=== PATIENT | female | born 1930 | race Caucasian/White ===

== ENCOUNTER → 2016-04-05 | Outpatient (CLI) | payer MEDICARE ==
[~2016-04-05] MED LIST: ASP325T PO; CLD600T; GBPN300C PO; HCTZ12.5T GT; INSASP10V; INSU100V8; IRB150T; MTP50T PO; OLME1TAB22 PO; ONDA4TAB8 PO; PGLT30T; SERT50TA PO; SIMV40TA2 PO; SMV10T; SULF1TAB35 PO
--- NOTE | 2016-04-05 13:10 | Diagnostic Imaging Report ---
PROCEDURE: US Thyroid. TECHNIQUE: Multiple real-time grayscale images were obtained of the thyroid in various projections. INDICATION: Multinodular goiter. FINDINGS: The right thyroid lobe is 5.8 x 2.8 x 3.0 cm. The left lobe is 3.5 x 1.1 x 1.3 cm. The thyroid parenchyma is heterogenous. There is a calcified nodule measuring 0.7 x 0.6 x 0.7 cm in the mid left thyroid lobe without significant change from 08/15/2015 exam. There is suggestion of calcifications in the right thyroid lobe which is also heterogenous without definite discrete lesion. Overall, the right lobe is larger than the left. IMPRESSION: Enlarged thyroid gland, with the right lobe larger than the left side and with heterogenous parenchyma. A discrete nodule measuring 7 mm with calcification seen in the mid left lobe. Dictated by: Dictated on workstation # [id number]
== END ==
LOC: RAD 09:51
PROVIDERS: ATTEND Otolaryngology Otolaryngology/Facial Plastic Surgery
DX: E04.2 Nontoxic multinodular goiter (principal)
CPT/HCPCS: 76536

== ENCOUNTER → 2016-05-14 | Outpatient (CLI) | payer MEDICARE ==
--- OUTSIDE RECORDS SUMMARY | 2016-05-14 08:37 | XMS REPORT | Continuity of Care Document ---
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 FACC, ALI FACP CCDS Ot 272.4 HYPERLIPIDEMIA NEC/NOS 05/14/2016 YECENIA MCKEON FACC, ALI FACP CCDS Ot 401.9 HYPERTENSION NOS 05/14/2016 YECENIA MCKEON FACC, ALI FACP CCDS Ot 414.00 CORON ATHEROSCLER NOS TYPE VESSEL, NATIV 05/14/2016 YECENIA MCKEON FACC, ALI FACP CCDS Ot 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 Visit Date/Time Discharge Status Pt. Type Provider Facility Loc./Unit Complaint [id number] 05/30/2015 13:05:00 2015 14:29:00 DIS Outpatient YUNIOR JOYNER MD [facility] REHAB BACK PAIN [id number] 11/30/2014 10:53:00 2014 23:59:59 CLS Outpatient YUNIOR JOYNER MD [facility] RAD SCREENING [id number] 11/15/2014 11:32:00 2014 23:59:59 CLS Outpatient YUNIOR JOYNER MD [facility] RAD HAND PAIN,BACK PAIN,SCREENING [id number] 09/15/2014 08:41:00 2014 23:59:59 CLS Outpatient TOM MARQUES [facility] LAB CAD,HLP [id number] 06/21/2014 09:59:00 2014 23:59:59 CLS Outpatient DORIAN TORRES MD [facility] RAD MULTINODULAR GOITER [id number] 03/03/2014 09:07:00 2013 23:59:59 CLS Outpatient ELVISJUAN DAVIDTOM [facility] LAB HYPERLIPADEMIA [id number] 10/26/2013 14:53:00 2013 23:59:59 CLS Outpatient SIENA JOVEL MD [facility] RAD ROUTINE [id number] 10/15/2013 07:43:00 2013 23:59:59 CLS Outpatient YECENIA MCKEON FACVlad, CHEN GRAHAM CCDS [facility] CARD HTN,HLP,CAD [id number] 09/28/2013 08:48:00 2013 23:59:59 CLS Outpatient DORIAN TORRES MD [facility] RAD THYROID NODULE [id number] 09/02/2013 08:19:00 2013 23:59:59 CLS Outpatient SIENA JOVEL MD [facility] LAB UNSPECIFIED HYPERLIPIEDIMA, DIABETES MELLITUS [id number] 09/02/2013 08:12:00 2013 23:59:59 CLS Outpatient YECENIA MCKEON FACVlad, CHEN GRAHAM CCDS [facility] LAB RETINAL HEMORRHAGE,PATENT FORAMEN OVALE,PAROXYSMAL [id number] 01/13/2013 09:37:00 2012 23:59:59 CLS Outpatient DORIAN TORRES MD [facility] LAB FATIGUE,MONITORING GATE [id number] 01/08/2013 09:38:00 2012 23:59:59 CLS Outpatient CANDIE FRANCIS APRN [facility] RAD CALCIFIED RIGHT THYROID LOBE 5 MO RECHECK [id number] 11/06/2012 07:13:00 2012 23:59:59 CLS Outpatient YECENIA MCKEON FACVlad, CHEN GRAHAM CCDS [facility] RAD HX OF MOD CAD [id number] 10/22/2012 08:10:00 2012 23:59:59 CLS Outpatient TOM MARQUES [facility] LAB CAD,HYPERLIPIDEMIA,DM, STATIN [place] [id number] 10/13/2012 13:20:00 2012 23:59:59 CLS Outpatient SIENA JOVEL MD [facility] RAD SIX MONTH FOLLOW-UP [id number] 08/21/2012 10:11:00 2012 23:59:59 CLS Outpatient DORIAN TORRES MD [facility] RAD MULTI-NODULAR GOITER [id number] 07/29/2012 10:50:00 2012 23:59:59 CLS Outpatient DORIAN TORRES MD [facility] RAD RT LOBE THYROID NODULE [id number] 04/05/2016 09:51:00 ACT Outpatient DORIAN TORRES MD [facility] RAD MULTINODULAR GOITER [id number] 02/08/2016 11:48:00 ACT Outpatient ANJU FRANCIS APRN [facility] RAD SCREENING [id number] 12/28/2015 08:00:00 ACT Outpatient TOM MARQUES [facility] LAB CAD,HYPERLIPIDEMIA,CAROTID ARTERIAL DISEASE [id number] 11/15/2015 08:07:00 ACT Outpatient TOM MARQUES [facility] CARD CAD,HTN,HLP,MALAISE [id number] 08/15/2015 11:00:00 ACT Outpatient DORIAN TORRES MD [facility] RAD MULTINODULAR GOITER [id number] 04/04/2015 07:59:00 ACT Outpatient YECENIA MCKEON FACC, CHEN GRAHAM CCDS [facility] LAB CAD,HLP [id number] 03/03/2014 09:06:00 Document Registration [id number] 06/04/2012 23:40:00 Document Registration [id number] 04/24/2012 13:04:00 Document Registration [id number] 04/08/2012 09:46:00 Document Registration [id number] 03/26/2012 07:47:00 Document Registration [id number] 12/21/2011 10:26:00 Document Registration [id number] 09/24/2011 06:31:00 Document Registration [id number] 09/19/2011 07:23:00 Document Registration [id number] 04/30/2011 13:00:00 Document Registration [id number] 03/26/2011 09:06:00 Document Registration [id number] 02/28/2011 08:42:00 Document Registration [id number] 02/22/2011 13:30:00 Document Registration [id number] 01/01/2011 06:26:00 Document Registration [id number] 08/10/2010 07:35:00 Document Registration [id number] 03/01/2010 14:55:00 Document Registration [id number] 02/22/2010 08:13:00 Document Registration [id number] 08/11/2009 07:46:00 Document Registration [id number] 02/03/2009 07:38:00 Document Registration [id number] 01/13/2009 13:37:00 Document Registration [id number] 12/06/2008 11:16:00 Document Registration
[2016-05-14 08:45] LABS: BASOPHILS % (AUTO) 0 % (0-10); EOSINOPHILS # (AUTO) 0.1 10^3/uL (0.0-0.3); EOSINOPHILS % (AUTO) 1 % (0-10); LYMPHOCYTES # (AUTO) 0.9 X 10^3 (1.0-4.0); LYMPHOCYTES % (AUTO) 15 % (12-44); MEAN CORPUSCULAR HEMOGLOBIN 30 PG (25-34); MEAN CORPUSCULAR HGB CONC 34 G/DL (32-36); MEAN CORPUSCULAR VOLUME 89 FL (80-99); MEAN PLATELET VOLUME 9.3 FL (7.4-10.4); MONOCYTES # (AUTO) 0.4 X 10^3 (0.0-1.0); MONOCYTES % (AUTO) 7 % (0-12); NEUTROPHILS # (AUTO) 4.7 X 10^3 (1.8-7.8); NEUTROPHILS % (AUTO) 77 % (42-75); PLATELET COUNT 224 10^3/uL (130-400); RED BLOOD COUNT 4.28 10^6/uL (4.35-5.85); RED CELL DISTRIBUTION WIDTH 12.4 % (10.0-14.5); WHITE BLOOD COUNT 6.1 10^3/uL (4.3-11.0)
[2016-05-14 09:08] LABS: ALANINE AMINOTRANSFERASE 18 U/L (0-55); ALBUMIN 4.1 G/DL (3.2-4.5); ANION GAP 9 MMOL/L (5-14); ASPARTATE AMINO TRANSFERASE 22 U/L (5-34); BILIRUBIN,TOTAL 0.6 MG/DL (0.1-1.0); BLOOD UREA NITROGEN 16 MG/DL (7-18); BUN/CREATININE RATIO 21; CALCIUM 9.2 MG/DL (8.5-10.1); CARBON DIOXIDE 27 MMOL/L (21-32); CHLORIDE 102 MMOL/L (98-107); CHOLESTEROL 172 MG/DL (< 200); CREATININE SERUM 0.78 MG/DL (0.60-1.30); DIRECT LDL 92 MG/DL (1-129); GFR ESTIMATED > 60; GLUCOSE 227 MG/DL (70-105); POTASSIUM 4.5 MMOL/L (3.6-5.0); SODIUM 138 MMOL/L (135-145); TOTAL PROTEIN 6.5 G/DL (6.4-8.2); TRIGLYCERIDES 83 MG/DL (<150); VLDL CHOLESTEROL 17 MG/DL (5-40)
== END ==
LOC: LAB 08:32
PROVIDERS: ATTEND Family Medicine
DX: I10 Essential (primary) hypertension (principal); E11.65 Type 2 diabetes mellitus with hyperglycemia; E03.9 Hypothyroidism, unspecified
CPT/HCPCS: 36415; 80053; 80061; 83036; 84443; 85025

== ENCOUNTER 2016-06-18 03:05 | Emergency (ER) | payer MEDICARE ==
[~2016-06-18] VITALS: Ht 157.5 cm; Wt 54.4 kg
[~2016-06-18 03:05] MED LIST changes: -ONDA4TAB8 PO; -SULF1TAB35 PO
--- NOTE | 2016-06-18 03:15 | ED General ---
General Stated Complaint: BS Source of Information: Patient Exam Limitations: No Limitations History of Present Illness Time Seen by Provider: 03:11 Initial Comments Patient presents to the ER by EMS after a complaint of waking up at 2 in the morning to check her blood sugar and noticed it was 80. She tried taking some orange juice and then had nausea and threw up. She was unable to keep down arthur crackers and peanut butter either. She called EMS they checked her blood sugar found to be 69. The patient was also feeling some pain in her left ankle from a fall while walking down the steps of her son's house at [employer] dinner yesterday afternoon. Patient's nausea is resolved her pain is under control and she feels she is doing better. She remarks when she fell she did not have any loss consciousness nor hit her head. Allergies and Home Medications Allergies Coded Allergies: NATDavid Known Allergies (Verified Allergy, Unknown, 08/20/06) Home Medications Aspirin 325 Mg Tablet, 81 MG PO EVERY OTHER DAY, (Reported) Calcium Carbonate/Vitamin D3 1 Tab Tablet, (Reported) Gabapentin 300 Mg Cap, 100 MG PO DAILY, (Reported) Hydrochlorothiazide 12.5 Mg Cap, 12.5 MG GT, (Reported) Insulin Glargine,Hum.rec.anlog 100 U/Ml Vial, 18 UNIT MORNING, (Reported) Insulin Human Lispro 100 U/Ml Vial, (Reported) Metoprolol Tartrate 50 Mg Tablet, 1 EACH PO BID, (Reported) Olmesartn/Hydrochlorothiazide 1 Tab Tablet, 1 TAB PO, (Reported) Sertraline Hcl 50 Mg Tablet, 0 PO DAILY, (Reported) Simvastatin 40 Mg Tablet, 40 MG PO BID, (Reported) Constitutional: No chills, No diaphoresis, No fever, No malaise EENTM: No ear discharge, No eye pain Respiratory: No cough, No short of breath Cardiovascular: No chest pain, No edema Gastrointestinal: No abdominal pain, No constipation, No nausea Genitourinary: dysuria, No frequency Musculoskeletal: joint pain (left foot), No joint swelling Skin: No pruritus, No rash Psychiatric/Neurological: Denies Headache, Denies Numbness, Paresthesia (Hx Peripheral Neuropathy) Past Vvsmwzc-Oxoetm-Xmdvwo Hx Patient Social History Alcohol Use: Denies Use Recreational Drug Use: No Smoking Status: Never a Smoker Immunizations Up To Date Tetanus Booster (TDap): Less than 5yrs Date of Pneumonia Vaccine: Dec 06, 2011 Date of Influenza Vaccine: Dec 06, 2011 Surgeries HX Surgeries: Yes Respiratory Hx Respiratory Disorders: No Cardiovascular Hx Cardiac Disorders: Yes Neurological Hx Neurological Disorders: No Genitourinary Hx Genitourinary Disorders: No Gastrointestinal Hx Gastrointestinal Disorders: No Musculoskeletal Hx Musculoskeletal Disorders: No Musculoskeletal Disorders: Chronic Back Pain Endocrine Hx Endocrine Disorders: Yes Endocrine Disorders: Diabetes, Insulin dep HEENT HX ENT Disorders: Yes (RETINOPATHY, 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 Hearing Impairment: Bilateral Hearing Aide Cancer Hx Cancer: No Psychosocial Hx Psychiatric Problems: No Behavioral Health Disorders: Anxiety, Depression Integumentary HX Skin/Integumentary Disorder: No Blood Transfusions Hx Blood Disorders: Yes (ANEMIA) Adverse Reaction to a Blood Tr: No Physical Exam Vital Signs Vital Sign - Last 12Hours 06/18/16 03:05 Temp 98.6 Pulse 68 Resp 20 B/P (MAP) 133/69 Pulse Ox 99 O2 Delivery Room Air Capillary Refill : General Appearance: No Apparent Distress, WD/WN Eyes: Bilateral Eye EOMI, Bilateral Eye Normal Inspection HEENT: PERRL/EOMI, Normal ENT Inspection, Pharynx Normal Neck: Non Tender, Supple Respiratory: Chest Non Tender, Lungs Clear, Normal Breath Sounds Cardiovascular: Regular Rate, Rhythm, No Edema Gastrointestinal: Normal Bowel Sounds, No Organomegaly Back: No CVA Tenderness, No Vertebral Tenderness Extremity: Normal Capillary Refill, Normal Inspection, No Pedal Edema, Other ( tenderness at the left ankle) Neurologic/Psychiatric: Alert, Oriented x3 Skin: Normal Color, Warm/Dry Progress/Results/Core Measures Results/Orders Lab Results Laboratory Tests Test 06/18/16 03:11 06/18/16 03:20 Range/Units White Blood Count 9.5 4.3-11.0 10^3/uL Red Blood Count 4.52 4.35-5.85 10^6/uL Hemoglobin 13.6 11.5-16.0 G/DL Hematocrit 40 35-52 % Mean Corpuscular Volume 88 80-99 FL Mean Corpuscular Hemoglobin 30 25-34 PG Mean Corpuscular Hemoglobin Concent 34 32-36 G/DL Red Cell Distribution Width 12.3 10.0-14.5 % Platelet Count 218 130-400 10^3/uL Mean Platelet Volume 9.7 7.4-10.4 FL Neutrophils (%) (Auto) 84 H 42-75 % Lymphocytes (%) (Auto) 7 L 12-44 % Monocytes (%) (Auto) 7 0-12 % Eosinophils (%) (Auto) 1 0-10 % Basophils (%) (Auto) 0 0-10 % Neutrophils # (Auto) 8.0 H 1.8-7.8 X 10^3 Lymphocytes # (Auto) 0.7 L 1.0-4.0 X 10^3 Monocytes # (Auto) 0.7 0.0-1.0 X 10^3 Eosinophils # (Auto) 0.1 0.0-0.3 10^3/uL Basophils # (Auto) 0.0 0.0-0.1 10^3/uL Neutrophils % (Manual) 89 % Lymphocytes % (Manual) 5 % Monocytes % (Manual) 4 % Eosinophils % (Manual) 2 % Basophils % (Manual) 0 % Band Neutrophils 0 % Blood Morphology Comment NORMAL Sodium Level 140 135-145 MMOL/L Potassium Level 4.2 3.6-5.0 MMOL/L Chloride Level 103 98-107 MMOL/L Carbon Dioxide Level 25 21-32 MMOL/L Anion Gap 12 5-14 MMOL/L Blood Urea Nitrogen 21 H 7-18 MG/DL Creatinine 0.84 0.60-1.30 MG/DL Estimat Glomerular Filtration Rate > 60 BUN/Creatinine Ratio 25 Glucose Level 87 70-105 MG/DL Calcium Level 9.3 8.5-10.1 MG/DL Total Bilirubin 0.6 0.1-1.0 MG/DL Aspartate Amino Transf (AST/SGOT) 21 5-34 U/L Alanine Aminotransferase (ALT/SGPT) 15 0-55 U/L Alkaline Phosphatase 83 40-136 U/L Total Protein 6.9 6.4-8.2 G/DL Albumin 4.4 3.2-4.5 G/DL Urine Color YELLOW Urine Clarity CLEAR Urine pH 7 5-9 Urine Specific [place] 1.005 L 1.016-1.022 Urine Protein 1+ H NEGATIVE Urine Glucose (UA) NEGATIVE NEGATIVE Urine Ketones NEGATIVE NEGATIVE Urine Nitrite NEGATIVE NEGATIVE Urine Bilirubin NEGATIVE NEGATIVE Urine Urobilinogen NORMAL NORMAL MG/DL Urine Leukocyte Esterase 3+ H NEGATIVE Urine RBC (Auto) NEGATIVE NEGATIVE Urine RBC NONE /HPF Urine WBC 5-10 H /HPF Urine Squamous Epithelial Cells RARE /HPF Urine Crystals NONE /LPF Urine Bacteria TRACE /HPF Urine Casts NONE /LPF Urine Mucus SMALL H /LPF Urine Culture Indicated YES My Orders Orders - YOUSIF BLANCO Cbc With Automated Diff (06/18/16 03:15) Comprehensive Metabolic Panel (06/18/16 03:15) Ua Culture If Indicated (06/18/16 03:15) Ankle, Left, 3 Views (06/18/16 03:15) Accucheck Stat ONCE (06/18/16 03:17) Manual Differential (06/18/16 03:11) Urine Culture (06/18/16 03:20) Vital Signs/I&O Vital Sign - Last 12Hours 06/18/16 03:05 Temp 98.6 Pulse 68 Resp 20 B/P (MAP) 133/69 Pulse Ox 99 O2 Delivery Room Air Progress Note : Time: 03:56 Progress Note X-ray of the left ankle unremarkable. She does appear to have a UTI that may be the cause of her blood glucose lability. we will treat her appropriately. Departure Impression Impression: Primary Impression: UTI (urinary tract infection) Qualified Codes: N30.00 - Acute cystitis without hematuria Additional Impression: Left ankle pain Qualified Codes: M25.572 - Pain in left ankle and joints of left foot Disposition: 01 HOME, SELF-CARE Condition: Stable Departure-Patient Inst. Decision time for Depature: 03:57 Referrals: YUNIOR JOYNER MD (PCP/Family) Primary Care Physician Add. Discharge Instructions: Your blood sugars may be difficult to control when you have a urinary tract infection. We will start you on an antibiotic that you should take to completion. You should follow up with your physician in one to 2 weeks or sooner as necessary if you have new or concerning symptoms. Her ankle does not appear to be fractured on the x-ray but however he may have a strain/sprain which will take weeks to heal. You should use rest, ice for 20 minutes 4 times a day as needed, compression dressing and elevate above the level of your heart when not using your ankle. Scripts Sulfamethoxazole/Trimethoprim (Bactrim Ds Tablet) 1 Each Tablet 1 EACH PO BID for 7 Days, #14 TAB 0 Refills Prov: YOUSIF BLANCO 06/18/16 Copy Copies To 1: YUNIOR JOYNER MD, TITUS J Jun 18, 2016 03:15
[2016-06-18 03:23] LABS: BASOPHILS % (AUTO) 0 % (0-10); EOSINOPHILS # (AUTO) 0.1 10^3/uL (0.0-0.3); EOSINOPHILS % (AUTO) 1 % (0-10); LYMPHOCYTES # (AUTO) 0.7 X 10^3 (1.0-4.0); LYMPHOCYTES % (AUTO) 7 % (12-44); MEAN CORPUSCULAR HEMOGLOBIN 30 PG (25-34); MEAN CORPUSCULAR HGB CONC 34 G/DL (32-36); MEAN CORPUSCULAR VOLUME 88 FL (80-99); MEAN PLATELET VOLUME 9.7 FL (7.4-10.4); MONOCYTES # (AUTO) 0.7 X 10^3 (0.0-1.0); MONOCYTES % (AUTO) 7 % (0-12); NEUTROPHILS % (AUTO) 84 % (42-75); PLATELET COUNT 218 10^3/uL (130-400); RED BLOOD COUNT 4.52 10^6/uL (4.35-5.85); RED CELL DISTRIBUTION WIDTH 12.3 % (10.0-14.5); WHITE BLOOD COUNT 9.5 10^3/uL (4.3-11.0)
[2016-06-18 03:28] LABS: BILIRUBIN,URINE NEGATIVE (NEGATIVE); KETONES,URINE NEGATIVE (NEGATIVE); LEUKOCYTE ESTERASE ,URINE 3+ (NEGATIVE); NITRITE,URINE NEGATIVE (NEGATIVE); PH,URINE 7 (5-9); PROTEIN,URINE 1+ (NEGATIVE); UROBILINOGEN,URINE NORMAL (NORMAL)
[2016-06-18 03:35] LABS: SQUAMOUS EPITHELIAL CELL,UR RARE /HPF
[2016-06-18 03:38] LABS: ALANINE AMINOTRANSFERASE 15 U/L (0-55); ALBUMIN 4.4 G/DL (3.2-4.5); ANION GAP 12 MMOL/L (5-14); ASPARTATE AMINO TRANSFERASE 21 U/L (5-34); BILIRUBIN,TOTAL 0.6 MG/DL (0.1-1.0); BLOOD UREA NITROGEN 21 MG/DL (7-18); BUN/CREATININE RATIO 25; CALCIUM 9.3 MG/DL (8.5-10.1); CARBON DIOXIDE 25 MMOL/L (21-32); CHLORIDE 103 MMOL/L (98-107); CREATININE SERUM 0.84 MG/DL (0.60-1.30); GFR ESTIMATED > 60; GLUCOSE 87 MG/DL (70-105); POTASSIUM 4.2 MMOL/L (3.6-5.0); SODIUM 140 MMOL/L (135-145); TOTAL PROTEIN 6.9 G/DL (6.4-8.2)
[2016-06-18 03:40] LABS: BAND NEUTROPHILS 0 %; BASOPHILS % (MANUAL) 0 %; EOSINOPHILS % (MANUAL) 2 %; LYMPHOCYTES % (MANUAL) 5 %; NEUTROPHILS % (MANUAL) 89 %
[2016-06-18] MEDS ORDERED: SULF1TAB35 PO (04:07)
[2016-06-18] MEDS ORDERED: RX-TRIMETH/SULFA. 160-800 MG (BACTRIM DS) TAB PPK#2 PO ONE (04:15)
[2016-06-18] MEDS ORDERED: RX-ONDANSETRON 4 MG ODT (ZOFRAN) PPK #4 ONE (04:20)
[2016-06-18] MEDS ORDERED: RX-ONDANSETRON 4 MG ODT (ZOFRAN) PPK #4 PO STA (04:22)
[2016-06-18] MEDS ORDERED: ONDANSETRON 4 MG/2 ML (SDV) Z0FRAN ONE (04:27)
[2016-06-18] MEDS ORDERED: ONDANSETRON 4 MG/2 ML (SDV) Z0FRAN IM ONE (04:30)
[2016-06-18 04:55] VITALS: BP 107/46
[2016-06-18] MEDS ORDERED: ONDA4TAB8 PO (05:00)
--- NOTE | 2016-06-18 07:50 | Diagnostic Imaging Report ---
INDICATION: Twisting injury with ankle pain. FINDINGS: There is no disruption of the ankle mortise. No fracture or dislocation identified. No focal soft tissue swelling could be discerned. IMPRESSION: No acute abnormality radiographically apparent. Dictated by: Dictated on workstation # [id number]
== END 2016-06-18 04:55 | disposition home or self-care (01) ==
LOC: EDUNIT# 03:07 → ER 03:09
DX: E11.649 Type 2 diabetes mellitus with hypoglycemia without coma (principal); S99.912A Unspecified injury of left ankle, initial encounter; Z79.4 Long term (current) use of insulin; Z79.82 Long term (current) use of aspirin; W10.9XXA Fall (on) (from) unspecified stairs and steps, initial encounter; Y92.009 Unspecified place in unspecified non-institutional (private) residence as the place of occurrence of the external cause; Y99.8 Other external cause status
CPT/HCPCS: 36415; 73610; 80053; 81000; 82962; 85007; 85027; 87077; 87088; 87186; 96372; 99283

== ENCOUNTER → 2016-10-01 | Outpatient (CLI) | payer MEDICARE ==
[~2016-10-01] MED LIST changes: +ONDA4TAB8 PO; +SULF1TAB35 PO
--- NOTE | 2016-10-01 15:14 | Diagnostic Imaging Report ---
INDICATION: Cough for two months, no improvement with antibiotics. DISCUSSION: Two views of the chest were obtained, comparison 06/04/2012. The lungs remain hyperinflated consistent underlying COPD. No focal consolidation, pleural fluid, or pneumothorax. Age-related degenerative changes are noted throughout the thoracic spine. Stable normal heart size. IMPRESSION: 1. Stable changes of chronic lung disease. Dictated by: Dictated on workstation # [id number]
== END ==
LOC: RAD 14:43
PROVIDERS: ATTEND Nurse Practitioner Family
DX: J98.4 Other disorders of lung (principal)
CPT/HCPCS: 71020

== ENCOUNTER 2016-10-22 10:26 | Outpatient (RCR) | payer MEDICARE | END 2016-12-01 00:46 | disposition home or self-care (01) | LOC: DSME 10:26 | PROVIDERS: ATTEND Family Medicine | DX: E10.9 Type 1 diabetes mellitus without complications (principal); I10 Essential (primary) hypertension ==

== ENCOUNTER → 2016-10-22 | Outpatient (CLI) | payer MEDICARE ==
--- NOTE | 2016-10-22 13:19 | Diagnostic Imaging Report ---
PROCEDURE: US Thyroid. TECHNIQUE: Multiple real-time grayscale images were obtained of the thyroid in various projections. INDICATION: Thyroid nodule followup. COMPARISON: 04/05/2016. FINDINGS: The size and echogenicity of the thyroid lobes is stable and unchanged. The right thyroid lobe is slightly larger compared to the left. The isthmus is unremarkable. There is no new lesion identified. Partially calcified nodule is seen in the upper left thyroid lobe measuring 7 mm. There is no change. IMPRESSION: Stable thyroid nodule. No interval change identified. Dictated by: Dictated on workstation # [id number]
== END ==
LOC: RAD 10:27
PROVIDERS: ATTEND Family Medicine
DX: E04.1 Nontoxic single thyroid nodule (principal)
CPT/HCPCS: 76536

== ENCOUNTER 2017-01-13 20:55 | Emergency (ER) | payer MEDICARE ==
[~2017-01-13] VITALS: Ht 167.6 cm; Wt 72.6 kg
[2017-01-13 21:10] LABS: BASOPHILS % (AUTO) 0 % (0-10); EOSINOPHILS # (AUTO) 0.1 10^3/uL (0.0-0.3); EOSINOPHILS % (AUTO) 2 % (0-10); LYMPHOCYTES # (AUTO) 1.2 X 10^3 (1.0-4.0); LYMPHOCYTES % (AUTO) 29 % (12-44); MEAN CORPUSCULAR HEMOGLOBIN 31 PG (25-34); MEAN CORPUSCULAR HGB CONC 34 G/DL (32-36); MEAN CORPUSCULAR VOLUME 91 FL (80-99); MEAN PLATELET VOLUME 9.5 FL (7.4-10.4); MONOCYTES # (AUTO) 0.6 X 10^3 (0.0-1.0); MONOCYTES % (AUTO) 13 % (0-12); NEUTROPHILS # (AUTO) 2.4 X 10^3 (1.8-7.8); NEUTROPHILS % (AUTO) 56 % (42-75); PLATELET COUNT 190 10^3/uL (130-400); RED BLOOD COUNT 3.69 10^6/uL (4.35-5.85); WHITE BLOOD COUNT 4.3 10^3/uL (4.3-11.0)
[2017-01-13 21:40] LABS: ALANINE AMINOTRANSFERASE 19 U/L (0-55); ALBUMIN 3.7 GM/DL (3.2-4.5); ANION GAP 10 MMOL/L (5-14); ASPARTATE AMINO TRANSFERASE 25 U/L (5-34); BILIRUBIN,TOTAL 0.3 MG/DL (0.1-1.0); BLOOD UREA NITROGEN 27 MG/DL (7-18); BUN/CREATININE RATIO 32; CALCIUM 8.9 MG/DL (8.5-10.1); CARBON DIOXIDE 26 MMOL/L (21-32); CHLORIDE 102 MMOL/L (98-107); CREATININE SERUM 0.84 MG/DL (0.60-1.30); GFR ESTIMATED > 60; GLUCOSE 184 MG/DL (70-105); POTASSIUM 3.5 MMOL/L (3.6-5.0); SODIUM 138 MMOL/L (135-145)
[2017-01-13 22:59] LABS: BILIRUBIN,URINE NEGATIVE (NEGATIVE); KETONES,URINE NEGATIVE (NEGATIVE); LEUKOCYTE ESTERASE ,URINE 1+ (NEGATIVE); NITRITE,URINE NEGATIVE (NEGATIVE); PH,URINE 6.5 (5-9); PROTEIN,URINE 1+ (NEGATIVE); UROBILINOGEN,URINE 1 MG/DL (NORMAL)
--- NOTE | 2017-01-13 23:13 | ED General ---
General Chief Complaint: Glucose Problems Stated Complaint: BS Nursing Triage Note: to ER by [facility] from home with reports of low blood sugar. Patient reports that her blood sugar before she ate dinner was 60, so she did not take her insulin until after she ate. Patient reports that she ate a good sized meal , and then took her insulin like she has been instructed. Patient reports that she has not felt well all day, and has been tired. 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 EMS reports blood sugar improved from 27 to 271 with D50. Patient is now alert and oriented on arrival. Patient report generally feeling tired lately. She has had a mild cough but no fevers. Allergies and Home Medications Allergies Coded Allergies: NATANo Known Allergies (Verified Allergy, Unknown, 08/20/06) Home Medications Aspirin 325 Mg Tablet, 81 MG PO EVERY OTHER DAY, (Reported) Calcium Carbonate/Vitamin D3 1 Tab Tablet, (Reported) Gabapentin 300 Mg Cap, 100 MG PO DAILY, (Reported) Hydrochlorothiazide 12.5 Mg Cap, 12.5 MG GT, (Reported) Insulin Glargine,Hum.rec.anlog 100 U/Ml Vial, 18 UNIT MORNING, (Reported) Insulin Human Lispro 100 U/Ml Vial, (Reported) Metoprolol Tartrate 50 Mg Tablet, 1 EACH PO BID, (Reported) Olmesartn/Hydrochlorothiazide 1 Tab Tablet, 1 TAB PO, (Reported) Ondansetron 4 Mg Tab.rapdis, 4 MG PO Q6H PRN for NAUSEA/VOMITING-1ST LINE, #20 Ref 0 Prescribed by: YOUSIF BLANCO on 06/18/16 0500 Sertraline Hcl 50 Mg Tablet, 0 PO DAILY, (Reported) Simvastatin 40 Mg Tablet, 40 MG PO BID, (Reported) Sulfamethoxazole/Trimethoprim 1 Each Tablet, 1 EACH PO BID for 7 Days, #14 Ref 0 Prescribed by: YOUSIF BLANCO on 06/18/16 0407 Constitutional: see HPI EENTM: no symptoms reported Respiratory: see HPI Cardiovascular: no symptoms reported Gastrointestinal: no symptoms reported Genitourinary: no symptoms reported Musculoskeletal: no symptoms reported Skin: no symptoms reported Psychiatric/Neurological: No Symptoms Reported Hematologic/Lymphatic: No Symptoms Reported Immunological/Allergic: no symptoms reported Past Obbkhnb-Dhazye-Mrgrtd Hx Patient Social History Alcohol Use: Denies Use Recreational Drug Use: No Smoking Status: Never a Smoker 2nd Hand Smoke Exposure: No Recent Foreign Travel: No Contact w/Someone Who Travel: No Recent Infectious Disease Expo: No Recent Hopitalizations: No Physical Abuse: No Sexual Abuse: No Mistreated: No Fear: No Immunizations Up To Date Tetanus Booster (TDap): Less than 5yrs PED Vaccines UTD: Yes Date of Pneumonia Vaccine: Dec 06, 2011 Date of Influenza Vaccine: Dec 06, 2011 Surgeries History of Surgeries: Yes (APPY) Respiratory History of Respiratory Disorde: No Cardiovascular History of Cardiac Disorders: Yes Cardiac Disorders: Coronary Artery Disease, Hypertension Neurological History of Neurological Disord: No Genitourinary History of Genitourinary Disor: No Gastrointestinal History of Gastrointestinal Di: No Musculoskeletal History of Musculoskeletal Dis: Yes Musculoskeletal Disorders: Chronic Back Pain Endocrine History of Endocrine Disorders: Yes Endocrine Disorders: Diabetes, Insulin dep HEENT History of HEENT Disorders: Yes Loss of Vision: Left Hearing Impairment: Bilateral Hearing Aide Cancer History of Cancer: No Psychosocial History of Psychiatric Problem: No Behavioral Health Disorders: Anxiety, Depression Suicide Risk Score: 0 Integumentary History of Skin or Integumenta: No Blood Transfusions History of Blood Disorders: Yes (ANEMIA) Adverse Reaction to a Blood Tr: No Physical Exam Vital Signs Vital Sign - Last 12Hours 01/13/17 21:00 Temp 98.4 Pulse 55 Resp 16 B/P (MAP) 154/68 Pulse Ox 98 O2 Delivery Room Air Capillary Refill : Less Than 3 Seconds General Appearance: No Apparent Distress, WD/WN HEENT: PERRL/EOMI, Normal ENT Inspection, Pharynx Normal Neck: Normal Inspection Respiratory: Lungs Clear, Normal Breath Sounds, No Accessory Muscle Use, No Respiratory Distress Cardiovascular: Regular Rate, Rhythm, No Edema, No Murmur Gastrointestinal: Normal Bowel Sounds, Non Tender, Soft Extremity: Normal Capillary Refill, Normal Inspection, No Pedal Edema Neurologic/Psychiatric: Alert, Oriented x3, No Motor/Sensory Deficits, Normal 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, 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 Skin: Normal Color, Warm/Dry Progress/Results/Core Measures Results/Orders Lab Results Laboratory Tests Test 01/13/17 21:00 01/13/17 21:47 01/13/17 22:50 01/13/17 23:06 Range/Units White Blood Count 4.3 4.3-11.0 10^3/uL Red Blood Count 3.69 L 4.35-5.85 10^6/uL Hemoglobin 11.4 L 11.5-16.0 G/DL Hematocrit 34 L 35-52 % Mean Corpuscular Volume 91 80-99 FL Mean Corpuscular Hemoglobin 31 25-34 PG Mean Corpuscular Hemoglobin Concent 34 32-36 G/DL Red Cell Distribution Width 12.0 10.0-14.5 % Platelet Count 190 130-400 10^3/uL Mean Platelet Volume 9.5 7.4-10.4 FL Neutrophils (%) (Auto) 56 42-75 % Lymphocytes (%) (Auto) 29 12-44 % Monocytes (%) (Auto) 13 H 0-12 % Eosinophils (%) (Auto) 2 0-10 % Basophils (%) (Auto) 0 0-10 % Neutrophils # (Auto) 2.4 1.8-7.8 X 10^3 Lymphocytes # (Auto) 1.2 1.0-4.0 X 10^3 Monocytes # (Auto) 0.6 0.0-1.0 X 10^3 Eosinophils # (Auto) 0.1 0.0-0.3 10^3/uL Basophils # (Auto) 0.0 0.0-0.1 10^3/uL Sodium Level 138 135-145 MMOL/L Potassium Level 3.5 L 3.6-5.0 MMOL/L Chloride Level 102 98-107 MMOL/L Carbon Dioxide Level 26 21-32 MMOL/L Anion Gap 10 5-14 MMOL/L Blood Urea Nitrogen 27 H 7-18 MG/DL Creatinine 0.84 0.60-1.30 MG/DL Estimat Glomerular Filtration Rate > 60 BUN/Creatinine Ratio 32 Glucose Level 184 H 70-105 MG/DL Calcium Level 8.9 8.5-10.1 MG/DL Total Bilirubin 0.3 0.1-1.0 MG/DL Aspartate Amino Transf (AST/SGOT) 25 5-34 U/L Alanine Aminotransferase (ALT/SGPT) 19 0-55 U/L Alkaline Phosphatase 75 40-136 U/L Total Protein 6.0 L 6.4-8.2 GM/DL Albumin 3.7 3.2-4.5 GM/DL Glucometer 132 H 183 H 70-110 MG/DL Urine Color YELLOW Urine Clarity CLEAR Urine pH 6.5 5-9 Urine Specific [place] 1.010 L 1.016-1.022 Urine Protein 1+ H NEGATIVE Urine Glucose (UA) 2+ H NEGATIVE Urine Ketones NEGATIVE NEGATIVE Urine Nitrite NEGATIVE NEGATIVE Urine Bilirubin NEGATIVE NEGATIVE Urine Urobilinogen 1 NORMAL MG/DL Urine Leukocyte Esterase 1+ H NEGATIVE Urine RBC (Auto) NEGATIVE NEGATIVE Urine RBC NONE /HPF Urine WBC 2-5 /HPF Urine Crystals NONE /LPF Urine Bacteria NEGATIVE /HPF Urine Casts NONE /LPF Urine Mucus NEGATIVE /LPF Urine Culture Indicated NO My Orders Orders - ATUL BERGMAN MD Cbc With Automated Diff (01/13/17 21:03) Comprehensive Metabolic Panel (01/13/17 21:03) Ua Culture If Indicated (01/13/17 21:03) Chest 1 View, Ap/Pa Only (01/13/17 22:15) Vital Signs/I&O Vital Sign - Last 12Hours 01/13/17 01/13/17 21:00 23:18 Temp 98.4 98.4 Pulse 55 53 Resp 16 18 B/P (MAP) 154/68 Pulse Ox 98 100 O2 Delivery Room Air Room Air Blood Pressure Mean: 96 Point of Care Testing Finger Stick Blood Glucose: 183 Blood Glucose Action Taken: DR AND RN NOTIFIED Progress Note : Progress Note Patient remained alert and oriented throughout her ER stay. Blood sugar remained stable. She was able to eat a partial medial and she was discharged into the care of her son. Diagnostic Imaging Diagonstic Imaging: Xray Plain Films/CT/US/NM/MRI: chest Comments Fibrotic and/or calcific appearance to the right lower lung, a little worse than prior. X-ray viewed by me and compared with prior. Report not yet available. Departure Impression Impression: Primary Impression: Hypoglycemia associated with diabetes Additional Impression: Weakness Disposition: 01 HOME, SELF-CARE Condition: Improved Departure-Patient Inst. Decision time for Depature: 23:12 Referrals: YUNIOR RECINOS MD (PCP/Family) Primary Care Physician Patient Instructions: Diabetes Type 2 (DC) Add. Discharge Instructions: Follow-up with Dr. RECINOS as soon as possible. Check your blood sugar fasting in the mornings and 2 hours after each meal. Share these blood sugars with Dr. Recinos at your follow-up appointment. Call Dr. RECINOS or return to the emergency room if you have further problems with your blood sugars or any other worsening problems. Eat a well-balanced diet with at least 3 meals per day. Discussed your poor appetite with Dr. Recinos. All discharge instructions reviewed with patient and/or family. Voiced understanding. Copy Copies To 1: YUNIOR RECINOS MD, JOSHUA T MD Jan 13, 2017 23:13
[2017-01-13 23:18] VITALS: BP 152/66
--- NOTE | 2017-01-14 05:36 | Diagnostic Imaging Report ---
INDICATION: Hypoglycemia. COMPARISON: 10/01/2016 FINDINGS: Single frontal radiographic view of the chest was obtained and demonstrates normal cardiac silhouette and pulmonary vasculature. There is 6 mm micronodular opacity within the right upper lung field. Otherwise, lungs are clear. There is no focal consolidation, large effusion, nor pneumothorax. Bony structures show no gross acute abnormalities. IMPRESSION: 1. No evidence of failure or focal infiltrate. 2. Micronodular opacity within the right upper lung field. Further characterization with CT chest is recommended. Dictated by: Dictated on workstation # [id number]
== END 2017-01-13 23:18 | disposition home or self-care (01) ==
LOC: EDUNIT# 20:55 → ER 20:57
DX: E11.649 Type 2 diabetes mellitus with hypoglycemia without coma (principal); I25.10 Atherosclerotic heart disease of native coronary artery without angina pectoris; I10 Essential (primary) hypertension; E11.9 Type 2 diabetes mellitus without complications; F41.9 Anxiety disorder, unspecified; F32.9 Major depressive disorder, single episode, unspecified; Z79.82 Long term (current) use of aspirin; Z79.4 Long term (current) use of insulin
CPT/HCPCS: 36415; 71010; 80053; 81000; 82962; 85025; 99283

== ENCOUNTER 2017-03-31 10:13 | Observation (INO) | payer MEDICARE ==
[~2017-03-31] VITALS: Ht 157.5 cm; Wt 56.7 kg
[2017-03-31] MEDS ORDERED: TRAM50TA2 PO (10:35)
[2017-03-31] MEDS ORDERED: NITR100C10 PO (10:35)
--- OUTSIDE RECORDS SUMMARY | 2017-03-31 11:53 | XMS REPORT | CCD ---
Author Author [facility] Organization [facility] Address [address] [place] [address] Phone Care Team Providers Care Physician Assistant Surgery Name Role Phone PP Unavailable CCM Unavailable Summary Purpose Interface Exchange Insurance Providers Payer name Policy type / Coverage type Covered alliance party ID Effective Begin Date Effective End Date WPS Medicare Part B Medicare Part B [id number] Unknown Unknown [facility] Medicare Part B [id number] Unknown Unknown Family history Mother Diagnosis Age At Onset No Family Disease Entered N/A Father Diagnosis Age At Onset Heart Attack Unknown Diabetes Unknown Social History Social History Element Codes Description Effective Dates Number of children Unknown 2 Sons, 5 grandchildren, 11 great grandchildren 01/08/2017 Marital status Unknown [place] in 201606/06/[address]: 187176502 Never smoker 08/13/[address]: 912831913 Never drinks alcohol 08/13/2014 Allergies, Adverse Reactions, Alerts Allergies, Adverse Reactions, Alerts data not found Past Medical History Illness Codes Condition Status Onset Date Resolved Date Sciatica Unknown Active 03/26/2017 Unknown Low back pain ICD-9: 724.2 ICD-10: M54.5 Active 03/26/2017 Unknown Sciatica, right side ICD-9: 724.3 ICD-10: M54.31 Active 03/26/2017 Unknown Essential (primary) hypertension ICD-9: 401.9 ICD-10: I10 Active 08/12/2014 Unknown Type 1 diabetes mellitus without complications ICD-9: 250.00 ICD-10: E10.9 Active 08/12/2014 Unknown Fever, unspecified ICD -9: 780.60 ICD-10: R50.9 Active 04/03/2016 Unknown Frequency of micturition ICD-9: 788.41 ICD-10: R35.0 Active 01/16/2017 Unknown Weakness ICD-9: 780.79 ICD-10: R53.1 Active 01/16/2017 Unknown Actinic keratosis ICD- 9: 702.0 ICD-10: L57.0 Active 10/16/2016 Unknown 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 Active 10/16/2016 Unknown Hypothryroidism Unknown Active 10/09/2016 Unknown Hypothyroidism, unspecified ICD-9: 244.9 ICD-10: E03.9 Active 10/09/2016 Unknown Chronic obstructive pulmonary disease with (acute) exacerbation ICD-9: 491.21 ICD-10: J44.1 Active 10/01/2016 Unknown Cough ICD-9: 786.2 ICD-10: R05 Active 09/27/2016 Unknown Acute bronchitis, unspecified ICD-9: 466.0 ICD-10: J20.9 Active 09/27/2016 Unknown Encounter for general adult medical examination with abnormal findings ICD-9: V70.0 ICD-10: Z00.01 Active 07/10/2016 Unknown Acute laryngopharyngitis ICD-9: 465.0 ICD-10: J06.0 Active 04/03/2016 Unknown Other allergic rhinitis ICD-9: 477.8 ICD-10: J30.89 Active 04/03/2016 Unknown Mixed hyperlipidemia ICD-9: 272.4 ICD-10: E78.2 Active 08/12/2014 Unknown Encounter for screening mammogram for malignant neoplasm of breast ICD-9: V76.12 ICD-10: Z12.31 Active 01/31/2016 Unknown Pain in right hand ICD -9: 729.5 ICD-10: M79.641 Active 11/14/2014 Unknown Other specified dorsopathies, lumbar region ICD-9: 724.6 ICD-10: M53.86 Active 11/14/2014 Unknown Urge incontinence ICD- 9: 788.31 ICD-10: N39.41 Active 03/21/2015 Unknown Encounter for immunization ICD-9: V03.82 ICD-10: Z23 Active 02/14/2015 Unknown Other chronic pain ICD -9: 729.5 ICD-10: G89.29 Active 11/14/2014 Unknown Encounter for immunization ICD-9: V04.81 ICD-10: Z23 Active 12/09/2014 Unknown FALL FROM LADDER ICD-9 : E881.0 Active 11/14/2014 Unknown Left hand pain ICD-9: 729.5 Active 11/14/2014 Unknown Right hip pain ICD-9: 719.45 Active 11/14/2014 Unknown Sacroiliac joint pain ICD-9: 724.6 Active 11/14/2014 Unknown Diabetes Unknown Active 08/13/2014 Unknown Hyperlipidemia Unknown Active 08/13/2014 Unknown Hypertension Unknown Active 08/13/2014 Unknown DIABETES TYPE II ICD-9 : 250.00 Active 08/12/2014 Unknown ESSENTIAL HYPERTENSION ICD-9: 401.9 Active 08/12/2014 Unknown HYPERLIPIDEMIA ICD-9: 272.4 Active 08/12/2014 Unknown Problems Condition Codes Effective Dates Condition Status Sciatica Unknown 03/26/2017 Active Low back pain ICD-9: 724.2 ICD-10: M54.5 03/26/2017 Active Sciatica, right side ICD-9: 724.3 ICD-10: M54.31 03/26/2017 Active Essential (primary) hypertension ICD-9: 401.9 ICD-10: I10 08/12/2014 Active Type 1 diabetes mellitus without complications ICD-9: 250.00 ICD-10: E10.9 08/12/2014 Active Fever, unspecified ICD -9: 780.60 ICD-10: R50.9 04/03/2016 Active Frequency of micturition ICD-9: 788.41 ICD-10: R35.0 01/16/2017 Active Weakness ICD-9: 780.79 ICD-10: R53.1 01/16/2017 Active Actinic keratosis ICD- 9: 702.0 ICD-10: L57.0 10/16/2016 Active 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 10/16/2016 Active Hypothryroidism Unknown 10/09/2016 Active Hypothyroidism, unspecified ICD-9: 244.9 ICD-10: E03.9 10/09/2016 Active Chronic obstructive pulmonary disease with (acute) exacerbation ICD-9: 491.21 ICD-10: J44.1 10/01/2016 Active Cough ICD-9: 786.2 ICD-10: R05 09/27/2016 Active Acute bronchitis, unspecified ICD-9: 466.0 ICD-10: J20.9 09/27/2016 Active Encounter for general adult medical examination with abnormal findings ICD-9: V70.0 ICD-10: Z00.01 07/10/2016 Active Acute laryngopharyngitis ICD-9: 465.0 ICD-10: J06.0 04/03/2016 Active Other allergic rhinitis ICD-9: 477.8 ICD-10: J30.89 04/03/2016 Active Mixed hyperlipidemia ICD-9: 272.4 ICD-10: E78.2 08/12/2014 Active Encounter for screening mammogram for malignant neoplasm of breast ICD-9: V76.12 ICD-10: Z12.31 01/31/2016 Active Pain in right hand ICD -9: 729.5 ICD-10: M79.641 11/14/2014 Active Other specified dorsopathies, lumbar region ICD-9: 724.6 ICD-10: M53.86 11/14/2014 Active Urge incontinence ICD- 9: 788.31 ICD-10: N39.41 03/21/2015 Active Encounter for immunization ICD-9: V03.82 ICD-10: Z23 02/14/2015 Active Other chronic pain ICD -9: 729.5 ICD-10: G89.29 11/14/2014 Active Encounter for immunization ICD-9: V04.81 ICD-10: Z23 12/09/2014 Active FALL FROM LADDER ICD-9 : E881.0 11/14/2014 Active Left hand pain ICD-9: 729.5 11/14/2014 Active Right hip pain ICD-9: 719.45 11/14/2014 Active Sacroiliac joint pain ICD-9: 724.6 11/14/2014 Active Diabetes Unknown 08/13/2014 Active Hyperlipidemia Unknown 08/13/2014 Active Hypertension Unknown 08/13/2014 Active DIABETES TYPE II ICD-9 : 250.00 08/12/2014 Active ESSENTIAL HYPERTENSION ICD-9: 401.9 08/12/2014 Active HYPERLIPIDEMIA ICD-9: 272.4 08/12/2014 Active Medications Medication Codes Instructions Start Date Stop Date Status Fill Instructions Kenalog 40 mg/mL suspension for injection RxNorm: 7058493 1 Milliliter(s) Inj 03/26/2017 03/26/2017 Inactive Novolog 100 unit/mL subcutaneous solution RxNorm: 969063 SSI 5 units over 150 and for every additional 50 add 2 units Unit(s) SQ TID adjust as needed for glucose control 02/19/2017 09/16/2017 Active Lantus 100 unit/mL subcutaneous solution RxNorm: 340792 10 Unit(s) SQ QAM 02/19/2017 No Stop Date Active ceftriaxone 500 mg solution for injection RxNorm: 0118116 Inj 01/16/2017 01/16/2017 Inactive Lantus 100 unit/mL subcutaneous solution RxNorm: 918573 7 Unit(s) SQ QAM 01/16/2017 02/18/2017 Inactive Lantus 100 unit/mL subcutaneous solution RxNorm: 871499 10 Unit(s) SQ daily 01/08/2017 01/11/2017 Inactive gabapentin 100 mg capsule RxNorm: 861581 TAKE ONE CAPSULE BY MOUTH THREE TIMES A DAY 11/30/2016 02/03/2017 Inactive Zoloft 50 mg tablet RxNorm: 412760 TAKE ONE TABLET BY MOUTH DAILY 10/30/2016 04/27/2017 Active Zocor 20 mg tablet RxNorm: 228029 1 Tablet(s) PO daily 201610/10/2017 Active stop the 40mg dose of zocor, start on 20mg Lantus 100 unit/mL subcutaneous solution RxNorm: 131628 15 Unit(s) SQ daily 10/16/2016 01/07/2017 Inactive Novolog 100 unit/mL subcutaneous solution RxNorm: 054379 SSI 5 units over 150 and for every additional 50 add 2 units Unit(s) SQ TID adjust as needed for glucose control 10/16/2016 02/18/2017 Inactive prednisone 20 mg tablet RxNorm: 219878 1 Tablet(s) PO BID 10/0110/05/2016 Inactive Kenalog 40 mg/mL suspension for injection RxNorm: 5957157 1 Milliliter(s) Inj 09/27/2016 09/27/2016 Inactive Zithromax Z-Kishor 250 mg tablet RxNorm: 944677 1 Tablet(s) PO UD 09/27/2016 10/01/2016 Inactive ceftriaxone 500 mg solution for injection RxNorm: 5383716 1 Milliliter(s) Inj 09/27/2016 09/27/2016 Inactive Tessalon Perles 100 mg capsule RxNorm: 467725 1 Capsule(s) PO Q8 PRN as needed 09/22/2016 No Stop Date Active Augmentin 500 mg-125 mg tablet RxNorm: 464485 1 Tablet(s) PO BID 09/22/2016 09/26/2016 Inactive metoprolol tartrate 50 mg tablet RxNorm: 061177 TAKE ONE TABLET BY MOUTH TWICE A DAY 08/02/2016 07/27/2017 Active Novolog 100 unit/mL subcutaneous solution RxNorm: 315551 10 Unit(s) SQ TID adjust as needed for glucose control 07/19/2016 10/15/2016 Inactive Humalog 100 unit/mL subcutaneous solution RxNorm: 763369 INJECT 10 UNITS UNDER THE SKIN BEFORE EACH MEAL 07/16/201607/16 Inactive Kenalog 40 mg/mL suspension for injection RxNorm: 4192659 1 Milliliter(s) Inj 07/09/2016 07/09/2016 Inactive ceftriaxone 500 mg solution for injection RxNorm: 7352636 Inj 07/09/2016 07/09/2016 Inactive Lantus 100 unit/mL subcutaneous solution RxNorm: 767668 Unit(s) INJECT 13 UNITS UNDER THE SKIN IN THE MORNING 06/06/2016 10/15/2016 Inactive Zoloft 50 mg tablet RxNorm: 232009 TAKE ONE TABLET BY MOUTH DAILY 04/27/2016 07/25/2016 Inactive Lantus 100 unit/mL subcutaneous solution RxNorm: 673745 INJECT 20 UNITS UNDER THE SKIN AT BEDTIME 04/27/2016 06/05/2016 Inactive amoxicillin 500 mg capsule RxNorm: 051470 1 Capsule(s) PO TID 04/03/2016 04/12/2016 Inactive Zyrtec 10 mg tablet RxNorm: 8091612 1 Tablet(s) PO daily 04/0305/02/2016 Inactive hydrochlorothiazide 12.5 mg capsule RxNorm: 502592 TAKE ONE CAPSULE BY MOUTH DAILY 03/12/2016 12/06/2016 Inactive Benicar 40 mg tablet RxNorm: 986347 1 Tablet(s) PO daily 201504/27/2016 Inactive Benicar 40 mg tablet RxNorm: 250941 1 Tablet(s) PO daily 201502/27/2016 Inactive gabapentin 100 mg capsule RxNorm: 475790 TAKE ONE CAPSULE BY MOUTH THREE TIMES A DAY 01/09/2016 04/16/2016 Inactive metoprolol tartrate 50 mg tablet RxNorm: 814412 TAKE ONE TABLET BY MOUTH TWICE A DAY 01/09/2016 04/07/2016 Inactive Humalog 100 unit/mL subcutaneous solution RxNorm: 580384 5-10 Unit(s) SQ AC 07/19/2015 07/18/2016 Inactive Lantus 100 unit/mL subcutaneous solution RxNorm: 962279 13 Unit(s) SQ [facility] 07/19/2015 01/15/2017 Inactive Lantus 100 unit/mL subcutaneous solution RxNorm: 436672 20 Unit(s) SQ [facility] 07/14/2015 07/18/2015 Inactive Zoloft 50 mg tablet RxNorm: 795368 1 Tablet(s) PO daily 201509/15/2015 Inactive Humalog 100 unit/mL subcutaneous solution RxNorm: 500879 10 Unit(s) SQ 05/11/2015 07/18/2015 Inactive metoprolol tartrate 50 mg tablet RxNorm: 381721 1 Tablet(s) PO BID 04/28/2015 08/25/2015 Inactive Lantus 100 unit/mL subcutaneous solution RxNorm: 087752 20 Unit([address]) [facility] 04/28/2015 07/13/2015 Inactive Vesicare 10 mg tablet RxNorm: 553378 1 Tablet(s) PO QPM 201509/18/2015 Inactive hydrochlorothiazide 12.5 mg capsule RxNorm: 823910 1 Tablet(s) PO daily 01/04/2015 12/29/2015 Inactive gabapentin 100 mg capsule RxNorm: 059628 1 Capsule(s) PO TID 03/28/2015 Inactive FreeStyle Lite Strips RxNorm: Miscellaneous 10/19/2014 10/18/2014 Inactive check blood sugar three times a day FreeStyle Lite Strips RxNorm: Miscellaneous 10/19/2014 10/18/2014 Inactive check blood sugar three times a day FreeStyle Lite Strips RxNorm: Miscellaneous Test blood sugar three times daily 10/19/2014 11/18/2015 Inactive 250.0 Calcium RxNorm: 1 PO daily No Start Date Active aspirin 81 mg tablet RxNorm: 283824 1 Tablet(s) PO daily No Start Date Active Fish Oil oral RxNorm: 6676061 oral No Start Date Active multivitamin capsule RxNorm: 1 Capsule(s) PO daily No Start Date Active Humalog 100 unit/mL subcutaneous solution RxNorm: 845813 Unit(s) SQ No Start Date 05/10/2015 Inactive Zoloft 50 mg tablet RxNorm: 285231 1 Tablet(s) PO daily No Start Date 05/18/2015 Inactive gabapentin 100 mg capsule RxNorm: 671647 1 Capsule(s) PO daily No Start Date 11/28/2014 Inactive metoprolol tartrate 50 mg tablet RxNorm: 743790 1 Tablet(s) PO TID No Start Date 04/27/2015 Inactive Benicar 40 mg tablet RxNorm: 496034 1 Tablet(s) PO daily No Start Date 02/19/2016 Inactive hydrochlorothiazide 25 mg tablet RxNorm: 873708 1 Tablet(s) PO daily No Start Date 01/03/2015 Inactive Lantus 100 unit/mL subcutaneous solution RxNorm: 611827 13 Unit(s) SQ No Start Date 04/27/2015 Inactive Zocor 40 mg tablet RxNorm: 130497 1 Tablet(s) PO daily No Start Date 10/15/2016 Inactive Medication Administered Medication Codes Instructions Start Date Status Kenalog 40 mg/mL suspension for injection RxNorm: 3036999 03/26/2017 Active ceftriaxone 500 mg solution for injection RxNorm: 3518580 01/16/2017 No longer Active Kenalog 40 mg/mL suspension for injection RxNorm: 3408021 09/27/2016 No longer Active ceftriaxone 500 mg solution for injection RxNorm: 3953886 1Milli09/27/2016 No longer Active Kenalog 40 mg/mL suspension for injection RxNorm: 6508987 1Milliliter 07/09/2016 No longer Active ceftriaxone 500 mg solution for injection RxNorm: 5856285 07/09/2016 No longer Active Immunizations Vaccine Codes Date Status Influenza CVX: 141 11/12/2016 completed Pneumococcal (Adult) CVX: 133 02/15/2015 completed Influenza CVX: 141 12/10/2014 completed Influenza CVX: 141 12/02/2013 completed Pneumococcal CVX: 33 12/02/2013 completed Tetanus, Diptheria, Pertussis CVX: 113 completed Tetanus/Diptheria CVX: 113 12/02/2013 completed Assessments Condition Codes Effective Dates Low back pain ICD-10: M54.5 ICD-9: 724.2 03/26/2017 Sciatica, right side ICD-10: M54.31 ICD-9: 724.3 03/26/2017 Essential (primary) hypertension ICD-10: I10 ICD-9: 401.9 02/19/2017 Type 1 diabetes mellitus without complications ICD-10: E10.9 ICD-9: 250.00 02/19/2017 Weakness ICD-10: R53.1 ICD-9: 780.79 01/16/2017 Frequency of micturition ICD-10: R35.0 ICD-9: 788.41 01/16/2017 Fever presenting with conditions classified elsewhere ICD-10 : R50.81 ICD-9: 780.61 01/16/2017 Nontoxic multinodular goiter ICD-10: E04.2 ICD-9: 241.9 10/16/2016 Actinic keratosis ICD-10: L57.0 ICD-9: 702.0 10/16/2016 Hypothyroidism, unspecified ICD-10: E03.9 ICD-9: 244.9 10/09/2016 Chronic obstructive pulmonary disease with (acute) exacerbation ICD-10: J44.1 ICD-9: 491.21 10/08/2016 Cough ICD-10: R05 ICD-9: 786.2 10/08/2016 Acute bronchitis, unspecified ICD-10: J20.9 ICD-9: 466.0 10/01/2016 Encounter for general adult medical examination with abnormal findings ICD-10: Z00.01 ICD-9: V70.0 07/10/2016 Acute laryngopharyngitis ICD-10: J06.0 ICD-9: 465.0 07/09/2016 Other allergic rhinitis ICD-10: J30.89 ICD-9: 477.8 07/09/2016 Mixed hyperlipidemia ICD-10: E78.2 ICD-9: 272.4 06/06/2016 Encounter for screening mammogram for malignant neoplasm of breast ICD-10: Z12.31 ICD-9: V76.12 02/01/2016 Pain in right hand ICD-10: M79.641 ICD-9: 729.5 12/26/2015 Other specified dorsopathies, lumbar region ICD-10: M53.86 ICD-9: 724.6 03/22/2015 Urge incontinence ICD-10: N39.41 ICD-9: 788.31 03/22/2015 Encounter for immunization ICD-10: Z23 ICD-9: V03.82 02/15/2015 Other chronic pain ICD-10: G89.29 ICD-9: 729.5 02/15/2015 Encounter for immunization ICD-10: Z23 ICD-9: V04.81 12/10/2014 ESSENTIAL HYPERTENSION ICD-9: 401.9 11/15 Sacroiliac joint pain ICD-9: 724.6 2014 FALL FROM LADDER ICD-9: E881.0 2014 Left hand pain ICD-9: 729.5 11/15/2014 DIABETES TYPE II ICD-9: 250.00 2014 Right hip pain ICD-9: 719.45 11/15/2014 HYPERLIPIDEMIA ICD-9: 272.4 08/13/2014 Reason For Visit Reason For Visit Effective Dates Notes cough 03/26/2017 diabetes mellitus 02/19/2017 diabetes mellitus 01/16/2017 hypertension 01/08/2017 hypertension 11/21/2016 hypertension 10/16/2016 cough 10/08/2016 improving cough 10/01/2016 ongoing cough 09/27/2016 diabetes mellitus 07/19/2016 Annual Medicare Wellness Exam 07/10/2016 Hospital Follow Up 07/09/2016 hypertension 06/06/2016 diabetes mellitus 04/03/2016 back pain 12/26/2015 back pain 09/19/2015 back pain 07/19/2015 back pain 03/22/2015 back pain 02/15/2015 vaccination against influenza 12/10/2014 back pain 11/15/2014 back pain 08/13/2014 Results Observation Observation Code Item Item Code Result Date Urine Culture Ucult Complete NO Growth Day 2 01/18/2017 Urine Culture Ucult Preliminary NO Growth Day 1 01/18/2017 Free T4 Dkh401 FREE T4 1.13 ng/dL 10/09/2016 Tsh Ord6 hTSH II 0.30 uIU/mL 10/08/2016 Cbc With Differential Ord2 WBC 9.21 K/ul 10/08/2016 Cbc With Differential Ord2 RBC 4.00 M/ul 10/08/2016 Cbc With Differential Ord2 HGB 12.6 g/dl 10/08/2016 Cbc With Differential Ord2 HCT 36.9 % 10/08/2016 Cbc With Differential Ord2 Neut% 85.6 % 10/08/2016 Cbc With Differential Ord2 MCV 92.3 fl 10/08/2016 Cbc With Differential Ord2 Lymph% 10.4 % 10/08/2016 Cbc With Differential Ord2 MCH 31.5 pg 10/08/2016 Cbc With Differential Ord2 [place]% 4.0 % 10/08/2016 Cbc With Differential Ord2 MCHC 34.1 pg 10/08/2016 Cbc With Differential Ord2 Eos% 0.0 % 10/08/2016 Cbc With Differential Ord2 Baso% 0.0 % 10/08/2016 Cbc With Differential Ord2 PLT 227 K/ul 10/08/2016 Cbc With Differential Ord2 Neut ABS# 7.88 K/ul 10/08/2016 Cbc With Differential Ord2 RDW 12.4 % 10/08/2016 Cbc With Differential Ord2 Lymph ABS# 0.96 K/ul 10/08/2016 Cbc With Differential Ord2 [place] ABS# 0.4 K/ul 10/08/2016 Cbc With Differential Ord2 Eos ABS# 0.0 K/ul 10/08/2016 Cbc With Differential Ord2 Baso ABS# 0.0 K/ul 10/08/2016 Comp Metabolic Lbi057 NA 135 mEq/L 10/08/2016 Comp Metabolic Cmx711 K 4.3 mEq/L 10/08/2016 Comp Metabolic Utx056 CL 98 mEq/L 10/08/2016 Comp Metabolic Bpg334 CO2 22.0 mEq/L 10/08/2016 Comp Metabolic Fvw851 ANION GAP 19 10/08/2016 Comp Metabolic Pew184 GLUCOSE 400 mg/dL 10/08/2016 Comp Metabolic Avl213 Creat 0.7 mg/dL 10/08/2016 Comp Metabolic Uby544 eGFR 79 ml/min/1.73m2 10/08/2016 Comp Metabolic Grt801 BUN 27 mg/dL 10/08/2016 Comp Metabolic Rgo367 B/C Ratio 36.5 Ratio 10/08/2016 Comp Metabolic Nhg915 CALCIUM 9.1 mg/dL 10/08/2016 Comp Metabolic Vmd930 ALK PHOS 65 U/L 10/08/2016 Comp Metabolic Uid201 AST(SGOT) 28 U/L 10/08/2016 Comp Metabolic Mil493 ALT(SGPT) 24 U/L 10/08/2016 Comp Metabolic Rld903 BILI T 0.7 mg/dL 10/08/2016 Comp Metabolic Miz445 ALBUMIN 3.8 g/dL 10/08/2016 Comp Metabolic Etz962 TPRO 6.0 g/dL 10/08/2016 Comp Metabolic Zfc228 GLOB 2.2 g/dL 10/08/2016 Comp Metabolic Xxm717 A/G Ratio 1.7 Ratio 10/08/2016 Comp Metabolic Xqs615 Osmo 292 mOsmo 10/08/2016 %Hba1C Jyu865 % HbA1c 95853-7 7.0 % 10/08/2016 %Hba1C Kib748 Gluc Ave 154 mg/dL 10/08/2016 Microalbumin Iup494 MicroAlb <0.7 mg/dL 10/08/2016 Lipid Ord30 CHOL 172 mg/dL 10/08/2016 Lipid Ord30 HDL 72.0 mg/dl 10/08/2016 Lipid Ord30 TRIG 72 mg/dL 10/08/2016 Lipid Ord30 LDL 86 mg/dL 10/08/2016 Lipid Ord30 C/HDL 2.4 Ratio 10/08/2016 C A/B FLU Influenza A Scr TNP:Duplicate Order 04/03/2016 C A/B FLU Influenza B Scr TNP:Duplicate Order 04/03/2016 C A/B FLU IC OK? TNP:Duplicate Order 04/03/2016 C A/B FLU [id number] Influenza A Scr Negative 04/03/2016 C A/B FLU [id number] Influenza B Scr Negative 04/03/2016 Comp Metabolic Eck459 NA 138 mEq/L 09/15/2015 Comp Metabolic Ptc277 K 4.4 mEq/L 09/15/2015 Comp Metabolic Iiw171 CL 103 mEq/L 09/15/2015 Comp Metabolic Mni024 CO2 29.0 mEq/L 09/15/2015 Comp Metabolic Bgw934 ANION GAP 10 09/15/2015 Comp Metabolic Yat905 GLUCOSE 156 mg/dL 09/15/2015 Comp Metabolic Bhe411 Creat 0.7 mg/dL 09/15/2015 Comp Metabolic Oyz516 eGFR 79 ml/min/1.73m2 09/15/2015 Comp Metabolic Lip225 BUN 23 mg/dL 09/15/2015 Comp Metabolic Wrr328 B/C Ratio 31.1 Ratio 09/15/2015 Comp Metabolic Nak711 CALCIUM 9.1 mg/dL 09/15/2015 Comp Metabolic Rdp163 ALK PHOS 58 U/L 09/15/2015 Comp Metabolic Wyu681 AST(SGOT) 19 U/L 09/15/2015 Comp Metabolic Rhx668 ALT(SGPT) 11 U/L 09/15/2015 Comp Metabolic Piq497 BILI T 0.6 mg/dL 09/15/2015 Comp Metabolic Jjy076 ALBUMIN 3.9 g/dL 09/15/2015 Comp Metabolic Uec400 TPRO 5.8 g/dL 09/15/2015 Comp Metabolic Yrk852 GLOB 1.9 g/dL 09/15/2015 Comp Metabolic Azh231 A/G Ratio 2.1 Ratio 09/15/2015 Comp Metabolic Qgp232 Osmo 283 mOsmo 09/15/2015 Cbc With Differential Ord2 WBC 4.40 K/ul 09/15/2015 Cbc With Differential Ord2 RBC 3.84 M/ul 09/15/2015 Cbc With Differential Ord2 HGB 11.7 g/dl 09/15/2015 Cbc With Differential Ord2 Neut% 68.3 % 09/15/2015 Cbc With Differential Ord2 HCT 34.8 % 09/15/2015 Cbc With Differential Ord2 Lymph% 19.5 % 09/15/2015 Cbc With Differential Ord2 MCV 90.6 fl 09/15/2015 Cbc With Differential Ord2 MCH 30.5 pg 09/15/2015 Cbc With Differential Ord2 [place]% 10.2 % 09/15/2015 Cbc With Differential Ord2 Eos% 1.8 % 09/15/2015 Cbc With Differential Ord2 MCHC 33.6 pg 09/15/2015 Cbc With Differential Ord2 PLT 181 K/ul 09/15/2015 Cbc With Differential Ord2 Baso% 0.2 % 09/15/2015 Cbc With Differential Ord2 RDW 12.6 % 09/15/2015 Cbc With Differential Ord2 Neut ABS# 3.00 K/ul 09/15/2015 Cbc With Differential Ord2 Lymph ABS# 0.86 K/ul 09/15/2015 Cbc With Differential Ord2 [place] ABS# 0.5 K/ul 09/15/2015 Cbc With Differential Ord2 Eos ABS# 0.1 K/ul 09/15/2015 Cbc With Differential Ord2 Baso ABS# 0.0 K/ul 09/15/2015 Tsh Ord6 hTSH II 0.76 uIU/mL 09/15/2015 Lipid Ord30 CHOL 139 mg/dL 09/15/2015 Lipid Ord30 HDL 57.0 mg/dl 09/15/2015 Lipid Ord30 TRIG 76 mg/dL 09/15/2015 Lipid Ord30 LDL 67 mg/dL 09/15/2015 Lipid Ord30 C/HDL 2.4 Ratio 09/15/2015 %Hba1C Oph495 % HbA1c 77416-4 6.6 % 09/15/2015 %Hba1C Xoj353 Gluc Ave 143 mg/dL 09/15/2015 Tsh Ord6 hTSH II 0.68 uIU/mL 06/02/2015 %Hba1C Gzj364 % HbA1c 36930-1 6.5 % 06/02/2015 %Hba1C Xtg823 Gluc Ave 140 mg/dL 06/02/2015 Comp Metabolic Ufv918 NA 139 mEq/L 06/02/2015 Comp Metabolic Tgf475 K 4.5 mEq/L 06/02/2015 Comp Metabolic Ibo826 CL 104 mEq/L 06/02/2015 Comp Metabolic Rkp217 CO2 25.0 mEq/L 06/02/2015 Comp Metabolic Xgs454 ANION GAP 15 06/02/2015 Comp Metabolic Okm858 GLUCOSE 123 mg/dL 06/02/2015 Comp Metabolic Oqm200 Creat 0.7 mg/dL 06/02/2015 Comp Metabolic Kfs278 eGFR 92 ml/min/1.73m2 06/02/2015 Comp Metabolic Vue339 BUN 21 mg/dL 06/02/2015 Comp Metabolic Qyr088 B/C Ratio 32.3 Ratio 06/02/2015 Comp Metabolic Kaj689 CALCIUM 9.5 mg/dL 06/02/2015 Comp Metabolic Ens675 ALK PHOS 66 U/L 06/02/2015 Comp Metabolic Ubd618 AST(SGOT) 19 U/L 06/02/2015 Comp Metabolic Znj867 ALT(SGPT) 13 U/L 06/02/2015 Comp Metabolic Mdx833 BILI T 0.5 mg/dL 06/02/2015 Comp Metabolic Brs803 ALBUMIN 4.0 g/dL 06/02/2015 Comp Metabolic Xal273 TPRO 6.3 g/dL 06/02/2015 Comp Metabolic Tpf569 GLOB 2.3 g/dL 06/02/2015 Comp Metabolic Vyz705 A/G Ratio 1.7 Ratio 06/02/2015 Comp Metabolic Wnw023 Osmo 282 mOsmo 06/02/2015 %Hba1C Mdm941 % HbA1c 66215-4 6.7 % 02/17/2015 %Hba1C Uky169 Gluc Ave 146 mg/dL 02/17/2015 Comp Metabolic Doh701 NA 133 mEq/L 02/17/2015 Comp Metabolic Evr534 K 4.3 mEq/L 02/17/2015 Comp Metabolic Iac307 CL 99 mEq/L 02/17/2015 Comp Metabolic Odb491 CO2 27.0 mEq/L 02/17/2015 Comp Metabolic Ous754 ANION GAP 11 02/17/2015 Comp Metabolic Tps339 GLUCOSE 239 mg/dL 02/17/2015 Comp Metabolic Fph095 Creat 0.7 mg/dL 02/17/2015 Comp Metabolic Pmc991 eGFR 79 ml/min/1.73m2 02/17/2015 Comp Metabolic Uub192 BUN 24 mg/dL 02/17/2015 Comp Metabolic Ros389 B/C Ratio 32.4 Ratio 02/17/2015 Comp Metabolic Cyp767 CALCIUM 9.1 mg/dL 02/17/2015 Comp Metabolic Ufj336 ALK PHOS 75 U/L 02/17/2015 Comp Metabolic Bww823 AST(SGOT) 18 U/L 02/17/2015 Comp Metabolic Xqe831 ALT(SGPT) 11 U/L 02/17/2015 Comp Metabolic Ggt777 BILI T 0.6 mg/dL 02/17/2015 Comp Metabolic Ybd835 ALBUMIN 4.2 g/dL 02/17/2015 Comp Metabolic Brj343 TPRO 6.2 g/dL 02/17/2015 Comp Metabolic Vwb717 GLOB 2.0 g/dL 02/17/2015 Comp Metabolic Agw394 A/G Ratio 2.1 Ratio 02/17/2015 Comp Metabolic Ycz485 Osmo 278 mOsmo 02/17/2015 %Hba1C Vdj496 % HbA1c 07150-3 6.7 % 11/15/2014 %Hba1C Gps212 Gluc Ave 146 mg/dL 11/15/2014 Comp Metabolic Iuc042 NA 134 mEq/L 11/15/2014 Comp Metabolic Qju800 K 4.5 mEq/L 11/15/2014 Comp Metabolic Eip265 CL 101 mEq/L 11/15/2014 Comp Metabolic Elp154 CO2 27.0 mEq/L 11/15/2014 Comp Metabolic Gpm007 ANION GAP 11 11/15/2014 Comp Metabolic Mus167 GLUCOSE 293 mg/dL 11/15/2014 Comp Metabolic Akx807 Creat 0.7 mg/dL 11/15/2014 Comp Metabolic Fvx866 eGFR 87 ml/min/1.73m2 11/15/2014 Comp Metabolic Ofl398 BUN 20 mg/dL 11/15/2014 Comp Metabolic Ftx589 B/C Ratio 29.4 Ratio 11/15/2014 Comp Metabolic Kvq237 CALCIUM 9.0 mg/dL 11/15/2014 Comp Metabolic Rrz771 ALK PHOS 67 U/L 11/15/2014 Comp Metabolic Ila358 AST(SGOT) 17 U/L 11/15/2014 Comp Metabolic Rhq063 ALT(SGPT) 10 U/L 11/15/2014 Comp Metabolic Cio176 BILI T 0.6 mg/dL 11/15/2014 Comp Metabolic [id number] ALBUMIN 4.0 g/dL 11/15/2014 Comp Metabolic Caj337 TPRO 6.0 g/dL 11/15/2014 Comp Metabolic Qcd383 GLOB 2.0 g/dL 11/15/2014 Comp Metabolic Fza385 A/G Ratio 2.0 Ratio 11/15/2014 Comp Metabolic Qhh412 Osmo 282 mOsmo 11/15/2014 Review of Systems System Result Effective Dates Constitutional No recent illness 2017 Constitutional No chills 03/26/2017 Constitutional No fever 03/26/2017 Eyes No eye erythema 03/26/2017 Ears/Nose/Throat/Neck nasal discharge Cardiovascular No chest pain/pressure Cardiovascular No dyspnea 03/26/2017 Respiratory cough 03/26/2017 Respiratory No dyspnea 03/26/2017 Neurologic No alteration of consciousness 03/26/2017 Neurologic No mental status change 2017 Ears/Nose/Throat/Neck nasal allergies Musculoskeletal back pain 03/26/2017 Constitutional recent illness 02/19/2017 Constitutional No chills 02/19/2017 Constitutional fatigue 02/19/2017 Constitutional No fever 02/19/2017 Constitutional No insomnia 02/19/2017 Constitutional No malaise 02/19/2017 Eyes No blindness 02/19/2017 Eyes No vision change 02/19/2017 Ears/Nose/Throat/Neck No dental pain Ears/Nose/Throat/Neck No dizziness 2016 Ears/Nose/Throat/Neck No dysphagia 2016 Ears/Nose/Throat/Neck No headache 2016 Ears/Nose/Throat/Neck No hearing loss Ears/Nose/Throat/Neck No nasal allergies 02/19/2017 Ears/Nose/Throat/Neck No sore throat Ears/Nose/Throat/Neck No postnasal drip 02/19/2017 Ears/Nose/Throat/Neck No sinus congestion 02/19/2017 Cardiovascular No chest pain/pressure Cardiovascular No dyspnea 02/19/2017 Cardiovascular No edema 02/19/2017 Cardiovascular No exercise intolerance Cardiovascular No fatigue 02/19/2017 Cardiovascular No near-syncope/dizziness 02/19/2017 Respiratory No chest tightness 2016 Respiratory cough 02/19/2017 Respiratory No dyspnea 02/19/2017 Respiratory No pedal edema 02/19/2017 Gastrointestinal No abdominal pain 2016 Gastrointestinal No constipation 2016 Gastrointestinal No diarrhea 02/19/2017 Gastrointestinal No gastroesophageal reflux 02/19/2017 Gastrointestinal No nausea 02/19/2017 Gastrointestinal No vomiting 02/19/2017 Musculoskeletal stiffness 02/19/2017 Musculoskeletal No swelling 02/19/2017 Musculoskeletal back pain 02/19/2017 Musculoskeletal joint complaint 2016 Musculoskeletal muscle weakness 2016 Musculoskeletal No myalgias 02/19/2017 Neurologic No dizziness 02/19/2017 Neurologic No headache 02/19/2017 Neurologic No neck pain 02/19/2017 Neurologic No syncope 02/19/2017 Psychiatric No anxiety 02/19/2017 Psychiatric No depression 02/19/2017 Endocrine diabetes mellitus type 2 2016 Constitutional recent illness 01/16/2017 Constitutional No chills 01/16/2017 Constitutional fatigue 01/16/2017 Constitutional No fever 01/16/2017 Constitutional No insomnia 01/16/2017 Constitutional No malaise 01/16/2017 Eyes No blindness 01/16/2017 Eyes No vision change 01/16/2017 Ears/Nose/Throat/Neck No dental pain Ears/Nose/Throat/Neck No dizziness 2016 Ears/Nose/Throat/Neck No dysphagia 2016 Ears/Nose/Throat/Neck No headache 2016 Ears/Nose/Throat/Neck No hearing loss Ears/Nose/Throat/Neck No nasal allergies 01/16/2017 Ears/Nose/Throat/Neck No sore throat Ears/Nose/Throat/Neck No postnasal drip 01/16/2017 Ears/Nose/Throat/Neck No sinus congestion 01/16/2017 Cardiovascular No chest pain/pressure Cardiovascular No dyspnea 01/16/2017 Cardiovascular No edema 01/16/2017 Cardiovascular No exercise intolerance Cardiovascular No fatigue 01/16/2017 Cardiovascular No near-syncope/dizziness 01/16/2017 Respiratory No chest tightness 2016 Respiratory No cough 01/16/2017 Respiratory No dyspnea 01/16/2017 Respiratory No pedal edema 01/16/2017 Gastrointestinal No abdominal pain 2016 Gastrointestinal No constipation 2016 Gastrointestinal No diarrhea 01/16/2017 Gastrointestinal No gastroesophageal reflux 01/16/2017 Gastrointestinal No nausea 01/16/2017 Gastrointestinal No vomiting 01/16/2017 Genitourinary/Nephrology No dysuria 01/16 Genitourinary/Nephrology No nocturia Genitourinary/Nephrology No urinary incontinence 01/16/2017 Musculoskeletal stiffness 01/16/2017 Musculoskeletal No swelling 01/16/2017 Musculoskeletal back pain 01/16/2017 Musculoskeletal joint complaint 2016 Musculoskeletal muscle weakness 2016 Musculoskeletal No myalgias 01/16/2017 Neurologic No dizziness 01/16/2017 Neurologic No headache 01/16/2017 Neurologic No neck pain 01/16/2017 Neurologic No syncope 01/16/2017 Psychiatric No anxiety 01/16/2017 Psychiatric No depression 01/16/2017 Genitourinary/Nephrology urinary frequency 01/16/2017 Endocrine diabetes mellitus type 2 2016 Constitutional recent illness 01/08/2017 Constitutional No chills 01/08/2017 Constitutional fatigue 01/08/2017 Constitutional No fever 01/08/2017 Constitutional No insomnia 01/08/2017 Constitutional No malaise 01/08/2017 Eyes No blindness 01/08/2017 Eyes No vision change 01/08/2017 Ears/Nose/Throat/Neck No dental pain 09/2016 Ears/Nose/Throat/Neck No dizziness 2016 Ears/Nose/Throat/Neck No dysphagia 2016 Ears/Nose/Throat/Neck No headache 2016 Ears/Nose/Throat/Neck No hearing loss 09/2016 Ears/Nose/Throat/Neck No nasal allergies 01/08/2017 Ears/Nose/Throat/Neck No sore throat 09/2016 Ears/Nose/Throat/Neck No postnasal drip 01/08/2017 Ears/Nose/Throat/Neck No sinus congestion 01/08/2017 Cardiovascular No chest pain/pressure 09/2016 Cardiovascular No dyspnea 01/08/2017 Cardiovascular No edema 01/08/2017 Cardiovascular No exercise intolerance Cardiovascular No fatigue 01/08/2017 Cardiovascular No near-syncope/dizziness 01/08/2017 Respiratory No chest tightness 2016 Respiratory cough 01/08/2017 Respiratory No dyspnea 01/08/2017 Respiratory No pedal edema 01/08/2017 Gastrointestinal No abdominal pain 2016 Gastrointestinal No constipation 2016 Gastrointestinal No diarrhea 01/08/2017 Gastrointestinal No gastroesophageal reflux 01/08/2017 Gastrointestinal No nausea 01/08/2017 Gastrointestinal No vomiting 01/08/2017 Musculoskeletal stiffness 01/08/2017 Musculoskeletal No swelling 01/08/2017 Musculoskeletal back pain 01/08/2017 Musculoskeletal joint complaint 2016 Musculoskeletal muscle weakness 2016 Musculoskeletal No myalgias 01/08/2017 Dermatologic No rash 01/08/2017 Dermatologic No sores 01/08/2017 Dermatologic No scar 01/08/2017 Neurologic No dizziness 01/08/2017 Neurologic No headache 01/08/2017 Neurologic No neck pain 01/08/2017 Neurologic No syncope 01/08/2017 Psychiatric No anxiety 01/08/2017 Psychiatric No depression 01/08/2017 Constitutional No recent illness 2016 Constitutional No chills 11/21/2016 Constitutional fatigue 11/21/2016 Constitutional No fever 11/21/2016 Constitutional No insomnia 11/21/2016 Constitutional No malaise 11/21/2016 Eyes No blindness 11/21/2016 Eyes No vision change 11/21/2016 Ears/Nose/Throat/Neck No dental pain Ears/Nose/Throat/Neck No dizziness 2016 Ears/Nose/Throat/Neck No dysphagia 2016 Ears/Nose/Throat/Neck No headache 2016 Ears/Nose/Throat/Neck No hearing loss Ears/Nose/Throat/Neck No nasal allergies 11/21/2016 Ears/Nose/Throat/Neck No sore throat Ears/Nose/Throat/Neck No postnasal drip 11/21/2016 Ears/Nose/Throat/Neck No sinus congestion 11/21/2016 Cardiovascular No chest pain/pressure Cardiovascular No dyspnea 11/21/2016 Cardiovascular No edema 11/21/2016 Cardiovascular No exercise intolerance Cardiovascular No fatigue 11/21/2016 Cardiovascular No near-syncope/dizziness 11/21/2016 Respiratory No chest tightness 2016 Respiratory cough 11/21/2016 Respiratory No dyspnea 11/21/2016 Respiratory No pedal edema 11/21/2016 Gastrointestinal No abdominal pain 2016 Gastrointestinal No constipation 2016 Gastrointestinal No diarrhea 11/21/2016 Gastrointestinal No gastroesophageal reflux 11/21/2016 Gastrointestinal No nausea 11/21/2016 Gastrointestinal No vomiting 11/21/2016 Musculoskeletal stiffness 11/21/2016 Musculoskeletal No swelling 11/21/2016 Musculoskeletal back pain 11/21/2016 Musculoskeletal joint complaint 2016 Musculoskeletal muscle weakness 2016 Musculoskeletal No myalgias 11/21/2016 Dermatologic No rash 11/21/2016 Dermatologic No sores 11/21/2016 Dermatologic No scar 11/21/2016 Neurologic No dizziness 11/21/2016 Neurologic No headache 11/21/2016 Neurologic No neck pain 11/21/2016 Neurologic No syncope 11/21/2016 Psychiatric No anxiety 11/21/2016 Psychiatric No depression 11/21/2016 Constitutional recent illness 10/16/2016 Constitutional No chills 10/16/2016 Constitutional fatigue 10/16/2016 Constitutional No fever 10/16/2016 Constitutional No insomnia 10/16/2016 Constitutional No malaise 10/16/2016 Eyes No blindness 10/16/2016 Eyes No vision change 10/16/2016 Ears/Nose/Throat/Neck No dental pain Ears/Nose/Throat/Neck No dizziness 2016 Ears/Nose/Throat/Neck No dysphagia 2016 Ears/Nose/Throat/Neck No headache 2016 Ears/Nose/Throat/Neck No hearing loss Ears/Nose/Throat/Neck No nasal allergies 10/16/2016 Ears/Nose/Throat/Neck No sore throat Ears/Nose/Throat/Neck No postnasal drip 10/16/2016 Ears/Nose/Throat/Neck No sinus congestion 10/16/2016 Cardiovascular No chest pain/pressure Cardiovascular No dyspnea 10/16/2016 Cardiovascular No edema 10/16/2016 Cardiovascular No exercise intolerance Cardiovascular No fatigue 10/16/2016 Cardiovascular No near-syncope/dizziness 10/16/2016 Respiratory No chest tightness 2016 Respiratory cough 10/16/2016 Respiratory No dyspnea 10/16/2016 Respiratory No pedal edema 10/16/2016 Gastrointestinal No abdominal pain 2016 Gastrointestinal No constipation 2016 Gastrointestinal No diarrhea 10/16/2016 Gastrointestinal No gastroesophageal reflux 10/16/2016 Gastrointestinal No nausea 10/16/2016 Gastrointestinal No vomiting 10/16/2016 Musculoskeletal stiffness 10/16/2016 Musculoskeletal No swelling 10/16/2016 Musculoskeletal back pain 10/16/2016 Musculoskeletal joint complaint 2016 Musculoskeletal muscle weakness 2016 Musculoskeletal No myalgias 10/16/2016 Dermatologic No rash 10/16/2016 Dermatologic No sores 10/16/2016 Dermatologic No scar 10/16/2016 Neurologic No dizziness 10/16/2016 Neurologic No headache 10/16/2016 Neurologic No neck pain 10/16/2016 Neurologic No syncope 10/16/2016 Psychiatric No anxiety 10/16/2016 Psychiatric No depression 10/16/2016 Constitutional recent illness 10/08/2016 Constitutional No anorexia 10/08/2016 Constitutional No night sweats 2016 Constitutional No chills 10/08/2016 Constitutional No diaphoresis 10/08/2016 Constitutional fatigue 10/08/2016 Constitutional No fever 10/08/2016 Constitutional No insomnia 10/08/2016 Constitutional No malaise 10/08/2016 Constitutional No weight loss 10/08/2016 Constitutional No weight gain 10/08/2016 Eyes No eye discharge 10/08/2016 Eyes No eye erythema 10/08/2016 Ears/Nose/Throat/Neck No dizziness 2016 Ears/Nose/Throat/Neck nasal allergies 09/2016 Ears/Nose/Throat/Neck nasal discharge 09/2016 Ears/Nose/Throat/Neck No otalgia 2016 Ears/Nose/Throat/Neck sinus congestion Cardiovascular No chest pain/pressure 09/2016 Cardiovascular No dyspnea 10/08/2016 Cardiovascular No edema 10/08/2016 Respiratory No productive sputum 2016 Respiratory chest congestion 10/08/2016 Respiratory cough 10/08/2016 Gastrointestinal No abdominal pain 2016 Gastrointestinal No constipation 2016 Gastrointestinal No diarrhea 10/08/2016 Genitourinary/Nephrology No dysuria 10/08 Genitourinary/Nephrology urinary incontinence 10/08/2016 Musculoskeletal No joint complaint 2016 Dermatologic No rash 10/08/2016 Neurologic No alteration of consciousness 10/08/2016 Constitutional recent illness 10/01/2016 Constitutional No anorexia 10/01/2016 Constitutional No night sweats 2016 Constitutional No chills 10/01/2016 Constitutional No diaphoresis 10/01/2016 Constitutional fatigue 10/01/2016 Constitutional No fever 10/01/2016 Constitutional No insomnia 10/01/2016 Constitutional No malaise 10/01/2016 Constitutional No weight loss 10/01/2016 Constitutional No weight gain 10/01/2016 Eyes No eye discharge 10/01/2016 Eyes No eye erythema 10/01/2016 Ears/Nose/Throat/Neck No dizziness 2016 Ears/Nose/Throat/Neck nasal allergies Ears/Nose/Throat/Neck nasal discharge Ears/Nose/Throat/Neck No otalgia 2016 Ears/Nose/Throat/Neck sinus congestion Cardiovascular No chest pain/pressure Cardiovascular No dyspnea 10/01/2016 Cardiovascular No edema 10/01/2016 Respiratory No productive sputum 2016 Respiratory chest congestion 10/01/2016 Respiratory cough 10/01/2016 Gastrointestinal No abdominal pain 2016 Gastrointestinal No constipation 2016 Gastrointestinal No diarrhea 10/01/2016 Genitourinary/Nephrology No dysuria 10/01 Genitourinary/Nephrology urinary incontinence 10/01/2016 Musculoskeletal No joint complaint 2016 Dermatologic No rash 10/01/2016 Neurologic No alteration of consciousness 10/01/2016 Constitutional recent illness 09/27/2016 Constitutional No anorexia 09/27/2016 Constitutional No night sweats 2016 Constitutional No chills 09/27/2016 Constitutional No diaphoresis 09/27/2016 Constitutional fatigue 09/27/2016 Constitutional No fever 09/27/2016 Constitutional No malaise 09/27/2016 Constitutional No weight loss 09/27/2016 Constitutional No weight gain 09/27/2016 Constitutional No insomnia 09/27/2016 Eyes No eye erythema 09/27/2016 Eyes No eye discharge 09/27/2016 Ears/Nose/Throat/Neck No dizziness 2016 Ears/Nose/Throat/Neck nasal allergies Ears/Nose/Throat/Neck nasal discharge Ears/Nose/Throat/Neck No otalgia 2016 Ears/Nose/Throat/Neck sinus congestion Cardiovascular No chest pain/pressure Cardiovascular No dyspnea 09/27/2016 Cardiovascular No edema 09/27/2016 Respiratory No productive sputum 2016 Respiratory chest congestion 09/27/2016 Respiratory cough 09/27/2016 Gastrointestinal No abdominal pain 2016 Gastrointestinal No constipation 2016 Gastrointestinal No diarrhea 09/27/2016 Genitourinary/Nephrology No dysuria 09/27 Genitourinary/Nephrology urinary incontinence 09/27/2016 Musculoskeletal No joint complaint 2016 Dermatologic No rash 09/27/2016 Neurologic No alteration of consciousness 09/27/2016 Constitutional recent illness 07/19/2016 Constitutional No chills 07/19/2016 Constitutional fatigue 07/19/2016 Constitutional No fever 07/19/2016 Constitutional No insomnia 07/19/2016 Constitutional No malaise 07/19/2016 Eyes No blindness 07/19/2016 Eyes No vision change 07/19/2016 Ears/Nose/Throat/Neck No dental pain Ears/Nose/Throat/Neck No dizziness 2016 Ears/Nose/Throat/Neck No dysphagia 2016 Ears/Nose/Throat/Neck No headache 2016 Ears/Nose/Throat/Neck No hearing loss Ears/Nose/Throat/Neck No nasal allergies 07/19/2016 Ears/Nose/Throat/Neck No sore throat Ears/Nose/Throat/Neck No postnasal drip 07/19/2016 Ears/Nose/Throat/Neck No sinus congestion 07/19/2016 Cardiovascular No chest pain/pressure Cardiovascular No dyspnea 07/19/2016 Cardiovascular No edema 07/19/2016 Cardiovascular No exercise intolerance Cardiovascular No fatigue 07/19/2016 Cardiovascular No near-syncope/dizziness 07/19/2016 Respiratory No chest tightness 2016 Respiratory cough 07/19/2016 Respiratory No dyspnea 07/19/2016 Respiratory No pedal edema 07/19/2016 Gastrointestinal No abdominal pain 2016 Gastrointestinal No constipation 2016 Gastrointestinal No diarrhea 07/19/2016 Gastrointestinal No gastroesophageal reflux 07/19/2016 Gastrointestinal No nausea 07/19/2016 Gastrointestinal No vomiting 07/19/2016 Musculoskeletal stiffness 07/19/2016 Musculoskeletal No swelling 07/19/2016 Musculoskeletal back pain 07/19/2016 Musculoskeletal joint complaint 2016 Musculoskeletal muscle weakness 2016 Musculoskeletal No myalgias 07/19/2016 Dermatologic No rash 07/19/2016 Dermatologic No sores 07/19/2016 Dermatologic No scar 07/19/2016 Neurologic No dizziness 07/19/2016 Neurologic No headache 07/19/2016 Neurologic No neck pain 07/19/2016 Neurologic No syncope 07/19/2016 Psychiatric No anxiety 07/19/2016 Psychiatric No depression 07/19/2016 Constitutional recent illness 07/10/2016 Constitutional No chills 07/10/2016 Constitutional fatigue 07/10/2016 Constitutional No fever 07/10/2016 Eyes No eye erythema 07/10/2016 Eyes No vision change 07/10/2016 Ears/Nose/Throat/Neck nasal allergies 11/2016 Cardiovascular No chest pain/pressure 11/2016 Cardiovascular No dyspnea 07/10/2016 Respiratory No cough 07/10/2016 Respiratory No dyspnea 07/10/2016 Gastrointestinal No abdominal pain 2016 Gastrointestinal No constipation 2016 Gastrointestinal No diarrhea 07/10/2016 Dermatologic No rash 07/10/2016 Dermatologic No scar 07/10/2016 Ears/Nose/Throat/Neck nasal discharge 11/2016 Neurologic No alteration of consciousness 07/10/2016 Neurologic No mental status change 2016 Constitutional recent illness 07/09/2016 Constitutional No chills 07/09/2016 Constitutional fatigue 07/09/2016 Constitutional No fever 07/09/2016 Constitutional No insomnia 07/09/2016 Constitutional No malaise 07/09/2016 Eyes No blindness 07/09/2016 Eyes No vision change 07/09/2016 Ears/Nose/Throat/Neck No dental pain 10/2016 Ears/Nose/Throat/Neck No dizziness 2016 Ears/Nose/Throat/Neck No dysphagia 2016 Ears/Nose/Throat/Neck No headache 2016 Ears/Nose/Throat/Neck No hearing loss 10/2016 Ears/Nose/Throat/Neck No nasal allergies 07/09/2016 Ears/Nose/Throat/Neck No sore throat 10/2016 Ears/Nose/Throat/Neck No postnasal drip 07/09/2016 Ears/Nose/Throat/Neck No sinus congestion 07/09/2016 Cardiovascular No chest pain/pressure 10/2016 Cardiovascular No dyspnea 07/09/2016 Cardiovascular No edema 07/09/2016 Cardiovascular No exercise intolerance Cardiovascular No fatigue 07/09/2016 Cardiovascular No near-syncope/dizziness 07/09/2016 Respiratory No chest tightness 2016 Respiratory No cough 07/09/2016 Respiratory No dyspnea 07/09/2016 Respiratory No pedal edema 07/09/2016 Gastrointestinal No abdominal pain 2016 Gastrointestinal No constipation 2016 Gastrointestinal No diarrhea 07/09/2016 Gastrointestinal No gastroesophageal reflux 07/09/2016 Gastrointestinal No nausea 07/09/2016 Gastrointestinal No vomiting 07/09/2016 Genitourinary/Nephrology No dysuria 07/09 Genitourinary/Nephrology No nocturia 10/2016 Genitourinary/Nephrology No urinary incontinence 07/09/2016 Musculoskeletal stiffness 07/09/2016 Musculoskeletal No swelling 07/09/2016 Musculoskeletal back pain 07/09/2016 Musculoskeletal joint complaint 2016 Musculoskeletal muscle weakness 2016 Musculoskeletal No myalgias 07/09/2016 Dermatologic No rash 07/09/2016 Dermatologic No sores 07/09/2016 Dermatologic No scar 07/09/2016 Neurologic No dizziness 07/09/2016 Neurologic No headache 07/09/2016 Neurologic No neck pain 07/09/2016 Neurologic No syncope 07/09/2016 Psychiatric No anxiety 07/09/2016 Psychiatric No depression 07/09/2016 Constitutional No recent illness 2016 Constitutional No chills 06/06/2016 Constitutional No fatigue 06/06/2016 Constitutional No fever 06/06/2016 Constitutional No insomnia 06/06/2016 Constitutional No malaise 06/06/2016 Eyes No blindness 06/06/2016 Eyes No vision change 06/06/2016 Ears/Nose/Throat/Neck No dental pain 07/2016 Ears/Nose/Throat/Neck No dizziness 2016 Ears/Nose/Throat/Neck No dysphagia 2016 Ears/Nose/Throat/Neck No headache 2016 Ears/Nose/Throat/Neck No hearing loss 07/2016 Ears/Nose/Throat/Neck No nasal allergies 06/06/2016 Ears/Nose/Throat/Neck No sore throat 07/2016 Ears/Nose/Throat/Neck No postnasal drip 06/06/2016 Ears/Nose/Throat/Neck No sinus congestion 06/06/2016 Cardiovascular No chest pain/pressure 07/2016 Cardiovascular No dyspnea 06/06/2016 Cardiovascular No edema 06/06/2016 Cardiovascular No exercise intolerance Cardiovascular No fatigue 06/06/2016 Cardiovascular No near-syncope/dizziness 06/06/2016 Respiratory No chest tightness 2016 Respiratory No cough 06/06/2016 Respiratory No dyspnea 06/06/2016 Respiratory No pedal edema 06/06/2016 Gastrointestinal No abdominal pain 2016 Gastrointestinal No constipation 2016 Gastrointestinal No diarrhea 06/06/2016 Gastrointestinal No gastroesophageal reflux 06/06/2016 Gastrointestinal No nausea 06/06/2016 Gastrointestinal No vomiting 06/06/2016 Genitourinary/Nephrology No dysuria 06/06 Genitourinary/Nephrology No nocturia 07/2016 Genitourinary/Nephrology No urinary incontinence 06/06/2016 Musculoskeletal stiffness 06/06/2016 Musculoskeletal No swelling 06/06/2016 Musculoskeletal back pain 06/06/2016 Musculoskeletal joint complaint 2016 Musculoskeletal muscle weakness 2016 Musculoskeletal No myalgias 06/06/2016 Dermatologic No rash 06/06/2016 Dermatologic No sores 06/06/2016 Dermatologic No scar 06/06/2016 Neurologic No dizziness 06/06/2016 Neurologic No headache 06/06/2016 Neurologic No neck pain 06/06/2016 Neurologic No syncope 06/06/2016 Psychiatric No anxiety 06/06/2016 Psychiatric No depression 06/06/2016 Constitutional recent illness 04/03/2016 Constitutional No diaphoresis 04/03/2016 Eyes No eye erythema 04/03/2016 Ears/Nose/Throat/Neck nasal allergies Ears/Nose/Throat/Neck nasal discharge Ears/Nose/Throat/Neck postnasal drip Cardiovascular No chest pain/pressure Cardiovascular No dyspnea 04/03/2016 Respiratory No chest congestion 2016 Respiratory cough 04/03/2016 Respiratory No dyspnea 04/03/2016 Gastrointestinal No constipation 2016 Gastrointestinal No diarrhea 04/03/2016 Gastrointestinal No nausea 04/03/2016 Gastrointestinal No vomiting 04/03/2016 Dermatologic No rash 04/03/2016 Neurologic No alteration of consciousness 04/03/2016 Neurologic No mental status change 2016 Ears/Nose/Throat/Neck sinus congestion Constitutional No recent illness 2015 Constitutional No chills 12/26/2015 Constitutional No fatigue 12/26/2015 Constitutional No fever 12/26/2015 Constitutional No insomnia 12/26/2015 Constitutional No malaise 12/26/2015 Eyes No blindness 12/26/2015 Eyes No vision change 12/26/2015 Ears/Nose/Throat/Neck No dental pain Ears/Nose/Throat/Neck No dizziness 2015 Ears/Nose/Throat/Neck No dysphagia 2015 Ears/Nose/Throat/Neck No headache 2015 Ears/Nose/Throat/Neck No hearing loss Ears/Nose/Throat/Neck No nasal allergies 12/26/2015 Ears/Nose/Throat/Neck No sore throat Ears/Nose/Throat/Neck No postnasal drip 12/26/2015 Ears/Nose/Throat/Neck No sinus congestion 12/26/2015 Cardiovascular No chest pain/pressure Cardiovascular No dyspnea 12/26/2015 Cardiovascular No edema 12/26/2015 Cardiovascular No exercise intolerance Cardiovascular No fatigue 12/26/2015 Cardiovascular No near-syncope/dizziness 12/26/2015 Respiratory No chest tightness 2015 Respiratory No cough 12/26/2015 Respiratory No dyspnea 12/26/2015 Respiratory No pedal edema 12/26/2015 Gastrointestinal No abdominal pain 2015 Gastrointestinal No constipation 2015 Gastrointestinal No diarrhea 12/26/2015 Gastrointestinal No gastroesophageal reflux 12/26/2015 Gastrointestinal No nausea 12/26/2015 Gastrointestinal No vomiting 12/26/2015 Genitourinary/Nephrology No dysuria 12/25 Genitourinary/Nephrology No nocturia Genitourinary/Nephrology No urinary incontinence 12/26/2015 Musculoskeletal stiffness 12/26/2015 Musculoskeletal No swelling 12/26/2015 Musculoskeletal back pain 12/26/2015 Musculoskeletal muscle weakness 2015 Musculoskeletal No myalgias 12/26/2015 Dermatologic No rash 12/26/2015 Dermatologic No sores 12/26/2015 Dermatologic No scar 12/26/2015 Neurologic No dizziness 12/26/2015 Neurologic No headache 12/26/2015 Neurologic No neck pain 12/26/2015 Neurologic No syncope 12/26/2015 Psychiatric No anxiety 12/26/2015 Psychiatric No depression 12/26/2015 Musculoskeletal joint complaint 2015 Constitutional No recent illness 2015 Constitutional No chills 09/19/2015 Constitutional No fatigue 09/19/2015 Constitutional No fever 09/19/2015 Constitutional No insomnia 09/19/2015 Constitutional No malaise 09/19/2015 Eyes No blindness 09/19/2015 Eyes No vision change 09/19/2015 Ears/Nose/Throat/Neck No dental pain Ears/Nose/Throat/Neck No dizziness 2015 Ears/Nose/Throat/Neck No dysphagia 2015 Ears/Nose/Throat/Neck No headache 2015 Ears/Nose/Throat/Neck No hearing loss Ears/Nose/Throat/Neck No nasal allergies 09/19/2015 Ears/Nose/Throat/Neck No sore throat Ears/Nose/Throat/Neck No postnasal drip 09/19/2015 Ears/Nose/Throat/Neck No sinus congestion 09/19/2015 Cardiovascular No chest pain/pressure Cardiovascular No dyspnea 09/19/2015 Cardiovascular No edema 09/19/2015 Cardiovascular No exercise intolerance Cardiovascular No fatigue 09/19/2015 Cardiovascular No near-syncope/dizziness 09/19/2015 Respiratory No chest tightness 2015 Respiratory No cough 09/19/2015 Respiratory No dyspnea 09/19/2015 Respiratory No pedal edema 09/19/2015 Gastrointestinal No abdominal pain 2015 Gastrointestinal No constipation 2015 Gastrointestinal No diarrhea 09/19/2015 Gastrointestinal No gastroesophageal reflux 09/19/2015 Gastrointestinal No nausea 09/19/2015 Gastrointestinal No vomiting 09/19/2015 Genitourinary/Nephrology No dysuria 09/18 Genitourinary/Nephrology No nocturia Genitourinary/Nephrology No urinary incontinence 09/19/2015 Musculoskeletal stiffness 09/19/2015 Musculoskeletal No swelling 09/19/2015 Musculoskeletal back pain 09/19/2015 Musculoskeletal joint complaint 2015 Musculoskeletal muscle weakness 2015 Musculoskeletal No myalgias 09/19/2015 Dermatologic No rash 09/19/2015 Dermatologic No sores 09/19/2015 Dermatologic No scar 09/19/2015 Neurologic No dizziness 09/19/2015 Neurologic No headache 09/19/2015 Neurologic No neck pain 09/19/2015 Neurologic No syncope 09/19/2015 Psychiatric No anxiety 09/19/2015 Psychiatric No depression 09/19/2015 Constitutional No recent illness 2015 Constitutional No chills 07/19/2015 Constitutional No fatigue 07/19/2015 Constitutional No fever 07/19/2015 Constitutional No insomnia 07/19/2015 Constitutional No malaise 07/19/2015 Eyes No blindness 07/19/2015 Eyes No vision change 07/19/2015 Ears/Nose/Throat/Neck No dental pain Ears/Nose/Throat/Neck No dizziness 2015 Ears/Nose/Throat/Neck No dysphagia 2015 Ears/Nose/Throat/Neck No headache 2015 Ears/Nose/Throat/Neck No hearing loss Ears/Nose/Throat/Neck No nasal allergies 07/19/2015 Ears/Nose/Throat/Neck No sore throat Ears/Nose/Throat/Neck No postnasal drip 07/19/2015 Ears/Nose/Throat/Neck No sinus congestion 07/19/2015 Cardiovascular No chest pain/pressure Cardiovascular No dyspnea 07/19/2015 Cardiovascular No edema 07/19/2015 Cardiovascular No exercise intolerance Cardiovascular No fatigue 07/19/2015 Cardiovascular No near-syncope/dizziness 07/19/2015 Respiratory No chest tightness 2015 Respiratory No cough 07/19/2015 Respiratory No dyspnea 07/19/2015 Respiratory No pedal edema 07/19/2015 Gastrointestinal No abdominal pain 2015 Gastrointestinal No constipation 2015 Gastrointestinal No diarrhea 07/19/2015 Gastrointestinal No gastroesophageal reflux 07/19/2015 Gastrointestinal No nausea 07/19/2015 Gastrointestinal No vomiting 07/19/2015 Genitourinary/Nephrology No dysuria 07/18 Genitourinary/Nephrology No nocturia Genitourinary/Nephrology No urinary incontinence 07/19/2015 Musculoskeletal stiffness 07/19/2015 Musculoskeletal No swelling 07/19/2015 Musculoskeletal back pain 07/19/2015 Musculoskeletal joint complaint 2015 Musculoskeletal muscle weakness 2015 Musculoskeletal No myalgias 07/19/2015 Dermatologic No rash 07/19/2015 Dermatologic No sores 07/19/2015 Dermatologic No scar 07/19/2015 Neurologic No dizziness 07/19/2015 Neurologic No headache 07/19/2015 Neurologic No neck pain 07/19/2015 Neurologic No syncope 07/19/2015 Psychiatric No anxiety 07/19/2015 Psychiatric No depression 07/19/2015 Constitutional No recent illness 2015 Constitutional No chills 03/22/2015 Constitutional No fatigue 03/22/2015 Constitutional No fever 03/22/2015 Constitutional No insomnia 03/22/2015 Constitutional No malaise 03/22/2015 Eyes No blindness 03/22/2015 Eyes No vision change 03/22/2015 Ears/Nose/Throat/Neck No dental pain Ears/Nose/Throat/Neck No dizziness 2015 Ears/Nose/Throat/Neck No dysphagia 2015 Ears/Nose/Throat/Neck No headache 2015 Ears/Nose/Throat/Neck No hearing loss Ears/Nose/Throat/Neck No nasal allergies 03/22/2015 Ears/Nose/Throat/Neck No sore throat Ears/Nose/Throat/Neck No postnasal drip 03/22/2015 Ears/Nose/Throat/Neck No sinus congestion 03/22/2015 Cardiovascular No chest pain/pressure Cardiovascular No dyspnea 03/22/2015 Cardiovascular No edema 03/22/2015 Cardiovascular No exercise intolerance Cardiovascular No fatigue 03/22/2015 Cardiovascular No near-syncope/dizziness 03/22/2015 Respiratory No chest tightness 2015 Respiratory No cough 03/22/2015 Respiratory No dyspnea 03/22/2015 Respiratory No pedal edema 03/22/2015 Gastrointestinal No abdominal pain 2015 Gastrointestinal No constipation 2015 Gastrointestinal No diarrhea 03/22/2015 Gastrointestinal No gastroesophageal reflux 03/22/2015 Gastrointestinal No nausea 03/22/2015 Gastrointestinal No vomiting 03/22/2015 Genitourinary/Nephrology No dysuria 03/22 Genitourinary/Nephrology No nocturia Genitourinary/Nephrology No urinary incontinence 03/22/2015 Musculoskeletal stiffness 03/22/2015 Musculoskeletal No swelling 03/22/2015 Musculoskeletal back pain 03/22/2015 Musculoskeletal joint complaint 2015 Musculoskeletal muscle weakness 2015 Musculoskeletal No myalgias 03/22/2015 Dermatologic No rash 03/22/2015 Dermatologic No sores 03/22/2015 Dermatologic No scar 03/22/2015 Neurologic No dizziness 03/22/2015 Neurologic No headache 03/22/2015 Neurologic No neck pain 03/22/2015 Neurologic No syncope 03/22/2015 Psychiatric No anxiety 03/22/2015 Psychiatric No depression 03/22/2015 Constitutional No recent illness 2014 Constitutional No chills 02/15/2015 Constitutional No fatigue 02/15/2015 Constitutional No fever 02/15/2015 Constitutional No insomnia 02/15/2015 Constitutional No malaise 02/15/2015 Eyes No blindness 02/15/2015 Eyes No vision change 02/15/2015 Ears/Nose/Throat/Neck No dental pain Ears/Nose/Throat/Neck No dizziness 2014 Ears/Nose/Throat/Neck No dysphagia 2014 Ears/Nose/Throat/Neck No headache 2014 Ears/Nose/Throat/Neck No hearing loss Ears/Nose/Throat/Neck No nasal allergies 02/15/2015 Ears/Nose/Throat/Neck No sore throat Ears/Nose/Throat/Neck No postnasal drip 02/15/2015 Ears/Nose/Throat/Neck No sinus congestion 02/15/2015 Cardiovascular No chest pain/pressure Cardiovascular No dyspnea 02/15/2015 Cardiovascular No edema 02/15/2015 Cardiovascular No exercise intolerance Cardiovascular No fatigue 02/15/2015 Cardiovascular No near-syncope/dizziness 02/15/2015 Respiratory No chest tightness 2014 Respiratory No cough 02/15/2015 Respiratory No dyspnea 02/15/2015 Respiratory No pedal edema 02/15/2015 Gastrointestinal No abdominal pain 2014 Gastrointestinal No constipation 2014 Gastrointestinal No diarrhea 02/15/2015 Gastrointestinal No gastroesophageal reflux 02/15/2015 Gastrointestinal No nausea 02/15/2015 Gastrointestinal No vomiting 02/15/2015 Genitourinary/Nephrology No dysuria 02/15 Genitourinary/Nephrology No nocturia Genitourinary/Nephrology No urinary incontinence 02/15/2015 Musculoskeletal stiffness 02/15/2015 Musculoskeletal No swelling 02/15/2015 Musculoskeletal back pain 02/15/2015 Musculoskeletal joint complaint 2014 Musculoskeletal muscle weakness 2014 Musculoskeletal No myalgias 02/15/2015 Dermatologic No rash 02/15/2015 Dermatologic No sores 02/15/2015 Dermatologic No scar 02/15/2015 Neurologic No dizziness 02/15/2015 Neurologic No headache 02/15/2015 Neurologic No neck pain 02/15/2015 Neurologic No syncope 02/15/2015 Psychiatric No anxiety 02/15/2015 Psychiatric No depression 02/15/2015 Constitutional No recent illness 2014 Constitutional No chills 11/15/2014 Constitutional No fatigue 11/15/2014 Constitutional No fever 11/15/2014 Constitutional No insomnia 11/15/2014 Constitutional No malaise 11/15/2014 Eyes No blindness 11/15/2014 Eyes No vision change 11/15/2014 Ears/Nose/Throat/Neck No dental pain Ears/Nose/Throat/Neck No dizziness 2014 Ears/Nose/Throat/Neck No dysphagia 2014 Ears/Nose/Throat/Neck No headache 2014 Ears/Nose/Throat/Neck No hearing loss Ears/Nose/Throat/Neck No nasal allergies 11/15/2014 Ears/Nose/Throat/Neck No sore throat Ears/Nose/Throat/Neck No postnasal drip 11/15/2014 Ears/Nose/Throat/Neck No sinus congestion 11/15/2014 Cardiovascular No chest pain/pressure Cardiovascular No dyspnea 11/15/2014 Cardiovascular No edema 11/15/2014 Cardiovascular No exercise intolerance Cardiovascular No fatigue 11/15/2014 Cardiovascular No near-syncope/dizziness 11/15/2014 Respiratory No chest tightness 2014 Respiratory No cough 11/15/2014 Respiratory No dyspnea 11/15/2014 Respiratory No pedal edema 11/15/2014 Gastrointestinal No abdominal pain 2014 Gastrointestinal No constipation 2014 Gastrointestinal No diarrhea 11/15/2014 Gastrointestinal No gastroesophageal reflux 11/15/2014 Gastrointestinal No nausea 11/15/2014 Gastrointestinal No vomiting 11/15/2014 Genitourinary/Nephrology No dysuria 11/15 Genitourinary/Nephrology No nocturia Genitourinary/Nephrology No urinary incontinence 11/15/2014 Musculoskeletal stiffness 11/15/2014 Musculoskeletal No swelling 11/15/2014 Musculoskeletal back pain 11/15/2014 Musculoskeletal joint complaint 2014 Musculoskeletal muscle weakness 2014 Musculoskeletal myalgias 11/15/2014 Dermatologic No rash 11/15/2014 Dermatologic No sores 11/15/2014 Dermatologic No scar 11/15/2014 Neurologic No dizziness 11/15/2014 Neurologic No headache 11/15/2014 Neurologic No neck pain 11/15/2014 Neurologic No syncope 11/15/2014 Psychiatric No anxiety 11/15/2014 Psychiatric No depression 11/15/2014 Constitutional No recent illness 2014 Constitutional No chills 08/13/2014 Constitutional No fatigue 08/13/2014 Constitutional No fever 08/13/2014 Constitutional No insomnia 08/13/2014 Constitutional No malaise 08/13/2014 Eyes No blindness 08/13/2014 Eyes No vision change 08/13/2014 Ears/Nose/Throat/Neck No dental pain 02/2015 Ears/Nose/Throat/Neck No dizziness 2014 Ears/Nose/Throat/Neck No dysphagia 2014 Ears/Nose/Throat/Neck No headache 2014 Ears/Nose/Throat/Neck No hearing loss 02/2015 Ears/Nose/Throat/Neck No nasal allergies 08/13/2014 Ears/Nose/Throat/Neck No sore throat 02/2015 Ears/Nose/Throat/Neck No postnasal drip 08/13/2014 Ears/Nose/Throat/Neck No sinus congestion 08/13/2014 Cardiovascular No chest pain/pressure 02/2015 Cardiovascular No dyspnea 08/13/2014 Cardiovascular No edema 08/13/2014 Cardiovascular No exercise intolerance Cardiovascular No fatigue 08/13/2014 Cardiovascular No near-syncope/dizziness 08/13/2014 Respiratory No chest tightness 2014 Respiratory No cough 08/13/2014 Respiratory No dyspnea 08/13/2014 Respiratory No pedal edema 08/13/2014 Gastrointestinal No abdominal pain 2014 Gastrointestinal No constipation 2014 Gastrointestinal No diarrhea 08/13/2014 Gastrointestinal No gastroesophageal reflux 08/13/2014 Gastrointestinal No nausea 08/13/2014 Gastrointestinal No vomiting 08/13/2014 Genitourinary/Nephrology No dysuria 08/13 Genitourinary/Nephrology No nocturia 02/2015 Genitourinary/Nephrology No urinary incontinence 08/13/2014 Musculoskeletal stiffness 08/13/2014 Musculoskeletal No swelling 08/13/2014 Musculoskeletal muscle weakness 2014 Musculoskeletal No myalgias 08/13/2014 Dermatologic No rash 08/13/2014 Dermatologic No sores 08/13/2014 Dermatologic No scar 08/13/2014 Neurologic No dizziness 08/13/2014 Neurologic No headache 08/13/2014 Neurologic No neck pain 08/13/2014 Neurologic No syncope 08/13/2014 Psychiatric No anxiety 08/13/2014 Psychiatric No depression 08/13/2014 Musculoskeletal back pain 08/13/2014 Musculoskeletal joint complaint 2014 Physical Exam Exam Name System Name Item Name Status Result Effective Dates Notes Full Exam - Orthopedics Constitutional general appearance Overall: well nourished 03/26/2017 None Full Exam - Orthopedics Constitutional general appearance Overall: well developed 03/26/2017 None Full Exam - Orthopedics Constitutional general appearance Overall: in no acute distress 03/26/2017 None Full Exam - Orthopedics Eyes conjunctiva/ eyelids Overall: conjunctiva clear 03/26/2017 None Full Exam - Orthopedics Eyes conjunctiva/ eyelids Overall: eyelids normal 03/26/2017 None Full Exam - Orthopedics Ears/Nose/Throat lips/teeth/gingiva Overall: benign lips 03/26/2017 None Full Exam - Orthopedics Ears/Nose/Throat oral cavity/pharynx/larynx Overall: oral mucosa clear 03/26/2017 None Full Exam - Orthopedics Respiratory respiratory effort/rhythm Overall: no retractions 03/26/2017 None Full Exam - Orthopedics Respiratory respiratory effort/rhythm Overall: normal rate 03/26/2017 None Full Exam - Orthopedics Psychiatric orientation/consciousness Overall: oriented to person, place and time 03/26/2017 None Full Exam - Orthopedics Psychiatric mood and affect Overall: normal mood and affect 03/26/2017 None Full Exam - Orthopedics Psychiatric appearance Overall: well-groomed, good eye contact 03/26/2017 None Full Exam - Orthopedics MS: spine/rib/pelvis insp & palp - S/R/P Sacroiliac palpation: right sacroiliac joint tenderness 03/26/2017 None Full Exam - Orthopedics Cardiovascular examination of vasculature Overall: no clubbing, cyanosis, edema 03/26/2017 None Full Exam - Orthopedics Respiratory auscultation Overall: breath sounds clear bilaterally 03/26/2017 None Full Exam - General 1994 Constitutional general appearance Development: well developed 02/19/2017 None Full Exam - General 1994 Constitutional general appearance Development: appears stated age 1202/19/2017 None Full Exam - General 1994 Constitutional general appearance Hygiene/Attention to Grooming: good hygiene 02/19/2017 None Full Exam - General 1994 Eyes conjunctiva /eyelids Overall: conjunctiva clear 02/19/2017 None Full Exam - General 1994 Eyes conjunctiva /eyelids Overall: cornea clear 02/19/2017 None Full Exam - General 1994 Eyes conjunctiva /eyelids Overall: eyelids normal 02/19/2017 None Full Exam - General 1994 Eyes pupils and irises Overall: pupils equal, round, reactive to light and accomodation 02/19/2017 None Full Exam - General 1994 Ears/Nose/Throat otoscopic exam Overall: external auditory canals clear 02/19/2017 None Full Exam - General 1994 Ears/Nose/Throat otoscopic exam Overall: tympanic membranes clear 02/19/2017 None Full Exam - General 1994 Ears/Nose/Throat lips/teeth/gingiva Overall: benign lips 02/19/2017 None Full Exam - General 1994 Ears/Nose/Throat lips/teeth/gingiva Overall: normal dentition 02/19/2017 None Full Exam - General 1994 Ears/Nose/Throat oral cavity/pharynx/larynx Overall: oral mucosa clear 02/19/2017 None Full Exam - General 1994 Ears/Nose/Throat oral cavity/pharynx/larynx Overall: oropharyngeal mucosa clear 02/19/2017 None Full Exam - General 1994 Ears/Nose/Throat oral cavity/pharynx/larynx Overall: hypopharynx benign 02/19/2017 None Full Exam - General 1994 Ears/Nose/Throat oral cavity/pharynx/larynx Overall: no masses 02/19/2017 None Full Exam - General 1994 Respiratory auscultation Overall: breath sounds clear bilaterally 02/19/2017 None Full Exam - General 1994 Respiratory respiratory effort/rhythm Overall: no retractions 02/19/2017 None Full Exam - General 1994 Respiratory respiratory effort/rhythm Overall: normal rate 02/19/2017 None Full Exam - General 1994 Cardiovascular extremities Overall: no clubbing 02/19/2017 None Full Exam - General 1994 Cardiovascular auscultation of heart Overall: regular rate 02/19/2017 None Full Exam - General 1994 Cardiovascular auscultation of heart Overall: normal heart sounds 02/19/2017 None Full Exam - General 1994 Abdomen abdominal exam Overall: no tenderness 02/19/2017 None Full Exam - General 1994 Abdomen abdominal exam Overall: normal bowel sounds 02/19/2017 None Full Exam - General 1994 Lymphatic neck nodes Overall: anterior cervical chain benign 02/19/2017 None Full Exam - General 1994 Lymphatic neck nodes Overall: posterior cervical chain benign 02/19/2017 None Full Exam - General 1994 Neurologic deep tendon reflexes Overall: deep tendon reflexes intact 02/19/2017 None Full Exam - General 1994 Neurologic cranial nerves Overall: crainial nerves 2 - 12 grossly intact 02/19/2017 None Full Exam - General 1994 Psychiatric orientation/consciousness Overall: oriented to person, place and time 02/19/2017 None Full Exam - General 1994 Psychiatric mood and affect Overall: normal mood and affect 02/19/2017 None Full Exam - General 1994 Constitutional general appearance Development: well developed 01/16/2017 None Full Exam - General 1994 Constitutional general appearance Development: appears stated age 1101/16/2017 None Full Exam - General 1994 Constitutional general appearance Hygiene/Attention to Grooming: good hygiene 01/16/2017 None Full Exam - General 1994 Eyes conjunctiva /eyelids Overall: conjunctiva clear 01/16/2017 None Full Exam - General 1994 Eyes conjunctiva /eyelids Overall: cornea clear 01/16/2017 None Full Exam - General 1994 Eyes conjunctiva /eyelids Overall: eyelids normal 01/16/2017 None Full Exam - General 1994 Eyes pupils and irises Overall: pupils equal, round, reactive to light and accomodation 01/16/2017 None Full Exam - General 1994 Ears/Nose/Throat otoscopic exam Overall: external auditory canals clear 01/16/2017 None Full Exam - General 1994 Ears/Nose/Throat otoscopic exam Overall: tympanic membranes clear 01/16/2017 None Full Exam - General 1994 Ears/Nose/Throat lips/teeth/gingiva Overall: benign lips 01/16/2017 None Full Exam - General 1994 Ears/Nose/Throat lips/teeth/gingiva Overall: normal dentition 01/16/2017 None Full Exam - General 1994 Ears/Nose/Throat oral cavity/pharynx/larynx Overall: oral mucosa clear 01/16/2017 None Full Exam - General 1994 Ears/Nose/Throat oral cavity/pharynx/larynx Overall: oropharyngeal mucosa clear 01/16/2017 None Full Exam - General 1994 Ears/Nose/Throat oral cavity/pharynx/larynx Overall: hypopharynx benign 01/16/2017 None Full Exam - General 1994 Ears/Nose/Throat oral cavity/pharynx/larynx Overall: no masses 01/16/2017 None Full Exam - General 1994 Respiratory auscultation Overall: breath sounds clear bilaterally 01/16/2017 None Full Exam - General 1994 Respiratory respiratory effort/rhythm Overall: no retractions 01/16/2017 None Full Exam - General 1994 Respiratory respiratory effort/rhythm Overall: normal rate 01/16/2017 None Full Exam - General 1994 Cardiovascular extremities Overall: no clubbing 01/16/2017 None Full Exam - General 1994 Cardiovascular auscultation of heart Overall: regular rate 01/16/2017 None Full Exam - General 1994 Cardiovascular auscultation of heart Overall: normal heart sounds 01/16/2017 None Full Exam - General 1994 Abdomen abdominal exam Overall: no tenderness 01/16/2017 None Full Exam - General 1994 Abdomen abdominal exam Overall: normal bowel sounds 01/16/2017 None Full Exam - General 1994 Lymphatic neck nodes Overall: anterior cervical chain benign 01/16/2017 None Full Exam - General 1994 Lymphatic neck nodes Overall: posterior cervical chain benign 01/16/2017 None Full Exam - General 1994 Integument inspection of skin Overall: few scattered moles, no gross abnormalities 01/16/2017 None Full Exam - General 1994 Neurologic deep tendon reflexes Overall: deep tendon reflexes intact 01/16/2017 None Full Exam - General 1994 Neurologic cranial nerves Overall: crainial nerves 2 - 12 grossly intact 01/16/2017 None Full Exam - General 1994 Psychiatric orientation/consciousness Overall: oriented to person, place and time 01/16/2017 None Full Exam - General 1994 Psychiatric mood and affect Overall: normal mood and affect 01/16/2017 None Full Exam - General 1994 Constitutional general appearance Development: well developed 01/08/2017 None Full Exam - General 1994 Constitutional general appearance Development: appears stated age 1101/08/2017 None Full Exam - General 1994 Constitutional general appearance Hygiene/Attention to Grooming: good hygiene 01/08/2017 None Full Exam - General 1994 Eyes conjunctiva /eyelids Overall: conjunctiva clear 01/08/2017 None Full Exam - General 1994 Eyes conjunctiva /eyelids Overall: cornea clear 01/08/2017 None Full Exam - General 1994 Eyes conjunctiva /eyelids Overall: eyelids normal 01/08/2017 None Full Exam - General 1994 Eyes pupils and irises Overall: pupils equal, round, reactive to light and accomodation 01/08/2017 None Full Exam - General 1994 Ears/Nose/Throat otoscopic exam Overall: external auditory canals clear 01/08/2017 None Full Exam - General 1994 Ears/Nose/Throat otoscopic exam Overall: tympanic membranes clear 01/08/2017 None Full Exam - General 1994 Ears/Nose/Throat lips/teeth/gingiva Overall: benign lips 01/08/2017 None Full Exam - General 1994 Ears/Nose/Throat lips/teeth/gingiva Overall: normal dentition 01/08/2017 None Full Exam - General 1994 Ears/Nose/Throat oral cavity/pharynx/larynx Overall: oral mucosa clear 01/08/2017 None Full Exam - General 1994 Ears/Nose/Throat oral cavity/pharynx/larynx Overall: oropharyngeal mucosa clear 01/08/2017 None Full Exam - General 1994 Ears/Nose/Throat oral cavity/pharynx/larynx Overall: hypopharynx benign 01/08/2017 None Full Exam - General 1994 Ears/Nose/Throat oral cavity/pharynx/larynx Overall: no masses 01/08/2017 None Full Exam - General 1994 Respiratory auscultation Overall: breath sounds clear bilaterally 01/08/2017 None Full Exam - General 1994 Respiratory respiratory effort/rhythm Overall: no retractions 01/08/2017 None Full Exam - General 1994 Respiratory respiratory effort/rhythm Overall: normal rate 01/08/2017 None Full Exam - General 1994 Cardiovascular extremities Overall: no clubbing 01/08/2017 None Full Exam - General 1994 Cardiovascular auscultation of heart Overall: regular rate 01/08/2017 None Full Exam - General 1994 Cardiovascular auscultation of heart Overall: normal heart sounds 01/08/2017 None Full Exam - General 1994 Abdomen abdominal exam Overall: no tenderness 01/08/2017 None Full Exam - General 1994 Abdomen abdominal exam Overall: normal bowel sounds 01/08/2017 None Full Exam - General 1994 Lymphatic neck nodes Overall: anterior cervical chain benign 01/08/2017 None Full Exam - General 1994 Lymphatic neck nodes Overall: posterior cervical chain benign 01/08/2017 None Full Exam - General 1994 Neurologic deep tendon reflexes Overall: deep tendon reflexes intact 01/08/2017 None Full Exam - General 1994 Neurologic cranial nerves Overall: crainial nerves 2 - 12 grossly intact 01/08/2017 None Full Exam - General 1994 Psychiatric orientation/consciousness Overall: oriented to person, place and time 01/08/2017 None Full Exam - General 1994 Psychiatric mood and affect Overall: normal mood and affect 01/08/2017 None Full Exam - General 1994 Constitutional general appearance Development: well developed 11/21/2016 None Full Exam - General 1994 Constitutional general appearance Development: appears stated age 0911/21/2016 None Full Exam - General 1994 Constitutional general appearance Hygiene/Attention to Grooming: good hygiene 11/21/2016 None Full Exam - General 1994 Eyes conjunctiva /eyelids Overall: conjunctiva clear 11/21/2016 None Full Exam - General 1994 Eyes conjunctiva /eyelids Overall: cornea clear 11/21/2016 None Full Exam - General 1994 Eyes conjunctiva /eyelids Overall: eyelids normal 11/21/2016 None Full Exam - General 1994 Eyes pupils and irises Overall: pupils equal, round, reactive to light and accomodation 11/21/2016 None Full Exam - General 1994 Ears/Nose/Throat otoscopic exam Overall: external auditory canals clear 11/21/2016 None Full Exam - General 1994 Ears/Nose/Throat otoscopic exam Overall: tympanic membranes clear 11/21/2016 None Full Exam - General 1994 Ears/Nose/Throat lips/teeth/gingiva Overall: benign lips 11/21/2016 None Full Exam - General 1994 Ears/Nose/Throat lips/teeth/gingiva Overall: normal dentition 11/21/2016 None Full Exam - General 1994 Ears/Nose/Throat oral cavity/pharynx/larynx Overall: oral mucosa clear 11/21/2016 None Full Exam - General 1994 Ears/Nose/Throat oral cavity/pharynx/larynx Overall: oropharyngeal mucosa clear 11/21/2016 None Full Exam - General 1994 Ears/Nose/Throat oral cavity/pharynx/larynx Overall: hypopharynx benign 11/21/2016 None Full Exam - General 1994 Ears/Nose/Throat oral cavity/pharynx/larynx Overall: no masses 11/21/2016 None Full Exam - General 1994 Respiratory auscultation Overall: breath sounds clear bilaterally 11/21/2016 None Full Exam - General 1994 Respiratory respiratory effort/rhythm Overall: no retractions 11/21/2016 None Full Exam - General 1994 Respiratory respiratory effort/rhythm Overall: normal rate 11/21/2016 None Full Exam - General 1994 Cardiovascular extremities Overall: no clubbing 11/21/2016 None Full Exam - General 1994 Cardiovascular auscultation of heart Overall: regular rate 11/21/2016 None Full Exam - General 1994 Cardiovascular auscultation of heart Overall: normal heart sounds 11/21/2016 None Full Exam - General 1994 Abdomen abdominal exam Overall: no tenderness 11/21/2016 None Full Exam - General 1994 Abdomen abdominal exam Overall: normal bowel sounds 11/21/2016 None Full Exam - General 1994 Lymphatic neck nodes Overall: anterior cervical chain benign 11/21/2016 None Full Exam - General 1994 Lymphatic neck nodes Overall: posterior cervical chain benign 11/21/2016 None Full Exam - General 1994 Psychiatric orientation/consciousness Overall: oriented to person, place and time 11/21/2016 None Full Exam - General 1994 Psychiatric mood and affect Overall: normal mood and affect 11/21/2016 None Full Exam - General 1994 Constitutional general appearance Development: well developed 10/16/2016 None Full Exam - General 1994 Constitutional general appearance Development: appears stated age 0810/16/2016 None Full Exam - General 1994 Constitutional general appearance Hygiene/Attention to Grooming: good hygiene 10/16/2016 None Full Exam - General 1994 Eyes conjunctiva /eyelids Overall: conjunctiva clear 10/16/2016 None Full Exam - General 1994 Eyes conjunctiva /eyelids Overall: cornea clear 10/16/2016 None Full Exam - General 1994 Eyes conjunctiva /eyelids Overall: eyelids normal 10/16/2016 None Full Exam - General 1994 Eyes pupils and irises Overall: pupils equal, round, reactive to light and accomodation 10/16/2016 None Full Exam - General 1994 Ears/Nose/Throat otoscopic exam Overall: external auditory canals clear 10/16/2016 None Full Exam - General 1994 Ears/Nose/Throat otoscopic exam Overall: tympanic membranes clear 10/16/2016 None Full Exam - General 1994 Ears/Nose/Throat lips/teeth/gingiva Overall: benign lips 10/16/2016 None Full Exam - General 1994 Ears/Nose/Throat lips/teeth/gingiva Overall: normal dentition 10/16/2016 None Full Exam - General 1994 Ears/Nose/Throat oral cavity/pharynx/larynx Overall: oral mucosa clear 10/16/2016 None Full Exam - General 1994 Ears/Nose/Throat oral cavity/pharynx/larynx Overall: oropharyngeal mucosa clear 10/16/2016 None Full Exam - General 1994 Ears/Nose/Throat oral cavity/pharynx/larynx Overall: hypopharynx benign 10/16/2016 None Full Exam - General 1994 Ears/Nose/Throat oral cavity/pharynx/larynx Overall: no masses 10/16/2016 None Full Exam - General 1994 Respiratory auscultation Overall: breath sounds clear bilaterally 10/16/2016 None Full Exam - General 1994 Respiratory respiratory effort/rhythm Overall: no retractions 10/16/2016 None Full Exam - General 1994 Respiratory respiratory effort/rhythm Overall: normal rate 10/16/2016 None Full Exam - General 1994 Cardiovascular extremities Overall: no clubbing 10/16/2016 None Full Exam - General 1994 Cardiovascular auscultation of heart Overall: regular rate 10/16/2016 None Full Exam - General 1994 Cardiovascular auscultation of heart Overall: normal heart sounds 10/16/2016 None Full Exam - General 1994 Abdomen abdominal exam Overall: no tenderness 10/16/2016 None Full Exam - General 1994 Abdomen abdominal exam Overall: normal bowel sounds 10/16/2016 None Full Exam - General 1994 Lymphatic neck nodes Overall: anterior cervical chain benign 10/16/2016 None Full Exam - General 1994 Lymphatic neck nodes Overall: posterior cervical chain benign 10/16/2016 None Full Exam - General 1994 Integument inspection of skin Overall: few scattered moles, no gross abnormalities 10/16/2016 None Full Exam - General 1994 Neurologic deep tendon reflexes Overall: deep tendon reflexes intact 10/16/2016 None Full Exam - General 1994 Neurologic cranial nerves Overall: crainial nerves 2 - 12 grossly intact 10/16/2016 None Full Exam - General 1994 Psychiatric orientation/consciousness Overall: oriented to person, place and time 10/16/2016 None Full Exam - General 1994 Psychiatric mood and affect Overall: normal mood and affect 10/16/2016 None Full Exam - General 1994 Integument inspection of skin Location: face 10/16/2016 scabbed lesion on center of left forehead - Full Exam - ENT Constitutional general appearance Overall: well nourished 10/08/2016 None Full Exam - ENT Constitutional general appearance Overall: well developed 10/08/2016 None Full Exam - ENT Constitutional general appearance Overall: in no acute distress 10/08/2016 None Full Exam - ENT Ears/Nose/Throat otoscopic exam Overall: external auditory canals normal 10/08/2016 None Full Exam - ENT Ears/Nose/Throat otoscopic exam Left tympanic membrane: air -fluid level 10/08/2016 None Full Exam - ENT Ears/Nose/Throat otoscopic exam Right tympanic membrane: air-fluid level 10/08/2016 None Full Exam - ENT Ears/Nose/Throat lips/ teeth/gingiva Overall: benign lips 10/08/2016 None Full Exam - ENT Ears/Nose/Throat oropharynx Overall: oral mucosa clear 10/08/2016 None Full Exam - ENT Ears/Nose/Throat oropharynx Posterior Pharynx: clear post nasal drainage 10/08/2016 None Full Exam - ENT Face and Head palpation Overall: no sinus tenderness 10/08/2016 None Full Exam - ENT Respiratory inspection Overall: no retractions 10/08/2016 None Full Exam - ENT Respiratory inspection Overall: normal rate 09/2016 None Full Exam - ENT Respiratory auscultation Overall: breath sounds clear bilaterally 10/08/2016 None Full Exam - ENT Cardiovascular auscultation of heart Rate: normal rate 10/08/2016 None Full Exam - ENT Cardiovascular auscultation of heart Rhythm: regular rhythm 10/08/2016 None Full Exam - ENT Lymphatic palpation of lymph nodes Overall: anterior cervical chain benign 10/08/2016 None Full Exam - ENT Lymphatic palpation of lymph nodes Overall: posterior cervical chain benign 10/08/2016 None Full Exam - ENT Integument inspection of skin Overall: no rash, lesions 10/08/2016 None Full Exam - ENT Neurologic mood and affect Overall: normal mood 10/08/2016 None Full Exam - ENT Neurologic mood and affect Overall: normal affect 10/08/2016 None Full Exam - ENT Neurologic orientation Overall: oriented to person, place and time 10/08/2016 None Full Exam - ENT Constitutional general appearance Overall: well nourished 10/01/2016 None Full Exam - ENT Constitutional general appearance Overall: well developed 10/01/2016 None Full Exam - ENT Constitutional general appearance Overall: in no acute distress 10/01/2016 None Full Exam - ENT Ears/Nose/Throat otoscopic exam Overall: external auditory canals normal 10/01/2016 None Full Exam - ENT Ears/Nose/Throat otoscopic exam Left tympanic membrane: air -fluid level 10/01/2016 None Full Exam - ENT Ears/Nose/Throat otoscopic exam Right tympanic membrane: air-fluid level 10/01/2016 None Full Exam - ENT Ears/Nose/Throat lips/ teeth/gingiva Overall: benign lips 10/01/2016 None Full Exam - ENT Ears/Nose/Throat oropharynx Overall: oral mucosa clear 10/01/2016 None Full Exam - ENT Ears/Nose/Throat oropharynx Posterior Pharynx: clear post nasal drainage 10/01/2016 None Full Exam - ENT Face and Head palpation Overall: no sinus tenderness 10/01/2016 None Full Exam - ENT Respiratory inspection Overall: no retractions 10/01/2016 None Full Exam - ENT Respiratory inspection Overall: normal rate None Full Exam - ENT Respiratory auscultation Overall: breath sounds clear bilaterally 10/01/2016 None Full Exam - ENT Cardiovascular auscultation of heart Rate: normal rate 10/01/2016 None Full Exam - ENT Cardiovascular auscultation of heart Rhythm: regular rhythm 10/01/2016 None Full Exam - ENT Lymphatic palpation of lymph nodes Overall: anterior cervical chain benign 10/01/2016 None Full Exam - ENT Lymphatic palpation of lymph nodes Overall: posterior cervical chain benign 10/01/2016 None Full Exam - ENT Integument inspection of skin Overall: no rash, lesions 10/01/2016 None Full Exam - ENT Neurologic mood and affect Overall: normal mood 10/01/2016 None Full Exam - ENT Neurologic mood and affect Overall: normal affect 10/01/2016 None Full Exam - ENT Neurologic orientation Overall: oriented to person, place and time 10/01/2016 None Full Exam - ENT Constitutional general appearance Overall: well nourished 09/27/2016 None Full Exam - ENT Constitutional general appearance Overall: well developed 09/27/2016 None Full Exam - ENT Constitutional general appearance Overall: in no acute distress 09/27/2016 None Full Exam - ENT Ears/Nose/Throat otoscopic exam Overall: external auditory canals normal 09/27/2016 None Full Exam - ENT Ears/Nose/Throat otoscopic exam Left tympanic membrane: air -fluid level 09/27/2016 None Full Exam - ENT Ears/Nose/Throat otoscopic exam Right tympanic membrane: air-fluid level 09/27/2016 None Full Exam - ENT Ears/Nose/Throat lips/ teeth/gingiva Overall: benign lips 09/27/2016 None Full Exam - ENT Ears/Nose/Throat oropharynx Overall: oral mucosa clear 09/27/2016 None Full Exam - ENT Ears/Nose/Throat oropharynx Posterior Pharynx: clear post nasal drainage 09/27/2016 None Full Exam - ENT Respiratory inspection Overall: no retractions 09/27/2016 None Full Exam - ENT Respiratory inspection Overall: normal rate None Full Exam - ENT Respiratory auscultation Overall: breath sounds clear bilaterally 09/27/2016 None Full Exam - ENT Cardiovascular auscultation of heart Rate: normal rate 09/27/2016 None Full Exam - ENT Cardiovascular auscultation of heart Rhythm: regular rhythm 09/27/2016 None Full Exam - ENT Lymphatic palpation of lymph nodes Overall: anterior cervical chain benign 09/27/2016 None Full Exam - ENT Lymphatic palpation of lymph nodes Overall: posterior cervical chain benign 09/27/2016 None Full Exam - ENT Neurologic mood and affect Overall: normal mood 09/27/2016 None Full Exam - ENT Neurologic mood and affect Overall: normal affect 09/27/2016 None Full Exam - ENT Neurologic orientation Overall: oriented to person, place and time 09/27/2016 None Full Exam - ENT Face and Head palpation Overall: no sinus tenderness 09/27/2016 None Full Exam - ENT Integument inspection of skin Overall: no rash, lesions 09/27/2016 None Full Exam - General 1994 Constitutional general appearance Development: well developed 07/19/2016 None Full Exam - General 1994 Constitutional general appearance Development: appears stated age 0507/19/2016 None Full Exam - General 1994 Constitutional general appearance Hygiene/Attention to Grooming: good hygiene 07/19/2016 None Full Exam - General 1994 Eyes conjunctiva /eyelids Overall: conjunctiva clear 07/19/2016 None Full Exam - General 1994 Eyes conjunctiva /eyelids Overall: cornea clear 07/19/2016 None Full Exam - General 1994 Eyes conjunctiva /eyelids Overall: eyelids normal 07/19/2016 None Full Exam - General 1994 Eyes pupils and irises Overall: pupils equal, round, reactive to light and accomodation 07/19/2016 None Full Exam - General 1994 Ears/Nose/Throat otoscopic exam Overall: external auditory canals clear 07/19/2016 None Full Exam - General 1994 Ears/Nose/Throat otoscopic exam Overall: tympanic membranes clear 07/19/2016 None Full Exam - General 1994 Ears/Nose/Throat lips/teeth/gingiva Overall: benign lips 07/19/2016 None Full Exam - General 1994 Ears/Nose/Throat lips/teeth/gingiva Overall: normal dentition 07/19/2016 None Full Exam - General 1994 Ears/Nose/Throat oral cavity/pharynx/larynx Overall: oral mucosa clear 07/19/2016 None Full Exam - General 1994 Ears/Nose/Throat oral cavity/pharynx/larynx Overall: oropharyngeal mucosa clear 07/19/2016 None Full Exam - General 1994 Ears/Nose/Throat oral cavity/pharynx/larynx Overall: hypopharynx benign 07/19/2016 None Full Exam - General 1994 Ears/Nose/Throat oral cavity/pharynx/larynx Overall: no masses 07/19/2016 None Full Exam - General 1994 Respiratory auscultation Overall: breath sounds clear bilaterally 07/19/2016 None Full Exam - General 1994 Respiratory respiratory effort/rhythm Overall: no retractions 07/19/2016 None Full Exam - General 1994 Respiratory respiratory effort/rhythm Overall: normal rate 07/19/2016 None Full Exam - General 1994 Cardiovascular extremities Overall: no clubbing 07/19/2016 None Full Exam - General 1994 Cardiovascular auscultation of heart Overall: regular rate 07/19/2016 None Full Exam - General 1994 Cardiovascular auscultation of heart Overall: normal heart sounds 07/19/2016 None Full Exam - General 1994 Abdomen abdominal exam Overall: no tenderness 07/19/2016 None Full Exam - General 1994 Abdomen abdominal exam Overall: normal bowel sounds 07/19/2016 None Full Exam - General 1994 Lymphatic neck nodes Overall: anterior cervical chain benign 07/19/2016 None Full Exam - General 1994 Lymphatic neck nodes Overall: posterior cervical chain benign 07/19/2016 None Full Exam - General 1994 Integument inspection of skin Overall: few scattered moles, no gross abnormalities 07/19/2016 None Full Exam - General 1994 Neurologic deep tendon reflexes Overall: deep tendon reflexes intact 07/19/2016 None Full Exam - General 1994 Neurologic cranial nerves Overall: crainial nerves 2 - 12 grossly intact 07/19/2016 None Full Exam - General 1994 Psychiatric orientation/consciousness Overall: oriented to person, place and time 07/19/2016 None Full Exam - General 1994 Psychiatric mood and affect Overall: normal mood and affect 07/19/2016 None Full Exam - General 1994 Constitutional general appearance Hygiene/Attention to Grooming: good hygiene 07/10/2016 None Full Exam - General 1994 Eyes conjunctiva /eyelids Overall: conjunctiva clear 07/10/2016 None Full Exam - General 1994 Eyes conjunctiva /eyelids Overall: eyelids normal 07/10/2016 None Full Exam - General 1994 Eyes pupils and irises Overall: pupils equal, round, reactive to light and accomodation 07/10/2016 None Full Exam - General 1994 Ears/Nose/Throat lips/teeth/gingiva Overall: benign lips 07/10/2016 None Full Exam - General 1994 Ears/Nose/Throat oral cavity/pharynx/larynx Overall: oral mucosa clear 07/10/2016 None Full Exam - General 1994 Ears/Nose/Throat oral cavity/pharynx/larynx Overall: oropharyngeal mucosa clear 07/10/2016 None Full Exam - General 1994 Respiratory auscultation Overall: breath sounds clear bilaterally 07/10/2016 None Full Exam - General 1994 Respiratory respiratory effort/rhythm Overall: no retractions 07/10/2016 None Full Exam - General 1994 Respiratory respiratory effort/rhythm Overall: normal rate 07/10/2016 None Full Exam - General 1994 Cardiovascular extremities Overall: no clubbing 07/10/2016 None Full Exam - General 1994 Cardiovascular auscultation of heart Overall: regular rate 07/10/2016 None Full Exam - General 1994 Cardiovascular auscultation of heart Overall: normal heart sounds 07/10/2016 None Full Exam - General 1994 Neurologic cranial nerves Overall: crainial nerves 2 - 12 grossly intact 07/10/2016 None Full Exam - General 1994 Psychiatric orientation/consciousness Overall: oriented to person, place and time 07/10/2016 None Full Exam - General 1994 Psychiatric mood and affect Overall: normal mood and affect 07/10/2016 None Full Exam - General 1994 Constitutional general appearance Overall: well developed 07/10/2016 None Full Exam - General 1994 Constitutional general appearance Overall: in no acute distress 07/10/2016 None Full Exam - General 1994 Constitutional general appearance Overall: well nourished 07/10/2016 None Full Exam - General 1994 Constitutional general appearance Development: well developed 07/09/2016 None Full Exam - General 1994 Constitutional general appearance Development: appears stated age 0507/09/2016 None Full Exam - General 1994 Constitutional general appearance Hygiene/Attention to Grooming: good hygiene 07/09/2016 None Full Exam - General 1994 Eyes conjunctiva /eyelids Overall: conjunctiva clear 07/09/2016 None Full Exam - General 1994 Eyes conjunctiva /eyelids Overall: cornea clear 07/09/2016 None Full Exam - General 1994 Eyes conjunctiva /eyelids Overall: eyelids normal 07/09/2016 None Full Exam - General 1994 Eyes pupils and irises Overall: pupils equal, round, reactive to light and accomodation 07/09/2016 None Full Exam - General 1994 Ears/Nose/Throat otoscopic exam Overall: external auditory canals clear 07/09/2016 None Full Exam - General 1994 Ears/Nose/Throat otoscopic exam Overall: tympanic membranes clear 07/09/2016 None Full Exam - General 1994 Ears/Nose/Throat lips/teeth/gingiva Overall: benign lips 07/09/2016 None Full Exam - General 1994 Ears/Nose/Throat lips/teeth/gingiva Overall: normal dentition 07/09/2016 None Full Exam - General 1994 Ears/Nose/Throat oral cavity/pharynx/larynx Overall: oral mucosa clear 07/09/2016 None Full Exam - General 1994 Ears/Nose/Throat oral cavity/pharynx/larynx Overall: oropharyngeal mucosa clear 07/09/2016 None Full Exam - General 1994 Ears/Nose/Throat oral cavity/pharynx/larynx Overall: hypopharynx benign 07/09/2016 None Full Exam - General 1994 Ears/Nose/Throat oral cavity/pharynx/larynx Overall: no masses 07/09/2016 None Full Exam - General 1994 Respiratory auscultation Overall: breath sounds clear bilaterally 07/09/2016 None Full Exam - General 1994 Respiratory respiratory effort/rhythm Overall: no retractions 07/09/2016 None Full Exam - General 1994 Respiratory respiratory effort/rhythm Overall: normal rate 07/09/2016 None Full Exam - General 1994 Cardiovascular extremities Overall: no clubbing 07/09/2016 None Full Exam - General 1994 Cardiovascular auscultation of heart Overall: regular rate 07/09/2016 None Full Exam - General 1994 Cardiovascular auscultation of heart Overall: normal heart sounds 07/09/2016 None Full Exam - General 1994 Abdomen abdominal exam Overall: no tenderness 07/09/2016 None Full Exam - General 1994 Abdomen abdominal exam Overall: normal bowel sounds 07/09/2016 None Full Exam - General 1994 Lymphatic neck nodes Overall: anterior cervical chain benign 07/09/2016 None Full Exam - General 1994 Lymphatic neck nodes Overall: posterior cervical chain benign 07/09/2016 None Full Exam - General 1994 Integument inspection of skin Overall: few scattered moles, no gross abnormalities 07/09/2016 None Full Exam - General 1994 Neurologic deep tendon reflexes Overall: deep tendon reflexes intact 07/09/2016 None Full Exam - General 1994 Neurologic cranial nerves Overall: crainial nerves 2 - 12 grossly intact 07/09/2016 None Full Exam - General 1994 Psychiatric orientation/consciousness Overall: oriented to person, place and time 07/09/2016 None Full Exam - General 1994 Psychiatric mood and affect Overall: normal mood and affect 07/09/2016 None Full Exam - General 1994 Constitutional general appearance Development: well developed 06/06/2016 None Full Exam - General 1994 Constitutional general appearance Development: appears stated age 0406/06/2016 None Full Exam - General 1994 Constitutional general appearance Hygiene/Attention to Grooming: good hygiene 06/06/2016 None Full Exam - General 1994 Eyes conjunctiva /eyelids Overall: conjunctiva clear 06/06/2016 None Full Exam - General 1994 Eyes conjunctiva /eyelids Overall: cornea clear 06/06/2016 None Full Exam - General 1994 Eyes conjunctiva /eyelids Overall: eyelids normal 06/06/2016 None Full Exam - General 1994 Eyes pupils and irises Overall: pupils equal, round, reactive to light and accomodation 06/06/2016 None Full Exam - General 1994 Ears/Nose/Throat otoscopic exam Overall: external auditory canals clear 06/06/2016 None Full Exam - General 1994 Ears/Nose/Throat otoscopic exam Overall: tympanic membranes clear 06/06/2016 None Full Exam - General 1994 Ears/Nose/Throat lips/teeth/gingiva Overall: benign lips 06/06/2016 None Full Exam - General 1994 Ears/Nose/Throat lips/teeth/gingiva Overall: normal dentition 06/06/2016 None Full Exam - General 1994 Ears/Nose/Throat oral cavity/pharynx/larynx Overall: oral mucosa clear 06/06/2016 None Full Exam - General 1994 Ears/Nose/Throat oral cavity/pharynx/larynx Overall: oropharyngeal mucosa clear 06/06/2016 None Full Exam - General 1994 Ears/Nose/Throat oral cavity/pharynx/larynx Overall: hypopharynx benign 06/06/2016 None Full Exam - General 1994 Ears/Nose/Throat oral cavity/pharynx/larynx Overall: no masses 06/06/2016 None Full Exam - General 1994 Respiratory auscultation Overall: breath sounds clear bilaterally 06/06/2016 None Full Exam - General 1994 Respiratory respiratory effort/rhythm Overall: no retractions 06/06/2016 None Full Exam - General 1994 Respiratory respiratory effort/rhythm Overall: normal rate 06/06/2016 None Full Exam - General 1994 Cardiovascular extremities Overall: no clubbing 06/06/2016 None Full Exam - General 1994 Cardiovascular auscultation of heart Overall: regular rate 06/06/2016 None Full Exam - General 1994 Cardiovascular auscultation of heart Overall: normal heart sounds 06/06/2016 None Full Exam - General 1994 Abdomen abdominal exam Overall: no tenderness 06/06/2016 None Full Exam - General 1994 Abdomen abdominal exam Overall: normal bowel sounds 06/06/2016 None Full Exam - General 1994 Lymphatic neck nodes Overall: anterior cervical chain benign 06/06/2016 None Full Exam - General 1994 Lymphatic neck nodes Overall: posterior cervical chain benign 06/06/2016 None Full Exam - General 1994 Integument inspection of skin Overall: few scattered moles, no gross abnormalities 06/06/2016 None Full Exam - General 1994 Neurologic deep tendon reflexes Overall: deep tendon reflexes intact 06/06/2016 None Full Exam - General 1994 Neurologic cranial nerves Overall: crainial nerves 2 - 12 grossly intact 06/06/2016 None Full Exam - General 1994 Psychiatric orientation/consciousness Overall: oriented to person, place and time 06/06/2016 None Full Exam - General 1994 Psychiatric mood and affect Overall: normal mood and affect 06/06/2016 None Full Exam - ENT Constitutional general appearance Overall: well nourished 04/03/2016 None Full Exam - ENT Constitutional general appearance Overall: well developed 04/03/2016 None Full Exam - ENT Constitutional general appearance Overall: in no acute distress 04/03/2016 None Full Exam - ENT Ears/Nose/Throat otoscopic exam Overall: external auditory canals normal 04/03/2016 None Full Exam - ENT Ears/Nose/Throat otoscopic exam Left tympanic membrane: air -fluid level 04/03/2016 None Full Exam - ENT Ears/Nose/Throat otoscopic exam Right tympanic membrane: air-fluid level 04/03/2016 None Full Exam - ENT Ears/Nose/Throat lips/ teeth/gingiva Overall: benign lips 04/03/2016 None Full Exam - ENT Ears/Nose/Throat oropharynx Overall: oral mucosa clear 04/03/2016 None Full Exam - ENT Ears/Nose/Throat oropharynx Posterior Pharynx: clear post nasal drainage 04/03/2016 None Full Exam - ENT Respiratory inspection Overall: no retractions 04/03/2016 None Full Exam - ENT Respiratory inspection Overall: normal rate None Full Exam - ENT Respiratory auscultation Overall: breath sounds clear bilaterally 04/03/2016 None Full Exam - ENT Cardiovascular auscultation of heart Rate: normal rate 04/03/2016 None Full Exam - ENT Cardiovascular auscultation of heart Rhythm: regular rhythm 04/03/2016 None Full Exam - ENT Lymphatic palpation of lymph nodes Overall: anterior cervical chain benign 04/03/2016 None Full Exam - ENT Lymphatic palpation of lymph nodes Overall: posterior cervical chain benign 04/03/2016 None Full Exam - ENT Neurologic mood and affect Overall: normal mood 04/03/2016 None Full Exam - ENT Neurologic mood and affect Overall: normal affect 04/03/2016 None Full Exam - ENT Neurologic orientation Overall: oriented to person, place and time 04/03/2016 None Full Exam - General 1994 Constitutional general appearance Development: well developed 12/26/2015 None Full Exam - General 1994 Constitutional general appearance Development: appears stated age 1012/26/2015 None Full Exam - General 1994 Constitutional general appearance Hygiene/Attention to Grooming: good hygiene 12/26/2015 None Full Exam - General 1994 Eyes conjunctiva /eyelids Overall: conjunctiva clear 12/26/2015 None Full Exam - General 1994 Eyes conjunctiva /eyelids Overall: cornea clear 12/26/2015 None Full Exam - General 1994 Eyes conjunctiva /eyelids Overall: eyelids normal 12/26/2015 None Full Exam - General 1994 Eyes pupils and irises Overall: pupils equal, round, reactive to light and accomodation 12/26/2015 None Full Exam - General 1994 Ears/Nose/Throat otoscopic exam Overall: external auditory canals clear 12/26/2015 None Full Exam - General 1994 Ears/Nose/Throat otoscopic exam Overall: tympanic membranes clear 12/26/2015 None Full Exam - General 1994 Ears/Nose/Throat lips/teeth/gingiva Overall: benign lips 12/26/2015 None Full Exam - General 1994 Ears/Nose/Throat lips/teeth/gingiva Overall: normal dentition 12/26/2015 None Full Exam - General 1994 Ears/Nose/Throat oral cavity/pharynx/larynx Overall: oral mucosa clear 12/26/2015 None Full Exam - General 1994 Ears/Nose/Throat oral cavity/pharynx/larynx Overall: oropharyngeal mucosa clear 12/26/2015 None Full Exam - General 1994 Ears/Nose/Throat oral cavity/pharynx/larynx Overall: hypopharynx benign 12/26/2015 None Full Exam - General 1994 Ears/Nose/Throat oral cavity/pharynx/larynx Overall: no masses 12/26/2015 None Full Exam - General 1994 Respiratory auscultation Overall: breath sounds clear bilaterally 12/26/2015 None Full Exam - General 1994 Respiratory respiratory effort/rhythm Overall: no retractions 12/26/2015 None Full Exam - General 1994 Respiratory respiratory effort/rhythm Overall: normal rate 12/26/2015 None Full Exam - General 1994 Cardiovascular extremities Overall: no clubbing 12/26/2015 None Full Exam - General 1994 Cardiovascular auscultation of heart Overall: regular rate 12/26/2015 None Full Exam - General 1994 Cardiovascular auscultation of heart Overall: normal heart sounds 12/26/2015 None Full Exam - General 1994 Abdomen abdominal exam Overall: no tenderness 12/26/2015 None Full Exam - General 1994 Abdomen abdominal exam Overall: normal bowel sounds 12/26/2015 None Full Exam - General 1994 Lymphatic neck nodes Overall: anterior cervical chain benign 12/26/2015 None Full Exam - General 1994 Lymphatic neck nodes Overall: posterior cervical chain benign 12/26/2015 None Full Exam - General 1994 Integument inspection of skin Overall: few scattered moles, no gross abnormalities 12/26/2015 None Full Exam - General 1994 Neurologic deep tendon reflexes Overall: deep tendon reflexes intact 12/26/2015 None Full Exam - General 1994 Neurologic cranial nerves Overall: crainial nerves 2 - 12 grossly intact 12/26/2015 None Full Exam - General 1994 Psychiatric orientation/consciousness Overall: oriented to person, place and time 12/26/2015 None Full Exam - General 1994 Psychiatric mood and affect Overall: normal mood and affect 12/26/2015 None Full Exam - General 1994 Constitutional general appearance Development: well developed 09/19/2015 None Full Exam - General 1994 Constitutional general appearance Development: appears stated age 0709/19/2015 None Full Exam - General 1994 Constitutional general appearance Hygiene/Attention to Grooming: good hygiene 09/19/2015 None Full Exam - General 1994 Eyes conjunctiva /eyelids Overall: conjunctiva clear 09/19/2015 None Full Exam - General 1994 Eyes conjunctiva /eyelids Overall: cornea clear 09/19/2015 None Full Exam - General 1994 Eyes conjunctiva /eyelids Overall: eyelids normal 09/19/2015 None Full Exam - General 1994 Eyes pupils and irises Overall: pupils equal, round, reactive to light and accomodation 09/19/2015 None Full Exam - General 1994 Ears/Nose/Throat otoscopic exam Overall: external auditory canals clear 09/19/2015 None Full Exam - General 1994 Ears/Nose/Throat otoscopic exam Overall: tympanic membranes clear 09/19/2015 None Full Exam - General 1994 Ears/Nose/Throat lips/teeth/gingiva Overall: benign lips 09/19/2015 None Full Exam - General 1994 Ears/Nose/Throat lips/teeth/gingiva Overall: normal dentition 09/19/2015 None Full Exam - General 1994 Ears/Nose/Throat oral cavity/pharynx/larynx Overall: oral mucosa clear 09/19/2015 None Full Exam - General 1994 Ears/Nose/Throat oral cavity/pharynx/larynx Overall: oropharyngeal mucosa clear 09/19/2015 None Full Exam - General 1994 Ears/Nose/Throat oral cavity/pharynx/larynx Overall: hypopharynx benign 09/19/2015 None Full Exam - General 1994 Ears/Nose/Throat oral cavity/pharynx/larynx Overall: no masses 09/19/2015 None Full Exam - General 1994 Respiratory auscultation Overall: breath sounds clear bilaterally 09/19/2015 None Full Exam - General 1994 Respiratory respiratory effort/rhythm Overall: no retractions 09/19/2015 None Full Exam - General 1994 Respiratory respiratory effort/rhythm Overall: normal rate 09/19/2015 None Full Exam - General 1994 Cardiovascular extremities Overall: no clubbing 09/19/2015 None Full Exam - General 1994 Cardiovascular auscultation of heart Overall: regular rate 09/19/2015 None Full Exam - General 1994 Cardiovascular auscultation of heart Overall: normal heart sounds 09/19/2015 None Full Exam - General 1994 Abdomen abdominal exam Overall: no tenderness 09/19/2015 None Full Exam - General 1994 Abdomen abdominal exam Overall: normal bowel sounds 09/19/2015 None Full Exam - General 1994 Lymphatic neck nodes Overall: anterior cervical chain benign 09/19/2015 None Full Exam - General 1994 Lymphatic neck nodes Overall: posterior cervical chain benign 09/19/2015 None Full Exam - General 1994 Integument inspection of skin Overall: few scattered moles, no gross abnormalities 09/19/2015 None Full Exam - General 1994 Neurologic deep tendon reflexes Overall: deep tendon reflexes intact 09/19/2015 None Full Exam - General 1994 Neurologic cranial nerves Overall: crainial nerves 2 - 12 grossly intact 09/19/2015 None Full Exam - General 1994 Psychiatric orientation/consciousness Overall: oriented to person, place and time 09/19/2015 None Full Exam - General 1994 Psychiatric mood and affect Overall: normal mood and affect 09/19/2015 None Full Exam - General 1994 Constitutional general appearance Development: well developed 07/19/2015 None Full Exam - General 1994 Constitutional general appearance Development: appears stated age 0507/19/2015 None Full Exam - General 1994 Constitutional general appearance Hygiene/Attention to Grooming: good hygiene 07/19/2015 None Full Exam - General 1994 Eyes conjunctiva /eyelids Overall: conjunctiva clear 07/19/2015 None Full Exam - General 1994 Eyes conjunctiva /eyelids Overall: cornea clear 07/19/2015 None Full Exam - General 1994 Eyes conjunctiva /eyelids Overall: eyelids normal 07/19/2015 None Full Exam - General 1994 Eyes pupils and irises Overall: pupils equal, round, reactive to light and accomodation 07/19/2015 None Full Exam - General 1994 Ears/Nose/Throat otoscopic exam Overall: external auditory canals clear 07/19/2015 None Full Exam - General 1994 Ears/Nose/Throat otoscopic exam Overall: tympanic membranes clear 07/19/2015 None Full Exam - General 1994 Ears/Nose/Throat lips/teeth/gingiva Overall: benign lips 07/19/2015 None Full Exam - General 1994 Ears/Nose/Throat lips/teeth/gingiva Overall: normal dentition 07/19/2015 None Full Exam - General 1994 Ears/Nose/Throat oral cavity/pharynx/larynx Overall: oral mucosa clear 07/19/2015 None Full Exam - General 1994 Ears/Nose/Throat oral cavity/pharynx/larynx Overall: oropharyngeal mucosa clear 07/19/2015 None Full Exam - General 1994 Ears/Nose/Throat oral cavity/pharynx/larynx Overall: hypopharynx benign 07/19/2015 None Full Exam - General 1994 Ears/Nose/Throat oral cavity/pharynx/larynx Overall: no masses 07/19/2015 None Full Exam - General 1994 Respiratory auscultation Overall: breath sounds clear bilaterally 07/19/2015 None Full Exam - General 1994 Respiratory respiratory effort/rhythm Overall: no retractions 07/19/2015 None Full Exam - General 1994 Respiratory respiratory effort/rhythm Overall: normal rate 07/19/2015 None Full Exam - General 1994 Cardiovascular extremities Overall: no clubbing 07/19/2015 None Full Exam - General 1994 Cardiovascular auscultation of heart Overall: regular rate 07/19/2015 None Full Exam - General 1994 Cardiovascular auscultation of heart Overall: normal heart sounds 07/19/2015 None Full Exam - General 1994 Abdomen abdominal exam Overall: no tenderness 07/19/2015 None Full Exam - General 1994 Abdomen abdominal exam Overall: normal bowel sounds 07/19/2015 None Full Exam - General 1994 Lymphatic neck nodes Overall: anterior cervical chain benign 07/19/2015 None Full Exam - General 1994 Lymphatic neck nodes Overall: posterior cervical chain benign 07/19/2015 None Full Exam - General 1994 Integument inspection of skin Overall: few scattered moles, no gross abnormalities 07/19/2015 None Full Exam - General 1994 Neurologic deep tendon reflexes Overall: deep tendon reflexes intact 07/19/2015 None Full Exam - General 1994 Neurologic cranial nerves Overall: crainial nerves 2 - 12 grossly intact 07/19/2015 None Full Exam - General 1994 Psychiatric orientation/consciousness Overall: oriented to person, place and time 07/19/2015 None Full Exam - General 1994 Psychiatric mood and affect Overall: normal mood and affect 07/19/2015 None Full Exam - General 1994 Constitutional general appearance Development: well developed 03/22/2015 None Full Exam - General 1994 Constitutional general appearance Development: appears stated age 0103/22/2015 None Full Exam - General 1994 Constitutional general appearance Hygiene/Attention to Grooming: good hygiene 03/22/2015 None Full Exam - General 1994 Eyes conjunctiva /eyelids Overall: conjunctiva clear 03/22/2015 None Full Exam - General 1994 Eyes conjunctiva /eyelids Overall: cornea clear 03/22/2015 None Full Exam - General 1994 Eyes conjunctiva /eyelids Overall: eyelids normal 03/22/2015 None Full Exam - General 1994 Eyes pupils and irises Overall: pupils equal, round, reactive to light and accomodation 03/22/2015 None Full Exam - General 1994 Ears/Nose/Throat otoscopic exam Overall: external auditory canals clear 03/22/2015 None Full Exam - General 1994 Ears/Nose/Throat otoscopic exam Overall: tympanic membranes clear 03/22/2015 None Full Exam - General 1994 Ears/Nose/Throat lips/teeth/gingiva Overall: benign lips 03/22/2015 None Full Exam - General 1994 Ears/Nose/Throat lips/teeth/gingiva Overall: normal dentition 03/22/2015 None Full Exam - General 1994 Ears/Nose/Throat oral cavity/pharynx/larynx Overall: oral mucosa clear 03/22/2015 None Full Exam - General 1994 Ears/Nose/Throat oral cavity/pharynx/larynx Overall: oropharyngeal mucosa clear 03/22/2015 None Full Exam - General 1994 Ears/Nose/Throat oral cavity/pharynx/larynx Overall: hypopharynx benign 03/22/2015 None Full Exam - General 1994 Ears/Nose/Throat oral cavity/pharynx/larynx Overall: no masses 03/22/2015 None Full Exam - General 1994 Respiratory auscultation Overall: breath sounds clear bilaterally 03/22/2015 None Full Exam - General 1994 Respiratory respiratory effort/rhythm Overall: no retractions 03/22/2015 None Full Exam - General 1994 Respiratory respiratory effort/rhythm Overall: normal rate 03/22/2015 None Full Exam - General 1994 Cardiovascular extremities Overall: no clubbing 03/22/2015 None Full Exam - General 1994 Cardiovascular auscultation of heart Overall: regular rate 03/22/2015 None Full Exam - General 1994 Cardiovascular auscultation of heart Overall: normal heart sounds 03/22/2015 None Full Exam - General 1994 Abdomen abdominal exam Overall: no tenderness 03/22/2015 None Full Exam - General 1994 Abdomen abdominal exam Overall: normal bowel sounds 03/22/2015 None Full Exam - General 1994 Lymphatic neck nodes Overall: anterior cervical chain benign 03/22/2015 None Full Exam - General 1994 Lymphatic neck nodes Overall: posterior cervical chain benign 03/22/2015 None Full Exam - General 1994 Integument inspection of skin Overall: few scattered moles, no gross abnormalities 03/22/2015 None Full Exam - General 1994 Neurologic deep tendon reflexes Overall: deep tendon reflexes intact 03/22/2015 None Full Exam - General 1994 Neurologic cranial nerves Overall: crainial nerves 2 - 12 grossly intact 03/22/2015 None Full Exam - General 1994 Psychiatric orientation/consciousness Overall: oriented to person, place and time 03/22/2015 None Full Exam - General 1994 Psychiatric mood and affect Overall: normal mood and affect 03/22/2015 None Full Exam - General 1994 Constitutional general appearance Development: well developed 02/15/2015 None Full Exam - General 1994 Constitutional general appearance Development: appears stated age 1202/15/2015 None Full Exam - General 1994 Constitutional general appearance Hygiene/Attention to Grooming: good hygiene 02/15/2015 None Full Exam - General 1994 Eyes conjunctiva /eyelids Overall: conjunctiva clear 02/15/2015 None Full Exam - General 1994 Eyes conjunctiva /eyelids Overall: cornea clear 02/15/2015 None Full Exam - General 1994 Eyes conjunctiva /eyelids Overall: eyelids normal 02/15/2015 None Full Exam - General 1994 Eyes pupils and irises Overall: pupils equal, round, reactive to light and accomodation 02/15/2015 None Full Exam - General 1994 Ears/Nose/Throat otoscopic exam Overall: external auditory canals clear 02/15/2015 None Full Exam - General 1994 Ears/Nose/Throat otoscopic exam Overall: tympanic membranes clear 02/15/2015 None Full Exam - General 1994 Ears/Nose/Throat lips/teeth/gingiva Overall: benign lips 02/15/2015 None Full Exam - General 1994 Ears/Nose/Throat lips/teeth/gingiva Overall: normal dentition 02/15/2015 None Full Exam - General 1994 Ears/Nose/Throat oral cavity/pharynx/larynx Overall: oral mucosa clear 02/15/2015 None Full Exam - General 1994 Ears/Nose/Throat oral cavity/pharynx/larynx Overall: oropharyngeal mucosa clear 02/15/2015 None Full Exam - General 1994 Ears/Nose/Throat oral cavity/pharynx/larynx Overall: hypopharynx benign 02/15/2015 None Full Exam - General 1994 Ears/Nose/Throat oral cavity/pharynx/larynx Overall: no masses 02/15/2015 None Full Exam - General 1994 Respiratory auscultation Overall: breath sounds clear bilaterally 02/15/2015 None Full Exam - General 1994 Respiratory respiratory effort/rhythm Overall: no retractions 02/15/2015 None Full Exam - General 1994 Respiratory respiratory effort/rhythm Overall: normal rate 02/15/2015 None Full Exam - General 1994 Cardiovascular extremities Overall: no clubbing 02/15/2015 None Full Exam - General 1994 Cardiovascular auscultation of heart Overall: regular rate 02/15/2015 None Full Exam - General 1994 Cardiovascular auscultation of heart Overall: normal heart sounds 02/15/2015 None Full Exam - General 1994 Abdomen abdominal exam Overall: no tenderness 02/15/2015 None Full Exam - General 1994 Abdomen abdominal exam Overall: normal bowel sounds 02/15/2015 None Full Exam - General 1994 Lymphatic neck nodes Overall: anterior cervical chain benign 02/15/2015 None Full Exam - General 1994 Lymphatic neck nodes Overall: posterior cervical chain benign 02/15/2015 None Full Exam - General 1994 Integument inspection of skin Overall: few scattered moles, no gross abnormalities 02/15/2015 None Full Exam - General 1994 Neurologic deep tendon reflexes Overall: deep tendon reflexes intact 02/15/2015 None Full Exam - General 1994 Neurologic cranial nerves Overall: crainial nerves 2 - 12 grossly intact 02/15/2015 None Full Exam - General 1994 Psychiatric orientation/consciousness Overall: oriented to person, place and time 02/15/2015 None Full Exam - General 1994 Psychiatric mood and affect Overall: normal mood and affect 02/15/2015 None Full Exam - General 1994 Constitutional general appearance Development: well developed 11/15/2014 None Full Exam - General 1994 Constitutional general appearance Development: appears stated age 0911/15/2014 None Full Exam - General 1994 Constitutional general appearance Hygiene/Attention to Grooming: good hygiene 11/15/2014 None Full Exam - General 1994 Eyes conjunctiva /eyelids Overall: conjunctiva clear 11/15/2014 None Full Exam - General 1994 Eyes conjunctiva /eyelids Overall: cornea clear 11/15/2014 None Full Exam - General 1994 Eyes conjunctiva /eyelids Overall: eyelids normal 11/15/2014 None Full Exam - General 1994 Eyes pupils and irises Overall: pupils equal, round, reactive to light and accomodation 11/15/2014 None Full Exam - General 1994 Ears/Nose/Throat otoscopic exam Overall: external auditory canals clear 11/15/2014 None Full Exam - General 1994 Ears/Nose/Throat otoscopic exam Overall: tympanic membranes clear 11/15/2014 None Full Exam - General 1994 Ears/Nose/Throat lips/teeth/gingiva Overall: benign lips 11/15/2014 None Full Exam - General 1994 Ears/Nose/Throat lips/teeth/gingiva Overall: normal dentition 11/15/2014 None Full Exam - General 1994 Ears/Nose/Throat oral cavity/pharynx/larynx Overall: oral mucosa clear 11/15/2014 None Full Exam - General 1994 Ears/Nose/Throat oral cavity/pharynx/larynx Overall: oropharyngeal mucosa clear 11/15/2014 None Full Exam - General 1994 Ears/Nose/Throat oral cavity/pharynx/larynx Overall: hypopharynx benign 11/15/2014 None Full Exam - General 1994 Ears/Nose/Throat oral cavity/pharynx/larynx Overall: no masses 11/15/2014 None Full Exam - General 1994 Respiratory auscultation Overall: breath sounds clear bilaterally 11/15/2014 None Full Exam - General 1994 Respiratory respiratory effort/rhythm Overall: no retractions 11/15/2014 None Full Exam - General 1994 Respiratory respiratory effort/rhythm Overall: normal rate 11/15/2014 None Full Exam - General 1994 Cardiovascular extremities Overall: no clubbing 11/15/2014 None Full Exam - General 1994 Cardiovascular auscultation of heart Overall: regular rate 11/15/2014 None Full Exam - General 1994 Cardiovascular auscultation of heart Overall: normal heart sounds 11/15/2014 None Full Exam - General 1994 Abdomen abdominal exam Overall: no tenderness 11/15/2014 None Full Exam - General 1994 Abdomen abdominal exam Overall: normal bowel sounds 11/15/2014 None Full Exam - General 1994 Lymphatic neck nodes Overall: anterior cervical chain benign 11/15/2014 None Full Exam - General 1994 Lymphatic neck nodes Overall: posterior cervical chain benign 11/15/2014 None Full Exam - General 1994 Musculoskeletal head and neck Overall: head atraumatic 11/15/2014 None Full Exam - General 1994 Musculoskeletal head and neck Overall: cervical spine benign 11/15/2014 None Full Exam - General 1994 Integument inspection of skin Overall: few scattered moles, no gross abnormalities 11/15/2014 None Full Exam - General 1994 Neurologic deep tendon reflexes Overall: deep tendon reflexes intact 11/15/2014 None Full Exam - General 1994 Neurologic cranial nerves Overall: crainial nerves 2 - 12 grossly intact 11/15/2014 None Full Exam - General 1994 Psychiatric orientation/consciousness Overall: oriented to person, place and time 11/15/2014 None Full Exam - General 1994 Psychiatric mood and affect Overall: normal mood and affect 11/15/2014 None Full Exam - General 1994 Musculoskeletal upper extremity Inspection - carpals: swelling 11/15/2014 swelling and pain to touch along the lateral side of left hand Full Exam - General 1994 Musculoskeletal spine, ribs and pelvis Sacroiliac joints: tender left sacroiliac joint 11/15/2014 None Full Exam - General 1994 Musculoskeletal lower extremity Palpation - thigh: tenderness 11/15/2014 None Full Exam - General 1994 Constitutional general appearance Development: well developed 08/13/2014 None Full Exam - General 1994 Constitutional general appearance Development: appears stated age 0608/13/2014 None Full Exam - General 1994 Constitutional general appearance Hygiene/Attention to Grooming: good hygiene 08/13/2014 None Full Exam - General 1994 Eyes conjunctiva /eyelids Overall: conjunctiva clear 08/13/2014 None Full Exam - General 1994 Eyes conjunctiva /eyelids Overall: cornea clear 08/13/2014 None Full Exam - General 1994 Eyes conjunctiva /eyelids Overall: eyelids normal 08/13/2014 None Full Exam - General 1994 Eyes pupils and irises Overall: pupils equal, round, reactive to light and accomodation 08/13/2014 None Full Exam - General 1994 Ears/Nose/Throat otoscopic exam Overall: external auditory canals clear 08/13/2014 None Full Exam - General 1994 Ears/Nose/Throat otoscopic exam Overall: tympanic membranes clear 08/13/2014 None Full Exam - General 1994 Ears/Nose/Throat lips/teeth/gingiva Overall: benign lips 08/13/2014 None Full Exam - General 1994 Ears/Nose/Throat lips/teeth/gingiva Overall: normal dentition 08/13/2014 None Full Exam - General 1994 Ears/Nose/Throat oral cavity/pharynx/larynx Overall: oral mucosa clear 08/13/2014 None Full Exam - General 1994 Ears/Nose/Throat oral cavity/pharynx/larynx Overall: oropharyngeal mucosa clear 08/13/2014 None Full Exam - General 1994 Ears/Nose/Throat oral cavity/pharynx/larynx Overall: hypopharynx benign 08/13/2014 None Full Exam - General 1994 Ears/Nose/Throat oral cavity/pharynx/larynx Overall: no masses 08/13/2014 None Full Exam - General 1994 Respiratory auscultation Overall: breath sounds clear bilaterally 08/13/2014 None Full Exam - General 1994 Respiratory respiratory effort/rhythm Overall: no retractions 08/13/2014 None Full Exam - General 1994 Respiratory respiratory effort/rhythm Overall: normal rate 08/13/2014 None Full Exam - General 1994 Cardiovascular extremities Overall: no clubbing 08/13/2014 None Full Exam - General 1994 Cardiovascular auscultation of heart Overall: regular rate 08/13/2014 None Full Exam - General 1994 Cardiovascular auscultation of heart Overall: normal heart sounds 08/13/2014 None Full Exam - General 1994 Abdomen abdominal exam Overall: no tenderness 08/13/2014 None Full Exam - General 1994 Abdomen abdominal exam Overall: normal bowel sounds 08/13/2014 None Full Exam - General 1994 Lymphatic neck nodes Overall: anterior cervical chain benign 08/13/2014 None Full Exam - General 1994 Lymphatic neck nodes Overall: posterior cervical chain benign 08/13/2014 None Full Exam - General 1994 Musculoskeletal head and neck Overall: head atraumatic 08/13/2014 None Full Exam - General 1994 Musculoskeletal head and neck Overall: cervical spine benign 08/13/2014 None Full Exam - General 1994 Integument inspection of skin Overall: few scattered moles, no gross abnormalities 08/13/2014 None Full Exam - General 1994 Neurologic deep tendon reflexes Overall: deep tendon reflexes intact 08/13/2014 None Full Exam - General 1994 Neurologic cranial nerves Overall: crainial nerves 2 - 12 grossly intact 08/13/2014 None Full Exam - General 1994 Psychiatric orientation/consciousness Overall: oriented to person, place and time 08/13/2014 None Full Exam - General 1994 Psychiatric mood and affect Overall: normal mood and affect 08/13/2014 None Procedures Procedure Codes Date DRAIN/INJECT JOINT/BURSA CPT-4: 28025 03/26/2017 TRIAMCINOLONE ACET INJ NOS CPT-4: J3301 03/26/2017 URINALYSIS NONAUTO W/O SCOPE CPT-4: 33577 01/16/2017 THER/PROPH/DIAG INJ SC/IM CPT-4: 74016 01/16/2017 ROCEPHIN, PER 250 MG CPT-4: J0696 01/16/2017 DESTRUCT PREMALG LESION CPT-4: 23430 10/16/2016 TRIAMCINOLONE ACET INJ NOS CPT-4: J3301 09/27/2016 ROCEPHIN, PER 250 MG CPT-4: J0696 09/27/2016 PPPS, SUBSEQ VISIT CPT -4: G0439 07/10/2016 THER/PROPH/DIAG INJ SC/IM CPT-4: 29153 07/09/2016 TRIAMCINOLONE ACET INJ NOS CPT-4: J3301 07/09/2016 ROCEPHIN, PER 250 MG CPT-4: J0696 07/09/2016 ADMIN PNEUMOCOCCAL VACCINE SNOMED CT: 60832118 CPT-4: G0009 02/15/2015 PNEUMOCOCCAL VACC 13 LIMA IM Formatting Model/CDA Sections, Assigned to SNOMED CT: 07064661 CPT-4: 44725Cbuoipa 02/15/2015 ADMIN INFLUENZA VIRUS VAC CPT-4: G0008 12/10/2014 FLU VACC 4 LIMA 3 YRS PLUS IM Formatting Model/CDA Sections, Assigned to SNOMED CT: 22931177 CPT-4: 31414Vjvwljm 12/10/2014 Vital Signs Date Vital 03/26/2017 Blood Pressure 1: 150/78 Code : 8480-6 BMI: 23.2 Code : 36856-0 Heart Rate 1 : 73 bpm Height: 5'2" SpO2: 99% Weight: 127 lbs 02/19/2017 Blood Pressure 1: 126/64 Code : 8480-6 BMI: 22.9 Code : 06724-1 Heart Rate 1 : 74 bpm Height: 5'2" SpO2: 99% Weight: 125 lbs 01/16/2017 Blood Pressure 1: 136/68 Code : 8480-6 Heart Rate 1: 97 bpm Height: 5'2" Respiratory Rate: 16 bpm Temperature: 37.5 (C) / 99.5 (F) Weight: 01/08/2017 Blood Pressure 1: 144/60 Code : 8480-6 BMI: 23.0 Code : 37144-3 Heart Rate 1 : 71 bpm Height: 5'2" SpO2: 96% Weight: 126 lbs 11/21/2016 Blood Pressure 1: 150/62 Code : 8480-6 BMI: 23.2 Code : 50612-9 Heart Rate 1 : 73 bpm Height: 5'2" SpO2: 94% Weight: 127 lbs 10/16/2016 Blood Pressure 1: 142/82 Code : 8480-6 BMI: 22.9 Code : 27347-0 Heart Rate 1 : 80 bpm Height: 5'2" SpO2: 96% Weight: 125 lbs 10/08/2016 Blood Pressure 1: 150/72 Code : 8480-6 Heart Rate 1: 65 bpm Height: 5'2" SpO2: 98% 10/01/2016 Blood Pressure 1: 152/76 Code : 8480-6 Heart Rate 1: 69 bpm Height: 5'2" SpO2: 97% 09/27/2016 Blood Pressure 1: 122/64 Code : 8480-6 BMI: 23.3 Code : 13609-7 Heart Rate 1 : 80 bpm Height: 5'2" SpO2: 98% Weight: 127 lbs 8 oz 07/19/2016 Blood Pressure 1: 118/68 Code : 8480-6 BMI: 23.0 Code : 66417-0 Heart Rate 1 : 62 bpm Height: 5'2" SpO2: 97% Weight: 126 lbs 07/10/2016 Blood Pressure 1: 132/64 Code : 8480-6 BMI: 23.4 Code : 00493-4 Heart Rate 1 : 82 bpm Height: 5'2" SpO2: 98% Waist Measure (cm): 76 cm Weight: 128 lbs 07/09/2016 Blood Pressure 1: 132/64 Code : 8480-6 BMI: 23.4 Code : 52660-5 Heart Rate 1 : 82 bpm Height: 5'2" SpO2: 98% Temperature: 37.2 (C) / 98.9 (F) Weight: 128 lbs 06/06/2016 Blood Pressure 1: 144/66 Code : 8480-6 BMI: 23.4 Code : 53860-2 Heart Rate 1 : 77 bpm Height: 5'2" SpO2: 97% Weight: 128 lbs 04/03/2016 Blood Pressure 1: 164/70 Code : 8480-6 BMI: 24.5 Code : 96974-0 Heart Rate 1 : 80 bpm Height: 5'2" SpO2: 98% Weight: 134 lbs 12/26/2015 Blood Pressure 1: 130/72 Code : 8480-6 BMI: 24.1 Code : 89070-8 Heart Rate 1 : 63 bpm Height: 5'2" SpO2: 98% Weight: 132 lbs 09/19/2015 Blood Pressure 1: 140/68 Code : 8480-6 BMI: 24.2 Code : 30487-3 Heart Rate 1 : 96 bpm Height: 5'2" SpO2: 98% Weight: 132 lbs 8 oz 07/19/2015 Blood Pressure 1: 128/64 Code : 8480-6 BMI: 24.2 Code : 37291-2 Heart Rate 1 : 66 bpm Height: 5'2" SpO2: 98% Weight: 132 lbs 8 oz 03/22/2015 Blood Pressure 1: 128/60 Code : 8480-6 BMI: 24.0 Code : 02526-0 Heart Rate 1 : 57 bpm Height: 5'2" SpO2: 98% Weight: 131 lbs 02/15/2015 Blood Pressure 1: 132/56 Code : 8480-6 BMI: 23.8 Code : 61902-5 Heart Rate 1 : 70 bpm Height: 5'2" SpO2: 98% Weight: 130 lbs 11/15/2014 Blood Pressure 1: 120/78 Code : 8480-6 BMI: 24.1 Code : 58827-3 Heart Rate 1 : 79 bpm Height: 5'2" SpO2: 98% Weight: 132 lbs 08/13/2014 Blood Pressure 1: 140/60 Code : 8480-6 BMI: 24.0 Code : 08451-8 Heart Rate 1 : 74 bpm Height: 5'2" Weight: 131 lbs Functional Status No Functional Status data History of Present Illness Symptom Name Status Result Effective Date Notes low back pain Location on the right 03/26/2017 None low back pain Location right leg sciatica 03/26/2017 None low back pain Quality chronic 03/26/2017 None low back pain Quality worsening 03/26/2017 None low back pain Quality constant 03/26/2017 None low back pain Onset and Resolution ongoing 03/26/2017 None low back pain Onset of Symptom years ago 03/26/2017 ---pain became severe on Saturday low back pain Limitation on Activities allows weight bearing activity 03/26/2017 None low back pain Limitation on Activities moderately limits activities 03/26/2017 None low back pain Limitation on Activities is incapacitating 03/26/2017 None low back pain Frequency of Episodes daily 03/26/2017 None low back pain Alleviating Factors medications 03/26/2017 None low back pain Exacerbating Factors activity 03/26/2017 None low back pain Exacerbating Factors changing position 03/26/2017 None diabetes mellitus Quality insulin dependent 03/26/2017 None diabetes mellitus Test results Pt checking blood glucose readings, did not bring results to clinic 03/26/2017 None diabetes mellitus Alleviating Factors insulin 03/26/2017 None diabetes mellitus Exacerbating Factors diet 03/26/2017 None diabetes mellitus Glucose monitoring 2 hours postprandial 03/26/2017 None cough Quality acute None cough Quality intermittent 03/26/2017 None cough Onset and Resolution sudden in onset 03/26/2017 None cough Onset of Symptom 1-2 weeks ago 03/26/2017 None cough Quality dry None cough Pertinent Findings Denies fever 03/26/2017 None cough Pertinent Findings Denies sputum production 03/26/2017 None diabetes mellitus Pertinent Findings nausea 03/26/2017 None diabetes mellitus Quality insulin dependent 02/19/2017 None diabetes mellitus Alleviating Factors insulin 02/19/2017 None diabetes mellitus Exacerbating Factors diet 02/19/2017 None diabetes mellitus Pertinent Findings Denies nausea 02/19/2017 None diabetes mellitus Glucose monitoring fasting 02/19/2017 None diabetes mellitus Glucose monitoring before meals 02/19/2017 None diabetes mellitus Test results Pt checking blood glucose at home, see scanned readings 2016 None diabetes mellitus Pertinent Findings Denies dizziness 02/19/2017 None diabetes mellitus Pertinent Findings Denies dyspnea 02/19/2017 None urinary incontinence Onset and Resolution ongoing 02/19/2017 None urinary incontinence Onset of Symptom during adulthood 02/19/2017 None diabetes mellitus Quality insulin dependent 01/16/2017 FSBS 128 - pt reports that her blood glucose was 306 after lunch diabetes mellitus Alleviating Factors medication 01/16/2017 None diabetes mellitus Alleviating Factors insulin 01/16/2017 None diabetes mellitus Exacerbating Factors diet 01/16/2017 None diabetes mellitus Pertinent Findings Denies nausea 01/16/2017 None hypertension Quality primary hypertension 01/08/2017 None hypertension Onset and Resolution ongoing 01/08/2017 None hypertension Onset of Symptom during adulthood 01/08/2017 None hypertension Blood Pressure Values not checking blood pressure at home 01/08/2017 None hypertension Alleviating Factors medication 01/08/2017 None hypertension Exacerbating Factors stress 01/08/2017 None hypertension Pertinent Findings dizziness 01/08/2017 when her blood sugar is low hypertension Pertinent Findings Denies dyspnea 01/08/2017 None hypertension Pertinent Findings Denies edema 01/08/2017 None diabetes mellitus Quality insulin dependent 01/08/2017 None diabetes mellitus Alleviating Factors medication 01/08/2017 None diabetes mellitus Alleviating Factors insulin 01/08/2017 None diabetes mellitus Exacerbating Factors diet 01/08/2017 None diabetes mellitus Pertinent Findings Denies nausea 01/08/2017 None urinary incontinence Quality intermittent 01/08/2017 None urinary incontinence Onset and Resolution ongoing 01/08/2017 None urinary incontinence Onset of Symptom during adulthood 01/08/2017 None urinary incontinence Triggers sneezing 01/08/2017 None urinary incontinence Pertinent Findings urinary urgency 01/08/2017 in the mornings hypertension Onset and Resolution ongoing 11/21/2016 None hypertension Onset of Symptom during adulthood 11/21/2016 None hypertension Alleviating Factors medication 11/21/2016 None hypertension Exacerbating Factors stress 11/21/2016 None hypertension Pertinent Findings dizziness 11/21/2016 when her blood sugar is low hypertension Pertinent Findings Denies dyspnea 11/21/2016 None hypertension Pertinent Findings Denies edema 11/21/2016 None diabetes mellitus Quality insulin dependent 11/21/2016 None diabetes mellitus Alleviating Factors medication 11/21/2016 None diabetes mellitus Exacerbating Factors diet 11/21/2016 None diabetes mellitus Pertinent Findings Denies nausea 11/21/2016 None cough Location in the throat 11/21/2016 None hypertension Quality primary hypertension 11/21/2016 None diabetes mellitus Test results Pt checking blood glucose at home, see scanned readings 2016 None diabetes mellitus Glucose monitoring before meals 11/21/2016 None diabetes mellitus Glucose monitoring 2 hours postprandial 11/21/2016 None diabetes mellitus Glucose monitoring bedtime 11/21/2016 None diabetes mellitus Alleviating Factors insulin 11/21/2016 None hypertension Blood Pressure Values not checking blood pressure at home 11/21/2016 None cough Onset and Resolution resolved 11/21/2016 None urinary incontinence Onset and Resolution ongoing 11/21/2016 None urinary incontinence Quality intermittent 11/21/2016 None urinary incontinence Onset of Symptom during adulthood 11/21/2016 None urinary incontinence Triggers sneezing 11/21/2016 None urinary incontinence Pertinent Findings urinary urgency 11/21/2016 in the mornings hypertension Quality intermittent 10/16/2016 None hypertension Onset and Resolution ongoing 10/16/2016 None hypertension Onset of Symptom during adulthood 10/16/2016 None hypertension Blood Pressure Values patient checking blood pressure at home - did not bring in readings 10/16/2016 -Checks rarely hypertension Alleviating Factors medication 10/16/2016 None hypertension Exacerbating Factors stress 10/16/2016 None hypertension Pertinent Findings dizziness 10/16/2016 occasionally- intermittent hypertension Pertinent Findings Denies dyspnea 10/16/2016 None hypertension Pertinent Findings Denies edema 10/16/2016 None diabetes mellitus Quality insulin dependent 10/16/2016 None diabetes mellitus Alleviating Factors medication 10/16/2016 None diabetes mellitus Exacerbating Factors diet 10/16/2016 None diabetes mellitus Pertinent Findings Denies nausea 10/16/2016 None cough Location in the throat 10/16/2016 None cough Quality productive 10/16/2016 None cough Onset and Resolution ongoing 10/16/2016 None cough Onset of Symptom 1 months ago 10/16/2016 None cough Pertinent Findings Denies fever 10/16/2016 None cough Location in the throat 10/08/2016 None cough Quality acute None cough Quality constant 10/08/2016 None cough Onset and Resolution sudden in onset 10/08/2016 None cough Onset of Symptom 2 weeks ago 10/08/2016 None cough Limitation on Activities does not limit activities 10/08/2016 None cough Frequency of Episodes unchanged 10/08/2016 None cough Triggers no known associated factors 10/08/2016 None cough Pertinent Findings Denies chest discomfort 10/08/2016 None cough Pertinent Findings Denies family history of allergies 10/08/2016 None cough Pertinent Findings Denies family history of asthma 10/08/2016 None cough Pertinent Findings Denies family history of pulmonary disease 10/08/2016 None cough Pertinent Findings Denies fever 10/08/2016 None cough Pertinent Findings Denies heartburn 10/08/2016 None cough Pertinent Findings hoarseness 10/08/2016 None cough Pertinent Findings lethargy 10/08/2016 None cough Pertinent Findings Denies muscle aches 10/08/2016 None cough Pertinent Findings Denies nasal congestion 10/08/2016 None cough Pertinent Findings Denies post nasal drip 10/08/2016 None cough Pertinent Findings Denies sputum production 10/08/2016 None cough Pertinent Findings weakness 10/08/2016 None cough Onset and Resolution resolved 10/08/2016 None cough Location in the throat 10/01/2016 None cough Quality acute None cough Quality constant 10/01/2016 None cough Onset and Resolution sudden in onset 10/01/2016 None cough Onset of Symptom 2 weeks ago 10/01/2016 None cough Limitation on Activities does not limit activities 10/01/2016 None cough Frequency of Episodes unchanged 10/01/2016 None cough Triggers no known associated factors 10/01/2016 None cough Pertinent Findings chest discomfort 10/01/2016 None cough Pertinent Findings Denies fever 10/01/2016 None cough Pertinent Findings hoarseness 10/01/2016 None cough Pertinent Findings lethargy 10/01/2016 None cough Pertinent Findings muscle aches 10/01/2016 None cough Pertinent Findings Denies nasal congestion 10/01/2016 None cough Pertinent Findings Denies post nasal drip 10/01/2016 None cough Pertinent Findings Denies sputum production 10/01/2016 None cough Pertinent Findings Denies family history of allergies 10/01/2016 None cough Pertinent Findings Denies family history of asthma 10/01/2016 None cough Pertinent Findings Denies family history of pulmonary disease 10/01/2016 None cough Pertinent Findings Denies heartburn 10/01/2016 None cough Pertinent Findings weakness 10/01/2016 None cough Quality acute None cough Pertinent Findings Denies nasal congestion 09/27/2016 None cough Pertinent Findings Denies post nasal drip 09/27/2016 None cough Pertinent Findings Denies sputum production 09/27/2016 None cough Location in the throat 09/27/2016 None cough Quality constant 09/27/2016 None cough Onset and Resolution sudden in onset 09/27/2016 None cough Onset of Symptom 2 weeks ago 09/27/2016 None cough Pertinent Findings chest discomfort 09/27/2016 None cough Pertinent Findings Denies fever 09/27/2016 None cough Pertinent Findings muscle aches 09/27/2016 None cough Pertinent Findings lethargy 09/27/2016 None cough Pertinent Findings hoarseness 09/27/2016 None cough Limitation on Activities does not limit activities 09/27/2016 None cough Frequency of Episodes unchanged 09/27/2016 None cough Triggers no known associated factors 09/27/2016 None hypertension Quality primary hypertension 07/19/2016 None cough Quality intermittent 07/19/2016 None cough Quality acute None cough Pertinent Findings Denies sputum production 07/19/2016 None cough Pertinent Findings Denies nasal congestion 07/19/2016 None cough Pertinent Findings Denies post nasal drip 07/19/2016 None diabetes mellitus Quality insulin dependent 07/19/2016 None diabetes mellitus Glucose monitoring before meals 07/19/2016 None diabetes mellitus Glucose monitoring bedtime 07/19/2016 None diabetes mellitus Test results Pt checking blood glucose readings, did not bring results to clinic 07/19/2016 None diabetes mellitus Alleviating Factors insulin 07/19/2016 None diabetes mellitus Exacerbating Factors diet 07/19/2016 None hypertension Onset and Resolution ongoing 07/19/2016 None hypertension Onset of Symptom during adulthood 07/19/2016 None hypertension Alleviating Factors medication 07/19/2016 None hypertension Blood Pressure Values not checking blood pressure at home 07/19/2016 None hypertension Pertinent Findings Denies edema 07/19/2016 None hypertension Pertinent Findings Denies dyspnea 07/19/2016 None hypertension Pertinent Findings Denies dizziness 07/19/2016 None hypertension Quality stable 07/19/2016 None Annual Medicare Wellness Exam Alcohol Use does not drink any alcohol 07/10/2016 None Annual Medicare Wellness Exam Aspirin Use yes 07/10/2016 None Annual Medicare Wellness Exam Blood Glucose (self reported) borderline high (100-125) 07/10/2016 None Annual Medicare Wellness Exam Blood Pressure (self reported ) borderline (120/80 - 139/89) 07/10/2016 None Annual Medicare Wellness Exam Cholesterol (self reported) desireable (below 200) 07/10/2016 None Annual Medicare Wellness Exam Depression (last 6 months) some of the time 07/10/2016 None Annual Medicare Wellness Exam Depression or Hopelessness almost never 07/10/2016 None Annual Medicare Wellness Exam Describe Your Health fair 07/10/2016 None Annual Medicare Wellness Exam Exercise Habits exercises 3 days per week 07/10/2016 None Annual Medicare Wellness Exam Exercise Habits exercises 60 minutes per day 07/10/2016 None Annual Medicare Wellness Exam Handling Stress usually juve effectively 07/10/2016 None Annual Medicare Wellness Exam Hemaglobin A-1C (self reported ) desireable (6 or lower) 07/10/2016 None Annual Medicare Wellness Exam Hours of Sleep 7 07/10/2016 None Annual Medicare Wellness Exam Interaction with Friends yes 07/10/2016 None Annual Medicare Wellness Exam Interests & Pleasure most of the time 07/10/2016 None Annual Medicare Wellness Exam Life Satisfaction satisfied 07/10/2016 None Annual Medicare Wellness Exam Motor Vehicle Safety always fastens seat belt: y 07/10/2016 None Annual Medicare Wellness Exam Motor Vehicle Safety drives after drinking: n 07/10/2016 None Annual Medicare Wellness Exam Motor Vehicle Safety rides with someone who has been drinking: n 2016 None Annual Medicare Wellness Exam Nutrition servings of fried food / high fat foods per day: 1 2016 None Annual Medicare Wellness Exam Nutrition servings of high fiber / whole grain per day: 1 07/10/2016 None Annual Medicare Wellness Exam Nutrition servings of vegetables / fruit per day: 3 07/10/2016 None Annual Medicare Wellness Exam Smoking and Tobacco Use non smoker 07/10/2016 None Annual Medicare Wellness Exam Social & Emotional Support usually 07/10/2016 None Annual Medicare Wellness Exam Stress some of the time 07/10/2016 None Annual Medicare Wellness Exam Sun Exposure protects skin when outdoors: n 07/10/2016 None Hospital Follow Up _ Other: hypoglycemia , nausea, vomiting, UTI 07/09/2016 None Hospital Follow Up Quality acute 07/09/2016 None Hospital Follow Up Onset and Resolution resolved 07/09/2016 None Hospital Follow Up Onset of Symptom 3 weeks ago 07/09/2016 None cough Quality acute None cough Quality intermittent 07/09/2016 None cough Quality productive 07/09/2016 None cough Onset and Resolution sudden in onset 07/09/2016 None cough Onset of Symptom 1 weeks ago 07/09/2016 None cough Pertinent Findings Denies fever 07/09/2016 None cough Pertinent Findings hoarseness 07/09/2016 None cough Pertinent Findings lethargy 07/09/2016 None cough Pertinent Findings sputum production 07/09/2016 None earache Location left ear 07/09/2016 None earache Quality acute 07/09/2016 None earache Onset and Resolution sudden in onset 07/09/2016 None earache Onset of Symptom 3 days ago 07/09/2016 None low back pain Location on the left 07/09/2016 None low back pain Quality worsening 07/09/2016 None low back pain Exacerbating Factors activity 07/09/2016 None hypertension Onset and Resolution ongoing 06/06/2016 None hypertension Onset of Symptom during adulthood 06/06/2016 None hypertension Blood Pressure Values patient checking blood pressure at home - did not bring in readings 06/06/2016 -Checks rarely hypertension Alleviating Factors medication 06/06/2016 None hypertension Pertinent Findings dizziness 06/06/2016 occasionally- intermittent hypertension Pertinent Findings Denies dyspnea 06/06/2016 None hypertension Pertinent Findings Denies edema 06/06/2016 None diabetes mellitus Quality insulin dependent 06/06/2016 None diabetes mellitus Test results Pt checking blood glucose readings, did not bring results to clinic 06/06/2016 None diabetes mellitus Glucose monitoring before meals 06/06/2016 None diabetes mellitus Glucose monitoring bedtime 06/06/2016 None diabetes mellitus Alleviating Factors medication 06/06/2016 None diabetes mellitus Exacerbating Factors diet 06/06/2016 None diabetes mellitus Pertinent Findings Denies nausea 06/06/2016 None hypertension Quality intermittent 06/06/2016 None hypertension Exacerbating Factors stress 06/06/2016 None sinus congestion Location on both sides 04/03/2016 None sinus congestion Quality constant 04/03/2016 None sinus congestion Quality fullness 04/03/2016 None sinus congestion Quality pressure 04/03/2016 None sinus congestion Onset and Resolution sudden in onset 04/03/2016 None sinus congestion Pertinent Findings cough 04/03/2016 None sinus congestion Pertinent Findings Denies fever 04/03/2016 None sinus congestion Pertinent Findings hoarseness 04/03/2016 None diabetes mellitus Pertinent Findings Denies mental status change 04/03/2016 None diabetes mellitus Onset of Symptom onset as an adult 04/03/2016 None back pain Location lumbar-sacral spine 12/26/2015 None back pain Quality chronic 12/26/2015 None back pain Onset and Resolution ongoing 12/26/2015 None back pain Limitation on Activities moderately limits activities 12/26/2015 None back pain Frequency of Episodes daily 12/26/2015 None back pain Severity mild 12/26/2015 None back pain Severity moderate 12/26/2015 None back pain Pertinent Findings Denies sleep disturbance 12/26/2015 None hand pain Location on the right 12/26/2015 None hand pain Quality chronic 12/26/2015 None hand pain Quality constant 12/26/2015 None hand pain Onset and Resolution ongoing 12/26/2015 None hand pain Frequency of Episodes daily 12/26/2015 None hand pain Alleviating Factors NSAID's 12/26/2015 None hand pain Exacerbating Factors hand motion 12/26/2015 None hand pain Pertinent Findings pain with movement 12/26/2015 None hand pain Pertinent Findings stiffness 12/26/2015 None hand pain Pertinent Findings weakness 12/26/2015 None diabetes mellitus Onset of Symptom onset as an adult 12/26/2015 None diabetes mellitus Quality insulin dependent 12/26/2015 None diabetes mellitus Quality chronic 12/26/2015 None diabetes mellitus Alleviating Factors medication 12/26/2015 None diabetes mellitus Alleviating Factors insulin 12/26/2015 None diabetes mellitus Exacerbating Factors diet 12/26/2015 None diabetes mellitus Nutrition ADA diet 12/26/2015 None diabetes mellitus Pertinent Findings Denies dizziness 12/26/2015 None diabetes mellitus Pertinent Findings Denies dyspnea 12/26/2015 None diabetes mellitus Pertinent Findings Denies lethargy 12/26/2015 None diabetes mellitus Pertinent Findings Denies nausea 12/26/2015 None hypertension Onset and Resolution ongoing 12/26/2015 None hypertension Onset of Symptom during adulthood 12/26/2015 None hypertension Blood Pressure Values patient checking blood pressure at home - did not bring in readings 12/26/2015 -Checks occasionally hypertension Alleviating Factors medication 12/26/2015 None hypertension Exacerbating Factors stress 12/26/2015 None hypertension Pertinent Findings Denies edema 12/26/2015 None diabetes mellitus Test results Pt checking blood glucose readings, did not bring results to clinic 12/26/2015 None diabetes mellitus Glucose monitoring before meals 12/26/2015 None foot pain Location on the right 12/26/2015 None foot pain Quality chronic 12/26/2015 None foot pain Onset and Resolution ongoing 12/26/2015 None foot pain Significant Medical Conditions peripheral neuropathy 12/26/2015 None foot pain Significant Medical Conditions diabetes mellitus 12/26/2015 None back pain Location lumbar-sacral spine 09/19/2015 None back pain Quality chronic 09/19/2015 None back pain Onset and Resolution ongoing 09/19/2015 None back pain Limitation on Activities moderately limits activities 09/19/2015 None back pain Frequency of Episodes daily 09/19/2015 None back pain Severity mild 09/19/2015 None back pain Severity moderate 09/19/2015 None back pain Pertinent Findings Denies sleep disturbance 09/19/2015 None hand pain Onset and Resolution ongoing 09/19/2015 None hand pain Frequency of Episodes daily 09/19/2015 None hand pain Alleviating Factors NSAID's 09/19/2015 None hand pain Exacerbating Factors hand motion 09/19/2015 None hand pain Pertinent Findings pain with movement 09/19/2015 None hand pain Pertinent Findings stiffness 09/19/2015 None hand pain Pertinent Findings weakness 09/19/2015 None diabetes mellitus Onset of Symptom onset as an adult 09/19/2015 None diabetes mellitus Quality insulin dependent 09/19/2015 None diabetes mellitus Quality chronic 09/19/2015 None diabetes mellitus Alleviating Factors medication 09/19/2015 None diabetes mellitus Alleviating Factors insulin 09/19/2015 None diabetes mellitus Exacerbating Factors diet 09/19/2015 None diabetes mellitus Nutrition ADA diet 09/19/2015 None diabetes mellitus Pertinent Findings Denies dizziness 09/19/2015 None diabetes mellitus Pertinent Findings Denies dyspnea 09/19/2015 None diabetes mellitus Pertinent Findings Denies lethargy 09/19/2015 None diabetes mellitus Pertinent Findings Denies nausea 09/19/2015 None urinary urgency Onset and Resolution ongoing 09/19/2015 None urinary urgency Timing of Episodes in the morning 09/19/2015 (wears pads when she sleeps) hand pain Location on the right 09/19/2015 None hand pain Quality constant 09/19/2015 None hand pain Quality chronic 09/19/2015 None diabetes mellitus Test results Pt checking blood glucose readings, did not bring results to clinic 09/19/2015 None diabetes mellitus Glucose monitoring before meals 09/19/2015 None diabetes mellitus Glucose monitoring bedtime 09/19/2015 None hypertension Onset and Resolution ongoing 09/19/2015 None hypertension Onset of Symptom during adulthood 09/19/2015 None hypertension Blood Pressure Values patient checking blood pressure at home - did not bring in readings 09/19/2015 None hypertension Alleviating Factors medication 09/19/2015 None hypertension Pertinent Findings Denies edema 09/19/2015 None hypertension Exacerbating Factors stress 09/19/2015 None back pain Quality improving 09/19/2015 None back pain Location lumbar-sacral spine 07/19/2015 None back pain Onset and Resolution ongoing 07/19/2015 None back pain Limitation on Activities moderately limits activities 07/19/2015 None back pain Frequency of Episodes daily 07/19/2015 None back pain Severity mild 07/19/2015 None back pain Severity moderate 07/19/2015 None back pain Pertinent Findings Denies sleep disturbance 07/19/2015 None hand pain Onset and Resolution ongoing 07/19/2015 None hand pain Frequency of Episodes daily 07/19/2015 None hand pain Alleviating Factors NSAID's 07/19/2015 None hand pain Exacerbating Factors hand motion 07/19/2015 None hand pain Pertinent Findings pain with movement 07/19/2015 None hand pain Pertinent Findings stiffness 07/19/2015 None hand pain Pertinent Findings weakness 07/19/2015 None diabetes mellitus Onset of Symptom onset as an adult 07/19/2015 None diabetes mellitus Quality insulin dependent 07/19/2015 None diabetes mellitus Quality chronic 07/19/2015 None diabetes mellitus Alleviating Factors medication 07/19/2015 None diabetes mellitus Alleviating Factors insulin 07/19/2015 None diabetes mellitus Exacerbating Factors diet 07/19/2015 None diabetes mellitus Nutrition ADA diet 07/19/2015 None diabetes mellitus Pertinent Findings Denies dizziness 07/19/2015 None diabetes mellitus Pertinent Findings Denies dyspnea 07/19/2015 None diabetes mellitus Pertinent Findings Denies lethargy 07/19/2015 None diabetes mellitus Pertinent Findings Denies nausea 07/19/2015 None urinary urgency Timing of Episodes in the morning 07/19/2015 None diabetes mellitus Test results Pt checking blood glucose readings, did not bring results to clinic 07/19/2015 None diabetes mellitus Glucose monitoring before meals 07/19/2015 None diabetes mellitus Glucose monitoring fasting 07/19/2015 None urinary urgency Onset and Resolution ongoing 07/19/2015 None back pain Quality chronic 07/19/2015 None back pain Location lumbar-sacral spine 03/22/2015 None back pain Onset and Resolution ongoing 03/22/2015 None back pain Limitation on Activities moderately limits activities 03/22/2015 None back pain Frequency of Episodes daily 03/22/2015 None back pain Severity mild 03/22/2015 None back pain Severity moderate 03/22/2015 None back pain Pertinent Findings Denies sleep disturbance 03/22/2015 None hand pain Onset and Resolution ongoing 03/22/2015 None hand pain Frequency of Episodes daily 03/22/2015 None hand pain Alleviating Factors NSAID's 03/22/2015 None hand pain Alleviating Factors splint 03/22/2015 None hand pain Exacerbating Factors hand motion 03/22/2015 None hand pain Pertinent Findings pain with movement 03/22/2015 None hand pain Pertinent Findings stiffness 03/22/2015 None hand pain Pertinent Findings weakness 03/22/2015 None diabetes mellitus Onset of Symptom onset as an adult 03/22/2015 None diabetes mellitus Quality insulin dependent 03/22/2015 None diabetes mellitus Quality chronic 03/22/2015 None diabetes mellitus Alleviating Factors medication 03/22/2015 None diabetes mellitus Nutrition ADA diet 03/22/2015 None diabetes mellitus Test results Pt checking blood glucose readings, did not bring results to clinic 03/22/2015 None diabetes mellitus Glucose monitoring before meals 03/22/2015 None diabetes mellitus Alleviating Factors insulin 03/22/2015 None diabetes mellitus Exacerbating Factors diet 03/22/2015 None diabetes mellitus Pertinent Findings Denies dizziness 03/22/2015 None diabetes mellitus Pertinent Findings Denies dyspnea 03/22/2015 None diabetes mellitus Pertinent Findings Denies lethargy 03/22/2015 None diabetes mellitus Pertinent Findings Denies nausea 03/22/2015 None urinary urgency Timing of Episodes in the morning 03/22/2015 None back pain Location lumbar-sacral spine 02/15/2015 None back pain Limitation on Activities moderately limits activities 02/15/2015 None back pain Frequency of Episodes daily 02/15/2015 None back pain Severity mild 02/15/2015 None back pain Severity moderate 02/15/2015 None back pain Pertinent Findings Denies sleep disturbance 02/15/2015 None hand pain Frequency of Episodes daily 02/15/2015 None hand pain Alleviating Factors NSAID's 02/15/2015 None hand pain Alleviating Factors splint 02/15/2015 None hand pain Exacerbating Factors hand motion 02/15/2015 None hand pain Pertinent Findings pain with movement 02/15/2015 None hand pain Pertinent Findings stiffness 02/15/2015 None hand pain Pertinent Findings swelling 02/15/2015 None hand pain Pertinent Findings weakness 02/15/2015 None diabetes mellitus Onset of Symptom onset as an adult 02/15/2015 None diabetes mellitus Quality chronic 02/15/2015 None diabetes mellitus Alleviating Factors medication 02/15/2015 None diabetes mellitus Alleviating Factors diet 02/15/2015 None diabetes mellitus Nutrition ADA diet 02/15/2015 None back pain Onset and Resolution ongoing 02/15/2015 None hand pain Onset and Resolution ongoing 02/15/2015 None diabetes mellitus Quality insulin dependent 02/15/2015 None diabetes mellitus Test results Pt checking blood glucose readings, did not bring results to clinic 02/15/2015 - her blood glucose is running in in 150 in the morning and 150's in the afternoon and 180's in the evening - diabetes mellitus Glucose monitoring daily 02/15/2015 x4 back pain Onset of Symptom _ years ago 11/15/2014 None back pain Limitation on Activities moderately limits activities 11/15/2014 None back pain Frequency of Episodes daily 11/15/2014 None back pain Pertinent Findings Denies sleep disturbance 11/15/2014 None hand pain Onset of Symptom _ years ago 11/15/2014 None hand pain Frequency of Episodes daily 11/15/2014 None hand pain Alleviating Factors NSAID's 11/15/2014 None hand pain Alleviating Factors splint 11/15/2014 None hand pain Exacerbating Factors hand motion 11/15/2014 None hand pain Pertinent Findings pain with movement 11/15/2014 None hand pain Pertinent Findings stiffness 11/15/2014 None hand pain Pertinent Findings swelling 11/15/2014 None hand pain Pertinent Findings weakness 11/15/2014 None back pain Location lumbar-sacral spine 11/15/2014 None back pain Severity mild 11/15/2014 None back pain Severity moderate 11/15/2014 None back pain Mechanism of injury fall from height 11/15/2014 None diabetes mellitus Alleviating Factors diet 11/15/2014 None diabetes mellitus Alleviating Factors medication 11/15/2014 None diabetes mellitus Exercise minimal exercise 11/15/2014 None diabetes mellitus Glucose monitoring bedtime 11/15/2014 None diabetes mellitus Glucose monitoring before meals 11/15/2014 None diabetes mellitus Glucose monitoring fasting 11/15/2014 None diabetes mellitus Nutrition ADA diet 11/15/2014 None diabetes mellitus Onset of Symptom onset as an adult 11/15/2014 None diabetes mellitus Quality chronic 11/15/2014 None diabetes mellitus Test results HgbA1c level 6.6 11/15/2014 None back pain Onset of Symptom _ years ago 08/13/2014 None back pain Limitation on Activities moderately limits activities 08/13/2014 None back pain Frequency of Episodes daily 08/13/2014 None back pain Pertinent Findings Denies sleep disturbance 08/13/2014 None hand pain Onset of Symptom _ years ago 08/13/2014 None hand pain Frequency of Episodes daily 08/13/2014 None hand pain Exacerbating Factors hand motion 08/13/2014 None hand pain Alleviating Factors NSAID's 08/13/2014 None hand pain Alleviating Factors splint 08/13/2014 None hand pain Pertinent Findings pain with movement 08/13/2014 None hand pain Pertinent Findings stiffness 08/13/2014 None hand pain Pertinent Findings swelling 08/13/2014 None hand pain Pertinent Findings weakness 08/13/2014 None Advance Directives No Advance Directive data Encounters Encounter Performer Location Codes Date 80182 EST. PATIENT, LEVEL III Diagnosis: Sciatica, right side[ICD10: M54.31] Diagnosis: Low back pain[ICD10: M54.5] Fatmata Recinos MD, [facility] CPT-4 : 43396 03/26/2017 ([id number]) 42380 EST. PATIENT, LEVEL III Diagnosis: Type 1 diabetes mellitus without complications[ICD10: E10.9] Diagnosis: Essential (primary) hypertension[ICD10: I10] Dominique Recinos MD, [facility] CPT-4: 57189 02/19/2017 ([id number]) 27612 EST. PATIENT, LEVEL IV Diagnosis: Fever presenting with conditions classified elsewhere[ICD10: R50.81] Diagnosis: Weakness[ICD10: R53.1] Diagnosis: Frequency of micturition[ICD10: R35.0] Diagnosis: Type 1 diabetes mellitus without complications[ICD10: E10.9] Dominique Recinos MD, [facility] CPT-4: 47309 01/16/2017 ([id number]) 75662 EST. PATIENT, LEVEL IV Diagnosis: Type 1 diabetes mellitus without complications[ICD10: E10.9] Diagnosis: Essential (primary) hypertension[ICD10: I10] Dominique Recinos MD, [facility] CPT-4: 06511 01/08/2017 ([id number]) 78528 EST. PATIENT, LEVEL IV Diagnosis: Essential (primary) hypertension[ICD10: I10] Diagnosis: Type 1 diabetes mellitus without complications[ICD10: E10.9] Dominique Recinos MD [facility] CPT-4: 60962 11/21/2016 ([id number]) 69021 EST. 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 PATIENT, LEVEL III Diagnosis: Chronic obstructive pulmonary disease with (acute) exacerbation[ICD10 : J44.1] Diagnosis: Cough[ICD10: R05] Maile Recinos MD, [facility] CPT-4: 09927 10/08/2016 ([id number]) Miscellaneous no charge Diagnosis: Cough[ICD10: R05] Diagnosis: Chronic obstructive pulmonary disease with (acute) exacerbation[ICD10 : J44.1] Maile Recinos MD, [facility] CPT-4: 34622 ([id number]) 67803 EST. PATIENT, LEVEL III Diagnosis: Cough[ICD10: R05] Diagnosis: Acute bronchitis, unspecified[ICD10: J20.9] Maile Recinos MD, [facility] CPT-4: 19288 09/27/2016 ([id number]) 89380 EST. PATIENT, LEVEL III Diagnosis: Type 1 diabetes mellitus without complications[ICD10: E10.9] Dominique Recinos MD, [facility] CPT-4: 39974 07/19/2016 ([id number]) 54342 EST. PATIENT, LEVEL IV Diagnosis: Essential (primary) hypertension[ICD10: I10] Diagnosis: Type 1 diabetes mellitus without complications[ICD10: E10.9] Diagnosis: Other allergic rhinitis[ICD10: J30.89] Diagnosis: Acute laryngopharyngitis[ICD10: J06.0] Dominique Recnios MD [facility] CPT-4: 82713 07/09/2016 ([id number]) 18779 EST. PATIENT, LEVEL IV Diagnosis: Essential (primary) hypertension[ICD10: I10] Diagnosis: Type 1 diabetes mellitus without complications[ICD10: E10.9] Diagnosis: Mixed hyperlipidemia[ICD10: E78.2] Dominique Recinos MD [facility] CPT-4: 07926 06/06/2016 46505 EST. PATIENT, LEVEL III Diagnosis: Other allergic rhinitis[ICD10: J30.89] Diagnosis: Acute laryngopharyngitis[ICD10: J06.0] Fatmata Recinos MD [facility] CPT-4: 42831 04/03/2016 ([id number]) 91177 EST. PATIENT, LEVEL IV Diagnosis: Type 1 diabetes mellitus without complications[ICD10: E10.9] Diagnosis: Essential (primary) hypertension[ICD10: I10] Diagnosis: Pain in right hand[ICD10: M79.641] Dominique Recinos MD [facility] CPT-4: 22302 12/26/2015 ([id number]) 79710 EST. PATIENT, LEVEL IV Diagnosis: Type 1 diabetes mellitus without complications[ICD10: E10.9] Diagnosis: Essential (primary) hypertension[ICD10: I10] Dominique Recinos MD [facility] CPT-4: 53920 09/19/2015 ([id number]) 09616 EST. PATIENT, LEVEL IV Diagnosis: Essential (primary) hypertension[ICD10: I10] Diagnosis: Mixed hyperlipidemia[ICD10: E78.2] Diagnosis: Type 1 diabetes mellitus without complications[ICD10: E10.9] Dominique Recinos MD [facility] CPT-4: 14948 07/19/2015 ([id number]) 17298 EST. PATIENT, LEVEL IV Diagnosis: Other specified dorsopathies, lumbar region[ICD10: M53.86] Diagnosis: Urge incontinence[ICD10: N39.41] Diagnosis: Type 1 diabetes mellitus without complications[ICD10: E10.9] Dominique Recinos MD [facility] CPT-4: 98983 03/22/2015 [id number] 36147 EST. PATIENT, LEVEL IV Diagnosis: Essential (primary) hypertension[ICD10: I10] Diagnosis: Other specified dorsopathies, lumbar region[ICD10: M53.86] Diagnosis: Other chronic pain[ICD10: G89.29] [facility] CPT-4: 46856 02/15/2015 ([id number] 72737 EST. PATIENT, LEVEL IV Diagnosis: ESSENTIAL HYPERTENSION[ICD9: 401.9] Diagnosis: DIABETES TYPE II[ICD9: 250.00] Diagnosis: FALL FROM LADDER[ICD9: E881.0] Diagnosis: Right hip pain[ICD9: 719.45] Diagnosis: Left hand pain[ICD9: 729.5] Diagnosis: Sacroiliac joint pain[ICD9: 724.6] [facility] CPT-4: 64591 11/15/2014 ([id number]) OFFICE VISIT, NEW - LEVEL 4 Diagnosis: DIABETES TYPE II[ICD9: 250.00] Diagnosis: ESSENTIAL HYPERTENSION[ICD9: 401.9] Diagnosis: HYPERLIPIDEMIA[ICD9: 272.4] [facility] CPT- 4: 11459 08/13/2014 Plan of Care Planned Activity Notes Codes Status Date Visit Plan: Low back pain- the patient was instructed in appropriate posture, need for weight loss to alleviate abdominal obesity that is worsening the patient's back pain.. The pt is to use prn antiinflammatories to manage acute pain. The patient is to call the office if the pain is worsening or does not improve. Sciatica- exercises discussed with the patient, pt to continue with antiinflammatories. Pt is to call if the symptoms do not improve or if they worsen. Joint Injection - Pt was given post - injection instructions. The pt has been advised to use anti-inflammatories post injection today, ice to the injected site, call if redness, warmth, or increased pain occurs at the site of injection. 03/26/2017 Patient Education: Patient Medication Summary Completed 03/26/2017 Visit Plan: Diabetes Mellitus - Uncontrolled - per recent FSBS reports. I have recommended for the patient to have follow up labs prior to the next office visit. The patient has been instructed to continue with current medications as previously directed, continue with regular FSBS monitoring to assure continued control of diabetes. Pt to call for any acute concerns, complaints, or if the blood glucose readings are starting to become less controlled. I have recommended for the patient to follow more strictly to the diabetic diet as discussed in clinic to allow for greater blood glucose control. Pt advised to change her medication as follows: if your blood glucose is between 70 and 150 - do NOT take any insulin- check your sugar two hours after you eat the meal and then treat the blood glucose at that time if your blood glucose is 150 - 200 take 5 units of insulin - then for every 50 points above 200 take another 2 units of insulin. Hypertension - well controlled - continue with current medications, continue with no added salt diet. Pt has been encouraged to exercise daily. The pt has been advised to call the office if there are any acute concerns about change in blood pressure readings at home. 02/19/2017 Appointment: [id number] (15 min) Moderate 02/19/2017 Patient Education: Patient Medication Summary Completed 02/19/2017 Patient Education: Hypertension Completed 02/19/2017 Appointment: [phone] [facility] (15 min) Moderate 02/12/2017 Visit Plan: Diabetes mellitus - blood glucose level too well controlled - decrease dose of lantus from 10 units to 7 units - decrease novolog as directed. Dysuria - checked ua - will send for culture - continue with monitor - rocephin shot given today. Fever - monitor temperature at home, call if consistently above 100F. 01/16/2017 Appointment: Domin[facility] Recinos [phone] [id number] (15 min) Moderate 01/16/2017 Patient Education: Patient Medication Summary Completed 01/16/2017 Visit Plan: Diabetes Mellitus - controlled - per recent FSBS reports. I have recommended for the patient to have follow up labs prior to the next office visit. The patient has been instructed to continue with current medications as previously directed, continue with regular FSBS monitoring to assure continued control of diabetes. Pt to call for any acute concerns, complaints, or if the blood glucose readings are starting to become less controlled. Hypertension - well controlled - continue with current medications, continue with no added salt diet. Pt has been encouraged to exercise daily. The pt has been advised to call the office if there are any acute concerns about change in blood pressure readings at home. 01/08/2017 Appointment: [facility]inos [phone] [facility] [place] (15 min) Moderate 01/08/2017 Patient Education: Patient Medication Summary Completed 01/08/2017 Patient Education: Hypertension Completed 01/08/2017 Appointment: Dominique Recinos WPtel: [phone] [facility] [place] (15 min) Moderate 12/31/2016 Appointment: [phone] [place] (15 min) Moderate 12/18/2016 Visit Plan: Hypertension - uncontrolled - the patient's medications have been modified as documented in the visit note. The patient has been counseled to cut back on salt in diet for a no added salt diet, low fat diet, start an exercise program with low weight bearing exercises and higher aerobic activity for heart health. The patient is to check blood pressure readings as an outpatient and either fax, call, or email the readings to the office next week for practitioner to review. The pt is to call for acute concerns. Diabetes Mellitus - controlled - per recent FSBS reports. I have recommended for the patient to have follow up labs prior to the next office visit. The patient has been instructed to continue with current medications as previously directed, continue with regular FSBS monitoring to assure continued control of diabetes. Pt to call for any acute concerns, complaints, or if the blood glucose readings are starting to become less controlled. 11/21/2016 Appointment: Domin[facility] Recinos [phone] [facility] [place] (15 min) Moderate 11/21/2016 Patient Education: Patient Medication Summary Completed 11/21/2016 Patient Education: Hypertension Completed 11/21/2016 Visit Plan: DM - uncontrolled - increase lantus to 15 units - We will refer Nathalia for diabetic education at the hospital. Increase the protein in your diet. Watch out for veggies that are higher in sugar like peas, carrots, sweet potatoes, corn are all high in sugar. You need to eat salad, spinach, cerlery, broccoli, cauliflower, tomatoes, green beans. Watch out for side dishes that are high in carbs like mac n cheese, mashed potatoes, creamy coleslaw, etc. -- referral to promotions specialist. Hyperlipidemia - pt has been counseled about appropriate diet, exercise, and need for low fat food choices. I have discussed the need for the patient to take medications as prescribed. If the patient has negative side effects from the medication, they are to CALL the office and not abruptly discontinue the medication without discussion with a practitioner in the office. We will check labs in 3-6 months for follow up on the patient's chronic medical problem and to assure normal liver response to medications. Thyroid enlargement - needs scheduled for thyroid ultrasound - results to . Hyperlipidemia - decrease the zocor to 20mg daily ( take 1/2 of a pill daily) - START ON CO-ENZYME Q10 - this may help with muscle weakness that can be seen with STATIN medications like zocor. Actinic keratosis - cryotherapy of forehead - use neosporin on lesion until healed 10/16/2016 Visit Plan: Hyperlipidemia - pt has been counseled about appropriate diet, exercise, and need for low fat food choices. I have discussed the need for the patient to take medications as prescribed. If the patient has negative side effects from the medication, they are to CALL the office and not abruptly discontinue the medication without discussion with a practitioner in the office. We will check labs in 3-6 months for follow up on the patient's chronic medical problem and to assure normal liver response to medications. Thyroid enlargement - needs scheduled for thyroid ultrasound - results to . Hyperlipidemia - decrease the zocor to 20mg daily (take 1/2 of a pill daily) - START ON CO-ENZYME Q10 - this may help with muscle weakness that can be seen with STATIN medications like zocor. DM - uncontrolled - increase lantus to 15 units - We will refer Nathalia for diabetic education at the hospital. Increase the protein in your diet. Watch out for veggies that are higher in sugar like peas, carrots, sweet potatoes, corn are all high in sugar. You need to eat salad, spinach, cerlery, broccoli, cauliflower, tomatoes, green beans. Watch out for side dishes that are high in carbs like mac n cheese, mashed potatoes, creamy coleslaw, etc. 10/16/2016 Appointment: Dominique Recinos WPtel: [phone] [facility] (15 min) Moderate 10/16/2016 Patient Education: Patient Medication Summary Completed 10/16/2016 Patient Education: Hypertension Completed 10/16/2016 Patient Education: Patient Medication Summary Completed 10/09/2016 Care Plan: Free T4 Pending 10/09/2016 Visit Plan: COPD [id number] resolved-call if symptoms return-monitor blood sugars closely for the next few days and discussed diet. 10/08/2016 Appointment: Maile Randolph WPtel: [phone] [phone] (15 min) Moderate 10/08/2016 Patient Education: Patient Medication Summary Completed 10/08/2016 Visit Plan: COPD EXACERBATION - COPD is a chronic problem for this patient, however, the pt is experiencing an acute exacerbation of the COPD. Pt is to receive appropriate treatment as an out patient, but the pt is aware that if symptoms worsen or do not improve, to call [facility] for instructions, or go to the EMERGENCY ROOM if the symptoms are beyond acute control with rescue medications. We have reviewed chronic treatment strategy, symptom control , and plans for acute exacerbations. No changes today to the current treatment plan as the patient is stable, monitor for acute changes. 10/01/2016 Appointment: Maile Randolph WPtel: [phone] [phone] (30 min) Complex 10/01/2016 Patient Education: Patient Medication Summary Completed 10/01/2016 Visit Plan: Bronchitis - acute case of bronchitis identified. Pt has been given antibiotics, breathing treatments as appropriate, and pt has been instructed to call if symptoms are not improved, or if symptoms acutely worsen. 09/27/2016 Appointment: Maile Randolph WPtel: [phone] [phone] (30 min) Complex 09/27/2016 Patient Education: Patient Medication Summary Completed 09/27/2016 Visit Plan: Diabetes Mellitus - controlled - per recent FSBS reports. I have recommended for the patient to have follow up labs prior to the next office visit. The patient has been instructed to continue with current medications as previously directed, continue with regular FSBS monitoring to assure continued control of diabetes. Pt to call for any acute concerns, complaints, or if the blood glucose readings are starting to become less controlled. 07/19/2016 Appointment: Dominique Recinos WPtel: [phone] [facility] (15 min) Moderate 07/19/2016 Patient Education: Patient Medication Summary Completed 07/19/2016 Visit Plan: Medicare Exam - today we discussed the patients past history, immunizations, preventative exams/evaluations - colonoscopy, fecal occult blood testing, routine labs for renal function, glucose, cholesterol, osteoporosis evaluations, cardiovascular testing and cancer screenings. We have also discussed mental health and the signs/symptoms of depression. The patient was advised of home safety evaluations and the need to make sure that as the aging process continues, we need to be aware of different ways to make the home a safer place to reside. The patient has also been counseled that exercise is necessary - and of utmost importance as we age to help decrease fall risk and to maintain independence in the home. Today we discussed the need for the patient to create paperwork for Advanced directives as well as for the patient to provide this office with a copy of her DOPA paperwork for health care surrogate. 07/10/2016 Appointment: Fatmata Spann WPtel: [phone] [phone] [facility] - Annual Wellness Visit 07/10/2016 Patient Education: Patient Medication Summary Completed 07/10/2016 Visit Plan: Hypertension - well controlled - continue with current medications, continue with no added salt diet. Pt has been encouraged to exercise daily. The pt has been advised to call the office if there are any acute concerns about change in blood pressure readings at home. Diabetes Mellitus - controlled - per recent FSBS reports. I have recommended for the patient to have follow up labs prior to the next office visit. The patient has been instructed to continue with current medications as previously directed, continue with regular FSBS monitoring to assure continued control of diabetes. Pt to call for any acute concerns, complaints, or if the blood glucose readings are starting to become less controlled. Pharyngitis - shots given today - call if not improving 07/09/2016 Appointment[facility]in[id number] [place] (15 min) Moderate 07/09/2016 Patient Education: Patient Medication Summary Completed 07/09/2016 Patient Education: Hypertension Completed 07/09/2016 Appointment: Dominique Recinos [id number] [place] (15 min) Moderate 06/26/2016 Visit Plan: Hypertension - well controlled - continue with current medications, continue with no added salt diet. Pt has been encouraged to exercise daily. The pt has been advised to call the office if there are any acute concerns about change in blood pressure readings at home. Diabetes Mellitus - controlled - per recent FSBS reports. I have recommended for the patient to have follow up labs prior to the next office visit. The patient has been instructed to continue with current medications as previously directed, continue with regular FSBS monitoring to assure continued control of diabetes. Pt to call for any acute concerns, complaints, or if the blood glucose readings are starting to become less controlled. Hyperlipidemia - pt has been counseled about appropriate diet, exercise, and need for low fat food choices. I have discussed the need for the patient to take medications as prescribed. If the patient has negative side effects from the medication, they are to CALL the office and not abruptly discontinue the medication without discussion with a practitioner in the office. We will check labs in 3-6 months for follow up on the patient's chronic medical problem and to assure normal liver response to medications. 06/06/2016 Appointment: Domin[facility] Rec[id number] [place] (15 min) Moderate 06/06/2016 Patient Education: Patient Medication Summary Completed 06/06/2016 Appointment: Dominique Recinos [facility]: [phone] [id number] [place] (15 min) Moderate 04/30/2016 Visit Plan: URI - Pt advised to increase fluids, vitamin C. Discussed natural and expected course of this diagnosis and need to alert me if symptoms do not follow expected course, or if any worse. RX sent to patient' s pharmacy. Allergies - chronic - recommended pt to use allergy medication as prescribed. Pt has been counseled as to the appropriate use of the medication. Pt to call if allergy symptoms are not controlled with the medication. If using nasal spray, instructions as follows: Nasal spray- use twice daily, one spray per nostril twice daily, after 30 minutes, rinse out nose with saline spray.. Use opposite hand per nostril to spray in the nasal steroid allergy spray. 04/03/2016 App[facility]ment: Fat[facility]ata Spann [id number] ([facility]) Complex 04/03/2016 Patient Education: Patient Medication Summary Completed 04/03/2016 Patient Education: Patient Medication Summary Completed 02/01/2016 Visit Plan: Hypertension - well controlled - continue with current medications, continue with no added salt diet. Pt has been encouraged to exercise daily. The pt has been advised to call the office if there are any acute concerns about change in blood pressure readings at home. Diabetes Mellitus - controlled - per recent FSBS reports. I have recommended for the patient to have follow up labs prior to the next office visit. The patient has been instructed to continue with current medications as previously directed, continue with regular FSBS monitoring to assure continued control of diabetes. Pt to call for any acute concerns, complaints, or if the blood glucose readings are starting to become less controlled. Right hand pain - monitor symptoms of pain - use Biofreeze or Aspercreme call if not improving. 12/26/2015 Patient Education: Patient Medication Summary Completed 12/26/2015 Patient Education: Hypertension Completed 12/26/2015 Appointment: Dominique Recinos [phone] [id number] (15 min) Moderate 12/19/2015 Visit Plan: Diabetes Mellitus - controlled - per recent FSBS reports. I have recommended for the patient to have follow up labs prior to the next office visit. The patient has been instructed to continue with current medications as previously directed, continue with regular FSBS monitoring to assure continued control of diabetes. Pt to call for any acute concerns, complaints, or if the blood glucose readings are starting to become less controlled. Hypertension - well controlled - continue with current medications, continue with no added salt diet. Pt has been encouraged to exercise daily. The pt has been advised to call the office if there are any acute concerns about change in blood pressure readings at home. 09/19/2015 Appointment: Dominique Recinos [id number] (15 min) Moderate 09/19/2015 Patient Education: Patient Medication Summary Completed 09/19/2015 Visit Plan: Hypertension - well controlled - continue with current medications, continue with no added salt diet. Pt has been encouraged to exercise daily. The pt has been advised to call the office if there are any acute concerns about change in blood pressure readings at home. Diabetes Mellitus - controlled - per recent FSBS reports. I have recommended for the patient to have follow up labs prior to the next office visit. The patient has been instructed to continue with current medications as previously directed, continue with regular FSBS monitoring to assure continued control of diabetes. Pt to call for any acute concerns, complaints, or if the blood glucose readings are starting to become less controlled. Hyperlipidemia - pt has been counseled about appropriate diet, exercise, and need for low fat food choices. I have discussed the need for the patient to take medications as prescribed. If the patient has negative side effects from the medication, they are to CALL the office and not abruptly discontinue the medication without discussion with a practitioner in the office. We will check labs in 3-6 months for follow up on the patient's chronic medical problem and to assure normal liver response to medications. 07/19/2015 Appointment: Dominique Recinos [phone] [id number] (15 min) Moderate 07/19/2015 Patient Education: Patient Medication Summary Completed 07/19/2015 Referral: External, Ordering Provider Referral Completed 03/30/2015 Visit Plan: Diabetes Mellitus - controlled - per recent FSBS reports. I have recommended for the patient to have follow up labs prior to the next office visit. The patient has been instructed to continue with current medications as previously directed, continue with regular FSBS monitoring to assure continued control of diabetes. Pt to call for any acute concerns, complaints, or if the blood glucose readings are starting to become less controlled. Hyperlipidemia - with muscle aches - recommended pt to start on co-enzyme q10. Back pain - referral to [facility] [place] [facility] for further eval and treat. 03/22/2015 Appointment: Dominique Recinos [facility]: [phone] [id number] [place] (15 min) Moderate 03/22/2015 Patient Education: Patient Medication Summary Completed 03/22/2015 Care Plan: Referral Order SNOMED-CT : [id number] Ordered 03/22/2015 Visit Plan: Hypertension - well controlled - continue with current medications, continue with no added salt diet. Pt has been encouraged to exercise daily. The pt has been advised to call the office if there are any acute concerns about change in blood pressure readings at home. get TIGER BALM - over the counter - to RUB ON THE RIGHT LOWER BACK - do this at least three times daily get a BODY PILLOW and use this between your legs to keep your back from hurting when sitting in a chair - get a BOLSTER pillow and put this behind your back when sitting in a chair or in the car for a long car ride. 02/15/2015 Patient Education: Patient Medication Summary Completed 02/15/2015 Patient Education: Hypertension Completed 02/15/2015 Appointment: Nurse Visit 12/10/2014 Patient Education: Patient Medication Summary Completed 12/10/2014 Visit Plan: Diabetes Mellitus - controlled - per recent FSBS reports. I have recommended for the patient to have follow up labs prior to the next office visit. The patient has been instructed to continue with current medications as previously directed, continue with regular FSBS monitoring to assure continued control of diabetes. Pt to call for any acute concerns, complaints, or if the blood glucose readings are starting to become less controlled. Pt fell at home from a ladder - from a height of 6 foot on 10/29 she continues to have pain in her back, right hip and left hand - I have ordered a SI joint, right hip, left hand xrays to be done today. Hypertension - well controlled - continue with current medications, continue with no added salt diet. Pt has been encouraged to exercise daily. The pt has been advised to call the office if there are any acute concerns about change in blood pressure readings at home. 11/15/2014 Patient Education: Patient Medication Summary Completed 11/15/2014 Patient Education: Hypertension Completed 11/15/2014 Visit Plan: Diabetes Mellitus - controlled - per recent FSBS reports. I have recommended for the patient to have follow up labs prior to the next office visit. The patient has been instructed to continue with current medications as previously directed, continue with regular FSBS monitoring to assure continued control of diabetes. Pt to call for any acute concerns, complaints, or if the blood glucose readings are starting to become less controlled. Hypertension - well controlled - continue with current medications, continue with no added salt diet. Pt has been encouraged to exercise daily. The pt has been advised to call the office if there are any acute concerns about change in blood pressure readings at home. Hyperlipidemia - pt has been counseled about appropriate diet, exercise, and need for low fat food choices. I have discussed the need for the patient to take medications as prescribed. If the patient has negative side effects from the medication, they are to CALL the office and not abruptly discontinue the medication without discussion with a practitioner in the office. We will check labs in 3-6 months for follow up on the patient's chronic medical problem and to assure normal liver response to medications. 08/13/2014 Appointment: Dominique Recinos [facility]Ptel[id number] [place] ([place] New Patient 08/13/2014 Patient Education: Patient Medication Summary Completed 08/13/2014 Patient Education: Hypertension Completed 08/13/2014 Referral: External, Ordering Provider Referral Appointment Requested Instructions Comment usha and adrian . Bronchitis - acute case of bronchitis identified. Pt has been given antibiotics, breathing treatments as appropriate, and pt has been instructed to call if symptoms are not improved, or if symptoms acutely worsen. if your blood glucose is between 70 and 150 - do NOT take any insulin- check your sugar two hours after you eat the meal and then treat the blood glucose at that time if your blood glucose is 150 - 200 take 5 units of insulin - then for every 50 points above 200 take another 2 units of insulin. . Diabetes Mellitus - Uncontrolled - per recent FSBS reports. I have recommended for the patient to have follow up labs prior to the next office visit. The patient has been instructed to continue with current medications as previously directed, continue with regular FSBS monitoring to assure continued control of diabetes. Pt to call for any acute concerns, complaints, or if the blood glucose readings are starting to become less controlled. I have recommended for the patient to follow more strictly to the diabetic diet as discussed in clinic to allow for greater blood glucose control. Pt advised to change her medication as follows: if your blood glucose is between 70 and 150 - do NOT take any insulin- check your sugar two hours after you eat the meal and then treat the blood glucose at that time if your blood glucose is 150 - 200 take 5 units of insulin - then for every 50 points above 200 take another 2 units of insulin. Hypertension - well controlled - continue with current medications, continue with no added salt diet. Pt has been encouraged to exercise daily. The pt has been advised to call the office if there are any acute concerns about change in blood pressure readings at home. . URI - Pt advised to increase fluids, vitamin C. Discussed natural and expected course of this diagnosis and need to alert me if symptoms do not follow expected course, or if any worse. RX sent to patient's pharmacy. Allergies - chronic - recommended pt to use allergy medication as prescribed. Pt has been counseled as to the appropriate use of the medication. Pt to call if allergy symptoms are not controlled with the medication. If using nasal spray, instructions as follows: Nasal spray- use twice daily, one spray per nostril twice daily, after 30 minutes, rinse out nose with saline spray.. Use opposite hand per nostril to spray in the nasal steroid allergy spray. . Low back pain- the patient was instructed in appropriate posture, need for weight loss to alleviate abdominal obesity that is worsening the patient's back pain.. The pt is to use prn antiinflammatories to manage acute pain. The patient is to call the office if the pain is worsening or does not improve. Sciatica- exercises discussed with the patient, pt to continue with antiinflammatories. Pt is to call if the symptoms do not improve or if they worsen. Joint Injection - Pt was given post - injection instructions. The pt has been advised to use anti-inflammatories post injection today, ice to the injected site, call if redness, warmth, or increased pain occurs at the site of injection. . Hypertension - well controlled - continue with current medications, continue with no added salt diet. Pt has been encouraged to exercise daily. The pt has been advised to call the office if there are any acute concerns about change in blood pressure readings at home. Diabetes Mellitus - controlled - per recent FSBS reports. I have recommended for the patient to have follow up labs prior to the next office visit. The patient has been instructed to continue with current medications as previously directed, continue with regular FSBS monitoring to assure continued control of diabetes. Pt to call for any acute concerns, complaints, or if the blood glucose readings are starting to become less controlled. Right hand pain - monitor symptoms of pain - use Biofreeze or Aspercreme call if not improving. . Diabetes Mellitus - controlled - per recent FSBS reports. I have recommended for the patient to have follow up labs prior to the next office visit. The patient has been instructed to continue with current medications as previously directed, continue with regular FSBS monitoring to assure continued control of diabetes. Pt to call for any acute concerns, complaints, or if the blood glucose readings are starting to become less controlled. Pt fell at home from a ladder - from a height of 6 foot on 10/29/14 she continues to have pain in her back, right hip and left hand - I have ordered a SI joint, right hip, left hand xrays to be done today. Hypertension - well controlled - continue with current medications, continue with no added salt diet. Pt has been encouraged to exercise daily. The pt has been advised to call the office if there are any acute concerns about change in blood pressure readings at home. . Diabetes Mellitus - controlled - per recent FSBS reports. I have recommended for the patient to have follow up labs prior to the next office visit. The patient has been instructed to continue with current medications as previously directed, continue with regular FSBS monitoring to assure continued control of diabetes. Pt to call for any acute concerns, complaints, or if the blood glucose readings are starting to become less controlled. Hypertension - well controlled - continue with current medications, continue with no added salt diet. Pt has been encouraged to exercise daily. The pt has been advised to call the office if there are any acute concerns about change in blood pressure readings at home. get TIGER BALM - over the counter - to RUB ON THE RIGHT LOWER BACK - do this at least three times daily get a BODY PILLOW and use this between your legs to keep your back from hurting when sitting in a chair - get a BOLSTER pillow and put this behind your back when sitting in a chair or in the car for a long car ride. . Hypertension - well controlled - continue with current medications, continue with no added salt diet. Pt has been encouraged to exercise daily. The pt has been advised to call the office if there are any acute concerns about change in blood pressure readings at home. get TIGER BALM - over the counter - to RUB ON THE RIGHT LOWER BACK - do this at least three times daily get a BODY PILLOW and use this between your legs to keep your back from hurting when sitting in a chair - get a BOLSTER pillow and put this behind your back when sitting in a chair or in the car for a long car ride. . Diabetes Mellitus - controlled - per recent FSBS reports. I have recommended for the patient to have follow up labs prior to the next office visit. The patient has been instructed to continue with current medications as previously directed, continue with regular FSBS monitoring to assure continued control of diabetes. Pt to call for any acute concerns, complaints, or if the blood glucose readings are starting to become less controlled. Hypertension - well controlled - continue with current medications, continue with no added salt diet. Pt has been encouraged to exercise daily. The pt has been advised to call the office if there are any acute concerns about change in blood pressure readings at home. Hyperlipidemia - pt has been counseled about appropriate diet, exercise, and need for low fat food choices. I have discussed the need for the patient to take medications as prescribed. If the patient has negative side effects from the medication, they are to CALL the office and not abruptly discontinue the medication without discussion with a practitioner in the office. We will check labs in 3-6 months for follow up on the patient's chronic medical problem and to assure normal liver response to medications. decrease the zocor to 20mg daily (take 1/2 of a pill daily ) - START ON CO-ENZYME Q10 - this may help with muscle weakness that can be seen with STATIN medications like zocor. We will refer Nathalia for diabetic education at the hospital. Increase the protein in your diet. Watch out for veggies that are higher in sugar like peas, carrots, sweet potatoes, corn are all high in sugar. You need to eat salad, spinach, cerlery, broccoli, cauliflower, tomatoes, green beans. Watch out for side dishes that are high in carbs like mac n cheese, mashed potatoes, creamy coleslaw, etc. . DM - uncontrolled - increase lantus to 15 units - We will refer Nathalia for diabetic education at the hospital. Increase the protein in your diet. Watch out for veggies that are higher in sugar like peas, carrots, sweet potatoes, corn are all high in sugar. You need to eat salad, spinach, cerlery, broccoli, cauliflower, tomatoes, green beans. Watch out for side dishes that are high in carbs like mac n cheese, mashed potatoes, creamy coleslaw, etc. -- referral to promotions specialist. Hyperlipidemia - pt has been counseled about appropriate diet, exercise, and need for low fat food choices. I have discussed the need for the patient to take medications as prescribed. If the patient has negative side effects from the medication, they are to CALL the office and not abruptly discontinue the medication without discussion with a practitioner in the office. We will check labs in 3-6 months for follow up on the patient's chronic medical problem and to assure normal liver response to medications. Thyroid enlargement - needs scheduled for thyroid ultrasound - results to and elvia. Hyperlipidemia - decrease the zocor to 20mg daily (take 1/2 of a pill daily) - START ON CO-ENZYME Q10 - this may help with muscle weakness that can be seen with STATIN medications like zocor. Actinic keratosis - cryotherapy of forehead - use neosporin on lesion until healed decrease the zocor to 20mg daily (take 1/2 of a pill daily ) - START ON CO-ENZYME Q10 - this may help with muscle weakness that can be seen with STATIN medications like zocor. We will refer Nathalia for diabetic education at the hospital. Increase the protein in your diet. Watch out for veggies that are higher in sugar like peas, carrots, sweet potatoes, corn are all high in sugar. You need to eat salad, spinach, cerlery, broccoli, cauliflower, tomatoes, green beans. Watch out for side dishes that are high in carbs like mac n cheese, mashed potatoes, creamy coleslaw, etc. . Hyperlipidemia - pt has been counseled about appropriate diet, exercise, and need for low fat food choices. I have discussed the need for the patient to take medications as prescribed. If the patient has negative side effects from the medication, they are to CALL the office and not abruptly discontinue the medication without discussion with a practitioner in the office. We will check labs in 3-6 months for follow up on the patient's chronic medical problem and to assure normal liver response to medications. Thyroid enlargement - needs scheduled for thyroid ultrasound - results to and elvia. Hyperlipidemia - decrease the zocor to 20mg daily (take 1/2 of a pill daily) - START ON CO-ENZYME Q10 - this may help with muscle weakness that can be seen with STATIN medications like zocor. DM - uncontrolled - increase lantus to 15 units - We will refer Nathalia for diabetic education at the hospital. Increase the protein in your diet. Watch out for veggies that are higher in sugar like peas, carrots, sweet potatoes, corn are all high in sugar. You need to eat salad, spinach, cerlery, broccoli, cauliflower, tomatoes, green beans. Watch out for side dishes that are high in carbs like mac n cheese, mashed potatoes, creamy coleslaw, etc. Go back to taking your benicar at 40mg every day. Decrease the Lantus to 10 units daily - bring in your blood glucose readings in one week . Hypertension - uncontrolled - the patient's medications have been modified as documented in the visit note. The patient has been counseled to cut back on salt in diet for a no added salt diet, low fat diet, start an exercise program with low weight bearing exercises and higher aerobic activity for heart health. The patient is to check blood pressure readings as an outpatient and either fax , call, or email the readings to the office next week for practitioner to review. The pt is to call for acute concerns. Diabetes Mellitus - controlled - per recent FSBS reports. I have recommended for the patient to have follow up labs prior to the next office visit. The patient has been instructed to continue with current medications as previously directed, continue with regular FSBS monitoring to assure continued control of diabetes. Pt to call for any acute concerns, complaints, or if the blood glucose readings are starting to become less controlled. two old goats - from [employer] and home . Hypertension - well controlled - continue with current medications, continue with no added salt diet. Pt has been encouraged to exercise daily. The pt has been advised to call the office if there are any acute concerns about change in blood pressure readings at home. Diabetes Mellitus - controlled - per recent FSBS reports. I have recommended for the patient to have follow up labs prior to the next office visit. The patient has been instructed to continue with current medications as previously directed, continue with regular FSBS monitoring to assure continued control of diabetes. Pt to call for any acute concerns, complaints, or if the blood glucose readings are starting to become less controlled. Hyperlipidemia - pt has been counseled about appropriate diet, exercise, and need for low fat food choices. I have discussed the need for the patient to take medications as prescribed. If the patient has negative side effects from the medication, they are to CALL the office and not abruptly discontinue the medication without discussion with a practitioner in the office. We will check labs in 3-6 months for follow up on the patient's chronic medical problem and to assure normal liver response to medications. . Hypertension - well controlled - continue with current medications, continue with no added salt diet. Pt has been encouraged to exercise daily. The pt has been advised to call the office if there are any acute concerns about change in blood pressure readings at home. Diabetes Mellitus - controlled - per recent FSBS reports. I have recommended for the patient to have follow up labs prior to the next office visit. The patient has been instructed to continue with current medications as previously directed, continue with regular FSBS monitoring to assure continued control of diabetes. Pt to call for any acute concerns, complaints, or if the blood glucose readings are starting to become less controlled. Pharyngitis - shots given today - call if not improving CHEST XRAY TODAY ANTI-HISTAMINE DAILY . COPD EXACERBATION - COPD is a chronic problem for this patient, however, the pt is experiencing an acute exacerbation of the COPD. Pt is to receive appropriate treatment as an out patient, but the pt is aware that if symptoms worsen or do not improve, to call [facility] for instructions, or go to the EMERGENCY ROOM if the symptoms are beyond acute control with rescue medications. We have reviewed chronic treatment strategy, symptom control, and plans for acute exacerbations. No changes today to the current treatment plan as the patient is stable, monitor for acute changes. decrease Lantus to 7 units in the mornings. . Diabetes mellitus - blood glucose level too well controlled - decrease dose of lantus from 10 units to 7 units - decrease novolog as directed. Dysuria - checked ua - will send for culture - continue with monitor - rocephin shot given today. Fever - monitor temperature at home, call if consistently above 100F. get blood work done about 1 week before next appt and we will disucss your labs at the next office visit. protein based snack before bed . Diabetes Mellitus - controlled - per recent FSBS reports. I have recommended for the patient to have follow up labs prior to the next office visit. The patient has been instructed to continue with current medications as previously directed, continue with regular FSBS monitoring to assure continued control of diabetes. Pt to call for any acute concerns, complaints, or if the blood glucose readings are starting to become less controlled. Hypertension - well controlled - continue with current medications, continue with no added salt diet. Pt has been encouraged to exercise daily. The pt has been advised to call the office if there are any acute concerns about change in blood pressure readings at home. . Diabetes Mellitus - controlled - per recent FSBS reports. I have recommended for the patient to have follow up labs prior to the next office visit. The patient has been instructed to continue with current medications as previously directed, continue with regular FSBS monitoring to assure continued control of diabetes. Pt to call for any acute concerns, complaints, or if the blood glucose readings are starting to become less controlled. . Hypertension - well controlled - continue with current medications, continue with no added salt diet. Pt has been encouraged to exercise daily. The pt has been advised to call the office if there are any acute concerns about change in blood pressure readings at home. Diabetes Mellitus - controlled - per recent FSBS reports. I have recommended for the patient to have follow up labs prior to the next office visit. The patient has been instructed to continue with current medications as previously directed, continue with regular FSBS monitoring to assure continued control of diabetes. Pt to call for any acute concerns, complaints, or if the blood glucose readings are starting to become less controlled. Hyperlipidemia - pt has been counseled about appropriate diet, exercise, and need for low fat food choices. I have discussed the need for the patient to take medications as prescribed. If the patient has negative side effects from the medication, they are to CALL the office and not abruptly discontinue the medication without discussion with a practitioner in the office. We will check labs in 3-6 months for follow up on the patient's chronic medical problem and to assure normal liver response to medications. . Medicare Exam - today we discussed the patients past history, immunizations, preventative exams/evaluations - colonoscopy, fecal occult blood testing, routine labs for renal function, glucose, cholesterol, osteoporosis evaluations, cardiovascular testing and cancer screenings. We have also discussed mental health and the signs/symptoms of depression. The patient was advised of home safety evaluations and the need to make sure that as the aging process continues, we need to be aware of different ways to make the home a safer place to reside. The patient has also been counseled that exercise is necessary - and of utmost importance as we age to help decrease fall risk and to maintain independence in the home. Today we discussed the need for the patient to create paperwork for Advanced directives as well as for the patient to provide this office with a copy of her DOP[employer] paperwork for health care surrogate. . COPD [id number] resolved-call if symptoms return-monitor blood sugars closely for the next few days and discussed diet. zocor can cause muscle aches - the zocor is for high cholesterol - there is a supplement that can decrease the muscle aches that you are having - it is called COENZYME Q10 - YOU TAKE DIRECTED ON THE BOTTLE. call the office if the symptoms are not better. . Diabetes Mellitus - controlled - per recent FSBS reports. I have recommended for the patient to have follow up labs prior to the next office visit. The patient has been instructed to continue with current medications as previously directed, continue with regular FSBS monitoring to assure continued control of diabetes. Pt to call for any acute concerns, complaints, or if the blood glucose readings are starting to become less controlled. Hyperlipidemia - with muscle aches - recommended pt to start on co-enzyme q10. Back pain - referral to [facility] for further eval and treat.
--- NOTE | 2017-03-31 11:56 | ED Back Pain ---
General Chief Complaint: Back Problems Stated Complaint: BACK PAIN Nursing Triage Note: PT TO ROOM 5 PT CO OF R LOW BACK PAIN RADIATING TO R HIP, AND R LEG, STATES STARTED LAST DURING TRIP TO [facility], WAS SEEN BY DR GARAY AND FOLLOWED UP W DR JOYNER ON SATURDAY. PT IS CURRENTLY BEING TREATED FOR UTI, STATES DR JOYNER DID FOLLOW UP [facility] ON SATURDAY. Nursing Sepsis Screen: No Definite Risk Source of Information: Patient Exam Limitations: No Limitations History of Present Illness Date Seen by Provider: Mar 31, 2017 Time Seen by Provider: 13:06 Initial Comments The patient is an 86-year-old white female who presents today with complaints of severe back pain. She reports that she has a history of back pain and had a procedure done involving a lumbar disc and fusion some years ago. She reports that last week they went to [place] to visit grandchildren. During the night on Saturday she became wracked with severe pain in the lumbar area. She made it through the night. She was then taken to the emergency room in [place]. No particular workup was done but some medications were prescribed. She is continued to have pain in this week and it was much worse through the night last night. She is nearly tearful. She points to the pain is coming from the right buttocks and down the back of the right leg. She stated that during her previous episode leading up to her spinal surgery she had what was called sciatica. There has been no new injury. Timing/Duration: Other Pain/Injury Location: Back, Lower Extremity Radiation: Buttocks, Lower Legs Method of Injury: Unknown Allergies and Home Medications Allergies Coded Allergies: NKANo Known Allergies (Verified Allergy, Unknown, 08/20/06) Home Medications Aspirin 325 Mg Tablet, 81 MG PO EVERY OTHER DAY, (Reported) Calcium Carbonate/Vitamin D3 1 Tab Tablet, (Reported) Gabapentin 300 Mg Cap, 100 MG PO DAILY, (Reported) Hydrochlorothiazide 12.5 Mg Cap, 12.5 MG GT, (Reported) Insulin Glargine,Hum.rec.anlog 100 U/Ml Vial, 18 UNIT MORNING, (Reported) Insulin Human Lispro 100 U/Ml Vial, (Reported) Metoprolol Tartrate 50 Mg Tablet, 1 EACH PO BID, (Reported) Nitrofurantoin Monohyd/M-Cryst 100 Mg Capsule, (Reported) Olmesartn/Hydrochlorothiazide 1 Tab Tablet, 1 TAB PO, (Reported) Sertraline Hcl 50 Mg Tablet, 0 PO DAILY, (Reported) Simvastatin 40 Mg Tablet, 40 MG PO BID, (Reported) Tramadol HCl 50 Mg Tablet, (Reported) Constitutional: see HPI EENTM: no symptoms reported Respiratory: no symptoms reported Cardiovascular: no symptoms reported Gastrointestinal: no symptoms reported Genitourinary: no symptoms reported Musculoskeletal: back pain, other (radiation of pain down the right leg posteriorly) Skin: no symptoms reported Psychiatric/Neurological: No Symptoms Reported Past Qiixgob-Mztnst-Jajqwj Hx Patient Social History Alcohol Use: Denies Use Recreational Drug Use: No Smoking Status: Never a Smoker 2nd Hand Smoke Exposure: No Recent Foreign Travel: No Contact w/Someone Who Travel: No Recent Infectious Disease Expo: No Recent Hopitalizations: No Physical Abuse: No Sexual Abuse: No Immunizations Up To Date Tetanus Booster (TDap): Less than 5yrs PED Vaccines UTD: Yes Date of Pneumonia Vaccine: Dec 06, 2011 Date of Influenza Vaccine: Dec 06, 2011 Surgeries History of Surgeries: Yes (APPY) Respiratory History of Respiratory Disorde: No Cardiovascular History of Cardiac Disorders: Yes Cardiac Disorders: Coronary Artery Disease, Hypertension Neurological History of Neurological Disord: No Genitourinary History of Genitourinary Disor: No Gastrointestinal History of Gastrointestinal Di: No Musculoskeletal History of Musculoskeletal Dis: Yes Musculoskeletal Disorders: Chronic Back Pain Endocrine History of Endocrine Disorders: Yes Endocrine Disorders: Diabetes, Insulin dep HEENT History of HEENT Disorders: Yes Loss of Vision: Left Hearing Impairment: Bilateral Hearing Aide Cancer History of Cancer: No Psychosocial History of Psychiatric Problem: No Behavioral Health Disorders: Anxiety, Depression Suicide Risk Score: 0 Integumentary History of Skin or Integumenta: No Blood Transfusions History of Blood Disorders: Yes (ANEMIA) Adverse Reaction to a Blood Tr: No Physical Exam Vital Signs Vital Sign - Last 12Hours 03/31/17 10:20 Temp 97.5 Pulse 93 Resp 18 B/P (MAP) 122/87 (99) Pulse Ox 97 Capillary Refill : Less Than 3 Seconds General Appearance: Moderate Distress (appears miserable and has difficulty even rolling to her left side for my examination.) HEENT: Normal ENT Inspection Neck: Full Range of Motion, Normal Inspection, Non Tender, Supple Cardiovascular: Regular Rate, Rhythm, No Edema, No Gallop, No JVD, No Murmur, Normal Peripheral Pulses Respiratory: Chest Non Tender, Lungs Clear, Normal Breath Sounds, No Accessory Muscle Use, No Respiratory Distress, Accessory Muscle Use Gastrointestinal: Normal Bowel Sounds, No Organomegaly, No Pulsatile Mass, Non Tender, Soft Neurologic/Psychiatric: Alert, Oriented x3, No Motor/Sensory Deficits, Normal Mood/Affect, admitting manager II-XII Norm as Tested (there is some distortion of the lumbar spine. Scarring consistent with disc surgery as noted in the distal lumbar spine.) Progress/Results/Core Measures Results/Orders Lab Results Laboratory Tests Test 03/31/17 11:56 03/31/17 12:01 03/31/17 12:44 03/31/17 12:57 Range/Units Glucometer 227 H 70-110 MG/DL Urine Color YELLOW Urine Clarity CLEAR Urine pH 5 5-9 Urine Specific [place] 1.020 1.016-1.022 Urine Protein 1+ H NEGATIVE Urine Glucose (UA) 4+ H NEGATIVE Urine Ketones 2+ H NEGATIVE Urine Nitrite NEGATIVE NEGATIVE Urine Bilirubin NEGATIVE NEGATIVE Urine Urobilinogen NORMAL NORMAL MG/DL Urine Leukocyte Esterase 1+ H NEGATIVE Urine RBC (Auto) NEGATIVE NEGATIVE Urine RBC NONE /HPF Urine WBC 2-5 /HPF Urine Crystals NONE /LPF Urine Bacteria FEW H /HPF Urine Casts NONE /LPF Urine Mucus NEGATIVE /LPF Urine Culture Indicated NO My Orders Orders - CESAR TELLO MD Cbc With Automated Diff (03/31/17 11:51) Comprehensive Metabolic Panel (03/31/17 11:51) Ua Culture If Indicated (03/31/17 11:51) Ct Lumbar Spine Wo (03/31/17 11:51) Vital Signs/I&O Vital Sign - Last 12Hours 03/31/17 10:20 Temp 97.5 Pulse 93 Resp 18 B/P (MAP) 122/87 (99) Pulse Ox 97 Blood Pressure Mean: 99 Departure Communication (Admissions) Progress Notes [id number] Emanuel Impression Impression: Primary Impression: sciatica Disposition: 09 ADMITTED INPATIENT Condition: Stable/Unchanged Admissions Decision to Admit Reason: Admit from ER (General) Decision to Admit/Date: Mar 31, 2017 Time/Decision to Admit Time: 13:05 Departure-Patient Inst. Referrals: YUNIOR JOYNER MD (PCP/Family) Primary Care Physician CESAR TELLO MD Mar 31, 2017 11:56
--- OUTSIDE RECORDS SUMMARY | 2017-03-31 11:56 | XMS REPORT | CCD ---
Author Author [facility] Organization [facility] Address [address] [place] [address] Phone Care Team Providers Care Sales Team Manager Name Role Phone PP Unavailable CCM Unavailable Summary Purpose Interface Exchange Insurance Providers Payer name Policy type / Coverage type Covered libertarian ID Effective Begin Date Effective End Date WPS Medicare Part B Medicare Part B [id number] Unknown Unknown [facility] Medicare Part B [id number] Unknown Unknown Family history Mother Diagnosis Age At Onset No Family Disease Entered N/A Father Diagnosis Age At Onset Heart Attack Unknown Diabetes Unknown Social History Social History Element Codes Description Effective Dates Number of children Unknown 2 Sons, 5 grandchildren, 11 great grandchildren 01/08/2017 Marital status Unknown [place] in 201606/06/[address]: 381799790 Never smoker 08/13/[address]: 989310242 Never drinks alcohol 08/13/2014 Allergies, Adverse Reactions, [...] Kenalog 40 mg/mL suspension for injection RxNorm: 9830859 1 Milliliter(s) Inj 03/26/2017 03/26/2017 Inactive Novolog 100 unit/mL subcutaneous solution RxNorm: 851342 SSI 5 units over 150 and for every additional 50 add 2 units Unit(s) SQ TID adjust as needed for glucose control 02/19/2017 09/16/2017 Active Lantus 100 unit/mL subcutaneous solution RxNorm: 168463 10 Unit(s) SQ QAM 02/19/2017 No Stop Date Active ceftriaxone 500 mg solution for injection RxNorm: 2616079 Inj 01/16/2017 01/16/2017 Inactive Lantus 100 unit/mL subcutaneous solution RxNorm: 630678 7 Unit(s) SQ QAM 01/16/2017 02/18/2017 Inactive Lantus 100 unit/mL subcutaneous solution RxNorm: 852127 10 Unit(s) SQ daily 01/08/2017 01/11/2017 Inactive gabapentin 100 mg capsule RxNorm: 481084 TAKE ONE CAPSULE BY MOUTH THREE TIMES A DAY 11/30/2016 02/03/2017 Inactive Zoloft 50 mg tablet RxNorm: 622359 TAKE ONE TABLET BY MOUTH DAILY 10/30/2016 04/27/2017 Active Zocor 20 mg tablet RxNorm: 676164 1 Tablet(s) PO daily 201610/10/2017 Active stop the 40mg dose of zocor, start on 20mg Lantus 100 unit/mL subcutaneous solution RxNorm: 845027 15 Unit(s) SQ daily 10/16/2016 01/07/2017 Inactive Novolog 100 unit/mL subcutaneous solution RxNorm: 901907 SSI 5 units over 150 and for every additional 50 add 2 units Unit(s) SQ TID adjust as needed for glucose control 10/16/2016 02/18/2017 Inactive prednisone 20 mg tablet RxNorm: 148274 1 Tablet(s) PO BID 10/0110/05/2016 Inactive Kenalog 40 mg/mL suspension for injection RxNorm: 5125530 1 Milliliter(s) Inj 09/27/2016 09/27/2016 Inactive Zithromax Z-Kishor 250 mg tablet RxNorm: 688679 1 Tablet(s) PO UD 09/27/2016 10/01/2016 Inactive ceftriaxone 500 mg solution for injection RxNorm: 3343968 1 Milliliter(s) Inj 09/27/2016 09/27/2016 Inactive Tessalon Perles 100 mg capsule RxNorm: 406800 1 Capsule(s) PO Q8 PRN as needed 09/22/2016 No Stop Date Active Augmentin 500 mg-125 mg tablet RxNorm: 980017 1 Tablet(s) PO BID 09/22/2016 09/26/2016 Inactive metoprolol tartrate 50 mg tablet RxNorm: 844191 TAKE ONE TABLET BY MOUTH TWICE A DAY 08/02/2016 07/27/2017 Active Novolog 100 unit/mL subcutaneous solution RxNorm: 567618 10 Unit(s) SQ TID adjust as needed for glucose control 07/19/2016 10/15/2016 Inactive Humalog 100 unit/mL subcutaneous solution RxNorm: 897146 INJECT 10 UNITS UNDER THE SKIN BEFORE EACH MEAL 07/16/201607/16 Inactive Kenalog 40 mg/mL suspension for injection RxNorm: 7674203 1 Milliliter(s) Inj 07/09/2016 07/09/2016 Inactive ceftriaxone 500 mg solution for injection RxNorm: 7533292 Inj 07/09/2016 07/09/2016 Inactive Lantus 100 unit/mL subcutaneous solution RxNorm: 442585 Unit(s) INJECT 13 UNITS UNDER THE SKIN IN THE MORNING 06/06/2016 10/15/2016 Inactive Zoloft 50 mg tablet RxNorm: 477375 TAKE ONE TABLET BY MOUTH DAILY 04/27/2016 07/25/2016 Inactive Lantus 100 unit/mL subcutaneous solution RxNorm: 253376 INJECT 20 UNITS UNDER THE SKIN AT BEDTIME 04/27/2016 06/05/2016 Inactive amoxicillin 500 mg capsule RxNorm: 274064 1 Capsule(s) PO TID 04/03/2016 04/12/2016 Inactive Zyrtec 10 mg tablet RxNorm: 6016266 1 Tablet(s) PO daily 04/0305/02/2016 Inactive hydrochlorothiazide 12.5 mg capsule RxNorm: 938828 TAKE ONE CAPSULE BY MOUTH DAILY 03/12/2016 12/06/2016 Inactive Benicar 40 mg tablet RxNorm: 687581 1 Tablet(s) PO daily 201504/27/2016 Inactive Benicar 40 mg tablet RxNorm: 445436 1 Tablet(s) PO daily 201502/27/2016 Inactive gabapentin 100 mg capsule RxNorm: 525879 TAKE ONE CAPSULE BY MOUTH THREE TIMES A DAY 01/09/2016 04/16/2016 Inactive metoprolol tartrate 50 mg tablet RxNorm: 749626 TAKE ONE TABLET BY MOUTH TWICE A DAY 01/09/2016 04/07/2016 Inactive Humalog 100 unit/mL subcutaneous solution RxNorm: 278265 5-10 Unit(s) SQ AC 07/19/2015 07/18/2016 Inactive Lantus 100 unit/mL subcutaneous solution RxNorm: 020030 13 Unit(s) SQ [facility] 07/19/2015 01/15/2017 Inactive Lantus 100 unit/mL subcutaneous solution RxNorm: 224039 20 Unit(s) SQ [facility] 07/14/2015 07/18/2015 Inactive Zoloft 50 mg tablet RxNorm: 827730 1 Tablet(s) PO daily 201509/15/2015 Inactive Humalog 100 unit/mL subcutaneous solution RxNorm: 906965 10 Unit(s) SQ 05/11/2015 07/18/2015 Inactive metoprolol tartrate 50 mg tablet RxNorm: 187021 1 Tablet(s) PO BID 04/28/2015 08/25/2015 Inactive Lantus 100 unit/mL subcutaneous solution RxNorm: 794754 20 Unit(s) [facility] 04/28/2015 07/13/2015 Inactive Vesicare 10 mg tablet RxNorm: 580368 1 Tablet(s) PO QPM 201509/18/2015 Inactive hydrochlorothiazide 12.5 mg capsule RxNorm: 346272 1 Tablet(s) PO daily 01/04/2015 12/29/2015 Inactive gabapentin 100 mg capsule RxNorm: 851099 1 Capsule(s) PO TID 03/28/2015 Inactive FreeStyle [...] Date Active aspirin 81 mg tablet RxNorm: 679758 1 Tablet(s) PO daily No Start Date Active Fish Oil oral RxNorm: 8086816 oral No Start Date Active multivitamin capsule RxNorm: 1 Capsule(s) PO daily No Start Date Active Humalog 100 unit/mL subcutaneous solution RxNorm: 749690 Unit(s) SQ No Start Date 05/10/2015 Inactive Zoloft 50 mg tablet RxNorm: 646517 1 Tablet(s) PO daily No Start Date 05/18/2015 Inactive gabapentin 100 mg capsule RxNorm: 829710 1 Capsule(s) PO daily No Start Date 11/28/2014 Inactive metoprolol tartrate 50 mg tablet RxNorm: 047055 1 Tablet(s) PO TID No Start Date 04/27/2015 Inactive Benicar 40 mg tablet RxNorm: 499062 1 Tablet(s) PO daily No Start Date 02/19/2016 Inactive hydrochlorothiazide 25 mg tablet RxNorm: 286138 1 Tablet(s) PO daily No Start Date 01/03/2015 Inactive Lantus 100 unit/mL subcutaneous solution RxNorm: 652221 13 Unit(s) SQ No Start Date 04/27/2015 Inactive Zocor 40 mg tablet RxNorm: 054433 1 Tablet(s) PO daily No Start Date 10/15/2016 Inactive Medication Administered Medication Codes Instructions Start Date Status Kenalog 40 mg/mL suspension for injection RxNorm: 4679554 1M03/26/2017 No longer Active ceftriaxone 500 mg solution for injection RxNorm: 2949522 01/16/2017 No longer Active Kenalog 40 mg/mL suspension for injection RxNorm: 4892477 1Milliliter 09/27/2016 No longer Active ceftriaxone 500 mg solution for injection RxNorm: 0634327 1Millili09/27/2016 No longer Active Kenalog 40 mg/mL suspension for injection RxNorm: 2649031 1Milliliter 07/09/2016 No longer Active ceftriaxone 500 mg solution for injection RxNorm: 6155925 07/09/2016 No longer Active Immunizations Vaccine Codes [...] NO Growth Day 1 01/18/2017 Free T4 Vhg830 FREE T4 1.13 ng/dL 10/09/2016 Tsh Ord6 [...] 31.5 pg 10/08/2016 Cbc With Differential Ord2 Emmet% 4.0 % 10/08/2016 Cbc With Differential Ord2 Eos% 0.0 % 10/08/2016 Cbc With Differential Ord2 MCHC 34.1 pg 10/08/2016 Cbc With Differential Ord2 Baso% 0.0 % 10/08/2016 Cbc With Differential Ord2 PLT 227 K/ul 10/08/2016 Cbc With Differential Ord2 Neut ABS# 7.88 K/ul 10/08/2016 Cbc With Differential Ord2 RDW 12.4 % 10/08/2016 Cbc With Differential Ord2 Lymph ABS# 0.96 K/ul 10/08/2016 Cbc With Differential Ord2 Emmet ABS# 0.4 K/ul 10/08/2016 Cbc With Differential Ord2 Eos ABS# 0.0 K/ul 10/08/2016 Cbc With Differential Ord2 Baso ABS# 0.0 K/ul 10/08/2016 Comp Metabolic Eqi071 NA 135 mEq/L 10/08/2016 Comp Metabolic Znc694 K 4.3 mEq/L 10/08/2016 Comp Metabolic Xuv316 CL 98 mEq/L 10/08/2016 Comp Metabolic Nme558 CO2 22.0 mEq/L 10/08/2016 Comp Metabolic Zle909 ANION GAP 19 10/08/2016 Comp Metabolic Don317 GLUCOSE 400 mg/dL 10/08/2016 Comp Metabolic Gvw207 Creat 0.7 mg/dL 10/08/2016 Comp Metabolic Qlu442 eGFR 79 ml/min/1.73m2 10/08/2016 Comp Metabolic Nwe981 BUN 27 mg/dL 10/08/2016 Comp Metabolic Rff901 B/C Ratio 36.5 Ratio 10/08/2016 Comp Metabolic Ohc606 CALCIUM 9.1 mg/dL 10/08/2016 Comp Metabolic Ukk128 ALK PHOS 65 U/L 10/08/2016 Comp Metabolic Ojd949 AST(SGOT) 28 U/L 10/08/2016 Comp Metabolic Egg486 ALT(SGPT) 24 U/L 10/08/2016 Comp Metabolic Rkx983 BILI T 0.7 mg/dL 10/08/2016 Comp Metabolic Uip749 ALBUMIN 3.8 g/dL 10/08/2016 Comp Metabolic Zic173 TPRO 6.0 g/dL 10/08/2016 Comp Metabolic Lbo265 GLOB 2.2 g/dL 10/08/2016 Comp Metabolic Jpc010 A/G Ratio 1.7 Ratio 10/08/2016 Comp Metabolic Flf886 Osmo 292 mOsmo 10/08/2016 %Hba1C Cer370 % HbA1c 65349-3 7.0 % 10/08/2016 %Hba1C Nuv211 Gluc Ave 154 mg/dL 10/08/2016 Microalbumin Dww752 MicroAlb <0.7 mg/dL 10/08/2016 Lipid Ord30 CHOL 172 mg/dL 10/08/2016 Lipid Ord30 HDL 72.0 mg/dl 10/08/2016 Lipid Ord30 TRIG 72 mg/dL 10/08/2016 Lipid Ord30 LDL 86 mg/dL 10/08/2016 Lipid Ord30 C/HDL 2.4 Ratio 10/08/2016 C A/B FLU Influenza A Scr TNP:Duplicate Order 04/03/2016 C A/B FLU Influenza B Scr TNP:Duplicate Order 04/03/2016 C A/B FLU IC OK? TNP:Duplicate Order 04/03/2016 C A/B FLU [id number] Influenza A Scr Negative 04/03/2016 C A/B FLU [id number] Influenza B Scr Negative 04/03/2016 Comp Metabolic Ixa221 NA 138 mEq/L 09/15/2015 Comp Metabolic Fij231 K 4.4 mEq/L 09/15/2015 Comp Metabolic Cdq427 CL 103 mEq/L 09/15/2015 Comp Metabolic Xao595 CO2 29.0 mEq/L 09/15/2015 Comp Metabolic Szb277 ANION GAP 10 09/15/2015 Comp Metabolic Nxh249 GLUCOSE 156 mg/dL 09/15/2015 Comp Metabolic Irw405 Creat 0.7 mg/dL 09/15/2015 Comp Metabolic Lrl464 eGFR 79 ml/min/1.73m2 09/15/2015 Comp Metabolic Rlv187 BUN 23 mg/dL 09/15/2015 Comp Metabolic Pdt649 B/C Ratio 31.1 Ratio 09/15/2015 Comp Metabolic Qcp965 CALCIUM 9.1 mg/dL 09/15/2015 Comp Metabolic Mgc426 ALK PHOS 58 U/L 09/15/2015 Comp Metabolic Jnz096 AST(SGOT) 19 U/L 09/15/2015 Comp Metabolic Mdx435 ALT(SGPT) 11 U/L 09/15/2015 Comp Metabolic Sww308 BILI T 0.6 mg/dL 09/15/2015 Comp Metabolic Xmv265 ALBUMIN 3.9 g/dL 09/15/2015 Comp Metabolic Cpf705 TPRO 5.8 g/dL 09/15/2015 Comp Metabolic Dzb138 GLOB 1.9 g/dL 09/15/2015 Comp Metabolic Kgv803 A/G Ratio 2.1 Ratio 09/15/2015 Comp Metabolic Nqa427 Osmo 283 mOsmo 09/15/2015 Cbc With Differential Ord2 WBC 4.40 K/ul 09/15/2015 Cbc With Differential Ord2 RBC 3.84 M/ul 09/15/2015 Cbc With Differential Ord2 HGB 11.7 g/dl 09/15/2015 Cbc With Differential Ord2 Neut% 68.3 % 09/15/2015 Cbc With Differential Ord2 HCT 34.8 % 09/15/2015 Cbc With Differential Ord2 MCV 90.6 fl 09/15/2015 Cbc With Differential Ord2 Lymph% 19.5 % 09/15/2015 Cbc With Differential Ord2 Emmet% 10.2 % 09/15/2015 Cbc With Differential Ord2 MCH 30.5 pg 09/15/2015 Cbc With Differential Ord2 Eos% 1.8 % 09/15/2015 Cbc With Differential Ord2 MCHC 33.6 pg 09/15/2015 Cbc With Differential Ord2 PLT 181 K/ul 09/15/2015 Cbc With Differential Ord2 Baso% 0.2 % 09/15/2015 Cbc With Differential Ord2 Neut ABS# 3.00 K/ul 09/15/2015 Cbc With Differential Ord2 RDW 12.6 % 09/15/2015 Cbc With Differential Ord2 Lymph ABS# 0.86 K/ul 09/15/2015 Cbc With Differential Ord2 Emmet ABS# 0.5 K/ul 09/15/2015 Cbc With Differential Ord2 Eos ABS# 0.1 K/ul 09/15/2015 Cbc With Differential Ord2 Baso ABS# 0.0 K/ul 09/15/2015 Tsh Ord6 hTSH II 0.76 uIU/mL 09/15/2015 Lipid Ord30 CHOL 139 mg/dL 09/15/2015 Lipid Ord30 HDL 57.0 mg/dl 09/15/2015 Lipid Ord30 TRIG 76 mg/dL 09/15/2015 Lipid Ord30 LDL 67 mg/dL 09/15/2015 Lipid Ord30 C/HDL 2.4 Ratio 09/15/2015 %Hba1C Sgp869 % HbA1c 99121-7 6.6 % 09/15/2015 %Hba1C Fjb701 Gluc Ave 143 mg/dL 09/15/2015 Tsh Ord6 hTSH II 0.68 uIU/mL 06/02/2015 %Hba1C Knr757 % HbA1c 56997-2 6.5 % 06/02/2015 %Hba1C Tou486 Gluc Ave 140 mg/dL 06/02/2015 Comp Metabolic Mwo279 NA 139 mEq/L 06/02/2015 Comp Metabolic Grz809 K 4.5 mEq/L 06/02/2015 Comp Metabolic Fxq603 CL 104 mEq/L 06/02/2015 Comp Metabolic Zus606 CO2 25.0 mEq/L 06/02/2015 Comp Metabolic Acd128 ANION GAP 15 06/02/2015 Comp Metabolic Qit334 GLUCOSE 123 mg/dL 06/02/2015 Comp Metabolic Sar535 Creat 0.7 mg/dL 06/02/2015 Comp Metabolic Afh620 eGFR 92 ml/min/1.73m2 06/02/2015 Comp Metabolic Tha615 BUN 21 mg/dL 06/02/2015 Comp Metabolic Fyu170 B/C Ratio 32.3 Ratio 06/02/2015 Comp Metabolic Auo492 CALCIUM 9.5 mg/dL 06/02/2015 Comp Metabolic Mgg669 ALK PHOS 66 U/L 06/02/2015 Comp Metabolic Svg405 AST(SGOT) 19 U/L 06/02/2015 Comp Metabolic Eck446 ALT(SGPT) 13 U/L 06/02/2015 Comp Metabolic Iyb736 BILI T 0.5 mg/dL 06/02/2015 Comp Metabolic Azh451 ALBUMIN 4.0 g/dL 06/02/2015 Comp Metabolic Cuh849 TPRO 6.3 g/dL 06/02/2015 Comp Metabolic Thz749 GLOB 2.3 g/dL 06/02/2015 Comp Metabolic Hak245 A/G Ratio 1.7 Ratio 06/02/2015 Comp Metabolic Mvp120 Osmo 282 mOsmo 06/02/2015 %Hba1C Ecf528 % HbA1c 44605-7 6.7 % 02/17/2015 %Hba1C Qbb938 Gluc Ave 146 mg/dL 02/17/2015 Comp Metabolic Odj688 NA 133 mEq/L 02/17/2015 Comp Metabolic Bty204 K 4.3 mEq/L 02/17/2015 Comp Metabolic Cpj142 CL 99 mEq/L 02/17/2015 Comp Metabolic Pjn237 CO2 27.0 mEq/L 02/17/2015 Comp Metabolic Xmi979 ANION GAP 11 02/17/2015 Comp Metabolic Wma796 GLUCOSE 239 mg/dL 02/17/2015 Comp Metabolic Ngs174 Creat 0.7 mg/dL 02/17/2015 Comp Metabolic Fgz947 eGFR 79 ml/min/1.73m2 02/17/2015 Comp Metabolic Izr513 BUN 24 mg/dL 02/17/2015 Comp Metabolic Dld377 B/C Ratio 32.4 Ratio 02/17/2015 Comp Metabolic Txu186 CALCIUM 9.1 mg/dL 02/17/2015 Comp Metabolic Hdr497 ALK PHOS 75 U/L 02/17/2015 Comp Metabolic Cio213 AST(SGOT) 18 U/L 02/17/2015 Comp Metabolic Bhv720 ALT(SGPT) 11 U/L 02/17/2015 Comp Metabolic Tde081 BILI T 0.6 mg/dL 02/17/2015 Comp Metabolic Acx525 ALBUMIN 4.2 g/dL 02/17/2015 Comp Metabolic Trl631 TPRO 6.2 g/dL 02/17/2015 Comp Metabolic Vat378 GLOB 2.0 g/dL 02/17/2015 Comp Metabolic Cvq853 A/G Ratio 2.1 Ratio 02/17/2015 Comp Metabolic Buk093 Osmo 278 mOsmo 02/17/2015 %Hba1C Hrg871 % HbA1c 15967-5 6.7 % 11/15/2014 %Hba1C Rdh814 Gluc Ave 146 mg/dL 11/15/2014 Comp Metabolic Dcb520 NA 134 mEq/L 11/15/2014 Comp Metabolic Ioo439 K 4.5 mEq/L 11/15/2014 Comp Metabolic Obq153 CL 101 mEq/L 11/15/2014 Comp Metabolic Rcr298 CO2 27.0 mEq/L 11/15/2014 Comp Metabolic Sko452 ANION GAP 11 11/15/2014 Comp Metabolic Fad347 GLUCOSE 293 mg/dL 11/15/2014 Comp Metabolic Bpx336 Creat 0.7 mg/dL 11/15/2014 Comp Metabolic Enp599 eGFR 87 ml/min/1.73m2 11/15/2014 Comp Metabolic Qnp432 BUN 20 mg/dL 11/15/2014 Comp Metabolic Ipi786 B/C Ratio 29.4 Ratio 11/15/2014 Comp Metabolic Yhu776 CALCIUM 9.0 mg/dL 11/15/2014 Comp Metabolic Oqk070 ALK PHOS 67 U/L 11/15/2014 Comp Metabolic Xhs758 AST(SGOT) 17 U/L 11/15/2014 Comp Metabolic Uqt077 ALT(SGPT) 10 U/L 11/15/2014 Comp Metabolic Vwo355 BILI T 0.6 mg/dL 11/15/2014 Comp Metabolic Vfu923 ALBUMIN 4.0 g/dL 11/15/2014 Comp Metabolic Qgs887 TPRO 6.0 g/dL 11/15/2014 Comp Metabolic Jrj023 GLOB 2.0 g/dL 11/15/2014 Comp Metabolic Zcw437 A/G Ratio 2.0 Ratio 11/15/2014 Comp Metabolic Zny883 Osmo 282 mOsmo 11/15/2014 Review of Systems [...] Procedures Procedure Codes Date DRAIN/INJECT JOINT/BURSA CPT-4: 74102 03/26/2017 TRIAMCINOLONE ACET INJ NOS CPT-4: J3301 03/26/2017 URINALYSIS NONAUTO W/O SCOPE CPT-4: 28460 01/16/2017 THER/PROPH/DIAG INJ SC/IM CPT-4: 96046 01/16/2017 ROCEPHIN, PER 250 MG CPT-4: J0696 01/16/2017 DESTRUCT PREMALG LESION CPT-4: 09434 10/16/2016 TRIAMCINOLONE ACET INJ NOS CPT-4: J3301 09/27/2016 ROCEPHIN, PER 250 MG CPT-4: J0696 09/27/2016 PPPS, SUBSEQ VISIT CPT -4: G0439 07/10/2016 THER/PROPH/DIAG INJ SC/IM CPT-4: 80712 07/09/2016 TRIAMCINOLONE ACET INJ NOS CPT-4: J3301 07/09/2016 ROCEPHIN, PER 250 MG CPT-4: J0696 07/09/2016 ADMIN PNEUMOCOCCAL VACCINE SNOMED CT: 94406072 CPT-4: G0009 02/15/2015 PNEUMOCOCCAL VACC 13 LIMA IM Formatting Model/CDA Sections, Assigned to SNOMED CT: 33688859 CPT-4: 81937Abyqqes 02/15/2015 ADMIN INFLUENZA VIRUS VAC CPT-4: G0008 12/10/2014 FLU VACC 4 LIMA 3 YRS PLUS IM Formatting Model/CDA Sections, Assigned to SNOMED CT: 33655772 CPT-4: 19704Kmrmbeq 12/10/2014 Vital Signs Date Vital 03/26/2017 Blood Pressure 1: 150/78 Code : 8480-6 BMI: 23.2 Code : 94601-0 Heart Rate 1 : 73 bpm Height: 5'2" SpO2: 99% Weight: 127 lbs 02/19/2017 Blood Pressure 1: 126/64 Code : 8480-6 BMI: 22.9 Code : 29363-7 Heart Rate 1 : 74 bpm Height: 5'2" SpO2: 99% Weight: 125 lbs 01/16/2017 Blood Pressure 1: 136/68 Code : 8480-6 Heart Rate 1: 97 bpm Height: 5'2" Respiratory Rate: 16 bpm Temperature: 37.5 (C) / 99.5 (F) Weight: 01/08/2017 Blood Pressure 1: 144/60 Code : 8480-6 BMI: 23.0 Code : 62477-0 Heart Rate 1 : 71 bpm Height: 5'2" SpO2: 96% Weight: 126 lbs 11/21/2016 Blood Pressure 1: 150/62 Code : 8480-6 BMI: 23.2 Code : 19344-4 Heart Rate 1 : 73 bpm Height: 5'2" SpO2: 94% Weight: 127 lbs 10/16/2016 Blood Pressure 1: 142/82 Code : 8480-6 BMI: 22.9 Code : 12840-2 Heart Rate 1 : 80 bpm Height: 5'2" SpO2: 96% Weight: 125 lbs 10/08/2016 Blood Pressure 1: 150/72 Code : 8480-6 Heart Rate 1: 65 bpm Height: 5'2" SpO2: 98% 10/01/2016 Blood Pressure 1: 152/76 Code : 8480-6 Heart Rate 1: 69 bpm Height: 5'2" SpO2: 97% 09/27/2016 Blood Pressure 1: 122/64 Code : 8480-6 BMI: 23.3 Code : 09596-7 Heart Rate 1 : 80 bpm Height: 5'2" SpO2: 98% Weight: 127 lbs 8 oz 07/19/2016 Blood Pressure 1: 118/68 Code : 8480-6 BMI: 23.0 Code : 25671-1 Heart Rate 1 : 62 bpm Height: 5'2" SpO2: 97% Weight: 126 lbs 07/10/2016 Blood Pressure 1: 132/64 Code : 8480-6 BMI: 23.4 Code : 25957-6 Heart Rate 1 : 82 bpm Height: 5'2" SpO2: 98% Waist Measure (cm): 76 cm Weight: 128 lbs 07/09/2016 Blood Pressure 1: 132/64 Code : 8480-6 BMI: 23.4 Code : 23015-0 Heart Rate 1 : 82 bpm Height: 5'2" SpO2: 98% Temperature: 37.2 (C) / 98.9 (F) Weight: 128 lbs 06/06/2016 Blood Pressure 1: 144/66 Code : 8480-6 BMI: 23.4 Code : 45921-0 Heart Rate 1 : 77 bpm Height: 5'2" SpO2: 97% Weight: 128 lbs 04/03/2016 Blood Pressure 1: 164/70 Code : 8480-6 BMI: 24.5 Code : 77215-5 Heart Rate 1 : 80 bpm Height: 5'2" SpO2: 98% Weight: 134 lbs 12/26/2015 Blood Pressure 1: 130/72 Code : 8480-6 BMI: 24.1 Code : 06152-8 Heart Rate 1 : 63 bpm Height: 5'2" SpO2: 98% Weight: 132 lbs 09/19/2015 Blood Pressure 1: 140/68 Code : 8480-6 BMI: 24.2 Code : 93238-8 Heart Rate 1 : 96 bpm Height: 5'2" SpO2: 98% Weight: 132 lbs 8 oz 07/19/2015 Blood Pressure 1: 128/64 Code : 8480-6 BMI: 24.2 Code : 82350-0 Heart Rate 1 : 66 bpm Height: 5'2" SpO2: 98% Weight: 132 lbs 8 oz 03/22/2015 Blood Pressure 1: 128/60 Code : 8480-6 BMI: 24.0 Code : 70547-2 Heart Rate 1 : 57 bpm Height: 5'2" SpO2: 98% Weight: 131 lbs 02/15/2015 Blood Pressure 1: 132/56 Code : 8480-6 BMI: 23.8 Code : 28134-7 Heart Rate 1 : 70 bpm Height: 5'2" SpO2: 98% Weight: 130 lbs 11/15/2014 Blood Pressure 1: 120/78 Code : 8480-6 BMI: 24.1 Code : 34881-7 Heart Rate 1 : 79 bpm Height: 5'2" SpO2: 98% Weight: 132 lbs 08/13/2014 Blood Pressure 1: 140/60 Code : 8480-6 BMI: 24.0 Code : 71306-1 Heart Rate 1 : 74 bpm Height: [...] data Encounters Encounter Performer Location Codes Date 68520 EST. PATIENT, LEVEL III Diagnosis: Sciatica, right side[ICD10: M54.31] Diagnosis: Low back pain[ICD10: M54.5] Fatmata Recinos MD, [facility] CPT-4 : 01968 03/26/2017 ([id number]) 94884 EST. PATIENT, LEVEL III Diagnosis: Type 1 diabetes mellitus without complications[ICD10: E10.9] Diagnosis: Essential (primary) hypertension[ICD10: I10] Dominique Recinos MD, [facility] CPT-4: 59173 02/19/2017 ([id number]) 35335 EST. PATIENT, LEVEL IV Diagnosis: Fever presenting with conditions classified elsewhere[ICD10: R50.81] Diagnosis: Weakness[ICD10: R53.1] Diagnosis: Frequency of micturition[ICD10: R35.0] Diagnosis: Type 1 diabetes mellitus without complications[ICD10: E10.9] Dominique Recinos MD, [facility] CPT-4: 22223 01/16/2017 ([id number]) 56525 EST. PATIENT, LEVEL IV Diagnosis: Type 1 diabetes mellitus without complications[ICD10: E10.9] Diagnosis: Essential (primary) hypertension[ICD10: I10] Dominique Recinos MD [facility] CPT-4: 79387 01/08/2017 ([id number]) 68733 EST. PATIENT, LEVEL IV Diagnosis: Essential (primary) hypertension[ICD10: I10] Diagnosis: Type 1 diabetes mellitus without complications[ICD10: E10.9] Dominique Recinos MD [facility] CPT-4: 69806 11/21/2016 ([id number]) 39232 EST. 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 PATIENT, LEVEL III Diagnosis: Chronic obstructive pulmonary disease with (acute) exacerbation[ICD10 : J44.1] Diagnosis: Cough[ICD10: R05] Maile Recinos MD, [facility] CPT-4: 16712 10/08/2016 ([id number]) Miscellaneous no charge Diagnosis: Cough[ICD10: R05] Diagnosis: Chronic obstructive pulmonary disease with (acute) exacerbation[ICD10 : J44.1] Maile Recinos MD [facility] CPT-4: 65587 ([id number]) 81835 EST. PATIENT, LEVEL III Diagnosis: Cough[ICD10: R05] Diagnosis: Acute bronchitis, unspecified[ICD10: J20.9] Maile Recinos MD, [facility] CPT-4: 60729 09/27/2016 ([id number]) 68155 EST. PATIENT, LEVEL III Diagnosis: Type 1 diabetes mellitus without complications[ICD10: E10.9] Dominique Recinos MD, [facility] CPT-4: 81922 07/19/2016 ([id number]) 64654 EST. PATIENT, LEVEL IV Diagnosis: Essential (primary) hypertension[ICD10: I10] Diagnosis: Type 1 diabetes mellitus without complications[ICD10: E10.9] Diagnosis: Other allergic rhinitis[ICD10: J30.89] Diagnosis: Acute laryngopharyngitis[ICD10: J06.0] Dominique Recinos MD [facility] CPT-4: 89420 07/09/2016 ([id number]) 98868 EST. PATIENT, LEVEL IV Diagnosis: Essential (primary) hypertension[ICD10: I10] Diagnosis: Type 1 diabetes mellitus without complications[ICD10: E10.9] Diagnosis: Mixed hyperlipidemia[ICD10: E78.2] Dominique Recinos MD [facility] CPT-4: 91682 06/06/2016 [id number] EST. PATIENT, LEVEL III Diagnosis: Other allergic rhinitis[ICD10: J30.89] Diagnosis: Acute laryngopharyngitis[ICD10: J06.0] Fatmata Recinos MD [facility] CPT-4: 84846 04/03/2016 ([id number]) 65409 EST. PATIENT, LEVEL IV Diagnosis: Type 1 diabetes mellitus without complications[ICD10: E10.9] Diagnosis: Essential (primary) hypertension[ICD10: I10] Diagnosis: Pain in right hand[ICD10: M79.641] Dominique Recinos MD [facility] CPT-4: 58964 12/26/2015 ([id number]) 11199 EST. PATIENT, LEVEL IV Diagnosis: Type 1 diabetes mellitus without complications[ICD10: E10.9] Diagnosis: Essential (primary) hypertension[ICD10: I10] Dominique Recinos MD [facility] CPT-4: 67711 09/19/2015 ([id number]) 95648 EST. PATIENT, LEVEL IV Diagnosis: Essential (primary) hypertension[ICD10: I10] Diagnosis: Mixed hyperlipidemia[ICD10: E78.2] Diagnosis: Type 1 diabetes mellitus without complications[ICD10: E10.9] Dominique Recinos MD [facility] CPT-4: 63785 07/19/2015 ([id number]) 57732 EST. 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 PATIENT, LEVEL IV Diagnosis: ESSENTIAL HYPERTENSION[ICD9: 401.9] Diagnosis: DIABETES TYPE II[ICD9: 250.00] Diagnosis: FALL FROM LADDER[ICD9: E881.0] Diagnosis: Right hip pain[ICD9: 719.45] Diagnosis: Left hand pain[ICD9: 729.5] Diagnosis: Sacroiliac joint pain[ICD9: 724.6] Dominique Recinos MD, [facility] CPT-4: 74898 11/15/2014 ([id number]) OFFICE VISIT, NEW - LEVEL 4 Diagnosis: DIABETES TYPE II[ICD9: 250.00] Diagnosis: ESSENTIAL HYPERTENSION[ICD9: 401.9] Diagnosis: HYPERLIPIDEMIA[ICD9: 272.4] Dominique Recinos MD, [facility] CPT- 4: 04161 08/13/2014 Plan of Care Planned Activity Notes Codes Status Date Appointment: Fatmata Spann [facility]el: [phone] [facility] [place] [place] (30 min) Complex 03/26/2017 Appointment: Domin[facility]inos [facility] [place] ([place]) Moderate 03/26/2017 Patient Education: Patient Medication Summary Completed 03/26/2017 App[facility]ment: [phone] [place] ([place]) Moderate 02/19/2017 Patient Education: Patient Medication Summary Completed 02/19/2017 Patient Education: Hypertension Completed 02/19/2017 App[facility]ment: [phone] [place] ([place]) Moderate 02/12/2017 Appointment: [phone] [place] ([place]) Moderate 01/16/2017 Patient Education: Patient Medication Summary Completed 01/16/2017 App[facility]ment: [phone] [place] ([place]) Moderate 01/08/2017 Patient Education: Patient Medication Summary Completed 01/08/2017 Patient Education: Hypertension Completed 01/08/2017 App[facility]ment: [phone] [place] ([place]) Moderate 12/31/2016 App[facility]ment: Domin[phone] [place] ([place]) Moderate 12/18/2016 Appointment: Domin[facility] Recinos [facility] [phone] [facility] [place] ([place]) Moderate 11/21/2016 Patient Education: Patient Medication Summary Completed 11/21/2016 Patient Education: Hypertension Completed 11/21/2016 [facility]ment: [phone] [place] ([place]) Moderate 10/16/2016 Patient Education: Patient Medication Summary Completed 10/16/2016 Patient Education: Hypertension Completed 10/16/2016 Patient Education: Patient Medication Summary Completed 10/09/2016 Care Plan: Free T4 Pending 10/09/2016 Appointment: Maile Randolph [phone] [facility] [place] [phone] [place] (15 min) Moderate 10/08/2016 Patient Education: Patient Medication Summary Completed 10/08/2016 Appointment: Maile Randolph [facility]el: [phone] [facility] [phone] [place] (30 min) Complex 10/01/2016 Patient Education: Patient Medication Summary Completed 10/01/2016 Appointment: Maile Randolph WPtel: [facility] [phone] [place] (30 min) Complex 09/27/2016 Patient Education: Patient Medication Summary Completed 09/27/2016 App[facility]ment: [phone] [facility] (15 min) Moderate 07/19/2016 Patient Education: Patient Medication Summary Completed 07/19/2016 Appointment: Fatmata Spann WPtel: [phone] [facility] [place] [place] [place] MCR - Annual Wellness Visit 07/10/2016 Patient Education: Patient Medication Summary Completed 07/10/2016 Appointment: Dominique Recinos WPtel: [phone] [facility] [place] (15 min) Moderate 07/09/2016 Patient Education: Patient Medication Summary Completed 07/09/2016 Patient Education: Hypertension Completed 07/09/2016 App[facility]ment: [phone] [place] ([place]) Moderate 06/26/2016 Appointment: Dominique Recinos [facility]Ptel[facility] (15 min) Moderate 06/06/2016 Patient Education: Patient Medication Summary Completed 06/06/2016 Appointment: Domin[phone] [facility] (15 min) Moderate 04/30/2016 Appointment: Fatmata Spann WPtel: [facility] [place] [place] ([place] min) Complex 04/03/2016 Patient Education: Patient Medication Summary Completed 04/03/2016 Patient Education: Patient Medication Summary Completed 02/01/2016 Patient Education: Patient Medication Summary Completed 12/26/2015 Patient Education: Hypertension Completed 12/26/2015 Appointment: Dominique Recinos [facility]el[facility] [place] ([place] min) Moderate 12/19/2015 Appointment: Dominique Recinos WPtel: [phone] [facility] (15 min) Moderate 09/19/2015 Patient Education: Patient Medication Summary Completed 09/19/2015 Appointment: Dominique Recinos [facility]el[facility] (15 min) Moderate 07/19/2015 Patient Education: Patient Medication Summary Completed 07/19/2015 Referral: External, Ordering Provider Referral Completed 03/30/2015 Appointment: Dominique Recinos [facility]el[facility] (15 min) Moderate 03/22/2015 Patient Education: Patient Medication Summary Completed 03/22/2015 Care Plan: Referral Order SNOMED-CT : [id number] Ordered 03/22/2015 Patient Education: Patient Medication Summary Completed 02/15/2015 Patient Education: Hypertension Completed 02/15/2015 Appointment: Nurse Visit 12/10/2014 Patient Education: Patient Medication Summary Completed 12/10/2014 Patient Education: Patient Medication Summary Completed 11/15/2014 Patient Education: Hypertension Completed 11/15/2014 Appointment: Dominique Recinos WPtel[facility] [place] ([place] New Patient 08/13/2014 Patient Education: Patient Medication Summary Completed 08/13/2014 Patient Education: Hypertension Completed 08/13/2014 Referral: External, Ordering Provider Referral Appointment Requested Instructions No Instructions
--- OUTSIDE RECORDS SUMMARY | 2017-03-31 11:57 | XMS REPORT | Continuity of Care Document ---
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 10/23/2016 YUNIOR JOYNER MD Ot I10 ESSENTIAL (PRIMARY) HYPERTENSION 2016 YUNIOR JOYNER MD Ot E04.1 NONTOXIC SINGLE THYROID NODULE 10/29/2016 DYLLAN MILLERP Ot 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 11/06/2016 DYLLAN MILLERP Ot 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 11/13/2016 YUNIOR JOYNER MD Ot E04.1 NONTOXIC SINGLE THYROID NODULE 11/22/2016 YUNIOR JOYNER MD Ot E04.1 NONTOXIC SINGLE THYROID NODULE 12/01/2016 YUNIOR JOYNER MD Ot E10.9 TYPE 1 DIABETES MELLITUS WITHOUT COMPLIC 12/01/2016 YUNIOR JOYNER MD Ot I10 ESSENTIAL (PRIMARY) HYPERTENSION 01/13/2017 ATUL BERGMAN MD Ot 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 01/13/2017 ATUL BERGMAN MD Ot E11.9 TYPE 2 DIABETES MELLITUS WITHOUT COMPLIC 01/13/2017 ATUL BERGMAN MD Ot F32.9 MAJOR DEPRESSIVE DISORDER, SINGLE EPISOD 01/13/2017 ATUL BERGMAN MD Ot F41.9 ANXIETY DISORDER, UNSPECIFIED 01/13/2017 ATUL BERGMAN MD Ot I10 ESSENTIAL (PRIMARY) HYPERTENSION 01/13/2017 ATUL BERGMAN MD Ot I25.10 ATHSCL HEART DISEASE OF [place] CORONARY 01/13/2017 ATUL BERGMAN MD Ot R73.09 OTHER ABNORMAL GLUCOSE 01/13/2017 ATUL BERGMAN MD Ot Z79.4 ASSOCIATE CURATOR (CURRENT) USE OF INSULIN 01/13/2017 ATUL BERGMAN MD Ot Z79.82 RESIDENTIAL (CURRENT) USE OF ASPIRIN 01/21/2017 ATUL BERGMAN MD, Ot 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 01/21/2017 ATUL BERGMAN MD Ot E11.9 TYPE 2 DIABETES MELLITUS WITHOUT COMPLIC 01/21/2017 ATUL BERGMAN MD Ot F32.9 MAJOR DEPRESSIVE DISORDER, SINGLE EPISOD 01/21/2017 ATUL BERGMAN MD Ot F41.9 ANXIETY DISORDER, UNSPECIFIED 01/21/2017 ATUL BERGMAN MD Ot I10 ESSENTIAL (PRIMARY) HYPERTENSION 01/21/2017 ATUL BERGMAN MD Ot I25.10 ATHSCL HEART DISEASE OF [place] CORONARY 01/21/2017 ATUL BERGMAN MD Ot R73.09 OTHER ABNORMAL GLUCOSE 01/21/2017 ATUL BERGMAN MD Ot Z79.4 ASSOCIATE CURATOR (CURRENT) USE OF INSULIN 01/21/2017 ATUL BERGMAN MD Ot Z79.82 RESIDENTIAL (CURRENT) USE OF ASPIRIN Procedures There is no data. Results Test Result Range Complete blood count (CBC) with automated white blood cell (WBC) differential - 05/14/16 08:39 Blood leukocytes automated count (number/volume) 6.1 10*3/uL 4.3-11.0 Blood erythrocytes automated count (number/volume) 4.28 10*6/uL 4.35-5.85 Venous blood hemoglobin measurement (mass/volume) 13.0 g/dL 11.5-16.0 Blood hematocrit (volume fraction) 38 % 35-52 Automated erythrocyte mean corpuscular volume 89 [foz_us] 80-99 Automated erythrocyte mean corpuscular hemoglobin (mass per erythrocyte) 30 pg 25-34 Automated erythrocyte mean corpuscular hemoglobin concentration measurement ( mass/volume) 34 g/dL 32-36 Automated erythrocyte distribution width ratio 12.4 % 10.0-14.5 Automated blood platelet count (count/volume) 224 10*3/uL 130-400 Automated blood platelet mean volume measurement 9.3 [foz_us] 7.4-10.4 Automated blood neutrophils/100 leukocytes 77 % 42-75 Automated blood lymphocytes/100 leukocytes 15 % 12-44 Blood monocytes/100 leukocytes 7 % 0-12 Automated blood eosinophils/100 leukocytes 1 % 0-10 Automated blood basophils/100 leukocytes 0 % 0-10 Blood neutrophils automated count (number/volume) 4.7 10*3 1.8-7.8 Blood lymphocytes automated count (number/volume) 0.9 10*3 1.0-4.0 Blood monocytes automated count (number/volume) 0.4 10*3 0.0-1.0 Automated eosinophil count 0.1 10*3/uL 0.0-0.3 Automated blood basophil count (count/volume) 0.0 10*3/uL 0.0-0.1 Comprehensive metabolic panel - 05/14/16 08:39 Serum or plasma sodium measurement (moles/volume) 138 mmol/L 135-145 Serum or plasma potassium measurement (moles/volume) 4.5 mmol/L 3.6-5.0 Serum or plasma chloride measurement (moles/volume) 102 mmol/L 98-107 Carbon dioxide 27 mmol/L 21-32 Serum or plasma anion gap determination (moles/volume) 9 mmol/L 5-14 Serum or plasma urea nitrogen measurement (mass/volume) 16 mg/dL 7-18 Serum or plasma creatinine measurement (mass/volume) 0.78 mg/dL 0.60-1.30 Serum or plasma urea nitrogen/creatinine mass ratio 21 NRG Serum or plasma creatinine measurement with calculation of estimated glomerular filtration rate > NRG Serum or plasma glucose measurement (mass/volume) 227 mg/dL 70-105 Serum or plasma calcium measurement (mass/volume) 9.2 mg/dL 8.5-10.1 Serum or plasma total bilirubin measurement (mass/volume) 0.6 mg/dL 0.1-1.0 Serum or plasma alkaline phosphatase measurement (enzymatic activity/volume) 82 U/L 40-136 Serum or plasma aspartate aminotransferase measurement (enzymatic activity/ volume) 22 U/L 5-34 Serum or plasma alanine aminotransferase measurement (enzymatic activity/volume ) 18 U/L 0-55 Serum or plasma protein measurement (mass/volume) 6.5 g/dL 6.4-8.2 Serum or plasma albumin measurement (mass/volume) 4.1 g/dL 3.2-4.5 Lipid 1996 panel - 05/14/16 08:39 Serum or plasma triglyceride measurement (mass/volume) 83 mg/dL <150 Serum or plasma cholesterol measurement (mass/volume) 172 mg/dL < 200 Serum or plasma cholesterol in HDL measurement (mass/volume) 64 mg/ dL 40-60 Cholesterol in LDL [mass/volume] in serum or plasma by direct assay 92 mg/dL 1-129 Serum or plasma cholesterol in VLDL measurement (mass/volume) 17 mg/ dL 5-40 Hemoglobin A1c - 05/14/16 08:39 Hemoglobin A1c 6.9 % 4.5-6.2 THYROID STIMULATING HORMONE - 05/14/16 08:39 THYROID STIMULATING HORMONE 0.80 u[iU]/mL 0.35-4.94 Complete blood count (CBC) with automated white blood cell (WBC) differential - 06/18/16 03:11 Blood leukocytes automated count (number/volume) 9.5 10*3/uL 4.3-11.0 Blood erythrocytes automated count (number/volume) 4.52 10*6/uL 4.35-5.85 Venous blood hemoglobin measurement (mass/volume) 13.6 g/dL 11.5-16.0 Blood hematocrit (volume fraction) 40 % 35-52 Automated erythrocyte mean corpuscular volume 88 [foz_us] 80-99 Automated erythrocyte mean corpuscular hemoglobin (mass per erythrocyte) 30 pg 25-34 Automated erythrocyte mean corpuscular hemoglobin concentration measurement ( mass/volume) 34 g/dL 32-36 Automated erythrocyte distribution width ratio 12.3 % 10.0-14.5 Automated blood platelet count (count/volume) 218 10*3/uL 130-400 Automated blood platelet mean volume measurement 9.7 [foz_us] 7.4-10.4 Automated blood neutrophils/100 leukocytes 84 % 42-75 Automated blood lymphocytes/100 leukocytes 7 % 12-44 Blood monocytes/100 leukocytes 7 % 0-12 Automated blood eosinophils/100 leukocytes 1 % 0-10 Automated blood basophils/100 leukocytes 0 % 0-10 Blood neutrophils automated count (number/volume) 8.0 10*3 1.8-7.8 Blood lymphocytes automated count (number/volume) 0.7 10*3 1.0-4.0 Blood monocytes automated count (number/volume) 0.7 10*3 0.0-1.0 Automated eosinophil count 0.1 10*3/uL 0.0-0.3 Automated blood basophil count (count/volume) 0.0 10*3/uL 0.0-0.1 Blood manual differential performed detection - 06/18/16 03:11 Blood monocytes/100 leukocytes 4 % NRG Manual blood segmented neutrophils/100 leukocytes 89 % NRG Blood band neutrophils/100 leukocytes 0 % NRG Manual blood lymphocytes/100 leukocytes 5 % NRG Manual eosinophils/100 leukocytes in nose 2 % NRG Manual blood basophils/100 leukocytes 0 % NRG Blood erythrocyte morphology finding identification NORMAL [facility] Comprehensive metabolic panel - 06/18/16 03:11 Serum or plasma sodium measurement (moles/volume) 140 mmol/L 135-145 Serum or plasma potassium measurement (moles/volume) 4.2 mmol/L 3.6-5.0 Serum or plasma chloride measurement (moles/volume) 103 mmol/L 98-107 Carbon dioxide 25 mmol/L 21-32 Serum or plasma anion gap determination (moles/volume) 12 mmol/L 5-14 Serum or plasma urea nitrogen measurement (mass/volume) 21 mg/dL 7-18 Serum or plasma creatinine measurement (mass/volume) 0.84 mg/dL 0.60-1.30 Serum or plasma urea nitrogen/creatinine mass ratio 25 NRG Serum or plasma creatinine measurement with calculation of estimated glomerular filtration rate > NRG Serum or plasma glucose measurement (mass/volume) 87 mg/dL 70-105 Serum or plasma calcium measurement (mass/volume) 9.3 mg/dL 8.5-10.1 Serum or plasma total bilirubin measurement (mass/volume) 0.6 mg/dL 0.1-1.0 Serum or plasma alkaline phosphatase measurement (enzymatic activity/volume) 83 U/L 40-136 Serum or plasma aspartate aminotransferase measurement (enzymatic activity/ volume) 21 U/L 5-34 Serum or plasma alanine aminotransferase measurement (enzymatic activity/volume ) 15 U/L 0-55 Serum or plasma protein measurement (mass/volume) 6.9 g/dL 6.4-8.2 Serum or plasma albumin measurement (mass/volume) 4.4 g/dL 3.2-4.5 Capillary blood glucose measurement by glucometer (mass/volume) - 06/18/16 03: 11 Capillary blood glucose measurement by glucometer (mass/volume) 86 mg/dL 70-110 Complete urinalysis with reflex to culture - 06/18/16 03:20 Urine color determination YELLOW NRG Urine clarity determination CLEAR NRG Urine pH measurement by test strip 7 5-9 Specific gravity of urine by test strip 1.005 1.016- 1.022 Urine protein assay by test strip, semi-quantitative 1+ NEGATIVE Urine glucose detection by automated test strip NEGATIVE NEGATIVE Erythrocytes detection in urine sediment by light microscopy NEGATIVE NEGATIVE Urine ketones detection by automated test strip NEGATIVE NEGATIVE Urine nitrite detection by test strip NEGATIVE NEGATIVE Urine total bilirubin detection by test strip NEGATIVE NEGATIVE Urine urobilinogen measurement by automated test strip (mass/volume) NORMAL NORMAL Urine leukocyte esterase detection by dipstick 3+ NEGATIVE Automated urine sediment erythrocyte count by microscopy (number/high power field) NONE NRG Automated urine sediment leukocyte count by microscopy (number/high power field ) [HPF] NRG Bacteria detection in urine sediment by light microscopy TRACE NRG Squamous epithelial cells detection in urine sediment by light microscopy RARE NRG Crystals detection in urine sediment by light microscopy NONE NRG Casts detection in urine sediment by light microscopy NONE NRG Mucus detection in urine sediment by light microscopy SMALL NRG Complete urinalysis with reflex to culture YES NRG Bacterial urine culture - 06/18/16 03:20 Bacterial urine culture [id number] NRG COLONY COUNT <10,000 NRG FTX;REPORTABLE SENSITIVITY REPORTED 06/19/16 16:33 NRG FREE TEXT ENTRY 2 PLUS, NRG FREE TEXT ENTRY 3 MIXED GRAM POSITIVES <10,000/ML NRG Bacterial susceptibility panel - 06/18/16 03:20 Gentamicin susceptibility test by minimum inhibitory concentration < = NRG Trimethoprim/sulfamethoxazole susceptibility test by minimum inhibitoryconcentration <= NRG Ampicillin susceptibility test by minimum inhibitory concentration 8 NRG Tobramycin susceptibility test by minimum inhibitory concentration < = NRG Cefazolin susceptibility test by minimum inhibitory concentration < = NRG Ceftriaxone susceptibility test by minimum inhibitory concentration <= NRG Ampicillin/sulbactam susceptibility test by minimum inhibitory concentration 4 NRG Piperacillin/tazobactam susceptibility test by minimum inhibitory concentration <= NRG Ciprofloxacin susceptibility test by minimum inhibitory concentration <= NRG Meropenem susceptibility test by minimum inhibitory concentration < = NRG Nitrofurantoin susceptibility test by minimum inhibitory concentration <= NRG Aztreonam susceptibility test by minimum inhibitory concentration < = NRG Extended spectrum beta lactamase (ESBL) producing bacteria susceptibility test by minimum inhibitory concentration - NR Capillary blood glucose measurement by glucometer (mass/volume) - 06/18/16 04: 39 Capillary blood glucose measurement by glucometer (mass/volume) 110 mg/dL 70-110 Complete blood count (CBC) with automated white blood cell (WBC) differential - 01/13/17 21:00 Blood leukocytes automated count (number/volume) 4.3 10*3/uL 4.3-11.0 Blood erythrocytes automated count (number/volume) 3.69 10*6/uL 4.35-5.85 Venous blood hemoglobin measurement (mass/volume) 11.4 g/dL 11.5-16.0 Blood hematocrit (volume fraction) 34 % 35-52 Automated erythrocyte mean corpuscular volume 91 [foz_us] 80-99 Automated erythrocyte mean corpuscular hemoglobin (mass per erythrocyte) 31 pg 25-34 Automated erythrocyte mean corpuscular hemoglobin concentration measurement ( mass/volume) 34 g/dL 32-36 Automated erythrocyte distribution width ratio 12.0 % 10.0-14.5 Automated blood platelet count (count/volume) 190 10*3/uL 130-400 Automated blood platelet mean volume measurement 9.5 [foz_us] 7.4-10.4 Automated blood neutrophils/100 leukocytes 56 % 42-75 Automated blood lymphocytes/100 leukocytes 29 % 12-44 Blood monocytes/100 leukocytes 13 % 0-12 Automated blood eosinophils/100 leukocytes 2 % 0-10 Automated blood basophils/100 leukocytes 0 % 0-10 Blood neutrophils automated count (number/volume) 2.4 10*3 1.8-7.8 Blood lymphocytes automated count (number/volume) 1.2 10*3 1.0-4.0 Blood monocytes automated count (number/volume) 0.6 10*3 0.0-1.0 Automated eosinophil count 0.1 10*3/uL 0.0-0.3 Automated blood basophil count (count/volume) 0.0 10*3/uL 0.0-0.1 Comprehensive metabolic panel - 01/13/17 21:00 Serum or plasma sodium measurement (moles/volume) 138 mmol/L 135-145 Serum or plasma potassium measurement (moles/volume) 3.5 mmol/L 3.6-5.0 Serum or plasma chloride measurement (moles/volume) 102 mmol/L 98-107 Carbon dioxide 26 mmol/L 21-32 Serum or plasma anion gap determination (moles/volume) 10 mmol/L 5-14 Serum or plasma urea nitrogen measurement (mass/volume) 27 mg/dL 7-18 Serum or plasma creatinine measurement (mass/volume) 0.84 mg/dL 0.60-1.30 Serum or plasma urea nitrogen/creatinine mass ratio 32 NRG Serum or plasma creatinine measurement with calculation of estimated glomerular filtration rate > NRG Serum or plasma glucose measurement (mass/volume) 184 mg/dL 70-105 Serum or plasma calcium measurement (mass/volume) 8.9 mg/dL 8.5-10.1 Serum or plasma total bilirubin measurement (mass/volume) 0.3 mg/dL 0.1-1.0 Serum or plasma alkaline phosphatase measurement (enzymatic activity/volume) 75 U/L 40-136 Serum or plasma aspartate aminotransferase measurement (enzymatic activity/ volume) 25 U/L 5-34 Serum or plasma alanine aminotransferase measurement (enzymatic activity/volume ) 19 U/L 0-55 Serum or plasma protein measurement (mass/volume) 6.0 g/dL 6.4-8.2 Serum or plasma albumin measurement (mass/volume) 3.7 g/dL 3.2-4.5 Capillary blood glucose measurement by glucometer (mass/volume) - 01/13/17 21: 47 Capillary blood glucose measurement by glucometer (mass/volume) 132 mg/dL 70-110 Complete urinalysis with reflex to culture - 01/13/17 22:50 Urine color determination YELLOW NRG Urine clarity determination CLEAR NRG Urine pH measurement by test strip 6.5 5-9 Specific gravity of urine by test strip 1.010 1.016- 1.022 Urine protein assay by test strip, semi-quantitative 1+ NEGATIVE Urine glucose detection by automated test strip 2+ NEGATIVE Erythrocytes detection in urine sediment by light microscopy NEGATIVE NEGATIVE Urine ketones detection by automated test strip NEGATIVE NEGATIVE Urine nitrite detection by test strip NEGATIVE NEGATIVE Urine total bilirubin detection by test strip NEGATIVE NEGATIVE Urine urobilinogen measurement by automated test strip (mass/volume) 1 mg/dL NORMAL Urine leukocyte esterase detection by dipstick 1+ NEGATIVE Automated urine sediment erythrocyte count by microscopy (number/high power field) NONE NRG Automated urine sediment leukocyte count by microscopy (number/high power field ) [HPF] NRG Bacteria detection in urine sediment by light microscopy NEGATIVE NRG Crystals detection in urine sediment by light microscopy NONE NRG Casts detection in urine sediment by light microscopy NONE NRG Mucus detection in urine sediment by light microscopy NEGATIVE NRG Complete urinalysis with reflex to culture NO NRG Capillary blood glucose measurement by glucometer (mass/volume) - 01/13/17 23: 06 Capillary blood glucose measurement by glucometer (mass/volume) 183 mg/dL 70-110 Encounters ACCT No. Visit Date/Time Discharge Status Pt. Type Provider Facility Loc./Unit Complaint [id number] 01/13/2017 20:57:00 01/13/2017 23:18:00 DIS Emergency ATUL BERGMAN MD [facility] ER BS [id number] 12/02/2016 10:00:00 12/02/2016 23:59:59 CLS Preadmit YUNIOR JOYNER MD [facility] DSME TYPE 1 DIABETES [id number] 10/22/2016 10:26:00 12/01/2016 00:46:00 DIS Outpatient YUNIOR JOYNER MD [facility] DSME TYPE 1 DIABETES [id number] 10/22/2016 10:27:00 10/22/2016 23:59:59 CLS Outpatient YUNIOR JOYNER MD [facility] RAD THYROID ENLARGEMENT [id number] 10/01/2016 14:43:00 10/01/2016 23:59:59 CLS Outpatient DYLLAN MILLER [facility] RAD COUGH [id number] 06/18/2016 03:09:00 06/18/2016 04:55:00 DIS Outpatient YOUSIF BLANCO MD [facility] ER BS [id number] 05/14/2016 08:32:00 05/14/2016 23:59:59 CLS Outpatient YUNIOR JOYNER MD [facility] LAB HTN,HYPOTHYROID [id number] 04/05/2016 09:51:00 04/05/2016 23:59:59 CLS Outpatient DORIAN TORRES MD [facility] RAD MULTINODULAR GOITER [id number] 02/08/2016 11:48:00 02/08/2016 23:59:59 CLS Outpatient ANJU FRANCIS APRN [facility] RAD SCREENING [id number] 12/28/2015 08:00:00 12/28/2015 23:59:59 CLS Outpatient TOM MARQUES [facility] LAB CAD,HYPERLIPIDEMIA, CAROTID ARTERIAL DISEASE [id number] 11/15/2015 08:07:00 11/15/2015 23:59:59 CLS Outpatient TOM MARQUES [facility] CARD CAD,HTN,HLP,MALAISE [id number] 08/15/2015 11:00:00 08/15/2015 23:59:59 CLS Outpatient DORIAN TORRES MD [facility] RAD MULTINODULAR GOITER [id number] 05/30/2015 13:05:00 05/30/2015 14:29:00 DIS Outpatient YUNIOR JOYNER MD [facility] REHAB BACK PAIN [id number] 04/04/2015 07:59:00 04/04/2015 23:59:59 CLS Outpatient YECENIA MCKEON FACCCHEN FACP CCDS [facility] LAB CAD,HLP [id number] 11/30/2014 10:53:00 11/30/2014 23:59:59 CLS Outpatient YUNIOR JOYNER MD [facility] RAD SCREENING [id number] 11/15/2014 11:32:00 11/15/2014 23:59:59 CLS Outpatient YUNIOR JOYNER MD [facility] RAD HAND PAIN,BACK PAIN, SCREENING [id number] 09/15/2014 08:41:00 09/15/2014 23:59:59 CLS Outpatient TOM MARQUES [facility] LAB CAD,HLP [id number] 06/21/2014 09:59:00 06/21/2014 23:59:59 CLS Outpatient DORIAN TORRES MD [facility] RAD MULTINODULAR GOITER [id number] 03/03/2014 09:07:00 03/03/2014 23:59:59 CLS Outpatient OTM MARQUES [facility] LAB HYPERLIPADEMIA [id number] 10/26/2013 14:53:00 10/26/2013 23:59:59 CLS Outpatient SIENA JOVEL MD [facility] RAD ROUTINE [id number] 10/15/2013 07:43:00 10/15/2013 23:59:59 CLS Outpatient YECENIA MCKEON FACC, CHEN GRAHAM CCDS [facility] CARD HTN,HLP,CAD [id number] 09/28/2013 08:48:00 09/28/2013 23:59:59 CLS Outpatient DORIAN TORRES MD [facility] RAD THYROID NODULE [id number] 09/02/2013 08:19:00 09/02/2013 23:59:59 CLS Outpatient SIENA JOVEL MD [facility] LAB UNSPECIFIED HYPERLIPIEDIMA,DIABETES MELLITUS [id number] 09/02/2013 08:12:00 09/02/2013 23:59:59 CLS Outpatient CHEN KEENE MD, FACC, FACP CCDS [facility] LAB RETINAL HEMORRHAGE,PATENT FORAMEN OVALE,PAROXYSMAL [id number] 01/13/2013 09:37:00 01/13/2013 23:59:59 CLS Outpatient DORIAN TORRES MD [facility] LAB FATIGUE,MONITORING GATE [id number] 01/08/2013 09:38:00 01/08/2013 23:59:59 CLS Outpatient CANDIE FRANCIS APRN [facility] RAD CALCIFIED RIGHT THYROID LOBE 5 MO RECHECK [id number] 11/06/2012 07:13:00 11/06/2012 23:59:59 CLS Outpatient YECENIA MCKEON FACCCHEN FACP CCDS [facility] RAD HX OF MOD CAD [id number] 10/22/2012 08:10:00 10/22/2012 23:59:59 CLS Outpatient TOM MARQUES [facility] LAB CAD,HYPERLIPIDEMIA,DM ,STATIN [place] [id number] 10/13/2012 13:20:00 10/13/2012 23:59:59 CLS Outpatient SIENA JOVEL MD [facility] RAD SIX MONTH FOLLOW-UP [id number] 08/21/2012 10:11:00 08/21/2012 23:59:59 CLS Outpatient DORIAN TORRES MD [facility] RAD MULTI-NODULAR GOITER [id number] 07/29/2012 10:50:00 07/29/2012 23:59:59 CLS Outpatient DORIAN TORRES MD [facility] RAD RT LOBE THYROID NODULE [id number] 03/03/2014 09:06:00 Document Registration [id number] 06/04/2012 23:40:00 Document Registration [id number] 04/24/2012 13:04:00 Document Registration [id number] 04/08/2012 09:46:00 Document Registration [id number] 03/26/2012 07:47:00 Document Registration [id number] 12/21/2011 10:26:00 Document Registration [id number] 09/24/2011 06:31:00 Document Registration [id number] 09/19/2011 07:23:00 Document Registration [id number] 04/30/2011 13:00:00 Document Registration [id number] 03/26/2011 09:06:00 Document Registration [id number] 02/28/2011 08:42:00 Document Registration [id number] 02/22/2011 13:30:00 Document Registration [id number] 01/01/2011 06:26:00 Document Registration [id number] 08/10/2010 07:35:00 Document Registration [id number] 03/01/2010 14:55:00 Document Registration [id number] 02/22/2010 08:13:00 Document Registration [id number] 08/11/2009 07:46:00 Document Registration [id number] 02/03/2009 07:38:00 Document Registration [id number] 01/13/2009 13:37:00 Document Registration [id number] 12/06/2008 11:16:00 Document Registration
[2017-03-31 12:09] LABS: BILIRUBIN,URINE NEGATIVE (NEGATIVE); CLARITY,URINE CLEAR; COLOR,URINE YELLOW; GLUCOSE, URINE (UA) 4+ (NEGATIVE); KETONES,URINE 2+ (NEGATIVE); LEUKOCYTE ESTERASE ,URINE 1+ (NEGATIVE); NITRITE,URINE NEGATIVE (NEGATIVE); PH,URINE 5 (5-9); PROTEIN,URINE 1+ (NEGATIVE); UROBILINOGEN,URINE NORMAL (NORMAL)
[2017-03-31 12:32] LABS: BACTERIA,URINE FEW /HPF
--- NOTE | 2017-03-31 12:32 | Diagnostic Imaging Report ---
PROCEDURE: CT lumbar spine without contrast. TECHNIQUE: Multiple contiguous axial images were obtained through the lumbar spine without the use of intravenous contrast. Sagittal and coronal reformations were then performed. INDICATION: Low back pain. COMPARISON: None. FINDINGS: Left convexity lumbar scoliosis is present. There is no subluxation or acute fracture. Laminectomy and fusion has been performed at L4-L5. Orthopedic hardware is well seated. Severe degenerative disc disease and facet joint arthropathy is seen throughout. There is no paraspinous mass. SI joints are symmetric. IMPRESSION: 1. No traumatic malalignment or fracture 2. Stable appearing laminectomy and fusion L4-L5. 3. Severe diffuse degenerative disc disease and facet joint arthropathy. Dictated by: Dictated on workstation # [id number]
[2017-03-31 13:03] LABS: BASOPHILS % (AUTO) 0 % (0-10); EOSINOPHILS # (AUTO) 0.1 10^3/uL (0.0-0.3); EOSINOPHILS % (AUTO) 1 % (0-10); HEMATOCRIT 34 % (35-52); HEMOGLOBIN 11.9 G/DL (11.5-16.0); LYMPHOCYTES # (AUTO) 0.5 X 10^3 (1.0-4.0); LYMPHOCYTES % (AUTO) 10 % (12-44); MEAN CORPUSCULAR HEMOGLOBIN 31 PG (25-34); MEAN CORPUSCULAR HGB CONC 35 G/DL (32-36); MEAN CORPUSCULAR VOLUME 89 FL (80-99); MEAN PLATELET VOLUME 9.7 FL (7.4-10.4); MONOCYTES # (AUTO) 0.5 X 10^3 (0.0-1.0); MONOCYTES % (AUTO) 10 % (0-12); NEUTROPHILS # (AUTO) 3.7 X 10^3 (1.8-7.8); NEUTROPHILS % (AUTO) 79 % (42-75); PLATELET COUNT 192 10^3/uL (130-400); RED BLOOD COUNT 3.85 10^6/uL (4.35-5.85); RED CELL DISTRIBUTION WIDTH 12.2 % (10.0-14.5); WHITE BLOOD COUNT 4.7 10^3/uL (4.3-11.0)
[2017-03-31 13:19] LABS: ALANINE AMINOTRANSFERASE 29 U/L (0-55); ALBUMIN 3.8 GM/DL (3.2-4.5); ALKALINE PHOSPHATASE 86 U/L (40-136); BILIRUBIN,TOTAL 0.6 MG/DL (0.1-1.0); BUN/CREATININE RATIO 29; CALCIUM 9.4 MG/DL (8.5-10.1); CARBON DIOXIDE 23 MMOL/L (21-32); CHLORIDE 101 MMOL/L (98-107); CREATININE SERUM 0.79 MG/DL (0.60-1.30); GFR ESTIMATED > 60; GLUCOSE 263 MG/DL (70-105); POTASSIUM 4.1 MMOL/L (3.6-5.0); SODIUM 138 MMOL/L (135-145); TOTAL PROTEIN 5.9 GM/DL (6.4-8.2)
[2017-03-31] MEDS ORDERED: fentaNYL INJECTION 100 MCG/2 ML AMP IVP ONE (13:30)
--- OUTSIDE RECORDS SUMMARY | 2017-03-31 13:36 | XMS REPORT | Continuity of Care Document ---
Author Author [facility] Organization [facility] Address Unknown Phone Unavailable Allergies Active Description [...] NOS 01/01/2011 Ot 414.01 CORONARY ATHEROSCLEROSIS OF [place] CORON 01/01/2011 Ot 562.10 DIVERTICULOSIS COLON (W/O [...] NOS 06/05/2012 Ot 414.01 CORONARY ATHEROSCLEROSIS OF [place] CORON 06/05/2012 Ot 780.2 SYNCOPE AND COLLAPSE [...] TOM MARQUES Ot 250.00 03/03/2014 [place] [employer] GOODS MACHINE OPERATOR Ot 272.4 03/03/2014 [place] [employer] MACHINE OPERATOR Ot 414.00 03/03/2014 [place] L PAPER GOODS MACHINE OPERATOR Ot V58.69 03/03/2014 YECENIA MCKEON FACC, ALI [...] JOVEL MD Ot V76.12 04/03/2014 TOM MARQUES PAPER GOODS MACHINE OPERATOR Ot 272.4 07/23/2014 MELISSA MCKEON, DORIAN P Ot 241.1 08/18/2014 MELISSA MCKEON, DORIAN Cortes Ot 241.1 09/20/2014 TOM MARQUES [employer]APER GOODS MACHINE OPERATOR Ot 272.4 09/20/2014 TOM MARQUES PAPER GOODS MACHINE OPERATOR Ot 414.00 10/07/2014 TOM MARQUES PAPER GOODS MACHINE OPERATOR Ot 272.4 10/07/2014 TOM MARQUES [employer]ER GOODS MACHINE OPERATOR Ot 414.00 11/18/2014 AR MCKEON, YUNIOR A [...] SIENA Florez Ot V67.9 03/22/2015 TOM MARQUES [employer]APER GOODS MACHINE OPERATOR Ot 250.00 03/22/2015 TOM MARQUES P[employer]ER GOODS MACHINE OPERATOR Ot 272.4 03/22/2015 TOM MARQUES PAPER GOODS MACHINE OPERATOR Ot 414.00 03/22/2015 TOM MARQUES P[employer]ER GOODS MACHINE OPERATOR Ot V58.69 03/22/2015 YECENIA MCKEON FACC, ALI [...] SIENA Florez Ot V76.12 03/22/2015 TOM MARQUES [employer]ER [employer] MACHINE OPERATOR Ot 272.4 03/22/2015 MELISSA MCKEON, DORIAN Cortes Ot 241.1 03/22/2015 [place] F[place] PAPER GOODS MACHINE OPERATOR Ot 272.4 03/22/2015 TOM MARQUES [employer]ER [employer] MACHINE OPERATOR Ot 414.00 03/22/2015 AR MCKEON, YUNIOR Acosta [...] M Ot V67.9 03/30/2015 JERALD TOM L PAPER GOODS MACHINE OPERATOR Ot 250.00 03/30/2015 TOM MARQUES L PAPER GOODS MACHINE OPERATOR Ot 272.4 03/30/2015 BAIJUAN DAVID TOM L PAPER GOODS MACHINE OPERATOR Ot 414.00 03/30/2015 JERALD TOM L PAPER GOODS MACHINE OPERATOR Ot V58.69 03/30/2015 YECENIA MCKEON FACC, ALI [...] SIENA Florez Ot V76.12 03/30/2015 TOM MARQUES P[employer]ER GOODS MACHINE OPERATOR Ot 272.4 03/30/2015 DORIAN TORRES MD Ot 241.1 03/30/2015 TOM MARQUES PAPER GOODS MACHINE OPERATOR Ot 272.4 03/30/2015 TOM MARQUES P[employer]ER GOODS MACHINE OPERATOR Ot 414.00 03/30/2015 AR MCKEON, YUNIOR Acosta [...] E04.2 NONTOXIC MULTINODULAR GOITER 11/16/2015 TOM MARQUES [employer]ER GOODS MACHINE OPERATOR Ot E78.4 OTHER HYPERLIPIDEMIA 11/16/2015 TOM MARQUES [employer]ER GOODS MACHINE OPERATOR Ot I10 ESSENTIAL (PRIMARY) HYPERTENSION 11/16/2015 BAIMA, TOM L PAPER GOODS MACHINE OPERATOR Ot I25.10 ATHSCL HEART DISEASE OF [place] CORONARY 11/16/2015 BAIMA, TOM L PAPER GOODS MACHINE OPERATOR Ot I47.1 SUPRAVENTRICULAR TACHYCARDIA 11/16/2015 BAIMA, TOM L PAPER GOODS MACHINE OPERATOR Ot R53.81 OTHER MALAISE 12/07/2015 BAIMA, TOM L PAPER GOODS MACHINE OPERATOR Ot E78.4 OTHER HYPERLIPIDEMIA 12/07/2015 BAIMA, TOM L PAPER GOODS MACHINE OPERATOR Ot I10 ESSENTIAL (PRIMARY) HYPERTENSION 12/07/2015 BAIMA, TOM L PAPER GOODS MACHINE OPERATOR Ot I25.10 ATHSCL HEART DISEASE OF [place] CORONARY 12/07/2015 BAIMA, TOM L PAPER GOODS MACHINE OPERATOR Ot I47.1 SUPRAVENTRICULAR TACHYCARDIA 12/07/2015 BAIMA, TOM L PAPER GOODS MACHINE OPERATOR Ot R53.81 OTHER MALAISE 12/14/2015 BAIMA, TOM L PAPER GOODS MACHINE OPERATOR Ot E78.4 OTHER HYPERLIPIDEMIA 12/14/2015 BAIMA, TOM L PAPER GOODS MACHINE OPERATOR Ot I10 ESSENTIAL (PRIMARY) HYPERTENSION 12/14/2015 BAIMA, TOM L PAPER GOODS MACHINE OPERATOR Ot I25.10 ATHSCL HEART DISEASE OF [place] CORONARY 12/14/2015 BAIMA, TOM L PAPER GOODS MACHINE OPERATOR Ot I47.1 SUPRAVENTRICULAR TACHYCARDIA 12/14/2015 BAIMA, TOM L PAPER GOODS MACHINE OPERATOR Ot R53.81 OTHER MALAISE 12/28/2015 Ot 272.4 HYPERLIPIDEMIA NEC/NOS 12/28/2015 Ot 414.01 CORONARY ATHEROSCLEROSIS OF [place] CORON 12/28/2015 Ot 433.10 CAROTID ARTERY OCCLUSION [...] V67.9 FOLLOW-UP EXAM NOS 12/28/2015 TOM MARQUES [employer]ER GOODS MACHINE OPERATOR Ot 250.00 DIAB CASSIA WO COMPL, TYPE II OR UNSPEC TY 12/28/2015 TOM MARQUES PAPER GOODS MACHINE OPERATOR Ot 272.4 HYPERLIPIDEMIA NEC/NOS 12/28/2015 TOM MARQUES P[employer]ER GOODS MACHINE OPERATOR Ot 414.00 CORON ATHEROSCLER NOS TYPE VESSEL, NATIV 12/28/2015 TOM MARQUES [employer]ER [employer] MACHINE OPERATOR Ot V58.69 OTH MED,LT,CURRENT USE 12/28/2015 YECENIA [...] MAMMO-MALIGN NEOPLASM OF TERRA 12/28/2015 TOM MARQUES [employer]APER [employer] MACHINE OPERATOR Ot 272.4 HYPERLIPIDEMIA NEC/NOS 12/28/2015 DORIAN TORRES MD Ot 241.1 NONTOX MULTINODUL GOITER 12/28/2015 TOM MARQUES P[employer]ER [employer] MACHINE OPERATOR Ot 272.4 HYPERLIPIDEMIA NEC/NOS 12/28/2015 TOM MARQUES PAPER GOODS MACHINE OPERATOR Ot 414.00 CORON ATHEROSCLER NOS TYPE VESSEL, [...] CCDS Ot I25.10 ATHSCL HEART DISEASE OF [place] CORONARY 12/28/2015 MELISSA MCKEON, DORIAN Cortes Ot E04.2 NONTOXIC MULTINODULAR GOITER 12/28/2015 BAIMA, TOM L PAPER GOODS MACHINE OPERATOR Ot E78.4 OTHER HYPERLIPIDEMIA 12/28/2015 BAIMA, TOM L PAPER GOODS MACHINE OPERATOR Ot I10 ESSENTIAL (PRIMARY) HYPERTENSION 12/28/2015 BAIMA, TOM L PAPER GOODS MACHINE OPERATOR Ot I25.10 ATHSCL HEART DISEASE OF [place] CORONARY 12/28/2015 BAIMA, TOM L PAPER GOODS MACHINE OPERATOR Ot I47.1 SUPRAVENTRICULAR TACHYCARDIA 12/28/2015 BAIMA, TOM L PAPER GOODS MACHINE OPERATOR Ot R53.81 OTHER MALAISE 12/29/2015 BAIMA, TOM L PAPER GOODS MACHINE OPERATOR Ot E78.4 OTHER HYPERLIPIDEMIA 12/29/2015 BAIMA, TOM L PAPER GOODS MACHINE OPERATOR Ot I25.10 ATHSCL HEART DISEASE OF [place] CORONARY 12/29/2015 BAIMA, TOM L PAPER GOODS MACHINE OPERATOR Ot 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 01/17/2016 BAIMA, TOM L PAPER GOODS MACHINE OPERATOR Ot E78.4 OTHER HYPERLIPIDEMIA 01/17/2016 BAIMA, TOM L PAPER GOODS MACHINE OPERATOR Ot I25.10 ATHSCL HEART DISEASE OF [place] CORONARY 01/17/2016 BAIMA, TOM L PAPER GOODS MACHINE OPERATOR Ot I65.23 OCCLUSION AND STENOSIS OF BILATERAL [...] V67.9 FOLLOW-UP EXAM NOS 02/08/2016 TOM MARQUES PAPER GOODS MACHINE OPERATOR Ot 250.00 DIAB CASSIA WO COMPL, TYPE II OR UNSPEC TY 02/08/2016 TOM MARQUES PAPER GOODS MACHINE OPERATOR Ot 272.4 HYPERLIPIDEMIA NEC/NOS 02/08/2016 TOM MARQUES PAPER GOODS MACHINE OPERATOR Ot 414.00 CORON ATHEROSCLER NOS TYPE VESSEL, NATIV 02/08/2016 TOM MARQUES P[employer]ER [employer] MACHINE OPERATOR Ot V58.69 OTH MED,LT,CURRENT USE 02/08/2016 YECENIA [...] MAMMO-MALIGN NEOPLASM OF TERRA 02/08/2016 TOM MARQUES PAPER GOODS MACHINE OPERATOR Ot 272.4 HYPERLIPIDEMIA NEC/NOS 02/08/2016 MELISSA MCKEON, DORIAN Cortes Ot 241.1 NONTOX MULTINODUL GOITER 02/08/2016 ELVISJUAN CARLOS FALLHER L PAPER GOODS MACHINE OPERATOR Ot 272.4 HYPERLIPIDEMIA NEC/NOS 02/08/2016 JERALD TOM L PAPER GOODS MACHINE OPERATOR Ot 414.00 CORON ATHEROSCLER NOS TYPE VESSEL, [...] CCDS Ot I25.10 ATHSCL HEART DISEASE OF [place] CORONARY 02/08/2016 MELISSA MCKEON, DORIAN Cortes Ot E04.2 NONTOXIC MULTINODULAR GOITER 02/08/2016 [place] L PAPER GOODS MACHINE OPERATOR Ot E78.4 OTHER HYPERLIPIDEMIA 02/08/2016 ELVISJUAN DAVID, TOM L PAPER GOODS MACHINE OPERATOR Ot I10 ESSENTIAL (PRIMARY) HYPERTENSION 02/08/2016 ELVISMA TOM L PAPER GOODS MACHINE OPERATOR Ot I25.10 ATHSCL HEART DISEASE OF [place] CORONARY 02/08/2016 ELVISJUAN DAVID TOM L PAPER GOODS MACHINE OPERATOR Ot I47.1 SUPRAVENTRICULAR TACHYCARDIA 02/08/2016 JERALD TOM L PAPER GOODS MACHINE OPERATOR Ot R53.81 OTHER MALAISE 02/08/2016 ELVISMA, TOM L PAPER GOODS MACHINE OPERATOR Ot E78.4 OTHER HYPERLIPIDEMIA 02/08/2016 BAIMA, TOM L PAPER GOODS MACHINE OPERATOR Ot I25.10 ATHSCL HEART DISEASE OF [place] CORONARY 02/08/2016 JERALD TOM L PAPER GOODS MACHINE OPERATOR Ot 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 02/08/2016 ANJU FRANCIS APRN Ot Z12.31 ENCNTR SCREEN MAMMOGRAM FOR MALIGNANT NE 02/09/2016 ANJU FRANCIS APRN Ot Z12.31 ENCNTR SCREEN MAMMOGRAM FOR MALIGNANT NE 02/09/2016 TITO, ANJU M APPRENTICE PAINTER BRUSH Ot Z12.31 ENCNTR SCREEN MAMMOGRAM FOR MALIGNANT NE 03/01/2016 ANJU FRANCIS APPRENTICE PAINTER BRUSH Ot Z12.31 ENCNTR SCREEN MAMMOGRAM FOR MALIGNANT [...] V67.9 FOLLOW-UP EXAM NOS 05/14/2016 TOM MARQUES PAPER GOODS MACHINE OPERATOR Ot 250.00 DIAB CASSIA WO COMPL, TYPE II OR UNSPEC TY 05/14/2016 TOM MARQUES L PAPER GOODS MACHINE OPERATOR Ot 272.4 HYPERLIPIDEMIA NEC/NOS 05/14/2016 TOM MARQUES PAPER GOODS MACHINE OPERATOR Ot 414.00 CORON ATHEROSCLER NOS TYPE VESSEL, NATIV 05/14/2016 TOM MARQUES PAPER GOODS MACHINE OPERATOR Ot V58.69 OT MED,LT,CURRENT USE 05/14/2016 YECENIA [...] MAMMO-MALIGN NEOPLASM OF TERRA 05/14/2016 TOM MARQUES PAPER GOODS MACHINE OPERATOR Ot 272.4 HYPERLIPIDEMIA NEC/NOS 05/14/2016 DORIAN TORRES MD Ot 241.1 NONTOX MULTINODUL GOITER 05/14/2016 TOM MARQUES PAPER GOODS MACHINE OPERATOR Ot 272.4 HYPERLIPIDEMIA NEC/NOS 05/14/2016 TOM MARQUES PAPER GOODS MACHINE OPERATOR Ot 414.00 CORON ATHEROSCLER NOS TYPE VESSEL, NATIV 05/14/2016 AR MCKEON, YUNIOR Acosta Ot 719.45 JOINT PAIN-PELVIS 05/14/2016 YUNIOR JOYNER MD Ot 724.2 LUMBAGO 05/14/2016 YUNIOR JOYNER MD Ot 729.5 PAIN IN LIMB 05/14/2016 YUNIOR JOYNER MD Ot V15.88 HISTORY OF FALL 05/14/2016 YUNIOR JOYNER MD Ot V76.12 OTH SCREEN MAMMO-MALIGN NEOPLASM OF TERRA 05/14/2016 YECENIA MCKEON [facility], ALI FACP CCDS Ot E78.5 HYPERLIPIDEMIA, UNSPECIFIED 05/14/2016 YECENIA MCKEON FACC, ALI FACP CCDS Ot I25.10 ATHSCL HEART DISEASE OF [place] CORONARY 05/14/2016 DORIAN TORRES MD Ot E04.2 NONTOXIC MULTINODULAR GOITER 05/14/2016 TOM MARQUES PAPER GOODS MACHINE OPERATOR Ot E78.4 OTHER HYPERLIPIDEMIA 05/14/2016 TOM MARQUES PAPER GOODS MACHINE OPERATOR Ot I10 ESSENTIAL (PRIMARY) HYPERTENSION 05/14/2016 TOM MARQUES PAPER GOODS MACHINE OPERATOR Ot I25.10 ATHSCL HEART DISEASE OF [place] CORONARY 05/14/2016 TOM MARQUES PAPER GOODS MACHINE OPERATOR Ot I47.1 SUPRAVENTRICULAR TACHYCARDIA 05/14/2016 TOM MARQUES PAPER GOODS MACHINE OPERATOR Ot R53.81 OTHER MALAISE 05/14/2016 TOM MARQUES PAPER GOODS MACHINE OPERATOR Ot E78.4 OTHER HYPERLIPIDEMIA 05/14/2016 TOM MARQUES PAPER GOODS MACHINE OPERATOR Ot I25.10 ATHSCL HEART DISEASE OF [place] CORONARY 05/14/2016 TOM MARQUES PAPER GOODS MACHINE OPERATOR Ot I65.23 OCCLUSION AND STENOSIS OF BILATERAL [...] AND 06/18/2016 YOUSIF BLANCO MD Ot Y92.009 [facility] [address] [facility] (PRIVATE 06/18/2016 YOUSIF BLANCO MD Ot Y99.8 OTHER EXTERNAL CAUSE STATUS 06/18/2016 YOUSIF BLANCO MD Ot Z79.4 SENIOR CARE (CURRENT) USE OF INSULIN 06/18/2016 YOUSIF BLANCO MD Ot Z79.82 CRINK[place] MACHINE OPERATOR (CURRENT) USE OF ASPIRIN 06/19/2016 YOUSIF BLANCO MD Ot 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 06/19/2016 YOUSIF BLANCO MD Ot S99.912A UNSPECIFIED INJURY OF LEFT ANKLE, INITIA 06/19/2016 YOUSIF BLANCO MD Ot W10.9XXA FALL (ON) (FROM) UNSPECIFIED STAIRS AND 06/19/2016 YOUSIF BLANCO MD Ot Y92.[address] IN [facility] (PRIVATE 06/19/2016 YOUSIF BLANCO MD Ot Y99.8 OTHER EXTERNAL CAUSE STATUS 06/19/2016 YOUSIF BLANCO MD Ot Z79.4 CRINKLING MACHINE OPERATOR (CURRENT) USE OF INSULIN 06/19/2016 YOUSIF BLANCO MD Ot Z79.82 SENIOR CARE (CURRENT) USE OF ASPIRIN 08/07/2016 YOUSIF BLANCO MD Ot 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 08/07/2016 YOUSIF BLANCO MD Ot S99.912A UNSPECIFIED INJURY OF LEFT ANKLE, INITIA 08/07/2016 YOUSIF BLANCO MD Ot W10.9XXA FALL (ON) (FROM) UNSPECIFIED STAIRS AND 08/07/2016 YOUSIF BLANCO MD Ot Y92.[address] IN [facility] (PRIVATE 08/07/2016 YOUSIF BLANCO MD Ot Y99.8 OTHER EXTERNAL CAUSE STATUS 08/07/2016 YOUSIF BLANCO MD Ot Z79.4 SENIOR CARE (CURRENT) USE OF INSULIN 08/07/2016 YOUSIF BLANCO MD Ot Z79.82 CRINKLING MACHINE OPERATOR (CURRENT) USE OF ASPIRIN 10/02/2016 DYLLAN MILLERP [...] MD Ot I10 ESSENTIAL (PRIMARY) HYPERTENSION 01/13/2017 ATLU BERGMAN MD Ot I25.10 ATHSCL HEART DISEASE OF [place] CORONARY 01/13/2017 ATUL BERGMAN MD Ot R73.09 OTHER ABNORMAL GLUCOSE 01/13/2017 ATUL BERGMAN MD Ot Z79.4 CRINKLING MACHINE OPERATOR (CURRENT) USE OF INSULIN 01/13/2017 ATUL BERGMAN MD Ot Z79.82 SENIOR CARE (CURRENT) USE OF ASPIRIN 01/21/2017 ATUL BERGMAN [...] MD Ot I25.10 ATHSCL HEART DISEASE OF [place] CORONARY 01/21/2017 ATUL BERGMAN MD Ot R73.09 OTHER ABNORMAL GLUCOSE 01/21/2017 ATUL BERGMAN MD Ot Z79.4 CRINKLING MACHINE OPERATOR (CURRENT) USE OF INSULIN 01/21/2017 ATUL BERGMAN MD Ot Z79.82 SENIOR CARE (CURRENT) USE OF ASPIRIN Procedures There is [...] NRG Blood erythrocyte morphology finding identification NORMAL [facility] Comprehensive metabolic panel - 06/18/16 03:11 [...] culture - 06/18/16 03:20 Bacterial urine culture [id number] NRG COLONY COUNT <10,000 NRG FTX;REPORTABLE SENSITIVITY [...] measurement by glucometer (mass/volume) 183 mg/dL 70-110 Capillary blood glucose measurement by glucometer (mass/volume) - 03/31/17 11: 56 Capillary blood glucose measurement by glucometer (mass/volume) 227 mg/dL 70-110 Complete urinalysis with reflex to culture - 03/31/17 12:01 Urine color determination YELLOW NRG Urine clarity determination CLEAR NRG Urine pH measurement by test strip 5 5-9 Specific gravity of urine by test strip 1.020 1.016- 1.022 Urine protein assay by test strip, semi-quantitative 1+ NEGATIVE Urine glucose detection by automated test strip 4+ NEGATIVE Erythrocytes detection in urine sediment by light microscopy NEGATIVE NEGATIVE Urine ketones detection by automated test strip 2+ NEGATIVE Urine nitrite detection by test strip [...] detection in urine sediment by light microscopy FEW NRG Crystals detection in urine sediment by light microscopy NONE NRG Casts detection in urine sediment by light microscopy NONE NRG Mucus detection in urine sediment by light microscopy NEGATIVE NRG Complete urinalysis with reflex to culture NO NRG Comprehensive metabolic panel - 03/31/17 12:44 Serum or plasma sodium measurement (moles/volume) 138 mmol/L 135-145 Serum or plasma potassium measurement (moles/volume) 4.1 mmol/L 3.6-5.0 Serum or plasma chloride measurement (moles/volume) 101 mmol/L 98-107 Carbon dioxide 23 mmol/L 21-32 Serum or plasma anion gap determination (moles/volume) 14 mmol/L 5-14 Serum or plasma urea nitrogen measurement (mass/volume) 23 mg/dL 7-18 Serum or plasma creatinine measurement (mass/volume) 0.79 mg/dL 0.60-1.30 Serum or plasma urea nitrogen/creatinine mass ratio 29 NRG Serum or plasma creatinine measurement with calculation of estimated glomerular filtration rate > NRG Serum or plasma glucose measurement (mass/volume) 263 mg/dL 70-105 Serum or plasma calcium measurement (mass/volume) 9.4 mg/dL 8.5-10.1 Serum or plasma total bilirubin measurement (mass/volume) 0.6 mg/dL 0.1-1.0 Serum or plasma alkaline phosphatase measurement (enzymatic activity/volume) 86 U/L 40-136 Serum or plasma aspartate aminotransferase measurement (enzymatic activity/ volume) 29 U/L 5-34 Serum or plasma alanine aminotransferase measurement (enzymatic activity/volume ) 29 U/L 0-55 Serum or plasma protein measurement (mass/volume) 5.9 g/dL 6.4-8.2 Serum or plasma albumin measurement (mass/volume) 3.8 g/dL 3.2-4.5 Complete blood count (CBC) with automated white blood cell (WBC) differential - 03/31/17 12:57 Blood leukocytes automated count (number/volume) 4.7 10*3/uL 4.3-11.0 Blood erythrocytes automated count (number/volume) 3.85 10*6/uL 4.35-5.85 Venous blood hemoglobin measurement (mass/volume) 11.9 g/dL 11.5-16.0 Blood hematocrit (volume fraction) 34 % 35-52 Automated erythrocyte mean corpuscular volume 89 [foz_us] 80-99 Automated erythrocyte mean corpuscular hemoglobin (mass per erythrocyte) 31 pg 25-34 Automated erythrocyte mean corpuscular hemoglobin concentration measurement ( mass/volume) 35 g/dL 32-36 Automated erythrocyte distribution width ratio 12.2 % 10.0-14.5 Automated blood platelet count (count/volume) 192 10*3/uL 130-400 Automated blood platelet mean volume measurement 9.7 [foz_us] 7.4-10.4 Automated blood neutrophils/100 leukocytes 79 % 42-75 Automated blood lymphocytes/100 leukocytes 10 % 12-44 Blood monocytes/100 leukocytes 10 % 0-12 Automated blood eosinophils/100 leukocytes 1 % 0-10 Automated blood basophils/100 leukocytes 0 % 0-10 Blood neutrophils automated count (number/volume) 3.7 10*3 1.8-7.8 Blood lymphocytes automated count (number/volume) 0.5 10*3 1.0-4.0 Blood monocytes automated count (number/volume) 0.5 10*3 0.0-1.0 Automated eosinophil count 0.1 10*3/uL 0.0-0.3 Automated blood basophil count (count/volume) 0.0 10*3/uL 0.0-0.1 Encounters ACCT No. Visit Date/Time Discharge Status Pt. Type Provider Facility Loc./Unit Complaint [id number] 01/13/2017 20:57:00 01/13/2017 23:18:00 DIS Emergency PACHECO MCKEON, ATUL Mccall [facility] ER BS [id number] 12/02/2016 10:00:00 12/02/2016 23:59:59 CLS Preadmit YUNIOR JOYNER MD [facility] DSME TYPE 1 DIABETES [id number] 10/22/2016 10:26:00 12/01/2016 00:46:00 DIS Outpatient YUNIOR JOYNER MD [facility] DSME TYPE 1 DIABETES [id number] 10/22/2016 10:27:00 10/22/2016 23:59:59 CLS Outpatient YUNIOR JOYNER MD [facility] RAD THYROID ENLARGEMENT [id number] 10/01/2016 14:43:00 10/01/2016 23:59:59 CLS Outpatient DYLLAN MILLER [facility] RAD COUGH [id number] 06/18/2016 03:09:00 06/18/2016 04:55:00 DIS Outpatient YOUSIF BLANCO MD [facility] ER BS [id number] 05/14/2016 08:32:00 05/14/2016 23:59:59 CLS Outpatient YUNIOR JOYNER MD [facility] LAB HTN,HYPOTHYROID [id number] 04/05/2016 09:51:00 04/05/2016 23:59:59 CLS Outpatient DORIAN TORRES MD [facility] RAD MULTINODULAR GOITER [id number] 02/08/2016 11:48:00 02/08/2016 23:59:59 CLS Outpatient TITO ANJUMIKE Florez APRN [facility] RAD SCREENING [id number] 12/28/2015 08:00:00 12/28/2015 23:59:59 CLS Outpatient TOM MARQUES [facility] LAB CAD,HYPERLIPIDEMIA, CAROTID ARTERIAL DISEASE [id number] 11/15/2015 08:07:00 11/15/2015 23:59:59 CLS Outpatient TOM MARQUES [facility] CARD CAD,HTN,HLP,MALAISE [id number] 08/15/2015 11:00:00 08/15/2015 23:59:59 CLS Outpatient DORIAN TORRES MD [facility] RAD MULTINODULAR GOITER [id number] 05/30/2015 13:05:00 05/30/2015 14:29:00 DIS Outpatient YUNIOR JOYNER MD [facility] REHAB BACK PAIN [id number] 04/04/2015 07:59:00 04/04/2015 23:59:59 CLS Outpatient YECENIA MCKEON FACCCHEN FACP CCDS [facility] LAB CAD,HLP [id number] 11/30/2014 10:53:00 11/30/2014 23:59:59 CLS Outpatient YUNIOR JOYNER MD [facility] RAD SCREENING [id number] 11/15/2014 11:32:00 11/15/2014 23:59:59 CLS Outpatient YUNIOR JOYNER MD [facility] RAD HAND PAIN,BACK PAIN, SCREENING [id number] 09/15/2014 08:41:00 09/15/2014 23:59:59 CLS Outpatient TOM MARQUES [facility] LAB CAD,HLP [id number] 06/21/2014 09:59:00 06/21/2014 23:59:59 CLS Outpatient DORIAN TORRES MD [facility] RAD MULTINODULAR GOITER [id number] 03/03/2014 09:07:00 03/03/2014 23:59:59 CLS Outpatient TOM MARQUES [facility] LAB HYPERLIPADEMIA [id number] 10/26/2013 14:53:00 10/26/2013 23:59:59 CLS Outpatient SIENA JOVEL MD [facility] RAD ROUTINE [id number] 10/15/2013 07:43:00 10/15/2013 23:59:59 CLS Outpatient YECENIA MCKEON FACC, CHEN GRAHAM CCDS [facility] CARD HTN,HLP,CAD [id number] 09/28/2013 08:48:00 09/28/2013 23:59:59 CLS Outpatient DORIAN TORRES MD [facility] RAD THYROID NODULE [id number] 09/02/2013 08:19:00 09/02/2013 23:59:59 CLS Outpatient SIENA JOVEL MD [facility] LAB UNSPECIFIED HYPERLIPIEDIMA,DIABETES MELLITUS [id number] 09/02/2013 08:12:00 09/02/2013 23:59:59 CLS Outpatient YECENIA MCKEON FACVlad, CHEN GRAHAM CCDS [facility] LAB RETINAL HEMORRHAGE,PATENT FORAMEN OVALE,PAROXYSMAL [id number] 01/13/2013 09:37:00 01/13/2013 23:59:59 CLS Outpatient DORIAN TORRES MD [facility] LAB FATIGUE,MONITORING GATE [id number] 01/08/2013 09:38:00 01/08/2013 23:59:59 CLS Outpatient CANDIE FRANCIS APRN [facility] RAD CALCIFIED RIGHT THYROID LOBE 5 MO RECHECK [id number] 11/06/2012 07:13:00 11/06/2012 23:59:59 CLS Outpatient YECENIA MCKEON FACCCHEN FACP CCDS [facility] RAD HX OF MOD CAD [id number] 10/22/2012 08:10:00 10/22/2012 23:59:59 CLS Outpatient TOM MARQUES [facility] LAB CAD,HYPERLIPIDEMIA,DM ,STATIN [place] [id number] 10/13/2012 13:20:00 10/13/2012 23:59:59 CLS Outpatient SIENA JOVEL MD [facility] RAD SIX MONTH FOLLOW-UP [id number] 08/21/2012 10:11:00 08/21/2012 23:59:59 CLS Outpatient DORIAN TORRES MD [facility] RAD MULTI-NODULAR GOITER [id number] 07/29/2012 10:50:00 07/29/2012 23:59:59 CLS Outpatient DORIAN TORRES MD [facility] RAD RT LOBE THYROID NODULE [id number] 03/31/2017 12:02:00 Document Registration [id number] 03/03/2014 09:06:00 Document Registration [id number] 06/04/2012 23:40:00 Document Registration [id number] 04/24/2012 13:04:00 Document Registration [id number] 04/08/2012 09:46:00 Document Registration [id number] 03/26/2012 07:47:00 Document Registration [id number] 12/21/2011 10:26:00 Document Registration [id number] 09/24/2011 06:31:00 Document Registration [id number] 09/19/2011 07:23:00 Document Registration [id number] 04/30/2011 13:00:00 Document Registration [id number] 03/26/2011 09:06:00 Document Registration [id number] 02/28/2011 08:42:00 Document Registration [id number] 02/22/2011 13:30:00 Document Registration [id number] 01/01/2011 06:26:00 Document Registration [id number] 08/10/2010 07:35:00 Document Registration [id number] 03/01/2010 14:55:00 Document Registration [id number] 02/22/2010 08:13:00 Document Registration [id number] 08/11/2009 07:46:00 Document Registration [id number] 02/03/2009 07:38:00 Document Registration [id number] 01/13/2009 13:37:00 Document Registration [id number] 12/06/2008 11:16:00 Document Registration
[2017-03-31 13:43] VITALS: BP 177/71
[2017-03-31 16:00] VITALS: BP 135/63
[2017-03-31] MEDS ORDERED: SIMV20TA3 PO (16:09)
[2017-03-31] MEDS ORDERED: SERT50TA9 PO (16:09)
[2017-03-31] MEDS ORDERED: GABA-486 PO (16:09)
[2017-03-31] MEDS ORDERED: METO50TA15 PO (16:09)
[2017-03-31] MEDS ORDERED: HYDR12.5 PO (16:09)
[2017-03-31] MEDS: inSUlin ASPART (NovoLOG) 1 UNIT/0.01 ML (CHARGE PER UNIT) SC SCH ×2 (16:13→20:40)
[2017-03-31] MEDS: KETOROLAC 15 MG/ML VIAL IVP PRN (16:13)
[2017-03-31] MEDS ORDERED: CALC-9 PO (16:34)
[2017-03-31] MEDS ORDERED: INSU100V16 SQ (16:34)
[2017-03-31] MEDS ORDERED: INSU100V6 SQ (16:34)
[2017-03-31] MEDS ORDERED: OLME40TA12 PO (16:34)
[2017-03-31] MEDS ORDERED: ASPI-983 PO (16:35)
[2017-03-31 20:00] VITALS: BP 144/65
[2017-03-31] MEDS: NITROFURANTOIN 100 MG (MACROBID) CAPSULE PO SCH (20:40)
[2017-03-31] MEDS: fentaNYL INJECTION 100 MCG/2 ML AMP IVP PRN (20:40)
[2017-04-01] VITALS: BP 158/77
[2017-04-01] MEDS: KETOROLAC 15 MG/ML VIAL IVP PRN (03:59)
[2017-04-01 04:00] VITALS: BP 167/76
[2017-04-01] MEDS ORDERED: ONDANSETRON 4 MG/2 ML (SDV) Z0FRAN IVP PRN (04:15)
[2017-04-01] MEDS: fentaNYL INJECTION 100 MCG/2 ML AMP IVP PRN ×2 (05:29→08:43)
[2017-04-01] MEDS: inSUlin ASPART (NovoLOG) 1 UNIT/0.01 ML (CHARGE PER UNIT) SC SCH ×4 (05:30→21:22)
[2017-04-01 08:00] VITALS: BP 178/76
--- NOTE | 2017-04-01 08:20 | History & Physicial ---
History of Present Illness History of Present Illness Reason for visit/HPI PT IS AN 86 Y/O FEMALE WHO IS WELL KNOWN TO ME FROM CLINIC. SHE HAS INSULIN DEPENDENT DIABETES WITH DIFFICULT TO CONTROL BLOOD GLUCOSE LEVELS. PT HAD EPISODES OF PAIN IN HER BACK WHEN VISITING FAMILY IN [place], WAS TAKEN TO THE EMERGENCY DEPARTMENT IN [place], TREATED FOR HER PAIN, AND PRESENTED TO MY OFFICE THE NEXT WEEK FOR FOLLOW UP - AT THAT TIME THE PT REPORTED THAT HER PAIN HAD IMPROVED. APPARENTLY, HER PAIN WORSENED OVER THE WEEKEND AND SHE WAS BROUGHT TO THE EMERGENCY DEPARTMENT FOR FURTHER WORK-UP/EVALUATION. CT OF THE LUMBAR SPINE DID NOT REVEAL ANY NEW FRACTURES OR DERANGEMENT OF HER LUMBAR SPINE HARDWARE. Date of Admission Mar 31, 2017 at 13:23 Date Seen by Provider: Apr 01, 2017 Time Seen by Provider: 08:20 Attending Physician Yunior Recinos MD Admitting Physician Yunior Recinos MD Allergies and Home Medications Allergies Coded Allergies: NATANo Known Allergies (Verified Allergy, Unknown, 03/31/17) Home Medications Aspirin 81 Mg Tablet.dr, 81 MG PO HS, (Reported) Calcium Carbonate/Vitamin D3 1 Each Tablet, 1 TAB PO DAILY, (Reported) Gabapentin 100 Mg Capsule, 100 MG PO BID, (Reported) Hydrochlorothiazide 12.5 Mg Capsule, 12.5 MG PO DAILY, (Reported) Insulin Aspart 100 Unit/1 Ml Susp, SQ SLIDING/SCALE, (Reported) Insulin Glargine,Hum.rec.anlog 100 Unit/1 Ml Vial, 10 UNITS SQ DAILY, (Reported) Metoprolol Tartrate 50 Mg Tablet, 50 MG PO BID, (Reported) Nitrofurantoin Monohyd/M-Cryst 100 Mg Capsule, 100 MG PO BID, (Reported) FILLED 03/24/17 #14 FOR A 7 DAY THERAPY Olmesartan Medoxomil 40 Mg Tablet, 40 MG PO DAILY, (Reported) RECEIVES FROM DEIRDRE Sertraline HCl 50 Mg Tablet, 50 MG PO DAILY, (Reported) Simvastatin 20 Mg Tablet, 20 MG PO HS, (Reported) Tramadol HCl 50 Mg Tablet, 50 MG PO Q6H PRN for PAIN-MODERATE, (Reported) Past Ntlbkhu-Bdynst-Jbrbhp Hx Patient Social History Marrital Status: Living Status: lives in her home with her son (he is moving soon to [place]) Employed/Student: retired Alcohol Use: Denies Use Recreational Drug Use: No Smoking Status: Never a Smoker 2nd Hand Smoke Exposure: No Physical Abuse Screen: No Sexual Abuse: No Recent Foreign Travel: No Contact w/other who traveled: No Recent Hopitalizations: No Recent Infectious Disease Expo: No Immunizations Up To Date Tetanus Booster (TDap): Less than 5yrs Pediatric: Yes Date of Pneumonia Vaccine: Dec 06, 2011 Date of Influenza Vaccine: Dec 02, 2016 Seasonal Allergies Seasonal Allergies: No Surgeries Yes (APPY) Respiratory No Cardiovascular Yes Coronary Artery Disease, Hypertension Neurological No Reproductive System : No Hx Reproductive Disorders: No Sexually Transmitted Disease: No HIV/AIDS: No 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 Genitourinary Yes (STRESS INCONTINENCE) Gastrointestinal No Musculoskeletal Yes Chronic Back Pain Endocrine History of Endocrine Disorders: Yes Endocrine Disorders: Diabetes, Insulin dep Are Your Blood Sugars Over 250: Yes HEENT History of HEENT Disorders: Yes Loss of Vision: Left Hearing Impairment: Hearing Aide Left, Bilateral Hearing Aide Cancer No Psychosocial History of Psychiatric Problem: Yes Behavioral Health Disorders: Anxiety, Depression Integumentary History of Skin or Integumenta: Yes (SORES ON BACK OF NECK) Blood Transfusions History of Blood Disorders: Yes (ANEMIA) Adverse Reaction to a Blood Tr: No Reviewed Nursing Assessment Reviewed/Agree w Nursing PMH: Yes Family Medical History Significant Family History: Heart Disease, Hypertension Family Hx: Constitutional: No chills, No diaphoresis, No fever, No malaise, weakness EENTM: No blurred vision, No hoarseness, No mouth pain, No throat pain Respiratory: No cough, No dyspnea on exertion, No short of breath Cardiovascular: No chest pain, No edema, No palpitations Gastrointestinal: No abdominal pain, No constipation, No diarrhea, No nausea, No vomiting Genitourinary: no symptoms reported Musculoskeletal: back pain, muscle weakness (in legs) Skin: No change in color, No lesions Psychiatric/Neurological: Anxiety, Denies Headache, Weakness All Other Systems Reviewed Negative Unless Noted: Yes Physical Exam Vital Signs Vital Sign - Last 12Hours 03/31/17 03/31/17 10:20 13:43 Temp 97.5 Pulse 93 Resp 18 B/P (MAP) 122/87 (99) Pulse Ox 97 O2 Delivery Room Air Capillary Refill : Less Than 3 SecondsLess Than 3 Seconds General Appearance: WD/WN, Mild Distress (due to pain) Eyes: Bilateral Eye Normal Inspection, Bilateral Eye PERRL, Bilateral Eye EOMI HEENT: PERRL/EOMI Neck: Full Range of Motion, Supple Respiratory: Chest Non Tender, Lungs Clear, Normal Breath Sounds, No Accessory Muscle Use Cardiovascular: Regular Rate, Rhythm, Systolic Murmur Gastrointestinal: Normal Bowel Sounds, No Organomegaly, No Pulsatile Mass, Non Tender, Soft Rectal: Deferred Back: Other (ttp over right SI joint) Neurologic/Psychiatric: Alert, Oriented x3, No Motor/Sensory Deficits, Normal 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 CONSULT TO PHYSICAL THERAPY FOR MODALITIES, STRENGTHENING, CONSIDERATION OF INPATIENT REHAB FOR EVALUATION AND POSSIBLE TRANSFER. STARTED OXYCODONE 5/325MG Q 8 HOURS SCHEDULED, AND CONTINUE WITH PRN FENTANYL INJECTIONS. SCHEDULED LIDOCAINE PATCH. CONSULT WAS PLACED TO DR. ARJUN WATSON, BUT PER NURSING REPORT, HE REPORTEDLY STATED THAT HE WAS NOT GOING TO SEE PT FOR BACK PAIN IN THE HOSPITAL AND TO SCHEDULE HER AN APPT IN HIS CLINIC INSTEAD. UNCONTROLLED DIABETES MELLITUS - RESTART HOME MEDICATIONS, CONTINUE WITH SLIDING SCALE INSULIN. HYPERTENSION - RESUME HOME MEDICATIONS. ANXIETY - MONITOR SYMPTOMS. DVT PROPHYLAXIS WITH LOVENOX AND SCD'S GI PROPHYLAXIS WITH PEPCID. 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
[2017-04-01] MEDS: NITROFURANTOIN 100 MG (MACROBID) CAPSULE PO SCH ×2 (08:31→21:21)
[2017-04-01] MEDS: inSUlin DETERMIR 1 UNIT/0.01 ML (LEVEMIR) CHARGE PER UNIT SQ SCH (08:31)
[2017-04-01] MEDS ORDERED: ASPIRIN 81 MG CHEW (CHILDREN'S ASA) PO SCH (09:00)
[2017-04-01] MEDS ORDERED: GABAPENTIN 100 MG (NEURONTIN) CAP PO SCH (09:00)
[2017-04-01] MEDS ORDERED: oxyCODONE/APAP 5/325MG (PERCOCET 5) TABLET PO NR (10:54)
[2017-04-01] MEDS: FAMOTIDINE 20 MG (PEPCID) TABLET PO SCH (11:07)
[2017-04-01] MEDS: meTOprolol TARTRATE 50 MG (LOPRESSOR) TAB PO SCH ×2 (11:07→21:20)
[2017-04-01] MEDS: ENOXAPARIN 40 MG/0.4 ML (LOVENOX) SYR SC SCH (11:08)
[2017-04-01] MEDS: LACTOBACILLUS Acidoph/Bulgar (LACTINEX/FLORANEX) TAB PO SCH ×2 (11:08→18:00)
[2017-04-01] MEDS: OLMESARTAN 20 MG (BENICAR) TABLET PO SCH (11:08)
[2017-04-01] MEDS: LIDOCAINE (LIDODERM) 5% PATCH TOP SCH (11:09)
[2017-04-01] MEDS: oxyCODONE/APAP 5/325MG (PERCOCET 5) TABLET PO SCH ×3 (11:09→21:21)
[2017-04-01 12:00] VITALS: BP 168/72
[2017-04-01] MEDS: KETOROLAC 15 MG/ML VIAL IVP SCH ×2 (12:10→21:22)
--- NOTE | 2017-04-01 14:48 | Physical Therapy Evaluation ---
PT Evaluation-General Medical Diagnosis Admission Date Mar 31, 2017 at 13:23 Medical Diagnosis: sciatica/intractable back pain Onset Date: Mar 31, 2017 Therapy Diagnosis Therapy Diagnosis: right LBP/debility Height/Weight Height (Feet): 5 Height (Inches): 2.00 Weight (Pounds): 125 Weight (Ounces): 0.0 Precautions Precautions/Isolations: Fall Prevention, Standard Precautions Weight Bear Status Right Lower Extremity: Right Full Weight Bearing Left Lower Extremity: Left Full Weight Bearing Referral Physician: Jorje Reason for Referral: Evaluation/Treatment Medical History Pertinent Medical History: CAD, DM, HTN Current History ED with right LBP radiating to right hip and thigh x 1 wk Reviewed History: Yes Social History Home: Single Level Current Living Status: Children Prior/Core FIM Prior Level of Function Functional [place] Measure 0=Not Assessed/NA 4=Minimal Assistance 1=Total Assistance 5=Supervision or Setup 2=Maximal Assistance 6=Modified [place] 3=Moderate Assistance 7=Complete [place] Bed Mobility: 7 Transfers (B,C,W/C) (FIM): 7 Gait: 7 PT Evaluation-Current Subjective Patient agrees to PT. Pain Numeric Pain Scale: 10-Worst Possible Pain Location: Right, Lower Location Body Site: Back Pain Description: Ache, Sharp Comment: noted gluteal and pirformis tightness to palpation Objective Patient Orientation: Normal For Age Problem Solving: Fair ROM/Strength ROM Lower Extremities bilateral LE WNL Strength Lower Extremities right knee flexion/extension 4-/5; hip flexion 3/5; DF/PF 4/5; abd/add 4/5 left knee flexion/extension 4/5; hip flexion 4/5; DF/PF 4/5; abd/add 4/5 Integumentary/Posture Integumentary refer to nursing notes Bowel Incontinence: No Bladder Incontinence: No Posture WNL Neuromuscular (Tone, Coordination, Reflexes) grossly intact coordination Sensory Vision: Functional Hearing: Impaired Sensation Right Lower Extremit: Intact Sensation Left Lower Extremity: Intact Transfers Functional [place] Measure 0=Not Assessed/NA 4=Minimal Assistance 1=Total Assistance 5=Supervision or Setup 2=Maximal Assistance 6=Modified [place] 3=Moderate Assistance 7=Complete [place] Transfers (B, C, W/C) (FIM): 5 Scootin Rollin Supine to/from Sit: 5 Sit to/from Stand: 5 Gait Mode of Locomotion: Walk Anticipated Mode of Locomotion: Walk Gait (FIM): 5 Distance (FIM): 3=150 ft Distance: 250' Gait Level of Assist: 5 Gait Assistive Device: FWW Comments/Gait Description slow, shuffle gait sequence Balance Sitting Static: Normal Sitting Dynamic: Normal Standing Static: Fair Standing Dynamic: Fair Treatment Patient had (-)SLR bilaterally, increase c/o pain with palpation to piriformis and gluteal musculature with noted tightness/spasm. Patient's mobility is functional but guarded due to right gluteal/piriformis pain. Warm blanket placed on patient painful region after all testing and deep massage to effected region. Patient would benefit from outpatient PT. Assessment/Needs 86 y.o. female, with right gluteal muscular pain, will be seen for short term by inhouse skilled PT to address this issue. Patient demonstrates good strength and functional mobility, however, it is limited by localized pain. Patient appears to be heavily medicated with dry mouth and sluggish speech.. From a PT standpoint, patient would benefit from outpatient PT to address right LBP. Rehab Potential: Fair PT Longterm Goals Can Carrier Goals PT Longterm Goals Time Frame: Apr 05, 2017 Transfers (B,C,W/C) (FIM): 6 Gait (FIM): 6 Gait distance (FIM): 3=150 ft Gait Level of Assist: 6 Gait Assistive Device: FWW PT Plan Problem List Problem List: Other (right gluteal/piriformis pain) Treatment/Plan Treatment Plan: Continue Plan of Care Treatment Plan: Bed Mobility, Education, Functional Activity Karrie, Functional Strength, Gait, Safety, Therapeutic Exercise, Transfers, Other Treatment Duration: Apr 05, 2017 Frequency: 5 times per week Estimated Hrs Per Day: .25 hour per day Patient and/or Family Agrees t: Yes Safety Risks/Education Patient Education: Safety Issues Teaching Recipient: Patient Teaching Methods: Discussion Discharge Recommendations Therapy D/C Recommendations: Physical Therapy Outpatient Equpiment Recommendations-D/C: Front Wheeled Walker Time/GCodes Time In: 1300 Time Out: 1326 Total Billed Treatment Time: 26 Total Billed Treatment 1 visit EVModC 26 min G Codes Necessary: Yes PT/OT Therapy GCodes Therapy Functional Limitation: Physical Therapy Test(s)/Tool used to determine: Level of Assistance Scale Functional Limitation-Current Charge Code: MOBCUR Modifier: CJ Functional Limitation-Goal Charge Code: MOBGOAL Modifier: DINESH KENDRICK PT Apr 01, 2017 14:48
[2017-04-01 16:00] VITALS: BP 111/66
[2017-04-01 19:51] VITALS: BP 124/66
[2017-04-01] MEDS ORDERED: SIMvastatin 20 MG (ZOCOR) TAB PO SCH (21:00)
[2017-04-01] MEDS: GABAPENTIN 100 MG (NEURONTIN) CAP PO SCH (21:21)
[2017-04-02] VITALS: BP 123/69
[2017-04-02 04:13] VITALS: BP 132/68
[2017-04-02] MEDS: LACTOBACILLUS Acidoph/Bulgar (LACTINEX/FLORANEX) TAB PO SCH ×2 (05:45→12:04)
[2017-04-02] MEDS: oxyCODONE/APAP 5/325MG (PERCOCET 5) TABLET PO SCH ×2 (05:45→13:39)
[2017-04-02] MEDS: KETOROLAC 15 MG/ML VIAL IVP SCH ×2 (05:45→13:38)
[2017-04-02] MEDS: inSUlin ASPART (NovoLOG) 1 UNIT/0.01 ML (CHARGE PER UNIT) SC SCH ×2 (06:14→12:04)
[2017-04-02] MEDS: meTOprolol TARTRATE 50 MG (LOPRESSOR) TAB PO SCH (07:44)
[2017-04-02] MEDS: OLMESARTAN 20 MG (BENICAR) TABLET PO SCH (07:44)
[2017-04-02] MEDS: GABAPENTIN 100 MG (NEURONTIN) CAP PO SCH (07:44)
[2017-04-02] MEDS: NITROFURANTOIN 100 MG (MACROBID) CAPSULE PO SCH (07:44)
[2017-04-02] MEDS: FAMOTIDINE 20 MG (PEPCID) TABLET PO SCH (07:44)
[2017-04-02] MEDS: inSUlin DETERMIR 1 UNIT/0.01 ML (LEVEMIR) CHARGE PER UNIT SQ SCH (07:45)
[2017-04-02] MEDS: LIDOCAINE (LIDODERM) 5% PATCH TOP SCH (07:45)
[2017-04-02 08:00] VITALS: BP 188/79
[2017-04-02] MEDS ORDERED: PATCH REMOVAL TP SCH (08:59)
[2017-04-02] MEDS ORDERED: INSULIN GLARGINE HUM REC ANLOG 10 UNIT SQ SCH (09:00)
[2017-04-02] MEDS ORDERED: SERTRALINE 50 MG (ZOLOFT) TABLET PO SCH (09:00)
[2017-04-02] MEDS ORDERED: CYCL5TAB PO (09:18)
[2017-04-02] MEDS ORDERED: OXYC-471 PO (09:18)
--- NOTE | 2017-04-02 09:21 | Discharge Inst-Skilled Nursing ---
Discharge Inst-Skilled NF Patient Instructions Patient Problems: low back pain muscle spasm in buttock and low back diabetes mellitus Goal: assisted living or home with home health Consult/Follow Up/Orders Follow Up Appt.: [address] mejia Skilled NF Admit to: Via [facility] Certification ([facility]) I certify that SNF services are required to be given on an inpatient basis because of the above named patient's need for detention care on a continuing basis for the conditions(s) for which he/she was receiving inpatient hospital services prior to his/her transfer to the [facility]. 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 Paper Tester-Evaluate & Treat, Physical Therapy-Evaluate & Treat Discharge Diet: ADA Diet Daily Activity as Tolerated: Yes New & Resume Previous Orders New & Resume Previous Orders fsbs ac and hs and prn symptoms of low or high blood glucose pt may self-administer her insulin physical therapy to use modalities as needed for alleviation of low back and gluteal pain Yunior Mejia Apr 02, 2017 09:19 Pneu Vac Indicated: Yes Medication List: Active Scripts Active Cyclobenzaprine HCl 5 Mg Tablet 2.5 Mg PO TID Oxycodone-Acetaminophen 5-325 (Oxycodone HCl/Acetaminophen) 1 Each Tablet 1 Tab PO Q8HR Reported Aspirin EC (Aspirin) 81 Mg Tablet.dr 81 Mg PO HS Novolog (Insulin Aspart) 100 Unit/1 Ml Susp SQ SLIDING/SCALE Lantus (Insulin Glargine,Hum.rec.anlog) 100 Unit/1 Ml Vial 10 Units SQ DAILY Benicar (Olmesartan Medoxomil) 40 Mg Tablet 40 Mg PO DAILY RECEIVES FROM DEIRDRE Calcium 600 + Vit D Tablet (Calcium Carbonate/Vitamin D3) 1 Each Tablet 1 Tab PO DAILY Sertraline HCl 50 Mg Tablet 50 Mg PO DAILY Simvastatin 20 Mg Tablet 20 Mg PO HS Metoprolol Tartrate 50 Mg Tablet 50 Mg PO BID Gabapentin 100 Mg Capsule 100 Mg PO BID Hydrochlorothiazide 12.5 Mg Capsule 12.5 Mg PO DAILY Nitrofurantoin [place]-Mcr 100 mg (Nitrofurantoin Monohyd/M-Cryst) 100 Mg Capsule 100 Mg PO BID FILLED 03/24/17 #14 FOR A 7 DAY THERAPY Tramadol HCl 50 Mg Tablet 50 Mg PO Q6H PRN Lab results: Laboratory Tests Test 04/01/17 11:21 04/01/17 15:51 04/01/17 20:51 04/01/17 21:20 Range/Units Glucometer 279 H 144 H 64 L 79 70-110 MG/DL Test 04/01/17 23:38 04/02/17 05:50 Range/Units Glucometer 101 135 H 70-110 MG/DL My orders: Orders - YUNIOR MEJIA MD Famotidine Tablet (Pepcid Tablet) (04/01/17 10:13) Irf Req Eval/Acute Rehab (04/01/17 14:23) Patient Visit (04/01/17 ) Pt Eval Moderate Complexity (04/01/17 ) Pt Mobility Current Status (04/01/17 ) Pt Mobility Goal Status (04/01/17 ) Attending Discharge (04/02/17 09:12) Social Service (04/02/17 09:12) YUNIOR MEJIA MD Apr 02, 2017 09:21
--- NOTE | 2017-04-02 09:23 | Discharge Summary ---
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 SHE HAS INSULIN DEPENDENT DIABETES WITH DIFFICULT TO CONTROL BLOOD GLUCOSE LEVELS. PT HAD EPISODES OF PAIN IN HER BACK WHEN VISITING FAMILY IN [place], WAS TAKEN TO THE EMERGENCY DEPARTMENT IN [place], TREATED FOR HER PAIN, AND PRESENTED TO MY OFFICE THE NEXT WEEK FOR FOLLOW UP - AT THAT TIME THE PT REPORTED THAT HER PAIN HAD IMPROVED. APPARENTLY, HER PAIN WORSENED OVER THE WEEKEND AND SHE WAS BROUGHT TO THE EMERGENCY DEPARTMENT FOR FURTHER WORK-UP/EVALUATION. CT OF THE LUMBAR SPINE DID NOT REVEAL ANY NEW FRACTURES OR DERANGEMENT OF HER LUMBAR SPINE HARDWARE. Discharge Summary Discharge Physical Examination Allergies: Coded Allergies: NKANo Known Allergies (Verified Allergy, Unknown, 03/31/17) Vitals & I&Os Vital Signs Date Time Temp Pulse Resp B/P (MAP) Pulse Ox O2 Delivery O2 Flow Rate FiO2 04/02/17 04:13 98.0 68 19 132/68 (89) 96 Room Air Hospital Course Pending Labs Laboratory Tests 04/02/17 05:50: Glucometer 135 Discharge Instructions to patient/family Please see electronic discharge instructions given to patient. Discharge Medications Reviewed and agree with Discharge Medication list on patient's Discharge Instruction sheet Clinical Quality Measures DVT/VTE Risk/Contraindication: Risk Factor Score Per Nursin RFS Level Per Nursing on Admit: 4+=Very High YUNIOR JOYNER MD Apr 02, 2017 09:23
--- NOTE | 2017-04-02 09:56 | Physical Therapy Daily Note ---
PT Daily Note-Current Subjective Patient rates right gluteal pain 4/10. Pain Numeric Pain Scale: 4 Location: Right, Soft Tissue Location Body Site: Sacrum (gluteal region) Pain Description: Acute Mental Status Patient Orientation: Person, Time, Situation Transfers Functional [place] Measure 0=Not Assessed/NA 4=Minimal Assistance 1=Total Assistance 5=Supervision or Setup 2=Maximal Assistance 6=Modified [place] 3=Moderate Assistance 7=Complete IndependenceIRFPAI Quality Coding Scale 6 Independent with activity with or without an assistive device 5 Patient requires set up or clean up by helper. Patient completes activity by themselves 4 Supervision or touching assist (CGA). [place] provide cues , steadying assist 3 The helper provides less than half the effort to complete the activity 2 The helper provides more than half the effort to complete the activity 1 Dependent. The helper does all the effort to complete an activity 7 Patient refused to complete or attempt activity 9 The patient did not perform the activity before the current illness or injury 88 Not attempted due to Medical conditions or safety concerns Transfers (B, C, W/C) (FIM): 5 Scootin Rollin Supine to/from Sit: 5 Sit to/from Stand: 5 Weight Bearing Right Lower Extremity: Right Full Weight Bearing Left Lower Extremity: Left Full Weight Bearing Gait Training Gait (FIM): 5 Distance (FIM): 3=150 ft Distance: 300' Gait Level of Assist: 5 Gait Assistive Device: FWW slow, steady gait sequence Exercises Supine Ex: Ankle pumps, Quad Set, Lower trunk rotation, Heel Slides, Hip abd/ add Supine Reps: 10 (with piriformis stretching) Assessment Patient is much improved with decrease c/o pain. Patient dismissing to home or care facility on this date. PT Fci Goals Fci Goals PT Fci Goals Time Frame: Apr 05, 2017 Transfers (B,C,W/C) (FIM): 6 Gait (FIM): 6 Gait distance (FIM): 3=150 ft Gait Level of Assist: 6 Gait Assistive Device: FWW PT Plan Treatment/Plan Treatment Plan: Discontinue PT Treatment Plan: Bed Mobility, Education, Functional Activity Karrie, Functional Strength, Gait, Safety, Therapeutic Exercise, Transfers, Other Treatment Duration: Apr 05, 2017 Frequency: 5 times per week Estimated Hrs Per Day: .25 hour per day Patient and/or Family Agrees t: Yes Time/GCodes Time In: 900 Time Out: 923 Total Billed Treatment Time: 23 Total Billed Treatment 1 visit GT 13 min Ex 10 min G Codes Necessary: Yes PT/OT Therapy GCodes Therapy Functional Limitation: Physical Therapy Test(s)/Tool used to determine: Level of Assistance Scale Functional Limitation-Current Charge Code: MOBCUR Modifier: ROMY Functional Limitation-Goal Charge Code: MOBGOAL Modifier: CI Functional Limitation-D/C Charge Codes: MOBDC Modifier: DINESH OZUNA PT Apr 02, 2017 09:56
[2017-04-02 12:00] VITALS: BP 186/74
[2017-04-02] MEDS: ENOXAPARIN 40 MG/0.4 ML (LOVENOX) SYR SC SCH (12:03)
[2017-04-02] MEDS ORDERED: ESCI10TA PO (13:04)
[2017-04-02 16:00] VITALS: BP 176/75
== END 2017-04-02 09:12 ==
LOC: EDUNIT# 10:13 → ER 10:15 → 4TH 13:23 → UNDOADMOB 13:23 → 4TH 13:45 → UNDODISOB 04-02 16:00
PROVIDERS: ADMIT Internal Medicine; ATTEND Family Medicine
DX: M51.36 Other intervertebral disc degeneration, lumbar region (principal); M46.1 Sacroiliitis, not elsewhere classified; E11.65 Type 2 diabetes mellitus with hyperglycemia; I10 Essential (primary) hypertension; I25.10 Atherosclerotic heart disease of native coronary artery without angina pectoris; F41.9 Anxiety disorder, unspecified; Z79.4 Long term (current) use of insulin
CPT/HCPCS: 36415; 72131; 80053; 81000; 82962; 85027; 96372; 99284; G0378

== ENCOUNTER → 2017-05-30 | Outpatient (CLI) | payer MEDICARE ==
[~2017-05-30] MED LIST changes: +ASPI-983 PO; +CALC-9 PO; +CYCL5TAB PO; +ESCI10TA PO; +GABA-486 PO; +HYDR12.5 PO; +INSU100V16 SQ; +INSU100V6 SQ; +METO50TA15 PO; +NITR100C10 PO; +OLME40TA12 PO; +OXYC-471 PO; +SERT50TA9 PO; +SIMV20TA3 PO; +TRAM50TA2 PO
== END ==
LOC: CARD 13:45
PROVIDERS: ATTEND Nurse Practitioner Family
DX: I25.10 Atherosclerotic heart disease of native coronary artery without angina pectoris (principal); I10 Essential (primary) hypertension; E78.5 Hyperlipidemia, unspecified; I47.1 Supraventricular tachycardia; Q21.1 Atrial septal defect
CPT/HCPCS: 93306

== ENCOUNTER → 2017-07-23 | Outpatient (CLI) | payer MEDICARE | LOC: RAD 14:33 | PROVIDERS: ATTEND Internal Medicine Cardiovascular Disease | DX: I73.9 Peripheral vascular disease, unspecified (principal); I10 Essential (primary) hypertension; E11.51 Type 2 diabetes mellitus with diabetic peripheral angiopathy without gangrene; I25.10 Atherosclerotic heart disease of native coronary artery without angina pectoris; E78.5 Hyperlipidemia, unspecified; I47.1 Supraventricular tachycardia; I65.23 Occlusion and stenosis of bilateral carotid arteries | CPT/HCPCS: 93923 ==

== ENCOUNTER 2017-08-29 18:22 | Observation (INO) | payer MEDICARE ==
[2017-08-29] VITALS (7 sets, daily range): BP systolic 155–209; BP diastolic 65–110
[~2017-08-29] VITALS: Ht 157.5 cm; Wt 56.2 kg
[2017-08-29] MEDS ORDERED: ASPIRIN 81 MG CHEW (CHILDREN'S ASA) PO ONE (19:15)
--- NOTE | 2017-08-29 19:16 | ED Chest Pain ---
General Chief Complaint: Cardiac/General Problems Stated Complaint: HIGH BP Nursing Triage Note: BACK/NECK PAIN STARTING APPROX. 1600 RESOLVED, C/O HTN Nursing Sepsis Screen: No Definite Risk Source: patient Exam Limitations: no limitations History of Present Illness Date Seen by Provider: Aug 29, 2017 Time Seen by Provider: 18:59 Initial Comments Patient presents to ER from urgent care with a chief complaint this evening about 2-3 hours prior to arrival she was sitting in her easy chair watching TV doing some knitting and suddenly had an onset of abrupt sharp pain in her neck both sides as well as in her shoulders. She was worried she may be having a heart attack so she went to the urgent care. They did an EKG and told her that it was normal and told her to go to the ER. Patient says she's had a stent put in several years ago by Dr. Dillon. She does have a history of high blood pressure was concerned because at the urgent care her blood pressure systolic was around 200/100. Nursing here reports it was around 158 systolic when she got brought back. Patient says the pains pretty much completely resolved at this point. She does not smoke nor did she ever. She is diabetic. She's had one stent no heart attacks. No strokes. She has high cholesterol hypertension. She had no nausea or diaphoresis. She does not have any pain on palpation of her chest. She does not have any pain when she takes a deep breath. She has no cough fevers or chills. Allergies and Home Medications Allergies Coded Allergies: NKANo Known Allergies (Verified Allergy, Unknown, 03/31/17) Home Medications Aspirin 81 Mg Tablet.dr, 81 MG PO HS, (Reported) Calcium Carbonate/Vitamin D3 1 Each Tablet, 1 TAB PO DAILY, (Reported) Cyclobenzaprine HCl 5 Mg Tablet, 2.5 MG PO TID Prescribed by: YUNIOR RECINOS on 04/02/17 0918 Gabapentin 100 Mg Capsule, 100 MG PO BID, (Reported) Hydrochlorothiazide 12.5 Mg Capsule, 12.5 MG PO DAILY, (Reported) Insulin Aspart 100 Unit/1 Ml Susp, SQ SLIDING/SCALE, (Reported) Insulin Glargine,Hum.rec.anlog 100 Unit/1 Ml Vial, 10 UNITS SQ DAILY, (Reported) Metoprolol Tartrate 50 Mg Tablet, 50 MG PO BID, (Reported) Olmesartan Medoxomil 40 Mg Tablet, 40 MG PO DAILY, (Reported) RECEIVES FROM DEIRDRE Simvastatin 20 Mg Tablet, 20 MG PO HS, (Reported) Patient Home Medication List Home Medication List Reviewed: Yes Review of Systems Constitutional: No chills, No diaphoresis, No fever, No malaise EENTM: No Blurred Vision, No Double Vision Respiratory: Denies Cough, Denies Shortness of Air Cardiovascular: See HPI, Chest Pain; Denies Edema, Denies Irregular Heart Rate , Denies Palpitations, Denies Syncope Gastrointestinal: Denies Constipated, Denies Diarrhea Genitourinary: Denies Burning, Denies Discharge Musculoskeletal: No back pain, No joint pain Skin: No pruritus, No rash Past Xaxghtp-Ytqszv-Ranilj Hx Patient Social History Alcohol Use: Denies Use Recreational Drug Use: No Smoking Status: Never a Smoker 2nd Hand Smoke Exposure: No Recent Foreign Travel: No Contact w/Someone Who Travel: No Recent Infectious Disease Expo: No Recent Hopitalizations: No Immunizations Up To Date Tetanus Booster (TDap): Less than 5yrs PED Vaccines UTD: Yes Date of Pneumonia Vaccine: Dec 06, 2011 Date of Influenza Vaccine: Dec 02, 2016 Seasonal Allergies Seasonal Allergies: No Past Medical History Surgeries: Yes (APPY) Respiratory: No Cardiac: Yes Coronary Artery Disease, Hypertension Neurological: No : No Reproductive Disorders: No 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 Sexually Transmitted Disease: No HIV/AIDS: No Genitourinary: Yes (STRESS INCONTINENCE) Gastrointestinal: No Musculoskeletal: Yes Chronic Back Pain Endocrine: Yes Diabetes, Insulin dep HEENT: Yes Loss of Vision: Left Hearing Impairment: Hearing Aide Left, Bilateral Hearing Aide Cancer: No Psychosocial: Yes Anxiety, Depression Integumentary: Yes (SORES ON BACK OF NECK) Blood Disorders: Yes (ANEMIA) Adverse Reaction/Blood Tranf: No Family Medical History Heart Disease, Hypertension Physical Exam Vital Signs Vital Signs - First Documented 08/29/17 18:56 Temp 97.0 Pulse 66 Resp 18 B/P (MAP) 159/95 (116) Pulse Ox 100 O2 Delivery Room Air Capillary Refill : Less Than 3 Seconds General Appearance: No Apparent Distress, WD/WN HEENT: PERRL/EOMI, Normal ENT Inspection, Pharynx Normal, Moist Mucous Membranes Neck: Full Range of Motion, Normal Inspection, Supple, Tender Lateral (right trapezius and right neck) Respiratory: Chest Non Tender, Lungs Clear, Normal Breath Sounds, No Accessory Muscle Use, No Respiratory Distress Cardiovascular: Regular Rate, Rhythm, No Edema, No JVD, No Murmur Gastrointestinal: Normal Bowel Sounds, Non Tender, Soft Extremity: Normal Capillary Refill, Normal Inspection, Non Tender, No Pedal Edema Neurologic/Psychiatric: Alert, Oriented x3 Skin: Normal Color, Warm/Dry Progress/Results/Core Measures Results/Orders Lab Results Laboratory Tests Test 08/29/17 19:10 Range/Units White Blood Count 4.1 L 4.3-11.0 10^3/uL Red Blood Count 3.96 L 4.35-5.85 10^6/uL Hemoglobin 12.6 11.5-16.0 G/DL Hematocrit 35 35-52 % Mean Corpuscular Volume 89 80-99 FL Mean Corpuscular Hemoglobin 32 25-34 PG Mean Corpuscular Hemoglobin Concent 36 32-36 G/DL Red Cell Distribution Width 12.3 10.0-14.5 % Platelet Count 185 130-400 10^3/uL Mean Platelet Volume 9.3 7.4-10.4 FL Neutrophils (%) (Auto) 68 42-75 % Lymphocytes (%) (Auto) 21 12-44 % Monocytes (%) (Auto) 10 0-12 % Eosinophils (%) (Auto) 1 0-10 % Basophils (%) (Auto) 0 0-10 % Neutrophils # (Auto) 2.8 1.8-7.8 X 10^3 Lymphocytes # (Auto) 0.9 L 1.0-4.0 X 10^3 Monocytes # (Auto) 0.4 0.0-1.0 X 10^3 Eosinophils # (Auto) 0.0 0.0-0.3 10^3/uL Basophils # (Auto) 0.0 0.0-0.1 10^3/uL Erythrocyte Sedimentation Rate 10 0-30 MM/HR Prothrombin Time 13.9 12.2-14.7 SEC INR Comment 1.1 0.8-1.4 Activated Partial Thromboplast Time 26 24-35 SEC Sodium Level 137 135-145 MMOL/L Potassium Level 4.2 3.6-5.0 MMOL/L Chloride Level 101 98-107 MMOL/L Carbon Dioxide Level 26 21-32 MMOL/L Anion Gap 10 5-14 MMOL/L Blood Urea Nitrogen 21 H 7-18 MG/DL Creatinine 0.82 0.60-1.30 MG/DL Estimat Glomerular Filtration Rate > 60 BUN/Creatinine Ratio 26 Glucose Level 266 H 70-105 MG/DL Calcium Level 9.6 8.5-10.1 MG/DL Magnesium Level 2.2 1.8-2.4 MG/DL Total Bilirubin 0.5 0.1-1.0 MG/DL Aspartate Amino Transf (AST/SGOT) 21 5-34 U/L Alanine Aminotransferase (ALT/SGPT) 15 0-55 U/L Alkaline Phosphatase 89 40-136 U/L Myoglobin 26.7 10.0-92.0 NG/ML Troponin I < 0.30 <0.30 NG/ML C-Reactive Protein High Sensitivity 0.06 0.00-0.50 MG/DL Total Protein 6.7 6.4-8.2 GM/DL Albumin 4.2 3.2-4.5 GM/DL My Orders Orders - YOUSIF BLANCO Cbc With Automated Diff (08/29/17 19:06) Magnesium (08/29/17 19:06) Chest 1 View, Ap/Pa Only (08/29/17 19:06) Ekg Tracing (08/29/17 19:06) Cardiac Profile 1 (08/29/17 19:06) Comprehensive Metabolic Panel (08/29/17 19:06) Myoglobin Serum (08/29/17 19:06) Protime With Inr (08/29/17 19:06) Partial Thromboplastin Time (08/29/17 19:06) O2 (08/29/17 19:06) Monitor-Rhythm Ecg Trace Only (08/29/17 19:06) Lipid Panel (08/30/17 06:00) Aspirin Chewable Tablet (Baby Aspirin Ch (08/29/17 19:15) Saline Lock/Iv-Start (08/29/17 19:06) Erythrocyte Sedimentation Rate (08/29/17 19:19) Hs C Reactive Protein (08/29/17 19:19) Medications Given in ED Current Medications Medications Dose Ordered Sig/Alfredo Route Start Time Stop Time Status Last Admin Dose Admin Aspirin 324 mg ONCE ONCE PO 08/29/17 19:15 08/29/17 19:16 DC 08/29/17 19:11 324 MG Vital Signs/I&O 08/29/17 08/29/17 18:56 19:10 Temp 97.0 Pulse 66 Resp 18 B/P (MAP) 159/95 (116) Pulse Ox 100 100 O2 Delivery Room Air Room Air Blood Pressure Mean: 116 Progress Progress Note : Time: 19:13 Progress Note Sudden onset of neck and shoulder pain bilaterally of uncertain significance. Could be an atypical anginal symptom. We'll look up her old Angiocath. We'll obtain a chest pain workup give her some aspirin and hold off on nitroglycerin as she's not having any pain right now. Her blood pressure has improved in the 140-160 range systolic just upon arrival. She's not having any pain right now. She has a little bit of tenderness on palpation of her right trapezius. Polymyalgia rheumatica is a possibility versus osteoarthritis. She does not denote any trauma or fall so imaging probably has no place of her neck. She's having no neurologic signs, weakness, paresthesia, anesthesia. NSAIDs might be a better option for her pain if we don't find a coronary origin. We will discuss with cardiology as far as whether or not do an overnight observation study with serial troponins and EKG based on the initial lab results and EKG. We 'll add a CRP and ESR. ED ACS score is 25 points. Not low risk. This patient is not a candidate for early discharge and should receive a standard chest pain evaluation with delayed troponin testing. Stress test in [address] Coker: No evidence of myocardial ischemia or infarction. Ejection fraction of 78%. Cardiac catheterization by Dr. Coker 2009 shows relatively diffuse mild to moderate plaquing. No significant focal stenosis. STENT in the left anterior descending artery is patent without significant obstructive disease. Normal global left ventricular systolic function with an EF of 65%. Initial ECG Impression Date: Aug 29, 2017 Initial ECG Impression Time: 19:27 Initial ECG Rate: 56 Initial ECG Rhythm: Normal Sinus Initial ECG Intervals: Normal Initial ECG Impression: Normal Initial ECG Comparisson: Unchanged Comment No ST elevation or depression. Diagnostic Imaging Diagonstic Imaging: Xray Plain Films/CT/US/NM/MRI: chest (1v) Reviewed: Reviewed by Me Departure Communication (Admissions) Time/Spoke to Admitting Phy: 20:12 Discussed case lab imaging x-ray and EKG with Dr. Recinos. Time/Spoke to Consulting Phy: 20:11 Discussed the case with Dr. Plummer and he would like us to consult Dr. Dillon in the morning and recommends overnight observation. Impression Primary Impression: Chest pain Qualified Codes: R07.9 - Chest pain, unspecified Additional Impression: Hypertension Qualified Codes: I10 - Essential (primary) hypertension Disposition: 09 ADMITTED INPATIENT Condition: Stable Admissions Decision to Admit Reason: Admit from ER (General) Decision to Admit/Date: Aug 29, 2017 Time/Decision to Admit Time: 20:13 Departure-Patient Inst. Referrals: YUNIOR RECINOS MD (PCP/Family) Primary Care Physician Copy Copies To 1: YUNIOR RECINOS MD; CHEN DILLON MD FACP [facility] YOUSIF BLANCO Aug 29, 2017 19:16
[2017-08-29 19:19] LABS: BASOPHILS % (AUTO) 0 % (0-10); EOSINOPHILS % (AUTO) 1 % (0-10); HEMATOCRIT 35 % (35-52); HEMOGLOBIN 12.6 G/DL (11.5-16.0); LYMPHOCYTES # (AUTO) 0.9 X 10^3 (1.0-4.0); LYMPHOCYTES % (AUTO) 21 % (12-44); MEAN CORPUSCULAR HEMOGLOBIN 32 PG (25-34); MEAN CORPUSCULAR HGB CONC 36 G/DL (32-36); MEAN CORPUSCULAR VOLUME 89 FL (80-99); MEAN PLATELET VOLUME 9.3 FL (7.4-10.4); MONOCYTES # (AUTO) 0.4 X 10^3 (0.0-1.0); MONOCYTES % (AUTO) 10 % (0-12); NEUTROPHILS # (AUTO) 2.8 X 10^3 (1.8-7.8); NEUTROPHILS % (AUTO) 68 % (42-75); PLATELET COUNT 185 10^3/uL (130-400); RED BLOOD COUNT 3.96 10^6/uL (4.35-5.85); RED CELL DISTRIBUTION WIDTH 12.3 % (10.0-14.5); WHITE BLOOD COUNT 4.1 10^3/uL (4.3-11.0)
[2017-08-29 19:32] LABS: INR 1.1 (0.8-1.4); PROTHROMBIN TIME PATIENT 13.9 SEC (12.2-14.7)
[2017-08-29 19:39] LABS: ALANINE AMINOTRANSFERASE 15 U/L (0-55); ALBUMIN 4.2 GM/DL (3.2-4.5); ALKALINE PHOSPHATASE 89 U/L (40-136); BILIRUBIN,TOTAL 0.5 MG/DL (0.1-1.0); BUN/CREATININE RATIO 26; CALCIUM 9.6 MG/DL (8.5-10.1); CARBON DIOXIDE 26 MMOL/L (21-32); CHLORIDE 101 MMOL/L (98-107); CREATININE SERUM 0.82 MG/DL (0.60-1.30); GFR ESTIMATED > 60; GLUCOSE 266 MG/DL (70-105); MAGNESIUM 2.2 MG/DL (1.8-2.4); POTASSIUM 4.2 MMOL/L (3.6-5.0); SODIUM 137 MMOL/L (135-145); TOTAL PROTEIN 6.7 GM/DL (6.4-8.2)
--- NOTE | 2017-08-29 19:43 | Diagnostic Imaging Report ---
INDICATION: Chest pain. COMPARISON: Comparison is made with a prior study from January 13, 2017. FINDINGS: There are chronic interstitial changes present within the lungs. When compared to the prior examination, there is no new pulmonary consolidation or infiltrate evident. There is no significant effusion. Heart size is enlarged, but central pulmonary vascularity appears normal without evidence of failure. The prior nodule within the right lung is not evident. IMPRESSION: 1. Chronic interstitial change within the lungs without acute cardiopulmonary process demonstrated. There are no findings of focal alveolar consolidation or effusion. The pulmonary vascularity appears normal. Dictated by: Dictated on workstation # [id number]
[2017-08-29 19:45] LABS: MYOGLOBIN SERUM 26.7 NG/ML (10.0-92.0)
[2017-08-29] MEDS ORDERED: meTOprolol TARTRATE 50 MG (LOPRESSOR) TAB ONE (21:24)
[2017-08-29] MEDS ORDERED: SIMvastatin 20 MG (ZOCOR) TAB ONE (21:24)
[2017-08-29] MEDS ORDERED: GABAPENTIN 100 MG (NEURONTIN) CAP ONE (21:24)
[2017-08-29] MEDS ORDERED: OLMESARTAN 20 MG (BENICAR) TABLET ONE (21:26)
[2017-08-29] MEDS ORDERED: meTOprolol TARTRATE 50 MG (LOPRESSOR) TAB PO ONE (21:30)
[2017-08-29] MEDS ORDERED: GABAPENTIN 100 MG (NEURONTIN) CAP PO ONE (21:30)
[2017-08-29] MEDS ORDERED: SIMvastatin 20 MG (ZOCOR) TAB PO ONE (21:30)
[2017-08-29] MEDS ORDERED: ACETAMINOPHEN 500 MG TAB (TYLENOL) PO PRN (21:30)
[2017-08-29] MEDS ORDERED: OLMESARTAN 20 MG (BENICAR) TABLET PO ONE (21:30)
[2017-08-29] MEDS ORDERED: NITROGLYCERIN 0.4 MG SL TABS BTL 25'S SL PRN (23:30)
[2017-08-29] MEDS ORDERED: morphine INJ 4 MG/ML 1 ML (VIAL/SYRINGE) IVP PRN (23:30)
[2017-08-30] VITALS (9 sets, daily range): BP systolic 140–172; BP diastolic 59–109
[2017-08-30] MEDS ORDERED: inSUlin ASPART (NovoLOG) 1 UNIT/0.01 ML (CHARGE PER UNIT) SC SCH (06:00)
[2017-08-30 06:44] LABS: BASOPHILS % (AUTO) 1 % (0-10); EOSINOPHILS # (AUTO) 0.1 10^3/uL (0.0-0.3); EOSINOPHILS % (AUTO) 2 % (0-10); HEMATOCRIT 35 % (35-52); LYMPHOCYTES # (AUTO) 0.9 X 10^3 (1.0-4.0); LYMPHOCYTES % (AUTO) 25 % (12-44); MEAN CORPUSCULAR HEMOGLOBIN 31 PG (25-34); MEAN CORPUSCULAR HGB CONC 34 G/DL (32-36); MEAN CORPUSCULAR VOLUME 90 FL (80-99); MONOCYTES # (AUTO) 0.4 X 10^3 (0.0-1.0); MONOCYTES % (AUTO) 12 % (0-12); NEUTROPHILS # (AUTO) 2.3 X 10^3 (1.8-7.8); NEUTROPHILS % (AUTO) 61 % (42-75); PLATELET COUNT 186 10^3/uL (130-400); RED CELL DISTRIBUTION WIDTH 12.5 % (10.0-14.5); WHITE BLOOD COUNT 3.7 10^3/uL (4.3-11.0)
[2017-08-30 07:06] LABS: BUN/CREATININE RATIO 24; CALCIUM 9.1 MG/DL (8.5-10.1); CARBON DIOXIDE 25 MMOL/L (21-32); CHLORIDE 102 MMOL/L (98-107); CHOLESTEROL 154 MG/DL (< 200); GFR ESTIMATED > 60; GLUCOSE 332 MG/DL (70-105); HDL CHOLESTEROL 60 MG/DL (40-60); POTASSIUM 4.3 MMOL/L (3.6-5.0); SODIUM 136 MMOL/L (135-145); TRIGLYCERIDES 63 MG/DL (<150); VLDL CHOLESTEROL 13 MG/DL (5-40)
--- NOTE | 2017-08-30 08:01 | Consultation-Cardiology ---
HPI-Cardiology Cardiology Consultation: Date of Consultation 08/30/17 Time Seen by Provider: 09:35 Date of Admission 08-29-17 Attending Physician Yunior Recinos MD Admitting Physician Yunior Recinos MD Consulting Physician Omayra Dillon MD HPI: Chief Complaint: Hypertension Ms. Hearn is an 86 year old female who has been admitted to ICU 4 from the ED. She reports she was sitting in her chair knitting yesterday. She had a sudden onset of pain between her shoulder blades which radiated across her shoulders. It lasted for several hours with a feeling of fullness in her throat. She states the shoulder discomfort is worse with changes in position and movement. She states she went to Urgent Care for eval and they found her BP to be high and directed her to the ED. She reports her BP was 200 systolic at Urgent Care. She reports no CP, palpitations, syncope, SOB or near syncope. No LE edema. No n/v/d. No fever or chills. She reports she continues to have back pain which has improved with a warm blanket, but is still uncomfortable with positional changes. Review of Systems-Cardiology Review of Systems Constitutional: No chills, No fever, No weight loss, No weight gain Eyes: No vision change Ears/Nose/Throat: No epistaxis, No recent hearing loss Respiratory: As described under HPI Cardiovascular: As described under HPI Gastrointestinal: No constipation, No diarrhea, No nausea, No vomiting Genitourinary: No dysuria, No hematuria Musculoskeletal: As describe under HPI Skin: No rash, No ulcerations Psychiatric/Neurological: No seizure, No focal weakness Hematologic: No bleeding abnormalities BRS-Gtkqdt-Bdneiz Hx Patient Social History Alcohol Use: Denies Use Recreational Drug Use: No Smoking Status: Never a Smoker 2nd Hand Smoke Exposure: No Recent Foreign Travel: No Recent Infectious Disease Expo: No Hospitalization with Isolation: Denies Physical Abuse Screen: No Sexual Abuse: No Immunizations Up To Date Tetanus Booster (TDap): Less than 5yrs Date of Pneumonia Vaccine: Dec 06, 2011 Date of Influenza Vaccine: Dec 02, 2016 Past Medical History PMH As described under Assessment. Family Medical History Family Medical History: She reports her sister had CAD and an AK. Allergies and Home Medications Allergies Coded Allergies: NKANo Known Allergies (Verified Allergy, Unknown, 03/31/17) Home Medications Aspirin 81 Mg Tablet.dr, 81 MG PO HS, (Reported) Calcium Carbonate/Vitamin D3 1 Each Tablet, 1 TAB PO DAILY, (Reported) Doxazosin Mesylate 1 Mg Tablet, 1 MG PO HS Prescribed by: YUNIOR RECINOS on 08/30/17 0953 Gabapentin 100 Mg Capsule, 100 MG PO TID, (Reported) Hydrochlorothiazide 12.5 Mg Capsule, 12.5 MG PO DAILY, (Reported) Insulin Aspart 100 Unit/1 Ml Susp, SQ AC, (Reported) Insulin Glargine,Hum.rec.anlog 100 Unit/1 Ml Vial, 17 UNITS SQ DAILY, (Reported) Metoprolol Tartrate 50 Mg Tablet, 50 MG PO BID, (Reported) Multivitamin 1 Each Tablet, 1 TAB PO DAILY, (Reported) Olmesartan Medoxomil 40 Mg Tablet, 40 MG PO DAILY, (Reported) RECEIVES FROM DEIRDRE Sertraline HCl 50 Mg Tablet, 50 MG PO HS, (Reported) Simvastatin 20 Mg Tablet, 20 MG PO HS, (Reported) LAST PICKED UP 07-07-17 #30 Patient Home Medication List Home Medication List Reviewed: Yes Physical Exam-Cardiology Physical Exam Vital Signs/I&O Capillary Refill : Less Than 3 Seconds Constitutional: AAO x 3, well-developed, well-nourished HEENT: PERRL, hearing is well preserved Neck: No carotid bruit; carotid pulses are 2 + bilaterally Respiratory: No accessory muscle use, No respiratory distress; chest expansion is symmetric, chest is bilaterally symmetric, lungs clear to auscultation Cardiovascular: regular rate-rhythm; No JVD; S1 and S2 Gastrointestinal: No tender; soft, round, audible bowel sounds Extremities: no lower extremity edema bilateral Neurologic/Psychiatric: grossly intact Skin: No rash, No ulcerations Data Review Labs Radiology NAME: ARELY HEARN [facility] REC#: [id number] PT STATUS: REG ER : 1930 PHYSICIAN: YOUSIF BLANCO MD ADMIT DATE: 08/29/17/ER Signed Date of Exam: 08/29/17 CHEST 1 VIEW, AP/PA ONLY INDICATION: Chest pain. COMPARISON: Comparison is made with a prior study from January 13, 2017. FINDINGS: There are chronic interstitial changes present within the lungs. When compared to the prior examination, there is no new pulmonary consolidation or infiltrate evident. There is no significant effusion. Heart size is enlarged, but central pulmonary vascularity appears normal without evidence of failure. The prior nodule within the right lung is not evident. IMPRESSION: 1. Chronic interstitial change within the lungs without acute cardiopulmonary process demonstrated. There are no findings of focal alveolar consolidation or effusion. The pulmonary vascularity appears normal. Dictated by: Dictated on workstation # [id number] Dict: 08/29/171937 Trans: 08/29/171947 Interpreted by: MARIA R BUSTAMANTE MD Electronically signed by: MARIA R BUSTAMANTE MD 08/29/171947 ECG Impression ECG Initial ECG Rhythm: Normal Sinus A/P-Cardiology Assessment/Admission Diagnosis Uncontrolled hypertension Back pain with radiculopathy - management per medical services Bilateral leg weakness of undetermined etiology - segmental pressures of July 2017 do not suggest signif PAD Diffuse mild to moderate coronary artery disease per cardiac catheterization of June [address]. [address] stent in the left anterior descending artery was widely patent on last cardiac catheterization of June 2009. Left ventricular ejection fraction was 65%. Left end diastolic pressure was normal. 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 Normal global left ventricular systolic function with an ejection fraction of 65 %. Normal left ventricular end-diastolic pressure per cardiac catheterization of 06/15/2009. 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 Hyperlipidemia being treated with simvastatin. Osteoporosis. Patent foramen ovale without significant intra-cardiac shunt. The patient has opted for conservative management only. Echocardiogram of May 30, 2017 showed wall thickness is mildly increased. Concentric LVH. LVEF 55-60%. There were no regional wall motion abnormalities. Features are consistent with a pseudomonal left ventricular villing pattern, with concomitant obnromal relaxation and increased filling pressure (Grade 2 diastolic dysfunction). Mod calcified annulus. Mild MR. Aortic valve thickening, consistent with sclerosis. PASP estimated to be 30 mmHg. Mild TR. Mild carotid arterial disease being followed by Dr. Cortez's office. 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 Norvasc may cause worsening of swelling. Therefore, we will start low dose doxazosin at hs for BP contol Advise f/u next week in our office OK to discharge home from cardiac stand point We would like to thank Dr. Recinos for this referral I have spoke with Dr. Recinos Clinical Quality Measures DVT/VTE Risk/Contraindication: Risk Factor Score Per Nursin RFS Level Per Nursing on Admit: 2=Moderate TOM MARQUES Aug 30, 2017 08:01
[2017-08-30] MEDS ORDERED: inSUlin DETERMIR 1 UNIT/0.01 ML (LEVEMIR) CHARGE PER UNIT SQ SCH (09:00)
[2017-08-30] MEDS ORDERED: GABAPENTIN 100 MG (NEURONTIN) CAP PO SCH (09:00)
[2017-08-30] MEDS ORDERED: ASPIRIN 81 MG CHEW (CHILDREN'S ASA) PO SCH (09:00)
[2017-08-30] MEDS ORDERED: SERT50TA9 PO (09:36)
--- NOTE | 2017-08-30 09:37 | Short Stay Summary ---
History of Present Illness History of Present Illness Reason for visit/HPI PT IS AN 86 Y/O FEMALE WHO IS WELL KNOWN TO ME FROM CLINIC. SHE REPORTS THAT SHE HAS BEEN ACTIVE OUTSIDE OVER THE PAST FEW DAYS, TRIMMING HEDGES AND CELIA BUSHES AND PICKING UP STICKS FROM THE GROUND. SHE STATES THAT SHE STARTED TO HAVE MID BACK PAIN - RADIATING TO HER SHOULDERS AND THEN TENSION UP INTO HER NECK. SHE STATES THAT SHE HAD A RELATIVE WHO HAD THOSE SAME SYMPTOMS WHO ENDED UP WITH A HEART ATTACK AND SHE DECIDED TO GO TO THE URGENT CARE TO SEE IF THIS COULD BE WHAT WAS HAPPENING TO HER. SHE DROVE HERSELF TO [facility], WAS TOLD THAT HER BLOOD PRESSURE WAS EXTREMELY ELEVATED IN THE 190-200/100'S AND SHE WAS TOLD TO GO TO THE EMERGENCY ROOM. SO, SHE DROVE HERSELF FROM THE URGENT CARE TO THE HOSPITAL ER. Date of Admission Aug 29, 2017 at 20:26 Date of Discharge 08/29/17 Time Seen by Provider: 09:00 Attending Physician Yunior Recinos MD Admitting Physician Yunior Recinos MD Consult DR. KEENE Allergies and Home Medications Allergies Coded Allergies: NATANo Known Allergies (Verified Allergy, Unknown, 03/31/17) Home Medications Aspirin 81 Mg Tablet.dr, 81 MG PO HS, (Reported) Calcium Carbonate/Vitamin D3 1 Each Tablet, 1 TAB PO DAILY, (Reported) Cyclobenzaprine HCl 5 Mg Tablet, 2.5 MG PO TID Prescribed by: YUNIOR RECINOS on 04/02/17 0918 Gabapentin 100 Mg Capsule, 100 MG PO BID, (Reported) Hydrochlorothiazide 12.5 Mg Capsule, 12.5 MG PO DAILY, (Reported) Insulin Aspart 100 Unit/1 Ml Susp, SQ SLIDING/SCALE, (Reported) Insulin Glargine,Hum.rec.anlog 100 Unit/1 Ml Vial, 10 UNITS SQ DAILY, (Reported) Metoprolol Tartrate 50 Mg Tablet, 50 MG PO BID, (Reported) Olmesartan Medoxomil 40 Mg Tablet, 40 MG PO DAILY, (Reported) RECEIVES FROM DEIRDRE Simvastatin 20 Mg Tablet, 20 MG PO HS, (Reported) Patient Home Medication List Home Medication List Reviewed: Yes Past [id number]-Yqnipl Hx Patient Social History Marrital Status: Living Status: LIVES IN OWN HOME ALONE Employed/Student: retired Alcohol Use: Denies Use Recreational Drug Use: No Smoking Status: Never a Smoker 2nd Hand Smoke Exposure: No Physical Abuse Screen: No Sexual Abuse: No Recent Foreign Travel: No Contact w/other who traveled: No Recent Hopitalizations: No Recent Infectious Disease Expo: No Immunizations Up To Date Tetanus Booster (TDap): Less than 5yrs Pediatric: Yes Date of Pneumonia Vaccine: Dec 06, 2011 Date of Influenza Vaccine: Dec 02, 2016 Seasonal Allergies Seasonal Allergies: No Surgeries Yes (APPY) Respiratory No Cardiovascular Yes (cardiac stent x1.) Coronary Artery Disease, Hypertension Neurological No Reproductive System : No Hx Reproductive Disorders: No Sexually Transmitted Disease: No HIV/AIDS: No 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 Genitourinary Yes (STRESS INCONTINENCE) Gastrointestinal No Musculoskeletal Yes Chronic Back Pain Endocrine History of Endocrine Disorders: Yes Endocrine Disorders: Diabetes, Insulin dep HEENT History of HEENT Disorders: Yes Loss of Vision: Denies Hearing Impairment: Bilateral Hearing Aide Cancer No Psychosocial History of Psychiatric Problem: Yes Behavioral Health Disorders: Anxiety, Depression Integumentary History of Skin or Integumenta: Yes (SORES ON BACK OF NECK) Blood Transfusions History of Blood Disorders: Yes (ANEMIA) Adverse Reaction to a Blood Tr: No Reviewed Nursing Assessment Reviewed/Agree w Nursing PMH: Yes Family Medical History Significant Family History: Heart Disease, Hypertension Constitutional: No chills, No malaise, No weakness EENTM: No hoarseness, No mouth pain, No throat pain Respiratory: No cough, No dyspnea on exertion, No short of breath Cardiovascular: chest pain; No edema; Hx of Intervention Gastrointestinal: No abdominal pain, No constipation, No diarrhea, No nausea, No vomiting Genitourinary: no symptoms reported : No Musculoskeletal: back pain (MID TO UPPER BACK ON RIGHT); No muscle stiffness, No muscle weakness Skin: no symptoms reported Psychiatric/Neurological: Anxiety; Denies Headache, Denies Numbness, Denies Weakness All Other Systems Reviewed Negative Unless Noted: Yes Physical Exam Vital Signs Vital Signs - First Documented 08/29/17 18:56 Temp 97.0 Pulse 66 Resp 18 B/P (MAP) 159/95 (116) Pulse Ox 100 O2 Delivery Room Air Capillary Refill : Less Than 3 Seconds General Appearance: No Apparent Distress Eyes: Bilateral Eye Normal Inspection, Bilateral Eye PERRL, Bilateral Eye EOMI HEENT: PERRL/EOMI Neck: Full Range of Motion, Supple Respiratory: Chest Non Tender, Lungs Clear, Normal Breath Sounds, No Accessory Muscle Use, No Respiratory Distress Cardiovascular: Regular Rate, Rhythm, No Edema Gastrointestinal: Normal Bowel Sounds, No Organomegaly, Non Tender, Soft Rectal: Deferred Back: Vertebral Tenderness (AROUND T5/6, T6/7WITH TENDERNESS TO RIGHT OF SPINE OVER MUSCLES/FACET JOINT ON RIGHT) Extremity: Normal Range of Motion, No Calf Tenderness, No Pedal Edema Neurologic/Psychiatric: Alert, Oriented x3, No Motor/Sensory Deficits, Normal 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, 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 Norm as Tested Skin: Normal Color, Warm/Dry Lymphatic: No Adenopathy Clinical Quality Measures Admission Status Admission Status: Observation DVT/VTE Risk/Contraindication: VTE Present on Admission: No Risk Factor Score Per Nursin RFS Level Per Nursing on Admit: 2=Moderate Contraindications-Pharm: Other *list below* Contraindications-Mechi: Other *list below* Other: DISCHARGE TO HOME THIS MORNING - NO NEED FOR VTE PROPHYLAXIS Short Stay Diagnosis Discharge Diagnosis-Short Stay Admission Diagnosis: HYPERTENSIVE URGENCY CHEST PAIN THORACIC BACK PAIN DIABETES MELLITUS HYPERLIPIDEMIA PERIPHERAL NEUROPATHY FACET ARTHROPATHY Final Discharge Diagnosis: HYPERTENSIVE URGENCY CHEST PAIN THORACIC BACK PAIN DIABETES MELLITUS HYPERLIPIDEMIA PERIPHERAL NEUROPATHY FACET ARTHROPATHY Conclusion Labs Laboratory Tests 08/29/17 19:10: White Blood Count 4.1L, Red Blood Count 3.96L, Hemoglobin 12.6, Hematocrit 35, Mean Corpuscular Volume 89, Mean Corpuscular Hemoglobin 32, Mean Corpuscular Hemoglobin Concent 36, Red Cell Distribution Width 12.3, Platelet Count 185, Mean Platelet Volume 9.3, Neutrophils (%) (Auto) 68, Lymphocytes (%) (Auto) 21, Monocytes (%) (Auto) 10, Eosinophils (%) (Auto) 1, Basophils (%) (Auto) 0, Neutrophils # (Auto) 2.8, Lymphocytes # (Auto) 0.9L, Monocytes # (Auto) 0.4, Eosinophils # (Auto) 0.0, Basophils # (Auto) 0.0, Erythrocyte Sedimentation Rate 10, Prothrombin Time 13.9, INR Comment 1.1, Activated Partial Thromboplast Time 26, Sodium Level 137, Potassium Level 4.2, Chloride Level 101, Carbon Dioxide Level 26, Anion Gap 10, Blood Urea Nitrogen 21H, Creatinine 0.82, Estimat Glomerular Filtration Rate > 60, BUN/Creatinine Ratio 26, Glucose Level 266H, Calcium Level 9.6, Magnesium Level 2.2, Total Bilirubin 0.5, Aspartate Amino Transf (AST/SGOT) 21, Alanine Aminotransferase (ALT/SGPT) 15, Alkaline Phosphatase 89, Myoglobin 26.7, Troponin I < 0.30, C-Reactive Protein High Sensitivity 0.06, Total Protein 6.7, Albumin 4.2 08/29/17 21:34: Glucometer 241H 08/30/17 05:27: Glucometer 304H 08/30/17 06:00: White Blood Count 3.7L, Red Blood Count 3.90L, Hemoglobin 12.0, Hematocrit 35, Mean Corpuscular Volume 90, Mean Corpuscular Hemoglobin 31, Mean Corpuscular Hemoglobin Concent 34, Red Cell Distribution Width 12.5, Platelet Count 186, Mean Platelet Volume 10.0, Neutrophils (%) (Auto) 61, Lymphocytes (%) (Auto) 25 , Monocytes (%) (Auto) 12, Eosinophils (%) (Auto) 2, Basophils (%) (Auto) 1, Neutrophils # (Auto) 2.3, Lymphocytes # (Auto) 0.9L, Monocytes # (Auto) 0.4, Eosinophils # (Auto) 0.1, Basophils # (Auto) 0.0 08/30/17 06:20: Sodium Level 136, Potassium Level 4.3, Chloride Level 102, Carbon Dioxide Level 25, Anion Gap 9, Blood Urea Nitrogen 19H, Creatinine 0.80, Estimat Glomerular Filtration Rate > 60, BUN/Creatinine Ratio 24, Glucose Level 332H, Calcium Level 9.1, Triglycerides Level 63, Cholesterol Level 154, LDL Cholesterol Direct 78, VLDL Cholesterol 13, HDL Cholesterol 60 08/30/17 08:54: Glucometer 288H Conclusion/Plan HYPERTENSIVE URGENCY - ADMISSION TO THE HOSPITAL, CONSULTATION TO DR. KEENE - SHE IS ON MAX DOSE OF BETA SEB DUE TO HER LOW HEART RATE IN THE 50'S, BENICAR IS AT MAXIMUM DOSE - AND HCTZ IS AT THE MAXIMUM DOSE I WOULD LIKE TO SEE PT TAKING BASED ON AGE AND RENAL FUNCTION. THEREFORE, I WILL DEFER CHOICE OF 4TH ANTIHYPERTENSIVE TO CARDIOLOGY. CHEST PAIN - NON-CARDIAC, SERIAL ENZYMES NEGATIVE, ECG NEGATIVE. THORACIC BACK PAIN DUE TO FACET ARTHROPATHY - DISCUSSED WITH PT AND HER SON - USE HEAT TO BACK - NOT A HEATING PAD - AVOID SLEEPING ON SIDE WHILE IN BED IF ABLE, IF NOT IMPROVING, WILL REFER TO PHYSICAL THERAPY. DIABETES MELLITUS - RESUME HOME MEDICATIONS. HYPERLIPIDEMIA - RESUME HOME MEDICATIONS. PERIPHERAL NEUROPATHY - ON GABAPENTIN - RESUME HOME MEDICATIONS AT HOME THIS AFTERNOON. PT TO MAKE APPT IN MY OFFICE IN ABOUT A WEEK FOR FOLLOW UP FROM HOSPITAL. YUNIOR RECINOS MD Aug 30, 2017 09:37
[2017-08-30] MEDS ORDERED: MULT-35 PO (09:51)
--- NOTE | 2017-08-30 09:51 | Discharge Inst-Simple/Standard ---
Discharge Inst-Standard Patient Instructions/Follow Up Plan of Care/Instructions/FU: NEED APPT WITH [facility] IN 1 WK FROM DC Activity as Tolerated: Yes Discharge Diet: ADA Diet YUNIOR JOYNER MD Aug 30, 2017 09:50
[2017-08-30] MEDS ORDERED: DOXA1TAB PO (09:53)
--- NOTE | 2017-08-30 10:15 | Consultation-Cardiology ---
HPI-Cardiology Cardiology Consultation: Date of Consultation 08/30/17 Time Seen by Provider: 09:50 Date of Admission Attending Physician Yunior Recinos MD Admitting Physician Yunior Recinos MD Consulting Physician CHEN KEENE MD, MA, FACP, FACC, FSCAI, CCDS HPI: Chief Complaint: Hypertension Ms. Hearn is an 86 year old female who has been admitted to ICU 4 from the ED. She reports she was sitting in her chair knitting yesterday. She had a sudden onset of pain between her shoulder blades which radiated across her shoulders. It lasted for several hours with a feeling of fullness in her throat. She states the shoulder discomfort is worse with changes in position and movement. She states she went to Urgent Care for eval and they found her BP to be high and directed her to the ED. She reports her BP was 200 systolic at Urgent Care. She reports no CP, palpitations, syncope, SOB or near syncope. No LE edema. No n/v/d. No fever or chills. She reports she continues to have back pain which has improved with a warm blanket, but is still uncomfortable with positional changes. Review of Systems-Cardiology Review of Systems Constitutional: No chills, No fever, No weight loss, No weight gain Eyes: No vision change Ears/Nose/Throat: No epistaxis, No recent hearing loss Respiratory: As described under HPI Cardiovascular: As described under HPI Gastrointestinal: No constipation, No diarrhea, No nausea, No vomiting Genitourinary: No dysuria, No hematuria : No Musculoskeletal: As describe under HPI Skin: No rash, No ulcerations Psychiatric/Neurological: No seizure, No focal weakness Hematologic: No bleeding abnormalities All Other Systems Reviewed Negative Unless Noted: Yes WHF-Soidfk-Mnteae Hx Patient Social History Marrital Status: Living Status: LIVES IN OWN HOME ALONE Employed/Student: retired Alcohol Use: Denies Use Recreational Drug Use: No Smoking Status: Never a Smoker 2nd Hand Smoke Exposure: No Recent Foreign Travel: No Recent Infectious Disease Expo: No Hospitalization with Isolation: Denies Physical Abuse Screen: No Sexual Abuse: No Immunizations Up To Date Tetanus Booster (TDap): Less than 5yrs Date of Pneumonia Vaccine: Dec 06, 2011 Date of Influenza Vaccine: Dec 02, 2016 Past Medical History PMH As described under Assessment. Family Medical History Family Medical History: She reports her sister had CAD and an IL. Allergies and Home Medications Allergies Coded Allergies: Jona Known Allergies (Verified Allergy, Unknown, 03/31/17) Home Medications Aspirin 81 Mg Tablet.dr, 81 MG PO HS, (Reported) Calcium Carbonate/Vitamin D3 1 Each Tablet, 1 TAB PO DAILY, (Reported) Doxazosin Mesylate 1 Mg Tablet, 1 MG PO HS Prescribed by: YUNIOR RECINOS on 08/30/17 0953 Gabapentin 100 Mg Capsule, 100 MG PO TID, (Reported) Hydrochlorothiazide 12.5 Mg Capsule, 12.5 MG PO DAILY, (Reported) Insulin Aspart 100 Unit/1 Ml Susp, SQ AC, (Reported) Insulin Glargine,Hum.rec.anlog 100 Unit/1 Ml Vial, 17 UNITS SQ DAILY, (Reported) Metoprolol Tartrate 50 Mg Tablet, 50 MG PO BID, (Reported) Multivitamin 1 Each Tablet, 1 TAB PO DAILY, (Reported) Olmesartan Medoxomil 40 Mg Tablet, 40 MG PO DAILY, (Reported) RECEIVES FROM DEIRDRE Sertraline HCl 50 Mg Tablet, 50 MG PO HS, (Reported) Simvastatin 20 Mg Tablet, 20 MG PO HS, (Reported) LAST PICKED UP 07-07-17 #30 Patient Home Medication List Home Medication List Reviewed: Yes Physical Exam-Cardiology Physical Exam Vital Signs/I&O 08/29/17 08/29/17 08/30/17 08/30/17 23:00 23:56 00:00 00:00 Temp 97.6 Pulse 50 55 50 Resp 14 B/P (MAP) 167/65 (99) 155/69 (97) 153/60 (91) Pulse Ox 98 98 O2 Delivery Room Air Room Air Room Air Room Air 08/30/17 08/30/17 08/30/17 08/30/17 01:00 01:00 02:00 03:00 Pulse 53 53 59 52 B/P (MAP) 169/66 (100) 151/79 (103) 140/59 (86) O2 Delivery Room Air Room Air Room Air 08/30/17 08/30/17 08/30/17 08/30/17 04:00 04:00 04:07 05:00 Temp 98.2 Pulse 50 52 B/P (MAP) 159/109 (126) 159/98 (118) Pulse Ox 98 O2 Delivery Room Air Room Air Room Air 08/30/17 08/30/17 08/30/17 08/30/17 07:00 08:34 08:39 08:55 Temp 98.3 Pulse 53 67 Resp 18 B/P (MAP) 172/83 (112) Pulse Ox 100 O2 Delivery Room Air Room Air Room Air 08/30/17 08:55 B/P (MAP) 163/72 (102) 08/30/17 00:00 Intake Total 575 ml Output Total 300 ml Balance 275 ml Capillary Refill : Less Than 3 Seconds Constitutional: AAO x 3, well-developed, well-nourished HEENT: PERRL, hearing is well preserved Neck: No carotid bruit; carotid pulses are 2 + bilaterally Respiratory: No accessory muscle use, No respiratory distress; chest expansion is symmetric, chest is bilaterally symmetric, lungs clear to auscultation Cardiovascular: regular rate-rhythm; No JVD; S1 and S2 Gastrointestinal: No tender; soft, round, audible bowel sounds Extremities: no lower extremity edema bilateral Neurologic/Psychiatric: grossly intact Skin: No rash, No ulcerations Data Review Labs Laboratory Tests 08/29/17 19:10: White Blood Count 4.1L, Red Blood Count 3.96L, Hemoglobin 12.6, Hematocrit 35, Mean Corpuscular Volume 89, Mean Corpuscular Hemoglobin 32, Mean Corpuscular Hemoglobin Concent 36, Red Cell Distribution Width 12.3, Platelet Count 185, Mean Platelet Volume 9.3, Neutrophils (%) (Auto) 68, Lymphocytes (%) (Auto) 21, Monocytes (%) (Auto) 10, Eosinophils (%) (Auto) 1, Basophils (%) (Auto) 0, Neutrophils # (Auto) 2.8, Lymphocytes # (Auto) 0.9L, Monocytes # (Auto) 0.4, Eosinophils # (Auto) 0.0, Basophils # (Auto) 0.0, Erythrocyte Sedimentation Rate 10, Prothrombin Time 13.9, INR Comment 1.1, Activated Partial Thromboplast Time 26, Sodium Level 137, Potassium Level 4.2, Chloride Level 101, Carbon Dioxide Level 26, Anion Gap 10, Blood Urea Nitrogen 21H, Creatinine 0.82, Estimat Glomerular Filtration Rate > 60, BUN/Creatinine Ratio 26, Glucose Level 266H, Calcium Level 9.6, Magnesium Level 2.2, Total Bilirubin 0.5, Aspartate Amino Transf (AST/SGOT) 21, Alanine Aminotransferase (ALT/SGPT) 15, Alkaline Phosphatase 89, Myoglobin 26.7, Troponin I < 0.30, C-Reactive Protein High Sensitivity 0.06, Total Protein 6.7, Albumin 4.2 08/29/17 21:34: Glucometer 241H 08/30/17 05:27: Glucometer 304H 08/30/17 06:00: White Blood Count 3.7L, Red Blood Count 3.90L, Hemoglobin 12.0, Hematocrit 35, Mean Corpuscular Volume 90, Mean Corpuscular Hemoglobin 31, Mean Corpuscular Hemoglobin Concent 34, Red Cell Distribution Width 12.5, Platelet Count 186, Mean Platelet Volume 10.0, Neutrophils (%) (Auto) 61, Lymphocytes (%) (Auto) 25 , Monocytes (%) (Auto) 12, Eosinophils (%) (Auto) 2, Basophils (%) (Auto) 1, Neutrophils # (Auto) 2.3, Lymphocytes # (Auto) 0.9L, Monocytes # (Auto) 0.4, Eosinophils # (Auto) 0.1, Basophils # (Auto) 0.0 08/30/17 06:20: Sodium Level 136, Potassium Level 4.3, Chloride Level 102, Carbon Dioxide Level 25, Anion Gap 9, Blood Urea Nitrogen 19H, Creatinine 0.80, Estimat Glomerular Filtration Rate > 60, BUN/Creatinine Ratio 24, Glucose Level 332H, Calcium Level 9.1, Triglycerides Level 63, Cholesterol Level 154, LDL Cholesterol Direct 78, VLDL Cholesterol 13, HDL Cholesterol 60 08/30/17 08:54: Glucometer 288H A/P-Cardiology Assessment/Admission Diagnosis Uncontrolled hypertension Back pain with radiculopathy - management per medical services Bilateral leg weakness of undetermined etiology - segmental pressures of July 2017 do not suggest signif PAD Diffuse mild to moderate coronary artery disease per cardiac catheterization of June [address]. [address] stent in the left anterior descending artery was widely patent on last cardiac catheterization of June 2009. Left ventricular ejection fraction was 65%. Left end diastolic pressure was normal. MPI of 11-15-15 showed no significant ischemia or infarction and LVEF was 78% History of retinal hemorrhages which have been treated by her hospital staff pharmacist. 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 Normal global left ventricular systolic function with an ejection fraction of 65 %. Normal left ventricular end-diastolic pressure per cardiac catheterization of 06/15/2009. 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 Hyperlipidemia being treated with simvastatin. Osteoporosis. Patent foramen ovale without significant intra-cardiac shunt. The patient has opted for conservative management only. Echocardiogram of May 30, 2017 showed wall thickness is mildly increased. Concentric LVH. LVEF 55-60%. There were no regional wall motion abnormalities. Features are consistent with a pseudomonal left ventricular villing pattern, with concomitant obnromal relaxation and increased filling pressure (Grade 2 diastolic dysfunction). Mod calcified annulus. Mild MR. Aortic valve thickening, consistent with sclerosis. PASP estimated to be 30 mmHg. Mild TR. Mild carotid arterial disease being followed by Dr. Cortez's office. Generalized malaise and tiredness of undetermined etiology, chronic, stable Thyromegaly, stated to be benign, being followed by Dr Pimentel Discussion and Recomendations Back discomfort is likely musculoskeletal. There is no evidence of ACS We are adding doxazosin for better bp control Advise f/u next week in our office We discussed her case with Dr Recinos Clinical Quality Measures DVT/VTE Risk/Contraindication: VTE Present on Admission: No Risk Factor Score Per Nursin RFS Level Per Nursing on Admit: 2=Moderate Contraindications-Pharm: Other *list below* Contraindications-Mechi: Other *list below* Other: DISCHARGE TO HOME THIS MORNING - NO NEED FOR VTE PROPHYLAXIS CHEN KEENE MD [facility] Aug 30, 2017 10:15
== END 2017-08-30 09:53 | disposition home or self-care (01) ==
LOC: EDUNIT# 18:22 → ER 18:23 → UNDOADMOB 20:26 → ICU 20:26 → EDPENDDISTM 08-30 10:15 → UNDODISOB 08-30 11:00
PROVIDERS: ADMIT Family Medicine; ATTEND Family Medicine
DX: I16.0 Hypertensive urgency (principal); R07.9 Chest pain, unspecified; R53.1 Weakness; M54.6 Pain in thoracic spine; I25.10 Atherosclerotic heart disease of native coronary artery without angina pectoris; E78.5 Hyperlipidemia, unspecified; E11.42 Type 2 diabetes mellitus with diabetic polyneuropathy; F32.9 Major depressive disorder, single episode, unspecified; F41.9 Anxiety disorder, unspecified; M12.9 Arthropathy, unspecified; M81.0 Age-related osteoporosis without current pathological fracture; I77.89 Other specified disorders of arteries and arterioles; R53.81 Other malaise; E01.0 Iodine-deficiency related diffuse (endemic) goiter; Z79.4 Long term (current) use of insulin; Z95.5 Presence of coronary angioplasty implant and graft
CPT/HCPCS: 36415; 71045; 80048; 80053; 80061; 82962; 83735; 83874; 84484; 85025; 85610; 85652; 85730; 86141; 93005; 93041

== ENCOUNTER → 2017-09-03 | Outpatient (CLI) | payer MEDICARE ==
[~2017-09-03] MED LIST changes: +CEPH-506 PO; +CEPH-507 PO; +DOXA1TAB PO; +MULT-35 PO
[2017-09-03 09:07] LABS: BASOPHILS % (AUTO) 1 % (0-10); EOSINOPHILS # (AUTO) 0.1 10^3/uL (0.0-0.3); EOSINOPHILS % (AUTO) 3 % (0-10); HEMATOCRIT 33 % (35-52); HEMOGLOBIN 11.3 G/DL (11.5-16.0); LYMPHOCYTES # (AUTO) 0.6 X 10^3 (1.0-4.0); LYMPHOCYTES % (AUTO) 22 % (12-44); MEAN CORPUSCULAR HEMOGLOBIN 31 PG (25-34); MEAN CORPUSCULAR HGB CONC 34 G/DL (32-36); MEAN CORPUSCULAR VOLUME 90 FL (80-99); MEAN PLATELET VOLUME 9.5 FL (7.4-10.4); MONOCYTES # (AUTO) 0.3 X 10^3 (0.0-1.0); MONOCYTES % (AUTO) 10 % (0-12); NEUTROPHILS # (AUTO) 1.8 X 10^3 (1.8-7.8); NEUTROPHILS % (AUTO) 64 % (42-75); PLATELET COUNT 173 10^3/uL (130-400); RED BLOOD COUNT 3.66 10^6/uL (4.35-5.85); RED CELL DISTRIBUTION WIDTH 12.6 % (10.0-14.5); WHITE BLOOD COUNT 2.8 10^3/uL (4.3-11.0)
[2017-09-03 09:30] LABS: ALANINE AMINOTRANSFERASE 14 U/L (0-55); ALBUMIN 3.9 GM/DL (3.2-4.5); ALKALINE PHOSPHATASE 67 U/L (40-136); BILIRUBIN,TOTAL 0.6 MG/DL (0.1-1.0); BUN/CREATININE RATIO 32; CARBON DIOXIDE 26 MMOL/L (21-32); CHLORIDE 106 MMOL/L (98-107); CREATININE SERUM 0.76 MG/DL (0.60-1.30); GFR ESTIMATED > 60; GLUCOSE 149 MG/DL (70-105); POTASSIUM 4.4 MMOL/L (3.6-5.0); SODIUM 139 MMOL/L (135-145); TOTAL PROTEIN 5.9 GM/DL (6.4-8.2); TRIGLYCERIDES 53 MG/DL (<150)
[2017-09-03 09:31] LABS: CHOLESTEROL 150 MG/DL (< 200); HDL CHOLESTEROL 59 MG/DL (40-60); VLDL CHOLESTEROL 11 MG/DL (5-40)
== END ==
LOC: LAB 08:41
PROVIDERS: ATTEND Family Medicine
DX: E10.9 Type 1 diabetes mellitus without complications (principal); I10 Essential (primary) hypertension; E78.5 Hyperlipidemia, unspecified; E03.9 Hypothyroidism, unspecified; Z79.899 Other long term (current) drug therapy
CPT/HCPCS: 36415; 80053; 80061; 82043; 83036; 84443; 85025

== ENCOUNTER 2017-09-28 10:34 | Emergency (ER) | payer MEDICARE ==
[~2017-09-28] VITALS: Ht 160 cm; Wt 56.7 kg
[~2017-09-28 10:34] MED LIST changes: -CEPH-506 PO; -CEPH-507 PO
--- OUTSIDE RECORDS SUMMARY | 2017-09-28 10:59 | XMS REPORT | Referral Summary ---
Author Author [facility] Organization [facility] Address Unknown Phone Unavailable Care Team Providers Care Insurance Inspector Name Role Phone Dominique Recinos PCP Encounter VC Date(s): 03/24/17 - 03/24/17 [facility] [address] [place] [address] Discharge Diagnosis: Low back pain with right-sided sciatica Discharge Diagnosis: Urinary tract infection Discharge Disposition: 01-Home or Self Care Attending Physician: Derek Blair MD Admitting Physician: Derek Blair MD Vital Signs Most recent to 1 oldest [Reference Range]: Temperature Oral 36.5 degC [35.8-37.3 degC] (03/24/17 1:06 PM) Peripheral Pulse 89 bpm Rate [60-100 bpm] (03/24/17 5:27 PM) Heart Rate Monitored 97 bpm [60-100 bpm] (03/24/17 3:55 PM) Respiratory Rate 18 br/min [14-20 br/min] (03/24/17 3:55 PM) Blood Pressure 116/67 mmHg [90-140/60-90 mmHg] (03/24/17 5:27 PM) Mean Arterial 82 mmHg Pressure, Cuff (03/24/17 3:55 PM) SpO2 100 % (03/24/17 5:27 PM) Problem List Condition Effective Dates Status Health Status Informant Hypertension(Confirm Active patient ed) Allergies, Adverse Reactions, Alerts No Known Medication Allergies Medications Macrobid 100 mg oral capsule 100 mg 1 caps, Oral, BID, X 7 days, # 14 caps, 0 Refill(s) Start Date: 03/24/17 Stop Date: 03/31/17 Status: Ordered Percocet 5/325 oral tablet 1 tabs, Oral, q4hr, as needed for pain, X 3 days, # 12 tabs, 0 Refill(s) Start Date: 03/24/17 Stop Date: 03/27/17 Status: Ordered Results Hematology Most recent to 1 oldest [Reference Range]: WBC [4.8-10.8 11.8 10*3/uL 10*3/uL] *HI* (03/24/17 1:57 PM) RBC [4.00-5.20] 3.88 *LOW* (03/24/17 1:57 PM) Hgb [12.0-16.0 11.8 gm/dL gm/dL] *LOW* (03/24/17 1:57 PM) Hct [37.0-47.0 %] 34.7 % *LOW* (03/24/17 1:57 PM) MCV [82.0-99.0 fL] 89.4 fL (03/24/17 1:57 PM) MCH [27.0-32.0 pg] 30.4 pg (03/24/17 1:57 PM) MCHC [32.0-36.0 34.0 gm/dL gm/dL] (03/24/17 1:57 PM) RDW [11.5-14.5 %] 12.8 % (03/24/17 1:57 PM) Platelet [150-400 194 10*3/uL 10*3/uL] (03/24/17 1:57 PM) MPV [9.4-12.4 fL] 10.1 fL (03/24/17 1:57 PM) Immature 0.2 % Granulocytes (03/24/17 1:57 PM) [0.0-1.0 %] Neutrophils [51-75 86 % %] *HI* (03/24/17 1:57 PM) Lymphocytes [20-46 4 % %] *LOW* (03/24/17 1:57 PM) Monocytes [4-11 %] 10 % (03/24/17 1:57 PM) Eosinophils [0-4 %] 0 % (03/24/17 1:57 PM) Basophils [0-2 %] 0 % (03/24/17 1:57 PM) Neutro Absolute 10.07 [1.90-7.00] *HI* (03/24/17 1:57 PM) Lymph Absolute 0.46 [0.80-3.30] *LOW* (03/24/17 1:57 PM) [place] Absolute 1.19 [0.30-1.00] *HI* (03/24/17 1:57 PM) Eos Absolute 0.00 [0.00-0.50] (03/24/17 1:57 PM) Baso Absolute 0.01 [0.00-0.20] (03/24/17 1:57 PM) Nucleated RBC 0.0 /100 WBC Automated [0 /100 (03/24/17 1:57 PM) WBC] Chemistry Most recent to 1 oldest [Reference Range]: Sodium Lvl [136-144 140 mEq/L mEq/L] (03/24/17 1:57 PM) Potassium Lvl 3.8 mEq/L [3.6-5.1 mEq/L] (03/24/17 1:57 PM) Chloride [99-109 106 mEq/L mEq/L] (03/24/17 1:57 PM) CO2 [22-32 mEq/L] 25 mEq/L (03/24/17 1:57 PM) AGAP [3-20 mEq/L] 9 mEq/L (03/24/17 1:57 PM) BUN [4-20 mg/dL] 25 mg/dL *HI* (03/24/17 1:57 PM) Glucose Lvl [70-100 148 mg/dL mg/dL] *HI* (03/24/17 1:57 PM) Creatinine Lvl 1.02 mg/dL [0.44-1.03 mg/dL] (03/24/17 1:57 PM) eGFR [>60 mL/min] 51 mL/min 1 *ABN* (03/24/17 1:57 PM) Calcium Lvl 9.5 mg/dL [8.6-10.0 mg/dL] (03/24/17 1:57 PM) Albumin Lvl [3.5-4.8 3.9 gm/dL gm/dL] (03/24/17 1:57 PM) Total Protein 6.1 gm/dL [6.1-7.9 gm/dL] (03/24/17 1:57 PM) Globulin [1.9-4.3 2.2 gm/dL gm/dL] (03/24/17 1:57 PM) ALT [14-54 U/L] 20 U/L (03/24/17 1:57 PM) AST [15-41 U/L] 31 U/L (03/24/17 1:57 PM) Alk Phos [26-104 67 U/L U/L] (03/24/17 1:57 PM) Bili Total [0.2-1.2 0.9 mg/dL 2 mg/dL] (03/24/17 1:57 PM) Troponin [<0.06 <0.05 ng/mL ng/mL] (03/24/17 1:57 PM) Blood Glucose, 96 mg/dL Capillary [70-100 (03/24/17 3:42 PM) mg/dL] 1Result Comment: Multiply eGFR results by 1.21 for race. 2Result Comment: Naproxen, specifically the metabolite O-desmethylnaproxen, may cause spurious elevation in Total Bilirubin levels. Urinalysis Most recent to 1 oldest [Reference Range]: UA Color Yellow (03/24/17 1:57 PM) UA Appear Sl Cloudy (03/24/17 1:57 PM) UA pH [5.0-8.0] 5.0 (03/24/17 1:57 PM) UA Leuk Est Trace [Negative] *ABN* (03/24/17 1:57 PM) UA Nitrite Negative [Negative] (03/24/17 1:57 PM) UA Protein Pos 1+ [Negative] *ABN* (03/24/17 1:57 PM) UA Glucose Pos 3+ [Negative] *ABN* (03/24/17 1:57 PM) UA Ketones Pos 2+ [Negative] *ABN* (03/24/17 1:57 PM) UA Urobilinogen 2.0 mg/dL [<1.0 mg/dL] *ABN* (03/24/17 1:57 PM) UA Bili [Negative] Negative (03/24/17 1:57 PM) UA Blood [Negative] Negative (03/24/17 1:57 PM) UA Spec Grav 1.025 [1.003-1.030] (03/24/17 1:57 PM) Type Clean Catch (03/24/17 1:57 PM) UA WBC [0-4] 10-20 *ABN* (03/24/17 1:57 PM) UA RBC [0-2] 0-2 (03/24/17 1:57 PM) Epithelial Cells 2-5 (03/24/17 1:57 PM) UA Bacteria Numerous *ABN* (03/24/17 1:57 PM) UA Hyal Cast [0-3] 1-3 (03/24/17 1:57 PM) UA Gran Cast 1-3 *ABN* (03/24/17 1:57 PM) UA Mucous Present (03/24/17 1:57 PM) Immunizations No data available for this section Procedures Procedure Date Related Diagnosis Body Site Appendectomy Back surgery Social History Social History Type Response Smoking Status Never (less than 100 in lifetime) entered on: 03/24/17 Assessment and Plan No data available for this section
--- OUTSIDE RECORDS SUMMARY | 2017-09-28 11:02 | XMS REPORT | CCD ---
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 Name Role Phone PP Unavailable CCM Unavailable Summary Purpose Interface Exchange Insurance Providers Payer name Policy type / Coverage type Covered green party ID Effective Begin Date Effective End Date WPS Medicare Part B Medicare Part B [id number] Unknown Unknown [facility] Medicare Part B [id number] Unknown Unknown Family history Mother Diagnosis Age At Onset No Family Disease Entered N/A Father Diagnosis Age At Onset Heart Attack Unknown Diabetes Unknown Social History Social History Element Codes Description Effective Dates Number of children Unknown 2 Sons, 5 grandchildren, 11 great grandchildren 01/08/2017 Marital status Unknown [place] in 201606/06/[address]: 743548551 Never smoker 08/13/[address]: 596147784 Never drinks alcohol 08/13/2014 Allergies, Adverse Reactions, [...] Start Date Stop Date Status Fill Instructions Zocor 20 mg tablet RxNorm: 216235 1 Tablet(s) PO daily 201703/30/2018 Active Kenalog 40 mg/mL suspension for injection RxNorm: 9658509 1 Milliliter(s) Inj 03/26/2017 03/26/2017 Inactive Novolog 100 unit/mL subcutaneous solution RxNorm: 276695 SSI 5 units over 150 and for every additional 50 add 2 units Unit(s) SQ TID adjust as needed for glucose control 02/19/2017 09/16/2017 Active Lantus 100 unit/mL subcutaneous solution RxNorm: 668433 10 Unit(s) SQ QAM 02/19/2017 No Stop Date Active ceftriaxone 500 mg solution for injection RxNorm: 7469888 Inj 01/16/2017 01/16/2017 Inactive Lantus 100 unit/mL subcutaneous solution RxNorm: 094490 7 Unit(s) SQ QAM 01/16/2017 02/18/2017 Inactive Lantus 100 unit/mL subcutaneous solution RxNorm: 712883 10 Unit(s) SQ daily 01/08/2017 01/11/2017 Inactive gabapentin 100 mg capsule RxNorm: 658137 TAKE ONE CAPSULE BY MOUTH THREE TIMES A DAY 11/30/2016 02/03/2017 Inactive Zoloft 50 mg tablet RxNorm: 983878 TAKE ONE TABLET BY MOUTH DAILY 10/30/2016 04/27/2017 Active Zocor 20 mg tablet RxNorm: 636728 1 Tablet(s) PO daily 201604/04/2017 Inactive stop the 40mg dose of zocor, start on 20mg Lantus 100 unit/mL subcutaneous solution RxNorm: 144645 15 Unit(s) SQ daily 10/16/2016 01/07/2017 Inactive Novolog 100 unit/mL subcutaneous solution RxNorm: 029358 SSI 5 units over 150 and for every additional 50 add 2 units Unit(s) SQ TID adjust as needed for glucose control 10/16/2016 02/18/2017 Inactive prednisone 20 mg tablet RxNorm: 048301 1 Tablet(s) PO BID 10/0110/05/2016 Inactive Kenalog 40 mg/mL suspension for injection RxNorm: 8078957 1 Milliliter(s) Inj 09/27/2016 09/27/2016 Inactive Zithromax Z-Kishor 250 mg tablet RxNorm: 903270 1 Tablet(s) PO UD 09/27/2016 10/01/2016 Inactive ceftriaxone 500 mg solution for injection RxNorm: 7732992 1 Milliliter(s) Inj 09/27/2016 09/27/2016 Inactive Tessalon Perles 100 mg capsule RxNorm: 752434 1 Capsule(s) PO Q8 PRN as needed 09/22/2016 No Stop Date Active Augmentin 500 mg-125 mg tablet RxNorm: 304085 1 Tablet(s) PO BID 09/22/2016 09/26/2016 Inactive metoprolol tartrate 50 mg tablet RxNorm: 684734 TAKE ONE TABLET BY MOUTH TWICE A DAY 08/02/2016 07/27/2017 Active Novolog 100 unit/mL subcutaneous solution RxNorm: 115371 10 Unit(s) SQ TID adjust as needed for glucose control 07/19/2016 10/15/2016 Inactive Humalog 100 unit/mL subcutaneous solution RxNorm: 290300 INJECT 10 UNITS UNDER THE SKIN BEFORE EACH MEAL 07/16/201607/16 Inactive Kenalog 40 mg/mL suspension for injection RxNorm: 7930167 1 Milliliter(s) Inj 07/09/2016 07/09/2016 Inactive ceftriaxone 500 mg solution for injection RxNorm: 7564884 Inj 07/09/2016 07/09/2016 Inactive Lantus 100 unit/mL subcutaneous solution RxNorm: 764663 Unit(s) INJECT 13 UNITS UNDER THE SKIN IN THE MORNING 06/06/2016 10/15/2016 Inactive Zoloft 50 mg tablet RxNorm: 199019 TAKE ONE TABLET BY MOUTH DAILY 04/27/2016 07/25/2016 Inactive Lantus 100 unit/mL subcutaneous solution RxNorm: 411497 INJECT 20 UNITS UNDER THE SKIN AT BEDTIME 04/27/2016 06/05/2016 Inactive amoxicillin 500 mg capsule RxNorm: 246008 1 Capsule(s) PO TID 04/03/2016 04/12/2016 Inactive Zyrtec 10 mg tablet RxNorm: 7069322 1 Tablet(s) PO daily 04/0305/02/2016 Inactive hydrochlorothiazide 12.5 mg capsule RxNorm: 457136 TAKE ONE CAPSULE BY MOUTH DAILY 03/12/2016 12/06/2016 Inactive Benicar 40 mg tablet RxNorm: 741053 1 Tablet(s) PO daily 201504/27/2016 Inactive Benicar 40 mg tablet RxNorm: 932272 1 Tablet(s) PO daily 201502/27/2016 Inactive gabapentin 100 mg capsule RxNorm: 191651 TAKE ONE CAPSULE BY MOUTH THREE TIMES A DAY 01/09/2016 04/16/2016 Inactive metoprolol tartrate 50 mg tablet RxNorm: 270532 TAKE ONE TABLET BY MOUTH TWICE A DAY 01/09/2016 04/07/2016 Inactive Humalog 100 unit/mL subcutaneous solution RxNorm: 992114 5-10 Unit(s) SQ AC 07/19/2015 07/18/2016 Inactive Lantus 100 unit/mL subcutaneous solution RxNorm: 712338 13 Unit(s) SQ QAM 07/19/2015 01/15/2017 Inactive Lantus 100 unit/mL subcutaneous solution RxNorm: 954372 20 Unit(s) SQ QHS 07/14/2015 07/18/2015 Inactive Zoloft 50 mg tablet RxNorm: 756373 1 Tablet(s) PO daily 201509/15/2015 Inactive Humalog 100 unit/mL subcutaneous solution RxNorm: 683722 10 Unit(s) SQ AC 05/11/2015 07/18/2015 Inactive metoprolol tartrate 50 mg tablet RxNorm: 104318 1 Tablet(s) PO BID 04/28/2015 08/25/2015 Inactive Lantus 100 unit/mL subcutaneous solution RxNorm: 374422 20 Unit(s) SQ QHS 04/28/2015 07/13/2015 Inactive Vesicare 10 mg tablet RxNorm: 044669 1 Tablet(s) PO QPM 201509/18/2015 Inactive hydrochlorothiazide 12.5 mg capsule RxNorm: 963224 1 Tablet(s) PO daily 01/04/2015 12/29/2015 Inactive gabapentin 100 mg capsule RxNorm: 842115 1 Capsule(s) PO TID 03/28/2015 Inactive FreeStyle [...] Date Active aspirin 81 mg tablet RxNorm: 777403 1 Tablet(s) PO daily No Start Date Active Fish Oil oral RxNorm: 0054135 oral No Start Date Active multivitamin capsule RxNorm: 1 Capsule(s) PO daily No Start Date Active Humalog 100 unit/mL subcutaneous solution RxNorm: 940150 Unit(s) SQ No Start Date 05/10/2015 Inactive Zoloft 50 mg tablet RxNorm: 848479 1 Tablet(s) PO daily No Start Date 05/18/2015 Inactive gabapentin 100 mg capsule RxNorm: 285620 1 Capsule(s) PO daily No Start Date 11/28/2014 Inactive metoprolol tartrate 50 mg tablet RxNorm: 043906 1 Tablet(s) PO TID No Start Date 04/27/2015 Inactive Benicar 40 mg tablet RxNorm: 860549 1 Tablet(s) PO daily No Start Date 02/19/2016 Inactive hydrochlorothiazide 25 mg tablet RxNorm: 885818 1 Tablet(s) PO daily No Start Date 01/03/2015 Inactive Lantus 100 unit/mL subcutaneous solution RxNorm: 706861 13 Unit(s) SQ No Start Date 04/27/2015 Inactive Zocor 40 mg tablet RxNorm: 368086 1 Tablet(s) PO daily No Start Date 10/15/2016 Inactive Medication Administered Medication Codes Instructions Start Date Status Kenalog 40 mg/mL suspension for injection RxNorm: 6107541 1Milli03/26/2017 No longer Active ceftriaxone 500 mg solution for injection RxNorm: 3309333 01/16/2017 No longer Active Kenalog 40 mg/mL suspension for injection RxNorm: 2825656 09/27/2016 No longer Active ceftriaxone 500 mg solution for injection RxNorm: 9532261 1Milliliter 09/27/2016 No longer Active Kenalog 40 mg/mL suspension for injection RxNorm: 3750180 1Milliliter 07/09/2016 No longer Active ceftriaxone 500 mg solution for injection RxNorm: 9268677 07/09/2016 No longer Active Immunizations Vaccine Codes [...] NO Growth Day 1 01/18/2017 Free T4 Jhk855 FREE T4 1.13 ng/dL 10/09/2016 Tsh Ord6 [...] 31.5 pg 10/08/2016 Cbc With Differential Ord2 [place]% 4.0 % 10/08/2016 Cbc With Differential Ord2 [...] 0.96 K/ul 10/08/2016 Cbc With Differential Ord2 [place] ABS# 0.4 K/ul 10/08/2016 Cbc With Differential Ord2 Eos ABS# 0.0 K/ul 10/08/2016 Cbc With Differential Ord2 Baso ABS# 0.0 K/ul 10/08/2016 Comp Metabolic Zjq314 NA 135 mEq/L 10/08/2016 Comp Metabolic Qop448 K 4.3 mEq/L 10/08/2016 Comp Metabolic Jnm900 CL 98 mEq/L 10/08/2016 Comp Metabolic Crs253 CO2 22.0 mEq/L 10/08/2016 Comp Metabolic Guu120 ANION GAP 19 10/08/2016 Comp Metabolic Qkv026 GLUCOSE 400 mg/dL 10/08/2016 Comp Metabolic Dee085 Creat 0.7 mg/dL 10/08/2016 Comp Metabolic Dsa760 eGFR 79 ml/min/1.73m2 10/08/2016 Comp Metabolic Tvb994 BUN 27 mg/dL 10/08/2016 Comp Metabolic Tbn519 B/C Ratio 36.5 Ratio 10/08/2016 Comp Metabolic Dtl881 CALCIUM 9.1 mg/dL 10/08/2016 Comp Metabolic Jkx199 ALK PHOS 65 U/L 10/08/2016 Comp Metabolic Ksf611 AST(SGOT) 28 U/L 10/08/2016 Comp Metabolic Dgy323 ALT(SGPT) 24 U/L 10/08/2016 Comp Metabolic Bcf137 BILI T 0.7 mg/dL 10/08/2016 Comp Metabolic Nzf086 ALBUMIN 3.8 g/dL 10/08/2016 Comp Metabolic Puk742 TPRO 6.0 g/dL 10/08/2016 Comp Metabolic Kbp848 GLOB 2.2 g/dL 10/08/2016 Comp Metabolic Omx206 A/G Ratio 1.7 Ratio 10/08/2016 Comp Metabolic Nff211 Osmo 292 mOsmo 10/08/2016 %Hba1C Ctq902 % HbA1c 13919-2 7.0 % 10/08/2016 %Hba1C Qzp861 Gluc Ave 154 mg/dL 10/08/2016 Microalbumin Uov528 MicroAlb <0.7 mg/dL 10/08/2016 Lipid Ord30 CHOL 172 mg/dL 10/08/2016 Lipid Ord30 HDL 72.0 mg/dl 10/08/2016 Lipid Ord30 TRIG 72 mg/dL 10/08/2016 Lipid Ord30 LDL 86 mg/dL 10/08/2016 Lipid Ord30 C/HDL 2.4 Ratio 10/08/2016 C A/B FLU Influenza A Scr TNP:Duplicate Order 04/03/2016 C A/B FLU Influenza B Scr TNP:Duplicate Order 04/03/2016 C A/B FLU IC OK? TNP:Duplicate Order 04/03/2016 C A/B FLU [id number] Influenza A Scr Negative 04/03/2016 C A/B FLU [id number] Influenza B Scr Negative 04/03/2016 Comp Metabolic Hbf371 NA 138 mEq/L 09/15/2015 Comp Metabolic Swp160 K 4.4 mEq/L 09/15/2015 Comp Metabolic Rhi890 CL 103 mEq/L 09/15/2015 Comp Metabolic Oxl606 CO2 29.0 mEq/L 09/15/2015 Comp Metabolic Mcq885 ANION GAP 10 09/15/2015 Comp Metabolic Psc898 GLUCOSE 156 mg/dL 09/15/2015 Comp Metabolic Vqi908 Creat 0.7 mg/dL 09/15/2015 Comp Metabolic Ius557 eGFR 79 ml/min/1.73m2 09/15/2015 Comp Metabolic Dvs022 BUN 23 mg/dL 09/15/2015 Comp Metabolic Doe658 B/C Ratio 31.1 Ratio 09/15/2015 Comp Metabolic Ypq729 CALCIUM 9.1 mg/dL 09/15/2015 Comp Metabolic Yzn127 ALK PHOS 58 U/L 09/15/2015 Comp Metabolic Zet171 AST(SGOT) 19 U/L 09/15/2015 Comp Metabolic Kcv402 ALT(SGPT) 11 U/L 09/15/2015 Comp Metabolic Svp404 BILI T 0.6 mg/dL 09/15/2015 Comp Metabolic Vby551 ALBUMIN 3.9 g/dL 09/15/2015 Comp Metabolic Lgp001 TPRO 5.8 g/dL 09/15/2015 Comp Metabolic Mwb911 GLOB 1.9 g/dL 09/15/2015 Comp Metabolic Tca484 A/G Ratio 2.1 Ratio 09/15/2015 Comp Metabolic Lgk152 Osmo 283 mOsmo 09/15/2015 Cbc With Differential [...] 30.5 pg 09/15/2015 Cbc With Differential Ord2 [place]% 10.2 % 09/15/2015 Cbc With Differential Ord2 [...] 0.86 K/ul 09/15/2015 Cbc With Differential Ord2 [place] ABS# 0.5 K/ul 09/15/2015 Cbc With Differential Ord2 Eos ABS# 0.1 K/ul 09/15/2015 Cbc With Differential Ord2 Baso ABS# 0.0 K/ul 09/15/2015 Tsh Ord6 hTSH II 0.76 uIU/mL 09/15/2015 Lipid Ord30 CHOL 139 mg/dL 09/15/2015 Lipid Ord30 HDL 57.0 mg/dl 09/15/2015 Lipid Ord30 TRIG 76 mg/dL 09/15/2015 Lipid Ord30 LDL 67 mg/dL 09/15/2015 Lipid Ord30 C/HDL 2.4 Ratio 09/15/2015 %Hba1C Izl342 % HbA1c 07884-5 6.6 % 09/15/2015 %Hba1C Kqn399 Gluc Ave 143 mg/dL 09/15/2015 Tsh Ord6 hTSH II 0.68 uIU/mL 06/02/2015 %Hba1C Msc366 % HbA1c 21024-5 6.5 % 06/02/2015 %Hba1C Fld371 Gluc Ave 140 mg/dL 06/02/2015 Comp Metabolic Ydc547 NA 139 mEq/L 06/02/2015 Comp Metabolic Vxv806 K 4.5 mEq/L 06/02/2015 Comp Metabolic Jay369 CL 104 mEq/L 06/02/2015 Comp Metabolic Gma250 CO2 25.0 mEq/L 06/02/2015 Comp Metabolic Zyu586 ANION GAP 15 06/02/2015 Comp Metabolic Atp594 GLUCOSE 123 mg/dL 06/02/2015 Comp Metabolic Ixl181 Creat 0.7 mg/dL 06/02/2015 Comp Metabolic Mga542 eGFR 92 ml/min/1.73m2 06/02/2015 Comp Metabolic Ilz390 BUN 21 mg/dL 06/02/2015 Comp Metabolic Cqb637 B/C Ratio 32.3 Ratio 06/02/2015 Comp Metabolic Aoi250 CALCIUM 9.5 mg/dL 06/02/2015 Comp Metabolic Kfc110 ALK PHOS 66 U/L 06/02/2015 Comp Metabolic Wed897 AST(SGOT) 19 U/L 06/02/2015 Comp Metabolic Xpt541 ALT(SGPT) 13 U/L 06/02/2015 Comp Metabolic Dfo974 BILI T 0.5 mg/dL 06/02/2015 Comp Metabolic Qio391 ALBUMIN 4.0 g/dL 06/02/2015 Comp Metabolic Kkg126 TPRO 6.3 g/dL 06/02/2015 Comp Metabolic Ljs987 GLOB 2.3 g/dL 06/02/2015 Comp Metabolic Oyy264 A/G Ratio 1.7 Ratio 06/02/2015 Comp Metabolic Ngx810 Osmo 282 mOsmo 06/02/2015 %Hba1C Epm932 % HbA1c 93196-4 6.7 % 02/17/2015 %Hba1C Wuh486 Gluc Ave 146 mg/dL 02/17/2015 Comp Metabolic Ihy375 NA 133 mEq/L 02/17/2015 Comp Metabolic All480 K 4.3 mEq/L 02/17/2015 Comp Metabolic Qfy360 CL 99 mEq/L 02/17/2015 Comp Metabolic Ana512 CO2 27.0 mEq/L 02/17/2015 Comp Metabolic Yla812 ANION GAP 11 02/17/2015 Comp Metabolic Kzc733 GLUCOSE 239 mg/dL 02/17/2015 Comp Metabolic Jjx838 Creat 0.7 mg/dL 02/17/2015 Comp Metabolic Ebn335 eGFR 79 ml/min/1.73m2 02/17/2015 Comp Metabolic Gaj381 BUN 24 mg/dL 02/17/2015 Comp Metabolic Itn616 B/C Ratio 32.4 Ratio 02/17/2015 Comp Metabolic Zem007 CALCIUM 9.1 mg/dL 02/17/2015 Comp Metabolic Cqd652 ALK PHOS 75 U/L 02/17/2015 Comp Metabolic Xuf368 AST(SGOT) 18 U/L 02/17/2015 Comp Metabolic Mri203 ALT(SGPT) 11 U/L 02/17/2015 Comp Metabolic Ayy933 BILI T 0.6 mg/dL 02/17/2015 Comp Metabolic Flp877 ALBUMIN 4.2 g/dL 02/17/2015 Comp Metabolic Rjs724 TPRO 6.2 g/dL 02/17/2015 Comp Metabolic Raz123 GLOB 2.0 g/dL 02/17/2015 Comp Metabolic Zpc602 A/G Ratio 2.1 Ratio 02/17/2015 Comp Metabolic Ohl942 Osmo 278 mOsmo 02/17/2015 %Hba1C Brp682 % HbA1c 79618-9 6.7 % 11/15/2014 %Hba1C Jxh581 Gluc Ave 146 mg/dL 11/15/2014 Comp Metabolic Riw347 NA 134 mEq/L 11/15/2014 Comp Metabolic Rkh487 K 4.5 mEq/L 11/15/2014 Comp Metabolic Zpg303 CL 101 mEq/L 11/15/2014 Comp Metabolic Vzm230 CO2 27.0 mEq/L 11/15/2014 Comp Metabolic Khm561 ANION GAP 11 11/15/2014 Comp Metabolic Vbh332 GLUCOSE 293 mg/dL 11/15/2014 Comp Metabolic Erj660 Creat 0.7 mg/dL 11/15/2014 Comp Metabolic Ekl698 eGFR 87 ml/min/1.73m2 11/15/2014 Comp Metabolic Pzd312 BUN 20 mg/dL 11/15/2014 Comp Metabolic Wmk865 B/C Ratio 29.4 Ratio 11/15/2014 Comp Metabolic Ugv757 CALCIUM 9.0 mg/dL 11/15/2014 Comp Metabolic Nai999 ALK PHOS 67 U/L 11/15/2014 Comp Metabolic Uma376 AST(SGOT) 17 U/L 11/15/2014 Comp Metabolic Gwh016 ALT(SGPT) 10 U/L 11/15/2014 Comp Metabolic Anz386 BILI T 0.6 mg/dL 11/15/2014 Comp Metabolic Pgb658 ALBUMIN 4.0 g/dL 11/15/2014 Comp Metabolic Mdi432 TPRO 6.0 g/dL 11/15/2014 Comp Metabolic Vpu043 GLOB 2.0 g/dL 11/15/2014 Comp Metabolic Yyy968 A/G Ratio 2.0 Ratio 11/15/2014 Comp Metabolic Jao390 Osmo 282 mOsmo 11/15/2014 Review of Systems [...] affect 10/16/2016 None Full Exam - General 1995 Integument inspection of skin Location: face 10/16/2016 [...] Procedures Procedure Codes Date DRAIN/INJECT JOINT/BURSA CPT-4: 04484 03/26/2017 TRIAMCINOLONE ACET INJ NOS CPT-4: J3301 03/26/2017 URINALYSIS NONAUTO W/O SCOPE CPT-4: 02055 01/16/2017 THER/PROPH/DIAG INJ SC/IM CPT-4: 59540 01/16/2017 ROCEPHIN, PER 250 MG CPT-4: J0696 01/16/2017 DESTRUCT PREMALG LESION CPT-4: 51939 10/16/2016 TRIAMCINOLONE ACET INJ NOS CPT-4: J3301 09/27/2016 ROCEPHIN, PER 250 MG CPT-4: J0696 09/27/2016 PPPS, SUBSEQ VISIT CPT -4: G0439 07/10/2016 THER/PROPH/DIAG INJ SC/IM CPT-4: 46540 07/09/2016 TRIAMCINOLONE ACET INJ NOS CPT-4: J3301 07/09/2016 ROCEPHIN, PER 250 MG CPT-4: J0696 07/09/2016 ADMIN PNEUMOCOCCAL VACCINE SNOMED CT: 84013357 CPT-4: G0009 02/15/2015 PNEUMOCOCCAL VACC 13 LIMA IM Formatting Model/CDA Sections, Assigned to SNOMED CT: 89467796 CPT-4: 25937Cddavig 02/15/2015 ADMIN INFLUENZA VIRUS VAC CPT-4: G0008 12/10/2014 FLU VACC 4 LIMA 3 YRS PLUS IM Formatting Model/CDA Sections, Assigned to SNOMED CT: 30484108 CPT-4: 37999Zkruele 12/10/2014 Vital Signs Date Vital 03/26/2017 Blood Pressure 1: 150/78 Code : 8480-6 BMI: 23.2 Code : 07146-9 Heart Rate 1 : 73 bpm Height: 5'2" SpO2: 99% Weight: 127 lbs 02/19/2017 Blood Pressure 1: 126/64 Code : 8480-6 BMI: 22.9 Code : 99645-1 Heart Rate 1 : 74 bpm Height: 5'2" SpO2: 99% Weight: 125 lbs 01/16/2017 Blood Pressure 1: 136/68 Code : 8480-6 Heart Rate 1: 97 bpm Height: 5'2" Respiratory Rate: 16 bpm Temperature: 37.5 (C) / 99.5 (F) Weight: 01/08/2017 Blood Pressure 1: 144/60 Code : 8480-6 BMI: 23.0 Code : 50389-5 Heart Rate 1 : 71 bpm Height: 5'2" SpO2: 96% Weight: 126 lbs 11/21/2016 Blood Pressure 1: 150/62 Code : 8480-6 BMI: 23.2 Code : 33446-1 Heart Rate 1 : 73 bpm Height: 5'2" SpO2: 94% Weight: 127 lbs 10/16/2016 Blood Pressure 1: 142/82 Code : 8480-6 BMI: 22.9 Code : 43120-0 Heart Rate 1 : 80 bpm Height: 5'2" SpO2: 96% Weight: 125 lbs 10/08/2016 Blood Pressure 1: 150/72 Code : 8480-6 Heart Rate 1: 65 bpm Height: 5'2" SpO2: 98% 10/01/2016 Blood Pressure 1: 152/76 Code : 8480-6 Heart Rate 1: 69 bpm Height: 5'2" SpO2: 97% 09/27/2016 Blood Pressure 1: 122/64 Code : 8480-6 BMI: 23.3 Code : 22129-1 Heart Rate 1 : 80 bpm Height: 5'2" SpO2: 98% Weight: 127 lbs 8 oz 07/19/2016 Blood Pressure 1: 118/68 Code : 8480-6 BMI: 23.0 Code : 55024-4 Heart Rate 1 : 62 bpm Height: 5'2" SpO2: 97% Weight: 126 lbs 07/10/2016 Blood Pressure 1: 132/64 Code : 8480-6 BMI: 23.4 Code : 38896-3 Heart Rate 1 : 82 bpm Height: 5'2" SpO2: 98% Waist Measure (cm): 76 cm Weight: 128 lbs 07/09/2016 Blood Pressure 1: 132/64 Code : 8480-6 BMI: 23.4 Code : 31561-4 Heart Rate 1 : 82 bpm Height: 5'2" SpO2: 98% Temperature: 37.2 (C) / 98.9 (F) Weight: 128 lbs 06/06/2016 Blood Pressure 1: 144/66 Code : 8480-6 BMI: 23.4 Code : 50938-7 Heart Rate 1 : 77 bpm Height: 5'2" SpO2: 97% Weight: 128 lbs 04/03/2016 Blood Pressure 1: 164/70 Code : 8480-6 BMI: 24.5 Code : 31995-6 Heart Rate 1 : 80 bpm Height: 5'2" SpO2: 98% Weight: 134 lbs 12/26/2015 Blood Pressure 1: 130/72 Code : 8480-6 BMI: 24.1 Code : 57729-1 Heart Rate 1 : 63 bpm Height: 5'2" SpO2: 98% Weight: 132 lbs 09/19/2015 Blood Pressure 1: 140/68 Code : 8480-6 BMI: 24.2 Code : 96328-8 Heart Rate 1 : 96 bpm Height: 5'2" SpO2: 98% Weight: 132 lbs 8 oz 07/19/2015 Blood Pressure 1: 128/64 Code : 8480-6 BMI: 24.2 Code : 03587-0 Heart Rate 1 : 66 bpm Height: 5'2" SpO2: 98% Weight: 132 lbs 8 oz 03/22/2015 Blood Pressure 1: 128/60 Code : 8480-6 BMI: 24.0 Code : 02671-6 Heart Rate 1 : 57 bpm Height: 5'2" SpO2: 98% Weight: 131 lbs 02/15/2015 Blood Pressure 1: 132/56 Code : 8480-6 BMI: 23.8 Code : 60755-5 Heart Rate 1 : 70 bpm Height: 5'2" SpO2: 98% Weight: 130 lbs 11/15/2014 Blood Pressure 1: 120/78 Code : 8480-6 BMI: 24.1 Code : 18767-8 Heart Rate 1 : 79 bpm Height: 5'2" SpO2: 98% Weight: 132 lbs 08/13/2014 Blood Pressure 1: 140/60 Code : 8480-6 BMI: 24.0 Code : 76843-3 Heart Rate 1 : 74 bpm Height: [...] data Encounters Encounter Performer Location Codes Date EST. PATIENT, LEVEL III Diagnosis: Sciatica, right side[ICD10: M54.31] Diagnosis: Low back pain[ICD10: M54.5] [facility] CPT-4 : 58027 03/26/2017 [id number]) 13887 EST. PATIENT, LEVEL III Diagnosis: Type 1 diabetes mellitus without complications[ICD10: E10.9] Diagnosis: Essential (primary) hypertension[ICD10: I10] [facility] CPT-4: 27047 02/19/2017 ([id number]) 28432 EST. PATIENT, LEVEL IV Diagnosis: Fever presenting with conditions classified elsewhere[ICD10: R50.81] Diagnosis: Weakness[ICD10: R53.1] Diagnosis: Frequency of micturition[ICD10: R35.0] Diagnosis: Type 1 diabetes mellitus without complications[ICD10: E10.9] [facility] CPT-4: 64596 01/16/2017 ([id number]) 92388 EST. PATIENT, LEVEL IV Diagnosis: Type 1 diabetes mellitus without complications[ICD10: E10.9] Diagnosis: Essential (primary) hypertension[ICD10: I10] Dominique Recinos MD [facility] CPT-4: 25504 01/08/2017 ([id number]) 32288 EST. PATIENT, LEVEL IV Diagnosis: Essential (primary) hypertension[ICD10: I10] Diagnosis: Type 1 diabetes mellitus without complications[ICD10: E10.9] Dominique [facility] MD [facility] CPT-4: 72430 11/21/2016 ([id number]) 14825 EST. 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 PATIENT, LEVEL III Diagnosis: Chronic obstructive pulmonary disease with (acute) exacerbation[ICD10 : J44.1] Diagnosis: Cough[ICD10: R05] Maile [facility] MD [facility] CPT-4: 96840 10/08/2016 ([id number]) Miscellaneous no charge Diagnosis: Cough[ICD10: R05] Diagnosis: Chronic obstructive pulmonary disease with (acute) exacerbation[ICD10 : J44.1] Maile [facility] MD [facility] CPT-4: 91383 ([id number]) 25517 EST. PATIENT, LEVEL III Diagnosis: Cough[ICD10: R05] Diagnosis: Acute bronchitis, unspecified[ICD10: J20.9] Maile [facility]inos MD [facility] CPT-4: 38211 09/27/2016 ([id number]) 74355 EST. PATIENT, LEVEL III Diagnosis: Type 1 diabetes mellitus without complications[ICD10: E10.9] Dominique [facility]inos MD [facility] CPT-4: 60227 07/19/2016 ([id number]) 27490 EST. PATIENT, LEVEL IV Diagnosis: Essential (primary) hypertension[ICD10: I10] Diagnosis: Type 1 diabetes mellitus without complications[ICD10: E10.9] Diagnosis: Other allergic rhinitis[ICD10: J30.89] Diagnosis: Acute laryngopharyngitis[ICD10: J06.0] Dominique Recinos MD, [facility] CPT-4: 08214 07/09/2016 ([id number]) 16234 EST. PATIENT, LEVEL IV Diagnosis: Essential (primary) hypertension[ICD10: I10] Diagnosis: Type 1 diabetes mellitus without complications[ICD10: E10.9] Diagnosis: Mixed hyperlipidemia[ICD10: E78.2] Dominique Recinos MD, [facility] CPT-4: 04691 06/06/2016 86942 EST. PATIENT, LEVEL III Diagnosis: Other allergic rhinitis[ICD10: J30.89] Diagnosis: Acute laryngopharyngitis[ICD10: J06.0] Fatmata Recinos MD, [facility] CPT-4: 02936 04/03/2016 ([id number]) 50479 EST. PATIENT, LEVEL IV Diagnosis: Type 1 diabetes mellitus without complications[ICD10: E10.9] Diagnosis: Essential (primary) hypertension[ICD10: I10] Diagnosis: Pain in right hand[ICD10: M79.641] Dominique Recinos MD, [facility] CPT-4: 77316 12/26/2015 ([id number]) 59522 EST. PATIENT, LEVEL IV Diagnosis: Type 1 diabetes mellitus without complications[ICD10: E10.9] Diagnosis: Essential (primary) hypertension[ICD10: I10] Dominique Recinos MD, [facility] CPT-4: 90586 09/19/2015 ([id number]) 39501 EST. PATIENT, LEVEL IV Diagnosis: Essential (primary) hypertension[ICD10: I10] Diagnosis: Mixed hyperlipidemia[ICD10: E78.2] Diagnosis: Type 1 diabetes mellitus without complications[ICD10: E10.9] Dominique Recinos MD, [facility] CPT-4: 63019 07/19/2015 ([id number]) 15534 EST. PATIENT, LEVEL IV Diagnosis: Other specified dorsopathies, lumbar region[ICD10: M53.86] Diagnosis: Urge incontinence[ICD10: N39.41] Diagnosis: Type 1 diabetes mellitus without complications[ICD10: E10.9] Dominique Recinos MD, [facility] CPT-4: 23609 03/22/2015 ([id number] 91281 EST. PATIENT, LEVEL IV Diagnosis: Essential (primary) hypertension[ICD10: I10] Diagnosis: Other specified dorsopathies, lumbar region[ICD10: M53.86] Diagnosis: Other chronic pain[ICD10: G89.29] [facility], [facility] CPT-4: 51141 02/15/2015 ([id number]) 92811 EST. PATIENT, LEVEL IV Diagnosis: ESSENTIAL HYPERTENSION[ICD9: 401.9] Diagnosis: DIABETES TYPE II[ICD9: 250.00] Diagnosis: FALL FROM LADDER[ICD9: E881.0] Diagnosis: Right hip pain[ICD9: 719.45] Diagnosis: Left hand pain[ICD9: 729.5] Diagnosis: Sacroiliac joint pain[ICD9: 724.6] Dominique Recinos MD, [facility] CPT-4: 01453 11/15/2014 ([id number]) OFFICE VISIT, NEW - LEVEL 4 Diagnosis: DIABETES TYPE II[ICD9: 250.00] Diagnosis: ESSENTIAL HYPERTENSION[ICD9: 401.9] Diagnosis: HYPERLIPIDEMIA[ICD9: 272.4] [facility] CPT- 4: 25278 08/13/2014 Plan of Care Planned Activity Notes Codes Status Date Appointment: Dominique Recinos WPtel: [address] [place], [place] [phone] (15 min) Moderate 04/02/2017 Visit Plan: Low back pain- the patient [...] occurs at the site of injection. 03/26/2017 Appointment: [facility]ata Spann [facility] [address] [facility] [place] (30 min) Complex 03/26/2017 Appointment: Dominique Recinos WPtel: [facility] (15 min) Moderate 03/26/2017 Patient Education: Patient [...] at home. 02/19/2017 Appointment: Domin[facility]inos [facility] [place] ([place] min) Moderate 02/19/2017 Patient Education: Patient Medication Summary Completed 02/19/2017 Patient Education: Hypertension Completed 02/19/2017 Appointment: Dominique Recinos WPtel[facility] [place] (15 min) Moderate 02/12/2017 Visit Plan: Diabetes [...] above 100F. 01/16/2017 Appointment: Dominique Recinos WPtel: [address] [place], [place] [phone] (15 min) Moderate 01/16/2017 Patient Education: Patient [...] at home. 01/08/2017 Appointment: Dominique Recinos WPtel: [facility] (15 min) Moderate 01/08/2017 Patient Education: Patient Medication Summary Completed 01/08/2017 Patient Education: Hypertension Completed 01/08/2017 Appointment: Dominique Recinos WPtel: [address] [place], [place] [phone] (15 min) Moderate 12/31/2016 Appointment: Dominique Recinos WPtel: [address] [place], [place] [phone] (15 min) Moderate 12/18/2016 Visit Plan: Hypertension [...] less controlled. 11/21/2016 Appointment: Dominique Recinos WPtel[facility] [phone] [place] (15 min) Moderate 11/21/2016 Patient Education: Patient Medication Summary Completed 11/21/2016 Patient Education: Hypertension Completed 11/21/2016 Visit Plan: Hyperlipidemia - pt has been [...] cheese, mashed potatoes, creamy coleslaw, etc. 10/16/2016 Visit Plan: DM - uncontrolled - increase [...] potatoes, creamy coleslaw, etc. -- referral to senior loss control specialist. Hyperlipidemia - pt has been counseled [...] use neosporin on lesion until healed 10/16/2016 Appointment: Dominique Recinos WPtel: [phone] [place] (15 min) Moderate 10/16/2016 Patient Education: Patient Medication Summary Completed 10/16/2016 Patient Education: Hypertension Completed 10/16/2016 Patient Education: Patient Medication Summary Completed 10/09/2016 Care Plan: Free T4 Pending 10/09/2016 Visit Plan: COPD ncnnvxfelarg-vlhwd-owfsydfb resolved-call if symptoms return-monitor blood sugars closely for the next few days and discussed diet. 10/08/2016 Appointment: [phone] [place] (15 min) Moderate 10/08/2016 Patient Education: [...] changes. 10/01/2016 Appointment: Maile Randolph WPtel: [phone] [phone] (30 min) Complex 10/01/2016 Patient Education: Patient Medication Summary Completed 10/01/2016 Visit Plan: Bronchitis - acute case of bronchitis identified. Pt has been given antibiotics, breathing treatments as appropriate, and pt has been instructed to call if symptoms are not improved, or if symptoms acutely worsen. 09/27/2016 Appointment: Maile Randolph WPtel: [phone] [phone] (30 min) Complex 09/27/2016 Patient Education: [...] controlled. 07/19/2016 Appointment: Dominique Recinos WPtel[facility] [phone] [place] (15 min) Moderate 07/19/2016 Patient Education: Patient [...] care surrogate. 07/10/2016 Appointment: Fatmata Spann WPtel: [phone] [facility] [place] [address] - Annual Wellness Visit 07/10/2016 Patient Education: [...] - call if not improving 07/09/2016 Appointment: Dominique Recinos WPtel: [phone] [facility] (15 min) Moderate 07/09/2016 Patient Education: Patient Medication Summary Completed 07/09/2016 Patient Education: Hypertension Completed 07/09/2016 Appointment: Dominique Recinos WPtel: [phone] [facility] (15 min) Moderate 06/26/2016 Visit Plan: Hypertension [...] to medications. 06/06/2016 Appointment: Dominique Recinos WPtel: [phone] [facility] (15 min) Moderate 06/06/2016 Patient Education: Patient Medication Summary Completed 06/06/2016 Appointment: Dominique Recinos WPtel: [phone] [facility] (15 min) Moderate 04/30/2016 Visit Plan: URI [...] allergy spray. 04/03/2016 Appointment: Fatmata Spann [facility]el[phone] [place] (30 min) Complex 04/03/2016 Patient Education: Patient [...] 12/26/2015 Patient Education: Hypertension Completed 12/26/2015 Appointment: JorjeDominique WPtel: [phone] [place] (15 min) Moderate 12/19/2015 Visit Plan: Diabetes [...] at home. 09/19/2015 Appointment: Dominique Recinos WPtel: [phone] [place] (15 min) Moderate 09/19/2015 Patient Education: Patient [...] to medications. 07/19/2015 Appointment: Dominique Recinos WPtel: [phone] [place] (15 min) Moderate 07/19/2015 Patient Education: Patient [...] q10. Back pain - referral to [facility] physical therapy for further eval and treat. 03/22/2015 Appointment: Dominique Recinos WPtel: [phone] [place] (15 min) Moderate 03/22/2015 Patient Education: Patient Medication Summary Completed 03/22/2015 Care Plan: Referral Order SNOMED-CT : [id number] Ordered 03/22/2015 Visit Plan: Hypertension - well [...] liver response to medications. 08/13/2014 Appointment: Dominique Rceinos WPtel: [facility] [place] [place] ([place] New Patient 08/13/2014 Patient Education: Patient Medication Summary Completed 08/13/2014 Patient Education: Hypertension Completed 08/13/2014 Referral: External, Ordering Provider Referral Appointment Requested Instructions Comment . Medicare Exam - today we discussed [...] DOPA paperwork for health care surrogate. . Diabetes Mellitus - controlled - per [...] readings are starting to become less controlled. decrease Lantus to 7 units in the mornings. . Diabetes mellitus - blood glucose level too well controlled - decrease dose of lantus from 10 units to 7 units - decrease novolog as directed. Dysuria - checked ua - will send for culture - continue with monitor - rocephin shot given today. Fever - monitor temperature at home, call if consistently above 100F. CHEST XRAY TODAY ANTI-HISTAMINE DAILY . COPD [...] patient is stable, monitor for acute changes. . 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 Hypertension - well [...] to assure normal liver response to medications. Go back to taking your benicar at [...] readings are starting to become less controlled. decrease the zocor to 20mg daily (take [...] n cheese, mashed potatoes, creamy coleslaw, etc. get TIGER BALM - over the counter [...] in blood pressure readings at home. . Hypertension - well controlled - continue [...] or Aspercreme call if not improving. . Low back pain- the patient was [...] occurs at the site of injection. . URI - Pt advised to increase [...] spray in the nasal steroid allergy spray. if your blood glucose is between 70 [...] change in blood pressure readings at home. rocephin and kenalog . Bronchitis - acute case of bronchitis identified. Pt has been given antibiotics, breathing treatments as appropriate, and pt has been instructed to call if symptoms are not improved, or if symptoms acutely worsen. . COPD ymkhwnrutexk-yziej-dtfgrvsm resolved-call if symptoms return-monitor blood sugars closely for the next few days and discussed diet. . Hypertension - well controlled - continue [...] to assure normal liver response to medications. zocor can cause muscle aches - the [...] q10. Back pain - referral to [facility] physical therapy for further eval and treat. get blood work done about 1 week [...] change in blood pressure readings at home. decrease the zocor to 20mg daily (take [...] potatoes, creamy coleslaw, etc. -- referral to senior loss control specialist. Hyperlipidemia - pt has been counseled [...] - use neosporin on lesion until healed . Diabetes Mellitus - controlled - per [...]
--- NOTE | 2017-09-28 11:06 | ED General ---
General Chief Complaint: Glucose Problems Stated Complaint: LOW BLOOD SUGAR Nursing Triage Note: Pt reports she accidentally took an extra dose of novolog insulin this morning instead of her lantus. Pt is supposed to take 10 units of novolog and 18 units of levemir. Pt took second dose of novolog instead of lantus - pt has had total of 28 units of novolog. Pt reports blood sugar was 48 at home and pt was able to get blood sugar to 74 after eating peanut butter and drinking a soda. Pt concerned blood sugar will drop again. Nursing Sepsis Screen: No Definite Risk Source of Information: Patient Exam Limitations: No Limitations History of Present Illness Date Seen by Provider: Sep 28, 2017 Time Seen by Provider: 11:02 Initial Comments to ER with reports of an unintentional insulin overdose. normally every morning she takes 10 units of NovoLog and 18 units of Lantus.today she took her regular 10 units of NovoLog and then accidentally norris up 18 units of NovoLog instead of 18 units of insulin. Subsequently she had a total of 28 units of NovoLog. This was at 7 AM this morning. She is eaten quite a bit this morning in an attempt to keep her blood sugars up. He did get as low as 40s, back up to 74, down to 62 at time of arrival to ER. She is alert and oriented with no symptoms. Timing/Duration: 1-3 Hours Severity: Moderate Allergies and Home Medications Allergies Coded Allergies: NKANo Known Allergies (Verified Allergy, Unknown, 03/31/17) Home Medications Aspirin 81 Mg Tablet.dr, 81 MG PO HS, (Reported) Calcium Carbonate/Vitamin D3 1 Each Tablet, 1 TAB PO DAILY, (Reported) Doxazosin Mesylate 1 Mg Tablet, 1 MG PO HS Prescribed by: YUNIOR JOYNER on 08/30/17 0953 Gabapentin 100 Mg Capsule, 100 MG PO TID, (Reported) Hydrochlorothiazide 12.5 Mg Capsule, 12.5 MG PO DAILY, (Reported) Insulin Aspart 100 Unit/1 Ml Susp, SQ AC, (Reported) Insulin Glargine,Hum.rec.anlog 100 Unit/1 Ml Vial, 17 UNITS SQ DAILY, (Reported) Metoprolol Tartrate 50 Mg Tablet, 50 MG PO BID, (Reported) Multivitamin 1 Each Tablet, 1 TAB PO DAILY, (Reported) Olmesartan Medoxomil 40 Mg Tablet, 40 MG PO DAILY, (Reported) RECEIVES FROM SMRxT Sertraline HCl 50 Mg Tablet, 50 MG PO HS, (Reported) Simvastatin 20 Mg Tablet, 20 MG PO HS, (Reported) LAST PICKED UP 07-07-17 #30 Patient Home Medication List Home Medication List Reviewed: Yes Review of Systems Constitutional: see HPI EENTM: see HPI Respiratory: no symptoms reported Cardiovascular: no symptoms reported Genitourinary: no symptoms reported Musculoskeletal: no symptoms reported Skin: no symptoms reported Psychiatric/Neurological: No Symptoms Reported Hematologic/Lymphatic: No Symptoms Reported Immunological/Allergic: no symptoms reported Past Riyyfeg-Idmvav-Nqrfwp Hx Patient Social History Alcohol Use: Denies Use Recreational Drug Use: No Smoking Status: Never a Smoker 2nd Hand Smoke Exposure: No Recent Foreign Travel: No Contact w/Someone Who Travel: No Recent Infectious Disease Expo: No Recent Hopitalizations: No Immunizations Up To Date Tetanus Booster (TDap): Less than 5yrs PED Vaccines UTD: Yes Date of Pneumonia Vaccine: Dec 06, 2011 Date of Influenza Vaccine: Dec 02, 2016 Seasonal Allergies Seasonal Allergies: No Past Medical History Surgeries: Yes (APPY) Appendectomy Respiratory: No Cardiac: Yes (cardiac stent x1.) Coronary Artery Disease, Hypertension Neurological: No Reproductive Disorders: No 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 Sexually Transmitted Disease: No HIV/AIDS: No Genitourinary: Yes (STRESS INCONTINENCE) Gastrointestinal: No Musculoskeletal: Yes Chronic Back Pain Endocrine: Yes Diabetes, Insulin dep HEENT: Yes Loss of Vision: Denies Hearing Impairment: Bilateral Hearing Aide Cancer: No Psychosocial: Yes Anxiety, Depression Integumentary: Yes (SORES ON BACK OF NECK) Blood Disorders: Yes (ANEMIA) Adverse Reaction/Blood Tranf: No Family Medical History Heart Disease, Hypertension Physical Exam Vital Signs Vital Signs - First Documented 09/28/17 10:40 Temp 97.3 Pulse 64 Resp 18 B/P (MAP) 151/62 (91) Pulse Ox 98 O2 Delivery Room Air Capillary Refill : Less Than 3 Seconds Height, Weight, BMI Height: 5'3.00" Weight: 125lbs. 0.0oz. 56.625994wc; 22.7 BMI Method:Stated General Appearance: No Apparent Distress, WD/WN Eyes: Bilateral Eye Normal Inspection, Bilateral Eye PERRL, Bilateral Eye EOMI HEENT: PERRL/EOMI, TMs Normal Neck: Full Range of Motion, Normal Inspection Respiratory: No Accessory Muscle Use, No Respiratory Distress Gastrointestinal: Normal Bowel Sounds, Non Tender, Soft Extremity: Normal Capillary Refill, Normal Inspection Neurologic/Psychiatric: Alert, Oriented x3 Skin: Normal Color, Warm/Dry Comments sshe is alert and oriented no distress, no nausea, mental status is normal, no diaphoresis. She is ordering a meal tray.since she took NovoLog, this peaks at 1 -3 hours, time of administration was 7 AM so we are already at the 4 hour khoi. I plan to watch her for about one hour with serial glucose checks, give her a meal tray and if blood sugar remains adequate we'll discharge her to home. Progress/Results/Core Measures Suspected Sepsis Recent Fever Within 48 Hours: No Infection Criteria Present: None New/Unexplained Altered Menta: No Sepsis Screen: No Definite Risk SIRS Temperature:97.3 Pulse: 64 Respiratory Rate: 18 Blood Pressure 151 /62 Mean: 91 Results/Orders Lab Results Laboratory Tests Test 09/28/17 10:40 09/28/17 11:14 09/28/17 11:52 Range/Units Glucometer 62 L 104 144 H 70-110 MG/DL My Orders Orders - ROBERT FAY APRN Iv Heplock-Insert (Order) (09/28/17 10:56) Accucheck Stat ONCE (09/28/17 11:10) General/Regular (09/28/17 Lunch) Accucheck Stat ONCE (09/28/17 11:46) Vital Signs/I&O 09/28/17 09/28/17 10:40 12:04 Temp 97.3 Pulse 64 60 Resp 18 20 B/P (MAP) 151/62 (91) 149/68 Pulse Ox 98 98 O2 Delivery Room Air Room Air Capillary Refill : Less Than 3 Seconds Blood Pressure Mean: 91 Point of Care Testing Finger Stick Blood Glucose: 62 Departure Impression Primary Impression: unintentional insulin overdose Disposition: 01 HOME, SELF-CARE Condition: Stable Departure-Patient Inst. Decision time for Depature: 11:05 Referrals: YUNIOR JOYNER MD (PCP/Family) Primary Care Physician Patient Instructions: Diabetes Type 2 (DC) Add. Discharge Instructions: . Return to ER for any concerns 2. Check your blood sugar as per your usual 2.All discharge instructions reviewed with patient and/or family. Voiced understanding. ROBERT FAY APRN Sep 28, 2017 11:05
[2017-09-28 12:04] VITALS: BP 149/68
== END 2017-09-28 12:05 | disposition home or self-care (01) ==
LOC: EDUNIT# 10:34 → ER 10:36
DX: T38.3X1A Poisoning by insulin and oral hypoglycemic [antidiabetic] drugs, accidental (unintentional), initial encounter (principal); I25.10 Atherosclerotic heart disease of native coronary artery without angina pectoris; I10 Essential (primary) hypertension; E11.9 Type 2 diabetes mellitus without complications; F41.9 Anxiety disorder, unspecified; F32.9 Major depressive disorder, single episode, unspecified; Z95.5 Presence of coronary angioplasty implant and graft; Z79.4 Long term (current) use of insulin; Z79.82 Long term (current) use of aspirin; Z90.89 Acquired absence of other organs
CPT/HCPCS: 82962; 99282

== ENCOUNTER 2017-10-06 09:44 | Emergency (ER) | payer MEDICARE ==
[~2017-10-06] VITALS: Ht 160 cm; Wt 56.7 kg
[2017-10-06] MEDS ORDERED: CEPH-506 PO (10:03)
--- NOTE | 2017-10-06 10:03 | ED Fall/Injury ---
General Stated Complaint: FELL OUT OF BED/ CUT HER RIGHT ARM Source: patient, other Exam Limitations: no limitations History of Present Illness Date Seen by Provider: Oct 06, 2017 Time Seen by Provider: 09:51 Initial Comments The patient presents to ER by private conveyance with her significant other and a chief complaint she was going to religious this morning and stepped out of her front porch and missed the last step and fell down onto her right elbow. She's not having any pain on movement of her elbow but she did scrape open the skin significantly and she is afraid it might not heal right she didn't come get it checked out. She does take aspirin but no other blood thinners. She did not strike her head nor lose consciousness. She's having no nausea, dizziness or imbalance. No dysuria, diarrhea, constipation. She's been eating and drinking well lately. She is diabetic but her blood sugars of been running okay according to the patient. She does use insulin. Allergies and Home Medications Allergies Coded Allergies: NKANo Known Allergies (Verified Allergy, Unknown, 03/31/17) Home Medications Aspirin 81 Mg Tablet.dr, 81 MG PO HS, (Reported) Calcium Carbonate/Vitamin D3 1 Each Tablet, 1 TAB PO DAILY, (Reported) Doxazosin Mesylate 1 Mg Tablet, 1 MG PO HS Prescribed by: YUNIOR JOYNER on 08/30/17 0953 Gabapentin 100 Mg Capsule, 100 MG PO TID, (Reported) Hydrochlorothiazide 12.5 Mg Capsule, 12.5 MG PO DAILY, (Reported) Insulin Aspart 100 Unit/1 Ml Susp, SQ AC, (Reported) Insulin Glargine,Hum.rec.anlog 100 Unit/1 Ml Vial, 17 UNITS SQ DAILY, (Reported) Metoprolol Tartrate 50 Mg Tablet, 50 MG PO BID, (Reported) Multivitamin 1 Each Tablet, 1 TAB PO DAILY, (Reported) Olmesartan Medoxomil 40 Mg Tablet, 40 MG PO DAILY, (Reported) RECEIVES FROM DEIRDRE Sertraline HCl 50 Mg Tablet, 50 MG PO HS, (Reported) Simvastatin 20 Mg Tablet, 20 MG PO HS, (Reported) LAST PICKED UP 07-07-17 #30 Patient Home Medication List Home Medication List Reviewed: Yes Review of Systems Constitutional: No chills, No diaphoresis Eyes: Denies Blindness, Denies Drainage Ears, Nose, Mouth, Throat: denies ear pain, denies ear discharge, denies nose pain, denies nose discharge, denies epistaxis, denies mouth pain Respiratory: No cough, No short of breath Cardiovascular: No chest pain, No edema Gastrointestinal: No abdominal pain, No constipation, No diarrhea, No nausea, No vomiting Genitourinary: No discharge, No dysuria Past Fajczqh-Hnantp-Hmzbhh Hx Patient Social History Alcohol Use: Denies Use Recreational Drug Use: No Smoking Status: Never a Smoker 2nd Hand Smoke Exposure: No Recent Foreign Travel: No Contact w/Someone Who Travel: No Recent Hopitalizations: No Immunizations Up To Date Tetanus Booster (TDap): Less than 5yrs PED Vaccines UTD: Yes Date of Pneumonia Vaccine: Dec 06, 2011 Date of Influenza Vaccine: Dec 02, 2016 Seasonal Allergies Seasonal Allergies: No Past Medical History Surgeries: Yes (APPY) Appendectomy Respiratory: No Cardiac: Yes (cardiac stent x1.) Coronary Artery Disease, Hypertension Neurological: No 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 Sexually Transmitted Disease: No HIV/AIDS: No Genitourinary: Yes (STRESS INCONTINENCE) Gastrointestinal: No Musculoskeletal: Yes Chronic Back Pain Endocrine: Yes Diabetes, Insulin dep HEENT: Yes Loss of Vision: Denies Hearing Impairment: Bilateral Hearing Aide Cancer: No Psychosocial: Yes Anxiety, Depression Integumentary: Yes (SORES ON BACK OF NECK) Blood Disorders: Yes (ANEMIA) Adverse Reaction/Blood Tranf: No Family Medical History Heart Disease, Hypertension Physical Exam Vital Signs Vital Signs - First Documented 10/06/17 09:50 Temp 98.1 Pulse 88 Resp 20 B/P (MAP) 143/71 (95) Pulse Ox 97 Capillary Refill : Height, Weight, BMI Height: 5'3.00" Weight: 125lbs. 0.0oz. 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, no motor/sensory deficits, alert, normal mood/affect, oriented x 3 Skin: normal color, warm/dry, other (skin tear right forearm 8 x 3 cm, irregular) Maria Elena Coma Score Best Eye Response: (4) Open Spontaneously Best Verbal Response: (5) Oriented Best Motor Response: (6) Obeys Commands Maria Elena Total: 15 Progress/Results/Core Measures Results/Orders My Orders Orders - YOUSIF BLANCO Ct Head/Cervical Spine Wo (10/06/17 09:58) Vital Signs/I&O 10/06/17 09:50 Temp 98.1 Pulse 88 Resp 20 B/P (MAP) 143/71 (95) Pulse Ox 97 Progress Progress Note : Time: 10:00 Progress Note Clean the wound reapproximated skin flaps and applied Mepilex with instructions to follow-up outpatient with her primary care provider this week. Give discussed the risks, benefits and alternatives to doing scanning of her head and she has agreed to do a CT of the head and neck. This is okay we'll let her go. We have discussed doing urinalysis and she has declined. Diagnostic Imaging Diagonstic Imaging: CT Plain Films/CT/US/NM/MRI: c-spine, head Comments NAME: ARELY GORDON [facility] REC#: [id number] PHYSICIAN: YOUSIF BLANCO MD CC: ABEBE RIGGS MD; YOUSIF BLANCO Page 2 of 2 RADIOLOGY REPORT VIA [place] CC: ABEBE RIGGS MD; YOUSIF BLANCO Page 1 of 2 RADIOLOGY REPORT NAME: ARELY GORDON [facility] REC#: [id number] PT STATUS: REG ER : 1930 PHYSICIAN: YOUSIF BLANCO MD ADMIT DATE: 10/06/17/ER Signed Date of Exam: 10/06/17 CT HEAD/CERVICAL SPINE WO PROCEDURE: CT head and CT cervical spine without contrast. TECHNIQUE: Multiple contiguous axial images were obtained through the brain and cervical spine without the use of intravenous contrast. Sagittal and coronal reformations through the cervical spine were then performed. INDICATION: Head and neck pain after fall out of bed. COMPARISON: 06/04/2012. FINDINGS: CT head: No hyperdense hemorrhage or space-occupying mass. No hydrocephalus or midline shift. No evidence of acute territorial infarct. Global atrophy with periventricular white matter hypoattenuation has not substantially changed. No acute skull fracture. The paranasal sinuses and mastoid air cells are clear. CT cervical spine: There is no acute fracture or traumatic malalignment in the cervical spine. Severe degenerative disc disease throughout multiple levels is present. However, there is no high-grade spinal canal narrowing. Degenerative pannus formation is present posterior to the dens. Large multi-nodule thyroid goiter asymmetric to the right is unchanged since 2012. Lung apices are clear. Calcified atherosclerotic plaques of the bilateral carotid bulbs. IMPRESSION: 1. No acute intracranial hemorrhage or skull fracture. 2. No acute fracture or traumatic malalignment of the cervical spine. 3. Moderate to severe degenerative spondylosis of the cervical spine, however, no high-grade spinal canal narrowing is present. 4. Multinodular thyroid goiter is stable since 06/04/2012. Dictated by: Dictated on workstation # [id number] Dict: 10/06/17 1023 Trans: 10/06/17 1036 Interpreted by: ABEBE RIGGS MD Electronically signed by: ABEBE RIGGS MD 10/06/17 1036 Reviewed: Reviewed by Me Departure Impression Primary Impression: Fall Qualified Codes: W19.XXXA - Unspecified fall, initial encounter Additional Impression: Skin tear of right forearm without complication Qualified Codes: S51.811A - Laceration without foreign body of right forearm, initial encounter Disposition: 01 HOME, SELF-CARE Condition: Stable Departure-Patient Inst. Decision time for Depature: 10:44 Referrals: YUNIOR JOYNER MD (PCP/Family) Primary Care Physician Patient Instructions: Wound Care (DC) Add. Discharge Instructions: Keep the wound clean and dry. Follow-up with her primary care provider this week to have the dressing removed. 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 Scripts Cephalexin (Keflex) 500 Mg Capsule 500 MG PO TID for 3 Days, #9 CAP 0 Refills Prov: YOUSIF BLANCO 10/06/17 Copy Copies To 1: YUNIOR JOYNER MD, TITUS J Oct 06, 2017 10:03
--- NOTE | 2017-10-06 10:33 | Diagnostic Imaging Report ---
PROCEDURE: CT head and CT cervical spine without contrast. TECHNIQUE: Multiple contiguous axial images were obtained through the brain and cervical spine without the use of intravenous contrast. Sagittal and coronal reformations through the cervical spine were then performed. INDICATION: Head and neck pain after fall out of bed. COMPARISON: 06/04/2012. FINDINGS: CT head: No hyperdense hemorrhage or space-occupying mass. No hydrocephalus or midline shift. No evidence of acute territorial infarct. Global atrophy with periventricular white matter hypoattenuation has not substantially changed. No acute skull fracture. The paranasal sinuses and mastoid air cells are clear. CT cervical spine: There is no acute fracture or traumatic malalignment in the cervical spine. Severe degenerative disc disease throughout multiple levels is present. However, there is no high-grade spinal canal narrowing. Degenerative pannus formation is present posterior to the dens. Large multi-nodule thyroid goiter asymmetric to the right is unchanged since 2012. Lung apices are clear. Calcified atherosclerotic plaques of the bilateral carotid bulbs. IMPRESSION: 1. No acute intracranial hemorrhage or skull fracture. 2. No acute fracture or traumatic malalignment of the cervical spine. 3. Moderate to severe degenerative spondylosis of the cervical spine, however, no high-grade spinal canal narrowing is present. 4. Multinodular thyroid goiter is stable since 06/04/2012. Dictated by: Dictated on workstation # [id number]
[2017-10-06] MEDS ORDERED: CEPH-507 PO (10:45)
[2017-10-06 10:52] VITALS: BP 143/71
--- OUTSIDE RECORDS SUMMARY | 2017-10-07 09:22 | XMS REPORT | Continuity of Care Document ---
Author Author [facility] Organization [facility] Address Unknown Phone Unavailable Allergies Active Description Code Type Severity Reaction Onset Reported/Identified Relationship to Patient Clinical Status Yes No Known Medication Allergies NKMA N/A N/A 03/24/2017 Yes NKANo Known Allergies NKA Miscellaneous Allergy Unknown N/A 03/31/2017 Medications Medication Packaging Start Date Stop Date Route Dosage Sig fentaNYL(fentaNYL) 1 mL 03/24/2017 03/24/2017 IV Push 50 mcg 50 mcg=1 mL, IV Push, Once ondansetron(ondansetron) 2 mL 03/2403/24/2017 IV Push 4 mg 4 mg=2 mL, IV Push, Once fentaNYL(fentaNYL) 0.5 mL 201703/24/2017 IV Push 25 mcg 25 mcg=0.5 mL, IV Push, Once nitrofurantoin(Macrobid 100 mg oral capsule) 1 caps 03/24/2017 03/31/2017 Oral 100 mg 100 mg=1 caps, Oral, BID, for 7 days, 14 caps, 0 Refill(s) oxycodone-acetaminophen(Percocet 5/325 oral tablet) 1 tabs 03/24/2017 03/27/2017 Oral 1 tabs, Oral, q4hr, for 3 days, PRN: as needed for pain, 12 tabs, 0 Refill(s) Problems Date Dx Coded Attending Type Code Diagnosis Diagnosed By 01/31/45 YUNIOR JOYNER MD Ot E10.9 TYPE 1 DIABETES MELLITUS WITHOUT COMPLIC 01/31/45 YUNIOR JOYNER MD Ot I10 ESSENTIAL (PRIMARY) HYPERTENSION 02/01/1428 YUNIOR JOYNER MD Ot 724.5 02/01/1428 YUNIOR JOYNER MD Ot M54.9 01/01/2011 Ot 250.00 DIAB CASSIA WO COMPL, TYPE II OR UNSPEC TY 01/01/2011 Ot 272.0 PURE HYPERCHOLESTEROLEM 01/01/2011 Ot 401.9 HYPERTENSION NOS 01/01/2011 Ot 414.01 CORONARY 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 01/01/2011 Ot 562.10 DIVERTICULOSIS COLON (W/O [...] NOS 06/05/2012 Ot 414.01 CORONARY 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 06/05/2012 Ot 780.2 SYNCOPE AND COLLAPSE [...] SIENA Florez Ot V67.9 03/03/2014 TOM MARQUES RECORDS SUPERVISOR Ot 250.00 03/03/2014 TOM MARQUES RECORDS SUPERVISOR Ot 272.4 03/03/2014 TOM MARQUES RECORDS SUPERVISOR Ot 414.00 03/03/2014 TOM MARQUES RECORDS SUPERVISOR Ot V58.69 03/03/2014 YECENIA MCKEON FACC, ALI [...] FACC, ALI FACP CCDS Ot 745.5 03/03/2014 MED MCKEON, SIENA Florez Ot 250.00 03/03/2014 MED MCKEON, SIENA M Ot 272.4 03/03/2014 MELISSA MCKEON, DORIAN P Ot 241.0 03/03/2014 MED MCKEON, SIENA Florez Ot V76.12 04/03/2014 TOM MARQUES L RECORDS SUPERVISOR Ot 272.4 07/23/2014 MELISSA MCKEON, DORIAN P Ot 241.1 08/18/2014 MELISSA MCKEON, DORIAN P Ot 241.1 09/20/2014 BAIJUAN DAVID TOM L RECORDS SUPERVISOR Ot 272.4 09/20/2014 JERALD TOM L RECORDS SUPERVISOR Ot 414.00 10/07/2014 BAIMA TOM L RECORDS SUPERVISOR Ot 272.4 10/07/2014 BAIMA TOM L RECORDS SUPERVISOR Ot 414.00 11/18/2014 AR MCKEON, YUNIOR Acosta Ot 719.45 11/18/2014 AR MCKEON, YUNIOR Acosta Ot 724.2 11/18/2014 AR MCKEON, YUNIOR Acosta Ot 729.5 11/18/2014 AR MCKEON, YUNIOR Acosta Ot V15.88 12/08/2014 YUNIOR JOYNER MD Ot 719.45 12/08/2014 AR MCKEON, YUNIOR Acosta Ot 724.2 12/08/2014 YUNIOR JOYNER MD Ot 729.5 12/08/2014 YUNIOR JOYNER MD Ot V15.88 12/20/2014 YUNIOR JOYNER MD Ot 719.45 12/20/2014 YUNIOR JOYNER MD Ot 724.2 12/20/2014 AR MCKEON, YUNIOR Dave Ot 729.5 12/20/2014 AR MCKEON, YUNIOR Acosta Ot V15.88 12/27/2014 AR MCKEON, YUNIOR Acosta [...] SIENA Florez Ot V67.9 03/22/2015 TOM MARQUES RECORDS SUPERVISOR Ot 250.00 03/22/2015 TOM MARQUES RECORDS SUPERVISOR Ot 272.4 03/22/2015 TOM MARQUES RECORDS SUPERVISOR Ot 414.00 03/22/2015 TOM MARQUES RECORDS SUPERVISOR Ot V58.69 03/22/2015 YECENIA MCKEON FACC, CHEN KNOXP CCDS Ot 414.00 03/22/2015 CANDIE FRANCIS APRN Ot 241.0 03/22/2015 MELISSA MCKEON, DORIAN P Ot 240.9 03/22/2015 MELISSA MCKEON, DORIAN P [...] FACP CCDS Ot 447.9 03/22/2015 YECENIA MCKEON FACC, ALI FACP CCDS Ot 733.00 03/22/2015 YECENIA MCKEON FACC, ALI FACP CCDS Ot 745.5 03/22/2015 MED MCKEON, SIENA Florez Ot 250.00 03/22/2015 SIENA JOVEL MD Ot 272.4 03/22/2015 MELISSA MCKEON, DORIAN Cortes Ot 241.0 03/22/2015 SIENA JOVEL MD Ot V76.12 03/22/2015 TOM MARQUES RECORDS SUPERVISOR Ot 272.4 03/22/2015 DORIAN TORRES MD Ot 241.1 03/22/2015 TOM MARQUES RECORDS SUPERVISOR Ot 272.4 03/22/2015 TOM MARQUES L RECORDS SUPERVISOR Ot 414.00 03/22/2015 AR MCKEON, YUNIOR Acosta Ot 719.45 03/22/2015 AR MCKEON, YUNIOR Acosta Ot 724.2 03/22/2015 AR MCKEON, YUNIOR Acosta Ot 729.5 03/22/2015 AR MCKEON, YUNIOR Dave Ot V15.88 03/22/2015 AR MCKEON, YUNIOR Dave Ot V76.12 03/30/2015 Ot 272.4 03/30/2015 Ot [...] 241.0 03/30/2015 MED MCKEON, SIENA Florez Ot V67.9 03/30/2015 TOM MARQUES RECORDS SUPERVISOR Ot 250.00 03/30/2015 TOM MARQUES RECORDS SUPERVISOR Ot 272.4 03/30/2015 TOM MARQUES RECORDS SUPERVISOR Ot 414.00 03/30/2015 TOM MARQUES RECORDS SUPERVISOR Ot V58.69 03/30/2015 YECENIA MCKEON FAC, CHEN GRAHAM CCDS Ot 414.00 03/30/2015 CANDIE FRANCIS APRN [...] FACP CCDS Ot 733.00 03/30/2015 YECENIA MCKEON FACC, ALI FACP CCDS Ot 745.5 03/30/2015 MED MCKEON, SIENA Florez Ot 250.00 03/30/2015 SIENA JOVEL MD Ot 272.4 03/30/2015 MELISSA MCKEON, DORIAN Cortes Ot 241.0 03/30/2015 SIENA JOVEL MD Ot V76.12 03/30/2015 TOM MARQUES RECORDS SUPERVISOR Ot 272.4 03/30/2015 DORIAN TORRES MD Ot 241.1 03/30/2015 TOM MARQUES RECORDS SUPERVISOR Ot 272.4 03/30/2015 TOM MARQUES RECORDS SUPERVISOR Ot 414.00 03/30/2015 AR MCKEON, YUNIOR Acosta Ot 719.45 03/30/2015 AR MCKEON, YUNIOR Acosta Ot 724.2 03/30/2015 YUNIOR JOYNER MD Ot 729.5 03/30/2015 YUNIOR JOYNER MD Ot V15.88 03/30/2015 AR MCKEON, YUNIOR Acosta Ot V76.12 04/19/2015 AR MCKEON, YUNIOR Acosta Ot M54.9 04/29/2015 YECENIA MCKEON FAC, ALI FACP CCDS Ot E78.5 04/29/2015 YECENIA MCKEON FAC, ALI FACP CCDS Ot I25.10 05/30/2015 AR MCKEON, YUNIOR Acosta Ot 724.5 BACKACHE NOS 05/30/2015 AR MCKEON, YUNIOR Acosta Ot M54.9 DORSALGIA, UNSPECIFIED 08/18/2015 MELISSA MCKEON, DORIAN P Ot E04.2 NONTOXIC MULTINODULAR GOITER 09/07/2015 MELISSA MCKEON, DORIAN P Ot E04.2 NONTOXIC MULTINODULAR GOITER 09/21/2015 MELISSA MCKEON, DORIAN P Ot E04.2 NONTOXIC MULTINODULAR GOITER 11/16/2015 BAIMA, TOM L RECORDS SUPERVISOR Ot E78.4 OTHER HYPERLIPIDEMIA 11/16/2015 BAIMA, TOM L RECORDS SUPERVISOR Ot I10 ESSENTIAL (PRIMARY) HYPERTENSION 11/16/2015 BAIMA, TOM L RECORDS SUPERVISOR Ot I25.10 ATHSCL HEART DISEASE OF [place] CORONARY 11/16/2015 BAIMA, TOM L RECORDS SUPERVISOR Ot I47.1 SUPRAVENTRICULAR TACHYCARDIA 11/16/2015 BAIMA, TOM L RECORDS SUPERVISOR Ot R53.81 OTHER MALAISE 12/07/2015 BAIMA, TOM L RECORDS SUPERVISOR Ot E78.4 OTHER HYPERLIPIDEMIA 12/07/2015 BAIMA, TOM L RECORDS SUPERVISOR Ot I10 ESSENTIAL (PRIMARY) HYPERTENSION 12/07/2015 BAIMA, TOM L RECORDS SUPERVISOR Ot I25.10 ATHSCL HEART DISEASE OF [place] CORONARY 12/07/2015 BAIMA, TOM L RECORDS SUPERVISOR Ot I47.1 SUPRAVENTRICULAR TACHYCARDIA 12/07/2015 BAIMA, TOM L RECORDS SUPERVISOR Ot R53.81 OTHER MALAISE 12/14/2015 BAIMA, TOM L RECORDS SUPERVISOR Ot E78.4 OTHER HYPERLIPIDEMIA 12/14/2015 BAIMA, TOM L RECORDS SUPERVISOR Ot I10 ESSENTIAL (PRIMARY) HYPERTENSION 12/14/2015 BAIMA, TOM L RECORDS SUPERVISOR Ot I25.10 ATHSCL HEART DISEASE OF [place] CORONARY 12/14/2015 BAIMA, TOM L RECORDS SUPERVISOR Ot I47.1 SUPRAVENTRICULAR TACHYCARDIA 12/14/2015 TOM MARQUES Ot R53.81 OTHER MALAISE 12/28/2015 Ot 272.4 HYPERLIPIDEMIA NEC/NOS 12/28/2015 Ot 414.01 CORONARY 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 12/28/2015 Ot 433.10 CAROTID ARTERY OCCLUSION [...] DORIAN Cortes Ot 240.9 GOITER NOS 12/28/2015 MELISSA MCKEON, DORIAN Cortes Ot 241.0 NONTOX UNINODULAR GOITER 12/28/2015 MED MCKEON, SIENA Florez Ot V67.9 FOLLOW-UP EXAM NOS 12/28/2015 BAIMA, TOM L RECORDS SUPERVISOR Ot 250.00 DIAB CASSIA WO COMPL, TYPE II OR UNSPEC TY 12/28/2015 TOM MARQUES RECORDS SUPERVISOR Ot 272.4 HYPERLIPIDEMIA NEC/NOS 12/28/2015 TOM MARQUES RECORDS SUPERVISOR Ot 414.00 CORON ATHEROSCLER NOS TYPE VESSEL, NATIV 12/28/2015 TOM MARQUES RECORDS SUPERVISOR Ot V58.69 OTH MED,LT,CURRENT USE 12/28/2015 YECENIA KNOXC, ALI FACP CCDS Ot 414.00 CORON ATHEROSCLER NOS TYPE VESSEL, NATIV 12/28/2015 CANDIE FRANCIS CLINICAL LIAISON Ot 241.0 NONTOX UNINODULAR GOITER 12/28/2015 MELISSA MCKEON, DORIAN Cortes Ot 240.9 GOITER NOS 12/28/2015 MELISSA MCKEON, DORIAN Cortes Ot 780.79 OTH MALAISE FATIGUE 12/28/2015 YECENIA [...] 447.9 ARTERIAL DISEASE NOS 12/28/2015 YECENIA MCKEON FAC, ALI FACP CCDS Ot 733.00 OSTEOPOROSIS NOS 12/28/2015 YECENIA MCKEON FAC, ALI FACP CCDS Ot 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 12/28/2015 MED MCKEON, SIENA Florez Ot 250.00 DIAB CASSIA WO COMPL, TYPE II OR UNSPEC TY 12/28/2015 MED MCKEON, SIENA Florez Ot 272.4 HYPERLIPIDEMIA NEC/NOS 12/28/2015 DORIAN TORRES MD Ot 241.0 NONTOX UNINODULAR GOITER 12/28/2015 MED MCKEON, SIENA Florez Ot V76.12 OTH SCREEN MAMMO-MALIGN NEOPLASM OF [place] 12/28/2015 TOM MARQUES L RECORDS SUPERVISOR Ot 272.4 HYPERLIPIDEMIA NEC/NOS 12/28/2015 DORIAN TORRES MD Ot 241.1 NONTOX MULTINODUL GOITER 12/28/2015 TOM MARQUES L RECORDS SUPERVISOR Ot 272.4 HYPERLIPIDEMIA NEC/NOS 12/28/2015 TOM MARQUES L RECORDS SUPERVISOR Ot 414.00 CORON ATHEROSCLER NOS TYPE VESSEL, NATIV 12/28/2015 AR MCKEON, YUNIOR Acosta Ot 719.45 JOINT PAIN-PELVIS 12/28/2015 AR MCKEON, YUNIOR Acosta Ot 724.2 LUMBAGO 12/28/2015 AR MCKEON, YUNIOR Acosta Ot 729.5 PAIN IN LIMB 12/28/2015 AR MCKEON, YUNIOR Acosta Ot V15.88 HISTORY OF FALL 12/28/2015 YUNIOR JOYNER MD Ot V76.12 OTH SCREEN MAMMO-MALIGN NEOPLASM OF [place] 12/28/2015 YECENIA MCKEON [facility], ALI FACP CCDS Ot E78.5 HYPERLIPIDEMIA, UNSPECIFIED 12/28/2015 YECENIA MCKEON [facility], ALI FACP CCDS Ot I25.10 ATHSCL HEART DISEASE OF [place] CORONARY 12/28/2015 DORIAN TORRES MD Ot E04.2 NONTOXIC MULTINODULAR GOITER 12/28/2015 TOM MARQUES L RECORDS SUPERVISOR Ot E78.4 OTHER HYPERLIPIDEMIA 12/28/2015 JERALD TOM L RECORDS SUPERVISOR Ot I10 ESSENTIAL (PRIMARY) HYPERTENSION 12/28/2015 JUAN CARLOS MARQUESHER L RECORDS SUPERVISOR Ot I25.10 ATHSCL HEART DISEASE OF [place] CORONARY 12/28/2015 TOM MARQUES L RECORDS SUPERVISOR Ot I47.1 SUPRAVENTRICULAR TACHYCARDIA 12/28/2015 BAITOM FALL L RECORDS SUPERVISOR Ot R53.81 OTHER MALAISE 12/29/2015 BAIMA, TOM L RECORDS SUPERVISOR Ot E78.4 OTHER HYPERLIPIDEMIA 12/29/2015 BAIMA, TOM L RECORDS SUPERVISOR Ot I25.10 ATHSCL HEART DISEASE OF [place] CORONARY 12/29/2015 BAIMAJUAN CARLOSTOM L RECORDS SUPERVISOR Ot 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 01/17/2016 BAIMA TOM L RECORDS SUPERVISOR Ot E78.4 OTHER HYPERLIPIDEMIA 01/17/2016 BAIMA, TOM L RECORDS SUPERVISOR Ot I25.10 ATHSCL HEART DISEASE OF [place] CORONARY 01/17/2016 BAIMATOM L RECORDS SUPERVISOR Ot I65.23 OCCLUSION AND STENOSIS OF BILATERAL [...] 02/08/2016 Ot 793.80 UNSPEC ABNORMAL MAMMOGRAM 02/08/2016 DORIAN TORRES MD Ot 240.9 GOITER NOS 02/08/2016 DORIAN TORRES MD Ot 241.0 NONTOX UNINODULAR GOITER 02/08/2016 MED MCKEON, SIENA Florez Ot V67.9 FOLLOW-UP EXAM NOS 02/08/2016 TOM MARQUES Claudia RECORDS SUPERVISOR Ot 250.00 DIAB CASSIA WO COMPL, TYPE II OR UNSPEC TY 02/08/2016 BAIJUAN DAVID TOM L RECORDS SUPERVISOR Ot 272.4 HYPERLIPIDEMIA NEC/NOS 02/08/2016 ELVISJUAN DAVID TOM L RECORDS SUPERVISOR Ot 414.00 CORON ATHEROSCLER NOS TYPE VESSEL, NATIV 02/08/2016 TOM MARQUES Claudia RECORDS SUPERVISOR Ot V58.69 OTH MED,LT,CURRENT USE 02/08/2016 YECENIA [...] CCDS Ot 401.9 HYPERTENSION NOS 02/08/2016 YECENIA KNOXC, ALI FACP CCDS Ot 414.00 CORON ATHEROSCLER [...] CCDS Ot 272.4 HYPERLIPIDEMIA NEC/NOS 02/08/2016 YECENIA KNOXC, ALI FACP CCDS Ot 362.81 RETINAL HEMORRHAGE 02/08/2016 YECENIA KNOXC, ALI FACP CCDS Ot 401.9 HYPERTENSION NOS [...] OTH SCREEN MAMMO-MALIGN NEOPLASM OF [place] 02/08/2016 OTM MARQUES RECORDS SUPERVISOR Ot 272.4 HYPERLIPIDEMIA NEC/NOS 02/08/2016 DORIAN TORRES MD Ot 241.1 NONTOX MULTINODUL GOITER 02/08/2016 TOM MARQUES RECORDS SUPERVISOR Ot 272.4 HYPERLIPIDEMIA NEC/NOS 02/08/2016 TOM MARQUES RECORDS SUPERVISOR Ot 414.00 CORON ATHEROSCLER NOS TYPE VESSEL, NATIV 02/08/2016 YUNIOR JOYNER MD Ot 719.45 JOINT PAIN-PELVIS 02/08/2016 YUNIOR JOYNER MD Ot 724.2 LUMBAGO 02/08/2016 YUNIOR JOYNER MD Ot 729.5 PAIN IN LIMB 02/08/2016 YUNIOR JOYNER MD Ot V15.88 HISTORY OF FALL 02/08/2016 YUNIOR JOYNER MD Ot V76.12 OTH SCREEN MAMMO-MALIGN NEOPLASM OF [place] 02/08/2016 YECENIA MCKEON FACC, CHEN FACP CCDS Ot E78.5 HYPERLIPIDEMIA, UNSPECIFIED 02/08/2016 YECENIA MCKEON FACC, CHEN FACP CCDS Ot I25.10 ATHSCL HEART DISEASE OF [place] CORONARY 02/08/2016 DORIAN TORRES MD Ot E04.2 NONTOXIC MULTINODULAR GOITER 02/08/2016 TOM MARQUES RECORDS SUPERVISOR Ot E78.4 OTHER HYPERLIPIDEMIA 02/08/2016 TOM MARQUES RECORDS SUPERVISOR Ot I10 ESSENTIAL (PRIMARY) HYPERTENSION 02/08/2016 TOM MARQUES RECORDS SUPERVISOR Ot I25.10 ATHSCL HEART DISEASE OF [place] CORONARY 02/08/2016 TOM MARQUES RECORDS SUPERVISOR Ot I47.1 SUPRAVENTRICULAR TACHYCARDIA 02/08/2016 TOM MARQUES RECORDS SUPERVISOR Ot R53.81 OTHER MALAISE 02/08/2016 TOM MARQUES RECORDS SUPERVISOR Ot E78.4 OTHER HYPERLIPIDEMIA 02/08/2016 TOM MARQUES RECORDS SUPERVISOR Ot I25.10 ATHSCL HEART DISEASE OF [place] CORONARY 02/08/2016 TOM MARQUES RECORDS SUPERVISOR Ot 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 02/08/2016 ANJU FRANCIS CLINICAL LIAISON Ot Z12.31 ENCNTR SCREEN MAMMOGRAM FOR MALIGNANT NE 02/09/2016 ANJU FRANCIS CLINICAL LIAISON Ot Z12.31 ENCNTR SCREEN MAMMOGRAM FOR MALIGNANT NE 02/09/2016 ANJU FRANCIS CLINICAL LIAISON Ot Z12.31 ENCNTR SCREEN MAMMOGRAM FOR MALIGNANT NE 03/01/2016 ANJU FRANCIS CLINICAL LIAISON Ot Z12.31 ENCNTR SCREEN MAMMOGRAM FOR MALIGNANT [...] UNSPEC ABNORMAL MAMMOGRAM 05/14/2016 MELISSA MCKEON, DORIAN P Ot 240.9 GOITER NOS 05/14/2016 DORIAN TORRES MD P Ot 241.0 NONTOX UNINODULAR GOITER 05/14/2016 MED MCKEON, SIENA Florez Ot V67.9 FOLLOW-UP EXAM NOS 05/14/2016 TOM MARQUES RECORDS SUPERVISOR Ot 250.00 DIAB CASSIA WO COMPL, TYPE II OR UNSPEC TY 05/14/2016 TOM MARQUES RECORDS SUPERVISOR Ot 272.4 HYPERLIPIDEMIA NEC/NOS 05/14/2016 TOM MARQUES RECORDS SUPERVISOR Ot 414.00 CORON ATHEROSCLER NOS TYPE VESSEL, NATIV 05/14/2016 TOM MARQUES RECORDS SUPERVISOR Ot V58.69 OTH MED,LT,CURRENT USE 05/14/2016 YECENIA MCKEON [facility], ALI FACP CCDS Ot 414.00 CORON ATHEROSCLER NOS TYPE VESSEL, NATIV 05/14/2016 CANDIE FRANCIS APRN Ot 241.0 NONTOX UNINODULAR GOITER 05/14/2016 DORIAN TORRES MD P Ot 240.9 GOITER NOS 05/14/2016 DORIAN TORRES MD Ot 780.79 OTH MALAISE FATIGUE 05/14/2016 YECENIA [...] Ot 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 05/14/2016 YECENIA MD FACC, ALI FACP CCDS Ot 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 05/14/2016 YECENIA MD FACC, ALI FACP CCDS Ot 250.00 DIAB CASSIA WO COMPL, TYPE II OR UNSPEC TY 05/14/2016 YECENIA MD FACC, ALI FACP CCDS Ot 272.4 HYPERLIPIDEMIA NEC/NOS 05/14/2016 YECENIA MD FACC, ALI FACP CCDS Ot 362.81 RETINAL HEMORRHAGE 05/14/2016 YECENIA MCKEON FACC, ALI FACP CCDS Ot 401.9 HYPERTENSION NOS 05/14/2016 YECENIA MCKEON FACC, ALI FACP CCDS Ot 414.00 CORON ATHEROSCLER NOS TYPE VESSEL, NATIV 05/14/2016 YECENIA MCKEON FACC, ALI FACP CCDS Ot 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 05/14/2016 YECENIA MCKEON FACC, ALI FACP CCDS [...] MAMMO-MALIGN NEOPLASM OF TER[place] 05/14/2016 TOM MARQUES RECORDS SUPERVISOR Ot 272.4 HYPERLIPIDEMIA NEC/NOS 05/14/2016 DORIAN TORRES MD Ot 241.1 NONTOX MULTINODUL GOITER 05/14/2016 TOM MARQUES RECORDS SUPERVISOR Ot 272.4 HYPERLIPIDEMIA NEC/NOS 05/14/2016 TOM MARQUES RECORDS SUPERVISOR Ot 414.00 CORON ATHEROSCLER NOS TYPE VESSEL, NATIV 05/14/2016 YUNIOR JOYNER MD Ot 719.45 JOINT PAIN-PELVIS 05/14/2016 YUNIOR JOYNER MD Ot 724.2 LUMBAGO 05/14/2016 YUNIOR JOYNER MD Ot 729.5 PAIN IN LIMB 05/14/2016 YUNIOR JOYNER MD Ot V15.88 HISTORY OF FALL 05/14/2016 YUNIOR JOYNER MD Ot V76.12 OTH SCREEN MAMMO-MALIGN NEOPLASM OF TER[place] 05/14/2016 YECENIA MCKEON FAC, ALI FACP CCDS Ot E78.5 HYPERLIPIDEMIA, UNSPECIFIED 05/14/2016 YECENIA MCKEON FACC, ALI FACP CCDS Ot I25.10 ATHSCL HEART DISEASE OF [place] CORONARY 05/14/2016 MELISSA MCKEON, DORIAN Cortes Ot E04.2 NONTOXIC MULTINODULAR GOITER 05/14/2016 BAIMA, TOM L RECORDS SUPERVISOR Ot E78.4 OTHER HYPERLIPIDEMIA 05/14/2016 BAIMA, TOM L RECORDS SUPERVISOR Ot I10 ESSENTIAL (PRIMARY) HYPERTENSION 05/14/2016 BAIMA, TOM L RECORDS SUPERVISOR Ot I25.10 ATHSCL HEART DISEASE OF [place] CORONARY 05/14/2016 BAIMA TOM L RECORDS SUPERVISOR Ot I47.1 SUPRAVENTRICULAR TACHYCARDIA 05/14/2016 BAIMA, TOM L RECORDS SUPERVISOR Ot R53.81 OTHER MALAISE 05/14/2016 BAIMA, TOM L RECORDS SUPERVISOR Ot E78.4 OTHER HYPERLIPIDEMIA 05/14/2016 BAIMA, TOM L RECORDS SUPERVISOR Ot I25.10 ATHSCL HEART DISEASE OF [place] CORONARY 05/14/2016 BAIMA, TOM L RECORDS SUPERVISOR Ot 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 05/14/2016 ANJU FRANCIS APRN Ot Z12.31 ENCNTR SCREEN MAMMOGRAM FOR MALIGNANT NE 05/14/2016 MELISSA MCKEON, DORIAN Cortes Ot E04.2 NONTOXIC MULTINODULAR GOITER 06/05/2016 YUNIOR JOYNER MD Ot E03.9 HYPOTHYROIDISM, UNSPECIFIED 06/05/2016 YUNIOR JOYNER MD Ot 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 06/05/2016 YUNIOR JOYNER MD Ot I10 ESSENTIAL (PRIMARY) HYPERTENSION 06/18/2016 YOUSIF BLANCO MD Ot 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 06/18/2016 YOUSIF BLANCO MD Ot S99.912A UNSPECIFIED INJURY OF LEFT ANKLE, INITIA 06/18/2016 YOUSIF BLANCO MD Ot W10.9XXA FALL (ON) (FROM) UNSPECIFIED STAIRS AND 06/18/2016 YOUSIF BLANCO MD Ot Y92.[address] IN [facility] NON-INSTITUT (PRIVATE 06/18/2016 YOUSIF BLANCO MD Ot Y99.8 OTHER EXTERNAL CAUSE STATUS 06/18/2016 YOUSIF BLANCO MD Ot Z79.4 CARDROOM SUPERVISOR (CURRENT) USE OF INSULIN 06/18/2016 YOUSIF BLANCO MD Ot 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 06/19/2016 YOUSIF BLANCO MD Ot 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 06/19/2016 YOUSIF BLANCO MD Ot S99.912A UNSPECIFIED INJURY OF LEFT ANKLE, INITIA 06/19/2016 YOUSIF BLANCO MD Ot W10.9XXA FALL (ON) (FROM) UNSPECIFIED STAIRS AND 06/19/2016 YOUSIF BLANCO MD Ot Y92.[address] IN [facility] NON[facility] (PRIVATE 06/19/2016 YOUSIF BLANCO MD Ot Y99.8 OTHER EXTERNAL CAUSE STATUS 06/19/2016 YOUSIF BLANCO MD Ot Z79.4 CARDROOM SUPERVISOR (CURRENT) USE OF INSULIN 06/19/2016 YOUSIF BLANCO MD Ot 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 08/07/2016 YOUSIF BLANCO MD Ot 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 08/07/2016 YOUSIF BLANCO MD Ot S99.912A UNSPECIFIED INJURY OF LEFT ANKLE, INITIA 08/07/2016 YOUSIF BLANCO MD Ot W10.9XXA FALL (ON) (FROM) UNSPECIFIED STAIRS AND 08/07/2016 YOUSIF BLANCO MD Ot Y92.[address] IN [facility] NONINSTITUT (PRIVATE 08/07/2016 YOUSIF BLANCO MD Ot Y99.8 OTHER EXTERNAL CAUSE STATUS 08/07/2016 YOUSIF BLANCO MD Ot Z79.4 CARDROOM SUPERVISOR (CURRENT) USE OF INSULIN 08/07/2016 YOUSIF BLANCO MD Ot 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 10/02/2016 DYLLAN MILLERP Ot 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 10/23/2016 YUNIOR JOYNER MD Ot E10.9 TYPE 1 DIABETES MELLITUS WITHOUT COMPLIC 10/23/2016 YUNIOR JOYNER MD Ot I10 ESSENTIAL (PRIMARY) HYPERTENSION 2016 YUNIOR JOYNER MD Ot E04.1 NONTOXIC SINGLE THYROID NODULE 10/29/2016 DYLLNA MILLERP Ot 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 11/06/2016 DYLLAN MILLER RECORDS SUPERVISOR Ot 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 11/13/2016 [...] MD Ot I25.10 ATHSCL HEART DISEASE OF [place] CORONARY 01/13/2017 ATUL BERGMAN MD Ot R73.09 OTHER ABNORMAL GLUCOSE 01/13/2017 ATUL BERGMAN MD Ot Z79.4 CARDROOM SUPERVISOR (CURRENT) USE OF INSULIN 01/13/2017 ATUL BERGMAN MD, Ot 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 01/21/2017 ATUL BERGMAN MD Ot 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 01/21/2017 ATUL BERGMAN MD Ot E11.9 TYPE 2 DIABETES MELLITUS WITHOUT COMPLIC 01/21/2017 ATUL BERGMAN MD Ot F32.9 MAJOR DEPRESSIVE DISORDER, SINGLE EPISOD 01/21/2017 ATUL BERGMAN MD, Ot F41.9 ANXIETY DISORDER, UNSPECIFIED 01/21/2017 ATUL BERGMAN MD Ot I10 ESSENTIAL (PRIMARY) HYPERTENSION 01/21/2017 ATUL BERGMAN MD Ot I25.10 ATHSCL HEART DISEASE OF [place] CORONARY 01/21/2017 ATUL BERGMAN MD Ot R73.09 OTHER ABNORMAL GLUCOSE 01/21/2017 ATUL BERGMAN MD, Ot Z79.4 JAIL (CURRENT) USE OF INSULIN 01/21/2017 ATUL BERGMAN MD, Ot 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 03/26/2017 Blair Howard Final E11.9 Type 2 diabetes mellitus without complications 03/26/2017 Blair Howard Final M54.41 Lumbago with sciatica, right side 03/26/2017 Blair Howard Reason M54.5 Low back pain 03/26/2017 Blair Howard Final N39.0 Urinary tract infection, site not specified 03/26/2017 Blair Howard Final Z79.4 exterminator termite (current) use of insulin 03/31/2017 YUNIOR JOYNER MD Ot E10.9 TYPE 1 DIABETES MELLITUS WITHOUT COMPLIC 03/31/2017 YUNIOR JOYNER MD Ot I10 ESSENTIAL (PRIMARY) HYPERTENSION 04/02/2017 YUNIOR JOYNER MD Ot 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 04/02/2017 YUNIOR JYONER MD, Ot F41.9 ANXIETY DISORDER, UNSPECIFIED 04/02/2017 YUNIOR JOYNER MD Ot I10 ESSENTIAL (PRIMARY) HYPERTENSION 04/02/2017 YUNIOR JOYNER MD Ot I25.10 ATHSCL HEART DISEASE OF [place] CORONARY 04/02/2017 YUNIOR JOYNER MD Ot M46.1 SACROILIITIS, NOT ELSEWHERE CLASSIFIED 04/02/2017 YUNIOR JOYNER MD Ot M51.36 OTHER INTERVERTEBRAL DISC DEGENERATION, 04/02/2017 YUNIOR JOYNER MD Ot 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.4 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 SUPERVISOR (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5 HYPERLIPIDEMIA, UNSPECIFIED 05/31/2017 BAIMA, TOM L RECORDS SUPERVISOR Ot I10 ESSENTIAL (PRIMARY) HYPERTENSION 05/31/2017 BAIMA, TOM L RECORDS SUPERVISOR Ot I25.10 ATHSCL HEART DISEASE OF [place] CORONARY 05/31/2017 BAIMA, TOM L RECORDS SUPERVISOR Ot I47.1 SUPRAVENTRICULAR TACHYCARDIA 05/31/2017 BAIMA, TOM L RECORDS SUPERVISOR Ot Q21.1 ATRIAL SEPTAL DEFECT 06/24/2017 BAIMA, TOM L RECORDS SUPERVISOR Ot E78.5 HYPERLIPIDEMIA, UNSPECIFIED 06/24/2017 BAIMA, TOM L RECORDS SUPERVISOR Ot I10 ESSENTIAL (PRIMARY) HYPERTENSION 06/24/2017 BAIMA, TOM L RECORDS SUPERVISOR Ot I25.10 ATHSCL HEART DISEASE OF [place] CORONARY 06/24/2017 BAIMA, TOM L RECORDS SUPERVISOR Ot I47.1 SUPRAVENTRICULAR TACHYCARDIA 06/24/2017 BAIMA, TOM L RECORDS SUPERVISOR Ot Q21.1 ATRIAL SEPTAL DEFECT 06/27/2017 BAIMA, TOM L RECORDS SUPERVISOR Ot E78.5 HYPERLIPIDEMIA, UNSPECIFIED 06/27/2017 BAIMA, TOM L RECORDS SUPERVISOR Ot I10 ESSENTIAL (PRIMARY) HYPERTENSION 06/27/2017 BAIMA, TOM L RECORDS SUPERVISOR Ot I25.10 ATHSCL HEART DISEASE OF [place] CORONARY 06/27/2017 BAIMA, TOM L RECORDS SUPERVISOR Ot I47.1 SUPRAVENTRICULAR TACHYCARDIA 06/27/2017 BAIMA, TOM L RECORDS SUPERVISOR Ot Q21.1 ATRIAL SEPTAL DEFECT 08/13/2017 YECENIA MCKEON FACC, ALI FACP CCDS Ot E11.51 TYPE 2 DIABETES W DIABETIC PERIPHERAL AN 08/13/2017 YECENIA MCKEON FACC, ALI FACP CCDS Ot E78.5 HYPERLIPIDEMIA, UNSPECIFIED 08/13/2017 YECENIA MCKEON FACC, ALI FACP CCDS Ot I10 ESSENTIAL (PRIMARY) HYPERTENSION 08/13/2017 YECENIA MCKEON FACC, ALI FACP CCDS Ot I25.10 ATHSCL HEART DISEASE OF [place] CORONARY 08/13/2017 YECENIA MCKEON FACC, ALI FACP CCDS Ot I47.1 SUPRAVENTRICULAR TACHYCARDIA 08/13/2017 YECENIA MCKEON FACC, ALI FACP CCDS Ot 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 08/13/2017 YECENIA MCKEON FACC, ALI FACP CCDS Ot I73.9 PERIPHERAL VASCULAR DISEASE, UNSPECIFIED 08/29/2017 YECENIA MCKEON FACC, ALI FACP CCDS Ot E11.51 TYPE 2 DIABETES W DIABETIC PERIPHERAL AN 08/29/2017 YECENIA MCKEON FACC, ALI FACP CCDS Ot E78.5 HYPERLIPIDEMIA, UNSPECIFIED 08/29/2017 YECENIA MCKEON FACC, ALI FACP CCDS Ot I10 ESSENTIAL (PRIMARY) HYPERTENSION 08/29/2017 YECENIA MCKEON FACC, ALI FACP CCDS Ot I25.10 ATHSCL HEART DISEASE OF [place] CORONARY 08/29/2017 YECENIA MCKEON FACC, ALI FACP CCDS Ot I47.1 SUPRAVENTRICULAR TACHYCARDIA 08/29/2017 YECENIA MCKEON FACC, ALI FACP CCDS Ot 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 08/29/2017 YECENIA KNOXC, ALI FACP CCDS Ot I73.9 PERIPHERAL VASCULAR DISEASE, UNSPECIFIED 08/30/2017 YUNIOR JOYNER MD Ot E01.0 IODINE-DEFICIENCY RELATED DIFFUSE (ENDEM 08/30/2017 YUNIOR JOYNER MD Ot E11.42 TYPE 2 DIABETES MELLITUS WITH DIABETIC P 08/30/2017 YUNIOR JOYNER MD Ot E78.5 HYPERLIPIDEMIA, UNSPECIFIED 08/30/2017 YUNIOR JOYNER MD Ot F32.9 MAJOR DEPRESSIVE DISORDER, SINGLE EPISOD 08/30/2017 YUNIOR JOYNER MD Ot F41.9 ANXIETY DISORDER, UNSPECIFIED 08/30/2017 YUNIOR JOYNER MD Ot I16.0 HYPERTENSIVE URGENCY 08/30/2017 YUNIOR JOYNER MD Ot I25.10 ATHSCL HEART DISEASE OF [place] CORONARY 08/30/2017 YUNIOR JOYNER MD Ot I77.89 OTHER SPECIFIED DISORDERS OF ARTERIES AN 08/30/2017 YUNIOR JOYNER MD Ot M12.9 ARTHROPATHY, UNSPECIFIED 08/30/2017 YUNIOR JOYNER MD Ot M54.6 PAIN IN THORACIC SPINE 08/30/2017 YUNIOR JOYNER MD Ot M81.0 AGE-RELATED OSTEOPOROSIS W/O CURRENT PAT 08/30/2017 YUNIOR JOYNER MD, Ot R07.9 CHEST PAIN, UNSPECIFIED 08/30/2017 YUNIOR JOYNER MD Ot R53.1 WEAKNESS 08/30/2017 YUNIOR JOYNER MD Ot R53.81 OTHER MALAISE 08/30/2017 YUNIOR JOYNER MD Ot Z79.4 JAIL (CURRENT) USE OF INSULIN 08/30/2017 YUNIOR JOYNER MD Ot Z95.5 PRESENCE OF CORONARY ANGIOPLASTY IMPLANT 09/03/2017 YECENIA MCKEON FACC, ALI FACP CCDS Ot E11.51 TYPE 2 DIABETES W DIABETIC PERIPHERAL AN 09/03/2017 YECENIA MCKEON FACC, ALI FACP CCDS Ot E78.5 HYPERLIPIDEMIA, UNSPECIFIED 09/03/2017 YECENIA MCKEON FACC, ALI FACP CCDS Ot I10 ESSENTIAL (PRIMARY) HYPERTENSION 09/03/2017 YECENIA MCKEON FACC, ALI FACP CCDS Ot I25.10 ATHSCL HEART DISEASE OF [place] CORONARY 09/03/2017 YECENIA MCKEON FACC, ALI FACP CCDS Ot I47.1 SUPRAVENTRICULAR TACHYCARDIA 09/03/2017 YECENIA MCKEON FACC, ALI FACP CCDS Ot 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 09/03/2017 YECENIA MCKEON FACVlad, ALI FACP CCDS Ot I73.9 PERIPHERAL VASCULAR DISEASE, UNSPECIFIED 09/05/2017 YUNIOR JOYNER MD Ot E03.9 HYPOTHYROIDISM, UNSPECIFIED 09/05/2017 YUNIOR JOYNER MD Ot E10.9 TYPE 1 DIABETES MELLITUS WITHOUT COMPLIC 09/05/2017 YUNIOR JOYNER MD Ot E78.5 HYPERLIPIDEMIA, UNSPECIFIED 09/05/2017 YUNIOR JOYNER MD Ot I10 ESSENTIAL (PRIMARY) HYPERTENSION 09/05/2017 YUNIOR JOYNER MD Ot 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 Results Test [...] NRG Blood erythrocyte morphology finding identification NORMAL NR Comprehensive metabolic panel - 06/18/16 03:11 Serum [...] culture - 06/18/16 03:20 Bacterial urine culture [id number] NRG COLONY COUNT <10,000 NRG FTX;REPORTABLE SENSITIVITY [...] susceptibility test by minimum inhibitory concentration - NRG Capillary blood glucose measurement by glucometer [...] measurement by glucometer (mass/volume) 183 mg/dL 70-110 Glucose NPT - 03/24/17 13:08 Glucose NPT 202 mg/dL 70-100 CBC With Platelet and Differential - 03/24/17 13:57 Absolute Basophils 0.01 10*3/uL 0.00-0.20 Absolute Eosinophils 0.00 10*3/uL 0.00-0.50 Absolute Lymphocytes 0.46 10*3/uL 0.80-3.30 Absolute Monocytes 1.19 10*3/uL 0.30-1.00 Absolute Neutrophils 10.07 10*3/uL 1.90-7.00 Basophils 0 % 0-2 Eosinophils 0 % 0-4 HCT 34.7 % 37.0-47.0 HGB 11.8 g/dL 12.0-16.0 Immature Granulocytes 0.2 % 0.0-1.0 Lymphocytes 4 % 20-46 MCH 30.4 pg 27.0-32.0 MCHC 34.0 g/dL 32.0-36.0 MCV 89.4 fL 82.0-99.0 Monocytes 10 % 4-11 MPV 10.1 fL 9.4-12.4 Neutrophils 86 % 51-75 Nucleated RBC Automated 0.0 /100 WBC Platelet Count 194 K/uL 150-400 RBC 3.88 10*6/uL 4.00-5.20 RDW 12.8 % 11.5-14.5 WBC 11.8 K/uL 4.8-10.8 Comprehensive Metabolic Panel (CMP) - 03/24/17 13:57 Albumin 3.9 g/dL 3.5-4.8 Alkaline Phosphatase 67 U/L 26-104 ALT (SGPT) 20 U/L 14-54 Anion Gap 9 mEq/L 3-20 AST (SGOT) 31 U/L 15-41 Bilirubin Total 0.9 mg/dL 0.2-1.2 BUN 25 mg/dL 4-20 Calcium 9.5 mg/dL 8.6-10.0 Chloride 106 mEq/L 99-109 CO2 25 mEq/L 22-32 Creatinine 1.02 mg/dL 0.44-1.03 Globulin 2.2 g/dL 1.9-4.3 Glucose 148 mg/dL 70-100 Potassium 3.8 mEq/L 3.6-5.1 Protein 6.1 g/dL 6.1-7.9 Sodium 140 mEq/L 136-144 eGFR - 03/24/17 13:57 eGFR 51 mL/min >60 Troponin - 03/24/17 13:57 Troponin <0.05 ng/mL <0.06 Urinalysis with reflex microscopic - 03/24/17 13:57 Appearance Sl Cloudy NA Bilirubin Negative NA Negative Blood Negative NA Negative Color Yellow NA Glucose, Urine Pos 3+ Negative Ketones Pos 2+ Negative Leukocyte Esterase Trace NA Negative Nitrites Negative NA Negative pH 5.0 NA 5.0-8.0 Protein Pos 1+ NA Negative Specific [place] 1.025 NA 1.003-1.030 UA Collection type Clean Catch NA Urobilinogen 2.0 mg/dL <1.0 Urine Microscopic - 03/24/17 13:57 Bacteria Numerous NA Epithelial Cells 2 /HPF Granular Casts 1 /LPF Hyaline Casts 1 /LPF 0-3 RBC, Urine 0 /HPF 0-2 Urine Mucus Present NA WBC, Urine 10 /HPF 0-4 Glucose NPT - 03/24/17 15:42 Glucose NPT 96 mg/dL 70-100 Capillary blood glucose measurement by glucometer (mass/volume) [...] blood basophil count (count/volume) 0.0 10*3/uL 0.0-0.1 Capillary blood glucose measurement by glucometer (mass/volume) - 03/31/17 15: 52 Capillary blood glucose measurement by glucometer (mass/volume) 401 mg/dL 70-110 Capillary blood glucose measurement by glucometer (mass/volume) - 03/31/17 20: 28 Capillary blood glucose measurement by glucometer (mass/volume) 354 mg/dL 70-110 Capillary blood glucose measurement by glucometer (mass/volume) - 04/01/17 05: 25 Capillary blood glucose measurement by glucometer (mass/volume) 427 mg/dL 70-110 Capillary blood glucose measurement by glucometer (mass/volume) - 04/01/17 11: 21 Capillary blood glucose measurement by glucometer (mass/volume) 279 mg/dL 70-110 Capillary blood glucose measurement by glucometer (mass/volume) - 04/01/17 15: 51 Capillary blood glucose measurement by glucometer (mass/volume) 144 mg/dL 70-110 Capillary blood glucose measurement by glucometer (mass/volume) - 04/01/17 20: 51 Capillary blood glucose measurement by glucometer (mass/volume) 64 mg/dL 70-110 Capillary blood glucose measurement by glucometer (mass/volume) - 04/01/17 21: 20 Capillary blood glucose measurement by glucometer (mass/volume) 79 mg/dL 70-110 Capillary blood glucose measurement by glucometer (mass/volume) - 04/01/17 23: 38 Capillary blood glucose measurement by glucometer (mass/volume) 101 mg/dL 70-110 Capillary blood glucose measurement by glucometer (mass/volume) - 04/02/17 05: 50 Capillary blood glucose measurement by glucometer (mass/volume) 135 mg/dL 70-110 Capillary blood glucose measurement by glucometer (mass/volume) - 04/02/17 11: 16 Capillary blood glucose measurement by glucometer (mass/volume) 335 mg/dL 70-110 Complete blood count (CBC) with automated white blood cell (WBC) differential - 08/29/17 19:10 Blood leukocytes automated count (number/volume) 4.1 10*3/uL 4.3-11.0 Blood erythrocytes automated count (number/volume) 3.96 10*6/uL 4.35-5.85 Venous blood hemoglobin measurement (mass/volume) 12.6 g/dL 11.5-16.0 Blood hematocrit (volume fraction) 35 % 35-52 Automated erythrocyte mean corpuscular volume 89 [foz_us] 80-99 Automated erythrocyte mean corpuscular hemoglobin (mass per erythrocyte) 32 pg 25-34 Automated erythrocyte mean corpuscular hemoglobin concentration measurement ( mass/volume) 36 g/dL 32-36 Automated erythrocyte distribution width ratio 12.3 % 10.0-14.5 Automated blood platelet count (count/volume) 185 10*3/uL 130-400 Automated blood platelet mean volume measurement 9.3 [foz_us] 7.4-10.4 Automated blood neutrophils/100 leukocytes 68 % 42-75 Automated blood lymphocytes/100 leukocytes 21 % 12-44 Blood monocytes/100 leukocytes 10 % 0-12 Automated blood eosinophils/100 leukocytes 1 % 0-10 Automated blood basophils/100 leukocytes 0 % 0-10 Blood neutrophils automated count (number/volume) 2.8 10*3 1.8-7.8 Blood lymphocytes automated count (number/volume) 0.9 10*3 1.0-4.0 Blood monocytes automated count (number/volume) 0.4 10*3 0.0-1.0 Automated eosinophil count 0.0 10*3/uL 0.0-0.3 Automated blood basophil count (count/volume) 0.0 10*3/uL 0.0-0.1 PT panel in platelet poor plasma by coagulation assay - 08/29/17 19:10 Prothrombin time (PT) in platelet poor plasma by coagulation assay 13.9 s 12.2-14.7 INR in platelet poor plasma or blood by coagulation assay 1.1 0.8-1.4 Activated partial thromboplastin time (aPTT) in platelet poor plasma bycoagulation assay - 08/29/17 19:10 Activated partial thromboplastin time (aPTT) in platelet poor plasma bycoagulation assay 26 s 24-35 Serum or plasma C reactive protein measurement (mass/volume) - 08/29/17 19:10 Serum or plasma C reactive protein measurement (mass/volume) 0.06 mg /dL 0.00-0.50 Comprehensive metabolic panel - 08/29/17 19:10 Serum or plasma sodium measurement (moles/volume) 137 mmol/L 135-145 Serum or plasma potassium measurement (moles/volume) 4.2 mmol/L 3.6-5.0 Serum or plasma chloride measurement (moles/volume) 101 mmol/L 98-107 Carbon dioxide 26 mmol/L 21-32 Serum or plasma anion gap determination (moles/volume) 10 mmol/L 5-14 Serum or plasma urea nitrogen measurement (mass/volume) 21 mg/dL 7-18 Serum or plasma creatinine measurement (mass/volume) 0.82 mg/dL 0.60-1.30 Serum or plasma urea nitrogen/creatinine mass ratio 26 NRG Serum or plasma creatinine measurement with calculation of estimated glomerular filtration rate > NRG Serum or plasma glucose measurement (mass/volume) 266 mg/dL 70-105 Serum or plasma calcium measurement (mass/volume) 9.6 mg/dL 8.5-10.1 Serum or plasma total bilirubin measurement (mass/volume) 0.5 mg/dL 0.1-1.0 Serum or plasma alkaline phosphatase measurement (enzymatic activity/volume) 89 U/L 40-136 Serum or plasma aspartate aminotransferase measurement (enzymatic activity/ volume) 21 U/L 5-34 Serum or plasma alanine aminotransferase measurement (enzymatic activity/volume ) 15 U/L 0-55 Serum or plasma protein measurement (mass/volume) 6.7 g/dL 6.4-8.2 Serum or plasma albumin measurement (mass/volume) 4.2 g/dL 3.2-4.5 Magnesium - 08/29/17 19:10 Magnesium 2.2 mg/dL 1.8-2.4 Erythrocyte sedimentation rate by westergren method - 08/29/17 19:10 Erythrocyte sedimentation rate by westergren method 10 mm 0-30 Serum or plasma troponin i.cardiac measurement (mass/volume) - 08/29/17 19:10 Serum or plasma troponin i.cardiac measurement (mass/volume) < ng/ mL <0.30 Myoglobin, serum - 08/29/17 19:10 Myoglobin, serum 26.7 ng/mL 10.0-92.0 Capillary blood glucose measurement by glucometer (mass/volume) - 08/29/17 21: 34 Capillary blood glucose measurement by glucometer (mass/volume) 241 mg/dL 70-110 Capillary blood glucose measurement by glucometer (mass/volume) - 08/30/17 05: 27 Capillary blood glucose measurement by glucometer (mass/volume) 304 mg/dL 70-110 Complete blood count (CBC) with automated white blood cell (WBC) differential - 08/30/17 06:00 Blood leukocytes automated count (number/volume) 3.7 10*3/uL 4.3-11.0 Blood erythrocytes automated count (number/volume) 3.90 10*6/uL 4.35-5.85 Venous blood hemoglobin measurement (mass/volume) 12.0 g/dL 11.5-16.0 Blood hematocrit (volume fraction) 35 % 35-52 Automated erythrocyte mean corpuscular volume 90 [foz_us] 80-99 Automated erythrocyte mean corpuscular hemoglobin (mass per erythrocyte) 31 pg 25-34 Automated erythrocyte mean corpuscular hemoglobin concentration measurement ( mass/volume) 34 g/dL 32-36 Automated erythrocyte distribution width ratio 12.5 % 10.0-14.5 Automated blood platelet count (count/volume) 186 10*3/uL 130-400 Automated blood platelet mean volume measurement 10.0 [foz_us] 7.4-10.4 Automated blood neutrophils/100 leukocytes 61 % 42-75 Automated blood lymphocytes/100 leukocytes 25 % 12-44 Blood monocytes/100 leukocytes 12 % 0-12 Automated blood eosinophils/100 leukocytes 2 % 0-10 Automated blood basophils/100 leukocytes 1 % 0-10 Blood neutrophils automated count (number/volume) 2.3 10*3 1.8-7.8 Blood lymphocytes automated count (number/volume) 0.9 10*3 1.0-4.0 Blood monocytes automated count (number/volume) 0.4 10*3 0.0-1.0 Automated eosinophil count 0.1 10*3/uL 0.0-0.3 Automated blood basophil count (count/volume) 0.0 10*3/uL 0.0-0.1 Whole blood basic metabolic panel - 08/30/17 06:20 Serum or plasma sodium measurement (moles/volume) 136 mmol/L 135-145 Serum or plasma potassium measurement (moles/volume) 4.3 mmol/L 3.6-5.0 Serum or plasma chloride measurement (moles/volume) 102 mmol/L 98-107 Carbon dioxide 25 mmol/L 21-32 Serum or plasma anion gap determination (moles/volume) 9 mmol/L 5-14 Serum or plasma urea nitrogen measurement (mass/volume) 19 mg/dL 7-18 Serum or plasma creatinine measurement (mass/volume) 0.80 mg/dL 0.60-1.30 Serum or plasma urea nitrogen/creatinine mass ratio 24 NRG Serum or plasma creatinine measurement with calculation of estimated glomerular filtration rate > NRG Serum or plasma glucose measurement (mass/volume) 332 mg/dL 70-105 Serum or plasma calcium measurement (mass/volume) 9.1 mg/dL 8.5-10.1 Lipid 1996 panel - 08/30/17 06:20 Serum or plasma triglyceride measurement (mass/volume) 63 mg/dL <150 Serum or plasma cholesterol measurement (mass/volume) 154 mg/dL < 200 Serum or plasma cholesterol in HDL measurement (mass/volume) 60 mg/ dL 40-60 Cholesterol in LDL [mass/volume] in serum or plasma by direct assay 78 mg/dL 1-129 Serum or plasma cholesterol in VLDL measurement (mass/volume) 13 mg/ dL 5-40 Capillary blood glucose measurement by glucometer (mass/volume) - 08/30/17 08: 54 Capillary blood glucose measurement by glucometer (mass/volume) 288 mg/dL 70-110 Comprehensive metabolic panel - 09/03/17 09:01 Serum or plasma sodium measurement (moles/volume) 139 mmol/L 135-145 Serum or plasma potassium measurement (moles/volume) 4.4 mmol/L 3.6-5.0 Serum or plasma chloride measurement (moles/volume) 106 mmol/L 98-107 Carbon dioxide 26 mmol/L 21-32 Serum or plasma anion gap determination (moles/volume) 7 mmol/L 5-14 Serum or plasma urea nitrogen measurement (mass/volume) 24 mg/dL 7-18 Serum or plasma creatinine measurement (mass/volume) 0.76 mg/dL 0.60-1.30 Serum or plasma urea nitrogen/creatinine mass ratio 32 NRG Serum or plasma creatinine measurement with calculation of estimated glomerular filtration rate > NRG Serum or plasma glucose measurement (mass/volume) 149 mg/dL 70-105 Serum or plasma calcium measurement (mass/volume) 9.0 mg/dL 8.5-10.1 Serum or plasma total bilirubin measurement (mass/volume) 0.6 mg/dL 0.1-1.0 Serum or plasma alkaline phosphatase measurement (enzymatic activity/volume) 67 U/L 40-136 Serum or plasma aspartate aminotransferase measurement (enzymatic activity/ volume) 20 U/L 5-34 Serum or plasma alanine aminotransferase measurement (enzymatic activity/volume ) 14 U/L 0-55 Serum or plasma protein measurement (mass/volume) 5.9 g/dL 6.4-8.2 Serum or plasma albumin measurement (mass/volume) 3.9 g/dL 3.2-4.5 Lipid 1996 panel - 09/03/17 09:01 Serum or plasma triglyceride measurement (mass/volume) 53 mg/dL <150 Serum or plasma cholesterol measurement (mass/volume) 150 mg/dL < 200 Serum or plasma cholesterol in HDL measurement (mass/volume) 59 mg/ dL 40-60 Cholesterol in LDL [mass/volume] in serum or plasma by direct assay 71 mg/dL 1-129 Serum or plasma cholesterol in VLDL measurement (mass/volume) 11 mg/ dL 5-40 THYROID STIMULATING HORMONE - 09/03/17 09:01 THYROID STIMULATING HORMONE 0.92 u[iU]/mL 0.35-4.94 Hemoglobin A1c - 09/03/17 09:01 Blood hemoglobin A1C measurement (mass/volume) 7.6 % 4.0- 5.6 MEAN BLOOD GLUCOSE 171 % <=126 Urine microalbumin measurement by test strip (mass/volume) - 09/03/17 09:13 Urine creatinine measurement (mass/volume) 65 % NRG Microalbumin [mass/volume] in urine 8.3 % 0.0-20.0 Microalbumin/creatinine [ratio] in urine 12.8 mg/g{Cre} 0.0-30.0 Encounters ACCT No. Visit Date/Time Discharge Status Pt. Type Provider Facility Loc./Unit Complaint [id number] 09/03/2017 08:41:00 09/03/2017 23:59:59 CLS Outpatient YUNIOR JOYNER MD [facility] LAB I10 [id number] 08/29/2017 20:26:00 08/30/2017 11:00:00 DIS Outpatient YUNIOR JOYNER MD [facility] ICU HIGH BP [id number] 07/23/2017 14:33:00 07/23/2017 23:59:59 CLS Outpatient YECENIA MCKEON FACC, CHEN GRAHAM CCDS [facility] RAD I73.9 CLAUDICATION [id number] 05/30/2017 13:45:00 05/30/2017 23:59:59 CLS Outpatient TOM MARQUES [facility] CARD CAD I25.10 [id number] 03/31/2017 13:23:00 04/02/2017 16:00:00 DIS Inpatient YUNIOR JOYNER MD [facility] 4TH SCIATICA, INTRACTABLE BACK PAIN [id number] 01/13/2017 20:57:00 01/13/2017 23:18:00 DIS Emergency PACHECO MCKEON, ATUL Mccall [facility] ER BS [id number] 12/02/2016 10:00:00 12/02/2016 23:59:59 CLS Preadmit YUNIOR JOYNER MD [facility] DSME TYPE 1 DIABETES [id number] 10/22/2016 10:26:00 12/01/2016 00:46:00 DIS Outpatient YUNIOR JOYNER MD [facility] DSME TYPE 1 DIABETES [id number] 10/22/2016 10:27:00 10/22/2016 23:59:59 CLS Outpatient YUNIOR JOYNER MD [facility] RAD THYROID ENLARGEMENT [id number] 10/01/2016 14:43:00 10/01/2016 23:59:59 CLS Outpatient DYLLAN MILLER [facility] RAD COUGH [id number] 06/18/2016 03:09:00 06/18/2016 04:55:00 DIS Outpatient YOUSIF BLANCO MD [facility] ER BS [id number] 05/14/2016 08:32:00 05/14/2016 23:59:59 CLS Outpatient YUNIOR JOYNER MD [facility] LAB HTN,HYPOTHYROID [id number] 04/05/2016 09:51:00 04/05/2016 23:59:59 CLS Outpatient DORIAN TORRES MD [facility] RAD MULTINODULAR GOITER [id number] 02/08/2016 11:48:00 02/08/2016 23:59:59 CLS Outpatient TITO ANJU Vikki ASTUDILLO [facility] RAD SCREENING [id number] 12/28/2015 08:00:00 12/28/2015 23:59:59 CLS Outpatient TOM MARQUES [facility] LAB CAD,HYPERLIPIDEMIA, CAROTID ARTERIAL DISEASE [id number] 11/15/2015 08:07:00 11/15/2015 23:59:59 CLS Outpatient TOM MARQUES [facility] CARD CAD,HTN,HLP,MALAISE [id number] 08/15/2015 11:00:00 08/15/2015 23:59:59 CLS Outpatient DORIAN TORERS MD [facility] RAD MULTINODULAR GOITER [id number] 05/30/2015 13:05:00 05/30/2015 14:29:00 DIS Outpatient YUNIOR JOYNER MD [facility] REHAB BACK PAIN [id number] 04/04/2015 07:59:00 04/04/2015 23:59:59 CLS Outpatient YECENIA MCKEON FACC, CHEN FACSophia CCDS [facility] LAB CAD,HLP [id number] 11/30/2014 10:53:00 11/30/2014 23:59:59 CLS Outpatient YUNIOR JOYNER MD [facility] RAD SCREENING [id number] 11/15/2014 11:32:00 11/15/2014 23:59:59 CLS Outpatient YUNIOR JOYNER MD [facility] RAD HAND PAIN,BACK PAIN, SCREENING [id number] 09/15/2014 08:41:00 09/15/2014 23:59:59 CLS Outpatient TOM MARQUES [facility] LAB CAD,HLP [id number] 06/21/2014 09:59:00 06/21/2014 23:59:59 CLS Outpatient DORIAN TORRES MD [facility] RAD MULTINODULAR GOITER [id number] 03/03/2014 09:07:00 03/03/2014 23:59:59 CLS Outpatient TOM MARQUES [facility] LAB HYPERLIPADEMIA [id number] 10/26/2013 14:53:00 10/26/2013 23:59:59 CLS Outpatient SIENA JOVEL MD [facility] RAD ROUTINE [id number] 10/15/2013 07:43:00 10/15/2013 23:59:59 CLS Outpatient YECENIA MCKEON FACVlad, CHEN GRAHAM CCDS [facility] CARD HTN,HLP,CAD [id number] 09/28/2013 08:48:00 09/28/2013 23:59:59 CLS Outpatient DORIAN TORRES MD [facility] RAD THYROID NODULE [id number] 09/02/2013 08:19:00 09/02/2013 23:59:59 CLS Outpatient SIENA JOVEL MD [facility] LAB UNSPECIFIED HYPERLIPIEDIMA,DIABETES MELLITUS [id number] 09/02/2013 08:12:00 09/02/2013 23:59:59 CLS Outpatient CHEN KEENE MD, FACC, FACP CCDS [facility] LAB RETINAL HEMORRHAGE,PATENT FORAMEN OVALE,PAROXYSMAL [id number] 01/13/2013 09:37:00 01/13/2013 23:59:59 CLS Outpatient DORIAN TORRES MD [facility] LAB FATIGUE,MONITORING GATE [id number] 01/08/2013 09:38:00 01/08/2013 23:59:59 CLS Outpatient CANDIE FRANCIS APRN [facility] RAD CALCIFIED RIGHT THYROID LOBE 5 MO RECHECK [id number] 11/06/2012 07:13:00 11/06/2012 23:59:59 CLS Outpatient YECENIA MCKEON FACVlad, CHEN GRAHAM CCDS [facility] RAD HX OF MOD CAD [id number] 10/22/2012 08:10:00 10/22/2012 23:59:59 CLS Outpatient TOM MARQUES [facility] LAB CAD,HYPERLIPIDEMIA,DM ,STATIN [place] [id number] 10/13/2012 13:20:00 10/13/2012 23:59:59 CLS Outpatient SIENA JOVEL MD [facility] RAD SIX MONTH FOLLOW-UP [id number] 08/21/2012 10:11:00 08/21/2012 23:59:59 CLS Outpatient DORIAN TORRES MD [facility] RAD MULTI-NODULAR GOITER [id number] 07/29/2012 10:50:00 07/29/2012 23:59:59 CLS Outpatient DORIAN TORRES MD [facility] RAD RT LOBE THYROID NODULE [id number] 03/03/2014 09:06:00 Document Registration [id number] 06/04/2012 23:40:00 Document Registration [id number] 04/24/2012 13:04:00 Document Registration [id number] 04/08/2012 09:46:00 Document Registration [id number] 03/26/2012 07:47:00 Document Registration [id number] 12/21/2011 10:26:00 Document Registration [id number] 09/24/2011 06:31:00 Document Registration [id number] 09/19/2011 07:23:00 Document Registration [id number] 04/30/2011 13:00:00 Document Registration [id number] 03/26/2011 09:06:00 Document Registration [id number] 02/28/2011 08:42:00 Document Registration [id number] 02/22/2011 13:30:00 Document Registration [id number] 01/01/2011 06:26:00 Document Registration [id number] 08/10/2010 07:35:00 Document Registration [id number] 03/01/2010 14:55:00 Document Registration [id number] 02/22/2010 08:13:00 Document Registration [id number] 08/11/2009 07:46:00 Document Registration [id number] 02/03/2009 07:38:00 Document Registration [id number] 01/13/2009 13:37:00 Document Registration [id number] 12/06/2008 11:16:00 Document Registration [id number] 11/30/2014 10:53:14 ACT Document Registration [id number] 03/24/2017 13:05:00 03/24/2017 17:28:00 DIS [facility] [id number] 03/25/2017 05:17:13 Document Registration [id number] 01/07/2017 03:05:11 01/07/2017 23:59:59 CLS Outpatient
== END 2017-10-06 10:51 | disposition home or self-care (01) ==
LOC: EDUNIT# 09:44 → ER 09:47
DX: S51.811A Laceration without foreign body of right forearm, initial encounter (principal); I25.10 Atherosclerotic heart disease of native coronary artery without angina pectoris; I10 Essential (primary) hypertension; F41.9 Anxiety disorder, unspecified; F32.9 Major depressive disorder, single episode, unspecified; R40.2142 Coma scale, eyes open, spontaneous, at arrival to emergency department; R40.2252 Coma scale, best verbal response, oriented, at arrival to emergency department; R40.2362 Coma scale, best motor response, obeys commands, at arrival to emergency department; D64.9 Anemia, unspecified; E11.9 Type 2 diabetes mellitus without complications; Z95.5 Presence of coronary angioplasty implant and graft; Z79.82 Long term (current) use of aspirin; Z82.49 Family history of ischemic heart disease and other diseases of the circulatory system; Z79.4 Long term (current) use of insulin; Z90.89 Acquired absence of other organs; W10.8XXA Fall (on) (from) other stairs and steps, initial encounter
CPT/HCPCS: 70450; 72125; 99282

== ENCOUNTER → 2018-10-28 | Outpatient (CLI) | payer MEDICARE ==
[~2018-10-28] VITALS: Ht 160 cm; Wt 59.4 kg
[~2018-10-28] MED LIST changes: +CATHETER FLUSH 10 ML SYR IV PRN; +CEPH-506 PO; +CEPH-507 PO; +REGADENOSON 0.4 MG/5 ML SYR (LEXISCAN) IV ONE
[2018-10-28 09:12] VITALS: BP 179/81
[2018-10-28 09:14] VITALS: BP 187/95
== END ==
LOC: CARD 06:49
PROVIDERS: ATTEND Internal Medicine Cardiovascular Disease
DX: I25.10 Atherosclerotic heart disease of native coronary artery without angina pectoris (principal)
CPT/HCPCS: 78452; 93017

== ENCOUNTER 2018-12-28 15:26 | Emergency (ER) | payer MEDICARE ==
[~2018-12-28] VITALS: Ht 160 cm; Wt 56.8 kg
[~2018-12-28 15:26] MED LIST changes: -CATHETER FLUSH 10 ML SYR IV PRN; -REGADENOSON 0.4 MG/5 ML SYR (LEXISCAN) IV ONE
--- NOTE | 2018-12-28 15:44 | ED General ---
General Chief Complaint: Glucose Problems Stated Complaint: LOW BLOOD SUGAR Source of Information: Patient, EMS Exam Limitations: No Limitations (ABRAM ARGUETA STUDENT) History of Present Illness Date Seen by Provider: Dec 28, 2018 Time Seen by Provider: 15:35 Initial Comments Patient presents to the ED today after feeling weak at the supermarket and finally had to sit down and was "out of it." The patient stated that her blood sugar had dropped too low; she has been a diabetic for 30 years and knew what had happened. She stated she just forgot to eat something when she should have and didn't have anything readily available when the symptoms came on. EMS gave her a half a bag of D10 IV and her sugars were running 330 when arriving at the ED. Patient feels normal as of now. Timing/Duration: 1-3 Hours Severity: Moderate Modifying Factors: improves with Eating, improves with Other (D10 IV) Associated Systoms: Malaise, Weakness (ABRAM ARGUETA STUDENT) Initial Comments Here with report of low blood sugar in the field. EMS noted low on their monitor on their evaluation and did give about a half a bag of D10. Blood sugar did come up and patient returned to normal mentation. She did eat a small breakfast after congregational this morning and she and her friends were at the [employer] shop when she started feeling low on her blood sugar. She states it happened fairly quickly and she was unable to get to food before she got too low. She has had this happen a couple times but not very often. Denies any recent illness. Denies concern for injury or other problems currently. Timing/Duration: 1/2 Hour Severity: Moderate Associated Systoms: Malaise, Weakness (JEFF KHANNA MD) Allergies and Home Medications Allergies Coded Allergies: NKANo Known Allergies (Verified Allergy, Unknown, 03/31/17) Home Medications Aspirin 81 Mg Tablet.dr, 81 MG PO HS, (Reported) Calcium Carbonate/Vitamin D3 1 Each Tablet, 1 TAB PO DAILY, (Reported) Cephalexin 500 Mg Capsule, 500 MG PO TID Prescribed by: YOUSIF BLANCO on 10/06/17 1045 Doxazosin Mesylate 1 Mg Tablet, 1 MG PO HS Prescribed by: YUNIOR RECINOS on 08/30/17 0953 Gabapentin 100 Mg Capsule, 100 MG PO TID, (Reported) Hydrochlorothiazide 12.5 Mg Capsule, 12.5 MG PO DAILY, (Reported) Insulin Aspart 100 Unit/1 Ml Susp, SQ AC, (Reported) Insulin Glargine,Hum.rec.anlog 100 Unit/1 Ml Vial, 17 UNITS SQ DAILY, (Reported) Metoprolol Tartrate 50 Mg Tablet, 50 MG PO BID, (Reported) Multivitamin 1 Each Tablet, 1 TAB PO DAILY, (Reported) Olmesartan Medoxomil 40 Mg Tablet, 40 MG PO DAILY, (Reported) RECEIVES FROM DEIRDRE Sertraline HCl 50 Mg Tablet, 50 MG PO HS, (Reported) Simvastatin 20 Mg Tablet, 20 MG PO HS, (Reported) LAST PICKED UP 07-07-17 #30 Patient Home Medication List Home Medication List Reviewed: Yes (JEFF KHANNA MD) Review of Systems Review of Systems Constitutional: malaise, weakness EENTM: no symptoms reported Respiratory: no symptoms reported Cardiovascular: no symptoms reported Gastrointestinal: no symptoms reported Genitourinary: no symptoms reported : No Musculoskeletal: no symptoms reported Skin: no symptoms reported Psychiatric/Neurological: No Symptoms Reported Hematologic/Lymphatic: No Symptoms Reported Immunological/Allergic: no symptoms reported (ABRAM ARGUETA) Constitutional: see HPI EENTM: no symptoms reported Respiratory: no symptoms reported Cardiovascular: no symptoms reported Gastrointestinal: no symptoms reported Genitourinary: no symptoms reported Skin: no symptoms reported (JEFF KHANNA MD) Past Gwaazfo-Ipbwjt-Cjphfd Hx Past Med/Social Hx: Reviewed Nursing Past Med/Soc Hx (JEFF KHANNA MD) Patient Social History 2nd Hand Smoke Exposure: No Recent Foreign Travel: No Contact w/Someone Who Travel: No Recent Hopitalizations: No (ABRAM ARGUETA) Immunizations Up To Date Tetanus Booster (TDap): Less than 5yrs PED Vaccines UTD: Yes Date of Pneumonia Vaccine: Dec 06, 2011 Date of Influenza Vaccine: Dec 02, 2016 (ABRAM ARGUETA) Seasonal Allergies Seasonal Allergies: No (ABRAM ARGUETA) Past Medical History Surgeries: Yes (APPY) Appendectomy Respiratory: No Cardiac: Yes (cardiac stent x1.) Coronary Artery Disease, Hypertension Neurological: No Reproductive Disorders: No COSTUMED CHARACTER History: Menopausal Sexually Transmitted Disease: No HIV/AIDS: No Genitourinary: Yes (STRESS INCONTINENCE) Gastrointestinal: No Musculoskeletal: Yes Chronic Back Pain Endocrine: Yes Diabetes, Insulin dep HEENT: Yes Loss of Vision: Denies Hearing Impairment: Bilateral Hearing Aide Cancer: No Psychosocial: Yes Anxiety, Depression Integumentary: Yes (SORES ON BACK OF NECK) Blood Disorders: Yes (ANEMIA) Adverse Reaction/Blood Tranf: No (ABRAM ARGUETA) Family Medical History Reviewed Nursing Family Hx (JEFF KHANNA MD) Heart Disease, Hypertension (ABRAM ARGUETA) Physical Exam Vital Signs Capillary Refill : (ABRAM ARGUETA) Height, Weight, BMI Height: 5'3.00" Weight: 131lbs. 0.0oz. [id number]; 23.2 BMI Method:Stated General Appearance: Other (Patient seems very fatigued) Eyes: Bilateral Eye Normal Inspection, Bilateral Eye PERRL, Bilateral Eye EOMI HEENT: PERRL/EOMI, Pharynx Normal Respiratory: Chest Non Tender, Lungs Clear, Normal Breath Sounds, No Accessory Muscle Use, No Respiratory Distress Cardiovascular: Regular Rate, Rhythm, No Edema, No Gallop, No JVD, No Murmur, Normal Peripheral Pulses Gastrointestinal: Normal Bowel Sounds, No Organomegaly, No Pulsatile Mass, Non Tender, Soft Extremity: Normal Inspection, Non Tender, No Calf Tenderness, No Pedal Edema Neurologic/Psychiatric: Alert, Oriented x3, Normal Mood/Affect Skin: Normal Color, Warm/Dry Lymphatic: No Adenopathy (ABRAM ARGUETA) General Appearance: No Apparent Distress, WD/WN HEENT: PERRL/EOMI, Pharynx Normal Respiratory: Lungs Clear, Normal Breath Sounds Cardiovascular: Regular Rate, Rhythm, No Murmur Neurologic/Psychiatric: Alert, Oriented x3 Skin: Normal Color, Warm/Dry (JEFF KHANNA MD) Progress/Results/Core Measures Suspected Sepsis SIRS Temperature: Pulse: Respiratory Rate: Blood Pressure / Mean: (ABRAM ARGUETA) Results/Orders Lab Results Laboratory Tests Test 12/28/18 15:34 12/28/18 16:21 Range/Units Glucometer 226 H 97 70-110 MG/DL (JEFF KHANAN MD) My Orders Orders - JEFF KHANNA MD General/Regular (12/28/18 Lunch) (JEFF KHANNA MD) Vital Signs/I&O Capillary Refill : (ABRAM ARGUETA STUDENT) Progress Note : Progress Note I had seen and evaluated the patient and agree with above except as indicated. Have directed the plan of care. Patient arrives via EMS after low blood sugar event. She was assisted to the floor and had no injuries. EMS did give D10 and resolved her sugar problems as well as mentation problems. Overall doing much better. Patient given [place] chips as well as drink. She tolerated at least half of that without difficulty. Blood sugar did decline to the 90s but she states she is feeling normal and is ready to go home. No nausea or vomiting. Discharged home with return precautions. Patient verbalize understanding instructions and agreement with plan. (JEFF KHANNA MD) Departure Impression Primary Impression: Hypoglycemia associated with diabetes Disposition: 01 HOME, SELF-CARE Condition: Improved Departure-Patient Inst. Decision time for Depature: 16:32 (JEFF KHANNA MD) Referrals: YUNIOR RECINOS MD (PCP/Family) Primary Care Physician Patient Instructions: HYPOGLYCEMIA Add. Discharge Instructions: All discharge instructions reviewed with patient and/or family. Voiced understanding. Continue your normal diet. Continue to monitor your blood sugars. Follow-up with Dr. Recinos or her office this week for recheck and further evaluation as needed. Replace fluids. Return for worse pain, fever, vomiting, weakness, breathing problems or other concerns as needed. ABRAM ARGUETA STUDENT Dec 28, 2018 15:44 EJFF KHANNA MD Dec 28, 2018 16:33
--- NOTE | 2018-12-28 16:07 | NUR ---
pt eating food tray at this time, family present at bedside, pt shows no s/s of distress, pt denies any needs or c/o at this time, vs assessed and stable, will continue to monitor
--- NOTE | 2018-12-28 16:25 | NUR ---
Blood sugar check at this time, blood sugar is 97, pt sitting in bed visiting with family and friends, pt shows no s/s of distress, pt denies any needs or c/o at this time, vs assessed and stable, will continue to monitor
--- NOTE | 2018-12-28 16:50 | NUR ---
BLOOD SUGAR RECHECK AND READING OF 119 OBTAINED, PT ALERT AND ORIENTED, PT ATE MEAL THAT WAS PROVIDED
[2018-12-30 16:52] VITALS: BP 122/60
== END 2018-12-28 16:55 | disposition home or self-care (01) ==
LOC: EDUNIT# 15:26 → ER 15:27
DX: E11.649 Type 2 diabetes mellitus with hypoglycemia without coma (principal); I10 Essential (primary) hypertension; I25.10 Atherosclerotic heart disease of native coronary artery without angina pectoris; F41.9 Anxiety disorder, unspecified; F32.9 Major depressive disorder, single episode, unspecified; D64.9 Anemia, unspecified; Z82.49 Family history of ischemic heart disease and other diseases of the circulatory system; Z95.5 Presence of coronary angioplasty implant and graft; Z90.49 Acquired absence of other specified parts of digestive tract; Z79.82 Long term (current) use of aspirin; Z79.4 Long term (current) use of insulin
CPT/HCPCS: 82962; 99283

== ENCOUNTER 2019-04-15 14:45 | Outpatient (RCR) | payer MEDICARE ==
[~2019-04-15 14:45] MED LIST changes: +SIMV20TA26 PO; -SIMV20TA3 PO; -TRAM50TA2 PO; +TRM50T PO
== END 2019-04-15 15:30 | disposition home or self-care (01) ==
PROVIDERS: ATTEND Nurse Practitioner Family
DX: M19.041 Primary osteoarthritis, right hand (principal)

== ENCOUNTER 2019-06-14 16:30 | Emergency (ER) | payer MEDICARE ==
[~2019-06-14] VITALS: Ht 157.5 cm; Wt 54.4 kg
[2019-06-14] MEDS ORDERED: KETOROLAC 60 MG/2 ML VIAL IM ONE (16:45)
--- NOTE | 2019-06-14 16:47 | ED Back Pain ---
General Stated Complaint: FALL/BACK PAIN Source of Information: Patient Exam Limitations: No Limitations History of Present Illness Date Seen by Provider: Jun 14, 2019 Time Seen by Provider: 16:45 Initial Comments To ER with low back pain after a fall on 06/11/19. She landed directly on her buttocks and has dealt with the pain up to this point using Tylenol. Today the pain was too intense, her son insisted she be brought to the emergency room. She states the pain does not radiate down either of her legs and she's had no trouble with bowel or bladder incontinence. No abdominal pain no nausea. Did not hit her head or injure herself anywhere else when she fell. She is alert and oriented. Location: Lumbar Spine Timing/Duration: 1-2 Days Severity: Moderate Pain/Injury Location: Back Associated Symptoms: lower back pain Allergies and Home Medications Allergies Coded Allergies: NKANo Known Allergies (Verified Allergy, Unknown, 03/31/17) Home Medications Aspirin 81 Mg Tablet.dr, 81 MG PO HS, (Reported) Calcium Carbonate/Vitamin D3 1 Each Tablet, 1 TAB PO DAILY, (Reported) Cephalexin 500 Mg Capsule, 500 MG PO TID Prescribed by: YOUSIF BLANCO on 10/06/17 1045 Doxazosin Mesylate 1 Mg Tablet, 1 MG PO HS Prescribed by: YUNIOR RECINOS on 08/30/17 0953 Gabapentin 100 Mg Capsule, 100 MG PO TID, (Reported) Hydrochlorothiazide 12.5 Mg Capsule, 12.5 MG PO DAILY, (Reported) Insulin Aspart 100 Unit/1 Ml Susp, SQ AC, (Reported) Insulin Glargine,Hum.rec.anlog 100 Unit/1 Ml Vial, 17 UNITS SQ DAILY, (Reported) Metoprolol Tartrate 50 Mg Tablet, 50 MG PO BID, (Reported) Multivitamin 1 Each Tablet, 1 TAB PO DAILY, (Reported) Olmesartan Medoxomil 40 Mg Tablet, 40 MG PO DAILY, (Reported) RECEIVES FROM DEIRDRE Sertraline HCl 50 Mg Tablet, 50 MG PO HS, (Reported) Simvastatin 20 Mg Tablet, 20 MG PO HS, (Reported) LAST PICKED UP 07-07-17 #30 Patient Home Medication List Home Medication List Reviewed: Yes Review of Systems Constitutional: see HPI EENTM: see HPI Respiratory: no symptoms reported Cardiovascular: no symptoms reported Genitourinary: no symptoms reported Skin: no symptoms reported Psychiatric/Neurological: No Symptoms Reported Past Jkthfjd-Ahzdwg-Esesnl Hx Patient Social History 2nd Hand Smoke Exposure: No Recent Foreign Travel: No Contact w/Someone Who Travel: No Recent Hopitalizations: No Immunizations Up To Date Tetanus Booster (TDap): Less than 5yrs PED Vaccines UTD: Yes Date of Pneumonia Vaccine: Dec 28, 2018 Date of Influenza Vaccine: Dec 02, 2016 Seasonal Allergies Seasonal Allergies: No Past Medical History Surgeries: Yes (APPY) Appendectomy Respiratory: No Cardiac: Yes (cardiac stent x1.) Coronary Artery Disease, Hypertension Neurological: No Reproductive Disorders: No [employer] History: Menopausal Sexually Transmitted Disease: No HIV/AIDS: No Genitourinary: Yes (STRESS INCONTINENCE) Gastrointestinal: No Musculoskeletal: Yes Chronic Back Pain Endocrine: Yes Diabetes, Insulin dep HEENT: Yes Loss of Vision: Denies Hearing Impairment: Bilateral Hearing Aide Cancer: No Psychosocial: Yes Anxiety, Depression Integumentary: Yes (SORES ON BACK OF NECK) Blood Disorders: Yes (ANEMIA) Adverse Reaction/Blood Tranf: No Family Medical History Heart Disease, Hypertension Physical Exam Vital Signs Vital Signs - First Documented 06/14/19 16:45 Temp 36.6 Pulse 63 Resp 20 B/P (MAP) 142/68 (92) Pulse Ox 98 O2 Delivery Room Air Capillary Refill : Height, Weight, BMI Height: 5'3.00" Weight: 131lbs. 0.0oz. 59.684889jn; 22.00 BMI Method:Stated General Appearance: No Apparent Distress, WD/WN Respiratory: No Accessory Muscle Use, No Respiratory Distress Gastrointestinal: Non Tender, Soft Back: Other (old scar from low back surgery, she states she's had 2 back surgeries. No ecchymosis no erythema no abrasions. Low midline back pain over the lower lumbar spine and the right sacroiliac joint.) Neurologic/Psychiatric: Alert, Oriented x3 Skin: Normal Color, Warm/Dry Progress/Results/Core Measures Results/Orders My Orders Orders - ROBERT FAY APRN Tramadol Tablet (Ultram Tablet) (06/14/19 16:45) Ketorolac Injection (Toradol Injection) (06/14/19 16:45) Ct Lumbar Spine Wo (06/14/19 16:43) Ct Pelvis Wo (06/14/19 16:43) Medications Given in ED Current Medications Medications Dose Ordered Sig/Alfredo Route Start Time Stop Time Status Last Admin Dose Admin Ketorolac Tromethamine 30 mg ONCE ONCE IM 06/14/19 16:45 06/14/19 16:46 DC 06/14/19 17:00 30 MG Tramadol HCl 50 mg ONCE ONCE PO 06/14/19 16:45 06/14/19 16:46 DC 06/14/19 17:01 50 MG Vital Signs/I&O 06/14/19 16:45 Temp 36.6 Pulse 63 Resp 20 B/P (MAP) 142/68 (92) Pulse Ox 98 O2 Delivery Room Air Departure Communication (Admissions) She is without neurologic symptoms and there is minimal retropulsion, she will be appropriate for nonsurgical treatment with clamshell brace, I'll give a prescription for this as well as Ultram for pain control. Her pain is well- controlled at this time. Impression Primary Impression: T12 burst fracture Disposition: HOME, SELF-CARE Condition: Stable Departure-Patient Inst. Decision time for Depature: 18:01 Referrals: YUNIOR RECINOS MD (PCP/Family) Primary Care Physician Patient Instructions: Vertebral Compression Fracture (DC) Add. Discharge Instructions: 1. Call Dr. Recinos tomorrow to make an appointment to be seen this week. Return to ER for any numbness or tingling into her legs, loss of control of your bowel or bladder such as incontinence, or any worsening intolerable pain. Take pain medication as directed. Go to the durable medical equipment store tomorrow to get the clamshell brace, call them first to make sure they have these in Stock. Scripts Tramadol HCl (Ultram) 50 Mg Tablet 50 MG PO Q6H PRN for PAIN-MODERATE (5-7), #10 TAB Prov: ROBERT FAY APRN 06/14/19 Copy Copies To 1: YUNIOR RECINOS MD, PETER J APRN Jun 14, 2019 16:47
--- OUTSIDE RECORDS SUMMARY | 2019-06-14 16:49 | XMS REPORT | CCD ---
Author Author Nathalia Recinos Organization [facility] Address [address] [place] [address] Phone Care Team Providers Care Manager Operations Name Role Phone PP Unavailable CCM Unavailable Summary Purpose Interface Exchange Insurance Providers Payer name Policy type / Coverage type Covered green party ID Effective Begin Date Effective End Date WPS Medicare Part B Medicare Part B [id number] Unknown [facility] ica Part B [id number] Un known Family history Mother Diagnosis Age At Onset No Family Disease Entered N/A Father Diagnosis Age At Onset Heart Attack Unknown Diabetes Unknown Social History Social History Element Codes Description Effective Dates Number of children Unknown 2 Sons, 5 grandchildren, 11 great grandchildren 01/08/2017 Marital status Unknown W crystal [place] in [address]606/06/[address]: 508127546 Never smoker 08/13/[address]: 557826419 Never drinks alcohol 08/13/2014 Allergies, Adverse Reactions, Alerts Substance Reaction Codes Entered Date Inactivated Date Status * NO KNOWN DRUG ABE RGIES Unknown 11/15/2014 No Inactive Date Active Past Medical History Illness Codes Condition Status Onset Date Resolved Date Essential (primary) hypertension ICD-9: 401.9 ICD-10: I10 Active 08/12/2014 Unknown Type 2 diabetes kristy itus with hyperglycemia ICD-9: 250.02 ICD-10: E11.65 Active 09/16/2017 Unknown Essential (primary) hypertension ICD-9: 401.1 ICD-10: I10 Active 05/13/2017 Unknown Other skin changes ICD- 9: 782.9 ICD-10: R23.8 Active 08/28/2018 Unknown Trigger finger, righ t middle finger ICD-9: 727.03 ICD-10: M65.331 Active 04/28/2018 Unknown Localized edema ICD-9: 782.3 ICD-10: R60.0 Active 12/25/2017 Unknown Diverticulitis of la rge intestine without perforation or abscess without bleeding ICD-9: 562.11 ICD-10: K57.32 Active 11/22/2017 Unknown Nausea ICD-9: 787.02 ICD-10: R11.0 Active 11/22/2017 Unknown Laceration without f oreign body of right forearm, subsequent encounter ICD-9: V58.89 ICD-10: S51.811D Active 10/09/2017 Unknown Type 1 diabetes kristy itus without complications ICD-9: 250.00 ICD-10: E10.9 Active 08/12/2014 Unknown Mixed hyperlipidemia ICD-9: 272.4 ICD-10: E78.2 Active 08/12/2014 Unknown Acute recurrent maxi llary sinusitis ICD-9: 461.0 ICD-10: J01.01 Active 06/14/2017 Unknown Cough ICD-9: 786.2 ICD-10: R05 Active 09/27/2016 Unknown Sciatica Unknown Active 03/26/2017 Unknow n Low back pain ICD-9: 724.2 ICD-10: M54.5 Active 03/26/2017 Unknown Sciatica, right side ICD-9: 724.3 ICD-10: M54.31 Active 03/26/2017 Unknown Fever, unspecified ICD- 9: 780.60 ICD-10: R50.9 Active 04/03/2016 Unknown Frequency of micturi tion ICD-9: 788.41 ICD-10: R35.0 Active 01/16/2017 Unknown Weakness ICD-9: 780.79 ICD-10: R53.1 Active 01/16/2017 Unknown Actinic keratosis ICD-9: 702.0 ICD-10: L57.0 Active 10/16/2016 Unknown 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 Active 10/16/2016 Unknown Hypothryroidism Unknown Active 10/09/2016 Unknow n Hypothyroidism, unsp ecified ICD-9: 244.9 ICD-10: E03.9 Active 10/09/2016 Unknown Chronic obstructive pulmonary disease with (acute) exacerbation ICD-9: 491.21 ICD-10: J44.1 Active 10/01/2016 Unknown Acute bronchitis, un specified ICD-9: 466.0 ICD-10: J20.9 Active 09/27/2016 Unknown Encounter for genera l adult medical examination with abnormal findings ICD-9: V70.0 ICD-10: Z00.01 Active 07/10/2016 Unknown Acute laryngopharyng itis ICD-9: 465.0 ICD-10: J06.0 Active 04/03/2016 Unknown Other allergic rhinitis ICD-9: 477.8 ICD-10: J30.89 Active 04/03/2016 Unknown Encounter for screen ing mammogram for malignant neoplasm of breast ICD-9: V76.12 ICD-10: Z12.31 Active 01/31/2016 Unknown Pain in right hand ICD- 9: 729.5 ICD-10: M79.641 Active 11/14/2014 Unknown Other specified dors opathies, lumbar region ICD-9: 724.6 ICD-10: M53.86 Active 11/14/2014 Unknown Urge incontinence ICD-9: 788.31 ICD-10: N39.41 Active 03/21/2015 Unknown Encounter for immuni zation ICD-9: V03.82 ICD-10: Z23 Active 02/14/2015 Unknown Other chronic pain ICD- 9: 729.5 ICD-10: G89.29 Active 11/14/2014 Unknown Encounter for immuni zation ICD-9: V04.81 ICD-10: Z23 Active 12/09/2014 Unknown FALL FROM LADDER ICD-9: E881.0 Active 11/14/2014 Unknown Left hand pain ICD-9: 729.5 Active 11/14/2014 Unknown Right hip pain ICD-9: 719.45 Active 11/14/2014 Unknown Sacroiliac joint pain ICD-9: 724.6 Active 11/14/2014 Unknown Diabetes Unknown Active 08/13/2014 Unknow n Hyperlipidemia Unknown Active 08/13/2014 Unknow n Hypertension Unknown Active 08/13/2014 Unknow n DIABETES TYPE II ICD-9: 250.00 Active 08/12/2014 Unknown ESSENTIAL HYPERTENSION ICD-9: 401.9 Active 08/12/2014 Unknown HYPERLIPIDEMIA ICD-9: 272.4 Active 08/12/2014 Unknown Problems Condition Codes Effectiv e Dates Condition Status Essential (primary) hypertension ICD-9: 401.9 ICD-10: I10 08/12/2014 Active Type 2 diabetes kristy itus with hyperglycemia ICD-9: 250.02 ICD-10: E11.65 09/16/2017 Active Essential (primary) hypertension ICD-9: 401.1 ICD-10: I10 05/13/2017 Active Other skin changes ICD- 9: 782.9 ICD-10: R23.8 08/28/2018 Active Trigger finger, righ t middle finger ICD-9: 727.03 ICD-10: M65.331 04/28/2018 Active Localized edema ICD-9: 782.3 ICD-10: R60.0 12/25/2017 Active Diverticulitis of la rge intestine without perforation or abscess without bleeding ICD-9: 562.11 ICD-10: K57.32 11/22/2017 Active Nausea ICD-9: 787.02 ICD-10: R11.0 11/22/2017 Active Laceration without f oreign body of right forearm, subsequent encounter ICD-9: V58.89 ICD-10: S51.811D 10/09/2017 Active Type 1 diabetes kristy itus without complications ICD-9: 250.00 ICD-10: E10.9 08/12/2014 Active Mixed hyperlipidemia ICD-9: 272.4 ICD-10: E78.2 08/12/2014 Active Acute recurrent maxi llary sinusitis ICD-9: 461.0 ICD-10: J01.01 06/14/2017 Active Cough ICD-9: 786.2 ICD-10: R05 09/27/2016 Active Sciatica Unknown 03/26/2017 Active Low back pain ICD-9: 724.2 ICD-10: M54.5 03/26/2017 Active Sciatica, right side ICD-9: 724.3 ICD-10: M54.31 03/26/2017 Active Fever, unspecified ICD- 9: 780.60 ICD-10: R50.9 04/03/2016 Active Frequency of micturi tion ICD-9: 788.41 ICD-10: R35.0 01/16/2017 Active Weakness ICD-9: 780.79 ICD-10: R53.1 01/16/2017 Active Actinic keratosis ICD-9: 702.0 ICD-10: L57.0 10/16/2016 Active 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 10/16/2016 Active Hypothryroidism Unknown 10/09/2016 Active Hypothyroidism, unsp ecified ICD-9: 244.9 ICD-10: E03.9 10/09/2016 Active Chronic obstructive pulmonary disease with (acute) exacerbation ICD-9: 491.21 ICD-10: J44.1 10/01/2016 Active Acute bronchitis, un specified ICD-9: 466.0 ICD-10: J20.9 09/27/2016 Active Encounter for genera l adult medical examination with abnormal findings ICD-9: V70.0 ICD-10: Z00.01 07/10/2016 Active Acute laryngopharyng itis ICD-9: 465.0 ICD-10: J06.0 04/03/2016 Active Other allergic rhinitis ICD-9: 477.8 ICD-10: J30.89 04/03/2016 Active Encounter for screen ing mammogram for malignant neoplasm of breast ICD-9: V76.12 ICD-10: Z12.31 01/31/2016 Active Pain in right hand ICD- 9: 729.5 ICD-10: M79.641 11/14/2014 Active Other specified dors opathies, lumbar region ICD-9: 724.6 ICD-10: M53.86 11/14/2014 Active Urge incontinence ICD-9: 788.31 ICD-10: N39.41 03/21/2015 Active Encounter for immuni zation ICD-9: V03.82 ICD-10: Z23 02/14/2015 Active Other chronic pain ICD- 9: 729.5 ICD-10: G89.29 11/14/2014 Active Encounter for immuni zation ICD-9: V04.81 ICD-10: Z23 12/09/2014 Active FALL FROM LADDER ICD-9: E881.0 11/14/2014 Active Left hand pain ICD-9: 729.5 11/14/2014 Active Right hip pain ICD-9: 719.45 11/14/2014 Active Sacroiliac joint pain ICD-9: 724.6 11/14/2014 Active Diabetes Unknown 08/13/2014 Active Hyperlipidemia Unknown 08/13/2014 Active Hypertension Unknown 08/13/2014 Active DIABETES TYPE II ICD-9: 250.00 08/12/2014 Active ESSENTIAL HYPERTENSION ICD-9: 401.9 08/12/2014 Active HYPERLIPIDEMIA ICD-9: 272.4 08/12/2014 Active Medications Medication Codes Instruc tions Start Date Stop Date Sta tus Fill Instructions gabapentin 100 mg ca psule RxNorm: 361097 TAKE ONE CAPSULE BY M OUTH THREE TIMES A DAY 08/29/2018 11/02/2018 Ac tive Lantus U-100 Insulin 100 unit/mL subcutaneous solution RxNorm: 933200 20 Unit(s) SQ QAM 08/28/2018 04/24/2019 Active this is an update to her RX Benicar 40 mg tablet RxNorm: 525823 Tablet(s) TAKE ONE TABLET BY MOUTH DAILY 08/06/2018 07/31/2019 Ac tive FreeStyle Lite Strips RxNorm: USE STRIP TO TEST SEVEN TIMES A DAY 07/10/2018 08/11/2018 In active Zocor 20 mg tablet RxNorm: 240233 1 Tablet(s) PO daily 06/10/2018 06/04/2019 Active Benicar 40 mg tablet RxNorm: 462372 Tablet(s) TAKE ONE TABLET BY MOUTH DAILY 06/06/2018 06/25/2018 In active metoprolol tartrate 50 mg tablet RxNorm: 171348 TAKE ONE TABLET BY MO UTH TWICE A DAY 05/19/2018 05/13/2019 Ac tive hydrochlorothiazide 12.5 mg capsule RxNorm: 910021 TAKE ONE CAPSULE BY M OUTH DAILY 05/19/2018 05/13/2019 Ac tive Atacand 32 mg tablet RxNorm: 874003 1 Tablet(s) PO daily 05/12/2018 05/11/2018 Inactive This is to replace benicar Atacand 32 mg tablet RxNorm: 814026 1 Tablet(s) PO daily 05/12/2018 06/05/2018 Inactive This is to replace benicar Benicar 40 mg tablet RxNorm: 472377 TAKE ONE TABLET BY MOUTH DAILY 05/07/2018 05/06/2018 In active Benicar 40 mg tablet RxNorm: 976521 Tablet(s) TAKE ONE TABLET BY MOUTH DAILY 05/07/2018 05/11/2018 In active Zoloft 50 mg tablet RxNorm: 255850 TAKE ONE TABLET BY MOUTH DAILY 04/28/2018 04/22/2019 Ac tive gabapentin 100 mg ca psule RxNorm: 247995 TAKE ONE CAPSULE BY M OUTH THREE TIMES A DAY 04/09/2018 07/16/2018 Inactive Novolog U-100 Insuli n aspart 100 unit/mL subcutaneous solution RxNorm: 028912 SSI 5 units over 150 and for every additional 50 add 2 units Unit(s) SQ TID adjust as needed for glucose control 12/25/2017 07/22/2018 Inactive Cipro 500 mg tablet RxNorm: 298284 1 Tablet(s) PO BID 11/22/2017 12/01/2017 Inactive clotrimazole 1 % top ical cream RxNorm: 189435 1 Application TOP BID 11/22/2017 12/05/2017 Inactive Flagyl 500 mg tablet RxNorm: 244951 1 Tablet(s) PO TID 11/22/2017 12/01/2017 Inactive Lantus U-100 Insulin 100 unit/mL subcutaneous solution RxNorm: 293301 17 Unit(s) SQ QAM 11/11/2017 07/08/2018 Inactive Novolog U-100 Insuli n aspart 100 unit/mL subcutaneous solution RxNorm: 765082 SSI 5 units over 150 and for every additional 50 add 2 units Unit(s) SQ TID adjust as needed for glucose control 11/11/2017 12/24/2017 Inactive gabapentin 100 mg ca psule RxNorm: 510814 TAKE ONE CAPSULE BY M OUTH THREE TIMES A DAY 11/05/2017 02/11/2018 Inactive Kenalog 40 mg/mL fanny pension for injection RxNorm: 0215376 1 Milliliter(s) Inj 06/14/2017 06/14/2017 In active Flonase Allergy Reli ef 50 mcg/actuation nasal spray,suspension RxNorm: 0291972 2 Ironside NASAL daily 06/14/2017 06/20/2017 Inactive doxycycline hyclate 100 mg tablet RxNorm: 967447 1 Tablet(s) PO BID 06/14/2017 06/20/2017 Inactive Lantus U-100 Insulin 100 unit/mL subcutaneous solution RxNorm: 108734 17 Unit(s) SQ QAM 06/10/2017 07/09/2017 Inactive gabapentin 100 mg ca psule RxNorm: 960576 TAKE ONE CAPSULE BY M OUTH THREE TIMES A DAY 05/23/2017 08/29/2017 Inactive Lantus U-100 Insulin 100 unit/mL subcutaneous solution RxNorm: 728963 15 Unit(s) SQ QAM 05/14/2017 06/09/2017 Inactive Novolog U-100 Insuli n aspart 100 unit/mL subcutaneous solution RxNorm: 287877 SSI 5 units over 150 and for every additional 50 add 2 units Unit(s) SQ TID adjust as needed for glucose control 04/24/2017 11/10/2017 Inactive Zocor 20 mg tablet RxNorm: 170937 1 Tablet(s) PO daily 04/05/2017 03/30/2018 Inactive Kenalog 40 mg/mL fanny pension for injection RxNorm: 0871960 1 Milliliter(s) Inj 03/26/2017 03/26/2017 In active Novolog 100 unit/mL subcutaneous solution RxNorm: 453048 SSI 5 units over 150 and for every additional 50 add 2 units Unit(s) SQ TID adjust as needed for glucose control 02/19/2017 04/23/2017 Inactive Lantus 100 unit/mL s ubcutaneous solution RxNorm: 171398 10 Unit(s) SQ QAM 02/19/2017 05/13/2017 In active ceftriaxone 500 mg s olution for injection RxNorm: 4612342 Inj 01/16/2017 01/16/2017 Inactive Lantus 100 unit/mL s ubcutaneous solution RxNorm: 044716 7 Unit(s) SQ QAM 01/16/2017 02/18/2017 In active Lantus 100 unit/mL s ubcutaneous solution RxNorm: 621565 10 Unit(s) SQ daily 01/08/2017 05/12/2017 In active gabapentin 100 mg ca psule RxNorm: 532816 TAKE ONE CAPSULE BY M OUTH THREE TIMES A DAY 11/30/2016 02/03/2017 Inactive Zoloft 50 mg tablet RxNorm: 762635 TAKE ONE TABLET BY MOUTH DAILY 10/30/2016 04/27/2017 In active Zocor 20 mg tablet RxNorm: 014117 1 Tablet(s) PO daily 10/16/2016 04/04/2017 Inactive stop the 40mg dose of zocor, start on 20 mg Lantus 100 unit/mL s ubcutaneous solution RxNorm: 336801 15 Unit(s) SQ daily 10/16/2016 01/07/2017 In active Novolog 100 unit/mL subcutaneous solution RxNorm: 390143 SSI 5 units over 150 and for every additional 50 add 2 units Unit(s) SQ TID adjust as needed for glucose control 10/16/2016 02/18/2017 Inactive prednisone 20 mg tablet RxNorm: 547798 1 Tablet(s) PO BID 10/01/2016 10/05/2016 Inactive Kenalog 40 mg/mL fanny pension for injection RxNorm: 3273697 1 Milliliter(s) Inj 09/27/2016 09/27/2016 In active Zithromax Z-Kishor 250 mg tablet RxNorm: 233640 1 Tablet(s) PO UD 09/27/2016 10/01/2016 Inactive ceftriaxone 500 mg s olution for injection RxNorm: 5312627 1 Milliliter(s) Inj 09/27/2016 09/27/2016 In active Augmentin 500 mg-125 mg tablet RxNorm: 361973 1 Tablet(s) PO BID 09/22/2016 09/26/2016 Inactive Tessalon Perles 100 mg capsule RxNorm: 412086 1 Capsule(s) PO Q8 MN N as needed 09/22/2016 04/27/2018 In active metoprolol tartrate 50 mg tablet RxNorm: 505050 TAKE ONE TABLET BY [facility] TWICE A DAY 08/02/2016 07/27/2017 Inactive Novolog 100 unit/mL subcutaneous solution RxNorm: 636195 10 Unit(s) SQ TID adj ust as needed for glucose control 07/19/2016 10/15/2016 Inactive Humalog 100 unit/mL subcutaneous solution RxNorm: 717786 INJECT 10 UNITS UNDER THE SKIN BEFORE EACH MEAL 07/16/2016 07/16/2016 Inactive Kenalog 40 mg/mL fanny pension for injection RxNorm: 5464781 1 Milliliter(s) Inj 07/09/2016 07/09/2016 In active ceftriaxone 500 mg s olution for injection RxNorm: 3715225 Inj 07/09/2016 07/09/2016 Inactive Lantus 100 unit/mL s ubcutaneous solution RxNorm: 043527 Unit(s) INJECT 13 UNI TS UNDER THE SKIN IN THE MORNING 06/06/2016 10/15/2016 Inactive Zoloft 50 mg tablet RxNorm: 470887 TAKE ONE TABLET BY MOUTH DAILY 04/27/2016 07/25/2016 In active Lantus 100 unit/mL s ubcutaneous solution RxNorm: 893334 INJECT 20 UNITS UNDER THE SKIN AT BEDTIME 04/27/2016 06/05/2016 Inactive amoxicillin 500 mg c apsule RxNorm: 786987 1 Capsule(s) PO TID 04/03/2016 04/12/2016 Inactive Zyrtec 10 mg tablet RxNorm: 0157165 1 Tablet(s) PO daily 04/03/2016 05/02/2016 Inactive hydrochlorothiazide 12.5 mg capsule RxNorm: 726125 TAKE ONE CAPSULE BY M OUTH DAILY 03/12/2016 12/06/2016 In active Benicar 40 mg tablet RxNorm: 886302 1 Tablet(s) PO daily 02/28/2016 04/27/2016 Inactive Benicar 40 mg tablet RxNorm: 086099 1 Tablet(s) PO daily 02/20/2016 02/27/2016 Inactive gabapentin 100 mg ca psule RxNorm: 583070 TAKE ONE CAPSULE BY M OUTH THREE TIMES A DAY 01/09/2016 04/16/2016 Inactive metoprolol tartrate 50 mg tablet RxNorm: 206305 TAKE ONE TABLET BY MO UTH TWICE A DAY 01/09/2016 04/07/2016 Inactive Humalog 100 unit/mL subcutaneous solution RxNorm: 754398 5-10 Unit(s) SQ AC 07/19/2015 07/18/2016 In active Lantus 100 unit/mL s ubcutaneous solution RxNorm: 316707 13 Unit(s) SQ QAM 07/19/2015 01/15/2017 In active Lantus 100 unit/mL s ubcutaneous solution RxNorm: 781930 20 Unit(s) SQ QHS 07/14/2015 07/18/2015 In active Zoloft 50 mg tablet RxNorm: 026516 1 Tablet(s) PO daily 05/19/2015 09/15/2015 Inactive Humalog 100 unit/mL subcutaneous solution RxNorm: 522789 10 Unit(s) SQ AC 05/11/2015 07/18/2015 In active metoprolol tartrate 50 mg tablet RxNorm: 571268 1 Tablet(s) PO BID 04/28/2015 08/25/2015 Inactive Lantus 100 unit/mL s ubcutaneous solution RxNorm: 897130 20 Unit(s) SQ QHS 04/28/2015 07/13/2015 In active Vesicare 10 mg tablet RxNorm: 916238 1 Tablet(s) PO QPM 03/22/2015 09/18/2015 Inactive hydrochlorothiazide 12.5 mg capsule RxNorm: 597453 1 Tablet(s) PO daily 01/04/2015 12/29/2015 In active gabapentin 100 mg ca psule RxNorm: 324758 1 Capsule(s) PO TID 11/29/2014 03/28/2015 Inactive FreeStyle Lite Strips RxNorm: Miscellaneous 10/19/2014 10/18/2014 Inactive chec k blood sugar three times a day FreeStyle Lite Strips RxNorm: Miscellaneous 10/19/2014 10/18/2014 Inactive chec k blood sugar three times a day FreeStyle Lite Strips RxNorm: Miscellaneous Test blood sugar three ivanna es daily 10/19/2014 11/18/2015 In active 250.0 Calcium RxNorm: 1 PO daily No Start Date Active aspirin 81 mg tablet RxNorm: 160152 1 Tablet(s) PO daily No Start Date Active doxazosin 2 mg tablet RxNorm: 693460 1 Tablet(s) PO QHS No Start Date Active Fish Oil oral RxNorm: 6655842 oral No Start Date Active multivitamin capsule RxNorm: 1 Capsule(s) PO daily No Start Date Active Humalog 100 unit/mL subcutaneous solution RxNorm: 121183 Unit(s) SQ No Start Date 05/10/2015 Inactive Zoloft 50 mg tablet RxNorm: 059006 1 Tablet(s) PO daily No Start Date 05/18/2015 Inactive gabapentin 100 mg ca psule RxNorm: 025266 1 Capsule(s) PO daily No Start Date 11/28/2014 Inactive metoprolol tartrate 50 mg tablet RxNorm: 757060 1 Tablet(s) PO TID No Start Date 04/27/2015 Inactive Benicar 40 mg tablet RxNorm: 317189 1 Tablet(s) PO daily No Start Date 02/19/2016 Inactive hydrochlorothiazide 25 mg tablet RxNorm: 376605 1 Tablet(s) PO daily No Start Date 01/03/2015 Inactive Lantus 100 unit/mL s ubcutaneous solution RxNorm: 768675 13 Unit(s) SQ No Start Date 04/27/2015 Inactive Zocor 40 mg tablet RxNorm: 614638 1 Tablet(s) PO daily No Start Date 10/15/2016 Inactive Medication Administered Medication Codes Instruc tions Start Date Status Kenalog 40 mg/mL suspension for injection RxNorm: 5111744 1Milliliter 06/14/2017 N o longer Active Kenalog 40 mg/mL suspension for injection RxNorm: 4253339 1Milliliter 03/26/2017 N o longer Active ceftriaxone 500 mg solution for injection RxNorm: 3156620 01/16/2017 No longer A ctive Kenalog 40 mg/mL suspension for injection RxNorm: 3772195 1Milliliter 09/27/2016 N o longer Active ceftriaxone 500 mg solution for injection RxNorm: 4507804 1Milliliter 09/27/2016 N o longer Active Kenalog 40 mg/mL suspension for injection RxNorm: 5157398 1Milliliter 07/09/2016 N o longer Active ceftriaxone 500 mg solution for injection RxNorm: 3758859 07/09/2016 No longer A ctive Immunizations Vaccine Codes Date Status SHINGARIX CVX: 121 09/08 completed Influenza CVX: 141 12/28 completed Pneumococcal CVX: 133 completed Influenza CVX: 141 11/12 completed Pneumococcal (Adult) CVX: 133 02/15/2015 completed Influenza CVX: 141 12/10 completed Influenza CVX: 141 12/02 completed Pneumococcal CVX: 33 03/2013 completed Tetanus, Diptheria, Pertussis CVX: 12/02/2013 completed Tetanus/Diptheria CVX: 12/02/2013 completed Assessments Condition Codes Effectiv e Dates Essential (primary) hypertension ICD -10: I10 ICD-9: 401.9 10/23/2018 Type 2 diabetes mellitus with hyperglycemia ICD-10: E11.65 ICD-9: 250.02 10/23/2018 Essential (primary) hypertension ICD -10: I10 ICD-9: 401.1 08/28/2018 Other skin changes ICD-10: R23.8 ICD-9: 782.9 08/28/2018 Trigger finger, right middle finger ICD-10: M65.331 ICD-9: 727.03 04/28/2018 Localized edema ICD-10: R60.0 ICD-9: 782.3 12/25/2017 Nausea ICD-10: R11.0 ICD-9: 787.02 11/22/2017 Diverticulitis of large intestine withou t perforation or abscess without bleeding ICD-10: K57.32 ICD-9: 562.11 11/22/2017 Laceration without foreign body of right forearm, subsequent encounter ICD-10: S51.811D ICD-9: V58.89 10/16/2017 Type 1 diabetes mellitus without complications ICD-10: E10.9 ICD-9: 250.00 07/22/2017 Mixed hyperlipidemia ICD-10: E78.2 ICD-9: 272.4 07/16/2017 Cough ICD-10: R05 ICD-9: 786.2 06/14/2017 Acute recurrent maxillary sinusitis ICD-10: J01.01 ICD-9: 461.0 06/14/2017 Low back pain ICD-10: M54.5 ICD-9: 724.2 03/26/2017 Sciatica, right side ICD-10: M54.31 ICD-9: 724.3 03/26/2017 Weakness ICD-10: R53.1 ICD-9: 780.79 01/16/2017 Frequency of micturition ICD-10: R35 .0 ICD-9: 788.41 01/16/2017 Fever presenting with conditions classified elsewhere ICD-10: R50.81 ICD-9: 780.61 01/16/2017 Nontoxic multinodular goiter ICD-10: E04.2 ICD-9: 241.9 10/16/2016 Actinic keratosis ICD-10: L57.0 ICD-9: 702.0 10/16/2016 Hypothyroidism, unspecified ICD-10: E03.9 ICD-9: 244.9 10/09/2016 Chronic obstructive pulmonary disease wi th (acute) exacerbation ICD-10: J44.1 ICD-9: 491.21 10/08/2016 Acute bronchitis, unspecified ICD-10 : J20.9 ICD-9: 466.0 10/01/2016 Encounter for general adult medical exam ination with abnormal findings ICD-10: Z00.01 ICD-9: V70.0 07/10/2016 Acute laryngopharyngitis ICD-10: J06 .0 ICD-9: 465.0 07/09/2016 Other allergic rhinitis ICD-10: J30. 89 ICD-9: 477.8 07/09/2016 Encounter for screening mammogram for ma lignant neoplasm of breast ICD-10: Z12.31 ICD-9: V76.12 02/01/2016 Pain in right hand ICD-10: M79.641 ICD-9: 729.5 12/26/2015 Other specified dorsopathies, lumbar region ICD-10: M53.86 ICD-9: 724.6 03/22/2015 Urge incontinence ICD-10: N39.41 ICD-9: 788.31 03/22/2015 Encounter for immunization ICD-10: Z 23 ICD-9: V03.82 02/15/2015 Other chronic pain ICD-10: G89.29 ICD-9: 729.5 02/15/2015 Encounter for immunization ICD-10: Z 23 ICD-9: V04.81 12/10/2014 ESSENTIAL HYPERTENSION ICD-9: 401.9 11/15/2014 Sacroiliac joint pain ICD-9: 724.6 11/15/2014 FALL FROM LADDER ICD-9: E881.0 11/15/2014 Left hand pain ICD-9: 729.5 11/15/2014 DIABETES TYPE II ICD-9: 250.00 11/15/2014 Right hip pain ICD-9: 719.45 11/15/2014 HYPERLIPIDEMIA ICD-9: 272.4 08/13/2014 Reason For Visit Reason For Visit Effective Dates Notes hypertension 10/23/2018 hypertension 08/28/2018 diarrhea 04/28/2018 righ t hand diarrhea 12/25/2017 diarrhea 11/22/2017 diabetes mellitus 10/07/2017 diabetes mellitus 09/16/2017 diabetes mellitus 09/09/2017 diabetes mellitus 07/16/2017 cough 06/14/2017 diabetes mellitus 06/10/2017 diabetes mellitus 05/13/2017 cough 03/26/2017 diabetes mellitus 02/19/2017 diabetes mellitus 01/16/2017 hypertension 01/08/2017 hypertension 11/21/2016 hypertension 10/16/2016 cough 10/08/2016 improvi ng cough 10/01/2016 ongoing cough 09/27/2016 diabetes mellitus 07/19/2016 Annual Medicare Wellness Exam 07/10/2016 Hospital Follow Up 07/09/2016 hypertension 06/06/2016 diabetes mellitus 04/03/2016 back pain 12/26/2015 back pain 09/19/2015 back pain 07/19/2015 back pain 03/22/2015 back pain 02/15/2015 vaccination against influenza 12/10/2014 back pain 11/15/2014 back pain 08/13/2014 Results Observation Observation Code Item Item Code Result Date %Hba1C Ncm407 % HbA1c 60545-4 7.8 % 08/13/2018 %Hba1C Ehu959 Gluc Ave 177 mg/dL 08/13/2018 Comp Metabolic Xsd439 NA 135 mEq/L 08/13/2018 Comp Metabolic Kao597 K 4.4 mEq/L 08/13/2018 Comp Metabolic Yse682 CL 101 mEq/L 08/13/2018 Comp Metabolic Djd111 CO2 27.0 mEq/L 08/13/2018 Comp Metabolic Hjj936 AN ION GAP 11 08/13/2018 Comp Metabolic Xim490 GL UCOSE 409 Result Verified By Repea t Analysis mg/dL 08/13/2018 Comp Metabolic Cpn353 Cr eat 0.8 mg/dL 08/13/2018 Comp Metabolic Tcx691 eG FR 73 ml/min/1.73m2 08/13 Comp Metabolic Aie518 BUN 23 mg/dL 08/13/2018 Comp Metabolic Fxl642 B/ C Ratio 29.1 Ratio 08/13/2018 Comp Metabolic Iwz110 CA LCIUM 9.0 mg/dL 08/13/2018 Comp Metabolic Byp545 AL K PHOS 66 U/L 08/13/2018 Comp Metabolic Lat560 T(SGOT) 16 U/L 08/13/2018 Comp Metabolic Auo597 AL T(SGPT) 11 U/L 08/13/2018 Comp Metabolic Ykz338 BI LI T 0.5 mg/dL 08/13/2018 Comp Metabolic Jta355 AL BUMIN 3.8 g/dL 08/13/2018 Comp Metabolic Uhl567 TP RO 5.8 g/dL 08/13/2018 Comp Metabolic Lbm695 GL OB 2.0 g/dL 08/13/2018 Comp Metabolic Zpw032 A/ G Ratio 1.9 Ratio 08/13/2018 Comp Metabolic Tvc103 Os mo 291 mOsmo 08/13/2018 Cbc With Differential Ord2 WBC 3.80 K/ul 08/13/2018 Cbc With Differential Ord2 RBC 3.51 M/ul 08/13/2018 Cbc With Differential Ord2 HGB 10.9 g/dl 08/13/2018 Cbc With Differential Ord2 HCT 32.8 % 08/13/2018 Cbc With Differential Ord2 Neut% 71.0 % 08/13/2018 Cbc With Differential Ord2 MCV 93.4 fl 08/13/2018 Cbc With Differential Ord2 Lymph% 17.1 % 08/13/2018 Cbc With Differential Ord2 MCH 31.1 pg 08/13/2018 Cbc With Differential Ord2 [place]% 9.5 % 08/13/2018 Cbc With Differential Ord2 Eos% 2.1 % 08/13/2018 Cbc With Differential Ord2 MCHC 33.2 pg 08/13/2018 Cbc With Differential Ord2 PLT 193 K/ul 08/13/2018 Cbc With Differential Ord2 Baso% 0.3 % 08/13/2018 Cbc With Differential Ord2 RDW 13.0 % 08/13/2018 Cbc With Differential Ord2 Neut ABS# 2.70 K/ul 08/13/2018 Cbc With Differential Ord2 Lymph ABS# 0.65 K/ul 08/13/2018 Cbc With Differential Ord2 [place] ABS# 0.4 K/ul 08/13/2018 Cbc With Differential Ord2 Eos ABS# 0.1 K/ul 08/13/2018 Cbc With Differential Ord2 Baso ABS# 0.0 K/ul 08/13/2018 Comp Metabolic Zzb100 NA 137 mEq/L 04/28/2018 Comp Metabolic Yyi565 K 4.1 mEq/L 04/28/2018 Comp Metabolic Jxe966 CL 101 mEq/L 04/28/2018 Comp Metabolic Yst343 CO2 28.0 mEq/L 04/28/2018 Comp Metabolic Ysy039 AN ION GAP 12 04/28/2018 Comp Metabolic Hxj195 GL UCOSE 195 mg/dL 04/28/2018 Comp Metabolic Fyl993 Cr eat 0.7 mg/dL 04/28/2018 Comp Metabolic Rtk843 eG FR 81 ml/min/1.73m2 04/28 Comp Metabolic Hhr520 BUN 24 mg/dL 04/28/2018 Comp Metabolic Btm990 B/ C Ratio 33.3 Ratio 04/28/2018 Comp Metabolic Qrq451 CA LCIUM 9.4 mg/dL 04/28/2018 Comp Metabolic Ceb363 AL K PHOS 72 U/L 04/28/2018 Comp Metabolic Jiy446 T(SGOT) 15 U/L 04/28/2018 Comp Metabolic Msr269 AL T(SGPT) 11 U/L 04/28/2018 Comp Metabolic Vnv557 BI LI T 0.6 mg/dL 04/28/2018 Comp Metabolic Sru448 AL BUMIN 4.0 g/dL 04/28/2018 Comp Metabolic Jxt878 TP RO 6.1 g/dL 04/28/2018 Comp Metabolic Sqi849 GL OB 2.1 g/dL 04/28/2018 Comp Metabolic Twr222 A/ G Ratio 2.0 Ratio 04/28/2018 Comp Metabolic Qhn234 Os mo 283 mOsmo 04/28/2018 %Hba1C Ikl061 % HbA1c 00295-2 7.5 % 04/28/2018 %Hba1C Ejp217 Gluc Ave 169 mg/dL 04/28/2018 %Hba1C Kee812 % HbA1c 67293-5 7.1 % 12/25/2017 %Hba1C Lrm808 Gluc Ave 157 mg/dL 12/25/2017 Comp Metabolic Zhn149 NA 139 mEq/L 12/25/2017 Comp Metabolic Mcz497 K 4.1 mEq/L 12/25/2017 Comp Metabolic Lcw554 CL 104 mEq/L 12/25/2017 Comp Metabolic Uuj962 CO2 28.0 mEq/L 12/25/2017 Comp Metabolic Rzn223 AN ION GAP 11 12/25/2017 Comp Metabolic Acz911 GL UCOSE 129 mg/dL 12/25/2017 Comp Metabolic Ljw934 Cr eat 0.7 mg/dL 12/25/2017 Comp Metabolic Scb170 eG FR 83 ml/min/1.73m2 12/25 Comp Metabolic Rvg385 BUN 22 mg/dL 12/25/2017 Comp Metabolic Ilb302 B/ C Ratio 31.0 Ratio 12/25/2017 Comp Metabolic Ram463 CA LCIUM 9.4 mg/dL 12/25/2017 Comp Metabolic Lzc669 AL K PHOS 70 U/L 12/25/2017 Comp Metabolic Qws806 T(SGOT) 16 U/L 12/25/2017 Comp Metabolic Ftp736 AL T(SGPT) 12 U/L 12/25/2017 Comp Metabolic Fpq641 BI LI T 0.5 mg/dL 12/25/2017 Comp Metabolic Pci177 AL BUMIN 4.2 g/dL 12/25/2017 Comp Metabolic Vrp105 TP RO 6.1 g/dL 12/25/2017 Comp Metabolic Gqh526 GL OB 1.9 g/dL 12/25/2017 Comp Metabolic Rwn146 A/ G Ratio 2.1 Ratio 12/25/2017 Comp Metabolic Dcy042 Os mo 283 mOsmo 12/25/2017 %Hba1C Qlu000 % HbA1c 05245-1 8.0 % 05/13/2017 %Hba1C Dkz503 Gluc Ave 183 mg/dL 05/13/2017 Comp Metabolic Pdy797 NA 135 mEq/L 05/13/2017 Comp Metabolic Ytk089 K 3.8 mEq/L 05/13/2017 Comp Metabolic Vkv416 CL 99 mEq/L 05/13/2017 Comp Metabolic Ncf914 CO2 29.0 mEq/L 05/13/2017 Comp Metabolic Ado424 AN ION GAP 11 05/13/2017 Comp Metabolic Xne628 GL UCOSE 155 mg/dL 05/13/2017 Comp Metabolic Eft361 Cr eat 0.7 mg/dL 05/13/2017 Comp Metabolic Hma426 eG FR 90 ml/min/1.73m2 05/13 Comp Metabolic Rmt428 BUN 18 mg/dL 05/13/2017 Comp Metabolic Hnp463 B/ C Ratio 27.3 Ratio 05/13/2017 Comp Metabolic His847 CA LCIUM 8.9 mg/dL 05/13/2017 Comp Metabolic Vnu687 AL K PHOS 90 U/L 05/13/2017 Comp Metabolic Pdk115 T(SGOT) 18 U/L 05/13/2017 Comp Metabolic Esq394 AL T(SGPT) 15 U/L 05/13/2017 Comp Metabolic Auf210 BI LI T 0.5 mg/dL 05/13/2017 Comp Metabolic Kjz825 AL BUMIN 4.0 g/dL 05/13/2017 Comp Metabolic Hkq583 TP RO 5.9 g/dL 05/13/2017 Comp Metabolic Erj633 GL OB 1.9 g/dL 05/13/2017 Comp Metabolic Snr121 A/ G Ratio 2.1 Ratio 05/13/2017 Comp Metabolic Vrt633 Os mo 275 mOsmo 05/13/2017 Urine Culture Ucult Prel iminary NO Growth Day 1 01/18 Urine Culture Ucult Comp lete NO Growth Day 2 01/18 Free T4 Lgo328 FREE T4 1.13 ng/dL 10/09/2016 Tsh Ord6 [...] 31.5 pg 10/08/2016 Cbc With Differential Ord2 [place]% 4.0 % 10/08/2016 Cbc With Differential Ord2 MCHC 34.1 pg 10/08/2016 Cbc With Differential Ord2 Eos% 0.0 % 10/08/2016 Cbc With Differential Ord2 PLT 227 K/ul 10/08/2016 Cbc With Differential Ord2 Baso% 0.0 % 10/08/2016 Cbc With Differential Ord2 RDW 12.4 % 10/08/2016 Cbc With Differential Ord2 Neut ABS# 7.88 K/ul 10/08/2016 Cbc With Differential Ord2 Lymph ABS# 0.96 K/ul 10/08/2016 Cbc With Differential Ord2 [place] ABS# 0.4 K/ul 10/08/2016 Cbc With Differential Ord2 Eos ABS# 0.0 K/ul 10/08/2016 Cbc With Differential Ord2 Baso ABS# 0.0 K/ul 10/08/2016 Comp Metabolic Nrm793 NA 135 mEq/L 10/08/2016 Comp Metabolic Eir309 K 4.3 mEq/L 10/08/2016 Comp Metabolic Ryg048 CL 98 mEq/L 10/08/2016 Comp Metabolic Kej234 CO2 22.0 mEq/L 10/08/2016 Comp Metabolic Cvf930 AN ION GAP 19 10/08/2016 Comp Metabolic Ylz019 GL UCOSE 400 mg/dL 10/08/2016 Comp Metabolic Vse560 Cr eat 0.7 mg/dL 10/08/2016 Comp Metabolic Flm442 eG FR 79 ml/min/1.73m2 10/08 Comp Metabolic Ilk628 BUN 27 mg/dL 10/08/2016 Comp Metabolic Cwl676 B/ C Ratio 36.5 Ratio 10/08/2016 Comp Metabolic Eru677 CA LCIUM 9.1 mg/dL 10/08/2016 Comp Metabolic Uje162 AL K PHOS 65 U/L 10/08/2016 Comp Metabolic Nfb755 T(SGOT) 28 U/L 10/08/2016 Comp Metabolic Xie177 AL T(SGPT) 24 U/L 10/08/2016 Comp Metabolic Kav495 BI LI T 0.7 mg/dL 10/08/2016 Comp Metabolic Wfu257 AL BUMIN 3.8 g/dL 10/08/2016 Comp Metabolic Uva690 TP RO 6.0 g/dL 10/08/2016 Comp Metabolic Vyr006 GL OB 2.2 g/dL 10/08/2016 Comp Metabolic Bnt098 A/ G Ratio 1.7 Ratio 10/08/2016 Comp Metabolic Rbt381 Os mo 292 mOsmo 10/08/2016 %Hba1C Niw567 % HbA1c 34644-5 7.0 % 10/08/2016 %Hba1C Iib861 Gluc Ave 154 mg/dL 10/08/2016 Microalbumin Yyq233 Micr oAlb <0.7 mg/dL 10/08/2016 Lipid Ord30 CHOL 172 mg/dL 10/08/2016 Lipid Ord30 HDL 72.0 mg/dl 10/08/2016 Lipid Ord30 TRIG 72 mg/dL 10/08/2016 Lipid Ord30 LDL 86 mg/dL 10/08/2016 Lipid Ord30 C/HDL 2.4 Ratio 10/08/2016 C A/B FLU Influenza A Scr TNP:Duplicate Order 0 04/03/2016 C A/B FLU Influenza B Scr TNP:Duplicate Order 0 04/03/2016 C A/B FLU IC OK? TNP:Duplicate Order 04/03/2016 C A/B FLU [id number] Influe nza A Scr Negative 04/03/2016 C A/B FLU [id number] Influe nza B Scr Negative 04/03/2016 Comp Metabolic Rij025 NA 138 mEq/L 09/15/2015 Comp Metabolic Eso828 K 4.4 mEq/L 09/15/2015 Comp Metabolic Bni912 CL 103 mEq/L 09/15/2015 Comp Metabolic Kzz329 CO2 29.0 mEq/L 09/15/2015 Comp Metabolic Ulp391 AN ION GAP 10 09/15/2015 Comp Metabolic Oev385 GL UCOSE 156 mg/dL 09/15/2015 Comp Metabolic Bfr520 Cr eat 0.7 mg/dL 09/15/2015 Comp Metabolic Qra433 eG FR 79 ml/min/1.73m2 09/14 Comp Metabolic Qln647 BUN 23 mg/dL 09/15/2015 Comp Metabolic Rpd881 B/ C Ratio 31.1 Ratio 09/15/2015 Comp Metabolic Byu579 CA LCIUM 9.1 mg/dL 09/15/2015 Comp Metabolic Txy078 AL K PHOS 58 U/L 09/15/2015 Comp Metabolic Xhw733 T(SGOT) 19 U/L 09/15/2015 Comp Metabolic Ymh212 AL T(SGPT) 11 U/L 09/15/2015 Comp Metabolic Tre983 BI LI T 0.6 mg/dL 09/15/2015 Comp Metabolic Yjy895 AL BUMIN 3.9 g/dL 09/15/2015 Comp Metabolic Glx847 TP RO 5.8 g/dL 09/15/2015 Comp Metabolic Nba724 GL OB 1.9 g/dL 09/15/2015 Comp Metabolic Slf164 A/ G Ratio 2.1 Ratio 09/15/2015 Comp Metabolic Cyg381 Os mo 283 mOsmo 09/15/2015 Cbc With Differential Ord2 WBC 4.40 K/ul 09/15/2015 Cbc With Differential Ord2 RBC 3.84 M/ul 09/15/2015 Cbc With Differential Ord2 HGB 11.7 g/dl 09/15/2015 Cbc With Differential Ord2 HCT 34.8 % 09/15/2015 Cbc With Differential Ord2 Neut% 68.3 % 09/15/2015 Cbc With Differential Ord2 MCV 90.6 fl 09/15/2015 Cbc With Differential Ord2 Lymph% 19.5 % 09/15/2015 Cbc With Differential Ord2 MCH 30.5 pg 09/15/2015 Cbc With Differential Ord2 [place]% 10.2 % 09/15/2015 Cbc With Differential Ord2 MCHC 33.6 pg 09/15/2015 Cbc With Differential Ord2 Eos% 1.8 % 09/15/2015 Cbc With Differential Ord2 PLT 181 K/ul 09/15/2015 Cbc With Differential Ord2 Baso% 0.2 % 09/15/2015 Cbc With Differential Ord2 RDW 12.6 % 09/15/2015 Cbc With Differential Ord2 Neut ABS# 3.00 K/ul 09/15/2015 Cbc With Differential Ord2 Lymph ABS# 0.86 K/ul 09/15/2015 Cbc With Differential Ord2 [place] ABS# 0.5 K/ul 09/15/2015 Cbc With Differential Ord2 Eos ABS# 0.1 K/ul 09/15/2015 Cbc With Differential Ord2 Baso ABS# 0.0 K/ul 09/15/2015 Tsh Ord6 hTSH II 0.76 uIU/mL 09/15/2015 Lipid Ord30 CHOL 139 mg/dL 09/15/2015 Lipid Ord30 HDL 57.0 mg/dl 09/15/2015 Lipid Ord30 TRIG 76 mg/dL 09/15/2015 Lipid Ord30 LDL 67 mg/dL 09/15/2015 Lipid Ord30 C/HDL 2.4 Ratio 09/15/2015 %Hba1C Mkm056 % HbA1c 76097-8 6.6 % 09/15/2015 %Hba1C Unq910 Gluc Ave 143 mg/dL 09/15/2015 Tsh Ord6 hTSH II 0.68 uIU/mL 06/02/2015 %Hba1C Eyp444 % HbA1c 12889-5 6.5 % 06/02/2015 %Hba1C Dqp353 Gluc Ave 140 mg/dL 06/02/2015 Comp Metabolic Iji538 NA 139 mEq/L 06/02/2015 Comp Metabolic Wlj072 K 4.5 mEq/L 06/02/2015 Comp Metabolic Zbe776 CL 104 mEq/L 06/02/2015 Comp Metabolic Psx785 CO2 25.0 mEq/L 06/02/2015 Comp Metabolic Pys162 AN ION GAP 15 06/02/2015 Comp Metabolic Spm294 GL UCOSE 123 mg/dL 06/02/2015 Comp Metabolic Kcj350 Cr eat 0.7 mg/dL 06/02/2015 Comp Metabolic Lac107 eG FR 92 ml/min/1.73m2 06/01 Comp Metabolic Sto708 BUN 21 mg/dL 06/02/2015 Comp Metabolic Mnw176 B/ C Ratio 32.3 Ratio 06/02/2015 Comp Metabolic Fpf836 CA LCIUM 9.5 mg/dL 06/02/2015 Comp Metabolic Byg495 AL K PHOS 66 U/L 06/02/2015 Comp Metabolic Uxq182 T(SGOT) 19 U/L 06/02/2015 Comp Metabolic Nmo306 AL T(SGPT) 13 U/L 06/02/2015 Comp Metabolic Tde379 BI LI T 0.5 mg/dL 06/02/2015 Comp Metabolic Dtc608 AL BUMIN 4.0 g/dL 06/02/2015 Comp Metabolic Gld115 TP RO 6.3 g/dL 06/02/2015 Comp Metabolic Fjl039 GL OB 2.3 g/dL 06/02/2015 Comp Metabolic Zzv008 A/ G Ratio 1.7 Ratio 06/02/2015 Comp Metabolic Utg442 Os mo 282 mOsmo 06/02/2015 %Hba1C Cvv667 % HbA1c 44227-2 6.7 % 02/17/2015 %Hba1C Kyd093 Gluc Ave 146 mg/dL 02/17/2015 Comp Metabolic Tnz308 NA 133 mEq/L 02/17/2015 Comp Metabolic Gji363 K 4.3 mEq/L 02/17/2015 Comp Metabolic Frm995 CL 99 mEq/L 02/17/2015 Comp Metabolic Joh152 CO2 27.0 mEq/L 02/17/2015 Comp Metabolic Aft047 AN ION GAP 11 02/17/2015 Comp Metabolic Gdv105 GL UCOSE 239 mg/dL 02/17/2015 Comp Metabolic Url322 Cr eat 0.7 mg/dL 02/17/2015 Comp Metabolic Ata750 eG FR 79 ml/min/1.73m2 02/17 Comp Metabolic Pkd551 BUN 24 mg/dL 02/17/2015 Comp Metabolic Cuz304 B/ C Ratio 32.4 Ratio 02/17/2015 Comp Metabolic Mav250 CA LCIUM 9.1 mg/dL 02/17/2015 Comp Metabolic Fxv699 AL K PHOS 75 U/L 02/17/2015 Comp Metabolic Sko633 T(SGOT) 18 U/L 02/17/2015 Comp Metabolic Wwt187 AL T(SGPT) 11 U/L 02/17/2015 Comp Metabolic Uee622 BI LI T 0.6 mg/dL 02/17/2015 Comp Metabolic Oeg211 AL BUMIN 4.2 g/dL 02/17/2015 Comp Metabolic Dbd933 TP RO 6.2 g/dL 02/17/2015 Comp Metabolic Wzy043 GL OB 2.0 g/dL 02/17/2015 Comp Metabolic Dnm375 A/ G Ratio 2.1 Ratio 02/17/2015 Comp Metabolic Wmn791 Os mo 278 mOsmo 02/17/2015 %Hba1C Brw933 % HbA1c 32233-0 6.7 % 11/15/2014 %Hba1C Zqy444 Gluc Ave 146 mg/dL 11/15/2014 Comp Metabolic Aen946 NA 134 mEq/L 11/15/2014 Comp Metabolic Lpa805 K 4.5 mEq/L 11/15/2014 Comp Metabolic Rgk744 CL 101 mEq/L 11/15/2014 Comp Metabolic Pqz324 CO2 27.0 mEq/L 11/15/2014 Comp Metabolic Euy904 AN ION GAP 11 11/15/2014 Comp Metabolic Feh065 GL UCOSE 293 mg/dL 11/15/2014 Comp Metabolic Bpy998 Cr eat 0.7 mg/dL 11/15/2014 Comp Metabolic Fpf405 eG FR 87 ml/min/1.73m2 11/15 Comp Metabolic Rjx393 BUN 20 mg/dL 11/15/2014 Comp Metabolic Mab869 B/ C Ratio 29.4 Ratio 11/15/2014 Comp Metabolic Bny542 CA LCIUM 9.0 mg/dL 11/15/2014 Comp Metabolic Vmo504 AL K PHOS 67 U/L 11/15/2014 Comp Metabolic Wef391 T(SGOT) 17 U/L 11/15/2014 Comp Metabolic Yme071 AL T(SGPT) 10 U/L 11/15/2014 Comp Metabolic Kor259 BI LI T 0.6 mg/dL 11/15/2014 Comp Metabolic Chk448 AL BUMIN 4.0 g/dL 11/15/2014 Comp Metabolic Bmm311 TP RO 6.0 g/dL 11/15/2014 Comp Metabolic Mmb509 GL OB 2.0 g/dL 11/15/2014 Comp Metabolic Pic646 A/ G Ratio 2.0 Ratio 11/15/2014 Comp Metabolic Phm016 Os mo 282 mOsmo 11/15/2014 Review of Systems System Result Effective Dates Constitutional No recent illness 10/23/2018 Constitutional No chills 10/23/2018 Constitutional fatigue 0 10/23/2018 Constitutional No fever 10/23/2018 Constitutional No insomnia 10/23/2018 Constitutional No malaise 10/23/2018 Eyes No blindness 2018 Eyes No vision change Ears/Nose/Throat/Neck No dental pain 10/23/2018 Ears/Nose/Throat/Neck No dizziness 10/23/2018 Ears/Nose/Throat/Neck No dysphagia 10/23/2018 Ears/Nose/Throat/Neck No headache 10/23/2018 Ears/Nose/Throat/Neck No hearing loss 10/23/2018 Ears/Nose/Throat/Neck No nasal allergies 10/23/2018 Ears/Nose/Throat/Neck No sore throat 10/23/2018 Ears/Nose/Throat/Neck No postnasal drip 10/23/2018 Ears/Nose/Throat/Neck No sinus congestion 10/23/2018 Cardiovascular No chest pain/pressure 10/23/2018 Cardiovascular No dyspnea 10/23/2018 Cardiovascular edema Cardiovascular No exercise intolerance 10/23/2018 Cardiovascular No fatigue 10/23/2018 Cardiovascular No near-syncope/dizziness 10/23/2018 Respiratory No chest tightness 10/23/2018 Respiratory No cough Respiratory No dyspnea 0 10/23/2018 Respiratory No pedal edema 10/23/2018 Gastrointestinal No constipation 10/23/2018 Gastrointestinal No diarrhea 10/23/2018 Gastrointestinal No gastroesophageal reflu x 10/23/2018 Gastrointestinal No nausea 10/23/2018 Gastrointestinal No vomiting 10/23/2018 Genitourinary/Nephrology No dysuria 10/23/2018 Genitourinary/Nephrology No nocturia 10/23/2018 Genitourinary/Nephrology urinary frequency 10/23/2018 Genitourinary/Nephrology No urinary incontinence 10/23/2018 Musculoskeletal stiffness 10/23/2018 Musculoskeletal No swelling 10/23/2018 Musculoskeletal back pain 10/23/2018 Musculoskeletal joint complaint 10/23/2018 Musculoskeletal muscle weakness 10/23/2018 Musculoskeletal No myalgias 10/23/2018 Dermatologic sores 10/23 Neurologic No dizziness 10/23/2018 Neurologic No headache 0 10/23/2018 Neurologic No neck pain 10/23/2018 Neurologic No syncope Psychiatric No anxiety 0 10/23/2018 Psychiatric No depression 10/23/2018 Endocrine diabetes mellitus type 2 10/23/2018 Constitutional No recent illness 08/28/2018 Constitutional No chills 08/28/2018 Constitutional fatigue 0 08/28/2018 Constitutional No fever 08/28/2018 Constitutional No insomnia 08/28/2018 Constitutional No malaise 08/28/2018 Eyes No blindness 2018 Eyes No vision change Ears/Nose/Throat/Neck No dental pain 08/28/2018 Ears/Nose/Throat/Neck No dizziness 08/28/2018 Ears/Nose/Throat/Neck No dysphagia 08/28/2018 Ears/Nose/Throat/Neck No headache 08/28/2018 Ears/Nose/Throat/Neck No hearing loss 08/28/2018 Ears/Nose/Throat/Neck No nasal allergies 08/28/2018 Ears/Nose/Throat/Neck No sore throat 08/28/2018 Ears/Nose/Throat/Neck No postnasal drip 08/28/2018 Ears/Nose/Throat/Neck No sinus congestion 08/28/2018 Cardiovascular No chest pain/pressure 08/28/2018 Cardiovascular No dyspnea 08/28/2018 Cardiovascular edema Cardiovascular No exercise intolerance 08/28/2018 Cardiovascular No fatigue 08/28/2018 Cardiovascular No near-syncope/dizziness 08/28/2018 Respiratory No chest tightness 08/28/2018 Respiratory No cough Respiratory No dyspnea 0 08/28/2018 Respiratory No pedal edema 08/28/2018 Gastrointestinal abdominal pain 08/28/2018 Gastrointestinal No constipation 08/28/2018 Gastrointestinal No diarrhea 08/28/2018 Gastrointestinal No gastroesophageal reflu x 08/28/2018 Gastrointestinal No nausea 08/28/2018 Gastrointestinal No vomiting 08/28/2018 Genitourinary/Nephrology No dysuria 08/28/2018 Genitourinary/Nephrology No nocturia 08/28/2018 Genitourinary/Nephrology urinary frequency 08/28/2018 Genitourinary/Nephrology No urinary incontinence 08/28/2018 Musculoskeletal stiffness 08/28/2018 Musculoskeletal No swelling 08/28/2018 Musculoskeletal back pain 08/28/2018 Musculoskeletal joint complaint 08/28/2018 Musculoskeletal muscle weakness 08/28/2018 Musculoskeletal No myalgias 08/28/2018 Dermatologic sores 08/28 Neurologic No dizziness 08/28/2018 Neurologic No headache 0 08/28/2018 Neurologic No neck pain 08/28/2018 Neurologic No syncope Psychiatric No anxiety 0 08/28/2018 Psychiatric No depression 08/28/2018 Endocrine diabetes mellitus type 2 08/28/2018 Constitutional No recent illness 04/28/2018 Constitutional No chills 04/28/2018 Constitutional fatigue 0 04/28/2018 Constitutional No fever 04/28/2018 Constitutional No insomnia 04/28/2018 Constitutional No malaise 04/28/2018 Eyes No blindness 2018 Eyes No vision change Ears/Nose/Throat/Neck No dental pain 04/28/2018 Ears/Nose/Throat/Neck No dizziness 04/28/2018 Ears/Nose/Throat/Neck No dysphagia 04/28/2018 Ears/Nose/Throat/Neck No headache 04/28/2018 Ears/Nose/Throat/Neck No hearing loss 04/28/2018 Ears/Nose/Throat/Neck No nasal allergies 04/28/2018 Ears/Nose/Throat/Neck No sore throat 04/28/2018 Ears/Nose/Throat/Neck No postnasal drip 04/28/2018 Ears/Nose/Throat/Neck No sinus congestion 04/28/2018 Cardiovascular No chest pain/pressure 04/28/2018 Cardiovascular No dyspnea 04/28/2018 Cardiovascular edema Cardiovascular No exercise intolerance 04/28/2018 Cardiovascular No fatigue 04/28/2018 Cardiovascular No near-syncope/dizziness 04/28/2018 Respiratory No chest tightness 04/28/2018 Respiratory No cough Respiratory No dyspnea 0 04/28/2018 Respiratory No pedal edema 04/28/2018 Gastrointestinal abdominal pain 04/28/2018 Gastrointestinal No constipation 04/28/2018 Gastrointestinal No diarrhea 04/28/2018 Gastrointestinal No gastroesophageal reflu x 04/28/2018 Gastrointestinal No nausea 04/28/2018 Gastrointestinal No vomiting 04/28/2018 Genitourinary/Nephrology No dysuria 04/28/2018 Genitourinary/Nephrology No nocturia 04/28/2018 Genitourinary/Nephrology urinary frequency 04/28/2018 Genitourinary/Nephrology No urinary incontinence 04/28/2018 Musculoskeletal stiffness 04/28/2018 Musculoskeletal No swelling 04/28/2018 Musculoskeletal back pain 04/28/2018 Musculoskeletal joint complaint 04/28/2018 Musculoskeletal muscle weakness 04/28/2018 Musculoskeletal No myalgias 04/28/2018 Neurologic No dizziness 04/28/2018 Neurologic No headache 0 04/28/2018 Neurologic No neck pain 04/28/2018 Neurologic No syncope Psychiatric No anxiety 0 04/28/2018 Psychiatric No depression 04/28/2018 Endocrine diabetes mellitus type 2 04/28/2018 Dermatologic No sores Constitutional No recent illness 12/25/2017 Constitutional No chills 12/25/2017 Constitutional fatigue 1 Constitutional No fever 12/25/2017 Constitutional No insomnia 12/25/2017 Constitutional No malaise 12/25/2017 Eyes No blindness 2017 Eyes No vision change Ears/Nose/Throat/Neck No dental pain 12/25/2017 Ears/Nose/Throat/Neck No dizziness 12/25/2017 Ears/Nose/Throat/Neck No dysphagia 12/25/2017 Ears/Nose/Throat/Neck No headache 12/25/2017 Ears/Nose/Throat/Neck No hearing loss 12/25/2017 Ears/Nose/Throat/Neck No nasal allergies 12/25/2017 Ears/Nose/Throat/Neck No sore throat 12/25/2017 Ears/Nose/Throat/Neck No postnasal drip 12/25/2017 Ears/Nose/Throat/Neck No sinus congestion 12/25/2017 Cardiovascular No chest pain/pressure 12/25/2017 Cardiovascular No dyspnea 12/25/2017 Cardiovascular edema Cardiovascular No exercise intolerance 12/25/2017 Cardiovascular No fatigue 12/25/2017 Cardiovascular No near-syncope/dizziness 12/25/2017 Respiratory No chest tightness 12/25/2017 Respiratory No cough Respiratory No dyspnea 1 Respiratory No pedal edema 12/25/2017 Gastrointestinal abdominal pain 12/25/2017 Gastrointestinal No constipation 12/25/2017 Gastrointestinal No diarrhea 12/25/2017 Gastrointestinal No gastroesophageal reflu x 12/25/2017 Gastrointestinal No nausea 12/25/2017 Gastrointestinal No vomiting 12/25/2017 Genitourinary/Nephrology No dysuria 12/25/2017 Genitourinary/Nephrology No nocturia 12/25/2017 Genitourinary/Nephrology urinary frequency 12/25/2017 Genitourinary/Nephrology No urinary incontinence 12/25/2017 Musculoskeletal stiffness 12/25/2017 Musculoskeletal No swelling 12/25/2017 Musculoskeletal back pain 12/25/2017 Musculoskeletal joint complaint 12/25/2017 Musculoskeletal muscle weakness 12/25/2017 Musculoskeletal No myalgias 12/25/2017 Dermatologic sores 12/25 Neurologic No dizziness 12/25/2017 Neurologic No headache 1 Neurologic No neck pain 12/25/2017 Neurologic No syncope Psychiatric No anxiety 1 Psychiatric No depression 12/25/2017 Endocrine diabetes mellitus type 2 12/25/2017 Constitutional recent illness 11/22/2017 Constitutional anorexia 11/22/2017 Constitutional No night sweats 11/22/2017 Constitutional chills Constitutional No diaphoresis 11/22/2017 Constitutional No fatigue 11/22/2017 Constitutional No fever 11/22/2017 Constitutional No insomnia 11/22/2017 Constitutional No malaise 11/22/2017 Constitutional No weight loss 11/22/2017 Constitutional No weight gain 11/22/2017 Eyes No eye discharge Eyes No eye erythema Ears/Nose/Throat/Neck No dizziness 11/22/2017 Ears/Nose/Throat/Neck No headache 11/22/2017 Cardiovascular No chest pain/pressure 11/22/2017 Cardiovascular No dyspnea 11/22/2017 Cardiovascular No edema 11/22/2017 Respiratory No cough Gastrointestinal abdominal pain 11/22/2017 Gastrointestinal No constipation 11/22/2017 Gastrointestinal diarrhea 11/22/2017 Gastrointestinal nausea 11/22/2017 Gastrointestinal No vomiting 11/22/2017 Genitourinary/Nephrology No dysuria 11/22/2017 Musculoskeletal No joint complaint 11/22/2017 Dermatologic No sores Neurologic No alteration of consciousness 11/22/2017 Psychiatric No depression 11/22/2017 Endocrine No dry or coarse skin 11/22/2017 Constitutional No recent illness 10/07/2017 Constitutional No chills 10/07/2017 Constitutional fatigue 0 10/07/2017 Constitutional No fever 10/07/2017 Constitutional No insomnia 10/07/2017 Constitutional No malaise 10/07/2017 Eyes No blindness 2017 Eyes No vision change Ears/Nose/Throat/Neck No dental pain 10/07/2017 Ears/Nose/Throat/Neck No dizziness 10/07/2017 Ears/Nose/Throat/Neck No dysphagia 10/07/2017 Ears/Nose/Throat/Neck No headache 10/07/2017 Ears/Nose/Throat/Neck No hearing loss 10/07/2017 Ears/Nose/Throat/Neck No nasal allergies 10/07/2017 Ears/Nose/Throat/Neck No sore throat 10/07/2017 Ears/Nose/Throat/Neck No postnasal drip 10/07/2017 Ears/Nose/Throat/Neck No sinus congestion 10/07/2017 Cardiovascular No chest pain/pressure 10/07/2017 Cardiovascular No dyspnea 10/07/2017 Cardiovascular edema 08/2017 Cardiovascular No exercise intolerance 10/07/2017 Cardiovascular No fatigue 10/07/2017 Cardiovascular No near-syncope/dizziness 10/07/2017 Respiratory No chest tightness 10/07/2017 Respiratory No cough 08/2017 Respiratory No dyspnea 0 10/07/2017 Respiratory No pedal edema 10/07/2017 Gastrointestinal No abdominal pain 10/07/2017 Gastrointestinal No constipation 10/07/2017 Gastrointestinal No diarrhea 10/07/2017 Gastrointestinal No gastroesophageal reflu x 10/07/2017 Gastrointestinal No nausea 10/07/2017 Gastrointestinal No vomiting 10/07/2017 Genitourinary/Nephrology No dysuria 10/07/2017 Genitourinary/Nephrology No nocturia 10/07/2017 Genitourinary/Nephrology urinary frequency 10/07/2017 Genitourinary/Nephrology No urinary incontinence 10/07/2017 Musculoskeletal stiffness 10/07/2017 Musculoskeletal No swelling 10/07/2017 Musculoskeletal back pain 10/07/2017 Musculoskeletal joint complaint 10/07/2017 Musculoskeletal muscle weakness 10/07/2017 Musculoskeletal No myalgias 10/07/2017 Neurologic No dizziness 10/07/2017 Neurologic No headache 0 10/07/2017 Neurologic No neck pain 10/07/2017 Neurologic No syncope Psychiatric No anxiety 0 10/07/2017 Psychiatric No depression 10/07/2017 Endocrine diabetes mellitus type 2 10/07/2017 Dermatologic sores 10/07 Constitutional No recent illness 09/16/2017 Constitutional No chills 09/16/2017 Constitutional No diaphoresis 09/16/2017 Constitutional No fever 09/16/2017 Eyes No eye erythema Ears/Nose/Throat/Neck No nasal allergies 09/16/2017 Ears/Nose/Throat/Neck No nasal discharge 09/16/2017 Cardiovascular No chest pain/pressure 09/16/2017 Cardiovascular No dyspnea 09/16/2017 Respiratory No chest congestion 09/16/2017 Respiratory No cough Gastrointestinal No abdominal pain 09/16/2017 Neurologic No alteration of consciousness 09/16/2017 Neurologic No mental status change 09/16/2017 Endocrine diabetes mellitus type 2 09/16/2017 Constitutional recent illness 09/09/2017 Constitutional No chills 09/09/2017 Constitutional fatigue 0 09/09/2017 Constitutional No fever 09/09/2017 Constitutional No insomnia 09/09/2017 Constitutional No malaise 09/09/2017 Eyes No blindness 2017 Eyes No vision change Ears/Nose/Throat/Neck No dental pain 09/09/2017 Ears/Nose/Throat/Neck No dizziness 09/09/2017 Ears/Nose/Throat/Neck No dysphagia 09/09/2017 Ears/Nose/Throat/Neck No headache 09/09/2017 Ears/Nose/Throat/Neck No hearing loss 09/09/2017 Ears/Nose/Throat/Neck No nasal allergies 09/09/2017 Ears/Nose/Throat/Neck No sore throat 09/09/2017 Ears/Nose/Throat/Neck No postnasal drip 09/09/2017 Ears/Nose/Throat/Neck No sinus congestion 09/09/2017 Cardiovascular No chest pain/pressure 09/09/2017 Cardiovascular No dyspnea 09/09/2017 Cardiovascular No edema 09/09/2017 Cardiovascular No exercise intolerance 09/09/2017 Cardiovascular No fatigue 09/09/2017 Cardiovascular No near-syncope/dizziness 09/09/2017 Respiratory No chest tightness 09/09/2017 Respiratory No cough 11/2017 Respiratory No dyspnea 0 09/09/2017 Respiratory No pedal edema 09/09/2017 Gastrointestinal No abdominal pain 09/09/2017 Gastrointestinal No constipation 09/09/2017 Gastrointestinal No diarrhea 09/09/2017 Gastrointestinal No gastroesophageal reflu x 09/09/2017 Gastrointestinal No nausea 09/09/2017 Gastrointestinal No vomiting 09/09/2017 Genitourinary/Nephrology No dysuria 09/09/2017 Genitourinary/Nephrology No nocturia 09/09/2017 Genitourinary/Nephrology urinary frequency 09/09/2017 Genitourinary/Nephrology No urinary incontinence 09/09/2017 Musculoskeletal stiffness 09/09/2017 Musculoskeletal No swelling 09/09/2017 Musculoskeletal back pain 09/09/2017 Musculoskeletal joint complaint 09/09/2017 Musculoskeletal muscle weakness 09/09/2017 Musculoskeletal No myalgias 09/09/2017 Neurologic No dizziness 09/09/2017 Neurologic No headache 0 09/09/2017 Neurologic No neck pain 09/09/2017 Neurologic No syncope Psychiatric No anxiety 0 09/09/2017 Psychiatric No depression 09/09/2017 Endocrine diabetes mellitus type 2 09/09/2017 Cardiovascular hypertension 09/09/2017 Constitutional No recent illness 07/16/2017 Constitutional No chills 07/16/2017 Constitutional fatigue 0 07/16/2017 Constitutional No fever 07/16/2017 Constitutional No insomnia 07/16/2017 Constitutional No malaise 07/16/2017 Eyes No blindness 2017 Eyes No vision change Ears/Nose/Throat/Neck No dental pain 07/16/2017 Ears/Nose/Throat/Neck No dizziness 07/16/2017 Ears/Nose/Throat/Neck No dysphagia 07/16/2017 Ears/Nose/Throat/Neck No headache 07/16/2017 Ears/Nose/Throat/Neck No hearing loss 07/16/2017 Ears/Nose/Throat/Neck No nasal allergies 07/16/2017 Ears/Nose/Throat/Neck No sore throat 07/16/2017 Ears/Nose/Throat/Neck No postnasal drip 07/16/2017 Ears/Nose/Throat/Neck No sinus congestion 07/16/2017 Cardiovascular No chest pain/pressure 07/16/2017 Cardiovascular No dyspnea 07/16/2017 Cardiovascular No edema 07/16/2017 Cardiovascular No exercise intolerance 07/16/2017 Cardiovascular No fatigue 07/16/2017 Cardiovascular No near-syncope/dizziness 07/16/2017 Respiratory No chest tightness 07/16/2017 Respiratory No cough Respiratory No dyspnea 0 07/16/2017 Respiratory No pedal edema 07/16/2017 Gastrointestinal No abdominal pain 07/16/2017 Gastrointestinal No constipation 07/16/2017 Gastrointestinal No diarrhea 07/16/2017 Gastrointestinal No gastroesophageal reflu x 07/16/2017 Gastrointestinal No nausea 07/16/2017 Gastrointestinal No vomiting 07/16/2017 Genitourinary/Nephrology No dysuria 07/16/2017 Genitourinary/Nephrology No nocturia 07/16/2017 Genitourinary/Nephrology urinary frequency 07/16/2017 Genitourinary/Nephrology No urinary incontinence 07/16/2017 Musculoskeletal stiffness 07/16/2017 Musculoskeletal No swelling 07/16/2017 Musculoskeletal back pain 07/16/2017 Musculoskeletal joint complaint 07/16/2017 Musculoskeletal muscle weakness 07/16/2017 Musculoskeletal No myalgias 07/16/2017 Neurologic No dizziness 07/16/2017 Neurologic No headache 0 07/16/2017 Neurologic No neck pain 07/16/2017 Neurologic No syncope Psychiatric No anxiety 0 07/16/2017 Psychiatric No depression 07/16/2017 Endocrine diabetes mellitus type 2 07/16/2017 Constitutional recent illness 06/14/2017 Constitutional No anorexia 06/14/2017 Constitutional No night sweats 06/14/2017 Constitutional No chills 06/14/2017 Constitutional No diaphoresis 06/14/2017 Constitutional fatigue 0 06/14/2017 Constitutional No fever 06/14/2017 Constitutional No insomnia 06/14/2017 Constitutional No weight gain 06/14/2017 Constitutional No weight loss 06/14/2017 Constitutional No malaise 06/14/2017 Ears/Nose/Throat/Neck headache 06/14/2017 Ears/Nose/Throat/Neck nasal discharge 06/14/2017 Ears/Nose/Throat/Neck otalgia 06/14/2017 Ears/Nose/Throat/Neck sinus congestion 06/14/2017 Ears/Nose/Throat/Neck sore throat 06/14/2017 Cardiovascular No chest pain/pressure 06/14/2017 Cardiovascular No dyspnea 06/14/2017 Cardiovascular No edema 06/14/2017 Eyes No eye discharge Respiratory No productive sputum 06/14/2017 Respiratory No chest congestion 06/14/2017 Respiratory No cough Gastrointestinal No diarrhea 06/14/2017 Gastrointestinal No vomiting 06/14/2017 Gastrointestinal No nausea 06/14/2017 Genitourinary/Nephrology No dysuria 06/14/2017 Musculoskeletal No joint complaint 06/14/2017 Dermatologic No rash Neurologic No alteration of consciousness 06/14/2017 Constitutional recent illness 06/10/2017 Constitutional No chills 06/10/2017 Constitutional fatigue 0 06/10/2017 Constitutional No fever 06/10/2017 Constitutional No insomnia 06/10/2017 Constitutional No malaise 06/10/2017 Eyes No blindness 2017 Eyes No vision change Ears/Nose/Throat/Neck No dental pain 06/10/2017 Ears/Nose/Throat/Neck No dizziness 06/10/2017 Ears/Nose/Throat/Neck No dysphagia 06/10/2017 Ears/Nose/Throat/Neck No headache 06/10/2017 Ears/Nose/Throat/Neck No hearing loss 06/10/2017 Ears/Nose/Throat/Neck No nasal allergies 06/10/2017 Ears/Nose/Throat/Neck No sore throat 06/10/2017 Ears/Nose/Throat/Neck No postnasal drip 06/10/2017 Ears/Nose/Throat/Neck No sinus congestion 06/10/2017 Cardiovascular No chest pain/pressure 06/10/2017 Cardiovascular No dyspnea 06/10/2017 Cardiovascular No edema 06/10/2017 Cardiovascular No exercise intolerance 06/10/2017 Cardiovascular No fatigue 06/10/2017 Cardiovascular No near-syncope/dizziness 06/10/2017 Respiratory No chest tightness 06/10/2017 Respiratory cough 2017 Respiratory No dyspnea 0 06/10/2017 Respiratory No pedal edema 06/10/2017 Gastrointestinal No abdominal pain 06/10/2017 Gastrointestinal No constipation 06/10/2017 Gastrointestinal No diarrhea 06/10/2017 Gastrointestinal No gastroesophageal reflu x 06/10/2017 Gastrointestinal No nausea 06/10/2017 Gastrointestinal No vomiting 06/10/2017 Musculoskeletal stiffness 06/10/2017 Musculoskeletal No swelling 06/10/2017 Musculoskeletal back pain 06/10/2017 Musculoskeletal joint complaint 06/10/2017 Musculoskeletal muscle weakness 06/10/2017 Musculoskeletal No myalgias 06/10/2017 Neurologic No dizziness 06/10/2017 Neurologic No headache 0 06/10/2017 Neurologic No neck pain 06/10/2017 Neurologic No syncope Psychiatric No anxiety 0 06/10/2017 Psychiatric No depression 06/10/2017 Endocrine diabetes mellitus type 2 06/10/2017 Constitutional recent illness 05/13/2017 Constitutional No chills 05/13/2017 Constitutional fatigue 0 05/13/2017 Constitutional No fever 05/13/2017 Constitutional No insomnia 05/13/2017 Constitutional No malaise 05/13/2017 Eyes No blindness 2017 Eyes No vision change Ears/Nose/Throat/Neck No dental pain 05/13/2017 Ears/Nose/Throat/Neck No dizziness 05/13/2017 Ears/Nose/Throat/Neck No dysphagia 05/13/2017 Ears/Nose/Throat/Neck No headache 05/13/2017 Ears/Nose/Throat/Neck No hearing loss 05/13/2017 Ears/Nose/Throat/Neck No nasal allergies 05/13/2017 Ears/Nose/Throat/Neck No sore throat 05/13/2017 Ears/Nose/Throat/Neck No postnasal drip 05/13/2017 Ears/Nose/Throat/Neck No sinus congestion 05/13/2017 Cardiovascular No chest pain/pressure 05/13/2017 Cardiovascular No dyspnea 05/13/2017 Cardiovascular No edema 05/13/2017 Cardiovascular No exercise intolerance 05/13/2017 Cardiovascular No fatigue 05/13/2017 Cardiovascular No near-syncope/dizziness 05/13/2017 Respiratory No chest tightness 05/13/2017 Respiratory cough 2017 Respiratory No dyspnea 0 05/13/2017 Respiratory No pedal edema 05/13/2017 Gastrointestinal No abdominal pain 05/13/2017 Gastrointestinal No constipation 05/13/2017 Gastrointestinal No diarrhea 05/13/2017 Gastrointestinal No gastroesophageal reflu x 05/13/2017 Gastrointestinal No nausea 05/13/2017 Gastrointestinal No vomiting 05/13/2017 Musculoskeletal stiffness 05/13/2017 Musculoskeletal No swelling 05/13/2017 Musculoskeletal back pain 05/13/2017 Musculoskeletal joint complaint 05/13/2017 Musculoskeletal muscle weakness 05/13/2017 Musculoskeletal No myalgias 05/13/2017 Neurologic No dizziness 05/13/2017 Neurologic No headache 0 05/13/2017 Neurologic No neck pain 05/13/2017 Neurologic No syncope Psychiatric No anxiety 0 05/13/2017 Psychiatric No depression 05/13/2017 Endocrine diabetes mellitus type 2 05/13/2017 Constitutional No recent illness 03/26/2017 Constitutional No chills 03/26/2017 Constitutional No fever 03/26/2017 Eyes No eye erythema Ears/Nose/Throat/Neck nasal discharge 03/26/2017 Cardiovascular No chest pain/pressure 03/26/2017 Cardiovascular No dyspnea 03/26/2017 Respiratory cough 2017 Respiratory No dyspnea 0 03/26/2017 Neurologic No alteration of consciousness 03/26/2017 Neurologic No mental status change 03/26/2017 Ears/Nose/Throat/Neck nasal allergies 03/26/2017 Musculoskeletal back pain 03/26/2017 Constitutional recent illness 02/19/2017 Constitutional No chills 02/19/2017 Constitutional fatigue 1 04/22/2016 Constitutional No fever 02/19/2017 Constitutional No insomnia 02/19/2017 Constitutional No malaise 02/19/2017 Eyes No blindness 2016 Eyes No vision change Ears/Nose/Throat/Neck No dental pain 02/19/2017 Ears/Nose/Throat/Neck No dizziness 02/19/2017 Ears/Nose/Throat/Neck No dysphagia 02/19/2017 Ears/Nose/Throat/Neck No headache 02/19/2017 Ears/Nose/Throat/Neck No hearing loss 02/19/2017 Ears/Nose/Throat/Neck No nasal allergies 02/19/2017 Ears/Nose/Throat/Neck No sore throat 02/19/2017 Ears/Nose/Throat/Neck No postnasal drip 02/19/2017 Ears/Nose/Throat/Neck No sinus congestion 02/19/2017 Cardiovascular No chest pain/pressure 02/19/2017 Cardiovascular No dyspnea 02/19/2017 Cardiovascular No edema 02/19/2017 Cardiovascular No exercise intolerance 02/19/2017 Cardiovascular No fatigue 02/19/2017 Cardiovascular No near-syncope/dizziness 02/19/2017 Respiratory No chest tightness 02/19/2017 Respiratory cough 2016 Respiratory No dyspnea 1 04/22/2016 Respiratory No pedal edema 02/19/2017 Gastrointestinal No abdominal pain 02/19/2017 Gastrointestinal No constipation 02/19/2017 Gastrointestinal No diarrhea 02/19/2017 Gastrointestinal No gastroesophageal reflu x 02/19/2017 Gastrointestinal No nausea 02/19/2017 Gastrointestinal No vomiting 02/19/2017 Musculoskeletal stiffness 02/19/2017 Musculoskeletal No swelling 02/19/2017 Musculoskeletal back pain 02/19/2017 Musculoskeletal joint complaint 02/19/2017 Musculoskeletal muscle weakness 02/19/2017 Musculoskeletal No myalgias 02/19/2017 Neurologic No dizziness 02/19/2017 Neurologic No headache 1 04/22/2016 Neurologic No neck pain 02/19/2017 Neurologic No syncope Psychiatric No anxiety 1 04/22/2016 Psychiatric No depression 02/19/2017 Endocrine diabetes mellitus type 2 02/19/2017 Constitutional recent illness 01/16/2017 Constitutional No chills 01/16/2017 Constitutional fatigue 1 03/18/2016 Constitutional No fever 01/16/2017 Constitutional No insomnia 01/16/2017 Constitutional No malaise 01/16/2017 Eyes No blindness 2016 Eyes No vision change Ears/Nose/Throat/Neck No dental pain 01/16/2017 Ears/Nose/Throat/Neck No dizziness 01/16/2017 Ears/Nose/Throat/Neck No dysphagia 01/16/2017 Ears/Nose/Throat/Neck No headache 01/16/2017 Ears/Nose/Throat/Neck No hearing loss 01/16/2017 Ears/Nose/Throat/Neck No nasal allergies 01/16/2017 Ears/Nose/Throat/Neck No sore throat 01/16/2017 Ears/Nose/Throat/Neck No postnasal drip 01/16/2017 Ears/Nose/Throat/Neck No sinus congestion 01/16/2017 Cardiovascular No chest pain/pressure 01/16/2017 Cardiovascular No dyspnea 01/16/2017 Cardiovascular No edema 01/16/2017 Cardiovascular No exercise intolerance 01/16/2017 Cardiovascular No fatigue 01/16/2017 Cardiovascular No near-syncope/dizziness 01/16/2017 Respiratory No chest tightness 01/16/2017 Respiratory No cough Respiratory No dyspnea 1 03/18/2016 Respiratory No pedal edema 01/16/2017 Gastrointestinal No abdominal pain 01/16/2017 Gastrointestinal No constipation 01/16/2017 Gastrointestinal No diarrhea 01/16/2017 Gastrointestinal No gastroesophageal reflu x 01/16/2017 Gastrointestinal No nausea 01/16/2017 Gastrointestinal No vomiting 01/16/2017 Genitourinary/Nephrology No dysuria 01/16/2017 Genitourinary/Nephrology No nocturia 01/16/2017 Genitourinary/Nephrology No urinary incontinence 01/16/2017 Musculoskeletal stiffness 01/16/2017 Musculoskeletal No swelling 01/16/2017 Musculoskeletal back pain 01/16/2017 Musculoskeletal joint complaint 01/16/2017 Musculoskeletal muscle weakness 01/16/2017 Musculoskeletal No myalgias 01/16/2017 Neurologic No dizziness 01/16/2017 Neurologic No headache 1 03/18/2016 Neurologic No neck pain 01/16/2017 Neurologic No syncope Psychiatric No anxiety 1 03/18/2016 Psychiatric No depression 01/16/2017 Genitourinary/Nephrology urinary frequency 01/16/2017 Endocrine diabetes mellitus type 2 01/16/2017 Constitutional recent illness 01/08/2017 Constitutional No chills 01/08/2017 Constitutional fatigue 1 03/10/2016 Constitutional No fever 01/08/2017 Constitutional No insomnia 01/08/2017 Constitutional No malaise 01/08/2017 Eyes No blindness 2016 Eyes No vision change Ears/Nose/Throat/Neck No dental pain 01/08/2017 Ears/Nose/Throat/Neck No dizziness 01/08/2017 Ears/Nose/Throat/Neck No dysphagia 01/08/2017 Ears/Nose/Throat/Neck No headache 01/08/2017 Ears/Nose/Throat/Neck No hearing loss 01/08/2017 Ears/Nose/Throat/Neck No nasal allergies 01/08/2017 Ears/Nose/Throat/Neck No sore throat 01/08/2017 Ears/Nose/Throat/Neck No postnasal drip 01/08/2017 Ears/Nose/Throat/Neck No sinus congestion 01/08/2017 Cardiovascular No chest pain/pressure 01/08/2017 Cardiovascular No dyspnea 01/08/2017 Cardiovascular No edema 01/08/2017 Cardiovascular No exercise intolerance 01/08/2017 Cardiovascular No fatigue 01/08/2017 Cardiovascular No near-syncope/dizziness 01/08/2017 Respiratory No chest tightness 01/08/2017 Respiratory cough 2016 Respiratory No dyspnea 1 03/10/2016 Respiratory No pedal edema 01/08/2017 Gastrointestinal No abdominal pain 01/08/2017 Gastrointestinal No constipation 01/08/2017 Gastrointestinal No diarrhea 01/08/2017 Gastrointestinal No gastroesophageal reflu x 01/08/2017 Gastrointestinal No nausea 01/08/2017 Gastrointestinal No vomiting 01/08/2017 Musculoskeletal stiffness 01/08/2017 Musculoskeletal No swelling 01/08/2017 Musculoskeletal back pain 01/08/2017 Musculoskeletal joint complaint 01/08/2017 Musculoskeletal muscle weakness 01/08/2017 Musculoskeletal No myalgias 01/08/2017 Dermatologic No rash 09/2016 Dermatologic No sores Dermatologic No scar 09/2016 Neurologic No dizziness 01/08/2017 Neurologic No headache 1 03/10/2016 Neurologic No neck pain 01/08/2017 Neurologic No syncope Psychiatric No anxiety 1 03/10/2016 Psychiatric No depression 01/08/2017 Constitutional No recent illness 11/21/2016 Constitutional No chills 11/21/2016 Constitutional fatigue 0 11/21/2016 Constitutional No fever 11/21/2016 Constitutional No insomnia 11/21/2016 Constitutional No malaise 11/21/2016 Eyes No blindness 2016 Eyes No vision change Ears/Nose/Throat/Neck No dental pain 11/21/2016 Ears/Nose/Throat/Neck No dizziness 11/21/2016 Ears/Nose/Throat/Neck No dysphagia 11/21/2016 Ears/Nose/Throat/Neck No headache 11/21/2016 Ears/Nose/Throat/Neck No hearing loss 11/21/2016 Ears/Nose/Throat/Neck No nasal allergies 11/21/2016 Ears/Nose/Throat/Neck No sore throat 11/21/2016 Ears/Nose/Throat/Neck No postnasal drip 11/21/2016 Ears/Nose/Throat/Neck No sinus congestion 11/21/2016 Cardiovascular No chest pain/pressure 11/21/2016 Cardiovascular No dyspnea 11/21/2016 Cardiovascular No edema 11/21/2016 Cardiovascular No exercise intolerance 11/21/2016 Cardiovascular No fatigue 11/21/2016 Cardiovascular No near-syncope/dizziness 11/21/2016 Respiratory No chest tightness 11/21/2016 Respiratory cough 2016 Respiratory No dyspnea 0 11/21/2016 Respiratory No pedal edema 11/21/2016 Gastrointestinal No abdominal pain 11/21/2016 Gastrointestinal No constipation 11/21/2016 Gastrointestinal No diarrhea 11/21/2016 Gastrointestinal No gastroesophageal reflu x 11/21/2016 Gastrointestinal No nausea 11/21/2016 Gastrointestinal No vomiting 11/21/2016 Musculoskeletal stiffness 11/21/2016 Musculoskeletal No swelling 11/21/2016 Musculoskeletal back pain 11/21/2016 Musculoskeletal joint complaint 11/21/2016 Musculoskeletal muscle weakness 11/21/2016 Musculoskeletal No myalgias 11/21/2016 Dermatologic No rash Dermatologic No sores Dermatologic No scar Neurologic No dizziness 11/21/2016 Neurologic No headache 0 11/21/2016 Neurologic No neck pain 11/21/2016 Neurologic No syncope Psychiatric No anxiety 0 11/21/2016 Psychiatric No depression 11/21/2016 Constitutional recent illness 10/16/2016 Constitutional No chills 10/16/2016 Constitutional fatigue 0 10/16/2016 Constitutional No fever 10/16/2016 Constitutional No insomnia 10/16/2016 Constitutional No malaise 10/16/2016 Eyes No blindness 2016 Eyes No vision change Ears/Nose/Throat/Neck No dental pain 10/16/2016 Ears/Nose/Throat/Neck No dizziness 10/16/2016 Ears/Nose/Throat/Neck No dysphagia 10/16/2016 Ears/Nose/Throat/Neck No headache 10/16/2016 Ears/Nose/Throat/Neck No hearing loss 10/16/2016 Ears/Nose/Throat/Neck No nasal allergies 10/16/2016 Ears/Nose/Throat/Neck No sore throat 10/16/2016 Ears/Nose/Throat/Neck No postnasal drip 10/16/2016 Ears/Nose/Throat/Neck No sinus congestion 10/16/2016 Cardiovascular No chest pain/pressure 10/16/2016 Cardiovascular No dyspnea 10/16/2016 Cardiovascular No edema 10/16/2016 Cardiovascular No exercise intolerance 10/16/2016 Cardiovascular No fatigue 10/16/2016 Cardiovascular No near-syncope/dizziness 10/16/2016 Respiratory No chest tightness 10/16/2016 Respiratory cough 2016 Respiratory No dyspnea 0 10/16/2016 Respiratory No pedal edema 10/16/2016 Gastrointestinal No abdominal pain 10/16/2016 Gastrointestinal No constipation 10/16/2016 Gastrointestinal No diarrhea 10/16/2016 Gastrointestinal No gastroesophageal reflu x 10/16/2016 Gastrointestinal No nausea 10/16/2016 Gastrointestinal No vomiting 10/16/2016 Musculoskeletal stiffness 10/16/2016 Musculoskeletal No swelling 10/16/2016 Musculoskeletal back pain 10/16/2016 Musculoskeletal joint complaint 10/16/2016 Musculoskeletal muscle weakness 10/16/2016 Musculoskeletal No myalgias 10/16/2016 Dermatologic No rash Dermatologic No sores Dermatologic No scar Neurologic No dizziness 10/16/2016 Neurologic No headache 0 10/16/2016 Neurologic No neck pain 10/16/2016 Neurologic No syncope Psychiatric No anxiety 0 10/16/2016 Psychiatric No depression 10/16/2016 Constitutional recent illness 10/08/2016 Constitutional No anorexia 10/08/2016 Constitutional No night sweats 10/08/2016 Constitutional No chills 10/08/2016 Constitutional No diaphoresis 10/08/2016 Constitutional fatigue 0 10/08/2016 Constitutional No fever 10/08/2016 Constitutional No insomnia 10/08/2016 Constitutional No malaise 10/08/2016 Constitutional No weight loss 10/08/2016 Constitutional No weight gain 10/08/2016 Eyes No eye discharge Eyes No eye erythema 09/2016 Ears/Nose/Throat/Neck No dizziness 10/08/2016 Ears/Nose/Throat/Neck nasal allergies 10/08/2016 Ears/Nose/Throat/Neck nasal discharge 10/08/2016 Ears/Nose/Throat/Neck No otalgia 10/08/2016 Ears/Nose/Throat/Neck sinus congestion 10/08/2016 Cardiovascular No chest pain/pressure 10/08/2016 Cardiovascular No dyspnea 10/08/2016 Cardiovascular No edema 10/08/2016 Respiratory No productive sputum 10/08/2016 Respiratory chest congestion 10/08/2016 Respiratory cough 2016 Gastrointestinal No abdominal pain 10/08/2016 Gastrointestinal No constipation 10/08/2016 Gastrointestinal No diarrhea 10/08/2016 Genitourinary/Nephrology No dysuria 10/08/2016 Genitourinary/Nephrology urinary inc ontinence 10/08/2016 Musculoskeletal No joint complaint 10/08/2016 Dermatologic No rash 09/2016 Neurologic No alteration of consciousness 10/08/2016 Constitutional recent illness 10/01/2016 Constitutional No anorexia 10/01/2016 Constitutional No night sweats 10/01/2016 Constitutional No chills 10/01/2016 Constitutional No diaphoresis 10/01/2016 Constitutional fatigue 0 10/01/2016 Constitutional No fever 10/01/2016 Constitutional No insomnia 10/01/2016 Constitutional No malaise 10/01/2016 Constitutional No weight loss 10/01/2016 Constitutional No weight gain 10/01/2016 Eyes No eye discharge Eyes No eye erythema Ears/Nose/Throat/Neck No dizziness 10/01/2016 Ears/Nose/Throat/Neck nasal allergies 10/01/2016 Ears/Nose/Throat/Neck nasal discharge 10/01/2016 Ears/Nose/Throat/Neck No otalgia 10/01/2016 Ears/Nose/Throat/Neck sinus congestion 10/01/2016 Cardiovascular No chest pain/pressure 10/01/2016 Cardiovascular No dyspnea 10/01/2016 Cardiovascular No edema 10/01/2016 Respiratory No productive sputum 10/01/2016 Respiratory chest congestion 10/01/2016 Respiratory cough 2016 Gastrointestinal No abdominal pain 10/01/2016 Gastrointestinal No constipation 10/01/2016 Gastrointestinal No diarrhea 10/01/2016 Genitourinary/Nephrology No dysuria 10/01/2016 Genitourinary/Nephrology urinary inc ontinence 10/01/2016 Musculoskeletal No joint complaint 10/01/2016 Dermatologic No rash Neurologic No alteration of consciousness 10/01/2016 Constitutional recent illness 09/27/2016 Constitutional No anorexia 09/27/2016 Constitutional No night sweats 09/27/2016 Constitutional No chills 09/27/2016 Constitutional No diaphoresis 09/27/2016 Constitutional fatigue 0 09/27/2016 Constitutional No fever 09/27/2016 Constitutional No malaise 09/27/2016 Constitutional No weight loss 09/27/2016 Constitutional No weight gain 09/27/2016 Constitutional No insomnia 09/27/2016 Eyes No eye erythema Eyes No eye discharge Ears/Nose/Throat/Neck No dizziness 09/27/2016 Ears/Nose/Throat/Neck nasal allergies 09/27/2016 Ears/Nose/Throat/Neck nasal discharge 09/27/2016 Ears/Nose/Throat/Neck No otalgia 09/27/2016 Ears/Nose/Throat/Neck sinus congestion 09/27/2016 Cardiovascular No chest pain/pressure 09/27/2016 Cardiovascular No dyspnea 09/27/2016 Cardiovascular No edema 09/27/2016 Respiratory No productive sputum 09/27/2016 Respiratory chest congestion 09/27/2016 Respiratory cough 2016 Gastrointestinal No abdominal pain 09/27/2016 Gastrointestinal No constipation 09/27/2016 Gastrointestinal No diarrhea 09/27/2016 Genitourinary/Nephrology No dysuria 09/27/2016 Genitourinary/Nephrology urinary inc ontinence 09/27/2016 Musculoskeletal No joint complaint 09/27/2016 Dermatologic No rash Neurologic No alteration of consciousness 09/27/2016 Constitutional recent illness 07/19/2016 Constitutional No chills 07/19/2016 Constitutional fatigue 0 07/19/2016 Constitutional No fever 07/19/2016 Constitutional No insomnia 07/19/2016 Constitutional No malaise 07/19/2016 Eyes No blindness 2016 Eyes No vision change Ears/Nose/Throat/Neck No dental pain 07/19/2016 Ears/Nose/Throat/Neck No dizziness 07/19/2016 Ears/Nose/Throat/Neck No dysphagia 07/19/2016 Ears/Nose/Throat/Neck No headache 07/19/2016 Ears/Nose/Throat/Neck No hearing loss 07/19/2016 Ears/Nose/Throat/Neck No nasal allergies 07/19/2016 Ears/Nose/Throat/Neck No sore throat 07/19/2016 Ears/Nose/Throat/Neck No postnasal drip 07/19/2016 Ears/Nose/Throat/Neck No sinus congestion 07/19/2016 Cardiovascular No chest pain/pressure 07/19/2016 Cardiovascular No dyspnea 07/19/2016 Cardiovascular No edema 07/19/2016 Cardiovascular No exercise intolerance 07/19/2016 Cardiovascular No fatigue 07/19/2016 Cardiovascular No near-syncope/dizziness 07/19/2016 Respiratory No chest tightness 07/19/2016 Respiratory cough 2016 Respiratory No dyspnea 0 07/19/2016 Respiratory No pedal edema 07/19/2016 Gastrointestinal No abdominal pain 07/19/2016 Gastrointestinal No constipation 07/19/2016 Gastrointestinal No diarrhea 07/19/2016 Gastrointestinal No gastroesophageal reflu x 07/19/2016 Gastrointestinal No nausea 07/19/2016 Gastrointestinal No vomiting 07/19/2016 Musculoskeletal stiffness 07/19/2016 Musculoskeletal No swelling 07/19/2016 Musculoskeletal back pain 07/19/2016 Musculoskeletal joint complaint 07/19/2016 Musculoskeletal muscle weakness 07/19/2016 Musculoskeletal No myalgias 07/19/2016 Dermatologic No rash Dermatologic No sores Dermatologic No scar Neurologic No dizziness 07/19/2016 Neurologic No headache 0 07/19/2016 Neurologic No neck pain 07/19/2016 Neurologic No syncope Psychiatric No anxiety 0 07/19/2016 Psychiatric No depression 07/19/2016 Constitutional recent illness 07/10/2016 Constitutional No chills 07/10/2016 Constitutional fatigue 0 07/10/2016 Constitutional No fever 07/10/2016 Eyes No eye erythema 11/2016 Eyes No vision change Ears/Nose/Throat/Neck nasal allergies 07/10/2016 Cardiovascular No chest pain/pressure 07/10/2016 Cardiovascular No dyspnea 07/10/2016 Respiratory No cough 11/2016 Respiratory No dyspnea 0 07/10/2016 Gastrointestinal No abdominal pain 07/10/2016 Gastrointestinal No constipation 07/10/2016 Gastrointestinal No diarrhea 07/10/2016 Dermatologic No rash 11/2016 Dermatologic No scar 11/2016 Ears/Nose/Throat/Neck nasal discharge 07/10/2016 Neurologic No alteration of consciousness 07/10/2016 Neurologic No mental status change 07/10/2016 Constitutional recent illness 07/09/2016 Constitutional No chills 07/09/2016 Constitutional fatigue 0 07/09/2016 Constitutional No fever 07/09/2016 Constitutional No insomnia 07/09/2016 Constitutional No malaise 07/09/2016 Eyes No blindness 2016 Eyes No vision change Ears/Nose/Throat/Neck No dental pain 07/09/2016 Ears/Nose/Throat/Neck No dizziness 07/09/2016 Ears/Nose/Throat/Neck No dysphagia 07/09/2016 Ears/Nose/Throat/Neck No headache 07/09/2016 Ears/Nose/Throat/Neck No hearing loss 07/09/2016 Ears/Nose/Throat/Neck No nasal allergies 07/09/2016 Ears/Nose/Throat/Neck No sore throat 07/09/2016 Ears/Nose/Throat/Neck No postnasal drip 07/09/2016 Ears/Nose/Throat/Neck No sinus congestion 07/09/2016 Cardiovascular No chest pain/pressure 07/09/2016 Cardiovascular No dyspnea 07/09/2016 Cardiovascular No edema 07/09/2016 Cardiovascular No exercise intolerance 07/09/2016 Cardiovascular No fatigue 07/09/2016 Cardiovascular No near-syncope/dizziness 07/09/2016 Respiratory No chest tightness 07/09/2016 Respiratory No cough 10/2016 Respiratory No dyspnea 0 07/09/2016 Respiratory No pedal edema 07/09/2016 Gastrointestinal No abdominal pain 07/09/2016 Gastrointestinal No constipation 07/09/2016 Gastrointestinal No diarrhea 07/09/2016 Gastrointestinal No gastroesophageal reflu x 07/09/2016 Gastrointestinal No nausea 07/09/2016 Gastrointestinal No vomiting 07/09/2016 Genitourinary/Nephrology No dysuria 07/09/2016 Genitourinary/Nephrology No nocturia 07/09/2016 Genitourinary/Nephrology No urinary incontinence 07/09/2016 Musculoskeletal stiffness 07/09/2016 Musculoskeletal No swelling 07/09/2016 Musculoskeletal back pain 07/09/2016 Musculoskeletal joint complaint 07/09/2016 Musculoskeletal muscle weakness 07/09/2016 Musculoskeletal No myalgias 07/09/2016 Dermatologic No rash 10/2016 Dermatologic No sores Dermatologic No scar 10/2016 Neurologic No dizziness 07/09/2016 Neurologic No headache 0 07/09/2016 Neurologic No neck pain 07/09/2016 Neurologic No syncope Psychiatric No anxiety 0 07/09/2016 Psychiatric No depression 07/09/2016 Constitutional No recent illness 06/06/2016 Constitutional No chills 06/06/2016 Constitutional No fatigue 06/06/2016 Constitutional No fever 06/06/2016 Constitutional No insomnia 06/06/2016 Constitutional No malaise 06/06/2016 Eyes No blindness 2016 Eyes No vision change Ears/Nose/Throat/Neck No dental pain 06/06/2016 Ears/Nose/Throat/Neck No dizziness 06/06/2016 Ears/Nose/Throat/Neck No dysphagia 06/06/2016 Ears/Nose/Throat/Neck No headache 06/06/2016 Ears/Nose/Throat/Neck No hearing loss 06/06/2016 Ears/Nose/Throat/Neck No nasal allergies 06/06/2016 Ears/Nose/Throat/Neck No sore throat 06/06/2016 Ears/Nose/Throat/Neck No postnasal drip 06/06/2016 Ears/Nose/Throat/Neck No sinus congestion 06/06/2016 Cardiovascular No chest pain/pressure 06/06/2016 Cardiovascular No dyspnea 06/06/2016 Cardiovascular No edema 06/06/2016 Cardiovascular No exercise intolerance 06/06/2016 Cardiovascular No fatigue 06/06/2016 Cardiovascular No near-syncope/dizziness 06/06/2016 Respiratory No chest tightness 06/06/2016 Respiratory No cough 07/2016 Respiratory No dyspnea 0 06/06/2016 Respiratory No pedal edema 06/06/2016 Gastrointestinal No abdominal pain 06/06/2016 Gastrointestinal No constipation 06/06/2016 Gastrointestinal No diarrhea 06/06/2016 Gastrointestinal No gastroesophageal reflu x 06/06/2016 Gastrointestinal No nausea 06/06/2016 Gastrointestinal No vomiting 06/06/2016 Genitourinary/Nephrology No dysuria 06/06/2016 Genitourinary/Nephrology No nocturia 06/06/2016 Genitourinary/Nephrology No urinary incontinence 06/06/2016 Musculoskeletal stiffness 06/06/2016 Musculoskeletal No swelling 06/06/2016 Musculoskeletal back pain 06/06/2016 Musculoskeletal joint complaint 06/06/2016 Musculoskeletal muscle weakness 06/06/2016 Musculoskeletal No myalgias 06/06/2016 Dermatologic No rash 07/2016 Dermatologic No sores Dermatologic No scar 07/2016 Neurologic No dizziness 06/06/2016 Neurologic No headache 0 06/06/2016 Neurologic No neck pain 06/06/2016 Neurologic No syncope Psychiatric No anxiety 0 06/06/2016 Psychiatric No depression 06/06/2016 Constitutional recent illness 04/03/2016 Constitutional No diaphoresis 04/03/2016 Eyes No eye erythema Ears/Nose/Throat/Neck nasal allergies 04/03/2016 Ears/Nose/Throat/Neck nasal discharge 04/03/2016 Ears/Nose/Throat/Neck postnasal drip 04/03/2016 Cardiovascular No chest pain/pressure 04/03/2016 Cardiovascular No dyspnea 04/03/2016 Respiratory No chest congestion 04/03/2016 Respiratory cough 2016 Respiratory No dyspnea 0 04/03/2016 Gastrointestinal No constipation 04/03/2016 Gastrointestinal No diarrhea 04/03/2016 Gastrointestinal No nausea 04/03/2016 Gastrointestinal No vomiting 04/03/2016 Dermatologic No rash Neurologic No alteration of consciousness 04/03/2016 Neurologic No mental status change 04/03/2016 Ears/Nose/Throat/Neck sinus congestion 04/03/2016 Constitutional No recent illness 12/26/2015 Constitutional No chills 12/26/2015 Constitutional No fatigue 12/26/2015 Constitutional No fever 12/26/2015 Constitutional No insomnia 12/26/2015 Constitutional No malaise 12/26/2015 Eyes No blindness 2015 Eyes No vision change Ears/Nose/Throat/Neck No dental pain 12/26/2015 Ears/Nose/Throat/Neck No dizziness 12/26/2015 Ears/Nose/Throat/Neck No dysphagia 12/26/2015 Ears/Nose/Throat/Neck No headache 12/26/2015 Ears/Nose/Throat/Neck No hearing loss 12/26/2015 Ears/Nose/Throat/Neck No nasal allergies 12/26/2015 Ears/Nose/Throat/Neck No sore throat 12/26/2015 Ears/Nose/Throat/Neck No postnasal drip 12/26/2015 Ears/Nose/Throat/Neck No sinus congestion 12/26/2015 Cardiovascular No chest pain/pressure 12/26/2015 Cardiovascular No dyspnea 12/26/2015 Cardiovascular No edema 12/26/2015 Cardiovascular No exercise intolerance 12/26/2015 Cardiovascular No fatigue 12/26/2015 Cardiovascular No near-syncope/dizziness 12/26/2015 Respiratory No chest tightness 12/26/2015 Respiratory No cough Respiratory No dyspnea 1 Respiratory No pedal edema 12/26/2015 Gastrointestinal No abdominal pain 12/26/2015 Gastrointestinal No constipation 12/26/2015 Gastrointestinal No diarrhea 12/26/2015 Gastrointestinal No gastroesophageal reflu x 12/26/2015 Gastrointestinal No nausea 12/26/2015 Gastrointestinal No vomiting 12/26/2015 Genitourinary/Nephrology No dysuria 12/26/2015 Genitourinary/Nephrology No nocturia 12/26/2015 Genitourinary/Nephrology No urinary incontinence 12/26/2015 Musculoskeletal stiffness 12/26/2015 Musculoskeletal No swelling 12/26/2015 Musculoskeletal back pain 12/26/2015 Musculoskeletal muscle weakness 12/26/2015 Musculoskeletal No myalgias 12/26/2015 Dermatologic No rash Dermatologic No sores Dermatologic No scar Neurologic No dizziness 12/26/2015 Neurologic No headache 1 Neurologic No neck pain 12/26/2015 Neurologic No syncope Psychiatric No anxiety 1 Psychiatric No depression 12/26/2015 Musculoskeletal joint complaint 12/26/2015 Constitutional No recent illness 09/19/2015 Constitutional No chills 09/19/2015 Constitutional No fatigue 09/19/2015 Constitutional No fever 09/19/2015 Constitutional No insomnia 09/19/2015 Constitutional No malaise 09/19/2015 Eyes No blindness 2015 Eyes No vision change Ears/Nose/Throat/Neck No dental pain 09/19/2015 Ears/Nose/Throat/Neck No dizziness 09/19/2015 Ears/Nose/Throat/Neck No dysphagia 09/19/2015 Ears/Nose/Throat/Neck No headache 09/19/2015 Ears/Nose/Throat/Neck No hearing loss 09/19/2015 Ears/Nose/Throat/Neck No nasal allergies 09/19/2015 Ears/Nose/Throat/Neck No sore throat 09/19/2015 Ears/Nose/Throat/Neck No postnasal drip 09/19/2015 Ears/Nose/Throat/Neck No sinus congestion 09/19/2015 Cardiovascular No chest pain/pressure 09/19/2015 Cardiovascular No dyspnea 09/19/2015 Cardiovascular No edema 09/19/2015 Cardiovascular No exercise intolerance 09/19/2015 Cardiovascular No fatigue 09/19/2015 Cardiovascular No near-syncope/dizziness 09/19/2015 Respiratory No chest tightness 09/19/2015 Respiratory No cough Respiratory No dyspnea 0 09/19/2015 Respiratory No pedal edema 09/19/2015 Gastrointestinal No abdominal pain 09/19/2015 Gastrointestinal No constipation 09/19/2015 Gastrointestinal No diarrhea 09/19/2015 Gastrointestinal No gastroesophageal reflu x 09/19/2015 Gastrointestinal No nausea 09/19/2015 Gastrointestinal No vomiting 09/19/2015 Genitourinary/Nephrology No dysuria 09/19/2015 Genitourinary/Nephrology No nocturia 09/19/2015 Genitourinary/Nephrology No urinary incontinence 09/19/2015 Musculoskeletal stiffness 09/19/2015 Musculoskeletal No swelling 09/19/2015 Musculoskeletal back pain 09/19/2015 Musculoskeletal joint complaint 09/19/2015 Musculoskeletal muscle weakness 09/19/2015 Musculoskeletal No myalgias 09/19/2015 Dermatologic No rash Dermatologic No sores Dermatologic No scar Neurologic No dizziness 09/19/2015 Neurologic No headache 0 09/19/2015 Neurologic No neck pain 09/19/2015 Neurologic No syncope Psychiatric No anxiety 0 09/19/2015 Psychiatric No depression 09/19/2015 Constitutional No recent illness 07/19/2015 Constitutional No chills 07/19/2015 Constitutional No fatigue 07/19/2015 Constitutional No fever 07/19/2015 Constitutional No insomnia 07/19/2015 Constitutional No malaise 07/19/2015 Eyes No blindness 2015 Eyes No vision change Ears/Nose/Throat/Neck No dental pain 07/19/2015 Ears/Nose/Throat/Neck No dizziness 07/19/2015 Ears/Nose/Throat/Neck No dysphagia 07/19/2015 Ears/Nose/Throat/Neck No headache 07/19/2015 Ears/Nose/Throat/Neck No hearing loss 07/19/2015 Ears/Nose/Throat/Neck No nasal allergies 07/19/2015 Ears/Nose/Throat/Neck No sore throat 07/19/2015 Ears/Nose/Throat/Neck No postnasal drip 07/19/2015 Ears/Nose/Throat/Neck No sinus congestion 07/19/2015 Cardiovascular No chest pain/pressure 07/19/2015 Cardiovascular No dyspnea 07/19/2015 Cardiovascular No edema 07/19/2015 Cardiovascular No exercise intolerance 07/19/2015 Cardiovascular No fatigue 07/19/2015 Cardiovascular No near-syncope/dizziness 07/19/2015 Respiratory No chest tightness 07/19/2015 Respiratory No cough Respiratory No dyspnea 0 07/19/2015 Respiratory No pedal edema 07/19/2015 Gastrointestinal No abdominal pain 07/19/2015 Gastrointestinal No constipation 07/19/2015 Gastrointestinal No diarrhea 07/19/2015 Gastrointestinal No gastroesophageal reflu x 07/19/2015 Gastrointestinal No nausea 07/19/2015 Gastrointestinal No vomiting 07/19/2015 Genitourinary/Nephrology No dysuria 07/19/2015 Genitourinary/Nephrology No nocturia 07/19/2015 Genitourinary/Nephrology No urinary incontinence 07/19/2015 Musculoskeletal stiffness 07/19/2015 Musculoskeletal No swelling 07/19/2015 Musculoskeletal back pain 07/19/2015 Musculoskeletal joint complaint 07/19/2015 Musculoskeletal muscle weakness 07/19/2015 Musculoskeletal No myalgias 07/19/2015 Dermatologic No rash Dermatologic No sores Dermatologic No scar Neurologic No dizziness 07/19/2015 Neurologic No headache 0 07/19/2015 Neurologic No neck pain 07/19/2015 Neurologic No syncope Psychiatric No anxiety 0 07/19/2015 Psychiatric No depression 07/19/2015 Constitutional No recent illness 03/22/2015 Constitutional No chills 03/22/2015 Constitutional No fatigue 03/22/2015 Constitutional No fever 03/22/2015 Constitutional No insomnia 03/22/2015 Constitutional No malaise 03/22/2015 Eyes No blindness 2015 Eyes No vision change Ears/Nose/Throat/Neck No dental pain 03/22/2015 Ears/Nose/Throat/Neck No dizziness 03/22/2015 Ears/Nose/Throat/Neck No dysphagia 03/22/2015 Ears/Nose/Throat/Neck No headache 03/22/2015 Ears/Nose/Throat/Neck No hearing loss 03/22/2015 Ears/Nose/Throat/Neck No nasal allergies 03/22/2015 Ears/Nose/Throat/Neck No sore throat 03/22/2015 Ears/Nose/Throat/Neck No postnasal drip 03/22/2015 Ears/Nose/Throat/Neck No sinus congestion 03/22/2015 Cardiovascular No chest pain/pressure 03/22/2015 Cardiovascular No dyspnea 03/22/2015 Cardiovascular No edema 03/22/2015 Cardiovascular No exercise intolerance 03/22/2015 Cardiovascular No fatigue 03/22/2015 Cardiovascular No near-syncope/dizziness 03/22/2015 Respiratory No chest tightness 03/22/2015 Respiratory No cough Respiratory No dyspnea 0 03/22/2015 Respiratory No pedal edema 03/22/2015 Gastrointestinal No abdominal pain 03/22/2015 Gastrointestinal No constipation 03/22/2015 Gastrointestinal No diarrhea 03/22/2015 Gastrointestinal No gastroesophageal reflu x 03/22/2015 Gastrointestinal No nausea 03/22/2015 Gastrointestinal No vomiting 03/22/2015 Genitourinary/Nephrology No dysuria 03/22/2015 Genitourinary/Nephrology No nocturia 03/22/2015 Genitourinary/Nephrology No urinary incontinence 03/22/2015 Musculoskeletal stiffness 03/22/2015 Musculoskeletal No swelling 03/22/2015 Musculoskeletal back pain 03/22/2015 Musculoskeletal joint complaint 03/22/2015 Musculoskeletal muscle weakness 03/22/2015 Musculoskeletal No myalgias 03/22/2015 Dermatologic No rash Dermatologic No sores Dermatologic No scar Neurologic No dizziness 03/22/2015 Neurologic No headache 0 03/22/2015 Neurologic No neck pain 03/22/2015 Neurologic No syncope Psychiatric No anxiety 0 03/22/2015 Psychiatric No depression 03/22/2015 Constitutional No recent illness 02/15/2015 Constitutional No chills 02/15/2015 Constitutional No fatigue 02/15/2015 Constitutional No fever 02/15/2015 Constitutional No insomnia 02/15/2015 Constitutional No malaise 02/15/2015 Eyes No blindness 2014 Eyes No vision change Ears/Nose/Throat/Neck No dental pain 02/15/2015 Ears/Nose/Throat/Neck No dizziness 02/15/2015 Ears/Nose/Throat/Neck No dysphagia 02/15/2015 Ears/Nose/Throat/Neck No headache 02/15/2015 Ears/Nose/Throat/Neck No hearing loss 02/15/2015 Ears/Nose/Throat/Neck No nasal allergies 02/15/2015 Ears/Nose/Throat/Neck No sore throat 02/15/2015 Ears/Nose/Throat/Neck No postnasal drip 02/15/2015 Ears/Nose/Throat/Neck No sinus congestion 02/15/2015 Cardiovascular No chest pain/pressure 02/15/2015 Cardiovascular No dyspnea 02/15/2015 Cardiovascular No edema 02/15/2015 Cardiovascular No exercise intolerance 02/15/2015 Cardiovascular No fatigue 02/15/2015 Cardiovascular No near-syncope/dizziness 02/15/2015 Respiratory No chest tightness 02/15/2015 Respiratory No cough Respiratory No dyspnea 1 04/18/2014 Respiratory No pedal edema 02/15/2015 Gastrointestinal No abdominal pain 02/15/2015 Gastrointestinal No constipation 02/15/2015 Gastrointestinal No diarrhea 02/15/2015 Gastrointestinal No gastroesophageal reflu x 02/15/2015 Gastrointestinal No nausea 02/15/2015 Gastrointestinal No vomiting 02/15/2015 Genitourinary/Nephrology No dysuria 02/15/2015 Genitourinary/Nephrology No nocturia 02/15/2015 Genitourinary/Nephrology No urinary incontinence 02/15/2015 Musculoskeletal stiffness 02/15/2015 Musculoskeletal No swelling 02/15/2015 Musculoskeletal back pain 02/15/2015 Musculoskeletal joint complaint 02/15/2015 Musculoskeletal muscle weakness 02/15/2015 Musculoskeletal No myalgias 02/15/2015 Dermatologic No rash Dermatologic No sores Dermatologic No scar Neurologic No dizziness 02/15/2015 Neurologic No headache 1 04/18/2014 Neurologic No neck pain 02/15/2015 Neurologic No syncope Psychiatric No anxiety 1 04/18/2014 Psychiatric No depression 02/15/2015 Constitutional No recent illness 11/15/2014 Constitutional No chills 11/15/2014 Constitutional No fatigue 11/15/2014 Constitutional No fever 11/15/2014 Constitutional No insomnia 11/15/2014 Constitutional No malaise 11/15/2014 Eyes No blindness 2014 Eyes No vision change Ears/Nose/Throat/Neck No dental pain 11/15/2014 Ears/Nose/Throat/Neck No dizziness 11/15/2014 Ears/Nose/Throat/Neck No dysphagia 11/15/2014 Ears/Nose/Throat/Neck No headache 11/15/2014 Ears/Nose/Throat/Neck No hearing loss 11/15/2014 Ears/Nose/Throat/Neck No nasal allergies 11/15/2014 Ears/Nose/Throat/Neck No sore throat 11/15/2014 Ears/Nose/Throat/Neck No postnasal drip 11/15/2014 Ears/Nose/Throat/Neck No sinus congestion 11/15/2014 Cardiovascular No chest pain/pressure 11/15/2014 Cardiovascular No dyspnea 11/15/2014 Cardiovascular No edema 11/15/2014 Cardiovascular No exercise intolerance 11/15/2014 Cardiovascular No fatigue 11/15/2014 Cardiovascular No near-syncope/dizziness 11/15/2014 Respiratory No chest tightness 11/15/2014 Respiratory No cough Respiratory No dyspnea 0 11/15/2014 Respiratory No pedal edema 11/15/2014 Gastrointestinal No abdominal pain 11/15/2014 Gastrointestinal No constipation 11/15/2014 Gastrointestinal No diarrhea 11/15/2014 Gastrointestinal No gastroesophageal reflu x 11/15/2014 Gastrointestinal No nausea 11/15/2014 Gastrointestinal No vomiting 11/15/2014 Genitourinary/Nephrology No dysuria 11/15/2014 Genitourinary/Nephrology No nocturia 11/15/2014 Genitourinary/Nephrology No urinary incontinence 11/15/2014 Musculoskeletal stiffness 11/15/2014 Musculoskeletal No swelling 11/15/2014 Musculoskeletal back pain 11/15/2014 Musculoskeletal joint complaint 11/15/2014 Musculoskeletal muscle weakness 11/15/2014 Musculoskeletal myalgias 11/15/2014 Dermatologic No rash Dermatologic No sores Dermatologic No scar Neurologic No dizziness 11/15/2014 Neurologic No headache 0 11/15/2014 Neurologic No neck pain 11/15/2014 Neurologic No syncope Psychiatric No anxiety 0 11/15/2014 Psychiatric No depression 11/15/2014 Constitutional No recent illness 08/13/2014 Constitutional No chills 08/13/2014 Constitutional No fatigue 08/13/2014 Constitutional No fever 08/13/2014 Constitutional No insomnia 08/13/2014 Constitutional No malaise 08/13/2014 Eyes No blindness 2014 Eyes No vision change Ears/Nose/Throat/Neck No dental pain 08/13/2014 Ears/Nose/Throat/Neck No dizziness 08/13/2014 Ears/Nose/Throat/Neck No dysphagia 08/13/2014 Ears/Nose/Throat/Neck No headache 08/13/2014 Ears/Nose/Throat/Neck No hearing loss 08/13/2014 Ears/Nose/Throat/Neck No nasal allergies 08/13/2014 Ears/Nose/Throat/Neck No sore throat 08/13/2014 Ears/Nose/Throat/Neck No postnasal drip 08/13/2014 Ears/Nose/Throat/Neck No sinus congestion 08/13/2014 Cardiovascular No chest pain/pressure 08/13/2014 Cardiovascular No dyspnea 08/13/2014 Cardiovascular No edema 08/13/2014 Cardiovascular No exercise intolerance 08/13/2014 Cardiovascular No fatigue 08/13/2014 Cardiovascular No near-syncope/dizziness 08/13/2014 Respiratory No chest tightness 08/13/2014 Respiratory No cough 02/2015 Respiratory No dyspnea 0 08/13/2014 Respiratory No pedal edema 08/13/2014 Gastrointestinal No abdominal pain 08/13/2014 Gastrointestinal No constipation 08/13/2014 Gastrointestinal No diarrhea 08/13/2014 Gastrointestinal No gastroesophageal reflu x 08/13/2014 Gastrointestinal No nausea 08/13/2014 Gastrointestinal No vomiting 08/13/2014 Genitourinary/Nephrology No dysuria 08/13/2014 Genitourinary/Nephrology No nocturia 08/13/2014 Genitourinary/Nephrology No urinary incontinence 08/13/2014 Musculoskeletal stiffness 08/13/2014 Musculoskeletal No swelling 08/13/2014 Musculoskeletal muscle weakness 08/13/2014 Musculoskeletal No myalgias 08/13/2014 Dermatologic No rash 02/2015 Dermatologic No sores Dermatologic No scar 02/2015 Neurologic No dizziness 08/13/2014 Neurologic No headache 0 08/13/2014 Neurologic No neck pain 08/13/2014 Neurologic No syncope Psychiatric No anxiety 0 08/13/2014 Psychiatric No depression 08/13/2014 Musculoskeletal back pain 08/13/2014 Musculoskeletal joint complaint 08/13/2014 Physical Exam Exam Name System Name It em Name Status Result Effective Dates Notes Full Exam - General 1994 Constitutional general appearance Development: well developed 10/23/2018 None Full Exam - General 1994 Constitutional general appearance Development: appears stated age 0810/23/2018 None Full Exam - General 1994 Constitutional general appearance Hygiene/Attention to Grooming: good hygiene 10/23/2018 None Full Exam - General 1994 Eyes conjunctiva/eyelids Overall: conjunctiva clear 10/23/2018 None Full Exam - General 1994 Eyes conjunctiva/eyelids Overall: cornea clear 10/23/2018 None Full Exam - General 1994 Eyes conjunctiva/eyelids Overall: eyelids normal 10/23/2018 None Full Exam - General 1994 Eyes pupils and irises Overall: pupils equal, round, reactive to light and accomodation 10/23/2018 None Full Exam - General 1994 Ears/Nose/Throat otoscopic exam Overall: external auditory canals clear 10/23/2018 None Full Exam - General 1994 Ears/Nose/Throat otoscopic exam Overall: tympanic membranes clear 10/23/2018 None Full Exam - General 1994 Ears/Nose/Throat lips/teeth/gingiva Overall: benign lips 10/23/2018 None Full Exam - General 1994 Ears/Nose/Throat lips/teeth/gingiva Overall: normal dentition 10/23/2018 None Full Exam - General 1995 Ears/Nose/Throat oral cavity/pharynx/larynx Overall: oral mucosa clear 10/23/2018 None Full Exam - General 1994 Ears/Nose/Throat oral cavity/pharynx/larynx Overall: oropharyngeal mucosa clear 10/23/2018 None Full Exam - General 1995 Ears/Nose/Throat oral cavity/pharynx/larynx Overall: hypopharynx benign 10/23/2018 None Full Exam - General 1994 Ears/Nose/Throat oral cavity/pharynx/larynx Overall: no masses 10/23/2018 None Full Exam - General 1994 Respiratory auscultation Overall: breath sounds clear bilaterally 10/23/2018 None Full Exam - General 1994 Respiratory respiratory effort/rhythm Overall: no retractions 10/23/2018 None Full Exam - General 1994 Respiratory respiratory effort/rhythm Overall: normal rate 10/23/2018 None Full Exam - General 1994 Cardiovascular extremities Overall: no clubbing 10/23/2018 None Full Exam - General 1994 Cardiovascular extremities Edema present: pitting 10/23/2018 trace Full Exam - General 1994 Cardiovascular auscultation of heart Overall: regular rate 10/23/2018 None Full Exam - General 1994 Cardiovascular auscultation of heart Overall: normal heart sounds 10/23/2018 None Full Exam - General 1994 Abdomen abdominal exam Overall: no tenderness 10/23/2018 None Full Exam - General 1994 Abdomen abdominal exam Overall: normal bowel sounds 10/23/2018 None Full Exam - General 1994 Musculoskeletal digits and nails Deformities/Nodules: trigger finger/tendon nodule 10/23/2018 trigger finger 3rd finger right hand Full Exam - General 1994 Integument inspection of skin Location: right leg 10/23/2018 kris thorn removed from w ound on leg today. Full Exam - General 1994 Neurologic cranial nerves Overall: crainial nerves 2 - 12 grossly intact 10/23/2018 None Full Exam - General 1994 Psychiatric orientation/consciousness Overall: oriented to person, place and time 10/23/2018 None Full Exam - General 1994 Psychiatric mood and affect Overall: normal mood and affect 10/23/2018 None Full Exam - General 1994 Constitutional general appearance Development: well developed 08/28/2018 None Full Exam - General 1994 Constitutional general appearance Development: appears stated age 0608/28/2018 None Full Exam - General 1994 Constitutional general appearance Hygiene/Attention to Grooming: good hygiene 08/28/2018 None Full Exam - General 1994 Eyes conjunctiva/eyelids Overall: conjunctiva clear 08/28/2018 None Full Exam - General 1994 Eyes conjunctiva/eyelids Overall: cornea clear 08/28/2018 None Full Exam - General 1994 Eyes conjunctiva/eyelids Overall: eyelids normal 08/28/2018 None Full Exam - General 1994 Eyes pupils and irises Overall: pupils equal, round, reactive to light and accomodation 08/28/2018 None Full Exam - General 1994 Ears/Nose/Throat otoscopic exam Overall: external auditory canals clear 08/28/2018 None Full Exam - General 1994 Ears/Nose/Throat otoscopic exam Overall: tympanic membranes clear 08/28/2018 None Full Exam - General 1994 Ears/Nose/Throat lips/teeth/gingiva Overall: benign lips 08/28/2018 None Full Exam - General 1995 Ears/Nose/Throat lips/teeth/gingiva Overall: normal dentition 08/28/2018 None Full Exam - General 1994 Ears/Nose/Throat oral cavity/pharynx/larynx Overall: oral mucosa clear 08/28/2018 None Full Exam - General 1994 Ears/Nose/Throat oral cavity/pharynx/larynx Overall: oropharyngeal mucosa clear 08/28/2018 None Full Exam - General 1994 Ears/Nose/Throat oral cavity/pharynx/larynx Overall: hypopharynx benign 08/28/2018 None Full Exam - General 1994 Ears/Nose/Throat oral cavity/pharynx/larynx Overall: no masses 08/28/2018 None Full Exam - General 1994 Respiratory auscultation Overall: breath sounds clear bilaterally 08/28/2018 None Full Exam - General 1994 Respiratory respiratory effort/rhythm Overall: no retractions 08/28/2018 None Full Exam - General 1994 Respiratory respiratory effort/rhythm Overall: normal rate 08/28/2018 None Full Exam - General 1994 Cardiovascular extremities Overall: no clubbing 08/28/2018 None Full Exam - General 1994 Cardiovascular extremities Edema present: pitting 08/28/2018 trace Full Exam - General 1994 Cardiovascular auscultation of heart Overall: regular rate 08/28/2018 None Full Exam - General 1994 Cardiovascular auscultation of heart Overall: normal heart sounds 08/28/2018 None Full Exam - General 1994 Abdomen abdominal exam Overall: no tenderness 08/28/2018 None Full Exam - General 1994 Abdomen abdominal exam Overall: normal bowel sounds 08/28/2018 None Full Exam - General 1994 Musculoskeletal digits and nails Deformities/Nodules: trigger finger/tendon nodule 08/28/2018 trigger finger 3rd finger right hand Full Exam - General 1994 Neurologic cranial nerves Overall: crainial nerves 2 - 12 grossly intact 08/28/2018 None Full Exam - General 1994 Psychiatric orientation/consciousness Overall: oriented to person, place and time 08/28/2018 None Full Exam - General 1994 Psychiatric mood and affect Overall: normal mood and affect 08/28/2018 None Full Exam - General 1994 Integument inspection of skin Location: right leg 08/28/2018 kris thorn removed from w [facility] on leg today. Full Exam - General 1994 Constitutional general appearance Development: well developed 04/28/2018 None Full Exam - General 1994 Constitutional general appearance Development: appears stated age 0204/28/2018 None Full Exam - General 1994 Constitutional general appearance Hygiene/Attention to Grooming: good hygiene 04/28/2018 None Full Exam - General 1994 Eyes conjunctiva/eyelids Overall: conjunctiva clear 04/28/2018 None Full Exam - General 1994 Eyes conjunctiva/eyelids Overall: cornea clear 04/28/2018 None Full Exam - General 1994 Eyes conjunctiva/eyelids Overall: eyelids normal 04/28/2018 None Full Exam - General 1994 Eyes pupils and irises Overall: pupils equal, round, reactive to light and accomodation 04/28/2018 None Full Exam - General 1994 Ears/Nose/Throat otoscopic exam Overall: external auditory canals clear 04/28/2018 None Full Exam - General 1994 Ears/Nose/Throat otoscopic exam Overall: tympanic membranes clear 04/28/2018 None Full Exam - General 1994 Ears/Nose/Throat lips/teeth/gingiva Overall: benign lips 04/28/2018 None Full Exam - General 1994 Ears/Nose/Throat lips/teeth/gingiva Overall: normal dentition 04/28/2018 None Full Exam - General 1994 Ears/Nose/Throat oral cavity/pharynx/larynx Overall: oral mucosa clear 04/28/2018 None Full Exam - General 1994 Ears/Nose/Throat oral cavity/pharynx/larynx Overall: oropharyngeal mucosa clear 04/28/2018 None Full Exam - General 1994 Ears/Nose/Throat oral cavity/pharynx/larynx Overall: hypopharynx benign 04/28/2018 None Full Exam - General 1994 Ears/Nose/Throat oral cavity/pharynx/larynx Overall: no masses 04/28/2018 None Full Exam - General 1994 Respiratory auscultation Overall: breath sounds clear bilaterally 04/28/2018 None Full Exam - General 1994 Respiratory respiratory effort/rhythm Overall: no retractions 04/28/2018 None Full Exam - General 1994 Respiratory respiratory effort/rhythm Overall: normal rate 04/28/2018 None Full Exam - General 1994 Cardiovascular extremities Overall: no clubbing 04/28/2018 None Full Exam - General 1994 Cardiovascular extremities Edema present: pitting 04/28/2018 trace Full Exam - General 1994 Cardiovascular auscultation of heart Overall: regular rate 04/28/2018 None Full Exam - General 1994 Cardiovascular auscultation of heart Overall: normal heart sounds 04/28/2018 None Full Exam - General 1994 Abdomen abdominal exam Overall: no tenderness 04/28/2018 None Full Exam - General 1994 Abdomen abdominal exam Overall: normal bowel sounds 04/28/2018 None Full Exam - General 1994 Neurologic cranial nerves Overall: crainial nerves 2 - 12 grossly intact 04/28/2018 None Full Exam - General 1994 Psychiatric orientation/consciousness Overall: oriented to person, place and time 04/28/2018 None Full Exam - General 1994 Psychiatric mood and affect Overall: normal mood and affect 04/28/2018 None Full Exam - General 1994 Musculoskeletal digits and nails Deformities/Nodules: trigger finger/tendon nodule 04/28/2018 trigger finger 3rd finger right hand Full Exam - General 1994 Constitutional general appearance Development: well developed 12/25/2017 None Full Exam - General 1994 Constitutional general appearance Development: appears stated age 1012/25/2017 None Full Exam - General 1994 Constitutional general appearance Hygiene/Attention to Grooming: good hygiene 12/25/2017 None Full Exam - General 1994 Eyes conjunctiva/eyelids Overall: conjunctiva clear 12/25/2017 None Full Exam - General 1994 Eyes conjunctiva/eyelids Overall: cornea clear 12/25/2017 None Full Exam - General 1994 Eyes conjunctiva/eyelids Overall: eyelids normal 12/25/2017 None Full Exam - General 1994 Eyes pupils and irises Overall: pupils equal, round, reactive to light and accomodation 12/25/2017 None Full Exam - General 1994 Ears/Nose/Throat otoscopic exam Overall: external auditory canals clear 12/25/2017 None Full Exam - General 1994 Ears/Nose/Throat otoscopic exam Overall: tympanic membranes clear 12/25/2017 None Full Exam - General 1994 Ears/Nose/Throat lips/teeth/gingiva Overall: benign lips 12/25/2017 None Full Exam - General 1994 Ears/Nose/Throat lips/teeth/gingiva Overall: normal dentition 12/25/2017 None Full Exam - General 1994 Ears/Nose/Throat oral cavity/pharynx/larynx Overall: oral mucosa clear 12/25/2017 None Full Exam - General 1994 Ears/Nose/Throat oral cavity/pharynx/larynx Overall: oropharyngeal mucosa clear 12/25/2017 None Full Exam - General 1994 Ears/Nose/Throat oral cavity/pharynx/larynx Overall: hypopharynx benign 12/25/2017 None Full Exam - General 1994 Ears/Nose/Throat oral cavity/pharynx/larynx Overall: no masses 12/25/2017 None Full Exam - General 1994 Respiratory auscultation Overall: breath sounds clear bilaterally 12/25/2017 None Full Exam - General 1994 Respiratory respiratory effort/rhythm Overall: no retractions 12/25/2017 None Full Exam - General 1994 Respiratory respiratory effort/rhythm Overall: normal rate 12/25/2017 None Full Exam - General 1994 Cardiovascular extremities Overall: no clubbing 12/25/2017 None Full Exam - General 1994 Cardiovascular auscultation of heart Overall: regular rate 12/25/2017 None Full Exam - General 1994 Cardiovascular auscultation of heart Overall: normal heart sounds 12/25/2017 None Full Exam - General 1994 Abdomen abdominal exam Overall: no tenderness 12/25/2017 None Full Exam - General 1994 Abdomen abdominal exam Overall: normal bowel sounds 12/25/2017 None Full Exam - General 1994 Lymphatic neck nodes Overall: anterior cervical chain benign 12/25/2017 None Full Exam - General 1994 Lymphatic neck nodes Overall: posterior cervical chain benign 12/25/2017 None Full Exam - General 1994 Integument inspection of skin Location: face 12/25/2017 left upper lip - cold sor e Full Exam - General 1994 Integument inspection of skin Location: right arm 12/25/2017 forearm - skin tear cover ed by duoderm Full Exam - General 1994 Neurologic deep tendon reflexes Overall: deep tendon reflexes intact 12/25/2017 None Full Exam - General 1994 Neurologic cranial nerves Overall: crainial nerves 2 - 12 grossly intact 12/25/2017 None Full Exam - General 1994 Psychiatric orientation/consciousness Overall: oriented to person, place and time 12/25/2017 None Full Exam - General 1994 Psychiatric mood and affect Overall: normal mood and affect 12/25/2017 None Full Exam - General 1994 Cardiovascular extremities Edema present: pitting 12/25/2017 trace Full Exam - General 1994 Constitutional general appearance Development: well developed 11/22/2017 None Full Exam - General 1994 Constitutional general appearance Development: appears stated age 0911/22/2017 None Full Exam - General 1994 Constitutional general appearance Hygiene/Attention to Grooming: good hygiene 11/22/2017 None Full Exam - General 1994 Eyes conjunctiva/eyelids Overall: conjunctiva clear 11/22/2017 None Full Exam - General 1994 Eyes conjunctiva/eyelids Overall: cornea clear 11/22/2017 None Full Exam - General 1994 Eyes conjunctiva/eyelids Overall: eyelids normal 11/22/2017 None Full Exam - General 1994 Eyes pupils and irises Overall: pupils equal, round, reactive to light and accomodation 11/22/2017 None Full Exam - General 1994 Ears/Nose/Throat otoscopic exam Overall: external auditory canals clear 11/22/2017 None Full Exam - General 1994 Ears/Nose/Throat otoscopic exam Overall: tympanic membranes clear 11/22/2017 None Full Exam - General 1994 Ears/Nose/Throat lips/teeth/gingiva Overall: benign lips 11/22/2017 None Full Exam - General 1994 Ears/Nose/Throat lips/teeth/gingiva Overall: normal dentition 11/22/2017 None Full Exam - General 1994 Ears/Nose/Throat oral cavity/pharynx/larynx Overall: oral mucosa clear 11/22/2017 None Full Exam - General 1994 Ears/Nose/Throat oral cavity/pharynx/larynx Overall: oropharyngeal mucosa clear 11/22/2017 None Full Exam - General 1994 Ears/Nose/Throat oral cavity/pharynx/larynx Overall: hypopharynx benign 11/22/2017 None Full Exam - General 1994 Ears/Nose/Throat oral cavity/pharynx/larynx Overall: no masses 11/22/2017 None Full Exam - General 1994 Respiratory auscultation Overall: breath sounds clear bilaterally 11/22/2017 None Full Exam - General 1994 Respiratory respiratory effort/rhythm Overall: no retractions 11/22/2017 None Full Exam - General 1994 Respiratory respiratory effort/rhythm Overall: normal rate 11/22/2017 None Full Exam - General 1994 Cardiovascular extremities Overall: no clubbing 11/22/2017 None Full Exam - General 1994 Cardiovascular auscultation of heart Overall: regular rate 11/22/2017 None Full Exam - General 1994 Cardiovascular auscultation of heart Overall: normal heart sounds 11/22/2017 None Full Exam - General 1994 Abdomen abdominal exam Overall: normal bowel sounds 11/22/2017 None Full Exam - General 1994 Lymphatic neck nodes Overall: anterior cervical chain benign 11/22/2017 None Full Exam - General 1994 Lymphatic neck nodes Overall: posterior cervical chain benign 11/22/2017 None Full Exam - General 1994 Neurologic deep tendon reflexes Overall: deep tendon reflexes intact 11/22/2017 None Full Exam - General 1994 Neurologic cranial nerves Overall: crainial nerves 2 - 12 grossly intact 11/22/2017 None Full Exam - General 1994 Psychiatric orientation/consciousness Overall: oriented to person, place and time 11/22/2017 None Full Exam - General 1994 Psychiatric mood and affect Overall: normal mood and affect 11/22/2017 None Full Exam - General 1994 Abdomen abdominal exam Lower quadrant: tender to palpation 11/22/2017 None Full Exam - General 1994 Constitutional general appearance Development: well developed 10/07/2017 None Full Exam - General 1994 Constitutional general appearance Development: appears stated age 0810/07/2017 None Full Exam - General 1994 Constitutional general appearance Hygiene/Attention to Grooming: good hygiene 10/07/2017 None Full Exam - General 1994 Eyes conjunctiva/eyelids Overall: conjunctiva clear 10/07/2017 None Full Exam - General 1994 Eyes conjunctiva/eyelids Overall: cornea clear 10/07/2017 None Full Exam - General 1994 Eyes conjunctiva/eyelids Overall: eyelids normal 10/07/2017 None Full Exam - General 1994 Eyes pupils and irises Overall: pupils equal, round, reactive to light and accomodation 10/07/2017 None Full Exam - General 1994 Ears/Nose/Throat otoscopic exam Overall: external auditory canals clear 10/07/2017 None Full Exam - General 1994 Ears/Nose/Throat otoscopic exam Overall: tympanic membranes clear 10/07/2017 None Full Exam - General 1994 Ears/Nose/Throat lips/teeth/gingiva Overall: benign lips 10/07/2017 None Full Exam - General 1994 Ears/Nose/Throat lips/teeth/gingiva Overall: normal dentition 10/07/2017 None Full Exam - General 1994 Ears/Nose/Throat oral cavity/pharynx/larynx Overall: oral mucosa clear 10/07/2017 None Full Exam - General 1995 Ears/Nose/Throat oral cavity/pharynx/larynx Overall: oropharyngeal mucosa clear 10/07/2017 None Full Exam - General 1994 Ears/Nose/Throat oral cavity/pharynx/larynx Overall: hypopharynx benign 10/07/2017 None Full Exam - General 1994 Ears/Nose/Throat oral cavity/pharynx/larynx Overall: no masses 10/07/2017 None Full Exam - General 1994 Respiratory auscultation Overall: breath sounds clear bilaterally 10/07/2017 None Full Exam - General 1994 Respiratory respiratory effort/rhythm Overall: no retractions 10/07/2017 None Full Exam - General 1994 Respiratory respiratory effort/rhythm Overall: normal rate 10/07/2017 None Full Exam - General 1994 Cardiovascular extremities Overall: no clubbing 10/07/2017 None Full Exam - General 1994 Cardiovascular auscultation of heart Overall: regular rate 10/07/2017 None Full Exam - General 1994 Cardiovascular auscultation of heart Overall: normal heart sounds 10/07/2017 None Full Exam - General 1994 Abdomen abdominal exam Overall: no tenderness 10/07/2017 None Full Exam - General 1994 Abdomen abdominal exam Overall: normal bowel sounds 10/07/2017 None Full Exam - General 1994 Lymphatic neck nodes Overall: anterior cervical chain benign 10/07/2017 None Full Exam - General 1994 Lymphatic neck nodes Overall: posterior cervical chain benign 10/07/2017 None Full Exam - General 1994 Neurologic deep tendon reflexes Overall: deep tendon reflexes intact 10/07/2017 None Full Exam - General 1994 Neurologic cranial nerves Overall: crainial nerves 2 - 12 grossly intact 10/07/2017 None Full Exam - General 1994 Psychiatric orientation/consciousness Overall: oriented to person, place and time 10/07/2017 None Full Exam - General 1994 Psychiatric mood and affect Overall: normal mood and affect 10/07/2017 None Full Exam - General 1994 Integument inspection of skin Location: face 10/07/2017 left upper lip - cold sor e Full Exam - General 1994 Integument inspection of skin Location: right arm 10/07/2017 forearm - skin tear cover ed by duoderm Full Exam - General 1994 Constitutional general appearance Overall: well developed 09/16/2017 None Full Exam - General 1994 Constitutional general appearance Overall: in no acute distress 09/16/2017 None Full Exam - General 1994 Constitutional general appearance Overall: well nourished 09/16/2017 None Full Exam - General 1994 Eyes conjunctiva/eyelids Overall: conjunctiva clear 09/16/2017 None Full Exam - General 1994 Eyes conjunctiva/eyelids Overall: cornea clear 09/16/2017 None Full Exam - General 1994 Eyes conjunctiva/eyelids Overall: eyelids normal 09/16/2017 None Full Exam - General 1994 Ears/Nose/Throat lips/teeth/gingiva Overall: benign lips 09/16/2017 None Full Exam - General 1994 Ears/Nose/Throat oral cavity/pharynx/larynx Overall: oral mucosa clear 09/16/2017 None Full Exam - General 1994 Respiratory auscultation Overall: breath sounds clear bilaterally 09/16/2017 None Full Exam - General 1994 Respiratory respiratory effort/rhythm Overall: no retractions 09/16/2017 None Full Exam - General 1994 Respiratory respiratory effort/rhythm Overall: normal rate 09/16/2017 None Full Exam - General 1994 Cardiovascular auscultation of heart Rate: regular rate 09/16/2017 None Full Exam - General 1994 Musculoskeletal head and neck Overall: head atraumatic 09/16/2017 None Full Exam - General 1994 Neurologic cranial nerves Overall: crainial nerves 2 - 12 grossly intact 09/16/2017 None Full Exam - General 1994 Psychiatric orientation/consciousness Overall: oriented to person, place and time 09/16/2017 None Full Exam - General 1994 Psychiatric mood and affect Overall: normal mood and affect 09/16/2017 None Full Exam - General 1994 Constitutional general appearance Development: well developed 09/09/2017 None Full Exam - General 1994 Constitutional general appearance Development: appears stated age 0709/09/2017 None Full Exam - General 1994 Constitutional general appearance Hygiene/Attention to Grooming: good hygiene 09/09/2017 None Full Exam - General 1994 Eyes conjunctiva/eyelids Overall: conjunctiva clear 09/09/2017 None Full Exam - General 1994 Eyes conjunctiva/eyelids Overall: cornea clear 09/09/2017 None Full Exam - General 1994 Eyes conjunctiva/eyelids Overall: eyelids normal 09/09/2017 None Full Exam - General 1994 Eyes pupils and irises Overall: pupils equal, round, reactive to light and accomodation 09/09/2017 None Full Exam - General 1994 Ears/Nose/Throat otoscopic exam Overall: external auditory canals clear 09/09/2017 None Full Exam - General 1994 Ears/Nose/Throat otoscopic exam Overall: tympanic membranes clear 09/09/2017 None Full Exam - General 1995 Ears/Nose/Throat lips/teeth/gingiva Overall: benign lips 09/09/2017 None Full Exam - General 1994 Ears/Nose/Throat lips/teeth/gingiva Overall: normal dentition 09/09/2017 None Full Exam - General 1994 Ears/Nose/Throat oral cavity/pharynx/larynx Overall: oral mucosa clear 09/09/2017 None Full Exam - General 1995 Ears/Nose/Throat oral cavity/pharynx/larynx Overall: oropharyngeal mucosa clear 09/09/2017 None Full Exam - General 1994 Ears/Nose/Throat oral cavity/pharynx/larynx Overall: hypopharynx benign 09/09/2017 None Full Exam - General 1994 Ears/Nose/Throat oral cavity/pharynx/larynx Overall: no masses 09/09/2017 None Full Exam - General 1994 Respiratory auscultation Overall: breath sounds clear bilaterally 09/09/2017 None Full Exam - General 1994 Respiratory respiratory effort/rhythm Overall: no retractions 09/09/2017 None Full Exam - General 1994 Respiratory respiratory effort/rhythm Overall: normal rate 09/09/2017 None Full Exam - General 1994 Cardiovascular extremities Overall: no clubbing 09/09/2017 None Full Exam - General 1994 Cardiovascular auscultation of heart Overall: regular rate 09/09/2017 None Full Exam - General 1994 Cardiovascular auscultation of heart Overall: normal heart sounds 09/09/2017 None Full Exam - General 1994 Abdomen abdominal exam Overall: no tenderness 09/09/2017 None Full Exam - General 1994 Abdomen abdominal exam Overall: normal bowel sounds 09/09/2017 None Full Exam - General 1994 Lymphatic neck nodes Overall: anterior cervical chain benign 09/09/2017 None Full Exam - General 1994 Lymphatic neck nodes Overall: posterior cervical chain benign 09/09/2017 None Full Exam - General 1994 Integument inspection of skin Overall: few scattered moles, no gross abnormalities 09/09/2017 None Full Exam - General 1994 Neurologic deep tendon reflexes Overall: deep tendon reflexes intact 09/09/2017 None Full Exam - General 1994 Neurologic cranial nerves Overall: crainial nerves 2 - 12 grossly intact 09/09/2017 None Full Exam - General 1994 Psychiatric orientation/consciousness Overall: oriented to person, place and time 09/09/2017 None Full Exam - General 1994 Psychiatric mood and affect Overall: normal mood and affect 09/09/2017 None Full Exam - General 1994 Constitutional general appearance Development: well developed 07/16/2017 None Full Exam - General 1994 Constitutional general appearance Development: appears stated age 0507/16/2017 None Full Exam - General 1994 Constitutional general appearance Hygiene/Attention to Grooming: good hygiene 07/16/2017 None Full Exam - General 1994 Eyes conjunctiva/eyelids Overall: conjunctiva clear 07/16/2017 None Full Exam - General 1994 Eyes conjunctiva/eyelids Overall: cornea clear 07/16/2017 None Full Exam - General 1994 Eyes conjunctiva/eyelids Overall: eyelids normal 07/16/2017 None Full Exam - General 1994 Eyes pupils and irises Overall: pupils equal, round, reactive to light and accomodation 07/16/2017 None Full Exam - General 1994 Ears/Nose/Throat otoscopic exam Overall: external auditory canals clear 07/16/2017 None Full Exam - General 1994 Ears/Nose/Throat otoscopic exam Overall: tympanic membranes clear 07/16/2017 None Full Exam - General 1994 Ears/Nose/Throat lips/teeth/gingiva Overall: benign lips 07/16/2017 None Full Exam - General 1994 Ears/Nose/Throat lips/teeth/gingiva Overall: normal dentition 07/16/2017 None Full Exam - General 1994 Ears/Nose/Throat oral cavity/pharynx/larynx Overall: oral mucosa clear 07/16/2017 None Full Exam - General 1994 Ears/Nose/Throat oral cavity/pharynx/larynx Overall: oropharyngeal mucosa clear 07/16/2017 None Full Exam - General 1994 Ears/Nose/Throat oral cavity/pharynx/larynx Overall: hypopharynx benign 07/16/2017 None Full Exam - General 1994 Ears/Nose/Throat oral cavity/pharynx/larynx Overall: no masses 07/16/2017 None Full Exam - General 1994 Respiratory auscultation Overall: breath sounds clear bilaterally 07/16/2017 None Full Exam - General 1994 Respiratory respiratory effort/rhythm Overall: no retractions 07/16/2017 None Full Exam - General 1994 Respiratory respiratory effort/rhythm Overall: normal rate 07/16/2017 None Full Exam - General 1994 Cardiovascular extremities Overall: no clubbing 07/16/2017 None Full Exam - General 1994 Cardiovascular auscultation of heart Overall: regular rate 07/16/2017 None Full Exam - General 1994 Cardiovascular auscultation of heart Overall: normal heart sounds 07/16/2017 None Full Exam - General 1994 Abdomen abdominal exam Overall: no tenderness 07/16/2017 None Full Exam - General 1994 Abdomen abdominal exam Overall: normal bowel sounds 07/16/2017 None Full Exam - General 1994 Lymphatic neck nodes Overall: anterior cervical chain benign 07/16/2017 None Full Exam - General 1994 Lymphatic neck nodes Overall: posterior cervical chain benign 07/16/2017 None Full Exam - General 1994 Integument inspection of skin Overall: few scattered moles, no gross abnormalities 07/16/2017 None Full Exam - General 1994 Neurologic deep tendon reflexes Overall: deep tendon reflexes intact 07/16/2017 None Full Exam - General 1994 Neurologic cranial nerves Overall: crainial nerves 2 - 12 grossly intact 07/16/2017 None Full Exam - General 1994 Psychiatric orientation/consciousness Overall: oriented to person, place and time 07/16/2017 None Full Exam - General 1994 Psychiatric mood and affect Overall: normal mood and affect 07/16/2017 None Full Exam - ENT Constitutional general appearance Overall: well nourished 06/14/2017 None Full Exam - ENT Constitutional general appearance Overall: well developed 06/14/2017 None Full Exam - ENT Constitutional general appearance Overall: in no acute distress 06/14/2017 None Full Exam - ENT Neurologic orientation Overall: oriented to person, place a nd time 06/14/2017 None Full Exam - ENT Integument inspection of skin Overall: no rash, lesions 06/14/2017 None Full Exam - ENT Lymphatic palpation of lymph nodes Overall: shotty lymphadenopathy 06/14/2017 None Full Exam - ENT Cardiovascular auscultation of heart Overall: regular rate 06/14/2017 None Full Exam - ENT Cardiovascular auscultation of heart Overall: normal heart sounds 06/14/2017 None Full Exam - ENT Respiratory auscultation Overall: breath sounds clear bilater ally 06/14/2017 None Full Exam - ENT Respiratory inspection Overall: no retractions 06/14/2017 None Full Exam - ENT Respiratory inspection Overall: normal rate None Full Exam - ENT Face and Head palpation Left maxillary sinus: tender 06/14/2017 None Full Exam - ENT Face and Head palpation Right maxillary sinus: tender 06/14/2017 None Full Exam - ENT Ears/Nose/Throat otoscopic exam Overall: external auditory canals normal 06/14/2017 None Full Exam - ENT Ears/Nose/Throat otoscopic exam Left tympanic membrane: erythematous 06/14/2017 None Full Exam - ENT Ears/Nose/Throat otoscopic exam Right tympanic membrane: erythematou s 06/14/2017 None Full Exam - ENT Ears/Nose/Throat oropharynx Overall: oral mucosa clear 06/14/2017 None Full Exam - General 1994 Constitutional general appearance Development: well developed 06/10/2017 None Full Exam - General 1994 Constitutional general appearance Development: appears stated age 0406/10/2017 None Full Exam - General 1994 Constitutional general appearance Hygiene/Attention to Grooming: good hygiene 06/10/2017 None Full Exam - General 1994 Eyes conjunctiva/eyelids Overall: conjunctiva clear 06/10/2017 None Full Exam - General 1994 Eyes conjunctiva/eyelids Overall: cornea clear 06/10/2017 None Full Exam - General 1994 Eyes conjunctiva/eyelids Overall: eyelids normal 06/10/2017 None Full Exam - General 1994 Eyes pupils and irises Overall: pupils equal, round, reactive to light and accomodation 06/10/2017 None Full Exam - General 1994 Ears/Nose/Throat otoscopic exam Overall: external auditory canals clear 06/10/2017 None Full Exam - General 1994 Ears/Nose/Throat otoscopic exam Overall: tympanic membranes clear 06/10/2017 None Full Exam - General 1994 Ears/Nose/Throat lips/teeth/gingiva Overall: benign lips 06/10/2017 None Full Exam - General 1994 Ears/Nose/Throat lips/teeth/gingiva Overall: normal dentition 06/10/2017 None Full Exam - General 1994 Ears/Nose/Throat oral cavity/pharynx/larynx Overall: oral mucosa clear 06/10/2017 None Full Exam - General 1994 Ears/Nose/Throat oral cavity/pharynx/larynx Overall: oropharyngeal mucosa clear 06/10/2017 None Full Exam - General 1994 Ears/Nose/Throat oral cavity/pharynx/larynx Overall: hypopharynx benign 06/10/2017 None Full Exam - General 1994 Ears/Nose/Throat oral cavity/pharynx/larynx Overall: no masses 06/10/2017 None Full Exam - General 1994 Respiratory auscultation Overall: breath sounds clear bilaterally 06/10/2017 None Full Exam - General 1994 Respiratory respiratory effort/rhythm Overall: no retractions 06/10/2017 None Full Exam - General 1994 Respiratory respiratory effort/rhythm Overall: normal rate 06/10/2017 None Full Exam - General 1994 Cardiovascular extremities Overall: no clubbing 06/10/2017 None Full Exam - General 1994 Cardiovascular auscultation of heart Overall: regular rate 06/10/2017 None Full Exam - General 1994 Cardiovascular auscultation of heart Overall: normal heart sounds 06/10/2017 None Full Exam - General 1994 Abdomen abdominal exam Overall: no tenderness 06/10/2017 None Full Exam - General 1994 Abdomen abdominal exam Overall: normal bowel sounds 06/10/2017 None Full Exam - General 1994 Lymphatic neck nodes Overall: anterior cervical chain benign 06/10/2017 None Full Exam - General 1994 Lymphatic neck nodes Overall: posterior cervical chain benign 06/10/2017 None Full Exam - General 1994 Neurologic deep tendon reflexes Overall: deep tendon reflexes intact 06/10/2017 None Full Exam - General 1994 Neurologic cranial nerves Overall: crainial nerves 2 - 12 grossly intact 06/10/2017 None Full Exam - General 1994 Psychiatric orientation/consciousness Overall: oriented to person, place and time 06/10/2017 None Full Exam - General 1994 Psychiatric mood and affect Overall: normal mood and affect 06/10/2017 None Full Exam - General 1994 Constitutional general appearance Development: well developed 05/13/2017 None Full Exam - General 1994 Constitutional general appearance Development: appears stated age 0305/13/2017 None Full Exam - General 1994 Constitutional general appearance Hygiene/Attention to Grooming: good hygiene 05/13/2017 None Full Exam - General 1994 Eyes conjunctiva/eyelids Overall: conjunctiva clear 05/13/2017 None Full Exam - General 1994 Eyes conjunctiva/eyelids Overall: cornea clear 05/13/2017 None Full Exam - General 1994 Eyes conjunctiva/eyelids Overall: eyelids normal 05/13/2017 None Full Exam - General 1994 Eyes pupils and irises Overall: pupils equal, round, reactive to light and accomodation 05/13/2017 None Full Exam - General 1994 Ears/Nose/Throat otoscopic exam Overall: external auditory canals clear 05/13/2017 None Full Exam - General 1994 Ears/Nose/Throat otoscopic exam Overall: tympanic membranes clear 05/13/2017 None Full Exam - General 1994 Ears/Nose/Throat lips/teeth/gingiva Overall: benign lips 05/13/2017 None Full Exam - General 1994 Ears/Nose/Throat lips/teeth/gingiva Overall: normal dentition 05/13/2017 None Full Exam - General 1994 Ears/Nose/Throat oral cavity/pharynx/larynx Overall: oral mucosa clear 05/13/2017 None Full Exam - General 1994 Ears/Nose/Throat oral cavity/pharynx/larynx Overall: oropharyngeal mucosa clear 05/13/2017 None Full Exam - General 1994 Ears/Nose/Throat oral cavity/pharynx/larynx Overall: hypopharynx benign 05/13/2017 None Full Exam - General 1994 Ears/Nose/Throat oral cavity/pharynx/larynx Overall: no masses 05/13/2017 None Full Exam - General 1994 Respiratory auscultation Overall: breath sounds clear bilaterally 05/13/2017 None Full Exam - General 1994 Respiratory respiratory effort/rhythm Overall: no retractions 05/13/2017 None Full Exam - General 1994 Respiratory respiratory effort/rhythm Overall: normal rate 05/13/2017 None Full Exam - General 1994 Cardiovascular extremities Overall: no clubbing 05/13/2017 None Full Exam - General 1994 Cardiovascular auscultation of heart Overall: regular rate 05/13/2017 None Full Exam - General 1994 Cardiovascular auscultation of heart Overall: normal heart sounds 05/13/2017 None Full Exam - General 1994 Abdomen abdominal exam Overall: no tenderness 05/13/2017 None Full Exam - General 1994 Abdomen abdominal exam Overall: normal bowel sounds 05/13/2017 None Full Exam - General 1994 Lymphatic neck nodes Overall: anterior cervical chain benign 05/13/2017 None Full Exam - General 1994 Lymphatic neck nodes Overall: posterior cervical chain benign 05/13/2017 None Full Exam - General 1994 Neurologic deep tendon reflexes Overall: deep tendon reflexes intact 05/13/2017 None Full Exam - General 1994 Neurologic cranial nerves Overall: crainial nerves 2 - 12 grossly intact 05/13/2017 None Full Exam - General 1994 Psychiatric orientation/consciousness Overall: oriented to person, place and time 05/13/2017 None Full Exam - General 1994 Psychiatric mood and affect Overall: normal mood and affect 05/13/2017 None Full Exam - Orthopedics Constitutional general appearance Overall: well nourished 03/26/2017 None Full Exam - Orthopedics Constitutional general appearance Overall: well developed 03/26/2017 None Full Exam - Orthopedics Constitutional general appearance Overall: in no acute distress 03/26/2017 None Full Exam - Orthopedics Eyes conjunctiva/eyelids Overall: conjunctiva clear 03/26/2017 None Full Exam - Orthopedics Eyes conjunctiva/eyelids Overall: eyelids normal 03/26/2017 None Full Exam [...] 03/26/2017 None Full Exam - Orthopedics MS: spine/ri b/pelvis insp & palp - S/R/P Sacroiliac palpation: [...] None Full Exam - General 1994 Eyes conjunctiva/eyelids Overall: conjunctiva clear 02/19/2017 None Full Exam - General 1994 Eyes conjunctiva/eyelids Overall: cornea clear 02/19/2017 None Full Exam - General 1994 Eyes conjunctiva/eyelids Overall: eyelids normal 02/19/2017 None Full Exam [...] None Full Exam - General 1994 Eyes conjunctiva/eyelids Overall: conjunctiva clear 01/16/2017 None Full Exam - General 1994 Eyes conjunctiva/eyelids Overall: cornea clear 01/16/2017 None Full Exam - General 1994 Eyes conjunctiva/eyelids Overall: eyelids normal 01/16/2017 None Full Exam [...] None Full Exam - General 1994 Eyes conjunctiva/eyelids Overall: conjunctiva clear 01/08/2017 None Full Exam - General 1994 Eyes conjunctiva/eyelids Overall: cornea clear 01/08/2017 None Full Exam - General 1994 Eyes conjunctiva/eyelids Overall: eyelids normal 01/08/2017 None Full Exam [...] None Full Exam - General 1994 Eyes conjunctiva/eyelids Overall: conjunctiva clear 11/21/2016 None Full Exam - General 1994 Eyes conjunctiva/eyelids Overall: cornea clear 11/21/2016 None Full Exam - General 1994 Eyes conjunctiva/eyelids Overall: eyelids normal 11/21/2016 None Full Exam [...] None Full Exam - General 1994 Eyes conjunctiva/eyelids Overall: conjunctiva clear 10/16/2016 None Full Exam - General 1994 Eyes conjunctiva/eyelids Overall: cornea clear 10/16/2016 None Full Exam - General 1994 Eyes conjunctiva/eyelids Overall: eyelids normal 10/16/2016 None Full Exam [...] ENT Ears/Nose/Throat otoscopic exam Left tympanic membrane: air-fluid le viktor 10/08/2016 None Full Exam - ENT Ears/Nose/Throat otoscopic exam Right tympanic membrane: air-fluid level 10/08/2016 None Full Exam - ENT Ears/Nose/Throat lips/teeth/gingiva Overall: benign lips 10/08/2016 None Full Exam [...] ENT Respiratory auscultation Overall: breath sounds clear bilater ally 10/08/2016 None Full Exam - ENT Cardiovascular [...] Neurologic orientation Overall: oriented to person, place a nd time 10/08/2016 None Full Exam - ENT [...] ENT Ears/Nose/Throat otoscopic exam Left tympanic membrane: air-fluid le viktor 10/01/2016 None Full Exam - ENT Ears/Nose/Throat otoscopic exam Right tympanic membrane: air-fluid level 10/01/2016 None Full Exam - ENT Ears/Nose/Throat lips/teeth/gingiva Overall: benign lips 10/01/2016 None Full Exam [...] ENT Respiratory auscultation Overall: breath sounds clear bilater ally 10/01/2016 None Full Exam - ENT Cardiovascular [...] Neurologic orientation Overall: oriented to person, place a nd time 10/01/2016 None Full Exam - ENT [...] ENT Ears/Nose/Throat otoscopic exam Left tympanic membrane: air-fluid le viktor 09/27/2016 None Full Exam - ENT Ears/Nose/Throat otoscopic exam Right tympanic membrane: air-fluid level 09/27/2016 None Full Exam - ENT Ears/Nose/Throat lips/teeth/gingiva Overall: benign lips 09/27/2016 None Full Exam - ENT Ears/Nose/Throat oropharynx Overall: oral mucosa clear 09/27/2016 None Full Exam - ENT Ears/Nose/Throat oropharynx Posterior Pharynx: clear post nasal drainage 09/27/2016 None Full Exam - ENT Respiratory inspection Overall: no retractions 09/27/2016 None Full Exam - ENT Respiratory inspection Overall: normal rate None Full Exam - ENT Respiratory auscultation Overall: breath sounds clear bilater ally 09/27/2016 None Full Exam - ENT Cardiovascular [...] Neurologic orientation Overall: oriented to person, place a nd time 09/27/2016 None Full Exam - ENT [...] None Full Exam - General 1994 Eyes conjunctiva/eyelids Overall: conjunctiva clear 07/19/2016 None Full Exam - General 1994 Eyes conjunctiva/eyelids Overall: cornea clear 07/19/2016 None Full Exam - General 1994 Eyes conjunctiva/eyelids Overall: eyelids normal 07/19/2016 None Full Exam [...] None Full Exam - General 1994 Eyes conjunctiva/eyelids Overall: conjunctiva clear 07/10/2016 None Full Exam - General 1994 Eyes conjunctiva/eyelids Overall: eyelids normal 07/10/2016 None Full Exam [...] None Full Exam - General 1994 Eyes conjunctiva/eyelids Overall: conjunctiva clear 07/09/2016 None Full Exam - General 1994 Eyes conjunctiva/eyelids Overall: cornea clear 07/09/2016 None Full Exam - General 1994 Eyes conjunctiva/eyelids Overall: eyelids normal 07/09/2016 None Full Exam [...] None Full Exam - General 1994 Eyes conjunctiva/eyelids Overall: conjunctiva clear 06/06/2016 None Full Exam - General 1994 Eyes conjunctiva/eyelids Overall: cornea clear 06/06/2016 None Full Exam - General 1994 Eyes conjunctiva/eyelids Overall: eyelids normal 06/06/2016 None Full Exam [...] ENT Ears/Nose/Throat otoscopic exam Left tympanic membrane: air-fluid le viktor 04/03/2016 None Full Exam - ENT Ears/Nose/Throat otoscopic exam Right tympanic membrane: air-fluid level 04/03/2016 None Full Exam - ENT Ears/Nose/Throat lips/teeth/gingiva Overall: benign lips 04/03/2016 None Full Exam - ENT Ears/Nose/Throat oropharynx Overall: oral mucosa clear 04/03/2016 None Full Exam - ENT Ears/Nose/Throat oropharynx Posterior Pharynx: clear post nasal drainage 04/03/2016 None Full Exam - ENT Respiratory inspection Overall: no retractions 04/03/2016 None Full Exam - ENT Respiratory inspection Overall: normal rate None Full Exam - ENT Respiratory auscultation Overall: breath sounds clear bilater ally 04/03/2016 None Full Exam - ENT Cardiovascular [...] Neurologic orientation Overall: oriented to person, place a nd time 04/03/2016 None Full Exam - General 1994 Constitutional general appearance Development: well developed 12/26/2015 None Full Exam - General 1994 Constitutional general appearance Development: appears stated age 1012/26/2015 None Full Exam - General 1994 Constitutional general appearance Hygiene/Attention to Grooming: good hygiene 12/26/2015 None Full Exam - General 1994 Eyes conjunctiva/eyelids Overall: conjunctiva clear 12/26/2015 None Full Exam - General 1994 Eyes conjunctiva/eyelids Overall: cornea clear 12/26/2015 None Full Exam - General 1994 Eyes conjunctiva/eyelids Overall: eyelids normal 12/26/2015 None Full Exam [...] None Full Exam - General 1994 Eyes conjunctiva/eyelids Overall: conjunctiva clear 09/19/2015 None Full Exam - General 1994 Eyes conjunctiva/eyelids Overall: cornea clear 09/19/2015 None Full Exam - General 1994 Eyes conjunctiva/eyelids Overall: eyelids normal 09/19/2015 None Full Exam [...] None Full Exam - General 1994 Eyes conjunctiva/eyelids Overall: conjunctiva clear 07/19/2015 None Full Exam - General 1994 Eyes conjunctiva/eyelids Overall: cornea clear 07/19/2015 None Full Exam - General 1994 Eyes conjunctiva/eyelids Overall: eyelids normal 07/19/2015 None Full Exam [...] None Full Exam - General 1994 Eyes conjunctiva/eyelids Overall: conjunctiva clear 03/22/2015 None Full Exam - General 1994 Eyes conjunctiva/eyelids Overall: cornea clear 03/22/2015 None Full Exam - General 1994 Eyes conjunctiva/eyelids Overall: eyelids normal 03/22/2015 None Full Exam [...] None Full Exam - General 1994 Eyes conjunctiva/eyelids Overall: conjunctiva clear 02/15/2015 None Full Exam - General 1994 Eyes conjunctiva/eyelids Overall: cornea clear 02/15/2015 None Full Exam - General 1994 Eyes conjunctiva/eyelids Overall: eyelids normal 02/15/2015 None Full Exam [...] None Full Exam - General 1994 Eyes conjunctiva/eyelids Overall: conjunctiva clear 11/15/2014 None Full Exam - General 1994 Eyes conjunctiva/eyelids Overall: cornea clear 11/15/2014 None Full Exam - General 1994 Eyes conjunctiva/eyelids Overall: eyelids normal 11/15/2014 None Full Exam [...] None Full Exam - General 1994 Eyes conjunctiva/eyelids Overall: conjunctiva clear 08/13/2014 None Full Exam - General 1994 Eyes conjunctiva/eyelids Overall: cornea clear 08/13/2014 None Full Exam - General 1994 Eyes conjunctiva/eyelids Overall: eyelids normal 08/13/2014 None Full Exam [...] affect 08/13/2014 None Procedures Procedure Codes Date GLUC MONITOR CONT PH YS I&R CPT-4: 14886 09/16/2017 GLUCOSE MONITORING CONT CPT-4: 59763 07/16/2017 TRIAMCINOLONE ACET I [place] NOS CPT-4: J3301 06/14/2017 DRAIN/INJECT JOINT/B URSA CPT-4: 23596 03/26/2017 TRIAMCINOLONE ACET I NJ NOS CPT-4: J3301 03/26/2017 URINALYSIS NONAUTO W /O SCOPE CPT-4: 81993 01/16/2017 THER/PROPH/DIAG INJ SC/IM CPT-4: 04697 01/16/2017 ROCEPHIN, PER 250 MG CPT-4: J0696 01/16/2017 DESTRUCT PREMALG LESION CPT-4: 52457 10/16/2016 TRIAMCINOLONE ACET I [place] NOS CPT-4: J3301 09/27/2016 ROCEPHIN, PER 250 MG CPT-4: J0696 09/27/2016 PPPS, SUBSEQ VISIT CPT- 4: G0439 07/10/2016 THER/PROPH/DIAG INJ SC/IM CPT-4: 85084 07/09/2016 TRIAMCINOLONE ACET I NJ NOS CPT-4: J3301 07/09/2016 ROCEPHIN, PER 250 MG CPT-4: J0696 07/09/2016 ADMIN PNEUMOCOCCAL V ACCINE SNOMED CT: [id number] CPT-4: G0009 02/15/2015 PNEUMOCOCCAL VACC 13 LIMA IM Formatting Model/CDA Sections, Assigned to SNOMED CT: 16829966 CPT-4: 38051Cpxguvb 02/15/2015 ADMIN INFLUENZA VIRU S VAC CPT-4: G0008 12/10/2014 FLU VACC 4 LIMA 3 YRS PLUS IM Formatting Model/CDA Sections, Assigned to SNOMED CT: 48906881 CPT-4: 49588Lwzlmry 12/10/2014 Vital Signs Date Vital 10/23/2018 Blood Pressure 1: 120/64 Code: 8480-6 BMI: 23.8 Code: 63932-9 Heart Rate 1: 67 bpm Height: 5'2" SpO2: 99% Weight: 130 lbs 08/28/2018 Blood Pressure 1: 120/62 Code: 8480-6 BMI: 24.1 Code: 44217-0 Heart Rate 1: 65 bpm Height: 5'2" SpO2: 96% Weight: 132 lbs 04/28/2018 Blood Pressure 1: 110/58 Code: 8480-6 BMI: 24.0 Code: 38593-9 Heart Rate 1: 56 bpm Height: 5'2" Respiratory Rate: 18 bpm SpO2: 98% Weight: 131 lbs 12/25/2017 Blood Pressure 1: 140/52 Code: 8480-6 BMI: 24.0 Code: 11018-7 Heart Rate 1: 64 bpm Height: 5'2" Respiratory Rate: 18 bpm SpO2: 96% Weight: 131 lbs 11/22/2017 Blood Pressure 1: 128/54 Code: 8480-6 BMI: 23.4 Code: 36257-8 Heart Rate 1: 62 bpm Height: 5'2" SpO2: 97% Weight: 128 lbs 10/07/2017 Blood Pressure 1: 148/68 Code: 8480-6 BMI: 23.2 Code: 08865-8 Heart Rate 1: 68 bpm Height: 5'2" SpO2: 98% Weight: 127 lbs 09/16/2017 Blood Pressure 1: 134/80 Code: 8480-6 BMI: 22.5 Code: 86418-0 Heart Rate 1: 86 bpm Height: 5'2" SpO2: 98% Weight: 123 lbs 09/09/2017 Blood Pressure 1: 150/66 Code: 8480-6 Blood Pressure 1: 138/72 Code: 8480-6 BMI: 22.9 Code: 94923-4 Heart Rate 1: 81 bpm Height: 5'2" SpO2: 98% Weight: 125 lbs 07/16/2017 Blood Pressure 1: 144/68 Code: 8480-6 BMI: 21.9 Code: 46269-4 Heart Rate 1: 73 bpm Height: 5'2" SpO2: 98% Weight: 120 lbs 06/14/2017 Blood Pressure 1: 132/64 Code: 8480-6 BMI: 22.3 Code: 95874-7 Heart Rate 1: 77 bpm Height: 5'2" SpO2: 98% Temperature: 37.0 (C ) / 98.6 (F) Weight: 122 lbs 06/10/2017 Blood Pressure 1: 134/64 Code: 8480-6 BMI: 22.5 Code: 87797-4 Heart Rate 1: 78 bpm Height: 5'2" SpO2: 95% Weight: 123 lbs 05/13/2017 Blood Pressure 1: 140/66 Code: 8480-6 BMI: 21.6 Code: 07350-4 Heart Rate 1: 80 bpm Height: 5'2" SpO2: 98% Weight: 118 lbs 03/26/2017 Blood Pressure 1: 150/78 Code: 8480-6 BMI: 23.2 Code: 35407-0 Heart Rate 1: 73 bpm Height: 5'2" SpO2: 99% Weight: 127 lbs 02/19/2017 Blood Pressure 1: 126/64 Code: 8480-6 BMI: 22.9 Code: 40206-9 Heart Rate 1: 74 bpm Height: 5'2" SpO2: 99% Weight: 125 lbs 01/16/2017 Blood Pressure 1: 136/68 Code: 8480-6 Heart Rate 1: 97 bpm Height: 5'2" Respiratory Rate: 16 bpm Temperature: 37.5 (C ) / 99.5 (F) Weight: 01/08/2017 Blood Pressure 1: 144/60 Code: 8480-6 BMI: 23.0 Code: 87734-2 Heart Rate 1: 71 bpm Height: 5'2" SpO2: 96% Weight: 126 lbs 11/21/2016 Blood Pressure 1: 150/62 Code: 8480-6 BMI: 23.2 Code: 88993-8 Heart Rate 1: 73 bpm Height: 5'2" SpO2: 94% Weight: 127 lbs 10/16/2016 Blood Pressure 1: 142/82 Code: 8480-6 BMI: 22.9 Code: 34108-2 Heart Rate 1: 80 bpm Height: 5'2" SpO2: 96% Weight: 125 lbs 10/08/2016 Blood Pressure 1: 150/72 Code: 8480-6 Heart Rate 1: 65 bpm Height: 5'2" SpO2: 98% 10/01/2016 Blood Pressure 1: 152/76 Code: 8480-6 Heart Rate 1: 69 bpm Height: 5'2" SpO2: 97% 09/27/2016 Blood Pressure 1: 122/64 Code: 8480-6 BMI: 23.3 Code: 10767-2 Heart Rate 1: 80 bpm Height: 5'2" SpO2: 98% Weight: 127 lbs 8 oz 07/19/2016 Blood Pressure 1: 118/68 Code: 8480-6 BMI: 23.0 Code: 97212-6 Heart Rate 1: 62 bpm Height: 5'2" SpO2: 97% Weight: 126 lbs 07/10/2016 Blood Pressure 1: 132/64 Code: 8480-6 BMI: 23.4 Code: 55671-4 Heart Rate 1: 82 bpm Height: 5'2" SpO2: 98% Waist Measure (cm): 76 cm Weight: 128 lbs 07/09/2016 Blood Pressure 1: 132/64 Code: 8480-6 BMI: 23.4 Code: 33529-1 Heart Rate 1: 82 bpm Height: 5'2" SpO2: 98% Temperature: 37.2 (C ) / 98.9 (F) Weight: 128 lbs 06/06/2016 Blood Pressure 1: 144/66 Code: 8480-6 BMI: 23.4 Code: 04363-3 Heart Rate 1: 77 bpm Height: 5'2" SpO2: 97% Weight: 128 lbs 04/03/2016 Blood Pressure 1: 164/70 Code: 8480-6 BMI: 24.5 Code: 83867-4 Heart Rate 1: 80 bpm Height: 5'2" SpO2: 98% Weight: 134 lbs 12/26/2015 Blood Pressure 1: 130/72 Code: 8480-6 BMI: 24.1 Code: 31012-7 Heart Rate 1: 63 bpm Height: 5'2" SpO2: 98% Weight: 132 lbs 09/19/2015 Blood Pressure 1: 140/68 Code: 8480-6 BMI: 24.2 Code: 43537-6 Heart Rate 1: 96 bpm Height: 5'2" SpO2: 98% Weight: 132 lbs 8 oz 07/19/2015 Blood Pressure 1: 128/64 Code: 8480-6 BMI: 24.2 Code: 27484-6 Heart Rate 1: 66 bpm Height: 5'2" SpO2: 98% Weight: 132 lbs 8 oz 03/22/2015 Blood Pressure 1: 128/60 Code: 8480-6 BMI: 24.0 Code: 71549-5 Heart Rate 1: 57 bpm Height: 5'2" SpO2: 98% Weight: 131 lbs 02/15/2015 Blood Pressure 1: 132/56 Code: 8480-6 BMI: 23.8 Code: 35710-6 Heart Rate 1: 70 bpm Height: 5'2" SpO2: 98% Weight: 130 lbs 11/15/2014 Blood Pressure 1: 120/78 Code: 8480-6 BMI: 24.1 Code: 13379-6 Heart Rate 1: 79 bpm Height: 5'2" SpO2: 98% Weight: 132 lbs 08/13/2014 Blood Pressure 1: 140/60 Code: 8480-6 BMI: 24.0 Code: 09640-9 Heart Rate 1: 74 bpm Height: 5'2" Weight: 131 lbs Functional Status No Functional Status data History of Present Illness Symptom Name Status Resu lt Effective Date Notes Onset and Resolution o ngoing 10/23/2018 None Onset of Symptom durin g adulthood 10/23/2018 None Quality insulin depend ent 10/23/2018 None Nutrition regular diet 10/23/2018 None Onset and Resolution o ngoing 08/28/2018 None Onset of Symptom durin g adulthood 08/28/2018 None Quality insulin depend ent 08/28/2018 None Test results Pt checki ng blood glucose at home, see scanned readings 08/28/2018 None Glucose monitoring 2 h ours postprandial 08/28/2018 None Glucose monitoring fas ting 08/28/2018 None Nutrition regular diet 08/28/2018 None Onset and Resolution s udden in onset 08/28/2018 None Onset of Symptom Denie s 1 months ago 08/28/2018 None Quality firm 08/28/2018 None Quality raised 08/28/2018 None Quality tender 08/28/2018 None Location Denies right lower leg 08/28/2018 None Quality stable 04/28/2018 None Length of Episodes 3 d ays 04/28/2018 None Timing of Episodes no specific time 04/28/2018 None Timing of Episodes aft er meals 04/28/2018 None Location in the [facility] area 04/28/2018 None Quality aching 04/28/2018 None Quality cramping 04/28/2018 None Quality intermittent 04/28/2018 None Onset and Resolution s udden in onset 04/28/2018 None Onset of Symptom 3 day s ago 04/28/2018 None Quality constant 04/28/2018 None Onset of Symptom _ mon ths ago 04/28/2018 None Location on the left arm 04/28/2018 None Exacerbating Factors f kevin extension 04/28/2018 None Exacerbating Factors f kevin flexion 04/28/2018 None Pertinent Findings carine n with movement 04/28/2018 None Pertinent Findings sti ffness 04/28/2018 None Pertinent Findings swe lling 04/28/2018 None Frequency of Episodes 4-6 stools per day 04/28/2018 None diarrhea Frequency of Episodes 6-8 stools per day 12/25/2017 None diarrhea Length of Episodes 3 days 12/25/2017 None diarrhea Timing of Episodes no specific time 12/25/2017 None diarrhea Timing of Episodes after meals 12/25/2017 None abdominal pain Location in the suprapubic area 12/25/2017 None abdominal pain Quality a elham 12/25/2017 None abdominal pain Quality c ramping 12/25/2017 None abdominal pain Quality i ntermittent 12/25/2017 None abdominal pain Onset and Resolution sudden in onset 12/25/2017 None abdominal pain Onset of Symptom 3 days ago 12/25/2017 None diarrhea Quality stable 12/25/2017 None edema Quality constant 12/25/2017 None edema Onset of Symptom _ months ago 12/25/2017 None edema Location on the le ft arm 12/25/2017 None diarrhea Quality constant 11/22/2017 None diarrhea Onset and Resolution sudden in onset 11/22/2017 None diarrhea Onset of Symptom 3 days ago 11/22/2017 None diarrhea Frequency of Episodes 6-8 stools per day 11/22/2017 None diarrhea Length of Episodes 3 days 11/22/2017 None diarrhea Timing of Episodes no specific time 11/22/2017 None diarrhea Timing of Episodes after meals 11/22/2017 None abdominal pain Location in the suprapubic area 11/22/2017 None abdominal pain Quality a elham 11/22/2017 None abdominal pain Quality i ntermittent 11/22/2017 None abdominal pain Quality c ramping 11/22/2017 None abdominal pain Onset and Resolution sudden in onset 11/22/2017 None abdominal pain Onset of Symptom 3 days ago 11/22/2017 None diabetes mellitus Quality insulin dependent 10/07/2017 None diabetes mellitus Quality chronic 10/07/2017 None diabetes mellitus Alleviating Factors insulin 10/07/2017 None diabetes mellitus Exacerbating Factors diet 10/07/2017 None diabetes mellitus Pertinent Findings Denies nausea 10/07/2017 None hypertension Quality chr onic 10/07/2017 None hypertension Quality whit[place]ath[place] hypertension 10/07/2017 None hypertension Onset and Resolution ongoing 10/07/2017 None hypertension Onset of Symptom during adulthood 10/07/2017 None hypertension Blood Pressure Values not checking blood pressure at home 10/07/2017 None hypertension Alleviating Factors medication 10/07/2017 None hypertension Pertinent Findings edema 10/07/2017 None diabetes mellitus Glucose monitoring before meals 10/07/2017 None diabetes mellitus Test results Pt checking blood glucose readings, did not bring results to clinic 10/07/2017 None diabetes mellitus Quality chronic 09/16/2017 None diabetes mellitus Alleviating Factors medication 09/16/2017 None diabetes mellitus Alleviating Factors diet 09/16/2017 None diabetes mellitus Alleviating Factors exercise 09/16/2017 None diabetes mellitus Nutrition ADA diet 09/16/2017 None diabetes mellitus Pertinent Findings Denies dyspnea 09/16/2017 None diabetes mellitus Quality insulin dependent 09/09/2017 None diabetes mellitus Alleviating Factors insulin 09/09/2017 None diabetes mellitus Exacerbating Factors diet 09/09/2017 None diabetes mellitus Pertinent Findings Denies nausea 09/09/2017 None low back pain Quality ac parag 09/09/2017 None low back pain Onset and Resolution ongoing 09/09/2017 None low back pain Limitation on Activities allows weight bearing activity 09/09/2017 None low back pain Limitation on Activities moderately limits activities 09/09/2017 None low back pain Frequency of Episodes daily 09/09/2017 None low back pain Alleviating Factors medications 09/09/2017 None low back pain Alleviating Factors physical therapy 09/09/2017 None low back pain Exacerbating Factors changing position 09/09/2017 None low back pain Exacerbating Factors activity 09/09/2017 None hypertension Quality whit[place] hypertension 09/09/2017 None hypertension Onset and Resolution ongoing 09/09/2017 None hypertension Onset of Symptom during adulthood 09/09/2017 None hypertension Alleviating Factors medication 09/09/2017 None hypertension Quality chr onic 09/09/2017 None diabetes mellitus Quality chronic 09/09/2017 None hypertension Pertinent Findings Denies edema 09/09/2017 None hypertension Blood Pressure Values not checking blood pressure at home 09/09/2017 None diabetes mellitus Test results Pt checking blood glucose at home, see scanned readings 09/09/2017 None diabetes mellitus Glucose monitoring before meals 09/09/2017 None low back pain Location o n both sides 09/09/2017 None low back pain Quality co nstant 09/09/2017 None low back pain Alleviating Factors heat 09/09/2017 None diabetes mellitus Test results HgbA1c level 7.6 09/09/2017 None diabetes mellitus Quality insulin dependent 07/16/2017 None diabetes mellitus Alleviating Factors insulin 07/16/2017 None diabetes mellitus Exacerbating Factors diet 07/16/2017 None diabetes mellitus Pertinent Findings Denies dizziness 07/16/2017 None diabetes mellitus Pertinent Findings Denies dyspnea 07/16/2017 None diabetes mellitus Pertinent Findings Denies nausea 07/16/2017 None low back pain Location r ight leg sciatica 07/16/2017 None low back pain Location o n the right 07/16/2017 None low back pain Quality in termittent 07/16/2017 None low back pain Quality ac parag 07/16/2017 None low back pain Onset and Resolution ongoing 07/16/2017 None low back pain Limitation on Activities allows weight bearing activity 07/16/2017 None low back pain Limitation on Activities moderately limits activities 07/16/2017 None low back pain Frequency of Episodes daily 07/16/2017 None low back pain Alleviating Factors medications 07/16/2017 None low back pain Alleviating Factors physical therapy 07/16/2017 None low back pain Exacerbating Factors changing position 07/16/2017 None low back pain Exacerbating Factors activity 07/16/2017 None hypertension Quality whit[place]ath[place] hypertension 07/16/2017 None hypertension Onset and Resolution ongoing 07/16/2017 None hypertension Onset of Symptom during adulthood 07/16/2017 None hypertension Blood Pressure Values patient checking blood pressure at home - did not bring in readings 07/16/2017 -Checks occasionally hypertension Alleviating Factors medication 07/16/2017 None cough Location in the th roat 06/14/2017 None cough Quality constant 06/14/2017 None cough Quality hacking 06/14/2017 None cough Quality productive 06/14/2017 None cough Onset and Resolution sudden in onset 06/14/2017 None cough Onset of Symptom 1 weeks ago 06/14/2017 None sinus congestion Onset and Resolution sudden in onset 06/14/2017 None sinus congestion Onset of Symptom 1 weeks ago 06/14/2017 None diabetes mellitus Quality insulin dependent 06/10/2017 None diabetes mellitus Alleviating Factors insulin 06/10/2017 None diabetes mellitus Exacerbating Factors diet 06/10/2017 None diabetes mellitus Pertinent Findings Denies dizziness 06/10/2017 None diabetes mellitus Pertinent Findings Denies nausea 06/10/2017 None low back pain Location r ight leg sciatica 06/10/2017 None low back pain Location o n the right 06/10/2017 None low back pain Quality in termittent 06/10/2017 None low back pain Quality ac parag 06/10/2017 None low back pain Onset and Resolution ongoing 06/10/2017 None low back pain Limitation on Activities allows weight bearing activity 06/10/2017 None low back pain Limitation on Activities moderately limits activities 06/10/2017 None low back pain Frequency of Episodes daily 06/10/2017 None low back pain Alleviating Factors medications 06/10/2017 None low back pain Alleviating Factors physical therapy 06/10/2017 None low back pain Exacerbating Factors changing position 06/10/2017 None low back pain Exacerbating Factors activity 06/10/2017 None diabetes mellitus Glucose monitoring fasting 06/10/2017 None diabetes mellitus Glucose monitoring before meals 06/10/2017 None diabetes mellitus Test results Pt checking blood glucose at home, see scanned readings 06/10/2017 None diabetes mellitus Pertinent Findings Denies dyspnea 06/10/2017 None hypertension Quality [place] hypertension 06/10/2017 None hypertension Onset and Resolution ongoing 06/10/2017 None hypertension Onset of Symptom during adulthood 06/10/2017 None hypertension Blood Pressure Values patient checking blood pressure at home - did not bring in readings 06/10/2017 -Checks occasionally hypertension Alleviating Factors medication 06/10/2017 None diabetes mellitus Quality insulin dependent 05/13/2017 None diabetes mellitus Alleviating Factors insulin 05/13/2017 None diabetes mellitus Exacerbating Factors diet 05/13/2017 None diabetes mellitus Pertinent Findings Denies nausea 05/13/2017 None low back pain Location r ight leg sciatica 05/13/2017 None low back pain Location o n the right 05/13/2017 None low back pain Onset and Resolution ongoing 05/13/2017 None low back pain Limitation on Activities allows weight bearing activity 05/13/2017 None low back pain Limitation on Activities moderately limits activities 05/13/2017 None low back pain Frequency of Episodes daily 05/13/2017 None low back pain Alleviating Factors medications 05/13/2017 None low back pain Exacerbating Factors changing position 05/13/2017 None low back pain Exacerbating Factors activity 05/13/2017 None low back pain Quality ac parag 05/13/2017 None low back pain Quality in termittent 05/13/2017 None low back pain Alleviating Factors physical therapy 05/13/2017 None diabetes mellitus Glucose monitoring before meals 05/13/2017 None diabetes mellitus Glucose monitoring 2 hours postprandial 05/13/2017 None diabetes mellitus Test results Pt checking blood glucose readings, did not bring results to clinic 05/13/2017 None diabetes mellitus Pertinent Findings Denies dizziness 05/13/2017 None low back pain Location o n the right 03/26/2017 None low back pain Location r ight leg sciatica 03/26/2017 None low back pain Quality ch ronic 03/26/2017 None low back pain Quality wo rsening 03/26/2017 None low back pain Quality co nstant 03/26/2017 None low back pain Onset and [...] hours postprandial 03/26/2017 None cough Quality acute 03/26/2017 None cough Quality intermitte nt 03/26/2017 None cough Onset and Resolution sudden in onset 03/26/2017 None cough Onset of Symptom 1 -2 weeks ago 03/26/2017 None cough Quality dry 03/26/2017 None cough Pertinent Findings Denies fever 03/26/2017 [...] blood glucose at home, see scanned readings 02/19/2017 None diabetes mellitus Pertinent Findings Denies dizziness 02/19/2017 None diabetes mellitus Pertinent Findings Denies dyspnea 02/19/2017 None urinary incontinence Onset and Resolution ongoing 02/19/2017 None urinary incontinence Onset of Symptom during adulthood 02/19/2017 None diabetes mellitus Quality insulin dependent 01/16/2017 FSBS 128 - pt reports rob t her blood glucose was 306 after lunch diabetes mellitus Alleviating Factors medication 01/16/2017 None diabetes mellitus Alleviating Factors insulin 01/16/2017 None diabetes mellitus Exacerbating Factors diet 01/16/2017 None diabetes mellitus Pertinent Findings Denies nausea 01/16/2017 None hypertension Quality [place] hypertension 01/08/2017 None hypertension Onset and Resolution ongoing 01/08/2017 None hypertension Onset of Symptom during adulthood 01/08/2017 None hypertension Blood Pressure Values not checking blood pressure at home 01/08/2017 None hypertension Alleviating Factors medication 01/08/2017 None hypertension Exacerbating Factors stress 01/08/2017 None hypertension Pertinent Findings dizziness 01/08/2017 when her blood sugar is l ow hypertension Pertinent Findings Denies dyspnea 01/08/2017 None [...] dizziness 11/21/2016 when her blood sugar is l ow hypertension Pertinent Findings Denies dyspnea 11/21/2016 None hypertension Pertinent Findings Denies edema 11/21/2016 None diabetes mellitus Quality insulin dependent 11/21/2016 None diabetes mellitus Alleviating Factors medication 11/21/2016 None diabetes mellitus Exacerbating Factors diet 11/21/2016 None diabetes mellitus Pertinent Findings Denies nausea 11/21/2016 None cough Location in the roat 11/21/2016 None hypertension Quality [place] hypertension 11/21/2016 None diabetes mellitus Test results Pt checking blood glucose at home, see scanned readings 11/21/2016 None diabetes mellitus Glucose monitoring before meals [...] urgency 11/21/2016 in the mornings hypertension Quality int ermittent 10/16/2016 None hypertension Onset and Resolution ongoing 10/16/2016 None hypertension Onset of Symptom during adulthood 10/16/2016 None hypertension Blood Pressure Values patient checking blood pressure at home - did not bring in readings 10/16/2016 -Checks rarely hypertension Alleviating Factors medication 10/16/2016 None hypertension Exacerbating Factors stress 10/16/2016 None hypertension Pertinent Findings dizziness 10/16/2016 occasionally- intermitten t hypertension Pertinent Findings Denies dyspnea 10/16/2016 None hypertension Pertinent Findings Denies edema 10/16/2016 None diabetes mellitus Quality insulin dependent 10/16/2016 None diabetes mellitus Alleviating Factors medication 10/16/2016 None diabetes mellitus Exacerbating Factors diet 10/16/2016 None diabetes mellitus Pertinent Findings Denies nausea 10/16/2016 None cough Location in the roat 10/16/2016 None cough Quality productive 10/16/2016 None cough Onset and Resolution ongoing 10/16/2016 None cough Onset of Symptom 1 months ago 10/16/2016 None cough Pertinent Findings Denies fever 10/16/2016 None cough Location in the roat 10/08/2016 None cough Quality acute 10/08/2016 None cough Quality constant 10/08/2016 None cough [...] resolved 10/08/2016 None cough Location in the roat 10/01/2016 None cough Quality acute 10/01/2016 None cough Quality constant 10/01/2016 None cough [...] Findings weakness 10/01/2016 None cough Quality acute 09/27/2016 None cough Pertinent Findings Denies nasal congestion 09/27/2016 None cough Pertinent Findings Denies post nasal drip 09/27/2016 None cough Pertinent Findings Denies sputum production 09/27/2016 None cough Location in the th roat 09/27/2016 None cough Quality constant 09/27/2016 None [...] known associated factors 09/27/2016 None hypertension Quality [place]ath[place] hypertension 07/19/2016 None cough Quality intermitte nt 07/19/2016 None cough Quality acute 07/19/2016 None cough Pertinent Findings Denies sputum production [...] Findings Denies dizziness 07/19/2016 None hypertension Quality sta ble 07/19/2016 None Annual Medicare Wellness Exam Alcohol Use does not drink any alcohol 07/10/2016 None Annual Medicare Wellness Exam Aspirin Use yes 07/10/2016 None Annual Medicare Wellness Exam Blood Glucose (self reported) borderline high (100-125) 07/10/2016 None Annual Medicare Wellness Exam Blood Pressure (self reported) borderline (120/80 - 139/89) 017 None Annual Medicare Wellness Exam Choles terol (self reported) desireable (below 200) 07/10/2016 None Annual Medicare Wellness Exam Depres kole (last 6 months) some of the time 07/10/2016 None Annual Medicare Wellness Exam Depres kole or Hopelessness almost never 07/10/2016 None Annual Medicare Wellness Exam Descri be Your Health fair 07/10/2016 None Annual Medicare Wellness Exam Exerci se Habits exercises 3 days per week 07/10/2016 None Annual Medicare Wellness Exam Exerci se Habits exercises 60 minutes per day 07/10/2016 None Annual Medicare Wellness Exam Handli ng Stress usually juve effectively 07/10/2016 None Annual Medicare Wellness Exam Hemagl obin A-1C (self reported) desireable (6 or lower) 07/10/2016 None Annual Medicare Wellness Exam Hours of Sleep 7 07/10/2016 None Annual Medicare Wellness Exam Intera ction with Friends yes 07/10/2016 None Annual Medicare Wellness Exam Intere sts & Pleasure most of the time 07/10/2016 None Annual Medicare Wellness Exam Life S atisfaction satisfied 07/10/2016 Non e Annual Medicare Wellness Exam Motor Vehicle Safety always fastens seat belt: y 07/11/19 17 None Annual Medicare Wellness Exam Motor Vehicle Safety drives after drinking: n 07/10/2016 None Annual Medicare Wellness Exam Motor Vehicle Safety rides with someone who has been drinking: n 07/10/2016 None Annual Medicare Wellness Exam Nutrition servings of fried food / high fat foods per day: 1 07/10/2016 None Annual Medicare Wellness Exam Nutrition servings of high fiber / whole grain per day: 1 07/10/2016 None Annual Medicare Wellness Exam Nutrition servings of vegetables / fruit per day: 3 07/10/2016 None Annual Medicare Wellness Exam Smokin g and Tobacco Use non smoker 07/10/2016 No ne Annual Medicare Wellness Exam Social & Emotional Support usually 07/10/2016 None Annual Medicare Wellness Exam Stress some of the time 07/10/2016 None Annual Medicare Wellness Exam Sun Exposure protects skin when outdoors: n 07/10/2016 None Hospital Follow Up _ Oth er: hypoglycemia, nausea, vomiting, UTI 07/09/2016 None Hospital Follow Up Quality acute 07/09/2016 None Hospital Follow Up Onset and Resolution resolved 07/09/2016 None Hospital Follow Up Onset of Symptom 3 weeks ago 07/09/2016 None cough Quality acute 07/09/2016 None cough Quality intermitte nt 07/09/2016 None cough Quality productive 07/09/2016 None [...] ago 07/09/2016 None low back pain Location o n the left 07/09/2016 None low back pain Quality wo rsening 07/09/2016 None low back pain Exacerbating Factors activity 07/09/2016 None hypertension Onset and Resolution ongoing 06/06/2016 None hypertension Onset of Symptom during adulthood 06/06/2016 None hypertension Blood Pressure Values patient checking blood pressure at home - did not bring in readings 06/06/2016 -Checks rarely hypertension Alleviating Factors medication 06/06/2016 None hypertension Pertinent Findings dizziness 06/06/2016 occasionally- intermitten t hypertension Pertinent Findings Denies dyspnea 06/06/2016 None [...] Findings Denies nausea 06/06/2016 None hypertension Quality int ermittent 06/06/2016 None hypertension Exacerbating Factors stress 06/06/2016 [...] an adult 04/03/2016 None back pain Location lumba r-sacral spine 12/26/2015 None back pain Quality chronic 12/26/2015 None back pain Onset and Resolution ongoing 12/26/2015 None back pain Limitation on Activities moderately limits activities 12/26/2015 None back pain Frequency of Episodes daily 12/26/2015 None back pain Severity mild 12/26/2015 None back pain Severity moder ate 12/26/2015 None back pain Pertinent Findings Denies sleep disturbance 12/26/2015 None hand pain Location on th e right 12/26/2015 None hand pain Quality chronic 12/26/2015 None hand pain Quality consta nt 12/26/2015 None hand pain Onset and Resolution [...] meals 12/26/2015 None foot pain Location on th e right 12/26/2015 None foot pain Quality chronic 12/26/2015 None foot pain Onset and Resolution ongoing 12/26/2015 None foot pain Significant Medical Conditions peripheral neuropathy 12/26/2015 None foot pain Significant Medical Conditions diabetes mellitus 12/26/2015 None back pain Location lumba r-sacral spine 09/19/2015 None back pain Quality chronic 09/19/2015 None back pain Onset and Resolution ongoing 09/19/2015 None back pain Limitation on Activities moderately limits activities 09/19/2015 None back pain Frequency of Episodes daily 09/19/2015 None back pain Severity mild 09/19/2015 None back pain Severity moder ate 09/19/2015 None back pain Pertinent Findings Denies [...] when she sleeps) hand pain Location on th e right 09/19/2015 None hand pain Quality consta nt 09/19/2015 None hand pain Quality chronic 09/19/2015 [...] Factors stress 09/19/2015 None back pain Quality improv ing 09/19/2015 None back pain Location lumba r-sacral spine 07/19/2015 None back pain Onset and Resolution ongoing 07/19/2015 None back pain Limitation on Activities moderately limits activities 07/19/2015 None back pain Frequency of Episodes daily 07/19/2015 None back pain Severity mild 07/19/2015 None back pain Severity moder ate 07/19/2015 None back pain Pertinent Findings Denies [...] Quality chronic 07/19/2015 None back pain Location lumba r-sacral spine 03/22/2015 None back pain Onset and Resolution ongoing 03/22/2015 None back pain Limitation on Activities moderately limits activities 03/22/2015 None back pain Frequency of Episodes daily 03/22/2015 None back pain Severity mild 03/22/2015 None back pain Severity moder ate 03/22/2015 None back pain Pertinent Findings Denies [...] the morning 03/22/2015 None back pain Location lumba r-sacral spine 02/15/2015 None back pain Limitation on Activities moderately limits activities 02/15/2015 None back pain Frequency of Episodes daily 02/15/2015 None back pain Severity mild 02/15/2015 None back pain Severity moder ate 02/15/2015 None back pain Pertinent Findings Denies [...] her blood glucose is running in in 15 0 in the morning and 150's in the [...] Findings weakness 11/15/2014 None back pain Location lumba r-sacral spine 11/15/2014 None back pain Severity mild 11/15/2014 None back pain Severity moder ate 11/15/2014 None back pain Mechanism of injury [...] No Advance Directive data Encounters Encounter Performer Loca tion Codes Date ([id number]) [id number] EST. P ATIENT, LEVEL IV Diagnosis: Essential (primary) hypertension[ICD10: I10] Diagnosis: Type 2 diabetes mellitus with hyperglycemia[ICD10: E11.65] Dominique Recinos MD, C CPT-4: 98609 10/23/[id number]) [id number] EST. P ATIENT, LEVEL IV Diagnosis: Type 2 diabetes mellitus with hyperglycemia[ICD10: E11.65] Diagnosis: Essential (primary) hypertension[ICD10: I10] Diagnosis: Other skin changes[ICD10: R23.8] Dominique Recinos MD, [facility] CPT-4: 09664 08/28/2018 [id number]) 90445 EST. P ATIENT, LEVEL IV Diagnosis: Essential (primary) hypertension[ICD10: I10] Diagnosis: Type 2 diabetes mellitus with hyperglycemia[ICD10: E11.65] Diagnosis: Trigger finger, right middle finger[ICD10: M65.331] Dominique Recinos MD, C CPT-4: 38370 04/28/2018 [id number]) [id number] EST. P ATIENT, LEVEL IV Diagnosis: Type 2 diabetes mellitus with hyperglycemia[ICD10: E11.65] Diagnosis: Essential (primary) hypertension[ICD10: I10] Diagnosis: Localized edema[ICD10: R60.0] Dominique Recinos MD, [facility] CPT-4: 48814 12/25/2017 ([id number]) 22557 EST. P ATIENT, LEVEL IV Diagnosis: Diverticulitis of large intestine without perforation or abscess without bleeding[ICD10: K57.32] Diagnosis: Nausea[ICD10: R11.0] Maile Recinos MD, [facility] CPT-4: 16478 11/22/2017 ([id number]) Miscellaneou s no charge Diagnosis: Laceration without foreign body of right forearm, subsequent encounter[ICD10: S51.811D] Dominique Recinos MD, [facility] CPT-4: 07045 10/16/2017 ([id number]) Miscellaneou s no charge Diagnosis: Laceration without foreign body of right forearm, subsequent encounter[ICD10: S51.811D] Dominique Recinos MD [facility] CPT-4: 14797 10/14/2017 ([id number]) Miscellaneou s no charge Diagnosis: Laceration without foreign body of right forearm, subsequent encounter[ICD10: S51.811D] Dominique Recinos MD [facility] CPT-4: 01492 10/09/2017 ([id number]) [id number] EST. P ATIENT, LEVEL III Diagnosis: Type 2 diabetes mellitus with hyperglycemia[ICD10: E11.65] Dominique Recinos MD, [facility] CPT-4: 77473 10/07/2017 ([id number]) 40244 EST. P ATIENT, LEVEL III Diagnosis: Type 2 diabetes mellitus with hyperglycemia[ICD10: E11.65] Fatmata Recinos MD, [facility] CPT-4: 45547 09/16/2017 ([id number]) 79906 EST. P ATIENT, LEVEL III Diagnosis: Essential (primary) hypertension[ICD10: I10] Dominique Recinos MD, C CPT-4: 98373 09/09/2017 ([id number]) Miscellaneou s no charge Diagnosis: Type 1 diabetes mellitus without complications[ICD10: E10.9] Fatmata Recinos MD, [facility] CPT-4: 81932 07/22/2017 ([id number]) 53592 EST. P ATIENT, LEVEL IV Diagnosis: Type 1 diabetes mellitus without complications[ICD10: E10.9] Diagnosis: Mixed hyperlipidemia[ICD10: E78.2] Diagnosis: Essential (primary) hypertension[ICD10: I10] Dominique Recinos MD, C CPT-4: 46784 07/16/2017 ([id number]) 46507 EST. P ATIENT, LEVEL III Diagnosis: Cough[ICD10: R05] Diagnosis: Acute recurrent maxillary sinusitis[ICD10: J01.01] Maile Recinos MD, [facility] CPT-4: 17160 06/14/2017 ([id number]) 85421 EST. P ATIENT, LEVEL IV Diagnosis: Type 1 diabetes mellitus without complications[ICD10: E10.9] Diagnosis: Essential (primary) hypertension[ICD10: I10] Dominique Recinos MD, C CPT-4: 42525 06/10/2017 ([id number]) 72410 EST. P ATIENT, LEVEL IV Diagnosis: Essential (primary) hypertension[ICD10: I10] Diagnosis: Type 1 diabetes mellitus without complications[ICD10: E10.9] Dominique Recinos MD, [facility] CPT-4: 63700 05/13/2017 [id number] EST. PATIENT, LEVEL III Diagnosis: Sciatica, right side[ICD10: M54.31] Diagnosis: Low back pain[ICD10: M54.5] Fatmata Recinos MD, [facility] CPT-4: 28694 03/26/2017 ([id number]) 94170 EST. P ATIENT, LEVEL III Diagnosis: Type 1 diabetes mellitus without complications[ICD10: E10.9] Diagnosis: Essential (primary) hypertension[ICD10: I10] Dominique Recinos MD, C CPT-4: 39348 02/19/2017 ([id number]) 19178 EST. P ATIENT, LEVEL IV Diagnosis: Fever presenting with conditions classified elsewhere[ICD10: R50.81] Diagnosis: Weakness[ICD10: R53.1] Diagnosis: Frequency of micturition[ICD10: R35.0] Diagnosis: Type 1 diabetes mellitus without complications[ICD10: E10.9] Dominique Recinos MD, [facility] CPT-4: 30215 01/16/2017 ([id number]) 75544 EST. P ATIENT, LEVEL IV Diagnosis: Type 1 diabetes mellitus without complications[ICD10: E10.9] Diagnosis: Essential (primary) hypertension[ICD10: I10] Dominique Recinos MD, [facility] CPT-4: 13254 01/08/2017 ([id number]) 57096 EST. P ATIENT, LEVEL IV Diagnosis: Essential (primary) hypertension[ICD10: I10] Diagnosis: Type 1 diabetes mellitus without complications[ICD10: E10.9] Dominique Recinos MD, [facility] CPT-4: 72775 11/21/2016 ([id number]) 54732 EST. 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 P ATIENT, LEVEL III Diagnosis: Chronic obstructive pulmonary disease with (acute) exacerbation[ICD10: J44.1] Diagnosis: Cough[ICD10: R05] Maile Recinos MD, [facility] CPT-4: 13215 10/08/2016 ([id number]) Miscellaneou s no charge Diagnosis: Cough[ICD10: R05] Diagnosis: Chronic obstructive pulmonary disease with (acute) exacerbation[ICD10: J44.1] Maile Recinos MD, [facility] CPT-4: 11445 10/01/2016 ([id number]) 28127 EST. P ATIENT, LEVEL III Diagnosis: Cough[ICD10: R05] Diagnosis: Acute bronchitis, unspecified[ICD10: J20.9] [facility] CPT-4: 48678 09/27/2016 ([id number]) 64916 EST. P ATIENT, LEVEL III Diagnosis: Type 1 diabetes mellitus without complications[ICD10: E10.9] Dominique Recinos MD, [facility] CPT-4: 41286 07/19/2016 ([id number]) 76550 EST. P ATIENT, LEVEL IV Diagnosis: Essential (primary) hypertension[ICD10: I10] Diagnosis: Type 1 diabetes mellitus without complications[ICD10: E10.9] Diagnosis: Other allergic rhinitis[ICD10: J30.89] Diagnosis: Acute laryngopharyngitis[ICD10: J06.0] Dominique Recinos MD, [facility] CPT-4: 07040 07/09/2016 ([id number]) 85273 EST. P ATIENT, LEVEL IV Diagnosis: Essential (primary) hypertension[ICD10: I10] Diagnosis: Type 1 diabetes mellitus without complications[ICD10: E10.9] Diagnosis: Mixed hyperlipidemia[ICD10: E78.2] Dominique Recinos MD, [facility] CPT- 4: 06913 06/06/2016 58802 EST. PATIENT, LEVEL III Diagnosis: Other allergic rhinitis[ICD10: J30.89] Diagnosis: Acute laryngopharyngitis[ICD10: J06.0] Fatmata Recinos MD, [facility] CPT-4: 27626 04/03/2016 ([id number]) 19319 EST. P ATIENT, LEVEL IV Diagnosis: Type 1 diabetes mellitus without complications[ICD10: E10.9] Diagnosis: Essential (primary) hypertension[ICD10: I10] Diagnosis: Pain in right hand[ICD10: M79.641] Dominique Recinos MD, [facility] CPT- 4: 14645 12/26/2015 ([id number]) 02243 EST. P ATIENT, LEVEL IV Diagnosis: Type 1 diabetes mellitus without complications[ICD10: E10.9] Diagnosis: Essential (primary) hypertension[ICD10: I10] Dominique Recinos MD, [facility] CPT-4: 99808 09/19/2015 ([id number]) 59423 EST. P ATIENT, LEVEL IV Diagnosis: Essential (primary) hypertension[ICD10: I10] Diagnosis: Mixed hyperlipidemia[ICD10: E78.2] Diagnosis: Type 1 diabetes mellitus without complications[ICD10: E10.9] Dominique Recinos MD, [facility] CPT-4: 05754 07/19/2015 ([id number]) 92849 EST. 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 P ATIENT, LEVEL IV Diagnosis: ESSENTIAL HYPERTENSION[ICD9: 401.9] Diagnosis: DIABETES TYPE II[ICD9: 250.00] Diagnosis: FALL FROM LADDER[ICD9: E881.0] Diagnosis: Right hip pain[ICD9: 719.45] Diagnosis: Left hand pain[ICD9: 729.5] Diagnosis: Sacroiliac joint pain[ICD9: 724.6] Dominique Recinos MD, [facility] CPT- 4: 40633 11/15/2014 ([id number]) OFFICE [facility], [facility] - LEVEL 4 Diagnosis: DIABETES TYPE II[ICD9: 250.00] Diagnosis: ESSENTIAL HYPERTENSION[ICD9: 401.9] Diagnosis: HYPERLIPIDEMIA[ICD9: 272.4] Dominique Recinos MD, [facility] CPT-4: 37662 08/13/2014 Plan of Care Planned Activity Notes C odes Status Date Visit Plan: Hypertension - well con trolled - continue with current medications, continue with no added salt diet. Pt has been encouraged to exercise daily. The pt has been advised to call the office if there are any acute concerns about change in blood pressure readings at home. Diabetes Mellitus - Improved control - continue with current management. I have recommended for the patient to [...] more strictly to the diabetic diet as di karyn in clinic to allow for greater blood glucose control. 10/23/2018 Patient Education: Patient Medication Summary Completed 10/23/2018 Patient Education: Hypertension Completed 10/23/2018 Patient Education: Diabetes Completed 10/23/2018 Appointment: Dominique Recinos WPtel: [facility] (15 min) Moderate 10/13/2018 Visit Plan: Diabetes Mellitus - Unc ontrolled - per recent FSBS reports. I have [...] to allow for greater blood glucose control. Discussed diet changes with patient and need to avoid as many carbs as she has been eating and increase protein. Increase Lantus to 20 units daily. Hypertension - well controlled - continue with current medications, continue with no added salt diet. Pt has been encouraged to exercise daily. The pt has been advised to call the office if there are any acute concerns about change in blood pressure readings at home. wound on leg - from roses - pt is to use neosporin on the wound and keep it covered. I removed a thorn from the lesion today. 08/28/2018 Appointment: Dominique Recinos WPtel: [facility] (15 min) Moderate 08/28/2018 Patient Education: Patient Medication Summary Completed 08/28/2018 Patient Education: Diabetes Completed 08/28/2018 Appointment: [phone] (15 min) Moderate 08/13/2018 Visit Plan: Hypertension - well con trolled - continue with current medications, continue with no added salt diet. Pt has been encouraged to exercise daily. The pt has been advised to call the office if there are any acute concerns about change in blood pressure readings at home. Trigger finger - referral to dr. rincon for trigger finger 3rd finger right hand Diabetes Mellitus - controlled - per recent [...] readings are starting to become less controlled. 04/28/2018 Appointment: Dominique Recinos WPtel: [phone] [facility] (15 min) Moderate 04/28/2018 Patient Education: Patient Medication Summary Completed 04/28/2018 Patient Education: Diabetes Completed 04/28/2018 Visit Plan: Diabetes Mellitus -fair ly well controlled -per her verbal report on her blood glucose readings. I have recommended for the patient to [...] change in blood pressure readings at home. Edema - discussed with pt need to compression legs and keep legs elevated while seated. 12/25/2017 Appointment: Dominique Recinos WPtel: [phone] [facility] [place] (15 min) Moderate 12/25/2017 Patient Education: Patient Medication Summary Completed 12/25/2017 Patient Education: Diabetes Completed 12/25/2017 Appointment: Dominique Recinos WPtel: [facility] [place] (15 min) Moderate 12/09/2017 Visit Plan: Diverticulitis - rx for antibiotic sent to pt's pharmacy - pt advised to avoid seeds, nuts, popcorn, or any other food which has been proven to upset the pt's stomach. 11/22/2017 Appointment: Maile Randolph WPtel: [phone] [phone] [place] (15 min) Moderate 11/22/2017 Patient Education: Patient Medication Summary Completed 11/22/2017 Patient Education: Diverticulitis Completed 11/22/2017 Appointment: Nurse Visit 11/13/2017 Appointment: Nurse Visit 10/16/2017 Patient Education: Patient Medication Summary Completed 10/16/2017 Appointment: Nurse Visit 10/14/2017 Patient Education: Patient Medication Summary Completed 10/14/2017 Appointment: Nurse Visit 10/09/2017 Appointment: Nurse Visit 10/09/2017 Patient Education: Patient Medication Summary Completed 10/09/2017 Appointment: Nurse Visit 10/08/2017 Visit Plan: Diabetes Mellitus - con trolled - per recent FSBS reports. I have [...] readings are starting to become less controlled. wait at least 2 hours after you have eaten before checking your blood glucose. 10/07/2017 Appointment: Dominique Recinos [facility]Ptel: [phone] (15 min) [facility] 10/07/2017 Patient Education: Patient Medication Summary Completed 10/07/2017 Visit Plan: Diabetes Mellitus - I h ave recommended for the patient to have follow [...] to allow for greater blood glucose control. 09/16/2017 Visit Plan: Diabetes Mellitus - I h ave recommended for the patient to have follow [...] to allow for greater blood glucose control. Ipro results reviewed with the patient today in clinic. 09/16/2017 Appointment: Fatmata Spann [phone] [place] (15 min) Moderate 09/16/2017 Patient Education: Patient Medication Summary Completed 09/16/2017 Visit Plan: Hypertension - well con trolled - continue with current medications, continue with no added salt diet. Pt has been encouraged to exercise daily. The pt has been advised to call the office if there are any acute concerns about change in blood pressure readings at home. 09/09/2017 Appointment: Dominique Recinos WPtel: [phone] [facility] [place] (15 min) Moderate 09/09/2017 Patient Education: Patient Medication Summary Completed 09/09/2017 Appointment: Maile Randolph WPtel: [phone] [phone] [place] (15 min) Moderate 09/06/2017 Appointment: Dominique Recinos WPtel: [phone] [facility] [place] (15 min) Moderate 09/05/2017 Appointment: Fatmata Spann [facility]Ptel[phone] [place] (15 min) Moderate 07/22/2017 Patient Education: Patient Medication Summary Completed 07/22/2017 Visit Plan: Diabetes Mellitus - con trolled - per recent FSBS reports. I have [...] readings are starting to become less controlled. ipro placed today - by [employer] - pt to RTC on Saturday for removal of the ipro - then RTC in 3 weeks for diabetic medication adjustments Hypertension - well controlled - continue with [...] to assure normal liver response to medications. 07/16/2017 Visit Plan: Diabetes Mellitus - con stephenieed - per recent FSBS reports. I have [...] readings are starting to become less controlled. ipro placed today - by [employer]AM[employer]ER - pt to RTC on Saturday for removal of the ipro - then RTC in 3 weeks for diabetic medication adjustments Hypertension - well controlled - continue with [...] to assure normal liver response to medications. 07/16/2017 Appointment: Dominique Recinos [facility]Ptel: [phone] (15 min) Moderate 07/16/2017 Patient Education: Patient Medication Summary Completed 07/16/2017 Visit Plan: Sinusitis - Pt has acut e infection - pain in face, maxillary region, Pt informed to use decongestant, RX given to patient, sinus rinses also recommended. Call if symptoms do not show improvement. 06/14/2017 Appointment: Maile Randolph [facility]Ptel[phone] [phone] (30 min) Complex 06/14/2017 Patient Education: Patient Medication Summary Completed 06/14/2017 Visit Plan: Diabetes Mellitus - unc ontrolled - per recent FSBS reports. I have [...] readings are starting to become less controlled. increase lantus to 17 units daily Hypertension - well controlled - continue with current medications, continue with no added salt diet. Pt has been encouraged to exercise daily. The pt has been advised to call the office if there are any acute concerns about change in blood pressure readings at home. 06/10/2017 Appointment: Dominique Recinos WPtel: [phone] [facility] (15 min) Moderate 06/10/2017 Patient Education: Patient Medication Summary Completed 06/10/2017 Appointment: Fatmata Spann [facility]Ptel: [phone] [facility] [place] (30 min) Complex 06/03/2017 Visit Plan: Hypertension - well con trolled - continue with current medications, continue with [...] readings are starting to become less controlled. 05/13/2017 Appointment: Dominique Recinos WPtel: [phone] [place] (15 min) Moderate 05/13/2017 Patient Education: Patient Medication Summary Completed 05/13/2017 Appointment: Dominique Recinos WPtel: [phone] [place] (30 min) Complex 05/03/2017 Appointment: Fatmata Spann [facility]Ptel: [phone] [facility] [place] (15 min) Moderate 04/12/2017 Appointment: GreeleyElmer handleyy WPtel: [phone] [place] (15 min) Moderate 04/11/2017 Appointment: Jorje Dominique WPtel: [phone] [facility] [place] (15 min) Moderate 04/10/2017 Appointment: GreeleyElmer handleyy WPtel: [phone] [facility] [place] (15 min) Moderate 04/02/2017 Visit Plan: Low back pain- the pola ent was instructed in appropriate posture, need for [...] anti-inflammatories post injection today, ice to the inje cted site, call if redness, warmth, or increased pain occurs at the site of injection. 03/26/2017 Appointment: Fatmata Spann WPtel: [phone] [facility] [place] (30 min) Complex 03/26/2017 Appointment: Dominique Recinos WPtel: [phone] [place] (15 min) Moderate 03/26/2017 Patient Education: Patient Medication Summary Completed 03/26/2017 Visit Plan: Diabetes Mellitus - Unc ontrolled - per recent FSBS reports. I have [...] at home. 02/19/2017 Appointment: Dominique Recinos WPtel: [facility] (15 min) Moderate 02/19/2017 Patient Education: Patient Medication Summary Completed 02/19/2017 Patient Education: Hypertension Completed 02/19/2017 Appointment: Dominique Recinos WPtel: [facility] (15 min) Moderate 02/12/2017 Visit Plan: Diabetes mellitus - blo od glucose level too well controlled - decrease dose of lantus from 10 units to 7 units - decrease novolog as directed. Dysuria - checked ua - will send for culture - continue with monitor - rocephin shot given today. Fever - monitor temperature at home, call if consistently above 100F. 01/16/2017 Appointment: Dominique Recinos WPtel: [facility] (15 min) Moderate 01/16/2017 Patient Education: Patient Medication Summary Completed 01/16/2017 Visit Plan: Diabetes Mellitus - con trolled - per recent FSBS reports. I have [...] at home. 01/08/2017 Appointment: Dominique Recinos WPtel: [phone] [facility] (15 min) Moderate 01/08/2017 Patient Education: Patient Medication Summary Completed 01/08/2017 Patient Education: Hypertension Completed 01/08/2017 Appointment: Dominique Recinos WPtel: [phone] [facility] [place] (15 min) Moderate 12/31/2016 Appointment: Dominique Recinos WPtel: [phone] [facility] (15 min) Moderate 12/18/2016 Visit Plan: Hypertension - uncontro lled - the patient's medications have been modified as documented in the visit note. The patient has been counseled to cut back on salt in diet for a no added salt diet, low fat d iet, start an exercise program with low weight [...] starting to become less controlled. 11/21/2016 Appointment: JorjeDominique handley WPtel: [phone] [facility] (15 min) Moderate 11/21/2016 Patient Education: Patient Medication Summary Completed 11/21/2016 Patient Education: Hypertension Completed 11/21/2016 Visit Plan: DM - uncontrolled - inc rease lantus to 15 units - We will [...] potatoes, creamy coleslaw, etc. -- referral to clinical rehab specialist. Hyperlipidemia - pt has been counseled [...] etc. 10/16/2016 Appointment: Dominique Recinos WPtel: [phone] [facility] (15 min) Moderate 10/16/2016 Patient Education: Patient Medication Summary Completed 10/16/2016 Patient Education: Hypertension Completed 10/16/2016 Patient Education: Patient Medication Summary Completed 10/09/2016 Care Plan: Free T4 Pending 10/09/2016 Visit Plan: COPD exacerbation-cough -symptoms resolved-call if symptoms return-monitor blood sugars closely for the next few days and discussed diet. 10/08/2016 Appointment: Maile Randolph WPtel: [facility] [place] [address] (15 min) Moderate 10/08/2016 Patient Education: Patient Medication Summary Completed 10/08/2016 Visit Plan: COPD EXACERBATION - INVENTORY TRANSCRIBER D is a chronic problem for this patient, [...] changes. 10/01/2016 Appointment: Maile Randolph WPtel: [phone] [phone] (30 min) Complex 10/01/2016 Patient Education: Patient Medication Summary Completed 10/01/2016 Visit Plan: Bronchitis - acute case of bronchitis identified. Pt has been given antibiotics, breathing treatments as appropriate, and pt has been instructed to call if symptoms are not improved, or if symptoms acutely worsen. 09/27/2016 Appointment: Maile Randolph WPtel: [phone] [phone] (30 min) Complex 09/27/2016 Patient Education: Patient Medication Summary Completed 09/27/2016 Visit Plan: Diabetes Mellitus - con trolled - per recent FSBS reports. I have [...] less controlled. 07/19/2016 Appointment: Dominique Recinos WPtel: [phone] [facility] (15 min) Moderate 07/19/2016 Patient Education: Patient Medication Summary Completed 07/19/2016 Visit Plan: Medicare Exam - today w e discussed the patients past history, immunizations, preventative [...] care surrogate. 07/10/2016 Appointment: Fatmata Spann WPtel: [phone] [facility] [facility] - Annual Wellness Visit 07/10/2016 Patient Education: Patient Medication Summary Completed 07/10/2016 Visit Plan: Hypertension - well con trolled - continue with current medications, continue with [...] improving 07/09/2016 Appointment: Dominique Recinos WPtel: [phone] [facility] (15 min) Moderate 07/09/2016 Patient Education: Patient Medication Summary Completed 07/09/2016 Patient Education: Hypertension Completed 07/09/2016 Appointment: Dominique Recinos WPtel: [phone] [facility] (15 min) Moderate 06/26/2016 Visit Plan: Hypertension - well con trolled - continue with current medications, continue with [...] and to assure normal liver response to me dications. 06/06/2016 Appointment: Dominique Recinos WPtel: [phone] [place] (15 min) Moderate 06/06/2016 Patient Education: Patient Medication Summary Completed 06/06/2016 Appointment: Dominique Recinos WPtel: [phone] [facility] [place] (15 min) Moderate 04/30/2016 Visit Plan: URI - Pt advised to inc rease fluids, vitamin C. Discussed natural and expected [...] allergy spray. 04/03/2016 Appointment: Fatmata Spann [facility]el[phone] (30 min) Complex 04/03/2016 Patient Education: Patient Medication Summary Completed 04/03/2016 Patient Education: Patient Medication Summary Completed 02/01/2016 Visit Plan: Hypertension - well con trolled - continue with current medications, continue with [...] Completed 12/26/2015 Appointment: Dominique Recinos WPtel: [phone] (15 min) Moderate 12/19/2015 Visit Plan: Diabetes Mellitus - con trolled - per recent FSBS reports. I have [...] at home. 09/19/2015 Appointment: Dominique Recinos WPtel: [phone] [facility] (15 min) Moderate 09/19/2015 Patient Education: Patient Medication Summary Completed 09/19/2015 Visit Plan: Hypertension - well con trolled - continue with current medications, continue with [...] and to assure normal liver response to me dications. 07/19/2015 Appointment: Dominique Recinos WPtel: [phone] [place] (15 min) Moderate 07/19/2015 Patient Education: Patient Medication Summary Completed 07/19/2015 Referral: External, Ordering Provider Referral Completed 03/30/2015 Visit Plan: Diabetes Mellitus - con trolled - per recent FSBS reports. I have [...] aches - recommended pt to start on co- enzyme q10. Back pain - referral to [facility] for further eval and treat. 03/22/2015 Appointment: Dominique Recinos WPtel: [phone] [place] (15 min) Moderate 03/22/2015 Patient Education: Patient Medication Summary Completed 03/22/2015 Care Plan: Referral Order SNOMED-CT : [id number] Ordered 03/22/2015 Visit Plan: Hypertension - well con trolled - continue with current medications, continue with [...] Completed 12/10/2014 Visit Plan: Diabetes Mellitus - con alice - per recent FSBS reports. I have [...] Completed 11/15/2014 Visit Plan: Diabetes Mellitus - con trolled - per recent FSBS reports. I have [...] and to assure normal liver response to me dications. 08/13/2014 Appointment: Dominique Recinos WPtel: [facility] [place] (S[place] New Patient 08/13/2014 Patient Education: [...] if symptoms acutely worsen. if your blood glucos e is between 70 and 150 - do [...] readings at home. . Diabetes Mellitus - I have recommended for the patient to [...] to allow for greater blood glucose control. . Diabetes Mellitus - I have recommended for the patient to [...] to allow for greater blood glucose control. Ipro results reviewed with the patient today in clinic. . URI - Pt advised t o increase fluids, vitamin C. Discussed natural and [...] spray in the nasal steroid allergy spray. increase lantus to 1 7 units daily . Diabetes Mellitus - uncontrolled - per recent FSBS reports. I have [...] readings are starting to become less controlled. increase lantus to 17 units daily Hypertension - well controlled - continue with current medications, continue with no added salt diet. Pt has been encouraged to exercise daily. The pt has been advised to call the office if there are any acute concerns about change in blood pressure readings at home. . Low back pain- the patient was [...] the site of injection. . Hypertension - wel l controlled - continue with current medications, continue [...] Biofreeze or Aspercreme call if not improving. FLAGYL 500MG THREE T IMES DAILY X 10 DAYS CIPRO TWICE DAILY X 10 DAYS CONTINUE PROBIOTIC AVOID SEEDS, NUTS, POPCORN . Diverticulitis - rx for antibiotic sen t to pt's pharmacy - pt advised to avoid seeds, nuts, popcorn, or any other food which has been proven to upset the pt's stomach. . Diabetes Mellitus - controlled - per [...] pressure readings at home. . Hypertension - wel l controlled - continue with current medications, continue [...] readings are starting to become less controlled. wait at least 2 hour s after you have eaten before checking your blood glucose. . Diabetes Mellitus - controlled - per r ecent FSBS reports. I have recommended for the patient to have follow up labs prior to the next office visit. The patient has been instructed to continue with current medications as previously directed, continue with regular FSBS monitoring to assure continued control of diabetes. Pt to call for any acute concerns, complaints, or if the blood glucose readings are starting to become less controlled. wait at least 2 hours after you have eaten before checking your blood glucose. . Diabetes Mellitus - controlled - per [...] readings at home. get TIGER BALM - ove r the counter - to RUB ON THE [...] ride. . Hypertension - well controlled - susy nue with current medications, continue with no added [...] liver response to medications. decrease the zocor t o 20mg daily (take 1/2 of a pill [...] potatoes, creamy coleslaw, etc. -- referral to clinical rehab specialist. Hyperlipidemia - pt has been counseled [...] on lesion until healed decrease the zocor t o 20mg daily (take 1/2 of a pill [...] etc. . Hyperlipidemia - pt has been counsele d about appropriate diet, exercise, and need for [...] creamy coleslaw, etc. Go back to taking yo ur benicar at 40mg every day. Decrease the Lantus to 10 units daily - bring in your blood glucose readings in one week . Hypertension - uncontrolled - the pola ent's medications have been modified as documented in [...] readings are starting to become less controlled. INCREASE THE LANTUS TO 20 UNITS BRING IN YOUR BLOOD GLUCOSE READINGS TO THE OFFICE IN ONE MONTH MAKE SURE THAT YOU ARE EATING A PROTIEN SNACK BEFORE BED - EAT 2 SLICES OF LUNCH MEAT AND 1/2 A SLICE OF CHEESE OR EAT A BOILED EGG. . Diabetes Mellitus - Uncontrolled - per [...] to allow for greater blood glucose control. Discussed diet changes with patient and need to avoid as many carbs as she has been eating and increase protein. Increase Lantus to 20 units daily. Hypertension - well controlled - continue with current medications, continue with no added salt diet. Pt has been encouraged to exercise daily. The pt has been advised to call the office if there are any acute concerns about change in blood pressure readings at home. wound on leg - from roses - pt is to use neosporin on the wound and keep it covered. I removed a thorn from the lesion today. . Hypertension - wel l controlled - continue with current medications, continue with no added salt diet. Pt has been encouraged to exercise daily. The pt has been advised to call the office if there are any acute concerns about change in blood pressure readings at home. . Diabetes Mellitus -fairly well controlled -per her verbal report on her blood glucose readings. I have recommended for the patient to [...] change in blood pressure readings at home. Edema - discussed with pt need to compression legs and keep legs elevated while seated. kenalog . Sinusitis - Pt has acute infection - p ain in face, maxillary region, Pt informed to use decongestant, RX given to patient, sinus rinses also recommended. Call if symptoms do not show improvement. two old goats - from [employer] and home . Hypertension - well controlled - susy nue with current medications, continue with no added [...] liver response to medications. . Hypertension - wel l controlled - continue with current medications, continue [...] mornings. . Diabetes mellitus - blood glucose leve l too well controlled - decrease dose of [...] . Diabetes Mellitus - controlled - per r ecent FSBS reports. I have recommended for the [...] to become less controlled. . Hypertension - wel l controlled - continue with current medications, continue [...] response to medications. . 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 . Hypertension - wel l controlled - continue with current medications, continue with no added salt diet. Pt has been encouraged to exercise daily. The pt has been advised to call the office if there are any acute concerns about change in blood pressure readings at home. Diabetes Mellitus - Improved control - continue with current management. I have recommended for the patient to [...] to allow for greater blood glucose control. . Hypertension - wel l controlled - continue with current medications, continue with no added salt diet. Pt has been encouraged to exercise daily. The pt has been advised to call the office if there are any acute concerns about change in blood pressure readings at home. Trigger finger - referral to dr. rincon for trigger finger 3rd finger right hand Diabetes Mellitus - controlled - per recent [...] are starting to become less controlled. . Diabetes Mellitus - controlled - per [...] readings are starting to become less controlled. ipro placed today - by [employer]AMINER - pt to RTC on Saturday for removal of the ipro - then RTC in 3 weeks for diabetic medication adjustments Hypertension - well controlled - continue with [...] assure normal liver response to medications. . Diabetes Mellitus - controlled - per [...] readings are starting to become less controlled. ipro placed today - by [employer]AM[employer]ER - pt to RTC on Saturday for removal of the ipro - then RTC in 3 weeks for diabetic medication adjustments Hypertension - well controlled - continue with [...] assure normal liver response to medications. . COPD exacerbation- cough-symptoms resolved-call if symptoms return-monitor blood sugars closely for the next few days and discussed diet. zocor can cause musc le aches - the zocor is for high cholesterol - there is a supplement that can decrease the muscle aches that you are having - it is called COENZYME Q10 - YOU TAKE DIRECTED ON THE BOTTLE. call the office if the symptoms are not better. . Diabetes Mellitus - controlled - per r tonya FSBS reports. I have recommended for the [...]
--- OUTSIDE RECORDS SUMMARY | 2019-06-14 16:51 | XMS REPORT | CCD ---
Author Author Nathalia Recinos Organization [facility] Address [address] [place] [address] Phone Care Team Providers Care Clinical Veterinarian Name Role Phone PP Unavailable CCM Unavailable Summary Purpose Interface Exchange Insurance Providers Payer name Policy type / Coverage type Covered libertarian ID Effective Begin Date Effective End Date WPS Medicare Part B Medicare Part B [id number] Unknown [facility] ica Part B [id number] Un known Family history Mother Diagnosis Age At Onset No Family Disease Entered N/A Father Diagnosis Age At Onset Heart Attack Unknown Diabetes Unknown Social History Social History Element Codes Description Effective Dates Number of children Unknown 2 Sons, 5 grandchildren, 11 great grandchildren 01/08/2017 Marital status Unknown W crystal Wiley in 2017 06/06/[address]: 936397803 Never smoker 08/13/[address]: 028965504 Never drinks alcohol 08/13/2014 Allergies, Adverse Reactions, Alerts Substance Reaction Codes Entered Date Inactivated Date Status * NO KNOWN DRUG ABE RGIES Unknown 11/15/2014 No Inactive Date Active Past Medical History Illness Codes Condition Status Onset Date Resolved Date Essential (primary) hypertension ICD-9: 401.1 ICD-10: I10 Active 05/13/2017 Unknown Other skin changes ICD- 9: 782.9 ICD-10: R23.8 Active 08/28/2018 Unknown Type 2 diabetes kristy itus with hyperglycemia ICD-9: 250.02 ICD-10: E11.65 Active 09/16/2017 Unknown Trigger finger, righ t middle finger [...] ICD-9: 401.9 ICD-10: I10 Active 08/12/2014 Unknown Fever, unspecified ICD- 9: 780.60 ICD-10: [...] Dates Condition Status Essential (primary) hypertension ICD-9: 401.1 ICD-10: I10 05/13/2017 Active Other skin changes ICD- 9: 782.9 ICD-10: R23.8 08/28/2018 Active Type 2 diabetes kristy itus with hyperglycemia ICD-9: 250.02 ICD-10: E11.65 09/16/2017 Active Trigger finger, righ t middle finger [...] hypertension ICD-9: 401.9 ICD-10: I10 08/12/2014 Active Fever, unspecified ICD- 9: 780.60 ICD-10: [...] Instructions gabapentin 100 mg ca psule RxNorm: 335015 TAKE ONE CAPSULE BY M OUTH THREE TIMES A DAY 08/29/2018 11/02/2018 Ac tive Lantus U-100 Insulin 100 unit/mL subcutaneous solution RxNorm: 708130 20 Unit(s) SQ QAM 08/28/2018 04/24/2019 Active this is an update to her RX Benicar 40 mg tablet RxNorm: 615370 Tablet(s) TAKE ONE TABLET BY MOUTH DAILY 08/06/2018 07/31/2019 Ac tive FreeStyle Lite Strips RxNorm: USE STRIP TO TEST SEVEN TIMES A DAY 07/10/2018 08/11/2018 In active Zocor 20 mg tablet RxNorm: 518937 1 Tablet(s) PO daily 06/10/2018 06/04/2019 Active Benicar 40 mg tablet RxNorm: 129634 Tablet(s) TAKE ONE TABLET BY MOUTH DAILY 06/06/2018 06/25/2018 In active metoprolol tartrate 50 mg tablet RxNorm: 197628 TAKE ONE TABLET BY MO UTH TWICE A DAY 05/19/2018 05/13/2019 Ac tive hydrochlorothiazide 12.5 mg capsule RxNorm: 309711 TAKE ONE CAPSULE BY M OUTH DAILY 05/19/2018 05/13/2019 Ac tive Atacand 32 mg tablet RxNorm: 018387 1 Tablet(s) PO daily 05/12/2018 05/11/2018 Inactive This is to replace benicar Atacand 32 mg tablet RxNorm: 650028 1 Tablet(s) PO daily 05/12/2018 06/05/2018 Inactive This is to replace benicar Benicar 40 mg tablet RxNorm: 150882 TAKE ONE TABLET BY MOUTH DAILY 05/07/2018 05/06/2018 In active Benicar 40 mg tablet RxNorm: 592726 Tablet(s) TAKE ONE TABLET BY MOUTH DAILY 05/07/2018 05/11/2018 In active Zoloft 50 mg tablet RxNorm: 116564 TAKE ONE TABLET BY MOUTH DAILY 04/28/2018 04/22/2019 Ac tive gabapentin 100 mg ca psule RxNorm: 789628 TAKE ONE CAPSULE BY M OUTH THREE TIMES A DAY 04/09/2018 07/16/2018 Inactive Novolog U-100 Insuli n aspart 100 unit/mL subcutaneous solution RxNorm: 853096 SSI 5 units over 150 and for every additional 50 add 2 units Unit(s) SQ TID adjust as needed for glucose control 12/25/2017 07/22/2018 Inactive Cipro 500 mg tablet RxNorm: 528506 1 Tablet(s) PO BID 11/22/2017 12/01/2017 Inactive clotrimazole 1 % top ical cream RxNorm: 203275 1 Application TOP BID 11/22/2017 12/05/2017 Inactive Flagyl 500 mg tablet RxNorm: 554000 1 Tablet(s) PO TID 11/22/2017 12/01/2017 Inactive Lantus U-100 Insulin 100 unit/mL subcutaneous solution RxNorm: 436351 17 Unit(s) SQ QAM 11/11/2017 07/08/2018 Inactive Novolog U-100 Insuli n aspart 100 unit/mL subcutaneous solution RxNorm: 053940 SSI 5 units over 150 and for every additional 50 add 2 units Unit(s) SQ TID adjust as needed for glucose control 11/11/2017 12/24/2017 Inactive gabapentin 100 mg ca psule RxNorm: 598417 TAKE ONE CAPSULE BY M OUTH THREE TIMES A DAY 11/05/2017 02/11/2018 Inactive Kenalog 40 mg/mL fanny pension for injection RxNorm: 8642095 1 Milliliter(s) Inj 06/14/2017 06/14/2017 In active Flonase Allergy Reli ef 50 mcg/actuation nasal spray,suspension RxNorm: 2950408 2 [place] NASAL daily 06/14/2017 06/20/2017 Inactive doxycycline hyclate 100 mg tablet RxNorm: 966877 1 Tablet(s) PO BID 06/14/2017 06/20/2017 Inactive Lantus U-100 Insulin 100 unit/mL subcutaneous solution RxNorm: 018392 17 Unit(s) SQ QAM 06/10/2017 07/09/2017 Inactive gabapentin 100 mg ca psule RxNorm: 563771 TAKE ONE CAPSULE BY M OUTH THREE TIMES A DAY 05/23/2017 08/29/2017 Inactive Lantus U-100 Insulin 100 unit/mL subcutaneous solution RxNorm: 341762 15 Unit(s) SQ QAM 05/14/2017 06/09/2017 Inactive Novolog U-100 Insuli n aspart 100 unit/mL subcutaneous solution RxNorm: 388881 SSI 5 units over 150 and for every additional 50 add 2 units Unit(s) SQ TID adjust as needed for glucose control 04/24/2017 11/10/2017 Inactive Zocor 20 mg tablet RxNorm: 684002 1 Tablet(s) PO daily 04/05/2017 03/30/2018 Inactive Kenalog 40 mg/mL fanny pension for injection RxNorm: 7288745 1 Milliliter(s) Inj 03/26/2017 03/26/2017 In active Novolog 100 unit/mL subcutaneous solution RxNorm: 696689 SSI 5 units over 150 and for every additional 50 add 2 units Unit(s) SQ TID adjust as needed for glucose control 02/19/2017 04/23/2017 Inactive Lantus 100 unit/mL s ubcutaneous solution RxNorm: 955559 10 Unit(s) SQ QAM 02/19/2017 05/13/2017 In active ceftriaxone 500 mg s olution for injection RxNorm: 0416918 Inj 01/16/2017 01/16/2017 Inactive Lantus 100 unit/mL s ubcutaneous solution RxNorm: 202252 7 Unit(s) SQ QAM 01/16/2017 02/18/2017 In active Lantus 100 unit/mL s ubcutaneous solution RxNorm: 145981 10 Unit(s) SQ daily 01/08/2017 05/12/2017 In active gabapentin 100 mg ca psule RxNorm: 672570 TAKE ONE CAPSULE BY M OUTH THREE TIMES A DAY 11/30/2016 02/03/2017 Inactive Zoloft 50 mg tablet RxNorm: 260649 TAKE ONE TABLET BY MOUTH DAILY 10/30/2016 04/27/2017 In active Zocor 20 mg tablet RxNorm: 073972 1 Tablet(s) PO daily 10/16/2016 04/04/2017 Inactive stop the 40mg dose of zocor, start on 20 mg Lantus 100 unit/mL s ubcutaneous solution RxNorm: 885156 15 Unit(s) SQ daily 10/16/2016 01/07/2017 In active Novolog 100 unit/mL subcutaneous solution RxNorm: 073408 SSI 5 units over 150 and for every additional 50 add 2 units Unit(s) SQ TID adjust as needed for glucose control 10/16/2016 02/18/2017 Inactive prednisone 20 mg tablet RxNorm: 537240 1 Tablet(s) PO BID 10/01/2016 10/05/2016 Inactive Kenalog 40 mg/mL fanny pension for injection RxNorm: 2440451 1 Milliliter(s) Inj 09/27/2016 09/27/2016 In active Zithromax Z-Kishor 250 mg tablet RxNorm: 439845 1 Tablet(s) PO UD 09/27/2016 10/01/2016 Inactive ceftriaxone 500 mg s olution for injection RxNorm: 0357826 1 Milliliter(s) Inj 09/27/2016 09/27/2016 In active Augmentin 500 mg-125 mg tablet RxNorm: 595045 1 Tablet(s) PO BID 09/22/2016 09/26/2016 Inactive Tessalon Perles 100 mg capsule RxNorm: 231873 1 Capsule(s) PO Q8 FL N as needed 09/22/2016 04/27/2018 In active metoprolol tartrate 50 mg tablet RxNorm: 843410 TAKE ONE TABLET BY [facility] TWICE A DAY 08/02/2016 07/27/2017 Inactive Novolog 100 unit/mL subcutaneous solution RxNorm: 904053 10 Unit(s) SQ TID adj ust as needed for glucose control 07/19/2016 10/15/2016 Inactive Humalog 100 unit/mL subcutaneous solution RxNorm: 668963 INJECT 10 UNITS UNDER THE SKIN BEFORE EACH MEAL 07/16/2016 07/16/2016 Inactive Kenalog 40 mg/mL fanny pension for injection RxNorm: 7470274 1 Milliliter(s) Inj 07/09/2016 07/09/2016 In active ceftriaxone 500 mg s olution for injection RxNorm: 0749873 Inj 07/09/2016 07/09/2016 Inactive Lantus 100 unit/mL s ubcutaneous solution RxNorm: 763918 Unit(s) INJECT 13 UNI TS UNDER THE SKIN IN THE MORNING 06/06/2016 10/15/2016 Inactive Zoloft 50 mg tablet RxNorm: 448128 TAKE ONE TABLET BY MOUTH DAILY 04/27/2016 07/25/2016 In active Lantus 100 unit/mL s ubcutaneous solution RxNorm: 968990 INJECT 20 UNITS UNDER THE SKIN AT BEDTIME 04/27/2016 06/05/2016 Inactive amoxicillin 500 mg c apsule RxNorm: 211819 1 Capsule(s) PO TID 04/03/2016 04/12/2016 Inactive Zyrtec 10 mg tablet RxNorm: 6581278 1 Tablet(s) PO daily 04/03/2016 05/02/2016 Inactive hydrochlorothiazide 12.5 mg capsule RxNorm: 129669 TAKE ONE CAPSULE BY M OUTH DAILY 03/12/2016 12/06/2016 In active Benicar 40 mg tablet RxNorm: 607088 1 Tablet(s) PO daily 02/28/2016 04/27/2016 Inactive Benicar 40 mg tablet RxNorm: 873050 1 Tablet(s) PO daily 02/20/2016 02/27/2016 Inactive gabapentin 100 mg ca psule RxNorm: 581812 TAKE ONE CAPSULE BY M OUTH THREE TIMES A DAY 01/09/2016 04/16/2016 Inactive metoprolol tartrate 50 mg tablet RxNorm: 365262 TAKE ONE TABLET BY MO UTH TWICE A DAY 01/09/2016 04/07/2016 Inactive Humalog 100 unit/mL subcutaneous solution RxNorm: 346523 5-10 Unit(s) SQ AC 07/19/2015 07/18/2016 In active Lantus 100 unit/mL s ubcutaneous solution RxNorm: 673313 13 Unit(s) SQ QAM 07/19/2015 01/15/2017 In active Lantus 100 unit/mL s ubcutaneous solution RxNorm: 764241 20 Unit(s) SQ QHS 07/14/2015 07/18/2015 In active Zoloft 50 mg tablet RxNorm: 780642 1 Tablet(s) PO daily 05/19/2015 09/15/2015 Inactive Humalog 100 unit/mL subcutaneous solution RxNorm: 961206 10 Unit(s) SQ AC 05/11/2015 07/18/2015 In active metoprolol tartrate 50 mg tablet RxNorm: 613849 1 Tablet(s) PO BID 04/28/2015 08/25/2015 Inactive Lantus 100 unit/mL s ubcutaneous solution RxNorm: 173889 20 Unit(s) SQ QHS 04/28/2015 07/13/2015 In active Vesicare 10 mg tablet RxNorm: 040340 1 Tablet(s) PO QPM 03/22/2015 09/18/2015 Inactive hydrochlorothiazide 12.5 mg capsule RxNorm: 210158 1 Tablet(s) PO daily 01/04/2015 12/29/2015 In active gabapentin 100 mg ca psule RxNorm: 915359 1 Capsule(s) PO TID 11/29/2014 03/28/2015 Inactive [...] Date Active aspirin 81 mg tablet RxNorm: 181177 1 Tablet(s) PO daily No Start Date Active doxazosin 2 mg tablet RxNorm: 666961 1 Tablet(s) PO QHS No Start Date Active Fish Oil oral RxNorm: 7337330 oral No Start Date Active multivitamin capsule RxNorm: 1 Capsule(s) PO daily No Start Date Active Humalog 100 unit/mL subcutaneous solution RxNorm: 447870 Unit(s) SQ No Start Date 05/10/2015 Inactive Zoloft 50 mg tablet RxNorm: 681746 1 Tablet(s) PO daily No Start Date 05/18/2015 Inactive gabapentin 100 mg ca psule RxNorm: 253954 1 Capsule(s) PO daily No Start Date 11/28/2014 Inactive metoprolol tartrate 50 mg tablet RxNorm: 271629 1 Tablet(s) PO TID No Start Date 04/27/2015 Inactive Benicar 40 mg tablet RxNorm: 792731 1 Tablet(s) PO daily No Start Date 02/19/2016 Inactive hydrochlorothiazide 25 mg tablet RxNorm: 410227 1 Tablet(s) PO daily No Start Date 01/03/2015 Inactive Lantus 100 unit/mL s ubcutaneous solution RxNorm: 831646 13 Unit(s) SQ No Start Date 04/27/2015 Inactive Zocor 40 mg tablet RxNorm: 159934 1 Tablet(s) PO daily No Start Date 10/15/2016 Inactive Medication Administered Medication Codes Instruc tions Start Date Status Kenalog 40 mg/mL suspension for injection RxNorm: 5030881 1Milliliter 06/14/2017 N o longer Active Kenalog 40 mg/mL suspension for injection RxNorm: 6066797 1Milliliter 03/26/2017 N o longer Active ceftriaxone 500 mg solution for injection RxNorm: 2637407 01/16/2017 No longer A ctive Kenalog 40 mg/mL suspension for injection RxNorm: 3690450 1Milliliter 09/27/2016 N o longer Active ceftriaxone 500 mg solution for injection RxNorm: 9429505 1Milliliter 09/27/2016 N o longer Active Kenalog 40 mg/mL suspension for injection RxNorm: 1043540 1Milliliter 07/09/2016 N o longer Active ceftriaxone 500 mg solution for injection RxNorm: 7885494 07/09/2016 No longer A ctive Immunizations Vaccine Codes Date Status Influenza CVX: 141 12/28 completed Pneumococcal CVX: 133 completed Influenza CVX: 141 11/12 completed Pneumococcal (Adult) CVX: 133 02/15/2015 completed Influenza CVX: 141 12/10 completed Influenza CVX: 141 12/02 completed Pneumococcal CVX: 33 03/2013 completed Tetanus, Diptheria, Pertussis CVX: 113 12/02/2013 completed Tetanus/Diptheria CVX: 113 12/02/2013 completed Assessments Condition Codes Effectiv e Dates Essential (primary) hypertension ICD -10: I10 ICD-9: 401.1 08/28/2018 Type 2 diabetes mellitus with hyperglycemia ICD-10: E11.65 ICD-9: 250.02 08/28/2018 Other skin changes ICD-10: R23.8 ICD-9: [...] M54.31 ICD-9: 724.3 03/26/2017 Essential (primary) hypertension ICD -10: I10 ICD-9: 401.9 02/19/2017 Weakness ICD-10: R53.1 ICD-9: 780.79 01/16/2017 [...] Reason For Visit Effective Dates Notes hypertension 08/28/2018 diarrhea 04/28/2018 righ t hand [...] Code Item Item Code Result Date %Hba1C Raf072 % HbA1c 33641-4 7.8 % 08/13/2018 %Hba1C Fnn046 Gluc Ave 177 mg/dL 08/13/2018 Comp Metabolic Cfo244 NA 135 mEq/L 08/13/2018 Comp Metabolic Sje474 K 4.4 mEq/L 08/13/2018 Comp Metabolic Wyv505 CL 101 mEq/L 08/13/2018 Comp Metabolic Ybl441 CO2 27.0 mEq/L 08/13/2018 Comp Metabolic Pnc941 AN ION GAP 11 08/13/2018 Comp Metabolic Ads035 GL UCOSE 409 Result Verified By Repea t Analysis mg/dL 08/13/2018 Comp Metabolic Rjj822 Cr eat 0.8 mg/dL 08/13/2018 Comp Metabolic Stp077 eG FR 73 ml/min/1.73m2 08/13 Comp Metabolic Lcs899 BUN 23 mg/dL 08/13/2018 Comp Metabolic Kxj366 B/ C Ratio 29.1 Ratio 08/13/2018 Comp Metabolic Mxh263 CA LCIUM 9.0 mg/dL 08/13/2018 Comp Metabolic Mpm165 AL K PHOS 66 U/L 08/13/2018 Comp Metabolic Gfx242 T(SGOT) 16 U/L 08/13/2018 Comp Metabolic Udk027 AL T(SGPT) 11 U/L 08/13/2018 Comp Metabolic Puv706 BI LI T 0.5 mg/dL 08/13/2018 Comp Metabolic Jwj459 AL BUMIN 3.8 g/dL 08/13/2018 Comp Metabolic Kbj371 TP RO 5.8 g/dL 08/13/2018 Comp Metabolic Gnd669 GL OB 2.0 g/dL 08/13/2018 Comp Metabolic Ehc415 A/ G Ratio 1.9 Ratio 08/13/2018 Comp Metabolic Fkj411 Os mo 291 mOsmo 08/13/2018 Cbc With [...] 31.1 pg 08/13/2018 Cbc With Differential Ord2 [place]% 9.5 % 08/13/2018 Cbc With Differential Ord2 [...] 0.65 K/ul 08/13/2018 Cbc With Differential Ord2 [place] ABS# 0.4 K/ul 08/13/2018 Cbc With Differential Ord2 Eos ABS# 0.1 K/ul 08/13/2018 Cbc With Differential Ord2 Baso ABS# 0.0 K/ul 08/13/2018 Comp Metabolic Ohh347 NA 137 mEq/L 04/28/2018 Comp Metabolic Egs983 K 4.1 mEq/L 04/28/2018 Comp Metabolic Mmw157 CL 101 mEq/L 04/28/2018 Comp Metabolic Rdj779 CO2 28.0 mEq/L 04/28/2018 Comp Metabolic Cvw345 AN ION GAP 12 04/28/2018 Comp Metabolic Far265 GL UCOSE 195 mg/dL 04/28/2018 Comp Metabolic Zpc015 Cr eat 0.7 mg/dL 04/28/2018 Comp Metabolic Sws092 eG FR 81 ml/min/1.73m2 04/28 Comp Metabolic Knl621 BUN 24 mg/dL 04/28/2018 Comp Metabolic Xds414 B/ C Ratio 33.3 Ratio 04/28/2018 Comp Metabolic Quo815 CA LCIUM 9.4 mg/dL 04/28/2018 Comp Metabolic Rzr794 AL K PHOS 72 U/L 04/28/2018 Comp Metabolic Lub491 T(SGOT) 15 U/L 04/28/2018 Comp Metabolic Sak902 AL T(SGPT) 11 U/L 04/28/2018 Comp Metabolic Sko825 BI LI T 0.6 mg/dL 04/28/2018 Comp Metabolic Hwf214 AL BUMIN 4.0 g/dL 04/28/2018 Comp Metabolic Sns842 TP RO 6.1 g/dL 04/28/2018 Comp Metabolic Wri265 GL OB 2.1 g/dL 04/28/2018 Comp Metabolic Biz016 A/ G Ratio 2.0 Ratio 04/28/2018 Comp Metabolic Qry805 Os mo 283 mOsmo 04/28/2018 %Hba1C Aau091 % HbA1c 73197-9 7.5 % 04/28/2018 %Hba1C Uqo646 Gluc Ave 169 mg/dL 04/28/2018 %Hba1C Yje846 % HbA1c 90445-0 7.1 % 12/25/2017 %Hba1C Tkl300 Gluc Ave 157 mg/dL 12/25/2017 Comp Metabolic Mju705 NA 139 mEq/L 12/25/2017 Comp Metabolic Jee937 K 4.1 mEq/L 12/25/2017 Comp Metabolic Qfx763 CL 104 mEq/L 12/25/2017 Comp Metabolic Nhc398 CO2 28.0 mEq/L 12/25/2017 Comp Metabolic Erz095 AN ION GAP 11 12/25/2017 Comp Metabolic Jfw222 GL UCOSE 129 mg/dL 12/25/2017 Comp Metabolic Ert665 Cr eat 0.7 mg/dL 12/25/2017 Comp Metabolic Eyy205 eG FR 83 ml/min/1.73m2 12/25 Comp Metabolic Mxl615 BUN 22 mg/dL 12/25/2017 Comp Metabolic Adq582 B/ C Ratio 31.0 Ratio 12/25/2017 Comp Metabolic Ywp703 CA LCIUM 9.4 mg/dL 12/25/2017 Comp Metabolic Kho776 AL K PHOS 70 U/L 12/25/2017 Comp Metabolic Rlc061 T(SGOT) 16 U/L 12/25/2017 Comp Metabolic Idv754 AL T(SGPT) 12 U/L 12/25/2017 Comp Metabolic Luv347 BI LI T 0.5 mg/dL 12/25/2017 Comp Metabolic Kzy641 AL BUMIN 4.2 g/dL 12/25/2017 Comp Metabolic Uot392 TP RO 6.1 g/dL 12/25/2017 Comp Metabolic Erb648 GL OB 1.9 g/dL 12/25/2017 Comp Metabolic Lnr355 A/ G Ratio 2.1 Ratio 12/25/2017 Comp Metabolic Sfs546 Os mo 283 mOsmo 12/25/2017 %Hba1C Tvf692 % HbA1c 50250-5 8.0 % 05/13/2017 %Hba1C Fiu048 Gluc Ave 183 mg/dL 05/13/2017 Comp Metabolic Vbo326 NA 135 mEq/L 05/13/2017 Comp Metabolic Zdr961 K 3.8 mEq/L 05/13/2017 Comp Metabolic Frf166 CL 99 mEq/L 05/13/2017 Comp Metabolic Nbf279 CO2 29.0 mEq/L 05/13/2017 Comp Metabolic Ejo945 AN ION GAP 11 05/13/2017 Comp Metabolic Zmi297 GL UCOSE 155 mg/dL 05/13/2017 Comp Metabolic Idh368 Cr eat 0.7 mg/dL 05/13/2017 Comp Metabolic Qtc261 eG FR 90 ml/min/1.73m2 05/13 Comp Metabolic Kqg839 BUN 18 mg/dL 05/13/2017 Comp Metabolic Fif305 B/ C Ratio 27.3 Ratio 05/13/2017 Comp Metabolic Ppq627 CA LCIUM 8.9 mg/dL 05/13/2017 Comp Metabolic Xtn745 AL K PHOS 90 U/L 05/13/2017 Comp Metabolic Udh066 T(SGOT) 18 U/L 05/13/2017 Comp Metabolic Vga207 AL T(SGPT) 15 U/L 05/13/2017 Comp Metabolic Zni611 BI LI T 0.5 mg/dL 05/13/2017 Comp Metabolic Qme402 AL BUMIN 4.0 g/dL 05/13/2017 Comp Metabolic Szk093 TP RO 5.9 g/dL 05/13/2017 Comp Metabolic Xfu971 GL OB 1.9 g/dL 05/13/2017 Comp Metabolic Wdw200 A/ G Ratio 2.1 Ratio 05/13/2017 Comp Metabolic Sdt340 Os mo 275 mOsmo 05/13/2017 Urine Culture Ucult Prel iminary NO Growth Day 1 01/18 Urine Culture Ucult Comp lete NO Growth Day 2 01/18 Free T4 Qub060 FREE T4 1.13 ng/dL 10/09/2016 Tsh Ord6 [...] 31.5 pg 10/08/2016 Cbc With Differential Ord2 [place]% 4.0 % 10/08/2016 Cbc With Differential Ord2 [...] 0.96 K/ul 10/08/2016 Cbc With Differential Ord2 [place] ABS# 0.4 K/ul 10/08/2016 Cbc With Differential Ord2 Eos ABS# 0.0 K/ul 10/08/2016 Cbc With Differential Ord2 Baso ABS# 0.0 K/ul 10/08/2016 Comp Metabolic Xrs570 NA 135 mEq/L 10/08/2016 Comp Metabolic Ymt140 K 4.3 mEq/L 10/08/2016 Comp Metabolic Cku008 CL 98 mEq/L 10/08/2016 Comp Metabolic Lii044 CO2 22.0 mEq/L 10/08/2016 Comp Metabolic Wvg178 AN ION GAP 19 10/08/2016 Comp Metabolic Tkd388 GL UCOSE 400 mg/dL 10/08/2016 Comp Metabolic Kms819 Cr eat 0.7 mg/dL 10/08/2016 Comp Metabolic Yzl882 eG FR 79 ml/min/1.73m2 10/08 Comp Metabolic Cva227 BUN 27 mg/dL 10/08/2016 Comp Metabolic Udp732 B/ C Ratio 36.5 Ratio 10/08/2016 Comp Metabolic Jwm426 CA LCIUM 9.1 mg/dL 10/08/2016 Comp Metabolic Egw706 AL K PHOS 65 U/L 10/08/2016 Comp Metabolic Fae125 T(SGOT) 28 U/L 10/08/2016 Comp Metabolic Omv276 AL T(SGPT) 24 U/L 10/08/2016 Comp Metabolic Yrk644 BI LI T 0.7 mg/dL 10/08/2016 Comp Metabolic Zoy732 AL BUMIN 3.8 g/dL 10/08/2016 Comp Metabolic Mse577 TP RO 6.0 g/dL 10/08/2016 Comp Metabolic Qye634 GL OB 2.2 g/dL 10/08/2016 Comp Metabolic Zce370 A/ G Ratio 1.7 Ratio 10/08/2016 Comp Metabolic Yrf687 Os mo 292 mOsmo 10/08/2016 %Hba1C Wzn759 % HbA1c 48079-2 7.0 % 10/08/2016 %Hba1C Sij310 Gluc Ave 154 mg/dL 10/08/2016 Microalbumin Gow856 Micr oAlb <0.7 mg/dL 10/08/2016 Lipid Ord30 [...] OK? TNP:Duplicate Order 04/03/2016 C A/B FLU 0055752 Influe nza A Scr Negative 04/03/2016 C A/B FLU 4802446 Influe nza B Scr Negative 04/03/2016 Comp Metabolic Llx648 NA 138 mEq/L 09/15/2015 Comp Metabolic Ukg929 K 4.4 mEq/L 09/15/2015 Comp Metabolic Mrk474 CL 103 mEq/L 09/15/2015 Comp Metabolic Rip742 CO2 29.0 mEq/L 09/15/2015 Comp Metabolic Sgf394 AN ION GAP 10 09/15/2015 Comp Metabolic Lqv610 GL UCOSE 156 mg/dL 09/15/2015 Comp Metabolic Uqo343 Cr eat 0.7 mg/dL 09/15/2015 Comp Metabolic Mgr253 eG FR 79 ml/min/1.73m2 09/14 Comp Metabolic Aot690 BUN 23 mg/dL 09/15/2015 Comp Metabolic Ybz117 B/ C Ratio 31.1 Ratio 09/15/2015 Comp Metabolic Stt051 CA LCIUM 9.1 mg/dL 09/15/2015 Comp Metabolic Ihq940 AL K PHOS 58 U/L 09/15/2015 Comp Metabolic Ecq676 T(SGOT) 19 U/L 09/15/2015 Comp Metabolic Owf496 AL T(SGPT) 11 U/L 09/15/2015 Comp Metabolic Bpd539 BI LI T 0.6 mg/dL 09/15/2015 Comp Metabolic Viv873 AL BUMIN 3.9 g/dL 09/15/2015 Comp Metabolic Njh703 TP RO 5.8 g/dL 09/15/2015 Comp Metabolic Ncm012 GL OB 1.9 g/dL 09/15/2015 Comp Metabolic Buc225 A/ G Ratio 2.1 Ratio 09/15/2015 Comp Metabolic Mff975 Os mo 283 mOsmo 09/15/2015 Cbc With [...] 30.5 pg 09/15/2015 Cbc With Differential Ord2 [place]% 10.2 % 09/15/2015 Cbc With Differential Ord2 [...] 0.86 K/ul 09/15/2015 Cbc With Differential Ord2 [place] ABS# 0.5 K/ul 09/15/2015 Cbc With Differential Ord2 Eos ABS# 0.1 K/ul 09/15/2015 Cbc With Differential Ord2 Baso ABS# 0.0 K/ul 09/15/2015 Tsh Ord6 hTSH II 0.76 uIU/mL 09/15/2015 Lipid Ord30 CHOL 139 mg/dL 09/15/2015 Lipid Ord30 HDL 57.0 mg/dl 09/15/2015 Lipid Ord30 TRIG 76 mg/dL 09/15/2015 Lipid Ord30 LDL 67 mg/dL 09/15/2015 Lipid Ord30 C/HDL 2.4 Ratio 09/15/2015 %Hba1C Cbd455 % HbA1c 88840-5 6.6 % 09/15/2015 %Hba1C Blx313 Gluc Ave 143 mg/dL 09/15/2015 Tsh Ord6 hTSH II 0.68 uIU/mL 06/02/2015 %Hba1C Wlc468 % HbA1c 74746-8 6.5 % 06/02/2015 %Hba1C Mam075 Gluc Ave 140 mg/dL 06/02/2015 Comp Metabolic Frm508 NA 139 mEq/L 06/02/2015 Comp Metabolic Rgn161 K 4.5 mEq/L 06/02/2015 Comp Metabolic Cgd938 CL 104 mEq/L 06/02/2015 Comp Metabolic Dwu489 CO2 25.0 mEq/L 06/02/2015 Comp Metabolic Fwo933 AN ION GAP 15 06/02/2015 Comp Metabolic Eeb135 GL UCOSE 123 mg/dL 06/02/2015 Comp Metabolic Rpt808 Cr eat 0.7 mg/dL 06/02/2015 Comp Metabolic Uvl690 eG FR 92 ml/min/1.73m2 06/01 Comp Metabolic Akd041 BUN 21 mg/dL 06/02/2015 Comp Metabolic Tya065 B/ C Ratio 32.3 Ratio 06/02/2015 Comp Metabolic Zps340 CA LCIUM 9.5 mg/dL 06/02/2015 Comp Metabolic Oeg615 AL K PHOS 66 U/L 06/02/2015 Comp Metabolic Vnh198 T(SGOT) 19 U/L 06/02/2015 Comp Metabolic Ojg617 AL T(SGPT) 13 U/L 06/02/2015 Comp Metabolic Xxu720 BI LI T 0.5 mg/dL 06/02/2015 Comp Metabolic Epe894 AL BUMIN 4.0 g/dL 06/02/2015 Comp Metabolic Rqq673 TP RO 6.3 g/dL 06/02/2015 Comp Metabolic Zxz090 GL OB 2.3 g/dL 06/02/2015 Comp Metabolic Odn551 A/ G Ratio 1.7 Ratio 06/02/2015 Comp Metabolic Dzp276 Os mo 282 mOsmo 06/02/2015 %Hba1C Khw980 % HbA1c 90330-0 6.7 % 02/17/2015 %Hba1C Vfl033 Gluc Ave 146 mg/dL 02/17/2015 Comp Metabolic Zdt062 NA 133 mEq/L 02/17/2015 Comp Metabolic Lzl827 K 4.3 mEq/L 02/17/2015 Comp Metabolic Cet283 CL 99 mEq/L 02/17/2015 Comp Metabolic Lsu701 CO2 27.0 mEq/L 02/17/2015 Comp Metabolic Fzo999 AN ION GAP 11 02/17/2015 Comp Metabolic Wxr841 GL UCOSE 239 mg/dL 02/17/2015 Comp Metabolic Yjj908 Cr eat 0.7 mg/dL 02/17/2015 Comp Metabolic Twa336 eG FR 79 ml/min/1.73m2 02/17 Comp Metabolic Ust569 BUN 24 mg/dL 02/17/2015 Comp Metabolic Cjp911 B/ C Ratio 32.4 Ratio 02/17/2015 Comp Metabolic Pmh659 CA LCIUM 9.1 mg/dL 02/17/2015 Comp Metabolic Boh201 AL K PHOS 75 U/L 02/17/2015 Comp Metabolic Ubn384 T(SGOT) 18 U/L 02/17/2015 Comp Metabolic Jfb370 AL T(SGPT) 11 U/L 02/17/2015 Comp Metabolic Atu307 BI LI T 0.6 mg/dL 02/17/2015 Comp Metabolic Wwn320 AL BUMIN 4.2 g/dL 02/17/2015 Comp Metabolic Lvv678 TP RO 6.2 g/dL 02/17/2015 Comp Metabolic Vti724 GL OB 2.0 g/dL 02/17/2015 Comp Metabolic Kgk504 A/ G Ratio 2.1 Ratio 02/17/2015 Comp Metabolic Knt775 Os mo 278 mOsmo 02/17/2015 %Hba1C Yvu134 % HbA1c 90775-9 6.7 % 11/15/2014 %Hba1C Pht052 Gluc Ave 146 mg/dL 11/15/2014 Comp Metabolic Ptm132 NA 134 mEq/L 11/15/2014 Comp Metabolic Jed221 K 4.5 mEq/L 11/15/2014 Comp Metabolic Gei833 CL 101 mEq/L 11/15/2014 Comp Metabolic Qzf723 CO2 27.0 mEq/L 11/15/2014 Comp Metabolic Uax251 AN ION GAP 11 11/15/2014 Comp Metabolic Fbo139 GL UCOSE 293 mg/dL 11/15/2014 Comp Metabolic Oab028 Cr eat 0.7 mg/dL 11/15/2014 Comp Metabolic Gkd761 eG FR 87 ml/min/1.73m2 11/15 Comp Metabolic Nlm831 BUN 20 mg/dL 11/15/2014 Comp Metabolic Zlg469 B/ C Ratio 29.4 Ratio 11/15/2014 Comp Metabolic Him919 CA LCIUM 9.0 mg/dL 11/15/2014 Comp Metabolic Woo980 AL K PHOS 67 U/L 11/15/2014 Comp Metabolic Vug296 T(SGOT) 17 U/L 11/15/2014 Comp Metabolic Sic136 AL T(SGPT) 10 U/L 11/15/2014 Comp Metabolic Jga127 BI LI T 0.6 mg/dL 11/15/2014 Comp Metabolic Wru485 AL BUMIN 4.0 g/dL 11/15/2014 Comp Metabolic Fhh172 TP RO 6.0 g/dL 11/15/2014 Comp Metabolic Aye230 GL OB 2.0 g/dL 11/15/2014 Comp Metabolic Rsb524 A/ G Ratio 2.0 Ratio 11/15/2014 Comp Metabolic Tgl557 Os mo 282 mOsmo 11/15/2014 Review of Systems System Result Effective Dates Constitutional No recent illness 08/28/2018 Constitutional No [...] dentition 08/28/2018 None Full Exam - General 1995 Ears/Nose/Throat oral cavity/pharynx/larynx Overall: oral mucosa clear 08/28/2018 None Full Exam - General 1995 Ears/Nose/Throat oral cavity/pharynx/larynx Overall: oropharyngeal mucosa clear 08/28/2018 None Full Exam - General 1994 Ears/Nose/Throat oral cavity/pharynx/larynx Overall: hypopharynx benign 08/28/2018 None Full Exam - General 1995 Ears/Nose/Throat oral cavity/pharynx/larynx Overall: no masses 08/28/2018 [...] dentition 11/22/2017 None Full Exam - General 1995 Ears/Nose/Throat [...] General 1994 Ears/Nose/Throat lips/teeth/gingiva Overall: benign lips 09/09/2017 None Full Exam - General 1994 Ears/Nose/Throat lips/teeth/gingiva Overall: normal dentition 09/09/2017 None Full Exam - General 1994 Ears/Nose/Throat oral cavity/pharynx/larynx Overall: oral mucosa clear 09/09/2017 None Full Exam - General 1995 Ears/Nose/Throat oral cavity/pharynx/larynx Overall: oropharyngeal mucosa clear 09/09/2017 None Full Exam - General 1995 Ears/Nose/Throat oral cavity/pharynx/larynx Overall: hypopharynx benign 09/09/2017 [...] clear 07/09/2016 None Full Exam - General 1995 Ears/Nose/Throat [...] GLUC MONITOR CONT PH YS I&R CPT-4: 72073 09/16/2017 GLUCOSE MONITORING CONT CPT-4: 04533 07/16/2017 TRIAMCINOLONE ACET I [place] NOS CPT-4: J3301 06/14/2017 DRAIN/INJECT JOINT/B URSA CPT-4: 54624 03/26/2017 TRIAMCINOLONE ACET I NJ NOS CPT-4: J3301 03/26/2017 URINALYSIS NONAUTO W /O SCOPE CPT-4: 52850 01/16/2017 THER/PROPH/DIAG INJ SC/IM CPT-4: 97806 01/16/2017 ROCEPHIN, PER 250 MG CPT-4: J0696 01/16/2017 DESTRUCT PREMALG LESION CPT-4: 14336 10/16/2016 TRIAMCINOLONE ACET I [place] NOS CPT-4: J3301 09/27/2016 ROCEPHIN, PER 250 MG CPT-4: J0696 09/27/2016 PPPS, SUBSEQ VISIT CPT- 4: G0439 07/10/2016 THER/PROPH/DIAG INJ SC/IM CPT-4: 09452 07/09/2016 TRIAMCINOLONE ACET I [place] NOS CPT-4: J3301 07/09/2016 ROCEPHIN, PER 250 MG CPT-4: J0696 07/09/2016 ADMIN PNEUMOCOCCAL V ACCINE SNOMED CT: 24703086 CPT-4: G0009 02/15/2015 PNEUMOCOCCAL VACC 13 LIMA IM Formatting Model/CDA Sections, Assigned to SNOMED CT: 26970689 CPT-4: 60100Rbkuwdp 02/15/2015 ADMIN INFLUENZA VIRU S VAC CPT-4: G0008 12/10/2014 FLU VACC 4 LIMA 3 YRS PLUS IM Formatting Model/CDA Sections, Assigned to SNOMED CT: 55267820 CPT-4: 05291Bbdyddj 12/10/2014 Vital Signs Date Vital 08/28/2018 Blood Pressure 1: 120/62 Code: 8480-6 BMI: 24.1 Code: 66878-2 Heart Rate 1: 65 bpm Height: 5'2" SpO2: 96% Weight: 132 lbs 04/28/2018 Blood Pressure 1: 110/58 Code: 8480-6 BMI: 24.0 Code: 02094-5 Heart Rate 1: 56 bpm Height: 5'2" Respiratory Rate: 18 bpm SpO2: 98% Weight: 131 lbs 12/25/2017 Blood Pressure 1: 140/52 Code: 8480-6 BMI: 24.0 Code: 93439-8 Heart Rate 1: 64 bpm Height: 5'2" Respiratory Rate: 18 bpm SpO2: 96% Weight: 131 lbs 11/22/2017 Blood Pressure 1: 128/54 Code: 8480-6 BMI: 23.4 Code: 41735-3 Heart Rate 1: 62 bpm Height: 5'2" SpO2: 97% Weight: 128 lbs 10/07/2017 Blood Pressure 1: 148/68 Code: 8480-6 BMI: 23.2 Code: 89086-7 Heart Rate 1: 68 bpm Height: 5'2" SpO2: 98% Weight: 127 lbs 09/16/2017 Blood Pressure 1: 134/80 Code: 8480-6 BMI: 22.5 Code: 13597-0 Heart Rate 1: 86 bpm Height: 5'2" SpO2: 98% Weight: 123 lbs 09/09/2017 Blood Pressure 1: 150/66 Code: 8480-6 Blood Pressure 1: 138/72 Code: 8480-6 BMI: 22.9 Code: 94180-2 Heart Rate 1: 81 bpm Height: 5'2" SpO2: 98% Weight: 125 lbs 07/16/2017 Blood Pressure 1: 144/68 Code: 8480-6 BMI: 21.9 Code: 29114-1 Heart Rate 1: 73 bpm Height: 5'2" SpO2: 98% Weight: 120 lbs 06/14/2017 Blood Pressure 1: 132/64 Code: 8480-6 BMI: 22.3 Code: 99032-2 Heart Rate 1: 77 bpm Height: 5'2" SpO2: 98% Temperature: 37.0 (C ) / 98.6 (F) Weight: 122 lbs 06/10/2017 Blood Pressure 1: 134/64 Code: 8480-6 BMI: 22.5 Code: 75256-5 Heart Rate 1: 78 bpm Height: 5'2" SpO2: 95% Weight: 123 lbs 05/13/2017 Blood Pressure 1: 140/66 Code: 8480-6 BMI: 21.6 Code: 33441-8 Heart Rate 1: 80 bpm Height: 5'2" SpO2: 98% Weight: 118 lbs 03/26/2017 Blood Pressure 1: 150/78 Code: 8480-6 BMI: 23.2 Code: 32136-4 Heart Rate 1: 73 bpm Height: 5'2" SpO2: 99% Weight: 127 lbs 02/19/2017 Blood Pressure 1: 126/64 Code: 8480-6 BMI: 22.9 Code: 34478-6 Heart Rate 1: 74 bpm Height: 5'2" SpO2: 99% Weight: 125 lbs 01/16/2017 Blood Pressure 1: 136/68 Code: 8480-6 Heart Rate 1: 97 bpm Height: 5'2" Respiratory Rate: 16 bpm Temperature: 37.5 (C ) / 99.5 (F) Weight: 01/08/2017 Blood Pressure 1: 144/60 Code: 8480-6 BMI: 23.0 Code: 66068-0 Heart Rate 1: 71 bpm Height: 5'2" SpO2: 96% Weight: 126 lbs 11/21/2016 Blood Pressure 1: 150/62 Code: 8480-6 BMI: 23.2 Code: 94252-7 Heart Rate 1: 73 bpm Height: 5'2" SpO2: 94% Weight: 127 lbs 10/16/2016 Blood Pressure 1: 142/82 Code: 8480-6 BMI: 22.9 Code: 32530-7 Heart Rate 1: 80 bpm Height: 5'2" SpO2: 96% Weight: 125 lbs 10/08/2016 Blood Pressure 1: 150/72 Code: 8480-6 Heart Rate 1: 65 bpm Height: 5'2" SpO2: 98% 10/01/2016 Blood Pressure 1: 152/76 Code: 8480-6 Heart Rate 1: 69 bpm Height: 5'2" SpO2: 97% 09/27/2016 Blood Pressure 1: 122/64 Code: 8480-6 BMI: 23.3 Code: 28910-0 Heart Rate 1: 80 bpm Height: 5'2" SpO2: 98% Weight: 127 lbs 8 oz 07/19/2016 Blood Pressure 1: 118/68 Code: 8480-6 BMI: 23.0 Code: 09576-4 Heart Rate 1: 62 bpm Height: 5'2" SpO2: 97% Weight: 126 lbs 07/10/2016 Blood Pressure 1: 132/64 Code: 8480-6 BMI: 23.4 Code: 82300-9 Heart Rate 1: 82 bpm Height: 5'2" SpO2: 98% Waist Measure (cm): 76 cm Weight: 128 lbs 07/09/2016 Blood Pressure 1: 132/64 Code: 8480-6 BMI: 23.4 Code: 70349-5 Heart Rate 1: 82 bpm Height: 5'2" SpO2: 98% Temperature: 37.2 (C ) / 98.9 (F) Weight: 128 lbs 06/06/2016 Blood Pressure 1: 144/66 Code: 8480-6 BMI: 23.4 Code: 41600-6 Heart Rate 1: 77 bpm Height: 5'2" SpO2: 97% Weight: 128 lbs 04/03/2016 Blood Pressure 1: 164/70 Code: 8480-6 BMI: 24.5 Code: 54437-1 Heart Rate 1: 80 bpm Height: 5'2" SpO2: 98% Weight: 134 lbs 12/26/2015 Blood Pressure 1: 130/72 Code: 8480-6 BMI: 24.1 Code: 97490-2 Heart Rate 1: 63 bpm Height: 5'2" SpO2: 98% Weight: 132 lbs 09/19/2015 Blood Pressure 1: 140/68 Code: 8480-6 BMI: 24.2 Code: 71222-1 Heart Rate 1: 96 bpm Height: 5'2" SpO2: 98% Weight: 132 lbs 8 oz 07/19/2015 Blood Pressure 1: 128/64 Code: 8480-6 BMI: 24.2 Code: 20337-1 Heart Rate 1: 66 bpm Height: 5'2" SpO2: 98% Weight: 132 lbs 8 oz 03/22/2015 Blood Pressure 1: 128/60 Code: 8480-6 BMI: 24.0 Code: 73653-9 Heart Rate 1: 57 bpm Height: 5'2" SpO2: 98% Weight: 131 lbs 02/15/2015 Blood Pressure 1: 132/56 Code: 8480-6 BMI: 23.8 Code: 15277-6 Heart Rate 1: 70 bpm Height: 5'2" SpO2: 98% Weight: 130 lbs 11/15/2014 Blood Pressure 1: 120/78 Code: 8480-6 BMI: 24.1 Code: 48512-4 Heart Rate 1: 79 bpm Height: 5'2" SpO2: 98% Weight: 132 lbs 08/13/2014 Blood Pressure 1: 140/60 Code: 8480-6 BMI: 24.0 Code: 31848-7 Heart Rate 1: 74 bpm Height: 5'2" Weight: 131 lbs Functional Status No Functional Status data History of Present Illness Symptom Name Status Resu lt Effective Date Notes Onset and Resolution o ngoing 08/28/2018 None [...] er meals 04/28/2018 None Location in the suprap ubic area 04/28/2018 None Quality aching 04/28/2018 None [...] Factors activity 07/16/2017 None hypertension Quality whitney mattson hypertension 07/16/2017 None hypertension Onset and Resolution [...] nausea 10/16/2016 None cough Location in the th roat 10/16/2016 None cough Quality productive 10/16/2016 None cough Onset and Resolution ongoing 10/16/2016 None cough Onset of Symptom 1 months ago 10/16/2016 None cough Pertinent Findings Denies fever 10/16/2016 None cough Location in the th roat 10/08/2016 None cough Quality acute 10/08/2016 [...] resolved 10/08/2016 None cough Location in the th roat 10/01/2016 None cough Quality acute 10/01/2016 [...] Encounters Encounter Performer Loca tion Codes Date ([id number]) 73070 EST. P ATIENT, LEVEL IV Diagnosis: Type 2 diabetes mellitus with hyperglycemia[ICD10: E11.65] Diagnosis: Essential (primary) hypertension[ICD10: I10] Diagnosis: Other skin changes[ICD10: R23.8] [facility] CPT-4: 71709 08/28/2018 ([id number]) 25544 EST. P ATIENT, LEVEL IV Diagnosis: Essential (primary) hypertension[ICD10: I10] Diagnosis: Type 2 diabetes mellitus with hyperglycemia[ICD10: E11.65] Diagnosis: Trigger finger, right middle finger[ICD10: M65.331] Dominique Reicnos MD, C CPT-4: 07664 04/28/2018 ([id number]) 83425 EST. P ATIENT, LEVEL IV Diagnosis: Type 2 diabetes mellitus with hyperglycemia[ICD10: E11.65] Diagnosis: Essential (primary) hypertension[ICD10: I10] Diagnosis: Localized edema[ICD10: R60.0] Dominique Recinos MD, [facility] CPT-4: 41504 12/25/2017 ([id number]) 93206 EST. P ATIENT, LEVEL IV Diagnosis: Diverticulitis of large intestine without perforation or abscess without bleeding[ICD10: K57.32] Diagnosis: Nausea[ICD10: R11.0] Maile Recinos MD, [facility] CPT-4: 76801 11/22/2017 ([id number]) Miscellaneou s no charge Diagnosis: Laceration without foreign body of right forearm, subsequent encounter[ICD10: S51.811D] Dominique Recinos MD, [facility] CPT-4: 70996 10/16/2017 ([id number]) Miscellaneou s no charge Diagnosis: Laceration without foreign body of right forearm, subsequent encounter[ICD10: S51.811D] Dominique Recinos MD, [facility] CPT-4: 27206 10/14/2017 ([id number]) Miscellaneou s no charge Diagnosis: Laceration without foreign body of right forearm, subsequent encounter[ICD10: S51.811D] Dominique Recinos MD, [facility] CPT-4: 29892 10/09/2017 ([id number]) 10751 EST. P ATIENT, LEVEL III Diagnosis: Type 2 diabetes mellitus with hyperglycemia[ICD10: E11.65] Dominique Recinos MD, C CPT-4: 48350 10/07/2017 ([id number]) 81335 EST. P ATIENT, LEVEL III Diagnosis: Type 2 diabetes mellitus with hyperglycemia[ICD10: E11.65] Fatmata Recinos MD, [facility] CPT-4: 84327 09/16/2017 ([id number]) 25323 EST. P ATIENT, LEVEL III Diagnosis: Essential (primary) hypertension[ICD10: I10] Dominique Recinos MD[facility] C CPT-4: 14858 09/09/2017 ([id number]) Vickicellmary lou s no charge Diagnosis: Type 1 diabetes mellitus without complications[ICD10: E10.9] Fatmata Recinos MD, [facility] CPT-4: 03089 07/22/2017 ([id number]) 89353 EST. P ATIENT, LEVEL IV Diagnosis: Type 1 diabetes mellitus without complications[ICD10: E10.9] Diagnosis: Mixed hyperlipidemia[ICD10: E78.2] Diagnosis: Essential (primary) hypertension[ICD10: I10] Dominique Recinos MD, [facility] CPT-4: 88848 07/16/2017 ([id number]) 59412 EST. P ATIENT, LEVEL III Diagnosis: Cough[ICD10: R05] Diagnosis: Acute recurrent maxillary sinusitis[ICD10: J01.01] Maile Recinos MD, [facility] CPT-4: 32146 06/14/2017 ([id number]) 82890 EST. P ATIENT, LEVEL IV Diagnosis: Type 1 diabetes mellitus without complications[ICD10: E10.9] Diagnosis: Essential (primary) hypertension[ICD10: I10] Dominique Recinos MD, C CPT-4: 56472 06/10/2017 ([id number]) 63365 EST. P ATIENT, LEVEL IV Diagnosis: Essential (primary) hypertension[ICD10: I10] Diagnosis: Type 1 diabetes mellitus without complications[ICD10: E10.9] Dominique Recinos MD, [facility] CPT-4: 45932 05/13/2017 08490 EST. PATIENT, LEVEL III Diagnosis: Sciatica, right side[ICD10: M54.31] Diagnosis: Low back pain[ICD10: M54.5] Fatmata Recinos MD, [facility] CPT-4: 12976 03/26/2017 ([id number]) 95097 EST. P ATIENT, LEVEL III Diagnosis: Type 1 diabetes mellitus without complications[ICD10: E10.9] Diagnosis: Essential (primary) hypertension[ICD10: I10] Dominique Recinos MD, C CPT-4: 36236 02/19/2017 ([id number]) 18197 EST. P ATIENT, LEVEL IV Diagnosis: Fever presenting with conditions classified elsewhere[ICD10: R50.81] Diagnosis: Weakness[ICD10: R53.1] Diagnosis: Frequency of micturition[ICD10: R35.0] Diagnosis: Type 1 diabetes mellitus without complications[ICD10: E10.9] Dominique Recinos MD, [facility] CPT-4: 55467 01/16/2017 ([id number]) 73325 EST. P ATIENT, LEVEL IV Diagnosis: Type 1 diabetes mellitus without complications[ICD10: E10.9] Diagnosis: Essential (primary) hypertension[ICD10: I10] Dominique Recinos MD, [facility] CPT-4: 98299 01/08/2017 ([id number]) 62571 EST. P ATIENT, LEVEL IV Diagnosis: Essential (primary) hypertension[ICD10: I10] Diagnosis: Type 1 diabetes mellitus without complications[ICD10: E10.9] Dominique Recinos MD, [facility] CPT-4: 45371 11/21/2016 ([id number]) 08067 EST. 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 P ATIENT, LEVEL III Diagnosis: Chronic obstructive pulmonary disease with (acute) exacerbation[ICD10: J44.1] Diagnosis: Cough[ICD10: R05] Maile Recinos MD, [facility] CPT-4: 92173 10/08/2016 ([id number]) Miscellaneou s no charge Diagnosis: Cough[ICD10: R05] Diagnosis: Chronic obstructive pulmonary disease with (acute) exacerbation[ICD10: J44.1] Maile Recinos MD, [facility] CPT-4: 89222 10/01/2016 ([id number]) 49922 EST. P ATIENT, LEVEL III Diagnosis: Cough[ICD10: R05] Diagnosis: Acute bronchitis, unspecified[ICD10: J20.9] [facility] CPT-4: 27396 09/27/2016 ([id number]) 96481 EST. P ATIENT, LEVEL III Diagnosis: Type 1 diabetes mellitus without complications[ICD10: E10.9] Dominique Recinos MD, [facility] CPT-4: 55111 07/19/2016 ([id number]) 14300 EST. P ATIENT, LEVEL IV Diagnosis: Essential (primary) hypertension[ICD10: I10] Diagnosis: Type 1 diabetes mellitus without complications[ICD10: E10.9] Diagnosis: Other allergic rhinitis[ICD10: J30.89] Diagnosis: Acute laryngopharyngitis[ICD10: J06.0] Dominique Recinos MD, [facility] CPT-4: 08751 07/09/2016 ([id number]) 09050 EST. P ATIENT, LEVEL IV Diagnosis: Essential (primary) hypertension[ICD10: I10] Diagnosis: Type 1 diabetes mellitus without complications[ICD10: E10.9] Diagnosis: Mixed hyperlipidemia[ICD10: E78.2] Dominique Recinos MD, [facility] CPT- 4: 98066 06/06/2016 33128 EST. PATIENT, LEVEL III Diagnosis: Other allergic rhinitis[ICD10: J30.89] Diagnosis: Acute laryngopharyngitis[ICD10: J06.0] Fatmata Recinos MD, [facility] CPT-4: 25686 04/03/2016 ([id number]) 22593 EST. P ATIENT, LEVEL IV Diagnosis: Type 1 diabetes mellitus without complications[ICD10: E10.9] Diagnosis: Essential (primary) hypertension[ICD10: I10] Diagnosis: Pain in right hand[ICD10: M79.641] Dominique Recinos MD, [facility] CPT- 4: 06704 12/26/2015 ([id number]) 12719 EST. P ATIENT, LEVEL IV Diagnosis: Type 1 diabetes mellitus without complications[ICD10: E10.9] Diagnosis: Essential (primary) hypertension[ICD10: I10] Dominique Recinos MD, [facility] CPT-4: 31298 09/19/2015 ([id number]) 53398 EST. P ATIENT, LEVEL IV Diagnosis: Essential (primary) hypertension[ICD10: I10] Diagnosis: Mixed hyperlipidemia[ICD10: E78.2] Diagnosis: Type 1 diabetes mellitus without complications[ICD10: E10.9] Dominique Recinos MD, [facility] CPT-4: 89236 07/19/2015 ([id number]) 29344 EST. P ATIENT, LEVEL IV Diagnosis: Other specified dorsopathies, lumbar region[ICD10: M53.86] Diagnosis: Urge incontinence[ICD10: N39.41] Diagnosis: Type 1 diabetes mellitus without complications[ICD10: E10.9] Dominique Recinos MD, [facility] CPT-4: 18726 03/22/2015 ([id number]) 97669 EST. P ATIENT, LEVEL IV Diagnosis: Essential (primary) hypertension[ICD10: I10] Diagnosis: Other specified dorsopathies, lumbar region[ICD10: M53.86] Diagnosis: Other chronic pain[ICD10: G89.29] Dominique Recinos MD, [facility] CPT-4: 82169 02/15/2015 ([id number]) 10882 EST. P ATIENT, LEVEL IV Diagnosis: ESSENTIAL HYPERTENSION[ICD9: 401.9] Diagnosis: DIABETES TYPE II[ICD9: 250.00] Diagnosis: FALL FROM LADDER[ICD9: E881.0] Diagnosis: Right hip pain[ICD9: 719.45] Diagnosis: Left hand pain[ICD9: 729.5] Diagnosis: Sacroiliac joint pain[ICD9: 724.6] Dominique Recinos MD, [facility] CPT- 4: 15853 11/15/2014 ([id number]) OFFICE VISI T, NEW - LEVEL 4 Diagnosis: DIABETES TYPE II[ICD9: 250.00] Diagnosis: ESSENTIAL HYPERTENSION[ICD9: 401.9] Diagnosis: HYPERLIPIDEMIA[ICD9: 272.4] [facility] CPT-4: 49100 08/13/2014 Plan of Care Planned Activity Notes C odes Status Date Visit Plan: Diabetes Mellitus - Unc ontrolled [...] lesion today. 08/28/2018 Appointment: Dominique Recinos WPtel: [phone] [facility] (15 min) Moderate 08/28/2018 Patient Education: Patient Medication Summary Completed 08/28/2018 Patient Education: Diabetes Completed 08/28/2018 Appointment: Dominique Recinos WPtel: [facility] (15 min) Moderate 08/13/2018 Visit Plan: Hypertension [...] less controlled. 04/28/2018 Appointment: Dominique Recinos WPtel: [phone] [facility] (15 min) Moderate 04/28/2018 Patient Education: Patient [...] while seated. 12/25/2017 Appointment: Dominique Recinos WPtel: [phone] [facility] (15 min) Moderate 12/25/2017 Patient Education: Patient Medication Summary Completed 12/25/2017 Patient Education: Diabetes Completed 12/25/2017 Appointment: Dominique Recinos WPtel: [phone] [facility] [place] (15 min) Moderate 12/09/2017 Visit Plan: Diverticulitis - rx for antibiotic sent to pt's pharmacy - pt advised to avoid seeds, nuts, popcorn, or any other food which has been proven to upset the pt's stomach. 11/22/2017 Appointment: Miale Randolph WPtel: [phone] [phone] [place] (15 min) Moderate 11/22/2017 Patient Education: [...] glucose. 10/07/2017 [phone] ([facility] min) Moderate 10/07/2017 Patient Education: Patient Medication Summary Completed [...] with the patient today in clinic. 09/16/2017 Visit Plan: Diabetes Mellitus - I [...] allow for greater blood glucose control. 09/16/2017 Appointment: [facility]ann [phone] [place] (15 min) Moderate 09/16/2017 Patient Education: [...] home. 09/09/2017 Appointment: [phone] [place] (15 min) Moderate 09/09/2017 Patient Education: Patient Medication Summary Completed 09/09/2017 Appointment: Maile Randolph WPtel: [phone] [phone] [place] (15 min) Moderate 09/06/2017 Appointment: [facility]inos [facility]Ptel[facility] [address] [facility] [place] (15 min) Moderate 09/05/2017 Appointment: [facility]mata Spann [phone] [place] (15 min) Moderate 07/22/2017 Patient Education: [...] less controlled. ipro placed today - by JOCKEY ROOM CUSTODIAN - pt to RTC on Saturday for [...] 07/16/2017 Visit Plan: Diabetes Mellitus - con trolled [...] less controlled. ipro placed today - by JOCKEY ROOM CUSTODIAN - pt to RTC on Saturday for [...] to medications. 07/16/2017 Appointment: [facility]inos [facility]Ptel[facility] [facility] (15 min) Moderate 07/16/2017 Patient Education: Patient Medication Summary Completed 07/16/2017 Visit Plan: Sinusitis - Pt has acut e infection - pain in face, maxillary region, Pt informed to use decongestant, RX given to patient, sinus rinses also recommended. Call if symptoms do not show improvement. 06/14/2017 Appointment: Maile Randolph [phone] (30 min) Complex 06/14/2017 Patient Education: Patient [...] home. 06/10/2017 Appointment: [facility]inos [facility]el[phone] [facility] [place] (15 min) Moderate 06/10/2017 Patient Education: Patient Medication Summary Completed 06/10/2017 Appointment: Fatmata Spann [facility]el: [phone] [place] (30 min) Complex 06/03/2017 Visit Plan: [...] less controlled. 05/13/2017 Appointment: [facility]inos [facility]Ptel[phone] [facility] [place] (15 min) Moderate 05/13/2017 Patient Education: Patient Medication Summary Completed 05/13/2017 Appointment: [facility]inos [facility]Ptel[phone] [facility] [place] (30 min) Complex 05/03/2017 Appointment: Fatmata Spann [facility]Ptel: [phone] [place] (15 min) Moderate 04/12/2017 Appointment: [facility]inos [facility]Ptel[facility] [facility] [place] (15 min) Moderate 04/11/2017 Appointment: [facility]inos [facility]Ptel[phone] [place] (15 min) Moderate 04/10/2017 Appointment: Dominique Recinos WPtel: [phone] [facility] (15 min) Moderate 04/02/2017 Visit Plan: Low [...] injection. 03/26/2017 Appointment: Fatmata Spann WPtel: [phone] [facility] (30 min) Complex 03/26/2017 Appointment: Dominique Recinos WPtel: [phone] [facility] (15 min) Moderate 03/26/2017 Patient Education: Patient [...] 02/19/2017 Appointment: [facility]inos [facility]Ptel[phone] [facility] [place] (15 min) Moderate 02/19/2017 Patient Education: Patient Medication Summary Completed 02/19/2017 Patient Education: Hypertension Completed 02/19/2017 Appointment: Domin[facility] Recinos [facility]Ptel[phone] [facility] [place] (15 min) Moderate 02/12/2017 Visit Plan: Diabetes [...] 01/16/2017 Appointment: [facility]inos [facility]Ptel[phone] [facility] [place] (15 min) Moderate 01/16/2017 Patient [...] home. 01/08/2017 Appointment: Domin[facility]inos [facility]Ptel[phone] [facility] [place] (15 min) Moderate 01/08/2017 Patient Education: Patient Medication Summary Completed 01/08/2017 Patient Education: Hypertension Completed 01/08/2017 Appointment: [facility]inos [facility]Ptel[phone] [facility] [place] (15 min) Moderate 12/31/2016 Appointment: Dominique Recinostel[phone] [facility] (15 min) Moderate 12/18/2016 Visit Plan: Hypertension [...] controlled. 11/21/2016 Appointment: [facility]inos [facility]Ptel[phone] (15 min) Moderate 11/21/2016 Patient Education: Patient [...] 10/16/2016 Visit Plan: DM - uncontrolled - inc [...] creamy coleslaw, etc. -- referral to senior it specialist. Hyperlipidemia - pt has been counseled [...] until healed 10/16/2016 Appointment: Dominique Recinos WPtel: [address] [place], [place] [address] [place] (15 min) Moderate 10/16/2016 Patient Education: Patient Medication Summary Completed 10/16/2016 Patient Education: Hypertension Completed 10/16/2016 Patient Education: Patient Medication Summary Completed 10/09/2016 Care Plan: Free T4 Pending 10/09/2016 Visit Plan: COPD exacerbation-cough -symptoms resolved-call if symptoms return-monitor blood sugars closely for the next few days and discussed diet. 10/08/2016 Appointment: Maile Randolph WPtel: [phone] [phone] (15 min) Moderate 10/08/2016 Patient Education: Patient Medication Summary Completed 10/08/2016 Visit Plan: COPD EXACERBATION - SUPERVISOR QUILTING D is a chronic problem for this [...] changes. 10/01/2016 Appointment: Maile Randolph WPtel: [phone] [phone] (30 min) Complex 10/01/2016 Patient Education: Patient Medication Summary Completed 10/01/2016 Visit Plan: Bronchitis - acute case of bronchitis identified. Pt has been given antibiotics, breathing treatments as appropriate, and pt has been instructed to call if symptoms are not improved, or if symptoms acutely worsen. 09/27/2016 Appointment: Maile Randolph WPtel: [phone] [phone] (30 min) Complex 09/27/2016 Patient Education: Patient Medication Summary Completed 09/27/2016 Visit Plan: Diabetes Mellitus - con stephenieed [...] less controlled. 07/19/2016 Appointment: Dominique Recinos WPtel: [phone] [facility] (15 min) Moderate 07/19/2016 Patient Education: Patient [...] surrogate. 07/10/2016 Appointment: Fatmata Spann WPtel: [phone] [id number] [facility] - Annual Wellness Visit 07/10/2016 Patient Education: Patient Medication Summary Completed 07/10/2016 Visit Plan: Hypertension - well roxie jenkins - continue with current medications, continue with [...] improving 07/09/2016 Appointment: Dominique Recinos WPtel: [phone] [facility] [place] (15 min) Moderate 07/09/2016 Patient Education: Patient Medication Summary Completed 07/09/2016 Patient Education: Hypertension Completed 07/09/2016 Appointment: Dominique Recinos WPtel: [phone] [facility] (15 min) Moderate 06/26/2016 Visit Plan: Hypertension - well roxie jenkins - continue with current medications, continue with [...] me dications. 06/06/2016 Appointment: Dominique Recinos WPtel: [facility] (15 min) Moderate 06/06/2016 Patient Education: Patient Medication Summary Completed 06/06/2016 Appointment: Dominique Recinos WPtel: [facility]5 [facility] (15 min) Moderate 04/30/2016 Visit Plan: URI [...] allergy spray. 04/03/2016 Appointment: [facility]ata [facility]ann [phone] ([facility] min) Complex 04/03/2016 Patient Education: Patient [...] Hypertension Completed 12/26/2015 Appointment: Dominique Recinos WPtel: [phone] [phone] (15 min) Moderate 12/19/2015 Visit Plan: Diabetes [...] 09/19/2015 [phone] [place] (15 min) Moderate 09/19/2015 Patient Education: Patient [...] me dications. 07/19/2015 Appointment: Domin[facility]inos [phone] (15 min) Moderate 07/19/2015 Patient Education: [...] q10. Back pain - referral to [facility] physical [facility] for further eval and treat. 03/22/2015 Appointment: Domin[facility] Recinos [facility]Ptel[phone] [place] (15 min) Moderate 03/22/2015 Patient Education: Patient Medication Summary Completed 03/22/2015 Care Plan: Referral Order SNOMED-CT : [id number] Ordered 03/22/2015 Visit Plan: Hypertension - well [...] 12/10/2014 Visit Plan: Diabetes Mellitus - con trolled [...] me dications. 08/13/2014 Appointment: Dominique Recinos [facility]Ptel[phone] [place] ([place] New Patient 08/13/2014 Patient Education: Patient Medication Summary Completed 08/13/2014 Patient Education: Hypertension Completed 08/13/2014 Referral: External, Ordering Provider Referral Appointment Requested Instructions Comment if your blood glucos e is between [...] pain occurs at the site of injection. FLAGYL 500MG THREE T IMES DAILY X 10 DAYS CIPRO TWICE DAILY X 10 DAYS CONTINUE PROBIOTIC AVOID SEEDS, NUTS, POPCORN . Diverticulitis - rx for antibiotic sen t to pt's pharmacy - pt advised to avoid seeds, nuts, popcorn, or any other food which has been proven to upset the pt's stomach. wait at least 2 hour s after [...] to assure normal liver response to medications. INCREASE THE LANTUS TO 20 UNITS BRING [...] removed a thorn from the lesion today. Go back to taking yo ur benicar [...] at home, call if consistently above 100F. decrease the zocor t o 20mg daily [...] n cheese, mashed potatoes, creamy coleslaw, etc. decrease the zocor t o 20mg daily [...] creamy coleslaw, etc. -- referral to senior it specialist. Hyperlipidemia - pt has been counseled [...] use neosporin on lesion until healed . Hypertension - wel l controlled - [...] less controlled. ipro placed today - by [employer] CUSTODIAN - pt to RTC on Saturday for [...] liver response to medications. zocor can cause musc le aches - [...] co-enzyme q10. Back pain - referral to [facility] physical therapy for further eval and treat. . Hypertension - wel l controlled - [...] Biofreeze or Aspercreme call if not improving. increase lantus to 1 7 units daily [...] at home. . URI - Pt advised t o [...] in the nasal steroid allergy spray. . Diabetes Mellitus - I have recommended [...] with the patient today in clinic. . Diabetes Mellitus - I have recommended [...] to allow for greater blood glucose control. rocephin and kenalog . Bronchitis - acute case of bronchitis identified. Pt has been given antibiotics, breathing treatments as appropriate, and pt has been instructed to call if symptoms are not improved, or if symptoms acutely worsen. CHEST XRAY TODAY ANTI-HISTAMINE DAILY . COPD [...] monitor for acute changes. . Hypertension - wel l controlled - [...] not improving two old goats - from [employer] and home . Hypertension - well controlled [...] to assure normal liver response to medications. kenalog . Sinusitis - Pt has acute infection - p ain in face, maxillary region, Pt informed to use decongestant, RX given to patient, sinus rinses also recommended. Call if symptoms do not show improvement. . Diabetes Mellitus -fairly well controlled -per [...] legs and keep legs elevated while seated. . Hypertension - wel l controlled - continue with current medications, continue with no added salt diet. Pt has been encouraged to exercise daily. The pt has been advised to call the office if there are any acute concerns about change in blood pressure readings at home. get blood work done about 1 week [...] less controlled. ipro placed today - by [employer]OC[employer] RO[employer] CUSTODIAN - pt to RTC on Saturday for [...]
--- OUTSIDE RECORDS SUMMARY | 2019-06-14 16:54 | XMS REPORT | CCD ---
Author Author Nathalia Recinos Organization [facility] Address [address] [place] [address] Phone Care Team Providers Care Weekend Caregiver Name Role Phone PP Unavailable CCM Unavailable Summary Purpose Interface Exchange Insurance Providers Payer name Policy type / Coverage type Covered libertarian ID Effective Begin Date Effective End Date WPS Medicare Part B Medicare Part B [id number] Unknown [facility] ica Part B [id number] Un known Family history Mother Diagnosis Age At Onset No Family Disease Entered N/A Father Diagnosis Age At Onset Heart Attack Unknown Diabetes Unknown Social History Social History Element Codes Description Effective Dates Number of children Unknown 2 Sons, 5 grandchildren, 11 great grandchildren 01/08/2017 Marital status Unknown W crystal Wiley in 2017 06/06/[address]: 604503486 Never smoker 08/13/[address]: 189210489 Never drinks alcohol 08/13/2014 Allergies, Adverse Reactions, [...] Date Stop Date Sta tus Fill Instructions Lantus U-100 Insulin 100 unit/mL subcutaneous solution RxNorm: 326189 20 Unit(s) SQ QAM 08/28/2018 04/24/2019 Active this is an update to her RX Benicar 40 mg tablet RxNorm: 600612 Tablet(s) TAKE ONE TABLET BY MOUTH DAILY 08/06/2018 07/31/2019 Ac tive FreeStyle Lite Strips RxNorm: USE STRIP TO TEST SEVEN TIMES A DAY 07/10/2018 08/11/2018 In active Zocor 20 mg tablet RxNorm: 608858 1 Tablet(s) PO daily 06/10/2018 06/04/2019 Active Benicar 40 mg tablet RxNorm: 415563 Tablet(s) TAKE ONE TABLET BY MOUTH DAILY 06/06/2018 06/25/2018 In active metoprolol tartrate 50 mg tablet RxNorm: 667819 TAKE ONE TABLET BY MO UTH TWICE A DAY 05/19/2018 05/13/2019 Ac tive hydrochlorothiazide 12.5 mg capsule RxNorm: 168592 TAKE ONE CAPSULE BY M OUTH DAILY 05/19/2018 05/13/2019 Ac tive Atacand 32 mg tablet RxNorm: 434182 1 Tablet(s) PO daily 05/12/2018 05/11/2018 Inactive This is to replace benicar At[place]and 32 mg tablet RxNorm: 532763 1 Tablet(s) PO daily 05/12/2018 06/05/2018 Inactive This is to replace benicar Benicar 40 mg tablet RxNorm: 099072 TAKE ONE TABLET BY MOUTH DAILY 05/07/2018 05/06/2018 In active Benicar 40 mg tablet RxNorm: 460492 Tablet(s) TAKE ONE TABLET BY MOUTH DAILY 05/07/2018 05/11/2018 In active Zoloft 50 mg tablet RxNorm: 426946 TAKE ONE TABLET BY MOUTH DAILY 04/28/2018 04/22/2019 Ac tive gabapentin 100 mg ca psule RxNorm: 017326 TAKE ONE CAPSULE BY M OUTH THREE TIMES A DAY 04/09/2018 07/16/2018 Inactive Novolog U-100 Insuli n aspart 100 unit/mL subcutaneous solution RxNorm: 232492 SSI 5 units over 150 and for every additional 50 add 2 units Unit(s) SQ TID adjust as needed for glucose control 12/25/2017 07/22/2018 Inactive Cipro 500 mg tablet RxNorm: 572980 1 Tablet(s) PO BID 11/22/2017 12/01/2017 Inactive clotrimazole 1 % top ical cream RxNorm: 015483 1 Application TOP BID 11/22/2017 12/05/2017 Inactive Flagyl 500 mg tablet RxNorm: 669038 1 Tablet(s) PO TID 11/22/2017 12/01/2017 Inactive Lantus U-100 Insulin 100 unit/mL subcutaneous solution RxNorm: 488545 17 Unit(s) SQ QAM 11/11/2017 07/08/2018 Inactive Novolog U-100 Insuli n aspart 100 unit/mL subcutaneous solution RxNorm: 990987 SSI 5 units over 150 and for every additional 50 add 2 units Unit(s) SQ TID adjust as needed for glucose control 11/11/2017 12/24/2017 Inactive gabapentin 100 mg ca psule RxNorm: 253224 TAKE ONE CAPSULE BY M OUTH THREE TIMES A DAY 11/05/2017 02/11/2018 Inactive Kenalog 40 mg/mL fanny pension for injection RxNorm: 5412647 1 Milliliter(s) Inj 06/14/2017 06/14/2017 In active Flonase Allergy Reli ef 50 mcg/actuation nasal spray,suspension RxNorm: 4235745 2 [place] NASAL daily 06/14/2017 06/20/2017 Inactive doxycycline hyclate 100 mg tablet RxNorm: 664523 1 Tablet(s) PO BID 06/14/2017 06/20/2017 Inactive Lantus U-100 Insulin 100 unit/mL subcutaneous solution RxNorm: 095126 17 Unit(s) SQ QAM 06/10/2017 07/09/2017 Inactive gabapentin 100 mg ca psule RxNorm: 729657 TAKE ONE CAPSULE BY M OUTH THREE TIMES A DAY 05/23/2017 08/29/2017 Inactive Lantus U-100 Insulin 100 unit/mL subcutaneous solution RxNorm: 761783 15 Unit(s) SQ QAM 05/14/2017 06/09/2017 Inactive Novolog U-100 Insuli n aspart 100 unit/mL subcutaneous solution RxNorm: 168430 SSI 5 units over 150 and for every additional 50 add 2 units Unit(s) SQ TID adjust as needed for glucose control 04/24/2017 11/10/2017 Inactive Zocor 20 mg tablet RxNorm: 479427 1 Tablet(s) PO daily 04/05/2017 03/30/2018 Inactive Kenalog 40 mg/mL fanny pension for injection RxNorm: 4077629 1 Milliliter(s) Inj 03/26/2017 03/26/2017 In active Novolog 100 unit/mL subcutaneous solution RxNorm: 021300 SSI 5 units over 150 and for every additional 50 add 2 units Unit(s) SQ TID adjust as needed for glucose control 02/19/2017 04/23/2017 Inactive Lantus 100 unit/mL s ubcutaneous solution RxNorm: 026439 10 Unit(s) SQ QAM 02/19/2017 05/13/2017 In active ceftriaxone 500 mg s olution for injection RxNorm: 0011575 Inj 01/16/2017 01/16/2017 Inactive Lantus 100 unit/mL s ubcutaneous solution RxNorm: 458716 7 Unit(s) SQ QAM 01/16/2017 02/18/2017 In active Lantus 100 unit/mL s ubcutaneous solution RxNorm: 260324 10 Unit(s) SQ daily 01/08/2017 05/12/2017 In active gabapentin 100 mg ca psule RxNorm: 026617 TAKE ONE CAPSULE BY M OUTH THREE TIMES A DAY 11/30/2016 02/03/2017 Inactive Zoloft 50 mg tablet RxNorm: 391058 TAKE ONE TABLET BY MOUTH DAILY 10/30/2016 04/27/2017 In active Zocor 20 mg tablet RxNorm: 273837 1 Tablet(s) PO daily 10/16/2016 04/04/2017 Inactive stop the 40mg dose of zocor, start on 20 mg Lantus 100 unit/mL s ubcutaneous solution RxNorm: 448069 15 Unit(s) SQ daily 10/16/2016 01/07/2017 In active Novolog 100 unit/mL subcutaneous solution RxNorm: 528973 SSI 5 units over 150 and for every additional 50 add 2 units Unit(s) SQ TID adjust as needed for glucose control 10/16/2016 02/18/2017 Inactive prednisone 20 mg tablet RxNorm: 117790 1 Tablet(s) PO BID 10/01/2016 10/05/2016 Inactive Kenalog 40 mg/mL fanny pension for injection RxNorm: 7970454 1 Milliliter(s) Inj 09/27/2016 09/27/2016 In active Zithromax Z-Kisohr 250 mg tablet RxNorm: 024943 1 Tablet(s) PO UD 09/27/2016 10/01/2016 Inactive ceftriaxone 500 mg s olution for injection RxNorm: 1514393 1 Milliliter(s) Inj 09/27/2016 09/27/2016 In active Augmentin 500 mg-125 mg tablet RxNorm: 410697 1 Tablet(s) PO BID 09/22/2016 09/26/2016 Inactive Tessalon Perles 100 mg capsule RxNorm: 140806 1 Capsule(s) PO Q8 MD N as needed 09/22/2016 04/27/2018 In active metoprolol tartrate 50 mg tablet RxNorm: 363793 TAKE ONE TABLET BY [facility] TWICE A DAY 08/02/2016 07/27/2017 Inactive Novolog 100 unit/mL subcutaneous solution RxNorm: 286383 10 Unit(s) SQ TID adj ust as needed for glucose control 07/19/2016 10/15/2016 Inactive Humalog 100 unit/mL subcutaneous solution RxNorm: 295797 INJECT 10 UNITS UNDER THE SKIN BEFORE EACH MEAL 07/16/2016 07/16/2016 Inactive Kenalog 40 mg/mL fanny pension for injection RxNorm: 1339424 1 Milliliter(s) Inj 07/09/2016 07/09/2016 In active ceftriaxone 500 mg s olution for injection RxNorm: 0310293 Inj 07/09/2016 07/09/2016 Inactive Lantus 100 unit/mL s ubcutaneous solution RxNorm: 792157 Unit(s) INJECT 13 UNI TS UNDER THE SKIN IN THE MORNING 06/06/2016 10/15/2016 Inactive Zoloft 50 mg tablet RxNorm: 312104 TAKE ONE TABLET BY MOUTH DAILY 04/27/2016 07/25/2016 In active Lantus 100 unit/mL s ubcutaneous solution RxNorm: 413521 INJECT 20 UNITS UNDER THE SKIN AT BEDTIME 04/27/2016 06/05/2016 Inactive amoxicillin 500 mg c apsule RxNorm: 613425 1 Capsule(s) PO TID 04/03/2016 04/12/2016 Inactive Zyrtec 10 mg tablet RxNorm: 9656616 1 Tablet(s) PO daily 04/03/2016 05/02/2016 Inactive hydrochlorothiazide 12.5 mg capsule RxNorm: 402818 TAKE ONE CAPSULE BY M OUTH DAILY 03/12/2016 12/06/2016 In active Benicar 40 mg tablet RxNorm: 491899 1 Tablet(s) PO daily 02/28/2016 04/27/2016 Inactive Benicar 40 mg tablet RxNorm: 674440 1 Tablet(s) PO daily 02/20/2016 02/27/2016 Inactive gabapentin 100 mg ca psule RxNorm: 934630 TAKE ONE CAPSULE BY M OUTH THREE TIMES A DAY 01/09/2016 04/16/2016 Inactive metoprolol tartrate 50 mg tablet RxNorm: 937414 TAKE ONE TABLET BY MO UTH TWICE A DAY 01/09/2016 04/07/2016 Inactive Humalog 100 unit/mL subcutaneous solution RxNorm: 825581 5-10 Unit(s) SQ AC 07/19/2015 07/18/2016 In active Lantus 100 unit/mL s ubcutaneous solution RxNorm: 373830 13 Unit(s) SQ QAM 07/19/2015 01/15/2017 In active Lantus 100 unit/mL s ubcutaneous solution RxNorm: 571115 20 Unit(s) SQ QHS 07/14/2015 07/18/2015 In active Zoloft 50 mg tablet RxNorm: 601378 1 Tablet(s) PO daily 05/19/2015 09/15/2015 Inactive Humalog 100 unit/mL subcutaneous solution RxNorm: 350163 10 Unit(s) SQ AC 05/11/2015 07/18/2015 In active metoprolol tartrate 50 mg tablet RxNorm: 226660 1 Tablet(s) PO BID 04/28/2015 08/25/2015 Inactive Lantus 100 unit/mL s ubcutaneous solution RxNorm: 631336 20 Unit(s) SQ QHS 04/28/2015 07/13/2015 In active Vesicare 10 mg tablet RxNorm: 805560 1 Tablet(s) PO QPM 03/22/2015 09/18/2015 Inactive hydrochlorothiazide 12.5 mg capsule RxNorm: 294238 1 Tablet(s) PO daily 01/04/2015 12/29/2015 In active gabapentin 100 mg ca psule RxNorm: 467379 1 Capsule(s) PO TID 11/29/2014 03/28/2015 Inactive [...] Date Active aspirin 81 mg tablet RxNorm: 187903 1 Tablet(s) PO daily No Start Date Active doxazosin 2 mg tablet RxNorm: 603189 1 Tablet(s) PO QHS No Start Date Active Fish Oil oral RxNorm: 3616852 oral No Start Date Active multivitamin capsule RxNorm: 1 Capsule(s) PO daily No Start Date Active Humalog 100 unit/mL subcutaneous solution RxNorm: 879258 Unit(s) SQ No Start Date 05/10/2015 Inactive Zoloft 50 mg tablet RxNorm: 397028 1 Tablet(s) PO daily No Start Date 05/18/2015 Inactive gabapentin 100 mg ca psule RxNorm: 664257 1 Capsule(s) PO daily No Start Date 11/28/2014 Inactive metoprolol tartrate 50 mg tablet RxNorm: 389119 1 Tablet(s) PO TID No Start Date 04/27/2015 Inactive Benicar 40 mg tablet RxNorm: 328647 1 Tablet(s) PO daily No Start Date 02/19/2016 Inactive hydrochlorothiazide 25 mg tablet RxNorm: 012499 1 Tablet(s) PO daily No Start Date 01/03/2015 Inactive Lantus 100 unit/mL s ubcutaneous solution RxNorm: 658043 13 Unit(s) SQ No Start Date 04/27/2015 Inactive Zocor 40 mg tablet RxNorm: 933082 1 Tablet(s) PO daily No Start Date 10/15/2016 Inactive Medication Administered Medication Codes Instruc tions Start Date Status Kenalog 40 mg/mL suspension for injection RxNorm: 0353618 1Milliliter 06/14/2017 N o longer Active Kenalog 40 mg/mL suspension for injection RxNorm: 6434662 1Milliliter 03/26/2017 N o longer Active ceftriaxone 500 mg solution for injection RxNorm: 1165732 01/16/2017 No longer A ctive Kenalog 40 mg/mL suspension for injection RxNorm: 3095314 1Milliliter 09/27/2016 N o longer Active ceftriaxone 500 mg solution for injection RxNorm: 8396878 1Milliliter 09/27/2016 N o longer Active Kenalog 40 mg/mL suspension for injection RxNorm: 0638791 1Milliliter 07/09/2016 N o longer Active ceftriaxone 500 mg solution for injection RxNorm: 3050986 07/09/2016 No longer A ctive Immunizations Vaccine [...] Code Item Item Code Result Date %Hba1C Guz139 % HbA1c 95784-0 7.8 % 08/13/2018 %Hba1C Kck058 Gluc Ave 177 mg/dL 08/13/2018 Comp Metabolic Odo868 NA 135 mEq/L 08/13/2018 Comp Metabolic Gfi748 K 4.4 mEq/L 08/13/2018 Comp Metabolic Dqi256 CL 101 mEq/L 08/13/2018 Comp Metabolic Mdd573 CO2 27.0 mEq/L 08/13/2018 Comp Metabolic Bgh144 AN ION GAP 11 08/13/2018 Comp Metabolic Lgv362 GL UCOSE 409 Result Verified By Repea t Analysis mg/dL 08/13/2018 Comp Metabolic Vlx895 Cr eat 0.8 mg/dL 08/13/2018 Comp Metabolic Zzv548 eG FR 73 ml/min/1.73m2 08/13 Comp Metabolic Ebn500 BUN 23 mg/dL 08/13/2018 Comp Metabolic Pgp844 B/ C Ratio 29.1 Ratio 08/13/2018 Comp Metabolic Dzv899 CA LCIUM 9.0 mg/dL 08/13/2018 Comp Metabolic Fux077 AL K PHOS 66 U/L 08/13/2018 Comp Metabolic Mmr965 T(SGOT) 16 U/L 08/13/2018 Comp Metabolic Ybj456 AL T(SGPT) 11 U/L 08/13/2018 Comp Metabolic Nyt692 BI LI T 0.5 mg/dL 08/13/2018 Comp Metabolic Lym785 AL BUMIN 3.8 g/dL 08/13/2018 Comp Metabolic Bem762 TP RO 5.8 g/dL 08/13/2018 Comp Metabolic Acb484 GL OB 2.0 g/dL 08/13/2018 Comp Metabolic Zwa124 A/ G Ratio 1.9 Ratio 08/13/2018 Comp Metabolic Rbw257 Os mo 291 mOsmo 08/13/2018 Cbc With [...] 31.1 pg 08/13/2018 Cbc With Differential Ord2 [place]% 9.5 % 08/13/2018 Cbc With Differential Ord2 [...] 0.65 K/ul 08/13/2018 Cbc With Differential Ord2 [place] ABS# 0.4 K/ul 08/13/2018 Cbc With Differential Ord2 Eos ABS# 0.1 K/ul 08/13/2018 Cbc With Differential Ord2 Baso ABS# 0.0 K/ul 08/13/2018 Comp Metabolic Qlk163 NA 137 mEq/L 04/28/2018 Comp Metabolic Vsl339 K 4.1 mEq/L 04/28/2018 Comp Metabolic Fhy715 CL 101 mEq/L 04/28/2018 Comp Metabolic Gys944 CO2 28.0 mEq/L 04/28/2018 Comp Metabolic Mvb706 AN ION GAP 12 04/28/2018 Comp Metabolic Ulo408 GL UCOSE 195 mg/dL 04/28/2018 Comp Metabolic Jxh706 Cr eat 0.7 mg/dL 04/28/2018 Comp Metabolic Ucw453 eG FR 81 ml/min/1.73m2 04/28 Comp Metabolic Dom182 BUN 24 mg/dL 04/28/2018 Comp Metabolic Ase281 B/ C Ratio 33.3 Ratio 04/28/2018 Comp Metabolic Gta225 CA LCIUM 9.4 mg/dL 04/28/2018 Comp Metabolic Nvk707 AL K PHOS 72 U/L 04/28/2018 Comp Metabolic Blg131 T(SGOT) 15 U/L 04/28/2018 Comp Metabolic Ctk445 AL T(SGPT) 11 U/L 04/28/2018 Comp Metabolic Udq605 BI LI T 0.6 mg/dL 04/28/2018 Comp Metabolic Zeg781 AL BUMIN 4.0 g/dL 04/28/2018 Comp Metabolic Lsz824 TP RO 6.1 g/dL 04/28/2018 Comp Metabolic Dki012 GL OB 2.1 g/dL 04/28/2018 Comp Metabolic Wfh581 A/ G Ratio 2.0 Ratio 04/28/2018 Comp Metabolic Vsk503 Os mo 283 mOsmo 04/28/2018 %Hba1C Snv506 % HbA1c 07751-8 7.5 % 04/28/2018 %Hba1C Rlc114 Gluc Ave 169 mg/dL 04/28/2018 %Hba1C Dii006 % HbA1c 10522-8 7.1 % 12/25/2017 %Hba1C Pxf182 Gluc Ave 157 mg/dL 12/25/2017 Comp Metabolic Vlu574 NA 139 mEq/L 12/25/2017 Comp Metabolic Jsj606 K 4.1 mEq/L 12/25/2017 Comp Metabolic Bno727 CL 104 mEq/L 12/25/2017 Comp Metabolic Nsy226 CO2 28.0 mEq/L 12/25/2017 Comp Metabolic Ltb480 AN ION GAP 11 12/25/2017 Comp Metabolic Ymu029 GL UCOSE 129 mg/dL 12/25/2017 Comp Metabolic Xsp779 Cr eat 0.7 mg/dL 12/25/2017 Comp Metabolic Cun492 eG FR 83 ml/min/1.73m2 12/25 Comp Metabolic Swp008 BUN 22 mg/dL 12/25/2017 Comp Metabolic Fpi438 B/ C Ratio 31.0 Ratio 12/25/2017 Comp Metabolic Kjr593 CA LCIUM 9.4 mg/dL 12/25/2017 Comp Metabolic Epi153 AL K PHOS 70 U/L 12/25/2017 Comp Metabolic Ndx575 T(SGOT) 16 U/L 12/25/2017 Comp Metabolic Kki057 AL T(SGPT) 12 U/L 12/25/2017 Comp Metabolic Ibt022 BI LI T 0.5 mg/dL 12/25/2017 Comp Metabolic Etr230 AL BUMIN 4.2 g/dL 12/25/2017 Comp Metabolic Hpt784 TP RO 6.1 g/dL 12/25/2017 Comp Metabolic Sct523 GL OB 1.9 g/dL 12/25/2017 Comp Metabolic Wor955 A/ G Ratio 2.1 Ratio 12/25/2017 Comp Metabolic Vbp540 Os mo 283 mOsmo 12/25/2017 %Hba1C Ufg516 % HbA1c 75316-0 8.0 % 05/13/2017 %Hba1C Fsf840 Gluc Ave 183 mg/dL 05/13/2017 Comp Metabolic Lzc660 NA 135 mEq/L 05/13/2017 Comp Metabolic Uxq897 K 3.8 mEq/L 05/13/2017 Comp Metabolic Gin417 CL 99 mEq/L 05/13/2017 Comp Metabolic Oyu269 CO2 29.0 mEq/L 05/13/2017 Comp Metabolic Iik123 AN ION GAP 11 05/13/2017 Comp Metabolic Fxm113 GL UCOSE 155 mg/dL 05/13/2017 Comp Metabolic Vnl493 Cr eat 0.7 mg/dL 05/13/2017 Comp Metabolic Rsy981 eG FR 90 ml/min/1.73m2 05/13 Comp Metabolic Wxs538 BUN 18 mg/dL 05/13/2017 Comp Metabolic Uvk422 B/ C Ratio 27.3 Ratio 05/13/2017 Comp Metabolic Plq728 CA LCIUM 8.9 mg/dL 05/13/2017 Comp Metabolic Nvg631 AL K PHOS 90 U/L 05/13/2017 Comp Metabolic Axk048 T(SGOT) 18 U/L 05/13/2017 Comp Metabolic Mvk903 AL T(SGPT) 15 U/L 05/13/2017 Comp Metabolic Zsj964 BI LI T 0.5 mg/dL 05/13/2017 Comp Metabolic Hfy151 AL BUMIN 4.0 g/dL 05/13/2017 Comp Metabolic Cwe144 TP RO 5.9 g/dL 05/13/2017 Comp Metabolic Edc831 GL OB 1.9 g/dL 05/13/2017 Comp Metabolic Toj309 A/ G Ratio 2.1 Ratio 05/13/2017 Comp Metabolic Ygq679 Os mo 275 mOsmo 05/13/2017 Urine Culture Ucult Prel iminary NO Growth Day 1 01/18 Urine Culture Ucult Comp lete NO Growth Day 2 01/18 Free T4 Pps853 FREE T4 1.13 ng/dL 10/09/2016 Tsh Ord6 [...] 31.5 pg 10/08/2016 Cbc With Differential Ord2 [place]% 4.0 % 10/08/2016 Cbc With Differential Ord2 [...] 0.96 K/ul 10/08/2016 Cbc With Differential Ord2 [place] ABS# 0.4 K/ul 10/08/2016 Cbc With Differential Ord2 Eos ABS# 0.0 K/ul 10/08/2016 Cbc With Differential Ord2 Baso ABS# 0.0 K/ul 10/08/2016 Comp Metabolic Lkd041 NA 135 mEq/L 10/08/2016 Comp Metabolic Mte880 K 4.3 mEq/L 10/08/2016 Comp Metabolic Bat111 CL 98 mEq/L 10/08/2016 Comp Metabolic Yls310 CO2 22.0 mEq/L 10/08/2016 Comp Metabolic Ejw984 AN ION GAP 19 10/08/2016 Comp Metabolic Fef879 GL UCOSE 400 mg/dL 10/08/2016 Comp Metabolic Cxu575 Cr eat 0.7 mg/dL 10/08/2016 Comp Metabolic Jtt391 eG FR 79 ml/min/1.73m2 10/08 Comp Metabolic Csx248 BUN 27 mg/dL 10/08/2016 Comp Metabolic Dkc431 B/ C Ratio 36.5 Ratio 10/08/2016 Comp Metabolic Fls465 CA LCIUM 9.1 mg/dL 10/08/2016 Comp Metabolic Uas900 AL K PHOS 65 U/L 10/08/2016 Comp Metabolic Hyq463 T(SGOT) 28 U/L 10/08/2016 Comp Metabolic Wec741 AL T(SGPT) 24 U/L 10/08/2016 Comp Metabolic Lbf184 BI LI T 0.7 mg/dL 10/08/2016 Comp Metabolic Aug011 AL BUMIN 3.8 g/dL 10/08/2016 Comp Metabolic Kos379 TP RO 6.0 g/dL 10/08/2016 Comp Metabolic Vxu490 GL OB 2.2 g/dL 10/08/2016 Comp Metabolic Aym716 A/ G Ratio 1.7 Ratio 10/08/2016 Comp Metabolic Huh061 Os mo 292 mOsmo 10/08/2016 %Hba1C Ouo366 % HbA1c 74903-2 7.0 % 10/08/2016 %Hba1C Oez407 Gluc Ave 154 mg/dL 10/08/2016 Microalbumin Ntt527 Micr oAlb <0.7 mg/dL 10/08/2016 Lipid Ord30 [...] OK? TNP:Duplicate Order 04/03/2016 C A/B FLU 0767639 Influe nza A Scr Negative 04/03/2016 C A/B FLU 1501405 Influe nza B Scr Negative 04/03/2016 Comp Metabolic Cpu142 NA 138 mEq/L 09/15/2015 Comp Metabolic Qlh367 K 4.4 mEq/L 09/15/2015 Comp Metabolic Vnr877 CL 103 mEq/L 09/15/2015 Comp Metabolic Xut356 CO2 29.0 mEq/L 09/15/2015 Comp Metabolic Ovw164 AN ION GAP 10 09/15/2015 Comp Metabolic Nee425 GL UCOSE 156 mg/dL 09/15/2015 Comp Metabolic Njr786 Cr eat 0.7 mg/dL 09/15/2015 Comp Metabolic Arl570 eG FR 79 ml/min/1.73m2 09/14 Comp Metabolic Eih855 BUN 23 mg/dL 09/15/2015 Comp Metabolic Slu618 B/ C Ratio 31.1 Ratio 09/15/2015 Comp Metabolic Tjz347 CA LCIUM 9.1 mg/dL 09/15/2015 Comp Metabolic Dxp908 AL K PHOS 58 U/L 09/15/2015 Comp Metabolic Hyy775 T(SGOT) 19 U/L 09/15/2015 Comp Metabolic Hbv575 AL T(SGPT) 11 U/L 09/15/2015 Comp Metabolic Mnk987 BI LI T 0.6 mg/dL 09/15/2015 Comp Metabolic Hsi591 AL BUMIN 3.9 g/dL 09/15/2015 Comp Metabolic Mlo720 TP RO 5.8 g/dL 09/15/2015 Comp Metabolic Qrl923 GL OB 1.9 g/dL 09/15/2015 Comp Metabolic Wnh979 A/ G Ratio 2.1 Ratio 09/15/2015 Comp Metabolic Cec707 Os mo 283 mOsmo 09/15/2015 Cbc With [...] 30.5 pg 09/15/2015 Cbc With Differential Ord2 [place]% 10.2 % 09/15/2015 Cbc With Differential Ord2 [...] 0.86 K/ul 09/15/2015 Cbc With Differential Ord2 [place] ABS# 0.5 K/ul 09/15/2015 Cbc With Differential Ord2 Eos ABS# 0.1 K/ul 09/15/2015 Cbc With Differential Ord2 Baso ABS# 0.0 K/ul 09/15/2015 Tsh Ord6 hTSH II 0.76 uIU/mL 09/15/2015 Lipid Ord30 CHOL 139 mg/dL 09/15/2015 Lipid Ord30 HDL 57.0 mg/dl 09/15/2015 Lipid Ord30 TRIG 76 mg/dL 09/15/2015 Lipid Ord30 LDL 67 mg/dL 09/15/2015 Lipid Ord30 C/HDL 2.4 Ratio 09/15/2015 %Hba1C Ini206 % HbA1c 74146-4 6.6 % 09/15/2015 %Hba1C Fia224 Gluc Ave 143 mg/dL 09/15/2015 Tsh Ord6 hTSH II 0.68 uIU/mL 06/02/2015 %Hba1C Urh729 % HbA1c 74770-7 6.5 % 06/02/2015 %Hba1C Ntc201 Gluc Ave 140 mg/dL 06/02/2015 Comp Metabolic Azp766 NA 139 mEq/L 06/02/2015 Comp Metabolic Erm273 K 4.5 mEq/L 06/02/2015 Comp Metabolic Kck789 CL 104 mEq/L 06/02/2015 Comp Metabolic Nol710 CO2 25.0 mEq/L 06/02/2015 Comp Metabolic Nxu423 AN ION GAP 15 06/02/2015 Comp Metabolic Qpc421 GL UCOSE 123 mg/dL 06/02/2015 Comp Metabolic Zbg088 Cr eat 0.7 mg/dL 06/02/2015 Comp Metabolic Syr481 eG FR 92 ml/min/1.73m2 06/01 Comp Metabolic Svv309 BUN 21 mg/dL 06/02/2015 Comp Metabolic Ajo527 B/ C Ratio 32.3 Ratio 06/02/2015 Comp Metabolic Efg826 CA LCIUM 9.5 mg/dL 06/02/2015 Comp Metabolic Qnf920 AL K PHOS 66 U/L 06/02/2015 Comp Metabolic Whk269 T(SGOT) 19 U/L 06/02/2015 Comp Metabolic Dwe248 AL T(SGPT) 13 U/L 06/02/2015 Comp Metabolic Dwn773 BI LI T 0.5 mg/dL 06/02/2015 Comp Metabolic Vge723 AL BUMIN 4.0 g/dL 06/02/2015 Comp Metabolic Rtn029 TP RO 6.3 g/dL 06/02/2015 Comp Metabolic Zrk122 GL OB 2.3 g/dL 06/02/2015 Comp Metabolic Wfg770 A/ G Ratio 1.7 Ratio 06/02/2015 Comp Metabolic Djc060 Os mo 282 mOsmo 06/02/2015 %Hba1C Pfp444 % HbA1c 96866-5 6.7 % 02/17/2015 %Hba1C Icb952 Gluc Ave 146 mg/dL 02/17/2015 Comp Metabolic Qxm093 NA 133 mEq/L 02/17/2015 Comp Metabolic Qgz492 K 4.3 mEq/L 02/17/2015 Comp Metabolic Taz832 CL 99 mEq/L 02/17/2015 Comp Metabolic Evl269 CO2 27.0 mEq/L 02/17/2015 Comp Metabolic Toh456 AN ION GAP 11 02/17/2015 Comp Metabolic Aal121 GL UCOSE 239 mg/dL 02/17/2015 Comp Metabolic Fmz364 Cr eat 0.7 mg/dL 02/17/2015 Comp Metabolic Pwx474 eG FR 79 ml/min/1.73m2 02/17 Comp Metabolic Ykk525 BUN 24 mg/dL 02/17/2015 Comp Metabolic Kbw455 B/ C Ratio 32.4 Ratio 02/17/2015 Comp Metabolic Mcf483 CA LCIUM 9.1 mg/dL 02/17/2015 Comp Metabolic Brl833 AL K PHOS 75 U/L 02/17/2015 Comp Metabolic Acx556 T(SGOT) 18 U/L 02/17/2015 Comp Metabolic Rqi792 AL T(SGPT) 11 U/L 02/17/2015 Comp Metabolic Icl389 BI LI T 0.6 mg/dL 02/17/2015 Comp Metabolic Gqn933 AL BUMIN 4.2 g/dL 02/17/2015 Comp Metabolic Dmn297 TP RO 6.2 g/dL 02/17/2015 Comp Metabolic Oyv465 GL OB 2.0 g/dL 02/17/2015 Comp Metabolic Elb183 A/ G Ratio 2.1 Ratio 02/17/2015 Comp Metabolic Szj628 Os mo 278 mOsmo 02/17/2015 %Hba1C Ddt406 % HbA1c 35670-7 6.7 % 11/15/2014 %Hba1C Urx768 Gluc Ave 146 mg/dL 11/15/2014 Comp Metabolic Mfa589 NA 134 mEq/L 11/15/2014 Comp Metabolic Cwm121 K 4.5 mEq/L 11/15/2014 Comp Metabolic Fvo324 CL 101 mEq/L 11/15/2014 Comp Metabolic Acy522 CO2 27.0 mEq/L 11/15/2014 Comp Metabolic Sdh959 AN ION GAP 11 11/15/2014 Comp Metabolic Kjm476 GL UCOSE 293 mg/dL 11/15/2014 Comp Metabolic Ppz310 Cr eat 0.7 mg/dL 11/15/2014 Comp Metabolic Wzs110 eG FR 87 ml/min/1.73m2 11/15 Comp Metabolic Svb723 BUN 20 mg/dL 11/15/2014 Comp Metabolic Kvs399 B/ C Ratio 29.4 Ratio 11/15/2014 Comp Metabolic Ayx716 CA LCIUM 9.0 mg/dL 11/15/2014 Comp Metabolic Adw057 AL K PHOS 67 U/L 11/15/2014 Comp Metabolic Xiq788 T(SGOT) 17 U/L 11/15/2014 Comp Metabolic Vac662 AL T(SGPT) 10 U/L 11/15/2014 Comp Metabolic Quy334 BI LI T 0.6 mg/dL 11/15/2014 Comp Metabolic Neo093 AL BUMIN 4.0 g/dL 11/15/2014 Comp Metabolic Gkk069 TP RO 6.0 g/dL 11/15/2014 Comp Metabolic Mwl837 GL OB 2.0 g/dL 11/15/2014 Comp Metabolic Oxq438 A/ G Ratio 2.0 Ratio 11/15/2014 Comp Metabolic Wqx929 Os mo 282 mOsmo 11/15/2014 Review of [...] lips 08/28/2018 None Full Exam - General 1994 Ears/Nose/Throat lips/teeth/gingiva Overall: normal dentition 08/28/2018 None Full Exam - General 1994 Ears/Nose/Throat oral cavity/pharynx/larynx Overall: oral mucosa clear 08/28/2018 None Full Exam - General 1995 Ears/Nose/Throat oral cavity/pharynx/larynx Overall: oropharyngeal mucosa clear 08/28/2018 None Full Exam - General 1995 Ears/Nose/Throat oral cavity/pharynx/larynx Overall: hypopharynx benign 08/28/2018 [...] lips 11/22/2017 None Full Exam - General 1995 Ears/Nose/Throat lips/teeth/gingiva Overall: normal dentition 11/22/2017 None Full Exam - General 1994 Ears/Nose/Throat oral cavity/pharynx/larynx Overall: oral mucosa clear 11/22/2017 None Full Exam - General 1995 [...] otoscopic exam Left tympanic membrane: air-fluid le ivktor 09/27/2016 None Full Exam - ENT Ears/Nose/Throat [...] GLUC MONITOR CONT PH YS I&R CPT-4: 81548 09/16/2017 GLUCOSE MONITORING CONT CPT-4: 52867 07/16/2017 TRIAMCINOLONE ACET I [place] NOS CPT-4: J3301 06/14/2017 DRAIN/INJECT JOINT/B URSA CPT-4: 20135 03/26/2017 TRIAMCINOLONE ACET I NJ NOS CPT-4: J3301 03/26/2017 URINALYSIS NONAUTO W /O SCOPE CPT-4: 11273 01/16/2017 THER/PROPH/DIAG INJ SC/IM CPT-4: 96056 01/16/2017 ROCEPHIN, PER 250 MG CPT-4: J0696 01/16/2017 DESTRUCT PREMALG LESION CPT-4: 78789 10/16/2016 TRIAMCINOLONE ACET I NJ NOS CPT-4: J3301 09/27/2016 ROCEPHIN, PER 250 MG CPT-4: J0696 09/27/2016 PPPS, SUBSEQ VISIT CPT- 4: G0439 07/10/2016 THER/PROPH/DIAG INJ SC/IM CPT-4: 22496 07/09/2016 TRIAMCINOLONE ACET I NJ NOS CPT-4: J3301 07/09/2016 ROCEPHIN, PER 250 MG CPT-4: J0696 07/09/2016 ADMIN PNEUMOCOCCAL V ACCINE SNOMED CT: 44258889 CPT-4: G0009 02/15/2015 PNEUMOCOCCAL VACC 13 LIMA IM Formatting Model/CDA Sections, Assigned to SNOMED CT: 04981450 CPT-4: 50999Aszejiu 02/15/2015 ADMIN INFLUENZA VIRU S VAC CPT-4: G0008 12/10/2014 FLU VACC 4 LIMA 3 YRS PLUS IM Formatting Model/CDA Sections, Assigned to SNOMED CT: 87937576 CPT-4: 88438Cwqkmkg 12/10/2014 Vital Signs Date Vital 08/28/2018 Blood Pressure 1: 120/62 Code: 8480-6 BMI: 24.1 Code: 60267-3 Heart Rate 1: 65 bpm Height: 5'2" SpO2: 96% Weight: 132 lbs 04/28/2018 Blood Pressure 1: 110/58 Code: 8480-6 BMI: 24.0 Code: 20271-8 Heart Rate 1: 56 bpm Height: 5'2" Respiratory Rate: 18 bpm SpO2: 98% Weight: 131 lbs 12/25/2017 Blood Pressure 1: 140/52 Code: 8480-6 BMI: 24.0 Code: 15570-1 Heart Rate 1: 64 bpm Height: 5'2" Respiratory Rate: 18 bpm SpO2: 96% Weight: 131 lbs 11/22/2017 Blood Pressure 1: 128/54 Code: 8480-6 BMI: 23.4 Code: 21869-7 Heart Rate 1: 62 bpm Height: 5'2" SpO2: 97% Weight: 128 lbs 10/07/2017 Blood Pressure 1: 148/68 Code: 8480-6 BMI: 23.2 Code: 81918-2 Heart Rate 1: 68 bpm Height: 5'2" SpO2: 98% Weight: 127 lbs 09/16/2017 Blood Pressure 1: 134/80 Code: 8480-6 BMI: 22.5 Code: 51249-4 Heart Rate 1: 86 bpm Height: 5'2" SpO2: 98% Weight: 123 lbs 09/09/2017 Blood Pressure 1: 150/66 Code: 8480-6 Blood Pressure 1: 138/72 Code: 8480-6 BMI: 22.9 Code: 55789-5 Heart Rate 1: 81 bpm Height: 5'2" SpO2: 98% Weight: 125 lbs 07/16/2017 Blood Pressure 1: 144/68 Code: 8480-6 BMI: 21.9 Code: 40862-7 Heart Rate 1: 73 bpm Height: 5'2" SpO2: 98% Weight: 120 lbs 06/14/2017 Blood Pressure 1: 132/64 Code: 8480-6 BMI: 22.3 Code: 19434-5 Heart Rate 1: 77 bpm Height: 5'2" SpO2: 98% Temperature: 37.0 (C ) / 98.6 (F) Weight: 122 lbs 06/10/2017 Blood Pressure 1: 134/64 Code: 8480-6 BMI: 22.5 Code: 26567-1 Heart Rate 1: 78 bpm Height: 5'2" SpO2: 95% Weight: 123 lbs 05/13/2017 Blood Pressure 1: 140/66 Code: 8480-6 BMI: 21.6 Code: 62008-6 Heart Rate 1: 80 bpm Height: 5'2" SpO2: 98% Weight: 118 lbs 03/26/2017 Blood Pressure 1: 150/78 Code: 8480-6 BMI: 23.2 Code: 80346-7 Heart Rate 1: 73 bpm Height: 5'2" SpO2: 99% Weight: 127 lbs 02/19/2017 Blood Pressure 1: 126/64 Code: 8480-6 BMI: 22.9 Code: 24918-7 Heart Rate 1: 74 bpm Height: 5'2" SpO2: 99% Weight: 125 lbs 01/16/2017 Blood Pressure 1: 136/68 Code: 8480-6 Heart Rate 1: 97 bpm Height: 5'2" Respiratory Rate: 16 bpm Temperature: 37.5 (C ) / 99.5 (F) Weight: 01/08/2017 Blood Pressure 1: 144/60 Code: 8480-6 BMI: 23.0 Code: 90002-1 Heart Rate 1: 71 bpm Height: 5'2" SpO2: 96% Weight: 126 lbs 11/21/2016 Blood Pressure 1: 150/62 Code: 8480-6 BMI: 23.2 Code: 83283-3 Heart Rate 1: 73 bpm Height: 5'2" SpO2: 94% Weight: 127 lbs 10/16/2016 Blood Pressure 1: 142/82 Code: 8480-6 BMI: 22.9 Code: 54869-6 Heart Rate 1: 80 bpm Height: 5'2" SpO2: 96% Weight: 125 lbs 10/08/2016 Blood Pressure 1: 150/72 Code: 8480-6 Heart Rate 1: 65 bpm Height: 5'2" SpO2: 98% 10/01/2016 Blood Pressure 1: 152/76 Code: 8480-6 Heart Rate 1: 69 bpm Height: 5'2" SpO2: 97% 09/27/2016 Blood Pressure 1: 122/64 Code: 8480-6 BMI: 23.3 Code: 13754-8 Heart Rate 1: 80 bpm Height: 5'2" SpO2: 98% Weight: 127 lbs 8 oz 07/19/2016 Blood Pressure 1: 118/68 Code: 8480-6 BMI: 23.0 Code: 23482-8 Heart Rate 1: 62 bpm Height: 5'2" SpO2: 97% Weight: 126 lbs 07/10/2016 Blood Pressure 1: 132/64 Code: 8480-6 BMI: 23.4 Code: 14830-3 Heart Rate 1: 82 bpm Height: 5'2" SpO2: 98% Waist Measure (cm): 76 cm Weight: 128 lbs 07/09/2016 Blood Pressure 1: 132/64 Code: 8480-6 BMI: 23.4 Code: 45535-7 Heart Rate 1: 82 bpm Height: 5'2" SpO2: 98% Temperature: 37.2 (C ) / 98.9 (F) Weight: 128 lbs 06/06/2016 Blood Pressure 1: 144/66 Code: 8480-6 BMI: 23.4 Code: 64736-8 Heart Rate 1: 77 bpm Height: 5'2" SpO2: 97% Weight: 128 lbs 04/03/2016 Blood Pressure 1: 164/70 Code: 8480-6 BMI: 24.5 Code: 92385-3 Heart Rate 1: 80 bpm Height: 5'2" SpO2: 98% Weight: 134 lbs 12/26/2015 Blood Pressure 1: 130/72 Code: 8480-6 BMI: 24.1 Code: 88081-8 Heart Rate 1: 63 bpm Height: 5'2" SpO2: 98% Weight: 132 lbs 09/19/2015 Blood Pressure 1: 140/68 Code: 8480-6 BMI: 24.2 Code: 89324-5 Heart Rate 1: 96 bpm Height: 5'2" SpO2: 98% Weight: 132 lbs 8 oz 07/19/2015 Blood Pressure 1: 128/64 Code: 8480-6 BMI: 24.2 Code: 91228-9 Heart Rate 1: 66 bpm Height: 5'2" SpO2: 98% Weight: 132 lbs 8 oz 03/22/2015 Blood Pressure 1: 128/60 Code: 8480-6 BMI: 24.0 Code: 92291-0 Heart Rate 1: 57 bpm Height: 5'2" SpO2: 98% Weight: 131 lbs 02/15/2015 Blood Pressure 1: 132/56 Code: 8480-6 BMI: 23.8 Code: 81898-8 Heart Rate 1: 70 bpm Height: 5'2" SpO2: 98% Weight: 130 lbs 11/15/2014 Blood Pressure 1: 120/78 Code: 8480-6 BMI: 24.1 Code: 52707-1 Heart Rate 1: 79 bpm Height: 5'2" SpO2: 98% Weight: 132 lbs 08/13/2014 Blood Pressure 1: 140/60 Code: 8480-6 BMI: 24.0 Code: 21589-4 Heart Rate 1: 74 bpm Height: 5'2" [...] chr onic 10/07/2017 None hypertension Quality whitney mattson hypertension 10/07/2017 None hypertension Onset and Resolution [...] Encounters Encounter Performer Loca tion Codes Date ([id number]) 97009 EST. P ATIENT, LEVEL IV Diagnosis: Type 2 diabetes mellitus with hyperglycemia[ICD10: E11.65] Diagnosis: Essential (primary) hypertension[ICD10: I10] Diagnosis: Other skin changes[ICD10: R23.8] Dominique Recinos MD, [facility] CPT-4: 15302 08/28/2018 ([id number]) 75099 EST. P ATIENT, LEVEL IV Diagnosis: Essential (primary) hypertension[ICD10: I10] Diagnosis: Type 2 diabetes mellitus with hyperglycemia[ICD10: E11.65] Diagnosis: Trigger finger, right middle finger[ICD10: M65.331] Dominique Recinos MD, [facility] CPT-4: 34531 04/28/2018 ([id number]) 63648 EST. P ATIENT, LEVEL IV Diagnosis: Type 2 diabetes mellitus with hyperglycemia[ICD10: E11.65] Diagnosis: Essential (primary) hypertension[ICD10: I10] Diagnosis: Localized edema[ICD10: R60.0] Dominique Recinos MD, [facility] CPT-4: 76534 12/25/2017 ([id number]) 89881 EST. P ATIENT, LEVEL IV Diagnosis: Diverticulitis of large intestine without perforation or abscess without bleeding[ICD10: K57.32] Diagnosis: Nausea[ICD10: R11.0] Maile Recinos MD, [facility] CPT-4: 51899 11/22/2017 ([id number]) Miscellaneou s no charge Diagnosis: Laceration without foreign body of right forearm, subsequent encounter[ICD10: S51.811D] Dominique Recinos MD, [facility] CPT-4: 01179 10/16/2017 ([id number]) Miscellaneou s no charge Diagnosis: Laceration without foreign body of right forearm, subsequent encounter[ICD10: S51.811D] Dominique Recinos MD, [facility] CPT-4: 06726 10/14/2017 ([id number]) Miscellaneou s no charge Diagnosis: Laceration without foreign body of right forearm, subsequent encounter[ICD10: S51.811D] Dominique Recinos MD, [facility] CPT-4: 20295 10/09/2017 ([id number]) 00623 EST. P ATIENT, LEVEL III Diagnosis: Type 2 diabetes mellitus with hyperglycemia[ICD10: E11.65] Dominique Recinos MD, [facility] CPT-4: 45880 10/07/2017 ([id number]) 66291 EST. P ATIENT, LEVEL III Diagnosis: Type 2 diabetes mellitus with hyperglycemia[ICD10: E11.65] Fatmata Recinos MD, [facility] CPT-4: 40000 09/16/2017 ([id number]) 39667 EST. P ATIENT, LEVEL III Diagnosis: Essential (primary) hypertension[ICD10: I10] Dominique Recinos MD, [facility] CPT-4: 39107 09/09/2017 ([id number]) Miscellaneou s no charge Diagnosis: Type 1 diabetes mellitus without complications[ICD10: E10.9] Fatmata Recinos MD, [facility] CPT-4: 55043 07/22/2017 ([id number]) 69182 EST. P ATIENT, LEVEL IV Diagnosis: Type 1 diabetes mellitus without complications[ICD10: E10.9] Diagnosis: Mixed hyperlipidemia[ICD10: E78.2] Diagnosis: Essential (primary) hypertension[ICD10: I10] Dominique Recinos MD, C CPT-4: 61018 07/16/2017 ([id number]) 01026 EST. P ATIENT, LEVEL III Diagnosis: Cough[ICD10: R05] Diagnosis: Acute recurrent maxillary sinusitis[ICD10: J01.01] Maile Recinos MD, [facility] CPT-4: 09639 06/14/2017 ([id number]) 50070 EST. P ATIENT, LEVEL IV Diagnosis: Type 1 diabetes mellitus without complications[ICD10: E10.9] Diagnosis: Essential (primary) hypertension[ICD10: I10] Dominique Recinos MD, [facility] CPT-4: 75960 06/10/2017 ([id number]) 77140 EST. P ATIENT, LEVEL IV Diagnosis: Essential (primary) hypertension[ICD10: I10] Diagnosis: Type 1 diabetes mellitus without complications[ICD10: E10.9] Dominique Recinos MD, [facility] CPT-4: 28967 05/13/2017 11221 EST. PATIENT, LEVEL III Diagnosis: Sciatica, right side[ICD10: M54.31] Diagnosis: Low back pain[ICD10: M54.5] Fatmata Recinos MD, [facility] CPT-4: 45296 03/26/2017 ([id number]) 40385 EST. P ATIENT, LEVEL III Diagnosis: Type 1 diabetes mellitus without complications[ICD10: E10.9] Diagnosis: Essential (primary) hypertension[ICD10: I10] Dominique Recinos MD, [facility] CPT-4: 46931 02/19/2017 ([id number]) 02064 EST. P ATIENT, LEVEL IV Diagnosis: Fever presenting with conditions classified elsewhere[ICD10: R50.81] Diagnosis: Weakness[ICD10: R53.1] Diagnosis: Frequency of micturition[ICD10: R35.0] Diagnosis: Type 1 diabetes mellitus without complications[ICD10: E10.9] [facility] CPT-4: 47852 01/16/2017 ([id number]) 11246 EST. P ATIENT, LEVEL IV Diagnosis: Type 1 diabetes mellitus without complications[ICD10: E10.9] Diagnosis: Essential (primary) hypertension[ICD10: I10] Dominique Recinos MD, [facility] CPT-4: 30284 01/08/2017 ([id number]) 52432 EST. P ATIENT, LEVEL IV Diagnosis: Essential (primary) hypertension[ICD10: I10] Diagnosis: Type 1 diabetes mellitus without complications[ICD10: E10.9] Dominique Recinos MD, [facility] CPT-4: 97745 11/21/2016 ([id number]) 51441 EST. 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 CPT-4: 65093 10/16/2016 ([id number]) 26521 EST. P ATIENT, LEVEL III Diagnosis: Chronic obstructive pulmonary disease with (acute) exacerbation[ICD10: J44.1] Diagnosis: Cough[ICD10: R05] [facility] CPT-4: 98599 10/08/2016 ([id number]) Miscellaneou s no charge Diagnosis: Cough[ICD10: R05] Diagnosis: Chronic obstructive pulmonary disease with (acute) exacerbation[ICD10: J44.1] [facility] CPT-4: 95958 10/01/2016 ([id number]) 58947 EST. P ATIENT, LEVEL III Diagnosis: Cough[ICD10: R05] Diagnosis: Acute bronchitis, unspecified[ICD10: J20.9] [facility] CPT-4: 40030 09/27/2016 ([id number]) 06799 EST. P ATIENT, LEVEL III Diagnosis: Type 1 diabetes mellitus without complications[ICD10: E10.9] Dominique Recinos MD, [facility] CPT-4: 16244 07/19/2016 ([id number]) 70993 EST. P ATIENT, LEVEL IV Diagnosis: Essential (primary) hypertension[ICD10: I10] Diagnosis: Type 1 diabetes mellitus without complications[ICD10: E10.9] Diagnosis: Other allergic rhinitis[ICD10: J30.89] Diagnosis: Acute laryngopharyngitis[ICD10: J06.0] Dominique Recinos MD, [facility] CPT-4: 77169 07/09/2016 ([id number]) 84580 EST. P ATIENT, LEVEL IV Diagnosis: Essential (primary) hypertension[ICD10: I10] Diagnosis: Type 1 diabetes mellitus without complications[ICD10: E10.9] Diagnosis: Mixed hyperlipidemia[ICD10: E78.2] Dominique Recinos MD, [facility] CPT- 4: 08853 06/06/2016 19500 EST. PATIENT, LEVEL III Diagnosis: Other allergic rhinitis[ICD10: J30.89] Diagnosis: Acute laryngopharyngitis[ICD10: J06.0] Fatmata Recinos MD, [facility] CPT-4: 47809 04/03/2016 ([id number]) 55996 EST. P ATIENT, LEVEL IV Diagnosis: Type 1 diabetes mellitus without complications[ICD10: E10.9] Diagnosis: Essential (primary) hypertension[ICD10: I10] Diagnosis: Pain in right hand[ICD10: M79.641] Dominique Recinos MD, [facility] CPT- 4: 37883 12/26/2015 ([id number]) 00326 EST. P ATIENT, LEVEL IV Diagnosis: Type 1 diabetes mellitus without complications[ICD10: E10.9] Diagnosis: Essential (primary) hypertension[ICD10: I10] Dominique Recinos MD, [facility] CPT-4: 38468 09/19/2015 ([id number]) 21260 EST. P ATIENT, LEVEL IV Diagnosis: Essential (primary) hypertension[ICD10: I10] Diagnosis: Mixed hyperlipidemia[ICD10: E78.2] Diagnosis: Type 1 diabetes mellitus without complications[ICD10: E10.9] Dominique Recinos MD, [facility] CPT-4: 95623 07/19/2015 ([id number]) 32810 EST. P ATIENT, LEVEL IV Diagnosis: Other specified dorsopathies, lumbar region[ICD10: M53.86] Diagnosis: Urge incontinence[ICD10: N39.41] Diagnosis: Type 1 diabetes mellitus without complications[ICD10: E10.9] DREW Del Rsoario MD CPT-4: 46996 03/22/2015 ([id number]) 08190 EST. P ATIENT, LEVEL IV Diagnosis: Essential (primary) hypertension[ICD10: I10] Diagnosis: Other specified dorsopathies, lumbar region[ICD10: M53.86] Diagnosis: Other chronic pain[ICD10: G89.29] DREW Del Rosario MD CPT-4: 22579 02/15/2015 ([id number]) 45245 EST. P ATIENT, LEVEL IV Diagnosis: ESSENTIAL HYPERTENSION[ICD9: 401.9] Diagnosis: DIABETES TYPE II[ICD9: 250.00] Diagnosis: FALL FROM LADDER[ICD9: E881.0] Diagnosis: Right hip pain[ICD9: 719.45] Diagnosis: Left hand pain[ICD9: 729.5] Diagnosis: Sacroiliac joint pain[ICD9: 724.6] Dominique Recinos MD, [facility] CPT- 4: 71930 11/15/2014 ([id number]) OFFICE VISI T, NEW - LEVEL 4 Diagnosis: DIABETES TYPE II[ICD9: 250.00] Diagnosis: ESSENTIAL HYPERTENSION[ICD9: 401.9] Diagnosis: HYPERLIPIDEMIA[ICD9: 272.4] Dominique Recinos MD, [facility] CPT-4: 70768 08/13/2014 Plan of Care Planned Activity Notes [...] a thorn from the lesion today. 08/28/2018 Patient Education: Patient Medication Summary Completed 08/28/2018 Patient Education: Diabetes Completed 08/28/2018 Appointment: Dominique Recinos WPtel: [phone] [facility] (15 min) Moderate 08/13/2018 Visit Plan: Hypertension [...] less controlled. 04/28/2018 Appointment: [phone] (15 min) Moderate 04/28/2018 Patient Education: Patient [...] while seated. 12/25/2017 Appointment: [facility]inos [facility]Ptel[phone] [facility] [place] (15 min) Moderate 12/25/2017 Patient Education: Patient Medication Summary Completed 12/25/2017 Patient Education: Diabetes Completed 12/25/2017 Appointment: Dominique Recinos WPtel: [phone] [facility] [place] (15 min) Moderate 12/09/2017 Visit Plan: Diverticulitis - rx for antibiotic sent to pt's pharmacy - pt advised to avoid seeds, nuts, popcorn, or any other food which has been proven to upset the pt's stomach. 11/22/2017 [phone] [place] (15 min) Moderate 11/22/2017 Patient Education: [...] 10/08/2017 Visit Plan: Diabetes Mellitus - con alice [...] glucose. 10/07/2017 Appointment: [facility]el[phone] [facility] [place] (15 min) Moderate 10/07/2017 Patient Education: Patient [...] in clinic. 09/16/2017 Appointment: [facility]ann [facility]el[phone] [place] (15 min) Moderate 09/16/2017 Patient Education: [...] home. 09/09/2017 Appointment: [facility]inos [facility]Ptel: [phone] [facility] [place] (15 min) Moderate 09/09/2017 Patient Education: Patient Medication Summary Completed 09/09/2017 Appointment: Maile Randolph WPtel: [phone] [phone] [place] (15 min) Moderate 09/06/2017 Appointment: Domin[facility]inos [facility]Ptel: [phone] [facility] (15 min) Moderate 09/05/2017 App[facility]ment[facility]ann [phone] [place] (15 min) Moderate 07/22/2017 Patient Education: [...] less controlled. 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 ipro placed today - by [employer] SALES REPRESENTATIVE - pt to RTC on Saturday for [...] to medications. 07/16/2017 Appointment: Dominique Recinos WPtel: [facility] (15 min) Moderate 07/16/2017 Patient Education: Patient Medication Summary Completed 07/16/2017 Visit Plan: Sinusitis - Pt has acut e infection - pain in face, maxillary region, Pt informed to use decongestant, RX given to patient, sinus rinses also recommended. Call if symptoms do not show improvement. 06/14/2017 Appointment: Maile Randolph WPtel: [phone] [place] (30 min) Complex 06/14/2017 Patient Education: Patient [...] at home. 06/10/2017 Appointment: Dominique Recinos WPtel: [facility] (15 min) Moderate 06/10/2017 Patient Education: Patient Medication Summary Completed 06/10/2017 Appointment: [facility] Spann [facility]el[phone] [facility] [place] (30 min) Complex 06/03/2017 Visit Plan: Hypertension - well con trolawrenceed - continue with current medications, continue with [...] controlled. 05/13/2017 Appointment: Domin[facility] Recinos WPtel: [phone] [facility] [place] (15 min) Moderate 05/13/2017 Patient Education: Patient Medication Summary Completed 05/13/2017 Appointment: Domin[facility] Recinos WPtel: [phone] [facility] [place] (30 min) Complex 05/03/2017 Appointment: [facility]ann [facility]el[phone] [place] (15 min) Moderate 04/12/2017 Appointment: Domin[facility] Recinos WPtel: [phone] [facility] [place] (15 min) Moderate 04/11/2017 Appointment: Dominique Recinos WPtel: [phone] [facility] [place] (15 min) Moderate 04/10/2017 Appointment: Dominique Recinos WPtel: [facility] [place] (15 min) Moderate 04/02/2017 Visit Plan: [...] of injection. 03/26/2017 Appointment: Fatmata Spann WPtel: [phone] [facility] (30 min) Complex 03/26/2017 Appointment: Dominique Recinos WPtel: [phone] [facility] (15 min) Moderate 03/26/2017 Patient Education: Patient [...] at home. 02/19/2017 Appointment: Dominique Recinos WPtel: [phone] [facility] (15 min) Moderate 02/19/2017 Patient Education: Patient Medication Summary Completed 02/19/2017 Patient Education: Hypertension Completed 02/19/2017 Appointment: Dominique Recinos WPtel: [facility] [place] (15 min) Moderate 02/12/2017 Visit [...] above 100F. 01/16/2017 Appointment: Dominique Recinos WPtel: [facility] (15 min) Moderate 01/16/2017 Patient Education: Patient [...] at home. 01/08/2017 Appointment: Dominique Recinos WPtel: [facility] (15 min) Moderate 01/08/2017 Patient Education: Patient Medication Summary Completed 01/08/2017 Patient Education: Hypertension Completed 01/08/2017 Appointment: Dominique Recinos WPtel: [facility] [place] (15 min) Moderate 12/31/2016 Appointment: Dominique Recinos WPtel: [facility] (15 min) Moderate 12/18/2016 Visit Plan: Hypertension [...] less controlled. 11/21/2016 Appointment: Dominique Recinos WPtel: [address] [place], [place] [address] (15 min) Moderate 11/21/2016 Patient Education: Patient [...] potatoes, creamy coleslaw, etc. -- referral to commission specialist. Hyperlipidemia - pt has been counseled [...] coleslaw, etc. 10/16/2016 Appointment: Dominique Recinos WPtel: [phone] [facility] [place] (15 min) Moderate 10/16/2016 Patient Education: Patient Medication Summary Completed 10/16/2016 Patient Education: Hypertension Completed 10/16/2016 Patient Education: Patient Medication Summary Completed 10/09/2016 Care Plan: Free T4 Pending 10/09/2016 Visit Plan: COPD exacerbation-cough -symptoms resolved-call if symptoms return-monitor blood sugars closely for the next few days and discussed diet. 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 10/01/2016 Appointment: Maile Randolph WPtel: [phone] (30 min) Complex 10/01/2016 Patient Education: Patient Medication Summary Completed 10/01/2016 Visit Plan: Bronchitis - acute case of bronchitis identified. Pt has been given antibiotics, breathing treatments as appropriate, and pt has been instructed to call if symptoms are not improved, or if symptoms acutely worsen. 09/27/2016 Appointment: Maile Randolph WPtel: [phone] (30 min) Complex 09/27/2016 Patient Education: Patient Medication Summary Completed 09/27/2016 Visit Plan: Diabetes Mellitus - roxie jenkins - per recent FSBS reports. I have [...] less controlled. 07/19/2016 Appointment: Dominique Recinos WPtel: [facility] (15 min) Moderate 07/19/2016 Patient Education: Patient [...] surrogate. 07/10/2016 Appointment: [facility]mata Spann [facility]Ptel[phone] [facility] - Annual Wellness Visit 07/10/2016 Patient Education: [...] improving 07/09/2016 Appointment: Dominique Recinos WPtel: [phone] [facility] (15 min) Moderate 07/09/2016 Patient Education: Patient Medication Summary Completed 07/09/2016 Patient Education: Hypertension Completed 07/09/2016 Appointment: Dominique Recinos WPtel: [phone] [facility] (15 min) Moderate 06/26/2016 Visit Plan: Hypertension [...] me dications. 06/06/2016 Appointment: Dominique Recinos WPtel: [phone] [facility] (15 min) Moderate 06/06/2016 Patient Education: Patient Medication Summary Completed 06/06/2016 Appointment: Dominique Recinos WPtel: [facility] (15 min) Moderate 04/30/2016 Visit Plan: URI [...] allergy spray. 04/03/2016 Appointment: Fatmata Spann WPtel: [phone] [facility] (30 min) Complex 04/03/2016 Patient Education: Patient [...] Hypertension Completed 12/26/2015 Appointment: Dominique Recinos WPtel: [phone] [facility] (15 min) Moderate 12/19/2015 Visit Plan: Diabetes [...] at home. 09/19/2015 Appointment: Dominique Recinos WPtel: [phone] [facility] (15 min) Moderate 09/19/2015 Patient Education: Patient [...] dications. 07/19/2015 Appointment: Dominique Recinos WPtel: [phone] [facility] (15 min) Moderate 07/19/2015 Patient Education: Patient Medication Summary Completed 07/19/2015 Referral: External, Ordering Provider Referral Completed 03/30/2015 Visit Plan: Diabetes Mellitus - con sandralled - per recent FSBS reports. I have [...] q10. Back pain - referral to [facility] physical therapy for further eval and treat. 03/22/2015 Appointment: Dominique Recinos WPtel: [phone] [facility] (15 min) Moderate 03/22/2015 Patient Education: Patient Medication Summary Completed 03/22/2015 Care Plan: Referral Order SNOMED-CT : [id number] Ordered 03/22/2015 Visit Plan: Hypertension - well [...] dications. 08/13/2014 Appointment: Dominique Recinos WPtel: [phone] [facility] [place] (S) New Patient 08/13/2014 Patient [...] potatoes, creamy coleslaw, etc. -- referral to commission specialist. Hyperlipidemia - pt has been counseled [...] at home. wound on leg - from [facility] - pt is to use neosporin on [...] show improvement. two old goats - from [employer] and home . Hypertension - well controlled [...] less controlled. 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 ipro placed today - by [employer] RE[employer]ENT[employer]IVE - pt to RTC on Saturday for [...] q10. Back pain - referral to [facility] physical therapy for further eval and treat.
--- OUTSIDE RECORDS SUMMARY | 2019-06-14 16:56 | XMS REPORT | CCD ---
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 Role Phone PP Unavailable CCM Unavailable Summary Purpose Interface Exchange Insurance Providers Payer name Policy type / Coverage type Covered constitution party ID Effective Begin Date Effective End Date WPS Medicare Part B Medicare Part B [id number] Unknown [facility] ica Part B [id number] Un known Family history Mother Diagnosis Age At Onset No Family Disease Entered N/A Father Diagnosis Age At Onset Heart Attack Unknown Diabetes Unknown Social History Social History Element Codes Description Effective Dates Number of children Unknown 2 Sons, 5 grandchildren, 11 great grandchildren 01/08/2017 Marital status Unknown W [place] in 201606/06/[address]: 318340628 Never smoker 08/13/[address]: 176817210 Never drinks alcohol 08/13/2014 Allergies, Adverse Reactions, Alerts Substance Reaction Codes Entered Date Inactivated Date Status * NO KNOWN DRUG ABE RGIES Unknown 11/15/2014 No Inactive Date Active Past Medical History Illness Codes Condition Status Onset Date Resolved Date Essential (primary) hypertension ICD-9: 401.1 ICD-10: I10 Active 05/13/2017 Unknown Trigger finger, righ t middle finger ICD-9: 727.03 ICD-10: M65.331 Active 04/28/2018 Unknown Type 2 diabetes kristy itus with hyperglycemia ICD-9: 250.02 ICD-10: E11.65 Active 09/16/2017 Unknown Localized edema ICD-9: 782.3 ICD-10: R60.0 [...] hypertension ICD-9: 401.1 ICD-10: I10 05/13/2017 Active Trigger finger, righ t middle finger ICD-9: 727.03 ICD-10: M65.331 04/28/2018 Active Type 2 diabetes kristy itus with hyperglycemia ICD-9: 250.02 ICD-10: E11.65 09/16/2017 Active Localized edema ICD-9: 782.3 ICD-10: R60.0 [...] Date Stop Date Sta tus Fill Instructions Benicar 40 mg tablet RxNorm: 150025 Tablet(s) TAKE ONE TABLET BY MOUTH DAILY 08/06/2018 07/31/2019 Ac tive FreeStyle Lite Strips RxNorm: USE STRIP TO TEST SEVEN TIMES A DAY 07/10/2018 08/11/2018 In active Zocor 20 mg tablet RxNorm: 500412 1 Tablet(s) PO daily 06/10/2018 06/04/2019 Active Benicar 40 mg tablet RxNorm: 709137 Tablet(s) TAKE ONE TABLET BY MOUTH DAILY 06/06/2018 06/25/2018 In active metoprolol tartrate 50 mg tablet RxNorm: 446767 TAKE ONE TABLET BY MO UTH TWICE A DAY 05/19/2018 05/13/2019 Ac tive hydrochlorothiazide 12.5 mg capsule RxNorm: 924465 TAKE ONE CAPSULE BY M OUTH DAILY 05/19/2018 05/13/2019 Ac tive Atacand 32 mg tablet RxNorm: 649915 1 Tablet(s) PO daily 05/12/2018 05/11/2018 Inactive This is to replace benicar [place] 32 mg tablet RxNorm: 344602 1 Tablet(s) PO daily 05/12/2018 06/05/2018 Inactive This is to replace benicar Benicar 40 mg tablet RxNorm: 257841 TAKE ONE TABLET BY MOUTH DAILY 05/07/2018 05/06/2018 In active Benicar 40 mg tablet RxNorm: 450019 Tablet(s) TAKE ONE TABLET BY MOUTH DAILY 05/07/2018 05/11/2018 In active Zoloft 50 mg tablet RxNorm: 423052 TAKE ONE TABLET BY MOUTH DAILY 04/28/2018 04/22/2019 Ac tive gabapentin 100 mg ca psule RxNorm: 878428 TAKE ONE CAPSULE BY M OUTH THREE TIMES A DAY 04/09/2018 07/16/2018 Inactive Novolog U-100 Insuli n aspart 100 unit/mL subcutaneous solution RxNorm: 090551 SSI 5 units over 150 and for every additional 50 add 2 units Unit(s) SQ TID adjust as needed for glucose control 12/25/2017 07/22/2018 Inactive Cipro 500 mg tablet RxNorm: 730847 1 Tablet(s) PO BID 11/22/2017 12/01/2017 Inactive clotrimazole 1 % top ical cream RxNorm: 902460 1 Application TOP BID 11/22/2017 12/05/2017 Inactive Flagyl 500 mg tablet RxNorm: 196433 1 Tablet(s) PO TID 11/22/2017 12/01/2017 Inactive Lantus U-100 Insulin 100 unit/mL subcutaneous solution RxNorm: 982336 17 Unit(s) SQ QAM 11/11/2017 07/08/2018 Inactive Novolog U-100 Insuli n aspart 100 unit/mL subcutaneous solution RxNorm: 394163 SSI 5 units over 150 and for every additional 50 add 2 units Unit(s) SQ TID adjust as needed for glucose control 11/11/2017 12/24/2017 Inactive gabapentin 100 mg ca psule RxNorm: 726976 TAKE ONE CAPSULE BY M OUTH THREE TIMES A DAY 11/05/2017 02/11/2018 Inactive Kenalog 40 mg/mL fanny pension for injection RxNorm: 4609334 1 Milliliter(s) Inj 06/14/2017 06/14/2017 In active Flonase Allergy Reli ef 50 mcg/actuation nasal spray,suspension RxNorm: 4629338 2 [place] NASAL daily 06/14/2017 06/20/2017 Inactive doxycycline hyclate 100 mg tablet RxNorm: 482446 1 Tablet(s) PO BID 06/14/2017 06/20/2017 Inactive Lantus U-100 Insulin 100 unit/mL subcutaneous solution RxNorm: 788573 17 Unit(s) SQ QAM 06/10/2017 07/09/2017 Inactive gabapentin 100 mg ca psule RxNorm: 617112 TAKE ONE CAPSULE BY M OUTH THREE TIMES A DAY 05/23/2017 08/29/2017 Inactive Lantus U-100 Insulin 100 unit/mL subcutaneous solution RxNorm: 625603 15 Unit(s) SQ QAM 05/14/2017 06/09/2017 Inactive Novolog U-100 Insuli n aspart 100 unit/mL subcutaneous solution RxNorm: 528106 SSI 5 units over 150 and for every additional 50 add 2 units Unit(s) SQ TID adjust as needed for glucose control 04/24/2017 11/10/2017 Inactive Zocor 20 mg tablet RxNorm: 217637 1 Tablet(s) PO daily 04/05/2017 03/30/2018 Inactive Kenalog 40 mg/mL fanny pension for injection RxNorm: 9195472 1 Milliliter(s) Inj 03/26/2017 03/26/2017 In active Novolog 100 unit/mL subcutaneous solution RxNorm: 473485 SSI 5 units over 150 and for every additional 50 add 2 units Unit(s) SQ TID adjust as needed for glucose control 02/19/2017 04/23/2017 Inactive Lantus 100 unit/mL s ubcutaneous solution RxNorm: 881668 10 Unit(s) SQ QAM 02/19/2017 05/13/2017 In active ceftriaxone 500 mg s olution for injection RxNorm: 8353254 Inj 01/16/2017 01/16/2017 Inactive Lantus 100 unit/mL s ubcutaneous solution RxNorm: 953655 7 Unit(s) SQ QAM 01/16/2017 02/18/2017 In active Lantus 100 unit/mL s ubcutaneous solution RxNorm: 742648 10 Unit(s) SQ daily 01/08/2017 05/12/2017 In active gabapentin 100 mg ca psule RxNorm: 354065 TAKE ONE CAPSULE BY M OUTH THREE TIMES A DAY 11/30/2016 02/03/2017 Inactive Zoloft 50 mg tablet RxNorm: 129476 TAKE ONE TABLET BY MOUTH DAILY 10/30/2016 04/27/2017 In active Zocor 20 mg tablet RxNorm: 351970 1 Tablet(s) PO daily 10/16/2016 04/04/2017 Inactive stop the 40mg dose of zocor, start on 20 mg Lantus 100 unit/mL s ubcutaneous solution RxNorm: 062481 15 Unit(s) SQ daily 10/16/2016 01/07/2017 In active Novolog 100 unit/mL subcutaneous solution RxNorm: 048168 SSI 5 units over 150 and for every additional 50 add 2 units Unit(s) SQ TID adjust as needed for glucose control 10/16/2016 02/18/2017 Inactive prednisone 20 mg tablet RxNorm: 760891 1 Tablet(s) PO BID 10/01/2016 10/05/2016 Inactive Kenalog 40 mg/mL fanny pension for injection RxNorm: 1467902 1 Milliliter(s) Inj 09/27/2016 09/27/2016 In active Zithromax Z-Kishor 250 mg tablet RxNorm: 019023 1 Tablet(s) PO UD 09/27/2016 10/01/2016 Inactive ceftriaxone 500 mg s olution for injection RxNorm: 6785086 1 Milliliter(s) Inj 09/27/2016 09/27/2016 In active Augmentin 500 mg-125 mg tablet RxNorm: 058620 1 Tablet(s) PO BID 09/22/2016 09/26/2016 Inactive Tessalon Perles 100 mg capsule RxNorm: 563773 1 Capsule(s) PO Q8 OR N as needed 09/22/2016 04/27/2018 In active metoprolol tartrate 50 mg tablet RxNorm: 636278 TAKE ONE TABLET BY MO UT TWICE A DAY 08/02/2016 07/27/2017 Inactive Novolog 100 unit/mL subcutaneous solution RxNorm: 674448 10 Unit(s) SQ TID adj ust as needed for glucose control 07/19/2016 10/15/2016 Inactive Humalog 100 unit/mL subcutaneous solution RxNorm: 135058 INJECT 10 UNITS UNDER THE SKIN BEFORE EACH MEAL 07/16/2016 07/16/2016 Inactive Kenalog 40 mg/mL fanny pension for injection RxNorm: 2831371 1 Milliliter(s) Inj 07/09/2016 07/09/2016 In active ceftriaxone 500 mg s olution for injection RxNorm: 4064479 Inj 07/09/2016 07/09/2016 Inactive Lantus 100 unit/mL s ubcutaneous solution RxNorm: 516246 Unit(s) INJECT 13 UNI TS UNDER THE SKIN IN THE MORNING 06/06/2016 10/15/2016 Inactive Zoloft 50 mg tablet RxNorm: 183006 TAKE ONE TABLET BY MOUTH DAILY 04/27/2016 07/25/2016 In active Lantus 100 unit/mL s ubcutaneous solution RxNorm: 359717 INJECT 20 UNITS UNDER THE SKIN AT BEDTIME 04/27/2016 06/05/2016 Inactive amoxicillin 500 mg c apsule RxNorm: 718964 1 Capsule(s) PO TID 04/03/2016 04/12/2016 Inactive Zyrtec 10 mg tablet RxNorm: 9314819 1 Tablet(s) PO daily 04/03/2016 05/02/2016 Inactive hydrochlorothiazide 12.5 mg capsule RxNorm: 086642 TAKE ONE CAPSULE BY M OUTH DAILY 03/12/2016 12/06/2016 In active Benicar 40 mg tablet RxNorm: 491779 1 Tablet(s) PO daily 02/28/2016 04/27/2016 Inactive Benicar 40 mg tablet RxNorm: 778755 1 Tablet(s) PO daily 02/20/2016 02/27/2016 Inactive gabapentin 100 mg ca psule RxNorm: 409594 TAKE ONE CAPSULE BY M OUT THREE TIMES A DAY 01/09/2016 04/16/2016 Inactive metoprolol tartrate 50 mg tablet RxNorm: 919132 TAKE ONE TABLET [facility] TWICE A DAY 01/09/2016 04/07/2016 Inactive Humalog 100 unit/mL subcutaneous solution RxNorm: 130451 5-10 Unit(s) SQ AC 07/19/2015 07/18/2016 In active Lantus 100 unit/mL s ubcutaneous solution RxNorm: 346541 13 Unit(s) SQ QAM 07/19/2015 01/15/2017 In active Lantus 100 unit/mL s ubcutaneous solution RxNorm: 614897 20 Unit(s) SQ QHS 07/14/2015 07/18/2015 In active Zoloft 50 mg tablet RxNorm: 954788 1 Tablet(s) PO daily 05/19/2015 09/15/2015 Inactive Humalog 100 unit/mL subcutaneous solution RxNorm: 434968 10 Unit(s) SQ AC 05/11/2015 07/18/2015 In active metoprolol tartrate 50 mg tablet RxNorm: 072459 1 Tablet(s) PO BID 04/28/2015 08/25/2015 Inactive Lantus 100 unit/mL s ubcutaneous solution RxNorm: 969319 20 Unit(s) SQ QHS 04/28/2015 07/13/2015 In active Vesicare 10 mg tablet RxNorm: 739350 1 Tablet(s) PO QPM 03/22/2015 09/18/2015 Inactive hydrochlorothiazide 12.5 mg capsule RxNorm: 929600 1 Tablet(s) PO daily 01/04/2015 12/29/2015 In active gabapentin 100 mg ca psule RxNorm: 982402 1 Capsule(s) PO TID 11/29/2014 03/28/2015 Inactive [...] Date Active aspirin 81 mg tablet RxNorm: 115605 1 Tablet(s) PO daily No Start Date Active doxazosin 2 mg tablet RxNorm: 340770 1 Tablet(s) PO QHS No Start Date Active Fish Oil oral RxNorm: 6388664 oral No Start Date Active multivitamin capsule RxNorm: 1 Capsule(s) PO daily No Start Date Active Humalog 100 unit/mL subcutaneous solution RxNorm: 524010 Unit(s) SQ No Start Date 05/10/2015 Inactive Zoloft 50 mg tablet RxNorm: 491337 1 Tablet(s) PO daily No Start Date 05/18/2015 Inactive gabapentin 100 mg ca psule RxNorm: 035418 1 Capsule(s) PO daily No Start Date 11/28/2014 Inactive metoprolol tartrate 50 mg tablet RxNorm: 108471 1 Tablet(s) PO TID No Start Date 04/27/2015 Inactive Benicar 40 mg tablet RxNorm: 570177 1 Tablet(s) PO daily No Start Date 02/19/2016 Inactive hydrochlorothiazide 25 mg tablet RxNorm: 714903 1 Tablet(s) PO daily No Start Date 01/03/2015 Inactive Lantus 100 unit/mL s ubcutaneous solution RxNorm: 558587 13 Unit(s) SQ No Start Date 04/27/2015 Inactive Zocor 40 mg tablet RxNorm: 692184 1 Tablet(s) PO daily No Start Date 10/15/2016 Inactive Medication Administered Medication Codes Instruc tions Start Date Status Kenalog 40 mg/mL suspension for injection RxNorm: 4510551 1Milliliter 06/14/2017 N o longer Active Kenalog 40 mg/mL suspension for injection RxNorm: 0670634 1Milliliter 03/26/2017 N o longer Active ceftriaxone 500 mg solution for injection RxNorm: 7148065 01/16/2017 No longer A ctive Kenalog 40 mg/mL suspension for injection RxNorm: 4565549 1Milliliter 09/27/2016 N o longer Active ceftriaxone 500 mg solution for injection RxNorm: 2173002 1Milliliter 09/27/2016 N o longer Active Kenalog 40 mg/mL suspension for injection RxNorm: 9055611 1Milliliter 07/09/2016 N o longer Active ceftriaxone 500 mg solution for injection RxNorm: 1927679 07/09/2016 No longer A ctive Immunizations Vaccine Codes Date Status Influenza CVX: 141 12/28 completed Pneumococcal CVX: 133 completed Influenza CVX: 141 11/12 completed Pneumococcal (Adult) CVX: 133 02/15/2015 completed Influenza CVX: 141 12/10 completed Influenza CVX: 141 12/02 completed Pneumococcal CVX: 33 03/2013 completed Tetanus, Diptheria, Pertussis CVX: 113 12/02/2013 completed Tetanus/Diptheria CVX: 113 12/02/2013 completed Assessments Condition Codes Effectiv e Dates Type 2 diabetes mellitus with hyperglycemia ICD-10: E11.65 ICD-9: 250.02 04/28/2018 Essential (primary) hypertension ICD -10: I10 ICD-9: 401.1 04/28/2018 Trigger finger, right middle finger ICD-10: M65.331 [...] Visit Reason For Visit Effective Dates Notes diarrhea 04/28/2018 righ t hand diarrhea 12/25/2017 [...] Observation Code Item Item Code Result Date Cbc With Differential Ord2 WBC 3.80 K/ul [...] 31.1 pg 08/13/2018 Cbc With Differential Ord2 [place]% 9.5 % 08/13/2018 Cbc With Differential Ord2 MCHC 33.2 pg 08/13/2018 Cbc With Differential Ord2 Eos% 2.1 % 08/13/2018 Cbc With Differential Ord2 PLT 193 K/ul 08/13/2018 Cbc With Differential Ord2 Baso% 0.3 % 08/13/2018 Cbc With Differential Ord2 RDW 13.0 % 08/13/2018 Cbc With Differential Ord2 Neut ABS# 2.70 K/ul 08/13/2018 Cbc With Differential Ord2 Lymph ABS# 0.65 K/ul 08/13/2018 Cbc With Differential Ord2 [place] ABS# 0.4 K/ul 08/13/2018 Cbc With Differential Ord2 Eos ABS# 0.1 K/ul 08/13/2018 Cbc With Differential Ord2 Baso ABS# 0.0 K/ul 08/13/2018 Comp Metabolic Ijo674 NA 137 mEq/L 04/28/2018 Comp Metabolic Jgu237 K 4.1 mEq/L 04/28/2018 Comp Metabolic Diq697 CL 101 mEq/L 04/28/2018 Comp Metabolic Kab268 CO2 28.0 mEq/L 04/28/2018 Comp Metabolic Nwb318 AN ION GAP 12 04/28/2018 Comp Metabolic Zlk343 GL UCOSE 195 mg/dL 04/28/2018 Comp Metabolic Ehc574 Cr eat 0.7 mg/dL 04/28/2018 Comp Metabolic Gdb349 eG FR 81 ml/min/1.73m2 04/28 Comp Metabolic Vvq505 BUN 24 mg/dL 04/28/2018 Comp Metabolic Opy125 B/ C Ratio 33.3 Ratio 04/28/2018 Comp Metabolic Hsu911 CA LCIUM 9.4 mg/dL 04/28/2018 Comp Metabolic Voc033 AL K PHOS 72 U/L 04/28/2018 Comp Metabolic Ogv633 T(SGOT) 15 U/L 04/28/2018 Comp Metabolic Ryn579 AL T(SGPT) 11 U/L 04/28/2018 Comp Metabolic Ygq644 BI LI T 0.6 mg/dL 04/28/2018 Comp Metabolic Tqi937 AL BUMIN 4.0 g/dL 04/28/2018 Comp Metabolic Dmx200 TP RO 6.1 g/dL 04/28/2018 Comp Metabolic Fod664 GL OB 2.1 g/dL 04/28/2018 Comp Metabolic Ood987 A/ G Ratio 2.0 Ratio 04/28/2018 Comp Metabolic Oyj241 Os mo 283 mOsmo 04/28/2018 %Hba1C Mtc176 % HbA1c 82173-2 7.5 % 04/28/2018 %Hba1C Uoa254 Gluc Ave 169 mg/dL 04/28/2018 %Hba1C Siy820 % HbA1c 35365-0 7.1 % 12/25/2017 %Hba1C Luk990 Gluc Ave 157 mg/dL 12/25/2017 Comp Metabolic Lpr597 NA 139 mEq/L 12/25/2017 Comp Metabolic Fcr092 K 4.1 mEq/L 12/25/2017 Comp Metabolic Pqt599 CL 104 mEq/L 12/25/2017 Comp Metabolic Nzq570 CO2 28.0 mEq/L 12/25/2017 Comp Metabolic Col856 AN ION GAP 11 12/25/2017 Comp Metabolic Cbz193 GL UCOSE 129 mg/dL 12/25/2017 Comp Metabolic Tek868 Cr eat 0.7 mg/dL 12/25/2017 Comp Metabolic Shz995 eG FR 83 ml/min/1.73m2 12/25 Comp Metabolic Rkw183 BUN 22 mg/dL 12/25/2017 Comp Metabolic Luq972 B/ C Ratio 31.0 Ratio 12/25/2017 Comp Metabolic Slb442 CA LCIUM 9.4 mg/dL 12/25/2017 Comp Metabolic Nip705 AL K PHOS 70 U/L 12/25/2017 Comp Metabolic Eav721 T(SGOT) 16 U/L 12/25/2017 Comp Metabolic Ode653 AL T(SGPT) 12 U/L 12/25/2017 Comp Metabolic Fjv915 BI LI T 0.5 mg/dL 12/25/2017 Comp Metabolic Yyd264 AL BUMIN 4.2 g/dL 12/25/2017 Comp Metabolic Nsj857 TP RO 6.1 g/dL 12/25/2017 Comp Metabolic Awa527 GL OB 1.9 g/dL 12/25/2017 Comp Metabolic Csy886 A/ G Ratio 2.1 Ratio 12/25/2017 Comp Metabolic Pir976 Os mo 283 mOsmo 12/25/2017 %Hba1C Dwd493 % HbA1c 07204-6 8.0 % 05/13/2017 %Hba1C Pwr746 Gluc Ave 183 mg/dL 05/13/2017 Comp Metabolic Cne312 NA 135 mEq/L 05/13/2017 Comp Metabolic Tnh240 K 3.8 mEq/L 05/13/2017 Comp Metabolic Wyy431 CL 99 mEq/L 05/13/2017 Comp Metabolic Dha751 CO2 29.0 mEq/L 05/13/2017 Comp Metabolic Yhh600 AN ION GAP 11 05/13/2017 Comp Metabolic Vnv630 GL UCOSE 155 mg/dL 05/13/2017 Comp Metabolic Cwm540 Cr eat 0.7 mg/dL 05/13/2017 Comp Metabolic Ipw090 eG FR 90 ml/min/1.73m2 05/13 Comp Metabolic Ajk815 BUN 18 mg/dL 05/13/2017 Comp Metabolic Vei672 B/ C Ratio 27.3 Ratio 05/13/2017 Comp Metabolic Dho285 CA LCIUM 8.9 mg/dL 05/13/2017 Comp Metabolic Pnq418 AL K PHOS 90 U/L 05/13/2017 Comp Metabolic Nem185 T(SGOT) 18 U/L 05/13/2017 Comp Metabolic Ljh086 AL T(SGPT) 15 U/L 05/13/2017 Comp Metabolic Kzd660 BI LI T 0.5 mg/dL 05/13/2017 Comp Metabolic Vkx472 AL BUMIN 4.0 g/dL 05/13/2017 Comp Metabolic Lmw530 TP RO 5.9 g/dL 05/13/2017 Comp Metabolic Zld009 GL OB 1.9 g/dL 05/13/2017 Comp Metabolic Shk429 A/ G Ratio 2.1 Ratio 05/13/2017 Comp Metabolic Ptr037 Os mo 275 mOsmo 05/13/2017 Urine Culture Ucult Prel iminary NO Growth Day 1 01/18 Urine Culture Ucult Comp lete NO Growth Day 2 01/18 Free T4 Uyi770 FREE T4 1.13 ng/dL 10/09/2016 Tsh Ord6 [...] 31.5 pg 10/08/2016 Cbc With Differential Ord2 [place]% 4.0 % 10/08/2016 Cbc With Differential Ord2 [...] 0.96 K/ul 10/08/2016 Cbc With Differential Ord2 [place] ABS# 0.4 K/ul 10/08/2016 Cbc With Differential Ord2 Eos ABS# 0.0 K/ul 10/08/2016 Cbc With Differential Ord2 Baso ABS# 0.0 K/ul 10/08/2016 Comp Metabolic Zij383 NA 135 mEq/L 10/08/2016 Comp Metabolic Wzc243 K 4.3 mEq/L 10/08/2016 Comp Metabolic Nxe608 CL 98 mEq/L 10/08/2016 Comp Metabolic Ljx892 CO2 22.0 mEq/L 10/08/2016 Comp Metabolic Zgk273 AN ION GAP 19 10/08/2016 Comp Metabolic Ktt502 GL UCOSE 400 mg/dL 10/08/2016 Comp Metabolic Lcu596 Cr eat 0.7 mg/dL 10/08/2016 Comp Metabolic Vht834 eG FR 79 ml/min/1.73m2 10/08 Comp Metabolic Ryf183 BUN 27 mg/dL 10/08/2016 Comp Metabolic Bvr804 B/ C Ratio 36.5 Ratio 10/08/2016 Comp Metabolic Tkp790 CA LCIUM 9.1 mg/dL 10/08/2016 Comp Metabolic Qyz229 AL K PHOS 65 U/L 10/08/2016 Comp Metabolic Xqq437 T(SGOT) 28 U/L 10/08/2016 Comp Metabolic Rmt726 AL T(SGPT) 24 U/L 10/08/2016 Comp Metabolic Jqr510 BI LI T 0.7 mg/dL 10/08/2016 Comp Metabolic Ryo034 AL BUMIN 3.8 g/dL 10/08/2016 Comp Metabolic Wnl011 TP RO 6.0 g/dL 10/08/2016 Comp Metabolic Pca821 GL OB 2.2 g/dL 10/08/2016 Comp Metabolic Ksr028 A/ G Ratio 1.7 Ratio 10/08/2016 Comp Metabolic Bhh405 Os mo 292 mOsmo 10/08/2016 %Hba1C Lix451 % HbA1c 56718-2 7.0 % 10/08/2016 %Hba1C Owk922 Gluc Ave 154 mg/dL 10/08/2016 Microalbumin Eqc234 Micr oAlb <0.7 mg/dL 10/08/2016 Lipid Ord30 [...] OK? TNP:Duplicate Order 04/03/2016 C A/B FLU 9858339 Influe nza A Scr Negative 04/03/2016 C A/B FLU [id number] Influe nza B Scr Negative 04/03/2016 Comp Metabolic Jcs137 NA 138 mEq/L 09/15/2015 Comp Metabolic Ffz834 K 4.4 mEq/L 09/15/2015 Comp Metabolic Sbi834 CL 103 mEq/L 09/15/2015 Comp Metabolic Poj546 CO2 29.0 mEq/L 09/15/2015 Comp Metabolic Urm206 AN ION GAP 10 09/15/2015 Comp Metabolic Lra756 GL UCOSE 156 mg/dL 09/15/2015 Comp Metabolic Cfe592 Cr eat 0.7 mg/dL 09/15/2015 Comp Metabolic Ymi146 eG FR 79 ml/min/1.73m2 09/14 Comp Metabolic Wsj604 BUN 23 mg/dL 09/15/2015 Comp Metabolic Xjr782 B/ C Ratio 31.1 Ratio 09/15/2015 Comp Metabolic Dke164 CA LCIUM 9.1 mg/dL 09/15/2015 Comp Metabolic Ner153 AL K PHOS 58 U/L 09/15/2015 Comp Metabolic Goj676 T(SGOT) 19 U/L 09/15/2015 Comp Metabolic Umc407 AL T(SGPT) 11 U/L 09/15/2015 Comp Metabolic Ghj192 BI LI T 0.6 mg/dL 09/15/2015 Comp Metabolic Bfo785 AL BUMIN 3.9 g/dL 09/15/2015 Comp Metabolic Bfg722 TP RO 5.8 g/dL 09/15/2015 Comp Metabolic Sjr718 GL OB 1.9 g/dL 09/15/2015 Comp Metabolic Bex087 A/ G Ratio 2.1 Ratio 09/15/2015 Comp Metabolic Pgb454 Os mo 283 mOsmo 09/15/2015 Cbc With [...] 30.5 pg 09/15/2015 Cbc With Differential Ord2 [place]% 10.2 % 09/15/2015 Cbc With Differential Ord2 [...] 0.86 K/ul 09/15/2015 Cbc With Differential Ord2 [place] ABS# 0.5 K/ul 09/15/2015 Cbc With Differential Ord2 Eos ABS# 0.1 K/ul 09/15/2015 Cbc With Differential Ord2 Baso ABS# 0.0 K/ul 09/15/2015 Tsh Ord6 hTSH II 0.76 uIU/mL 09/15/2015 Lipid Ord30 CHOL 139 mg/dL 09/15/2015 Lipid Ord30 HDL 57.0 mg/dl 09/15/2015 Lipid Ord30 TRIG 76 mg/dL 09/15/2015 Lipid Ord30 LDL 67 mg/dL 09/15/2015 Lipid Ord30 C/HDL 2.4 Ratio 09/15/2015 %Hba1C Kfw666 % HbA1c 33444-5 6.6 % 09/15/2015 %Hba1C Uqi229 Gluc Ave 143 mg/dL 09/15/2015 Tsh Ord6 hTSH II 0.68 uIU/mL 06/02/2015 %Hba1C Pri175 % HbA1c 82848-0 6.5 % 06/02/2015 %Hba1C Ajl625 Gluc Ave 140 mg/dL 06/02/2015 Comp Metabolic Sru480 NA 139 mEq/L 06/02/2015 Comp Metabolic Mtr221 K 4.5 mEq/L 06/02/2015 Comp Metabolic Mlp704 CL 104 mEq/L 06/02/2015 Comp Metabolic Mmt267 CO2 25.0 mEq/L 06/02/2015 Comp Metabolic Plj675 AN ION GAP 15 06/02/2015 Comp Metabolic Yng732 GL UCOSE 123 mg/dL 06/02/2015 Comp Metabolic Ilk093 Cr eat 0.7 mg/dL 06/02/2015 Comp Metabolic Yqa053 eG FR 92 ml/min/1.73m2 06/01 Comp Metabolic Wzs531 BUN 21 mg/dL 06/02/2015 Comp Metabolic Pbk555 B/ C Ratio 32.3 Ratio 06/02/2015 Comp Metabolic Kns200 CA LCIUM 9.5 mg/dL 06/02/2015 Comp Metabolic Edi383 AL K PHOS 66 U/L 06/02/2015 Comp Metabolic Yrr421 T(SGOT) 19 U/L 06/02/2015 Comp Metabolic Hkm904 AL T(SGPT) 13 U/L 06/02/2015 Comp Metabolic Gyu930 BI LI T 0.5 mg/dL 06/02/2015 Comp Metabolic Olk118 AL BUMIN 4.0 g/dL 06/02/2015 Comp Metabolic Ibs083 TP RO 6.3 g/dL 06/02/2015 Comp Metabolic Zft057 GL OB 2.3 g/dL 06/02/2015 Comp Metabolic Dwc183 A/ G Ratio 1.7 Ratio 06/02/2015 Comp Metabolic Jtq069 Os mo 282 mOsmo 06/02/2015 %Hba1C Vbb485 % HbA1c 96280-4 6.7 % 02/17/2015 %Hba1C Sgn357 Gluc Ave 146 mg/dL 02/17/2015 Comp Metabolic Skp131 NA 133 mEq/L 02/17/2015 Comp Metabolic Ond897 K 4.3 mEq/L 02/17/2015 Comp Metabolic Dnz170 CL 99 mEq/L 02/17/2015 Comp Metabolic Ppn725 CO2 27.0 mEq/L 02/17/2015 Comp Metabolic Lla165 AN ION GAP 11 02/17/2015 Comp Metabolic Xps573 GL UCOSE 239 mg/dL 02/17/2015 Comp Metabolic Ybi023 Cr eat 0.7 mg/dL 02/17/2015 Comp Metabolic Pww356 eG FR 79 ml/min/1.73m2 02/17 Comp Metabolic Qxx074 BUN 24 mg/dL 02/17/2015 Comp Metabolic Umr287 B/ C Ratio 32.4 Ratio 02/17/2015 Comp Metabolic Gaw410 CA LCIUM 9.1 mg/dL 02/17/2015 Comp Metabolic Hqh402 AL K PHOS 75 U/L 02/17/2015 Comp Metabolic Xqr888 T(SGOT) 18 U/L 02/17/2015 Comp Metabolic Zvk071 AL T(SGPT) 11 U/L 02/17/2015 Comp Metabolic Mob794 BI LI T 0.6 mg/dL 02/17/2015 Comp Metabolic Anb620 AL BUMIN 4.2 g/dL 02/17/2015 Comp Metabolic Vbb279 TP RO 6.2 g/dL 02/17/2015 Comp Metabolic Mxe556 GL OB 2.0 g/dL 02/17/2015 Comp Metabolic Imn556 A/ G Ratio 2.1 Ratio 02/17/2015 Comp Metabolic Zly349 Os mo 278 mOsmo 02/17/2015 %Hba1C Nne155 % HbA1c 04303-6 6.7 % 11/15/2014 %Hba1C Tqk742 Gluc Ave 146 mg/dL 11/15/2014 Comp Metabolic Vwu300 NA 134 mEq/L 11/15/2014 Comp Metabolic Fcw925 K 4.5 mEq/L 11/15/2014 Comp Metabolic Cfo617 CL 101 mEq/L 11/15/2014 Comp Metabolic Ilv734 CO2 27.0 mEq/L 11/15/2014 Comp Metabolic Ekd751 AN ION GAP 11 11/15/2014 Comp Metabolic Idz121 GL UCOSE 293 mg/dL 11/15/2014 Comp Metabolic Ylt365 Cr eat 0.7 mg/dL 11/15/2014 Comp Metabolic Nak325 eG FR 87 ml/min/1.73m2 11/15 Comp Metabolic Cnn656 BUN 20 mg/dL 11/15/2014 Comp Metabolic Fox999 B/ C Ratio 29.4 Ratio 11/15/2014 Comp Metabolic Mxs316 CA LCIUM 9.0 mg/dL 11/15/2014 Comp Metabolic Crh688 AL K PHOS 67 U/L 11/15/2014 Comp Metabolic Owe245 T(SGOT) 17 U/L 11/15/2014 Comp Metabolic Yvc230 AL T(SGPT) 10 U/L 11/15/2014 Comp Metabolic Erv938 BI LI T 0.6 mg/dL 11/15/2014 Comp Metabolic Inr832 AL BUMIN 4.0 g/dL 11/15/2014 Comp Metabolic Kid106 TP RO 6.0 g/dL 11/15/2014 Comp Metabolic Ukv538 GL OB 2.0 g/dL 11/15/2014 Comp Metabolic Jvi812 A/ G Ratio 2.0 Ratio 11/15/2014 Comp Metabolic Vqb860 Os mo 282 mOsmo 11/15/2014 Review of Systems System Result Effective Dates Constitutional No recent illness 04/28/2018 Constitutional No [...] oriented to person, place and time 09/16/2017 Full Exam - General 1994 Psychiatric mood and affect Overall: normal mood and affect 09/16/2017 Full Exam - General 1994 Constitutional general [...] GLUC MONITOR CONT PH YS I&R CPT-4: 56790 09/16/2017 GLUCOSE MONITORING CONT CPT-4: 65387 07/16/2017 TRIAMCINOLONE ACET I [place] NOS CPT-4: J3301 06/14/2017 DRAIN/INJECT JOINT/B URSA CPT-4: 13116 03/26/2017 TRIAMCINOLONE ACET I [place] NOS CPT-4: J3301 03/26/2017 URINALYSIS NONAUTO W /O SCOPE CPT-4: 62967 01/16/2017 THER/PROPH/DIAG INJ SC/IM CPT-4: 62260 01/16/2017 ROCEPHIN, PER 250 MG CPT-4: J0696 01/16/2017 DESTRUCT PREMALG LESION CPT-4: 65791 10/16/2016 TRIAMCINOLONE ACET I [place] NOS CPT-4: J3301 09/27/2016 ROCEPHIN, PER 250 MG CPT-4: J0696 09/27/2016 PPPS, SUBSEQ VISIT CPT- 4: G0439 07/10/2016 THER/PROPH/DIAG INJ SC/IM CPT-4: 94155 07/09/2016 TRIAMCINOLONE ACET I [place] NOS CPT-4: J3301 07/09/2016 ROCEPHIN, PER 250 MG CPT-4: J0696 07/09/2016 ADMIN PNEUMOCOCCAL V ACCINE SNOMED CT: 39609544 CPT-4: G0009 02/15/2015 PNEUMOCOCCAL VACC 13 LIMA IM Formatting Model/CDA Sections, Assigned to SNOMED CT: 22386479 CPT-4: 97012Xrxtlkv 02/15/2015 ADMIN INFLUENZA VIRU S VAC CPT-4: G0008 12/10/2014 FLU VACC 4 LIMA 3 YRS PLUS IM Formatting Model/CDA Sections, Assigned to SNOMED CT: 43197345 CPT-4: 57548Vytezfi 12/10/2014 Vital Signs Date Vital 04/28/2018 Blood Pressure 1: 110/58 Code: 8480-6 BMI: 24.0 Code: 14429-1 Heart Rate 1: 56 bpm Height: 5'2" Respiratory Rate: 18 bpm SpO2: 98% Weight: 131 lbs 12/25/2017 Blood Pressure 1: 140/52 Code: 8480-6 BMI: 24.0 Code: 24715-0 Heart Rate 1: 64 bpm Height: 5'2" Respiratory Rate: 18 bpm SpO2: 96% Weight: 131 lbs 11/22/2017 Blood Pressure 1: 128/54 Code: 8480-6 BMI: 23.4 Code: 09456-8 Heart Rate 1: 62 bpm Height: 5'2" SpO2: 97% Weight: 128 lbs 10/07/2017 Blood Pressure 1: 148/68 Code: 8480-6 BMI: 23.2 Code: 88645-5 Heart Rate 1: 68 bpm Height: 5'2" SpO2: 98% Weight: 127 lbs 09/16/2017 Blood Pressure 1: 134/80 Code: 8480-6 BMI: 22.5 Code: 02527-3 Heart Rate 1: 86 bpm Height: 5'2" SpO2: 98% Weight: 123 lbs 09/09/2017 Blood Pressure 1: 150/66 Code: 8480-6 Blood Pressure 1: 138/72 Code: 8480-6 BMI: 22.9 Code: 25800-2 Heart Rate 1: 81 bpm Height: 5'2" SpO2: 98% Weight: 125 lbs 07/16/2017 Blood Pressure 1: 144/68 Code: 8480-6 BMI: 21.9 Code: 26664-4 Heart Rate 1: 73 bpm Height: 5'2" SpO2: 98% Weight: 120 lbs 06/14/2017 Blood Pressure 1: 132/64 Code: 8480-6 BMI: 22.3 Code: 86153-3 Heart Rate 1: 77 bpm Height: 5'2" SpO2: 98% Temperature: 37.0 (C ) / 98.6 (F) Weight: 122 lbs 06/10/2017 Blood Pressure 1: 134/64 Code: 8480-6 BMI: 22.5 Code: 93434-7 Heart Rate 1: 78 bpm Height: 5'2" SpO2: 95% Weight: 123 lbs 05/13/2017 Blood Pressure 1: 140/66 Code: 8480-6 BMI: 21.6 Code: 66672-8 Heart Rate 1: 80 bpm Height: 5'2" SpO2: 98% Weight: 118 lbs 03/26/2017 Blood Pressure 1: 150/78 Code: 8480-6 BMI: 23.2 Code: 55658-6 Heart Rate 1: 73 bpm Height: 5'2" SpO2: 99% Weight: 127 lbs 02/19/2017 Blood Pressure 1: 126/64 Code: 8480-6 BMI: 22.9 Code: 14310-1 Heart Rate 1: 74 bpm Height: 5'2" SpO2: 99% Weight: 125 lbs 01/16/2017 Blood Pressure 1: 136/68 Code: 8480-6 Heart Rate 1: 97 bpm Height: 5'2" Respiratory Rate: 16 bpm Temperature: 37.5 (C ) / 99.5 (F) Weight: 01/08/2017 Blood Pressure 1: 144/60 Code: 8480-6 BMI: 23.0 Code: 21567-8 Heart Rate 1: 71 bpm Height: 5'2" SpO2: 96% Weight: 126 lbs 11/21/2016 Blood Pressure 1: 150/62 Code: 8480-6 BMI: 23.2 Code: 95129-9 Heart Rate 1: 73 bpm Height: 5'2" SpO2: 94% Weight: 127 lbs 10/16/2016 Blood Pressure 1: 142/82 Code: 8480-6 BMI: 22.9 Code: 49872-6 Heart Rate 1: 80 bpm Height: 5'2" SpO2: 96% Weight: 125 lbs 10/08/2016 Blood Pressure 1: 150/72 Code: 8480-6 Heart Rate 1: 65 bpm Height: 5'2" SpO2: 98% 10/01/2016 Blood Pressure 1: 152/76 Code: 8480-6 Heart Rate 1: 69 bpm Height: 5'2" SpO2: 97% 09/27/2016 Blood Pressure 1: 122/64 Code: 8480-6 BMI: 23.3 Code: 93800-2 Heart Rate 1: 80 bpm Height: 5'2" SpO2: 98% Weight: 127 lbs 8 oz 07/19/2016 Blood Pressure 1: 118/68 Code: 8480-6 BMI: 23.0 Code: 05663-6 Heart Rate 1: 62 bpm Height: 5'2" SpO2: 97% Weight: 126 lbs 07/10/2016 Blood Pressure 1: 132/64 Code: 8480-6 BMI: 23.4 Code: 16627-7 Heart Rate 1: 82 bpm Height: 5'2" SpO2: 98% Waist Measure (cm): 76 cm Weight: 128 lbs 07/09/2016 Blood Pressure 1: 132/64 Code: 8480-6 BMI: 23.4 Code: 80175-6 Heart Rate 1: 82 bpm Height: 5'2" SpO2: 98% Temperature: 37.2 (C ) / 98.9 (F) Weight: 128 lbs 06/06/2016 Blood Pressure 1: 144/66 Code: 8480-6 BMI: 23.4 Code: 29703-0 Heart Rate 1: 77 bpm Height: 5'2" SpO2: 97% Weight: 128 lbs 04/03/2016 Blood Pressure 1: 164/70 Code: 8480-6 BMI: 24.5 Code: 15330-3 Heart Rate 1: 80 bpm Height: 5'2" SpO2: 98% Weight: 134 lbs 12/26/2015 Blood Pressure 1: 130/72 Code: 8480-6 BMI: 24.1 Code: 91823-6 Heart Rate 1: 63 bpm Height: 5'2" SpO2: 98% Weight: 132 lbs 09/19/2015 Blood Pressure 1: 140/68 Code: 8480-6 BMI: 24.2 Code: 32171-8 Heart Rate 1: 96 bpm Height: 5'2" SpO2: 98% Weight: 132 lbs 8 oz 07/19/2015 Blood Pressure 1: 128/64 Code: 8480-6 BMI: 24.2 Code: 17829-1 Heart Rate 1: 66 bpm Height: 5'2" SpO2: 98% Weight: 132 lbs 8 oz 03/22/2015 Blood Pressure 1: 128/60 Code: 8480-6 BMI: 24.0 Code: 57567-7 Heart Rate 1: 57 bpm Height: 5'2" SpO2: 98% Weight: 131 lbs 02/15/2015 Blood Pressure 1: 132/56 Code: 8480-6 BMI: 23.8 Code: 76726-4 Heart Rate 1: 70 bpm Height: 5'2" SpO2: 98% Weight: 130 lbs 11/15/2014 Blood Pressure 1: 120/78 Code: 8480-6 BMI: 24.1 Code: 26120-6 Heart Rate 1: 79 bpm Height: 5'2" SpO2: 98% Weight: 132 lbs 08/13/2014 Blood Pressure 1: 140/60 Code: 8480-6 BMI: 24.0 Code: 96574-5 Heart Rate 1: 74 bpm Height: 5'2" Weight: 131 lbs Functional Status No Functional Status data History of Present Illness Symptom Name Status Resu lt Effective Date Notes Quality stable 04/28/2018 None Length of Episodes [...] kevin extension 04/28/2018 None Exacerbating Factors f keivn flexion 04/28/2018 None Pertinent Findings carine n [...] production 09/27/2016 None cough Location in the roat 09/27/2016 None cough Quality constant 09/27/2016 [...] Encounters Encounter Performer Loca tion Codes Date ([id number]) 66405 EST. P ATIENT, LEVEL IV Diagnosis: Essential (primary) hypertension[ICD10: I10] Diagnosis: Type 2 diabetes mellitus with hyperglycemia[ICD10: E11.65] Diagnosis: Trigger finger, right middle finger[ICD10: M65.331] Dominique Recinos MD, C CPT-4: 08624 04/28/2018 ([id number]) 90041 EST. P ATIENT, LEVEL IV Diagnosis: Type 2 diabetes mellitus with hyperglycemia[ICD10: E11.65] Diagnosis: Essential (primary) hypertension[ICD10: I10] Diagnosis: Localized edema[ICD10: R60.0] Dominique Recinos MD, [facility] CPT-4: 43833 12/25/2017 ([id number]) 01244 EST. P ATIENT, LEVEL IV Diagnosis: Diverticulitis of large intestine without perforation or abscess without bleeding[ICD10: K57.32] Diagnosis: Nausea[ICD10: R11.0] Maile Recinos MD, [facility] CPT-4: 83711 11/22/2017 ([id number]) Miscellaneou s no charge Diagnosis: Laceration without foreign body of right forearm, subsequent encounter[ICD10: S51.811D] Dominique Recinos MD, [facility] CPT-4: 63286 10/16/2017 ([id number]) Miscellaneou s no charge Diagnosis: Laceration without foreign body of right forearm, subsequent encounter[ICD10: S51.811D] Dominique Recinos MD [facility] CPT-4: 75680 10/14/2017 ([id number]) Miscellaneou s no charge Diagnosis: Laceration without foreign body of right forearm, subsequent encounter[ICD10: S51.811D] Dominique Recinos MD, [facility] CPT-4: 37259 10/09/2017 ([id number]) 18028 EST. P ATIENT, LEVEL III Diagnosis: Type 2 diabetes mellitus with hyperglycemia[ICD10: E11.65] Dominique Recinos MD, [facility] CPT-4: 89523 10/07/2017 ([id number]) 07337 EST. P ATIENT, LEVEL III Diagnosis: Type 2 diabetes mellitus with hyperglycemia[ICD10: E11.65] Fatmata Recinos MD, [facility] CPT-4: 82485 09/16/2017 ([id number]) 10670 EST. P ATIENT, LEVEL III Diagnosis: Essential (primary) hypertension[ICD10: I10] Dominique Recinos MD, C CPT-4: 48199 09/09/2017 ([id number]) Miscellaneou s no charge Diagnosis: Type 1 diabetes mellitus without complications[ICD10: E10.9] Fatmata Recinos MD, [facility] CPT-4: 82191 07/22/2017 ([id number]) 70949 EST. P ATIENT, LEVEL IV Diagnosis: Type 1 diabetes mellitus without complications[ICD10: E10.9] Diagnosis: Mixed hyperlipidemia[ICD10: E78.2] Diagnosis: Essential (primary) hypertension[ICD10: I10] Dominique Recinos MD, [facility] CPT-4: 26316 07/16/2017 ([id number]) 81987 EST. P ATIENT, LEVEL III Diagnosis: Cough[ICD10: R05] Diagnosis: Acute recurrent maxillary sinusitis[ICD10: J01.01] Maile Recinos MD, [facility] CPT-4: 94951 06/14/2017 ([id number]) 34064 EST. P ATIENT, LEVEL IV Diagnosis: Type 1 diabetes mellitus without complications[ICD10: E10.9] Diagnosis: Essential (primary) hypertension[ICD10: I10] Dominique Recinos MD, [facility] CPT-4: 07624 06/10/2017 ([id number]) 55875 EST. P ATIENT, LEVEL IV Diagnosis: Essential (primary) hypertension[ICD10: I10] Diagnosis: Type 1 diabetes mellitus without complications[ICD10: E10.9] Dominique Recinos MD, [facility] CPT-4: 81501 05/13/2017 15761 EST. PATIENT, LEVEL III Diagnosis: Sciatica, right side[ICD10: M54.31] Diagnosis: Low back pain[ICD10: M54.5] Fatmata Recinos MD, [facility] CPT-4: 27951 03/26/2017 ([id number]) 18400 EST. P ATIENT, LEVEL III Diagnosis: Type 1 diabetes mellitus without complications[ICD10: E10.9] Diagnosis: Essential (primary) hypertension[ICD10: I10] Dominique Recinos MD, [facility] CPT-4: 34480 02/19/2017 ([id number]) 66027 EST. P ATIENT, LEVEL IV Diagnosis: Fever presenting with conditions classified elsewhere[ICD10: R50.81] Diagnosis: Weakness[ICD10: R53.1] Diagnosis: Frequency of micturition[ICD10: R35.0] Diagnosis: Type 1 diabetes mellitus without complications[ICD10: E10.9] Dominique Recinos MD, [facility] CPT-4: 41118 01/16/2017 ([id number]) 57224 EST. P ATIENT, LEVEL IV Diagnosis: Type 1 diabetes mellitus without complications[ICD10: E10.9] Diagnosis: Essential (primary) hypertension[ICD10: I10] Dominique Recinos MD, [facility] CPT-4: 89930 01/08/2017 ([id number]) 79887 EST. P ATIENT, LEVEL IV Diagnosis: Essential (primary) hypertension[ICD10: I10] Diagnosis: Type 1 diabetes mellitus without complications[ICD10: E10.9] Dominique Recinos MD, [facility] CPT-4: 04714 11/21/2016 ([id number]) 10260 EST. 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 P ATIENT, LEVEL III Diagnosis: Chronic obstructive pulmonary disease with (acute) exacerbation[ICD10: J44.1] Diagnosis: Cough[ICD10: R05] Maile Recinos MD, [facility] CPT-4: 40665 10/08/2016 ([id number]) Miscellaneou s no charge Diagnosis: Cough[ICD10: R05] Diagnosis: Chronic obstructive pulmonary disease with (acute) exacerbation[ICD10: J44.1] Maile Recinos MD, [facility] CPT-4: 29412 10/01/2016 ([id number]) 73652 EST. P ATIENT, LEVEL III Diagnosis: Cough[ICD10: R05] Diagnosis: Acute bronchitis, unspecified[ICD10: J20.9] Maile Recinos MD, [facility] CPT-4: 66706 09/27/2016 ([id number]) 12113 EST. P ATIENT, LEVEL III Diagnosis: Type 1 diabetes mellitus without complications[ICD10: E10.9] Dominique Recinos MD, [facility] CPT-4: 14638 07/19/2016 ([id number]) 46325 EST. P ATIENT, LEVEL IV Diagnosis: Essential (primary) hypertension[ICD10: I10] Diagnosis: Type 1 diabetes mellitus without complications[ICD10: E10.9] Diagnosis: Other allergic rhinitis[ICD10: J30.89] Diagnosis: Acute laryngopharyngitis[ICD10: J06.0] Dominique Recinos MD, [facility] CPT-4: 82355 07/09/2016 ([id number]) 75098 EST. P ATIENT, LEVEL IV Diagnosis: Essential (primary) hypertension[ICD10: I10] Diagnosis: Type 1 diabetes mellitus without complications[ICD10: E10.9] Diagnosis: Mixed hyperlipidemia[ICD10: E78.2] Dominique Recinos MD, [facility] CPT- 4: 54150 06/06/2016 46111 EST. PATIENT, LEVEL III Diagnosis: Other allergic rhinitis[ICD10: J30.89] Diagnosis: Acute laryngopharyngitis[ICD10: J06.0] Fatmata Recinos MD, [facility] CPT-4: 63352 04/03/2016 ([id number]) 45931 EST. P ATIENT, LEVEL IV Diagnosis: Type 1 diabetes mellitus without complications[ICD10: E10.9] Diagnosis: Essential (primary) hypertension[ICD10: I10] Diagnosis: Pain in right hand[ICD10: M79.641] Dominique Recinos MD, [facility] CPT- 4: 01857 12/26/2015 ([id number]) 11540 EST. P ATIENT, LEVEL IV Diagnosis: Type 1 diabetes mellitus without complications[ICD10: E10.9] Diagnosis: Essential (primary) hypertension[ICD10: I10] Dominique Recinos MD, [facility] CPT-4: 94093 09/19/2015 ([id number]) 05703 EST. P ATIENT, LEVEL IV Diagnosis: Essential (primary) hypertension[ICD10: I10] Diagnosis: Mixed hyperlipidemia[ICD10: E78.2] Diagnosis: Type 1 diabetes mellitus without complications[ICD10: E10.9] Dominique Recinos MD, [facility] CPT-4: 98331 07/19/2015 ([id number]) 94160 EST. P ATIENT, LEVEL IV Diagnosis: Other specified dorsopathies, lumbar region[ICD10: M53.86] Diagnosis: Urge incontinence[ICD10: N39.41] Diagnosis: Type 1 diabetes mellitus without complications[ICD10: E10.9] Dominique Recinos MD, [facility] CPT-4: 32733 03/22/2015 ([id number]) 03921 EST. P ATIENT, LEVEL IV Diagnosis: Essential (primary) hypertension[ICD10: I10] Diagnosis: Other specified dorsopathies, lumbar region[ICD10: M53.86] Diagnosis: Other chronic pain[ICD10: G89.29] Dominique Recinos MD, [facility] CPT-4: 21074 02/15/2015 ([id number]) 61968 EST. P ATIENT, LEVEL IV Diagnosis: ESSENTIAL HYPERTENSION[ICD9: 401.9] Diagnosis: DIABETES TYPE II[ICD9: 250.00] Diagnosis: FALL FROM LADDER[ICD9: E881.0] Diagnosis: Right hip pain[ICD9: 719.45] Diagnosis: Left hand pain[ICD9: 729.5] Diagnosis: Sacroiliac joint pain[ICD9: 724.6] Dominique Recinos MD, [facility] CPT- 4: 60144 11/15/2014 ([id number]) OFFICE VISI T, NEW - LEVEL 4 Diagnosis: DIABETES TYPE II[ICD9: 250.00] Diagnosis: ESSENTIAL HYPERTENSION[ICD9: 401.9] Diagnosis: HYPERLIPIDEMIA[ICD9: 272.4] [facility] CPT-4: 49933 08/13/2014 Plan of Care Planned Activity Notes [...] controlled. 04/28/2018 Appointment: Dominique Recinos WPtel: [phone] [facility] (15 min) Moderate 04/28/2018 Patient Education: Patient [...] while seated. 12/25/2017 Appointment: Dominique Recinos WPtel: [facility] (15 min) Moderate 12/25/2017 Patient Education: Patient Medication Summary Completed 12/25/2017 Patient Education: Diabetes Completed 12/25/2017 Appointment: Dominique Recinos WPtel: [facility] [place] (15 min) Moderate 12/09/2017 Visit Plan: Diverticulitis - rx for antibiotic sent to pt's pharmacy - pt advised to avoid seeds, nuts, popcorn, or any other food which has been proven to upset the pt's stomach. 11/22/2017 Appointment: Maile Randolph WPtel: [phone] [phone] [place] (15 min) Moderate 11/22/2017 Patient Education: [...] glucose. 10/07/2017 App[facility]ment: [phone] [place] (15 min) Moderate 10/07/2017 Patient [...] clinic. 09/16/2017 App[facility]ment[phone] [place] (15 min) Moderate 09/16/2017 Patient Education: [...] home. 09/09/2017 Appointment: [phone] [facility] [place] (15 min) Moderate 09/09/2017 Patient Education: Patient Medication Summary Completed 09/09/2017 Appointment: [facility]ile Randolph [phone] [phone] [place] (15 min) Moderate 09/06/2017 Appointment: [facility] [facility] [place] (15 min) Moderate 09/05/2017 Appointment: [facility]mata Spann [phone] [place] (15 min) Moderate 07/22/2017 Patient Education: [...] less controlled. ipro placed today - by VIDEO GAME DEVELOPER - pt to RTC on Saturday for [...] less controlled. ipro placed today - by VIDEO GAME DEVELOPER - pt to RTC on Saturday for [...] to medications. 07/16/2017 Appointment: Domin[facility]inos [facility]el[phone] [facility] (15 min) Moderate 07/16/2017 Patient Education: Patient Medication Summary Completed 07/16/2017 Visit Plan: Sinusitis - Pt has acut e infection - pain in face, maxillary region, Pt informed to use decongestant, RX given to patient, sinus rinses also recommended. Call if symptoms do not show improvement. 06/14/2017 Appointment: Maile Randolph [facility]el[phone] [phone] (30 min) Complex 06/14/2017 Patient Education: Patient [...] at home. 06/10/2017 Appointment: Domin[facility] Recinos [facility]el[phone] [facility] [place] (15 min) Moderate 06/10/2017 Patient Education: Patient Medication Summary Completed 06/10/2017 Appointment: Fatmata Spann [facility]Ptel: [phone] [facility] [place] (30 min) Complex 06/03/2017 Visit Plan: [...] less controlled. 05/13/2017 Appointment: Domin[facility]el[phone] [facility] [place] (15 min) Moderate 05/13/2017 Patient Education: Patient Medication Summary Completed 05/13/2017 Appointment: Domin[facility]inos [facility]Ptel[phone] [facility] [place] (30 min) Complex 05/03/2017 Appointment: Fatmata Spann [facility]el[phone] [facility] [place] (15 min) Moderate 04/12/2017 Appointment: [place] [phone] [facility] [place] (15 min) Moderate 04/11/2017 Appointment: JorjeDominique handley WPtel: [phone] [facility] [place] (15 min) Moderate 04/10/2017 Appointment: [place] W[place]el: [phone] [facility] [place] (15 min) Moderate 04/02/2017 Visit Plan: [...] injection. 03/26/2017 Appointment: Fatmata Spann [facility]Ptel: [phone] [facility] [place] (30 min) Complex 03/26/2017 Appointment: Dominique Recinos WPtel: [facility]5 [facility] [place] (15 min) Moderate 03/26/2017 Patient Education: [...] at home. 02/19/2017 Appointment: Dominique Recinos [facility]Ptel[facility] [phone] [facility] (15 min) Moderate 02/19/2017 Patient Education: Patient Medication Summary Completed 02/19/2017 Patient Education: Hypertension Completed 02/19/2017 Appointment: Dominique Recinos [facility]Ptel[facility] [phone] [facility] (15 min) Moderate 02/12/2017 Visit Plan: Diabetes [...] above 100F. 01/16/2017 Appointment: Dominique Recinos [facility]Ptel: [address] [facility] (15 min) Moderate 01/16/2017 Patient Education: Patient Medication Summary Completed 01/16/2017 Visit Plan: Diabetes Mellitus - con alice [...] home. 01/08/2017 Appointment: Dominique Recinos [facility]Ptel[phone] [facility] (15 min) Moderate 01/08/2017 Patient Education: Patient Medication Summary Completed 01/08/2017 Patient Education: Hypertension Completed 01/08/2017 Appointment: Dominique Recinos [facility]Ptel[facility] [phone] [facility] [place] (15 min) Moderate 12/31/2016 Appointment: Dominique Recinos [facility]Ptel[phone] [facility] (15 min) Moderate 12/18/2016 Visit Plan: [...] controlled. 11/21/2016 Appointment: Domin[facility]inos [facility]el[phone] [facility] [place] (15 min) Moderate 11/21/2016 Patient [...] potatoes, creamy coleslaw, etc. -- referral to intensive care medicine specialist. Hyperlipidemia - pt has been counseled [...] coleslaw, etc. 10/16/2016 Appointment: Dominique Recinos WPtel: [facility]7 [facility] (15 min) Moderate 10/16/2016 Patient Education: Patient Medication Summary Completed 10/16/2016 Patient Education: Hypertension Completed 10/16/2016 Patient Education: Patient Medication Summary Completed 10/09/2016 Care Plan: Free T4 Pending 10/09/2016 Visit Plan: COPD exacerbation-cough -symptoms resolved-call if symptoms return-monitor blood sugars closely for the next few days and discussed diet. 10/08/2016 Appointment: Maile Randolph WPtel: [facility] (15 min) Moderate 10/08/2016 Patient Education: Patient Medication Summary Completed 10/08/2016 Visit Plan: COPD EXACERBATION - WELT SOLE LAYER D is a chronic problem for this [...] acute changes. 10/01/2016 Appointment: Maile Randolph WPtel: [facility] [place] [address] (30 min) Complex 10/01/2016 Patient Education: Patient Medication Summary Completed 10/01/2016 Visit Plan: Bronchitis - acute case of bronchitis identified. Pt has been given antibiotics, breathing treatments as appropriate, and pt has been instructed to call if symptoms are not improved, or if symptoms acutely worsen. 09/27/2016 Appointment: Maile Randolph WPtel: [facility]4 [phone] (30 min) Complex 09/27/2016 Patient Education: Patient [...] starting to become less controlled. 07/19/2016 Appointment: JorjeDominique WPtel: [phone] [facility] (15 min) Moderate 07/19/2016 Patient [...] care surrogate. 07/10/2016 Appointment: Fatmata Spann WPtel: [phone] [facility] [facility] - Annual Wellness Visit 07/10/2016 Patient [...] not improving 07/09/2016 Appointment: Dominique Recinos WPtel: [facility]5 [facility] (15 min) Moderate 07/09/2016 Patient Education: Patient Medication Summary Completed 07/09/2016 Patient Education: Hypertension Completed 07/09/2016 Appointment: Dominique Recinos WPtel: [address] [place], [place] [address] (15 min) Moderate 06/26/2016 Visit Plan: Hypertension [...] me dications. 06/06/2016 Appointment: Dominique Recinos WPtel: [facility] (15 min) Moderate 06/06/2016 Patient Education: Patient Medication Summary Completed 06/06/2016 Appointment: Dominique Recinos WPtel: [address] [place], [place] [phone] (15 min) Moderate 04/30/2016 Visit Plan: URI [...] spray. 04/03/2016 Appointment: Fatmata Spann [facility]Ptel: [phone] (30 min) Complex 04/03/2016 Patient Education: Patient [...] Completed 12/26/2015 Appointment: Dominique Recinos [facility]Ptel: [phone] [facility] (15 min) Moderate 12/19/2015 Visit Plan: [...] home. 09/19/2015 Appointment: Dominique Recinos WPtel: [phone] [facility] (15 min) Moderate 09/19/2015 Patient Education: Patient [...] dications. 07/19/2015 Appointment: Dominique Recinos WPtel: [phone] [facility] (15 min) Moderate 07/19/2015 Patient Education: Patient [...] q10. Back pain - referral to [facility] physical therapy for further eval and treat. 03/22/2015 Appointment: Dominique Recinos WPtel: [facility] (15 min) Moderate 03/22/2015 Patient Education: Patient Medication Summary Completed 03/22/2015 Care Plan: Referral Order SNOMED-CT : [id number] Ordered 03/22/2015 Visit Plan: Hypertension - well [...] Completed 12/10/2014 Visit Plan: Diabetes Mellitus - roxie jenkins [...] me dications. 08/13/2014 Appointment: Dominique Recinos WPtel: [address] [place] [address] [place] (S) New Patient 08/13/2014 Patient Education: [...] potatoes, creamy coleslaw, etc. -- referral to intensive care medicine specialist. Hyperlipidemia - pt has been counseled [...] show improvement. two old goats - from [employer] farm and home . Hypertension - well [...] less controlled. ipro placed today - by VIDEO GAME DEVELOPER - pt to RTC on Saturday for [...] less controlled. ipro placed today - by VIDEO GAME DEVELOPER - pt to RTC on Saturday for [...] co-enzyme q10. Back pain - referral to [facility] physical therapy for further eval and treat.
--- OUTSIDE RECORDS SUMMARY | 2019-06-14 16:59 | XMS REPORT | CCD ---
Author Author Nathalia Recinos Organization [facility] Address [address] [place] [address] Phone Care Team Providers Care Dietary Assistant Name Role Phone PP Unavailable CCM Unavailable Summary Purpose Interface Exchange Insurance Providers Payer name Policy type / Coverage type Covered green party ID Effective Begin Date Effective End Date WPS Medicare Part B Medicare Part B [id number] Unknown [facility] ica Part B [id number] Un known Family history Mother Diagnosis Age At Onset No Family Disease Entered N/A Father Diagnosis Age At Onset Heart Attack Unknown Diabetes Unknown Social History Social History Element Codes Description Effective Dates Number of children Unknown 2 Sons, 5 grandchildren, 11 great grandchildren 01/08/2017 Marital status Unknown W crystal [place] in 201606/06/[address]: 912991690 Never smoker 08/13/[address]: 865076271 Never drinks alcohol 08/13/2014 Allergies, Adverse Reactions, [...] Fill Instructions Benicar 40 mg tablet RxNorm: 879571 Tablet(s) TAKE ONE TABLET BY MOUTH DAILY 08/06/2018 07/31/2019 Ac tive FreeStyle Lite Strips RxNorm: USE STRIP TO TEST SEVEN TIMES A DAY 07/10/2018 08/11/2018 Ac tive Zocor 20 mg tablet RxNorm: 729887 1 Tablet(s) PO daily 06/10/2018 06/04/2019 Active Benicar 40 mg tablet RxNorm: 470856 Tablet(s) TAKE ONE TABLET BY MOUTH DAILY 06/06/2018 06/25/2018 In active metoprolol tartrate 50 mg tablet RxNorm: 573982 TAKE ONE TABLET BY MO UTH TWICE A DAY 05/19/2018 05/13/2019 Ac tive hydrochlorothiazide 12.5 mg capsule RxNorm: 390107 TAKE ONE CAPSULE BY M OUTH DAILY 05/19/2018 05/13/2019 Ac tive Atacand 32 mg tablet RxNorm: 433815 1 Tablet(s) PO daily 05/12/2018 05/11/2018 Inactive This is to replace benicar At[place]and 32 mg tablet RxNorm: 463406 1 Tablet(s) PO daily 05/12/2018 06/05/2018 Inactive This is to replace benicar Benicar 40 mg tablet RxNorm: 267689 TAKE ONE TABLET BY MOUTH DAILY 05/07/2018 05/06/2018 In active Benicar 40 mg tablet RxNorm: 761351 Tablet(s) TAKE ONE TABLET BY MOUTH DAILY 05/07/2018 05/11/2018 In active Zoloft 50 mg tablet RxNorm: 557285 TAKE ONE TABLET BY MOUTH DAILY 04/28/2018 04/22/2019 Ac tive gabapentin 100 mg ca psule RxNorm: 984222 TAKE ONE CAPSULE BY M OUTH THREE TIMES A DAY 04/09/2018 07/16/2018 Inactive Novolog U-100 Insuli n aspart 100 unit/mL subcutaneous solution RxNorm: 723215 SSI 5 units over 150 and for every additional 50 add 2 units Unit(s) SQ TID adjust as needed for glucose control 12/25/2017 07/22/2018 Inactive Cipro 500 mg tablet RxNorm: 825079 1 Tablet(s) PO BID 11/22/2017 12/01/2017 Inactive clotrimazole 1 % top ical cream RxNorm: 253956 1 Application TOP BID 11/22/2017 12/05/2017 Inactive Flagyl 500 mg tablet RxNorm: 387183 1 Tablet(s) PO TID 11/22/2017 12/01/2017 Inactive Lantus U-100 Insulin 100 unit/mL subcutaneous solution RxNorm: 600429 17 Unit(s) SQ QAM 11/11/2017 07/08/2018 Inactive Novolog U-100 Insuli n aspart 100 unit/mL subcutaneous solution RxNorm: 618450 SSI 5 units over 150 and for every additional 50 add 2 units Unit(s) SQ TID adjust as needed for glucose control 11/11/2017 12/24/2017 Inactive gabapentin 100 mg ca psule RxNorm: 409813 TAKE ONE CAPSULE BY M OUTH THREE TIMES A DAY 11/05/2017 02/11/2018 Inactive Kenalog 40 mg/mL fanny pension for injection RxNorm: 7953917 1 Milliliter(s) Inj 06/14/2017 06/14/2017 In active Flonase Allergy Reli ef 50 mcg/actuation nasal spray,suspension RxNorm: 4934556 2 [place] NASAL daily 06/14/2017 06/20/2017 Inactive doxycycline hyclate 100 mg tablet RxNorm: 043083 1 Tablet(s) PO BID 06/14/2017 06/20/2017 Inactive Lantus U-100 Insulin 100 unit/mL subcutaneous solution RxNorm: 096705 17 Unit(s) SQ QAM 06/10/2017 07/09/2017 Inactive gabapentin 100 mg ca psule RxNorm: 876327 TAKE ONE CAPSULE BY M OUTH THREE TIMES A DAY 05/23/2017 08/29/2017 Inactive Lantus U-100 Insulin 100 unit/mL subcutaneous solution RxNorm: 034954 15 Unit(s) SQ QAM 05/14/2017 06/09/2017 Inactive Novolog U-100 Insuli n aspart 100 unit/mL subcutaneous solution RxNorm: 638467 SSI 5 units over 150 and for every additional 50 add 2 units Unit(s) SQ TID adjust as needed for glucose control 04/24/2017 11/10/2017 Inactive Zocor 20 mg tablet RxNorm: 287548 1 Tablet(s) PO daily 04/05/2017 03/30/2018 Inactive Kenalog 40 mg/mL fanny pension for injection RxNorm: 0571359 1 Milliliter(s) Inj 03/26/2017 03/26/2017 In active Novolog 100 unit/mL subcutaneous solution RxNorm: 661497 SSI 5 units over 150 and for every additional 50 add 2 units Unit(s) SQ TID adjust as needed for glucose control 02/19/2017 04/23/2017 Inactive Lantus 100 unit/mL s ubcutaneous solution RxNorm: 306074 10 Unit(s) SQ QAM 02/19/2017 05/13/2017 In active ceftriaxone 500 mg s olution for injection RxNorm: 6704274 Inj 01/16/2017 01/16/2017 Inactive Lantus 100 unit/mL s ubcutaneous solution RxNorm: 426952 7 Unit(s) SQ QAM 01/16/2017 02/18/2017 In active Lantus 100 unit/mL s ubcutaneous solution RxNorm: 179748 10 Unit(s) SQ daily 01/08/2017 05/12/2017 In active gabapentin 100 mg ca psule RxNorm: 853513 TAKE ONE CAPSULE BY M OUTH THREE TIMES A DAY 11/30/2016 02/03/2017 Inactive Zoloft 50 mg tablet RxNorm: 458326 TAKE ONE TABLET BY MOUTH DAILY 10/30/2016 04/27/2017 In active Zocor 20 mg tablet RxNorm: 790518 1 Tablet(s) PO daily 10/16/2016 04/04/2017 Inactive stop the 40mg dose of zocor, start on 20 mg Lantus 100 unit/mL s ubcutaneous solution RxNorm: 744302 15 Unit(s) SQ daily 10/16/2016 01/07/2017 In active Novolog 100 unit/mL subcutaneous solution RxNorm: 008080 SSI 5 units over 150 and for every additional 50 add 2 units Unit(s) SQ TID adjust as needed for glucose control 10/16/2016 02/18/2017 Inactive prednisone 20 mg tablet RxNorm: 953992 1 Tablet(s) PO BID 10/01/2016 10/05/2016 Inactive Kenalog 40 mg/mL fanny pension for injection RxNorm: 1906494 1 Milliliter(s) Inj 09/27/2016 09/27/2016 In active Zithromax Z-Kishor 250 mg tablet RxNorm: 783668 1 Tablet(s) PO UD 09/27/2016 10/01/2016 Inactive ceftriaxone 500 mg s olution for injection RxNorm: 6805846 1 Milliliter(s) Inj 09/27/2016 09/27/2016 In active Augmentin 500 mg-125 mg tablet RxNorm: 628042 1 Tablet(s) PO BID 09/22/2016 09/26/2016 Inactive Tessalon Perles 100 mg capsule RxNorm: 716848 1 Capsule(s) PO Q8 AL N as needed 09/22/2016 04/27/2018 In active metoprolol tartrate 50 mg tablet RxNorm: 877086 TAKE ONE TABLET BY MO UT TWICE A DAY 08/02/2016 07/27/2017 Inactive Novolog 100 unit/mL subcutaneous solution RxNorm: 917108 10 Unit(s) SQ TID adj ust as needed for glucose control 07/19/2016 10/15/2016 Inactive Humalog 100 unit/mL subcutaneous solution RxNorm: 380678 INJECT 10 UNITS UNDER THE SKIN BEFORE EACH MEAL 07/16/2016 07/16/2016 Inactive Kenalog 40 mg/mL fanny pension for injection RxNorm: 6136577 1 Milliliter(s) Inj 07/09/2016 07/09/2016 In active ceftriaxone 500 mg s olution for injection RxNorm: 9730312 Inj 07/09/2016 07/09/2016 Inactive Lantus 100 unit/mL s ubcutaneous solution RxNorm: 434071 Unit(s) INJECT 13 UNI TS UNDER THE SKIN IN THE MORNING 06/06/2016 10/15/2016 Inactive Zoloft 50 mg tablet RxNorm: 256178 TAKE ONE TABLET BY MOUTH DAILY 04/27/2016 07/25/2016 In active Lantus 100 unit/mL s ubcutaneous solution RxNorm: 608052 INJECT 20 UNITS UNDER THE SKIN AT BEDTIME 04/27/2016 06/05/2016 Inactive amoxicillin 500 mg c apsule RxNorm: 465751 1 Capsule(s) PO TID 04/03/2016 04/12/2016 Inactive Zyrtec 10 mg tablet RxNorm: 3386042 1 Tablet(s) PO daily 04/03/2016 05/02/2016 Inactive hydrochlorothiazide 12.5 mg capsule RxNorm: 703991 TAKE ONE CAPSULE BY M OUTH DAILY 03/12/2016 12/06/2016 In active Benicar 40 mg tablet RxNorm: 557995 1 Tablet(s) PO daily 02/28/2016 04/27/2016 Inactive Benicar 40 mg tablet RxNorm: 464195 1 Tablet(s) PO daily 02/20/2016 02/27/2016 Inactive gabapentin 100 mg ca psule RxNorm: 813140 TAKE ONE CAPSULE BY M OUT THREE TIMES A DAY 01/09/2016 04/16/2016 Inactive metoprolol tartrate 50 mg tablet RxNorm: 383942 TAKE ONE TABLET BY [facility] TWICE A DAY 01/09/2016 04/07/2016 Inactive Humalog 100 unit/mL subcutaneous solution RxNorm: 472433 5-10 Unit(s) SQ AC 07/19/2015 07/18/2016 In active Lantus 100 unit/mL s ubcutaneous solution RxNorm: 421039 13 Unit(s) SQ QAM 07/19/2015 01/15/2017 In active Lantus 100 unit/mL s ubcutaneous solution RxNorm: 591379 20 Unit(s) SQ QHS 07/14/2015 07/18/2015 In active Zoloft 50 mg tablet RxNorm: 165463 1 Tablet(s) PO daily 05/19/2015 09/15/2015 Inactive Humalog 100 unit/mL subcutaneous solution RxNorm: 837493 10 Unit(s) SQ AC 05/11/2015 07/18/2015 In active metoprolol tartrate 50 mg tablet RxNorm: 827105 1 Tablet(s) PO BID 04/28/2015 08/25/2015 Inactive Lantus 100 unit/mL s ubcutaneous solution RxNorm: 687615 20 Unit(s) SQ QHS 04/28/2015 07/13/2015 In active Vesicare 10 mg tablet RxNorm: 586002 1 Tablet(s) PO QPM 03/22/2015 09/18/2015 Inactive hydrochlorothiazide 12.5 mg capsule RxNorm: 007935 1 Tablet(s) PO daily 01/04/2015 12/29/2015 In active gabapentin 100 mg ca psule RxNorm: 127085 1 Capsule(s) PO TID 11/29/2014 03/28/2015 Inactive [...] Date Active aspirin 81 mg tablet RxNorm: 220821 1 Tablet(s) PO daily No Start Date Active doxazosin 2 mg tablet RxNorm: 156012 1 Tablet(s) PO QHS No Start Date Active Fish Oil oral RxNorm: 6330652 oral No Start Date Active multivitamin capsule RxNorm: 1 Capsule(s) PO daily No Start Date Active Humalog 100 unit/mL subcutaneous solution RxNorm: 828482 Unit(s) SQ No Start Date 05/10/2015 Inactive Zoloft 50 mg tablet RxNorm: 320395 1 Tablet(s) PO daily No Start Date 05/18/2015 Inactive gabapentin 100 mg ca psule RxNorm: 108109 1 Capsule(s) PO daily No Start Date 11/28/2014 Inactive metoprolol tartrate 50 mg tablet RxNorm: 715806 1 Tablet(s) PO TID No Start Date 04/27/2015 Inactive Benicar 40 mg tablet RxNorm: 209084 1 Tablet(s) PO daily No Start Date 02/19/2016 Inactive hydrochlorothiazide 25 mg tablet RxNorm: 049454 1 Tablet(s) PO daily No Start Date 01/03/2015 Inactive Lantus 100 unit/mL s ubcutaneous solution RxNorm: 401288 13 Unit(s) SQ No Start Date 04/27/2015 Inactive Zocor 40 mg tablet RxNorm: 479510 1 Tablet(s) PO daily No Start Date 10/15/2016 Inactive Medication Administered Medication Codes Instruc tions Start Date Status Kenalog 40 mg/mL suspension for injection RxNorm: 5466824 1Milliliter 06/14/2017 N o longer Active Kenalog 40 mg/mL suspension for injection RxNorm: 2728607 1Milliliter 03/26/2017 N o longer Active ceftriaxone 500 mg solution for injection RxNorm: 6864333 01/16/2017 No longer A ctive Kenalog 40 mg/mL suspension for injection RxNorm: 7778130 1Milliliter 09/27/2016 N o longer Active ceftriaxone 500 mg solution for injection RxNorm: 6659885 1Milliliter 09/27/2016 N o longer Active Kenalog 40 mg/mL suspension for injection RxNorm: 1876095 1Milliliter 07/09/2016 N o longer Active ceftriaxone 500 mg solution for injection RxNorm: 5352596 07/09/2016 No longer A ctive Immunizations Vaccine [...] Observation Code Item Item Code Result Date Comp Metabolic Uqc999 NA 137 mEq/L 04/28/2018 Comp Metabolic Shz159 K 4.1 mEq/L 04/28/2018 Comp Metabolic Fok199 CL 101 mEq/L 04/28/2018 Comp Metabolic Sjk159 CO2 28.0 mEq/L 04/28/2018 Comp Metabolic Vkj076 AN ION GAP 12 04/28/2018 Comp Metabolic Ojs582 GL UCOSE 195 mg/dL 04/28/2018 Comp Metabolic Bvo500 Cr eat 0.7 mg/dL 04/28/2018 Comp Metabolic Tzb515 eG FR 81 ml/min/1.73m2 04/28 Comp Metabolic Tiu263 BUN 24 mg/dL 04/28/2018 Comp Metabolic Bmu338 B/ C Ratio 33.3 Ratio 04/28/2018 Comp Metabolic Qbt711 CA LCIUM 9.4 mg/dL 04/28/2018 Comp Metabolic Ppq290 AL K PHOS 72 U/L 04/28/2018 Comp Metabolic Dhk165 T(SGOT) 15 U/L 04/28/2018 Comp Metabolic Ppk572 AL T(SGPT) 11 U/L 04/28/2018 Comp Metabolic Lrw663 BI LI T 0.6 mg/dL 04/28/2018 Comp Metabolic Xhf521 AL BUMIN 4.0 g/dL 04/28/2018 Comp Metabolic Dhw058 TP RO 6.1 g/dL 04/28/2018 Comp Metabolic Qqu693 GL OB 2.1 g/dL 04/28/2018 Comp Metabolic Nao939 A/ G Ratio 2.0 Ratio 04/28/2018 Comp Metabolic Xdo448 Os mo 283 mOsmo 04/28/2018 %Hba1C Tbb535 % HbA1c 15637-2 7.5 % 04/28/2018 %Hba1C Gcp541 Gluc Ave 169 mg/dL 04/28/2018 %Hba1C Yop508 % HbA1c 30184-3 7.1 % 12/25/2017 %Hba1C Eym446 Gluc Ave 157 mg/dL 12/25/2017 Comp Metabolic Ywt816 NA 139 mEq/L 12/25/2017 Comp Metabolic Rhy585 K 4.1 mEq/L 12/25/2017 Comp Metabolic Umd731 CL 104 mEq/L 12/25/2017 Comp Metabolic Jxm119 CO2 28.0 mEq/L 12/25/2017 Comp Metabolic Ztw149 AN ION GAP 11 12/25/2017 Comp Metabolic Ibf808 GL UCOSE 129 mg/dL 12/25/2017 Comp Metabolic Vyc211 Cr eat 0.7 mg/dL 12/25/2017 Comp Metabolic Mjj315 eG FR 83 ml/min/1.73m2 12/25 Comp Metabolic Gxn468 BUN 22 mg/dL 12/25/2017 Comp Metabolic Uaa856 B/ C Ratio 31.0 Ratio 12/25/2017 Comp Metabolic Mxs285 CA LCIUM 9.4 mg/dL 12/25/2017 Comp Metabolic Xjw364 AL K PHOS 70 U/L 12/25/2017 Comp Metabolic Hix764 T(SGOT) 16 U/L 12/25/2017 Comp Metabolic Sgh360 AL T(SGPT) 12 U/L 12/25/2017 Comp Metabolic Pgw375 BI LI T 0.5 mg/dL 12/25/2017 Comp Metabolic Vsk964 AL BUMIN 4.2 g/dL 12/25/2017 Comp Metabolic Tsd148 TP RO 6.1 g/dL 12/25/2017 Comp Metabolic Cpm723 GL OB 1.9 g/dL 12/25/2017 Comp Metabolic Qls480 A/ G Ratio 2.1 Ratio 12/25/2017 Comp Metabolic Pol271 Os mo 283 mOsmo 12/25/2017 %Hba1C Gao932 % HbA1c 47747-7 8.0 % 05/13/2017 %Hba1C Gik854 Gluc Ave 183 mg/dL 05/13/2017 Comp Metabolic Bsr488 NA 135 mEq/L 05/13/2017 Comp Metabolic Gdp921 K 3.8 mEq/L 05/13/2017 Comp Metabolic Wuc982 CL 99 mEq/L 05/13/2017 Comp Metabolic Hzn140 CO2 29.0 mEq/L 05/13/2017 Comp Metabolic Pff690 AN ION GAP 11 05/13/2017 Comp Metabolic Yov983 GL UCOSE 155 mg/dL 05/13/2017 Comp Metabolic Vjs237 Cr eat 0.7 mg/dL 05/13/2017 Comp Metabolic Tle808 eG FR 90 ml/min/1.73m2 05/13 Comp Metabolic Bqy108 BUN 18 mg/dL 05/13/2017 Comp Metabolic Czl528 B/ C Ratio 27.3 Ratio 05/13/2017 Comp Metabolic Gjr364 CA LCIUM 8.9 mg/dL 05/13/2017 Comp Metabolic Xhv712 AL K PHOS 90 U/L 05/13/2017 Comp Metabolic Kop048 T(SGOT) 18 U/L 05/13/2017 Comp Metabolic Mjo309 AL T(SGPT) 15 U/L 05/13/2017 Comp Metabolic Xlx884 BI LI T 0.5 mg/dL 05/13/2017 Comp Metabolic Ydp054 AL BUMIN 4.0 g/dL 05/13/2017 Comp Metabolic Ive852 TP RO 5.9 g/dL 05/13/2017 Comp Metabolic Bwb256 GL OB 1.9 g/dL 05/13/2017 Comp Metabolic Fjw672 A/ G Ratio 2.1 Ratio 05/13/2017 Comp Metabolic Txv395 Os mo 275 mOsmo 05/13/2017 Urine Culture Ucult Prel iminary NO Growth Day 1 01/18 Urine Culture Ucult Comp lete NO Growth Day 2 01/18 Free T4 Ahw554 FREE T4 1.13 ng/dL 10/09/2016 Tsh Ord6 [...] 31.5 pg 10/08/2016 Cbc With Differential Ord2 [place]% 4.0 % 10/08/2016 Cbc With Differential Ord2 [...] 0.96 K/ul 10/08/2016 Cbc With Differential Ord2 [place] ABS# 0.4 K/ul 10/08/2016 Cbc With Differential Ord2 Eos ABS# 0.0 K/ul 10/08/2016 Cbc With Differential Ord2 Baso ABS# 0.0 K/ul 10/08/2016 Comp Metabolic Dhf509 NA 135 mEq/L 10/08/2016 Comp Metabolic Wch126 K 4.3 mEq/L 10/08/2016 Comp Metabolic Jzn543 CL 98 mEq/L 10/08/2016 Comp Metabolic Ter786 CO2 22.0 mEq/L 10/08/2016 Comp Metabolic Dcz742 AN ION GAP 19 10/08/2016 Comp Metabolic Iiw797 GL UCOSE 400 mg/dL 10/08/2016 Comp Metabolic Fws902 Cr eat 0.7 mg/dL 10/08/2016 Comp Metabolic Jyo671 eG FR 79 ml/min/1.73m2 10/08 Comp Metabolic Oiu782 BUN 27 mg/dL 10/08/2016 Comp Metabolic Vbj647 B/ C Ratio 36.5 Ratio 10/08/2016 Comp Metabolic Lob250 CA LCIUM 9.1 mg/dL 10/08/2016 Comp Metabolic Ulk833 AL K PHOS 65 U/L 10/08/2016 Comp Metabolic Vyb409 T(SGOT) 28 U/L 10/08/2016 Comp Metabolic Qmr712 AL T(SGPT) 24 U/L 10/08/2016 Comp Metabolic Lic927 BI LI T 0.7 mg/dL 10/08/2016 Comp Metabolic Cvp043 AL BUMIN 3.8 g/dL 10/08/2016 Comp Metabolic Hrg046 TP RO 6.0 g/dL 10/08/2016 Comp Metabolic Lhe798 GL OB 2.2 g/dL 10/08/2016 Comp Metabolic Foj864 A/ G Ratio 1.7 Ratio 10/08/2016 Comp Metabolic Gdr143 Os mo 292 mOsmo 10/08/2016 %Hba1C Sdo918 % HbA1c 10438-8 7.0 % 10/08/2016 %Hba1C Vbv875 Gluc Ave 154 mg/dL 10/08/2016 Microalbumin Hqe247 Micr oAlb <0.7 mg/dL 10/08/2016 Lipid Ord30 [...] OK? TNP:Duplicate Order 04/03/2016 C A/B FLU 1500336 Influe nza A Scr Negative 04/03/2016 C A/B FLU 7329947 Influe nza B Scr Negative 04/03/2016 Comp Metabolic Sva942 NA 138 mEq/L 09/15/2015 Comp Metabolic Rqt721 K 4.4 mEq/L 09/15/2015 Comp Metabolic Bvv537 CL 103 mEq/L 09/15/2015 Comp Metabolic Xan168 CO2 29.0 mEq/L 09/15/2015 Comp Metabolic Lwb028 AN ION GAP 10 09/15/2015 Comp Metabolic Upe868 GL UCOSE 156 mg/dL 09/15/2015 Comp Metabolic Hjb565 Cr eat 0.7 mg/dL 09/15/2015 Comp Metabolic Nht546 eG FR 79 ml/min/1.73m2 09/14 Comp Metabolic Nku057 BUN 23 mg/dL 09/15/2015 Comp Metabolic Ent226 B/ C Ratio 31.1 Ratio 09/15/2015 Comp Metabolic Vkg794 CA LCIUM 9.1 mg/dL 09/15/2015 Comp Metabolic Jwx551 AL K PHOS 58 U/L 09/15/2015 Comp Metabolic Qqn865 T(SGOT) 19 U/L 09/15/2015 Comp Metabolic Cyd838 AL T(SGPT) 11 U/L 09/15/2015 Comp Metabolic Myd356 BI LI T 0.6 mg/dL 09/15/2015 Comp Metabolic Jpr136 AL BUMIN 3.9 g/dL 09/15/2015 Comp Metabolic Uet247 TP RO 5.8 g/dL 09/15/2015 Comp Metabolic Bzx500 GL OB 1.9 g/dL 09/15/2015 Comp Metabolic Tnk160 A/ G Ratio 2.1 Ratio 09/15/2015 Comp Metabolic Rdx172 Os mo 283 mOsmo 09/15/2015 Cbc With [...] 30.5 pg 09/15/2015 Cbc With Differential Ord2 [place]% 10.2 % 09/15/2015 Cbc With Differential Ord2 [...] 0.86 K/ul 09/15/2015 Cbc With Differential Ord2 [place] ABS# 0.5 K/ul 09/15/2015 Cbc With Differential Ord2 Eos ABS# 0.1 K/ul 09/15/2015 Cbc With Differential Ord2 Baso ABS# 0.0 K/ul 09/15/2015 Tsh Ord6 hTSH II 0.76 uIU/mL 09/15/2015 Lipid Ord30 CHOL 139 mg/dL 09/15/2015 Lipid Ord30 HDL 57.0 mg/dl 09/15/2015 Lipid Ord30 TRIG 76 mg/dL 09/15/2015 Lipid Ord30 LDL 67 mg/dL 09/15/2015 Lipid Ord30 C/HDL 2.4 Ratio 09/15/2015 %Hba1C Ypi320 % HbA1c 32833-5 6.6 % 09/15/2015 %Hba1C Nqh238 Gluc Ave 143 mg/dL 09/15/2015 Tsh Ord6 hTSH II 0.68 uIU/mL 06/02/2015 %Hba1C Bwf498 % HbA1c 58941-3 6.5 % 06/02/2015 %Hba1C Vpt931 Gluc Ave 140 mg/dL 06/02/2015 Comp Metabolic Xtl553 NA 139 mEq/L 06/02/2015 Comp Metabolic Vhz191 K 4.5 mEq/L 06/02/2015 Comp Metabolic Vqh907 CL 104 mEq/L 06/02/2015 Comp Metabolic Lnh674 CO2 25.0 mEq/L 06/02/2015 Comp Metabolic Nky669 AN ION GAP 15 06/02/2015 Comp Metabolic Zff668 GL UCOSE 123 mg/dL 06/02/2015 Comp Metabolic Mth250 Cr eat 0.7 mg/dL 06/02/2015 Comp Metabolic Rpy922 eG FR 92 ml/min/1.73m2 06/01 Comp Metabolic Vfm828 BUN 21 mg/dL 06/02/2015 Comp Metabolic Onv318 B/ C Ratio 32.3 Ratio 06/02/2015 Comp Metabolic Rme905 CA LCIUM 9.5 mg/dL 06/02/2015 Comp Metabolic Qgp872 AL K PHOS 66 U/L 06/02/2015 Comp Metabolic Mwy732 T(SGOT) 19 U/L 06/02/2015 Comp Metabolic Lgf485 AL T(SGPT) 13 U/L 06/02/2015 Comp Metabolic Xuf028 BI LI T 0.5 mg/dL 06/02/2015 Comp Metabolic Mbg208 AL BUMIN 4.0 g/dL 06/02/2015 Comp Metabolic Pmy521 TP RO 6.3 g/dL 06/02/2015 Comp Metabolic Yfd686 GL OB 2.3 g/dL 06/02/2015 Comp Metabolic Orn863 A/ G Ratio 1.7 Ratio 06/02/2015 Comp Metabolic Ysj259 Os mo 282 mOsmo 06/02/2015 %Hba1C Lwy797 % HbA1c 01928-1 6.7 % 02/17/2015 %Hba1C Saa035 Gluc Ave 146 mg/dL 02/17/2015 Comp Metabolic Bys758 NA 133 mEq/L 02/17/2015 Comp Metabolic Fco207 K 4.3 mEq/L 02/17/2015 Comp Metabolic Hsi189 CL 99 mEq/L 02/17/2015 Comp Metabolic Sts832 CO2 27.0 mEq/L 02/17/2015 Comp Metabolic Xxi718 AN ION GAP 11 02/17/2015 Comp Metabolic Zgd403 GL UCOSE 239 mg/dL 02/17/2015 Comp Metabolic Piu940 Cr eat 0.7 mg/dL 02/17/2015 Comp Metabolic Nrn070 eG FR 79 ml/min/1.73m2 02/17 Comp Metabolic Fzq663 BUN 24 mg/dL 02/17/2015 Comp Metabolic Thh171 B/ C Ratio 32.4 Ratio 02/17/2015 Comp Metabolic Mux747 CA LCIUM 9.1 mg/dL 02/17/2015 Comp Metabolic Rzv035 AL K PHOS 75 U/L 02/17/2015 Comp Metabolic Aqw936 T(SGOT) 18 U/L 02/17/2015 Comp Metabolic Xdl366 AL T(SGPT) 11 U/L 02/17/2015 Comp Metabolic Zvw793 BI LI T 0.6 mg/dL 02/17/2015 Comp Metabolic Njx916 AL BUMIN 4.2 g/dL 02/17/2015 Comp Metabolic Yre584 TP RO 6.2 g/dL 02/17/2015 Comp Metabolic Opp451 GL OB 2.0 g/dL 02/17/2015 Comp Metabolic Hnv889 A/ G Ratio 2.1 Ratio 02/17/2015 Comp Metabolic Ugw354 Os mo 278 mOsmo 02/17/2015 %Hba1C Bwf118 % HbA1c 77149-8 6.7 % 11/15/2014 %Hba1C Maw247 Gluc Ave 146 mg/dL 11/15/2014 Comp Metabolic Mdb767 NA 134 mEq/L 11/15/2014 Comp Metabolic Omk920 K 4.5 mEq/L 11/15/2014 Comp Metabolic Vpk329 CL 101 mEq/L 11/15/2014 Comp Metabolic Fha293 CO2 27.0 mEq/L 11/15/2014 Comp Metabolic Fuo811 AN ION GAP 11 11/15/2014 Comp Metabolic Dqm043 GL UCOSE 293 mg/dL 11/15/2014 Comp Metabolic Qzk295 Cr eat 0.7 mg/dL 11/15/2014 Comp Metabolic Gpn314 eG FR 87 ml/min/1.73m2 11/15 Comp Metabolic Gun834 BUN 20 mg/dL 11/15/2014 Comp Metabolic Fkm664 B/ C Ratio 29.4 Ratio 11/15/2014 Comp Metabolic Ccu838 CA LCIUM 9.0 mg/dL 11/15/2014 Comp Metabolic Bjj981 AL K PHOS 67 U/L 11/15/2014 Comp Metabolic Zmb753 T(SGOT) 17 U/L 11/15/2014 Comp Metabolic Vpr996 AL T(SGPT) 10 U/L 11/15/2014 Comp Metabolic Hjg001 BI LI T 0.6 mg/dL 11/15/2014 Comp Metabolic Eip539 AL BUMIN 4.0 g/dL 11/15/2014 Comp Metabolic Gzx961 TP RO 6.0 g/dL 11/15/2014 Comp Metabolic Jhq743 GL OB 2.0 g/dL 11/15/2014 Comp Metabolic Emk230 A/ G Ratio 2.0 Ratio 11/15/2014 Comp Metabolic Ayc395 Os mo 282 mOsmo 11/15/2014 Review of [...] GLUC MONITOR CONT PH YS I&R CPT-4: 69171 09/16/2017 GLUCOSE MONITORING CONT CPT-4: 10015 07/16/2017 TRIAMCINOLONE ACET I [place] NOS CPT-4: J3301 06/14/2017 DRAIN/INJECT JOINT/B URSA CPT-4: 45819 03/26/2017 TRIAMCINOLONE ACET I [place] NOS CPT-4: J3301 03/26/2017 URINALYSIS NONAUTO W /O SCOPE CPT-4: 66966 01/16/2017 THER/PROPH/DIAG INJ SC/IM CPT-4: 35279 01/16/2017 ROCEPHIN, PER 250 MG CPT-4: J0696 01/16/2017 DESTRUCT PREMALG LESION CPT-4: 63531 10/16/2016 TRIAMCINOLONE ACET I [place] NOS CPT-4: J3301 09/27/2016 ROCEPHIN, PER 250 MG CPT-4: J0696 09/27/2016 PPPS, SUBSEQ VISIT CPT- 4: G0439 07/10/2016 THER/PROPH/DIAG INJ SC/IM CPT-4: 23539 07/09/2016 TRIAMCINOLONE ACET I [place] NOS CPT-4: J3301 07/09/2016 ROCEPHIN, PER 250 MG CPT-4: J0696 07/09/2016 ADMIN PNEUMOCOCCAL V ACCINE SNOMED CT: 87769697 CPT-4: G0009 02/15/2015 PNEUMOCOCCAL VACC 13 [place] IM Formatting Model/CDA Sections, Assigned to SNOMED CT: 69756389 CPT-4: 42532Sflrwym 02/15/2015 ADMIN INFLUENZA VIRU S VAC CPT-4: G0008 12/10/2014 FLU VACC 4 [place] 3 YRS PLUS IM Formatting Model/CDA Sections, Assigned to SNOMED CT: 84939422 CPT-4: 23893Rovojnr 12/10/2014 Vital Signs Date Vital 04/28/2018 Blood Pressure 1: 110/58 Code: 8480-6 BMI: 24.0 Code: 96395-0 Heart Rate 1: 56 bpm Height: 5'2" Respiratory Rate: 18 bpm SpO2: 98% Weight: 131 lbs 12/25/2017 Blood Pressure 1: 140/52 Code: 8480-6 BMI: 24.0 Code: 50816-2 Heart Rate 1: 64 bpm Height: 5'2" Respiratory Rate: 18 bpm SpO2: 96% Weight: 131 lbs 11/22/2017 Blood Pressure 1: 128/54 Code: 8480-6 BMI: 23.4 Code: 83091-1 Heart Rate 1: 62 bpm Height: 5'2" SpO2: 97% Weight: 128 lbs 10/07/2017 Blood Pressure 1: 148/68 Code: 8480-6 BMI: 23.2 Code: 42464-5 Heart Rate 1: 68 bpm Height: 5'2" SpO2: 98% Weight: 127 lbs 09/16/2017 Blood Pressure 1: 134/80 Code: 8480-6 BMI: 22.5 Code: 80391-4 Heart Rate 1: 86 bpm Height: 5'2" SpO2: 98% Weight: 123 lbs 09/09/2017 Blood Pressure 1: 150/66 Code: 8480-6 Blood Pressure 1: 138/72 Code: 8480-6 BMI: 22.9 Code: 20246-6 Heart Rate 1: 81 bpm Height: 5'2" SpO2: 98% Weight: 125 lbs 07/16/2017 Blood Pressure 1: 144/68 Code: 8480-6 BMI: 21.9 Code: 42663-8 Heart Rate 1: 73 bpm Height: 5'2" SpO2: 98% Weight: 120 lbs 06/14/2017 Blood Pressure 1: 132/64 Code: 8480-6 BMI: 22.3 Code: 22248-5 Heart Rate 1: 77 bpm Height: 5'2" SpO2: 98% Temperature: 37.0 (C ) / 98.6 (F) Weight: 122 lbs 06/10/2017 Blood Pressure 1: 134/64 Code: 8480-6 BMI: 22.5 Code: 23152-7 Heart Rate 1: 78 bpm Height: 5'2" SpO2: 95% Weight: 123 lbs 05/13/2017 Blood Pressure 1: 140/66 Code: 8480-6 BMI: 21.6 Code: 58962-4 Heart Rate 1: 80 bpm Height: 5'2" SpO2: 98% Weight: 118 lbs 03/26/2017 Blood Pressure 1: 150/78 Code: 8480-6 BMI: 23.2 Code: 68386-1 Heart Rate 1: 73 bpm Height: 5'2" SpO2: 99% Weight: 127 lbs 02/19/2017 Blood Pressure 1: 126/64 Code: 8480-6 BMI: 22.9 Code: 10973-7 Heart Rate 1: 74 bpm Height: 5'2" SpO2: 99% Weight: 125 lbs 01/16/2017 Blood Pressure 1: 136/68 Code: 8480-6 Heart Rate 1: 97 bpm Height: 5'2" Respiratory Rate: 16 bpm Temperature: 37.5 (C ) / 99.5 (F) Weight: 01/08/2017 Blood Pressure 1: 144/60 Code: 8480-6 BMI: 23.0 Code: 89825-0 Heart Rate 1: 71 bpm Height: 5'2" SpO2: 96% Weight: 126 lbs 11/21/2016 Blood Pressure 1: 150/62 Code: 8480-6 BMI: 23.2 Code: 79991-6 Heart Rate 1: 73 bpm Height: 5'2" SpO2: 94% Weight: 127 lbs 10/16/2016 Blood Pressure 1: 142/82 Code: 8480-6 BMI: 22.9 Code: 62015-6 Heart Rate 1: 80 bpm Height: 5'2" SpO2: 96% Weight: 125 lbs 10/08/2016 Blood Pressure 1: 150/72 Code: 8480-6 Heart Rate 1: 65 bpm Height: 5'2" SpO2: 98% 10/01/2016 Blood Pressure 1: 152/76 Code: 8480-6 Heart Rate 1: 69 bpm Height: 5'2" SpO2: 97% 09/27/2016 Blood Pressure 1: 122/64 Code: 8480-6 BMI: 23.3 Code: 89562-2 Heart Rate 1: 80 bpm Height: 5'2" SpO2: 98% Weight: 127 lbs 8 oz 07/19/2016 Blood Pressure 1: 118/68 Code: 8480-6 BMI: 23.0 Code: 00642-5 Heart Rate 1: 62 bpm Height: 5'2" SpO2: 97% Weight: 126 lbs 07/10/2016 Blood Pressure 1: 132/64 Code: 8480-6 BMI: 23.4 Code: 05403-6 Heart Rate 1: 82 bpm Height: 5'2" SpO2: 98% Waist Measure (cm): 76 cm Weight: 128 lbs 07/09/2016 Blood Pressure 1: 132/64 Code: 8480-6 BMI: 23.4 Code: 91528-0 Heart Rate 1: 82 bpm Height: 5'2" SpO2: 98% Temperature: 37.2 (C ) / 98.9 (F) Weight: 128 lbs 06/06/2016 Blood Pressure 1: 144/66 Code: 8480-6 BMI: 23.4 Code: 40885-1 Heart Rate 1: 77 bpm Height: 5'2" SpO2: 97% Weight: 128 lbs 04/03/2016 Blood Pressure 1: 164/70 Code: 8480-6 BMI: 24.5 Code: 39615-3 Heart Rate 1: 80 bpm Height: 5'2" SpO2: 98% Weight: 134 lbs 12/26/2015 Blood Pressure 1: 130/72 Code: 8480-6 BMI: 24.1 Code: 94502-4 Heart Rate 1: 63 bpm Height: 5'2" SpO2: 98% Weight: 132 lbs 09/19/2015 Blood Pressure 1: 140/68 Code: 8480-6 BMI: 24.2 Code: 94262-3 Heart Rate 1: 96 bpm Height: 5'2" SpO2: 98% Weight: 132 lbs 8 oz 07/19/2015 Blood Pressure 1: 128/64 Code: 8480-6 BMI: 24.2 Code: 54738-5 Heart Rate 1: 66 bpm Height: 5'2" SpO2: 98% Weight: 132 lbs 8 oz 03/22/2015 Blood Pressure 1: 128/60 Code: 8480-6 BMI: 24.0 Code: 19832-9 Heart Rate 1: 57 bpm Height: 5'2" SpO2: 98% Weight: 131 lbs 02/15/2015 Blood Pressure 1: 132/56 Code: 8480-6 BMI: 23.8 Code: 54192-7 Heart Rate 1: 70 bpm Height: 5'2" SpO2: 98% Weight: 130 lbs 11/15/2014 Blood Pressure 1: 120/78 Code: 8480-6 BMI: 24.1 Code: 61144-0 Heart Rate 1: 79 bpm Height: 5'2" SpO2: 98% Weight: 132 lbs 08/13/2014 Blood Pressure 1: 140/60 Code: 8480-6 BMI: 24.0 Code: 70030-5 Heart Rate 1: 74 bpm Height: 5'2" Weight: 131 lbs Functional Status No Functional Status data History of Present Illness Symptom Name Status Resu lt Effective Date Notes Quality stable 04/28/2018 None Length of Episodes 3 d ays 04/28/2018 None Timing of Episodes no specific time 04/28/2018 None Timing of Episodes aft er meals 04/28/2018 None Location in the [facility] [place] area 04/28/2018 None Quality aching 04/28/2018 None [...] Factors activity 09/09/2017 None hypertension Quality [place] nathalia hypertension 09/09/2017 None hypertension Onset and Resolution [...] Denies nausea 01/16/2017 None hypertension Quality [place] mattson hypertension 01/08/2017 None hypertension Onset and Resolution [...] nausea 11/21/2016 None cough Location in the [place] roat 11/21/2016 None hypertension Quality [place] mattson hypertension 11/21/2016 None diabetes mellitus Test results [...] Encounters Encounter Performer Loca tion Codes Date ([id number]) 90520 EST. P ATIENT, LEVEL IV Diagnosis: Essential (primary) hypertension[ICD10: I10] Diagnosis: Type 2 diabetes mellitus with hyperglycemia[ICD10: E11.65] Diagnosis: Trigger finger, right middle finger[ICD10: M65.331] Dominique Recinos MD, [facility] CPT-4: 62263 04/28/2018 ([id number]) 75657 EST. P ATIENT, LEVEL IV Diagnosis: Type 2 diabetes mellitus with hyperglycemia[ICD10: E11.65] Diagnosis: Essential (primary) hypertension[ICD10: I10] Diagnosis: Localized edema[ICD10: R60.0] Dominique Recinos MD, [facility] CPT-4: 31826 12/25/2017 ([id number]) 24897 EST. P ATIENT, LEVEL IV Diagnosis: Diverticulitis of large intestine without perforation or abscess without bleeding[ICD10: K57.32] Diagnosis: Nausea[ICD10: R11.0] Maile Recinos MD, [facility] CPT-4: 71815 11/22/2017 ([id number]) Miscellaneou s no charge Diagnosis: Laceration without foreign body of right forearm, subsequent encounter[ICD10: S51.811D] Dominique Recinos MD, [facility] CPT-4: 60612 10/16/2017 ([id number]) Miscellaneou s no charge Diagnosis: Laceration without foreign body of right forearm, subsequent encounter[ICD10: S51.811D] Dominique Recinos MD, [facility] CPT-4: 71890 10/14/2017 ([id number]) Miscellaneou s no charge Diagnosis: Laceration without foreign body of right forearm, subsequent encounter[ICD10: S51.811D] Dominique Recinos MD, [facility] CPT-4: 12814 10/09/2017 ([id number]) 93661 EST. P ATIENT, LEVEL III Diagnosis: Type 2 diabetes mellitus with hyperglycemia[ICD10: E11.65] Dominique Recinos MD, C CPT-4: 17448 10/07/2017 ([id number]) 35892 EST. P ATIENT, LEVEL III Diagnosis: Type 2 diabetes mellitus with hyperglycemia[ICD10: E11.65] Fatmata Recinos MD, [facility] CPT-4: 28253 09/16/2017 ([id number]) 64887 EST. P ATIENT, LEVEL III Diagnosis: Essential (primary) hypertension[ICD10: I10] Dominique Recinos MD, C CPT-4: 55671 09/09/2017 ([id number]) Miscellaneou s no charge Diagnosis: Type 1 diabetes mellitus without complications[ICD10: E10.9] Fatmata Recinos MD, [facility] CPT-4: 13030 07/22/2017 ([id number]) 62644 EST. P ATIENT, LEVEL IV Diagnosis: Type 1 diabetes mellitus without complications[ICD10: E10.9] Diagnosis: Mixed hyperlipidemia[ICD10: E78.2] Diagnosis: Essential (primary) hypertension[ICD10: I10] Dominique Recinos MD, C CPT-4: 89729 07/16/2017 ([id number]) 83782 EST. P ATIENT, LEVEL III Diagnosis: Cough[ICD10: R05] Diagnosis: Acute recurrent maxillary sinusitis[ICD10: J01.01] Maile Recinos MD, [facility] CPT-4: 50328 06/14/2017 ([id number]) 92304 EST. P ATIENT, LEVEL IV Diagnosis: Type 1 diabetes mellitus without complications[ICD10: E10.9] Diagnosis: Essential (primary) hypertension[ICD10: I10] Dominique Recinos MD, C CPT-4: 68506 06/10/2017 ([id number]) 54818 EST. P ATIENT, LEVEL IV Diagnosis: Essential (primary) hypertension[ICD10: I10] Diagnosis: Type 1 diabetes mellitus without complications[ICD10: E10.9] Dominique Recinos MD, [facility] CPT-4: 61260 05/13/2017 80454 EST. PATIENT, LEVEL III Diagnosis: Sciatica, right side[ICD10: M54.31] Diagnosis: Low back pain[ICD10: M54.5] Fatmata Recinos MD, [facility] CPT-4: 31500 03/26/2017 ([id number]) 24237 EST. P ATIENT, LEVEL III Diagnosis: Type 1 diabetes mellitus without complications[ICD10: E10.9] Diagnosis: Essential (primary) hypertension[ICD10: I10] Dominique Recinos MD, C CPT-4: 38121 02/19/2017 ([id number]) 33880 EST. P ATIENT, LEVEL IV Diagnosis: Fever presenting with conditions classified elsewhere[ICD10: R50.81] Diagnosis: Weakness[ICD10: R53.1] Diagnosis: Frequency of micturition[ICD10: R35.0] Diagnosis: Type 1 diabetes mellitus without complications[ICD10: E10.9] Dominique Recinos MD, [facility] CPT-4: 50104 01/16/2017 ([id number]) 67983 EST. P ATIENT, LEVEL IV Diagnosis: Type 1 diabetes mellitus without complications[ICD10: E10.9] Diagnosis: Essential (primary) hypertension[ICD10: I10] Dominique Recinos MD, C CPT-4: 61041 01/08/2017 ([id number]) 34889 EST. P ATIENT, LEVEL IV Diagnosis: Essential (primary) hypertension[ICD10: I10] Diagnosis: Type 1 diabetes mellitus without complications[ICD10: E10.9] Dominique Recinos MD, [facility] CPT-4: 07528 11/21/2016 ([id number]) 18824 EST. 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 CPT-4: 65533 10/16/2016 ([id number]) 21784 EST. P ATIENT, LEVEL III Diagnosis: Chronic obstructive pulmonary disease with (acute) exacerbation[ICD10: J44.1] Diagnosis: Cough[ICD10: R05] Maile Recinos MD, [facility] CPT-4: 75472 10/08/2016 ([id number]) Miscellaneou s no charge Diagnosis: Cough[ICD10: R05] Diagnosis: Chronic obstructive pulmonary disease with (acute) exacerbation[ICD10: J44.1] Maile Recinos MD, [facility] CPT-4: 30046 10/01/2016 ([id number]) 85717 EST. P ATIENT, LEVEL III Diagnosis: Cough[ICD10: R05] Diagnosis: Acute bronchitis, unspecified[ICD10: J20.9] Maile Recinos MD, [facility] CPT-4: 57326 09/27/2016 ([id number]) 29038 EST. P ATIENT, LEVEL III Diagnosis: Type 1 diabetes mellitus without complications[ICD10: E10.9] Dominique Recinos MD, [facility] CPT-4: 13393 07/19/2016 ([id number]) 94159 EST. P ATIENT, LEVEL IV Diagnosis: Essential (primary) hypertension[ICD10: I10] Diagnosis: Type 1 diabetes mellitus without complications[ICD10: E10.9] Diagnosis: Other allergic rhinitis[ICD10: J30.89] Diagnosis: Acute laryngopharyngitis[ICD10: J06.0] Dominique Recinos MD, [facility] CPT-4: 54498 07/09/2016 ([id number]) 69809 EST. P ATIENT, LEVEL IV Diagnosis: Essential (primary) hypertension[ICD10: I10] Diagnosis: Type 1 diabetes mellitus without complications[ICD10: E10.9] Diagnosis: Mixed hyperlipidemia[ICD10: E78.2] Dominique Recinos MD, [facility] CPT- 4: 69878 06/06/2016 75582 EST. PATIENT, LEVEL III Diagnosis: Other allergic rhinitis[ICD10: J30.89] Diagnosis: Acute laryngopharyngitis[ICD10: J06.0] Fatmata Recinos MD, [facility] CPT-4: 79187 04/03/2016 ([id number]) 84155 EST. P ATIENT, LEVEL IV Diagnosis: Type 1 diabetes mellitus without complications[ICD10: E10.9] Diagnosis: Essential (primary) hypertension[ICD10: I10] Diagnosis: Pain in right hand[ICD10: M79.641] Dominique Recinos MD, [facility] CPT- 4: 93024 12/26/2015 ([id number]) 88926 EST. P ATIENT, LEVEL IV Diagnosis: Type 1 diabetes mellitus without complications[ICD10: E10.9] Diagnosis: Essential (primary) hypertension[ICD10: I10] Dominique Recinos MD, [facility] CPT-4: 22749 09/19/2015 ([id number]) 27831 EST. P ATIENT, LEVEL IV Diagnosis: Essential (primary) hypertension[ICD10: I10] Diagnosis: Mixed hyperlipidemia[ICD10: E78.2] Diagnosis: Type 1 diabetes mellitus without complications[ICD10: E10.9] Dominique Recinos MD, [facility] CPT-4: 91603 07/19/2015 ([id number]) 32602 EST. P ATIENT, LEVEL IV Diagnosis: Other specified dorsopathies, lumbar region[ICD10: M53.86] Diagnosis: Urge incontinence[ICD10: N39.41] Diagnosis: Type 1 diabetes mellitus without complications[ICD10: E10.9] Dominique Recinos MD, [facility] CPT-4: 91050 03/22/2015 ([id number]) 17238 EST. P ATIENT, LEVEL IV Diagnosis: Essential (primary) hypertension[ICD10: I10] Diagnosis: Other specified dorsopathies, lumbar region[ICD10: M53.86] Diagnosis: Other chronic pain[ICD10: G89.29] Dominique Recinos MD, [facility] CPT-4: 29543 02/15/2015 ([id number]) 28643 EST. P ATIENT, LEVEL IV Diagnosis: ESSENTIAL HYPERTENSION[ICD9: 401.9] Diagnosis: DIABETES TYPE II[ICD9: 250.00] Diagnosis: FALL FROM LADDER[ICD9: E881.0] Diagnosis: Right hip pain[ICD9: 719.45] Diagnosis: Left hand pain[ICD9: 729.5] Diagnosis: Sacroiliac joint pain[ICD9: 724.6] Dominique Recinos MD, [facility] CPT- 4: 39844 11/15/2014 ([id number]) OFFICE VISI T, NEW - LEVEL 4 Diagnosis: DIABETES TYPE II[ICD9: 250.00] Diagnosis: ESSENTIAL HYPERTENSION[ICD9: 401.9] Diagnosis: HYPERLIPIDEMIA[ICD9: 272.4] [facility] CPT-4: 88409 08/13/2014 Plan of Care Planned Activity Notes [...] less controlled. 04/28/2018 Appointment: Dominique Recinos WPtel: [phone] [facility] (15 min) Moderate 04/28/2018 Patient Education: Patient [...] while seated. 12/25/2017 App[facility]ment: [phone] (15 min) Moderate 12/25/2017 Patient Education: Patient Medication Summary Completed 12/25/2017 Patient Education: Diabetes Completed 12/25/2017 Appointment: Dominique Recinos WPtel: [phone] [facility] (15 min) Moderate 12/09/2017 Visit Plan: Diverticulitis - rx for antibiotic sent to pt's pharmacy - pt advised to avoid seeds, nuts, popcorn, or any other food which has been proven to upset the pt's stomach. 11/22/2017 Appointment: Maile Randolph WPtel: [phone] [phone] [place] (15 min) Moderate 11/22/2017 [...] 10/08/2017 Visit Plan: Diabetes Mellitus - con stephenieed [...] blood glucose. 10/07/2017 Appointment: Dominique Recinos WPtel: [phone] [facility] [place] (15 min) Moderate 10/07/2017 Patient Education: [...] Visit Plan: Diabetes Mellitus - I h jhony recommended for the patient to have follow [...] clinic. 09/16/2017 Appointment: [facility] Spann [phone] (15 min) Moderate 09/16/2017 Patient Education: Patient [...] home. 09/09/2017 Appointment: Domin[facility]Ptel[phone] [facility] [place] (15 min) Moderate 09/09/2017 Patient Education: Patient Medication Summary Completed 09/09/2017 Appointment: Maile Randolph [facility]el[phone] [place] (15 min) Moderate 09/06/2017 Appointment: Domin[facility] Recinos [facility]Ptel[phone] [facility] [place] (15 min) Moderate 09/05/2017 Appointment: Fatmata Spann [facility]Ptel: [phone] [place] (15 min) Moderate 07/22/2017 Patient Education: [...] less controlled. ipro placed today - by [employer] - pt to RTC on Saturday for [...] less controlled. ipro placed today - by [employer] - pt to RTC on Saturday for [...] medications. 07/16/2017 Appointment: Domin[facility] Recinos [facility]Ptel[phone] [facility] (15 min) Moderate 07/16/2017 Patient Education: Patient Medication Summary Completed 07/16/2017 Visit Plan: Sinusitis - Pt has acut e infection - pain in face, maxillary region, Pt informed to use decongestant, RX given to patient, sinus rinses also recommended. Call if symptoms do not show improvement. 06/14/2017 Appointment: Maile Randolph [facility]Ptel[phone] [place] (30 min) Complex 06/14/2017 Patient Education: [...] home. 06/10/2017 Appointment: Dominique Recinos [facility]Ptel: [phone] [facility] [place] (15 min) Moderate 06/10/2017 Patient Education: Patient Medication Summary Completed 06/10/2017 Appointment: Fatmata Spann WPtel: [phone] [place] (30 min) Complex 06/03/2017 Visit Plan: [...] controlled. 05/13/2017 Appointment: Domin[facility] Recinos [facility]Ptel: [phone] [facility] [place] (15 min) Moderate 05/13/2017 Patient Education: Patient Medication Summary Completed 05/13/2017 Appointment: Domin[facility] Recinos [facility]Ptel[phone] [facility] [place] (30 min) Complex 05/03/2017 Appointment: Fatmata Spann WPtel: [phone] [facility] [place] (15 min) Moderate 04/12/2017 Appointment: Dominique Recinos WPtel: [phone] [facility] [place] (15 min) Moderate 04/11/2017 Appointment: Dominique Recinos WPtel[phone] [facility] [place] (15 min) Moderate 04/10/2017 Appointment: Dominique Recinos WPtel: [phone] [facility] [place] (15 min) Moderate 04/02/2017 Visit [...] of injection. 03/26/2017 Appointment: Fatmata Spann WPtel: [phone] [facility] (30 min) Complex 03/26/2017 Appointment: Dominique Recinos WPtel: [facility] (15 min) Moderate 03/26/2017 Patient Education: Patient [...] at home. 02/19/2017 Appointment: Dominique Recinos WPtel: [facility] (15 min) Moderate 02/19/2017 Patient Education: Patient Medication Summary Completed 02/19/2017 Patient Education: Hypertension Completed 02/19/2017 Appointment: Dominique Recinos WPtel: [facility] (15 min) Moderate 02/12/2017 Visit Plan: [...] 100F. 01/16/2017 Appointment: Dominique Recinos WPtel: [phone] [facility] (15 min) Moderate 01/16/2017 Patient Education: [...] home. 01/08/2017 Appointment: Domin[facility] Recinos WPtel: [phone] [facility] (15 min) Moderate 01/08/2017 Patient Education: Patient Medication Summary Completed 01/08/2017 Patient Education: Hypertension Completed 01/08/2017 Appointment: Dominique Recinos WPtel: [phone] [facility] [place] (15 min) Moderate 12/31/2016 Appointment: Dominique Recinos WPtel: [phone] [facility] (15 min) Moderate 12/18/2016 Visit Plan: [...] controlled. 11/21/2016 Appointment: Domin[facility] Recinos WPtel: [phone] [facility] [place] (15 min) Moderate 11/21/2016 Patient [...] potatoes, creamy coleslaw, etc. -- referral to [facility] extension specialist. Hyperlipidemia - pt has been counseled [...] etc. 10/16/2016 Appointment: Dominique Recinos WPtel: [phone] [facility] [place] (15 min) Moderate 10/16/2016 Patient Education: Patient Medication Summary Completed 10/16/2016 Patient Education: Hypertension Completed 10/16/2016 Patient Education: Patient Medication Summary Completed 10/09/2016 Care Plan: Free T4 Pending 10/09/2016 Visit Plan: COPD exacerbation-cough -symptoms resolved-call if symptoms return-monitor blood sugars closely for the next few days and discussed diet. 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 10/01/2016 Appointment: Maile Randolph WPtel: [phone] (30 min) Complex 10/01/2016 Patient Education: Patient Medication Summary Completed 10/01/2016 Visit Plan: Bronchitis - acute case of bronchitis identified. Pt has been given antibiotics, breathing treatments as appropriate, and pt has been instructed to call if symptoms are not improved, or if symptoms acutely worsen. 09/27/2016 Appointment: Maile Randolph WPtel: [phone] (30 min) Complex 09/27/2016 Patient [...] less controlled. 07/19/2016 Appointment: Dominique Recinos WPtel: [facility] (15 min) Moderate 07/19/2016 Patient [...] care surrogate. 07/10/2016 Appointment: Fatmata Spann WPtel: [phone] [facility] - Annual Wellness Visit 07/10/2016 [...] not improving 07/09/2016 Appointment: Dominique Recinos WPtel: [phone] [facility] (15 min) Moderate 07/09/2016 Patient Education: Patient Medication Summary Completed 07/09/2016 Patient Education: Hypertension Completed 07/09/2016 Appointment: Dominique Recinos WPtel: [phone] [facility] (15 min) Moderate 06/26/2016 Visit Plan: Hypertension [...] me dications. 06/06/2016 Appointment: Dominique Recinos WPtel: [facility] (15 min) Moderate 06/06/2016 Patient Education: Patient Medication Summary Completed 06/06/2016 Appointment: Dominique Recinos WPtel: [facility] (15 min) Moderate 04/30/2016 Visit [...] allergy spray. 04/03/2016 Appointment: Fatmata Spann WPtel: [facility] (30 min) Complex 04/03/2016 Patient Education: Patient [...] Completed 12/26/2015 Appointment: Dominique Recinos WPtel: [phone] [facility] (15 min) Moderate 12/19/2015 Visit Plan: Diabetes [...] home. 09/19/2015 Appointment: Domin[facility] Recinos [facility]Ptel: [phone] (15 min) Moderate 09/19/2015 Patient Education: [...] dications. 07/19/2015 Appointment: Dominique Recinos WPtel: [phone] [facility] (15 min) Moderate 07/19/2015 Patient Education: [...] treat. 03/22/2015 Appointment: Dominique Recinos WPtel: [phone] [facility] (15 min) Moderate 03/22/2015 Patient Education: Patient Medication Summary Completed 03/22/2015 Care Plan: Referral Order SNOMED-CT : [id number] Ordered 03/22/2015 Visit Plan: Hypertension - well [...] Completed 11/15/2014 Visit Plan: Diabetes Mellitus - roxie jenkins [...] me dications. 08/13/2014 Appointment: Dominique Recinos WPtel: [facility] [place] ([place] New Patient 08/13/2014 Patient Education: Patient Medication Summary Completed 08/13/2014 Patient Education: Hypertension Completed 08/13/2014 Referral: External, Ordering Provider Referral Appointment Requested Instructions Comment joey . Bronchitis - acute case of bronchitis [...] potatoes, creamy coleslaw, etc. -- referral to university extension specialist. Hyperlipidemia - pt has been counseled [...] refer Nathalia for diabetic education at the [facility]. Increase the protein in your diet. [...] show improvement. two old goats - from [place] and home . Hypertension - well controlled [...] less controlled. ipro placed today - by [employer] - pt to RTC on Saturday for [...] less controlled. ipro placed today - by [employer]ICE [employer] - pt to RTC on Saturday for [...] . Diabetes Mellitus - controlled - per danni castaneda FSBS reports. I have recommended for the [...]
--- OUTSIDE RECORDS SUMMARY | 2019-06-14 17:01 | XMS REPORT | CCD ---
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 Name Role Phone PP Unavailable CCM Unavailable Summary Purpose Interface Exchange Insurance Providers Payer name Policy type / Coverage type Covered alliance party ID Effective Begin Date Effective End Date WPS Medicare Part B Medicare Part B [id number] Unknown [facility] ica Part B [id number] Un known Family history Mother Diagnosis Age At Onset No Family Disease Entered N/A Father Diagnosis Age At Onset Heart Attack Unknown Diabetes Unknown Social History Social History Element Codes Description Effective Dates Number of children Unknown 2 Sons, 5 grandchildren, 11 great grandchildren 01/08/2017 Marital status Unknown W crystal [place] in 201606/06/[address]: 838644120 Never smoker 08/13/[address]: 549101639 Never drinks alcohol 08/13/2014 Allergies, Adverse Reactions, [...] Date Stop Date Sta tus Fill Instructions [employer] Strips RxNorm: USE STRIP TO TEST SEVEN TIMES A DAY 07/10/2018 08/11/2018 Ac tive Zocor 20 mg tablet RxNorm: 687543 1 Tablet(s) PO daily 06/10/2018 06/04/2019 Active Benicar 40 mg tablet RxNorm: 996261 Tablet(s) TAKE ONE TABLET BY MOUTH DAILY 06/06/2018 06/25/2018 In active metoprolol tartrate 50 mg tablet RxNorm: 904663 TAKE ONE TABLET BY MO UTH TWICE A DAY 05/19/2018 05/13/2019 Ac tive hydrochlorothiazide 12.5 mg capsule RxNorm: 491503 TAKE ONE CAPSULE BY M OUTH DAILY 05/19/2018 05/13/2019 Ac tive Atacand 32 mg tablet RxNorm: 657930 1 Tablet(s) PO daily 05/12/2018 05/11/2018 Inactive This is to replace benicar Atacand 32 mg tablet RxNorm: 307113 1 Tablet(s) PO daily 05/12/2018 06/05/2018 Inactive This is to replace benicar Benicar 40 mg tablet RxNorm: 057414 TAKE ONE TABLET BY MOUTH DAILY 05/07/2018 05/06/2018 In active Benicar 40 mg tablet RxNorm: 396662 Tablet(s) TAKE ONE TABLET BY MOUTH DAILY 05/07/2018 05/11/2018 In active Zoloft 50 mg tablet RxNorm: 947709 TAKE ONE TABLET BY MOUTH DAILY 04/28/2018 04/22/2019 Ac tive gabapentin 100 mg ca psule RxNorm: 169197 TAKE ONE CAPSULE BY M OUTH THREE TIMES A DAY 04/09/2018 07/16/2018 Ac tive Novolog U-100 Insuli n aspart 100 unit/mL subcutaneous solution RxNorm: 919580 SSI 5 units over 150 and for every additional 50 add 2 units Unit(s) SQ TID adjust as needed for glucose control 12/25/2017 07/22/2018 Active Cipro 500 mg tablet RxNorm: 706497 1 Tablet(s) PO BID 11/22/2017 12/01/2017 Inactive clotrimazole 1 % top ical cream RxNorm: 635585 1 Application TOP BID 11/22/2017 12/05/2017 Inactive Flagyl 500 mg tablet RxNorm: 491158 1 Tablet(s) PO TID 11/22/2017 12/01/2017 Inactive Lantus U-100 Insulin 100 unit/mL subcutaneous solution RxNorm: 576035 17 Unit(s) SQ QAM 11/11/2017 07/08/2018 Inactive Novolog U-100 Insuli n aspart 100 unit/mL subcutaneous solution RxNorm: 865510 SSI 5 units over 150 and for every additional 50 add 2 units Unit(s) SQ TID adjust as needed for glucose control 11/11/2017 12/24/2017 Inactive gabapentin 100 mg ca psule RxNorm: 925974 TAKE ONE CAPSULE BY M OUTH THREE TIMES A DAY 11/05/2017 02/11/2018 Inactive Kenalog 40 mg/mL fanny pension for injection RxNorm: 4567606 1 Milliliter(s) Inj 06/14/2017 06/14/2017 In active Flonase Allergy Reli ef 50 mcg/actuation nasal spray,suspension RxNorm: 4938556 2 [place] NASAL daily 06/14/2017 06/20/2017 Inactive doxycycline hyclate 100 mg tablet RxNorm: 358705 1 Tablet(s) PO BID 06/14/2017 06/20/2017 Inactive Lantus U-100 Insulin 100 unit/mL subcutaneous solution RxNorm: 716982 17 Unit(s) SQ QAM 06/10/2017 07/09/2017 Inactive gabapentin 100 mg ca psule RxNorm: 148701 TAKE ONE CAPSULE BY M OUTH THREE TIMES A DAY 05/23/2017 08/29/2017 Inactive Lantus U-100 Insulin 100 unit/mL subcutaneous solution RxNorm: 541052 15 Unit(s) SQ QAM 05/14/2017 06/09/2017 Inactive Novolog U-100 Insuli n aspart 100 unit/mL subcutaneous solution RxNorm: 392421 SSI 5 units over 150 and for every additional 50 add 2 units Unit(s) SQ TID adjust as needed for glucose control 04/24/2017 11/10/2017 Inactive Zocor 20 mg tablet RxNorm: 750444 1 Tablet(s) PO daily 04/05/2017 03/30/2018 Inactive Kenalog 40 mg/mL fanny pension for injection RxNorm: 9772389 1 Milliliter(s) Inj 03/26/2017 03/26/2017 In active Novolog 100 unit/mL subcutaneous solution RxNorm: 634473 SSI 5 units over 150 and for every additional 50 add 2 units Unit(s) SQ TID adjust as needed for glucose control 02/19/2017 04/23/2017 Inactive Lantus 100 unit/mL s ubcutaneous solution RxNorm: 638048 10 Unit(s) SQ QAM 02/19/2017 05/13/2017 In active ceftriaxone 500 mg s olution for injection RxNorm: 0751915 Inj 01/16/2017 01/16/2017 Inactive Lantus 100 unit/mL s ubcutaneous solution RxNorm: 492270 7 Unit(s) SQ QAM 01/16/2017 02/18/2017 In active Lantus 100 unit/mL s ubcutaneous solution RxNorm: 827330 10 Unit(s) SQ daily 01/08/2017 05/12/2017 In active gabapentin 100 mg ca psule RxNorm: 906229 TAKE ONE CAPSULE BY M OUTH THREE TIMES A DAY 11/30/2016 02/03/2017 Inactive Zoloft 50 mg tablet RxNorm: 228392 TAKE ONE TABLET BY MOUTH DAILY 10/30/2016 04/27/2017 In active Zocor 20 mg tablet RxNorm: 014918 1 Tablet(s) PO daily 10/16/2016 04/04/2017 Inactive stop the 40mg dose of zocor, start on 20 mg Lantus 100 unit/mL s ubcutaneous solution RxNorm: 854556 15 Unit(s) SQ daily 10/16/2016 01/07/2017 In active Novolog 100 unit/mL subcutaneous solution RxNorm: 173343 SSI 5 units over 150 and for every additional 50 add 2 units Unit(s) SQ TID adjust as needed for glucose control 10/16/2016 02/18/2017 Inactive prednisone 20 mg tablet RxNorm: 075552 1 Tablet(s) PO BID 10/01/2016 10/05/2016 Inactive Kenalog 40 mg/mL fanny pension for injection RxNorm: 1380228 1 Milliliter(s) Inj 09/27/2016 09/27/2016 In active Zithromax Z-Kishor 250 mg tablet RxNorm: 643537 1 Tablet(s) PO UD 09/27/2016 10/01/2016 Inactive ceftriaxone 500 mg s olution for injection RxNorm: 3475146 1 Milliliter(s) Inj 09/27/2016 09/27/2016 In active Augmentin 500 mg-125 mg tablet RxNorm: 166420 1 Tablet(s) PO BID 09/22/2016 09/26/2016 Inactive Tessalon Perles 100 mg capsule RxNorm: 393789 1 Capsule(s) PO Q8 MS N as needed 09/22/2016 04/27/2018 In active metoprolol tartrate 50 mg tablet RxNorm: 756394 TAKE ONE TABLET BY MO UTH TWICE A DAY 08/02/2016 07/27/2017 Inactive Novolog 100 unit/mL subcutaneous solution RxNorm: 529230 10 Unit(s) SQ TID adj ust as needed for glucose control 07/19/2016 10/15/2016 Inactive Humalog 100 unit/mL subcutaneous solution RxNorm: 692682 INJECT 10 UNITS UNDER THE SKIN BEFORE EACH MEAL 07/16/2016 07/16/2016 Inactive Kenalog 40 mg/mL fanny pension for injection RxNorm: 8674445 1 Milliliter(s) Inj 07/09/2016 07/09/2016 In active ceftriaxone 500 mg s olution for injection RxNorm: 9535342 Inj 07/09/2016 07/09/2016 Inactive Lantus 100 unit/mL s ubcutaneous solution RxNorm: 578277 Unit(s) INJECT 13 UNI TS UNDER THE SKIN IN THE MORNING 06/06/2016 10/15/2016 Inactive Zoloft 50 mg tablet RxNorm: 169158 TAKE ONE TABLET BY MOUTH DAILY 04/27/2016 07/25/2016 In active Lantus 100 unit/mL s ubcutaneous solution RxNorm: 012085 INJECT 20 UNITS UNDER THE SKIN AT BEDTIME 04/27/2016 06/05/2016 Inactive amoxicillin 500 mg c apsule RxNorm: 010695 1 Capsule(s) PO TID 04/03/2016 04/12/2016 Inactive Zyrtec 10 mg tablet RxNorm: 9251646 1 Tablet(s) PO daily 04/03/2016 05/02/2016 Inactive hydrochlorothiazide 12.5 mg capsule RxNorm: 492181 TAKE ONE CAPSULE BY M OUTH DAILY 03/12/2016 12/06/2016 In active Benicar 40 mg tablet RxNorm: 475165 1 Tablet(s) PO daily 02/28/2016 04/27/2016 Inactive Benicar 40 mg tablet RxNorm: 100643 1 Tablet(s) PO daily 02/20/2016 02/27/2016 Inactive gabapentin 100 mg ca psule RxNorm: 124102 TAKE ONE CAPSULE BY M OUT THREE TIMES A DAY 01/09/2016 04/16/2016 Inactive metoprolol tartrate 50 mg tablet RxNorm: 367367 TAKE ONE TABLET BY MO [facility] TWICE A DAY 01/09/2016 04/07/2016 Inactive Humalog 100 unit/mL subcutaneous solution RxNorm: 755432 5-10 Unit(s) SQ AC 07/19/2015 07/18/2016 In active Lantus 100 unit/mL s ubcutaneous solution RxNorm: 570774 13 Unit(s) SQ QAM 07/19/2015 01/15/2017 In active Lantus 100 unit/mL s ubcutaneous solution RxNorm: 936945 20 Unit(s) SQ QHS 07/14/2015 07/18/2015 In active Zoloft 50 mg tablet RxNorm: 296764 1 Tablet(s) PO daily 05/19/2015 09/15/2015 Inactive Humalog 100 unit/mL subcutaneous solution RxNorm: 440080 10 Unit(s) SQ AC 05/11/2015 07/18/2015 In active metoprolol tartrate 50 mg tablet RxNorm: 275074 1 Tablet(s) PO BID 04/28/2015 08/25/2015 Inactive Lantus 100 unit/mL s ubcutaneous solution RxNorm: 376982 20 Unit(s) SQ QHS 04/28/2015 07/13/2015 In active Vesicare 10 mg tablet RxNorm: 750050 1 Tablet(s) PO QPM 03/22/2015 09/18/2015 Inactive hydrochlorothiazide 12.5 mg capsule RxNorm: 106575 1 Tablet(s) PO daily 01/04/2015 12/29/2015 In active gabapentin 100 mg ca psule RxNorm: 757009 1 Capsule(s) PO TID 11/29/2014 03/28/2015 Inactive FreeStyle Lite Strips RxNorm: Miscellaneous 10/19/2014 10/18/2014 Inactive chec k blood sugar three times a day FreeStyle Lite Strips RxNorm: Miscellaneous 10/19/2014 10/18/2014 Inactive chec k blood sugar three times a day FreeStyle Lite Strips RxNorm: Miscellaneous Test blood sugar three ivanan es daily 10/19/2014 11/18/2015 In active 250.0 Calcium RxNorm: 1 PO daily No Start Date Active aspirin 81 mg tablet RxNorm: 142015 1 Tablet(s) PO daily No Start Date Active doxazosin 2 mg tablet RxNorm: 549981 1 Tablet(s) PO QHS No Start Date Active Fish Oil oral RxNorm: 7382806 oral No Start Date Active multivitamin capsule RxNorm: 1 Capsule(s) PO daily No Start Date Active Humalog 100 unit/mL subcutaneous solution RxNorm: 893089 Unit(s) SQ No Start Date 05/10/2015 Inactive Zoloft 50 mg tablet RxNorm: 591749 1 Tablet(s) PO daily No Start Date 05/18/2015 Inactive gabapentin 100 mg ca psule RxNorm: 814528 1 Capsule(s) PO daily No Start Date 11/28/2014 Inactive metoprolol tartrate 50 mg tablet RxNorm: 595141 1 Tablet(s) PO TID No Start Date 04/27/2015 Inactive Benicar 40 mg tablet RxNorm: 009694 1 Tablet(s) PO daily No Start Date 02/19/2016 Inactive hydrochlorothiazide 25 mg tablet RxNorm: 034979 1 Tablet(s) PO daily No Start Date 01/03/2015 Inactive Lantus 100 unit/mL s ubcutaneous solution RxNorm: 662802 13 Unit(s) SQ No Start Date 04/27/2015 Inactive Zocor 40 mg tablet RxNorm: 474366 1 Tablet(s) PO daily No Start Date 10/15/2016 Inactive Medication Administered Medication Codes Instruc tions Start Date Status Kenalog 40 mg/mL suspension for injection RxNorm: 9279455 1Milliliter 06/14/2017 N o longer Active Kenalog 40 mg/mL suspension for injection RxNorm: 3133310 1Milliliter 03/26/2017 N o longer Active ceftriaxone 500 mg solution for injection RxNorm: 1859252 01/16/2017 No longer A ctive Kenalog 40 mg/mL suspension for injection RxNorm: 5813727 1Milliliter 09/27/2016 N o longer Active ceftriaxone 500 mg solution for injection RxNorm: 6569951 1Milliliter 09/27/2016 N o longer Active Kenalog 40 mg/mL suspension for injection RxNorm: 5121923 1Milliliter 07/09/2016 N o longer Active ceftriaxone 500 mg solution for injection RxNorm: 1192384 07/09/2016 No longer A ctive Immunizations Vaccine [...] Item Item Code Result Date Comp Metabolic Eyw958 NA 137 mEq/L 04/28/2018 Comp Metabolic Ycx614 K 4.1 mEq/L 04/28/2018 Comp Metabolic Jox054 CL 101 mEq/L 04/28/2018 Comp Metabolic Vbl866 CO2 28.0 mEq/L 04/28/2018 Comp Metabolic Vqk455 AN ION GAP 12 04/28/2018 Comp Metabolic Npo177 GL UCOSE 195 mg/dL 04/28/2018 Comp Metabolic Jiz863 Cr eat 0.7 mg/dL 04/28/2018 Comp Metabolic Fym274 eG FR 81 ml/min/1.73m2 04/28 Comp Metabolic Kgf763 BUN 24 mg/dL 04/28/2018 Comp Metabolic Uyv368 B/ C Ratio 33.3 Ratio 04/28/2018 Comp Metabolic Kjo428 CA LCIUM 9.4 mg/dL 04/28/2018 Comp Metabolic Yyb285 AL K PHOS 72 U/L 04/28/2018 Comp Metabolic Ork745 T(SGOT) 15 U/L 04/28/2018 Comp Metabolic Fro663 AL T(SGPT) 11 U/L 04/28/2018 Comp Metabolic Iuy151 BI LI T 0.6 mg/dL 04/28/2018 Comp Metabolic Jpi386 AL BUMIN 4.0 g/dL 04/28/2018 Comp Metabolic Yqo165 TP RO 6.1 g/dL 04/28/2018 Comp Metabolic Vgb353 GL OB 2.1 g/dL 04/28/2018 Comp Metabolic Gcg224 A/ G Ratio 2.0 Ratio 04/28/2018 Comp Metabolic Kfv128 Os mo 283 mOsmo 04/28/2018 %Hba1C Tbp042 % HbA1c 65266-0 7.5 % 04/28/2018 %Hba1C Sik354 Gluc Ave 169 mg/dL 04/28/2018 %Hba1C Tjm291 % HbA1c 14913-6 7.1 % 12/25/2017 %Hba1C Ezi132 Gluc Ave 157 mg/dL 12/25/2017 Comp Metabolic Tmp340 NA 139 mEq/L 12/25/2017 Comp Metabolic Gfz326 K 4.1 mEq/L 12/25/2017 Comp Metabolic Smp663 CL 104 mEq/L 12/25/2017 Comp Metabolic Sut420 CO2 28.0 mEq/L 12/25/2017 Comp Metabolic Xkc324 AN ION GAP 11 12/25/2017 Comp Metabolic Mlm550 GL UCOSE 129 mg/dL 12/25/2017 Comp Metabolic Qex425 Cr eat 0.7 mg/dL 12/25/2017 Comp Metabolic Yth859 eG FR 83 ml/min/1.73m2 12/25 Comp Metabolic Wxp753 BUN 22 mg/dL 12/25/2017 Comp Metabolic Pbv808 B/ C Ratio 31.0 Ratio 12/25/2017 Comp Metabolic Ixi580 CA LCIUM 9.4 mg/dL 12/25/2017 Comp Metabolic Qeu438 AL K PHOS 70 U/L 12/25/2017 Comp Metabolic Foi975 T(SGOT) 16 U/L 12/25/2017 Comp Metabolic Akg038 AL T(SGPT) 12 U/L 12/25/2017 Comp Metabolic Bxg097 BI LI T 0.5 mg/dL 12/25/2017 Comp Metabolic Wuz597 AL BUMIN 4.2 g/dL 12/25/2017 Comp Metabolic Uxo540 TP RO 6.1 g/dL 12/25/2017 Comp Metabolic Xku463 GL OB 1.9 g/dL 12/25/2017 Comp Metabolic Tfb415 A/ G Ratio 2.1 Ratio 12/25/2017 Comp Metabolic Dmc362 Os mo 283 mOsmo 12/25/2017 %Hba1C Yzg446 % HbA1c 99177-7 8.0 % 05/13/2017 %Hba1C Vhn462 Gluc Ave 183 mg/dL 05/13/2017 Comp Metabolic Umh235 NA 135 mEq/L 05/13/2017 Comp Metabolic Hky187 K 3.8 mEq/L 05/13/2017 Comp Metabolic Dac728 CL 99 mEq/L 05/13/2017 Comp Metabolic Qqz536 CO2 29.0 mEq/L 05/13/2017 Comp Metabolic Kfs438 AN ION GAP 11 05/13/2017 Comp Metabolic Adq706 GL UCOSE 155 mg/dL 05/13/2017 Comp Metabolic Scb908 Cr eat 0.7 mg/dL 05/13/2017 Comp Metabolic Ozd498 eG FR 90 ml/min/1.73m2 05/13 Comp Metabolic Gtw901 BUN 18 mg/dL 05/13/2017 Comp Metabolic Kra284 B/ C Ratio 27.3 Ratio 05/13/2017 Comp Metabolic Hsc880 CA LCIUM 8.9 mg/dL 05/13/2017 Comp Metabolic Rzu676 AL K PHOS 90 U/L 05/13/2017 Comp Metabolic Tnm036 T(SGOT) 18 U/L 05/13/2017 Comp Metabolic Pcr636 AL T(SGPT) 15 U/L 05/13/2017 Comp Metabolic Lhf487 BI LI T 0.5 mg/dL 05/13/2017 Comp Metabolic Ofh787 AL BUMIN 4.0 g/dL 05/13/2017 Comp Metabolic Mum664 TP RO 5.9 g/dL 05/13/2017 Comp Metabolic Vnd794 GL OB 1.9 g/dL 05/13/2017 Comp Metabolic Xlo347 A/ G Ratio 2.1 Ratio 05/13/2017 Comp Metabolic Xjn818 Os mo 275 mOsmo 05/13/2017 Urine Culture Ucult Prel iminary NO Growth Day 1 01/18 Urine Culture Ucult Comp lete NO Growth Day 2 01/18 Free T4 Bke399 FREE T4 1.13 ng/dL 10/09/2016 Tsh Ord6 [...] 31.5 pg 10/08/2016 Cbc With Differential Ord2 Miner% 4.0 % 10/08/2016 Cbc With Differential Ord2 [...] 0.96 K/ul 10/08/2016 Cbc With Differential Ord2 Miner ABS# 0.4 K/ul 10/08/2016 Cbc With Differential Ord2 Eos ABS# 0.0 K/ul 10/08/2016 Cbc With Differential Ord2 Baso ABS# 0.0 K/ul 10/08/2016 Comp Metabolic Wtt482 NA 135 mEq/L 10/08/2016 Comp Metabolic Dby355 K 4.3 mEq/L 10/08/2016 Comp Metabolic Xxh546 CL 98 mEq/L 10/08/2016 Comp Metabolic Scj432 CO2 22.0 mEq/L 10/08/2016 Comp Metabolic Por476 AN ION GAP 19 10/08/2016 Comp Metabolic Srz408 GL UCOSE 400 mg/dL 10/08/2016 Comp Metabolic Obh865 Cr eat 0.7 mg/dL 10/08/2016 Comp Metabolic Pcb613 eG FR 79 ml/min/1.73m2 10/08 Comp Metabolic Was777 BUN 27 mg/dL 10/08/2016 Comp Metabolic Byi780 B/ C Ratio 36.5 Ratio 10/08/2016 Comp Metabolic Mdh200 CA LCIUM 9.1 mg/dL 10/08/2016 Comp Metabolic Cqm935 AL K PHOS 65 U/L 10/08/2016 Comp Metabolic Jea086 T(SGOT) 28 U/L 10/08/2016 Comp Metabolic Jna974 AL T(SGPT) 24 U/L 10/08/2016 Comp Metabolic Jbg880 BI LI T 0.7 mg/dL 10/08/2016 Comp Metabolic Tbz017 AL BUMIN 3.8 g/dL 10/08/2016 Comp Metabolic Pth087 TP RO 6.0 g/dL 10/08/2016 Comp Metabolic Jwu797 GL OB 2.2 g/dL 10/08/2016 Comp Metabolic Xkr393 A/ G Ratio 1.7 Ratio 10/08/2016 Comp Metabolic Cct477 Os mo 292 mOsmo 10/08/2016 %Hba1C Uju287 % HbA1c 98886-3 7.0 % 10/08/2016 %Hba1C Clx424 Gluc Ave 154 mg/dL 10/08/2016 Microalbumin Olu642 Micr oAlb <0.7 mg/dL 10/08/2016 Lipid Ord30 [...] OK? TNP:Duplicate Order 04/03/2016 C A/B FLU 8888102 Influe nza A Scr Negative 04/03/2016 C A/B FLU 7374086 Influe nza B Scr Negative 04/03/2016 Comp Metabolic Cnz747 NA 138 mEq/L 09/15/2015 Comp Metabolic Eqq114 K 4.4 mEq/L 09/15/2015 Comp Metabolic Vxd971 CL 103 mEq/L 09/15/2015 Comp Metabolic Teu295 CO2 29.0 mEq/L 09/15/2015 Comp Metabolic Zdk023 AN ION GAP 10 09/15/2015 Comp Metabolic Som854 GL UCOSE 156 mg/dL 09/15/2015 Comp Metabolic Vgv164 Cr eat 0.7 mg/dL 09/15/2015 Comp Metabolic Hin067 eG FR 79 ml/min/1.73m2 09/14 Comp Metabolic Ard345 BUN 23 mg/dL 09/15/2015 Comp Metabolic Yig903 B/ C Ratio 31.1 Ratio 09/15/2015 Comp Metabolic Nvs602 CA LCIUM 9.1 mg/dL 09/15/2015 Comp Metabolic Llr471 AL K PHOS 58 U/L 09/15/2015 Comp Metabolic Gvl709 T(SGOT) 19 U/L 09/15/2015 Comp Metabolic Jqu926 AL T(SGPT) 11 U/L 09/15/2015 Comp Metabolic Qmp281 BI LI T 0.6 mg/dL 09/15/2015 Comp Metabolic Fty762 AL BUMIN 3.9 g/dL 09/15/2015 Comp Metabolic Lpc410 TP RO 5.8 g/dL 09/15/2015 Comp Metabolic Diy242 GL OB 1.9 g/dL 09/15/2015 Comp Metabolic Ydw860 A/ G Ratio 2.1 Ratio 09/15/2015 Comp Metabolic Nex174 Os mo 283 mOsmo 09/15/2015 Cbc With [...] 30.5 pg 09/15/2015 Cbc With Differential Ord2 Miner% 10.2 % 09/15/2015 Cbc With Differential Ord2 [...] 0.86 K/ul 09/15/2015 Cbc With Differential Ord2 Miner ABS# 0.5 K/ul 09/15/2015 Cbc With Differential Ord2 Eos ABS# 0.1 K/ul 09/15/2015 Cbc With Differential Ord2 Baso ABS# 0.0 K/ul 09/15/2015 Tsh Ord6 hTSH II 0.76 uIU/mL 09/15/2015 Lipid Ord30 CHOL 139 mg/dL 09/15/2015 Lipid Ord30 HDL 57.0 mg/dl 09/15/2015 Lipid Ord30 TRIG 76 mg/dL 09/15/2015 Lipid Ord30 LDL 67 mg/dL 09/15/2015 Lipid Ord30 C/HDL 2.4 Ratio 09/15/2015 %Hba1C Ugd135 % HbA1c 22793-7 6.6 % 09/15/2015 %Hba1C Rrh720 Gluc Ave 143 mg/dL 09/15/2015 Tsh Ord6 hTSH II 0.68 uIU/mL 06/02/2015 %Hba1C Cfe279 % HbA1c 53630-0 6.5 % 06/02/2015 %Hba1C Gsw026 Gluc Ave 140 mg/dL 06/02/2015 Comp Metabolic Ryt828 NA 139 mEq/L 06/02/2015 Comp Metabolic Twu615 K 4.5 mEq/L 06/02/2015 Comp Metabolic Lfr564 CL 104 mEq/L 06/02/2015 Comp Metabolic Grk021 CO2 25.0 mEq/L 06/02/2015 Comp Metabolic Uvk331 AN ION GAP 15 06/02/2015 Comp Metabolic Qqk820 GL UCOSE 123 mg/dL 06/02/2015 Comp Metabolic Dws570 Cr eat 0.7 mg/dL 06/02/2015 Comp Metabolic Ehp509 eG FR 92 ml/min/1.73m2 06/01 Comp Metabolic Xsa650 BUN 21 mg/dL 06/02/2015 Comp Metabolic Llx337 B/ C Ratio 32.3 Ratio 06/02/2015 Comp Metabolic Vwo450 CA LCIUM 9.5 mg/dL 06/02/2015 Comp Metabolic Aua916 AL K PHOS 66 U/L 06/02/2015 Comp Metabolic Xvm625 T(SGOT) 19 U/L 06/02/2015 Comp Metabolic Jyy513 AL T(SGPT) 13 U/L 06/02/2015 Comp Metabolic Vpa537 BI LI T 0.5 mg/dL 06/02/2015 Comp Metabolic Unk988 AL BUMIN 4.0 g/dL 06/02/2015 Comp Metabolic Djm408 TP RO 6.3 g/dL 06/02/2015 Comp Metabolic Vuj584 GL OB 2.3 g/dL 06/02/2015 Comp Metabolic Ffv342 A/ G Ratio 1.7 Ratio 06/02/2015 Comp Metabolic Qed149 Os mo 282 mOsmo 06/02/2015 %Hba1C Rtc762 % HbA1c 23414-1 6.7 % 02/17/2015 %Hba1C Fng269 Gluc Ave 146 mg/dL 02/17/2015 Comp Metabolic Mrq728 NA 133 mEq/L 02/17/2015 Comp Metabolic Oje671 K 4.3 mEq/L 02/17/2015 Comp Metabolic Spt428 CL 99 mEq/L 02/17/2015 Comp Metabolic Kor524 CO2 27.0 mEq/L 02/17/2015 Comp Metabolic Jmu497 AN ION GAP 11 02/17/2015 Comp Metabolic Wsm228 GL UCOSE 239 mg/dL 02/17/2015 Comp Metabolic Cao270 Cr eat 0.7 mg/dL 02/17/2015 Comp Metabolic Gti404 eG FR 79 ml/min/1.73m2 02/17 Comp Metabolic Edc225 BUN 24 mg/dL 02/17/2015 Comp Metabolic Mvf461 B/ C Ratio 32.4 Ratio 02/17/2015 Comp Metabolic Jmt516 CA LCIUM 9.1 mg/dL 02/17/2015 Comp Metabolic Get142 AL K PHOS 75 U/L 02/17/2015 Comp Metabolic Vap669 T(SGOT) 18 U/L 02/17/2015 Comp Metabolic Xaf551 AL T(SGPT) 11 U/L 02/17/2015 Comp Metabolic Vfj712 BI LI T 0.6 mg/dL 02/17/2015 Comp Metabolic Ykb277 AL BUMIN 4.2 g/dL 02/17/2015 Comp Metabolic Jkg104 TP RO 6.2 g/dL 02/17/2015 Comp Metabolic Bog470 GL OB 2.0 g/dL 02/17/2015 Comp Metabolic Nlo007 A/ G Ratio 2.1 Ratio 02/17/2015 Comp Metabolic Meb178 Os mo 278 mOsmo 02/17/2015 %Hba1C Ahk238 % HbA1c 72093-9 6.7 % 11/15/2014 %Hba1C Xxe311 Gluc Ave 146 mg/dL 11/15/2014 Comp Metabolic Uub014 NA 134 mEq/L 11/15/2014 Comp Metabolic Eir155 K 4.5 mEq/L 11/15/2014 Comp Metabolic Rjp838 CL 101 mEq/L 11/15/2014 Comp Metabolic Ysr115 CO2 27.0 mEq/L 11/15/2014 Comp Metabolic Xbj499 AN ION GAP 11 11/15/2014 Comp Metabolic Ehj781 GL UCOSE 293 mg/dL 11/15/2014 Comp Metabolic Idb888 Cr eat 0.7 mg/dL 11/15/2014 Comp Metabolic Gtl535 eG FR 87 ml/min/1.73m2 11/15 Comp Metabolic Mws381 BUN 20 mg/dL 11/15/2014 Comp Metabolic Uvc767 B/ C Ratio 29.4 Ratio 11/15/2014 Comp Metabolic Fqe855 CA LCIUM 9.0 mg/dL 11/15/2014 Comp Metabolic Tec046 AL K PHOS 67 U/L 11/15/2014 Comp Metabolic Kka084 T(SGOT) 17 U/L 11/15/2014 Comp Metabolic Fer277 AL T(SGPT) 10 U/L 11/15/2014 Comp Metabolic Lap496 BI LI T 0.6 mg/dL 11/15/2014 Comp Metabolic Jgk352 AL BUMIN 4.0 g/dL 11/15/2014 Comp Metabolic Zqd495 TP RO 6.0 g/dL 11/15/2014 Comp Metabolic Esa868 GL OB 2.0 g/dL 11/15/2014 Comp Metabolic Mlw564 A/ G Ratio 2.0 Ratio 11/15/2014 Comp Metabolic Rxc957 Os mo 282 mOsmo 11/15/2014 Review of [...] clear 04/28/2018 None Full Exam - General 1995 Ears/Nose/Throat lips/teeth/gingiva Overall: benign lips 04/28/2018 None Full Exam - General 1994 Ears/Nose/Throat lips/teeth/gingiva Overall: normal dentition 04/28/2018 None Full Exam - General 1994 Ears/Nose/Throat oral cavity/pharynx/larynx Overall: oral mucosa clear 04/28/2018 None Full Exam - General 1995 Ears/Nose/Throat [...] lips 09/09/2017 None Full Exam - General 1995 Ears/Nose/Throat lips/teeth/gingiva Overall: normal dentition 09/09/2017 None [...] GLUC MONITOR CONT PH YS I&R CPT-4: 77692 09/16/2017 GLUCOSE MONITORING CONT CPT-4: 34050 07/16/2017 TRIAMCINOLONE ACET I [place] NOS CPT-4: J3301 06/14/2017 DRAIN/INJECT JOINT/B URSA CPT-4: 15494 03/26/2017 TRIAMCINOLONE ACET I [place] NOS CPT-4: J3301 03/26/2017 URINALYSIS NONAUTO W /O SCOPE CPT-4: 73683 01/16/2017 THER/PROPH/DIAG INJ SC/IM CPT-4: 21737 01/16/2017 ROCEPHIN, PER 250 MG CPT-4: J0696 01/16/2017 DESTRUCT PREMALG LESION CPT-4: 49184 10/16/2016 TRIAMCINOLONE ACET I [place] NOS CPT-4: J3301 09/27/2016 ROCEPHIN, PER 250 MG CPT-4: J0696 09/27/2016 PPPS, SUBSEQ VISIT CPT- 4: G0439 07/10/2016 THER/PROPH/DIAG INJ SC/IM CPT-4: 53194 07/09/2016 TRIAMCINOLONE ACET I [place] NOS CPT-4: J3301 07/09/2016 ROCEPHIN, PER 250 MG CPT-4: J0696 07/09/2016 ADMIN PNEUMOCOCCAL V ACCINE SNOMED CT: [id number] CPT-4: G0009 02/15/2015 PNEUMOCOCCAL VACC 13 LIMA IM Formatting Model/CDA Sections, Assigned to SNOMED CT: 27999154 CPT-4: 75210Cgjowyt 02/15/2015 ADMIN INFLUENZA VIRU S VAC CPT-4: G0008 12/10/2014 FLU VACC 4 LIMA 3 YRS PLUS IM Formatting Model/CDA Sections, Assigned to SNOMED CT: [id number] CPT-4: 38622Lhfaeel 12/10/2014 Vital Signs Date Vital 04/28/2018 Blood Pressure 1: 110/58 Code: 8480-6 BMI: 24.0 Code: 59201-1 Heart Rate 1: 56 bpm Height: 5'2" Respiratory Rate: 18 bpm SpO2: 98% Weight: 131 lbs 12/25/2017 Blood Pressure 1: 140/52 Code: 8480-6 BMI: 24.0 Code: 77791-3 Heart Rate 1: 64 bpm Height: 5'2" Respiratory Rate: 18 bpm SpO2: 96% Weight: 131 lbs 11/22/2017 Blood Pressure 1: 128/54 Code: 8480-6 BMI: 23.4 Code: 82112-3 Heart Rate 1: 62 bpm Height: 5'2" SpO2: 97% Weight: 128 lbs 10/07/2017 Blood Pressure 1: 148/68 Code: 8480-6 BMI: 23.2 Code: 41204-7 Heart Rate 1: 68 bpm Height: 5'2" SpO2: 98% Weight: 127 lbs 09/16/2017 Blood Pressure 1: 134/80 Code: 8480-6 BMI: 22.5 Code: 26763-4 Heart Rate 1: 86 bpm Height: 5'2" SpO2: 98% Weight: 123 lbs 09/09/2017 Blood Pressure 1: 150/66 Code: 8480-6 Blood Pressure 1: 138/72 Code: 8480-6 BMI: 22.9 Code: 93925-6 Heart Rate 1: 81 bpm Height: 5'2" SpO2: 98% Weight: 125 lbs 07/16/2017 Blood Pressure 1: 144/68 Code: 8480-6 BMI: 21.9 Code: 63388-0 Heart Rate 1: 73 bpm Height: 5'2" SpO2: 98% Weight: 120 lbs 06/14/2017 Blood Pressure 1: 132/64 Code: 8480-6 BMI: 22.3 Code: 88241-8 Heart Rate 1: 77 bpm Height: 5'2" SpO2: 98% Temperature: 37.0 (C ) / 98.6 (F) Weight: 122 lbs 06/10/2017 Blood Pressure 1: 134/64 Code: 8480-6 BMI: 22.5 Code: 02607-3 Heart Rate 1: 78 bpm Height: 5'2" SpO2: 95% Weight: 123 lbs 05/13/2017 Blood Pressure 1: 140/66 Code: 8480-6 BMI: 21.6 Code: 59757-0 Heart Rate 1: 80 bpm Height: 5'2" SpO2: 98% Weight: 118 lbs 03/26/2017 Blood Pressure 1: 150/78 Code: 8480-6 BMI: 23.2 Code: 03555-9 Heart Rate 1: 73 bpm Height: 5'2" SpO2: 99% Weight: 127 lbs 02/19/2017 Blood Pressure 1: 126/64 Code: 8480-6 BMI: 22.9 Code: 13719-4 Heart Rate 1: 74 bpm Height: 5'2" SpO2: 99% Weight: 125 lbs 01/16/2017 Blood Pressure 1: 136/68 Code: 8480-6 Heart Rate 1: 97 bpm Height: 5'2" Respiratory Rate: 16 bpm Temperature: 37.5 (C ) / 99.5 (F) Weight: 01/08/2017 Blood Pressure 1: 144/60 Code: 8480-6 BMI: 23.0 Code: 06037-9 Heart Rate 1: 71 bpm Height: 5'2" SpO2: 96% Weight: 126 lbs 11/21/2016 Blood Pressure 1: 150/62 Code: 8480-6 BMI: 23.2 Code: 08486-4 Heart Rate 1: 73 bpm Height: 5'2" SpO2: 94% Weight: 127 lbs 10/16/2016 Blood Pressure 1: 142/82 Code: 8480-6 BMI: 22.9 Code: 88163-7 Heart Rate 1: 80 bpm Height: 5'2" SpO2: 96% Weight: 125 lbs 10/08/2016 Blood Pressure 1: 150/72 Code: 8480-6 Heart Rate 1: 65 bpm Height: 5'2" SpO2: 98% 10/01/2016 Blood Pressure 1: 152/76 Code: 8480-6 Heart Rate 1: 69 bpm Height: 5'2" SpO2: 97% 09/27/2016 Blood Pressure 1: 122/64 Code: 8480-6 BMI: 23.3 Code: 69397-0 Heart Rate 1: 80 bpm Height: 5'2" SpO2: 98% Weight: 127 lbs 8 oz 07/19/2016 Blood Pressure 1: 118/68 Code: 8480-6 BMI: 23.0 Code: 55442-0 Heart Rate 1: 62 bpm Height: 5'2" SpO2: 97% Weight: 126 lbs 07/10/2016 Blood Pressure 1: 132/64 Code: 8480-6 BMI: 23.4 Code: 01733-7 Heart Rate 1: 82 bpm Height: 5'2" SpO2: 98% Waist Measure (cm): 76 cm Weight: 128 lbs 07/09/2016 Blood Pressure 1: 132/64 Code: 8480-6 BMI: 23.4 Code: 55486-0 Heart Rate 1: 82 bpm Height: 5'2" SpO2: 98% Temperature: 37.2 (C ) / 98.9 (F) Weight: 128 lbs 06/06/2016 Blood Pressure 1: 144/66 Code: 8480-6 BMI: 23.4 Code: 38704-7 Heart Rate 1: 77 bpm Height: 5'2" SpO2: 97% Weight: 128 lbs 04/03/2016 Blood Pressure 1: 164/70 Code: 8480-6 BMI: 24.5 Code: 32079-1 Heart Rate 1: 80 bpm Height: 5'2" SpO2: 98% Weight: 134 lbs 12/26/2015 Blood Pressure 1: 130/72 Code: 8480-6 BMI: 24.1 Code: 90302-0 Heart Rate 1: 63 bpm Height: 5'2" SpO2: 98% Weight: 132 lbs 09/19/2015 Blood Pressure 1: 140/68 Code: 8480-6 BMI: 24.2 Code: 56283-7 Heart Rate 1: 96 bpm Height: 5'2" SpO2: 98% Weight: 132 lbs 8 oz 07/19/2015 Blood Pressure 1: 128/64 Code: 8480-6 BMI: 24.2 Code: 09147-6 Heart Rate 1: 66 bpm Height: 5'2" SpO2: 98% Weight: 132 lbs 8 oz 03/22/2015 Blood Pressure 1: 128/60 Code: 8480-6 BMI: 24.0 Code: 97388-0 Heart Rate 1: 57 bpm Height: 5'2" SpO2: 98% Weight: 131 lbs 02/15/2015 Blood Pressure 1: 132/56 Code: 8480-6 BMI: 23.8 Code: 91290-6 Heart Rate 1: 70 bpm Height: 5'2" SpO2: 98% Weight: 130 lbs 11/15/2014 Blood Pressure 1: 120/78 Code: 8480-6 BMI: 24.1 Code: 02812-9 Heart Rate 1: 79 bpm Height: 5'2" SpO2: 98% Weight: 132 lbs 08/13/2014 Blood Pressure 1: 140/60 Code: 8480-6 BMI: 24.0 Code: 41680-4 Heart Rate 1: 74 bpm Height: 5'2" [...] medication 07/16/2017 None cough Location in the ro 06/14/2017 None cough Quality constant 06/14/2017 None [...] Encounters Encounter Performer Loca tion Codes Date () [id number] EST. P ATIENT, LEVEL IV Diagnosis: Essential (primary) hypertension[ICD10: I10] Diagnosis: Type 2 diabetes mellitus with hyperglycemia[ICD10: E11.65] Diagnosis: Trigger finger, right middle finger[ICD10: M65.331] Dominique Recinos MD, C CPT-4: 61630 04/28/2018 ([id number]) 32880 EST. P ATIENT, LEVEL IV Diagnosis: Type 2 diabetes mellitus with hyperglycemia[ICD10: E11.65] Diagnosis: Essential (primary) hypertension[ICD10: I10] Diagnosis: Localized edema[ICD10: R60.0] Dominique Recinos MD, [facility] CPT-4: 46589 12/25/2017 ([id number] 95929 EST. P ATIENT, LEVEL IV Diagnosis: Diverticulitis of large intestine without perforation or abscess without bleeding[ICD10: K57.32] Diagnosis: Nausea[ICD10: R11.0] Maile Recinos MD, [facility] CPT-4: 53064 11/22/2017 ([id number]) Miscellaneou s no charge Diagnosis: Laceration without foreign body of right forearm, subsequent encounter[ICD10: S51.811D] Dominique Recinos MD, [facility] CPT-4: 62443 10/16/2017 ([id number]) Miscellaneou s no charge Diagnosis: Laceration without foreign body of right forearm, subsequent encounter[ICD10: S51.811D] Dominique Recinos MD, [facility] CPT-4: 50483 10/14/2017 ([id number]) Miscellaneou s no charge Diagnosis: Laceration without foreign body of right forearm, subsequent encounter[ICD10: S51.811D] Dominique Recinos MD, [facility] CPT-4: 54028 10/09/2017 ([id number]) 17295 EST. P ATIENT, LEVEL III Diagnosis: Type 2 diabetes mellitus with hyperglycemia[ICD10: E11.65] Dominique Recinos MD, [facility] CPT-4: 52346 10/07/2017 ([id number]) 78693 EST. P ATIENT, LEVEL III Diagnosis: Type 2 diabetes mellitus with hyperglycemia[ICD10: E11.65] Fatmata Recinos MD, [facility] CPT-4: 04000 09/16/2017 ([id number]) 48058 EST. P ATIENT, LEVEL III Diagnosis: Essential (primary) hypertension[ICD10: I10] Dominique Recinos MD, C CPT-4: 98800 09/09/2017 ([id number]) Miscellaneou s no charge Diagnosis: Type 1 diabetes mellitus without complications[ICD10: E10.9] Fatmata Recinos MD, [facility] CPT-4: 68913 07/22/2017 ([id number]) 59016 EST. P ATIENT, LEVEL IV Diagnosis: Type 1 diabetes mellitus without complications[ICD10: E10.9] Diagnosis: Mixed hyperlipidemia[ICD10: E78.2] Diagnosis: Essential (primary) hypertension[ICD10: I10] Dominique Recinos MD, C CPT-4: 88942 07/16/2017 ([id number]) 83491 EST. P ATIENT, LEVEL III Diagnosis: Cough[ICD10: R05] Diagnosis: Acute recurrent maxillary sinusitis[ICD10: J01.01] Maile Recinos MD, [facility] CPT-4: 23961 06/14/2017 ([id number]) 82616 EST. P ATIENT, LEVEL IV Diagnosis: Type 1 diabetes mellitus without complications[ICD10: E10.9] Diagnosis: Essential (primary) hypertension[ICD10: I10] Dominique Recinos MD, C CPT-4: 97736 06/10/2017 ([id number]) 95391 EST. P ATIENT, LEVEL IV Diagnosis: Essential (primary) hypertension[ICD10: I10] Diagnosis: Type 1 diabetes mellitus without complications[ICD10: E10.9] Dominqiue Recinos MD, [facility] CPT-4: 44496 05/13/2017 16556 EST. PATIENT, LEVEL III Diagnosis: Sciatica, right side[ICD10: M54.31] Diagnosis: Low back pain[ICD10: M54.5] Fatmata Recinos MD, [facility] CPT-4: 79538 03/26/2017 ([id number]) 47637 EST. P ATIENT, LEVEL III Diagnosis: Type 1 diabetes mellitus without complications[ICD10: E10.9] Diagnosis: Essential (primary) hypertension[ICD10: I10] Dominique Recinos MD, C CPT-4: 06674 02/19/2017 ([id number]) 55931 EST. P ATIENT, LEVEL IV Diagnosis: Fever presenting with conditions classified elsewhere[ICD10: R50.81] Diagnosis: Weakness[ICD10: R53.1] Diagnosis: Frequency of micturition[ICD10: R35.0] Diagnosis: Type 1 diabetes mellitus without complications[ICD10: E10.9] Dominique Recinos MD, [facility] CPT-4: 30707 01/16/2017 ([id number]) 62437 EST. P ATIENT, LEVEL IV Diagnosis: Type 1 diabetes mellitus without complications[ICD10: E10.9] Diagnosis: Essential (primary) hypertension[ICD10: I10] Dominique Recinos MD, [facility] CPT-4: 36643 01/08/2017 ([id number]) 01447 EST. P ATIENT, LEVEL IV Diagnosis: Essential (primary) hypertension[ICD10: I10] Diagnosis: Type 1 diabetes mellitus without complications[ICD10: E10.9] Dominique Recinos MD, [facility] CPT-4: 97495 11/21/2016 ([id number]) 15694 EST. 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 P ATIENT, LEVEL III Diagnosis: Chronic obstructive pulmonary disease with (acute) exacerbation[ICD10: J44.1] Diagnosis: Cough[ICD10: R05] Maile Recinos MD, [facility] CPT-4: 05535 10/08/2016 ([id number]) Miscellaneou s no charge Diagnosis: Cough[ICD10: R05] Diagnosis: Chronic obstructive pulmonary disease with (acute) exacerbation[ICD10: J44.1] Maile Recinos MD, [facility] CPT-4: 08708 10/01/2016 ([id number]) 38408 EST. P ATIENT, LEVEL III Diagnosis: Cough[ICD10: R05] Diagnosis: Acute bronchitis, unspecified[ICD10: J20.9] Maile Recinos MD, [facility] CPT-4: 22390 09/27/2016 ([id number]) 99117 EST. P ATIENT, LEVEL III Diagnosis: Type 1 diabetes mellitus without complications[ICD10: E10.9] Dominique Recinos MD, [facility] CPT-4: 81823 07/19/2016 ([id number]) 58697 EST. P ATIENT, LEVEL IV Diagnosis: Essential (primary) hypertension[ICD10: I10] Diagnosis: Type 1 diabetes mellitus without complications[ICD10: E10.9] Diagnosis: Other allergic rhinitis[ICD10: J30.89] Diagnosis: Acute laryngopharyngitis[ICD10: J06.0] Dominique Recinos MD, [facility] CPT-4: 09204 07/09/2016 ([id number]) 22084 EST. P ATIENT, LEVEL IV Diagnosis: Essential (primary) hypertension[ICD10: I10] Diagnosis: Type 1 diabetes mellitus without complications[ICD10: E10.9] Diagnosis: Mixed hyperlipidemia[ICD10: E78.2] Dominique Recinos MD, [facility] CPT- 4: 12629 06/06/2016 13665 EST. PATIENT, LEVEL III Diagnosis: Other allergic rhinitis[ICD10: J30.89] Diagnosis: Acute laryngopharyngitis[ICD10: J06.0] Fatmata Recinos MD, [facility] CPT-4: 81786 04/03/2016 ([id number]) 45927 EST. P ATIENT, LEVEL IV Diagnosis: Type 1 diabetes mellitus without complications[ICD10: E10.9] Diagnosis: Essential (primary) hypertension[ICD10: I10] Diagnosis: Pain in right hand[ICD10: M79.641] Dominique Recinos MD, [facility] CPT- 4: 08335 12/26/2015 ([id number]) 07260 EST. P ATIENT, LEVEL IV Diagnosis: Type 1 diabetes mellitus without complications[ICD10: E10.9] Diagnosis: Essential (primary) hypertension[ICD10: I10] Dominique Recinos MD, [facility] CPT-4: 08387 09/19/2015 ([id number]) 39016 EST. P ATIENT, LEVEL IV Diagnosis: Essential (primary) hypertension[ICD10: I10] Diagnosis: Mixed hyperlipidemia[ICD10: E78.2] Diagnosis: Type 1 diabetes mellitus without complications[ICD10: E10.9] Dominique Recinos MD, [facility] CPT-4: 83353 07/19/2015 ([id number]) 39138 EST. P ATIENT, LEVEL IV Diagnosis: Other specified dorsopathies, lumbar region[ICD10: M53.86] Diagnosis: Urge incontinence[ICD10: N39.41] Diagnosis: Type 1 diabetes mellitus without complications[ICD10: E10.9] Dominique Recinos MD, [facility] CPT-4: 10081 03/22/2015 ([id number]) 31232 EST. P ATIENT, LEVEL IV Diagnosis: Essential (primary) hypertension[ICD10: I10] Diagnosis: Other specified dorsopathies, lumbar region[ICD10: M53.86] Diagnosis: Other chronic pain[ICD10: G89.29] Dominique Recinos MD, [facility] CPT-4: 54775 02/15/2015 ([id number]) 03004 EST. P ATIENT, LEVEL IV Diagnosis: ESSENTIAL HYPERTENSION[ICD9: 401.9] Diagnosis: DIABETES TYPE II[ICD9: 250.00] Diagnosis: FALL FROM LADDER[ICD9: E881.0] Diagnosis: Right hip pain[ICD9: 719.45] Diagnosis: Left hand pain[ICD9: 729.5] Diagnosis: Sacroiliac joint pain[ICD9: 724.6] Dominique Recinos MD, [facility] CPT- 4: 64129 11/15/2014 ([id number]) [facility]IS[facility] , NEW - LEVEL 4 Diagnosis: DIABETES TYPE II[ICD9: 250.00] Diagnosis: ESSENTIAL HYPERTENSION[ICD9: 401.9] Diagnosis: HYPERLIPIDEMIA[ICD9: 272.4] [facility] CPT-4: 12873 08/13/2014 Plan of Care Planned Activity Notes C odes Status Date Visit Plan: Hypertension - well con trolawrenceed [...] less controlled. 04/28/2018 Appointment: Dominique Recinos WPtel: [facility] (15 min) Moderate 04/28/2018 Patient Education: Patient [...] seated. 12/25/2017 Appointment: Dominique Recinos WPtel: [phone] [facility] (15 min) Moderate 12/25/2017 Patient Education: Patient Medication Summary Completed 12/25/2017 Patient Education: Diabetes Completed 12/25/2017 Appointment: Dominique Recinos WPtel: [facility] (15 min) Moderate 12/09/2017 Visit Plan: Diverticulitis - rx for antibiotic sent to pt's pharmacy - pt advised to avoid seeds, nuts, popcorn, or any other food which has been proven to upset the pt's stomach. 11/22/2017 Appointment: [facility] Randolph [phone] [place] (15 min) Moderate 11/22/2017 Patient Education: [...] glucose. 10/07/2017 [facility]ment: [phone] [facility] [place] (15 min) Moderate 10/07/2017 Patient [...] 09/16/2017 Visit Plan: Diabetes Mellitus - I fanta booker recommended for the patient to have follow [...] control. 09/16/2017 Appointment: Fatmata Spann WPtel: [phone] [facility] (15 min) Moderate 09/16/2017 Patient Education: Patient [...] home. 09/09/2017 Appointment: [phone] [facility] [place] (15 min) Moderate 09/09/2017 Patient Education: Patient Medication Summary Completed 09/09/2017 Appointment: Maile Randolph WPtel: [phone] [phone] [place] (15 min) Moderate 09/06/2017 Appointment: Domin[facility] Recinos [facility]Ptel[phone] [facility] [place] (15 min) Moderate 09/05/2017 Appointment: Fatmata Spann [facility]el[phone] [facility] [place] (15 min) Moderate 07/22/2017 Patient Education: [...] less controlled. ipro placed today - by PARANORMAL INVESTIGATOR - pt to RTC on Saturday for [...] 07/16/2017 Visit Plan: Diabetes Mellitus - con trolawrenceed - per recent FSBS reports. I have [...] less controlled. ipro placed today - by PARANORMAL INVESTIGATOR - pt to RTC on Saturday for [...] to medications. 07/16/2017 Appointment: Dominique Recinos WPtel: [address] [place], [place] [address] [place] (15 min) Moderate 07/16/2017 Patient Education: Patient Medication Summary Completed 07/16/2017 Visit Plan: Sinusitis - Pt has acut e infection - pain in face, maxillary region, Pt informed to use decongestant, RX given to patient, sinus rinses also recommended. Call if symptoms do not show improvement. 06/14/2017 Appointment: Maile Randolph WPtel: [phone] [phone] [place] (30 min) Complex 06/14/2017 Patient Education: [...] home. 06/10/2017 Appointment: Dominique Recinos WPtel: [phone] [facility] (15 min) Moderate 06/10/2017 Patient Education: Patient Medication Summary Completed 06/10/2017 Appointment: Fatmata Spann WPtel: [facility] (30 min) Complex 06/03/2017 Visit Plan: Hypertension [...] controlled. 05/13/2017 Appointment: Domin[facility] Recinos [facility]Ptel[phone] [facility] [place] (15 min) Moderate 05/13/2017 Patient Education: Patient Medication Summary Completed 05/13/2017 Appointment: Domin[facility] Recinos [facility]Ptel[phone] [facility] [place] (30 min) Complex 05/03/2017 Appointment: Fatmata Spann [facility]Ptel: [phone] [facility] [place] (15 min) Moderate 04/12/2017 Appointment: Dominique Recinos WPtel: [phone] [facility] [place] (15 min) Moderate 04/11/2017 Appointment: Dominique Recinos WPtel: [phone] [facility] [place] (15 min) Moderate 04/10/2017 Appointment: [facility]inos [phone] [facility] [place] (15 min) Moderate 04/02/2017 Visit [...] injection. 03/26/2017 Appointment: Fatmata Spann WPtel: [phone] [facility] [place] (30 min) Complex 03/26/2017 Appointment: Dominique Recinos [facility]Ptel[phone] [facility] (15 min) Moderate 03/26/2017 Patient Education: Patient [...] at home. 02/19/2017 Appointment: Dominique Recinos WPtel: [facility] (15 min) Moderate 02/19/2017 Patient Education: Patient Medication Summary Completed 02/19/2017 Patient Education: Hypertension Completed 02/19/2017 Appointment: Dominique Recinos WPtel: [facility] (15 min) Moderate 02/12/2017 Visit Plan: [...] above 100F. 01/16/2017 Appointment: Dominique Recinos WPtel: [phone] [facility] (15 min) Moderate 01/16/2017 Patient Education: Patient [...] at home. 01/08/2017 Appointment: Dominique Recinos WPtel: [facility] (15 min) Moderate 01/08/2017 Patient Education: Patient Medication Summary Completed 01/08/2017 Patient Education: Hypertension Completed 01/08/2017 Appointment: Dominique Recinos WPtel: [phone] [facility] (15 min) Moderate 12/31/2016 Appointment: Dominique Recinos WPtel: [facility] (15 min) Moderate 12/18/2016 Visit Plan: Hypertension [...] controlled. 11/21/2016 Appointment: Dominique Recinos [facility]Ptel[phone] [facility] [place] (15 min) Moderate 11/21/2016 Patient [...] potatoes, creamy coleslaw, etc. -- referral to thoracic medicine specialist. Hyperlipidemia - pt has been [...] until healed 10/16/2016 Appointment: Dominique Recinos WPtel: [facility] (15 min) Moderate 10/16/2016 Patient Education: Patient Medication Summary Completed 10/16/2016 Patient Education: Hypertension Completed 10/16/2016 Patient Education: Patient Medication Summary Completed 10/09/2016 Care Plan: Free T4 Pending 10/09/2016 Visit Plan: COPD exacerbation-cough -symptoms resolved-call if symptoms return-monitor blood sugars closely for the next few days and discussed diet. 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 10/01/2016 Appointment: Maile Randolph WPtel: [phone] [place] (30 min) Complex 10/01/2016 Patient Education: Patient Medication Summary Completed 10/01/2016 Visit Plan: Bronchitis - acute case of bronchitis identified. Pt has been given antibiotics, breathing treatments as appropriate, and pt has been instructed to call if symptoms are not improved, or if symptoms acutely worsen. 09/27/2016 Appointment: Maile Randolph WPtel: [phone] [phone] (30 min) Complex 09/27/2016 Patient Education: [...] controlled. 07/19/2016 Appointment: Dominique Recinos WPtel: [phone] [facility] (15 min) Moderate 07/19/2016 Patient Education: Patient [...] surrogate. 07/10/2016 Appointment: Fatmata Spann WPtel: [phone] [facility] [facility] - Annual Wellness Visit 07/10/2016 [...] improving 07/09/2016 Appointment: Dominique Recinos WPtel: [phone] [facility] (15 min) Moderate 07/09/2016 Patient Education: Patient Medication Summary Completed 07/09/2016 Patient Education: Hypertension Completed 07/09/2016 Appointment: Dominique Recinos WPtel: [phone] [facility] (15 min) Moderate 06/26/2016 Visit Plan: Hypertension [...] me dications. 06/06/2016 Appointment: Dominique Recinos WPtel: [phone] [facility] (15 min) Moderate 06/06/2016 Patient Education: Patient Medication Summary Completed 06/06/2016 Appointment: Dominique Recinos WPtel: [address] [facility] (15 min) Moderate 04/30/2016 Visit Plan: URI [...] allergy spray. 04/03/2016 Appointment: Fatmata Spann WPtel: [phone] [facility] (30 min) Complex 04/03/2016 Patient Education: Patient [...] Completed 12/26/2015 Appointment: Domin[facility] Recinos [facility]Ptel[phone] (15 min) Moderate 12/19/2015 Visit Plan: [...] home. 09/19/2015 Appointment: Dominique Recinos [facility]Ptel[phone] [facility] (15 min) Moderate 09/19/2015 Patient Education: [...] dications. 07/19/2015 Appointment: Dominique Recinos [facility]Ptel: [phone] [facility] (15 min) Moderate 07/19/2015 Patient Education: [...] enzyme q10. Back pain - referral to [facility] physical therapy for further eval and treat. 03/22/2015 Appointment: Dominique Recinos WPtel: [phone] [facility] (15 min) Moderate 03/22/2015 Patient Education: Patient Medication Summary Completed 03/22/2015 Care Plan: Referral Order SNOMED-CT : [id number] Ordered 03/22/2015 Visit Plan: Hypertension - well [...] 11/15/2014 Visit Plan: Diabetes Mellitus - con alice [...] me dications. 08/13/2014 Appointment: Dominique Recinos WPtel: [address] [place], [place] [address] [place] ([place]) New Patient 08/13/2014 Patient Education: Patient Medication Summary Completed 08/13/2014 Patient Education: Hypertension Completed 08/13/2014 Referral: External, Ordering Provider Referral Appointment Requested Instructions Comment rocephin and kenalog . Bronchitis - acute [...] reviewed with the patient today in clinic. FLAGYL 500MG THREE T IMES DAILY X 10 DAYS CIPRO TWICE DAILY X 10 DAYS CONTINUE PROBIOTIC AVOID SEEDS, NUTS, POPCORN . Diverticulitis - rx for antibiotic sen t to pt's pharmacy - pt advised to avoid seeds, nuts, popcorn, or any other food which has been proven to upset the pt's stomach. . Hypertension - wel l controlled - [...] pain occurs at the site of injection. increase lantus to 1 7 units daily [...] in blood pressure readings at home. decrease Lantus to 7 units in the [...] at home, call if consistently above 100F. . URI - Pt advised t o [...] to allow for greater blood glucose control. two old goats - from [employer] and home . Hypertension - well controlled [...] change in blood pressure readings at home. Go back to taking yo ur benicar [...] are starting to become less controlled. . COPD exacerbation- cough-symptoms resolved-call if symptoms return-monitor blood sugars closely for the next few days and discussed diet. decrease the zocor t o 20mg daily [...] potatoes, creamy coleslaw, etc. -- referral to thoracic medicine specialist. Hyperlipidemia - pt has been [...] to assure normal liver response to medications. get TIGER BALM - ove r the [...] change in blood pressure readings at home. wait at least 2 hour s after [...] eaten before checking your blood glucose. . Hypertension - wel l controlled - [...] is stable, monitor for acute changes. . Diabetes Mellitus - controlled - per [...] less controlled. ipro placed today - by PARANORMAL INVESTIGATOR - pt to RTC on Saturday for [...] less controlled. ipro placed today - by PARANORMAL INVESTIGATOR - pt to RTC on Saturday for [...] q10. Back pain - referral to [facility] physical therapy for further eval and treat. [...]
--- OUTSIDE RECORDS SUMMARY | 2019-06-14 17:02 | XMS REPORT | CCD ---
Author Author Twila Recinos Organization [facility] Address [address] [place] [address] Phone Care Team Providers Care Chinchilla Farmer Name Role Phone PP Unavailable CCM Unavailable Summary Purpose Interface Exchange Insurance Providers Payer name Policy type / Coverage type Covered republican ID Effective Begin Date Effective End Date WPS Medicare Part B Medicare Part B [id number] Unknown Unknown [facility] ica Part B [id number] Unknown Unk nown Family history Mother Diagnosis Age At Onset No Family Disease Entered N/A Father Diagnosis Age At Onset Heart Attack Unknown Diabetes Unknown Social History Social History Element Codes Description Effective Dates Marital status Unknown [place] in 201606/06/[address]: 395379138 Never smoker 08/13/[address]: 994442531 Never drinks alcohol 08/13/2014 Allergies, Adverse Reactions, Alerts Allergies, Adverse Reactions, Alerts data not found Past Medical History Illness Codes Condition Status Onset Date Resolved Date Type 1 diabetes kristy itus without complications ICD-9: 250.00 ICD-10: E10.9 Active 08/12/2014 Unknown Encounter for genera l adult medical examination with abnormal findings ICD-9: V70.0 ICD-10: Z00.01 Active 07/10/2016 Unknown Acute laryngopharyng itis ICD-9: 465.0 ICD-10: J06.0 Active 04/03/2016 Unknown Essential (primary) hypertension ICD-9: 401.9 ICD-10: I10 Active 08/12/2014 Unknown Other allergic rhinitis ICD-9: 477.8 ICD-10: J30.89 Active 04/03/2016 Unknown Mixed hyperlipidemia ICD-9: 272.4 ICD-10: E78.2 Active 08/12/2014 Unknown Fever, unspecified ICD- 9: 780.60 ICD-10: R50.9 Active 04/03/2016 Unknown Encounter for screen ing [...] Condition Codes Effectiv e Dates Condition Status Type 1 diabetes kristy itus without complications ICD-9: 250.00 ICD-10: E10.9 08/12/2014 Active Encounter for genera l adult medical examination with abnormal findings ICD-9: V70.0 ICD-10: Z00.01 07/10/2016 Active Acute laryngopharyng itis ICD-9: 465.0 ICD-10: J06.0 04/03/2016 Active Essential (primary) hypertension ICD-9: 401.9 ICD-10: I10 08/12/2014 Active Other allergic rhinitis ICD-9: 477.8 ICD-10: J30.89 04/03/2016 Active Mixed hyperlipidemia ICD-9: 272.4 ICD-10: E78.2 08/12/2014 Active Fever, unspecified ICD- 9: 780.60 ICD-10: R50.9 04/03/2016 Active Encounter for screen ing mammogram [...] Date Stop Date Sta tus Fill Instructions metoprolol tartrate 50 mg tablet RxNorm: 332633 TAKE ONE TABLET BY [facility] TWICE A DAY 08/02/2016 07/27/2017 Ac tive Novolog 100 unit/mL subcutaneous solution RxNorm: 678273 10 Unit(s) SQ TID adj ust as needed for glucose control 07/19/2016 02/13/2017 Active Humalog 100 unit/mL subcutaneous solution RxNorm: 718743 INJECT 10 UNITS UNDER THE SKIN BEFORE EACH MEAL 07/16/2016 07/16/2016 Inactive Kenalog 40 mg/mL fanny pension for injection RxNorm: 0760427 1 Milliliter(s) Inj 07/09/2016 07/09/2016 In active ceftriaxone 500 mg s olution for injection RxNorm: 7404088 Inj 07/09/2016 07/09/2016 Inactive Lantus 100 unit/mL s ubcutaneous solution RxNorm: 766776 Unit(s) INJECT 13 UNI TS UNDER THE SKIN IN THE MORNING 06/06/2016 No Stop Date Active Zoloft 50 mg tablet RxNorm: 995493 TAKE ONE TABLET BY MOUTH DAILY 04/27/2016 07/25/2016 In active Lantus 100 unit/mL s ubcutaneous solution RxNorm: 746170 INJECT 20 UNITS UNDER THE SKIN AT BEDTIME 04/27/2016 06/05/2016 Inactive amoxicillin 500 mg c apsule RxNorm: 866891 1 Capsule(s) PO TID 04/03/2016 04/12/2016 Inactive Zyrtec 10 mg tablet RxNorm: 9804509 1 Tablet(s) PO daily 04/03/2016 05/02/2016 Inactive hydrochlorothiazide 12.5 mg capsule RxNorm: 335429 TAKE ONE CAPSULE BY M OUTH DAILY 03/12/2016 12/06/2016 Ac tive Benicar 40 mg tablet RxNorm: 077221 1 Tablet(s) PO daily 02/28/2016 04/27/2016 Inactive Benicar 40 mg tablet RxNorm: 149439 1 Tablet(s) PO daily 02/20/2016 02/27/2016 Inactive gabapentin 100 mg ca psule RxNorm: 853335 TAKE ONE CAPSULE BY M OUTH THREE TIMES A DAY 01/09/2016 04/16/2016 Inactive metoprolol tartrate 50 mg tablet RxNorm: 124221 TAKE ONE TABLET BY MO UTH TWICE A DAY 01/09/2016 04/07/2016 Inactive Lantus 100 unit/mL s ubcutaneous solution RxNorm: 697290 13 Unit(s) SQ QAM 07/19/2015 No Stop Date Active Humalog 100 unit/mL subcutaneous solution RxNorm: 178952 5-10 Unit(s) SQ AC 07/19/2015 07/18/2016 In active Lantus 100 unit/mL s ubcutaneous solution RxNorm: 130091 20 Unit(s) SQ QHS 07/14/2015 07/18/2015 In active Zoloft 50 mg tablet RxNorm: 700175 1 Tablet(s) PO daily 05/19/2015 09/15/2015 Inactive Humalog 100 unit/mL subcutaneous solution RxNorm: 979270 10 Unit(s) SQ AC 05/11/2015 07/18/2015 In active metoprolol tartrate 50 mg tablet RxNorm: 586403 1 Tablet(s) PO BID 04/28/2015 08/25/2015 Inactive Lantus 100 unit/mL s ubcutaneous solution RxNorm: 259673 20 Unit(s) SQ QHS 04/28/2015 07/13/2015 In active Vesicare 10 mg tablet RxNorm: 871466 1 Tablet(s) PO QPM 03/22/2015 09/18/2015 Inactive hydrochlorothiazide 12.5 mg capsule RxNorm: 235572 1 Tablet(s) PO daily 01/04/2015 12/29/2015 In active gabapentin 100 mg ca psule RxNorm: 819930 1 Capsule(s) PO TID 11/29/2014 03/28/2015 Inactive [...] Date Active aspirin 81 mg tablet RxNorm: 194382 1 Tablet(s) PO daily No Start Date Active Fish Oil oral RxNorm: 7961357 oral No Start Date Active multivitamin capsule RxNorm: 1 Capsule(s) PO daily No Start Date Active Zocor 40 mg tablet RxNorm: 188105 1 Tablet(s) PO daily No Start Date Active Humalog 100 unit/mL subcutaneous solution RxNorm: 489221 Unit(s) SQ No Start Date 05/10/2015 Inactive Zoloft 50 mg tablet RxNorm: 223089 1 Tablet(s) PO daily No Start Date 05/18/2015 Inactive gabapentin 100 mg ca psule RxNorm: 051328 1 Capsule(s) PO daily No Start Date 11/28/2014 Inactive metoprolol tartrate 50 mg tablet RxNorm: 428337 1 Tablet(s) PO TID No Start Date 04/27/2015 Inactive Benicar 40 mg tablet RxNorm: 283640 1 Tablet(s) PO daily No Start Date 02/19/2016 Inactive hydrochlorothiazide 25 mg tablet RxNorm: 736763 1 Tablet(s) PO daily No Start Date 01/03/2015 Inactive Lantus 100 unit/mL s ubcutaneous solution RxNorm: 285667 13 Unit(s) SQ No Start Date 04/27/2015 Inactive Medication Administered Medication Codes Instruc tions Start Date Status Kenalog 40 mg/mL suspension for injection RxNorm: 6621759 1Milliliter 07/09/2016 N o longer Active ceftriaxone 500 mg solution for injection RxNorm: 5111666 07/09/2016 No longer A ctive Immunizations Vaccine Codes Date Status Pneumococcal (Adult) CVX: 133 02/15/2015 completed Influenza CVX: 141 12/10 completed Influenza CVX: 141 12/02 completed Pneumococcal CVX: 33 03/2013 completed Tetanus, Diptheria, Pertussis CVX: 113 12/02/2013 completed Tetanus/Diptheria CVX: 113 12/02/2013 completed Assessments Condition Codes Effectiv e Dates Type 1 diabetes mellitus without complications ICD-10: E10.9 ICD-9: 250.00 07/19/2016 Encounter for general adult medical exam ination with abnormal findings ICD-10: Z00.01 ICD-9: V70.0 07/10/2016 Acute laryngopharyngitis ICD-10: J06 .0 ICD-9: 465.0 07/09/2016 Essential (primary) hypertension ICD -10: I10 ICD-9: 401.9 07/09/2016 Other allergic rhinitis ICD-10: J30. 89 ICD-9: 477.8 07/09/2016 Mixed hyperlipidemia ICD-10: E78.2 ICD-9: 272.4 06/06/2016 Encounter for screening mammogram for ma lignant [...] Visit Reason For Visit Effective Dates Notes diabetes mellitus 07/19/2016 Annual Medicare Wellness Exam 07/10/2016 Hospital Follow Up 07/09/2016 hypertension 06/06/2016 diabetes mellitus 04/03/2016 back pain 12/26/2015 back pain 09/19/2015 back pain 07/19/2015 back pain 03/22/2015 back pain 02/15/2015 vaccination against influenza 12/10/2014 back pain 11/15/2014 back pain 08/13/2014 Results Observation Observation Code Item Item Code Result Date C A/B FLU 5361591 Influe nza A Scr Negative 04/03/2016 C A/B FLU 1548549 Influe nza B Scr Negative 04/03/2016 C A/B FLU Influenza A Scr TNP:Duplicate Order 0 04/03/2016 C A/B FLU Influenza B Scr TNP:Duplicate Order 0 04/03/2016 C A/B FLU IC OK? TNP:Duplicate Order 04/03/2016 Tsh Ord6 hTSH II 0.76 uIU/mL 09/15/2015 Lipid Ord30 CHOL 139 mg/dL 09/15/2015 Lipid Ord30 HDL 57.0 mg/dl 09/15/2015 Lipid Ord30 TRIG 76 mg/dL 09/15/2015 Lipid Ord30 LDL 67 mg/dL 09/15/2015 Lipid Ord30 C/HDL 2.4 Ratio 09/15/2015 Cbc With Differential Ord2 WBC 4.40 K/ul 09/15/2015 Cbc With Differential Ord2 RBC 3.84 M/ul 09/15/2015 Cbc With Differential Ord2 HGB 11.7 g/dl 09/15/2015 Cbc With Differential Ord2 Neut% 68.3 % 09/15/2015 Cbc With Differential Ord2 HCT 34.8 % 09/15/2015 Cbc With Differential Ord2 Lymph% 19.5 % 09/15/2015 Cbc With Differential Ord2 MCV 90.6 fl 09/15/2015 Cbc With Differential Ord2 [place]% 10.2 % 09/15/2015 Cbc With Differential Ord2 [...] 0.86 K/ul 09/15/2015 Cbc With Differential Ord2 [place] ABS# 0.5 K/ul 09/15/2015 Cbc With Differential Ord2 Eos ABS# 0.1 K/ul 09/15/2015 Cbc With Differential Ord2 Baso ABS# 0.0 K/ul 09/15/2015 Comp Metabolic Fvb127 NA 138 mEq/L 09/15/2015 Comp Metabolic Znn989 K 4.4 mEq/L 09/15/2015 Comp Metabolic Smu224 CL 103 mEq/L 09/15/2015 Comp Metabolic Ies842 CO2 29.0 mEq/L 09/15/2015 Comp Metabolic Kcd273 AN ION GAP 10 09/15/2015 Comp Metabolic Zsu059 GL UCOSE 156 mg/dL 09/15/2015 Comp Metabolic Vhf645 Cr eat 0.7 mg/dL 09/15/2015 Comp Metabolic Erd962 eG FR 79 ml/min/1.73m2 09/14 Comp Metabolic Ysp034 BUN 23 mg/dL 09/15/2015 Comp Metabolic Oft539 B/ C Ratio 31.1 Ratio 09/15/2015 Comp Metabolic Ryk085 CA LCIUM 9.1 mg/dL 09/15/2015 Comp Metabolic Vzy875 AL K PHOS 58 U/L 09/15/2015 Comp Metabolic Trh237 T(SGOT) 19 U/L 09/15/2015 Comp Metabolic Bwn096 AL T(SGPT) 11 U/L 09/15/2015 Comp Metabolic Sre852 BI LI T 0.6 mg/dL 09/15/2015 Comp Metabolic Uki614 AL BUMIN 3.9 g/dL 09/15/2015 Comp Metabolic Arq256 TP RO 5.8 g/dL 09/15/2015 Comp Metabolic Hxy294 GL OB 1.9 g/dL 09/15/2015 Comp Metabolic Hgn355 A/ G Ratio 2.1 Ratio 09/15/2015 Comp Metabolic Vkm465 Os mo 283 mOsmo 09/15/2015 %Hba1C Kfi249 % HbA1c 84184-7 6.6 % 09/15/2015 %Hba1C Fwh958 Gluc Ave 143 mg/dL 09/15/2015 Comp Metabolic Ggp827 NA 139 mEq/L 06/02/2015 Comp Metabolic Mhz678 K 4.5 mEq/L 06/02/2015 Comp Metabolic Vyn948 CL 104 mEq/L 06/02/2015 Comp Metabolic Jqv379 CO2 25.0 mEq/L 06/02/2015 Comp Metabolic Adp467 AN ION GAP 15 06/02/2015 Comp Metabolic Flv238 GL UCOSE 123 mg/dL 06/02/2015 Comp Metabolic Ydd278 Cr eat 0.7 mg/dL 06/02/2015 Comp Metabolic Mgi781 eG FR 92 ml/min/1.73m2 06/01 Comp Metabolic Ifb313 BUN 21 mg/dL 06/02/2015 Comp Metabolic Dms684 B/ C Ratio 32.3 Ratio 06/02/2015 Comp Metabolic Aif250 CA LCIUM 9.5 mg/dL 06/02/2015 Comp Metabolic Sfi896 AL K PHOS 66 U/L 06/02/2015 Comp Metabolic Sai468 T(SGOT) 19 U/L 06/02/2015 Comp Metabolic Zeq382 AL T(SGPT) 13 U/L 06/02/2015 Comp Metabolic Oli957 BI LI T 0.5 mg/dL 06/02/2015 Comp Metabolic Fny775 AL BUMIN 4.0 g/dL 06/02/2015 Comp Metabolic Uch757 TP RO 6.3 g/dL 06/02/2015 Comp Metabolic Kxx018 GL OB 2.3 g/dL 06/02/2015 Comp Metabolic Ksk129 A/ G Ratio 1.7 Ratio 06/02/2015 Comp Metabolic Qwl345 Os mo 282 mOsmo 06/02/2015 %Hba1C Jsa933 % HbA1c 42739-2 6.5 % 06/02/2015 %Hba1C Nwo655 Gluc Ave 140 mg/dL 06/02/2015 Tsh Ord6 hTSH II 0.68 uIU/mL 06/02/2015 %Hba1C Kxg222 % HbA1c 29449-2 6.7 % 02/17/2015 %Hba1C Aqw905 Gluc Ave 146 mg/dL 02/17/2015 Comp Metabolic Yyl389 NA 133 mEq/L 02/17/2015 Comp Metabolic Cmw553 K 4.3 mEq/L 02/17/2015 Comp Metabolic Ifo126 CL 99 mEq/L 02/17/2015 Comp Metabolic Tav487 CO2 27.0 mEq/L 02/17/2015 Comp Metabolic Qne010 AN ION GAP 11 02/17/2015 Comp Metabolic Soz880 GL UCOSE 239 mg/dL 02/17/2015 Comp Metabolic Ggv569 Cr eat 0.7 mg/dL 02/17/2015 Comp Metabolic Tee936 eG FR 79 ml/min/1.73m2 02/17 Comp Metabolic Wgj806 BUN 24 mg/dL 02/17/2015 Comp Metabolic Bdq216 B/ C Ratio 32.4 Ratio 02/17/2015 Comp Metabolic Tph906 CA LCIUM 9.1 mg/dL 02/17/2015 Comp Metabolic Pbw030 AL K PHOS 75 U/L 02/17/2015 Comp Metabolic Vgr542 T(SGOT) 18 U/L 02/17/2015 Comp Metabolic Tmg604 AL T(SGPT) 11 U/L 02/17/2015 Comp Metabolic Mbr997 BI LI T 0.6 mg/dL 02/17/2015 Comp Metabolic Hav608 AL BUMIN 4.2 g/dL 02/17/2015 Comp Metabolic Rbd956 TP RO 6.2 g/dL 02/17/2015 Comp Metabolic Iju196 GL OB 2.0 g/dL 02/17/2015 Comp Metabolic Shl683 A/ G Ratio 2.1 Ratio 02/17/2015 Comp Metabolic Ztg259 Os mo 278 mOsmo 02/17/2015 Comp Metabolic Mir952 NA 134 mEq/L 11/15/2014 Comp Metabolic Yhq607 K 4.5 mEq/L 11/15/2014 Comp Metabolic Fen904 CL 101 mEq/L 11/15/2014 Comp Metabolic Wth137 CO2 27.0 mEq/L 11/15/2014 Comp Metabolic Mfb066 AN ION GAP 11 11/15/2014 Comp Metabolic Lqv430 GL UCOSE 293 mg/dL 11/15/2014 Comp Metabolic Pwj546 Cr eat 0.7 mg/dL 11/15/2014 Comp Metabolic Yso226 eG FR 87 ml/min/1.73m2 11/15 Comp Metabolic Xwu750 BUN 20 mg/dL 11/15/2014 Comp Metabolic Azp790 B/ C Ratio 29.4 Ratio 11/15/2014 Comp Metabolic Sge587 CA LCIUM 9.0 mg/dL 11/15/2014 Comp Metabolic Uap908 AL K PHOS 67 U/L 11/15/2014 Comp Metabolic Bxa334 T(SGOT) 17 U/L 11/15/2014 Comp Metabolic Mqg802 AL T(SGPT) 10 U/L 11/15/2014 Comp Metabolic Xnc651 BI LI T 0.6 mg/dL 11/15/2014 Comp Metabolic Njg072 AL BUMIN 4.0 g/dL 11/15/2014 Comp Metabolic Fsa146 TP RO 6.0 g/dL 11/15/2014 Comp Metabolic Tsj079 GL OB 2.0 g/dL 11/15/2014 Comp Metabolic Gvz320 A/ G Ratio 2.0 Ratio 11/15/2014 Comp Metabolic Nqf316 Os mo 282 mOsmo 11/15/2014 %Hba1C Fcx055 % HbA1c 49389-6 6.7 % 11/15/2014 %Hba1C Ius009 Gluc Ave 146 mg/dL 11/15/2014 Review of Systems System Result Effective Dates Constitutional recent illness 07/19/2016 Constitutional No chills [...] affect 08/13/2014 None Procedures Procedure Codes Date PPPS, SUBSEQ VISIT CPT-4: R3438Xdmhglu 07/10/2016 THER/PROPH/DIAG INJ SC/IM CPT-4: 08003Dnxrhkf 07/09/2016 TRIAMCINOLONE ACET I [place] NOS CPT-4: N3964Fnmfiqm 07/09/2016 ROCEPHIN, PER 250 MG CPT-4: G8488Yzizrtt 07/09/2016 ADMIN PNEUMOCOCCAL V ACCINE SNOMED CT: 09044517 CPT-4: O4857Vqvjwvx 02/15/2015 PNEUMOCOCCAL VACC 13 LIMA IM Formatting Model/CDA Sections, Assigned to SNOMED CT: 48315939 CPT-4: 55294Xspybzn 02/15/2015 ADMIN INFLUENZA VIRU S VAC CPT-4: Q2100Ivxzrox 12/10/2014 FLU VACC 4 LIMA 3 YRS PLUS IM Formatting Model/CDA Sections, Assigned to SNOMED CT: 76319691 CPT-4: 32011Zqgiksk 12/10/2014 Vital Signs Date Vital 07/19/2016 Blood Pressure 1: 118/68 Code: 8480-6 BMI: 23.0 Code: 42260-5 Heart Rate 1: 62 bpm Height: 5'2" SpO2: 97% Weight: 126 lbs 07/10/2016 Blood Pressure 1: 132/64 Code: 8480-6 BMI: 23.4 Code: 12575-9 Heart Rate 1: 82 bpm Height: 5'2" SpO2: 98% Waist Measure (cm): 76 cm Weight: 128 lbs 07/09/2016 Blood Pressure 1: 132/64 Code: 8480-6 BMI: 23.4 Code: 13199-2 Heart Rate 1: 82 bpm Height: 5'2" SpO2: 98% Temperature: 37.2 (C ) / 98.9 (F) Weight: 128 lbs 06/06/2016 Blood Pressure 1: 144/66 Code: 8480-6 BMI: 23.4 Code: 93685-4 Heart Rate 1: 77 bpm Height: 5'2" SpO2: 97% Weight: 128 lbs 04/03/2016 Blood Pressure 1: 164/70 Code: 8480-6 BMI: 24.5 Code: 45747-2 Heart Rate 1: 80 bpm Height: 5'2" SpO2: 98% Weight: 134 lbs 12/26/2015 Blood Pressure 1: 130/72 Code: 8480-6 BMI: 24.1 Code: 54757-5 Heart Rate 1: 63 bpm Height: 5'2" SpO2: 98% Weight: 132 lbs 09/19/2015 Blood Pressure 1: 140/68 Code: 8480-6 BMI: 24.2 Code: 43182-9 Heart Rate 1: 96 bpm Height: 5'2" SpO2: 98% Weight: 132 lbs 8 oz 07/19/2015 Blood Pressure 1: 128/64 Code: 8480-6 BMI: 24.2 Code: 20213-9 Heart Rate 1: 66 bpm Height: 5'2" SpO2: 98% Weight: 132 lbs 8 oz 03/22/2015 Blood Pressure 1: 128/60 Code: 8480-6 BMI: 24.0 Code: 40881-1 Heart Rate 1: 57 bpm Height: 5'2" SpO2: 98% Weight: 131 lbs 02/15/2015 Blood Pressure 1: 132/56 Code: 8480-6 BMI: 23.8 Code: 40376-7 Heart Rate 1: 70 bpm Height: 5'2" SpO2: 98% Weight: 130 lbs 11/15/2014 Blood Pressure 1: 120/78 Code: 8480-6 BMI: 24.1 Code: 76870-2 Heart Rate 1: 79 bpm Height: 5'2" SpO2: 98% Weight: 132 lbs 08/13/2014 Blood Pressure 1: 140/60 Code: 8480-6 BMI: 24.0 Code: 33001-8 Heart Rate 1: 74 bpm Height: 5'2" Weight: 131 lbs Functional Status No Functional Status data History of Present Illness Symptom Name Status Resu lt Effective Date Notes hypertension Quality whitney twila hypertension 07/19/2016 None cough Quality intermitte nt [...] Encounters Encounter Performer Loca tion Codes Date ([id number]) [id number] EST. P ATIENT, LEVEL III Diagnosis: Type 1 diabetes mellitus without complications[ICD10: E10.9] [facility]ique [facility] MD, [facility] CPT-4: 68658 07/19/2016 ([id number]) 31898 EST. P ATIENT, LEVEL IV Diagnosis: Essential (primary) hypertension[ICD10: I10] Diagnosis: Type 1 diabetes mellitus without complications[ICD10: E10.9] Diagnosis: Other allergic rhinitis[ICD10: J30.89] Diagnosis: Acute laryngopharyngitis[ICD10: J06.0] Dominique Recinos MD, [facility] CPT-4: 23969 07/09/2016 ([id number]) 93532 EST. P ATIENT, LEVEL IV Diagnosis: Essential (primary) hypertension[ICD10: I10] Diagnosis: Type 1 diabetes mellitus without complications[ICD10: E10.9] Diagnosis: Mixed hyperlipidemia[ICD10: E78.2] Dominique Recinos MD, [facility] CPT- 4: 50554 06/06/2016 86487 EST. PATIENT, LEVEL III Diagnosis: Other allergic rhinitis[ICD10: J30.89] Diagnosis: Acute laryngopharyngitis[ICD10: J06.0] Fatmata Recinos MD, [facility] CPT-4: 08356 04/03/2016 ([id number]) 98913 EST. P ATIENT, LEVEL IV Diagnosis: Type 1 diabetes mellitus without complications[ICD10: E10.9] Diagnosis: Essential (primary) hypertension[ICD10: I10] Diagnosis: Pain in right hand[ICD10: M79.641] Dominique Recinos MD, [facility] CPT- 4: 85381 12/26/2015 ([id number]) 64760 EST. P ATIENT, LEVEL IV Diagnosis: Type 1 diabetes mellitus without complications[ICD10: E10.9] Diagnosis: Essential (primary) hypertension[ICD10: I10] Dominique Recinos MD, [facility] CPT-4: 83868 09/19/2015 ([id number]) 08816 EST. P ATIENT, LEVEL IV Diagnosis: Essential (primary) hypertension[ICD10: I10] Diagnosis: Mixed hyperlipidemia[ICD10: E78.2] Diagnosis: Type 1 diabetes mellitus without complications[ICD10: E10.9] Dominique Recinos MD, [facility] CPT-4: 15500 07/19/2015 ([id number]) 73286 EST. 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 P ATIENT, LEVEL IV Diagnosis: ESSENTIAL HYPERTENSION[ICD9: 401.9] Diagnosis: DIABETES TYPE II[ICD9: 250.00] Diagnosis: FALL FROM LADDER[ICD9: E881.0] Diagnosis: Right hip pain[ICD9: 719.45] Diagnosis: Left hand pain[ICD9: 729.5] Diagnosis: Sacroiliac joint pain[ICD9: 724.6] [facility] CPT- 4: 50241 11/15/2014 ([id number]) OFFICE VISI T, NEW - LEVEL 4 Diagnosis: DIABETES TYPE II[ICD9: 250.00] Diagnosis: ESSENTIAL HYPERTENSION[ICD9: 401.9] Diagnosis: HYPERLIPIDEMIA[ICD9: 272.4] [facility] CPT-4: 42982 08/13/2014 Plan of Care Planned Activity Notes C odes Status Date Visit Plan: Diabetes Mellitus - controll ed - per recent FSBS reports. I have [...] readings are starting to become less controlled. 2016 Appointment: [facility]inos [facility] (15 min) Moderate 07/19/2016 Patient Education: Patient Medication Summary Completed 07/19/2016 Visit Plan: Medicare Exam - today we dis cussed the patients past history, immunizations, preventative exams/evaluations [...] risk and to maintain independence in the home.Today we discussed the need for the patient to create paperwork for Advanced directives as well as for the patient to provide this office with a copy of her DOPA paperwork for health care surrogate. 2016 Appointment: Fatmata Spann WPtel: [facility]4 [facility] [facility] - Annual Wellness Visit 07/10/2016 Patient Education: Patient Medication Summary Completed 07/10/2016 Visit Plan: Hypertension - well controll ed - continue with current medications, continue with no added salt diet. Pt has been encouraged to exercise daily.The pt has been advised to call the office if there are any acute concerns about change in blood pressure readings at home.Diabetes Mellitus - controlled - per recent FSBS [...] glucose readings are starting to become less controlled.Pharyngitis - shots given today - call if not improving 2016 Appointment: Dominique Recinos WPtel: [facility] (15 min) Moderate 07/09/2016 Patient Education: Patient Medication Summary Completed 07/09/2016 Patient Education: Hypertension Completed 07/09/2016 Appointment: Dominique Recinos WPtel: [facility] (15 min) Moderate 06/26/2016 Visit Plan: Hypertension - well controll ed - continue with current medications, continue with no added salt diet. Pt has been encouraged to exercise daily.The pt has been advised to call the office if there are any acute concerns about change in blood pressure readings at home.Diabetes Mellitus - controlled - per recent FSBS [...] glucose readings are starting to become less controlled.Hyperlipidemia - pt has been counseled about appropriate [...] to medications. 06/06/2016 Appointment: Dominique Recinos WPtel: [address] [facility] (15 min) Moderate 06/06/2016 Patient Education: Patient Medication Summary Completed 06/06/2016 Appointment: Dominique Recinos WPtel: [address] [facility] (15 min) Moderate 04/30/2016 Visit Plan: URI - Pt advised to increase fluids, vitamin C. Discussed natural and expected course of this diagnosis and need to alert me if symptoms do not follow expected course, or if any worse. RX sent to patient's pharmacy.Allergies - chronic - recommended pt to use allergy medication as prescribed. Pt has been counseled as to the appropriate use of the medication. Pt to call if allergy symptoms are not controlled with the medication.If using nasal spray, instructions as follows: Nasal spray- use twice daily, one spray per nostril twice daily, after 30 minutes, rinse out nose with saline spray.. Use opposite hand per nostril to spray in the nasal steroid allergy spray. 04/03/2016 Appointment: Fatmata Spann WPtel: [address] [facility] (30 min) Complex 04/03/2016 Patient Education: Patient Medication Summary Completed 04/03/2016 Patient Education: Patient Medication Summary Completed 02/01/2016 Visit Plan: Hypertension - well controll ed - continue with current medications, continue with no added salt diet. Pt has been encouraged to exercise daily.The pt has been advised to call the office if there are any acute concerns about change in blood pressure readings at home.Diabetes Mellitus - controlled - per recent FSBS [...] glucose readings are starting to become less controlled.Right hand pain - monitor symptoms of pain - use Biofreeze or Aspercreme call if not improving. 12/26/2015 Patient Education: Patient Medication Summary Completed 12/26/2015 Patient Education: Hypertension Completed 12/26/2015 Appointment: [facility]el[facility] [address] [facility] (15 min) Moderate 12/19/2015 Visit Plan: Diabetes Mellitus - controll ed - per recent FSBS reports. I have [...] glucose readings are starting to become less controlled.Hypertension - well controlled - continue with current medications, continue with no added salt diet. Pt has been encouraged to exercise daily.The pt has been advised to call the office if there are any acute concerns about change in blood pressure readings at home. 09/19/2015 Appointment: Domin[facility] Recinos WPtel[facility] [address] [facility] (15 min) Moderate 09/19/2015 Patient Education: Patient Medication Summary Completed 09/19/2015 Visit Plan: Hypertension - well controll ed - continue with current medications, continue with no added salt diet. Pt has been encouraged to exercise daily.The pt has been advised to call the office if there are any acute concerns about change in blood pressure readings at home.Diabetes Mellitus - controlled - per recent FSBS [...] glucose readings are starting to become less controlled.Hyperlipidemia - pt has been counseled about appropriate [...] medications. 07/19/2015 Appointment: Dominique [facility]inos [facility]el[facility] [phone] [id number] (15 min) Moderate 07/19/2015 Patient Education: Patient Medication Summary Completed 07/19/2015 Referral: External, Ordering Provider Referral Completed 03/30/2015 Visit Plan: Diabetes Mellitus - controll ed - per recent FSBS reports. I have [...] glucose readings are starting to become less controlled.Hyperlipidemia - with muscle aches - recommended pt to start on co-enzyme q10.Back pain - referral to [facility] physical therapy for further eval and treat. 2015 Appointment: Dominique Recinos [facility]Ptel[facility] [phone] [id number] (15 min) Moderate 03/22/2015 Patient Education: Patient Medication Summary Completed 03/22/2015 Care Plan: Referral Order SNOMED-CT : [id number] Ordered 03/22/2015 Visit Plan: Hypertension - well controll ed - continue with current medications, continue with no added salt diet. Pt has been encouraged to exercise daily.The pt has been advised to call the office if there are any acute concerns about change in blood pressure readings at home.get TIGER BALM - over the counter - to RUB ON THE RIGHT LOWER BACK - do this at least three times daily get a BODY PILLOW and use this between your legs to keep your back from hurtingwhen sitting in a chair - get a BOLSTER pillow and put this behind your back when sitting in a chair or in the car for a long car ride. 02/15/2015 Patient Education: Patient Medication Summary Completed 02/15/2015 Patient Education: Hypertension Completed 02/15/2015 Appointment: Nurse Visit 12/10/2014 Patient Education: Patient Medication Summary Completed 12/10/2014 Visit Plan: Diabetes Mellitus - controll ed - per recent FSBS reports. I have [...] glucose readings are starting to become less controlled.Pt fell at home from a ladder - [...] diet. Pt has been encouraged to exercise daily.The pt has been advised to call the office if there are any acute concerns about change in blood pressure readings at home. 2014 Patient Education: Patient Medication Summary Completed 11/15/2014 Patient Education: Hypertension Completed 11/15/2014 Visit Plan: Diabetes Mellitus - controll ed - per recent FSBS reports. I have [...] glucose readings are starting to become less controlled.Hypertension - well controlled - continue with current medications, continue with no added salt diet. Pt has been encouraged to exercise daily.The pt has been advised to call the office if there are any acute concerns about change in blood pressure readings at home.Hyperlipidemia - pt has been counseled about appropriate [...] to medications. 08/13/2014 Appointment: Dominique Recinos WPtel: [id number] [place] New Patient 08/13/2014 Patient Education: Patient Medication Summary Completed 08/13/2014 Patient Education: Hypertension Completed 08/13/2014 Referral: External, Ordering Provider Referral Appointment Requested Instructions Comment . URI - Pt advised t o [...] in the nasal steroid allergy spray. . Hypertension - wel l controlled - [...] to assure normal liver response to medications. two old goats - from [employer] and home . Hypertension - well controlled [...] given today - call if not improving . Diabetes Mellitus - controlled - per [...] her DOPA paperwork for health care surrogate. juanacor can cause musc le aches - the [...]
--- OUTSIDE RECORDS SUMMARY | 2019-06-14 17:04 | XMS REPORT | CCD ---
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 ica Part B [id number] Un known Family history Mother Diagnosis Age At Onset No Family Disease Entered N/A Father Diagnosis Age At Onset Heart Attack Unknown Diabetes Unknown Social History Social History Element Codes Description Effective Dates Number of children Unknown 2 Sons, 5 grandchildren, 11 great grandchildren 01/08/2017 Marital status Unknown W crystal [place] in [address]606/06/[address]: 962311528 Never smoker 08/13/[address]: 531659447 Never drinks alcohol 08/13/2014 Allergies, Adverse Reactions, [...] Date Stop Date Sta tus Fill Instructions Zocor 20 mg tablet RxNorm: 113043 1 Tablet(s) PO daily 06/10/2018 06/04/2019 Active Benicar 40 mg tablet RxNorm: 010079 Tablet(s) TAKE ONE TABLET BY MOUTH DAILY 06/06/2018 06/25/2018 Ac tive metoprolol tartrate 50 mg tablet RxNorm: 691231 TAKE ONE TABLET BY MO UTH TWICE A DAY 05/19/2018 05/13/2019 Ac tive hydrochlorothiazide 12.5 mg capsule RxNorm: 541721 TAKE ONE CAPSULE BY M OUTH DAILY 05/19/2018 05/13/2019 Ac tive Atacand 32 mg tablet RxNorm: 293940 1 Tablet(s) PO daily 05/12/2018 05/11/2018 Inactive This is to replace benicar Atacand 32 mg tablet RxNorm: 871414 1 Tablet(s) PO daily 05/12/2018 06/05/2018 Inactive This is to replace benicar Benicar 40 mg tablet RxNorm: 056057 TAKE ONE TABLET BY MOUTH DAILY 05/07/2018 05/06/2018 In active Benicar 40 mg tablet RxNorm: 810013 Tablet(s) TAKE ONE TABLET BY MOUTH DAILY 05/07/2018 05/11/2018 In active Zoloft 50 mg tablet RxNorm: 729368 TAKE ONE TABLET BY MOUTH DAILY 04/28/2018 04/22/2019 Ac tive gabapentin 100 mg ca psule RxNorm: 441844 TAKE ONE CAPSULE BY M OUTH THREE TIMES A DAY 04/09/2018 07/16/2018 Ac tive Novolog U-100 Insuli n aspart 100 unit/mL subcutaneous solution RxNorm: 080871 SSI 5 units over 150 and for every additional 50 add 2 units Unit(s) SQ TID adjust as needed for glucose control 12/25/2017 07/22/2018 Active Cipro 500 mg tablet RxNorm: 717483 1 Tablet(s) PO BID 11/22/2017 12/01/2017 Inactive clotrimazole 1 % top ical cream RxNorm: 257378 1 Application TOP BID 11/22/2017 12/05/2017 Inactive Flagyl 500 mg tablet RxNorm: 363113 1 Tablet(s) PO TID 11/22/2017 12/01/2017 Inactive Lantus U-100 Insulin 100 unit/mL subcutaneous solution RxNorm: 348916 17 Unit(s) SQ QAM 11/11/2017 07/08/2018 Active Novolog U-100 Insuli n aspart 100 unit/mL subcutaneous solution RxNorm: 112238 SSI 5 units over 150 and for every additional 50 add 2 units Unit(s) SQ TID adjust as needed for glucose control 11/11/2017 12/24/2017 Inactive gabapentin 100 mg ca psule RxNorm: 852783 TAKE ONE CAPSULE BY M OUTH THREE TIMES A DAY 11/05/2017 02/11/2018 Inactive Kenalog 40 mg/mL fanny pension for injection RxNorm: 1321092 1 Milliliter(s) Inj 06/14/2017 06/14/2017 In active Flonase Allergy Reli ef 50 mcg/actuation nasal spray,suspension RxNorm: 8032813 2 [place] NASAL daily 06/14/2017 06/20/2017 Inactive doxycycline hyclate 100 mg tablet RxNorm: 648239 1 Tablet(s) PO BID 06/14/2017 06/20/2017 Inactive Lantus U-100 Insulin 100 unit/mL subcutaneous solution RxNorm: 216077 17 Unit(s) SQ QAM 06/10/2017 07/09/2017 Inactive gabapentin 100 mg ca psule RxNorm: 162148 TAKE ONE CAPSULE BY M OUTH THREE TIMES A DAY 05/23/2017 08/29/2017 Inactive Lantus U-100 Insulin 100 unit/mL subcutaneous solution RxNorm: 128436 15 Unit(s) SQ QAM 05/14/2017 06/09/2017 Inactive Novolog U-100 Insuli n aspart 100 unit/mL subcutaneous solution RxNorm: 678824 SSI 5 units over 150 and for every additional 50 add 2 units Unit(s) SQ TID adjust as needed for glucose control 04/24/2017 11/10/2017 Inactive Zocor 20 mg tablet RxNorm: 399712 1 Tablet(s) PO daily 04/05/2017 03/30/2018 Inactive Kenalog 40 mg/mL fanny pension for injection RxNorm: 4479670 1 Milliliter(s) Inj 03/26/2017 03/26/2017 In active Novolog 100 unit/mL subcutaneous solution RxNorm: 929767 SSI 5 units over 150 and for every additional 50 add 2 units Unit(s) SQ TID adjust as needed for glucose control 02/19/2017 04/23/2017 Inactive Lantus 100 unit/mL s ubcutaneous solution RxNorm: 215750 10 Unit(s) SQ QAM 02/19/2017 05/13/2017 In active ceftriaxone 500 mg s olution for injection RxNorm: 9800740 Inj 01/16/2017 01/16/2017 Inactive Lantus 100 unit/mL s ubcutaneous solution RxNorm: 816810 7 Unit(s) SQ QAM 01/16/2017 02/18/2017 In active Lantus 100 unit/mL s ubcutaneous solution RxNorm: 133952 10 Unit(s) SQ daily 01/08/2017 05/12/2017 In active gabapentin 100 mg ca psule RxNorm: 254093 TAKE ONE CAPSULE BY M OUTH THREE TIMES A DAY 11/30/2016 02/03/2017 Inactive Zoloft 50 mg tablet RxNorm: 390815 TAKE ONE TABLET BY MOUTH DAILY 10/30/2016 04/27/2017 In active Zocor 20 mg tablet RxNorm: 208081 1 Tablet(s) PO daily 10/16/2016 04/04/2017 Inactive stop the 40mg dose of zocor, start on 20 mg Lantus 100 unit/mL s ubcutaneous solution RxNorm: 082866 15 Unit(s) SQ daily 10/16/2016 01/07/2017 In active Novolog 100 unit/mL subcutaneous solution RxNorm: 988010 SSI 5 units over 150 and for every additional 50 add 2 units Unit(s) SQ TID adjust as needed for glucose control 10/16/2016 02/18/2017 Inactive prednisone 20 mg tablet RxNorm: 122044 1 Tablet(s) PO BID 10/01/2016 10/05/2016 Inactive Kenalog 40 mg/mL fanny pension for injection RxNorm: 5467362 1 Milliliter(s) Inj 09/27/2016 09/27/2016 In active Zithromax Z-Kishor 250 mg tablet RxNorm: 916592 1 Tablet(s) PO UD 09/27/2016 10/01/2016 Inactive ceftriaxone 500 mg s olution for injection RxNorm: 5918633 1 Milliliter(s) Inj 09/27/2016 09/27/2016 In active Augmentin 500 mg-125 mg tablet RxNorm: 944736 1 Tablet(s) PO BID 09/22/2016 09/26/2016 Inactive Tessalon Perles 100 mg capsule RxNorm: 695880 1 Capsule(s) PO Q8 CA N as needed 09/22/2016 04/27/2018 In active metoprolol tartrate 50 mg tablet RxNorm: 735649 TAKE ONE TABLET BY MO UTH TWICE A DAY 08/02/2016 07/27/2017 Inactive Novolog 100 unit/mL subcutaneous solution RxNorm: 493663 10 Unit(s) SQ TID adj ust as needed for glucose control 07/19/2016 10/15/2016 Inactive Humalog 100 unit/mL subcutaneous solution RxNorm: 911877 INJECT 10 UNITS UNDER THE SKIN BEFORE EACH MEAL 07/16/2016 07/16/2016 Inactive Kenalog 40 mg/mL fanny pension for injection RxNorm: 9010225 1 Milliliter(s) Inj 07/09/2016 07/09/2016 In active ceftriaxone 500 mg s olution for injection RxNorm: 1425573 Inj 07/09/2016 07/09/2016 Inactive Lantus 100 unit/mL s ubcutaneous solution RxNorm: 595522 Unit(s) INJECT 13 UNI TS UNDER THE SKIN IN THE MORNING 06/06/2016 10/15/2016 Inactive Zoloft 50 mg tablet RxNorm: 486195 TAKE ONE TABLET BY MOUTH DAILY 04/27/2016 07/25/2016 In active Lantus 100 unit/mL s ubcutaneous solution RxNorm: 208688 INJECT 20 UNITS UNDER THE SKIN AT BEDTIME 04/27/2016 06/05/2016 Inactive amoxicillin 500 mg c apsule RxNorm: 333776 1 Capsule(s) PO TID 04/03/2016 04/12/2016 Inactive Zyrtec 10 mg tablet RxNorm: 6877240 1 Tablet(s) PO daily 04/03/2016 05/02/2016 Inactive hydrochlorothiazide 12.5 mg capsule RxNorm: 605818 TAKE ONE CAPSULE BY M OUTH DAILY 03/12/2016 12/06/2016 In active Benicar 40 mg tablet RxNorm: 946013 1 Tablet(s) PO daily 02/28/2016 04/27/2016 Inactive Benicar 40 mg tablet RxNorm: 549250 1 Tablet(s) PO daily 02/20/2016 02/27/2016 Inactive gabapentin 100 mg ca psule RxNorm: 099507 TAKE ONE CAPSULE BY M OUT THREE TIMES A DAY 01/09/2016 04/16/2016 Inactive metoprolol tartrate 50 mg tablet RxNorm: 531798 TAKE ONE TABLET BY MO AZH TWICE A DAY 01/09/2016 04/07/2016 Inactive Humalog 100 unit/mL subcutaneous solution RxNorm: 952330 5-10 Unit(s) SQ AC 07/19/2015 07/18/2016 In active Lantus 100 unit/mL s ubcutaneous solution RxNorm: 901521 13 Unit(s) SQ QAM 07/19/2015 01/15/2017 In active Lantus 100 unit/mL s ubcutaneous solution RxNorm: 533517 20 Unit(s) SQ QHS 07/14/2015 07/18/2015 In active Zoloft 50 mg tablet RxNorm: 648104 1 Tablet(s) PO daily 05/19/2015 09/15/2015 Inactive Humalog 100 unit/mL subcutaneous solution RxNorm: 653397 10 Unit(s) SQ AC 05/11/2015 07/18/2015 In active metoprolol tartrate 50 mg tablet RxNorm: 956762 1 Tablet(s) PO BID 04/28/2015 08/25/2015 Inactive Lantus 100 unit/mL s ubcutaneous solution RxNorm: 603011 20 Unit(s) SQ QHS 04/28/2015 07/13/2015 In active Vesicare 10 mg tablet RxNorm: 060763 1 Tablet(s) PO QPM 03/22/2015 09/18/2015 Inactive hydrochlorothiazide 12.5 mg capsule RxNorm: 334238 1 Tablet(s) PO daily 01/04/2015 12/29/2015 In active gabapentin 100 mg ca psule RxNorm: 894372 1 Capsule(s) PO TID 11/29/2014 03/28/2015 Inactive [...] Date Active aspirin 81 mg tablet RxNorm: 237532 1 Tablet(s) PO daily No Start Date Active doxazosin 2 mg tablet RxNorm: 620776 1 Tablet(s) PO QHS No Start Date Active Fish Oil oral RxNorm: 8391149 oral No Start Date Active multivitamin capsule RxNorm: 1 Capsule(s) PO daily No Start Date Active Humalog 100 unit/mL subcutaneous solution RxNorm: 366318 Unit(s) SQ No Start Date 05/10/2015 Inactive Zoloft 50 mg tablet RxNorm: 254140 1 Tablet(s) PO daily No Start Date 05/18/2015 Inactive gabapentin 100 mg ca psule RxNorm: 309001 1 Capsule(s) PO daily No Start Date 11/28/2014 Inactive metoprolol tartrate 50 mg tablet RxNorm: 500004 1 Tablet(s) PO TID No Start Date 04/27/2015 Inactive Benicar 40 mg tablet RxNorm: 846929 1 Tablet(s) PO daily No Start Date 02/19/2016 Inactive hydrochlorothiazide 25 mg tablet RxNorm: 688723 1 Tablet(s) PO daily No Start Date 01/03/2015 Inactive Lantus 100 unit/mL s ubcutaneous solution RxNorm: 527976 13 Unit(s) SQ No Start Date 04/27/2015 Inactive Zocor 40 mg tablet RxNorm: 447094 1 Tablet(s) PO daily No Start Date 10/15/2016 Inactive Medication Administered Medication Codes Instruc tions Start Date Status Kenalog 40 mg/mL suspension for injection RxNorm: 2324537 1Milliliter 06/14/2017 N o longer Active Kenalog 40 mg/mL suspension for injection RxNorm: 1891328 1Milliliter 03/26/2017 N o longer Active ceftriaxone 500 mg solution for injection RxNorm: 8965692 01/16/2017 No longer A ctive Kenalog 40 mg/mL suspension for injection RxNorm: 4486045 1Milliliter 09/27/2016 N o longer Active ceftriaxone 500 mg solution for injection RxNorm: 6693619 1Milliliter 09/27/2016 N o longer Active Kenalog 40 mg/mL suspension for injection RxNorm: 7953239 1Milliliter 07/09/2016 N o longer Active ceftriaxone 500 mg solution for injection RxNorm: 6593964 07/09/2016 No longer A ctive Immunizations Vaccine [...] Item Item Code Result Date Comp Metabolic Tsq449 NA 137 mEq/L 04/28/2018 Comp Metabolic Nbo440 K 4.1 mEq/L 04/28/2018 Comp Metabolic Vxu608 CL 101 mEq/L 04/28/2018 Comp Metabolic Xzf693 CO2 28.0 mEq/L 04/28/2018 Comp Metabolic Zii968 AN ION GAP 12 04/28/2018 Comp Metabolic Zqq311 GL UCOSE 195 mg/dL 04/28/2018 Comp Metabolic Uym718 Cr eat 0.7 mg/dL 04/28/2018 Comp Metabolic Xmy659 eG FR 81 ml/min/1.73m2 04/28 Comp Metabolic Zjt302 BUN 24 mg/dL 04/28/2018 Comp Metabolic Xih297 B/ C Ratio 33.3 Ratio 04/28/2018 Comp Metabolic Mlh827 CA LCIUM 9.4 mg/dL 04/28/2018 Comp Metabolic Eje447 AL K PHOS 72 U/L 04/28/2018 Comp Metabolic Ijs007 T(SGOT) 15 U/L 04/28/2018 Comp Metabolic Osc740 AL T(SGPT) 11 U/L 04/28/2018 Comp Metabolic Oso754 BI LI T 0.6 mg/dL 04/28/2018 Comp Metabolic Vcp092 AL BUMIN 4.0 g/dL 04/28/2018 Comp Metabolic Nsb997 TP RO 6.1 g/dL 04/28/2018 Comp Metabolic Ntc377 GL OB 2.1 g/dL 04/28/2018 Comp Metabolic Vxl378 A/ G Ratio 2.0 Ratio 04/28/2018 Comp Metabolic Srk114 Os mo 283 mOsmo 04/28/2018 %Hba1C Jwb790 % HbA1c 85681-1 7.5 % 04/28/2018 %Hba1C Rtw603 Gluc Ave 169 mg/dL 04/28/2018 %Hba1C Paw705 % HbA1c 80242-8 7.1 % 12/25/2017 %Hba1C Dsp041 Gluc Ave 157 mg/dL 12/25/2017 Comp Metabolic Udz905 NA 139 mEq/L 12/25/2017 Comp Metabolic Agw137 K 4.1 mEq/L 12/25/2017 Comp Metabolic Aco101 CL 104 mEq/L 12/25/2017 Comp Metabolic Qup155 CO2 28.0 mEq/L 12/25/2017 Comp Metabolic Xfy292 AN ION GAP 11 12/25/2017 Comp Metabolic Eeq662 GL UCOSE 129 mg/dL 12/25/2017 Comp Metabolic Fya956 Cr eat 0.7 mg/dL 12/25/2017 Comp Metabolic Rqc036 eG FR 83 ml/min/1.73m2 12/25 Comp Metabolic Mjp115 BUN 22 mg/dL 12/25/2017 Comp Metabolic Mjw152 B/ C Ratio 31.0 Ratio 12/25/2017 Comp Metabolic Xld882 CA LCIUM 9.4 mg/dL 12/25/2017 Comp Metabolic Lcl981 AL K PHOS 70 U/L 12/25/2017 Comp Metabolic Ova991 T(SGOT) 16 U/L 12/25/2017 Comp Metabolic Jwu464 AL T(SGPT) 12 U/L 12/25/2017 Comp Metabolic Myz650 BI LI T 0.5 mg/dL 12/25/2017 Comp Metabolic Hzd465 AL BUMIN 4.2 g/dL 12/25/2017 Comp Metabolic Arz594 TP RO 6.1 g/dL 12/25/2017 Comp Metabolic Knp731 GL OB 1.9 g/dL 12/25/2017 Comp Metabolic Lyx244 A/ G Ratio 2.1 Ratio 12/25/2017 Comp Metabolic Sin903 Os mo 283 mOsmo 12/25/2017 %Hba1C Vpz540 % HbA1c 65881-3 8.0 % 05/13/2017 %Hba1C Myo125 Gluc Ave 183 mg/dL 05/13/2017 Comp Metabolic Lap685 NA 135 mEq/L 05/13/2017 Comp Metabolic Tbv749 K 3.8 mEq/L 05/13/2017 Comp Metabolic Ssm149 CL 99 mEq/L 05/13/2017 Comp Metabolic Exe087 CO2 29.0 mEq/L 05/13/2017 Comp Metabolic Jig861 AN ION GAP 11 05/13/2017 Comp Metabolic Hpk855 GL UCOSE 155 mg/dL 05/13/2017 Comp Metabolic Evi737 Cr eat 0.7 mg/dL 05/13/2017 Comp Metabolic Taq922 eG FR 90 ml/min/1.73m2 05/13 Comp Metabolic Twl852 BUN 18 mg/dL 05/13/2017 Comp Metabolic Tes789 B/ C Ratio 27.3 Ratio 05/13/2017 Comp Metabolic Zaq193 CA LCIUM 8.9 mg/dL 05/13/2017 Comp Metabolic Ywn781 AL K PHOS 90 U/L 05/13/2017 Comp Metabolic Tyv285 T(SGOT) 18 U/L 05/13/2017 Comp Metabolic Pcs634 AL T(SGPT) 15 U/L 05/13/2017 Comp Metabolic Tak843 BI LI T 0.5 mg/dL 05/13/2017 Comp Metabolic Gzu297 AL BUMIN 4.0 g/dL 05/13/2017 Comp Metabolic Ptk473 TP RO 5.9 g/dL 05/13/2017 Comp Metabolic Wbf372 GL OB 1.9 g/dL 05/13/2017 Comp Metabolic Qrf854 A/ G Ratio 2.1 Ratio 05/13/2017 Comp Metabolic Mww533 Os mo 275 mOsmo 05/13/2017 Urine Culture Ucult Prel iminary NO Growth Day 1 01/18 Urine Culture Ucult Comp lete NO Growth Day 2 01/18 Free T4 Dhc314 FREE T4 1.13 ng/dL 10/09/2016 Tsh Ord6 [...] 31.5 pg 10/08/2016 Cbc With Differential Ord2 [place]% 4.0 % 10/08/2016 Cbc With Differential Ord2 [...] 0.96 K/ul 10/08/2016 Cbc With Differential Ord2 [place] ABS# 0.4 K/ul 10/08/2016 Cbc With Differential Ord2 Eos ABS# 0.0 K/ul 10/08/2016 Cbc With Differential Ord2 Baso ABS# 0.0 K/ul 10/08/2016 Comp Metabolic Qpu027 NA 135 mEq/L 10/08/2016 Comp Metabolic Ztt284 K 4.3 mEq/L 10/08/2016 Comp Metabolic Jef207 CL 98 mEq/L 10/08/2016 Comp Metabolic Nsq714 CO2 22.0 mEq/L 10/08/2016 Comp Metabolic Kds632 AN ION GAP 19 10/08/2016 Comp Metabolic Pek715 GL UCOSE 400 mg/dL 10/08/2016 Comp Metabolic Lwm920 Cr eat 0.7 mg/dL 10/08/2016 Comp Metabolic Fmw685 eG FR 79 ml/min/1.73m2 10/08 Comp Metabolic Szr855 BUN 27 mg/dL 10/08/2016 Comp Metabolic Ily328 B/ C Ratio 36.5 Ratio 10/08/2016 Comp Metabolic Mgv382 CA LCIUM 9.1 mg/dL 10/08/2016 Comp Metabolic Poy537 AL K PHOS 65 U/L 10/08/2016 Comp Metabolic Amc995 T(SGOT) 28 U/L 10/08/2016 Comp Metabolic Chr590 AL T(SGPT) 24 U/L 10/08/2016 Comp Metabolic Eqw010 BI LI T 0.7 mg/dL 10/08/2016 Comp Metabolic Yts115 AL BUMIN 3.8 g/dL 10/08/2016 Comp Metabolic Syn086 TP RO 6.0 g/dL 10/08/2016 Comp Metabolic Ghe111 GL OB 2.2 g/dL 10/08/2016 Comp Metabolic Uvf758 A/ G Ratio 1.7 Ratio 10/08/2016 Comp Metabolic Kwe160 Os mo 292 mOsmo 10/08/2016 %Hba1C Mel211 % HbA1c 62262-1 7.0 % 10/08/2016 %Hba1C Iwr683 Gluc Ave 154 mg/dL 10/08/2016 Microalbumin Foi081 Micr oAlb <0.7 mg/dL 10/08/2016 Lipid Ord30 [...] OK? TNP:Duplicate Order 04/03/2016 C A/B FLU [id number] Influe nza A Scr Negative 04/03/2016 C A/B FLU 0110088 Influe nza B Scr Negative 04/03/2016 Comp Metabolic Npn461 NA 138 mEq/L 09/15/2015 Comp Metabolic Pbc541 K 4.4 mEq/L 09/15/2015 Comp Metabolic Bfs883 CL 103 mEq/L 09/15/2015 Comp Metabolic Vph495 CO2 29.0 mEq/L 09/15/2015 Comp Metabolic Hxs939 AN ION GAP 10 09/15/2015 Comp Metabolic Rwg956 GL UCOSE 156 mg/dL 09/15/2015 Comp Metabolic Tnt012 Cr eat 0.7 mg/dL 09/15/2015 Comp Metabolic Qdn185 eG FR 79 ml/min/1.73m2 09/14 Comp Metabolic Wrs828 BUN 23 mg/dL 09/15/2015 Comp Metabolic Qhx857 B/ C Ratio 31.1 Ratio 09/15/2015 Comp Metabolic Wui104 CA LCIUM 9.1 mg/dL 09/15/2015 Comp Metabolic Rak341 AL K PHOS 58 U/L 09/15/2015 Comp Metabolic Ibu564 T(SGOT) 19 U/L 09/15/2015 Comp Metabolic Sux368 AL T(SGPT) 11 U/L 09/15/2015 Comp Metabolic Zaq369 BI LI T 0.6 mg/dL 09/15/2015 Comp Metabolic Jfv998 AL BUMIN 3.9 g/dL 09/15/2015 Comp Metabolic Fer549 TP RO 5.8 g/dL 09/15/2015 Comp Metabolic Mqc316 GL OB 1.9 g/dL 09/15/2015 Comp Metabolic Wso718 A/ G Ratio 2.1 Ratio 09/15/2015 Comp Metabolic Stq712 Os mo 283 mOsmo 09/15/2015 Cbc With [...] 30.5 pg 09/15/2015 Cbc With Differential Ord2 [place]% 10.2 % 09/15/2015 Cbc With Differential Ord2 [...] 0.86 K/ul 09/15/2015 Cbc With Differential Ord2 [place] ABS# 0.5 K/ul 09/15/2015 Cbc With Differential Ord2 Eos ABS# 0.1 K/ul 09/15/2015 Cbc With Differential Ord2 Baso ABS# 0.0 K/ul 09/15/2015 Tsh Ord6 hTSH II 0.76 uIU/mL 09/15/2015 Lipid Ord30 CHOL 139 mg/dL 09/15/2015 Lipid Ord30 HDL 57.0 mg/dl 09/15/2015 Lipid Ord30 TRIG 76 mg/dL 09/15/2015 Lipid Ord30 LDL 67 mg/dL 09/15/2015 Lipid Ord30 C/HDL 2.4 Ratio 09/15/2015 %Hba1C Zpd073 % HbA1c 80574-2 6.6 % 09/15/2015 %Hba1C Mvk476 Gluc Ave 143 mg/dL 09/15/2015 Tsh Ord6 hTSH II 0.68 uIU/mL 06/02/2015 %Hba1C Mty731 % HbA1c 44180-3 6.5 % 06/02/2015 %Hba1C Xat870 Gluc Ave 140 mg/dL 06/02/2015 Comp Metabolic Dkh904 NA 139 mEq/L 06/02/2015 Comp Metabolic Lcy819 K 4.5 mEq/L 06/02/2015 Comp Metabolic Lri986 CL 104 mEq/L 06/02/2015 Comp Metabolic Hzl543 CO2 25.0 mEq/L 06/02/2015 Comp Metabolic Mmz645 AN ION GAP 15 06/02/2015 Comp Metabolic Dff285 GL UCOSE 123 mg/dL 06/02/2015 Comp Metabolic Zds847 Cr eat 0.7 mg/dL 06/02/2015 Comp Metabolic Glb688 eG FR 92 ml/min/1.73m2 06/01 Comp Metabolic Dgh941 BUN 21 mg/dL 06/02/2015 Comp Metabolic Aoy425 B/ C Ratio 32.3 Ratio 06/02/2015 Comp Metabolic Sav111 CA LCIUM 9.5 mg/dL 06/02/2015 Comp Metabolic Llv889 AL K PHOS 66 U/L 06/02/2015 Comp Metabolic Ogr288 T(SGOT) 19 U/L 06/02/2015 Comp Metabolic Ega078 AL T(SGPT) 13 U/L 06/02/2015 Comp Metabolic Bix063 BI LI T 0.5 mg/dL 06/02/2015 Comp Metabolic Jzt563 AL BUMIN 4.0 g/dL 06/02/2015 Comp Metabolic Ehr375 TP RO 6.3 g/dL 06/02/2015 Comp Metabolic Pjf983 GL OB 2.3 g/dL 06/02/2015 Comp Metabolic Mrs247 A/ G Ratio 1.7 Ratio 06/02/2015 Comp Metabolic Xmz034 Os mo 282 mOsmo 06/02/2015 %Hba1C Qyh877 % HbA1c 28001-8 6.7 % 02/17/2015 %Hba1C Hdf296 Gluc Ave 146 mg/dL 02/17/2015 Comp Metabolic Vad012 NA 133 mEq/L 02/17/2015 Comp Metabolic Bwm204 K 4.3 mEq/L 02/17/2015 Comp Metabolic Xjg375 CL 99 mEq/L 02/17/2015 Comp Metabolic Zgy736 CO2 27.0 mEq/L 02/17/2015 Comp Metabolic Oru239 AN ION GAP 11 02/17/2015 Comp Metabolic Wwc570 GL UCOSE 239 mg/dL 02/17/2015 Comp Metabolic Gbt224 Cr eat 0.7 mg/dL 02/17/2015 Comp Metabolic Xdm554 eG FR 79 ml/min/1.73m2 02/17 Comp Metabolic Xpb741 BUN 24 mg/dL 02/17/2015 Comp Metabolic Xig759 B/ C Ratio 32.4 Ratio 02/17/2015 Comp Metabolic Jdp104 CA LCIUM 9.1 mg/dL 02/17/2015 Comp Metabolic Zaf920 AL K PHOS 75 U/L 02/17/2015 Comp Metabolic Awf864 T(SGOT) 18 U/L 02/17/2015 Comp Metabolic Wxg385 AL T(SGPT) 11 U/L 02/17/2015 Comp Metabolic Qza109 BI LI T 0.6 mg/dL 02/17/2015 Comp Metabolic Kbr112 AL BUMIN 4.2 g/dL 02/17/2015 Comp Metabolic Tcm942 TP RO 6.2 g/dL 02/17/2015 Comp Metabolic Ubr461 GL OB 2.0 g/dL 02/17/2015 Comp Metabolic Jqa859 A/ G Ratio 2.1 Ratio 02/17/2015 Comp Metabolic Rbe428 Os mo 278 mOsmo 02/17/2015 %Hba1C Acu901 % HbA1c 09551-3 6.7 % 11/15/2014 %Hba1C Ugk088 Gluc Ave 146 mg/dL 11/15/2014 Comp Metabolic Ocv355 NA 134 mEq/L 11/15/2014 Comp Metabolic Ssm641 K 4.5 mEq/L 11/15/2014 Comp Metabolic Cjd594 CL 101 mEq/L 11/15/2014 Comp Metabolic Vts910 CO2 27.0 mEq/L 11/15/2014 Comp Metabolic Maj959 AN ION GAP 11 11/15/2014 Comp Metabolic Pkd591 GL UCOSE 293 mg/dL 11/15/2014 Comp Metabolic Dqx695 Cr eat 0.7 mg/dL 11/15/2014 Comp Metabolic Jqa774 eG FR 87 ml/min/1.73m2 11/15 Comp Metabolic Acu614 BUN 20 mg/dL 11/15/2014 Comp Metabolic Szp764 B/ C Ratio 29.4 Ratio 11/15/2014 Comp Metabolic Wov355 CA LCIUM 9.0 mg/dL 11/15/2014 Comp Metabolic Umq807 AL K PHOS 67 U/L 11/15/2014 Comp Metabolic Ntg673 T(SGOT) 17 U/L 11/15/2014 Comp Metabolic Puv641 AL T(SGPT) 10 U/L 11/15/2014 Comp Metabolic Zmh042 BI LI T 0.6 mg/dL 11/15/2014 Comp Metabolic Dzo433 AL BUMIN 4.0 g/dL 11/15/2014 Comp Metabolic Dpq873 TP RO 6.0 g/dL 11/15/2014 Comp Metabolic Axq970 GL OB 2.0 g/dL 11/15/2014 Comp Metabolic Nun928 A/ G Ratio 2.0 Ratio 11/15/2014 Comp Metabolic Lra535 Os mo 282 mOsmo 11/15/2014 Review of [...] lips 04/28/2018 None Full Exam - General 1995 Ears/Nose/Throat lips/teeth/gingiva Overall: normal dentition 04/28/2018 None Full Exam - General 1995 Ears/Nose/Throat oral cavity/pharynx/larynx Overall: oral mucosa clear 04/28/2018 None Full Exam - General 1995 Ears/Nose/Throat oral cavity/pharynx/larynx Overall: oropharyngeal mucosa clear 04/28/2018 None Full Exam - General 1995 Ears/Nose/Throat oral cavity/pharynx/larynx Overall: hypopharynx benign 04/28/2018 [...] 1995 Ears/Nose/Throat oral cavity/pharynx/larynx Overall: hypopharynx benign 11/22/2017 [...] clear 01/08/2017 None Full Exam - General 1995 Ears/Nose/Throat lips/teeth/gingiva Overall: benign lips 01/08/2017 None Full Exam - General 1994 Ears/Nose/Throat lips/teeth/gingiva Overall: normal dentition 01/08/2017 None Full Exam - General 1995 Ears/Nose/Throat [...] GLUC MONITOR CONT PH YS I&R CPT-4: 17816 09/16/2017 GLUCOSE MONITORING CONT CPT-4: 53622 07/16/2017 TRIAMCINOLONE ACET I [place] NOS CPT-4: J3301 06/14/2017 DRAIN/INJECT JOINT/B URSA CPT-4: 04341 03/26/2017 TRIAMCINOLONE ACET I [place] NOS CPT-4: J3301 03/26/2017 URINALYSIS NONAUTO W /O SCOPE CPT-4: 85564 01/16/2017 THER/PROPH/DIAG INJ SC/IM CPT-4: 44067 01/16/2017 ROCEPHIN, PER 250 MG CPT-4: J0696 01/16/2017 DESTRUCT PREMALG LESION CPT-4: 14064 10/16/2016 TRIAMCINOLONE ACET I [place] NOS CPT-4: J3301 09/27/2016 ROCEPHIN, PER 250 MG CPT-4: J0696 09/27/2016 PPPS, SUBSEQ VISIT CPT- 4: G0439 07/10/2016 THER/PROPH/DIAG INJ SC/IM CPT-4: 02303 07/09/2016 TRIAMCINOLONE ACET I [place] NOS CPT-4: J3301 07/09/2016 ROCEPHIN, PER 250 MG CPT-4: J0696 07/09/2016 ADMIN PNEUMOCOCCAL V ACCINE SNOMED CT: 51024510 CPT-4: G0009 02/15/2015 PNEUMOCOCCAL VACC 13 LIMA IM Formatting Model/CDA Sections, Assigned to SNOMED CT: 45342478 CPT-4: [id number] 02/15/2015 ADMIN INFLUENZA VIRU S VAC CPT-4: G0008 12/10/2014 FLU VACC 4 LIMA 3 YRS PLUS IM Formatting Model/CDA Sections, Assigned to SNOMED CT: [id number] CPT-4: 54581Iqfbvma 12/10/2014 Vital Signs Date Vital 04/28/2018 Blood Pressure 1: 110/58 Code: 8480-6 BMI: 24.0 Code: 01118-2 Heart Rate 1: 56 bpm Height: 5'2" Respiratory Rate: 18 bpm SpO2: 98% Weight: 131 lbs 12/25/2017 Blood Pressure 1: 140/52 Code: 8480-6 BMI: 24.0 Code: 47193-2 Heart Rate 1: 64 bpm Height: 5'2" Respiratory Rate: 18 bpm SpO2: 96% Weight: 131 lbs 11/22/2017 Blood Pressure 1: 128/54 Code: 8480-6 BMI: 23.4 Code: 52585-8 Heart Rate 1: 62 bpm Height: 5'2" SpO2: 97% Weight: 128 lbs 10/07/2017 Blood Pressure 1: 148/68 Code: 8480-6 BMI: 23.2 Code: 20348-6 Heart Rate 1: 68 bpm Height: 5'2" SpO2: 98% Weight: 127 lbs 09/16/2017 Blood Pressure 1: 134/80 Code: 8480-6 BMI: 22.5 Code: 46675-4 Heart Rate 1: 86 bpm Height: 5'2" SpO2: 98% Weight: 123 lbs 09/09/2017 Blood Pressure 1: 150/66 Code: 8480-6 Blood Pressure 1: 138/72 Code: 8480-6 BMI: 22.9 Code: 11644-0 Heart Rate 1: 81 bpm Height: 5'2" SpO2: 98% Weight: 125 lbs 07/16/2017 Blood Pressure 1: 144/68 Code: 8480-6 BMI: 21.9 Code: 68847-2 Heart Rate 1: 73 bpm Height: 5'2" SpO2: 98% Weight: 120 lbs 06/14/2017 Blood Pressure 1: 132/64 Code: 8480-6 BMI: 22.3 Code: 91944-0 Heart Rate 1: 77 bpm Height: 5'2" SpO2: 98% Temperature: 37.0 (C ) / 98.6 (F) Weight: 122 lbs 06/10/2017 Blood Pressure 1: 134/64 Code: 8480-6 BMI: 22.5 Code: 44514-2 Heart Rate 1: 78 bpm Height: 5'2" SpO2: 95% Weight: 123 lbs 05/13/2017 Blood Pressure 1: 140/66 Code: 8480-6 BMI: 21.6 Code: 24787-7 Heart Rate 1: 80 bpm Height: 5'2" SpO2: 98% Weight: 118 lbs 03/26/2017 Blood Pressure 1: 150/78 Code: 8480-6 BMI: 23.2 Code: 86498-9 Heart Rate 1: 73 bpm Height: 5'2" SpO2: 99% Weight: 127 lbs 02/19/2017 Blood Pressure 1: 126/64 Code: 8480-6 BMI: 22.9 Code: 80262-6 Heart Rate 1: 74 bpm Height: 5'2" SpO2: 99% Weight: 125 lbs 01/16/2017 Blood Pressure 1: 136/68 Code: 8480-6 Heart Rate 1: 97 bpm Height: 5'2" Respiratory Rate: 16 bpm Temperature: 37.5 (C ) / 99.5 (F) Weight: 01/08/2017 Blood Pressure 1: 144/60 Code: 8480-6 BMI: 23.0 Code: 38693-7 Heart Rate 1: 71 bpm Height: 5'2" SpO2: 96% Weight: 126 lbs 11/21/2016 Blood Pressure 1: 150/62 Code: 8480-6 BMI: 23.2 Code: 14132-3 Heart Rate 1: 73 bpm Height: 5'2" SpO2: 94% Weight: 127 lbs 10/16/2016 Blood Pressure 1: 142/82 Code: 8480-6 BMI: 22.9 Code: 25629-8 Heart Rate 1: 80 bpm Height: 5'2" SpO2: 96% Weight: 125 lbs 10/08/2016 Blood Pressure 1: 150/72 Code: 8480-6 Heart Rate 1: 65 bpm Height: 5'2" SpO2: 98% 10/01/2016 Blood Pressure 1: 152/76 Code: 8480-6 Heart Rate 1: 69 bpm Height: 5'2" SpO2: 97% 09/27/2016 Blood Pressure 1: 122/64 Code: 8480-6 BMI: 23.3 Code: 44134-0 Heart Rate 1: 80 bpm Height: 5'2" SpO2: 98% Weight: 127 lbs 8 oz 07/19/2016 Blood Pressure 1: 118/68 Code: 8480-6 BMI: 23.0 Code: 69973-6 Heart Rate 1: 62 bpm Height: 5'2" SpO2: 97% Weight: 126 lbs 07/10/2016 Blood Pressure 1: 132/64 Code: 8480-6 BMI: 23.4 Code: 87795-5 Heart Rate 1: 82 bpm Height: 5'2" SpO2: 98% Waist Measure (cm): 76 cm Weight: 128 lbs 07/09/2016 Blood Pressure 1: 132/64 Code: 8480-6 BMI: 23.4 Code: 60614-4 Heart Rate 1: 82 bpm Height: 5'2" SpO2: 98% Temperature: 37.2 (C ) / 98.9 (F) Weight: 128 lbs 06/06/2016 Blood Pressure 1: 144/66 Code: 8480-6 BMI: 23.4 Code: 33253-8 Heart Rate 1: 77 bpm Height: 5'2" SpO2: 97% Weight: 128 lbs 04/03/2016 Blood Pressure 1: 164/70 Code: 8480-6 BMI: 24.5 Code: 51339-2 Heart Rate 1: 80 bpm Height: 5'2" SpO2: 98% Weight: 134 lbs 12/26/2015 Blood Pressure 1: 130/72 Code: 8480-6 BMI: 24.1 Code: 13358-0 Heart Rate 1: 63 bpm Height: 5'2" SpO2: 98% Weight: 132 lbs 09/19/2015 Blood Pressure 1: 140/68 Code: 8480-6 BMI: 24.2 Code: 47930-5 Heart Rate 1: 96 bpm Height: 5'2" SpO2: 98% Weight: 132 lbs 8 oz 07/19/2015 Blood Pressure 1: 128/64 Code: 8480-6 BMI: 24.2 Code: 98068-4 Heart Rate 1: 66 bpm Height: 5'2" SpO2: 98% Weight: 132 lbs 8 oz 03/22/2015 Blood Pressure 1: 128/60 Code: 8480-6 BMI: 24.0 Code: 92075-3 Heart Rate 1: 57 bpm Height: 5'2" SpO2: 98% Weight: 131 lbs 02/15/2015 Blood Pressure 1: 132/56 Code: 8480-6 BMI: 23.8 Code: 12753-5 Heart Rate 1: 70 bpm Height: 5'2" SpO2: 98% Weight: 130 lbs 11/15/2014 Blood Pressure 1: 120/78 Code: 8480-6 BMI: 24.1 Code: 63652-9 Heart Rate 1: 79 bpm Height: 5'2" SpO2: 98% Weight: 132 lbs 08/13/2014 Blood Pressure 1: 140/60 Code: 8480-6 BMI: 24.0 Code: 77136-1 Heart Rate 1: 74 bpm Height: 5'2" [...] production 09/27/2016 None cough Location in the [facility] 09/27/2016 None cough Quality constant 09/27/2016 None [...] Encounters Encounter Performer Loca tion Codes Date ([id number]) 65085 EST. P ATIENT, LEVEL IV Diagnosis: Essential (primary) hypertension[ICD10: I10] Diagnosis: Type 2 diabetes mellitus with hyperglycemia[ICD10: E11.65] Diagnosis: Trigger finger, right middle finger[ICD10: M65.331] Dominique Recinos MD, [facility] CPT-4: 29801 04/28/2018 ([id number]) 53023 EST. P ATIENT, LEVEL IV Diagnosis: Type 2 diabetes mellitus with hyperglycemia[ICD10: E11.65] Diagnosis: Essential (primary) hypertension[ICD10: I10] Diagnosis: Localized edema[ICD10: R60.0] Dominique Recinos MD, [facility] CPT-4: 26575 12/25/2017 ([id number]) 47067 EST. P ATIENT, LEVEL IV Diagnosis: Diverticulitis of large intestine without perforation or abscess without bleeding[ICD10: K57.32] Diagnosis: Nausea[ICD10: R11.0] Maile Recinos MD, [facility] CPT-4: 16429 11/22/2017 ([id number]) Miscellaneou s no charge Diagnosis: Laceration without foreign body of right forearm, subsequent encounter[ICD10: S51.811D] Dominique Recinos MD, [facility] CPT-4: 83696 10/16/2017 ([id number]) Miscellaneou s no charge Diagnosis: Laceration without foreign body of right forearm, subsequent encounter[ICD10: S51.811D] Dominique Recinos MD, [facility] CPT-4: 24544 10/14/2017 ([id number]) Miscellaneou s no charge Diagnosis: Laceration without foreign body of right forearm, subsequent encounter[ICD10: S51.811D] Dominique Recinos MD, [facility] CPT-4: 48565 10/09/2017 ([id number]) 79023 EST. P ATIENT, LEVEL III Diagnosis: Type 2 diabetes mellitus with hyperglycemia[ICD10: E11.65] Dominique Recinos MD, [facility] CPT-4: 95131 10/07/2017 ([id number]) 68091 EST. P ATIENT, LEVEL III Diagnosis: Type 2 diabetes mellitus with hyperglycemia[ICD10: E11.65] Fatmata Recinos MD, [facility] CPT-4: 41693 09/16/2017 ([id number]) 12350 EST. P ATIENT, LEVEL III Diagnosis: Essential (primary) hypertension[ICD10: I10] Dominique Recinos MD, [facility] CPT-4: 93441 09/09/2017 ([id number]) Miscellaneou s no charge Diagnosis: Type 1 diabetes mellitus without complications[ICD10: E10.9] Fatmata Recinos MD, [facility] CPT-4: 73996 07/22/2017 ([id number]) 53407 EST. P ATIENT, LEVEL IV Diagnosis: Type 1 diabetes mellitus without complications[ICD10: E10.9] Diagnosis: Mixed hyperlipidemia[ICD10: E78.2] Diagnosis: Essential (primary) hypertension[ICD10: I10] Dominique Recinos MD, [facility] CPT-4: 96526 07/16/2017 ([id number]) 45968 EST. P ATIENT, LEVEL III Diagnosis: Cough[ICD10: R05] Diagnosis: Acute recurrent maxillary sinusitis[ICD10: J01.01] Maile Recinos MD, [facility] CPT-4: 20724 06/14/2017 ([id number]) 26501 EST. P ATIENT, LEVEL IV Diagnosis: Type 1 diabetes mellitus without complications[ICD10: E10.9] Diagnosis: Essential (primary) hypertension[ICD10: I10] Dominique Recinos MD, [facility] CPT-4: 62140 06/10/2017 ([id number]) 72621 EST. P ATIENT, LEVEL IV Diagnosis: Essential (primary) hypertension[ICD10: I10] Diagnosis: Type 1 diabetes mellitus without complications[ICD10: E10.9] Dominique Recinos MD, [facility] CPT-4: 56579 05/13/2017 98468 EST. PATIENT, LEVEL III Diagnosis: Sciatica, right side[ICD10: M54.31] Diagnosis: Low back pain[ICD10: M54.5] Fatmata Recinos MD, [facility] CPT-4: 64620 03/26/2017 ([id number]) 09617 EST. P ATIENT, LEVEL III Diagnosis: Type 1 diabetes mellitus without complications[ICD10: E10.9] Diagnosis: Essential (primary) hypertension[ICD10: I10] Dominique Recinos MD, [facility] CPT-4: 33160 02/19/2017 ([id number]) 02159 EST. P ATIENT, LEVEL IV Diagnosis: Fever presenting with conditions classified elsewhere[ICD10: R50.81] Diagnosis: Weakness[ICD10: R53.1] Diagnosis: Frequency of micturition[ICD10: R35.0] Diagnosis: Type 1 diabetes mellitus without complications[ICD10: E10.9] Dominique Recinos MD, [facility] CPT-4: 76375 01/16/2017 ([id number]) 28799 EST. P ATIENT, LEVEL IV Diagnosis: Type 1 diabetes mellitus without complications[ICD10: E10.9] Diagnosis: Essential (primary) hypertension[ICD10: I10] Dominique Recinos MD, [facility] CPT-4: 15675 01/08/2017 ([id number]) 83938 EST. P ATIENT, LEVEL IV Diagnosis: Essential (primary) hypertension[ICD10: I10] Diagnosis: Type 1 diabetes mellitus without complications[ICD10: E10.9] Dominique Recinos MD, [facility] CPT-4: 03700 11/21/2016 ([id number]) 91263 EST. 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 P ATIENT, LEVEL III Diagnosis: Chronic obstructive pulmonary disease with (acute) exacerbation[ICD10: J44.1] Diagnosis: Cough[ICD10: R05] Maile Recinos MD, [facility] CPT-4: 12476 10/08/2016 ([id number]) Miscellaneou s no charge Diagnosis: Cough[ICD10: R05] Diagnosis: Chronic obstructive pulmonary disease with (acute) exacerbation[ICD10: J44.1] Maile Recinos MD, [facility] CPT-4: 14392 10/01/2016 ([id number]) 54914 EST. P ATIENT, LEVEL III Diagnosis: Cough[ICD10: R05] Diagnosis: Acute bronchitis, unspecified[ICD10: J20.9] Maile Recinos MD, [facility] CPT-4: 12566 09/27/2016 ([id number]) 68822 EST. P ATIENT, LEVEL III Diagnosis: Type 1 diabetes mellitus without complications[ICD10: E10.9] Dominique Recinos MD, [facility] CPT-4: 48050 07/19/2016 ([id number]) 94013 EST. P ATIENT, LEVEL IV Diagnosis: Essential (primary) hypertension[ICD10: I10] Diagnosis: Type 1 diabetes mellitus without complications[ICD10: E10.9] Diagnosis: Other allergic rhinitis[ICD10: J30.89] Diagnosis: Acute laryngopharyngitis[ICD10: J06.0] Dominique Recinos MD, [facility] CPT-4: 87078 07/09/2016 ([id number]) 70769 EST. P ATIENT, LEVEL IV Diagnosis: Essential (primary) hypertension[ICD10: I10] Diagnosis: Type 1 diabetes mellitus without complications[ICD10: E10.9] Diagnosis: Mixed hyperlipidemia[ICD10: E78.2] Dominique Recinos MD, [facility] CPT- 4: 49503 06/06/2016 84735 EST. PATIENT, LEVEL III Diagnosis: Other allergic rhinitis[ICD10: J30.89] Diagnosis: Acute laryngopharyngitis[ICD10: J06.0] Fatmata Recinos MD, [facility] CPT-4: 39245 04/03/2016 ([id number]) 73292 EST. P ATIENT, LEVEL IV Diagnosis: Type 1 diabetes mellitus without complications[ICD10: E10.9] Diagnosis: Essential (primary) hypertension[ICD10: I10] Diagnosis: Pain in right hand[ICD10: M79.641] Dominique Recinos MD, [facility] CPT- 4: 02692 12/26/2015 ([id number]) 53193 EST. P ATIENT, LEVEL IV Diagnosis: Type 1 diabetes mellitus without complications[ICD10: E10.9] Diagnosis: Essential (primary) hypertension[ICD10: I10] Dominique Recinos MD, [facility] CPT-4: 26515 09/19/2015 ([id number]) 01436 EST. P ATIENT, LEVEL IV Diagnosis: Essential (primary) hypertension[ICD10: I10] Diagnosis: Mixed hyperlipidemia[ICD10: E78.2] Diagnosis: Type 1 diabetes mellitus without complications[ICD10: E10.9] Dominique Recinos MD, [facility] CPT-4: 94798 07/19/2015 ([id number]) 83202 EST. P ATIENT, LEVEL IV Diagnosis: Other specified dorsopathies, lumbar region[ICD10: M53.86] Diagnosis: Urge incontinence[ICD10: N39.41] Diagnosis: Type 1 diabetes mellitus without complications[ICD10: E10.9] Dominique Recinos MD, [facility] CPT-4: 07115 03/22/2015 ([id number]) 27196 EST. P ATIENT, LEVEL IV Diagnosis: Essential (primary) hypertension[ICD10: I10] Diagnosis: Other specified dorsopathies, lumbar region[ICD10: M53.86] Diagnosis: Other chronic pain[ICD10: G89.29] Dominique Recinos MD, [facility] CPT-4: 40929 02/15/2015 ([id number]) 75929 EST. P ATIENT, LEVEL IV Diagnosis: ESSENTIAL HYPERTENSION[ICD9: 401.9] Diagnosis: DIABETES TYPE II[ICD9: 250.00] Diagnosis: FALL FROM LADDER[ICD9: E881.0] Diagnosis: Right hip pain[ICD9: 719.45] Diagnosis: Left hand pain[ICD9: 729.5] Diagnosis: Sacroiliac joint pain[ICD9: 724.6] [facility] CPT- 4: 14680 11/15/2014 ([id number]) OFFICE VISI T, NEW - LEVEL 4 Diagnosis: DIABETES TYPE II[ICD9: 250.00] Diagnosis: ESSENTIAL HYPERTENSION[ICD9: 401.9] Diagnosis: HYPERLIPIDEMIA[ICD9: 272.4] [facility] CPT-4: 27178 08/13/2014 Plan of Care Planned Activity Notes C odes Status Date Visit Plan: Hypertension - well con stephenieed - continue with current medications, continue with [...] controlled. 04/28/2018 [phone] ([facility] min) Moderate 04/28/2018 Patient Education: [...] seated. 12/25/2017 Appointment: [phone] [facility] [place] (15 min) Moderate 12/25/2017 Patient Education: Patient Medication Summary Completed 12/25/2017 Patient Education: Diabetes Completed 12/25/2017 Appointment: [facility] [phone] [facility] [place] (15 min) Moderate 12/09/2017 Visit Plan: Diverticulitis - rx for antibiotic sent to pt's pharmacy - pt advised to avoid seeds, nuts, popcorn, or any other food which has been proven to upset the pt's stomach. 11/22/2017 Appointment: Maile Randolph WPtel: [phone] [phone] (15 min) Moderate 11/22/2017 Patient Education: Patient [...] glucose. 10/07/2017 Appointment: [phone] [facility] (15 min) Moderate 10/07/2017 Patient Education: [...] control. 09/16/2017 Appointment: Fatmata Spann WPtel: [phone] [facility] (15 min) Moderate 09/16/2017 Patient Education: Patient [...] home. 09/09/2017 Appointment: Dominique Recinos WPtel: [phone] [facility] [place] (15 min) Moderate 09/09/2017 Patient Education: Patient Medication Summary Completed 09/09/2017 Appointment: Maile Randolph WPtel: [phone] [phone] [place] (15 min) Moderate 09/06/2017 Appointment: [facility] [phone] [facility] [place] (15 min) Moderate 09/05/2017 Appointment: Fatmata Spann [phone] [facility] [place] (15 min) Moderate 07/22/2017 Patient [...] less controlled. ipro placed today - by [facility] - pt to RTC on Saturday for [...] 07/16/2017 Visit Plan: Diabetes Mellitus - con alice [...] less controlled. ipro placed today - by [employer] - pt to RTC on Saturday for [...] to medications. 07/16/2017 Appointment: Dominique Recinos WPtel: [address] [place], [place] [address] (15 min) Moderate 07/16/2017 Patient Education: Patient Medication Summary Completed 07/16/2017 Visit Plan: Sinusitis - Pt has acut e infection - pain in face, maxillary region, Pt informed to use decongestant, RX given to patient, sinus rinses also recommended. Call if symptoms do not show improvement. 06/14/2017 Appointment: Maile Randolph WPtel: [phone] [phone] [place] (30 min) Complex 06/14/2017 Patient Education: [...] at home. 06/10/2017 Appointment: Dominique Recinos WPtel: [phone] [facility] [place] (15 min) Moderate 06/10/2017 Patient Education: Patient Medication Summary Completed 06/10/2017 Appointment: Fatmata Spann WPtel: [phone] [facility] [place] (30 min) Complex 06/03/2017 Visit Plan: [...] controlled. 05/13/2017 Appointment: [phone] [facility] [place] (15 min) Moderate 05/13/2017 Patient Education: Patient Medication Summary Completed 05/13/2017 Appointment: Domin[facility]inos [phone] [facility] [place] (30 min) Complex 05/03/2017 Appointment: Fatmata Spann [facility]Ptel[phone] [facility] [place] (15 min) Moderate 04/12/2017 Appointment: Domin[facility] Recinos [facility]el[phone] [facility] [place] (15 min) Moderate 04/11/2017 Appointment: Domin[facility] Recinos [facility]el[facility] [phone] [facility] [place] (15 min) Moderate 04/10/2017 Appointment: Domin[facility] Recinos [phone] [facility] [place] (15 min) Moderate 04/02/2017 Visit [...] injection. 03/26/2017 Appointment: Fatmata Spann [phone] [facility] [place] (30 min) Complex 03/26/2017 Appointment: Dominique Recinos [facility]Ptel[phone] [facility] [place] (15 min) Moderate 03/26/2017 Patient [...] home. 02/19/2017 Appointment: Domin[facility] Recinos [facility]el[phone] [facility] [place] (15 min) Moderate 02/19/2017 Patient Education: Patient Medication Summary Completed 02/19/2017 Patient Education: Hypertension Completed 02/19/2017 Appointment: [phone] [facility] [place] (15 min) Moderate 02/12/2017 Visit [...] above 100F. 01/16/2017 Appointment: Domin[facility] Recinos [facility]Ptel[facility] [phone] [facility] [place] (15 min) Moderate 01/16/2017 Patient [...] at home. 01/08/2017 Appointment: Domin[facility] Recinos [facility]Ptel[facility] [phone] [facility] [place] (15 min) Moderate 01/08/2017 Patient Education: Patient Medication Summary Completed 01/08/2017 Patient Education: Hypertension Completed 01/08/2017 Appointment: Domin[facility] [phone] [facility] [place] (15 min) Moderate 12/31/2016 Appointment: [phone] [facility] [place] (15 min) Moderate 12/18/2016 Visit Plan: [...] less controlled. 11/21/2016 Appointment: Dominique Recinos WPtel: [phone] [facility] [place] (15 min) Moderate 11/21/2016 Patient Education: Patient Medication Summary Completed 11/21/2016 Patient Education: Hypertension Completed 11/21/2016 Visit Plan: DM - uncontrolled - inc tr galvezus to 15 units - We will refer [...] potatoes, creamy coleslaw, etc. -- referral to smart energy specialist. Hyperlipidemia - pt has been counseled [...] coleslaw, etc. 10/16/2016 Appointment: Dominique Recinos WPtel: [facility] [place] (15 min) Moderate 10/16/2016 Patient Education: Patient Medication Summary Completed 10/16/2016 Patient Education: Hypertension Completed 10/16/2016 Patient Education: Patient Medication Summary Completed 10/09/2016 Care Plan: Free T4 Pending 10/09/2016 Visit Plan: COPD exacerbation-cough -symptoms resolved-call if symptoms return-monitor blood sugars closely for the next few days and discussed diet. 10/08/2016 Appointment: Maile Randolph WPtel: 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 10/01/2016 Appointment: Maile Randolph WPtel: [phone] [phone] (30 min) Complex 10/01/2016 Patient Education: Patient Medication Summary Completed 10/01/2016 Visit Plan: Bronchitis - acute case of bronchitis identified. Pt has been given antibiotics, breathing treatments as appropriate, and pt has been instructed to call if symptoms are not improved, or if symptoms acutely worsen. 09/27/2016 Appointment: Maile Randolph WPtel: [phone] [phone] (30 min) Complex 09/27/2016 Patient [...] controlled. 07/19/2016 Appointment: Dominique Recinos WPtel: [phone] (15 min) Moderate 07/19/2016 Patient Education: Patient [...] surrogate. 07/10/2016 Appointment: Fatmata Spann WPtel: [phone] [facility] [facility] - Annual Wellness Visit 07/10/2016 [...] not improving 07/09/2016 Appointment: Dominique Recinos WPtel: [phone] [facility] (15 min) Moderate 07/09/2016 Patient Education: Patient Medication Summary Completed 07/09/2016 Patient Education: Hypertension Completed 07/09/2016 Appointment: Dominique Recinos WPtel: [phone] [facility] (15 min) Moderate 06/26/2016 Visit Plan: Hypertension [...] dications. 06/06/2016 Appointment: Dominique Recinos WPtel: [phone] [facility] (15 min) Moderate 06/06/2016 Patient Education: Patient Medication Summary Completed 06/06/2016 Appointment: Dominique Recinos WPtel: [facility] (15 min) Moderate 04/30/2016 Visit Plan: [...] allergy spray. 04/03/2016 Appointment: Fatmata Spann WPtel: [facility]66[facility] (30 min) Complex 04/03/2016 Patient Education: Patient [...] Hypertension Completed 12/26/2015 Appointment: Dominique Recinos WPtel: [facility] [place] [phone] (15 min) Moderate 12/19/2015 Visit Plan: Diabetes [...] home. 09/19/2015 Appointment: [phone] (15 min) Moderate 09/19/2015 Patient Education: [...] me dications. 07/19/2015 Appointment: Domin[facility] Recinos [phone] [facility] [place] (15 min) Moderate 07/19/2015 Patient Education: [...] Back pain - referral to [facility] physical therapy for further eval and treat. 03/22/2015 Appointment: Dominique Recinos WPtel: [address] [place], [place] [address] (15 min) Moderate 03/22/2015 Patient Education: Patient Medication Summary Completed 03/22/2015 Care Plan: Referral Order SNOMED-CT : [id number] Ordered 03/22/2015 Visit Plan: Hypertension - well [...] me dications. 08/13/2014 Appointment: Dominique Recinos WPtel: [facility] [place] [facility] New Patient 08/13/2014 Patient Education: Patient Medication Summary Completed 08/13/2014 Patient Education: Hypertension Completed 08/13/2014 Referral: External, Ordering Provider Referral Appointment Requested Instructions Comment FLAGYL 500MG THREE T IMES DAILY X [...] readings are starting to become less controlled. get TIGER BALM - ove r the [...] the car for a long car ride. decrease the zocor t o 20mg daily [...] potatoes, creamy coleslaw, etc. -- referral to smart energy specialist. Hyperlipidemia - pt has been counseled [...] - use neosporin on lesion until healed kenalog . Sinusitis - Pt has acute [...] to become less controlled. decrease the zocor t o 20mg daily [...] cheese, mashed potatoes, creamy coleslaw, etc. . Diabetes Mellitus - controlled - per [...] to allow for greater blood glucose control. if your blood glucos e is between [...] not improved, or if symptoms acutely worsen. two old goats - from [employer] and home . Hypertension - well controlled [...] less controlled. ipro placed today - by [facility]IN[facility]ARMER - pt to RTC on Saturday for [...] less controlled. ipro placed today - by [facility]INCH[facility] FARMER - pt to RTC on Saturday for [...] Back pain - referral to [facility] physical therapy for further eval and treat.
--- OUTSIDE RECORDS SUMMARY | 2019-06-14 17:07 | XMS REPORT | CCD ---
Author Author Nathalia Recinos Organization [facility] Address [address] [place] [address] Phone Care Team Providers Care Lead Javascript Developer Name Role Phone PP Unavailable CCM Unavailable Summary Purpose Interface Exchange Insurance Providers Payer name Policy type / Coverage type Covered alliance party ID Effective Begin Date Effective End Date WPS Medicare Part B Medicare Part B [id number] Unknown [facility] ica Part B [id number] Un known Family history Mother Diagnosis Age At Onset No Family Disease Entered N/A Father Diagnosis Age At Onset Heart Attack Unknown Diabetes Unknown Social History Social History Element Codes Description Effective Dates Number of children Unknown 2 Sons, 5 grandchildren, 11 great grandchildren 01/08/2017 Marital status Unknown W crystal [place] in 201606/06/[address]: 993332483 Never smoker 08/13/[address]: 794165005 Never drinks alcohol 08/13/2014 Allergies, Adverse Reactions, [...] Fill Instructions Benicar 40 mg tablet RxNorm: 136562 Tablet(s) TAKE ONE TABLET BY MOUTH DAILY 06/06/2018 06/25/2018 Ac tive metoprolol tartrate 50 mg tablet RxNorm: 110546 TAKE ONE TABLET BY MO UTH TWICE A DAY 05/19/2018 05/13/2019 Ac tive hydrochlorothiazide 12.5 mg capsule RxNorm: 609825 TAKE ONE CAPSULE BY M OUTH DAILY 05/19/2018 05/13/2019 Ac tive Atacand 32 mg tablet RxNorm: 640654 1 Tablet(s) PO daily 05/12/2018 05/11/2018 Inactive This is to replace benicar At[place]and 32 mg tablet RxNorm: 611336 1 Tablet(s) PO daily 05/12/2018 06/05/2018 Inactive This is to replace benicar Benicar 40 mg tablet RxNorm: 097716 TAKE ONE TABLET BY MOUTH DAILY 05/07/2018 05/06/2018 In active Benicar 40 mg tablet RxNorm: 543705 Tablet(s) TAKE ONE TABLET BY MOUTH DAILY 05/07/2018 05/11/2018 In active Zoloft 50 mg tablet RxNorm: 993439 TAKE ONE TABLET BY MOUTH DAILY 04/28/2018 04/22/2019 Ac tive gabapentin 100 mg ca psule RxNorm: 519441 TAKE ONE CAPSULE BY M OUTH THREE TIMES A DAY 04/09/2018 07/16/2018 Ac tive Novolog U-100 Insuli n aspart 100 unit/mL subcutaneous solution RxNorm: 678070 SSI 5 units over 150 and for every additional 50 add 2 units Unit(s) SQ TID adjust as needed for glucose control 12/25/2017 07/22/2018 Active Cipro 500 mg tablet RxNorm: 678768 1 Tablet(s) PO BID 11/22/2017 12/01/2017 Inactive clotrimazole 1 % top ical cream RxNorm: 276939 1 Application TOP BID 11/22/2017 12/05/2017 Inactive Flagyl 500 mg tablet RxNorm: 029520 1 Tablet(s) PO TID 11/22/2017 12/01/2017 Inactive Lantus U-100 Insulin 100 unit/mL subcutaneous solution RxNorm: 816866 17 Unit(s) SQ QAM 11/11/2017 07/08/2018 Active Novolog U-100 Insuli n aspart 100 unit/mL subcutaneous solution RxNorm: 409063 SSI 5 units over 150 and for every additional 50 add 2 units Unit(s) SQ TID adjust as needed for glucose control 11/11/2017 12/24/2017 Inactive gabapentin 100 mg ca psule RxNorm: 148087 TAKE ONE CAPSULE BY M OUTH THREE TIMES A DAY 11/05/2017 02/11/2018 Inactive Kenalog 40 mg/mL fanny pension for injection RxNorm: 4658860 1 Milliliter(s) Inj 06/14/2017 06/14/2017 In active Flonase Allergy Reli ef 50 mcg/actuation nasal spray,suspension RxNorm: 4636689 2 [place] NASAL daily 06/14/2017 06/20/2017 Inactive doxycycline hyclate 100 mg tablet RxNorm: 704461 1 Tablet(s) PO BID 06/14/2017 06/20/2017 Inactive Lantus U-100 Insulin 100 unit/mL subcutaneous solution RxNorm: 716840 17 Unit(s) SQ QAM 06/10/2017 07/09/2017 Inactive gabapentin 100 mg ca psule RxNorm: 166954 TAKE ONE CAPSULE BY M OUTH THREE TIMES A DAY 05/23/2017 08/29/2017 Inactive Lantus U-100 Insulin 100 unit/mL subcutaneous solution RxNorm: 248150 15 Unit(s) SQ QAM 05/14/2017 06/09/2017 Inactive Novolog U-100 Insuli n aspart 100 unit/mL subcutaneous solution RxNorm: 754846 SSI 5 units over 150 and for every additional 50 add 2 units Unit(s) SQ TID adjust as needed for glucose control 04/24/2017 11/10/2017 Inactive Zocor 20 mg tablet RxNorm: 543298 1 Tablet(s) PO daily 04/05/2017 03/30/2018 Inactive Kenalog 40 mg/mL fanny pension for injection RxNorm: 2132939 1 Milliliter(s) Inj 03/26/2017 03/26/2017 In active Novolog 100 unit/mL subcutaneous solution RxNorm: 128747 SSI 5 units over 150 and for every additional 50 add 2 units Unit(s) SQ TID adjust as needed for glucose control 02/19/2017 04/23/2017 Inactive Lantus 100 unit/mL s ubcutaneous solution RxNorm: 339495 10 Unit(s) SQ QAM 02/19/2017 05/13/2017 In active ceftriaxone 500 mg s olution for injection RxNorm: 9104644 Inj 01/16/2017 01/16/2017 Inactive Lantus 100 unit/mL s ubcutaneous solution RxNorm: 684166 7 Unit(s) SQ QAM 01/16/2017 02/18/2017 In active Lantus 100 unit/mL s ubcutaneous solution RxNorm: 413940 10 Unit(s) SQ daily 01/08/2017 05/12/2017 In active gabapentin 100 mg ca psule RxNorm: 687584 TAKE ONE CAPSULE BY M OUTH THREE TIMES A DAY 11/30/2016 02/03/2017 Inactive Zoloft 50 mg tablet RxNorm: 462255 TAKE ONE TABLET BY MOUTH DAILY 10/30/2016 04/27/2017 In active Zocor 20 mg tablet RxNorm: 435594 1 Tablet(s) PO daily 10/16/2016 04/04/2017 Inactive stop the 40mg dose of zocor, start on 20 mg Lantus 100 unit/mL s ubcutaneous solution RxNorm: 439561 15 Unit(s) SQ daily 10/16/2016 01/07/2017 In active Novolog 100 unit/mL subcutaneous solution RxNorm: 296350 SSI 5 units over 150 and for every additional 50 add 2 units Unit(s) SQ TID adjust as needed for glucose control 10/16/2016 02/18/2017 Inactive prednisone 20 mg tablet RxNorm: 391105 1 Tablet(s) PO BID 10/01/2016 10/05/2016 Inactive Kenalog 40 mg/mL fanny pension for injection RxNorm: 5740444 1 Milliliter(s) Inj 09/27/2016 09/27/2016 In active Zithromax Z-Kishor 250 mg tablet RxNorm: 750646 1 Tablet(s) PO UD 09/27/2016 10/01/2016 Inactive ceftriaxone 500 mg s olution for injection RxNorm: 4852121 1 Milliliter(s) Inj 09/27/2016 09/27/2016 In active Augmentin 500 mg-125 mg tablet RxNorm: 699676 1 Tablet(s) PO BID 09/22/2016 09/26/2016 Inactive Tessalon Perles 100 mg capsule RxNorm: 737809 1 Capsule(s) PO Q8 MT N as needed 09/22/2016 04/27/2018 In active metoprolol tartrate 50 mg tablet RxNorm: 995463 TAKE ONE TABLET BY MO UTH TWICE A DAY 08/02/2016 07/27/2017 Inactive Novolog 100 unit/mL subcutaneous solution RxNorm: 854802 10 Unit(s) SQ TID adj ust as needed for glucose control 07/19/2016 10/15/2016 Inactive Humalog 100 unit/mL subcutaneous solution RxNorm: 095943 INJECT 10 UNITS UNDER THE SKIN BEFORE EACH MEAL 07/16/2016 07/16/2016 Inactive Kenalog 40 mg/mL fanny pension for injection RxNorm: 5836735 1 Milliliter(s) Inj 07/09/2016 07/09/2016 In active ceftriaxone 500 mg s olution for injection RxNorm: 6373854 Inj 07/09/2016 07/09/2016 Inactive Lantus 100 unit/mL s ubcutaneous solution RxNorm: 722715 Unit(s) INJECT 13 UNI TS UNDER THE SKIN IN THE MORNING 06/06/2016 10/15/2016 Inactive Zoloft 50 mg tablet RxNorm: 856022 TAKE ONE TABLET BY MOUTH DAILY 04/27/2016 07/25/2016 In active Lantus 100 unit/mL s ubcutaneous solution RxNorm: 831301 INJECT 20 UNITS UNDER THE SKIN AT BEDTIME 04/27/2016 06/05/2016 Inactive amoxicillin 500 mg c apsule RxNorm: 959876 1 Capsule(s) PO TID 04/03/2016 04/12/2016 Inactive Zyrtec 10 mg tablet RxNorm: 7892525 1 Tablet(s) PO daily 04/03/2016 05/02/2016 Inactive hydrochlorothiazide 12.5 mg capsule RxNorm: 133114 TAKE ONE CAPSULE BY M OUTH DAILY 03/12/2016 12/06/2016 In active Benicar 40 mg tablet RxNorm: 087944 1 Tablet(s) PO daily 02/28/2016 04/27/2016 Inactive Benicar 40 mg tablet RxNorm: 539728 1 Tablet(s) PO daily 02/20/2016 02/27/2016 Inactive gabapentin 100 mg ca psule RxNorm: 986431 TAKE ONE CAPSULE BY M OUTH THREE TIMES A DAY 01/09/2016 04/16/2016 Inactive metoprolol tartrate 50 mg tablet RxNorm: 533325 TAKE ONE TABLET BY MO [facility] TWICE A DAY 01/09/2016 04/07/2016 Inactive Humalog 100 unit/mL subcutaneous solution RxNorm: 236761 5-10 Unit(s) SQ AC 07/19/2015 07/18/2016 In active Lantus 100 unit/mL s ubcutaneous solution RxNorm: 675952 13 Unit(s) SQ QAM 07/19/2015 01/15/2017 In active Lantus 100 unit/mL s ubcutaneous solution RxNorm: 010238 20 Unit(s) SQ QHS 07/14/2015 07/18/2015 In active Zoloft 50 mg tablet RxNorm: 875444 1 Tablet(s) PO daily 05/19/2015 09/15/2015 Inactive Humalog 100 unit/mL subcutaneous solution RxNorm: 838043 10 Unit(s) SQ AC 05/11/2015 07/18/2015 In active metoprolol tartrate 50 mg tablet RxNorm: 691293 1 Tablet(s) PO BID 04/28/2015 08/25/2015 Inactive Lantus 100 unit/mL s ubcutaneous solution RxNorm: 520362 20 Unit(s) SQ QHS 04/28/2015 07/13/2015 In active Vesicare 10 mg tablet RxNorm: 810263 1 Tablet(s) PO QPM 03/22/2015 09/18/2015 Inactive hydrochlorothiazide 12.5 mg capsule RxNorm: 603779 1 Tablet(s) PO daily 01/04/2015 12/29/2015 In active gabapentin 100 mg ca psule RxNorm: 354371 1 Capsule(s) PO TID 11/29/2014 03/28/2015 Inactive [...] Date Active aspirin 81 mg tablet RxNorm: 532505 1 Tablet(s) PO daily No Start Date Active doxazosin 2 mg tablet RxNorm: 742302 1 Tablet(s) PO QHS No Start Date Active Fish Oil oral RxNorm: 4650760 oral No Start Date Active multivitamin capsule RxNorm: 1 Capsule(s) PO daily No Start Date Active Humalog 100 unit/mL subcutaneous solution RxNorm: 425998 Unit(s) SQ No Start Date 05/10/2015 Inactive Zoloft 50 mg tablet RxNorm: 008622 1 Tablet(s) PO daily No Start Date 05/18/2015 Inactive gabapentin 100 mg ca psule RxNorm: 275470 1 Capsule(s) PO daily No Start Date 11/28/2014 Inactive metoprolol tartrate 50 mg tablet RxNorm: 724493 1 Tablet(s) PO TID No Start Date 04/27/2015 Inactive Benicar 40 mg tablet RxNorm: 425766 1 Tablet(s) PO daily No Start Date 02/19/2016 Inactive hydrochlorothiazide 25 mg tablet RxNorm: 235291 1 Tablet(s) PO daily No Start Date 01/03/2015 Inactive Lantus 100 unit/mL s ubcutaneous solution RxNorm: 930896 13 Unit(s) SQ No Start Date 04/27/2015 Inactive Zocor 40 mg tablet RxNorm: 043500 1 Tablet(s) PO daily No Start Date 10/15/2016 Inactive Medication Administered Medication Codes Instruc tions Start Date Status Kenalog 40 mg/mL suspension for injection RxNorm: 7672855 1Milliliter 06/14/2017 N o longer Active Kenalog 40 mg/mL suspension for injection RxNorm: 5274138 1Milliliter 03/26/2017 N o longer Active ceftriaxone 500 mg solution for injection RxNorm: 4078113 01/16/2017 No longer A ctive Kenalog 40 mg/mL suspension for injection RxNorm: 1058383 1Milliliter 09/27/2016 N o longer Active ceftriaxone 500 mg solution for injection RxNorm: 9899227 1Milliliter 09/27/2016 N o longer Active Kenalog 40 mg/mL suspension for injection RxNorm: 6785035 1Milliliter 07/09/2016 N o longer Active ceftriaxone 500 mg solution for injection RxNorm: 6800896 07/09/2016 No longer A ctive Immunizations Vaccine [...] Item Item Code Result Date Comp Metabolic Emt127 NA 137 mEq/L 04/28/2018 Comp Metabolic Faa899 K 4.1 mEq/L 04/28/2018 Comp Metabolic Vzz215 CL 101 mEq/L 04/28/2018 Comp Metabolic Veb884 CO2 28.0 mEq/L 04/28/2018 Comp Metabolic Uww775 AN ION GAP 12 04/28/2018 Comp Metabolic Bqw347 GL UCOSE 195 mg/dL 04/28/2018 Comp Metabolic Jpj842 Cr eat 0.7 mg/dL 04/28/2018 Comp Metabolic Xgk544 eG FR 81 ml/min/1.73m2 04/28 Comp Metabolic Jnd249 BUN 24 mg/dL 04/28/2018 Comp Metabolic Dlh578 B/ C Ratio 33.3 Ratio 04/28/2018 Comp Metabolic Oai695 CA LCIUM 9.4 mg/dL 04/28/2018 Comp Metabolic Vyo779 AL K PHOS 72 U/L 04/28/2018 Comp Metabolic Yua320 T(SGOT) 15 U/L 04/28/2018 Comp Metabolic Wbx673 AL T(SGPT) 11 U/L 04/28/2018 Comp Metabolic Gux039 BI LI T 0.6 mg/dL 04/28/2018 Comp Metabolic Eld054 AL BUMIN 4.0 g/dL 04/28/2018 Comp Metabolic Dyi632 TP RO 6.1 g/dL 04/28/2018 Comp Metabolic Owc429 GL OB 2.1 g/dL 04/28/2018 Comp Metabolic Uhm304 A/ G Ratio 2.0 Ratio 04/28/2018 Comp Metabolic Rvl551 Os mo 283 mOsmo 04/28/2018 %Hba1C Uve108 % HbA1c 60113-9 7.5 % 04/28/2018 %Hba1C Ihn472 Gluc Ave 169 mg/dL 04/28/2018 %Hba1C Zgs292 % HbA1c 64239-1 7.1 % 12/25/2017 %Hba1C Bsi566 Gluc Ave 157 mg/dL 12/25/2017 Comp Metabolic Oxr281 NA 139 mEq/L 12/25/2017 Comp Metabolic Jsc809 K 4.1 mEq/L 12/25/2017 Comp Metabolic Qhr658 CL 104 mEq/L 12/25/2017 Comp Metabolic Lmw701 CO2 28.0 mEq/L 12/25/2017 Comp Metabolic Dwm529 AN ION GAP 11 12/25/2017 Comp Metabolic Qwe345 GL UCOSE 129 mg/dL 12/25/2017 Comp Metabolic Jjk812 Cr eat 0.7 mg/dL 12/25/2017 Comp Metabolic Xzz698 eG FR 83 ml/min/1.73m2 12/25 Comp Metabolic Hnd286 BUN 22 mg/dL 12/25/2017 Comp Metabolic Ezh730 B/ C Ratio 31.0 Ratio 12/25/2017 Comp Metabolic Akm908 CA LCIUM 9.4 mg/dL 12/25/2017 Comp Metabolic Izw641 AL K PHOS 70 U/L 12/25/2017 Comp Metabolic Ucb168 T(SGOT) 16 U/L 12/25/2017 Comp Metabolic Fuo439 AL T(SGPT) 12 U/L 12/25/2017 Comp Metabolic Lqe699 BI LI T 0.5 mg/dL 12/25/2017 Comp Metabolic Kbz471 AL BUMIN 4.2 g/dL 12/25/2017 Comp Metabolic Lcm164 TP RO 6.1 g/dL 12/25/2017 Comp Metabolic Asu710 GL OB 1.9 g/dL 12/25/2017 Comp Metabolic Aqz181 A/ G Ratio 2.1 Ratio 12/25/2017 Comp Metabolic Uri440 Os mo 283 mOsmo 12/25/2017 %Hba1C Lft492 % HbA1c 27303-3 8.0 % 05/13/2017 %Hba1C Kup177 Gluc Ave 183 mg/dL 05/13/2017 Comp Metabolic Pkb153 NA 135 mEq/L 05/13/2017 Comp Metabolic Hjp047 K 3.8 mEq/L 05/13/2017 Comp Metabolic Bou533 CL 99 mEq/L 05/13/2017 Comp Metabolic Jxe815 CO2 29.0 mEq/L 05/13/2017 Comp Metabolic Rit357 AN ION GAP 11 05/13/2017 Comp Metabolic Nmy280 GL UCOSE 155 mg/dL 05/13/2017 Comp Metabolic Nzu108 Cr eat 0.7 mg/dL 05/13/2017 Comp Metabolic Jam229 eG FR 90 ml/min/1.73m2 05/13 Comp Metabolic Yqx588 BUN 18 mg/dL 05/13/2017 Comp Metabolic Cfb070 B/ C Ratio 27.3 Ratio 05/13/2017 Comp Metabolic Myk845 CA LCIUM 8.9 mg/dL 05/13/2017 Comp Metabolic Hoz968 AL K PHOS 90 U/L 05/13/2017 Comp Metabolic Cfn576 T(SGOT) 18 U/L 05/13/2017 Comp Metabolic Mlb512 AL T(SGPT) 15 U/L 05/13/2017 Comp Metabolic Bdf357 BI LI T 0.5 mg/dL 05/13/2017 Comp Metabolic Ida899 AL BUMIN 4.0 g/dL 05/13/2017 Comp Metabolic Lwy751 TP RO 5.9 g/dL 05/13/2017 Comp Metabolic Oyd317 GL OB 1.9 g/dL 05/13/2017 Comp Metabolic Tri581 A/ G Ratio 2.1 Ratio 05/13/2017 Comp Metabolic Zeq953 Os mo 275 mOsmo 05/13/2017 Urine Culture Ucult Prel iminary NO Growth Day 1 01/18 Urine Culture Ucult Comp lete NO Growth Day 2 01/18 Free T4 Jxw383 FREE T4 1.13 ng/dL 10/09/2016 Tsh Ord6 [...] 31.5 pg 10/08/2016 Cbc With Differential Ord2 [place]% 4.0 % 10/08/2016 Cbc With Differential Ord2 [...] 0.96 K/ul 10/08/2016 Cbc With Differential Ord2 [place] ABS# 0.4 K/ul 10/08/2016 Cbc With Differential Ord2 Eos ABS# 0.0 K/ul 10/08/2016 Cbc With Differential Ord2 Baso ABS# 0.0 K/ul 10/08/2016 Comp Metabolic Ivn423 NA 135 mEq/L 10/08/2016 Comp Metabolic Nvt821 K 4.3 mEq/L 10/08/2016 Comp Metabolic Uul591 CL 98 mEq/L 10/08/2016 Comp Metabolic Jgp983 CO2 22.0 mEq/L 10/08/2016 Comp Metabolic Pue388 AN ION GAP 19 10/08/2016 Comp Metabolic Xxd148 GL UCOSE 400 mg/dL 10/08/2016 Comp Metabolic Els640 Cr eat 0.7 mg/dL 10/08/2016 Comp Metabolic Fwt051 eG FR 79 ml/min/1.73m2 10/08 Comp Metabolic Oba544 BUN 27 mg/dL 10/08/2016 Comp Metabolic Eoo334 B/ C Ratio 36.5 Ratio 10/08/2016 Comp Metabolic Stl826 CA LCIUM 9.1 mg/dL 10/08/2016 Comp Metabolic Jbb651 AL K PHOS 65 U/L 10/08/2016 Comp Metabolic Afc596 T(SGOT) 28 U/L 10/08/2016 Comp Metabolic Qfk174 AL T(SGPT) 24 U/L 10/08/2016 Comp Metabolic Sjo456 BI LI T 0.7 mg/dL 10/08/2016 Comp Metabolic Quu415 AL BUMIN 3.8 g/dL 10/08/2016 Comp Metabolic Blo352 TP RO 6.0 g/dL 10/08/2016 Comp Metabolic Rbx981 GL OB 2.2 g/dL 10/08/2016 Comp Metabolic Oqt122 A/ G Ratio 1.7 Ratio 10/08/2016 Comp Metabolic Oxk735 Os mo 292 mOsmo 10/08/2016 %Hba1C Mhr902 % HbA1c 09980-3 7.0 % 10/08/2016 %Hba1C Foq479 Gluc Ave 154 mg/dL 10/08/2016 Microalbumin Ico558 Micr oAlb <0.7 mg/dL 10/08/2016 Lipid Ord30 [...] OK? TNP:Duplicate Order 04/03/2016 C A/B FLU 0327183 Influe nza A Scr Negative 04/03/2016 C A/B FLU 9625329 Influe nza B Scr Negative 04/03/2016 Comp Metabolic Ywo237 NA 138 mEq/L 09/15/2015 Comp Metabolic Ozh277 K 4.4 mEq/L 09/15/2015 Comp Metabolic Hfr660 CL 103 mEq/L 09/15/2015 Comp Metabolic Vcb839 CO2 29.0 mEq/L 09/15/2015 Comp Metabolic Yff742 AN ION GAP 10 09/15/2015 Comp Metabolic Efu759 GL UCOSE 156 mg/dL 09/15/2015 Comp Metabolic Mfd845 Cr eat 0.7 mg/dL 09/15/2015 Comp Metabolic Agy223 eG FR 79 ml/min/1.73m2 09/14 Comp Metabolic Edu285 BUN 23 mg/dL 09/15/2015 Comp Metabolic Mnb573 B/ C Ratio 31.1 Ratio 09/15/2015 Comp Metabolic Zgj521 CA LCIUM 9.1 mg/dL 09/15/2015 Comp Metabolic Gwd606 AL K PHOS 58 U/L 09/15/2015 Comp Metabolic Gsn490 T(SGOT) 19 U/L 09/15/2015 Comp Metabolic Mld401 AL T(SGPT) 11 U/L 09/15/2015 Comp Metabolic Kug398 BI LI T 0.6 mg/dL 09/15/2015 Comp Metabolic Cva557 AL BUMIN 3.9 g/dL 09/15/2015 Comp Metabolic Upf638 TP RO 5.8 g/dL 09/15/2015 Comp Metabolic Gql979 GL OB 1.9 g/dL 09/15/2015 Comp Metabolic Zjr653 A/ G Ratio 2.1 Ratio 09/15/2015 Comp Metabolic Ekz669 Os mo 283 mOsmo 09/15/2015 Cbc With [...] 30.5 pg 09/15/2015 Cbc With Differential Ord2 [place]% 10.2 % 09/15/2015 Cbc With Differential Ord2 [...] 0.86 K/ul 09/15/2015 Cbc With Differential Ord2 [place] ABS# 0.5 K/ul 09/15/2015 Cbc With Differential Ord2 Eos ABS# 0.1 K/ul 09/15/2015 Cbc With Differential Ord2 Baso ABS# 0.0 K/ul 09/15/2015 Tsh Ord6 hTSH II 0.76 uIU/mL 09/15/2015 Lipid Ord30 CHOL 139 mg/dL 09/15/2015 Lipid Ord30 HDL 57.0 mg/dl 09/15/2015 Lipid Ord30 TRIG 76 mg/dL 09/15/2015 Lipid Ord30 LDL 67 mg/dL 09/15/2015 Lipid Ord30 C/HDL 2.4 Ratio 09/15/2015 %Hba1C Ouq547 % HbA1c 80774-9 6.6 % 09/15/2015 %Hba1C Kyk359 Gluc Ave 143 mg/dL 09/15/2015 Tsh Ord6 hTSH II 0.68 uIU/mL 06/02/2015 %Hba1C Eut350 % HbA1c 23957-3 6.5 % 06/02/2015 %Hba1C Fen456 Gluc Ave 140 mg/dL 06/02/2015 Comp Metabolic Mwn138 NA 139 mEq/L 06/02/2015 Comp Metabolic Jmo434 K 4.5 mEq/L 06/02/2015 Comp Metabolic Glt347 CL 104 mEq/L 06/02/2015 Comp Metabolic Dql190 CO2 25.0 mEq/L 06/02/2015 Comp Metabolic Mjv266 AN ION GAP 15 06/02/2015 Comp Metabolic Vno939 GL UCOSE 123 mg/dL 06/02/2015 Comp Metabolic Vpc734 Cr eat 0.7 mg/dL 06/02/2015 Comp Metabolic Fvt667 eG FR 92 ml/min/1.73m2 06/01 Comp Metabolic Ven734 BUN 21 mg/dL 06/02/2015 Comp Metabolic Vce262 B/ C Ratio 32.3 Ratio 06/02/2015 Comp Metabolic Oto700 CA LCIUM 9.5 mg/dL 06/02/2015 Comp Metabolic Zze774 AL K PHOS 66 U/L 06/02/2015 Comp Metabolic Vde943 T(SGOT) 19 U/L 06/02/2015 Comp Metabolic Vgb283 AL T(SGPT) 13 U/L 06/02/2015 Comp Metabolic Zpz824 BI LI T 0.5 mg/dL 06/02/2015 Comp Metabolic Hsu309 AL BUMIN 4.0 g/dL 06/02/2015 Comp Metabolic Pep525 TP RO 6.3 g/dL 06/02/2015 Comp Metabolic Mzk451 GL OB 2.3 g/dL 06/02/2015 Comp Metabolic Lkz021 A/ G Ratio 1.7 Ratio 06/02/2015 Comp Metabolic Xcb933 Os mo 282 mOsmo 06/02/2015 %Hba1C Gdb129 % HbA1c 92556-2 6.7 % 02/17/2015 %Hba1C Utg416 Gluc Ave 146 mg/dL 02/17/2015 Comp Metabolic Hax164 NA 133 mEq/L 02/17/2015 Comp Metabolic Ico081 K 4.3 mEq/L 02/17/2015 Comp Metabolic Hty543 CL 99 mEq/L 02/17/2015 Comp Metabolic Kvd994 CO2 27.0 mEq/L 02/17/2015 Comp Metabolic Iww597 AN ION GAP 11 02/17/2015 Comp Metabolic Paf790 GL UCOSE 239 mg/dL 02/17/2015 Comp Metabolic Ksb244 Cr eat 0.7 mg/dL 02/17/2015 Comp Metabolic Idd709 eG FR 79 ml/min/1.73m2 02/17 Comp Metabolic Jqk882 BUN 24 mg/dL 02/17/2015 Comp Metabolic Zor824 B/ C Ratio 32.4 Ratio 02/17/2015 Comp Metabolic Tup604 CA LCIUM 9.1 mg/dL 02/17/2015 Comp Metabolic Mqb638 AL K PHOS 75 U/L 02/17/2015 Comp Metabolic Mjm439 T(SGOT) 18 U/L 02/17/2015 Comp Metabolic Nmq970 AL T(SGPT) 11 U/L 02/17/2015 Comp Metabolic Zsg829 BI LI T 0.6 mg/dL 02/17/2015 Comp Metabolic Yfz365 AL BUMIN 4.2 g/dL 02/17/2015 Comp Metabolic Xyt291 TP RO 6.2 g/dL 02/17/2015 Comp Metabolic Tib000 GL OB 2.0 g/dL 02/17/2015 Comp Metabolic Lwp932 A/ G Ratio 2.1 Ratio 02/17/2015 Comp Metabolic Cue833 Os mo 278 mOsmo 02/17/2015 %Hba1C Xzc046 % HbA1c 34501-1 6.7 % 11/15/2014 %Hba1C Wlq651 Gluc Ave 146 mg/dL 11/15/2014 Comp Metabolic Fsj727 NA 134 mEq/L 11/15/2014 Comp Metabolic Mhf552 K 4.5 mEq/L 11/15/2014 Comp Metabolic Vqf102 CL 101 mEq/L 11/15/2014 Comp Metabolic Hol287 CO2 27.0 mEq/L 11/15/2014 Comp Metabolic Jni498 AN ION GAP 11 11/15/2014 Comp Metabolic Uhr032 GL UCOSE 293 mg/dL 11/15/2014 Comp Metabolic Ema833 Cr eat 0.7 mg/dL 11/15/2014 Comp Metabolic Fau140 eG FR 87 ml/min/1.73m2 11/15 Comp Metabolic Bqh737 BUN 20 mg/dL 11/15/2014 Comp Metabolic Vfv076 B/ C Ratio 29.4 Ratio 11/15/2014 Comp Metabolic Nge898 CA LCIUM 9.0 mg/dL 11/15/2014 Comp Metabolic Qvw542 AL K PHOS 67 U/L 11/15/2014 Comp Metabolic Cxe642 T(SGOT) 17 U/L 11/15/2014 Comp Metabolic Mnd918 AL T(SGPT) 10 U/L 11/15/2014 Comp Metabolic Kma619 BI LI T 0.6 mg/dL 11/15/2014 Comp Metabolic Izk074 AL BUMIN 4.0 g/dL 11/15/2014 Comp Metabolic Fpj292 TP RO 6.0 g/dL 11/15/2014 Comp Metabolic Soy915 GL OB 2.0 g/dL 11/15/2014 Comp Metabolic Hjn473 A/ G Ratio 2.0 Ratio 11/15/2014 Comp Metabolic Hyl420 Os mo 282 mOsmo 11/15/2014 Review of [...] None Full Exam - General 1995 Ears/Nose/Throat otoscopic exam Overall: tympanic membranes clear [...] GLUC MONITOR CONT PH YS I&R CPT-4: 05915 09/16/2017 GLUCOSE MONITORING CONT CPT-4: 20578 07/16/2017 TRIAMCINOLONE ACET I [place] NOS CPT-4: J3301 06/14/2017 DRAIN/INJECT JOINT/B URSA CPT-4: 88634 03/26/2017 TRIAMCINOLONE ACET I [place] NOS CPT-4: J3301 03/26/2017 URINALYSIS NONAUTO W /O SCOPE CPT-4: 36056 01/16/2017 THER/PROPH/DIAG INJ SC/IM CPT-4: 96975 01/16/2017 ROCEPHIN, PER 250 MG CPT-4: J0696 01/16/2017 DESTRUCT PREMALG LESION CPT-4: 95004 10/16/2016 TRIAMCINOLONE ACET I [place] NOS CPT-4: J3301 09/27/2016 ROCEPHIN, PER 250 MG CPT-4: J0696 09/27/2016 PPPS, SUBSEQ VISIT CPT- 4: G0439 07/10/2016 THER/PROPH/DIAG INJ SC/IM CPT-4: 67582 07/09/2016 TRIAMCINOLONE ACET I [place] NOS CPT-4: J3301 07/09/2016 ROCEPHIN, PER 250 MG CPT-4: J0696 07/09/2016 ADMIN PNEUMOCOCCAL V ACCINE SNOMED CT: 80135601 CPT-4: G0009 02/15/2015 PNEUMOCOCCAL VACC 13 LIMA IM Formatting Model/CDA Sections, Assigned to SNOMED CT: 15713253 CPT-4: 22684Jivcphj 02/15/2015 ADMIN INFLUENZA VIRU S VAC CPT-4: G0008 12/10/2014 FLU VACC 4 LIMA 3 YRS PLUS IM Formatting Model/CDA Sections, Assigned to SNOMED CT: 16499529 CPT-4: 21772Sbbjagm 12/10/2014 Vital Signs Date Vital 04/28/2018 Blood Pressure 1: 110/58 Code: 8480-6 BMI: 24.0 Code: 50480-2 Heart Rate 1: 56 bpm Height: 5'2" Respiratory Rate: 18 bpm SpO2: 98% Weight: 131 lbs 12/25/2017 Blood Pressure 1: 140/52 Code: 8480-6 BMI: 24.0 Code: 26551-6 Heart Rate 1: 64 bpm Height: 5'2" Respiratory Rate: 18 bpm SpO2: 96% Weight: 131 lbs 11/22/2017 Blood Pressure 1: 128/54 Code: 8480-6 BMI: 23.4 Code: 45275-8 Heart Rate 1: 62 bpm Height: 5'2" SpO2: 97% Weight: 128 lbs 10/07/2017 Blood Pressure 1: 148/68 Code: 8480-6 BMI: 23.2 Code: 90718-2 Heart Rate 1: 68 bpm Height: 5'2" SpO2: 98% Weight: 127 lbs 09/16/2017 Blood Pressure 1: 134/80 Code: 8480-6 BMI: 22.5 Code: 01224-2 Heart Rate 1: 86 bpm Height: 5'2" SpO2: 98% Weight: 123 lbs 09/09/2017 Blood Pressure 1: 150/66 Code: 8480-6 Blood Pressure 1: 138/72 Code: 8480-6 BMI: 22.9 Code: 57101-2 Heart Rate 1: 81 bpm Height: 5'2" SpO2: 98% Weight: 125 lbs 07/16/2017 Blood Pressure 1: 144/68 Code: 8480-6 BMI: 21.9 Code: 15012-6 Heart Rate 1: 73 bpm Height: 5'2" SpO2: 98% Weight: 120 lbs 06/14/2017 Blood Pressure 1: 132/64 Code: 8480-6 BMI: 22.3 Code: 38860-8 Heart Rate 1: 77 bpm Height: 5'2" SpO2: 98% Temperature: 37.0 (C ) / 98.6 (F) Weight: 122 lbs 06/10/2017 Blood Pressure 1: 134/64 Code: 8480-6 BMI: 22.5 Code: 91594-3 Heart Rate 1: 78 bpm Height: 5'2" SpO2: 95% Weight: 123 lbs 05/13/2017 Blood Pressure 1: 140/66 Code: 8480-6 BMI: 21.6 Code: 09859-0 Heart Rate 1: 80 bpm Height: 5'2" SpO2: 98% Weight: 118 lbs 03/26/2017 Blood Pressure 1: 150/78 Code: 8480-6 BMI: 23.2 Code: 55212-5 Heart Rate 1: 73 bpm Height: 5'2" SpO2: 99% Weight: 127 lbs 02/19/2017 Blood Pressure 1: 126/64 Code: 8480-6 BMI: 22.9 Code: 65773-7 Heart Rate 1: 74 bpm Height: 5'2" SpO2: 99% Weight: 125 lbs 01/16/2017 Blood Pressure 1: 136/68 Code: 8480-6 Heart Rate 1: 97 bpm Height: 5'2" Respiratory Rate: 16 bpm Temperature: 37.5 (C ) / 99.5 (F) Weight: 01/08/2017 Blood Pressure 1: 144/60 Code: 8480-6 BMI: 23.0 Code: 69785-4 Heart Rate 1: 71 bpm Height: 5'2" SpO2: 96% Weight: 126 lbs 11/21/2016 Blood Pressure 1: 150/62 Code: 8480-6 BMI: 23.2 Code: 17326-9 Heart Rate 1: 73 bpm Height: 5'2" SpO2: 94% Weight: 127 lbs 10/16/2016 Blood Pressure 1: 142/82 Code: 8480-6 BMI: 22.9 Code: 06053-7 Heart Rate 1: 80 bpm Height: 5'2" SpO2: 96% Weight: 125 lbs 10/08/2016 Blood Pressure 1: 150/72 Code: 8480-6 Heart Rate 1: 65 bpm Height: 5'2" SpO2: 98% 10/01/2016 Blood Pressure 1: 152/76 Code: 8480-6 Heart Rate 1: 69 bpm Height: 5'2" SpO2: 97% 09/27/2016 Blood Pressure 1: 122/64 Code: 8480-6 BMI: 23.3 Code: 95704-2 Heart Rate 1: 80 bpm Height: 5'2" SpO2: 98% Weight: 127 lbs 8 oz 07/19/2016 Blood Pressure 1: 118/68 Code: 8480-6 BMI: 23.0 Code: 29777-7 Heart Rate 1: 62 bpm Height: 5'2" SpO2: 97% Weight: 126 lbs 07/10/2016 Blood Pressure 1: 132/64 Code: 8480-6 BMI: 23.4 Code: 46363-2 Heart Rate 1: 82 bpm Height: 5'2" SpO2: 98% Waist Measure (cm): 76 cm Weight: 128 lbs 07/09/2016 Blood Pressure 1: 132/64 Code: 8480-6 BMI: 23.4 Code: 77207-4 Heart Rate 1: 82 bpm Height: 5'2" SpO2: 98% Temperature: 37.2 (C ) / 98.9 (F) Weight: 128 lbs 06/06/2016 Blood Pressure 1: 144/66 Code: 8480-6 BMI: 23.4 Code: 09166-3 Heart Rate 1: 77 bpm Height: 5'2" SpO2: 97% Weight: 128 lbs 04/03/2016 Blood Pressure 1: 164/70 Code: 8480-6 BMI: 24.5 Code: 94660-1 Heart Rate 1: 80 bpm Height: 5'2" SpO2: 98% Weight: 134 lbs 12/26/2015 Blood Pressure 1: 130/72 Code: 8480-6 BMI: 24.1 Code: 97895-8 Heart Rate 1: 63 bpm Height: 5'2" SpO2: 98% Weight: 132 lbs 09/19/2015 Blood Pressure 1: 140/68 Code: 8480-6 BMI: 24.2 Code: 55114-0 Heart Rate 1: 96 bpm Height: 5'2" SpO2: 98% Weight: 132 lbs 8 oz 07/19/2015 Blood Pressure 1: 128/64 Code: 8480-6 BMI: 24.2 Code: 21999-0 Heart Rate 1: 66 bpm Height: 5'2" SpO2: 98% Weight: 132 lbs 8 oz 03/22/2015 Blood Pressure 1: 128/60 Code: 8480-6 BMI: 24.0 Code: 48723-1 Heart Rate 1: 57 bpm Height: 5'2" SpO2: 98% Weight: 131 lbs 02/15/2015 Blood Pressure 1: 132/56 Code: 8480-6 BMI: 23.8 Code: 06420-6 Heart Rate 1: 70 bpm Height: 5'2" SpO2: 98% Weight: 130 lbs 11/15/2014 Blood Pressure 1: 120/78 Code: 8480-6 BMI: 24.1 Code: 67217-2 Heart Rate 1: 79 bpm Height: 5'2" SpO2: 98% Weight: 132 lbs 08/13/2014 Blood Pressure 1: 140/60 Code: 8480-6 BMI: 24.0 Code: 99663-2 Heart Rate 1: 74 bpm Height: 5'2" [...] resolved 10/08/2016 None cough Location in the [facility] 10/01/2016 None cough Quality acute 10/01/2016 None [...] production 09/27/2016 None cough Location in the [facility] 09/27/2016 None cough Quality constant 09/27/2016 None [...] Encounters Encounter Performer Loca tion Codes Date ([id number]) 32791 EST. P ATIENT, LEVEL IV Diagnosis: Essential (primary) hypertension[ICD10: I10] Diagnosis: Type 2 diabetes mellitus with hyperglycemia[ICD10: E11.65] Diagnosis: Trigger finger, right middle finger[ICD10: M65.331] Dominique Recinos MD, [facility] CPT-4: 10154 04/28/2018 ([id number]) 35384 EST. P ATIENT, LEVEL IV Diagnosis: Type 2 diabetes mellitus with hyperglycemia[ICD10: E11.65] Diagnosis: Essential (primary) hypertension[ICD10: I10] Diagnosis: Localized edema[ICD10: R60.0] Dominique Recinos MD, [facility] CPT-4: 27267 12/25/2017 ([id number]) 26037 EST. P ATIENT, LEVEL IV Diagnosis: Diverticulitis of large intestine without perforation or abscess without bleeding[ICD10: K57.32] Diagnosis: Nausea[ICD10: R11.0] Maile Recinos MD, [facility] CPT-4: 93335 11/22/2017 ([id number]) Miscellaneou s no charge Diagnosis: Laceration without foreign body of right forearm, subsequent encounter[ICD10: S51.811D] Dominique Recinos MD, [facility] CPT-4: 10652 10/16/2017 ([id number]) Miscellaneou s no charge Diagnosis: Laceration without foreign body of right forearm, subsequent encounter[ICD10: S51.811D] Dominique Recinos MD, [facility] CPT-4: 98764 10/14/2017 ([id number]) Miscellaneou s no charge Diagnosis: Laceration without foreign body of right forearm, subsequent encounter[ICD10: S51.811D] Dominique Recinos MD, [facility] CPT-4: 20588 10/09/2017 ([id number]) 54691 EST. P ATIENT, LEVEL III Diagnosis: Type 2 diabetes mellitus with hyperglycemia[ICD10: E11.65] Dominique Recinos MD, [facility] CPT-4: 99683 10/07/2017 ([id number]) 96213 EST. P ATIENT, LEVEL III Diagnosis: Type 2 diabetes mellitus with hyperglycemia[ICD10: E11.65] Fatmata Recinos MD, [facility] CPT-4: 57131 09/16/2017 ([id number]) 13159 EST. P ATIENT, LEVEL III Diagnosis: Essential (primary) hypertension[ICD10: I10] Dominique Recinos MD, C CPT-4: 17041 09/09/2017 ([id number]) Misshimon campbell no charge Diagnosis: Type 1 diabetes mellitus without complications[ICD10: E10.9] Fatmata Recinos MD, [facility] CPT-4: 23987 07/22/2017 ([id number]) 17538 EST. P ATIENT, LEVEL IV Diagnosis: Type 1 diabetes mellitus without complications[ICD10: E10.9] Diagnosis: Mixed hyperlipidemia[ICD10: E78.2] Diagnosis: Essential (primary) hypertension[ICD10: I10] Dominique Recinos MD, C CPT-4: 43126 07/16/2017 ([id number]) 01506 EST. P ATIENT, LEVEL III Diagnosis: Cough[ICD10: R05] Diagnosis: Acute recurrent maxillary sinusitis[ICD10: J01.01] Maile Recinos MD, [facility] CPT-4: 36659 06/14/2017 ([id number]) 11611 EST. P ATIENT, LEVEL IV Diagnosis: Type 1 diabetes mellitus without complications[ICD10: E10.9] Diagnosis: Essential (primary) hypertension[ICD10: I10] Dominique Recinos MD, C CPT-4: 23800 06/10/2017 ([id number]) 77784 EST. P ATIENT, LEVEL IV Diagnosis: Essential (primary) hypertension[ICD10: I10] Diagnosis: Type 1 diabetes mellitus without complications[ICD10: E10.9] Dominique Recinos MD, [facility] CPT-4: 01471 05/13/2017 25036 EST. PATIENT, LEVEL III Diagnosis: Sciatica, right side[ICD10: M54.31] Diagnosis: Low back pain[ICD10: M54.5] Fatmata Recinos MD, [facility] CPT-4: 21408 03/26/2017 ([id number]) 09743 EST. P ATIENT, LEVEL III Diagnosis: Type 1 diabetes mellitus without complications[ICD10: E10.9] Diagnosis: Essential (primary) hypertension[ICD10: I10] Dominique Recinos MD, C CPT-4: 78586 02/19/2017 ([id number]) 82607 EST. P ATIENT, LEVEL IV Diagnosis: Fever presenting with conditions classified elsewhere[ICD10: R50.81] Diagnosis: Weakness[ICD10: R53.1] Diagnosis: Frequency of micturition[ICD10: R35.0] Diagnosis: Type 1 diabetes mellitus without complications[ICD10: E10.9] Dominique Recinos MD, [facility] CPT-4: 02720 01/16/2017 ([id number]) 92344 EST. P ATIENT, LEVEL IV Diagnosis: Type 1 diabetes mellitus without complications[ICD10: E10.9] Diagnosis: Essential (primary) hypertension[ICD10: I10] Dominique Recinos MD, C CPT-4: 56058 01/08/2017 ([id number]) 98817 EST. P ATIENT, LEVEL IV Diagnosis: Essential (primary) hypertension[ICD10: I10] Diagnosis: Type 1 diabetes mellitus without complications[ICD10: E10.9] Dominique Recinos MD, [facility] CPT-4: 24850 11/21/2016 ([id number]) 47196 EST. 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 P ATIENT, LEVEL III Diagnosis: Chronic obstructive pulmonary disease with (acute) exacerbation[ICD10: J44.1] Diagnosis: Cough[ICD10: R05] Maile Recinos MD, [facility] CPT-4: 45253 10/08/2016 ([id number]) Miscellaneou s no charge Diagnosis: Cough[ICD10: R05] Diagnosis: Chronic obstructive pulmonary disease with (acute) exacerbation[ICD10: J44.1] Maile Recinos MD, [facility] CPT-4: 13953 10/01/2016 ([id number]) 76633 EST. P ATIENT, LEVEL III Diagnosis: Cough[ICD10: R05] Diagnosis: Acute bronchitis, unspecified[ICD10: J20.9] Maile Recinos MD, [facility] CPT-4: 36647 09/27/2016 ([id number]) 93472 EST. P ATIENT, LEVEL III Diagnosis: Type 1 diabetes mellitus without complications[ICD10: E10.9] Dominique Recinos MD, [facility] CPT-4: 69639 07/19/2016 ([id number]) 47291 EST. P ATIENT, LEVEL IV Diagnosis: Essential (primary) hypertension[ICD10: I10] Diagnosis: Type 1 diabetes mellitus without complications[ICD10: E10.9] Diagnosis: Other allergic rhinitis[ICD10: J30.89] Diagnosis: Acute laryngopharyngitis[ICD10: J06.0] Dominique Recinos MD, [facility] CPT-4: 63500 07/09/2016 ([id number]) 66331 EST. P ATIENT, LEVEL IV Diagnosis: Essential (primary) hypertension[ICD10: I10] Diagnosis: Type 1 diabetes mellitus without complications[ICD10: E10.9] Diagnosis: Mixed hyperlipidemia[ICD10: E78.2] Dominique Recinos MD, [facility] CPT- 4: 86211 06/06/2016 66581 EST. PATIENT, LEVEL III Diagnosis: Other allergic rhinitis[ICD10: J30.89] Diagnosis: Acute laryngopharyngitis[ICD10: J06.0] Fatmata Recinos MD, [facility] CPT-4: 80797 04/03/2016 ([id number]) 84645 EST. P ATIENT, LEVEL IV Diagnosis: Type 1 diabetes mellitus without complications[ICD10: E10.9] Diagnosis: Essential (primary) hypertension[ICD10: I10] Diagnosis: Pain in right hand[ICD10: M79.641] Dominique Recinos MD, [facility] CPT- 4: 27178 12/26/2015 ([id number]) 70521 EST. P ATIENT, LEVEL IV Diagnosis: Type 1 diabetes mellitus without complications[ICD10: E10.9] Diagnosis: Essential (primary) hypertension[ICD10: I10] Dominique Recinos MD[facility] CPT-4: 44459 09/19/2015 ([id number]) 77509 EST. P ATIENT, LEVEL IV Diagnosis: Essential (primary) hypertension[ICD10: I10] Diagnosis: Mixed hyperlipidemia[ICD10: E78.2] Diagnosis: Type 1 diabetes mellitus without complications[ICD10: E10.9] [facility] CPT-4: 54609 07/19/2015 ([id number]) 39524 EST. 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 P ATIENT, LEVEL IV Diagnosis: ESSENTIAL HYPERTENSION[ICD9: 401.9] Diagnosis: DIABETES TYPE II[ICD9: 250.00] Diagnosis: FALL FROM LADDER[ICD9: E881.0] Diagnosis: Right hip pain[ICD9: 719.45] Diagnosis: Left hand pain[ICD9: 729.5] Diagnosis: Sacroiliac joint pain[ICD9: 724.6] [facility] CPT- 4: 26041 11/15/2014 ([id number]) OFFICE VISI T, NEW - LEVEL 4 Diagnosis: DIABETES TYPE II[ICD9: 250.00] Diagnosis: ESSENTIAL HYPERTENSION[ICD9: 401.9] Diagnosis: HYPERLIPIDEMIA[ICD9: 272.4] [facility] CPT-4: 21790 08/13/2014 Plan of Care Planned Activity Notes [...] less controlled. 04/28/2018 Appointment: Dominique Recinos WPtel: [facility] (15 min) Moderate 04/28/2018 Patient Education: Patient [...] while seated. 12/25/2017 Appointment: Dominique Recinos WPtel: [facility] (15 min) Moderate 12/25/2017 Patient Education: Patient Medication Summary Completed 12/25/2017 Patient Education: Diabetes Completed 12/25/2017 Appointment: Dominique Recinos WPtel: [phone] [facility] (15 min) Moderate 12/09/2017 Visit Plan: Diverticulitis - rx for antibiotic sent to pt's pharmacy - pt advised to avoid seeds, nuts, popcorn, or any other food which has been proven to upset the pt's stomach. 11/22/2017 Appointment: Maile Randolph WPtel: [phone] [phone] (15 min) Moderate 11/22/2017 Patient Education: Patient [...] blood glucose. 10/07/2017 App[facility]ment[phone] (15 min) Moderate 10/07/2017 Patient Education: [...] clinic. 09/16/2017 Appointment: Fatmata Spann WPtel: [phone] [facility] [place] (15 min) Moderate 09/16/2017 Patient Education: [...] at home. 09/09/2017 Appointment: Dominique Recinos WPtel: [phone] [facility] [place] (15 min) Moderate 09/09/2017 Patient Education: Patient Medication Summary Completed 09/09/2017 App[facility]ment: [phone] [place] (15 min) Moderate 09/06/2017 Appointment: [facility]el[phone] [facility] [place] (15 min) Moderate 09/05/2017 Appointment: [facility]ata Spann [facility]el[phone] [facility] [place] (15 min) Moderate 07/22/2017 Patient Education: [...] less controlled. ipro placed today - by MYCOLOGIST - pt to RTC on Saturday for [...] less controlled. ipro placed today - by MYCOLOGIST - pt to RTC on Saturday for [...] to medications. 07/16/2017 Appointment: Dominique Recinos WPtel: [address] [place], [place] [address] (15 min) Moderate 07/16/2017 Patient Education: Patient Medication Summary Completed 07/16/2017 Visit Plan: Sinusitis - Pt has acut e infection - pain in face, maxillary region, Pt informed to use decongestant, RX given to patient, sinus rinses also recommended. Call if symptoms do not show improvement. 06/14/2017 Appointment: Maile Rnadolph WPtel: [phone] [phone] (30 min) Complex 06/14/2017 Patient Education: Patient [...] home. 06/10/2017 Appointment: Dominique Recinos WPtel: [phone] [facility] (15 min) Moderate 06/10/2017 Patient Education: Patient Medication Summary Completed 06/10/2017 Appointment: Fatmata Spann WPtel: [phone] [facility] (30 min) Complex 06/03/2017 Visit Plan: [...] controlled. 05/13/2017 Appointment: Dominique Recinos WPtel: [phone] [facility] (15 min) Moderate 05/13/2017 Patient Education: Patient Medication Summary Completed 05/13/2017 Appointment: [facility]Ptel[phone] [facility] [place] (30 min) Complex 05/03/2017 Appointment: Fatmata Spann [facility]Ptel[phone] [facility] [place] (15 min) Moderate 04/12/2017 Appointment: Domin[facility]inos WPtel[facility] [phone] [facility] [place] (15 min) Moderate 04/11/2017 Appointment: Dominique Recinos WPtel: [phone] [facility] [place] (15 min) Moderate 04/10/2017 Appointment: Dominique Recinos WPtel: [phone] [facility] [place] (15 min) Moderate 04/02/2017 Visit Plan: [...] injection. 03/26/2017 Appointment: Fatmata Spann WPtel: [phone] [facility] [place] (30 min) Complex 03/26/2017 Appointment: Dominique Recinos WPtel: [phone] [facility] [place] (15 min) Moderate 03/26/2017 Patient Education: [...] at home. 02/19/2017 Appointment: Dominique Recinos WPtel: [facility] (15 min) Moderate 02/19/2017 Patient Education: Patient Medication Summary Completed 02/19/2017 Patient Education: Hypertension Completed 02/19/2017 Appointment: Dominique Recinos WPtel: [facility] (15 min) Moderate 02/12/2017 Visit Plan: [...] above 100F. 01/16/2017 Appointment: Dominique Recinos WPtel: [email or web address] ([facility] min) Moderate 01/16/2017 Patient Education: Patient [...] home. 01/08/2017 Appointment: Dominique Recinos WPtel: [phone] [facility] (15 min) Moderate 01/08/2017 Patient Education: Patient Medication Summary Completed 01/08/2017 Patient Education: Hypertension Completed 01/08/2017 Appointment: Dominique Recinos WPtel: [phone] [facility] (15 min) Moderate 12/31/2016 Appointment: Dominique Recinos WPtel: [phone] [facility] (15 min) Moderate 12/18/2016 Visit Plan: Hypertension [...] less controlled. 11/21/2016 Appointment: Dominique Recinos WPtel: [address] [facility] (15 min) Moderate 11/21/2016 Patient Education: Patient [...] potatoes, creamy coleslaw, etc. -- referral to air pollution specialist. Hyperlipidemia - pt has been counseled [...] etc. 10/16/2016 Appointment: Dominique Recinos WPtel: [phone] [facility] (15 min) Moderate 10/16/2016 Patient Education: Patient Medication Summary Completed 10/16/2016 Patient Education: Hypertension Completed 10/16/2016 Patient Education: Patient Medication Summary Completed 10/09/2016 Care Plan: Free T4 Pending 10/09/2016 Visit Plan: COPD exacerbation-cough -symptoms resolved-call if symptoms return-monitor blood sugars closely for the next few days and discussed diet. 10/08/2016 Appointment: Maile Randolph WPtel: [phone] (15 min) Moderate 10/08/2016 Patient Education: Patient Medication Summary Completed 10/08/2016 Visit Plan: COPD EXACERBATION - SUPPORT ASSOCIATE D is a chronic problem for this [...] changes. 10/01/2016 Appointment: Maile Randolph WPtel: [phone] [phone] (30 min) Complex 10/01/2016 Patient Education: Patient Medication Summary Completed 10/01/2016 Visit Plan: Bronchitis - acute case of bronchitis identified. Pt has been given antibiotics, breathing treatments as appropriate, and pt has been instructed to call if symptoms are not improved, or if symptoms acutely worsen. 09/27/2016 Appointment: Maile Randolph WPtel: [phone] [phone] (30 min) Complex 09/27/2016 Patient Education: Patient [...] less controlled. 07/19/2016 Appointment: Dominique Recinos WPtel: [facility] [place] (15 min) Moderate 07/19/2016 Patient Education: Patient [...] surrogate. 07/10/2016 Appointment: Fatmata Spann WPtel: [phone] [facility] [facility] - Annual Wellness Visit 07/10/2016 Patient [...] improving 07/09/2016 Appointment: Dominique Recinos WPtel: [phone] [facility] [place] (15 min) Moderate 07/09/2016 Patient Education: Patient Medication Summary Completed 07/09/2016 Patient Education: Hypertension Completed 07/09/2016 Appointment: Dominique Recinos WPtel: [phone] [facility] [place] (15 min) Moderate 06/26/2016 Visit Plan: [...] dications. 06/06/2016 Appointment: Domin[facility] Recinos WPtel: [phone] [facility] [place] (15 min) Moderate 06/06/2016 Patient Education: Patient Medication Summary Completed 06/06/2016 Appointment: Dominique Recinos WPtel: [phone] [facility] (15 min) Moderate 04/30/2016 Visit Plan: URI [...] spray. 04/03/2016 Appointment: Fatmata Spann WPtel: [phone] [facility] (30 min) Complex 04/03/2016 Patient Education: Patient [...] Completed 12/26/2015 Appointment: Dominique Recinos WPtel: [phone] [facility] (15 min) Moderate 12/19/2015 Visit Plan: Diabetes [...] home. 09/19/2015 Appointment: Dominique Recinos WPtel: [phone] [facility] (15 min) Moderate 09/19/2015 Patient Education: Patient [...] me dications. 07/19/2015 Appointment: Dominique Recinos WPtel: [phone] [facility] (15 min) Moderate 07/19/2015 Patient Education: [...] Back pain - referral to [facility] physical therapy for further eval and treat. 03/22/2015 Appointment: Dominique Recinos WPtel: [phone] [facility] (15 min) Moderate 03/22/2015 Patient Education: Patient Medication Summary Completed 03/22/2015 Care Plan: Referral Order SNOMED-CT : [id number] Ordered 03/22/2015 Visit Plan: Hypertension - well [...] me dications. 08/13/2014 Appointment: Dominique Recinos WPtel: [facility] [place] [place] ([place] New Patient 08/13/2014 Patient [...] Diabetes Mellitus - controlled - [facility] I have recommended for the [...] potatoes, creamy coleslaw, etc. -- referral to air pollution specialist. Hyperlipidemia - pt has been counseled [...] refer Nathalia for diabetic education at the [facility]. Increase the protein in your diet. [...] show improvement. two old goats - from [employer] and home . Hypertension - well [...] less controlled. ipro placed today - by MYCOLOGIST - pt to RTC on Saturday for [...] less controlled. ipro placed today - by MYCOLOGIST - pt to RTC on Saturday for [...] Back pain - referral to [facility] physical therapy for further eval and treat.
--- OUTSIDE RECORDS SUMMARY | 2019-06-14 17:09 | XMS REPORT | CCD ---
Author Author Nathalia Recinos Organization [facility] Address [address] [place] [address] Phone Care Team Providers Care Ct Technician Name Role Phone PP Unavailable CCM Unavailable Summary Purpose Interface Exchange Insurance Providers Payer name Policy type / Coverage type Covered alliance party ID Effective Begin Date Effective End Date WPS Medicare Part B Medicare Part B [id number] Unknown [facility] ica Part B [id number] Un known Family history Mother Diagnosis Age At Onset No Family Disease Entered N/A Father Diagnosis Age At Onset Heart Attack Unknown Diabetes Unknown Social History Social History Element Codes Description Effective Dates Number of children Unknown 2 Sons, 5 grandchildren, 11 great grandchildren 01/08/2017 Marital status Unknown W crystal [place] in [address]606/06/[address]: 666237015 Never smoker 08/13/[address]: 153887512 Never drinks alcohol 08/13/2014 Allergies, Adverse Reactions, [...] Date Stop Date Sta tus Fill Instructions Atacand 32 mg tablet RxNorm: 190893 1 Tablet(s) PO daily 05/12/2018 07/10/2018 Active This is to replace benicar Atacand 32 mg tablet RxNorm: 098936 1 Tablet(s) PO daily 05/12/2018 05/11/2018 Inactive This is to replace benicar Benicar 40 mg tablet RxNorm: 155380 TAKE ONE TABLET BY MOUTH DAILY 05/07/2018 05/06/2018 In active Benicar 40 mg tablet RxNorm: 653953 Tablet(s) TAKE ONE TABLET BY MOUTH DAILY 05/07/2018 05/11/2018 In active Zoloft 50 mg tablet RxNorm: 445512 TAKE ONE TABLET BY MOUTH DAILY 04/28/2018 04/22/2019 Ac tive gabapentin 100 mg ca psule RxNorm: 987550 TAKE ONE CAPSULE BY M OUTH THREE TIMES A DAY 04/09/2018 07/16/2018 Ac tive Novolog U-100 Insuli n aspart 100 unit/mL subcutaneous solution RxNorm: 346115 SSI 5 units over 150 and for every additional 50 add 2 units Unit(s) SQ TID adjust as needed for glucose control 12/25/2017 07/22/2018 Active Cipro 500 mg tablet RxNorm: 614743 1 Tablet(s) PO BID 11/22/2017 12/01/2017 Inactive clotrimazole 1 % top ical cream RxNorm: 117759 1 Application TOP BID 11/22/2017 12/05/2017 Inactive Flagyl 500 mg tablet RxNorm: 182115 1 Tablet(s) PO TID 11/22/2017 12/01/2017 Inactive Lantus U-100 Insulin 100 unit/mL subcutaneous solution RxNorm: 379011 17 Unit(s) SQ QAM 11/11/2017 07/08/2018 Active Novolog U-100 Insuli n aspart 100 unit/mL subcutaneous solution RxNorm: 061554 SSI 5 units over 150 and for every additional 50 add 2 units Unit(s) SQ TID adjust as needed for glucose control 11/11/2017 12/24/2017 Inactive gabapentin 100 mg ca psule RxNorm: 893645 TAKE ONE CAPSULE BY M OUTH THREE TIMES A DAY 11/05/2017 02/11/2018 Inactive Kenalog 40 mg/mL fanny pension for injection RxNorm: 1592760 1 Milliliter(s) Inj 06/14/2017 06/14/2017 In active Flonase Allergy Reli ef 50 mcg/actuation nasal spray,suspension RxNorm: 6894251 2 [place] NASAL daily 06/14/2017 06/20/2017 Inactive doxycycline hyclate 100 mg tablet RxNorm: 972195 1 Tablet(s) PO BID 06/14/2017 06/20/2017 Inactive Lantus U-100 Insulin 100 unit/mL subcutaneous solution RxNorm: 660544 17 Unit(s) SQ QAM 06/10/2017 07/09/2017 Inactive gabapentin 100 mg ca psule RxNorm: 329781 TAKE ONE CAPSULE BY M OUT THREE TIMES A DAY 05/23/2017 08/29/2017 Inactive Lantus U-100 Insulin 100 unit/mL subcutaneous solution RxNorm: 395173 15 Unit(s) SQ QAM 05/14/2017 06/09/2017 Inactive Novolog U-100 Insuli n aspart 100 unit/mL subcutaneous solution RxNorm: 728361 SSI 5 units over 150 and for every additional 50 add 2 units Unit(s) SQ TID adjust as needed for glucose control 04/24/2017 11/10/2017 Inactive Zocor 20 mg tablet RxNorm: 934248 1 Tablet(s) PO daily 04/05/2017 03/30/2018 Inactive Kenalog 40 mg/mL fanny pension for injection RxNorm: 3972863 1 Milliliter(s) Inj 03/26/2017 03/26/2017 In active Novolog 100 unit/mL subcutaneous solution RxNorm: 642819 SSI 5 units over 150 and for every additional 50 add 2 units Unit(s) SQ TID adjust as needed for glucose control 02/19/2017 04/23/2017 Inactive Lantus 100 unit/mL s ubcutaneous solution RxNorm: 729737 10 Unit(s) SQ QAM 02/19/2017 05/13/2017 In active ceftriaxone 500 mg s olution for injection RxNorm: 9462064 Inj 01/16/2017 01/16/2017 Inactive Lantus 100 unit/mL s ubcutaneous solution RxNorm: 536437 7 Unit(s) SQ QAM 01/16/2017 02/18/2017 In active Lantus 100 unit/mL s ubcutaneous solution RxNorm: 061035 10 Unit(s) SQ daily 01/08/2017 05/12/2017 In active gabapentin 100 mg ca psule RxNorm: 811807 TAKE ONE CAPSULE BY M OUTH THREE TIMES A DAY 11/30/2016 02/03/2017 Inactive Zoloft 50 mg tablet RxNorm: 185516 TAKE ONE TABLET BY MOUTH DAILY 10/30/2016 04/27/2017 In active Zocor 20 mg tablet RxNorm: 884825 1 Tablet(s) PO daily 10/16/2016 04/04/2017 Inactive stop the 40mg dose of zocor, start on 20 mg Lantus 100 unit/mL s ubcutaneous solution RxNorm: 358671 15 Unit(s) SQ daily 10/16/2016 01/07/2017 In active Novolog 100 unit/mL subcutaneous solution RxNorm: 813603 SSI 5 units over 150 and for every additional 50 add 2 units Unit(s) SQ TID adjust as needed for glucose control 10/16/2016 02/18/2017 Inactive prednisone 20 mg tablet RxNorm: 031666 1 Tablet(s) PO BID 10/01/2016 10/05/2016 Inactive Kenalog 40 mg/mL fanny pension for injection RxNorm: 9424207 1 Milliliter(s) Inj 09/27/2016 09/27/2016 In active Zithromax Z-Kishor 250 mg tablet RxNorm: 404247 1 Tablet(s) PO UD 09/27/2016 10/01/2016 Inactive ceftriaxone 500 mg s olution for injection RxNorm: 1107299 1 Milliliter(s) Inj 09/27/2016 09/27/2016 In active Augmentin 500 mg-125 mg tablet RxNorm: 431571 1 Tablet(s) PO BID 09/22/2016 09/26/2016 Inactive Tessalon Perles 100 mg capsule RxNorm: 722700 1 Capsule(s) PO Q8 AK N as needed 09/22/2016 04/27/2018 In active metoprolol tartrate 50 mg tablet RxNorm: 222874 TAKE ONE TABLET BY MO UTH TWICE A DAY 08/02/2016 07/27/2017 Inactive Novolog 100 unit/mL subcutaneous solution RxNorm: 493728 10 Unit(s) SQ TID adj ust as needed for glucose control 07/19/2016 10/15/2016 Inactive Humalog 100 unit/mL subcutaneous solution RxNorm: 929099 INJECT 10 UNITS UNDER THE SKIN BEFORE EACH MEAL 07/16/2016 07/16/2016 Inactive Kenalog 40 mg/mL fanny pension for injection RxNorm: 7988940 1 Milliliter(s) Inj 07/09/2016 07/09/2016 In active ceftriaxone 500 mg s olution for injection RxNorm: 5245839 Inj 07/09/2016 07/09/2016 Inactive Lantus 100 unit/mL s ubcutaneous solution RxNorm: 890264 Unit(s) INJECT 13 UNI TS UNDER THE SKIN IN THE MORNING 06/06/2016 10/15/2016 Inactive Zoloft 50 mg tablet RxNorm: 173877 TAKE ONE TABLET BY MOUTH DAILY 04/27/2016 07/25/2016 In active Lantus 100 unit/mL s ubcutaneous solution RxNorm: 131734 INJECT 20 UNITS UNDER THE SKIN AT BEDTIME 04/27/2016 06/05/2016 Inactive amoxicillin 500 mg c apsule RxNorm: 969043 1 Capsule(s) PO TID 04/03/2016 04/12/2016 Inactive Zyrtec 10 mg tablet RxNorm: 7458606 1 Tablet(s) PO daily 04/03/2016 05/02/2016 Inactive hydrochlorothiazide 12.5 mg capsule RxNorm: 698679 TAKE ONE CAPSULE BY M OUTH DAILY 03/12/2016 12/06/2016 In active Benicar 40 mg tablet RxNorm: 017260 1 Tablet(s) PO daily 02/28/2016 04/27/2016 Inactive Benicar 40 mg tablet RxNorm: 694187 1 Tablet(s) PO daily 02/20/2016 02/27/2016 Inactive gabapentin 100 mg ca psule RxNorm: 589664 TAKE ONE CAPSULE BY M OUTH THREE TIMES A DAY 01/09/2016 04/16/2016 Inactive metoprolol tartrate 50 mg tablet RxNorm: 896574 TAKE ONE TABLET BY MO UTH TWICE A DAY 01/09/2016 04/07/2016 Inactive Humalog 100 unit/mL subcutaneous solution RxNorm: 924687 5-10 Unit(s) SQ AC 07/19/2015 07/18/2016 In active Lantus 100 unit/mL s ubcutaneous solution RxNorm: 996724 13 Unit(s) SQ QAM 07/19/2015 01/15/2017 In active Lantus 100 unit/mL s ubcutaneous solution RxNorm: 599879 20 Unit(s) SQ QHS 07/14/2015 07/18/2015 In active Zoloft 50 mg tablet RxNorm: 276481 1 Tablet(s) PO daily 05/19/2015 09/15/2015 Inactive Humalog 100 unit/mL subcutaneous solution RxNorm: 100511 10 Unit(s) SQ AC 05/11/2015 07/18/2015 In active metoprolol tartrate 50 mg tablet RxNorm: 492282 1 Tablet(s) PO BID 04/28/2015 08/25/2015 Inactive Lantus 100 unit/mL s ubcutaneous solution RxNorm: 085917 20 Unit(s) SQ QHS 04/28/2015 07/13/2015 In active Vesicare 10 mg tablet RxNorm: 182102 1 Tablet(s) PO QPM 03/22/2015 09/18/2015 Inactive hydrochlorothiazide 12.5 mg capsule RxNorm: 343904 1 Tablet(s) PO daily 01/04/2015 12/29/2015 In active gabapentin 100 mg ca psule RxNorm: 997739 1 Capsule(s) PO TID 11/29/2014 03/28/2015 Inactive [...] Date Active aspirin 81 mg tablet RxNorm: 830298 1 Tablet(s) PO daily No Start Date Active doxazosin 2 mg tablet RxNorm: 591961 1 Tablet(s) PO QHS No Start Date Active Fish Oil oral RxNorm: 0053698 oral No Start Date Active multivitamin capsule RxNorm: 1 Capsule(s) PO daily No Start Date Active Humalog 100 unit/mL subcutaneous solution RxNorm: 723251 Unit(s) SQ No Start Date 05/10/2015 Inactive Zoloft 50 mg tablet RxNorm: 738385 1 Tablet(s) PO daily No Start Date 05/18/2015 Inactive gabapentin 100 mg ca psule RxNorm: 306389 1 Capsule(s) PO daily No Start Date 11/28/2014 Inactive metoprolol tartrate 50 mg tablet RxNorm: 459297 1 Tablet(s) PO TID No Start Date 04/27/2015 Inactive Benicar 40 mg tablet RxNorm: 489555 1 Tablet(s) PO daily No Start Date 02/19/2016 Inactive hydrochlorothiazide 25 mg tablet RxNorm: 442336 1 Tablet(s) PO daily No Start Date 01/03/2015 Inactive Lantus 100 unit/mL s ubcutaneous solution RxNorm: 984615 13 Unit(s) SQ No Start Date 04/27/2015 Inactive Zocor 40 mg tablet RxNorm: 928977 1 Tablet(s) PO daily No Start Date 10/15/2016 Inactive Medication Administered Medication Codes Instruc tions Start Date Status Kenalog 40 mg/mL suspension for injection RxNorm: 4497371 1Milliliter 06/14/2017 N o longer Active Kenalog 40 mg/mL suspension for injection RxNorm: 6068024 1Milliliter 03/26/2017 N o longer Active ceftriaxone 500 mg solution for injection RxNorm: 6015354 01/16/2017 No longer A ctive Kenalog 40 mg/mL suspension for injection RxNorm: 4690384 1Milliliter 09/27/2016 N o longer Active ceftriaxone 500 mg solution for injection RxNorm: 0443427 1Milliliter 09/27/2016 N o longer Active Kenalog 40 mg/mL suspension for injection RxNorm: 3670803 1Milliliter 07/09/2016 N o longer Active ceftriaxone 500 mg solution for injection RxNorm: 4724238 07/09/2016 No longer A ctive Immunizations Vaccine [...] Item Item Code Result Date Comp Metabolic Jbt689 NA 137 mEq/L 04/28/2018 Comp Metabolic Rre066 K 4.1 mEq/L 04/28/2018 Comp Metabolic Ogt978 CL 101 mEq/L 04/28/2018 Comp Metabolic Ceg396 CO2 28.0 mEq/L 04/28/2018 Comp Metabolic Edb943 AN ION GAP 12 04/28/2018 Comp Metabolic Fvw154 GL UCOSE 195 mg/dL 04/28/2018 Comp Metabolic Jlg231 Cr eat 0.7 mg/dL 04/28/2018 Comp Metabolic Wlc569 eG FR 81 ml/min/1.73m2 04/28 Comp Metabolic Zbb245 BUN 24 mg/dL 04/28/2018 Comp Metabolic Vjk706 B/ C Ratio 33.3 Ratio 04/28/2018 Comp Metabolic Lis336 CA LCIUM 9.4 mg/dL 04/28/2018 Comp Metabolic Qsv858 AL K PHOS 72 U/L 04/28/2018 Comp Metabolic Eah263 T(SGOT) 15 U/L 04/28/2018 Comp Metabolic Mew971 AL T(SGPT) 11 U/L 04/28/2018 Comp Metabolic Xtc977 BI LI T 0.6 mg/dL 04/28/2018 Comp Metabolic Usq693 AL BUMIN 4.0 g/dL 04/28/2018 Comp Metabolic Hju610 TP RO 6.1 g/dL 04/28/2018 Comp Metabolic Qoi153 GL OB 2.1 g/dL 04/28/2018 Comp Metabolic Dms890 A/ G Ratio 2.0 Ratio 04/28/2018 Comp Metabolic Jgy544 Os mo 283 mOsmo 04/28/2018 %Hba1C Wid976 % HbA1c 66315-6 7.5 % 04/28/2018 %Hba1C Jms681 Gluc Ave 169 mg/dL 04/28/2018 %Hba1C Hcy938 % HbA1c 28924-5 7.1 % 12/25/2017 %Hba1C Etg065 Gluc Ave 157 mg/dL 12/25/2017 Comp Metabolic Wtr313 NA 139 mEq/L 12/25/2017 Comp Metabolic Dee673 K 4.1 mEq/L 12/25/2017 Comp Metabolic Lmp665 CL 104 mEq/L 12/25/2017 Comp Metabolic Etd309 CO2 28.0 mEq/L 12/25/2017 Comp Metabolic Klk711 AN ION GAP 11 12/25/2017 Comp Metabolic Exd173 GL UCOSE 129 mg/dL 12/25/2017 Comp Metabolic Tcs817 Cr eat 0.7 mg/dL 12/25/2017 Comp Metabolic Yof793 eG FR 83 ml/min/1.73m2 12/25 Comp Metabolic Ekj188 BUN 22 mg/dL 12/25/2017 Comp Metabolic Ner782 B/ C Ratio 31.0 Ratio 12/25/2017 Comp Metabolic Vph898 CA LCIUM 9.4 mg/dL 12/25/2017 Comp Metabolic Zyz861 AL K PHOS 70 U/L 12/25/2017 Comp Metabolic Mol455 T(SGOT) 16 U/L 12/25/2017 Comp Metabolic Lmw884 AL T(SGPT) 12 U/L 12/25/2017 Comp Metabolic Uyp013 BI LI T 0.5 mg/dL 12/25/2017 Comp Metabolic Pjv280 AL BUMIN 4.2 g/dL 12/25/2017 Comp Metabolic Ovv256 TP RO 6.1 g/dL 12/25/2017 Comp Metabolic Ngk279 GL OB 1.9 g/dL 12/25/2017 Comp Metabolic Ero071 A/ G Ratio 2.1 Ratio 12/25/2017 Comp Metabolic Fnc760 Os mo 283 mOsmo 12/25/2017 %Hba1C Hsa679 % HbA1c 98520-1 8.0 % 05/13/2017 %Hba1C Icl446 Gluc Ave 183 mg/dL 05/13/2017 Comp Metabolic Jpz335 NA 135 mEq/L 05/13/2017 Comp Metabolic Jwk133 K 3.8 mEq/L 05/13/2017 Comp Metabolic Bry416 CL 99 mEq/L 05/13/2017 Comp Metabolic Wml132 CO2 29.0 mEq/L 05/13/2017 Comp Metabolic Tjl719 AN ION GAP 11 05/13/2017 Comp Metabolic Mvq179 GL UCOSE 155 mg/dL 05/13/2017 Comp Metabolic Rmx599 Cr eat 0.7 mg/dL 05/13/2017 Comp Metabolic Eut585 eG FR 90 ml/min/1.73m2 05/13 Comp Metabolic Ens030 BUN 18 mg/dL 05/13/2017 Comp Metabolic Rmk040 B/ C Ratio 27.3 Ratio 05/13/2017 Comp Metabolic Tdq538 CA LCIUM 8.9 mg/dL 05/13/2017 Comp Metabolic Nvp694 AL K PHOS 90 U/L 05/13/2017 Comp Metabolic Pgi803 T(SGOT) 18 U/L 05/13/2017 Comp Metabolic Ugt589 AL T(SGPT) 15 U/L 05/13/2017 Comp Metabolic Xin783 BI LI T 0.5 mg/dL 05/13/2017 Comp Metabolic Ovi618 AL BUMIN 4.0 g/dL 05/13/2017 Comp Metabolic Jvv309 TP RO 5.9 g/dL 05/13/2017 Comp Metabolic Tjr334 GL OB 1.9 g/dL 05/13/2017 Comp Metabolic Abl778 A/ G Ratio 2.1 Ratio 05/13/2017 Comp Metabolic Qrr764 Os mo 275 mOsmo 05/13/2017 Urine Culture Ucult Prel iminary NO Growth Day 1 01/18 Urine Culture Ucult Comp lete NO Growth Day 2 01/18 Free T4 Rht697 FREE T4 1.13 ng/dL 10/09/2016 Tsh Ord6 [...] 31.5 pg 10/08/2016 Cbc With Differential Ord2 [place]% 4.0 % 10/08/2016 Cbc With Differential Ord2 [...] 0.96 K/ul 10/08/2016 Cbc With Differential Ord2 [place] ABS# 0.4 K/ul 10/08/2016 Cbc With Differential Ord2 Eos ABS# 0.0 K/ul 10/08/2016 Cbc With Differential Ord2 Baso ABS# 0.0 K/ul 10/08/2016 Comp Metabolic Qfo868 NA 135 mEq/L 10/08/2016 Comp Metabolic Tfi663 K 4.3 mEq/L 10/08/2016 Comp Metabolic Gbj815 CL 98 mEq/L 10/08/2016 Comp Metabolic Dzi260 CO2 22.0 mEq/L 10/08/2016 Comp Metabolic Ack976 AN ION GAP 19 10/08/2016 Comp Metabolic Axk358 GL UCOSE 400 mg/dL 10/08/2016 Comp Metabolic Vpr718 Cr eat 0.7 mg/dL 10/08/2016 Comp Metabolic Kva772 eG FR 79 ml/min/1.73m2 10/08 Comp Metabolic Qva172 BUN 27 mg/dL 10/08/2016 Comp Metabolic Qzu832 B/ C Ratio 36.5 Ratio 10/08/2016 Comp Metabolic Yvb995 CA LCIUM 9.1 mg/dL 10/08/2016 Comp Metabolic Lte568 AL K PHOS 65 U/L 10/08/2016 Comp Metabolic Spq618 T(SGOT) 28 U/L 10/08/2016 Comp Metabolic Qwf644 AL T(SGPT) 24 U/L 10/08/2016 Comp Metabolic Lhw500 BI LI T 0.7 mg/dL 10/08/2016 Comp Metabolic Vev088 AL BUMIN 3.8 g/dL 10/08/2016 Comp Metabolic Anv957 TP RO 6.0 g/dL 10/08/2016 Comp Metabolic Bhc889 GL OB 2.2 g/dL 10/08/2016 Comp Metabolic Oqm212 A/ G Ratio 1.7 Ratio 10/08/2016 Comp Metabolic Fco577 Os mo 292 mOsmo 10/08/2016 %Hba1C Jis200 % HbA1c 70090-1 7.0 % 10/08/2016 %Hba1C Aqr567 Gluc Ave 154 mg/dL 10/08/2016 Microalbumin Pzg972 Micr oAlb <0.7 mg/dL 10/08/2016 Lipid Ord30 [...] OK? TNP:Duplicate Order 04/03/2016 C A/B FLU 5613349 Influe nza A Scr Negative 04/03/2016 C A/B FLU 2309974 Influe nza B Scr Negative 04/03/2016 Comp Metabolic Owo982 NA 138 mEq/L 09/15/2015 Comp Metabolic Khh128 K 4.4 mEq/L 09/15/2015 Comp Metabolic Pgj311 CL 103 mEq/L 09/15/2015 Comp Metabolic Rps268 CO2 29.0 mEq/L 09/15/2015 Comp Metabolic Hkr585 AN ION GAP 10 09/15/2015 Comp Metabolic Qxl787 GL UCOSE 156 mg/dL 09/15/2015 Comp Metabolic Axg184 Cr eat 0.7 mg/dL 09/15/2015 Comp Metabolic Yze357 eG FR 79 ml/min/1.73m2 09/14 Comp Metabolic Ndy705 BUN 23 mg/dL 09/15/2015 Comp Metabolic Mky300 B/ C Ratio 31.1 Ratio 09/15/2015 Comp Metabolic Kqw955 CA LCIUM 9.1 mg/dL 09/15/2015 Comp Metabolic Ulk127 AL K PHOS 58 U/L 09/15/2015 Comp Metabolic Nsw466 T(SGOT) 19 U/L 09/15/2015 Comp Metabolic Ato006 AL T(SGPT) 11 U/L 09/15/2015 Comp Metabolic Ote507 BI LI T 0.6 mg/dL 09/15/2015 Comp Metabolic Gbk503 AL BUMIN 3.9 g/dL 09/15/2015 Comp Metabolic Odt928 TP RO 5.8 g/dL 09/15/2015 Comp Metabolic Bme631 GL OB 1.9 g/dL 09/15/2015 Comp Metabolic Qyt542 A/ G Ratio 2.1 Ratio 09/15/2015 Comp Metabolic Dsz467 Os mo 283 mOsmo 09/15/2015 Cbc With [...] 30.5 pg 09/15/2015 Cbc With Differential Ord2 [place]% 10.2 % 09/15/2015 Cbc With Differential Ord2 [...] 0.86 K/ul 09/15/2015 Cbc With Differential Ord2 [place] ABS# 0.5 K/ul 09/15/2015 Cbc With Differential Ord2 Eos ABS# 0.1 K/ul 09/15/2015 Cbc With Differential Ord2 Baso ABS# 0.0 K/ul 09/15/2015 Tsh Ord6 hTSH II 0.76 uIU/mL 09/15/2015 Lipid Ord30 CHOL 139 mg/dL 09/15/2015 Lipid Ord30 HDL 57.0 mg/dl 09/15/2015 Lipid Ord30 TRIG 76 mg/dL 09/15/2015 Lipid Ord30 LDL 67 mg/dL 09/15/2015 Lipid Ord30 C/HDL 2.4 Ratio 09/15/2015 %Hba1C Iwg299 % HbA1c 03490-6 6.6 % 09/15/2015 %Hba1C Xwp335 Gluc Ave 143 mg/dL 09/15/2015 Tsh Ord6 hTSH II 0.68 uIU/mL 06/02/2015 %Hba1C Tnx695 % HbA1c 38982-6 6.5 % 06/02/2015 %Hba1C Osa671 Gluc Ave 140 mg/dL 06/02/2015 Comp Metabolic Kqq116 NA 139 mEq/L 06/02/2015 Comp Metabolic Kgh791 K 4.5 mEq/L 06/02/2015 Comp Metabolic Ufv333 CL 104 mEq/L 06/02/2015 Comp Metabolic Muj682 CO2 25.0 mEq/L 06/02/2015 Comp Metabolic Lcr275 AN ION GAP 15 06/02/2015 Comp Metabolic Loh982 GL UCOSE 123 mg/dL 06/02/2015 Comp Metabolic Pcn114 Cr eat 0.7 mg/dL 06/02/2015 Comp Metabolic Cjw832 eG FR 92 ml/min/1.73m2 06/01 Comp Metabolic Mpu026 BUN 21 mg/dL 06/02/2015 Comp Metabolic Qgc652 B/ C Ratio 32.3 Ratio 06/02/2015 Comp Metabolic Bgn458 CA LCIUM 9.5 mg/dL 06/02/2015 Comp Metabolic Zsn317 AL K PHOS 66 U/L 06/02/2015 Comp Metabolic Gqf909 T(SGOT) 19 U/L 06/02/2015 Comp Metabolic Zuw465 AL T(SGPT) 13 U/L 06/02/2015 Comp Metabolic Cuz631 BI LI T 0.5 mg/dL 06/02/2015 Comp Metabolic Tag633 AL BUMIN 4.0 g/dL 06/02/2015 Comp Metabolic Mxq228 TP RO 6.3 g/dL 06/02/2015 Comp Metabolic Xvs304 GL OB 2.3 g/dL 06/02/2015 Comp Metabolic Mzt233 A/ G Ratio 1.7 Ratio 06/02/2015 Comp Metabolic Ilf913 Os mo 282 mOsmo 06/02/2015 %Hba1C Hwg170 % HbA1c 98954-1 6.7 % 02/17/2015 %Hba1C Ipc996 Gluc Ave 146 mg/dL 02/17/2015 Comp Metabolic Zff142 NA 133 mEq/L 02/17/2015 Comp Metabolic Axe586 K 4.3 mEq/L 02/17/2015 Comp Metabolic Jch096 CL 99 mEq/L 02/17/2015 Comp Metabolic Wfq766 CO2 27.0 mEq/L 02/17/2015 Comp Metabolic Eri462 AN ION GAP 11 02/17/2015 Comp Metabolic Frr925 GL UCOSE 239 mg/dL 02/17/2015 Comp Metabolic Zre421 Cr eat 0.7 mg/dL 02/17/2015 Comp Metabolic Cgi011 eG FR 79 ml/min/1.73m2 02/17 Comp Metabolic Qbm507 BUN 24 mg/dL 02/17/2015 Comp Metabolic Kmx363 B/ C Ratio 32.4 Ratio 02/17/2015 Comp Metabolic Mtb695 CA LCIUM 9.1 mg/dL 02/17/2015 Comp Metabolic Ljx159 AL K PHOS 75 U/L 02/17/2015 Comp Metabolic Cbi870 T(SGOT) 18 U/L 02/17/2015 Comp Metabolic Qna625 AL T(SGPT) 11 U/L 02/17/2015 Comp Metabolic Rbq379 BI LI T 0.6 mg/dL 02/17/2015 Comp Metabolic Ujg806 AL BUMIN 4.2 g/dL 02/17/2015 Comp Metabolic Rnf065 TP RO 6.2 g/dL 02/17/2015 Comp Metabolic Vfc704 GL OB 2.0 g/dL 02/17/2015 Comp Metabolic Hkk215 A/ G Ratio 2.1 Ratio 02/17/2015 Comp Metabolic Vaf535 Os mo 278 mOsmo 02/17/2015 %Hba1C Vzp236 % HbA1c 78098-3 6.7 % 11/15/2014 %Hba1C Xll190 Gluc Ave 146 mg/dL 11/15/2014 Comp Metabolic Vrh538 NA 134 mEq/L 11/15/2014 Comp Metabolic Uqo299 K 4.5 mEq/L 11/15/2014 Comp Metabolic Oeb337 CL 101 mEq/L 11/15/2014 Comp Metabolic Vrx751 CO2 27.0 mEq/L 11/15/2014 Comp Metabolic Zpp403 AN ION GAP 11 11/15/2014 Comp Metabolic Igy706 GL UCOSE 293 mg/dL 11/15/2014 Comp Metabolic Efv474 Cr eat 0.7 mg/dL 11/15/2014 Comp Metabolic Sel840 eG FR 87 ml/min/1.73m2 11/15 Comp Metabolic Jve983 BUN 20 mg/dL 11/15/2014 Comp Metabolic Mgo787 B/ C Ratio 29.4 Ratio 11/15/2014 Comp Metabolic Jjs908 CA LCIUM 9.0 mg/dL 11/15/2014 Comp Metabolic Pjh236 AL K PHOS 67 U/L 11/15/2014 Comp Metabolic Bil537 T(SGOT) 17 U/L 11/15/2014 Comp Metabolic Sss334 AL T(SGPT) 10 U/L 11/15/2014 Comp Metabolic Jka177 BI LI T 0.6 mg/dL 11/15/2014 Comp Metabolic Wdh043 AL BUMIN 4.0 g/dL 11/15/2014 Comp Metabolic Plk786 TP RO 6.0 g/dL 11/15/2014 Comp Metabolic Srd655 GL OB 2.0 g/dL 11/15/2014 Comp Metabolic Zir143 A/ G Ratio 2.0 Ratio 11/15/2014 Comp Metabolic Mrc658 Os mo 282 mOsmo 11/15/2014 Review of [...] GLUC MONITOR CONT PH YS I&R CPT-4: 05569 09/16/2017 GLUCOSE MONITORING CONT CPT-4: 80001 07/16/2017 TRIAMCINOLONE ACET I [place] NOS CPT-4: J3301 06/14/2017 DRAIN/INJECT JOINT/B URSA CPT-4: 84623 03/26/2017 TRIAMCINOLONE ACET I [place] NOS CPT-4: J3301 03/26/2017 URINALYSIS NONAUTO W /O SCOPE CPT-4: 62188 01/16/2017 THER/PROPH/DIAG INJ SC/IM CPT-4: 00192 01/16/2017 ROCEPHIN, PER 250 MG CPT-4: J0696 01/16/2017 DESTRUCT PREMALG LESION CPT-4: 32267 10/16/2016 TRIAMCINOLONE ACET I [place] NOS CPT-4: J3301 09/27/2016 ROCEPHIN, PER 250 MG CPT-4: J0696 09/27/2016 PPPS, SUBSEQ VISIT CPT- 4: G0439 07/10/2016 THER/PROPH/DIAG INJ SC/IM CPT-4: 57964 07/09/2016 TRIAMCINOLONE ACET I [place] NOS CPT-4: J3301 07/09/2016 ROCEPHIN, PER 250 MG CPT-4: J0696 07/09/2016 ADMIN PNEUMOCOCCAL V ACCINE SNOMED CT: 42167674 CPT-4: G0009 02/15/2015 PNEUMOCOCCAL VACC 13 LIMA IM Formatting Model/CDA Sections, Assigned to SNOMED CT: 06282049 CPT-4: 42028Atpntpo 02/15/2015 ADMIN INFLUENZA VIRU S VAC CPT-4: G0008 12/10/2014 FLU VACC 4 LIMA 3 YRS PLUS IM Formatting Model/CDA Sections, Assigned to SNOMED CT: 57004883 CPT-4: 37513Nhpjjsx 12/10/2014 Vital Signs Date Vital 04/28/2018 Blood Pressure 1: 110/58 Code: 8480-6 BMI: 24.0 Code: 30830-8 Heart Rate 1: 56 bpm Height: 5'2" Respiratory Rate: 18 bpm SpO2: 98% Weight: 131 lbs 12/25/2017 Blood Pressure 1: 140/52 Code: 8480-6 BMI: 24.0 Code: 81737-1 Heart Rate 1: 64 bpm Height: 5'2" Respiratory Rate: 18 bpm SpO2: 96% Weight: 131 lbs 11/22/2017 Blood Pressure 1: 128/54 Code: 8480-6 BMI: 23.4 Code: 64195-7 Heart Rate 1: 62 bpm Height: 5'2" SpO2: 97% Weight: 128 lbs 10/07/2017 Blood Pressure 1: 148/68 Code: 8480-6 BMI: 23.2 Code: 12636-1 Heart Rate 1: 68 bpm Height: 5'2" SpO2: 98% Weight: 127 lbs 09/16/2017 Blood Pressure 1: 134/80 Code: 8480-6 BMI: 22.5 Code: 91617-6 Heart Rate 1: 86 bpm Height: 5'2" SpO2: 98% Weight: 123 lbs 09/09/2017 Blood Pressure 1: 150/66 Code: 8480-6 Blood Pressure 1: 138/72 Code: 8480-6 BMI: 22.9 Code: 31886-8 Heart Rate 1: 81 bpm Height: 5'2" SpO2: 98% Weight: 125 lbs 07/16/2017 Blood Pressure 1: 144/68 Code: 8480-6 BMI: 21.9 Code: 40620-1 Heart Rate 1: 73 bpm Height: 5'2" SpO2: 98% Weight: 120 lbs 06/14/2017 Blood Pressure 1: 132/64 Code: 8480-6 BMI: 22.3 Code: 82114-1 Heart Rate 1: 77 bpm Height: 5'2" SpO2: 98% Temperature: 37.0 (C ) / 98.6 (F) Weight: 122 lbs 06/10/2017 Blood Pressure 1: 134/64 Code: 8480-6 BMI: 22.5 Code: 86678-6 Heart Rate 1: 78 bpm Height: 5'2" SpO2: 95% Weight: 123 lbs 05/13/2017 Blood Pressure 1: 140/66 Code: 8480-6 BMI: 21.6 Code: 32136-2 Heart Rate 1: 80 bpm Height: 5'2" SpO2: 98% Weight: 118 lbs 03/26/2017 Blood Pressure 1: 150/78 Code: 8480-6 BMI: 23.2 Code: 49127-4 Heart Rate 1: 73 bpm Height: 5'2" SpO2: 99% Weight: 127 lbs 02/19/2017 Blood Pressure 1: 126/64 Code: 8480-6 BMI: 22.9 Code: 62155-7 Heart Rate 1: 74 bpm Height: 5'2" SpO2: 99% Weight: 125 lbs 01/16/2017 Blood Pressure 1: 136/68 Code: 8480-6 Heart Rate 1: 97 bpm Height: 5'2" Respiratory Rate: 16 bpm Temperature: 37.5 (C ) / 99.5 (F) Weight: 01/08/2017 Blood Pressure 1: 144/60 Code: 8480-6 BMI: 23.0 Code: 68655-6 Heart Rate 1: 71 bpm Height: 5'2" SpO2: 96% Weight: 126 lbs 11/21/2016 Blood Pressure 1: 150/62 Code: 8480-6 BMI: 23.2 Code: 76897-2 Heart Rate 1: 73 bpm Height: 5'2" SpO2: 94% Weight: 127 lbs 10/16/2016 Blood Pressure 1: 142/82 Code: 8480-6 BMI: 22.9 Code: 44428-6 Heart Rate 1: 80 bpm Height: 5'2" SpO2: 96% Weight: 125 lbs 10/08/2016 Blood Pressure 1: 150/72 Code: 8480-6 Heart Rate 1: 65 bpm Height: 5'2" SpO2: 98% 10/01/2016 Blood Pressure 1: 152/76 Code: 8480-6 Heart Rate 1: 69 bpm Height: 5'2" SpO2: 97% 09/27/2016 Blood Pressure 1: 122/64 Code: 8480-6 BMI: 23.3 Code: 47454-2 Heart Rate 1: 80 bpm Height: 5'2" SpO2: 98% Weight: 127 lbs 8 oz 07/19/2016 Blood Pressure 1: 118/68 Code: 8480-6 BMI: 23.0 Code: 40017-7 Heart Rate 1: 62 bpm Height: 5'2" SpO2: 97% Weight: 126 lbs 07/10/2016 Blood Pressure 1: 132/64 Code: 8480-6 BMI: 23.4 Code: 76593-5 Heart Rate 1: 82 bpm Height: 5'2" SpO2: 98% Waist Measure (cm): 76 cm Weight: 128 lbs 07/09/2016 Blood Pressure 1: 132/64 Code: 8480-6 BMI: 23.4 Code: 81210-7 Heart Rate 1: 82 bpm Height: 5'2" SpO2: 98% Temperature: 37.2 (C ) / 98.9 (F) Weight: 128 lbs 06/06/2016 Blood Pressure 1: 144/66 Code: 8480-6 BMI: 23.4 Code: 71290-7 Heart Rate 1: 77 bpm Height: 5'2" SpO2: 97% Weight: 128 lbs 04/03/2016 Blood Pressure 1: 164/70 Code: 8480-6 BMI: 24.5 Code: 10243-7 Heart Rate 1: 80 bpm Height: 5'2" SpO2: 98% Weight: 134 lbs 12/26/2015 Blood Pressure 1: 130/72 Code: 8480-6 BMI: 24.1 Code: 41323-1 Heart Rate 1: 63 bpm Height: 5'2" SpO2: 98% Weight: 132 lbs 09/19/2015 Blood Pressure 1: 140/68 Code: 8480-6 BMI: 24.2 Code: 63129-2 Heart Rate 1: 96 bpm Height: 5'2" SpO2: 98% Weight: 132 lbs 8 oz 07/19/2015 Blood Pressure 1: 128/64 Code: 8480-6 BMI: 24.2 Code: 79965-1 Heart Rate 1: 66 bpm Height: 5'2" SpO2: 98% Weight: 132 lbs 8 oz 03/22/2015 Blood Pressure 1: 128/60 Code: 8480-6 BMI: 24.0 Code: 22841-5 Heart Rate 1: 57 bpm Height: 5'2" SpO2: 98% Weight: 131 lbs 02/15/2015 Blood Pressure 1: 132/56 Code: 8480-6 BMI: 23.8 Code: 06188-6 Heart Rate 1: 70 bpm Height: 5'2" SpO2: 98% Weight: 130 lbs 11/15/2014 Blood Pressure 1: 120/78 Code: 8480-6 BMI: 24.1 Code: 90558-1 Heart Rate 1: 79 bpm Height: 5'2" SpO2: 98% Weight: 132 lbs 08/13/2014 Blood Pressure 1: 140/60 Code: 8480-6 BMI: 24.0 Code: 35405-6 Heart Rate 1: 74 bpm Height: 5'2" [...] Encounters Encounter Performer Loca tion Codes Date ([id number]) 24156 EST. P ATIENT, LEVEL IV Diagnosis: Essential (primary) hypertension[ICD10: I10] Diagnosis: Type 2 diabetes mellitus with hyperglycemia[ICD10: E11.65] Diagnosis: Trigger finger, right middle finger[ICD10: M65.331] Dominique Recinos MD, C CPT-4: 28899 04/28/2018 ([id number]) 75081 EST. P ATIENT, LEVEL IV Diagnosis: Type 2 diabetes mellitus with hyperglycemia[ICD10: E11.65] Diagnosis: Essential (primary) hypertension[ICD10: I10] Diagnosis: Localized edema[ICD10: R60.0] Dominique Recinos MD, [facility] CPT-4: 61103 12/25/2017 ([id number]) 89757 EST. P ATIENT, LEVEL IV Diagnosis: Diverticulitis of large intestine without perforation or abscess without bleeding[ICD10: K57.32] Diagnosis: Nausea[ICD10: R11.0] Maile Recinos MD, [facility] CPT-4: 32010 11/22/2017 ([id number]) Miscellaneou s no charge Diagnosis: Laceration without foreign body of right forearm, subsequent encounter[ICD10: S51.811D] Dominique Recinos MD, [facility] CPT-4: 04655 10/16/2017 ([id number]) Miscellaneou s no charge Diagnosis: Laceration without foreign body of right forearm, subsequent encounter[ICD10: S51.811D] Dominique Recinos MD, [facility] CPT-4: 51283 10/14/2017 ([id number]) Miscellaneou s no charge Diagnosis: Laceration without foreign body of right forearm, subsequent encounter[ICD10: S51.811D] Dominique Recinos MD, [facility] CPT-4: 79736 10/09/2017 ([id number]) 53867 EST. P ATIENT, LEVEL III Diagnosis: Type 2 diabetes mellitus with hyperglycemia[ICD10: E11.65] Dominique Recinos MD, [facility] CPT-4: 11708 10/07/2017 ([id number]) 70363 EST. P ATIENT, LEVEL III Diagnosis: Type 2 diabetes mellitus with hyperglycemia[ICD10: E11.65] Fatmata Recinos MD, [facility] CPT-4: 39108 09/16/2017 ([id number]) 51138 EST. P ATIENT, LEVEL III Diagnosis: Essential (primary) hypertension[ICD10: I10] Dominique Recinos MD, [facility] CPT-4: 43205 09/09/2017 ([id number]) Miscellaneou s no charge Diagnosis: Type 1 diabetes mellitus without complications[ICD10: E10.9] Fatmata Recinos MD, [facility] CPT-4: 30575 07/22/2017 ([id number]) 38579 EST. P ATIENT, LEVEL IV Diagnosis: Type 1 diabetes mellitus without complications[ICD10: E10.9] Diagnosis: Mixed hyperlipidemia[ICD10: E78.2] Diagnosis: Essential (primary) hypertension[ICD10: I10] Dominique Recinos MD, C CPT-4: 42017 07/16/2017 ([id number]) 82559 EST. P ATIENT, LEVEL III Diagnosis: Cough[ICD10: R05] Diagnosis: Acute recurrent maxillary sinusitis[ICD10: J01.01] Maile Recinos MD, [facility] CPT-4: 33809 06/14/2017 ([id number]) 74779 EST. P ATIENT, LEVEL IV Diagnosis: Type 1 diabetes mellitus without complications[ICD10: E10.9] Diagnosis: Essential (primary) hypertension[ICD10: I10] Dominique Recinos MD, C CPT-4: 21149 06/10/2017 ([id number]) 53782 EST. P ATIENT, LEVEL IV Diagnosis: Essential (primary) hypertension[ICD10: I10] Diagnosis: Type 1 diabetes mellitus without complications[ICD10: E10.9] Dominique Recinos MD, [facility] CPT-4: 61596 05/13/2017 72005 EST. PATIENT, LEVEL III Diagnosis: Sciatica, right side[ICD10: M54.31] Diagnosis: Low back pain[ICD10: M54.5] Fatmata Recinos MD, [facility] CPT-4: 41680 03/26/2017 ([id number]) 63459 EST. P ATIENT, LEVEL III Diagnosis: Type 1 diabetes mellitus without complications[ICD10: E10.9] Diagnosis: Essential (primary) hypertension[ICD10: I10] Dominique Recinos MD, C CPT-4: 21604 02/19/2017 ([id number]) 97469 EST. P ATIENT, LEVEL IV Diagnosis: Fever presenting with conditions classified elsewhere[ICD10: R50.81] Diagnosis: Weakness[ICD10: R53.1] Diagnosis: Frequency of micturition[ICD10: R35.0] Diagnosis: Type 1 diabetes mellitus without complications[ICD10: E10.9] Dominique Recinos MD, [facility] CPT-4: 46402 01/16/2017 ([id number]) 71933 EST. P ATIENT, LEVEL IV Diagnosis: Type 1 diabetes mellitus without complications[ICD10: E10.9] Diagnosis: Essential (primary) hypertension[ICD10: I10] Dominique Recinos MD, [facility] CPT-4: 12770 01/08/2017 ([id number]) 90590 EST. P ATIENT, LEVEL IV Diagnosis: Essential (primary) hypertension[ICD10: I10] Diagnosis: Type 1 diabetes mellitus without complications[ICD10: E10.9] Dominique Recinos MD, [facility] CPT-4: 39164 11/21/2016 ([id number]) 23833 EST. 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 P ATIENT, LEVEL III Diagnosis: Chronic obstructive pulmonary disease with (acute) exacerbation[ICD10: J44.1] Diagnosis: Cough[ICD10: R05] Maile Recinos MD, [facility] CPT-4: 17077 10/08/2016 ([id number]) Miscellaneou s no charge Diagnosis: Cough[ICD10: R05] Diagnosis: Chronic obstructive pulmonary disease with (acute) exacerbation[ICD10: J44.1] Maile Recinos MD, [facility] CPT-4: 04277 10/01/2016 ([id number]) 26219 EST. P ATIENT, LEVEL III Diagnosis: Cough[ICD10: R05] Diagnosis: Acute bronchitis, unspecified[ICD10: J20.9] Maile Recinos MD, [facility] CPT-4: 49431 09/27/2016 ([id number]) 24193 EST. P ATIENT, LEVEL III Diagnosis: Type 1 diabetes mellitus without complications[ICD10: E10.9] Dominique Recinos MD, [facility] CPT-4: 05587 07/19/2016 ([id number]) 50742 EST. P ATIENT, LEVEL IV Diagnosis: Essential (primary) hypertension[ICD10: I10] Diagnosis: Type 1 diabetes mellitus without complications[ICD10: E10.9] Diagnosis: Other allergic rhinitis[ICD10: J30.89] Diagnosis: Acute laryngopharyngitis[ICD10: J06.0] Dominique Recinos MD, [facility] CPT-4: 22557 07/09/2016 ([id number]) 02156 EST. P ATIENT, LEVEL IV Diagnosis: Essential (primary) hypertension[ICD10: I10] Diagnosis: Type 1 diabetes mellitus without complications[ICD10: E10.9] Diagnosis: Mixed hyperlipidemia[ICD10: E78.2] Dominique Recinos MD, [facility] CPT- 4: 75760 06/06/2016 29368 EST. PATIENT, LEVEL III Diagnosis: Other allergic rhinitis[ICD10: J30.89] Diagnosis: Acute laryngopharyngitis[ICD10: J06.0] Fatmata Recinos MD, [facility] CPT-4: 19237 04/03/2016 ([id number]) 60393 EST. P ATIENT, LEVEL IV Diagnosis: Type 1 diabetes mellitus without complications[ICD10: E10.9] Diagnosis: Essential (primary) hypertension[ICD10: I10] Diagnosis: Pain in right hand[ICD10: M79.641] Dominique Recinos MD, [facility] CPT- 4: 47196 12/26/2015 ([id number]) 49135 EST. P ATIENT, LEVEL IV Diagnosis: Type 1 diabetes mellitus without complications[ICD10: E10.9] Diagnosis: Essential (primary) hypertension[ICD10: I10] Dominique Recinos MD, [facility] CPT-4: 61042 09/19/2015 ([id number]) 40573 EST. P ATIENT, LEVEL IV Diagnosis: Essential (primary) hypertension[ICD10: I10] Diagnosis: Mixed hyperlipidemia[ICD10: E78.2] Diagnosis: Type 1 diabetes mellitus without complications[ICD10: E10.9] Dominique Recinos MD, [facility] CPT-4: 07911 07/19/2015 ([id number]) 32763 EST. P ATIENT, LEVEL IV Diagnosis: Other specified dorsopathies, lumbar region[ICD10: M53.86] Diagnosis: Urge incontinence[ICD10: N39.41] Diagnosis: Type 1 diabetes mellitus without complications[ICD10: E10.9] Dominique Recinos MD, [facility] CPT-4: 49952 03/22/2015 ([id number]) 81759 EST. P ATIENT, LEVEL IV Diagnosis: Essential (primary) hypertension[ICD10: I10] Diagnosis: Other specified dorsopathies, lumbar region[ICD10: M53.86] Diagnosis: Other chronic pain[ICD10: G89.29] Dominique Recinos MD, [facility] CPT-4: 09515 02/15/2015 ([id number]) 84394 EST. P ATIENT, LEVEL IV Diagnosis: ESSENTIAL HYPERTENSION[ICD9: 401.9] Diagnosis: DIABETES TYPE II[ICD9: 250.00] Diagnosis: FALL FROM LADDER[ICD9: E881.0] Diagnosis: Right hip pain[ICD9: 719.45] Diagnosis: Left hand pain[ICD9: 729.5] Diagnosis: Sacroiliac joint pain[ICD9: 724.6] Dominique Recinos MD, [facility] CPT- 4: 33245 11/15/2014 ([id number]) [facility] - LEVEL 4 Diagnosis: DIABETES TYPE II[ICD9: 250.00] Diagnosis: ESSENTIAL HYPERTENSION[ICD9: 401.9] Diagnosis: HYPERLIPIDEMIA[ICD9: 272.4] Dominique Recinos MD, [facility] CPT-4: 92991 08/13/2014 Plan of Care Planned Activity Notes [...] less controlled. 04/28/2018 Appointment: Dominique Recinos WPtel: [facility]5 [facility] (15 min) Moderate 04/28/2018 Patient Education: Patient [...] while seated. 12/25/2017 Appointment: Dominique Recinos WPtel: [phone] [facility] (15 min) Moderate 12/25/2017 Patient Education: Patient Medication Summary Completed 12/25/2017 Patient Education: Diabetes Completed 12/25/2017 Appointment: Dominique Recinos WPtel: [phone] [facility] (15 min) Moderate 12/09/2017 Visit Plan: Diverticulitis - rx for antibiotic sent to pt's pharmacy - pt advised to avoid seeds, nuts, popcorn, or any other food which has been proven to upset the pt's stomach. 11/22/2017 Appointment: Maile Randolph WPtel: [facility]8 [id number] [place] (15 min) Moderate 11/22/2017 Patient Education: [...] Recinos [facility]Ptel[phone] (15 min) Moderate 10/07/2017 Patient Education: Patient [...] clinic. 09/16/2017 Appointment[phone] [place] ([facility] min) Moderate 09/16/2017 [...] home. 09/09/2017 Appointment: Dominique Recinos WPtel: [phone] [facility] [place] (15 min) Moderate 09/09/2017 Patient Education: Patient Medication Summary Completed 09/09/2017 Appointment: Maile Randolph WPtel: [phone] [id number] [place] (15 min) Moderate 09/06/2017 Appointment: Dominique Recinos WPtel: [phone] [facility] [place] (15 min) Moderate 09/05/2017 Appointment: Fatmata Spann WPtel: [phone] [facility] [place] (15 min) Moderate 07/22/2017 Patient Education: Patient Medication Summary Completed 07/22/2017 Visit Plan: Diabetes Mellitus - con sandralled [...] less controlled. ipro placed today - by SAP INTEGRATION ARCHITECT - pt to RTC on Saturday for [...] less controlled. ipro placed today - by SAP INTEGRATION ARCHITECT - pt to RTC on Saturday for [...] Recinos WPtel: [phone] [facility] [place] (15 min) Moderate 07/16/2017 Patient Education: Patient Medication Summary Completed 07/16/2017 Visit Plan: Sinusitis - Pt has acut e infection - pain in face, maxillary region, Pt informed to use decongestant, RX given to patient, sinus rinses also recommended. Call if symptoms do not show improvement. 06/14/2017 Appointment: [phone] (30 min) Complex 06/14/2017 Patient Education: Patient [...] home. 06/10/2017 Appointment: Dominique Recinos WPtel: [phone] [facility] (15 min) Moderate 06/10/2017 Patient Education: Patient Medication Summary Completed 06/10/2017 Appointment: Fatmata Spann WPtel: [phone] [facility] [place] (30 min) Complex 06/03/2017 Visit Plan: [...] controlled. 05/13/2017 Appointment: Dominique Recinos WPtel: [phone] [place] [place] (15 min) Moderate 05/13/2017 Patient Education: Patient Medication Summary Completed 05/13/2017 Appointment: Dominique Recinos WPtel: [phone] [facility] [place] [place] (30 min) Complex 05/03/2017 Appointment: [phone] [place] (15 min) Moderate 04/12/2017 Appointment: Dominique Recinos WPtel: [phone] [place] (15 min) Moderate 04/11/2017 Appointment: Dominique Recinos WPtel: [phone] [place] (15 min) Moderate 04/10/2017 Appointment: Dominique Recinos WPtel: [phone] [facility] (15 min) Moderate 04/02/2017 Visit Plan: Low [...] injection. 03/26/2017 Appointment: [phone] ([facility] min) Complex 03/26/2017 Appointment: Dominique Recinos WPtel: [facility] [place] (15 min) Moderate 03/26/2017 Patient Education: Patient [...] home. 02/19/2017 Appointment: Dominique Recinos WPtel: [phone] [facility] [place] [place] (15 min) Moderate 02/19/2017 Patient Education: Patient Medication Summary Completed 02/19/2017 Patient Education: Hypertension Completed 02/19/2017 Appointment: Dominique Recinos WPtel: [phone] [facility] [place] (15 min) Moderate 02/12/2017 Visit Plan: [...] above 100F. 01/16/2017 Appointment: Dominique Recinos WPtel: [facility] [place] [place] (15 min) Moderate 01/16/2017 Patient Education: [...] at home. 01/08/2017 Appointment: Dominique Recinos WPtel: [facility] [place] (15 min) Moderate 01/08/2017 Patient Education: Patient Medication Summary Completed 01/08/2017 Patient Education: Hypertension Completed 01/08/2017 Appointment: Dominique Recinos WPtel: [facility]4 [facility] (15 min) Moderate 12/31/2016 Appointment: Dominique Recinos WPtel: [facility]5 [facility] (15 min) Moderate 12/18/2016 Visit Plan: Hypertension [...] less controlled. 11/21/2016 Appointment: Dominique Recinos WPtel: [facility]5 [facility] (15 min) Moderate 11/21/2016 Patient Education: Patient [...] potatoes, creamy coleslaw, etc. -- referral to provider education specialist. Hyperlipidemia - pt has been counseled [...] coleslaw, etc. 10/16/2016 Appointment: Dominique Recinos WPtel: [phone] [facility] [place] (15 min) Moderate 10/16/2016 Patient Education: Patient Medication Summary Completed 10/16/2016 Patient Education: Hypertension Completed 10/16/2016 Patient Education: Patient Medication Summary Completed 10/09/2016 Care Plan: Free T4 Pending 10/09/2016 Visit Plan: COPD exacerbation-cough -symptoms resolved-call if symptoms return-monitor blood sugars closely for the next few days and discussed diet. 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 10/01/2016 Appointment: [phone] (30 min) Complex 10/01/2016 Patient Education: Patient Medication Summary Completed 10/01/2016 Visit Plan: Bronchitis - acute case of bronchitis identified. Pt has been given antibiotics, breathing treatments as appropriate, and pt has been instructed to call if symptoms are not improved, or if symptoms acutely worsen. 09/27/2016 Appointment: Maile Randolph WPtel: [facility]3 [phone] (30 min) Complex 09/27/2016 Patient Education: Patient [...] less controlled. 07/19/2016 Appointment: Dominique Recinos WPtel: [phone] [facility] (15 min) Moderate 07/19/2016 Patient Education: Patient [...] care surrogate. 07/10/2016 Appointment: Fatmata Spann WPtel: [phone] [facility] [facility] - Annual Wellness Visit 07/10/2016 Patient Education: [...] improving 07/09/2016 Appointment: Dominique Recinos WPtel: [phone] [facility] (15 min) Moderate 07/09/2016 Patient Education: Patient Medication Summary Completed 07/09/2016 Patient Education: Hypertension Completed 07/09/2016 Appointment: Dominique Recinos WPtel: [facility]5 [facility] (15 min) Moderate 06/26/2016 Visit Plan: [...] me dications. 06/06/2016 Appointment: Dominique Recinos WPtel: [facility]5 [facility] (15 min) Moderate 06/06/2016 Patient Education: Patient Medication Summary Completed 06/06/2016 Appointment: JorjeDominique WPtel: [facility]5 [facility] (15 min) Moderate 04/30/2016 Visit Plan: URI [...] spray. 04/03/2016 Appointment: [facility] Spann [facility]el: [phone] (30 min) Complex 04/03/2016 Patient Education: Patient [...] Completed 12/26/2015 Appointment: Dominique Recinos WPtel: [phone] (15 min) Moderate 12/19/2015 Visit Plan: Diabetes [...] home. 09/19/2015 Appointment: Dominique Recinos WPtel: [phone] [facility] (15 min) Moderate 09/19/2015 Patient Education: Patient [...] liver response to me dications. 07/19/2015 Appointment: Jorje Dominique WPtel: [phone] [place] (15 min) Moderate 07/19/2015 Patient Education: Patient [...] enzyme q10. Back pain - referral to [facility] physical therapy for further eval and treat. 03/22/2015 Appointment: Dominique Recinos WPtel: [phone] [place] (15 min) Moderate 03/22/2015 Patient Education: Patient Medication Summary Completed 03/22/2015 Care Plan: Referral Order SNOMED-CT : [id number] Ordered 03/22/2015 Visit Plan: Hypertension - well [...] dications. 08/13/2014 Appointment: Dominique Recinos WPtel: [phone] [facility] [place] ([place] New Patient 08/13/2014 Patient Education: [...] potatoes, creamy coleslaw, etc. -- referral to provider education specialist. Hyperlipidemia - pt has been counseled [...] show improvement. two old goats - from [employer] and home . Hypertension - well [...] less controlled. ipro placed today - by SAP INTEGRATION ARCHITECT - pt to RTC on Saturday for [...] less controlled. ipro placed today - by SAP INTEGRATION ARCHITECT - pt to RTC on Saturday for [...]
--- OUTSIDE RECORDS SUMMARY | 2019-06-14 17:12 | XMS REPORT | CCD ---
Author Author Nathalia Recinos Organization [facility] Address [address] [place] [address] Phone Care Team Providers Care Help Desk Analyst Name Role Phone PP Unavailable CCM Unavailable Summary Purpose Interface Exchange Insurance Providers Payer name Policy type / Coverage type Covered green party ID Effective Begin Date Effective End Date WPS Medicare Part B Medicare Part B [id number] Unknown [facility] ica Part B [id number] Un known Family history Mother Diagnosis Age At Onset No Family Disease Entered N/A Father Diagnosis Age At Onset Heart Attack Unknown Diabetes Unknown Social History Social History Element Codes Description Effective Dates Number of children Unknown 2 Sons, 5 grandchildren, 11 great grandchildren 01/08/2017 Marital status Unknown W crystal [place] in 201606/06/[address]: 045977179 Never smoker 08/13/[address]: 593586968 Never drinks alcohol 08/13/2014 Allergies, Adverse Reactions, [...] Fill Instructions Benicar 40 mg tablet RxNorm: 753746 Tablet(s) TAKE ONE TABLET BY MOUTH DAILY 05/07/2018 05/26/2018 Ac tive Benicar 40 mg tablet RxNorm: 710024 TAKE ONE TABLET BY MOUTH DAILY 05/07/2018 05/06/2018 In active Zoloft 50 mg tablet RxNorm: 082795 TAKE ONE TABLET BY MOUTH DAILY 04/28/2018 04/22/2019 Ac tive gabapentin 100 mg ca psule RxNorm: 965101 TAKE ONE CAPSULE BY M OUTH THREE TIMES A DAY 04/09/2018 07/16/2018 Ac tive Novolog U-100 Insuli n aspart 100 unit/mL subcutaneous solution RxNorm: 310383 SSI 5 units over 150 and for every additional 50 add 2 units Unit(s) SQ TID adjust as needed for glucose control 12/25/2017 07/22/2018 Active Cipro 500 mg tablet RxNorm: 363411 1 Tablet(s) PO BID 11/22/2017 12/01/2017 Inactive clotrimazole 1 % top ical cream RxNorm: 623981 1 Application TOP BID 11/22/2017 12/05/2017 Inactive Flagyl 500 mg tablet RxNorm: 086438 1 Tablet(s) PO TID 11/22/2017 12/01/2017 Inactive Lantus U-100 Insulin 100 unit/mL subcutaneous solution RxNorm: 324017 17 Unit(s) SQ QAM 11/11/2017 07/08/2018 Active Novolog U-100 Insuli n aspart 100 unit/mL subcutaneous solution RxNorm: 009357 SSI 5 units over 150 and for every additional 50 add 2 units Unit(s) SQ TID adjust as needed for glucose control 11/11/2017 12/24/2017 Inactive gabapentin 100 mg ca psule RxNorm: 161961 TAKE ONE CAPSULE BY M OUTH THREE TIMES A DAY 11/05/2017 02/11/2018 Inactive Kenalog 40 mg/mL fanny pension for injection RxNorm: 9547005 1 Milliliter(s) Inj 06/14/2017 06/14/2017 In active Flonase Allergy Reli ef 50 mcg/actuation nasal spray,suspension RxNorm: 2282763 2 [place] NASAL daily 06/14/2017 06/20/2017 Inactive doxycycline hyclate 100 mg tablet RxNorm: 274131 1 Tablet(s) PO BID 06/14/2017 06/20/2017 Inactive Lantus U-100 Insulin 100 unit/mL subcutaneous solution RxNorm: 059922 17 Unit(s) SQ QAM 06/10/2017 07/09/2017 Inactive gabapentin 100 mg ca psule RxNorm: 926189 TAKE ONE CAPSULE BY M OUTH THREE TIMES A DAY 05/23/2017 08/29/2017 Inactive Lantus U-100 Insulin 100 unit/mL subcutaneous solution RxNorm: 851333 15 Unit(s) SQ QAM 05/14/2017 06/09/2017 Inactive Novolog U-100 Insuli n aspart 100 unit/mL subcutaneous solution RxNorm: 655761 SSI 5 units over 150 and for every additional 50 add 2 units Unit(s) SQ TID adjust as needed for glucose control 04/24/2017 11/10/2017 Inactive Zocor 20 mg tablet RxNorm: 478769 1 Tablet(s) PO daily 04/05/2017 03/30/2018 Inactive Kenalog 40 mg/mL fanny pension for injection RxNorm: 8938627 1 Milliliter(s) Inj 03/26/2017 03/26/2017 In active Novolog 100 unit/mL subcutaneous solution RxNorm: 023859 SSI 5 units over 150 and for every additional 50 add 2 units Unit(s) SQ TID adjust as needed for glucose control 02/19/2017 04/23/2017 Inactive Lantus 100 unit/mL s ubcutaneous solution RxNorm: 645372 10 Unit(s) SQ QAM 02/19/2017 05/13/2017 In active ceftriaxone 500 mg s olution for injection RxNorm: 7252223 Inj 01/16/2017 01/16/2017 Inactive Lantus 100 unit/mL s ubcutaneous solution RxNorm: 775357 7 Unit(s) SQ QAM 01/16/2017 02/18/2017 In active Lantus 100 unit/mL s ubcutaneous solution RxNorm: 854208 10 Unit(s) SQ daily 01/08/2017 05/12/2017 In active gabapentin 100 mg ca psule RxNorm: 804451 TAKE ONE CAPSULE BY M OUTH THREE TIMES A DAY 11/30/2016 02/03/2017 Inactive Zoloft 50 mg tablet RxNorm: 401542 TAKE ONE TABLET BY MOUTH DAILY 10/30/2016 04/27/2017 In active Zocor 20 mg tablet RxNorm: 010893 1 Tablet(s) PO daily 10/16/2016 04/04/2017 Inactive stop the 40mg dose of zocor, start on 20 mg Lantus 100 unit/mL s ubcutaneous solution RxNorm: 700609 15 Unit(s) SQ daily 10/16/2016 01/07/2017 In active Novolog 100 unit/mL subcutaneous solution RxNorm: 282587 SSI 5 units over 150 and for every additional 50 add 2 units Unit(s) SQ TID adjust as needed for glucose control 10/16/2016 02/18/2017 Inactive prednisone 20 mg tablet RxNorm: 602151 1 Tablet(s) PO BID 10/01/2016 10/05/2016 Inactive Kenalog 40 mg/mL fanny pension for injection RxNorm: 6016484 1 Milliliter(s) Inj 09/27/2016 09/27/2016 In active Zithromax Z-Kishor 250 mg tablet RxNorm: 703210 1 Tablet(s) PO UD 09/27/2016 10/01/2016 Inactive ceftriaxone 500 mg s olution for injection RxNorm: 6693619 1 Milliliter(s) Inj 09/27/2016 09/27/2016 In active Augmentin 500 mg-125 mg tablet RxNorm: 165687 1 Tablet(s) PO BID 09/22/2016 09/26/2016 Inactive Tessalon Perles 100 mg capsule RxNorm: 906900 1 Capsule(s) PO Q8 MA N as needed 09/22/2016 04/27/2018 In active metoprolol tartrate 50 mg tablet RxNorm: 318866 TAKE ONE TABLET BY [facility] TWICE A DAY 08/02/2016 07/27/2017 Inactive Novolog 100 unit/mL subcutaneous solution RxNorm: 973216 10 Unit(s) SQ TID adj ust as needed for glucose control 07/19/2016 10/15/2016 Inactive Humalog 100 unit/mL subcutaneous solution RxNorm: 151026 INJECT 10 UNITS UNDER THE SKIN BEFORE EACH MEAL 07/16/2016 07/16/2016 Inactive Kenalog 40 mg/mL fanny pension for injection RxNorm: 1812005 1 Milliliter(s) Inj 07/09/2016 07/09/2016 In active ceftriaxone 500 mg s olution for injection RxNorm: 6205202 Inj 07/09/2016 07/09/2016 Inactive Lantus 100 unit/mL s ubcutaneous solution RxNorm: 533015 Unit(s) INJECT 13 UNI TS UNDER THE SKIN IN THE MORNING 06/06/2016 10/15/2016 Inactive Zoloft 50 mg tablet RxNorm: 122293 TAKE ONE TABLET BY MOUTH DAILY 04/27/2016 07/25/2016 In active Lantus 100 unit/mL s ubcutaneous solution RxNorm: 942530 INJECT 20 UNITS UNDER THE SKIN AT BEDTIME 04/27/2016 06/05/2016 Inactive amoxicillin 500 mg c apsule RxNorm: 414134 1 Capsule(s) PO TID 04/03/2016 04/12/2016 Inactive Zyrtec 10 mg tablet RxNorm: 6118541 1 Tablet(s) PO daily 04/03/2016 05/02/2016 Inactive hydrochlorothiazide 12.5 mg capsule RxNorm: 220338 TAKE ONE CAPSULE BY M OUTH DAILY 03/12/2016 12/06/2016 In active Benicar 40 mg tablet RxNorm: 147046 1 Tablet(s) PO daily 02/28/2016 04/27/2016 Inactive Benicar 40 mg tablet RxNorm: 100145 1 Tablet(s) PO daily 02/20/2016 02/27/2016 Inactive gabapentin 100 mg ca psule RxNorm: 260414 TAKE ONE CAPSULE BY M OUTH THREE TIMES A DAY 01/09/2016 04/16/2016 Inactive metoprolol tartrate 50 mg tablet RxNorm: 809550 TAKE ONE TABLET BY MO UTH TWICE A DAY 01/09/2016 04/07/2016 Inactive Humalog 100 unit/mL subcutaneous solution RxNorm: 407420 5-10 Unit(s) SQ AC 07/19/2015 07/18/2016 In active Lantus 100 unit/mL s ubcutaneous solution RxNorm: 934186 13 Unit(s) SQ QAM 07/19/2015 01/15/2017 In active Lantus 100 unit/mL s ubcutaneous solution RxNorm: 345814 20 Unit(s) SQ QHS 07/14/2015 07/18/2015 In active Zoloft 50 mg tablet RxNorm: 738865 1 Tablet(s) PO daily 05/19/2015 09/15/2015 Inactive Humalog 100 unit/mL subcutaneous solution RxNorm: 366268 10 Unit(s) SQ AC 05/11/2015 07/18/2015 In active metoprolol tartrate 50 mg tablet RxNorm: 833415 1 Tablet(s) PO BID 04/28/2015 08/25/2015 Inactive Lantus 100 unit/mL s ubcutaneous solution RxNorm: 027861 20 Unit(s) SQ QHS 04/28/2015 07/13/2015 In active Vesicare 10 mg tablet RxNorm: 750331 1 Tablet(s) PO QPM 03/22/2015 09/18/2015 Inactive hydrochlorothiazide 12.5 mg capsule RxNorm: 389618 1 Tablet(s) PO daily 01/04/2015 12/29/2015 In active gabapentin 100 mg ca psule RxNorm: 368373 1 Capsule(s) PO TID 11/29/2014 03/28/2015 Inactive [...] Date Active aspirin 81 mg tablet RxNorm: 542799 1 Tablet(s) PO daily No Start Date Active doxazosin 2 mg tablet RxNorm: 471085 1 Tablet(s) PO QHS No Start Date Active Fish Oil oral RxNorm: 9984427 oral No Start Date Active multivitamin capsule RxNorm: 1 Capsule(s) PO daily No Start Date Active Humalog 100 unit/mL subcutaneous solution RxNorm: 084616 Unit(s) SQ No Start Date 05/10/2015 Inactive Zoloft 50 mg tablet RxNorm: 493034 1 Tablet(s) PO daily No Start Date 05/18/2015 Inactive gabapentin 100 mg ca psule RxNorm: 470747 1 Capsule(s) PO daily No Start Date 11/28/2014 Inactive metoprolol tartrate 50 mg tablet RxNorm: 142476 1 Tablet(s) PO TID No Start Date 04/27/2015 Inactive Benicar 40 mg tablet RxNorm: 776760 1 Tablet(s) PO daily No Start Date 02/19/2016 Inactive hydrochlorothiazide 25 mg tablet RxNorm: 987373 1 Tablet(s) PO daily No Start Date 01/03/2015 Inactive Lantus 100 unit/mL s ubcutaneous solution RxNorm: 978279 13 Unit(s) SQ No Start Date 04/27/2015 Inactive Zocor 40 mg tablet RxNorm: 182670 1 Tablet(s) PO daily No Start Date 10/15/2016 Inactive Medication Administered Medication Codes Instruc tions Start Date Status Kenalog 40 mg/mL suspension for injection RxNorm: 3473207 1Milliliter 06/14/2017 N o longer Active Kenalog 40 mg/mL suspension for injection RxNorm: 4871803 1Milliliter 03/26/2017 N o longer Active ceftriaxone 500 mg solution for injection RxNorm: 9425022 01/16/2017 No longer A ctive Kenalog 40 mg/mL suspension for injection RxNorm: 8866221 1Milliliter 09/27/2016 N o longer Active ceftriaxone 500 mg solution for injection RxNorm: 8030981 1Milliliter 09/27/2016 N o longer Active Kenalog 40 mg/mL suspension for injection RxNorm: 4511488 1Milliliter 07/09/2016 N o longer Active ceftriaxone 500 mg solution for injection RxNorm: 0881003 07/09/2016 No longer A ctive Immunizations Vaccine [...] Item Item Code Result Date Comp Metabolic Jsv530 NA 137 mEq/L 04/28/2018 Comp Metabolic Xil144 K 4.1 mEq/L 04/28/2018 Comp Metabolic Wth725 CL 101 mEq/L 04/28/2018 Comp Metabolic Hwf511 CO2 28.0 mEq/L 04/28/2018 Comp Metabolic Bwd913 AN ION GAP 12 04/28/2018 Comp Metabolic Zpv869 GL UCOSE 195 mg/dL 04/28/2018 Comp Metabolic Dka783 Cr eat 0.7 mg/dL 04/28/2018 Comp Metabolic Eqx151 eG FR 81 ml/min/1.73m2 04/28 Comp Metabolic Sny482 BUN 24 mg/dL 04/28/2018 Comp Metabolic Joe171 B/ C Ratio 33.3 Ratio 04/28/2018 Comp Metabolic Jtr655 CA LCIUM 9.4 mg/dL 04/28/2018 Comp Metabolic Gbi907 AL K PHOS 72 U/L 04/28/2018 Comp Metabolic Yvi011 T(SGOT) 15 U/L 04/28/2018 Comp Metabolic Cjr408 AL T(SGPT) 11 U/L 04/28/2018 Comp Metabolic Ktj762 BI LI T 0.6 mg/dL 04/28/2018 Comp Metabolic Nhj194 AL BUMIN 4.0 g/dL 04/28/2018 Comp Metabolic Ubk635 TP RO 6.1 g/dL 04/28/2018 Comp Metabolic Ltd054 GL OB 2.1 g/dL 04/28/2018 Comp Metabolic Mdt623 A/ G Ratio 2.0 Ratio 04/28/2018 Comp Metabolic Kro946 Os mo 283 mOsmo 04/28/2018 %Hba1C Enw728 % HbA1c 31923-8 7.5 % 04/28/2018 %Hba1C Sbh482 Gluc Ave 169 mg/dL 04/28/2018 %Hba1C Qxz259 % HbA1c 48982-2 7.1 % 12/25/2017 %Hba1C Pzm854 Gluc Ave 157 mg/dL 12/25/2017 Comp Metabolic Zjo315 NA 139 mEq/L 12/25/2017 Comp Metabolic Evg931 K 4.1 mEq/L 12/25/2017 Comp Metabolic Tws080 CL 104 mEq/L 12/25/2017 Comp Metabolic Loy498 CO2 28.0 mEq/L 12/25/2017 Comp Metabolic Dug445 AN ION GAP 11 12/25/2017 Comp Metabolic Mod473 GL UCOSE 129 mg/dL 12/25/2017 Comp Metabolic Lzx149 Cr eat 0.7 mg/dL 12/25/2017 Comp Metabolic Dej434 eG FR 83 ml/min/1.73m2 12/25 Comp Metabolic Inp656 BUN 22 mg/dL 12/25/2017 Comp Metabolic She780 B/ C Ratio 31.0 Ratio 12/25/2017 Comp Metabolic Ofp716 CA LCIUM 9.4 mg/dL 12/25/2017 Comp Metabolic Cxr603 AL K PHOS 70 U/L 12/25/2017 Comp Metabolic Sgv337 T(SGOT) 16 U/L 12/25/2017 Comp Metabolic Atf553 AL T(SGPT) 12 U/L 12/25/2017 Comp Metabolic Sep156 BI LI T 0.5 mg/dL 12/25/2017 Comp Metabolic Qyg754 AL BUMIN 4.2 g/dL 12/25/2017 Comp Metabolic Hya806 TP RO 6.1 g/dL 12/25/2017 Comp Metabolic Ujb113 GL OB 1.9 g/dL 12/25/2017 Comp Metabolic Nwo562 A/ G Ratio 2.1 Ratio 12/25/2017 Comp Metabolic Qei206 Os mo 283 mOsmo 12/25/2017 %Hba1C Qed322 % HbA1c 24501-7 8.0 % 05/13/2017 %Hba1C Cye939 Gluc Ave 183 mg/dL 05/13/2017 Comp Metabolic Aog579 NA 135 mEq/L 05/13/2017 Comp Metabolic Vpo732 K 3.8 mEq/L 05/13/2017 Comp Metabolic Ijk213 CL 99 mEq/L 05/13/2017 Comp Metabolic Ime656 CO2 29.0 mEq/L 05/13/2017 Comp Metabolic Dhk632 AN ION GAP 11 05/13/2017 Comp Metabolic Fwu842 GL UCOSE 155 mg/dL 05/13/2017 Comp Metabolic Zzp426 Cr eat 0.7 mg/dL 05/13/2017 Comp Metabolic Uya859 eG FR 90 ml/min/1.73m2 05/13 Comp Metabolic Kgb607 BUN 18 mg/dL 05/13/2017 Comp Metabolic Kga383 B/ C Ratio 27.3 Ratio 05/13/2017 Comp Metabolic Ydn905 CA LCIUM 8.9 mg/dL 05/13/2017 Comp Metabolic Obp795 AL K PHOS 90 U/L 05/13/2017 Comp Metabolic Elb315 T(SGOT) 18 U/L 05/13/2017 Comp Metabolic Sim592 AL T(SGPT) 15 U/L 05/13/2017 Comp Metabolic Mee189 BI LI T 0.5 mg/dL 05/13/2017 Comp Metabolic Eya181 AL BUMIN 4.0 g/dL 05/13/2017 Comp Metabolic Rdb903 TP RO 5.9 g/dL 05/13/2017 Comp Metabolic Yln617 GL OB 1.9 g/dL 05/13/2017 Comp Metabolic Mww582 A/ G Ratio 2.1 Ratio 05/13/2017 Comp Metabolic Rls020 Os mo 275 mOsmo 05/13/2017 Urine Culture Ucult Prel iminary NO Growth Day 1 01/18 Urine Culture Ucult Comp lete NO Growth Day 2 01/18 Free T4 Fzk348 FREE T4 1.13 ng/dL 10/09/2016 Tsh Ord6 [...] 31.5 pg 10/08/2016 Cbc With Differential Ord2 George% 4.0 % 10/08/2016 Cbc With Differential Ord2 [...] 0.96 K/ul 10/08/2016 Cbc With Differential Ord2 George ABS# 0.4 K/ul 10/08/2016 Cbc With Differential Ord2 Eos ABS# 0.0 K/ul 10/08/2016 Cbc With Differential Ord2 Baso ABS# 0.0 K/ul 10/08/2016 Comp Metabolic Qzz717 NA 135 mEq/L 10/08/2016 Comp Metabolic Fot571 K 4.3 mEq/L 10/08/2016 Comp Metabolic Gke513 CL 98 mEq/L 10/08/2016 Comp Metabolic Cna068 CO2 22.0 mEq/L 10/08/2016 Comp Metabolic Nxz606 AN ION GAP 19 10/08/2016 Comp Metabolic Bau039 GL UCOSE 400 mg/dL 10/08/2016 Comp Metabolic Sso885 Cr eat 0.7 mg/dL 10/08/2016 Comp Metabolic Xbf161 eG FR 79 ml/min/1.73m2 10/08 Comp Metabolic Bth072 BUN 27 mg/dL 10/08/2016 Comp Metabolic Gzl416 B/ C Ratio 36.5 Ratio 10/08/2016 Comp Metabolic Ahv640 CA LCIUM 9.1 mg/dL 10/08/2016 Comp Metabolic Pmu938 AL K PHOS 65 U/L 10/08/2016 Comp Metabolic Cdg531 T(SGOT) 28 U/L 10/08/2016 Comp Metabolic Hdm166 AL T(SGPT) 24 U/L 10/08/2016 Comp Metabolic Euc175 BI LI T 0.7 mg/dL 10/08/2016 Comp Metabolic Dka436 AL BUMIN 3.8 g/dL 10/08/2016 Comp Metabolic Qeh344 TP RO 6.0 g/dL 10/08/2016 Comp Metabolic Jyk877 GL OB 2.2 g/dL 10/08/2016 Comp Metabolic Hwg543 A/ G Ratio 1.7 Ratio 10/08/2016 Comp Metabolic Qmc433 Os mo 292 mOsmo 10/08/2016 %Hba1C Mgc883 % HbA1c 41081-2 7.0 % 10/08/2016 %Hba1C Ble945 Gluc Ave 154 mg/dL 10/08/2016 Microalbumin Dyd385 Micr oAlb <0.7 mg/dL 10/08/2016 Lipid Ord30 [...] OK? TNP:Duplicate Order 04/03/2016 C A/B FLU [id number] Influe nza A Scr Negative 04/03/2016 C A/B FLU [id number] Influe nza B Scr Negative 04/03/2016 Comp Metabolic Mcl167 NA 138 mEq/L 09/15/2015 Comp Metabolic Mvo480 K 4.4 mEq/L 09/15/2015 Comp Metabolic Ojj970 CL 103 mEq/L 09/15/2015 Comp Metabolic Bug401 CO2 29.0 mEq/L 09/15/2015 Comp Metabolic Zum841 AN ION GAP 10 09/15/2015 Comp Metabolic Mmp330 GL UCOSE 156 mg/dL 09/15/2015 Comp Metabolic Pte020 Cr eat 0.7 mg/dL 09/15/2015 Comp Metabolic Pbw923 eG FR 79 ml/min/1.73m2 09/14 Comp Metabolic Kcm705 BUN 23 mg/dL 09/15/2015 Comp Metabolic She072 B/ C Ratio 31.1 Ratio 09/15/2015 Comp Metabolic Jkn731 CA LCIUM 9.1 mg/dL 09/15/2015 Comp Metabolic Zyh430 AL K PHOS 58 U/L 09/15/2015 Comp Metabolic Xmq843 T(SGOT) 19 U/L 09/15/2015 Comp Metabolic Dnm876 AL T(SGPT) 11 U/L 09/15/2015 Comp Metabolic Hdq381 BI LI T 0.6 mg/dL 09/15/2015 Comp Metabolic Lwa761 AL BUMIN 3.9 g/dL 09/15/2015 Comp Metabolic Har532 TP RO 5.8 g/dL 09/15/2015 Comp Metabolic Jya123 GL OB 1.9 g/dL 09/15/2015 Comp Metabolic Jjt495 A/ G Ratio 2.1 Ratio 09/15/2015 Comp Metabolic Rgo617 Os mo 283 mOsmo 09/15/2015 Cbc With [...] 30.5 pg 09/15/2015 Cbc With Differential Ord2 George% 10.2 % 09/15/2015 Cbc With Differential Ord2 [...] 0.86 K/ul 09/15/2015 Cbc With Differential Ord2 George ABS# 0.5 K/ul 09/15/2015 Cbc With Differential Ord2 Eos ABS# 0.1 K/ul 09/15/2015 Cbc With Differential Ord2 Baso ABS# 0.0 K/ul 09/15/2015 Tsh Ord6 hTSH II 0.76 uIU/mL 09/15/2015 Lipid Ord30 CHOL 139 mg/dL 09/15/2015 Lipid Ord30 HDL 57.0 mg/dl 09/15/2015 Lipid Ord30 TRIG 76 mg/dL 09/15/2015 Lipid Ord30 LDL 67 mg/dL 09/15/2015 Lipid Ord30 C/HDL 2.4 Ratio 09/15/2015 %Hba1C Iih520 % HbA1c 02801-6 6.6 % 09/15/2015 %Hba1C Onu773 Gluc Ave 143 mg/dL 09/15/2015 Tsh Ord6 hTSH II 0.68 uIU/mL 06/02/2015 %Hba1C Cwt667 % HbA1c 42054-0 6.5 % 06/02/2015 %Hba1C Ejx012 Gluc Ave 140 mg/dL 06/02/2015 Comp Metabolic Zbk099 NA 139 mEq/L 06/02/2015 Comp Metabolic Wno671 K 4.5 mEq/L 06/02/2015 Comp Metabolic Rek098 CL 104 mEq/L 06/02/2015 Comp Metabolic Yhp292 CO2 25.0 mEq/L 06/02/2015 Comp Metabolic Sja026 AN ION GAP 15 06/02/2015 Comp Metabolic Pgo982 GL UCOSE 123 mg/dL 06/02/2015 Comp Metabolic Wbk086 Cr eat 0.7 mg/dL 06/02/2015 Comp Metabolic Pkz335 eG FR 92 ml/min/1.73m2 06/01 Comp Metabolic Sla873 BUN 21 mg/dL 06/02/2015 Comp Metabolic Qjl692 B/ C Ratio 32.3 Ratio 06/02/2015 Comp Metabolic Nra163 CA LCIUM 9.5 mg/dL 06/02/2015 Comp Metabolic Veg673 AL K PHOS 66 U/L 06/02/2015 Comp Metabolic Zvf886 T(SGOT) 19 U/L 06/02/2015 Comp Metabolic Qgb037 AL T(SGPT) 13 U/L 06/02/2015 Comp Metabolic Iam013 BI LI T 0.5 mg/dL 06/02/2015 Comp Metabolic Vdk644 AL BUMIN 4.0 g/dL 06/02/2015 Comp Metabolic Qmq268 TP RO 6.3 g/dL 06/02/2015 Comp Metabolic Ekx004 GL OB 2.3 g/dL 06/02/2015 Comp Metabolic Blf967 A/ G Ratio 1.7 Ratio 06/02/2015 Comp Metabolic Ofb084 Os mo 282 mOsmo 06/02/2015 %Hba1C Yxb076 % HbA1c 25696-4 6.7 % 02/17/2015 %Hba1C Juj535 Gluc Ave 146 mg/dL 02/17/2015 Comp Metabolic Lim006 NA 133 mEq/L 02/17/2015 Comp Metabolic Hnc717 K 4.3 mEq/L 02/17/2015 Comp Metabolic Yhd501 CL 99 mEq/L 02/17/2015 Comp Metabolic Pxv132 CO2 27.0 mEq/L 02/17/2015 Comp Metabolic Wcr033 AN ION GAP 11 02/17/2015 Comp Metabolic Fou276 GL UCOSE 239 mg/dL 02/17/2015 Comp Metabolic Sjb862 Cr eat 0.7 mg/dL 02/17/2015 Comp Metabolic Nen155 eG FR 79 ml/min/1.73m2 02/17 Comp Metabolic Kzl944 BUN 24 mg/dL 02/17/2015 Comp Metabolic Llw427 B/ C Ratio 32.4 Ratio 02/17/2015 Comp Metabolic Ysr776 CA LCIUM 9.1 mg/dL 02/17/2015 Comp Metabolic Jqy482 AL K PHOS 75 U/L 02/17/2015 Comp Metabolic Wyz994 T(SGOT) 18 U/L 02/17/2015 Comp Metabolic Wvc773 AL T(SGPT) 11 U/L 02/17/2015 Comp Metabolic Zjs351 BI LI T 0.6 mg/dL 02/17/2015 Comp Metabolic Gid253 AL BUMIN 4.2 g/dL 02/17/2015 Comp Metabolic Jjr129 TP RO 6.2 g/dL 02/17/2015 Comp Metabolic Sgl743 GL OB 2.0 g/dL 02/17/2015 Comp Metabolic Dph804 A/ G Ratio 2.1 Ratio 02/17/2015 Comp Metabolic Fdn688 Os mo 278 mOsmo 02/17/2015 %Hba1C Jgu618 % HbA1c 38708-0 6.7 % 11/15/2014 %Hba1C Tic517 Gluc Ave 146 mg/dL 11/15/2014 Comp Metabolic Hfx168 NA 134 mEq/L 11/15/2014 Comp Metabolic Nia565 K 4.5 mEq/L 11/15/2014 Comp Metabolic Rnj008 CL 101 mEq/L 11/15/2014 Comp Metabolic Vhk057 CO2 27.0 mEq/L 11/15/2014 Comp Metabolic Koa388 AN ION GAP 11 11/15/2014 Comp Metabolic Qwe382 GL UCOSE 293 mg/dL 11/15/2014 Comp Metabolic Xed065 Cr eat 0.7 mg/dL 11/15/2014 Comp Metabolic Lrl564 eG FR 87 ml/min/1.73m2 11/15 Comp Metabolic Dwq446 BUN 20 mg/dL 11/15/2014 Comp Metabolic Tqw196 B/ C Ratio 29.4 Ratio 11/15/2014 Comp Metabolic Abu997 CA LCIUM 9.0 mg/dL 11/15/2014 Comp Metabolic Ajv748 AL K PHOS 67 U/L 11/15/2014 Comp Metabolic Hxp826 T(SGOT) 17 U/L 11/15/2014 Comp Metabolic Yrt160 AL T(SGPT) 10 U/L 11/15/2014 Comp Metabolic Pov346 BI LI T 0.6 mg/dL 11/15/2014 Comp Metabolic Xll312 AL BUMIN 4.0 g/dL 11/15/2014 Comp Metabolic Ncs649 TP RO 6.0 g/dL 11/15/2014 Comp Metabolic Fgg301 GL OB 2.0 g/dL 11/15/2014 Comp Metabolic Oyx918 A/ G Ratio 2.0 Ratio 11/15/2014 Comp Metabolic Fsp576 Os mo 282 mOsmo 11/15/2014 Review of [...] normal 09/16/2017 None Full Exam - General 1995 Ears/Nose/Throat lips/teeth/gingiva Overall: benign lips 09/16/2017 None Full Exam - General 1995 Ears/Nose/Throat [...] GLUC MONITOR CONT PH YS I&R CPT-4: 47704 09/16/2017 GLUCOSE MONITORING CONT CPT-4: 69079 07/16/2017 TRIAMCINOLONE ACET I [place] NOS CPT-4: J3301 06/14/2017 DRAIN/INJECT JOINT/B URSA CPT-4: 82864 03/26/2017 TRIAMCINOLONE ACET I [place] NOS CPT-4: J3301 03/26/2017 URINALYSIS NONAUTO W /O SCOPE CPT-4: 46785 01/16/2017 THER/PROPH/DIAG INJ SC/IM CPT-4: 83940 01/16/2017 ROCEPHIN, PER 250 MG CPT-4: J0696 01/16/2017 DESTRUCT PREMALG LESION CPT-4: 43944 10/16/2016 TRIAMCINOLONE ACET I [place] NOS CPT-4: J3301 09/27/2016 ROCEPHIN, PER 250 MG CPT-4: J0696 09/27/2016 PPPS, SUBSEQ VISIT CPT- 4: G0439 07/10/2016 THER/PROPH/DIAG INJ SC/IM CPT-4: 52197 07/09/2016 TRIAMCINOLONE ACET I [place] NOS CPT-4: J3301 07/09/2016 ROCEPHIN, PER 250 MG CPT-4: J0696 07/09/2016 ADMIN PNEUMOCOCCAL V ACCINE SNOMED CT: 18765844 CPT-4: G0009 02/15/2015 PNEUMOCOCCAL VACC 13 LIMA IM Formatting Model/CDA Sections, Assigned to SNOMED CT: 64266658 CPT-4: 17497Garduwe 02/15/2015 ADMIN INFLUENZA VIRU S VAC CPT-4: G0008 12/10/2014 FLU VACC 4 LIMA 3 YRS PLUS IM Formatting Model/CDA Sections, Assigned to SNOMED CT: 33891083 CPT-4: 05376Ulujoqo 12/10/2014 Vital Signs Date Vital 04/28/2018 Blood Pressure 1: 110/58 Code: 8480-6 BMI: 24.0 Code: 62762-7 Heart Rate 1: 56 bpm Height: 5'2" Respiratory Rate: 18 bpm SpO2: 98% Weight: 131 lbs 12/25/2017 Blood Pressure 1: 140/52 Code: 8480-6 BMI: 24.0 Code: 11511-7 Heart Rate 1: 64 bpm Height: 5'2" Respiratory Rate: 18 bpm SpO2: 96% Weight: 131 lbs 11/22/2017 Blood Pressure 1: 128/54 Code: 8480-6 BMI: 23.4 Code: 90453-7 Heart Rate 1: 62 bpm Height: 5'2" SpO2: 97% Weight: 128 lbs 10/07/2017 Blood Pressure 1: 148/68 Code: 8480-6 BMI: 23.2 Code: 10118-2 Heart Rate 1: 68 bpm Height: 5'2" SpO2: 98% Weight: 127 lbs 09/16/2017 Blood Pressure 1: 134/80 Code: 8480-6 BMI: 22.5 Code: 34732-5 Heart Rate 1: 86 bpm Height: 5'2" SpO2: 98% Weight: 123 lbs 09/09/2017 Blood Pressure 1: 150/66 Code: 8480-6 Blood Pressure 1: 138/72 Code: 8480-6 BMI: 22.9 Code: 95357-8 Heart Rate 1: 81 bpm Height: 5'2" SpO2: 98% Weight: 125 lbs 07/16/2017 Blood Pressure 1: 144/68 Code: 8480-6 BMI: 21.9 Code: 97548-2 Heart Rate 1: 73 bpm Height: 5'2" SpO2: 98% Weight: 120 lbs 06/14/2017 Blood Pressure 1: 132/64 Code: 8480-6 BMI: 22.3 Code: 70214-6 Heart Rate 1: 77 bpm Height: 5'2" SpO2: 98% Temperature: 37.0 (C ) / 98.6 (F) Weight: 122 lbs 06/10/2017 Blood Pressure 1: 134/64 Code: 8480-6 BMI: 22.5 Code: 77894-2 Heart Rate 1: 78 bpm Height: 5'2" SpO2: 95% Weight: 123 lbs 05/13/2017 Blood Pressure 1: 140/66 Code: 8480-6 BMI: 21.6 Code: 45676-8 Heart Rate 1: 80 bpm Height: 5'2" SpO2: 98% Weight: 118 lbs 03/26/2017 Blood Pressure 1: 150/78 Code: 8480-6 BMI: 23.2 Code: 91889-1 Heart Rate 1: 73 bpm Height: 5'2" SpO2: 99% Weight: 127 lbs 02/19/2017 Blood Pressure 1: 126/64 Code: 8480-6 BMI: 22.9 Code: 32717-7 Heart Rate 1: 74 bpm Height: 5'2" SpO2: 99% Weight: 125 lbs 01/16/2017 Blood Pressure 1: 136/68 Code: 8480-6 Heart Rate 1: 97 bpm Height: 5'2" Respiratory Rate: 16 bpm Temperature: 37.5 (C ) / 99.5 (F) Weight: 01/08/2017 Blood Pressure 1: 144/60 Code: 8480-6 BMI: 23.0 Code: 98855-3 Heart Rate 1: 71 bpm Height: 5'2" SpO2: 96% Weight: 126 lbs 11/21/2016 Blood Pressure 1: 150/62 Code: 8480-6 BMI: 23.2 Code: 97287-1 Heart Rate 1: 73 bpm Height: 5'2" SpO2: 94% Weight: 127 lbs 10/16/2016 Blood Pressure 1: 142/82 Code: 8480-6 BMI: 22.9 Code: 00253-1 Heart Rate 1: 80 bpm Height: 5'2" SpO2: 96% Weight: 125 lbs 10/08/2016 Blood Pressure 1: 150/72 Code: 8480-6 Heart Rate 1: 65 bpm Height: 5'2" SpO2: 98% 10/01/2016 Blood Pressure 1: 152/76 Code: 8480-6 Heart Rate 1: 69 bpm Height: 5'2" SpO2: 97% 09/27/2016 Blood Pressure 1: 122/64 Code: 8480-6 BMI: 23.3 Code: 93519-7 Heart Rate 1: 80 bpm Height: 5'2" SpO2: 98% Weight: 127 lbs 8 oz 07/19/2016 Blood Pressure 1: 118/68 Code: 8480-6 BMI: 23.0 Code: 05840-8 Heart Rate 1: 62 bpm Height: 5'2" SpO2: 97% Weight: 126 lbs 07/10/2016 Blood Pressure 1: 132/64 Code: 8480-6 BMI: 23.4 Code: 29148-4 Heart Rate 1: 82 bpm Height: 5'2" SpO2: 98% Waist Measure (cm): 76 cm Weight: 128 lbs 07/09/2016 Blood Pressure 1: 132/64 Code: 8480-6 BMI: 23.4 Code: 45332-9 Heart Rate 1: 82 bpm Height: 5'2" SpO2: 98% Temperature: 37.2 (C ) / 98.9 (F) Weight: 128 lbs 06/06/2016 Blood Pressure 1: 144/66 Code: 8480-6 BMI: 23.4 Code: 91079-0 Heart Rate 1: 77 bpm Height: 5'2" SpO2: 97% Weight: 128 lbs 04/03/2016 Blood Pressure 1: 164/70 Code: 8480-6 BMI: 24.5 Code: 46939-8 Heart Rate 1: 80 bpm Height: 5'2" SpO2: 98% Weight: 134 lbs 12/26/2015 Blood Pressure 1: 130/72 Code: 8480-6 BMI: 24.1 Code: 13019-5 Heart Rate 1: 63 bpm Height: 5'2" SpO2: 98% Weight: 132 lbs 09/19/2015 Blood Pressure 1: 140/68 Code: 8480-6 BMI: 24.2 Code: 29055-9 Heart Rate 1: 96 bpm Height: 5'2" SpO2: 98% Weight: 132 lbs 8 oz 07/19/2015 Blood Pressure 1: 128/64 Code: 8480-6 BMI: 24.2 Code: 34004-0 Heart Rate 1: 66 bpm Height: 5'2" SpO2: 98% Weight: 132 lbs 8 oz 03/22/2015 Blood Pressure 1: 128/60 Code: 8480-6 BMI: 24.0 Code: 57857-2 Heart Rate 1: 57 bpm Height: 5'2" SpO2: 98% Weight: 131 lbs 02/15/2015 Blood Pressure 1: 132/56 Code: 8480-6 BMI: 23.8 Code: 86456-1 Heart Rate 1: 70 bpm Height: 5'2" SpO2: 98% Weight: 130 lbs 11/15/2014 Blood Pressure 1: 120/78 Code: 8480-6 BMI: 24.1 Code: 07398-8 Heart Rate 1: 79 bpm Height: 5'2" SpO2: 98% Weight: 132 lbs 08/13/2014 Blood Pressure 1: 140/60 Code: 8480-6 BMI: 24.0 Code: 53931-5 Heart Rate 1: 74 bpm Height: 5'2" [...] th roat 11/21/2016 None hypertension Quality whitney nathalia [...] Encounters Encounter Performer Loca tion Codes Date ([id number]) 44649 EST. P ATIENT, LEVEL IV Diagnosis: Essential (primary) hypertension[ICD10: I10] Diagnosis: Type 2 diabetes mellitus with hyperglycemia[ICD10: E11.65] Diagnosis: Trigger finger, right middle finger[ICD10: M65.331] Dominique Recinos MD, [facility] CPT-4: 18119 04/28/2018 [id number]) 65489 EST. P ATIENT, LEVEL IV Diagnosis: Type 2 diabetes mellitus with hyperglycemia[ICD10: E11.65] Diagnosis: Essential (primary) hypertension[ICD10: I10] Diagnosis: Localized edema[ICD10: R60.0] Dominique Recinos MD, [facility] CPT-4: 87947 12/25/2017 [id number]) 80623 EST. P ATIENT, LEVEL IV Diagnosis: Diverticulitis of large intestine without perforation or abscess without bleeding[ICD10: K57.32] Diagnosis: Nausea[ICD10: R11.0] Maile Recinos MD, [facility] CPT-4: 89972 11/22/2017 ([id number]) Miscellaneou s no charge Diagnosis: Laceration without foreign body of right forearm, subsequent encounter[ICD10: S51.811D] Dominique Recinos MD, [facility] CPT-4: 33490 10/16/2017 ([id number]) Miscellaneou s no charge Diagnosis: Laceration without foreign body of right forearm, subsequent encounter[ICD10: S51.811D] Dominique Recinos MD, [facility] CPT-4: 22285 10/14/2017 ([id number]) Miscellaneou s no charge Diagnosis: Laceration without foreign body of right forearm, subsequent encounter[ICD10: S51.811D] Dominique Recinos MD, [facility] CPT-4: 14919 10/09/2017 ([id number]) 84073 EST. P ATIENT, LEVEL III Diagnosis: Type 2 diabetes mellitus with hyperglycemia[ICD10: E11.65] Dominique Recinos MD, C CPT-4: 75903 10/07/2017 ([id number]) 52237 EST. P ATIENT, LEVEL III Diagnosis: Type 2 diabetes mellitus with hyperglycemia[ICD10: E11.65] Fatmata Recinos MD, [facility] CPT-4: 14983 09/16/2017 ([id number]) 61875 EST. P ATIENT, LEVEL III Diagnosis: Essential (primary) hypertension[ICD10: I10] Dominique Recinos MD, C CPT-4: 29790 09/09/2017 ([id number]) Miscellaneou s no charge Diagnosis: Type 1 diabetes mellitus without complications[ICD10: E10.9] Fatmata Recinos MD, [facility] CPT-4: 41839 07/22/2017 ([id number]) 97352 EST. P ATIENT, LEVEL IV Diagnosis: Type 1 diabetes mellitus without complications[ICD10: E10.9] Diagnosis: Mixed hyperlipidemia[ICD10: E78.2] Diagnosis: Essential (primary) hypertension[ICD10: I10] Dominique Recinos MD, C CPT-4: 36482 07/16/2017 ([id number]) 89177 EST. P ATIENT, LEVEL III Diagnosis: Cough[ICD10: R05] Diagnosis: Acute recurrent maxillary sinusitis[ICD10: J01.01] Maile Recinos MD, [facility] CPT-4: 30352 06/14/2017 ([id number]) 99754 EST. P ATIENT, LEVEL IV Diagnosis: Type 1 diabetes mellitus without complications[ICD10: E10.9] Diagnosis: Essential (primary) hypertension[ICD10: I10] Dominique Recinos MD, C CPT-4: 43403 06/10/2017 ([id number]) 05445 EST. P ATIENT, LEVEL IV Diagnosis: Essential (primary) hypertension[ICD10: I10] Diagnosis: Type 1 diabetes mellitus without complications[ICD10: E10.9] Dominique Recinos MD, [facility] CPT-4: 84707 05/13/2017 91537 EST. PATIENT, LEVEL III Diagnosis: Sciatica, right side[ICD10: M54.31] Diagnosis: Low back pain[ICD10: M54.5] Fatmata Recinos MD, [facility] CPT-4: 91512 03/26/2017 ([id number]) 99844 EST. P ATIENT, LEVEL III Diagnosis: Type 1 diabetes mellitus without complications[ICD10: E10.9] Diagnosis: Essential (primary) hypertension[ICD10: I10] Dominique Recinos MD, C CPT-4: 55317 02/19/2017 ([id number]) 51416 EST. P ATIENT, LEVEL IV Diagnosis: Fever presenting with conditions classified elsewhere[ICD10: R50.81] Diagnosis: Weakness[ICD10: R53.1] Diagnosis: Frequency of micturition[ICD10: R35.0] Diagnosis: Type 1 diabetes mellitus without complications[ICD10: E10.9] Dominique Recinos MD, [facility] CPT-4: 67134 01/16/2017 ([id number]) 68701 EST. P ATIENT, LEVEL IV Diagnosis: Type 1 diabetes mellitus without complications[ICD10: E10.9] Diagnosis: Essential (primary) hypertension[ICD10: I10] Dominique Recinos MD, C CPT-4: 63064 01/08/2017 ([id number]) 05748 EST. P ATIENT, LEVEL IV Diagnosis: Essential (primary) hypertension[ICD10: I10] Diagnosis: Type 1 diabetes mellitus without complications[ICD10: E10.9] Dominique Recinos MD, [facility] CPT-4: 64732 11/21/2016 ([id number]) 76974 EST. 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 P ATIENT, LEVEL III Diagnosis: Chronic obstructive pulmonary disease with (acute) exacerbation[ICD10: J44.1] Diagnosis: Cough[ICD10: R05] Maile Recinos MD, [facility] CPT-4: 52610 10/08/2016 ([id number]) Miscellaneou s no charge Diagnosis: Cough[ICD10: R05] Diagnosis: Chronic obstructive pulmonary disease with (acute) exacerbation[ICD10: J44.1] Maile Recinos MD, [facility] CPT-4: 04744 10/01/2016 ([id number]) 23080 EST. P ATIENT, LEVEL III Diagnosis: Cough[ICD10: R05] Diagnosis: Acute bronchitis, unspecified[ICD10: J20.9] Maile Recinos MD, [facility] CPT-4: 00552 09/27/2016 ([id number]) 92687 EST. P ATIENT, LEVEL III Diagnosis: Type 1 diabetes mellitus without complications[ICD10: E10.9] Dominique Recinos MD, [facility] CPT-4: 31014 07/19/2016 ([id number]) 16641 EST. P ATIENT, LEVEL IV Diagnosis: Essential (primary) hypertension[ICD10: I10] Diagnosis: Type 1 diabetes mellitus without complications[ICD10: E10.9] Diagnosis: Other allergic rhinitis[ICD10: J30.89] Diagnosis: Acute laryngopharyngitis[ICD10: J06.0] Dominique Recinos MD, [facility] CPT-4: 85254 07/09/2016 ([id number]) 83201 EST. P ATIENT, LEVEL IV Diagnosis: Essential (primary) hypertension[ICD10: I10] Diagnosis: Type 1 diabetes mellitus without complications[ICD10: E10.9] Diagnosis: Mixed hyperlipidemia[ICD10: E78.2] Dominique Recinos MD, [facility] CPT- 4: 90825 06/06/2016 36214 EST. PATIENT, LEVEL III Diagnosis: Other allergic rhinitis[ICD10: J30.89] Diagnosis: Acute laryngopharyngitis[ICD10: J06.0] Fatmata Recinos MD, [facility] CPT-4: 89981 04/03/2016 ([id number]) 60461 EST. P ATIENT, LEVEL IV Diagnosis: Type 1 diabetes mellitus without complications[ICD10: E10.9] Diagnosis: Essential (primary) hypertension[ICD10: I10] Diagnosis: Pain in right hand[ICD10: M79.641] Dominique Recinos MD, [facility] CPT- 4: 53013 12/26/2015 ([id number]) 73727 EST. P ATIENT, LEVEL IV Diagnosis: Type 1 diabetes mellitus without complications[ICD10: E10.9] Diagnosis: Essential (primary) hypertension[ICD10: I10] Dominique Recinos MD, [facility] CPT-4: 97571 09/19/2015 ([id number]) 51279 EST. P ATIENT, LEVEL IV Diagnosis: Essential (primary) hypertension[ICD10: I10] Diagnosis: Mixed hyperlipidemia[ICD10: E78.2] Diagnosis: Type 1 diabetes mellitus without complications[ICD10: E10.9] Dominique Recinos MD, [facility] CPT-4: 43950 07/19/2015 ([id number]) 78849 EST. P ATIENT, LEVEL IV Diagnosis: Other specified dorsopathies, lumbar region[ICD10: M53.86] Diagnosis: Urge incontinence[ICD10: N39.41] Diagnosis: Type 1 diabetes mellitus without complications[ICD10: E10.9] Dominique Recinos MD, [facility] CPT-4: 35453 03/22/2015 ([id number]) 42513 EST. P ATIENT, LEVEL IV Diagnosis: Essential (primary) hypertension[ICD10: I10] Diagnosis: Other specified dorsopathies, lumbar region[ICD10: M53.86] Diagnosis: Other chronic pain[ICD10: G89.29] [facility] CPT-4: 66666 02/15/2015 ([id number] 08517 EST. P ATIENT, LEVEL IV Diagnosis: ESSENTIAL HYPERTENSION[ICD9: 401.9] Diagnosis: DIABETES TYPE II[ICD9: 250.00] Diagnosis: FALL FROM LADDER[ICD9: E881.0] Diagnosis: Right hip pain[ICD9: 719.45] Diagnosis: Left hand pain[ICD9: 729.5] Diagnosis: Sacroiliac joint pain[ICD9: 724.6] [facility] CPT- 4: 72837 11/15/2014 ([id number]) OFFICE VISI , [facility] - LEVEL 4 Diagnosis: DIABETES TYPE II[ICD9: 250.00] Diagnosis: ESSENTIAL HYPERTENSION[ICD9: 401.9] Diagnosis: HYPERLIPIDEMIA[ICD9: 272.4] [facility] CPT-4: 37180 08/13/2014 Plan of Care Planned Activity Notes [...] less controlled. 04/28/2018 Appointment: Dominique Recinos WPtel: [address] [place], [place] [address] (15 min) Moderate 04/28/2018 Patient Education: Patient [...] while seated. 12/25/2017 Appointment: Dominique Recinos WPtel: [phone] [facility] (15 min) Moderate 12/25/2017 Patient Education: Patient Medication Summary Completed 12/25/2017 Patient Education: Diabetes Completed 12/25/2017 Appointment: Dominique Recinos WPtel: [phone] [facility] [place] (15 min) Moderate 12/09/2017 Visit Plan: Diverticulitis - rx for antibiotic sent to pt's pharmacy - pt advised to avoid seeds, nuts, popcorn, or any other food which has been proven to upset the pt's stomach. 11/22/2017 Appointment: Maile Randolph WPtel: [phone] [phone] [place] (15 min) Moderate 11/22/2017 Patient Education: [...] blood glucose. 10/07/2017 App[facility]ment[phone] ([facility] min) Moderate 10/07/2017 Patient Education: [...] in clinic. 09/16/2017 [phone] ([facility]) Moderate 09/16/2017 Patient Education: Patient [...] home. 09/09/2017 Appointment: [phone] [place] (15 min) Moderate 09/09/2017 Patient Education: Patient Medication Summary Completed 09/09/2017 Appointment: Maile Randolph WPtel: [address] [phone] [place] (15 min) Moderate 09/06/2017 Appointment: [facility]Ptel[phone] [facility] [place] (15 min) Moderate 09/05/2017 Appointment: [facility]ata [facility]el[phone] [place] (15 min) Moderate 07/22/2017 Patient Education: [...] less controlled. ipro placed today - by EQUIPMENT SERVICE ENGINEER - pt to RTC on Saturday for [...] less controlled. ipro placed today - by EQUIPMENT SERVICE ENGINEER - pt to RTC on Saturday for [...] medications. 07/16/2017 Appointment: [facility]el[phone] [facility] (15 min) Moderate 07/16/2017 Patient Education: Patient Medication Summary Completed 07/16/2017 Visit Plan: Sinusitis - Pt has acut e infection - pain in face, maxillary region, Pt informed to use decongestant, RX given to patient, sinus rinses also recommended. Call if symptoms do not show improvement. 06/14/2017 Appointment: [facility]ile Randolph [facility]Ptel[phone] (30 min) Complex 06/14/2017 Patient Education: Patient [...] home. 06/10/2017 Appointment: Dominique Recinos WPtel: [phone] [facility] (15 min) Moderate 06/10/2017 Patient Education: Patient Medication Summary Completed 06/10/2017 Appointment: Fatmata Spann WPtel: [facility] [place] (30 min) Complex 06/03/2017 Visit Plan: [...] controlled. 05/13/2017 Appointment: [facility]Ptel[phone] [place] (15 min) Moderate 05/13/2017 Patient Education: Patient Medication Summary Completed 05/13/2017 Appointment: Domin[facility]inos [facility]Ptel[phone] [facility] [place] (30 min) Complex 05/03/2017 Appointment: [facility]ata Spann [facility]Ptel[phone] [place] (15 min) Moderate 04/12/2017 Appointment: Domin[facility]inos [facility]Ptel[facility] [phone] [facility] [place] (15 min) Moderate 04/11/2017 Appointment: [facility]Ptel[facility] [phone] [facility] [place] (15 min) Moderate 04/10/2017 Appointment: [facility]inosl[facility] [address] [facility] (15 min) Moderate 04/02/2017 Visit Plan: Low [...] injection. 03/26/2017 Appointment: Fatmata Spann [facility]Ptel: [phone] (30 min) Complex 03/26/2017 Appointment: Dominique Recinos [facility]Ptel[phone] [facility] (15 min) Moderate 03/26/2017 Patient Education: [...] at home. 02/19/2017 Appointment: Dominique Recinos WPtel: [facility]5 [facility] (15 min) Moderate 02/19/2017 Patient Education: Patient Medication Summary Completed 02/19/2017 Patient Education: Hypertension Completed 02/19/2017 Appointment: Dominique Recinos WPtel: [facility]5 [facility] (15 min) Moderate 02/12/2017 Visit Plan: Diabetes [...] above 100F. 01/16/2017 Appointment: Dominique Recinos WPtel: [facility]5 [facility] (15 min) Moderate 01/16/2017 Patient Education: Patient [...] at home. 01/08/2017 Appointment: Dominique Recinos WPtel: [address] [place], [place] [address] (15 min) Moderate 01/08/2017 Patient Education: Patient Medication Summary Completed 01/08/2017 Patient Education: Hypertension Completed 01/08/2017 Appointment: Dominique Recinos WPtel: [address] [place], [place] [phone] (15 min) Moderate 12/31/2016 Appointment: Dominique Recinos WPtel: [phone] [facility] (15 min) Moderate 12/18/2016 Visit Plan: Hypertension [...] starting to become less controlled. 11/21/2016 Appointment: Jorje Dominique WPtel: [phone] [facility] (15 min) Moderate 11/21/2016 Patient Education: Patient [...] potatoes, creamy coleslaw, etc. -- referral to refund specialist. Hyperlipidemia - pt has been counseled [...] coleslaw, etc. 10/16/2016 Appointment: Dominique Recinos WPtel: [address] [place], [place] [address] (15 min) Moderate 10/16/2016 Patient Education: Patient Medication Summary Completed 10/16/2016 Patient Education: Hypertension Completed 10/16/2016 Patient Education: Patient Medication Summary Completed 10/09/2016 Care Plan: Free T4 Pending 10/09/2016 Visit Plan: COPD exacerbation-cough -symptoms resolved-call if symptoms return-monitor blood sugars closely for the next few days and discussed diet. 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 10/01/2016 Appointment: Maile Randolph WPtel: [phone] [phone] (30 min) Complex 10/01/2016 Patient Education: Patient Medication Summary Completed 10/01/2016 Visit Plan: Bronchitis - acute case of bronchitis identified. Pt has been given antibiotics, breathing treatments as appropriate, and pt has been instructed to call if symptoms are not improved, or if symptoms acutely worsen. 09/27/2016 Appointment: Maile Randolph WPtel: [phone] [phone] (30 min) Complex 09/27/2016 Patient Education: Patient Medication Summary Completed 09/27/2016 Visit Plan: Diabetes Mellitus - con alice [...] controlled. 07/19/2016 Appointment: Dominique Recinos WPtel: [phone] [place] [phone] (15 min) Moderate 07/19/2016 Patient Education: Patient [...] surrogate. 07/10/2016 Appointment: Fatmata Spann WPtel: [phone] [facility] [facility] - Annual Wellness Visit 07/10/2016 Patient Education: [...] not improving 07/09/2016 Appointment: Domin[facility]inos [facility]Ptel[facility] (15 min) Moderate 07/09/2016 Patient Education: Patient Medication Summary Completed 07/09/2016 Patient Education: Hypertension Completed 07/09/2016 Appointment: Dominique Recinos WPtel: [phone] [facility] (15 min) Moderate 06/26/2016 Visit Plan: Hypertension - well con alice - continue with current medications, continue with [...] me dications. 06/06/2016 Appointment: Dominique Recinos WPtel: [facility]5 [facility] (15 min) Moderate 06/06/2016 Patient Education: Patient Medication Summary Completed 06/06/2016 Appointment: Dominique Recinos WPtel: [phone] [facility] (15 min) Moderate 04/30/2016 Visit Plan: URI [...] allergy spray. 04/03/2016 Appointment: [facility] Spann [facility]el[phone] (30 min) Complex 04/03/2016 Patient Education: Patient [...] Hypertension Completed 12/26/2015 Appointment: Dominique Recinos WPtel: [phone] [facility] (15 min) Moderate 12/19/2015 Visit Plan: [...] at home. 09/19/2015 Appointment: Domin[facility]inos [facility]Ptel[phone] (15 min) Moderate 09/19/2015 Patient Education: [...] dications. 07/19/2015 Appointment: Domin[facility]inos [facility]Ptel[phone] [place] (15 min) Moderate 07/19/2015 Patient [...] q10. Back pain - referral to [facility] physical therapy for further eval and treat. 03/22/2015 Appointment: Dominiqeu Recinos WPtel[phone] [place] (15 min) Moderate 03/22/2015 Patient Education: Patient Medication Summary Completed 03/22/2015 Care Plan: Referral Order SNOMED-CT : [id number] Ordered 03/22/2015 Visit Plan: Hypertension - well [...] dications. 08/13/2014 Appointment: Dominique Recinos WPtel: [phone] [facility] [place] (S[facility] New Patient 08/13/2014 Patient [...] potatoes, creamy coleslaw, etc. -- referral to refund specialist. Hyperlipidemia - pt has been counseled [...] show improvement. two old goats - from [employer] farm and home . Hypertension - well [...] less controlled. ipro placed today - by EQUIPMENT SERVICE ENGINEER - pt to RTC on Saturday for [...] less controlled. ipro placed today - by EQUIPMENT SERVICE ENGINEER - pt to RTC on Saturday for [...]
--- OUTSIDE RECORDS SUMMARY | 2019-06-14 17:14 | XMS REPORT | CCD ---
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 ica Part B [id number] Un known Family history Mother Diagnosis Age At Onset No Family Disease Entered N/A Father Diagnosis Age At Onset Heart Attack Unknown Diabetes Unknown Social History Social History Element Codes Description Effective Dates Number of children Unknown 2 Sons, 5 grandchildren, 11 great grandchildren 01/08/2017 Marital status Unknown W crystal [place] in 201606/06/[address]: 270077660 Never smoker 08/13/[address]: 299312370 Never drinks alcohol 08/13/2014 Allergies, Adverse Reactions, [...] Fill Instructions Benicar 40 mg tablet RxNorm: 390831 TAKE ONE TABLET BY MOUTH DAILY 05/07/2018 05/01/2019 Ac tive Zoloft 50 mg tablet RxNorm: 881582 TAKE ONE TABLET BY MOUTH DAILY 04/28/2018 04/22/2019 Ac tive gabapentin 100 mg ca psule RxNorm: 449130 TAKE ONE CAPSULE BY M OUTH THREE TIMES A DAY 04/09/2018 07/16/2018 Ac tive Novolog U-100 Insuli n aspart 100 unit/mL subcutaneous solution RxNorm: 002015 SSI 5 units over 150 and for every additional 50 add 2 units Unit(s) SQ TID adjust as needed for glucose control 12/25/2017 07/22/2018 Active Cipro 500 mg tablet RxNorm: 761386 1 Tablet(s) PO BID 11/22/2017 12/01/2017 Inactive clotrimazole 1 % top ical cream RxNorm: 227424 1 Application TOP BID 11/22/2017 12/05/2017 Inactive Flagyl 500 mg tablet RxNorm: 477941 1 Tablet(s) PO TID 11/22/2017 12/01/2017 Inactive Lantus U-100 Insulin 100 unit/mL subcutaneous solution RxNorm: 122733 17 Unit(s) SQ QAM 11/11/2017 07/08/2018 Active Novolog U-100 Insuli n aspart 100 unit/mL subcutaneous solution RxNorm: 266756 SSI 5 units over 150 and for every additional 50 add 2 units Unit(s) SQ TID adjust as needed for glucose control 11/11/2017 12/24/2017 Inactive gabapentin 100 mg ca psule RxNorm: 753090 TAKE ONE CAPSULE BY M OUTH THREE TIMES A DAY 11/05/2017 02/11/2018 Inactive Kenalog 40 mg/mL fanny pension for injection RxNorm: 0510762 1 Milliliter(s) Inj 06/14/2017 06/14/2017 In active Flonase Allergy Reli ef 50 mcg/actuation nasal spray,suspension RxNorm: 7551951 2 [place] NASAL daily 06/14/2017 06/20/2017 Inactive doxycycline hyclate 100 mg tablet RxNorm: 138453 1 Tablet(s) PO BID 06/14/2017 06/20/2017 Inactive Lantus U-100 Insulin 100 unit/mL subcutaneous solution RxNorm: 111488 17 Unit(s) SQ QAM 06/10/2017 07/09/2017 Inactive gabapentin 100 mg ca psule RxNorm: 640925 TAKE ONE CAPSULE BY M OUTH THREE TIMES A DAY 05/23/2017 08/29/2017 Inactive Lantus U-100 Insulin 100 unit/mL subcutaneous solution RxNorm: 395020 15 Unit(s) SQ QAM 05/14/2017 06/09/2017 Inactive Novolog U-100 Insuli n aspart 100 unit/mL subcutaneous solution RxNorm: 304800 SSI 5 units over 150 and for every additional 50 add 2 units Unit(s) SQ TID adjust as needed for glucose control 04/24/2017 11/10/2017 Inactive Zocor 20 mg tablet RxNorm: 108743 1 Tablet(s) PO daily 04/05/2017 03/30/2018 Inactive Kenalog 40 mg/mL fanny pension for injection RxNorm: 9715154 1 Milliliter(s) Inj 03/26/2017 03/26/2017 In active Novolog 100 unit/mL subcutaneous solution RxNorm: 432217 SSI 5 units over 150 and for every additional 50 add 2 units Unit(s) SQ TID adjust as needed for glucose control 02/19/2017 04/23/2017 Inactive Lantus 100 unit/mL s ubcutaneous solution RxNorm: 629254 10 Unit(s) SQ QAM 02/19/2017 05/13/2017 In active ceftriaxone 500 mg s olution for injection RxNorm: 0182237 Inj 01/16/2017 01/16/2017 Inactive Lantus 100 unit/mL s ubcutaneous solution RxNorm: 366287 7 Unit(s) SQ QAM 01/16/2017 02/18/2017 In active Lantus 100 unit/mL s ubcutaneous solution RxNorm: 636619 10 Unit(s) SQ daily 01/08/2017 05/12/2017 In active gabapentin 100 mg ca psule RxNorm: 873791 TAKE ONE CAPSULE BY M OUTH THREE TIMES A DAY 11/30/2016 02/03/2017 Inactive Zoloft 50 mg tablet RxNorm: 713116 TAKE ONE TABLET BY MOUTH DAILY 10/30/2016 04/27/2017 In active Zocor 20 mg tablet RxNorm: 096509 1 Tablet(s) PO daily 10/16/2016 04/04/2017 Inactive stop the 40mg dose of zocor, start on 20 mg Lantus 100 unit/mL s ubcutaneous solution RxNorm: 766615 15 Unit(s) SQ daily 10/16/2016 01/07/2017 In active Novolog 100 unit/mL subcutaneous solution RxNorm: 995665 SSI 5 units over 150 and for every additional 50 add 2 units Unit(s) SQ TID adjust as needed for glucose control 10/16/2016 02/18/2017 Inactive prednisone 20 mg tablet RxNorm: 746966 1 Tablet(s) PO BID 10/01/2016 10/05/2016 Inactive Kenalog 40 mg/mL fanny pension for injection RxNorm: 8632877 1 Milliliter(s) Inj 09/27/2016 09/27/2016 In active Zithromax Z-Kishor 250 mg tablet RxNorm: 820457 1 Tablet(s) PO UD 09/27/2016 10/01/2016 Inactive ceftriaxone 500 mg s olution for injection RxNorm: 4189000 1 Milliliter(s) Inj 09/27/2016 09/27/2016 In active Augmentin 500 mg-125 mg tablet RxNorm: 370189 1 Tablet(s) PO BID 09/22/2016 09/26/2016 Inactive Tessalon Perles 100 mg capsule RxNorm: 168572 1 Capsule(s) PO Q8 LA N as needed 09/22/2016 04/27/2018 In active metoprolol tartrate 50 mg tablet RxNorm: 892833 TAKE ONE TABLET BY [facility] TWICE A DAY 08/02/2016 07/27/2017 Inactive Novolog 100 unit/mL subcutaneous solution RxNorm: 255790 10 Unit(s) SQ TID adj ust as needed for glucose control 07/19/2016 10/15/2016 Inactive Humalog 100 unit/mL subcutaneous solution RxNorm: 731643 INJECT 10 UNITS UNDER THE SKIN BEFORE EACH MEAL 07/16/2016 07/16/2016 Inactive Kenalog 40 mg/mL fanny pension for injection RxNorm: 9376555 1 Milliliter(s) Inj 07/09/2016 07/09/2016 In active ceftriaxone 500 mg s olution for injection RxNorm: 1634925 Inj 07/09/2016 07/09/2016 Inactive Lantus 100 unit/mL s ubcutaneous solution RxNorm: 796455 Unit(s) INJECT 13 UNI TS UNDER THE SKIN IN THE MORNING 06/06/2016 10/15/2016 Inactive Zoloft 50 mg tablet RxNorm: 096282 TAKE ONE TABLET BY MOUTH DAILY 04/27/2016 07/25/2016 In active Lantus 100 unit/mL s ubcutaneous solution RxNorm: 893268 INJECT 20 UNITS UNDER THE SKIN AT BEDTIME 04/27/2016 06/05/2016 Inactive amoxicillin 500 mg c apsule RxNorm: 818037 1 Capsule(s) PO TID 04/03/2016 04/12/2016 Inactive Zyrtec 10 mg tablet RxNorm: 1179142 1 Tablet(s) PO daily 04/03/2016 05/02/2016 Inactive hydrochlorothiazide 12.5 mg capsule RxNorm: 305304 TAKE ONE CAPSULE BY M OUTH DAILY 03/12/2016 12/06/2016 In active Benicar 40 mg tablet RxNorm: 626817 1 Tablet(s) PO daily 02/28/2016 04/27/2016 Inactive Benicar 40 mg tablet RxNorm: 299782 1 Tablet(s) PO daily 02/20/2016 02/27/2016 Inactive gabapentin 100 mg ca psule RxNorm: 062390 TAKE ONE CAPSULE BY M OUTH THREE TIMES A DAY 01/09/2016 04/16/2016 Inactive metoprolol tartrate 50 mg tablet RxNorm: 406508 TAKE ONE TABLET BY MO UTH TWICE A DAY 01/09/2016 04/07/2016 Inactive Humalog 100 unit/mL subcutaneous solution RxNorm: 911890 5-10 Unit(s) SQ AC 07/19/2015 07/18/2016 In active Lantus 100 unit/mL s ubcutaneous solution RxNorm: 859374 13 Unit(s) SQ QAM 07/19/2015 01/15/2017 In active Lantus 100 unit/mL s ubcutaneous solution RxNorm: 870557 20 Unit(s) SQ QHS 07/14/2015 07/18/2015 In active Zoloft 50 mg tablet RxNorm: 832115 1 Tablet(s) PO daily 05/19/2015 09/15/2015 Inactive Humalog 100 unit/mL subcutaneous solution RxNorm: 177061 10 Unit(s) SQ AC 05/11/2015 07/18/2015 In active metoprolol tartrate 50 mg tablet RxNorm: 295849 1 Tablet(s) PO BID 04/28/2015 08/25/2015 Inactive Lantus 100 unit/mL s ubcutaneous solution RxNorm: 237839 20 Unit(s) SQ QHS 04/28/2015 07/13/2015 In active Vesicare 10 mg tablet RxNorm: 443263 1 Tablet(s) PO QPM 03/22/2015 09/18/2015 Inactive hydrochlorothiazide 12.5 mg capsule RxNorm: 919901 1 Tablet(s) PO daily 01/04/2015 12/29/2015 In active gabapentin 100 mg ca psule RxNorm: 321133 1 Capsule(s) PO TID 11/29/2014 03/28/2015 Inactive [...] Date Active aspirin 81 mg tablet RxNorm: 487945 1 Tablet(s) PO daily No Start Date Active doxazosin 2 mg tablet RxNorm: 577880 1 Tablet(s) PO QHS No Start Date Active Fish Oil oral RxNorm: 0168438 oral No Start Date Active multivitamin capsule RxNorm: 1 Capsule(s) PO daily No Start Date Active Humalog 100 unit/mL subcutaneous solution RxNorm: 585799 Unit(s) SQ No Start Date 05/10/2015 Inactive Zoloft 50 mg tablet RxNorm: 993681 1 Tablet(s) PO daily No Start Date 05/18/2015 Inactive gabapentin 100 mg ca psule RxNorm: 520811 1 Capsule(s) PO daily No Start Date 11/28/2014 Inactive metoprolol tartrate 50 mg tablet RxNorm: 432240 1 Tablet(s) PO TID No Start Date 04/27/2015 Inactive Benicar 40 mg tablet RxNorm: 373980 1 Tablet(s) PO daily No Start Date 02/19/2016 Inactive hydrochlorothiazide 25 mg tablet RxNorm: 348403 1 Tablet(s) PO daily No Start Date 01/03/2015 Inactive Lantus 100 unit/mL s ubcutaneous solution RxNorm: 391007 13 Unit(s) SQ No Start Date 04/27/2015 Inactive Zocor 40 mg tablet RxNorm: 969554 1 Tablet(s) PO daily No Start Date 10/15/2016 Inactive Medication Administered Medication Codes Instruc tions Start Date Status Kenalog 40 mg/mL suspension for injection RxNorm: 5532076 1Milliliter 06/14/2017 N o longer Active Kenalog 40 mg/mL suspension for injection RxNorm: 9551422 1Milliliter 03/26/2017 N o longer Active ceftriaxone 500 mg solution for injection RxNorm: 5668476 01/16/2017 No longer A ctive Kenalog 40 mg/mL suspension for injection RxNorm: 3972219 1Milliliter 09/27/2016 N o longer Active ceftriaxone 500 mg solution for injection RxNorm: 8155010 1Milliliter 09/27/2016 N o longer Active Kenalog 40 mg/mL suspension for injection RxNorm: 3525511 1Milliliter 07/09/2016 N o longer Active ceftriaxone 500 mg solution for injection RxNorm: 1076894 07/09/2016 No longer A ctive Immunizations Vaccine [...] Item Item Code Result Date Comp Metabolic Nkh718 NA 137 mEq/L 04/28/2018 Comp Metabolic Lvg174 K 4.1 mEq/L 04/28/2018 Comp Metabolic Uio839 CL 101 mEq/L 04/28/2018 Comp Metabolic Jpj860 CO2 28.0 mEq/L 04/28/2018 Comp Metabolic Ysf151 AN ION GAP 12 04/28/2018 Comp Metabolic Djz210 GL UCOSE 195 mg/dL 04/28/2018 Comp Metabolic Ufj846 Cr eat 0.7 mg/dL 04/28/2018 Comp Metabolic Uyh695 eG FR 81 ml/min/1.73m2 04/28 Comp Metabolic Hgd595 BUN 24 mg/dL 04/28/2018 Comp Metabolic Urd514 B/ C Ratio 33.3 Ratio 04/28/2018 Comp Metabolic Uww193 CA LCIUM 9.4 mg/dL 04/28/2018 Comp Metabolic Ptt555 AL K PHOS 72 U/L 04/28/2018 Comp Metabolic Iww318 T(SGOT) 15 U/L 04/28/2018 Comp Metabolic Ybw009 AL T(SGPT) 11 U/L 04/28/2018 Comp Metabolic Cxu181 BI LI T 0.6 mg/dL 04/28/2018 Comp Metabolic Tsm113 AL BUMIN 4.0 g/dL 04/28/2018 Comp Metabolic Dkr098 TP RO 6.1 g/dL 04/28/2018 Comp Metabolic Liu349 GL OB 2.1 g/dL 04/28/2018 Comp Metabolic Ruc301 A/ G Ratio 2.0 Ratio 04/28/2018 Comp Metabolic Txc766 Os mo 283 mOsmo 04/28/2018 %Hba1C Stf182 % HbA1c 49288-7 7.5 % 04/28/2018 %Hba1C Wnt522 Gluc Ave 169 mg/dL 04/28/2018 %Hba1C Uun669 % HbA1c 91266-1 7.1 % 12/25/2017 %Hba1C Dsv031 Gluc Ave 157 mg/dL 12/25/2017 Comp Metabolic Ucu003 NA 139 mEq/L 12/25/2017 Comp Metabolic Bni010 K 4.1 mEq/L 12/25/2017 Comp Metabolic Yym584 CL 104 mEq/L 12/25/2017 Comp Metabolic Mjh838 CO2 28.0 mEq/L 12/25/2017 Comp Metabolic Woa552 AN ION GAP 11 12/25/2017 Comp Metabolic Qav669 GL UCOSE 129 mg/dL 12/25/2017 Comp Metabolic Fjh650 Cr eat 0.7 mg/dL 12/25/2017 Comp Metabolic Wzs166 eG FR 83 ml/min/1.73m2 12/25 Comp Metabolic Tjm880 BUN 22 mg/dL 12/25/2017 Comp Metabolic Ztg755 B/ C Ratio 31.0 Ratio 12/25/2017 Comp Metabolic Eri218 CA LCIUM 9.4 mg/dL 12/25/2017 Comp Metabolic Oeu073 AL K PHOS 70 U/L 12/25/2017 Comp Metabolic Ynr683 T(SGOT) 16 U/L 12/25/2017 Comp Metabolic Jxb828 AL T(SGPT) 12 U/L 12/25/2017 Comp Metabolic Gsz324 BI LI T 0.5 mg/dL 12/25/2017 Comp Metabolic Ivq510 AL BUMIN 4.2 g/dL 12/25/2017 Comp Metabolic Zbv965 TP RO 6.1 g/dL 12/25/2017 Comp Metabolic Ape957 GL OB 1.9 g/dL 12/25/2017 Comp Metabolic Enw760 A/ G Ratio 2.1 Ratio 12/25/2017 Comp Metabolic Gdt211 Os mo 283 mOsmo 12/25/2017 %Hba1C Mov662 % HbA1c 02047-1 8.0 % 05/13/2017 %Hba1C Qjv132 Gluc Ave 183 mg/dL 05/13/2017 Comp Metabolic Cmh491 NA 135 mEq/L 05/13/2017 Comp Metabolic Cie244 K 3.8 mEq/L 05/13/2017 Comp Metabolic Xxm944 CL 99 mEq/L 05/13/2017 Comp Metabolic Fgp510 CO2 29.0 mEq/L 05/13/2017 Comp Metabolic Fub894 AN ION GAP 11 05/13/2017 Comp Metabolic Qlz077 GL UCOSE 155 mg/dL 05/13/2017 Comp Metabolic Fow129 Cr eat 0.7 mg/dL 05/13/2017 Comp Metabolic Oar239 eG FR 90 ml/min/1.73m2 05/13 Comp Metabolic Jmq279 BUN 18 mg/dL 05/13/2017 Comp Metabolic Mge233 B/ C Ratio 27.3 Ratio 05/13/2017 Comp Metabolic Tri060 CA LCIUM 8.9 mg/dL 05/13/2017 Comp Metabolic Bfg171 AL K PHOS 90 U/L 05/13/2017 Comp Metabolic Aha721 T(SGOT) 18 U/L 05/13/2017 Comp Metabolic Kro573 AL T(SGPT) 15 U/L 05/13/2017 Comp Metabolic Dzn686 BI LI T 0.5 mg/dL 05/13/2017 Comp Metabolic Okw766 AL BUMIN 4.0 g/dL 05/13/2017 Comp Metabolic Nzy215 TP RO 5.9 g/dL 05/13/2017 Comp Metabolic Uwd182 GL OB 1.9 g/dL 05/13/2017 Comp Metabolic Pto267 A/ G Ratio 2.1 Ratio 05/13/2017 Comp Metabolic Lpg296 Os mo 275 mOsmo 05/13/2017 Urine Culture Ucult Prel iminary NO Growth Day 1 01/18 Urine Culture Ucult Comp lete NO Growth Day 2 01/18 Free T4 Pzi350 FREE T4 1.13 ng/dL 10/09/2016 Tsh Ord6 [...] 31.5 pg 10/08/2016 Cbc With Differential Ord2 [place]% 4.0 % 10/08/2016 Cbc With Differential Ord2 [...] 0.96 K/ul 10/08/2016 Cbc With Differential Ord2 [place] ABS# 0.4 K/ul 10/08/2016 Cbc With Differential Ord2 Eos ABS# 0.0 K/ul 10/08/2016 Cbc With Differential Ord2 Baso ABS# 0.0 K/ul 10/08/2016 Comp Metabolic Mwl224 NA 135 mEq/L 10/08/2016 Comp Metabolic Kin863 K 4.3 mEq/L 10/08/2016 Comp Metabolic Noi346 CL 98 mEq/L 10/08/2016 Comp Metabolic Kkb478 CO2 22.0 mEq/L 10/08/2016 Comp Metabolic Urs799 AN ION GAP 19 10/08/2016 Comp Metabolic Tkj114 GL UCOSE 400 mg/dL 10/08/2016 Comp Metabolic Rku542 Cr eat 0.7 mg/dL 10/08/2016 Comp Metabolic Ufy183 eG FR 79 ml/min/1.73m2 10/08 Comp Metabolic Gar528 BUN 27 mg/dL 10/08/2016 Comp Metabolic Esg608 B/ C Ratio 36.5 Ratio 10/08/2016 Comp Metabolic Bae430 CA LCIUM 9.1 mg/dL 10/08/2016 Comp Metabolic Ulw745 AL K PHOS 65 U/L 10/08/2016 Comp Metabolic Gyc766 T(SGOT) 28 U/L 10/08/2016 Comp Metabolic Pzr767 AL T(SGPT) 24 U/L 10/08/2016 Comp Metabolic Dad656 BI LI T 0.7 mg/dL 10/08/2016 Comp Metabolic Zlo231 AL BUMIN 3.8 g/dL 10/08/2016 Comp Metabolic Rub917 TP RO 6.0 g/dL 10/08/2016 Comp Metabolic Loo906 GL OB 2.2 g/dL 10/08/2016 Comp Metabolic Ivw601 A/ G Ratio 1.7 Ratio 10/08/2016 Comp Metabolic Bek549 Os mo 292 mOsmo 10/08/2016 %Hba1C Dkr691 % HbA1c 86416-6 7.0 % 10/08/2016 %Hba1C Ekx209 Gluc Ave 154 mg/dL 10/08/2016 Microalbumin Nhi808 Micr oAlb <0.7 mg/dL 10/08/2016 Lipid Ord30 [...] OK? TNP:Duplicate Order 04/03/2016 C A/B FLU [id number] Influe nza A Scr Negative 04/03/2016 C A/B FLU 4017274 Influe nza B Scr Negative 04/03/2016 Comp Metabolic Wto277 NA 138 mEq/L 09/15/2015 Comp Metabolic Axb703 K 4.4 mEq/L 09/15/2015 Comp Metabolic Htk949 CL 103 mEq/L 09/15/2015 Comp Metabolic Tpm874 CO2 29.0 mEq/L 09/15/2015 Comp Metabolic Edm207 AN ION GAP 10 09/15/2015 Comp Metabolic Tvm851 GL UCOSE 156 mg/dL 09/15/2015 Comp Metabolic Xgz474 Cr eat 0.7 mg/dL 09/15/2015 Comp Metabolic Pmt705 eG FR 79 ml/min/1.73m2 09/14 Comp Metabolic Vei847 BUN 23 mg/dL 09/15/2015 Comp Metabolic Rks394 B/ C Ratio 31.1 Ratio 09/15/2015 Comp Metabolic Yxm943 CA LCIUM 9.1 mg/dL 09/15/2015 Comp Metabolic Xdn894 AL K PHOS 58 U/L 09/15/2015 Comp Metabolic Kdn904 T(SGOT) 19 U/L 09/15/2015 Comp Metabolic Vsb074 AL T(SGPT) 11 U/L 09/15/2015 Comp Metabolic Dnr364 BI LI T 0.6 mg/dL 09/15/2015 Comp Metabolic Lbh238 AL BUMIN 3.9 g/dL 09/15/2015 Comp Metabolic Ivr607 TP RO 5.8 g/dL 09/15/2015 Comp Metabolic Mei381 GL OB 1.9 g/dL 09/15/2015 Comp Metabolic Rfw235 A/ G Ratio 2.1 Ratio 09/15/2015 Comp Metabolic Fkj282 Os mo 283 mOsmo 09/15/2015 Cbc With [...] 30.5 pg 09/15/2015 Cbc With Differential Ord2 [place]% 10.2 % 09/15/2015 Cbc With Differential Ord2 [...] 0.86 K/ul 09/15/2015 Cbc With Differential Ord2 [place] ABS# 0.5 K/ul 09/15/2015 Cbc With Differential Ord2 Eos ABS# 0.1 K/ul 09/15/2015 Cbc With Differential Ord2 Baso ABS# 0.0 K/ul 09/15/2015 Tsh Ord6 hTSH II 0.76 uIU/mL 09/15/2015 Lipid Ord30 CHOL 139 mg/dL 09/15/2015 Lipid Ord30 HDL 57.0 mg/dl 09/15/2015 Lipid Ord30 TRIG 76 mg/dL 09/15/2015 Lipid Ord30 LDL 67 mg/dL 09/15/2015 Lipid Ord30 C/HDL 2.4 Ratio 09/15/2015 %Hba1C Pdr080 % HbA1c 11526-2 6.6 % 09/15/2015 %Hba1C Nio119 Gluc Ave 143 mg/dL 09/15/2015 Tsh Ord6 hTSH II 0.68 uIU/mL 06/02/2015 %Hba1C Zqd668 % HbA1c 49218-7 6.5 % 06/02/2015 %Hba1C Tym664 Gluc Ave 140 mg/dL 06/02/2015 Comp Metabolic Wyw666 NA 139 mEq/L 06/02/2015 Comp Metabolic Arh309 K 4.5 mEq/L 06/02/2015 Comp Metabolic Tzo279 CL 104 mEq/L 06/02/2015 Comp Metabolic Uij320 CO2 25.0 mEq/L 06/02/2015 Comp Metabolic Eyw502 AN ION GAP 15 06/02/2015 Comp Metabolic Jkf017 GL UCOSE 123 mg/dL 06/02/2015 Comp Metabolic Qcz618 Cr eat 0.7 mg/dL 06/02/2015 Comp Metabolic Ipw015 eG FR 92 ml/min/1.73m2 06/01 Comp Metabolic Tie889 BUN 21 mg/dL 06/02/2015 Comp Metabolic Fbs226 B/ C Ratio 32.3 Ratio 06/02/2015 Comp Metabolic Xmr958 CA LCIUM 9.5 mg/dL 06/02/2015 Comp Metabolic Xms651 AL K PHOS 66 U/L 06/02/2015 Comp Metabolic Ejg427 T(SGOT) 19 U/L 06/02/2015 Comp Metabolic Cbs681 AL T(SGPT) 13 U/L 06/02/2015 Comp Metabolic Qmn910 BI LI T 0.5 mg/dL 06/02/2015 Comp Metabolic Biu919 AL BUMIN 4.0 g/dL 06/02/2015 Comp Metabolic Bui306 TP RO 6.3 g/dL 06/02/2015 Comp Metabolic Ing119 GL OB 2.3 g/dL 06/02/2015 Comp Metabolic Rgi541 A/ G Ratio 1.7 Ratio 06/02/2015 Comp Metabolic Duw211 Os mo 282 mOsmo 06/02/2015 %Hba1C Fec347 % HbA1c 20960-6 6.7 % 02/17/2015 %Hba1C Yum032 Gluc Ave 146 mg/dL 02/17/2015 Comp Metabolic Llf456 NA 133 mEq/L 02/17/2015 Comp Metabolic Xss118 K 4.3 mEq/L 02/17/2015 Comp Metabolic Ybu905 CL 99 mEq/L 02/17/2015 Comp Metabolic Glf652 CO2 27.0 mEq/L 02/17/2015 Comp Metabolic Zte987 AN ION GAP 11 02/17/2015 Comp Metabolic Fes168 GL UCOSE 239 mg/dL 02/17/2015 Comp Metabolic Tnb875 Cr eat 0.7 mg/dL 02/17/2015 Comp Metabolic Nfv089 eG FR 79 ml/min/1.73m2 02/17 Comp Metabolic Ahs405 BUN 24 mg/dL 02/17/2015 Comp Metabolic Wxc109 B/ C Ratio 32.4 Ratio 02/17/2015 Comp Metabolic Fuu928 CA LCIUM 9.1 mg/dL 02/17/2015 Comp Metabolic Ltz605 AL K PHOS 75 U/L 02/17/2015 Comp Metabolic Waj938 T(SGOT) 18 U/L 02/17/2015 Comp Metabolic Hsv564 AL T(SGPT) 11 U/L 02/17/2015 Comp Metabolic Zak035 BI LI T 0.6 mg/dL 02/17/2015 Comp Metabolic Hfl691 AL BUMIN 4.2 g/dL 02/17/2015 Comp Metabolic Ite455 TP RO 6.2 g/dL 02/17/2015 Comp Metabolic Lrm319 GL OB 2.0 g/dL 02/17/2015 Comp Metabolic Kkz264 A/ G Ratio 2.1 Ratio 02/17/2015 Comp Metabolic Vhy327 Os mo 278 mOsmo 02/17/2015 %Hba1C Zuw381 % HbA1c 93851-5 6.7 % 11/15/2014 %Hba1C Uyi464 Gluc Ave 146 mg/dL 11/15/2014 Comp Metabolic Ofo945 NA 134 mEq/L 11/15/2014 Comp Metabolic Vxw424 K 4.5 mEq/L 11/15/2014 Comp Metabolic Ocf908 CL 101 mEq/L 11/15/2014 Comp Metabolic Ryg489 CO2 27.0 mEq/L 11/15/2014 Comp Metabolic Hmb078 AN ION GAP 11 11/15/2014 Comp Metabolic Oye965 GL UCOSE 293 mg/dL 11/15/2014 Comp Metabolic Zju600 Cr eat 0.7 mg/dL 11/15/2014 Comp Metabolic Yfn479 eG FR 87 ml/min/1.73m2 11/15 Comp Metabolic Ujl862 BUN 20 mg/dL 11/15/2014 Comp Metabolic Hcc895 B/ C Ratio 29.4 Ratio 11/15/2014 Comp Metabolic Xig417 CA LCIUM 9.0 mg/dL 11/15/2014 Comp Metabolic Msu792 AL K PHOS 67 U/L 11/15/2014 Comp Metabolic Rot509 T(SGOT) 17 U/L 11/15/2014 Comp Metabolic Oub115 AL T(SGPT) 10 U/L 11/15/2014 Comp Metabolic Lfr951 BI LI T 0.6 mg/dL 11/15/2014 Comp Metabolic Iww637 AL BUMIN 4.0 g/dL 11/15/2014 Comp Metabolic Iju552 TP RO 6.0 g/dL 11/15/2014 Comp Metabolic Xlf679 GL OB 2.0 g/dL 11/15/2014 Comp Metabolic Pck321 A/ G Ratio 2.0 Ratio 11/15/2014 Comp Metabolic Mif270 Os mo 282 mOsmo 11/15/2014 Review of [...] GLUC MONITOR CONT PH YS I&R CPT-4: 33788 09/16/2017 GLUCOSE MONITORING CONT CPT-4: 23529 07/16/2017 TRIAMCINOLONE ACET I [place] NOS CPT-4: J3301 06/14/2017 DRAIN/INJECT JOINT/B URSA CPT-4: 19989 03/26/2017 TRIAMCINOLONE ACET I [place] NOS CPT-4: J3301 03/26/2017 URINALYSIS NONAUTO W /O SCOPE CPT-4: 03246 01/16/2017 THER/PROPH/DIAG INJ SC/IM CPT-4: 68142 01/16/2017 ROCEPHIN, PER 250 MG CPT-4: J0696 01/16/2017 DESTRUCT PREMALG LESION CPT-4: 03890 10/16/2016 TRIAMCINOLONE ACET I [place] NOS CPT-4: J3301 09/27/2016 ROCEPHIN, PER 250 MG CPT-4: J0696 09/27/2016 PPPS, SUBSEQ VISIT CPT- 4: G0439 07/10/2016 THER/PROPH/DIAG INJ SC/IM CPT-4: 88999 07/09/2016 TRIAMCINOLONE ACET I [place] NOS CPT-4: J3301 07/09/2016 ROCEPHIN, PER 250 MG CPT-4: J0696 07/09/2016 ADMIN PNEUMOCOCCAL V ACCINE SNOMED CT: 24290324 CPT-4: G0009 02/15/2015 PNEUMOCOCCAL VACC 13 LIM[place] IM Formatting Model/CDA Sections, Assigned to SNOMED CT: 21542050 CPT-4: 74467Escvdyz 02/15/2015 ADMIN INFLUENZA VIRU S VAC CPT-4: G0008 12/10/2014 FLU VACC 4 LIMA 3 YRS PLUS IM Formatting Model/CDA Sections, Assigned to SNOMED CT: 39757969 CPT-4: 93973Fwyqufl 12/10/2014 Vital Signs Date Vital 04/28/2018 Blood Pressure 1: 110/58 Code: 8480-6 BMI: 24.0 Code: 73475-3 Heart Rate 1: 56 bpm Height: 5'2" Respiratory Rate: 18 bpm SpO2: 98% Weight: 131 lbs 12/25/2017 Blood Pressure 1: 140/52 Code: 8480-6 BMI: 24.0 Code: 40624-9 Heart Rate 1: 64 bpm Height: 5'2" Respiratory Rate: 18 bpm SpO2: 96% Weight: 131 lbs 11/22/2017 Blood Pressure 1: 128/54 Code: 8480-6 BMI: 23.4 Code: 62926-4 Heart Rate 1: 62 bpm Height: 5'2" SpO2: 97% Weight: 128 lbs 10/07/2017 Blood Pressure 1: 148/68 Code: 8480-6 BMI: 23.2 Code: 56012-9 Heart Rate 1: 68 bpm Height: 5'2" SpO2: 98% Weight: 127 lbs 09/16/2017 Blood Pressure 1: 134/80 Code: 8480-6 BMI: 22.5 Code: 71267-0 Heart Rate 1: 86 bpm Height: 5'2" SpO2: 98% Weight: 123 lbs 09/09/2017 Blood Pressure 1: 150/66 Code: 8480-6 Blood Pressure 1: 138/72 Code: 8480-6 BMI: 22.9 Code: 29783-0 Heart Rate 1: 81 bpm Height: 5'2" SpO2: 98% Weight: 125 lbs 07/16/2017 Blood Pressure 1: 144/68 Code: 8480-6 BMI: 21.9 Code: 82968-2 Heart Rate 1: 73 bpm Height: 5'2" SpO2: 98% Weight: 120 lbs 06/14/2017 Blood Pressure 1: 132/64 Code: 8480-6 BMI: 22.3 Code: 97292-3 Heart Rate 1: 77 bpm Height: 5'2" SpO2: 98% Temperature: 37.0 (C ) / 98.6 (F) Weight: 122 lbs 06/10/2017 Blood Pressure 1: 134/64 Code: 8480-6 BMI: 22.5 Code: 80522-7 Heart Rate 1: 78 bpm Height: 5'2" SpO2: 95% Weight: 123 lbs 05/13/2017 Blood Pressure 1: 140/66 Code: 8480-6 BMI: 21.6 Code: 28124-4 Heart Rate 1: 80 bpm Height: 5'2" SpO2: 98% Weight: 118 lbs 03/26/2017 Blood Pressure 1: 150/78 Code: 8480-6 BMI: 23.2 Code: 64169-8 Heart Rate 1: 73 bpm Height: 5'2" SpO2: 99% Weight: 127 lbs 02/19/2017 Blood Pressure 1: 126/64 Code: 8480-6 BMI: 22.9 Code: 99553-1 Heart Rate 1: 74 bpm Height: 5'2" SpO2: 99% Weight: 125 lbs 01/16/2017 Blood Pressure 1: 136/68 Code: 8480-6 Heart Rate 1: 97 bpm Height: 5'2" Respiratory Rate: 16 bpm Temperature: 37.5 (C ) / 99.5 (F) Weight: 01/08/2017 Blood Pressure 1: 144/60 Code: 8480-6 BMI: 23.0 Code: 91815-6 Heart Rate 1: 71 bpm Height: 5'2" SpO2: 96% Weight: 126 lbs 11/21/2016 Blood Pressure 1: 150/62 Code: 8480-6 BMI: 23.2 Code: 83173-2 Heart Rate 1: 73 bpm Height: 5'2" SpO2: 94% Weight: 127 lbs 10/16/2016 Blood Pressure 1: 142/82 Code: 8480-6 BMI: 22.9 Code: 92317-2 Heart Rate 1: 80 bpm Height: 5'2" SpO2: 96% Weight: 125 lbs 10/08/2016 Blood Pressure 1: 150/72 Code: 8480-6 Heart Rate 1: 65 bpm Height: 5'2" SpO2: 98% 10/01/2016 Blood Pressure 1: 152/76 Code: 8480-6 Heart Rate 1: 69 bpm Height: 5'2" SpO2: 97% 09/27/2016 Blood Pressure 1: 122/64 Code: 8480-6 BMI: 23.3 Code: 20924-5 Heart Rate 1: 80 bpm Height: 5'2" SpO2: 98% Weight: 127 lbs 8 oz 07/19/2016 Blood Pressure 1: 118/68 Code: 8480-6 BMI: 23.0 Code: 69796-5 Heart Rate 1: 62 bpm Height: 5'2" SpO2: 97% Weight: 126 lbs 07/10/2016 Blood Pressure 1: 132/64 Code: 8480-6 BMI: 23.4 Code: 20834-2 Heart Rate 1: 82 bpm Height: 5'2" SpO2: 98% Waist Measure (cm): 76 cm Weight: 128 lbs 07/09/2016 Blood Pressure 1: 132/64 Code: 8480-6 BMI: 23.4 Code: 43113-6 Heart Rate 1: 82 bpm Height: 5'2" SpO2: 98% Temperature: 37.2 (C ) / 98.9 (F) Weight: 128 lbs 06/06/2016 Blood Pressure 1: 144/66 Code: 8480-6 BMI: 23.4 Code: 30745-5 Heart Rate 1: 77 bpm Height: 5'2" SpO2: 97% Weight: 128 lbs 04/03/2016 Blood Pressure 1: 164/70 Code: 8480-6 BMI: 24.5 Code: 20429-2 Heart Rate 1: 80 bpm Height: 5'2" SpO2: 98% Weight: 134 lbs 12/26/2015 Blood Pressure 1: 130/72 Code: 8480-6 BMI: 24.1 Code: 11661-5 Heart Rate 1: 63 bpm Height: 5'2" SpO2: 98% Weight: 132 lbs 09/19/2015 Blood Pressure 1: 140/68 Code: 8480-6 BMI: 24.2 Code: 71246-5 Heart Rate 1: 96 bpm Height: 5'2" SpO2: 98% Weight: 132 lbs 8 oz 07/19/2015 Blood Pressure 1: 128/64 Code: 8480-6 BMI: 24.2 Code: 00492-4 Heart Rate 1: 66 bpm Height: 5'2" SpO2: 98% Weight: 132 lbs 8 oz 03/22/2015 Blood Pressure 1: 128/60 Code: 8480-6 BMI: 24.0 Code: 70485-7 Heart Rate 1: 57 bpm Height: 5'2" SpO2: 98% Weight: 131 lbs 02/15/2015 Blood Pressure 1: 132/56 Code: 8480-6 BMI: 23.8 Code: 68979-1 Heart Rate 1: 70 bpm Height: 5'2" SpO2: 98% Weight: 130 lbs 11/15/2014 Blood Pressure 1: 120/78 Code: 8480-6 BMI: 24.1 Code: 55459-8 Heart Rate 1: 79 bpm Height: 5'2" SpO2: 98% Weight: 132 lbs 08/13/2014 Blood Pressure 1: 140/60 Code: 8480-6 BMI: 24.0 Code: 41147-7 Heart Rate 1: 74 bpm Height: 5'2" Weight: 131 lbs Functional Status No Functional Status data History of Present Illness Symptom Name Status Resu lt Effective Date Notes Quality stable 04/28/2018 None Length of Episodes 3 d ays 04/28/2018 None Timing of Episodes no specific time 04/28/2018 None Timing of Episodes aft er meals 04/28/2018 None Location in the [facility] area 04/28/2018 None Quality aching 04/28/2018 None [...] Encounters Encounter Performer Loca tion Codes Date ([id number]) 58415 EST. P ATIENT, LEVEL IV Diagnosis: Essential (primary) hypertension[ICD10: I10] Diagnosis: Type 2 diabetes mellitus with hyperglycemia[ICD10: E11.65] Diagnosis: Trigger finger, right middle finger[ICD10: M65.331] Dominique Recinos MD, [facility] CPT-4: 47171 04/28/2018 [id number] 45786 EST. P ATIENT, LEVEL IV Diagnosis: Type 2 diabetes mellitus with hyperglycemia[ICD10: E11.65] Diagnosis: Essential (primary) hypertension[ICD10: I10] Diagnosis: Localized edema[ICD10: R60.0] Dominique Recinos MD, [facility] CPT-4: 71645 12/25/2017 [id number]) 26576 EST. P ATIENT, LEVEL IV Diagnosis: Diverticulitis of large intestine without perforation or abscess without bleeding[ICD10: K57.32] Diagnosis: Nausea[ICD10: R11.0] Maile Recinos MD, [facility] CPT-4: 52752 11/22/2017 ([id number]) Miscellaneou s no charge Diagnosis: Laceration without foreign body of right forearm, subsequent encounter[ICD10: S51.811D] Dominique Recinos MD, [facility] CPT-4: 66827 10/16/2017 ([id number]) Miscellaneou s no charge Diagnosis: Laceration without foreign body of right forearm, subsequent encounter[ICD10: S51.811D] Dominique Recinos MD [facility] CPT-4: 60701 10/14/2017 ([id number]) Miscellaneou s no charge Diagnosis: Laceration without foreign body of right forearm, subsequent encounter[ICD10: S51.811D] Dominique Recinos MD, [facility] CPT-4: 20295 10/09/2017 ([id number]) 07855 EST. P ATIENT, LEVEL III Diagnosis: Type 2 diabetes mellitus with hyperglycemia[ICD10: E11.65] Dominique Recinos MD, [facility] CPT-4: 43486 10/07/2017 ([id number]) 32515 EST. P ATIENT, LEVEL III Diagnosis: Type 2 diabetes mellitus with hyperglycemia[ICD10: E11.65] Fatmata Recinos MD, [facility] CPT-4: 70965 09/16/2017 ([id number]) 83857 EST. P ATIENT, LEVEL III Diagnosis: Essential (primary) hypertension[ICD10: I10] Dominique Recinos MD, [facility] CPT-4: 64601 09/09/2017 ([id number]) Miscellaneou s no charge Diagnosis: Type 1 diabetes mellitus without complications[ICD10: E10.9] Fatmata Recinos MD, [facility] CPT-4: 32290 07/22/2017 ([id number]) 16492 EST. P ATIENT, LEVEL IV Diagnosis: Type 1 diabetes mellitus without complications[ICD10: E10.9] Diagnosis: Mixed hyperlipidemia[ICD10: E78.2] Diagnosis: Essential (primary) hypertension[ICD10: I10] Dominique Recinos MD, [facility] CPT-4: 72410 07/16/2017 ([id number]) 21270 EST. P ATIENT, LEVEL III Diagnosis: Cough[ICD10: R05] Diagnosis: Acute recurrent maxillary sinusitis[ICD10: J01.01] Maile Recinos MD, [facility] CPT-4: 93787 06/14/2017 ([id number]) 00091 EST. P ATIENT, LEVEL IV Diagnosis: Type 1 diabetes mellitus without complications[ICD10: E10.9] Diagnosis: Essential (primary) hypertension[ICD10: I10] Dominique Recinos MD, [facility] CPT-4: 54602 06/10/2017 ([id number]) 39073 EST. P ATIENT, LEVEL IV Diagnosis: Essential (primary) hypertension[ICD10: I10] Diagnosis: Type 1 diabetes mellitus without complications[ICD10: E10.9] Dominique Recinos MD, [facility] CPT-4: 52122 05/13/2017 25945 EST. PATIENT, LEVEL III Diagnosis: Sciatica, right side[ICD10: M54.31] Diagnosis: Low back pain[ICD10: M54.5] Fatmata Recinos MD, [facility] CPT-4: 16219 03/26/2017 ([id number]) 54626 EST. P ATIENT, LEVEL III Diagnosis: Type 1 diabetes mellitus without complications[ICD10: E10.9] Diagnosis: Essential (primary) hypertension[ICD10: I10] Dominique Recinos MD, [facility] CPT-4: 46034 02/19/2017 ([id number]) 97390 EST. P ATIENT, LEVEL IV Diagnosis: Fever presenting with conditions classified elsewhere[ICD10: R50.81] Diagnosis: Weakness[ICD10: R53.1] Diagnosis: Frequency of micturition[ICD10: R35.0] Diagnosis: Type 1 diabetes mellitus without complications[ICD10: E10.9] Dominique Recinos MD, [facility] CPT-4: 72340 01/16/2017 ([id number]) 95968 EST. P ATIENT, LEVEL IV Diagnosis: Type 1 diabetes mellitus without complications[ICD10: E10.9] Diagnosis: Essential (primary) hypertension[ICD10: I10] Dominique Recinos MD, [facility] CPT-4: 70952 01/08/2017 ([id number]) 03543 EST. P ATIENT, LEVEL IV Diagnosis: Essential (primary) hypertension[ICD10: I10] Diagnosis: Type 1 diabetes mellitus without complications[ICD10: E10.9] [facility] CPT-4: 80790 11/21/2016 ([id number]) 06924 EST. 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 P ATIENT, LEVEL III Diagnosis: Chronic obstructive pulmonary disease with (acute) exacerbation[ICD10: J44.1] Diagnosis: Cough[ICD10: R05] [facility] CPT-4: 53930 10/08/2016 ([id number]) Miscellaneou s no charge Diagnosis: Cough[ICD10: R05] Diagnosis: Chronic obstructive pulmonary disease with (acute) exacerbation[ICD10: J44.1] [facility] CPT-4: 29820 10/01/2016 ([id number]) 75921 EST. P ATIENT, LEVEL III Diagnosis: Cough[ICD10: R05] Diagnosis: Acute bronchitis, unspecified[ICD10: J20.9] [facility] CPT-4: 18729 09/27/2016 ([id number]) 86869 EST. P ATIENT, LEVEL III Diagnosis: Type 1 diabetes mellitus without complications[ICD10: E10.9] [facility] CPT-4: 77509 07/19/2016 ([id number]) 67853 EST. P ATIENT, LEVEL IV Diagnosis: Essential (primary) hypertension[ICD10: I10] Diagnosis: Type 1 diabetes mellitus without complications[ICD10: E10.9] Diagnosis: Other allergic rhinitis[ICD10: J30.89] Diagnosis: Acute laryngopharyngitis[ICD10: J06.0] [facility] CPT-4: 76777 07/09/2016 ([id number]) 27962 EST. P ATIENT, LEVEL IV Diagnosis: Essential (primary) hypertension[ICD10: I10] Diagnosis: Type 1 diabetes mellitus without complications[ICD10: E10.9] Diagnosis: Mixed hyperlipidemia[ICD10: E78.2] Dominique Recinos MD, [facility] CPT- 4: 83440 06/06/2016 64606 EST. PATIENT, LEVEL III Diagnosis: Other allergic rhinitis[ICD10: J30.89] Diagnosis: Acute laryngopharyngitis[ICD10: J06.0] Fatmata Recinos MD, [facility] CPT-4: 16806 04/03/2016 ([id number]) 24262 EST. P ATIENT, LEVEL IV Diagnosis: Type 1 diabetes mellitus without complications[ICD10: E10.9] Diagnosis: Essential (primary) hypertension[ICD10: I10] Diagnosis: Pain in right hand[ICD10: M79.641] Dominique Recinos MD, [facility] CPT- 4: 14052 12/26/2015 ([id number]) 46415 EST. P ATIENT, LEVEL IV Diagnosis: Type 1 diabetes mellitus without complications[ICD10: E10.9] Diagnosis: Essential (primary) hypertension[ICD10: I10] Dominique Recinos MD, [facility] CPT-4: 93290 09/19/2015 ([id number]) 87065 EST. P ATIENT, LEVEL IV Diagnosis: Essential (primary) hypertension[ICD10: I10] Diagnosis: Mixed hyperlipidemia[ICD10: E78.2] Diagnosis: Type 1 diabetes mellitus without complications[ICD10: E10.9] Dominique Recinos MD, [facility] CPT-4: 57330 07/19/2015 ([id number]) 34477 EST. P ATIENT, LEVEL IV Diagnosis: Other specified dorsopathies, lumbar region[ICD10: M53.86] Diagnosis: Urge incontinence[ICD10: N39.41] Diagnosis: Type 1 diabetes mellitus without complications[ICD10: E10.9] Dominique Recinos MD, [facility] CPT-4: 90368 03/22/2015 ([id number]) 94500 EST. P ATIENT, LEVEL IV Diagnosis: Essential (primary) hypertension[ICD10: I10] Diagnosis: Other specified dorsopathies, lumbar region[ICD10: M53.86] Diagnosis: Other chronic pain[ICD10: G89.29] [facility] CPT-4: 54862 02/15/2015 ([id number]) 27632 EST. [facility] Diagnosis: ESSENTIAL HYPERTENSION[ICD9: 401.9] Diagnosis: DIABETES TYPE II[ICD9: 250.00] Diagnosis: FALL FROM LADDER[ICD9: E881.0] Diagnosis: Right hip pain[ICD9: 719.45] Diagnosis: Left hand pain[ICD9: 729.5] Diagnosis: Sacroiliac joint pain[ICD9: 724.6] Dominique Recinos MD, [facility] CPT- 4: 60793 11/15/2014 ([id number]) OFFICE [facility] - LEVEL 4 Diagnosis: DIABETES TYPE II[ICD9: 250.00] Diagnosis: ESSENTIAL HYPERTENSION[ICD9: 401.9] Diagnosis: HYPERLIPIDEMIA[ICD9: 272.4] Dominique Recinos MD, [facility] CPT-4: 70527 08/13/2014 Plan of Care Planned Activity Notes [...] less controlled. 04/28/2018 Appointment: Dominique Recinos WPtel: [address] [place], [place] [address] (15 min) Moderate 04/28/2018 Patient Education: Patient [...] seated. 12/25/2017 Appointment: Dominique Recinos WPtel: [phone] [facility] (15 min) Moderate 12/25/2017 Patient Education: Patient Medication Summary Completed 12/25/2017 Patient Education: Diabetes Completed 12/25/2017 Appointment: Dominique Recinos WPtel: [phone] [facility] [place] (15 min) Moderate 12/09/2017 Visit Plan: Diverticulitis - rx for antibiotic sent to pt's pharmacy - pt advised to avoid seeds, nuts, popcorn, or any other food which has been proven to upset the pt's stomach. 11/22/2017 [facility]ment[phone] [place] (15 min) Moderate 11/22/2017 Patient [...] glucose. 10/07/2017 [phone] ([facility] min) Moderate 10/07/2017 Patient Education: Patient [...] control. 09/16/2017 Appointment: [phone] [facility] [place] (15 min) Moderate 09/16/2017 Patient [...] home. 09/09/2017 App[facility]ment[phone] (15 min) Moderate 09/09/2017 Patient Education: Patient Medication Summary Completed 09/09/2017 Appointment: RandolphMaile WPtel: [phone] [phone] [place] (15 min) Moderate 09/06/2017 Appointment: Dominique Recinos WPtel: [phone] [facility] [place] (15 min) Moderate 09/05/2017 Appointment: Fatmata Spann WPtel: [address] [facility] [place] (15 min) Moderate 07/22/2017 Patient Education: [...] less controlled. ipro placed today - by TACKING STITCH REMOVER - pt to RTC on Saturday for [...] less controlled. ipro placed today - by TACKING STITCH REMOVER - pt to RTC on Saturday for [...] to medications. 07/16/2017 App[facility]ment: [phone] [facility] (15 min) Moderate 07/16/2017 Patient Education: Patient Medication Summary Completed 07/16/2017 Visit Plan: Sinusitis - Pt has acut e infection - pain in face, maxillary region, Pt informed to use decongestant, RX given to patient, sinus rinses also recommended. Call if symptoms do not show improvement. 06/14/2017 Appointment: [facility]ile Randolph [facility]el[facility] [phone] [phone] (30 min) Complex 06/14/2017 Patient Education: [...] home. 06/10/2017 Appointment: [phone] [facility] [place] (15 min) Moderate 06/10/2017 Patient Education: Patient Medication Summary Completed 06/10/2017 Appointment: [facility] Spann [facility]el[phone] [facility] [place] (30 min) Complex 06/03/2017 Visit [...] controlled. 05/13/2017 Appointment: [facility]el[phone] [facility] [place] (15 min) Moderate 05/13/2017 Patient Education: Patient Medication Summary Completed 05/13/2017 Appointment: [facility]el[phone] [facility] [place] (30 min) Complex 05/03/2017 Appointment: Fatmata Spann [facility]Ptel[facility] [phone] [facility] [place] (15 min) Moderate 04/12/2017 Appointment: Domin[facility]el[phone] [facility] [place] (15 min) Moderate 04/11/2017 Appointment: Domin[facility]el[phone] [facility] [place] (15 min) Moderate 04/10/2017 Appointment: [facility]el[phone] [facility] [place] (15 min) Moderate 04/02/2017 Visit Plan: [...] injection. 03/26/2017 Appointment: Fatmata Spann WPtel: [address] [facility] (30 min) Complex 03/26/2017 Appointment: Dominique Recinos WPtel: [phone] [facility] (15 min) Moderate 03/26/2017 Patient Education: [...] home. 02/19/2017 Appointment: [facility]el[phone] [facility] [place] (15 min) Moderate 02/19/2017 Patient Education: Patient Medication Summary Completed 02/19/2017 Patient Education: Hypertension Completed 02/19/2017 Appointment: Domin[facility]Ptel[phone] [facility] [place] (15 min) Moderate 02/12/2017 Visit Plan: [...] if consistently above 100F. 01/16/2017 Appointment: Dominique Rceinos [facility]Ptel[phone] [facility] [place] (15 min) Moderate 01/16/2017 Patient Education: [...] at home. 01/08/2017 Appointment: Domin[facility]inos [facility]Ptel[phone] [facility] [place] (15 min) Moderate 01/08/2017 Patient Education: Patient Medication Summary Completed 01/08/2017 Patient Education: Hypertension Completed 01/08/2017 Appointment: Domin[facility]inos [facility]Ptel[phone] [facility] [place] (15 min) Moderate 12/31/2016 Appointment: Domin[facility]inos [facility]Ptel[phone] [facility] (15 min) Moderate 12/18/2016 Visit Plan: Hypertension [...] controlled. 11/21/2016 Appointment: [facility]Ptel[phone] (15 min) Moderate 11/21/2016 Patient Education: [...] Plan: DM - uncontrolled - inc rease baljittus to 15 units - We will refer [...] potatoes, creamy coleslaw, etc. -- referral to note specialist. Hyperlipidemia - pt has been counseled [...] until healed 10/16/2016 Appointment: Dominique Recinos WPtel: [address] [place], [place] [address] [place] (15 min) Moderate 10/16/2016 Patient Education: Patient Medication Summary Completed 10/16/2016 Patient Education: Hypertension Completed 10/16/2016 Patient Education: Patient Medication Summary Completed 10/09/2016 Care Plan: Free T4 Pending 10/09/2016 Visit Plan: COPD exacerbation-cough -symptoms resolved-call if symptoms return-monitor blood sugars closely for the next few days and discussed diet. 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 10/01/2016 Appointment: Maile Randolph WPtel: [phone] [phone] (30 min) Complex 10/01/2016 Patient Education: Patient Medication Summary Completed 10/01/2016 Visit Plan: Bronchitis - acute case of bronchitis identified. Pt has been given antibiotics, breathing treatments as appropriate, and pt has been instructed to call if symptoms are not improved, or if symptoms acutely worsen. 09/27/2016 Appointment: Maile Randolph WPtel: [phone] [phone] (30 min) Complex 09/27/2016 Patient Education: [...] controlled. 07/19/2016 Appointment: Dominique Recinos WPtel: [phone] [facility] (15 min) Moderate 07/19/2016 Patient Education: Patient [...] care surrogate. 07/10/2016 Appointment: Fatmata Spann WPtel: [facility] [place] [address] - Annual Wellness Visit 07/10/2016 Patient Education: [...] not improving 07/09/2016 Appointment: Dominique Recinos WPtel: [facility] (15 min) Moderate 07/09/2016 Patient Education: Patient Medication Summary Completed 07/09/2016 Patient Education: Hypertension Completed 07/09/2016 Appointment: Dominique Recinos WPtel: [facility] (15 min) Moderate 06/26/2016 Visit Plan: Hypertension [...] me dications. 06/06/2016 Appointment: Dominique Recinos WPtel: [facility] [address] (15 min) Moderate 06/06/2016 Patient Education: Patient Medication Summary Completed 06/06/2016 Appointment: Dominique Recinos WPtel: [address] (15 min) Moderate 04/30/2016 Visit Plan: URI [...] spray. 04/03/2016 Appointment: Fatmata Spann WPtel: [phone] [facility] (30 min) Complex 04/03/2016 Patient Education: [...] Completed 12/26/2015 Appointment: Dominique Recinos WPtel: [phone] [facility] (15 min) Moderate 12/19/2015 Visit Plan: [...] home. 09/19/2015 Appointment: Domin[facility] Recinos [facility]Ptel[phone] (15 min) Moderate 09/19/2015 Patient Education: [...] dications. 07/19/2015 Appointment: Dominique Recinos [facility]Ptel: [phone] [facility] [place] (15 min) Moderate 07/19/2015 Patient Education: [...] treat. 03/22/2015 Appointment: Dominique Recinos WPtel: [phone] [facility] [place] (15 min) Moderate 03/22/2015 Patient Education: Patient Medication Summary Completed 03/22/2015 Care Plan: Referral Order SNOMED-CT : [id number] Ordered 03/22/2015 Visit Plan: Hypertension - well [...] me dications. 08/13/2014 Appointment: Dominique Recinos [facility]Ptel[phone] [place] (S) New Patient 08/13/2014 Patient Education: Patient Medication Summary Completed 08/13/2014 Patient Education: Hypertension Completed 08/13/2014 Referral: External, Ordering Provider Referral Appointment Requested Instructions Comment . Diabetes Mellitus - I have recommended [...] reviewed with the patient today in clinic. Go back to taking yo ur benicar [...] potatoes, creamy coleslaw, etc. -- referral to note specialist. Hyperlipidemia - pt has been counseled [...] in blood pressure readings at home. . COPD exacerbation- cough-symptoms resolved-call if symptoms return-monitor blood sugars closely for the next few days and discussed diet. FLAGYL 500MG THREE T IMES DAILY X [...] improved, or if symptoms acutely worsen. . Hypertension - wel l controlled - [...] show improvement. 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 Hypertension - well [...] to become less controlled. . Hypertension - fermin l controlled - continue with current medications, [...] for health care surrogate. . Hypertension - fermin l controlled - continue with current medications, [...] less controlled. ipro placed today - by TACKING STITCH REMOVER - pt to RTC on Saturday for [...] less controlled. ipro placed today - by TACKING STITCH REMOVER - pt to RTC on Saturday for [...]
--- OUTSIDE RECORDS SUMMARY | 2019-06-14 17:16 | XMS REPORT | CCD ---
Author Author Nathalia Recinos Organization [facility] Address [address] [place] [address] Phone Care Team Providers Care Numerical Analysis Group Manager Name Role Phone PP Unavailable CCM Unavailable Summary Purpose Interface Exchange Insurance Providers Payer name Policy type / Coverage type Covered republican ID Effective Begin Date Effective End Date WPS Medicare Part B Medicare Part B [id number] Unknown [facility] ica Part B [id number] Un known Family history Mother Diagnosis Age At Onset No Family Disease Entered N/A Father Diagnosis Age At Onset Heart Attack Unknown Diabetes Unknown Social History Social History Element Codes Description Effective Dates Number of children Unknown 2 Sons, 5 grandchildren, 11 great grandchildren 01/08/2017 Marital status Unknown W crystal [place] in [address]606/06/[address]: 443829436 Never smoker 08/13/[address]: 489473051 Never drinks alcohol 08/13/2014 Allergies, Adverse Reactions, [...] Date Stop Date Sta tus Fill Instructions Zoloft 50 mg tablet RxNorm: 658853 TAKE ONE TABLET BY MOUTH DAILY 04/28/2018 04/22/2019 Ac tive gabapentin 100 mg ca psule RxNorm: 646350 TAKE ONE CAPSULE BY M OUTH THREE TIMES A DAY 04/09/2018 07/16/2018 Ac tive Novolog U-100 Insuli n aspart 100 unit/mL subcutaneous solution RxNorm: 733882 SSI 5 units over 150 and for every additional 50 add 2 units Unit(s) SQ TID adjust as needed for glucose control 12/25/2017 07/22/2018 Active Cipro 500 mg tablet RxNorm: 904957 1 Tablet(s) PO BID 11/22/2017 12/01/2017 Inactive clotrimazole 1 % top ical cream RxNorm: 263205 1 Application TOP BID 11/22/2017 12/05/2017 Inactive Flagyl 500 mg tablet RxNorm: 133397 1 Tablet(s) PO TID 11/22/2017 12/01/2017 Inactive Lantus U-100 Insulin 100 unit/mL subcutaneous solution RxNorm: 498740 17 Unit(s) SQ QAM 11/11/2017 07/08/2018 Active Novolog U-100 Insuli n aspart 100 unit/mL subcutaneous solution RxNorm: 702957 SSI 5 units over 150 and for every additional 50 add 2 units Unit(s) SQ TID adjust as needed for glucose control 11/11/2017 12/24/2017 Inactive gabapentin 100 mg ca psule RxNorm: 636088 TAKE ONE CAPSULE BY M OUTH THREE TIMES A DAY 11/05/2017 02/11/2018 Inactive Kenalog 40 mg/mL fanny pension for injection RxNorm: 2918528 1 Milliliter(s) Inj 06/14/2017 06/14/2017 In active Flonase Allergy Reli ef 50 mcg/actuation nasal spray,suspension RxNorm: 8381318 [address] [employer] [place] NASAL daily 06/14/2017 06/20/2017 Inactive doxycycline hyclate 100 mg tablet RxNorm: 082191 1 Tablet(s) PO BID 06/14/2017 06/20/2017 Inactive Lantus U-100 Insulin 100 unit/mL subcutaneous solution RxNorm: 092337 17 Unit(s) SQ QAM 06/10/2017 07/09/2017 Inactive gabapentin 100 mg ca psule RxNorm: 950216 TAKE ONE CAPSULE BY M OUTH THREE TIMES A DAY 05/23/2017 08/29/2017 Inactive Lantus U-100 Insulin 100 unit/mL subcutaneous solution RxNorm: 320638 15 Unit(s) SQ QAM 05/14/2017 06/09/2017 Inactive Novolog U-100 Insuli n aspart 100 unit/mL subcutaneous solution RxNorm: 329414 SSI 5 units over 150 and for every additional 50 add 2 units Unit(s) SQ TID adjust as needed for glucose control 04/24/2017 11/10/2017 Inactive Zocor 20 mg tablet RxNorm: 524784 1 Tablet(s) PO daily 04/05/2017 03/30/2018 Inactive Kenalog 40 mg/mL fanny pension for injection RxNorm: 6646471 1 Milliliter(s) Inj 03/26/2017 03/26/2017 In active Novolog 100 unit/mL subcutaneous solution RxNorm: 871241 SSI 5 units over 150 and for every additional 50 add 2 units Unit(s) SQ TID adjust as needed for glucose control 02/19/2017 04/23/2017 Inactive Lantus 100 unit/mL s ubcutaneous solution RxNorm: 556117 10 Unit(s) SQ QAM 02/19/2017 05/13/2017 In active ceftriaxone 500 mg s olution for injection RxNorm: 3939548 Inj 01/16/2017 01/16/2017 Inactive Lantus 100 unit/mL s ubcutaneous solution RxNorm: 937230 7 Unit(s) SQ QAM 01/16/2017 02/18/2017 In active Lantus 100 unit/mL s ubcutaneous solution RxNorm: 675643 10 Unit(s) SQ daily 01/08/2017 05/12/2017 In active gabapentin 100 mg ca psule RxNorm: 544110 TAKE ONE CAPSULE BY M OUTH THREE TIMES A DAY 11/30/2016 02/03/2017 Inactive Zoloft 50 mg tablet RxNorm: 786028 TAKE ONE TABLET BY MOUTH DAILY 10/30/2016 04/27/2017 In active Zocor 20 mg tablet RxNorm: 338655 1 Tablet(s) PO daily 10/16/2016 04/04/2017 Inactive stop the 40mg dose of zocor, start on 20 mg Lantus 100 unit/mL s ubcutaneous solution RxNorm: 993945 15 Unit(s) SQ daily 10/16/2016 01/07/2017 In active Novolog 100 unit/mL subcutaneous solution RxNorm: 460464 SSI 5 units over 150 and for every additional 50 add 2 units Unit(s) SQ TID adjust as needed for glucose control 10/16/2016 02/18/2017 Inactive prednisone 20 mg tablet RxNorm: 956433 1 Tablet(s) PO BID 10/01/2016 10/05/2016 Inactive Kenalog 40 mg/mL fanny pension for injection RxNorm: 0604598 1 Milliliter(s) Inj 09/27/2016 09/27/2016 In active Zithromax Z-Kishor 250 mg tablet RxNorm: 095021 1 Tablet(s) PO UD 09/27/2016 10/01/2016 Inactive ceftriaxone 500 mg s olution for injection RxNorm: 1725459 1 Milliliter(s) Inj 09/27/2016 09/27/2016 In active Augmentin 500 mg-125 mg tablet RxNorm: 760479 1 Tablet(s) PO BID 09/22/2016 09/26/2016 Inactive Tessalon Perles 100 mg capsule RxNorm: 341300 1 Capsule(s) PO Q8 IN N as needed 09/22/2016 04/27/2018 In active metoprolol tartrate 50 mg tablet RxNorm: 685958 TAKE ONE TABLET BY [facility] TWICE A DAY 08/02/2016 07/27/2017 Inactive Novolog 100 unit/mL subcutaneous solution RxNorm: 200422 10 Unit(s) SQ TID adj ust as needed for glucose control 07/19/2016 10/15/2016 Inactive Humalog 100 unit/mL subcutaneous solution RxNorm: 287172 INJECT 10 UNITS UNDER THE SKIN BEFORE EACH MEAL 07/16/2016 07/16/2016 Inactive Kenalog 40 mg/mL fanny pension for injection RxNorm: 7423093 1 Milliliter(s) Inj 07/09/2016 07/09/2016 In active ceftriaxone 500 mg s olution for injection RxNorm: 7191988 Inj 07/09/2016 07/09/2016 Inactive Lantus 100 unit/mL s ubcutaneous solution RxNorm: 368353 Unit(s) INJECT 13 UNI TS UNDER THE SKIN IN THE MORNING 06/06/2016 10/15/2016 Inactive Zoloft 50 mg tablet RxNorm: 273510 TAKE ONE TABLET BY MOUTH DAILY 04/27/2016 07/25/2016 In active Lantus 100 unit/mL s ubcutaneous solution RxNorm: 176506 INJECT 20 UNITS UNDER THE SKIN AT BEDTIME 04/27/2016 06/05/2016 Inactive amoxicillin 500 mg c apsule RxNorm: 993919 1 Capsule(s) PO TID 04/03/2016 04/12/2016 Inactive Zyrtec 10 mg tablet RxNorm: 9862210 1 Tablet(s) PO daily 04/03/2016 05/02/2016 Inactive hydrochlorothiazide 12.5 mg capsule RxNorm: 038131 TAKE ONE CAPSULE BY M OUTH DAILY 03/12/2016 12/06/2016 In active Benicar 40 mg tablet RxNorm: 915735 1 Tablet(s) PO daily 02/28/2016 04/27/2016 Inactive Benicar 40 mg tablet RxNorm: 109704 1 Tablet(s) PO daily 02/20/2016 02/27/2016 Inactive gabapentin 100 mg ca psule RxNorm: 341782 TAKE ONE CAPSULE BY M OUTH THREE TIMES A DAY 01/09/2016 04/16/2016 Inactive metoprolol tartrate 50 mg tablet RxNorm: 808105 TAKE ONE TABLET BY MO UTH TWICE A DAY 01/09/2016 04/07/2016 Inactive Humalog 100 unit/mL subcutaneous solution RxNorm: 612284 5-10 Unit(s) SQ AC 07/19/2015 07/18/2016 In active Lantus 100 unit/mL s ubcutaneous solution RxNorm: 572980 13 Unit(s) SQ QAM 07/19/2015 01/15/2017 In active Lantus 100 unit/mL s ubcutaneous solution RxNorm: 232631 20 Unit(s) SQ QHS 07/14/2015 07/18/2015 In active Zoloft 50 mg tablet RxNorm: 563602 1 Tablet(s) PO daily 05/19/2015 09/15/2015 Inactive Humalog 100 unit/mL subcutaneous solution RxNorm: 918699 10 Unit(s) SQ AC 05/11/2015 07/18/2015 In active metoprolol tartrate 50 mg tablet RxNorm: 661087 1 Tablet(s) PO BID 04/28/2015 08/25/2015 Inactive Lantus 100 unit/mL s ubcutaneous solution RxNorm: 792940 20 Unit(s) SQ QHS 04/28/2015 07/13/2015 In active Vesicare 10 mg tablet RxNorm: 182132 1 Tablet(s) PO QPM 03/22/2015 09/18/2015 Inactive hydrochlorothiazide 12.5 mg capsule RxNorm: 030683 1 Tablet(s) PO daily 01/04/2015 12/29/2015 In active gabapentin 100 mg ca psule RxNorm: 806732 1 Capsule(s) PO TID 11/29/2014 03/28/2015 Inactive [...] Date Active aspirin 81 mg tablet RxNorm: 202562 1 Tablet(s) PO daily No Start Date Active doxazosin 2 mg tablet RxNorm: 741793 1 Tablet(s) PO QHS No Start Date Active Fish Oil oral RxNorm: 3036149 oral No Start Date Active multivitamin capsule RxNorm: 1 Capsule(s) PO daily No Start Date Active Humalog 100 unit/mL subcutaneous solution RxNorm: 013794 Unit(s) SQ No Start Date 05/10/2015 Inactive Zoloft 50 mg tablet RxNorm: 808954 1 Tablet(s) PO daily No Start Date 05/18/2015 Inactive gabapentin 100 mg ca psule RxNorm: 469841 1 Capsule(s) PO daily No Start Date 11/28/2014 Inactive metoprolol tartrate 50 mg tablet RxNorm: 831376 1 Tablet(s) PO TID No Start Date 04/27/2015 Inactive Benicar 40 mg tablet RxNorm: 315055 1 Tablet(s) PO daily No Start Date 02/19/2016 Inactive hydrochlorothiazide 25 mg tablet RxNorm: 717194 1 Tablet(s) PO daily No Start Date 01/03/2015 Inactive Lantus 100 unit/mL s ubcutaneous solution RxNorm: 824331 13 Unit(s) SQ No Start Date 04/27/2015 Inactive Zocor 40 mg tablet RxNorm: 035809 1 Tablet(s) PO daily No Start Date 10/15/2016 Inactive Medication Administered Medication Codes Instruc tions Start Date Status Kenalog 40 mg/mL suspension for injection RxNorm: 4232524 1Milliliter 06/14/2017 N o longer Active Kenalog 40 mg/mL suspension for injection RxNorm: 5126482 1Milliliter 03/26/2017 N o longer Active ceftriaxone 500 mg solution for injection RxNorm: 2739812 01/16/2017 No longer A ctive Kenalog 40 mg/mL suspension for injection RxNorm: 8861071 1Milliliter 09/27/2016 N o longer Active ceftriaxone 500 mg solution for injection RxNorm: 0507433 1Milliliter 09/27/2016 N o longer Active ceftriaxone 500 mg solution for injection RxNorm: 1228247 07/09/2016 No longer A ctive Kenalog 40 mg/mL suspension for injection RxNorm: 6334368 1Milliliter 07/09/2016 N o longer Active Immunizations Vaccine Codes Date Status [...] Item Item Code Result Date Comp Metabolic Yui587 NA 137 mEq/L 04/28/2018 Comp Metabolic Pfk860 K 4.1 mEq/L 04/28/2018 Comp Metabolic Mho875 CL 101 mEq/L 04/28/2018 Comp Metabolic Rtv532 CO2 28.0 mEq/L 04/28/2018 Comp Metabolic Fhi780 AN ION GAP 12 04/28/2018 Comp Metabolic Nhg579 GL UCOSE 195 mg/dL 04/28/2018 Comp Metabolic Ssi467 Cr eat 0.7 mg/dL 04/28/2018 Comp Metabolic Hcu357 eG FR 81 ml/min/1.73m2 04/28 Comp Metabolic Yka048 BUN 24 mg/dL 04/28/2018 Comp Metabolic Joe873 B/ C Ratio 33.3 Ratio 04/28/2018 Comp Metabolic Adw382 CA LCIUM 9.4 mg/dL 04/28/2018 Comp Metabolic Ioq944 AL K PHOS 72 U/L 04/28/2018 Comp Metabolic Wnd570 T(SGOT) 15 U/L 04/28/2018 Comp Metabolic Vvv784 AL T(SGPT) 11 U/L 04/28/2018 Comp Metabolic Iej380 BI LI T 0.6 mg/dL 04/28/2018 Comp Metabolic Hji756 AL BUMIN 4.0 g/dL 04/28/2018 Comp Metabolic Iay287 TP RO 6.1 g/dL 04/28/2018 Comp Metabolic Cud883 GL OB 2.1 g/dL 04/28/2018 Comp Metabolic Qva443 A/ G Ratio 2.0 Ratio 04/28/2018 Comp Metabolic Ayc155 Os mo 283 mOsmo 04/28/2018 %Hba1C Ftu989 % HbA1c 90202-0 7.5 % 04/28/2018 %Hba1C Sfj252 Gluc Ave 169 mg/dL 04/28/2018 %Hba1C Bmb003 % HbA1c 87611-1 7.1 % 12/25/2017 %Hba1C Wlv993 Gluc Ave 157 mg/dL 12/25/2017 Comp Metabolic Iqz732 NA 139 mEq/L 12/25/2017 Comp Metabolic Srs995 K 4.1 mEq/L 12/25/2017 Comp Metabolic Nnc926 CL 104 mEq/L 12/25/2017 Comp Metabolic Czb683 CO2 28.0 mEq/L 12/25/2017 Comp Metabolic Wlc840 AN ION GAP 11 12/25/2017 Comp Metabolic Gzt779 GL UCOSE 129 mg/dL 12/25/2017 Comp Metabolic Apo504 Cr eat 0.7 mg/dL 12/25/2017 Comp Metabolic Xvk553 eG FR 83 ml/min/1.73m2 12/25 Comp Metabolic Epv130 BUN 22 mg/dL 12/25/2017 Comp Metabolic Pvk811 B/ C Ratio 31.0 Ratio 12/25/2017 Comp Metabolic Iji321 CA LCIUM 9.4 mg/dL 12/25/2017 Comp Metabolic Yox438 AL K PHOS 70 U/L 12/25/2017 Comp Metabolic Cex608 T(SGOT) 16 U/L 12/25/2017 Comp Metabolic Yfk148 AL T(SGPT) 12 U/L 12/25/2017 Comp Metabolic Ydh747 BI LI T 0.5 mg/dL 12/25/2017 Comp Metabolic Wfz863 AL BUMIN 4.2 g/dL 12/25/2017 Comp Metabolic Eqc823 TP RO 6.1 g/dL 12/25/2017 Comp Metabolic Vdj381 GL OB 1.9 g/dL 12/25/2017 Comp Metabolic Dif504 A/ G Ratio 2.1 Ratio 12/25/2017 Comp Metabolic Dsc953 Os mo 283 mOsmo 12/25/2017 %Hba1C Aee904 % HbA1c 50560-9 8.0 % 05/13/2017 %Hba1C Mff351 Gluc Ave 183 mg/dL 05/13/2017 Comp Metabolic Wqa318 NA 135 mEq/L 05/13/2017 Comp Metabolic Zci201 K 3.8 mEq/L 05/13/2017 Comp Metabolic Smh625 CL 99 mEq/L 05/13/2017 Comp Metabolic Bem906 CO2 29.0 mEq/L 05/13/2017 Comp Metabolic Nhg936 AN ION GAP 11 05/13/2017 Comp Metabolic Eyk124 GL UCOSE 155 mg/dL 05/13/2017 Comp Metabolic Fso712 Cr eat 0.7 mg/dL 05/13/2017 Comp Metabolic Ffm107 eG FR 90 ml/min/1.73m2 05/13 Comp Metabolic Jga653 BUN 18 mg/dL 05/13/2017 Comp Metabolic Ncw909 B/ C Ratio 27.3 Ratio 05/13/2017 Comp Metabolic Hvw179 CA LCIUM 8.9 mg/dL 05/13/2017 Comp Metabolic Hmo779 AL K PHOS 90 U/L 05/13/2017 Comp Metabolic Ijn185 T(SGOT) 18 U/L 05/13/2017 Comp Metabolic Cho384 AL T(SGPT) 15 U/L 05/13/2017 Comp Metabolic Ltd785 BI LI T 0.5 mg/dL 05/13/2017 Comp Metabolic Wvu060 AL BUMIN 4.0 g/dL 05/13/2017 Comp Metabolic Pjz053 TP RO 5.9 g/dL 05/13/2017 Comp Metabolic Zrn339 GL OB 1.9 g/dL 05/13/2017 Comp Metabolic Nsf223 A/ G Ratio 2.1 Ratio 05/13/2017 Comp Metabolic Rfj435 Os mo 275 mOsmo 05/13/2017 Urine Culture Ucult Comp lete NO Growth Day 2 01/18 Urine Culture Ucult Prel iminary NO Growth Day 1 01/18 Free T4 Jew258 FREE T4 1.13 ng/dL 10/09/2016 Tsh Ord6 [...] 31.5 pg 10/08/2016 Cbc With Differential Ord2 Patrick% 4.0 % 10/08/2016 Cbc With Differential Ord2 MCHC 34.1 pg 10/08/2016 Cbc With Differential Ord2 Eos% 0.0 % 10/08/2016 Cbc With Differential Ord2 PLT 227 K/ul 10/08/2016 Cbc With Differential Ord2 Baso% 0.0 % 10/08/2016 Cbc With Differential Ord2 Neut ABS# 7.88 K/ul 10/08/2016 Cbc With Differential Ord2 RDW 12.4 % 10/08/2016 Cbc With Differential Ord2 Lymph ABS# 0.96 K/ul 10/08/2016 Cbc With Differential Ord2 Patrick ABS# 0.4 K/ul 10/08/2016 Cbc With Differential Ord2 Eos ABS# 0.0 K/ul 10/08/2016 Cbc With Differential Ord2 Baso ABS# 0.0 K/ul 10/08/2016 Comp Metabolic Lmh493 NA 135 mEq/L 10/08/2016 Comp Metabolic Ukp601 K 4.3 mEq/L 10/08/2016 Comp Metabolic Wne037 CL 98 mEq/L 10/08/2016 Comp Metabolic Rbk486 CO2 22.0 mEq/L 10/08/2016 Comp Metabolic Scu873 AN ION GAP 19 10/08/2016 Comp Metabolic Jlv467 GL UCOSE 400 mg/dL 10/08/2016 Comp Metabolic Uex977 Cr eat 0.7 mg/dL 10/08/2016 Comp Metabolic Edq454 eG FR 79 ml/min/1.73m2 10/08 Comp Metabolic Grh547 BUN 27 mg/dL 10/08/2016 Comp Metabolic Nhy060 B/ C Ratio 36.5 Ratio 10/08/2016 Comp Metabolic Ljr839 CA LCIUM 9.1 mg/dL 10/08/2016 Comp Metabolic Ear025 AL K PHOS 65 U/L 10/08/2016 Comp Metabolic Byq295 T(SGOT) 28 U/L 10/08/2016 Comp Metabolic Bpv709 AL T(SGPT) 24 U/L 10/08/2016 Comp Metabolic Qyc094 BI LI T 0.7 mg/dL 10/08/2016 Comp Metabolic Mlz617 AL BUMIN 3.8 g/dL 10/08/2016 Comp Metabolic Anx078 TP RO 6.0 g/dL 10/08/2016 Comp Metabolic Dcy610 GL OB 2.2 g/dL 10/08/2016 Comp Metabolic Sef032 A/ G Ratio 1.7 Ratio 10/08/2016 Comp Metabolic Qhm868 Os mo 292 mOsmo 10/08/2016 %Hba1C Zqq443 % HbA1c 27657-2 7.0 % 10/08/2016 %Hba1C Wch840 Gluc Ave 154 mg/dL 10/08/2016 Microalbumin Jzt078 Micr oAlb <0.7 mg/dL 10/08/2016 Lipid Ord30 [...] OK? TNP:Duplicate Order 04/03/2016 C A/B FLU [id number] Influe nza A Scr Negative 04/03/2016 C A/B FLU 2607609 Influe nza B Scr Negative 04/03/2016 Comp Metabolic Irs487 NA 138 mEq/L 09/15/2015 Comp Metabolic Jug275 K 4.4 mEq/L 09/15/2015 Comp Metabolic Rqf953 CL 103 mEq/L 09/15/2015 Comp Metabolic Tzp092 CO2 29.0 mEq/L 09/15/2015 Comp Metabolic Cuz662 AN ION GAP 10 09/15/2015 Comp Metabolic Lyq059 GL UCOSE 156 mg/dL 09/15/2015 Comp Metabolic Whd253 Cr eat 0.7 mg/dL 09/15/2015 Comp Metabolic Epo974 eG FR 79 ml/min/1.73m2 09/14 Comp Metabolic Bvf905 BUN 23 mg/dL 09/15/2015 Comp Metabolic Rlb240 B/ C Ratio 31.1 Ratio 09/15/2015 Comp Metabolic Zvp254 CA LCIUM 9.1 mg/dL 09/15/2015 Comp Metabolic Arc818 AL K PHOS 58 U/L 09/15/2015 Comp Metabolic Hiq184 T(SGOT) 19 U/L 09/15/2015 Comp Metabolic Bku477 AL T(SGPT) 11 U/L 09/15/2015 Comp Metabolic Qmt373 BI LI T 0.6 mg/dL 09/15/2015 Comp Metabolic Gzh698 AL BUMIN 3.9 g/dL 09/15/2015 Comp Metabolic Kjl089 TP RO 5.8 g/dL 09/15/2015 Comp Metabolic Sqp331 GL OB 1.9 g/dL 09/15/2015 Comp Metabolic Ktg998 A/ G Ratio 2.1 Ratio 09/15/2015 Comp Metabolic Xkx705 Os mo 283 mOsmo 09/15/2015 Cbc With [...] 30.5 pg 09/15/2015 Cbc With Differential Ord2 Patrick% 10.2 % 09/15/2015 Cbc With Differential Ord2 [...] 0.86 K/ul 09/15/2015 Cbc With Differential Ord2 Patrick ABS# 0.5 K/ul 09/15/2015 Cbc With Differential Ord2 Eos ABS# 0.1 K/ul 09/15/2015 Cbc With Differential Ord2 Baso ABS# 0.0 K/ul 09/15/2015 Tsh Ord6 hTSH II 0.76 uIU/mL 09/15/2015 Lipid Ord30 CHOL 139 mg/dL 09/15/2015 Lipid Ord30 HDL 57.0 mg/dl 09/15/2015 Lipid Ord30 TRIG 76 mg/dL 09/15/2015 Lipid Ord30 LDL 67 mg/dL 09/15/2015 Lipid Ord30 C/HDL 2.4 Ratio 09/15/2015 %Hba1C Exk593 % HbA1c 15743-7 6.6 % 09/15/2015 %Hba1C Nbv219 Gluc Ave 143 mg/dL 09/15/2015 Tsh Ord6 hTSH II 0.68 uIU/mL 06/02/2015 %Hba1C Tkh205 % HbA1c 58493-4 6.5 % 06/02/2015 %Hba1C Avf198 Gluc Ave 140 mg/dL 06/02/2015 Comp Metabolic Mxo570 NA 139 mEq/L 06/02/2015 Comp Metabolic Tgz297 K 4.5 mEq/L 06/02/2015 Comp Metabolic Jbm121 CL 104 mEq/L 06/02/2015 Comp Metabolic Upo178 CO2 25.0 mEq/L 06/02/2015 Comp Metabolic Zau871 AN ION GAP 15 06/02/2015 Comp Metabolic Ttn991 GL UCOSE 123 mg/dL 06/02/2015 Comp Metabolic Lfr259 Cr eat 0.7 mg/dL 06/02/2015 Comp Metabolic Hoo472 eG FR 92 ml/min/1.73m2 06/01 Comp Metabolic Xdu528 BUN 21 mg/dL 06/02/2015 Comp Metabolic Nul542 B/ C Ratio 32.3 Ratio 06/02/2015 Comp Metabolic Dix941 CA LCIUM 9.5 mg/dL 06/02/2015 Comp Metabolic Ojr774 AL K PHOS 66 U/L 06/02/2015 Comp Metabolic Bfw787 T(SGOT) 19 U/L 06/02/2015 Comp Metabolic Zxr856 AL T(SGPT) 13 U/L 06/02/2015 Comp Metabolic Bhi969 BI LI T 0.5 mg/dL 06/02/2015 Comp Metabolic Wbw779 AL BUMIN 4.0 g/dL 06/02/2015 Comp Metabolic Ldq166 TP RO 6.3 g/dL 06/02/2015 Comp Metabolic Skt864 GL OB 2.3 g/dL 06/02/2015 Comp Metabolic Jzu103 A/ G Ratio 1.7 Ratio 06/02/2015 Comp Metabolic Rxl051 Os mo 282 mOsmo 06/02/2015 %Hba1C Ygj996 % HbA1c 59491-2 6.7 % 02/17/2015 %Hba1C Yoi575 Gluc Ave 146 mg/dL 02/17/2015 Comp Metabolic Olt535 NA 133 mEq/L 02/17/2015 Comp Metabolic Aye095 K 4.3 mEq/L 02/17/2015 Comp Metabolic Xbk791 CL 99 mEq/L 02/17/2015 Comp Metabolic Jxm703 CO2 27.0 mEq/L 02/17/2015 Comp Metabolic Yws919 AN ION GAP 11 02/17/2015 Comp Metabolic Urs383 GL UCOSE 239 mg/dL 02/17/2015 Comp Metabolic Uae139 Cr eat 0.7 mg/dL 02/17/2015 Comp Metabolic Vbk023 eG FR 79 ml/min/1.73m2 02/17 Comp Metabolic Xyj748 BUN 24 mg/dL 02/17/2015 Comp Metabolic Jbf979 B/ C Ratio 32.4 Ratio 02/17/2015 Comp Metabolic Veh432 CA LCIUM 9.1 mg/dL 02/17/2015 Comp Metabolic Tdw481 AL K PHOS 75 U/L 02/17/2015 Comp Metabolic Hme639 T(SGOT) 18 U/L 02/17/2015 Comp Metabolic Idz871 AL T(SGPT) 11 U/L 02/17/2015 Comp Metabolic Uri043 BI LI T 0.6 mg/dL 02/17/2015 Comp Metabolic Mpq725 AL BUMIN 4.2 g/dL 02/17/2015 Comp Metabolic Kfk088 TP RO 6.2 g/dL 02/17/2015 Comp Metabolic Ama522 GL OB 2.0 g/dL 02/17/2015 Comp Metabolic Xfd643 A/ G Ratio 2.1 Ratio 02/17/2015 Comp Metabolic Mng711 Os mo 278 mOsmo 02/17/2015 %Hba1C Vbe078 % HbA1c 58770-4 6.7 % 11/15/2014 %Hba1C Vmv560 Gluc Ave 146 mg/dL 11/15/2014 Comp Metabolic Iwe100 NA 134 mEq/L 11/15/2014 Comp Metabolic Ssi119 K 4.5 mEq/L 11/15/2014 Comp Metabolic Jxt785 CL 101 mEq/L 11/15/2014 Comp Metabolic Mdy325 CO2 27.0 mEq/L 11/15/2014 Comp Metabolic Xhp346 AN ION GAP 11 11/15/2014 Comp Metabolic Eid994 GL UCOSE 293 mg/dL 11/15/2014 Comp Metabolic Uby281 Cr eat 0.7 mg/dL 11/15/2014 Comp Metabolic Crm010 eG FR 87 ml/min/1.73m2 11/15 Comp Metabolic Znf425 BUN 20 mg/dL 11/15/2014 Comp Metabolic Mqo792 B/ C Ratio 29.4 Ratio 11/15/2014 Comp Metabolic Zis849 CA LCIUM 9.0 mg/dL 11/15/2014 Comp Metabolic Gtr859 AL K PHOS 67 U/L 11/15/2014 Comp Metabolic Fep692 T(SGOT) 17 U/L 11/15/2014 Comp Metabolic Vus909 AL T(SGPT) 10 U/L 11/15/2014 Comp Metabolic Wbb546 BI LI T 0.6 mg/dL 11/15/2014 Comp Metabolic Swe874 AL BUMIN 4.0 g/dL 11/15/2014 Comp Metabolic Fjx814 TP RO 6.0 g/dL 11/15/2014 Comp Metabolic Ssn523 GL OB 2.0 g/dL 11/15/2014 Comp Metabolic Jry514 A/ G Ratio 2.0 Ratio 11/15/2014 Comp Metabolic Oyt619 Os mo 282 mOsmo 11/15/2014 Review of [...] hygiene 11/22/2017 None Full Exam - General 1995 Eyes conjunctiva/eyelids Overall: conjunctiva clear 11/22/2017 None Full Exam - General 1994 Eyes conjunctiva/eyelids Overall: cornea clear 11/22/2017 None Full Exam - General 1994 Eyes conjunctiva/eyelids Overall: eyelids normal 11/22/2017 None Full Exam - General 1994 Eyes pupils and irises Overall: pupils equal, round, reactive to light and accomodation 11/22/2017 None Full Exam - General 1995 Ears/Nose/Throat otoscopic exam Overall: external auditory canals clear 11/22/2017 None Full Exam - General 1995 Ears/Nose/Throat otoscopic exam Overall: tympanic membranes clear 11/22/2017 None Full Exam - General 1995 Ears/Nose/Throat lips/teeth/gingiva Overall: benign lips 11/22/2017 None [...] clear 02/19/2017 None Full Exam - General 1995 Ears/Nose/Throat [...] GLUC MONITOR CONT PH YS I&R CPT-4: 47108 09/16/2017 GLUCOSE MONITORING CONT CPT-4: 59939 07/16/2017 TRIAMCINOLONE ACET I [place] NOS CPT-4: J3301 06/14/2017 DRAIN/INJECT JOINT/B URSA CPT-4: 00769 03/26/2017 TRIAMCINOLONE ACET I [place] NOS CPT-4: J3301 03/26/2017 URINALYSIS NONAUTO W /O SCOPE CPT-4: 63325 01/16/2017 THER/PROPH/DIAG INJ SC/IM CPT-4: 98180 01/16/2017 ROCEPHIN, PER 250 MG CPT-4: J0696 01/16/2017 DESTRUCT PREMALG LESION CPT-4: 77808 10/16/2016 TRIAMCINOLONE ACET I [place] NOS CPT-4: J3301 09/27/2016 ROCEPHIN, PER 250 MG CPT-4: J0696 09/27/2016 PPPS, SUBSEQ VISIT CPT- 4: G0439 07/10/2016 THER/PROPH/DIAG INJ SC/IM CPT-4: 22159 07/09/2016 TRIAMCINOLONE ACET I [place] NOS CPT-4: J3301 07/09/2016 ROCEPHIN, PER 250 MG CPT-4: J0696 07/09/2016 ADMIN PNEUMOCOCCAL V ACCINE SNOMED CT: 64043470 CPT-4: G0009 02/15/2015 PNEUMOCOCCAL VACC 13 LIMA IM Formatting Model/CDA Sections, Assigned to SNOMED CT: 78738116 CPT-4: 70026Rvymzcj 02/15/2015 ADMIN INFLUENZA VIRU S VAC CPT-4: G0008 12/10/2014 FLU VACC 4 LIMA 3 YRS PLUS IM Formatting Model/CDA Sections, Assigned to SNOMED CT: 85689604 CPT-4: 20468Utwmnba 12/10/2014 Vital Signs Date Vital 04/28/2018 Blood Pressure 1: 110/58 Code: 8480-6 BMI: 24.0 Code: 20676-0 Heart Rate 1: 56 bpm Height: 5'2" Respiratory Rate: 18 bpm SpO2: 98% Weight: 131 lbs 12/25/2017 Blood Pressure 1: 140/52 Code: 8480-6 BMI: 24.0 Code: 04622-7 Heart Rate 1: 64 bpm Height: 5'2" Respiratory Rate: 18 bpm SpO2: 96% Weight: 131 lbs 11/22/2017 Blood Pressure 1: 128/54 Code: 8480-6 BMI: 23.4 Code: 44907-0 Heart Rate 1: 62 bpm Height: 5'2" SpO2: 97% Weight: 128 lbs 10/07/2017 Blood Pressure 1: 148/68 Code: 8480-6 BMI: 23.2 Code: 44831-9 Heart Rate 1: 68 bpm Height: 5'2" SpO2: 98% Weight: 127 lbs 09/16/2017 Blood Pressure 1: 134/80 Code: 8480-6 BMI: 22.5 Code: 41864-7 Heart Rate 1: 86 bpm Height: 5'2" SpO2: 98% Weight: 123 lbs 09/09/2017 Blood Pressure 1: 138/72 Code: 8480-6 Blood Pressure 1: 150/66 Code: 8480-6 BMI: 22.9 Code: 13361-8 Heart Rate 1: 81 bpm Height: 5'2" SpO2: 98% Weight: 125 lbs 07/16/2017 Blood Pressure 1: 144/68 Code: 8480-6 BMI: 21.9 Code: 41511-4 Heart Rate 1: 73 bpm Height: 5'2" SpO2: 98% Weight: 120 lbs 06/14/2017 Blood Pressure 1: 132/64 Code: 8480-6 BMI: 22.3 Code: 07222-1 Heart Rate 1: 77 bpm Height: 5'2" SpO2: 98% Temperature: 37.0 (C ) / 98.6 (F) Weight: 122 lbs 06/10/2017 Blood Pressure 1: 134/64 Code: 8480-6 BMI: 22.5 Code: 54155-2 Heart Rate 1: 78 bpm Height: 5'2" SpO2: 95% Weight: 123 lbs 05/13/2017 Blood Pressure 1: 140/66 Code: 8480-6 BMI: 21.6 Code: 17511-0 Heart Rate 1: 80 bpm Height: 5'2" SpO2: 98% Weight: 118 lbs 03/26/2017 Blood Pressure 1: 150/78 Code: 8480-6 BMI: 23.2 Code: 56968-4 Heart Rate 1: 73 bpm Height: 5'2" SpO2: 99% Weight: 127 lbs 02/19/2017 Blood Pressure 1: 126/64 Code: 8480-6 BMI: 22.9 Code: 65847-8 Heart Rate 1: 74 bpm Height: 5'2" SpO2: 99% Weight: 125 lbs 01/16/2017 Blood Pressure 1: 136/68 Code: 8480-6 Heart Rate 1: 97 bpm Height: 5'2" Respiratory Rate: 16 bpm Temperature: 37.5 (C ) / 99.5 (F) Weight: 01/08/2017 Blood Pressure 1: 144/60 Code: 8480-6 BMI: 23.0 Code: 77038-9 Heart Rate 1: 71 bpm Height: 5'2" SpO2: 96% Weight: 126 lbs 11/21/2016 Blood Pressure 1: 150/62 Code: 8480-6 BMI: 23.2 Code: 25600-5 Heart Rate 1: 73 bpm Height: 5'2" SpO2: 94% Weight: 127 lbs 10/16/2016 Blood Pressure 1: 142/82 Code: 8480-6 BMI: 22.9 Code: 58731-4 Heart Rate 1: 80 bpm Height: 5'2" SpO2: 96% Weight: 125 lbs 10/08/2016 Blood Pressure 1: 150/72 Code: 8480-6 Heart Rate 1: 65 bpm Height: 5'2" SpO2: 98% 10/01/2016 Blood Pressure 1: 152/76 Code: 8480-6 Heart Rate 1: 69 bpm Height: 5'2" SpO2: 97% 09/27/2016 Blood Pressure 1: 122/64 Code: 8480-6 BMI: 23.3 Code: 11783-9 Heart Rate 1: 80 bpm Height: 5'2" SpO2: 98% Weight: 127 lbs 8 oz 07/19/2016 Blood Pressure 1: 118/68 Code: 8480-6 BMI: 23.0 Code: 59138-3 Heart Rate 1: 62 bpm Height: 5'2" SpO2: 97% Weight: 126 lbs 07/10/2016 Blood Pressure 1: 132/64 Code: 8480-6 BMI: 23.4 Code: 53866-4 Heart Rate 1: 82 bpm Height: 5'2" SpO2: 98% Waist Measure (cm): 76 cm Weight: 128 lbs 07/09/2016 Blood Pressure 1: 132/64 Code: 8480-6 BMI: 23.4 Code: 76586-5 Heart Rate 1: 82 bpm Height: 5'2" SpO2: 98% Temperature: 37.2 (C ) / 98.9 (F) Weight: 128 lbs 06/06/2016 Blood Pressure 1: 144/66 Code: 8480-6 BMI: 23.4 Code: 84737-8 Heart Rate 1: 77 bpm Height: 5'2" SpO2: 97% Weight: 128 lbs 04/03/2016 Blood Pressure 1: 164/70 Code: 8480-6 BMI: 24.5 Code: 53533-7 Heart Rate 1: 80 bpm Height: 5'2" SpO2: 98% Weight: 134 lbs 12/26/2015 Blood Pressure 1: 130/72 Code: 8480-6 BMI: 24.1 Code: 67994-2 Heart Rate 1: 63 bpm Height: 5'2" SpO2: 98% Weight: 132 lbs 09/19/2015 Blood Pressure 1: 140/68 Code: 8480-6 BMI: 24.2 Code: 42784-7 Heart Rate 1: 96 bpm Height: 5'2" SpO2: 98% Weight: 132 lbs 8 oz 07/19/2015 Blood Pressure 1: 128/64 Code: 8480-6 BMI: 24.2 Code: 36486-9 Heart Rate 1: 66 bpm Height: 5'2" SpO2: 98% Weight: 132 lbs 8 oz 03/22/2015 Blood Pressure 1: 128/60 Code: 8480-6 BMI: 24.0 Code: 75147-9 Heart Rate 1: 57 bpm Height: 5'2" SpO2: 98% Weight: 131 lbs 02/15/2015 Blood Pressure 1: 132/56 Code: 8480-6 BMI: 23.8 Code: 81543-5 Heart Rate 1: 70 bpm Height: 5'2" SpO2: 98% Weight: 130 lbs 11/15/2014 Blood Pressure 1: 120/78 Code: 8480-6 BMI: 24.1 Code: 80414-6 Heart Rate 1: 79 bpm Height: 5'2" SpO2: 98% Weight: 132 lbs 08/13/2014 Blood Pressure 1: 140/60 Code: 8480-6 BMI: 24.0 Code: 75430-3 Heart Rate 1: 74 bpm Height: 5'2" Weight: 131 lbs Functional Status No Functional Status data History of Present Illness Symptom Name Status Resu lt Effective Date Notes Quality stable 04/28/2018 None Length of Episodes 3 d ays 04/28/2018 None Timing of Episodes no specific time 04/28/2018 None Timing of Episodes aft er meals 04/28/2018 None Location in the [facility] 04/28/2018 None Quality aching 04/28/2018 None Quality [...] Encounters Encounter Performer Loca tion Codes Date ([id number]) 80801 EST. P ATIENT, LEVEL IV Diagnosis: Essential (primary) hypertension[ICD10: I10] Diagnosis: Type 2 diabetes mellitus with hyperglycemia[ICD10: E11.65] Diagnosis: Trigger finger, right middle finger[ICD10: M65.331] Dominique Recinos MD, [facility] CPT-4: 26583 04/28/2018 [id number]) 23724 EST. P ATIENT, LEVEL IV Diagnosis: Type 2 diabetes mellitus with hyperglycemia[ICD10: E11.65] Diagnosis: Essential (primary) hypertension[ICD10: I10] Diagnosis: Localized edema[ICD10: R60.0] Dominique Recinos MD, [facility] CPT-4: 93093 12/25/2017 [id number]) 00552 EST. P ATIENT, LEVEL IV Diagnosis: Diverticulitis of large intestine without perforation or abscess without bleeding[ICD10: K57.32] Diagnosis: Nausea[ICD10: R11.0] Maile Recinos MD, [facility] CPT-4: 28928 11/22/2017 ([id number]) Miscellaneou s no charge Diagnosis: Laceration without foreign body of right forearm, subsequent encounter[ICD10: S51.811D] Dominique Recinos MD, [facility] CPT-4: 92382 10/16/2017 ([id number]) Miscellaneou s no charge Diagnosis: Laceration without foreign body of right forearm, subsequent encounter[ICD10: S51.811D] Dominique Recinos MD [facility] CPT-4: 83883 10/14/2017 ([id number]) Miscellaneou s no charge Diagnosis: Laceration without foreign body of right forearm, subsequent encounter[ICD10: S51.811D] Dominique Recinos MD, [facility] CPT-4: 87668 10/09/2017 ([id number]) 39565 EST. P ATIENT, LEVEL III Diagnosis: Type 2 diabetes mellitus with hyperglycemia[ICD10: E11.65] Dominique Recinos MD, [facility] CPT-4: 05798 10/07/2017 ([id number]) 07883 EST. P ATIENT, LEVEL III Diagnosis: Type 2 diabetes mellitus with hyperglycemia[ICD10: E11.65] Fatmata Recinos MD, [facility] CPT-4: 28050 09/16/2017 ([id number]) 30525 EST. P ATIENT, LEVEL III Diagnosis: Essential (primary) hypertension[ICD10: I10] Dominique Recinos MD, [facility] CPT-4: 04248 09/09/2017 ([id number]) Miscellaneou s no charge Diagnosis: Type 1 diabetes mellitus without complications[ICD10: E10.9] Fatmata Recinos MD, [facility] CPT-4: 50421 07/22/2017 ([id number]) 15789 EST. P ATIENT, LEVEL IV Diagnosis: Type 1 diabetes mellitus without complications[ICD10: E10.9] Diagnosis: Mixed hyperlipidemia[ICD10: E78.2] Diagnosis: Essential (primary) hypertension[ICD10: I10] Dominique Recinos MD, C CPT-4: 56764 07/16/2017 ([id number]) 09367 EST. P ATIENT, LEVEL III Diagnosis: Cough[ICD10: R05] Diagnosis: Acute recurrent maxillary sinusitis[ICD10: J01.01] Maile Recinos MD, [facility] CPT-4: 14290 06/14/2017 ([id number]) 59232 EST. P ATIENT, LEVEL IV Diagnosis: Type 1 diabetes mellitus without complications[ICD10: E10.9] Diagnosis: Essential (primary) hypertension[ICD10: I10] Dominique Recinos MD, C CPT-4: 65958 06/10/2017 ([id number]) 66710 EST. P ATIENT, LEVEL IV Diagnosis: Essential (primary) hypertension[ICD10: I10] Diagnosis: Type 1 diabetes mellitus without complications[ICD10: E10.9] Dominique Recinos MD, [facility] CPT-4: 38672 05/13/2017 69719 EST. PATIENT, LEVEL III Diagnosis: Sciatica, right side[ICD10: M54.31] Diagnosis: Low back pain[ICD10: M54.5] Fatmata Recinos MD, [facility] CPT-4: 82870 03/26/2017 ([id number]) 65704 EST. P ATIENT, LEVEL III Diagnosis: Type 1 diabetes mellitus without complications[ICD10: E10.9] Diagnosis: Essential (primary) hypertension[ICD10: I10] Dominique Recinos MD, C CPT-4: 66905 02/19/2017 ([id number]) 65143 EST. P ATIENT, LEVEL IV Diagnosis: Fever presenting with conditions classified elsewhere[ICD10: R50.81] Diagnosis: Weakness[ICD10: R53.1] Diagnosis: Frequency of micturition[ICD10: R35.0] Diagnosis: Type 1 diabetes mellitus without complications[ICD10: E10.9] Dominique Recinos MD, [facility] CPT-4: 35895 01/16/2017 ([id number]) 82009 EST. P ATIENT, LEVEL IV Diagnosis: Type 1 diabetes mellitus without complications[ICD10: E10.9] Diagnosis: Essential (primary) hypertension[ICD10: I10] Dominique Recinos MD, C CPT-4: 05229 01/08/2017 ([id number]) 61537 EST. P ATIENT, LEVEL IV Diagnosis: Essential (primary) hypertension[ICD10: I10] Diagnosis: Type 1 diabetes mellitus without complications[ICD10: E10.9] Dominique Recinos MD, [facility] CPT-4: 67983 11/21/2016 ([id number]) 76875 EST. 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 P ATIENT, LEVEL III Diagnosis: Chronic obstructive pulmonary disease with (acute) exacerbation[ICD10: J44.1] Diagnosis: Cough[ICD10: R05] Maile Recinos MD, [facility] CPT-4: 51019 10/08/2016 ([id number]) Miscellaneou s no charge Diagnosis: Cough[ICD10: R05] Diagnosis: Chronic obstructive pulmonary disease with (acute) exacerbation[ICD10: J44.1] Maile Recinos MD, [facility] CPT-4: 08886 10/01/2016 ([id number]) 69356 EST. P ATIENT, LEVEL III Diagnosis: Cough[ICD10: R05] Diagnosis: Acute bronchitis, unspecified[ICD10: J20.9] Maile Recinos MD, [facility] CPT-4: 78323 09/27/2016 ([id number]) 17954 EST. P ATIENT, LEVEL III Diagnosis: Type 1 diabetes mellitus without complications[ICD10: E10.9] Dominique Recinos MD, [facility] CPT-4: 51319 07/19/2016 ([id number]) 75336 EST. P ATIENT, LEVEL IV Diagnosis: Essential (primary) hypertension[ICD10: I10] Diagnosis: Type 1 diabetes mellitus without complications[ICD10: E10.9] Diagnosis: Other allergic rhinitis[ICD10: J30.89] Diagnosis: Acute laryngopharyngitis[ICD10: J06.0] Dominique Recinos MD, [facility] CPT-4: 16497 07/09/2016 ([id number]) 70009 EST. P ATIENT, LEVEL IV Diagnosis: Essential (primary) hypertension[ICD10: I10] Diagnosis: Type 1 diabetes mellitus without complications[ICD10: E10.9] Diagnosis: Mixed hyperlipidemia[ICD10: E78.2] Dominique Recinos MD, [facility] CPT- 4: 35273 06/06/2016 49022 EST. PATIENT, LEVEL III Diagnosis: Other allergic rhinitis[ICD10: J30.89] Diagnosis: Acute laryngopharyngitis[ICD10: J06.0] Fatmata Recinos MD, [facility] CPT-4: 56894 04/03/2016 ([id number]) 74146 EST. P ATIENT, LEVEL IV Diagnosis: Type 1 diabetes mellitus without complications[ICD10: E10.9] Diagnosis: Essential (primary) hypertension[ICD10: I10] Diagnosis: Pain in right hand[ICD10: M79.641] Dominique Recinos MD, [facility] CPT- 4: 98075 12/26/2015 ([id number]) 68832 EST. P ATIENT, LEVEL IV Diagnosis: Type 1 diabetes mellitus without complications[ICD10: E10.9] Diagnosis: Essential (primary) hypertension[ICD10: I10] Dominique Recinos MD, [facility] CPT-4: 23196 09/19/2015 ([id number]) 77082 EST. P ATIENT, LEVEL IV Diagnosis: Essential (primary) hypertension[ICD10: I10] Diagnosis: Mixed hyperlipidemia[ICD10: E78.2] Diagnosis: Type 1 diabetes mellitus without complications[ICD10: E10.9] Dominique Recinos MD, [facility] CPT-4: 41084 07/19/2015 ([id number]) 73195 EST. P ATIENT, LEVEL IV Diagnosis: Other specified dorsopathies, lumbar region[ICD10: M53.86] Diagnosis: Urge incontinence[ICD10: N39.41] Diagnosis: Type 1 diabetes mellitus without complications[ICD10: E10.9] Dominique Recinos MD, [facility] CPT-4: 25678 03/22/2015 ([id number]) 51857 EST. P ATIENT, LEVEL IV Diagnosis: Essential (primary) hypertension[ICD10: I10] Diagnosis: Other specified dorsopathies, lumbar region[ICD10: M53.86] Diagnosis: Other chronic pain[ICD10: G89.29] Dominique Recinos MD, [facility] CPT-4: 59156 02/15/2015 ([id number] 15317 EST. [facility] Diagnosis: ESSENTIAL HYPERTENSION[ICD9: 401.9] Diagnosis: DIABETES TYPE II[ICD9: 250.00] Diagnosis: FALL FROM LADDER[ICD9: E881.0] Diagnosis: Right hip pain[ICD9: 719.45] Diagnosis: Left hand pain[ICD9: 729.5] Diagnosis: Sacroiliac joint pain[ICD9: 724.6] Dominique Recinos MD, [facility] CPT- 4: 68761 11/15/2014 ([id number]) [facility] Diagnosis: DIABETES TYPE II[ICD9: 250.00] Diagnosis: ESSENTIAL HYPERTENSION[ICD9: 401.9] Diagnosis: HYPERLIPIDEMIA[ICD9: 272.4] Dominique Recinos MD, [facility] CPT-4: 74018 08/13/2014 Plan of Care Planned Activity Notes [...] are starting to become less controlled. 04/28/2018 Patient Education: Patient Medication Summary Completed [...] seated. 12/25/2017 Appointment: Dominique Recinos WPtel: [phone] [facility] (15 min) Moderate 12/25/2017 Patient Education: Patient Medication Summary Completed 12/25/2017 Patient Education: Diabetes Completed 12/25/2017 Appointment: Dominique Recinos WPtel: [phone] [facility] [place] (15 min) Moderate 12/09/2017 Visit Plan: Diverticulitis - rx for antibiotic sent to pt's pharmacy - pt advised to avoid seeds, nuts, popcorn, or any other food which has been proven to upset the pt's stomach. 11/22/2017 Appointment: Maile Randolph WPtel: [phone] [phone] [place] (15 min) Moderate 11/22/2017 Patient Education: [...] glucose. 10/07/2017 [facility]ment: [phone] [place] ([facility] min) Moderate 10/07/2017 Patient Education: [...] clinic. 09/16/2017 App[facility]ment[phone] [place] (15 min) Moderate 09/16/2017 Patient [...] home. 09/09/2017 Appointment: [phone] [place] (15 min) Moderate 09/09/2017 Patient Education: Patient Medication Summary Completed 09/09/2017 App[facility]ment: [phone] [place] (15 min) Moderate 09/06/2017 Appointment: [phone] (15 min) Moderate 09/05/2017 Appointment: [facility]ann [phone] (15 min) Moderate 07/22/2017 Patient Education: Patient [...] less controlled. ipro placed today - by [employer]MON [employer]ILL[employer] VESSEL OPERATOR - pt to RTC on Saturday for [...] less controlled. ipro placed today - by [employer] VESSEL OPERATOR - pt to RTC on Saturday for [...] to medications. 07/16/2017 Appointment: Dominique Recinos WPtel: [facility] (15 min) Moderate 07/16/2017 Patient Education: Patient Medication Summary Completed 07/16/2017 Visit Plan: Sinusitis - Pt has acut e infection - pain in face, maxillary region, Pt informed to use decongestant, RX given to patient, sinus rinses also recommended. Call if symptoms do not show improvement. 06/14/2017 Appointment: Maile Randolph WPtel: [phone] (30 min) Complex 06/14/2017 Patient Education: Patient [...] home. 06/10/2017 Appointment: Dominique Recinos WPtel: [phone] [facility] (15 min) Moderate 06/10/2017 Patient Education: Patient Medication Summary Completed 06/10/2017 Appointment: Fatmata Spann WPtel[facility] (30 min) Complex 06/03/2017 Visit Plan: Hypertension [...] less controlled. 05/13/2017 Appointment: Dominique Recinos WPtel: [facility] (15 min) Moderate 05/13/2017 Patient Education: Patient Medication Summary Completed 05/13/2017 Appointment: [facility]el: [phone] [place] (30 min) Complex 05/03/2017 Appointment: Fatmata Spann WPtel: [facility] [place] (15 min) Moderate 04/12/2017 Appointment: Dominique Recinos WPtel: [facility] [place] (15 min) Moderate 04/11/2017 Appointment: Dominique Recinos WPtel: [facility] [place] (15 min) Moderate 04/10/2017 Appointment: Dominique Recinos WPtel: [address] [place], [place] [address] [place] (15 min) Moderate 04/02/2017 Visit Plan: [...] of injection. 03/26/2017 Appointment: Fatmata Spann WPtel: [phone] [facility] (30 min) Complex 03/26/2017 Appointment: Dominique Recinos WPtel: [phone] [facility] (15 min) Moderate 03/26/2017 Patient Education: [...] home. 02/19/2017 Appointment: Dominique Recinos WPtel: [phone] [facility] (15 min) Moderate 02/19/2017 Patient Education: Patient Medication Summary Completed 02/19/2017 Patient Education: Hypertension Completed 02/19/2017 Appointment: Dominique Recinos WPtel: [facility] (15 min) Moderate 02/12/2017 Visit Plan: [...] above 100F. 01/16/2017 Appointment: Dominique Recinos WPtel: [facility] (15 min) Moderate 01/16/2017 Patient Education: [...] at home. 01/08/2017 Appointment: Dominique Recinos WPtel: [facility] (15 min) Moderate 01/08/2017 Patient Education: Patient Medication Summary Completed 01/08/2017 Patient Education: Hypertension Completed 01/08/2017 Appointment: Dominique Recinos WPtel: [facility] [place] (15 min) Moderate 12/31/2016 Appointment: Dominique Recinos WPtel: [address] [place], [place] [phone] (15 min) Moderate 12/18/2016 Visit Plan: Hypertension [...] less controlled. 11/21/2016 Appointment: Dominique Recinos WPtel: [address] [place], [place] [address] (15 min) Moderate 11/21/2016 Patient Education: Patient [...] Plan: DM - uncontrolled - inc rease leonorus to 15 units - We will refer [...] potatoes, creamy coleslaw, etc. -- referral to access control specialist. Hyperlipidemia - pt has been [...] until healed 10/16/2016 Appointment: Dominique Recinos [facility]Ptel: [phone] [place] (15 min) Moderate 10/16/2016 Patient Education: Patient Medication Summary Completed 10/16/2016 Patient Education: Hypertension Completed 10/16/2016 Patient Education: Patient Medication Summary Completed 10/09/2016 Care Plan: Free T4 Pending 10/09/2016 Visit Plan: COPD exacerbation-cough -symptoms resolved-call if symptoms return-monitor blood sugars closely for the next few days and discussed diet. 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 10/01/2016 Appointment: Maile Randolph WPtel: [phone] (30 min) Complex 10/01/2016 Patient Education: Patient Medication Summary Completed 10/01/2016 Visit Plan: Bronchitis - acute case of bronchitis identified. Pt has been given antibiotics, breathing treatments as appropriate, and pt has been instructed to call if symptoms are not improved, or if symptoms acutely worsen. 09/27/2016 Appointment: Maile Randolph WPtel: [phone] (30 min) Complex 09/27/2016 Patient Education: Patient [...] controlled. 07/19/2016 Appointment: Domin[facility] Recinos [facility]Ptel: [phone] (15 min) Moderate 07/19/2016 Patient Education: [...] surrogate. 07/10/2016 Appointment: Fatmata Spann WPtel: [phone] [facility] [facility] - Annual Wellness Visit [...] improving 07/09/2016 Appointment: Dominique Recinos WPtel: [phone] [facility] (15 min) Moderate 07/09/2016 Patient Education: Patient Medication Summary Completed 07/09/2016 Patient Education: Hypertension Completed 07/09/2016 Appointment: Dominique Recinos WPtel: [facility] (15 min) Moderate 06/26/2016 Visit Plan: [...] me dications. 06/06/2016 Appointment: Dominique Recinos WPtel: [facility] (15 min) Moderate 06/06/2016 Patient Education: Patient Medication Summary Completed 06/06/2016 Appointment: Dominique Recinos WPtel: [address] [place], [place] [phone] (15 min) Moderate 04/30/2016 Visit Plan: URI [...] allergy spray. 04/03/2016 Appointment: Fatmata Spann WPtel: [facility] (30 min) Complex 04/03/2016 Patient Education: Patient [...] Hypertension Completed 12/26/2015 Appointment: Domin[facility] Recinos [facility]Ptel: [phone] (15 min) Moderate 12/19/2015 Visit Plan: [...] home. 09/19/2015 Appointment: Dominique Recinos WPtel: 101 [facility] [place] (15 min) Moderate 09/19/2015 Patient Education: [...] me dications. 07/19/2015 Appointment: Dominique Recinos WPtel: [phone] [facility] (15 min) Moderate 07/19/2015 Patient Education: [...] enzyme q10. Back pain - referral to [facility] physical therapy for further eval and treat. 03/22/2015 Appointment: Dominique Recinos WPtel: [phone] (15 min) Moderate 03/22/2015 Patient Education: Patient Medication Summary Completed 03/22/2015 Care Plan: Referral Order SNOMED-CT : [id number] Ordered 03/22/2015 Visit Plan: Hypertension - well [...] me dications. 08/13/2014 Appointment: Dominique Recinos WPtel: [phone] [place] ([place] New Patient 08/13/2014 [...] cheese, mashed potatoes, creamy coleslaw, etc. . Medicare Exam - to day we [...] are starting to become less controlled. get blood work done about 1 week [...] not improving two old goats - from [employer] [facility] home . Hypertension - well [...] if symptoms do not show improvement. . Hypertension - wel l controlled - [...] potatoes, creamy coleslaw, etc. -- referral to access control specialist. Hyperlipidemia - pt has been [...] less controlled. ipro placed today - by [employer]MON GILL[employer] VESSEL OPERATOR - pt to RTC on Saturday for [...] less controlled. ipro placed today - by SALMON GILL[employer] VESSEL OPERATOR - pt to RTC on Saturday for [...]
--- OUTSIDE RECORDS SUMMARY | 2019-06-14 17:19 | XMS REPORT | CCD ---
Author Author Nathalia Recinos Organization [facility] Address [address] [place] [address] Phone Care Team Providers Care Home Health Billing Specialist Name Role Phone PP Unavailable CCM Unavailable Summary Purpose Interface Exchange Insurance Providers Payer name Policy type / Coverage type Covered green party ID Effective Begin Date Effective End Date WPS Medicare Part B Medicare Part B [id number] 2017 Unknown [facility] ica Part B [id number] Un known Family history Mother Diagnosis Age At Onset No Family Disease Entered N/A Father Diagnosis Age At Onset Heart Attack Unknown Diabetes Unknown Social History Social History Element Codes Description Effective Dates Number of children Unknown 2 Sons, 5 grandchildren, 11 great grandchildren 01/08/2017 Marital status Unknown W crystal [place] in [address]606/06/[address]: 623034828 Never smoker 08/13/[address]: 074640420 Never drinks alcohol 08/13/2014 Allergies, Adverse Reactions, Alerts Substance Reaction Codes Entered Date Inactivated Date Status * NO KNOWN DRUG ABE RGIES Unknown 11/15/2014 No Inactive Date Active Past Medical History Illness Codes Condition Status Onset Date Resolved Date Essential (primary) hypertension ICD-9: 401.1 ICD-10: I10 Active 05/13/2017 Unknown Localized edema ICD-9: 782.3 ICD-10: R60.0 Active 12/25/2017 Unknown Type 2 diabetes kristy itus with hyperglycemia ICD-9: 250.02 ICD-10: E11.65 Active 09/16/2017 Unknown Diverticulitis of la rge intestine without [...] hypertension ICD-9: 401.1 ICD-10: I10 05/13/2017 Active Localized edema ICD-9: 782.3 ICD-10: R60.0 12/25/2017 Active Type 2 diabetes kristy itus with hyperglycemia ICD-9: 250.02 ICD-10: E11.65 09/16/2017 Active Diverticulitis of la rge intestine without [...] Codes Instruc tions Start Date Stop Date Fill Instructions Zoloft 50 mg tablet RxNorm: 905207 TAKE ONE TABLET BY MOUTH DAILY 04/28/2018 04/22/2019 Ac tive gabapentin 100 mg ca psule RxNorm: 893563 TAKE ONE CAPSULE BY M OUTH THREE TIMES A DAY 04/09/2018 07/16/2018 Ac tive Novolog U-100 Insuli n aspart 100 unit/mL subcutaneous solution RxNorm: 577050 SSI 5 units over 150 and for every additional 50 add 2 units Unit(s) SQ TID adjust as needed for glucose control 12/25/2017 07/22/2018 Active Cipro 500 mg tablet RxNorm: 027774 1 Tablet(s) PO BID 11/22/2017 12/01/2017 Inactive clotrimazole 1 % top ical cream RxNorm: 882430 1 Application TOP BID 11/22/2017 12/05/2017 Inactive Flagyl 500 mg tablet RxNorm: 516552 1 Tablet(s) PO TID 11/22/2017 12/01/2017 Inactive Lantus U-100 Insulin 100 unit/mL subcutaneous solution RxNorm: 832064 17 Unit(s) SQ QAM 11/11/2017 07/08/2018 Active Novolog U-100 Insuli n aspart 100 unit/mL subcutaneous solution RxNorm: 939167 SSI 5 units over 150 and for every additional 50 add 2 units Unit(s) SQ TID adjust as needed for glucose control 11/11/2017 12/24/2017 Inactive gabapentin 100 mg ca psule RxNorm: 371209 TAKE ONE CAPSULE BY M OUTH THREE TIMES A DAY 11/05/2017 02/11/2018 Inactive Kenalog 40 mg/mL fanny pension for injection RxNorm: 7325236 1 Milliliter(s) Inj 06/14/2017 06/14/2017 In active Flonase Allergy Reli ef 50 mcg/actuation nasal spray,suspension RxNorm: 1808091 2 [place] NASAL daily 06/14/2017 06/20/2017 Inactive doxycycline hyclate 100 mg tablet RxNorm: 070427 1 Tablet(s) PO BID 06/14/2017 06/20/2017 Inactive Lantus U-100 Insulin 100 unit/mL subcutaneous solution RxNorm: 917589 17 Unit(s) SQ QAM 06/10/2017 07/09/2017 Inactive gabapentin 100 mg ca psule RxNorm: 786769 TAKE ONE CAPSULE BY M OUTH THREE TIMES A DAY 05/23/2017 08/29/2017 Inactive Lantus U-100 Insulin 100 unit/mL subcutaneous solution RxNorm: 739251 15 Unit(s) SQ QAM 05/14/2017 06/09/2017 Inactive Novolog U-100 Insuli n aspart 100 unit/mL subcutaneous solution RxNorm: 773013 SSI 5 units over 150 and for every additional 50 add 2 units Unit(s) SQ TID adjust as needed for glucose control 04/24/2017 11/10/2017 Inactive Zocor 20 mg tablet RxNorm: 265895 1 Tablet(s) PO daily 04/05/2017 03/30/2018 Inactive Kenalog 40 mg/mL fanny pension for injection RxNorm: 8891787 1 Milliliter(s) Inj 03/26/2017 03/26/2017 In active Novolog 100 unit/mL subcutaneous solution RxNorm: 578789 SSI 5 units over 150 and for every additional 50 add 2 units Unit(s) SQ TID adjust as needed for glucose control 02/19/2017 04/23/2017 Inactive Lantus 100 unit/mL s ubcutaneous solution RxNorm: 619123 10 Unit(s) SQ QAM 02/19/2017 05/13/2017 In active ceftriaxone 500 mg s olution for injection RxNorm: 9872736 Inj 01/16/2017 01/16/2017 Inactive Lantus 100 unit/mL s ubcutaneous solution RxNorm: 025877 7 Unit(s) SQ QAM 01/16/2017 02/18/2017 In active Lantus 100 unit/mL s ubcutaneous solution RxNorm: 048799 10 Unit(s) SQ daily 01/08/2017 05/12/2017 In active gabapentin 100 mg ca psule RxNorm: 200030 TAKE ONE CAPSULE BY M OUTH THREE TIMES A DAY 11/30/2016 02/03/2017 Inactive Zoloft 50 mg tablet RxNorm: 312831 TAKE ONE TABLET BY MOUTH DAILY 10/30/2016 04/27/2017 In active Zocor 20 mg tablet RxNorm: 965626 1 Tablet(s) PO daily 10/16/2016 04/04/2017 Inactive stop the 40mg dose of zocor, start on 20 mg Lantus 100 unit/mL s ubcutaneous solution RxNorm: 492154 15 Unit(s) SQ daily 10/16/2016 01/07/2017 In active Novolog 100 unit/mL subcutaneous solution RxNorm: 316188 SSI 5 units over 150 and for every additional 50 add 2 units Unit(s) SQ TID adjust as needed for glucose control 10/16/2016 02/18/2017 Inactive prednisone 20 mg tablet RxNorm: 651875 1 Tablet(s) PO BID 10/01/2016 10/05/2016 Inactive Kenalog 40 mg/mL fanny pension for injection RxNorm: 6703016 1 Milliliter(s) Inj 09/27/2016 09/27/2016 In active Zithromax Z-Kishor 250 mg tablet RxNorm: 761209 1 Tablet(s) PO UD 09/27/2016 10/01/2016 Inactive ceftriaxone 500 mg s olution for injection RxNorm: 0303236 1 Milliliter(s) Inj 09/27/2016 09/27/2016 In active Augmentin 500 mg-125 mg tablet RxNorm: 365569 1 Tablet(s) PO BID 09/22/2016 09/26/2016 Inactive Tessalon Perles 100 mg capsule RxNorm: 544829 1 Capsule(s) PO Q8 MT N as needed 09/22/2016 04/27/2018 In active metoprolol tartrate 50 mg tablet RxNorm: 599872 TAKE ONE TABLET BY [facility] TWICE A DAY 08/02/2016 07/27/2017 Inactive Novolog 100 unit/mL subcutaneous solution RxNorm: 568751 10 Unit(s) SQ TID adj ust as needed for glucose control 07/19/2016 10/15/2016 Inactive Humalog 100 unit/mL subcutaneous solution RxNorm: 630068 INJECT 10 UNITS UNDER THE SKIN BEFORE EACH MEAL 07/16/2016 07/16/2016 Inactive Kenalog 40 mg/mL fanny pension for injection RxNorm: 6319549 1 Milliliter(s) Inj 07/09/2016 07/09/2016 In active ceftriaxone 500 mg s olution for injection RxNorm: 9396080 Inj 07/09/2016 07/09/2016 Inactive Lantus 100 unit/mL s ubcutaneous solution RxNorm: 611121 Unit(s) INJECT 13 UNI TS UNDER THE SKIN IN THE MORNING 06/06/2016 10/15/2016 Inactive Zoloft 50 mg tablet RxNorm: 854684 TAKE ONE TABLET BY MOUTH DAILY 04/27/2016 07/25/2016 In active Lantus 100 unit/mL s ubcutaneous solution RxNorm: 763871 INJECT 20 UNITS UNDER THE SKIN AT BEDTIME 04/27/2016 06/05/2016 Inactive amoxicillin 500 mg c apsule RxNorm: 722293 1 Capsule(s) PO TID 04/03/2016 04/12/2016 Inactive Zyrtec 10 mg tablet RxNorm: 9600529 1 Tablet(s) PO daily 04/03/2016 05/02/2016 Inactive hydrochlorothiazide 12.5 mg capsule RxNorm: 108868 TAKE ONE CAPSULE BY M OUTH DAILY 03/12/2016 12/06/2016 In active Benicar 40 mg tablet RxNorm: 898397 1 Tablet(s) PO daily 02/28/2016 04/27/2016 Inactive Benicar 40 mg tablet RxNorm: 585890 1 Tablet(s) PO daily 02/20/2016 02/27/2016 Inactive gabapentin 100 mg ca psule RxNorm: 389801 TAKE ONE CAPSULE BY M OUTH THREE TIMES A DAY 01/09/2016 04/16/2016 Inactive metoprolol tartrate 50 mg tablet RxNorm: 778273 TAKE ONE TABLET BY MO UTH TWICE A DAY 01/09/2016 04/07/2016 Inactive Humalog 100 unit/mL subcutaneous solution RxNorm: 754770 5-10 Unit(s) SQ AC 07/19/2015 07/18/2016 In active Lantus 100 unit/mL s ubcutaneous solution RxNorm: 231276 13 Unit(s) SQ QAM 07/19/2015 01/15/2017 In active Lantus 100 unit/mL s ubcutaneous solution RxNorm: 774585 20 Unit(s) SQ QHS 07/14/2015 07/18/2015 In active Zoloft 50 mg tablet RxNorm: 382562 1 Tablet(s) PO daily 05/19/2015 09/15/2015 Inactive Humalog 100 unit/mL subcutaneous solution RxNorm: 255312 10 Unit(s) SQ AC 05/11/2015 07/18/2015 In active metoprolol tartrate 50 mg tablet RxNorm: 579316 1 Tablet(s) PO BID 04/28/2015 08/25/2015 Inactive Lantus 100 unit/mL s ubcutaneous solution RxNorm: 440365 20 Unit(s) SQ QHS 04/28/2015 07/13/2015 In active Vesicare 10 mg tablet RxNorm: 691780 1 Tablet(s) PO QPM 03/22/2015 09/18/2015 Inactive hydrochlorothiazide 12.5 mg capsule RxNorm: 749498 1 Tablet(s) PO daily 01/04/2015 12/29/2015 In active gabapentin 100 mg ca psule RxNorm: 937633 1 Capsule(s) PO TID 11/29/2014 03/28/2015 Inactive [...] Date Active aspirin 81 mg tablet RxNorm: 556018 1 Tablet(s) PO daily No Start Date Active doxazosin 2 mg tablet RxNorm: 746006 1 Tablet(s) PO QHS No Start Date Active Fish Oil oral RxNorm: 4178256 oral No Start Date Active multivitamin capsule RxNorm: 1 Capsule(s) PO daily No Start Date Active Humalog 100 unit/mL subcutaneous solution RxNorm: 468760 Unit(s) SQ No Start Date 05/10/2015 Inactive Zoloft 50 mg tablet RxNorm: 048055 1 Tablet(s) PO daily No Start Date 05/18/2015 Inactive gabapentin 100 mg ca psule RxNorm: 790101 1 Capsule(s) PO daily No Start Date 11/28/2014 Inactive metoprolol tartrate 50 mg tablet RxNorm: 540231 1 Tablet(s) PO TID No Start Date 04/27/2015 Inactive Benicar 40 mg tablet RxNorm: 339762 1 Tablet(s) PO daily No Start Date 02/19/2016 Inactive hydrochlorothiazide 25 mg tablet RxNorm: 187884 1 Tablet(s) PO daily No Start Date 01/03/2015 Inactive Lantus 100 unit/mL s ubcutaneous solution RxNorm: 072418 13 Unit(s) SQ No Start Date 04/27/2015 Inactive Zocor 40 mg tablet RxNorm: 990514 1 Tablet(s) PO daily No Start Date 10/15/2016 Inactive Medication Administered Medication Codes Instruc tions Start Date Status Kenalog 40 mg/mL suspension for injection RxNorm: 3076402 1Milliliter 06/14/2017 N o longer Active Kenalog 40 mg/mL suspension for injection RxNorm: 6154144 1Milliliter 03/26/2017 N o longer Active ceftriaxone 500 mg solution for injection RxNorm: 0614526 01/16/2017 No longer A ctive Kenalog 40 mg/mL suspension for injection RxNorm: 6376052 1Milliliter 09/27/2016 N o longer Active ceftriaxone 500 mg solution for injection RxNorm: 2986091 1Milliliter 09/27/2016 N o longer Active ceftriaxone 500 mg solution for injection RxNorm: 7319062 07/09/2016 No longer A ctive Kenalog 40 mg/mL suspension for injection RxNorm: 8591063 1Milliliter 07/09/2016 N o longer Active Immunizations [...] (primary) hypertension ICD -10: I10 ICD-9: 401.1 12/25/2017 Type 2 diabetes mellitus with hyperglycemia ICD-10: E11.65 ICD-9: 250.02 12/25/2017 Localized edema ICD-10: R60.0 ICD-9: 782.3 12/25/2017 [...] Reason For Visit Effective Dates Notes diarrhea 12/25/2017 diarrhea 11/22/2017 diabetes mellitus 10/07/2017 [...] Code Item Item Code Result Date %Hba1C Ohe951 % HbA1c 66409-7 7.1 % 12/25/2017 %Hba1C Qwt054 Gluc Ave 157 mg/dL 12/25/2017 Comp Metabolic Kmk660 NA 139 mEq/L 12/25/2017 Comp Metabolic Lsr609 K 4.1 mEq/L 12/25/2017 Comp Metabolic Xlu237 CL 104 mEq/L 12/25/2017 Comp Metabolic Uif538 CO2 28.0 mEq/L 12/25/2017 Comp Metabolic Rdk742 AN ION GAP 11 12/25/2017 Comp Metabolic Cao469 GL UCOSE 129 mg/dL 12/25/2017 Comp Metabolic Ukc402 Cr eat 0.7 mg/dL 12/25/2017 Comp Metabolic Dcq657 eG FR 83 ml/min/1.73m2 12/25 Comp Metabolic Vvm240 BUN 22 mg/dL 12/25/2017 Comp Metabolic Kmu169 B/ C Ratio 31.0 Ratio 12/25/2017 Comp Metabolic Ktj804 CA LCIUM 9.4 mg/dL 12/25/2017 Comp Metabolic Vlk305 AL K PHOS 70 U/L 12/25/2017 Comp Metabolic Ghy035 T(SGOT) 16 U/L 12/25/2017 Comp Metabolic Gqv250 AL T(SGPT) 12 U/L 12/25/2017 Comp Metabolic Rdj865 BI LI T 0.5 mg/dL 12/25/2017 Comp Metabolic Gyt463 AL BUMIN 4.2 g/dL 12/25/2017 Comp Metabolic Dlv718 TP RO 6.1 g/dL 12/25/2017 Comp Metabolic Pay248 GL OB 1.9 g/dL 12/25/2017 Comp Metabolic Jwz426 A/ G Ratio 2.1 Ratio 12/25/2017 Comp Metabolic Rbi965 Os mo 283 mOsmo 12/25/2017 %Hba1C Wzy714 % HbA1c 18938-5 8.0 % 05/13/2017 %Hba1C Rfl939 Gluc Ave 183 mg/dL 05/13/2017 Comp Metabolic Egi442 NA 135 mEq/L 05/13/2017 Comp Metabolic Igf035 K 3.8 mEq/L 05/13/2017 Comp Metabolic Wfv027 CL 99 mEq/L 05/13/2017 Comp Metabolic Pde520 CO2 29.0 mEq/L 05/13/2017 Comp Metabolic Fgd006 AN ION GAP 11 05/13/2017 Comp Metabolic Jbh043 GL UCOSE 155 mg/dL 05/13/2017 Comp Metabolic Mkb355 Cr eat 0.7 mg/dL 05/13/2017 Comp Metabolic Qdb581 eG FR 90 ml/min/1.73m2 05/13 Comp Metabolic Rgd051 BUN 18 mg/dL 05/13/2017 Comp Metabolic Vpl677 B/ C Ratio 27.3 Ratio 05/13/2017 Comp Metabolic Nns418 CA LCIUM 8.9 mg/dL 05/13/2017 Comp Metabolic Zxj034 AL K PHOS 90 U/L 05/13/2017 Comp Metabolic Atq234 T(SGOT) 18 U/L 05/13/2017 Comp Metabolic Cpv987 AL T(SGPT) 15 U/L 05/13/2017 Comp Metabolic Xqh998 BI LI T 0.5 mg/dL 05/13/2017 Comp Metabolic Rro052 AL BUMIN 4.0 g/dL 05/13/2017 Comp Metabolic Abi073 TP RO 5.9 g/dL 05/13/2017 Comp Metabolic Lvc249 GL OB 1.9 g/dL 05/13/2017 Comp Metabolic Vvt089 A/ G Ratio 2.1 Ratio 05/13/2017 Comp Metabolic Otf649 Os mo 275 mOsmo 05/13/2017 Urine Culture Ucult Comp lete NO Growth Day 2 01/18 Urine Culture Ucult Prel iminary NO Growth Day 1 01/18 Free T4 Nsi242 FREE T4 1.13 ng/dL 10/09/2016 Tsh Ord6 [...] 31.5 pg 10/08/2016 Cbc With Differential Ord2 Jackson% 4.0 % 10/08/2016 Cbc With Differential Ord2 [...] 0.96 K/ul 10/08/2016 Cbc With Differential Ord2 Jackson ABS# 0.4 K/ul 10/08/2016 Cbc With Differential Ord2 Eos ABS# 0.0 K/ul 10/08/2016 Cbc With Differential Ord2 Baso ABS# 0.0 K/ul 10/08/2016 Comp Metabolic Amq185 NA 135 mEq/L 10/08/2016 Comp Metabolic Swj917 K 4.3 mEq/L 10/08/2016 Comp Metabolic Cfb550 CL 98 mEq/L 10/08/2016 Comp Metabolic Juu508 CO2 22.0 mEq/L 10/08/2016 Comp Metabolic Xuz445 AN ION GAP 19 10/08/2016 Comp Metabolic Vli825 GL UCOSE 400 mg/dL 10/08/2016 Comp Metabolic Hre178 Cr eat 0.7 mg/dL 10/08/2016 Comp Metabolic Dzm852 eG FR 79 ml/min/1.73m2 10/08 Comp Metabolic Cax819 BUN 27 mg/dL 10/08/2016 Comp Metabolic Nzp517 B/ C Ratio 36.5 Ratio 10/08/2016 Comp Metabolic Oax498 CA LCIUM 9.1 mg/dL 10/08/2016 Comp Metabolic Ena416 AL K PHOS 65 U/L 10/08/2016 Comp Metabolic Gqj065 T(SGOT) 28 U/L 10/08/2016 Comp Metabolic Oen912 AL T(SGPT) 24 U/L 10/08/2016 Comp Metabolic Ojd097 BI LI T 0.7 mg/dL 10/08/2016 Comp Metabolic Oxb486 AL BUMIN 3.8 g/dL 10/08/2016 Comp Metabolic Bwt830 TP RO 6.0 g/dL 10/08/2016 Comp Metabolic Zqi288 GL OB 2.2 g/dL 10/08/2016 Comp Metabolic Sxl790 A/ G Ratio 1.7 Ratio 10/08/2016 Comp Metabolic Urf857 Os mo 292 mOsmo 10/08/2016 %Hba1C Yst199 % HbA1c 51248-1 7.0 % 10/08/2016 %Hba1C Ibb679 Gluc Ave 154 mg/dL 10/08/2016 Microalbumin Egl755 Micr oAlb <0.7 mg/dL 10/08/2016 Lipid Ord30 [...] OK? TNP:Duplicate Order 04/03/2016 C A/B FLU 0399566 Influe nza A Scr Negative 04/03/2016 C A/B FLU 7322717 Influe nza B Scr Negative 04/03/2016 Comp Metabolic Ukz590 NA 138 mEq/L 09/15/2015 Comp Metabolic Lhe045 K 4.4 mEq/L 09/15/2015 Comp Metabolic Gpc529 CL 103 mEq/L 09/15/2015 Comp Metabolic Ppn452 CO2 29.0 mEq/L 09/15/2015 Comp Metabolic Yqx245 AN ION GAP 10 09/15/2015 Comp Metabolic Gmx230 GL UCOSE 156 mg/dL 09/15/2015 Comp Metabolic Cus234 Cr eat 0.7 mg/dL 09/15/2015 Comp Metabolic Uuo768 eG FR 79 ml/min/1.73m2 09/14 Comp Metabolic Wkk687 BUN 23 mg/dL 09/15/2015 Comp Metabolic Jub766 B/ C Ratio 31.1 Ratio 09/15/2015 Comp Metabolic Srs096 CA LCIUM 9.1 mg/dL 09/15/2015 Comp Metabolic Rxp737 AL K PHOS 58 U/L 09/15/2015 Comp Metabolic Ewf938 T(SGOT) 19 U/L 09/15/2015 Comp Metabolic Skm280 AL T(SGPT) 11 U/L 09/15/2015 Comp Metabolic Tkf142 BI LI T 0.6 mg/dL 09/15/2015 Comp Metabolic Xeo153 AL BUMIN 3.9 g/dL 09/15/2015 Comp Metabolic Bdz025 TP RO 5.8 g/dL 09/15/2015 Comp Metabolic Aqb159 GL OB 1.9 g/dL 09/15/2015 Comp Metabolic Onf954 A/ G Ratio 2.1 Ratio 09/15/2015 Comp Metabolic Sra702 Os mo 283 mOsmo 09/15/2015 Cbc With [...] 30.5 pg 09/15/2015 Cbc With Differential Ord2 Jackson% 10.2 % 09/15/2015 Cbc With Differential Ord2 [...] 0.86 K/ul 09/15/2015 Cbc With Differential Ord2 Jackson ABS# 0.5 K/ul 09/15/2015 Cbc With Differential Ord2 Eos ABS# 0.1 K/ul 09/15/2015 Cbc With Differential Ord2 Baso ABS# 0.0 K/ul 09/15/2015 Tsh Ord6 hTSH II 0.76 uIU/mL 09/15/2015 Lipid Ord30 CHOL 139 mg/dL 09/15/2015 Lipid Ord30 HDL 57.0 mg/dl 09/15/2015 Lipid Ord30 TRIG 76 mg/dL 09/15/2015 Lipid Ord30 LDL 67 mg/dL 09/15/2015 Lipid Ord30 C/HDL 2.4 Ratio 09/15/2015 %Hba1C Myh624 % HbA1c 18371-2 6.6 % 09/15/2015 %Hba1C Lmj420 Gluc Ave 143 mg/dL 09/15/2015 Tsh Ord6 hTSH II 0.68 uIU/mL 06/02/2015 %Hba1C Abt685 % HbA1c 57179-2 6.5 % 06/02/2015 %Hba1C Aux004 Gluc Ave 140 mg/dL 06/02/2015 Comp Metabolic Fva145 NA 139 mEq/L 06/02/2015 Comp Metabolic Sak019 K 4.5 mEq/L 06/02/2015 Comp Metabolic Ash000 CL 104 mEq/L 06/02/2015 Comp Metabolic Dgs257 CO2 25.0 mEq/L 06/02/2015 Comp Metabolic Kei182 AN ION GAP 15 06/02/2015 Comp Metabolic Fwf925 GL UCOSE 123 mg/dL 06/02/2015 Comp Metabolic Hco799 Cr eat 0.7 mg/dL 06/02/2015 Comp Metabolic Eyr143 eG FR 92 ml/min/1.73m2 06/01 Comp Metabolic Ody489 BUN 21 mg/dL 06/02/2015 Comp Metabolic Ahb500 B/ C Ratio 32.3 Ratio 06/02/2015 Comp Metabolic Xlo939 CA LCIUM 9.5 mg/dL 06/02/2015 Comp Metabolic Wua088 AL K PHOS 66 U/L 06/02/2015 Comp Metabolic Iqk271 T(SGOT) 19 U/L 06/02/2015 Comp Metabolic Qvr352 AL T(SGPT) 13 U/L 06/02/2015 Comp Metabolic Qhz621 BI LI T 0.5 mg/dL 06/02/2015 Comp Metabolic Dac506 AL BUMIN 4.0 g/dL 06/02/2015 Comp Metabolic Rpm464 TP RO 6.3 g/dL 06/02/2015 Comp Metabolic Odi825 GL OB 2.3 g/dL 06/02/2015 Comp Metabolic Lnp119 A/ G Ratio 1.7 Ratio 06/02/2015 Comp Metabolic Bdi456 Os mo 282 mOsmo 06/02/2015 %Hba1C Esa702 % HbA1c 61191-0 6.7 % 02/17/2015 %Hba1C Huv680 Gluc Ave 146 mg/dL 02/17/2015 Comp Metabolic Ftq181 NA 133 mEq/L 02/17/2015 Comp Metabolic Xuz745 K 4.3 mEq/L 02/17/2015 Comp Metabolic Vlw542 CL 99 mEq/L 02/17/2015 Comp Metabolic Cua787 CO2 27.0 mEq/L 02/17/2015 Comp Metabolic Yyo357 AN ION GAP 11 02/17/2015 Comp Metabolic Ijv847 GL UCOSE 239 mg/dL 02/17/2015 Comp Metabolic Gfx462 Cr eat 0.7 mg/dL 02/17/2015 Comp Metabolic Wcl811 eG FR 79 ml/min/1.73m2 02/17 Comp Metabolic Mgg331 BUN 24 mg/dL 02/17/2015 Comp Metabolic Oiz625 B/ C Ratio 32.4 Ratio 02/17/2015 Comp Metabolic Dxc264 CA LCIUM 9.1 mg/dL 02/17/2015 Comp Metabolic Tuh200 AL K PHOS 75 U/L 02/17/2015 Comp Metabolic Mtv888 T(SGOT) 18 U/L 02/17/2015 Comp Metabolic Ogt795 AL T(SGPT) 11 U/L 02/17/2015 Comp Metabolic Ehx710 BI LI T 0.6 mg/dL 02/17/2015 Comp Metabolic Nqf850 AL BUMIN 4.2 g/dL 02/17/2015 Comp Metabolic Kcl205 TP RO 6.2 g/dL 02/17/2015 Comp Metabolic Mmc308 GL OB 2.0 g/dL 02/17/2015 Comp Metabolic Rot503 A/ G Ratio 2.1 Ratio 02/17/2015 Comp Metabolic Pks130 Os mo 278 mOsmo 02/17/2015 %Hba1C Soj142 % HbA1c 80947-3 6.7 % 11/15/2014 %Hba1C Jdf148 Gluc Ave 146 mg/dL 11/15/2014 Comp Metabolic Qsa357 NA 134 mEq/L 11/15/2014 Comp Metabolic Eex092 K 4.5 mEq/L 11/15/2014 Comp Metabolic Woe430 CL 101 mEq/L 11/15/2014 Comp Metabolic Zud136 CO2 27.0 mEq/L 11/15/2014 Comp Metabolic Owy941 AN ION GAP 11 11/15/2014 Comp Metabolic Eoh557 GL UCOSE 293 mg/dL 11/15/2014 Comp Metabolic Ssv495 Cr eat 0.7 mg/dL 11/15/2014 Comp Metabolic Ttg054 eG FR 87 ml/min/1.73m2 11/15 Comp Metabolic Rix124 BUN 20 mg/dL 11/15/2014 Comp Metabolic Nfv504 B/ C Ratio 29.4 Ratio 11/15/2014 Comp Metabolic Vgv177 CA LCIUM 9.0 mg/dL 11/15/2014 Comp Metabolic Cms001 AL K PHOS 67 U/L 11/15/2014 Comp Metabolic Obj388 T(SGOT) 17 U/L 11/15/2014 Comp Metabolic Uja773 AL T(SGPT) 10 U/L 11/15/2014 Comp Metabolic Rcm743 BI LI T 0.6 mg/dL 11/15/2014 Comp Metabolic Ycj741 AL BUMIN 4.0 g/dL 11/15/2014 Comp Metabolic Cya681 TP RO 6.0 g/dL 11/15/2014 Comp Metabolic Ojm477 GL OB 2.0 g/dL 11/15/2014 Comp Metabolic Iys599 A/ G Ratio 2.0 Ratio 11/15/2014 Comp Metabolic Ozu889 Os mo 282 mOsmo 11/15/2014 Review of Systems System Result Effective Dates Constitutional No recent illness 12/25/2017 Constitutional No [...] GLUC MONITOR CONT PH YS I&R CPT-4: 65744 09/16/2017 GLUCOSE MONITORING CONT CPT-4: 37238 07/16/2017 TRIAMCINOLONE ACET I [place] NOS CPT-4: J3301 06/14/2017 DRAIN/INJECT JOINT/B URSA CPT-4: 02973 03/26/2017 TRIAMCINOLONE ACET I [place] NOS CPT-4: J3301 03/26/2017 URINALYSIS NONAUTO W /O SCOPE CPT-4: 28975 01/16/2017 THER/PROPH/DIAG INJ SC/IM CPT-4: 41710 01/16/2017 ROCEPHIN, PER 250 MG CPT-4: J0696 01/16/2017 DESTRUCT PREMALG LESION CPT-4: 94655 10/16/2016 TRIAMCINOLONE ACET I [place] NOS CPT-4: J3301 09/27/2016 ROCEPHIN, PER 250 MG CPT-4: J0696 09/27/2016 PPPS, SUBSEQ VISIT CPT- 4: G0439 07/10/2016 THER/PROPH/DIAG INJ SC/IM CPT-4: 51581 07/09/2016 TRIAMCINOLONE ACET I [place] NOS CPT-4: J3301 07/09/2016 ROCEPHIN, PER 250 MG CPT-4: J0696 07/09/2016 ADMIN PNEUMOCOCCAL V ACCINE SNOMED CT: 68426345 CPT-4: G0009 02/15/2015 PNEUMOCOCCAL VACC 13 LIMA IM Formatting Model/CDA Sections, Assigned to SNOMED CT: 79721730 CPT-4: 65732Refqlta 02/15/2015 ADMIN INFLUENZA VIRU S VAC CPT-4: G0008 12/10/2014 FLU VACC 4 LIMA 3 YRS PLUS IM Formatting Model/CDA Sections, Assigned to SNOMED CT: 56952836 CPT-4: 84857Bbjqrwj 12/10/2014 Vital Signs Date Vital 12/25/2017 Blood Pressure 1: 140/52 Code: 8480-6 BMI: 24.0 Code: 65086-9 Heart Rate 1: 64 bpm Height: 5'2" Respiratory Rate: 18 bpm SpO2: 96% Weight: 131 lbs 11/22/2017 Blood Pressure 1: 128/54 Code: 8480-6 BMI: 23.4 Code: 15769-5 Heart Rate 1: 62 bpm Height: 5'2" SpO2: 97% Weight: 128 lbs 10/07/2017 Blood Pressure 1: 148/68 Code: 8480-6 BMI: 23.2 Code: 96023-2 Heart Rate 1: 68 bpm Height: 5'2" SpO2: 98% Weight: 127 lbs 09/16/2017 Blood Pressure 1: 134/80 Code: 8480-6 BMI: 22.5 Code: 15564-8 Heart Rate 1: 86 bpm Height: 5'2" SpO2: 98% Weight: 123 lbs 09/09/2017 Blood Pressure 1: 138/72 Code: 8480-6 Blood Pressure 1: 150/66 Code: 8480-6 BMI: 22.9 Code: 53354-9 Heart Rate 1: 81 bpm Height: 5'2" SpO2: 98% Weight: 125 lbs 07/16/2017 Blood Pressure 1: 144/68 Code: 8480-6 BMI: 21.9 Code: 31043-2 Heart Rate 1: 73 bpm Height: 5'2" SpO2: 98% Weight: 120 lbs 06/14/2017 Blood Pressure 1: 132/64 Code: 8480-6 BMI: 22.3 Code: 92602-9 Heart Rate 1: 77 bpm Height: 5'2" SpO2: 98% Temperature: 37.0 (C ) / 98.6 (F) Weight: 122 lbs 06/10/2017 Blood Pressure 1: 134/64 Code: 8480-6 BMI: 22.5 Code: 29142-1 Heart Rate 1: 78 bpm Height: 5'2" SpO2: 95% Weight: 123 lbs 05/13/2017 Blood Pressure 1: 140/66 Code: 8480-6 BMI: 21.6 Code: 43909-7 Heart Rate 1: 80 bpm Height: 5'2" SpO2: 98% Weight: 118 lbs 03/26/2017 Blood Pressure 1: 150/78 Code: 8480-6 BMI: 23.2 Code: 06814-5 Heart Rate 1: 73 bpm Height: 5'2" SpO2: 99% Weight: 127 lbs 02/19/2017 Blood Pressure 1: 126/64 Code: 8480-6 BMI: 22.9 Code: 22774-9 Heart Rate 1: 74 bpm Height: 5'2" SpO2: 99% Weight: 125 lbs 01/16/2017 Blood Pressure 1: 136/68 Code: 8480-6 Heart Rate 1: 97 bpm Height: 5'2" Respiratory Rate: 16 bpm Temperature: 37.5 (C ) / 99.5 (F) Weight: 01/08/2017 Blood Pressure 1: 144/60 Code: 8480-6 BMI: 23.0 Code: 71498-9 Heart Rate 1: 71 bpm Height: 5'2" SpO2: 96% Weight: 126 lbs 11/21/2016 Blood Pressure 1: 150/62 Code: 8480-6 BMI: 23.2 Code: 96419-1 Heart Rate 1: 73 bpm Height: 5'2" SpO2: 94% Weight: 127 lbs 10/16/2016 Blood Pressure 1: 142/82 Code: 8480-6 BMI: 22.9 Code: 40576-4 Heart Rate 1: 80 bpm Height: 5'2" SpO2: 96% Weight: 125 lbs 10/08/2016 Blood Pressure 1: 150/72 Code: 8480-6 Heart Rate 1: 65 bpm Height: 5'2" SpO2: 98% 10/01/2016 Blood Pressure 1: 152/76 Code: 8480-6 Heart Rate 1: 69 bpm Height: 5'2" SpO2: 97% 09/27/2016 Blood Pressure 1: 122/64 Code: 8480-6 BMI: 23.3 Code: 41933-8 Heart Rate 1: 80 bpm Height: 5'2" SpO2: 98% Weight: 127 lbs 8 oz 07/19/2016 Blood Pressure 1: 118/68 Code: 8480-6 BMI: 23.0 Code: 41839-2 Heart Rate 1: 62 bpm Height: 5'2" SpO2: 97% Weight: 126 lbs 07/10/2016 Blood Pressure 1: 132/64 Code: 8480-6 BMI: 23.4 Code: 62520-9 Heart Rate 1: 82 bpm Height: 5'2" SpO2: 98% Waist Measure (cm): 76 cm Weight: 128 lbs 07/09/2016 Blood Pressure 1: 132/64 Code: 8480-6 BMI: 23.4 Code: 45397-7 Heart Rate 1: 82 bpm Height: 5'2" SpO2: 98% Temperature: 37.2 (C ) / 98.9 (F) Weight: 128 lbs 06/06/2016 Blood Pressure 1: 144/66 Code: 8480-6 BMI: 23.4 Code: 04076-9 Heart Rate 1: 77 bpm Height: 5'2" SpO2: 97% Weight: 128 lbs 04/03/2016 Blood Pressure 1: 164/70 Code: 8480-6 BMI: 24.5 Code: 52169-6 Heart Rate 1: 80 bpm Height: 5'2" SpO2: 98% Weight: 134 lbs 12/26/2015 Blood Pressure 1: 130/72 Code: 8480-6 BMI: 24.1 Code: 27001-8 Heart Rate 1: 63 bpm Height: 5'2" SpO2: 98% Weight: 132 lbs 09/19/2015 Blood Pressure 1: 140/68 Code: 8480-6 BMI: 24.2 Code: 59728-8 Heart Rate 1: 96 bpm Height: 5'2" SpO2: 98% Weight: 132 lbs 8 oz 07/19/2015 Blood Pressure 1: 128/64 Code: 8480-6 BMI: 24.2 Code: 62385-7 Heart Rate 1: 66 bpm Height: 5'2" SpO2: 98% Weight: 132 lbs 8 oz 03/22/2015 Blood Pressure 1: 128/60 Code: 8480-6 BMI: 24.0 Code: 40625-6 Heart Rate 1: 57 bpm Height: 5'2" SpO2: 98% Weight: 131 lbs 02/15/2015 Blood Pressure 1: 132/56 Code: 8480-6 BMI: 23.8 Code: 68185-8 Heart Rate 1: 70 bpm Height: 5'2" SpO2: 98% Weight: 130 lbs 11/15/2014 Blood Pressure 1: 120/78 Code: 8480-6 BMI: 24.1 Code: 97174-7 Heart Rate 1: 79 bpm Height: 5'2" SpO2: 98% Weight: 132 lbs 08/13/2014 Blood Pressure 1: 140/60 Code: 8480-6 BMI: 24.0 Code: 86182-9 Heart Rate 1: 74 bpm Height: 5'2" Weight: 131 lbs Functional Status No Functional Status data History of Present Illness Symptom Name Status Resu lt Effective Date Notes diarrhea Frequency of Episodes 6-8 stools per [...] Encounters Encounter Performer Loca tion Codes Date ([id number]) 01152 EST. P ATIENT, LEVEL IV Diagnosis: Type 2 diabetes mellitus with hyperglycemia[ICD10: E11.65] Diagnosis: Essential (primary) hypertension[ICD10: I10] Diagnosis: Localized edema[ICD10: R60.0] Dominique Recinos MD, [facility] CPT-4: 55591 12/25/2017 [id number]) 47526 EST. P ATIENT, LEVEL IV Diagnosis: Diverticulitis of large intestine without perforation or abscess without bleeding[ICD10: K57.32] Diagnosis: Nausea[ICD10: R11.0] [facility] CPT-4: 15381 11/22/2017 ([id number]) Miscellaneou s no charge Diagnosis: Laceration without foreign body of right forearm, subsequent encounter[ICD10: S51.811D] [facility] CPT-4: 74284 10/16/2017 ([id number]) Miscellaneou s no charge Diagnosis: Laceration without foreign body of right forearm, subsequent encounter[ICD10: S51.811D] Dominique Recinos MD [facility] CPT-4: 90314 10/14/2017 ([id number]) Miscellaneou s no charge Diagnosis: Laceration without foreign body of right forearm, subsequent encounter[ICD10: S51.811D] Dominique Recinos MD [facility] CPT-4: 50573 10/09/2017 ([id number]) 35276 EST. P ATIENT, LEVEL III Diagnosis: Type 2 diabetes mellitus with hyperglycemia[ICD10: E11.65] Dominique Recinos MD, [facility] CPT-4: 33753 10/07/2017 ([id number]) 64677 EST. P ATIENT, LEVEL III Diagnosis: Type 2 diabetes mellitus with hyperglycemia[ICD10: E11.65] Fatmata Recinos MD, [facility] CPT-4: 08530 09/16/2017 ([id number]) 24659 EST. P ATIENT, LEVEL III Diagnosis: Essential (primary) hypertension[ICD10: I10] Dominique Recinos MD[facility] CPT-4: 00448 09/09/2017 ([id number]) Miscellaneou s no charge Diagnosis: Type 1 diabetes mellitus without complications[ICD10: E10.9] Fatmata Recinos MD, [facility] CPT-4: 19740 07/22/2017 ([id number]) 43293 EST. P ATIENT, LEVEL IV Diagnosis: Type 1 diabetes mellitus without complications[ICD10: E10.9] Diagnosis: Mixed hyperlipidemia[ICD10: E78.2] Diagnosis: Essential (primary) hypertension[ICD10: I10] Dominique Recinos MD[facility] CPT-4: 19346 07/16/2017 ([id number]) 96175 EST. P ATIENT, LEVEL III Diagnosis: Cough[ICD10: R05] Diagnosis: Acute recurrent maxillary sinusitis[ICD10: J01.01] Maile Recinos MD, [facility] CPT-4: 68503 06/14/2017 ([id number]) 03153 EST. P ATIENT, LEVEL IV Diagnosis: Type 1 diabetes mellitus without complications[ICD10: E10.9] Diagnosis: Essential (primary) hypertension[ICD10: I10] Dominique Recinos MD, [facility] CPT-4: 27303 06/10/2017 ([id number]) 10783 EST. P ATIENT, LEVEL IV Diagnosis: Essential (primary) hypertension[ICD10: I10] Diagnosis: Type 1 diabetes mellitus without complications[ICD10: E10.9] Dominique Recinos MD, [facility] CPT-4: 96210 05/13/2017 44849 EST. PATIENT, LEVEL III Diagnosis: Sciatica, right side[ICD10: M54.31] Diagnosis: Low back pain[ICD10: M54.5] Fatmata Recinos MD, [facility] CPT-4: 01579 03/26/2017 ([id number]) 60233 EST. P ATIENT, LEVEL III Diagnosis: Type 1 diabetes mellitus without complications[ICD10: E10.9] Diagnosis: Essential (primary) hypertension[ICD10: I10] Dominique Recinos MD, [facility] CPT-4: 71142 02/19/2017 ([id number]) 47042 EST. P ATIENT, LEVEL IV Diagnosis: Fever presenting with conditions classified elsewhere[ICD10: R50.81] Diagnosis: Weakness[ICD10: R53.1] Diagnosis: Frequency of micturition[ICD10: R35.0] Diagnosis: Type 1 diabetes mellitus without complications[ICD10: E10.9] Dominique Recinos MD, [facility] CPT-4: 44503 01/16/2017 ([id number]) 45131 EST. P ATIENT, LEVEL IV Diagnosis: Type 1 diabetes mellitus without complications[ICD10: E10.9] Diagnosis: Essential (primary) hypertension[ICD10: I10] Dominique Recinos MD[facility] CPT-4: 33288 01/08/2017 ([id number]) 43960 EST. P ATIENT, LEVEL IV Diagnosis: Essential (primary) hypertension[ICD10: I10] Diagnosis: Type 1 diabetes mellitus without complications[ICD10: E10.9] Dominique Recinos MD, [facility] CPT-4: 97203 11/21/2016 ([id number]) 09827 EST. 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 P ATIENT, LEVEL III Diagnosis: Chronic obstructive pulmonary disease with (acute) exacerbation[ICD10: J44.1] Diagnosis: Cough[ICD10: R05] [facility] CPT-4: 20976 10/08/2016 ([id number]) Miscellaneou s no charge Diagnosis: Cough[ICD10: R05] Diagnosis: Chronic obstructive pulmonary disease with (acute) exacerbation[ICD10: J44.1] Maile Recinos MD, [facility] CPT-4: 94270 10/01/2016 ([id number]) 83495 EST. P ATIENT, LEVEL III Diagnosis: Cough[ICD10: R05] Diagnosis: Acute bronchitis, unspecified[ICD10: J20.9] [facility] CPT-4: 57533 09/27/2016 ([id number]) 23001 EST. P ATIENT, LEVEL III Diagnosis: Type 1 diabetes mellitus without complications[ICD10: E10.9] Dominique Recinos MD, [facility] CPT-4: 02832 07/19/2016 ([id number]) 59008 EST. P ATIENT, LEVEL IV Diagnosis: Essential (primary) hypertension[ICD10: I10] Diagnosis: Type 1 diabetes mellitus without complications[ICD10: E10.9] Diagnosis: Other allergic rhinitis[ICD10: J30.89] Diagnosis: Acute laryngopharyngitis[ICD10: J06.0] Dominique Recinos MD, [facility] CPT-4: 92344 07/09/2016 ([id number]) 73445 EST. P ATIENT, LEVEL IV Diagnosis: Essential (primary) hypertension[ICD10: I10] Diagnosis: Type 1 diabetes mellitus without complications[ICD10: E10.9] Diagnosis: Mixed hyperlipidemia[ICD10: E78.2] Dominique Recinos MD, [facility] CPT- 4: 40221 06/06/2016 52158 EST. PATIENT, LEVEL III Diagnosis: Other allergic rhinitis[ICD10: J30.89] Diagnosis: Acute laryngopharyngitis[ICD10: J06.0] Fatmata Recinos MD, [facility] CPT-4: 27628 04/03/2016 ([id number]) 54440 EST. P ATIENT, LEVEL IV Diagnosis: Type 1 diabetes mellitus without complications[ICD10: E10.9] Diagnosis: Essential (primary) hypertension[ICD10: I10] Diagnosis: Pain in right hand[ICD10: M79.641] Dominique Recinos MD, [facility] CPT- 4: 37806 12/26/2015 ([id number]) 21898 EST. P ATIENT, LEVEL IV Diagnosis: Type 1 diabetes mellitus without complications[ICD10: E10.9] Diagnosis: Essential (primary) hypertension[ICD10: I10] Dominique Recinos MD, [facility] CPT-4: 69752 09/19/2015 ([id number]) 65798 EST. P ATIENT, LEVEL IV Diagnosis: Essential (primary) hypertension[ICD10: I10] Diagnosis: Mixed hyperlipidemia[ICD10: E78.2] Diagnosis: Type 1 diabetes mellitus without complications[ICD10: E10.9] Dominique Recinos MD, [facility] CPT-4: 40900 07/19/2015 ([id number]) 21564 EST. P ATIENT, LEVEL IV Diagnosis: Other specified dorsopathies, lumbar region[ICD10: M53.86] Diagnosis: Urge incontinence[ICD10: N39.41] Diagnosis: Type 1 diabetes mellitus without complications[ICD10: E10.9] Dominique Recinos MD, [facility] CPT-4: 27535 03/22/2015 ([id number]) 13616 EST. P ATIENT, LEVEL IV Diagnosis: Essential (primary) hypertension[ICD10: I10] Diagnosis: Other specified dorsopathies, lumbar region[ICD10: M53.86] Diagnosis: Other chronic pain[ICD10: G89.29] Dominique Recinos MD, [facility] CPT-4: 39819 02/15/2015 ([id number]) 39473 EST. [facility] Diagnosis: ESSENTIAL HYPERTENSION[ICD9: 401.9] Diagnosis: DIABETES TYPE II[ICD9: 250.00] Diagnosis: FALL FROM LADDER[ICD9: E881.0] Diagnosis: Right hip pain[ICD9: 719.45] Diagnosis: Left hand pain[ICD9: 729.5] Diagnosis: Sacroiliac joint pain[ICD9: 724.6] [facility] CPT- 4: 18832 11/15/2014 ([id number]) OFFICE [facility] - LEVEL 4 Diagnosis: DIABETES TYPE II[ICD9: 250.00] Diagnosis: ESSENTIAL HYPERTENSION[ICD9: 401.9] Diagnosis: HYPERLIPIDEMIA[ICD9: 272.4] [facility] CPT-4: 85779 08/13/2014 Plan of Care Planned Activity Notes C odes Status Date Visit Plan: Diabetes Mellitus -fair ly well [...] while seated. 12/25/2017 Appointment: Dominique Recinos WPtel: [facility] (15 min) Moderate 12/25/2017 Patient Education: Patient Medication Summary Completed 12/25/2017 Patient Education: Diabetes Completed 12/25/2017 Appointment: Dominique Recinos WPtel: [facility] (15 min) Moderate 12/09/2017 Visit Plan: Diverticulitis - rx for antibiotic sent to pt's pharmacy - pt advised to avoid seeds, nuts, popcorn, or any other food which has been proven to upset the pt's stomach. 11/22/2017 Appointment: Maile Randolph WPtel: [phone] [facility] (15 min) Moderate 11/22/2017 Patient Education: Patient [...] blood glucose. 10/07/2017 Appointment: [facility] Recinos [facility]Ptel[facility] [address] [facility] (15 min) Moderate 10/07/2017 Patient [...] control. 09/16/2017 Appointment: Fatmata Spann WPtel: [phone] [facility] (15 min) Moderate 09/16/2017 Patient Education: Patient [...] home. 09/09/2017 Appointment: Dominique Recinos WPtel: [phone] [facility] [place] (15 min) Moderate 09/09/2017 Patient Education: Patient Medication Summary Completed 09/09/2017 [facility]ment[phone] [facility] [place] (15 min) Moderate 09/06/2017 Appointment: Dominique Recinos WPtel: [phone] [facility] [place] (15 min) Moderate 09/05/2017 Appointment: Fatmata Spann WPtel: [phone] [facility] [place] (15 min) Moderate 07/22/2017 Patient Education: [...] less controlled. ipro placed today - by OCCUPATIONAL THERAPY TECHNICIAN - pt to RTC on Saturday for [...] less controlled. ipro placed today - by OCCUPATIONAL THERAPY TECHNICIAN - pt to RTC on Saturday for [...] medications. 07/16/2017 Appointment: [facility]Ptel[facility] [phone] [facility] (15 min) Moderate 07/16/2017 Patient Education: Patient Medication Summary Completed 07/16/2017 Visit Plan: Sinusitis - Pt has acut e infection - pain in face, maxillary region, Pt informed to use decongestant, RX given to patient, sinus rinses also recommended. Call if symptoms do not show improvement. 06/14/2017 Appointment: Maile Randolph WPtel: [phone] [phone] (30 min) Complex 06/14/2017 Patient Education: Patient [...] at home. 06/10/2017 Appointment: Dominique Recinos WPtel: [facility]6 [facility] (15 min) Moderate 06/10/2017 Patient Education: Patient Medication Summary Completed 06/10/2017 Appointment: Fatmata Spann WPtel: [facility]5 [facility] (30 min) Complex 06/03/2017 Visit Plan: Hypertension [...] controlled. 05/13/2017 Appointment: Dominique Recinos WPtel: [phone] [facility] [place] (15 min) Moderate 05/13/2017 Patient Education: Patient Medication Summary Completed 05/13/2017 Appointment: Domin[facility]inos [facility]Ptel[facility] [phone] [facility] [place] (30 min) Complex 05/03/2017 App[facility]ment: [facility]ann [facility]el[phone] [facility] [place] (15 min) Moderate 04/12/2017 Appointment: Domin[facility] Recinos WPtel[facility] [phone] [facility] [place] (15 min) Moderate 04/11/2017 Appointment: Dominique Rceinos WPtel[facility] [phone] [facility] [place] (15 min) Moderate 04/10/2017 Appointment: [facility] Recinos WPtel[facility] [phone] [facility] [place] (15 min) Moderate 04/02/2017 Visit [...] injection. 03/26/2017 Appointment: Fatmata Spann [facility]Ptel[facility] [phone] [facility] [place] (30 min) Complex 03/26/2017 Appointment: Dominique Recinos WPtel[facility] [phone] [facility] [place] (15 min) Moderate 03/26/2017 Patient [...] pressure readings at home. 02/19/2017 Appointment: Dominique Recions WPtel: [facility] (15 min) Moderate 02/19/2017 Patient Education: Patient Medication Summary Completed 02/19/2017 Patient Education: Hypertension Completed 02/19/2017 Appointment: Dominique Recinos WPtel: [facility] (15 min) Moderate 02/12/2017 Visit [...] above 100F. 01/16/2017 Appointment: Dominique Recinos WPtel: [facility] (15 min) Moderate 01/16/2017 Patient Education: [...] at home. 01/08/2017 Appointment: Dominique Recinos WPtel: [phone] [facility] [place] (15 min) Moderate 01/08/2017 Patient Education: Patient Medication Summary Completed 01/08/2017 Patient Education: Hypertension Completed 01/08/2017 Appointment: Dominique Recinos WPtel: [phone] [facility] [place] (15 min) Moderate 12/31/2016 Appointment: Dominique Recinos WPtel: [phone] [facility] [place] (15 min) Moderate 12/18/2016 Visit Plan: [...] less controlled. 11/21/2016 Appointment: Dominique Recinos WPtel: [phone] [facility] [place] (15 min) Moderate 11/21/2016 Patient Education: [...] potatoes, creamy coleslaw, etc. -- referral to process laboratory specialist. Hyperlipidemia - pt has been counseled [...] until healed 10/16/2016 Appointment: Domin[facility] Recinos WPtel[facility] [phone] [facility] (15 min) Moderate 10/16/2016 Patient Education: Patient Medication Summary Completed 10/16/2016 Patient Education: Hypertension Completed 10/16/2016 Patient Education: Patient Medication Summary Completed 10/09/2016 Care Plan: Free T4 Pending 10/09/2016 Visit Plan: COPD exacerbation-cough -symptoms resolved-call if symptoms return-monitor blood sugars closely for the next few days and discussed diet. 10/08/2016 Appointment: Maile Randolph WPtel: [facility] (15 min) Moderate 10/08/2016 Patient Education: Patient Medication Summary Completed 10/08/2016 Visit Plan: COPD EXACERBATION - PHYSICIAN SCRIBE D is a chronic problem for this [...] acute changes. 10/01/2016 Appointment: Maile Randolph WPtel: [phone] (30 min) Complex 10/01/2016 Patient Education: Patient Medication Summary Completed 10/01/2016 Visit Plan: Bronchitis - acute case of bronchitis identified. Pt has been given antibiotics, breathing treatments as appropriate, and pt has been instructed to call if symptoms are not improved, or if symptoms acutely worsen. 09/27/2016 Appointment: Maile Randolph WPtel: [phone] [facility] (30 min) Complex 09/27/2016 Patient Education: Patient [...] less controlled. 07/19/2016 Appointment: Domin[facility] Recinos WPtel: [phone] [facility] (15 min) Moderate 07/19/2016 Patient Education: [...] care surrogate. 07/10/2016 Appointment: Fatmata Spann WPtel: [facility] [facility] - Annual Wellness Visit [...] not improving 07/09/2016 Appointment: Dominique Recinos WPtel: [phone] [facility] (15 min) Moderate 07/09/2016 Patient Education: Patient Medication Summary Completed 07/09/2016 Patient Education: Hypertension Completed 07/09/2016 Appointment: Dominique Recinos WPtel: [phone] [facility] (15 min) Moderate 06/26/2016 Visit Plan: [...] me dications. 06/06/2016 Appointment: Domin[facility] Recinos WPtel[facility] [phone] [facility] [place] (15 min) Moderate 06/06/2016 Patient Education: Patient Medication Summary Completed 06/06/2016 Appointment: Dominique Recinos WPtel: [address] [facility] (15 min) Moderate 04/30/2016 Visit Plan: URI [...] allergy spray. 04/03/2016 Appointment: Fatmata Spann WPtel: [facility] (30 min) Complex 04/03/2016 Patient Education: Patient [...] Completed 12/26/2015 Appointment: Dominique Recinos WPtel: [phone] [facility] (15 min) Moderate 12/19/2015 Visit Plan: [...] home. 09/19/2015 Appointment: Dominique Recinos WPtel: [phone] [facility] (15 min) Moderate 09/19/2015 Patient Education: Patient [...] dications. 07/19/2015 Appointment: Dominique Recinos WPtel: [phone] [facility] (15 min) Moderate 07/19/2015 Patient Education: Patient [...] q10. Back pain - referral to [facility] therapy for further eval and treat. 03/22/2015 Appointment: Dominique Recinos WPtel: [address] [facility] (15 min) Moderate 03/22/2015 Patient Education: Patient Medication Summary Completed 03/22/2015 Care Plan: Referral Order SNOMED-CT : [id number] Ordered 03/22/2015 Visit Plan: Hypertension - well [...] dications. 08/13/2014 Appointment: Dominique Recinos WPtel: [phone] [facility] [place] ([place] New Patient 08/13/2014 Patient Education: Patient Medication Summary Completed 08/13/2014 Patient Education: Hypertension Completed 08/13/2014 Referral: External, Ordering Provider Referral Appointment Requested Instructions Comment . Hypertension - wel l controlled - [...] of injection. . URI - Pt advised t o [...] not improved, or if symptoms acutely worsen. Go back to taking yo ur benicar [...] refer Nathalia for diabetic education at [facility]. Increase the protein in your diet. Watch [...] potatoes, creamy coleslaw, etc. -- referral to process laboratory specialist. Hyperlipidemia - pt has been counseled [...] change in blood pressure readings at home. FLAGYL 500MG THREE T IMES DAILY X [...] change in blood pressure readings at home. increase lantus to 1 7 units daily [...] show improvement. two old goats - from [employer] and home . Hypertension - well controlled [...] assure normal liver response to medications. decrease Lantus to 7 units in the [...] car for a long car ride. . Medicare Exam - to day we [...] less controlled. ipro placed today - by OCCUPATIONAL THERAPY TECHNICIAN - pt to RTC on Saturday for [...] less controlled. ipro placed today - by OCCUPATIONAL THERAPY TECHNICIAN - pt to RTC on Saturday for [...] q10. Back pain - referral to [facility] therapy for further eval and treat. [...]
--- OUTSIDE RECORDS SUMMARY | 2019-06-14 17:21 | XMS REPORT | CCD ---
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 Role Phone PP Unavailable CCM Unavailable Summary Purpose Interface Exchange Insurance Providers Payer name Policy type / Coverage type Covered democrat ID Effective Begin Date Effective End Date WPS Medicare Part B Medicare Part B [id number] 2017 Unknown [facility] ica Part B [id number] Un known Family history Mother Diagnosis Age At Onset No Family Disease Entered N/A Father Diagnosis Age At Onset Heart Attack Unknown Diabetes Unknown Social History Social History Element Codes Description Effective Dates Number of children Unknown 2 Sons, 5 grandchildren, 11 great grandchildren 01/08/2017 Marital status Unknown W crystal [place] in 201606/06/[address]: 245027052 Never smoker 08/13/[address]: 486231661 Never drinks alcohol 08/13/2014 Allergies, Adverse Reactions, [...] Instruc tions Start Date Stop Date Sta s Fill Instructions gabapentin 100 mg ca psule RxNorm: 687013 TAKE ONE CAPSULE BY M OUTH THREE TIMES A DAY 04/09/2018 07/16/2018 Ac tive Novolog U-100 Insuli n aspart 100 unit/mL subcutaneous solution RxNorm: 473101 SSI 5 units over 150 and for every additional 50 add 2 units Unit(s) SQ TID adjust as needed for glucose control 12/25/2017 07/22/2018 Active Cipro 500 mg tablet RxNorm: 183572 1 Tablet(s) PO BID 11/22/2017 12/01/2017 Inactive clotrimazole 1 % top ical cream RxNorm: 557861 1 Application TOP BID 11/22/2017 12/05/2017 Inactive Flagyl 500 mg tablet RxNorm: 821965 1 Tablet(s) PO TID 11/22/2017 12/01/2017 Inactive Lantus U-100 Insulin 100 unit/mL subcutaneous solution RxNorm: 783317 17 Unit(s) SQ QAM 11/11/2017 07/08/2018 Active Novolog U-100 Insuli n aspart 100 unit/mL subcutaneous solution RxNorm: 868695 SSI 5 units over 150 and for every additional 50 add 2 units Unit(s) SQ TID adjust as needed for glucose control 11/11/2017 12/24/2017 Inactive gabapentin 100 mg ca psule RxNorm: 389079 TAKE ONE CAPSULE BY M OUTH THREE TIMES A DAY 11/05/2017 02/11/2018 Inactive Kenalog 40 mg/mL fanny pension for injection RxNorm: 1283576 1 Milliliter(s) Inj 06/14/2017 06/14/2017 In active Flonase Allergy Reli ef 50 mcg/actuation nasal spray,suspension RxNorm: 6928897 2 [place] NASAL daily 06/14/2017 06/20/2017 Inactive doxycycline hyclate 100 mg tablet RxNorm: 853569 1 Tablet(s) PO BID 06/14/2017 06/20/2017 Inactive Lantus U-100 Insulin 100 unit/mL subcutaneous solution RxNorm: 802746 17 Unit(s) SQ QAM 06/10/2017 07/09/2017 Inactive gabapentin 100 mg ca psule RxNorm: 811418 TAKE ONE CAPSULE BY M OUTH THREE TIMES A DAY 05/23/2017 08/29/2017 Inactive Lantus U-100 Insulin 100 unit/mL subcutaneous solution RxNorm: 899223 15 Unit(s) SQ QAM 05/14/2017 06/09/2017 Inactive Novolog U-100 Insuli n aspart 100 unit/mL subcutaneous solution RxNorm: 457883 SSI 5 units over 150 and for every additional 50 add 2 units Unit(s) SQ TID adjust as needed for glucose control 04/24/2017 11/10/2017 Inactive Zocor 20 mg tablet RxNorm: 478719 1 Tablet(s) PO daily 04/05/2017 03/30/2018 Inactive Kenalog 40 mg/mL fanny pension for injection RxNorm: 3163631 1 Milliliter(s) Inj 03/26/2017 03/26/2017 In active Novolog 100 unit/mL subcutaneous solution RxNorm: 082884 SSI 5 units over 150 and for every additional 50 add 2 units Unit(s) SQ TID adjust as needed for glucose control 02/19/2017 04/23/2017 Inactive Lantus 100 unit/mL s ubcutaneous solution RxNorm: 250375 10 Unit(s) SQ QAM 02/19/2017 05/13/2017 In active ceftriaxone 500 mg s olution for injection RxNorm: 9236324 Inj 01/16/2017 01/16/2017 Inactive Lantus 100 unit/mL s ubcutaneous solution RxNorm: 977511 7 Unit(s) SQ QAM 01/16/2017 02/18/2017 In active Lantus 100 unit/mL s ubcutaneous solution RxNorm: 531262 10 Unit(s) SQ daily 01/08/2017 05/12/2017 In active gabapentin 100 mg ca psule RxNorm: 725878 TAKE ONE CAPSULE BY M OUTH THREE TIMES A DAY 11/30/2016 02/03/2017 Inactive Zoloft 50 mg tablet RxNorm: 350626 TAKE ONE TABLET BY MOUTH DAILY 10/30/2016 04/27/2017 In active Zocor 20 mg tablet RxNorm: 230716 1 Tablet(s) PO daily 10/16/2016 04/04/2017 Inactive stop the 40mg dose of zocor, start on 20 mg Lantus 100 unit/mL s ubcutaneous solution RxNorm: 943114 15 Unit(s) SQ daily 10/16/2016 01/07/2017 In active Novolog 100 unit/mL subcutaneous solution RxNorm: 440881 SSI 5 units over 150 and for every additional 50 add 2 units Unit(s) SQ TID adjust as needed for glucose control 10/16/2016 02/18/2017 Inactive prednisone 20 mg tablet RxNorm: 185558 1 Tablet(s) PO BID 10/01/2016 10/05/2016 Inactive Kenalog 40 mg/mL fanny pension for injection RxNorm: 5374795 1 Milliliter(s) Inj 09/27/2016 09/27/2016 In active Zithromax Z-Kishor 250 mg tablet RxNorm: 679347 1 Tablet(s) PO UD 09/27/2016 10/01/2016 Inactive ceftriaxone 500 mg s olution for injection RxNorm: 5571729 1 Milliliter(s) Inj 09/27/2016 09/27/2016 In active Tessalon Perles 100 mg capsule RxNorm: 669685 1 Capsule(s) PO Q8 MS N as needed 09/22/2016 No Stop Date Active Augmentin 500 mg-125 mg tablet RxNorm: 664941 1 Tablet(s) PO BID 09/22/2016 09/26/2016 Inactive metoprolol tartrate 50 mg tablet RxNorm: 420486 TAKE ONE TABLET BY [facility] TWICE A DAY 08/02/2016 07/27/2017 Inactive Novolog 100 unit/mL subcutaneous solution RxNorm: 104979 10 Unit(s) SQ TID adj ust as needed for glucose control 07/19/2016 10/15/2016 Inactive Humalog 100 unit/mL subcutaneous solution RxNorm: 356628 INJECT 10 UNITS UNDER THE SKIN BEFORE EACH MEAL 07/16/2016 07/16/2016 Inactive Kenalog 40 mg/mL fanny pension for injection RxNorm: 1659186 1 Milliliter(s) Inj 07/09/2016 07/09/2016 In active ceftriaxone 500 mg s olution for injection RxNorm: 7674516 Inj 07/09/2016 07/09/2016 Inactive Lantus 100 unit/mL s ubcutaneous solution RxNorm: 165007 Unit(s) INJECT 13 UNI TS UNDER THE SKIN IN THE MORNING 06/06/2016 10/15/2016 Inactive Zoloft 50 mg tablet RxNorm: 935006 TAKE ONE TABLET BY MOUTH DAILY 04/27/2016 07/25/2016 In active Lantus 100 unit/mL s ubcutaneous solution RxNorm: 771124 INJECT 20 UNITS UNDER THE SKIN AT BEDTIME 04/27/2016 06/05/2016 Inactive amoxicillin 500 mg c apsule RxNorm: 735478 1 Capsule(s) PO TID 04/03/2016 04/12/2016 Inactive Zyrtec 10 mg tablet RxNorm: 7692862 1 Tablet(s) PO daily 04/03/2016 05/02/2016 Inactive hydrochlorothiazide 12.5 mg capsule RxNorm: 733481 TAKE ONE CAPSULE BY M OUTH DAILY 03/12/2016 12/06/2016 In active Benicar 40 mg tablet RxNorm: 678779 1 Tablet(s) PO daily 02/28/2016 04/27/2016 Inactive Benicar 40 mg tablet RxNorm: 488456 1 Tablet(s) PO daily 02/20/2016 02/27/2016 Inactive gabapentin 100 mg ca psule RxNorm: 606547 TAKE ONE CAPSULE BY M OUTH THREE TIMES A DAY 01/09/2016 04/16/2016 Inactive metoprolol tartrate 50 mg tablet RxNorm: 993241 TAKE ONE TABLET BY MO UTH TWICE A DAY 01/09/2016 04/07/2016 Inactive Humalog 100 unit/mL subcutaneous solution RxNorm: 229195 5-10 Unit(s) SQ AC 07/19/2015 07/18/2016 In active Lantus 100 unit/mL s ubcutaneous solution RxNorm: 684980 13 Unit(s) SQ QAM 07/19/2015 01/15/2017 In active Lantus 100 unit/mL s ubcutaneous solution RxNorm: 241457 20 Unit(s) SQ QHS 07/14/2015 07/18/2015 In active Zoloft 50 mg tablet RxNorm: 580195 1 Tablet(s) PO daily 05/19/2015 09/15/2015 Inactive Humalog 100 unit/mL subcutaneous solution RxNorm: 935626 10 Unit(s) SQ AC 05/11/2015 07/18/2015 In active metoprolol tartrate 50 mg tablet RxNorm: 516825 1 Tablet(s) PO BID 04/28/2015 08/25/2015 Inactive Lantus 100 unit/mL s ubcutaneous solution RxNorm: 415648 20 Unit(s) SQ QHS 04/28/2015 07/13/2015 In active Vesicare 10 mg tablet RxNorm: 117530 1 Tablet(s) PO QPM 03/22/2015 09/18/2015 Inactive hydrochlorothiazide 12.5 mg capsule RxNorm: 454351 1 Tablet(s) PO daily 01/04/2015 12/29/2015 In active gabapentin 100 mg ca psule RxNorm: 867803 1 Capsule(s) PO TID 11/29/2014 03/28/2015 Inactive [...] Date Active aspirin 81 mg tablet RxNorm: 243426 1 Tablet(s) PO daily No Start Date Active doxazosin 2 mg tablet RxNorm: 311307 1 Tablet(s) PO QHS No Start Date Active Fish Oil oral RxNorm: 2654883 oral No Start Date Active multivitamin capsule RxNorm: 1 Capsule(s) PO daily No Start Date Active Humalog 100 unit/mL subcutaneous solution RxNorm: 651379 Unit(s) SQ No Start Date 05/10/2015 Inactive Zoloft 50 mg tablet RxNorm: 267289 1 Tablet(s) PO daily No Start Date 05/18/2015 Inactive gabapentin 100 mg ca psule RxNorm: 148916 1 Capsule(s) PO daily No Start Date 11/28/2014 Inactive metoprolol tartrate 50 mg tablet RxNorm: 841583 1 Tablet(s) PO TID No Start Date 04/27/2015 Inactive Benicar 40 mg tablet RxNorm: 377748 1 Tablet(s) PO daily No Start Date 02/19/2016 Inactive hydrochlorothiazide 25 mg tablet RxNorm: 780079 1 Tablet(s) PO daily No Start Date 01/03/2015 Inactive Lantus 100 unit/mL s ubcutaneous solution RxNorm: 353277 13 Unit(s) SQ No Start Date 04/27/2015 Inactive Zocor 40 mg tablet RxNorm: 024047 1 Tablet(s) PO daily No Start Date 10/15/2016 Inactive Medication Administered Medication Codes Instruc tions Start Date Status Kenalog 40 mg/mL suspension for injection RxNorm: 7445693 1Milliliter 06/14/2017 N o longer Active Kenalog 40 mg/mL suspension for injection RxNorm: 8949024 1Milliliter 03/26/2017 N o longer Active ceftriaxone 500 mg solution for injection RxNorm: 6976085 01/16/2017 No longer A ctive Kenalog 40 mg/mL suspension for injection RxNorm: 5077986 1Milliliter 09/27/2016 N o longer Active ceftriaxone 500 mg solution for injection RxNorm: 2861054 1Milliliter 09/27/2016 N o longer Active ceftriaxone 500 mg solution for injection RxNorm: 4231683 07/09/2016 No longer A ctive Kenalog 40 mg/mL suspension for injection RxNorm: 4699039 1Milliliter 07/09/2016 N o longer Active Immunizations [...] Item Item Code Result Date Comp Metabolic Xsw704 NA 139 mEq/L 12/25/2017 Comp Metabolic Wnn769 K 4.1 mEq/L 12/25/2017 Comp Metabolic Ipv553 CL 104 mEq/L 12/25/2017 Comp Metabolic Cnz576 CO2 28.0 mEq/L 12/25/2017 Comp Metabolic Jlw854 AN ION GAP 11 12/25/2017 Comp Metabolic Ock716 GL UCOSE 129 mg/dL 12/25/2017 Comp Metabolic Lxj383 Cr eat 0.7 mg/dL 12/25/2017 Comp Metabolic Ttf148 eG FR 83 ml/min/1.73m2 12/25 Comp Metabolic Row670 BUN 22 mg/dL 12/25/2017 Comp Metabolic Sgv158 B/ C Ratio 31.0 Ratio 12/25/2017 Comp Metabolic Bdl744 CA LCIUM 9.4 mg/dL 12/25/2017 Comp Metabolic Plj571 AL K PHOS 70 U/L 12/25/2017 Comp Metabolic Kwl962 T(SGOT) 16 U/L 12/25/2017 Comp Metabolic Atn182 AL T(SGPT) 12 U/L 12/25/2017 Comp Metabolic Ixl258 BI LI T 0.5 mg/dL 12/25/2017 Comp Metabolic Izu512 AL BUMIN 4.2 g/dL 12/25/2017 Comp Metabolic Hrl519 TP RO 6.1 g/dL 12/25/2017 Comp Metabolic Bpb869 GL OB 1.9 g/dL 12/25/2017 Comp Metabolic Dtw930 A/ G Ratio 2.1 Ratio 12/25/2017 Comp Metabolic Ucf069 Os mo 283 mOsmo 12/25/2017 %Hba1C Krz696 % HbA1c 02741-5 7.1 % 12/25/2017 %Hba1C Ivi030 Gluc Ave 157 mg/dL 12/25/2017 %Hba1C Fqg918 % HbA1c 21983-9 8.0 % 05/13/2017 %Hba1C Nxc679 Gluc Ave 183 mg/dL 05/13/2017 Comp Metabolic Yaq623 NA 135 mEq/L 05/13/2017 Comp Metabolic Fje417 K 3.8 mEq/L 05/13/2017 Comp Metabolic Apu244 CL 99 mEq/L 05/13/2017 Comp Metabolic Mzv911 CO2 29.0 mEq/L 05/13/2017 Comp Metabolic Dqu236 AN ION GAP 11 05/13/2017 Comp Metabolic Fjd935 GL UCOSE 155 mg/dL 05/13/2017 Comp Metabolic Rep088 Cr eat 0.7 mg/dL 05/13/2017 Comp Metabolic Vrf943 eG FR 90 ml/min/1.73m2 05/13 Comp Metabolic Qnx009 BUN 18 mg/dL 05/13/2017 Comp Metabolic Yqc352 B/ C Ratio 27.3 Ratio 05/13/2017 Comp Metabolic Qlv987 CA LCIUM 8.9 mg/dL 05/13/2017 Comp Metabolic Cxi490 AL K PHOS 90 U/L 05/13/2017 Comp Metabolic Ceu453 T(SGOT) 18 U/L 05/13/2017 Comp Metabolic Jnh417 AL T(SGPT) 15 U/L 05/13/2017 Comp Metabolic Soz850 BI LI T 0.5 mg/dL 05/13/2017 Comp Metabolic Ojl300 AL BUMIN 4.0 g/dL 05/13/2017 Comp Metabolic Iil442 TP RO 5.9 g/dL 05/13/2017 Comp Metabolic Wex857 GL OB 1.9 g/dL 05/13/2017 Comp Metabolic Uxn090 A/ G Ratio 2.1 Ratio 05/13/2017 Comp Metabolic Pvb591 Os mo 275 mOsmo 05/13/2017 Urine Culture Ucult Comp lete NO Growth Day 2 01/18 Urine Culture Ucult Prel iminary NO Growth Day 1 01/18 Free T4 Mkd940 FREE T4 1.13 ng/dL 10/09/2016 %Hba1C Wez595 % HbA1c 63992-5 7.0 % 10/08/2016 %Hba1C Dxm505 Gluc Ave 154 mg/dL 10/08/2016 Lipid Ord30 CHOL 172 mg/dL 10/08/2016 Lipid Ord30 HDL 72.0 mg/dl 10/08/2016 Lipid Ord30 TRIG 72 mg/dL 10/08/2016 Lipid Ord30 LDL 86 mg/dL 10/08/2016 Lipid Ord30 C/HDL 2.4 Ratio 10/08/2016 Tsh Ord6 hTSH II 0.30 uIU/mL 10/08/2016 [...] 31.5 pg 10/08/2016 Cbc With Differential Ord2 [place]% 4.0 % 10/08/2016 Cbc With Differential Ord2 [...] 0.96 K/ul 10/08/2016 Cbc With Differential Ord2 [place] ABS# 0.4 K/ul 10/08/2016 Cbc With Differential Ord2 Eos ABS# 0.0 K/ul 10/08/2016 Cbc With Differential Ord2 Baso ABS# 0.0 K/ul 10/08/2016 Comp Metabolic Piu297 NA 135 mEq/L 10/08/2016 Comp Metabolic Izn697 K 4.3 mEq/L 10/08/2016 Comp Metabolic Wxc191 CL 98 mEq/L 10/08/2016 Comp Metabolic Rkr631 CO2 22.0 mEq/L 10/08/2016 Comp Metabolic Fox709 AN ION GAP 19 10/08/2016 Comp Metabolic Btr021 GL UCOSE 400 mg/dL 10/08/2016 Comp Metabolic Ebq758 Cr eat 0.7 mg/dL 10/08/2016 Comp Metabolic Cdb974 eG FR 79 ml/min/1.73m2 10/08 Comp Metabolic Cci800 BUN 27 mg/dL 10/08/2016 Comp Metabolic Uap728 B/ C Ratio 36.5 Ratio 10/08/2016 Comp Metabolic Hnx716 CA LCIUM 9.1 mg/dL 10/08/2016 Comp Metabolic Abw212 AL K PHOS 65 U/L 10/08/2016 Comp Metabolic Whm183 T(SGOT) 28 U/L 10/08/2016 Comp Metabolic Oqk956 AL T(SGPT) 24 U/L 10/08/2016 Comp Metabolic Mlp654 BI LI T 0.7 mg/dL 10/08/2016 Comp Metabolic Mgo745 AL BUMIN 3.8 g/dL 10/08/2016 Comp Metabolic Ncz086 TP RO 6.0 g/dL 10/08/2016 Comp Metabolic Ezw120 GL OB 2.2 g/dL 10/08/2016 Comp Metabolic Mti332 A/ G Ratio 1.7 Ratio 10/08/2016 Comp Metabolic Nqh447 Os mo 292 mOsmo 10/08/2016 Microalbumin Cxz491 Micr oAlb <0.7 mg/dL 10/08/2016 C A/B FLU Influenza A Scr TNP:Duplicate Order 0 04/03/2016 C A/B FLU Influenza B Scr TNP:Duplicate Order 0 04/03/2016 C A/B FLU IC OK? TNP:Duplicate Order 04/03/2016 C A/B FLU [id number] Influe nza A Scr Negative 04/03/2016 C A/B FLU [id number] Influe nza B Scr Negative 04/03/2016 Tsh Ord6 hTSH II 0.76 uIU/mL 09/15/2015 Comp Metabolic Stk081 NA 138 mEq/L 09/15/2015 Comp Metabolic Ldk097 K 4.4 mEq/L 09/15/2015 Comp Metabolic Rab569 CL 103 mEq/L 09/15/2015 Comp Metabolic Zoj433 CO2 29.0 mEq/L 09/15/2015 Comp Metabolic Ypf738 AN ION GAP 10 09/15/2015 Comp Metabolic Zeh195 GL UCOSE 156 mg/dL 09/15/2015 Comp Metabolic Ggx470 Cr eat 0.7 mg/dL 09/15/2015 Comp Metabolic Xjs839 eG FR 79 ml/min/1.73m2 09/14 Comp Metabolic Tdy910 BUN 23 mg/dL 09/15/2015 Comp Metabolic Szw589 B/ C Ratio 31.1 Ratio 09/15/2015 Comp Metabolic Lxa090 CA LCIUM 9.1 mg/dL 09/15/2015 Comp Metabolic Hlj506 AL K PHOS 58 U/L 09/15/2015 Comp Metabolic Uii117 T(SGOT) 19 U/L 09/15/2015 Comp Metabolic Azc454 AL T(SGPT) 11 U/L 09/15/2015 Comp Metabolic Oqk987 BI LI T 0.6 mg/dL 09/15/2015 Comp Metabolic Qmo977 AL BUMIN 3.9 g/dL 09/15/2015 Comp Metabolic Ezf252 TP RO 5.8 g/dL 09/15/2015 Comp Metabolic Dmk107 GL OB 1.9 g/dL 09/15/2015 Comp Metabolic Xre481 A/ G Ratio 2.1 Ratio 09/15/2015 Comp Metabolic Kjw197 Os mo 283 mOsmo 09/15/2015 Cbc With [...] 30.5 pg 09/15/2015 Cbc With Differential Ord2 [place]% 10.2 % 09/15/2015 Cbc With Differential Ord2 [...] 0.86 K/ul 09/15/2015 Cbc With Differential Ord2 [place] ABS# 0.5 K/ul 09/15/2015 Cbc With Differential Ord2 Eos ABS# 0.1 K/ul 09/15/2015 Cbc With Differential Ord2 Baso ABS# 0.0 K/ul 09/15/2015 Lipid Ord30 CHOL 139 mg/dL 09/15/2015 Lipid Ord30 HDL 57.0 mg/dl 09/15/2015 Lipid Ord30 TRIG 76 mg/dL 09/15/2015 Lipid Ord30 LDL 67 mg/dL 09/15/2015 Lipid Ord30 C/HDL 2.4 Ratio 09/15/2015 %Hba1C Xed808 % HbA1c 58082-8 6.6 % 09/15/2015 %Hba1C Okf598 Gluc Ave 143 mg/dL 09/15/2015 %Hba1C Edd216 % HbA1c 92634-9 6.5 % 06/02/2015 %Hba1C Krl085 Gluc Ave 140 mg/dL 06/02/2015 Comp Metabolic Yug438 NA 139 mEq/L 06/02/2015 Comp Metabolic Cre185 K 4.5 mEq/L 06/02/2015 Comp Metabolic Heg015 CL 104 mEq/L 06/02/2015 Comp Metabolic Kic415 CO2 25.0 mEq/L 06/02/2015 Comp Metabolic Isi122 AN ION GAP 15 06/02/2015 Comp Metabolic Zlq581 GL UCOSE 123 mg/dL 06/02/2015 Comp Metabolic Vkz821 Cr eat 0.7 mg/dL 06/02/2015 Comp Metabolic Tbv343 eG FR 92 ml/min/1.73m2 06/01 Comp Metabolic Qye297 BUN 21 mg/dL 06/02/2015 Comp Metabolic Vez454 B/ C Ratio 32.3 Ratio 06/02/2015 Comp Metabolic Dvz530 CA LCIUM 9.5 mg/dL 06/02/2015 Comp Metabolic Bps767 AL K PHOS 66 U/L 06/02/2015 Comp Metabolic Oas712 T(SGOT) 19 U/L 06/02/2015 Comp Metabolic Nzj848 AL T(SGPT) 13 U/L 06/02/2015 Comp Metabolic Kvv453 BI LI T 0.5 mg/dL 06/02/2015 Comp Metabolic Bvc811 AL BUMIN 4.0 g/dL 06/02/2015 Comp Metabolic Pzs288 TP RO 6.3 g/dL 06/02/2015 Comp Metabolic Cgz778 GL OB 2.3 g/dL 06/02/2015 Comp Metabolic Nkj723 A/ G Ratio 1.7 Ratio 06/02/2015 Comp Metabolic Fsn307 Os mo 282 mOsmo 06/02/2015 Tsh Ord6 hTSH II 0.68 uIU/mL 06/02/2015 Comp Metabolic Ufy160 NA 133 mEq/L 02/17/2015 Comp Metabolic Uoq833 K 4.3 mEq/L 02/17/2015 Comp Metabolic Ylj194 CL 99 mEq/L 02/17/2015 Comp Metabolic Zrl753 CO2 27.0 mEq/L 02/17/2015 Comp Metabolic Zxx574 AN ION GAP 11 02/17/2015 Comp Metabolic Koq069 GL UCOSE 239 mg/dL 02/17/2015 Comp Metabolic Vcg614 Cr eat 0.7 mg/dL 02/17/2015 Comp Metabolic Kej267 eG FR 79 ml/min/1.73m2 02/17 Comp Metabolic Gih825 BUN 24 mg/dL 02/17/2015 Comp Metabolic Uwv043 B/ C Ratio 32.4 Ratio 02/17/2015 Comp Metabolic Dvk482 CA LCIUM 9.1 mg/dL 02/17/2015 Comp Metabolic Xhp901 AL K PHOS 75 U/L 02/17/2015 Comp Metabolic Ocf508 T(SGOT) 18 U/L 02/17/2015 Comp Metabolic Lld751 AL T(SGPT) 11 U/L 02/17/2015 Comp Metabolic Pas288 BI LI T 0.6 mg/dL 02/17/2015 Comp Metabolic Scu411 AL BUMIN 4.2 g/dL 02/17/2015 Comp Metabolic Tyd667 TP RO 6.2 g/dL 02/17/2015 Comp Metabolic Vjv723 GL OB 2.0 g/dL 02/17/2015 Comp Metabolic Iar378 A/ G Ratio 2.1 Ratio 02/17/2015 Comp Metabolic Zlc693 Os mo 278 mOsmo 02/17/2015 %Hba1C Fas400 % HbA1c 35266-8 6.7 % 02/17/2015 %Hba1C Bqh938 Gluc Ave 146 mg/dL 02/17/2015 Comp Metabolic Gfm378 NA 134 mEq/L 11/15/2014 Comp Metabolic Ltc059 K 4.5 mEq/L 11/15/2014 Comp Metabolic Qmd966 CL 101 mEq/L 11/15/2014 Comp Metabolic Ztv744 CO2 27.0 mEq/L 11/15/2014 Comp Metabolic Vwa775 AN ION GAP 11 11/15/2014 Comp Metabolic Wtc602 GL UCOSE 293 mg/dL 11/15/2014 Comp Metabolic Irh380 Cr eat 0.7 mg/dL 11/15/2014 Comp Metabolic Loz706 eG FR 87 ml/min/1.73m2 11/15 Comp Metabolic Qwi246 BUN 20 mg/dL 11/15/2014 Comp Metabolic Krg799 B/ C Ratio 29.4 Ratio 11/15/2014 Comp Metabolic Ngd945 CA LCIUM 9.0 mg/dL 11/15/2014 Comp Metabolic Jty531 AL K PHOS 67 U/L 11/15/2014 Comp Metabolic Ooe504 T(SGOT) 17 U/L 11/15/2014 Comp Metabolic Uef301 AL T(SGPT) 10 U/L 11/15/2014 Comp Metabolic Xdw072 BI LI T 0.6 mg/dL 11/15/2014 Comp Metabolic Tom716 AL BUMIN 4.0 g/dL 11/15/2014 Comp Metabolic Dzo471 TP RO 6.0 g/dL 11/15/2014 Comp Metabolic Pua507 GL OB 2.0 g/dL 11/15/2014 Comp Metabolic Oqm291 A/ G Ratio 2.0 Ratio 11/15/2014 Comp Metabolic Fcf202 Os mo 282 mOsmo 11/15/2014 %Hba1C Jrh552 % HbA1c 63787-0 6.7 % 11/15/2014 %Hba1C Nkt058 Gluc Ave 146 mg/dL 11/15/2014 Review of [...] clear 07/19/2016 None Full Exam - General 1995 Ears/Nose/Throat [...] GLUC MONITOR CONT PH YS I&R CPT-4: 35410 09/16/2017 GLUCOSE MONITORING CONT CPT-4: 51372 07/16/2017 TRIAMCINOLONE ACET I [place] NOS CPT-4: J3301 06/14/2017 DRAIN/INJECT JOINT/B URSA CPT-4: 54301 03/26/2017 TRIAMCINOLONE ACET I [place] NOS CPT-4: J3301 03/26/2017 URINALYSIS NONAUTO W /O SCOPE CPT-4: 58619 01/16/2017 THER/PROPH/DIAG INJ SC/IM CPT-4: 70817 01/16/2017 ROCEPHIN, PER 250 MG CPT-4: J0696 01/16/2017 DESTRUCT PREMALG LESION CPT-4: 72015 10/16/2016 TRIAMCINOLONE ACET I [place] NOS CPT-4: J3301 09/27/2016 ROCEPHIN, PER 250 MG CPT-4: J0696 09/27/2016 PPPS, SUBSEQ VISIT CPT- 4: G0439 07/10/2016 THER/PROPH/DIAG INJ SC/IM CPT-4: 34962 07/09/2016 TRIAMCINOLONE ACET I [place] NOS CPT-4: J3301 07/09/2016 ROCEPHIN, PER 250 MG CPT-4: J0696 07/09/2016 ADMIN PNEUMOCOCCAL V ACCINE SNOMED CT: 72435890 CPT-4: G0009 02/15/2015 PNEUMOCOCCAL VACC 13 LIMA IM Formatting Model/CDA Sections, Assigned to SNOMED CT: 23775255 CPT-4: 01658Cbdtdmz 02/15/2015 ADMIN INFLUENZA VIRU S VAC CPT-4: G0008 12/10/2014 FLU VACC 4 LIMA 3 YRS PLUS IM Formatting Model/CDA Sections, Assigned to SNOMED CT: 56164572 CPT-4: 64557Tmcjhxi 12/10/2014 Vital Signs Date Vital 12/25/2017 Blood Pressure 1: 140/52 Code: 8480-6 BMI: 24.0 Code: 43610-0 Heart Rate 1: 64 bpm Height: 5'2" Respiratory Rate: 18 bpm SpO2: 96% Weight: 131 lbs 11/22/2017 Blood Pressure 1: 128/54 Code: 8480-6 BMI: 23.4 Code: 49604-9 Heart Rate 1: 62 bpm Height: 5'2" SpO2: 97% Weight: 128 lbs 10/07/2017 Blood Pressure 1: 148/68 Code: 8480-6 BMI: 23.2 Code: 05716-2 Heart Rate 1: 68 bpm Height: 5'2" SpO2: 98% Weight: 127 lbs 09/16/2017 Blood Pressure 1: 134/80 Code: 8480-6 BMI: 22.5 Code: 34439-9 Heart Rate 1: 86 bpm Height: 5'2" SpO2: 98% Weight: 123 lbs 09/09/2017 Blood Pressure 1: 138/72 Code: 8480-6 Blood Pressure 1: 150/66 Code: 8480-6 BMI: 22.9 Code: 36770-9 Heart Rate 1: 81 bpm Height: 5'2" SpO2: 98% Weight: 125 lbs 07/16/2017 Blood Pressure 1: 144/68 Code: 8480-6 BMI: 21.9 Code: 96186-3 Heart Rate 1: 73 bpm Height: 5'2" SpO2: 98% Weight: 120 lbs 06/14/2017 Blood Pressure 1: 132/64 Code: 8480-6 BMI: 22.3 Code: 63764-4 Heart Rate 1: 77 bpm Height: 5'2" SpO2: 98% Temperature: 37.0 (C ) / 98.6 (F) Weight: 122 lbs 06/10/2017 Blood Pressure 1: 134/64 Code: 8480-6 BMI: 22.5 Code: 57988-0 Heart Rate 1: 78 bpm Height: 5'2" SpO2: 95% Weight: 123 lbs 05/13/2017 Blood Pressure 1: 140/66 Code: 8480-6 BMI: 21.6 Code: 70701-8 Heart Rate 1: 80 bpm Height: 5'2" SpO2: 98% Weight: 118 lbs 03/26/2017 Blood Pressure 1: 150/78 Code: 8480-6 BMI: 23.2 Code: 79236-3 Heart Rate 1: 73 bpm Height: 5'2" SpO2: 99% Weight: 127 lbs 02/19/2017 Blood Pressure 1: 126/64 Code: 8480-6 BMI: 22.9 Code: 98599-2 Heart Rate 1: 74 bpm Height: 5'2" SpO2: 99% Weight: 125 lbs 01/16/2017 Blood Pressure 1: 136/68 Code: 8480-6 Heart Rate 1: 97 bpm Height: 5'2" Respiratory Rate: 16 bpm Temperature: 37.5 (C ) / 99.5 (F) Weight: 01/08/2017 Blood Pressure 1: 144/60 Code: 8480-6 BMI: 23.0 Code: 39800-1 Heart Rate 1: 71 bpm Height: 5'2" SpO2: 96% Weight: 126 lbs 11/21/2016 Blood Pressure 1: 150/62 Code: 8480-6 BMI: 23.2 Code: 37452-5 Heart Rate 1: 73 bpm Height: 5'2" SpO2: 94% Weight: 127 lbs 10/16/2016 Blood Pressure 1: 142/82 Code: 8480-6 BMI: 22.9 Code: 24134-7 Heart Rate 1: 80 bpm Height: 5'2" SpO2: 96% Weight: 125 lbs 10/08/2016 Blood Pressure 1: 150/72 Code: 8480-6 Heart Rate 1: 65 bpm Height: 5'2" SpO2: 98% 10/01/2016 Blood Pressure 1: 152/76 Code: 8480-6 Heart Rate 1: 69 bpm Height: 5'2" SpO2: 97% 09/27/2016 Blood Pressure 1: 122/64 Code: 8480-6 BMI: 23.3 Code: 20521-7 Heart Rate 1: 80 bpm Height: 5'2" SpO2: 98% Weight: 127 lbs 8 oz 07/19/2016 Blood Pressure 1: 118/68 Code: 8480-6 BMI: 23.0 Code: 20172-0 Heart Rate 1: 62 bpm Height: 5'2" SpO2: 97% Weight: 126 lbs 07/10/2016 Blood Pressure 1: 132/64 Code: 8480-6 BMI: 23.4 Code: 05295-0 Heart Rate 1: 82 bpm Height: 5'2" SpO2: 98% Waist Measure (cm): 76 cm Weight: 128 lbs 07/09/2016 Blood Pressure 1: 132/64 Code: 8480-6 BMI: 23.4 Code: 60262-1 Heart Rate 1: 82 bpm Height: 5'2" SpO2: 98% Temperature: 37.2 (C ) / 98.9 (F) Weight: 128 lbs 06/06/2016 Blood Pressure 1: 144/66 Code: 8480-6 BMI: 23.4 Code: 19749-1 Heart Rate 1: 77 bpm Height: 5'2" SpO2: 97% Weight: 128 lbs 04/03/2016 Blood Pressure 1: 164/70 Code: 8480-6 BMI: 24.5 Code: 96616-7 Heart Rate 1: 80 bpm Height: 5'2" SpO2: 98% Weight: 134 lbs 12/26/2015 Blood Pressure 1: 130/72 Code: 8480-6 BMI: 24.1 Code: 88230-5 Heart Rate 1: 63 bpm Height: 5'2" SpO2: 98% Weight: 132 lbs 09/19/2015 Blood Pressure 1: 140/68 Code: 8480-6 BMI: 24.2 Code: 86721-4 Heart Rate 1: 96 bpm Height: 5'2" SpO2: 98% Weight: 132 lbs 8 oz 07/19/2015 Blood Pressure 1: 128/64 Code: 8480-6 BMI: 24.2 Code: 58595-8 Heart Rate 1: 66 bpm Height: 5'2" SpO2: 98% Weight: 132 lbs 8 oz 03/22/2015 Blood Pressure 1: 128/60 Code: 8480-6 BMI: 24.0 Code: 38075-1 Heart Rate 1: 57 bpm Height: 5'2" SpO2: 98% Weight: 131 lbs 02/15/2015 Blood Pressure 1: 132/56 Code: 8480-6 BMI: 23.8 Code: 50118-4 Heart Rate 1: 70 bpm Height: 5'2" SpO2: 98% Weight: 130 lbs 11/15/2014 Blood Pressure 1: 120/78 Code: 8480-6 BMI: 24.1 Code: 07467-4 Heart Rate 1: 79 bpm Height: 5'2" SpO2: 98% Weight: 132 lbs 08/13/2014 Blood Pressure 1: 140/60 Code: 8480-6 BMI: 24.0 Code: 88992-6 Heart Rate 1: 74 bpm Height: 5'2" [...] Encounters Encounter Performer Loca tion Codes Date ([id number]) 26374 EST. P ATIENT, LEVEL IV Diagnosis: Type 2 diabetes mellitus with hyperglycemia[ICD10: E11.65] Diagnosis: Essential (primary) hypertension[ICD10: I10] Diagnosis: Localized edema[ICD10: R60.0] Dominique Recinos MD, [facility] CPT-4: 59983 12/25/2017 [id number]) 22860 EST. P ATIENT, LEVEL IV Diagnosis: Diverticulitis of large intestine without perforation or abscess without bleeding[ICD10: K57.32] Diagnosis: Nausea[ICD10: R11.0] [facility] CPT-4: 68536 11/22/2017 ([id number]) Miscellaneou s no charge Diagnosis: Laceration without foreign body of right forearm, subsequent encounter[ICD10: S51.811D] [facility] CPT-4: 62858 10/16/2017 ([id number]) Miscellaneou s no charge Diagnosis: Laceration without foreign body of right forearm, subsequent encounter[ICD10: S51.811D] Dominique Recinos MD, [facility] CPT-4: 91123 10/14/2017 ([id number]) Miscellaneou s no charge Diagnosis: Laceration without foreign body of right forearm, subsequent encounter[ICD10: S51.811D] Dominique Recinos MD, [facility] CPT-4: 00208 10/09/2017 ([id number]) 04753 EST. P ATIENT, LEVEL III Diagnosis: Type 2 diabetes mellitus with hyperglycemia[ICD10: E11.65] Dominique Recinos MD, C CPT-4: 12817 10/07/2017 ([id number]) 61502 EST. P ATIENT, LEVEL III Diagnosis: Type 2 diabetes mellitus with hyperglycemia[ICD10: E11.65] Fatmata Recinos MD, [facility] CPT-4: 61492 09/16/2017 ([id number]) 39226 EST. P ATIENT, LEVEL III Diagnosis: Essential (primary) hypertension[ICD10: I10] Dominique Recinos MD, [facility] CPT-4: 01916 09/09/2017 ([id number]) Miscellaneou s no charge Diagnosis: Type 1 diabetes mellitus without complications[ICD10: E10.9] Fatmata Recinos MD, [facility] CPT-4: 79132 07/22/2017 ([id number]) 14502 EST. P ATIENT, LEVEL IV Diagnosis: Type 1 diabetes mellitus without complications[ICD10: E10.9] Diagnosis: Mixed hyperlipidemia[ICD10: E78.2] Diagnosis: Essential (primary) hypertension[ICD10: I10] Dominique Recinos MD[facility] C CPT-4: 17062 07/16/2017 ([id number]) 96320 EST. P ATIENT, LEVEL III Diagnosis: Cough[ICD10: R05] Diagnosis: Acute recurrent maxillary sinusitis[ICD10: J01.01] Maile Recinos MD, [facility] CPT-4: 75535 06/14/2017 ([id number]) 26761 EST. P ATIENT, LEVEL IV Diagnosis: Type 1 diabetes mellitus without complications[ICD10: E10.9] Diagnosis: Essential (primary) hypertension[ICD10: I10] Dominique Recinos MD, C CPT-4: 84999 06/10/2017 ([id number]) 86938 EST. P ATIENT, LEVEL IV Diagnosis: Essential (primary) hypertension[ICD10: I10] Diagnosis: Type 1 diabetes mellitus without complications[ICD10: E10.9] Dominique Recinos MD, [facility] CPT-4: 82837 05/13/2017 56330 EST. PATIENT, LEVEL III Diagnosis: Sciatica, right side[ICD10: M54.31] Diagnosis: Low back pain[ICD10: M54.5] Fatmata Recinos MD, [facility] CPT-4: 00522 03/26/2017 ([id number]) 36659 EST. P ATIENT, LEVEL III Diagnosis: Type 1 diabetes mellitus without complications[ICD10: E10.9] Diagnosis: Essential (primary) hypertension[ICD10: I10] Dominique Recinos MD, C CPT-4: 03753 02/19/2017 ([id number]) 55003 EST. P ATIENT, LEVEL IV Diagnosis: Fever presenting with conditions classified elsewhere[ICD10: R50.81] Diagnosis: Weakness[ICD10: R53.1] Diagnosis: Frequency of micturition[ICD10: R35.0] Diagnosis: Type 1 diabetes mellitus without complications[ICD10: E10.9] Dominique Recinos MD, [facility] CPT-4: 89847 01/16/2017 ([id number]) 45379 EST. P ATIENT, LEVEL IV Diagnosis: Type 1 diabetes mellitus without complications[ICD10: E10.9] Diagnosis: Essential (primary) hypertension[ICD10: I10] Dominique Recinos MD, C CPT-4: 77857 01/08/2017 ([id number]) 25181 EST. P ATIENT, LEVEL IV Diagnosis: Essential (primary) hypertension[ICD10: I10] Diagnosis: Type 1 diabetes mellitus without complications[ICD10: E10.9] Dominique Recinos MD, [facility] CPT-4: 80391 11/21/2016 ([id number]) 24862 EST. 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 P ATIENT, LEVEL III Diagnosis: Chronic obstructive pulmonary disease with (acute) exacerbation[ICD10: J44.1] Diagnosis: Cough[ICD10: R05] Maile Recinos MD, [facility] CPT-4: 86837 10/08/2016 ([id number]) Miscellaneou s no charge Diagnosis: Cough[ICD10: R05] Diagnosis: Chronic obstructive pulmonary disease with (acute) exacerbation[ICD10: J44.1] Maile Recinos MD, [facility] CPT-4: 67821 10/01/2016 ([id number]) 20691 EST. P ATIENT, LEVEL III Diagnosis: Cough[ICD10: R05] Diagnosis: Acute bronchitis, unspecified[ICD10: J20.9] Maile Recinos MD, [facility] CPT-4: 04484 09/27/2016 ([id number]) 34310 EST. P ATIENT, LEVEL III Diagnosis: Type 1 diabetes mellitus without complications[ICD10: E10.9] Dominique Recinos MD, [facility] CPT-4: 46896 07/19/2016 ([id number]) 77770 EST. P ATIENT, LEVEL IV Diagnosis: Essential (primary) hypertension[ICD10: I10] Diagnosis: Type 1 diabetes mellitus without complications[ICD10: E10.9] Diagnosis: Other allergic rhinitis[ICD10: J30.89] Diagnosis: Acute laryngopharyngitis[ICD10: J06.0] Dominique Recinos MD, [facility] CPT-4: 15412 07/09/2016 ([id number]) 33722 EST. P ATIENT, LEVEL IV Diagnosis: Essential (primary) hypertension[ICD10: I10] Diagnosis: Type 1 diabetes mellitus without complications[ICD10: E10.9] Diagnosis: Mixed hyperlipidemia[ICD10: E78.2] Dominique Recinos MD, [facility] CPT- 4: 59890 06/06/2016 94480 EST. PATIENT, LEVEL III Diagnosis: Other allergic rhinitis[ICD10: J30.89] Diagnosis: Acute laryngopharyngitis[ICD10: J06.0] Fatmata Recinos MD, [facility] CPT-4: 17238 04/03/2016 ([id number]) 45204 EST. P ATIENT, LEVEL IV Diagnosis: Type 1 diabetes mellitus without complications[ICD10: E10.9] Diagnosis: Essential (primary) hypertension[ICD10: I10] Diagnosis: Pain in right hand[ICD10: M79.641] Dominique Recinos MD, [facility] CPT- 4: 62008 12/26/2015 ([id number]) 03847 EST. P ATIENT, LEVEL IV Diagnosis: Type 1 diabetes mellitus without complications[ICD10: E10.9] Diagnosis: Essential (primary) hypertension[ICD10: I10] Dominique Recinos MD, [facility] CPT-4: 15608 09/19/2015 ([id number]) 02964 EST. P ATIENT, LEVEL IV Diagnosis: Essential (primary) hypertension[ICD10: I10] Diagnosis: Mixed hyperlipidemia[ICD10: E78.2] Diagnosis: Type 1 diabetes mellitus without complications[ICD10: E10.9] Dominique Recinos MD, [facility] CPT-4: 54899 07/19/2015 ([id number]) 31203 EST. P ATIENT, LEVEL IV Diagnosis: Other specified dorsopathies, lumbar region[ICD10: M53.86] Diagnosis: Urge incontinence[ICD10: N39.41] Diagnosis: Type 1 diabetes mellitus without complications[ICD10: E10.9] Dominique Recinos MD, [facility] CPT-4: 26292 03/22/2015 ([id number]) 01365 EST. P ATIENT, LEVEL IV Diagnosis: Essential (primary) hypertension[ICD10: I10] Diagnosis: Other specified dorsopathies, lumbar region[ICD10: M53.86] Diagnosis: Other chronic pain[ICD10: G89.29] Dominique Recinos MD, [facility] CPT-4: 53382 02/15/2015 ([id number]) 02369 EST. P ATIENT, LEVEL IV Diagnosis: ESSENTIAL HYPERTENSION[ICD9: 401.9] Diagnosis: DIABETES TYPE II[ICD9: 250.00] Diagnosis: FALL FROM LADDER[ICD9: E881.0] Diagnosis: Right hip pain[ICD9: 719.45] Diagnosis: Left hand pain[ICD9: 729.5] Diagnosis: Sacroiliac joint pain[ICD9: 724.6] [facility] CPT- 4: 13771 11/15/2014 ([id number]) OFFICE VISI , [facility] - LEVEL 4 Diagnosis: DIABETES TYPE II[ICD9: 250.00] Diagnosis: ESSENTIAL HYPERTENSION[ICD9: 401.9] Diagnosis: HYPERLIPIDEMIA[ICD9: 272.4] [facility] CPT-4: 48262 08/13/2014 Plan of Care Planned Activity Notes [...] seated. 12/25/2017 Appointment: [phone] (15 min) Moderate 12/25/2017 Patient Education: Patient Medication Summary Completed 12/25/2017 Patient Education: Diabetes Completed 12/25/2017 Appointment: [facility]inos [phone] (15 min) Moderate 12/09/2017 Visit Plan: Diverticulitis - rx for antibiotic sent to pt's pharmacy - pt advised to avoid seeds, nuts, popcorn, or any other food which has been proven to upset the pt's stomach. 11/22/2017 Appointment: [facility]ile Randolph [phone] [phone] (15 min) Moderate 11/22/2017 Patient Education: Patient [...] blood glucose. 10/07/2017 Appointment: Dominique Recinos WPtel: [phone] [facility] [place] (15 min) Moderate 10/07/2017 Patient Education: [...] control. 09/16/2017 Appointment: Fatmata Spann WPtel: [phone] [facility] [place] [place] (15 min) Moderate 09/16/2017 Patient Education: [...] at home. 09/09/2017 Appointment: Dominique Recinos WPtel: [phone] [facility] [place] (15 min) Moderate 09/09/2017 Patient Education: Patient Medication Summary Completed 09/09/2017 Appointment: Maile Randolph WPtel: [phone] [phone] [place] (15 min) Moderate 09/06/2017 Appointment: Dominique Recinos WPtel: [phone] [facility] [place] [place] (15 min) Moderate 09/05/2017 Appointment: Fatmata Spann WPtel: [phone] [facility] [place] (15 min) Moderate 07/22/2017 Patient Education: [...] less controlled. ipro placed today - by ONCOLOGY REP - pt to RTC on Saturday for [...] less controlled. ipro placed today - by ONCOLOGY REP - pt to RTC on Saturday for [...] to medications. 07/16/2017 Appointment: Dominique Recinos WPtel: [address] [place], [place] [address] (15 min) Moderate 07/16/2017 Patient Education: Patient Medication Summary Completed 07/16/2017 Visit Plan: Sinusitis - Pt has acut e infection - pain in face, maxillary region, Pt informed to use decongestant, RX given to patient, sinus rinses also recommended. Call if symptoms do not show improvement. 06/14/2017 Appointment: Maile Randolph WPtel: [phone] [facility] [phone] [place] (30 min) Complex 06/14/2017 Patient Education: [...] at home. 06/10/2017 Appointment: Dominique Recinos WPtel: [phone] [facility] [place] (15 min) Moderate 06/10/2017 Patient Education: Patient Medication Summary Completed 06/10/2017 Appointment: Fatmata Spann WPtel: [phone] [facility] [place] (30 min) Complex 06/03/2017 Visit Plan: [...] controlled. 05/13/2017 Appointment: Dominique Recinos WPtel: [phone] [facility] [place] (15 min) Moderate 05/13/2017 Patient Education: Patient Medication Summary Completed 05/13/2017 Appointment: Dominique Recinos WPtel: [phone] [facility] [place] (30 min) Complex 05/03/2017 Appointment: Fatmata Spann WPtel: [phone] [facility] [place] [place] (15 min) Moderate 04/12/2017 Appointment: Dominique Recinos WPtel: [phone] [facility] [place] (15 min) Moderate 04/11/2017 Appointment: Dominique Recinos WPtel: [phone] [facility] [place] (15 min) Moderate 04/10/2017 Appointment: Dominique Recinos WPtel: [phone] [facility] [place] (15 min) Moderate 04/02/2017 Visit Plan: [...] injection. 03/26/2017 Appointment: Fatmata Spann WPtel: [phone] [facility] [place] [place] (30 min) Complex 03/26/2017 Appointment: Dominique Recinos WPtel: [phone] [facility] [place] (15 min) Moderate 03/26/2017 Patient Education: [...] at home. 02/19/2017 Appointment: Dominique Recinos WPtel: [phone] [facility] (15 min) Moderate 02/19/2017 Patient Education: Patient Medication Summary Completed 02/19/2017 Patient Education: Hypertension Completed 02/19/2017 Appointment: Dominique Recinos WPtel: [phone] [facility] (15 min) Moderate 02/12/2017 Visit Plan: Diabetes [...] 100F. 01/16/2017 Appointment: Dominique Recinos WPtel: [phone] [facility] (15 min) Moderate 01/16/2017 Patient Education: Patient [...] home. 01/08/2017 Appointment: Dominique Recinos WPtel: [phone] [facility] (15 min) Moderate 01/08/2017 Patient Education: Patient Medication Summary Completed 01/08/2017 Patient Education: Hypertension Completed 01/08/2017 Appointment: Dominique Recinos WPtel: [phone] [facility] [place] (15 min) Moderate 12/31/2016 Appointment: Dominique Recinos WPtel: [phone] [facility] (15 min) Moderate 12/18/2016 Visit Plan: [...] controlled. 11/21/2016 Appointment: Dominique Recinos WPtel: [phone] [facility] [place] (15 min) Moderate 11/21/2016 Patient [...] potatoes, creamy coleslaw, etc. -- referral to biomedical specialist. Hyperlipidemia - pt has been counseled [...] healed 10/16/2016 Appointment: Dominique Recinos WPtel: [phone] [facility] (15 min) Moderate 10/16/2016 Patient Education: Patient Medication Summary Completed 10/16/2016 Patient Education: Hypertension Completed 10/16/2016 Patient Education: Patient Medication Summary Completed 10/09/2016 Care Plan: Free T4 Pending 10/09/2016 Visit Plan: COPD exacerbation-cough -symptoms resolved-call if symptoms return-monitor blood sugars closely for the next few days and discussed diet. 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 10/01/2016 Appointment: Maile Randolph WPtel: [phone] [phone] (30 min) Complex 10/01/2016 Patient Education: Patient Medication Summary Completed 10/01/2016 Visit Plan: Bronchitis - acute case of bronchitis identified. Pt has been given antibiotics, breathing treatments as appropriate, and pt has been instructed to call if symptoms are not improved, or if symptoms acutely worsen. 09/27/2016 Appointment: Maile Randolph WPtel: [phone] [facility] [phone] (30 min) Complex 09/27/2016 Patient Education: Patient [...] controlled. 07/19/2016 Appointment: Dominique Recinos WPtel: [phone] [facility] (15 min) Moderate 07/19/2016 Patient Education: [...] surrogate. 07/10/2016 Appointment: Fatmata Spann WPtel: [phone] [facility] [facility] - Annual Wellness Visit 07/10/2016 Patient Education: [...] not improving 07/09/2016 Appointment: Dominique Recinos WPtel: [phone] [facility] [place] (15 min) Moderate 07/09/2016 Patient Education: Patient Medication Summary Completed 07/09/2016 Patient Education: Hypertension Completed 07/09/2016 Appointment: Dominique Recinos WPtel: [facility] (15 min) Moderate 06/26/2016 Visit Plan: [...] me dications. 06/06/2016 Appointment: Dominique Recinos WPtel: [phone] [facility] [place] (15 min) Moderate 06/06/2016 Patient Education: Patient Medication Summary Completed 06/06/2016 Appointment: Dominique Recinos WPtel: [phone] (15 min) Moderate 04/30/2016 Visit Plan: URI [...] [facility]Ptel: [phone] [place] (30 min) Complex 04/03/2016 Patient Education: Patient [...] Completed 12/26/2015 Appointment: Dominique Recinos WPtel: [phone] [facility] (15 min) Moderate 12/19/2015 Visit Plan: [...] at home. 09/19/2015 Appointment: Dominique Recinos WPtel: [phone] [facility] (15 min) Moderate 09/19/2015 Patient Education: [...] dications. 07/19/2015 Appointment: Dominique Recinos WPtel: [phone] (15 min) Moderate 07/19/2015 Patient Education: Patient [...] Back pain - referral to [facility] physical therapy for further eval and treat. 03/22/2015 Appointment: Dominique Recinos WPtel: [facility] (15 min) Moderate 03/22/2015 Patient Education: Patient Medication Summary Completed 03/22/2015 Care Plan: Referral Order SNOMED-CT : [id number] Ordered 03/22/2015 Visit Plan: Hypertension - well [...] me dications. 08/13/2014 Appointment: Dominique Recinos WPtel: [address] [place], [place] [address] [place] ([place]) New Patient 08/13/2014 Patient Education: Patient Medication Summary Completed 08/13/2014 Patient Education: Hypertension Completed 08/13/2014 Referral: External, Ordering Provider Referral Appointment Requested Instructions Comment Go back to taking yo ur benicar [...] refer Nathalia for diabetic education at the [facility]. Increase the protein in your diet. [...] potatoes, creamy coleslaw, etc. -- referral to biomedical specialist. Hyperlipidemia - pt has been counseled [...] change in blood pressure readings at home. madihaepnorris and adrian . Bronchitis - acute case [...] show improvement. two old goats - from [employer] and home . Hypertension - well controlled [...] a long car ride. . Hypertension - wel l controlled - [...] less controlled. ipro placed today - by ONCOLOGY REP - pt to RTC on Saturday for [...] less controlled. ipro placed today - by ONCOLOGY REP - pt to RTC on Saturday for [...] assure normal liver response to medications. . Low back pain- the patient was [...] occurs at the site of injection. . COPD exacerbation- cough-symptoms resolved-call if symptoms [...] Back pain - referral to [facility] physical therapy for further eval and treat. . Diabetes Mellitus - controlled - per [...] are starting to become less controlled. . URI - Pt advised t o [...]
--- OUTSIDE RECORDS SUMMARY | 2019-06-14 17:23 | XMS REPORT | CCD ---
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 Name Role Phone PP Unavailable CCM Unavailable Summary Purpose Interface Exchange Insurance Providers Payer name Policy type / Coverage type Covered libertarian ID Effective Begin Date Effective End Date WPS Medicare Part B Medicare Part B [id number] Unknown Unknown [facility] icare Part B [id number] Unknown Unk nown Family history Mother Diagnosis Age At Onset No Family Disease Entered N/A Father Diagnosis Age At Onset Heart Attack Unknown Diabetes Unknown Social History Social History Element Codes Description Effective Dates Number of children Unknown 2 Sons, 5 grandchildren, 11 great grandchildren 01/08/2017 Marital status Unknown W crystal [place] in [address]606/06/[address]: 437933431 Never smoker 08/13/[address]: 394901592 Never drinks alcohol 08/13/2014 Allergies, Adverse Reactions, Alerts Substance Reaction Codes Entered Date Inactivated Date Status * NO KNOWN DRUG ABE RGIES Unknown 11/15/2014 No Inactive Date Active Past Medical History Illness Codes Condition Status Onset Date Resolved Date Laceration without f oreign body of right forearm, subsequent encounter ICD-9: V58.89 ICD-10: S51.811D Active 10/09/2017 Unknown Type 2 diabetes kristy itus with hyperglycemia ICD-9: 250.02 ICD-10: E11.65 Active 09/16/2017 Unknown Essential (primary) hypertension ICD-9: 401.1 ICD-10: I10 Active 05/13/2017 Unknown Type 1 diabetes kristy itus without [...] Condition Codes Effectiv e Dates Condition Status Laceration without f oreign body of right forearm, subsequent encounter ICD-9: V58.89 ICD-10: S51.811D 10/09/2017 Active Type 2 diabetes kristy itus with hyperglycemia ICD-9: 250.02 ICD-10: E11.65 09/16/2017 Active Essential (primary) hypertension ICD-9: 401.1 ICD-10: I10 05/13/2017 Active Type 1 diabetes kristy itus without [...] Date Stop Date Sta tus Fill Instructions Kenalog 40 mg/mL fanny pension for injection RxNorm: 2624737 1 Milliliter(s) Inj 06/14/2017 06/14/2017 In active Flonase Allergy Reli ef 50 mcg/actuation nasal spray,suspension RxNorm: 9955317 2 [place] NASAL daily 06/14/2017 06/20/2017 Inactive doxycycline hyclate 100 mg tablet RxNorm: 197894 1 Tablet(s) PO BID 06/14/2017 06/20/2017 Inactive Lantus U-100 Insulin 100 unit/mL subcutaneous solution RxNorm: 204582 17 Unit(s) SQ QAM 06/10/2017 07/09/2017 Inactive gabapentin 100 mg ca psule RxNorm: 881757 TAKE ONE CAPSULE BY M OUTH THREE TIMES A DAY 05/23/2017 08/29/2017 Inactive Lantus U-100 Insulin 100 unit/mL subcutaneous solution RxNorm: 830720 15 Unit(s) SQ QAM 05/14/2017 06/09/2017 Inactive Novolog U-100 Insuli n aspart 100 unit/mL subcutaneous solution RxNorm: 718087 SSI 5 units over 150 and for every additional 50 add 2 units Unit(s) SQ TID adjust as needed for glucose control 04/24/2017 11/19/2017 Active Zocor 20 mg tablet RxNorm: 151875 1 Tablet(s) PO daily 04/05/2017 03/30/2018 Active Kenalog 40 mg/mL fanny pension for injection RxNorm: 3240594 1 Milliliter(s) Inj 03/26/2017 03/26/2017 In active Novolog 100 unit/mL subcutaneous solution RxNorm: 492205 SSI 5 units over 150 and for every additional 50 add 2 units Unit(s) SQ TID adjust as needed for glucose control 02/19/2017 04/23/2017 Inactive Lantus 100 unit/mL s ubcutaneous solution RxNorm: 498373 10 Unit(s) SQ QAM 02/19/2017 05/13/2017 In active ceftriaxone 500 mg s olution for injection RxNorm: 1474649 Inj 01/16/2017 01/16/2017 Inactive Lantus 100 unit/mL s ubcutaneous solution RxNorm: 301098 7 Unit(s) SQ QAM 01/16/2017 02/18/2017 In active Lantus 100 unit/mL s ubcutaneous solution RxNorm: 140433 10 Unit(s) SQ daily 01/08/2017 05/12/2017 In active gabapentin 100 mg ca psule RxNorm: 951818 TAKE ONE CAPSULE BY M OUTH THREE TIMES A DAY 11/30/2016 02/03/2017 Inactive Zoloft 50 mg tablet RxNorm: 703712 TAKE ONE TABLET BY MOUTH DAILY 10/30/2016 04/27/2017 In active Zocor 20 mg tablet RxNorm: 155322 1 Tablet(s) PO daily 10/16/2016 04/04/2017 Inactive stop the 40mg dose of zocor, start on 20 mg Lantus 100 unit/mL s ubcutaneous solution RxNorm: 293717 15 Unit(s) SQ daily 10/16/2016 01/07/2017 In active Novolog 100 unit/mL subcutaneous solution RxNorm: 462825 SSI 5 units over 150 and for every additional 50 add 2 units Unit(s) SQ TID adjust as needed for glucose control 10/16/2016 02/18/2017 Inactive prednisone 20 mg tablet RxNorm: 912171 1 Tablet(s) PO BID 10/01/2016 10/05/2016 Inactive Kenalog 40 mg/mL fanny pension for injection RxNorm: 7933190 1 Milliliter(s) Inj 09/27/2016 09/27/2016 In active Zithromax Z-Kishor 250 mg tablet RxNorm: 330910 1 Tablet(s) PO UD 09/27/2016 10/01/2016 Inactive ceftriaxone 500 mg s olution for injection RxNorm: 1583370 1 Milliliter(s) Inj 09/27/2016 09/27/2016 In active Tessalon Perles 100 mg capsule RxNorm: 613083 1 Capsule(s) PO Q8 AR N as needed 09/22/2016 No Stop Date Active Augmentin 500 mg-125 mg tablet RxNorm: 741862 1 Tablet(s) PO BID 09/22/2016 09/26/2016 Inactive metoprolol tartrate 50 mg tablet RxNorm: 641969 TAKE ONE TABLET BY [facility] TWICE A DAY 08/02/2016 07/27/2017 Inactive Novolog 100 unit/mL subcutaneous solution RxNorm: 743974 10 Unit(s) SQ TID adj ust as needed for glucose control 07/19/2016 10/15/2016 Inactive Humalog 100 unit/mL subcutaneous solution RxNorm: 062727 INJECT 10 UNITS UNDER THE SKIN BEFORE EACH MEAL 07/16/2016 07/16/2016 Inactive Kenalog 40 mg/mL fanny pension for injection RxNorm: 1909676 1 Milliliter(s) Inj 07/09/2016 07/09/2016 In active ceftriaxone 500 mg s olution for injection RxNorm: 9978426 Inj 07/09/2016 07/09/2016 Inactive Lantus 100 unit/mL s ubcutaneous solution RxNorm: 501488 Unit(s) INJECT 13 UNI TS UNDER THE SKIN IN THE MORNING 06/06/2016 10/15/2016 Inactive Zoloft 50 mg tablet RxNorm: 954778 TAKE ONE TABLET BY MOUTH DAILY 04/27/2016 07/25/2016 In active Lantus 100 unit/mL s ubcutaneous solution RxNorm: 190877 INJECT 20 UNITS UNDER THE SKIN AT BEDTIME 04/27/2016 06/05/2016 Inactive amoxicillin 500 mg c apsule RxNorm: 145406 1 Capsule(s) PO TID 04/03/2016 04/12/2016 Inactive Zyrtec 10 mg tablet RxNorm: 6552078 1 Tablet(s) PO daily 04/03/2016 05/02/2016 Inactive hydrochlorothiazide 12.5 mg capsule RxNorm: 278095 TAKE ONE CAPSULE BY M OUTH DAILY 03/12/2016 12/06/2016 In active Benicar 40 mg tablet RxNorm: 568840 1 Tablet(s) PO daily 02/28/2016 04/27/2016 Inactive Benicar 40 mg tablet RxNorm: 426062 1 Tablet(s) PO daily 02/20/2016 02/27/2016 Inactive gabapentin 100 mg ca psule RxNorm: 667038 TAKE ONE CAPSULE BY M OUTH THREE TIMES A DAY 01/09/2016 04/16/2016 Inactive metoprolol tartrate 50 mg tablet RxNorm: 176354 TAKE ONE TABLET BY MO UTH TWICE A DAY 01/09/2016 04/07/2016 Inactive Humalog 100 unit/mL subcutaneous solution RxNorm: 119170 5-10 Unit(s) SQ AC 07/19/2015 07/18/2016 In active Lantus 100 unit/mL s ubcutaneous solution RxNorm: 937777 13 Unit(s) SQ QAM 07/19/2015 01/15/2017 In active Lantus 100 unit/mL s ubcutaneous solution RxNorm: 394528 20 Unit(s) SQ QHS 07/14/2015 07/18/2015 In active Zoloft 50 mg tablet RxNorm: 667860 1 Tablet(s) PO daily 05/19/2015 09/15/2015 Inactive Humalog 100 unit/mL subcutaneous solution RxNorm: 709957 10 Unit(s) SQ AC 05/11/2015 07/18/2015 In active metoprolol tartrate 50 mg tablet RxNorm: 417705 1 Tablet(s) PO BID 04/28/2015 08/25/2015 Inactive Lantus 100 unit/mL s ubcutaneous solution RxNorm: 551244 20 Unit(s) SQ QHS 04/28/2015 07/13/2015 In active Vesicare 10 mg tablet RxNorm: 002537 1 Tablet(s) PO QPM 03/22/2015 09/18/2015 Inactive hydrochlorothiazide 12.5 mg capsule RxNorm: 570365 1 Tablet(s) PO daily 01/04/2015 12/29/2015 In active gabapentin 100 mg ca psule RxNorm: 098781 1 Capsule(s) PO TID 11/29/2014 03/28/2015 Inactive [...] Date Active aspirin 81 mg tablet RxNorm: 121479 1 Tablet(s) PO daily No Start Date Active doxazosin 2 mg tablet RxNorm: 811109 1 Tablet(s) PO QHS No Start Date Active Fish Oil oral RxNorm: 2996985 oral No Start Date Active multivitamin capsule RxNorm: 1 Capsule(s) PO daily No Start Date Active Humalog 100 unit/mL subcutaneous solution RxNorm: 445170 Unit(s) SQ No Start Date 05/10/2015 Inactive Zoloft 50 mg tablet RxNorm: 818881 1 Tablet(s) PO daily No Start Date 05/18/2015 Inactive gabapentin 100 mg ca psule RxNorm: 706962 1 Capsule(s) PO daily No Start Date 11/28/2014 Inactive metoprolol tartrate 50 mg tablet RxNorm: 065601 1 Tablet(s) PO TID No Start Date 04/27/2015 Inactive Benicar 40 mg tablet RxNorm: 495803 1 Tablet(s) PO daily No Start Date 02/19/2016 Inactive hydrochlorothiazide 25 mg tablet RxNorm: 413321 1 Tablet(s) PO daily No Start Date 01/03/2015 Inactive Lantus 100 unit/mL s ubcutaneous solution RxNorm: 573299 13 Unit(s) SQ No Start Date 04/27/2015 Inactive Zocor 40 mg tablet RxNorm: 979769 1 Tablet(s) PO daily No Start Date 10/15/2016 Inactive Medication Administered Medication Codes Instruc tions Start Date Status Kenalog 40 mg/mL suspension for injection RxNorm: 4641200 1Milliliter 06/14/2017 N o longer Active Kenalog 40 mg/mL suspension for injection RxNorm: 6119287 1Milliliter 03/26/2017 N o longer Active ceftriaxone 500 mg solution for injection RxNorm: 4999778 01/16/2017 No longer A ctive Kenalog 40 mg/mL suspension for injection RxNorm: 7232414 1Milliliter 09/27/2016 N o longer Active ceftriaxone 500 mg solution for injection RxNorm: 7672270 1Milliliter 09/27/2016 N o longer Active ceftriaxone 500 mg solution for injection RxNorm: 1151338 07/09/2016 No longer A ctive Kenalog 40 mg/mL suspension for injection RxNorm: 9713639 1Milliliter 07/09/2016 N o longer Active Immunizations Vaccine Codes Date Status Influenza CVX: 141 11/12 completed Pneumococcal (Adult) CVX: 133 02/15/2015 completed Influenza CVX: 141 12/10 completed Influenza CVX: 141 12/02 completed Pneumococcal CVX: 33 03/2013 completed Tetanus, Diptheria, Pertussis CVX: 113 12/02/2013 completed Tetanus/Diptheria CVX: 113 12/02/2013 completed Assessments Condition Codes Effectiv e Dates Laceration without foreign body of right forearm, subsequent encounter ICD-10: S51.811D ICD-9: V58.89 10/16/2017 Type 2 diabetes mellitus with hyperglycemia ICD-10: E11.65 ICD-9: 250.02 10/07/2017 Essential (primary) hypertension ICD -10: I10 ICD-9: 401.1 09/09/2017 Type 1 diabetes mellitus without complications ICD-10: [...] For Visit Effective Dates Notes diabetes mellitus 10/07/2017 diabetes mellitus 09/16/2017 diabetes [...] Code Item Item Code Result Date %Hba1C Fct133 % HbA1c 67091-4 8.0 % 05/13/2017 %Hba1C Eng522 Gluc Ave 183 mg/dL 05/13/2017 Comp Metabolic Ecc787 NA 135 mEq/L 05/13/2017 Comp Metabolic Ekd535 K 3.8 mEq/L 05/13/2017 Comp Metabolic Xqw446 CL 99 mEq/L 05/13/2017 Comp Metabolic Kyw304 CO2 29.0 mEq/L 05/13/2017 Comp Metabolic Awe577 AN ION GAP 11 05/13/2017 Comp Metabolic Gbq188 GL UCOSE 155 mg/dL 05/13/2017 Comp Metabolic Eyd721 Cr eat 0.7 mg/dL 05/13/2017 Comp Metabolic Mnn472 eG FR 90 ml/min/1.73m2 05/13 Comp Metabolic Eem593 BUN 18 mg/dL 05/13/2017 Comp Metabolic Bow898 B/ C Ratio 27.3 Ratio 05/13/2017 Comp Metabolic Qrh770 CA LCIUM 8.9 mg/dL 05/13/2017 Comp Metabolic Ckl297 AL K PHOS 90 U/L 05/13/2017 Comp Metabolic Tiu013 T(SGOT) 18 U/L 05/13/2017 Comp Metabolic Cms319 AL T(SGPT) 15 U/L 05/13/2017 Comp Metabolic Zpl548 BI LI T 0.5 mg/dL 05/13/2017 Comp Metabolic Wqy347 AL BUMIN 4.0 g/dL 05/13/2017 Comp Metabolic Kov097 TP RO 5.9 g/dL 05/13/2017 Comp Metabolic Fqp651 GL OB 1.9 g/dL 05/13/2017 Comp Metabolic Rug956 A/ G Ratio 2.1 Ratio 05/13/2017 Comp Metabolic Geb175 Os mo 275 mOsmo 05/13/2017 Urine Culture Ucult Comp lete NO Growth Day 2 01/18 Urine Culture Ucult Prel iminary NO Growth Day 1 01/18 Free T4 Ilt710 FREE T4 1.13 ng/dL 10/09/2016 Tsh Ord6 [...] 31.5 pg 10/08/2016 Cbc With Differential Ord2 Greer% 4.0 % 10/08/2016 Cbc With Differential Ord2 [...] 0.96 K/ul 10/08/2016 Cbc With Differential Ord2 [place] ABS# 0.4 K/ul 10/08/2016 Cbc With Differential Ord2 Eos ABS# 0.0 K/ul 10/08/2016 Cbc With Differential Ord2 Baso ABS# 0.0 K/ul 10/08/2016 Comp Metabolic Sai685 NA 135 mEq/L 10/08/2016 Comp Metabolic Rjk053 K 4.3 mEq/L 10/08/2016 Comp Metabolic Hbg817 CL 98 mEq/L 10/08/2016 Comp Metabolic Asl896 CO2 22.0 mEq/L 10/08/2016 Comp Metabolic Rjr396 AN ION GAP 19 10/08/2016 Comp Metabolic Sgp033 GL UCOSE 400 mg/dL 10/08/2016 Comp Metabolic Wns279 Cr eat 0.7 mg/dL 10/08/2016 Comp Metabolic Spx261 eG FR 79 ml/min/1.73m2 10/08 Comp Metabolic Uvi685 BUN 27 mg/dL 10/08/2016 Comp Metabolic Foi969 B/ C Ratio 36.5 Ratio 10/08/2016 Comp Metabolic Yxx667 CA LCIUM 9.1 mg/dL 10/08/2016 Comp Metabolic Kgn479 AL K PHOS 65 U/L 10/08/2016 Comp Metabolic Xpt098 T(SGOT) 28 U/L 10/08/2016 Comp Metabolic Txr746 AL T(SGPT) 24 U/L 10/08/2016 Comp Metabolic Vqk148 BI LI T 0.7 mg/dL 10/08/2016 Comp Metabolic Bun743 AL BUMIN 3.8 g/dL 10/08/2016 Comp Metabolic Wyt961 TP RO 6.0 g/dL 10/08/2016 Comp Metabolic Vyr440 GL OB 2.2 g/dL 10/08/2016 Comp Metabolic Sig740 A/ G Ratio 1.7 Ratio 10/08/2016 Comp Metabolic Vlv148 Os mo 292 mOsmo 10/08/2016 %Hba1C Ozq444 % HbA1c 88339-1 7.0 % 10/08/2016 %Hba1C Xgu785 Gluc Ave 154 mg/dL 10/08/2016 Microalbumin Wnz068 Micr oAlb <0.7 mg/dL 10/08/2016 Lipid Ord30 [...] OK? TNP:Duplicate Order 04/03/2016 C A/B FLU 1172416 Influe nza A Scr Negative 04/03/2016 C A/B FLU 0580359 Influe nza B Scr Negative 04/03/2016 Comp Metabolic Lhs044 NA 138 mEq/L 09/15/2015 Comp Metabolic Oal023 K 4.4 mEq/L 09/15/2015 Comp Metabolic Bof626 CL 103 mEq/L 09/15/2015 Comp Metabolic Gaa005 CO2 29.0 mEq/L 09/15/2015 Comp Metabolic Qzt756 AN ION GAP 10 09/15/2015 Comp Metabolic Jic572 GL UCOSE 156 mg/dL 09/15/2015 Comp Metabolic Nep024 Cr eat 0.7 mg/dL 09/15/2015 Comp Metabolic Jcz880 eG FR 79 ml/min/1.73m2 09/14 Comp Metabolic Pji421 BUN 23 mg/dL 09/15/2015 Comp Metabolic Ofr165 B/ C Ratio 31.1 Ratio 09/15/2015 Comp Metabolic Mun146 CA LCIUM 9.1 mg/dL 09/15/2015 Comp Metabolic Whi374 AL K PHOS 58 U/L 09/15/2015 Comp Metabolic Pso402 T(SGOT) 19 U/L 09/15/2015 Comp Metabolic Edy191 AL T(SGPT) 11 U/L 09/15/2015 Comp Metabolic Fjk429 BI LI T 0.6 mg/dL 09/15/2015 Comp Metabolic Mjx964 AL BUMIN 3.9 g/dL 09/15/2015 Comp Metabolic Nqa736 TP RO 5.8 g/dL 09/15/2015 Comp Metabolic Uut285 GL OB 1.9 g/dL 09/15/2015 Comp Metabolic Kdm202 A/ G Ratio 2.1 Ratio 09/15/2015 Comp Metabolic Fgl810 Os mo 283 mOsmo 09/15/2015 Cbc With [...] 30.5 pg 09/15/2015 Cbc With Differential Ord2 [place]% 10.2 % 09/15/2015 Cbc With Differential Ord2 [...] 0.86 K/ul 09/15/2015 Cbc With Differential Ord2 [place] ABS# 0.5 K/ul 09/15/2015 Cbc With Differential Ord2 Eos ABS# 0.1 K/ul 09/15/2015 Cbc With Differential Ord2 Baso ABS# 0.0 K/ul 09/15/2015 Tsh Ord6 hTSH II 0.76 uIU/mL 09/15/2015 Lipid Ord30 CHOL 139 mg/dL 09/15/2015 Lipid Ord30 HDL 57.0 mg/dl 09/15/2015 Lipid Ord30 TRIG 76 mg/dL 09/15/2015 Lipid Ord30 LDL 67 mg/dL 09/15/2015 Lipid Ord30 C/HDL 2.4 Ratio 09/15/2015 %Hba1C Ioy877 % HbA1c 61195-6 6.6 % 09/15/2015 %Hba1C Tfs779 Gluc Ave 143 mg/dL 09/15/2015 Tsh Ord6 hTSH II 0.68 uIU/mL 06/02/2015 %Hba1C Yxw793 % HbA1c 37181-9 6.5 % 06/02/2015 %Hba1C Lnb902 Gluc Ave 140 mg/dL 06/02/2015 Comp Metabolic Qry458 NA 139 mEq/L 06/02/2015 Comp Metabolic Ysl639 K 4.5 mEq/L 06/02/2015 Comp Metabolic Kkp072 CL 104 mEq/L 06/02/2015 Comp Metabolic Txi807 CO2 25.0 mEq/L 06/02/2015 Comp Metabolic Xtk226 AN ION GAP 15 06/02/2015 Comp Metabolic Znz683 GL UCOSE 123 mg/dL 06/02/2015 Comp Metabolic Yvs481 Cr eat 0.7 mg/dL 06/02/2015 Comp Metabolic Dlx876 eG FR 92 ml/min/1.73m2 06/01 Comp Metabolic Tti316 BUN 21 mg/dL 06/02/2015 Comp Metabolic Lyt105 B/ C Ratio 32.3 Ratio 06/02/2015 Comp Metabolic Smf525 CA LCIUM 9.5 mg/dL 06/02/2015 Comp Metabolic Vza581 AL K PHOS 66 U/L 06/02/2015 Comp Metabolic Sky378 T(SGOT) 19 U/L 06/02/2015 Comp Metabolic Gbo112 AL T(SGPT) 13 U/L 06/02/2015 Comp Metabolic Xui502 BI LI T 0.5 mg/dL 06/02/2015 Comp Metabolic Lkm269 AL BUMIN 4.0 g/dL 06/02/2015 Comp Metabolic Usl463 TP RO 6.3 g/dL 06/02/2015 Comp Metabolic Xgt076 GL OB 2.3 g/dL 06/02/2015 Comp Metabolic Guy294 A/ G Ratio 1.7 Ratio 06/02/2015 Comp Metabolic Eoc655 Os mo 282 mOsmo 06/02/2015 %Hba1C Lss417 % HbA1c 28296-8 6.7 % 02/17/2015 %Hba1C Dbj573 Gluc Ave 146 mg/dL 02/17/2015 Comp Metabolic Usw699 NA 133 mEq/L 02/17/2015 Comp Metabolic Nna456 K 4.3 mEq/L 02/17/2015 Comp Metabolic Jzc290 CL 99 mEq/L 02/17/2015 Comp Metabolic Jvi785 CO2 27.0 mEq/L 02/17/2015 Comp Metabolic Rjp317 AN ION GAP 11 02/17/2015 Comp Metabolic Lxt205 GL UCOSE 239 mg/dL 02/17/2015 Comp Metabolic Mou235 Cr eat 0.7 mg/dL 02/17/2015 Comp Metabolic Kpa294 eG FR 79 ml/min/1.73m2 02/17 Comp Metabolic Kkl746 BUN 24 mg/dL 02/17/2015 Comp Metabolic Dhz747 B/ C Ratio 32.4 Ratio 02/17/2015 Comp Metabolic Ibv597 CA LCIUM 9.1 mg/dL 02/17/2015 Comp Metabolic Rlu470 AL K PHOS 75 U/L 02/17/2015 Comp Metabolic Rzh113 T(SGOT) 18 U/L 02/17/2015 Comp Metabolic Wmd802 AL T(SGPT) 11 U/L 02/17/2015 Comp Metabolic Wzo971 BI LI T 0.6 mg/dL 02/17/2015 Comp Metabolic Kdb201 AL BUMIN 4.2 g/dL 02/17/2015 Comp Metabolic Jis911 TP RO 6.2 g/dL 02/17/2015 Comp Metabolic Jhj615 GL OB 2.0 g/dL 02/17/2015 Comp Metabolic Ozd199 A/ G Ratio 2.1 Ratio 02/17/2015 Comp Metabolic Dlp949 Os mo 278 mOsmo 02/17/2015 %Hba1C Cbz842 % HbA1c 14791-1 6.7 % 11/15/2014 %Hba1C Elw271 Gluc Ave 146 mg/dL 11/15/2014 Comp Metabolic Vap304 NA 134 mEq/L 11/15/2014 Comp Metabolic Rts370 K 4.5 mEq/L 11/15/2014 Comp Metabolic Rvu832 CL 101 mEq/L 11/15/2014 Comp Metabolic Okn324 CO2 27.0 mEq/L 11/15/2014 Comp Metabolic Hyk910 AN ION GAP 11 11/15/2014 Comp Metabolic Euf964 GL UCOSE 293 mg/dL 11/15/2014 Comp Metabolic Biq838 Cr eat 0.7 mg/dL 11/15/2014 Comp Metabolic Gvv221 eG FR 87 ml/min/1.73m2 11/15 Comp Metabolic Ubt560 BUN 20 mg/dL 11/15/2014 Comp Metabolic Idg208 B/ C Ratio 29.4 Ratio 11/15/2014 Comp Metabolic Fjo473 CA LCIUM 9.0 mg/dL 11/15/2014 Comp Metabolic Vke645 AL K PHOS 67 U/L 11/15/2014 Comp Metabolic Wvn906 T(SGOT) 17 U/L 11/15/2014 Comp Metabolic Czo420 AL T(SGPT) 10 U/L 11/15/2014 Comp Metabolic Gcj324 BI LI T 0.6 mg/dL 11/15/2014 Comp Metabolic Uin919 AL BUMIN 4.0 g/dL 11/15/2014 Comp Metabolic Zsw177 TP RO 6.0 g/dL 11/15/2014 Comp Metabolic Ckk946 GL OB 2.0 g/dL 11/15/2014 Comp Metabolic Sgt931 A/ G Ratio 2.0 Ratio 11/15/2014 Comp Metabolic Cel483 Os mo 282 mOsmo 11/15/2014 Review of Systems System Result Effective Dates Constitutional No recent illness 10/07/2017 Constitutional No [...] lesions 09/27/2016 None Full Exam - General [facility] Constitutional general appearance Development: well developed 07/19/2016 [...] GLUC MONITOR CONT PH YS I&R CPT-4: 90470 09/16/2017 GLUCOSE MONITORING CONT CPT-4: 82507 07/16/2017 TRIAMCINOLONE ACET I [place] NOS CPT-4: J3301 06/14/2017 DRAIN/INJECT JOINT/B URSA CPT-4: 35224 03/26/2017 TRIAMCINOLONE ACET I [place] NOS CPT-4: J3301 03/26/2017 URINALYSIS NONAUTO W /O SCOPE CPT-4: 39262 01/16/2017 THER/PROPH/DIAG INJ SC/IM CPT-4: 07279 01/16/2017 ROCEPHIN, PER 250 MG CPT-4: J0696 01/16/2017 DESTRUCT PREMALG LESION CPT-4: 79929 10/16/2016 TRIAMCINOLONE ACET I [place] NOS CPT-4: J3301 09/27/2016 ROCEPHIN, PER 250 MG CPT-4: J0696 09/27/2016 PPPS, SUBSEQ VISIT CPT- 4: G0439 07/10/2016 THER/PROPH/DIAG INJ SC/IM CPT-4: 49284 07/09/2016 TRIAMCINOLONE ACET I [place] NOS CPT-4: J3301 07/09/2016 ROCEPHIN, PER 250 MG CPT-4: J0696 07/09/2016 ADMIN PNEUMOCOCCAL V ACCINE SNOMED CT: 58717617 CPT-4: G0009 02/15/2015 PNEUMOCOCCAL VACC 13 LIMA IM Formatting Model/CDA Sections, Assigned to SNOMED CT: 98806079 CPT-4: 59995Mjsjcqb 02/15/2015 ADMIN INFLUENZA VIRU S VAC CPT-4: G0008 12/10/2014 FLU VACC 4 LIMA 3 YRS PLUS IM Formatting Model/CDA Sections, Assigned to SNOMED CT: 39881414 CPT-4: 48565Vhnmybd 12/10/2014 Vital Signs Date Vital 10/07/2017 Blood Pressure 1: 148/68 Code: 8480-6 BMI: 23.2 Code: 56368-6 Heart Rate 1: 68 bpm Height: 5'2" SpO2: 98% Weight: 127 lbs 09/16/2017 Blood Pressure 1: 134/80 Code: 8480-6 BMI: 22.5 Code: 27358-6 Heart Rate 1: 86 bpm Height: 5'2" SpO2: 98% Weight: 123 lbs 09/09/2017 Blood Pressure 1: 138/72 Code: 8480-6 Blood Pressure 1: 150/66 Code: 8480-6 BMI: 22.9 Code: 38182-3 Heart Rate 1: 81 bpm Height: 5'2" SpO2: 98% Weight: 125 lbs 07/16/2017 Blood Pressure 1: 144/68 Code: 8480-6 BMI: 21.9 Code: 28021-5 Heart Rate 1: 73 bpm Height: 5'2" SpO2: 98% Weight: 120 lbs 06/14/2017 Blood Pressure 1: 132/64 Code: 8480-6 BMI: 22.3 Code: 84787-6 Heart Rate 1: 77 bpm Height: 5'2" SpO2: 98% Temperature: 37.0 (C ) / 98.6 (F) Weight: 122 lbs 06/10/2017 Blood Pressure 1: 134/64 Code: 8480-6 BMI: 22.5 Code: 42574-6 Heart Rate 1: 78 bpm Height: 5'2" SpO2: 95% Weight: 123 lbs 05/13/2017 Blood Pressure 1: 140/66 Code: 8480-6 BMI: 21.6 Code: 59507-9 Heart Rate 1: 80 bpm Height: 5'2" SpO2: 98% Weight: 118 lbs 03/26/2017 Blood Pressure 1: 150/78 Code: 8480-6 BMI: 23.2 Code: 13975-8 Heart Rate 1: 73 bpm Height: 5'2" SpO2: 99% Weight: 127 lbs 02/19/2017 Blood Pressure 1: 126/64 Code: 8480-6 BMI: 22.9 Code: 84835-7 Heart Rate 1: 74 bpm Height: 5'2" SpO2: 99% Weight: 125 lbs 01/16/2017 Blood Pressure 1: 136/68 Code: 8480-6 Heart Rate 1: 97 bpm Height: 5'2" Respiratory Rate: 16 bpm Temperature: 37.5 (C ) / 99.5 (F) Weight: 01/08/2017 Blood Pressure 1: 144/60 Code: 8480-6 BMI: 23.0 Code: 82926-0 Heart Rate 1: 71 bpm Height: 5'2" SpO2: 96% Weight: 126 lbs 11/21/2016 Blood Pressure 1: 150/62 Code: 8480-6 BMI: 23.2 Code: 49376-8 Heart Rate 1: 73 bpm Height: 5'2" SpO2: 94% Weight: 127 lbs 10/16/2016 Blood Pressure 1: 142/82 Code: 8480-6 BMI: 22.9 Code: 41826-9 Heart Rate 1: 80 bpm Height: 5'2" SpO2: 96% Weight: 125 lbs 10/08/2016 Blood Pressure 1: 150/72 Code: 8480-6 Heart Rate 1: 65 bpm Height: 5'2" SpO2: 98% 10/01/2016 Blood Pressure 1: 152/76 Code: 8480-6 Heart Rate 1: 69 bpm Height: 5'2" SpO2: 97% 09/27/2016 Blood Pressure 1: 122/64 Code: 8480-6 BMI: 23.3 Code: 41943-9 Heart Rate 1: 80 bpm Height: 5'2" SpO2: 98% Weight: 127 lbs 8 oz 07/19/2016 Blood Pressure 1: 118/68 Code: 8480-6 BMI: 23.0 Code: 98554-9 Heart Rate 1: 62 bpm Height: 5'2" SpO2: 97% Weight: 126 lbs 07/10/2016 Blood Pressure 1: 132/64 Code: 8480-6 BMI: 23.4 Code: 74604-2 Heart Rate 1: 82 bpm Height: 5'2" SpO2: 98% Waist Measure (cm): 76 cm Weight: 128 lbs 07/09/2016 Blood Pressure 1: 132/64 Code: 8480-6 BMI: 23.4 Code: 22398-1 Heart Rate 1: 82 bpm Height: 5'2" SpO2: 98% Temperature: 37.2 (C ) / 98.9 (F) Weight: 128 lbs 06/06/2016 Blood Pressure 1: 144/66 Code: 8480-6 BMI: 23.4 Code: 33626-2 Heart Rate 1: 77 bpm Height: 5'2" SpO2: 97% Weight: 128 lbs 04/03/2016 Blood Pressure 1: 164/70 Code: 8480-6 BMI: 24.5 Code: 39029-1 Heart Rate 1: 80 bpm Height: 5'2" SpO2: 98% Weight: 134 lbs 12/26/2015 Blood Pressure 1: 130/72 Code: 8480-6 BMI: 24.1 Code: 29185-2 Heart Rate 1: 63 bpm Height: 5'2" SpO2: 98% Weight: 132 lbs 09/19/2015 Blood Pressure 1: 140/68 Code: 8480-6 BMI: 24.2 Code: 44779-4 Heart Rate 1: 96 bpm Height: 5'2" SpO2: 98% Weight: 132 lbs 8 oz 07/19/2015 Blood Pressure 1: 128/64 Code: 8480-6 BMI: 24.2 Code: 50931-5 Heart Rate 1: 66 bpm Height: 5'2" SpO2: 98% Weight: 132 lbs 8 oz 03/22/2015 Blood Pressure 1: 128/60 Code: 8480-6 BMI: 24.0 Code: 63670-6 Heart Rate 1: 57 bpm Height: 5'2" SpO2: 98% Weight: 131 lbs 02/15/2015 Blood Pressure 1: 132/56 Code: 8480-6 BMI: 23.8 Code: 48059-7 Heart Rate 1: 70 bpm Height: 5'2" SpO2: 98% Weight: 130 lbs 11/15/2014 Blood Pressure 1: 120/78 Code: 8480-6 BMI: 24.1 Code: 70438-2 Heart Rate 1: 79 bpm Height: 5'2" SpO2: 98% Weight: 132 lbs 08/13/2014 Blood Pressure 1: 140/60 Code: 8480-6 BMI: 24.0 Code: 23000-4 Heart Rate 1: 74 bpm Height: 5'2" Weight: 131 lbs Functional Status No Functional Status data History of Present Illness Symptom Name Status Resu lt Effective Date Notes diabetes mellitus Quality insulin dependent 10/07/2017 None [...] the roat 11/21/2016 None hypertension Quality whitney mattson [...] Encounters Encounter Performer Loca tion Codes Date ([id number]) Miscellaneou s no charge Diagnosis: Laceration without foreign body of right forearm, subsequent encounter[ICD10: S51.811D] Dominique Recinos MD, [facility] CPT-4: 60598 10/16/2017 ([id number]) Miscellaneou s no charge Diagnosis: Laceration without foreign body of right forearm, subsequent encounter[ICD10: S51.811D] Dominique Recinos MD, [facility] CPT-4: 42722 10/14/2017 ([id number]) Miscellaneou s no charge Diagnosis: Laceration without foreign body of right forearm, subsequent encounter[ICD10: S51.811D] Dominique Recinos MD, [facility] CPT-4: 82228 10/09/2017 ([id number]) 04356 EST. P ATIENT, LEVEL III Diagnosis: Type 2 diabetes mellitus with hyperglycemia[ICD10: E11.65] Dominique Recinos MD, [facility] CPT-4: 42769 10/07/2017 ([id number]) 77657 EST. P ATIENT, LEVEL III Diagnosis: Type 2 diabetes mellitus with hyperglycemia[ICD10: E11.65] Fatmata Recinos MD, [facility] CPT-4: 16807 09/16/2017 ([id number]) 64540 EST. P ATIENT, LEVEL III Diagnosis: Essential (primary) hypertension[ICD10: I10] Dominique Recinos MD, [facility] CPT-4: 95693 09/09/2017 ([id number]) Miscellaneou s no charge Diagnosis: Type 1 diabetes mellitus without complications[ICD10: E10.9] Fatmata Recinos MD, [facility] CPT-4: 45748 07/22/2017 ([id number]) 72189 EST. P ATIENT, LEVEL IV Diagnosis: Type 1 diabetes mellitus without complications[ICD10: E10.9] Diagnosis: Mixed hyperlipidemia[ICD10: E78.2] Diagnosis: Essential (primary) hypertension[ICD10: I10] Dominique Recinos MD, [facility] CPT-4: 65792 07/16/2017 ([id number]) 40228 EST. P ATIENT, LEVEL III Diagnosis: Cough[ICD10: R05] Diagnosis: Acute recurrent maxillary sinusitis[ICD10: J01.01] Maile Recinos MD, [facility] CPT-4: 42064 06/14/2017 ([id number]) 11593 EST. P ATIENT, LEVEL IV Diagnosis: Type 1 diabetes mellitus without complications[ICD10: E10.9] Diagnosis: Essential (primary) hypertension[ICD10: I10] Dominique Recinos MD, [facility] CPT-4: 11506 06/10/2017 ([id number]) 68093 EST. P ATIENT, LEVEL IV Diagnosis: Essential (primary) hypertension[ICD10: I10] Diagnosis: Type 1 diabetes mellitus without complications[ICD10: E10.9] Dominique Recinos MD, [facility] CPT-4: 81890 05/13/2017 29998 EST. PATIENT, LEVEL III Diagnosis: Sciatica, right side[ICD10: M54.31] Diagnosis: Low back pain[ICD10: M54.5] Fatmata Recinos MD, [facility] CPT-4: 62373 03/26/2017 ([id number]) 83449 EST. P ATIENT, LEVEL III Diagnosis: Type 1 diabetes mellitus without complications[ICD10: E10.9] Diagnosis: Essential (primary) hypertension[ICD10: I10] Dominique Recinos MD, [facility] CPT-4: 21715 02/19/2017 ([id number]) 35999 EST. P ATIENT, LEVEL IV Diagnosis: Fever presenting with conditions classified elsewhere[ICD10: R50.81] Diagnosis: Weakness[ICD10: R53.1] Diagnosis: Frequency of micturition[ICD10: R35.0] Diagnosis: Type 1 diabetes mellitus without complications[ICD10: E10.9] Dominique Recinos MD, [facility] CPT-4: 34281 01/16/2017 ([id number]) 98248 EST. P ATIENT, LEVEL IV Diagnosis: Type 1 diabetes mellitus without complications[ICD10: E10.9] Diagnosis: Essential (primary) hypertension[ICD10: I10] Dominique Recinos MD [facility] CPT-4: 41593 01/08/2017 ([id number]) 22938 EST. P ATIENT, LEVEL IV Diagnosis: Essential (primary) hypertension[ICD10: I10] Diagnosis: Type 1 diabetes mellitus without complications[ICD10: E10.9] Dominique Recinos MD, [facility] CPT-4: 30939 11/21/2016 ([id number]) 92620 EST. 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 P ATIENT, LEVEL III Diagnosis: Chronic obstructive pulmonary disease with (acute) exacerbation[ICD10: J44.1] Diagnosis: Cough[ICD10: R05] Maile Recinos MD, [facility] CPT-4: 84028 10/08/2016 ([id number]) Miscellaneou s no charge Diagnosis: Cough[ICD10: R05] Diagnosis: Chronic obstructive pulmonary disease with (acute) exacerbation[ICD10: J44.1] Maile Recinos MD, [facility] CPT-4: 52576 10/01/2016 ([id number]) 79890 EST. P ATIENT, LEVEL III Diagnosis: Cough[ICD10: R05] Diagnosis: Acute bronchitis, unspecified[ICD10: J20.9] Maile Recinos MD, [facility] CPT-4: 93850 09/27/2016 ([id number]) 42337 EST. P ATIENT, LEVEL III Diagnosis: Type 1 diabetes mellitus without complications[ICD10: E10.9] Dominique Recinos MD, [facility] CPT-4: 79555 07/19/2016 ([id number]) 31269 EST. P ATIENT, LEVEL IV Diagnosis: Essential (primary) hypertension[ICD10: I10] Diagnosis: Type 1 diabetes mellitus without complications[ICD10: E10.9] Diagnosis: Other allergic rhinitis[ICD10: J30.89] Diagnosis: Acute laryngopharyngitis[ICD10: J06.0] Dominique Recinos MD, [facility] CPT-4: 95558 07/09/2016 ([id number]) 89364 EST. P ATIENT, LEVEL IV Diagnosis: Essential (primary) hypertension[ICD10: I10] Diagnosis: Type 1 diabetes mellitus without complications[ICD10: E10.9] Diagnosis: Mixed hyperlipidemia[ICD10: E78.2] Dominique Recinos MD, [facility] CPT- 4: 73136 06/06/2016 09930 EST. PATIENT, LEVEL III Diagnosis: Other allergic rhinitis[ICD10: J30.89] Diagnosis: Acute laryngopharyngitis[ICD10: J06.0] Fatmata Recinos MD, [facility] CPT-4: 48291 04/03/2016 ([id number]) 39679 EST. P ATIENT, LEVEL IV Diagnosis: Type 1 diabetes mellitus without complications[ICD10: E10.9] Diagnosis: Essential (primary) hypertension[ICD10: I10] Diagnosis: Pain in right hand[ICD10: M79.641] Dominique Recinos MD, [facility] CPT- 4: 01161 12/26/2015 ([id number]) 68609 EST. P ATIENT, LEVEL IV Diagnosis: Type 1 diabetes mellitus without complications[ICD10: E10.9] Diagnosis: Essential (primary) hypertension[ICD10: I10] Dominique Recinos MD, [facility] CPT-4: 46486 09/19/2015 ([id number]) 67617 EST. P ATIENT, LEVEL IV Diagnosis: Essential (primary) hypertension[ICD10: I10] Diagnosis: Mixed hyperlipidemia[ICD10: E78.2] Diagnosis: Type 1 diabetes mellitus without complications[ICD10: E10.9] Dominique Recinos MD, [facility] CPT-4: 27168 07/19/2015 ([id number]) 66755 EST. 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 P ATIENT, LEVEL IV Diagnosis: ESSENTIAL HYPERTENSION[ICD9: 401.9] Diagnosis: DIABETES TYPE II[ICD9: 250.00] Diagnosis: FALL FROM LADDER[ICD9: E881.0] Diagnosis: Right hip pain[ICD9: 719.45] Diagnosis: Left hand pain[ICD9: 729.5] Diagnosis: Sacroiliac joint pain[ICD9: 724.6] Dominique Recinos MD, [facility] CPT- 4: 73064 11/15/2014 ([id number]) OFFICE VISI T, NEW - LEVEL 4 Diagnosis: DIABETES TYPE II[ICD9: 250.00] Diagnosis: ESSENTIAL HYPERTENSION[ICD9: 401.9] Diagnosis: HYPERLIPIDEMIA[ICD9: 272.4] [facility] CPT-4: 86452 08/13/2014 Plan of Care Planned Activity Notes C odes Status Date Patient Education: Patient Medication Summary Completed 10/16/2017 [...] glucose. 10/07/2017 Appointment: Dominique Recinos WPtel: [phone] [facility] (15 min) Moderate 10/07/2017 Patient Education: Patient [...] clinic. 09/16/2017 Appointment: [facility]ann [phone] [place] (15 min) Moderate 09/16/2017 Patient Education: Patient [...] home. 09/09/2017 Appointment: [phone] [facility] [place] (15 min) Moderate 09/09/2017 Patient Education: Patient Medication Summary Completed 09/09/2017 Appointment: Maile Randolph WPtel: [phone] [phone] [place] (15 min) Moderate 09/06/2017 Appointment: [facility]inos [facility]Ptel[phone] [facility] [place] (15 min) Moderate 09/05/2017 Appointment: Fatmata Spann [facility]Ptel: [phone] [place] [place] (15 min) Moderate 07/22/2017 Patient Education: [...] less controlled. ipro placed today - by [employer]PERVISOR - pt to RTC on Saturday for [...] less controlled. ipro placed today - by [employer] SUPERVISOR - pt to RTC on Saturday for [...] medications. 07/16/2017 Appointment: Dominique Recinos WPtel: [phone] [facility] (15 min) Moderate 07/16/2017 Patient Education: Patient Medication Summary Completed 07/16/2017 Visit Plan: Sinusitis - Pt has acut e infection - pain in face, maxillary region, Pt informed to use decongestant, RX given to patient, sinus rinses also recommended. Call if symptoms do not show improvement. 06/14/2017 Appointment: Maile Randolph WPtel: [phone] [phone] [place] (30 min) Complex 06/14/2017 Patient [...] home. 06/10/2017 Appointment: Dominique Recinos WPtel: [phone] [facility] (15 min) Moderate 06/10/2017 Patient Education: Patient Medication Summary Completed 06/10/2017 Appointment: Fatmata Spann WPtel: [facility] (30 min) Complex 06/03/2017 Visit Plan: [...] less controlled. 05/13/2017 Appointment: Dominique Recinos WPtel: [facility] [place] (15 min) Moderate 05/13/2017 Patient Education: Patient Medication Summary Completed 05/13/2017 Appointment: Dominique Recinos WPtel: [facility] [place] (30 min) Complex 05/03/2017 Appointment: Fatmata Spann WPtel: [facility] [place] [place] (15 min) Moderate 04/12/2017 Appointment: Dominique Recinos WPtel: [facility] [place] (15 min) Moderate 04/11/2017 Appointment: Dominique Recinos WPtel: [facility] [place] (15 min) Moderate 04/10/2017 Appointment: Dominique Recinos WPtel: [facility] [place] (15 min) Moderate 04/02/2017 Visit Plan: [...] injection. 03/26/2017 Appointment: Fatmata Spann WPtel: [phone] [facility] [place] [place] (30 min) Complex 03/26/2017 Appointment: Dominique Recinos WPtel: [phone] [facility] [place] (15 min) Moderate 03/26/2017 Patient Education: [...] at home. 02/19/2017 Appointment: Dominique Recinos WPtel: [phone] [facility] [place] (15 min) Moderate 02/19/2017 Patient Education: Patient Medication Summary Completed 02/19/2017 Patient Education: Hypertension Completed 02/19/2017 Appointment: Dominique Recinos WPtel: [facility] (15 min) Moderate 02/12/2017 Visit Plan: [...] above 100F. 01/16/2017 Appointment: Dominique Recinos WPtel: [address] [place], [place] [phone] (15 min) Moderate 01/16/2017 Patient Education: Patient [...] at home. 01/08/2017 Appointment: Dominique Recinos WPtel: [facility] [place] (15 min) Moderate 01/08/2017 Patient Education: Patient Medication Summary Completed 01/08/2017 Patient Education: Hypertension Completed 01/08/2017 Appointment: Dominique Recinos WPtel: [facility] [place] (15 min) Moderate 12/31/2016 Appointment: Dominique Recinos WPtel: [facility] [place] (15 min) Moderate 12/18/2016 Visit [...] less controlled. 11/21/2016 Appointment: Dominique Recinos WPtel: [address] [place] [address] [place] (15 min) Moderate 11/21/2016 Patient Education: [...] potatoes, creamy coleslaw, etc. -- referral to addiction specialist. Hyperlipidemia - pt has been counseled [...] etc. 10/16/2016 Appointment: Dominique Recinos WPtel: [phone] [facility] (15 min) Moderate 10/16/2016 Patient Education: Patient Medication Summary Completed 10/16/2016 Patient Education: Hypertension Completed 10/16/2016 Patient Education: Patient Medication Summary Completed 10/09/2016 Care Plan: Free T4 Pending 10/09/2016 Visit Plan: COPD exacerbation-cough -symptoms resolved-call if symptoms return-monitor blood sugars closely for the next few days and discussed diet. 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 10/01/2016 Appointment: Maile Randolph WPtel: [phone] [phone] (30 min) Complex 10/01/2016 Patient Education: Patient Medication Summary Completed 10/01/2016 Visit Plan: Bronchitis - acute case of bronchitis identified. Pt has been given antibiotics, breathing treatments as appropriate, and pt has been instructed to call if symptoms are not improved, or if symptoms acutely worsen. 09/27/2016 Appointment: Maile Randolph WPtel: [phone] [phone] (30 min) Complex 09/27/2016 Patient Education: [...] controlled. 07/19/2016 Appointment: Dominique Recinos WPtel: [phone] [facility] (15 min) Moderate 07/19/2016 Patient Education: [...] care surrogate. 07/10/2016 Appointment: Fatmata Spann WPtel: [facility] [place] [address] - Annual Wellness Visit 07/10/2016 Patient Education: [...] not improving 07/09/2016 Appointment: Dominique Recinos WPtel: [facility] (15 min) Moderate 07/09/2016 Patient Education: Patient Medication Summary Completed 07/09/2016 Patient Education: Hypertension Completed 07/09/2016 Appointment: Dominique Recinos WPtel: [facility] (15 min) Moderate 06/26/2016 Visit Plan: [...] dications. 06/06/2016 Appointment: Dominique Recinos WPtel: [phone] [facility] (15 min) Moderate 06/06/2016 Patient Education: Patient Medication Summary Completed 06/06/2016 Appointment: Dominique Recinos WPtel: [phone] [facility] (15 min) Moderate 04/30/2016 Visit Plan: URI [...] Completed 12/26/2015 Appointment: Dominique Recinos WPtel: [phone] [facility] (15 min) Moderate 12/19/2015 Visit Plan: [...] home. 09/19/2015 Appointment: Dominique Recinos WPtel: [phone] [facility] [place] (15 min) Moderate 09/19/2015 Patient [...] me dications. 07/19/2015 Appointment: Dominique Recinos WPtel: [phone] [facility] (15 min) Moderate 07/19/2015 Patient Education: [...] enzyme q10. Back pain - referral to [facility] physical therapy for further eval and treat. 03/22/2015 Appointment: Dominique Recinos WPtel: [phone] [facility] [place] (15 min) Moderate 03/22/2015 Patient Education: Patient Medication Summary Completed 03/22/2015 Care Plan: Referral Order SNOMED-CT : [id number] Ordered 03/22/2015 Visit Plan: Hypertension - well [...] me dications. 08/13/2014 Appointment: Dominique Recinos WPtel: [phone] [facility] [place] (S) New Patient 08/13/2014 Patient [...] potatoes, creamy coleslaw, etc. -- referral to addiction specialist. Hyperlipidemia - pt has been counseled [...] change in blood pressure readings at home. kenalog . Sinusitis - Pt has acute infection - p ain in face, maxillary region, Pt informed to use decongestant, RX given to patient, sinus rinses also recommended. Call if symptoms do not show improvement. 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 Hypertension - well [...] less controlled. ipro placed today - by [employer] SUPERVISOR - pt to RTC on Saturday for [...] less controlled. ipro placed today - by [employer] SUPERVISOR - pt to RTC on Saturday for [...]
--- OUTSIDE RECORDS SUMMARY | 2019-06-14 17:26 | XMS REPORT | Continuity of Care Document ---
Author Organization Unknown Address Unknown Phone Unavailable Allergies Active Description Code Type Severity Reaction Onset Reported/Identified Relationship to Patient Clinical Status Yes NKANo Known Allergies NKA Miscellaneous Allergy Unknown N/A 03/31/2017 Medications There is no data. Problems Date Dx Coded Attending Type Code Diagnosis Diagnosed By 01/31/45 AR MCKEON, YUNIOR Acosta Ot E10. 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 01/01/2011 Ot V58.67 JOVNANI G-TERM (CURRENT) USE OF INSULIN 01/01/2011 Ot V58.69 OTH MED,LT,CURRENT USE 01/01/2011 Ot 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 04/29/2011 Ot 785.1 PALP ITATIONS 06/05/2012 Ot 008.8 AME L ENTERITIS NOS 06/05/2012 Ot 240.9 GOIT ER NOS 06/05/2012 Ot 250.80 AMANDA B W OTH SPEC MANIFEST, TYPE II OR UNS 06/05/2012 Ot 401.9 HYPE RTENSION NOS 06/05/2012 Ot 414.01 COR ONARY ATHEROSCLEROSIS OF [place] CORON 06/05/2012 Ot 780.2 SYNC OPE AND COLLAPSE 06/05/2012 Ot 920 CONTUS ION FACE/SCALP/NCK 06/05/2012 Ot E849.0 ACC IDENT IN HOME 06/05/2012 Ot E888.9 FAL L NOS 06/05/2012 Ot E932.3 ADV EFF INSULIN/ANTIDIAB 06/05/2012 Ot V45.82 PER CUTANEOUS TRANSLUM CORON ANGIOPLASTY 06/05/2012 Ot V58.67 JOVANNI G-TERM (CURRENT) USE OF INSULIN 03/03/2014 Ot 414.00 [...] 793.80 03/03/2014 MELISSA MCKEON, DORIAN Cortes Ot 240 .9 03/03/2014 MELISSA MCKEON, DORIAN P Ot 241 .0 03/03/2014 SIENA JOVEL MD Ot V67.9 03/03/2014 [place] PRESIDENT EDUCATIONAL INSTITUTION Ot 250.00 03/03/2014 [place] L PRESIDENT EDUCATIONAL INSTITUTION Ot 272.4 03/03/2014 TOM MARQUES L PRESIDENT EDUCATIONAL INSTITUTION Ot 414.00 03/03/2014 TOM MARQUES L PRESIDENT EDUCATIONAL INSTITUTION Ot V58.69 03/03/2014 YECENIA MCKEON FACC, ALI FACP CCDS Ot 414.00 03/03/2014 CANDIE FRANCIS APRN Ot 241.0 03/03/2014 MELISSA MCKEON, DORIAN P Ot 240 .9 03/03/2014 MELISSA MCKEON, DORIAN Cortes Ot 780.79 03/03/2014 YECENIA MCKEON FACC, ALI [...] 03/03/2014 SIENA JOVEL MD Ot 272.4 03/03/2014 MELISSA MCKEON, DORIAN P Ot 241 .0 03/03/2014 MED MCKEON, SIENA Florez Ot V76.12 04/03/2014 JERALDTOM PRESIDENT EDUCATIONAL INSTITUTION Ot 272.4 07/23/2014 MELISSA MCKEON, DORIAN Cortes Ot 241 .1 08/18/2014 MELISSA MCKEON, DORIAN Cortes Ot 241 .1 09/20/2014 [place] L PRESIDENT EDUCATIONAL INSTITUTION Ot 272.4 09/20/2014 [place] PRESIDENT EDUCATIONAL INSTITUTION Ot 414.00 10/07/2014 [place] PRESIDENT EDUCATIONAL INSTITUTION Ot 272.4 10/07/2014 [place] PRESIDENT EDUCATIONAL INSTITUTION Ot 414.00 11/18/2014 AR MCKEON, YUNIOR A Ot 719.45 11/18/2014 AR MCKEON, YUNIOR A Ot 724.2 11/18/2014 AR MCKEON, YUNIOR A Ot 729.5 11/18/2014 AR MCKEON, YNUIOR A Ot V15.88 12/08/2014 AR MCKEON, YUNIOR [...] 793.80 03/22/2015 MELISSA MCKEON, DORIAN Cortes Ot 240 .9 03/22/2015 MELISSA MCKEON, DORIAN Cortes Ot 241 .0 03/22/2015 MED MCKEON, SIENA Florez Ot V67.9 03/22/2015 TOM MARQUES PRESIDENT EDUCATIONAL INSTITUTION Ot 250.00 03/22/2015 TOM MARQUES PRESIDENT EDUCATIONAL INSTITUTION Ot 272.4 03/22/2015 [place] PRESIDENT EDUCATIONAL INSTITUTION Ot 414.00 03/22/2015 TOM MARQUES PRESIDENT EDUCATIONAL INSTITUTION Ot V58.69 03/22/2015 YECENIA MCKEON FACC, ALI FACP CCDS Ot 414.00 03/22/2015 CANDIE FRANCIS APRN Ot 241.0 03/22/2015 MELISSA MCKEON, DORIAN Cortes Ot 240 .9 03/22/2015 MELISSA MCKEON, DORIAN P Ot 780.79 [...] FACC, ALI FACP CCDS Ot 362.81 03/22/2015 YECEINA MCKEON FACC, ALI FACP CCDS Ot 401.9 03/22/2015 YECENIA MCKEON FACC, ALI FACP CCDS Ot 414.00 03/22/2015 YECENIA MCKEON FACC, ALI FACP CCDS Ot 427.0 03/22/2015 YECENIA MCKEON FACC, ALI FACP CCDS Ot 447.9 03/22/2015 YECENIA MCKEON FACC, ALI FACP CCDS Ot 733.00 03/22/2015 YECENIA MCKEON FACC, ALI FACP CCDS Ot 745.5 03/22/2015 MED MCKEON, SIENA Florez Ot 250.00 03/22/2015 MED MCKEON, SIENA lForez Ot 272.4 03/22/2015 MELISSA MCKEON, DORIAN Cortes Ot 241 .0 03/22/2015 MED MCKEON, SIENA Florez Ot V76.12 03/22/2015 TOM MARQUES PRESIDENT EDUCATIONAL INSTITUTION Ot 272.4 03/22/2015 MELISSA MCKEON, DORIAN P Ot 241 .1 03/22/2015 TOM MARQUES L PRESIDENT EDUCATIONAL INSTITUTION Ot 272.4 03/22/2015 TOM MARQUES PRESIDENT EDUCATIONAL INSTITUTION Ot 414.00 03/22/2015 AR MCKEON, YUNIOR Acosta [...] 793.80 03/30/2015 MELISSA MCKEON, DORIAN Cortes Ot 240 .9 03/30/2015 MELISSA MCKEON, DORIAN Cortes Ot 241 .0 03/30/2015 MED MCKEON, SIENA Florez Ot V67.9 03/30/2015 TOM MARQUES PRESIDENT EDUCATIONAL INSTITUTION Ot 250.00 03/30/2015 TOM MARQUES PRESIDENT EDUCATIONAL INSTITUTION Ot 272.4 03/30/2015 TOM MARQUES PRESIDENT EDUCATIONAL INSTITUTION Ot 414.00 03/30/2015 TOM MARQUES PRESIDENT EDUCATIONAL INSTITUTION Ot V58.69 03/30/2015 YECENIA MCKEON FACC, ALI FACP CCDS Ot 414.00 03/30/2015 CANDIE FRANCIS APRN Ot 241.0 03/30/2015 MELISSA MCKEON, DORIAN Cortes Ot 240 .9 03/30/2015 MELISSA MCKEON, DORIAN Cortes Ot 780.79 03/30/2015 YECENIA MCKEON FACC, ALI FACP CCDS Ot 250.00 03/30/2015 YECENIA MCKEON FACC, ALI FACP CCDS Ot 272.4 03/30/2015 YECENIA MCKEON FACC, ALI FACP CCDS Ot 401.9 03/30/2015 YECENIA KNOXC, ALI FACP CCDS Ot 414.00 03/30/2015 YECENIA MCKEON FACC, ALI FACP CCDS Ot 427.0 03/30/2015 YECENIA MCKEON FACC, ALI FACP CCDS Ot 745.5 03/30/2015 YECENIA KNOXC, ALI FACP CCDS Ot 250.00 03/30/2015 YECENIA MCKEON FACC, ALI FACP CCDS Ot 272.4 03/30/2015 YECENIA MCKEON FACC, ALI FACP CCDS Ot 362.81 03/30/2015 YECENIA MD FACC, ALI FACP CCDS Ot 401.9 03/30/2015 YECENIA MCKEON FACC, ALI FACP CCDS Ot 414.00 03/30/2015 YECENIA MCKEON FACC, ALI FACP CCDS Ot 427.0 03/30/2015 YECENIA MCKEON FACC, ALI FACP CCDS Ot 447.9 03/30/2015 YECENIA MCKEON FACC, ALI FACP CCDS Ot 733.00 03/30/2015 YECENIA MCKEON FAC, ALI FACP CCDS Ot 745.5 03/30/2015 MED MCKEON, SIENA Florez Ot 250.00 03/30/2015 MED MCKEON, SIENA M Ot 272.4 03/30/2015 MELISSA MCKEON, DORIAN Cortes Ot 241 .0 03/30/2015 MED MCKEON, SIENA M Ot V76.12 03/30/2015 TOM MARQUES PRESIDENT EDUCATIONAL INSTITUTION Ot 272.4 03/30/2015 DORIAN TORRES MD P Ot 241 .1 03/30/2015 TOM MARQUES PRESIDENT EDUCATIONAL INSTITUTION Ot 272.4 03/30/2015 TOM MARQUES PRESIDENT EDUCATIONAL INSTITUTION Ot 414.00 03/30/2015 AR MCKEON, YUNIOR Acosta Ot 719.45 03/30/2015 AR MCKEON, YUNIOR Acosta Ot 724.2 03/30/2015 AR MCKEON, YUNIOR Acosta Ot 729.5 03/30/2015 YUNIOR JOYNER MD Ot V15.88 03/30/2015 AR MCKEON, YUNIOR Acosta Ot V76.12 04/19/2015 YUNIOR JOYNER MD Ot M54.9 04/29/2015 YECENIA MCKEON FAC, ALI FACP CCDS Ot E78.5 04/29/2015 YECENIA MCKEON FAC, ALI FACP CCDS Ot I25.10 05/30/2015 YUNIOR JOYNER MD Ot 724.5 BACKACHE NOS 05/30/2015 YUNIOR JOYNER MD Ot M54.9 DORSALGIA, UNSPECIFIED 08/18/2015 DORIAN TORRES MD Ot E04 .2 NONTOXIC MULTINODULAR GOITER 09/07/2015 DORIAN TORRES MD Ot E04 .2 NONTOXIC MULTINODULAR GOITER 09/21/2015 DORIAN TORRES MD P Ot E04 .2 NONTOXIC MULTINODULAR GOITER 11/16/2015 [place] L PRESIDENT EDUCATIONAL INSTITUTION Ot E78.4 OTHER HYPERLIPIDEMIA 11/16/2015 BAIJUAN DAVID TOM L PRESIDENT EDUCATIONAL INSTITUTION Ot I 10 ESSENTIAL (PRIMARY) HYPERTENSION 11/16/2015 BAIMA TOM L PRESIDENT EDUCATIONAL INSTITUTION Ot I25.10 ATHSCL HEART DISEASE OF [place] CORONARY 11/16/2015 BAIMA TOM L PRESIDENT EDUCATIONAL INSTITUTION Ot I47.1 SUPRAVENTRICULAR TACHYCARDIA 11/16/2015 BAIMA TOM L PRESIDENT EDUCATIONAL INSTITUTION Ot R53.81 OTHER MALAISE 12/07/2015 BAIMA TOM L PRESIDENT EDUCATIONAL INSTITUTION Ot E78.4 OTHER HYPERLIPIDEMIA 12/07/2015 BAIMA, TOM L PRESIDENT EDUCATIONAL INSTITUTION Ot I 10 ESSENTIAL (PRIMARY) HYPERTENSION 12/07/2015 BAIMA TOM L PRESIDENT EDUCATIONAL INSTITUTION Ot I25.10 ATHSCL HEART DISEASE OF [place] CORONARY 12/07/2015 BAIMA TOM L PRESIDENT EDUCATIONAL INSTITUTION Ot I47.1 SUPRAVENTRICULAR TACHYCARDIA 12/07/2015 BAIMA TOM L PRESIDENT EDUCATIONAL INSTITUTION Ot R53.81 OTHER MALAISE 12/14/2015 BAIMA TOM L PRESIDENT EDUCATIONAL INSTITUTION Ot E78.4 OTHER HYPERLIPIDEMIA 12/14/2015 BAIMA, TOM L PRESIDENT EDUCATIONAL INSTITUTION Ot I 10 ESSENTIAL (PRIMARY) HYPERTENSION 12/14/2015 BAIMA TOM L PRESIDENT EDUCATIONAL INSTITUTION Ot I25.10 ATHSCL HEART DISEASE OF [place] CORONARY 12/14/2015 BAIMA TOM L PRESIDENT EDUCATIONAL INSTITUTION Ot I47.1 SUPRAVENTRICULAR TACHYCARDIA 12/14/2015 BAIMA TOM L PRESIDENT EDUCATIONAL INSTITUTION Ot R53.81 OTHER MALAISE 12/28/2015 Ot 272.4 HYPE RLIPIDEMIA NEC/NOS 12/28/2015 Ot 414.01 COR ONARY ATHEROSCLEROSIS OF [place] CORON 12/28/2015 Ot 433.10 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 12/28/2015 Ot 443.9 RIN PH VASCULAR DIS NOS 12/28/2015 Ot V58.69 OTH MED,LT,CURRENT USE 12/28/2015 Ot 272.4 HYPE RLIPIDEMIA NEC/NOS 12/28/2015 Ot 414.00 COR ON ATHEROSCLER NOS TYPE VESSEL, NATIV 12/28/2015 Ot 433.10 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 12/28/2015 Ot V58.69 OTH MED,LT,CURRENT USE 12/28/2015 Ot V76.12 OTH SCREEN MAMMO- MALIGN NEOPLASM OF TERRA 12/28/2015 Ot 785.1 PALP ITATIONS 12/28/2015 Ot 272.4 HYPE RLIPIDEMIA NEC/NOS 12/28/2015 Ot 414.00 COR ON ATHEROSCLER NOS TYPE VESSEL, NATIV 12/28/2015 Ot V58.69 OTH MED,LT,CURRENT USE 12/28/2015 Ot 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 12/28/2015 Ot 825.25 FX METATARSAL- CLOSED 12/28/2015 Ot E000.8 OTH ER EXTERNAL CAUSE STATUS 12/28/2015 Ot E849.0 ACC IDENT IN HOME 12/28/2015 Ot 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 12/28/2015 Ot 272.4 HYPE RLIPIDEMIA NEC/NOS 12/28/2015 Ot 401.9 HYPE RTENSION NOS 12/28/2015 Ot 414.00 COR ON ATHEROSCLER NOS TYPE VESSEL, NATIV 12/28/2015 Ot V58.69 OTH MED,LT,CURRENT USE 12/28/2015 Ot 793.82 INC ONCLUSIVE MAMMOGRAM 12/28/2015 Ot V76.12 OTH SCREEN MAMMO- MALIGN NEOPLASM OF TERRA 12/28/2015 Ot 793.80 UNS PEC ABNORMAL MAMMOGRAM 12/28/2015 MELISSA MCKEON, DORIAN Cortes Ot 240 .9 GOITER NOS 12/28/2015 MELISSA MCKEON, DORIAN Cortes Ot 241 .0 NONTOX UNINODULAR GOITER 12/28/2015 MED MCKEON, SIENA Florez Ot V67.9 FOLLOW-UP EXAM NOS 12/28/2015 TOM MARQUES PRESIDENT EDUCATIONAL INSTITUTION Ot 250.00 DIAB CASSIA WO COMPL, TYPE II OR UNSPEC TY 12/28/2015 TOM MARQUES PRESIDENT EDUCATIONAL INSTITUTION Ot 272.4 HYPERLIPIDEMIA NEC/NOS 12/28/2015 TOM MARQUES PRESIDENT EDUCATIONAL INSTITUTION Ot 414.00 CORON ATHEROSCLER NOS TYPE VESSEL, NATIV 12/28/2015 TOM MARQUES PRESIDENT EDUCATIONAL INSTITUTION Ot V58.69 OTH MED,LT,CURRENT USE 12/28/2015 YECENIA MCKEON FAC, CHEN FACSophia CCDS Ot 414.00 CORON ATHEROSCLER NOS TYPE VESSEL, NATIV 12/28/2015 CANDIE FRANCIS APRN Ot 241.0 NONTOX UNINODULAR GOITER 12/28/2015 DORIAN TORRES MD Ot 240 .9 GOITER NOS 12/28/2015 DORIAN TORRES MD Ot [...] HYPERLIPIDEMIA NEC/NOS 12/28/2015 DORIAN TORRES MD Ot 241 .0 NONTOX UNINODULAR GOITER 12/28/2015 SIENA JOVEL MD Ot V76.12 OTH SCREEN MAMMO-MALIGN NEOPLASM OF TERRA 12/28/2015 BAIMA, TOM L PRESIDENT EDUCATIONAL INSTITUTION Ot 272.4 HYPERLIPIDEMIA NEC/NOS 12/28/2015 MELISSA MCKEON, DORIAN P Ot 241 .1 NONTOX MULTINODUL GOITER 12/28/2015 ELVISMA TOM L PRESIDENT EDUCATIONAL INSTITUTION Ot 272.4 HYPERLIPIDEMIA NEC/NOS 12/28/2015 ELVISMA, TOM L PRESIDENT EDUCATIONAL INSTITUTION Ot 414.00 CORON ATHEROSCLER NOS TYPE VESSEL, NATIV 12/28/2015 AR MCKEON, YUNIOR Acosta Ot 719.45 JOINT PAIN-PELVIS 12/28/2015 YUNIOR JOYNER MD Ot 724.2 LUMBAGO 12/28/2015 YUNIOR JOYNER MD Ot 729.5 PAIN IN LIMB 12/28/2015 AR MCKEON, YUNIOR Acosta Ot V15.88 HISTORY OF FALL 12/28/2015 YUNIOR JOYNER MD Ot V76.12 OTH SCREEN MAMMO-MALIGN NEOPLASM OF TERRA 12/28/2015 YECENIA MCKEON FACC, ALI FACP CCDS Ot E78.5 HYPERLIPIDEMIA, UNSPECIFIED 12/28/2015 YECENIA MCKEON FACC, ALI FACP CCDS Ot I25.10 ATHSCL HEART DISEASE OF [place] CORONARY 12/28/2015 MELISSA MCKEON, DORIAN Cortes Ot E04 .2 NONTOXIC MULTINODULAR GOITER 12/28/2015 JUAN CARLOS MARQUESHER L PRESIDENT EDUCATIONAL INSTITUTION Ot E78.4 OTHER HYPERLIPIDEMIA 12/28/2015 JERALD TOM L PRESIDENT EDUCATIONAL INSTITUTION Ot I 10 ESSENTIAL (PRIMARY) HYPERTENSION 12/28/2015 JERALD TOM L PRESIDENT EDUCATIONAL INSTITUTION Ot I25.10 ATHSCL HEART DISEASE OF [place] CORONARY 12/28/2015 JUAN CARLOS MARQUESHER L PRESIDENT EDUCATIONAL INSTITUTION Ot I47.1 SUPRAVENTRICULAR TACHYCARDIA 12/28/2015 JERALD TOM L PRESIDENT EDUCATIONAL INSTITUTION Ot R53.81 OTHER MALAISE 12/29/2015 ELVISMA, TOM L PRESIDENT EDUCATIONAL INSTITUTION Ot E78.4 OTHER HYPERLIPIDEMIA 12/29/2015 BAIMA, TOM L PRESIDENT EDUCATIONAL INSTITUTION Ot I25.10 ATHSCL HEART DISEASE OF [place] CORONARY 12/29/2015 ELVISMA TOM L PRESIDENT EDUCATIONAL INSTITUTION Ot 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 01/17/2016 BAIMA TOM L PRESIDENT EDUCATIONAL INSTITUTION Ot E78.4 OTHER HYPERLIPIDEMIA 01/17/2016 ELVISMA, TOM L PRESIDENT EDUCATIONAL INSTITUTION Ot I25.10 ATHSCL HEART DISEASE OF [place] CORONARY 01/17/2016 TOM MARQUES PRESIDENT EDUCATIONAL INSTITUTION Ot 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 02/08/2016 Ot 272.4 HYPE RLIPIDEMIA NEC/NOS 02/08/2016 Ot 414.00 COR ON ATHEROSCLER NOS TYPE VESSEL, NATIV 02/08/2016 Ot 433.10 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 02/08/2016 Ot V58.69 OTH MED,LT,CURRENT USE 02/08/2016 Ot V76.12 OTH SCREEN MAMMO- MALIGN NEOPLASM OF TERRA 02/08/2016 Ot 785.1 PALP ITATIONS 02/08/2016 Ot 272.4 HYPE RLIPIDEMIA NEC/NOS 02/08/2016 Ot 414.00 COR ON ATHEROSCLER NOS TYPE VESSEL, NATIV 02/08/2016 Ot V58.69 OTH MED,LT,CURRENT USE 02/08/2016 Ot 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 02/08/2016 Ot 825.25 FX METATARSAL- CLOSED 02/08/2016 Ot E000.8 OTH ER EXTERNAL CAUSE STATUS 02/08/2016 Ot E849.0 ACC IDENT IN HOME 02/08/2016 Ot 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 02/08/2016 Ot 272.4 HYPE RLIPIDEMIA NEC/NOS 02/08/2016 Ot 401.9 HYPE RTENSION NOS 02/08/2016 Ot 414.00 COR ON ATHEROSCLER NOS TYPE VESSEL, NATIV 02/08/2016 Ot V58.69 OTH MED,LT,CURRENT USE 02/08/2016 Ot 793.82 INC ONCLUSIVE MAMMOGRAM 02/08/2016 Ot V76.12 OTH SCREEN MAMMO- MALIGN NEOPLASM OF TERRA 02/08/2016 Ot 793.80 UNS PEC ABNORMAL MAMMOGRAM 02/08/2016 MELISSA MCKEON, DORIAN Cortes Ot 240 .9 GOITER NOS 02/08/2016 MELISSA MCKEON, DORIAN Cortes Ot 241 .0 NONTOX UNINODULAR GOITER 02/08/2016 MED MCKEON, SIENA Florez Ot V67.9 FOLLOW-UP EXAM NOS 02/08/2016 TOM MARQUES PRESIDENT EDUCATIONAL INSTITUTION Ot 250.00 DIAB CASSIA WO COMPL, TYPE II OR UNSPEC TY 02/08/2016 TOM MARQUES PRESIDENT EDUCATIONAL INSTITUTION Ot 272.4 HYPERLIPIDEMIA NEC/NOS 02/08/2016 TOM MARQUES PRESIDENT EDUCATIONAL INSTITUTION Ot 414.00 CORON ATHEROSCLER NOS TYPE VESSEL, NATIV 02/08/2016 TOM MARQUES PRESIDENT EDUCATIONAL INSTITUTION Ot V58.69 OTH MED,LT,CURRENT USE 02/08/2016 YECENIA MCKEON FACC, ALI FACP CCDS Ot 414.00 CORON ATHEROSCLER NOS TYPE VESSEL, NATIV 02/08/2016 TITO CANDIE Bernarda BAUDILIO Ot 241.0 NONTOX UNINODULAR GOITER 02/08/2016 DORIAN TORRES MD Ot 240 .9 GOITER NOS 02/08/2016 DORIAN TORRES MD Ot [...] HYPERLIPIDEMIA NEC/NOS 02/08/2016 DORIAN TORRES MD Ot 241 .0 NONTOX UNINODULAR GOITER 02/08/2016 SIENA JOVEL MD Ot V76.12 OTH SCREEN MAMMO-MALIGN NEOPLASM OF TERRA 02/08/2016 TOM MARQUES L PRESIDENT EDUCATIONAL INSTITUTION Ot 272.4 HYPERLIPIDEMIA NEC/NOS 02/08/2016 DORIAN TORRES MD Ot 241 .1 NONTOX MULTINODUL GOITER 02/08/2016 TOM MARQUES L PRESIDENT EDUCATIONAL INSTITUTION Ot 272.4 HYPERLIPIDEMIA NEC/NOS 02/08/2016 TOM MARQUES PRESIDENT EDUCATIONAL INSTITUTION Ot 414.00 CORON ATHEROSCLER NOS TYPE VESSEL, NATIV 02/08/2016 AR MCKEON, YUNIOR Acosta Ot 719.45 JOINT PAIN-PELVIS 02/08/2016 YUNIOR JOYNER [...] CCDS Ot I25.10 ATHSCL HEART DISEASE OF [place] CORONARY 02/08/2016 DORIAN TORRES MD Ot E04 .2 NONTOXIC MULTINODULAR GOITER 02/08/2016 TOM MARQUES L PRESIDENT EDUCATIONAL INSTITUTION Ot E78.4 OTHER HYPERLIPIDEMIA 02/08/2016 TOM MARQUES L PRESIDENT EDUCATIONAL INSTITUTION Ot I 10 ESSENTIAL (PRIMARY) HYPERTENSION 02/08/2016 JUAN CARLOS MARQUESHER L PRESIDENT EDUCATIONAL INSTITUTION Ot I25.10 ATHSCL HEART DISEASE OF [place] CORONARY 02/08/2016 TOM MARQUES L PRESIDENT EDUCATIONAL INSTITUTION Ot I47.1 SUPRAVENTRICULAR TACHYCARDIA 02/08/2016 TOM MARQUES L PRESIDENT EDUCATIONAL INSTITUTION Ot R53.81 OTHER MALAISE 02/08/2016 TOM MARQUES L PRESIDENT EDUCATIONAL INSTITUTION Ot E78.4 OTHER HYPERLIPIDEMIA 02/08/2016 TOM MARQUES Ot I25.10 ATHSCL HEART DISEASE OF [place] CORONARY 02/08/2016 TOM MARQUES Ot 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 02/08/2016 ANJU FRANCIS CLINICAL CASE MANAGER Ot Z12.31 ENCNTR SCREEN MAMMOGRAM FOR MALIGNANT NE 02/09/2016 ANJU FRANCIS CLINICAL CASE MANAGER Ot Z12.31 ENCNTR SCREEN MAMMOGRAM FOR MALIGNANT NE 02/09/2016 ANJU FRANCIS CLINICAL CASE MANAGER Ot Z12.31 ENCNTR SCREEN MAMMOGRAM FOR MALIGNANT NE 03/01/2016 ANJU FRANCIS CLINICAL CASE MANAGER Ot Z12.31 ENCNTR SCREEN MAMMOGRAM FOR MALIGNANT NE 04/05/2016 MELISSA MCKEON, DORIAN Cortes Ot E04 .2 NONTOXIC MULTINODULAR GOITER 04/06/2016 MELISSA MCKEON, DORIAN Cortes Ot E04 .2 NONTOXIC MULTINODULAR GOITER 04/30/2016 DORIAN TORRES MD Ot E04 .2 NONTOXIC MULTINODULAR GOITER 05/03/2016 MELISSA MCKEON, DORIAN Cortes Ot E04 .2 NONTOXIC MULTINODULAR GOITER 05/14/2016 Ot 272.4 HYPE RLIPIDEMIA NEC/NOS 05/14/2016 Ot 414.00 COR ON ATHEROSCLER NOS TYPE VESSEL, NATIV 05/14/2016 Ot 433.10 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 05/14/2016 Ot V58.69 OTH MED,LT,CURRENT USE 05/14/2016 Ot V76.12 OTH SCREEN MAMMO- MALIGN NEOPLASM OF TERRA 05/14/2016 Ot 785.1 PALP ITATIONS 05/14/2016 Ot 272.4 HYPE RLIPIDEMIA NEC/NOS 05/14/2016 Ot 414.00 COR ON ATHEROSCLER NOS TYPE VESSEL, NATIV 05/14/2016 Ot V58.69 OTH MED,LT,CURRENT USE 05/14/2016 Ot 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 05/14/2016 Ot 825.25 FX METATARSAL- CLOSED 05/14/2016 Ot E000.8 OTH ER EXTERNAL CAUSE STATUS 05/14/2016 Ot E849.0 ACC IDENT IN HOME 05/14/2016 Ot 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 05/14/2016 Ot 272.4 HYPE RLIPIDEMIA NEC/NOS 05/14/2016 Ot 401.9 HYPE RTENSION NOS 05/14/2016 Ot 414.00 COR ON ATHEROSCLER NOS TYPE VESSEL, NATIV 05/14/2016 Ot V58.69 OTH MED,LT,CURRENT USE 05/14/2016 Ot 793.82 INC ONCLUSIVE MAMMOGRAM 05/14/2016 Ot V76.12 OTH SCREEN MAMMO- MALIGN NEOPLASM OF TERRA 05/14/2016 Ot 793.80 UNS PEC ABNORMAL MAMMOGRAM 05/14/2016 DORIAN TORRES MD Ot 240 .9 GOITER NOS 05/14/2016 DORIAN TORRES MD Ot 241 .0 NONTOX UNINODULAR GOITER 05/14/2016 MED MCKEON, SIENA Vikki Ot V67.9 FOLLOW-UP EXAM NOS 05/14/2016 TOM MARQUES PRESIDENT EDUCATIONAL INSTITUTION Ot 250.00 DIAB CASSIA WO COMPL, TYPE II OR UNSPEC TY 05/14/2016 TOM MARQUES PRESIDENT EDUCATIONAL INSTITUTION Ot 272.4 HYPERLIPIDEMIA NEC/NOS 05/14/2016 TOM MARQUES PRESIDENT EDUCATIONAL INSTITUTION Ot 414.00 CORON ATHEROSCLER NOS TYPE VESSEL, NATIV 05/14/2016 TOM MARQUES PRESIDENT EDUCATIONAL INSTITUTION Ot V58.69 OTH MED,LT,CURRENT USE 05/14/2016 YECENIA MCKEON FACC, ALI FACP CCDS Ot 414.00 CORON ATHEROSCLER NOS TYPE VESSEL, NATIV 05/14/2016 CANDIE FRANCIS APRN Ot 241.0 NONTOX UNINODULAR GOITER 05/14/2016 DORIAN TORRES MD Ot 240 .9 GOITER NOS 05/14/2016 DORIAN TORRES MD Ot 780.79 OTH MALAISE FATIGUE 05/14/2016 EYCENIA KNOXC, ALI FACP CCDS Ot 250.00 DIAB CASSIA WO COMPL, TYPE II OR UNSPEC TY 05/14/2016 YECENIA MCKEON FACC, ALI FACP CCDS Ot 272.4 HYPERLIPIDEMIA NEC/NOS 05/14/2016 YECENIA MCKEON FACC, ALI FACP CCDS Ot 401.9 HYPERTENSION NOS 05/14/2016 YECENIA KNOXC, ALI FACP CCDS Ot 414.00 CORON ATHEROSCLER NOS TYPE VESSEL, NATIV 05/14/2016 YECENIA KNOXC, ALI FACP CCDS Ot 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 05/14/2016 YECENIA KNOXC, ALI FACP CCDS Ot 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 05/14/2016 YECENIA MCKEON FAC, ALI FACP CCDS Ot 250.00 DIAB CASSIA [...] 447.9 ARTERIAL DISEASE NOS 05/14/2016 YECENIA MCKEON FAC, ALI FACP CCDS Ot 733.00 OSTEOPOROSIS NOS 05/14/2016 YECENIA MCKEON FACC, ALI FACP CCDS Ot 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 05/14/2016 SIENA JOVEL MD Ot 250.00 DIAB CASSIA WO COMPL, TYPE II OR UNSPEC TY 05/14/2016 SIENA JOVEL MD Ot 272.4 HYPERLIPIDEMIA NEC/NOS 05/14/2016 DORIAN TORRES MD Ot 241 .0 NONTOX UNINODULAR GOITER 05/14/2016 SIENA JOVEL MD Ot V76.12 OTH SCREEN MAMMO-MALIGN NEOPLASM OF TER[place] 05/14/2016 TOM MARQUES PRESIDENT EDUCATIONAL INSTITUTION Ot 272.4 HYPERLIPIDEMIA NEC/NOS 05/14/2016 DORIAN TORRES MD Ot 241 .1 NONTOX MULTINODUL GOITER 05/14/2016 TOM MARQUES PRESIDENT [facility]UCATIONAL INSTITUTION Ot 272.4 HYPERLIPIDEMIA NEC/NOS 05/14/2016 TOM MARQUES PRESIDENT [facility]UCATIONAL [facility]STITUTION Ot 414.00 CORON ATHEROSCLER NOS TYPE VESSEL, NATIV 05/14/2016 YUNIOR JOYNER MD Ot 719.45 JOINT PAIN-PELVIS 05/14/2016 YUNIOR JOYNER MD Ot 724.2 LUMBAGO 05/14/2016 YUNIOR JOYNER MD Ot 729.5 PAIN IN LIMB 05/14/2016 YUNIOR JOYNER MD Ot V15.88 HISTORY OF FALL 05/14/2016 YUNIOR JOYNER MD Ot V76.12 OT SCREEN MAMMO-MALIGN NEOPLASM OF TERRA 05/14/2016 YECENIA MCKEON FAC, [facility] E78.5 HYPERLIPIDEMIA, UNSPECIFIED 05/14/2016 YECENIA MCKEON FAC, ALI [facility] CCD[facility] Ot I25.10 ATHSCL HEART DISEASE OF [place] CORONARY 05/14/2016 MELISSA MCKEON, DORIAN Cortes Ot E04 .2 NONTOXIC MULTINODULAR GOITER 05/14/2016 BAIMA, TOM L PRESIDENT EDUCATIONAL INSTITUTION Ot E78.4 OTHER HYPERLIPIDEMIA 05/14/2016 BAIMA, TOM L PRESIDENT [facility]UCATIONAL [facility]STITUTION Ot I 10 ESSENTIAL (PRIMARY) HYPERTENSION 05/14/2016 BAIMA, TOM L PRESIDENT EDUCATIONAL INSTITUTION Ot I25.10 ATHSCL HEART DISEASE OF [place] CORONARY 05/14/2016 BAIMA, TOM L PRESIDENT [facility]UCATIONAL INSTITUTION Ot I47.1 SUPRAVENTRICULAR TACHYCARDIA 05/14/2016 BAIMA, TOM L PRESIDENT [facility]UCATIONAL [facility]STITUTION Ot R53.81 OTHER MALAISE 05/14/2016 BAIMA, TOM L PRESIDENT [facility]ATIONAL [facility]STIT[facility] Ot E78.4 OTHER HYPERLIPIDEMIA 05/14/2016 BAIMA, TOM L PRESIDENT [facility]UCATIONAL INSTITUTION Ot I25.10 ATHSCL HEART DISEASE OF [place] CORONARY 05/14/2016 BAIMA, TOM L PRESIDENT [facility]UCATIONAL INSTITUTION Ot 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 05/14/2016 ANJU FRANCIS CLINICAL CASE MANAGER Ot Z12.31 ENCNTR SCREEN MAMMOGRAM FOR MALIGNANT NE 05/14/2016 MELISSA MCKEON, DORIAN Cortes Ot E04 .2 NONTOXIC MULTINODULAR GOITER 06/05/2016 YUNIOR JOYNER MD Ot E03.9 HYPOTHYROIDISM, UNSPECIFIED 06/05/2016 YUNIOR JOYNER MD Ot 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 06/05/2016 YUNIOR JOYNER MD Ot I1 0 ESSENTIAL (PRIMARY) HYPERTENSION 06/18/2016 YOUSIF BLANCO MD Ot 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 06/18/2016 YOUSIF BLANCO MD Ot S99.912A UNSPECIFIED INJURY OF LEFT ANKLE, INITIA 06/18/2016 YOUSIF BLANCO MD Ot W10.9XXA FALL (ON) (FROM) UNSPECIFIED STAIRS AND 06/18/2016 YOUSIF BLANCO MD Ot Y92.009 [facility] [address] IN [facility] (PRIVATE 06/18/2016 YOUSIF BLANCO MD Ot Y99. 8 OTHER EXTERNAL CAUSE STATUS 06/18/2016 YOUSIF BLANCO MD Ot Z79. 4 [facility] (CURRENT) USE OF INSULIN 06/18/2016 YOUSIF BLANCO MD Ot Z79. 82 [facility] (CURRENT) USE OF ASPIRIN 06/19/2016 YOUSIF BLANCO MD Ot 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 06/19/2016 YOUSIF BLANCO MD Ot S99.912A UNSPECIFIED INJURY OF LEFT ANKLE, INITIA 06/19/2016 YOUSIF BLANCO MD Ot W10.9XXA FALL (ON) (FROM) UNSPECIFIED STAIRS AND 06/19/2016 YOUSIF BLANCO MD Ot Y92.009 [facility] [address] IN [facility] (PRIVATE 06/19/2016 YOUSIF BLANCO MD Ot Y99. 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 82 [facility] (CURRENT) USE OF ASPIRIN 08/07/2016 YOUSIF BLACNO MD Ot 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 08/07/2016 YOUSIF BLANCO MD Ot S99.912A UNSPECIFIED INJURY OF LEFT ANKLE, INITIA 08/07/2016 YOUSIF BLANCO MD Ot W10.9XXA FALL (ON) (FROM) UNSPECIFIED STAIRS AND 08/07/2016 YOUSIF BLANCO MD Ot Y92.009 [facility] [address] IN [facility] 08/07/2016 YOUSIF BLANCO MD Ot Y99. 8 OTHER EXTERNAL CAUSE STATUS 08/07/2016 YOUSIF BLANCO MD Ot Z79. 4 [facility] (CURRENT) USE OF INSULIN 08/07/2016 YOUSIF BLANCO MD Ot Z79. 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 11/13/2016 YUNIOR JOYNER MD Ot E04.1 NONTOXIC SINGLE THYROID NODULE 11/22/2016 YUNIOR JOYNER MD Ot E04.1 NONTOXIC SINGLE THYROID NODULE 12/01/2016 YUNIOR JOYNER MD Ot E10.9 TYPE 1 DIABETES MELLITUS WITHOUT COMPLIC 12/01/2016 YUNIOR JOYNER MD Ot I1 0 ESSENTIAL (PRIMARY) HYPERTENSION 01/13/2017 ATUL BERGMAN MD [...] MD Ot I25.10 ATHSCL HEART DISEASE OF [place] CORONARY 01/13/2017 ATUL BERGMAN MD Ot R73.09 OTHER ABNORMAL GLUCOSE 01/13/2017 ATUL BERGMAN MD Ot Z79.4 [facility] (CURRENT) USE OF INSULIN 01/13/2017 ATUL BERGMAN MD Ot Z79.82 PATIENT OBSERVER (CURRENT) USE OF ASPIRIN 01/21/2017 ATUL BERGMAN [...] MD Ot I25.10 ATHSCL HEART DISEASE OF [place] CORONARY 01/21/2017 ATUL BERGMAN MD Ot R73.09 OTHER ABNORMAL GLUCOSE 01/21/2017 ATUL BERGMAN MD Ot Z79.4 PATIENT OBSERVER (CURRENT) USE OF INSULIN 01/21/2017 ATUL BERGMAN MD Ot Z79.82 [facility] (CURRENT) USE OF ASPIRIN 03/31/2017 YUNIOR JOYNER MD Ot E10.9 TYPE 1 DIABETES MELLITUS WITHOUT COMPLIC 03/31/2017 YUNIOR JOYNER MD Ot I1 0 ESSENTIAL (PRIMARY) HYPERTENSION 04/02/2017 YUNIOR JOYNER MD Ot 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 04/02/2017 YUNIOR JOYNER MD Ot F41.9 ANXIETY DISORDER, UNSPECIFIED 04/02/2017 YUNIOR JOYNER MD Ot I1 0 ESSENTIAL (PRIMARY) HYPERTENSION 04/02/2017 YUNIOR JOYNER MD Ot I25.10 ATHSCL HEART DISEASE OF [place] CORONARY 04/02/2017 YUNIOR JOYNER MD Ot M46.1 SACROILIITIS, NOT ELSEWHERE CLASSIFIED 04/02/2017 YUNIOR JOYNER MD Ot M51.36 OTHER INTERVERTEBRAL DISC DEGENERATION, 04/02/2017 YUNIOR JOYNER MD Ot Z79.4 PATIENT OBSERVER (CURRENT) USE OF INSULIN 04/02/2017 YUNIOR JOYNER MD Ot 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 04/02/2017 YUNIOR JOYNER MD Ot F41.9 ANXIETY DISORDER, UNSPECIFIED 04/02/2017 YUNIOR JOYNER MD Ot I1 0 ESSENTIAL (PRIMARY) HYPERTENSION 04/02/2017 YUNIOR JOYNER MD Ot I25.10 ATHSCL HEART DISEASE OF [place] CORONARY 04/02/2017 YUNIOR JOYNER MD Ot M46.1 SACROILIITIS, NOT ELSEWHERE CLASSIFIED 04/02/2017 UYNIOR JOYNER MD Ot M51.36 OTHER INTERVERTEBRAL DISC DEGENERATION, 04/02/2017 YUNIOR JOYNER MD Ot Z79.4 PATIENT OBSERVER (CURRENT) USE OF INSULIN 05/31/2017 BAIMA, TOM L PRESIDENT [facility]UCATIONAL [facility]STITUTION Ot E78.5 HYPERLIPIDEMIA, UNSPECIFIED 05/31/2017 BAIMA, TOM L PRESIDENT [facility]UCATIONAL [facility]STITUTION Ot I 10 ESSENTIAL (PRIMARY) HYPERTENSION 05/31/2017 BAIMA, TOM L PRESIDENT EDUCATIONAL INSTITUTION Ot I25.10 ATHSCL HEART DISEASE OF [place] CORONARY 05/31/2017 BAIMA, TOM L PRESIDENT EDUCATIONAL [facility]STITUTION Ot I47.1 SUPRAVENTRICULAR TACHYCARDIA 05/31/2017 BAIMA, TOM L PRESIDENT [facility]UCATIONAL [facility]STITUTION Ot Q21.1 ATRIAL SEPTAL DEFECT 06/24/2017 BAIMA, TOM L PRESIDENT [facility]UCATIONAL [facility]STITUTION Ot E78.5 HYPERLIPIDEMIA, UNSPECIFIED 06/24/2017 BAIMA, TOM L PRESIDENT EDUCATIONAL INSTITUTION Ot I 10 ESSENTIAL (PRIMARY) HYPERTENSION 06/24/2017 BAIMA, TOM L PRESIDENT EDUCATIONAL INSTITUTION Ot I25.10 ATHSCL HEART DISEASE OF [place] CORONARY 06/24/2017 BAIMA, TOM L PRESIDENT EDUCATIONAL INSTITUTION Ot I47.1 SUPRAVENTRICULAR TACHYCARDIA 06/24/2017 BAIMA, TOM L PRESIDENT EDUCATIONAL INSTITUTION Ot Q21.1 ATRIAL SEPTAL DEFECT 06/27/2017 BAIMA, TOM L PRESIDENT EDUCATIONAL INSTITUTION Ot E78.5 HYPERLIPIDEMIA, UNSPECIFIED 06/27/2017 BAIMA, TOM L PRESIDENT EDUCATIONAL INSTITUTION Ot I 10 ESSENTIAL (PRIMARY) HYPERTENSION 06/27/2017 BAIMA, TOM L PRESIDENT EDUCATIONAL INSTITUTION Ot I25.10 ATHSCL HEART DISEASE OF [place] CORONARY 06/27/2017 BAIMA TOM L PRESIDENT EDUCATIONAL INSTITUTION Ot I47.1 SUPRAVENTRICULAR TACHYCARDIA 06/27/2017 BAIMA, TOM L PRESIDENT EDUCATIONAL INSTITUTION Ot Q21.1 ATRIAL SEPTAL DEFECT 08/13/2017 YECENIA MCKEON FACC, ALI FACP CCDS Ot E11.51 TYPE 2 DIABETES W DIABETIC PERIPHERAL AN 08/13/2017 YECENIA MCKEON FACC, ALI FACP CCDS Ot E78.5 HYPERLIPIDEMIA, UNSPECIFIED 08/13/2017 YECENIA MCKEON FACC, CHEN FACP CCDS Ot I10 ESSENTIAL (PRIMARY) HYPERTENSION 08/13/2017 YECENIA MCKEON FACC, ALI FACP CCDS Ot I25.10 ATHSCL HEART DISEASE OF [place] CORONARY 08/13/2017 YECENIA MCKEON FACC, ALI FACP CCDS Ot I47.1 SUPRAVENTRICULAR TACHYCARDIA 08/13/2017 YECENIA MCKEON FACC, ALI FACP CCDS Ot 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 08/13/2017 YECENIA MCKEON FACC, ALI FACP CCDS Ot I73.9 PERIPHERAL VASCULAR DISEASE, UNSPECIFIED 08/29/2017 YECENIA MCKEON FAC, ALI FACP CCDS Ot E11.51 TYPE 2 DIABETES W DIABETIC PERIPHERAL AN 08/29/2017 YECENIA MCEKON FACVlad, ALI FACP CCDS Ot E78.5 HYPERLIPIDEMIA, UNSPECIFIED 08/29/2017 YECENIA MCKEON FACC, ALI FACP CCDS Ot I10 ESSENTIAL (PRIMARY) HYPERTENSION 08/29/2017 YECENIA MCKEON FACC, ALI FACP CCDS Ot I25.10 ATHSCL HEART DISEASE OF [place] CORONARY 08/29/2017 YECENIA MCKEON FAC, ALI FACP CCDS Ot I47.1 SUPRAVENTRICULAR TACHYCARDIA 08/29/2017 YECENIA MCKEON FAC, ALI FACP CCDS Ot 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 08/29/2017 YECENIA MCKEON FACC, ALI FACP CCDS [...] MD Ot I25.10 ATHSCL HEART DISEASE OF [place] CORONARY 08/30/2017 YUNIOR JOYNER MD Ot I77.89 OTHER SPECIFIED DISORDERS OF ARTERIES AN 08/30/2017 YUNIOR JOYNER MD Ot M12.9 ARTHROPATHY, UNSPECIFIED 08/30/2017 YUNIOR JOYNER MD Ot M54.6 PAIN IN THORACIC SPINE 08/30/2017 YUNIOR JOYNER MD Ot M81.0 AGE-RELATED OSTEOPOROSIS W/O CURRENT PAT 08/30/2017 YUNIOR JOYNER MD Ot R07.9 CHEST PAIN, UNSPECIFIED 08/30/2017 YUNIOR JOYNER MD Ot R53.1 WEAKNESS 08/30/2017 YUNIOR JOYNER MD, Ot R53.81 OTHER MALAISE 08/30/2017 YUNIOR JOYNER MD Ot Z79.4 [facility] (CURRENT) USE OF INSULIN 08/30/2017 YUNIOR JOYNER MD Ot Z95.5 PRESENCE OF CORONARY ANGIOPLASTY IMPLANT 09/03/2017 YECENIA MCKEON FAC, ALI FACP CCDS Ot E11.51 TYPE 2 DIABETES W DIABETIC PERIPHERAL AN 09/03/2017 YECENIA MCKEON FACC, ALI FACP CCDS Ot E78.5 HYPERLIPIDEMIA, UNSPECIFIED 09/03/2017 YECENIA MCKEON FACC, ALI FACP CCDS Ot I10 ESSENTIAL (PRIMARY) HYPERTENSION 09/03/2017 YECENIA MCKEON FACC, ALI FACP CCDS Ot I25.10 ATHSCL HEART DISEASE OF [place] CORONARY 09/03/2017 YECENIA MCKEON FAC, ALI FACP CCDS Ot I47.1 SUPRAVENTRICULAR TACHYCARDIA 09/03/2017 YECENIA MCKEON FACC, ALI FACP CCDS Ot 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 09/03/2017 YECENIA MCKEON FACC, ALI FACP CCDS Ot I73.9 PERIPHERAL VASCULAR DISEASE, UNSPECIFIED 09/05/2017 YUNIOR JOYNER MD Ot E03.9 HYPOTHYROIDISM, UNSPECIFIED 09/05/2017 YUNIOR JOYNER MD Ot E10.9 TYPE 1 DIABETES MELLITUS WITHOUT COMPLIC 09/05/2017 YUNIOR JOYNER MD Ot E78.5 HYPERLIPIDEMIA, UNSPECIFIED 09/05/2017 YUNIOR JOYNER MD Ot I1 0 ESSENTIAL (PRIMARY) HYPERTENSION 09/05/2017 YUNIOR JOYNER MD Ot Z79.899 OTHER [facility] (CURRENT) DRUG THERAPY 09/24/2017 YUNIOR JOYNER MD Ot E03.9 HYPOTHYROIDISM, UNSPECIFIED 09/24/2017 YUNIOR JOYNER MD Ot E10.9 TYPE 1 DIABETES MELLITUS WITHOUT COMPLIC 09/24/2017 YUNIOR JOYNER MD Ot E78.5 HYPERLIPIDEMIA, UNSPECIFIED 09/24/2017 YUNIOR JOYNER MD Ot I1 0 ESSENTIAL (PRIMARY) HYPERTENSION 09/24/2017 YUNIOR JOYNER MD Ot Z79.899 OTHER PATIENT OBSERVER (CURRENT) DRUG THERAPY 09/28/2017 ROBERT FAY APRN Ot E11 .9 TYPE 2 DIABETES MELLITUS WITHOUT COMPLIC 09/28/2017 ROBERT FAY APRN Ot F32 .9 MAJOR DEPRESSIVE DISORDER, SINGLE EPISOD 09/28/2017 ROBERT FAY CLINICAL CASE MANAGER Ot F41 .9 ANXIETY DISORDER, UNSPECIFIED 09/28/2017 ROBERT FAY CLINICAL CASE MANAGER Ot I10 ESSENTIAL (PRIMARY) HYPERTENSION 09/28/2017 ROBERT FAY CLINICAL CASE MANAGER Ot I25.10 ATHSCL HEART DISEASE OF [place] CORONARY 09/28/2017 ROBERT FAY CLINICAL CASE MANAGER Ot T38.3X1A POISONING BY INSULIN AND ORAL HYPOGLYCEM 09/28/2017 ROBERT FAY CLINICAL CASE MANAGER Ot Z79 .4 PATIENT OBSERVER (CURRENT) USE OF INSULIN 09/28/2017 ROBERT FAY CLINICAL CASE MANAGER Ot Z79.82 PATIENT OBSERVER (CURRENT) USE OF ASPIRIN 09/28/2017 ROBERT FAY APRN Ot Z90.89 ACQUIRED ABSENCE OF OTHER ORGANS 09/28/2017 ROBERT FAY CLINICAL CASE MANAGER Ot Z95 .5 PRESENCE OF CORONARY ANGIOPLASTY IMPLANT 09/28/2017 Ot 793.82 INC ONCLUSIVE MAMMOGRAM 09/28/2017 Ot V76.12 OTH SCREEN MAMMO- MALIGN NEOPLASM OF TERRA 09/28/2017 Ot 793.80 UNS PEC ABNORMAL MAMMOGRAM 09/28/2017 DORIAN TORRES MD Ot 240 .9 GOITER NOS 09/28/2017 DORIAN TORRES MD Ot 241 .0 NONTOX UNINODULAR GOITER 09/28/2017 MED MCKEON, SIENA Florez Ot V67.9 FOLLOW-UP EXAM NOS 09/28/2017 TOM MARQUES PRESIDENT [facility]UCATIONAL [facility]STITUTION Ot 250.00 DIAB CASSIA WO COMPL, TYPE II OR UNSPEC TY 09/28/2017 TOM MARQUES PRESIDENT [facility]UCATIONAL [facility]STITUTION Ot 272.4 HYPERLIPIDEMIA NEC/NOS 09/28/2017 TOM MARQUES PRESIDENT [facility]UCATIONAL [facility]STITUTION Ot 414.00 CORON ATHEROSCLER NOS TYPE VESSEL, NATIV 09/28/2017 TOM MARQUES PRESIDENT [facility]UCATIONAL [facility]STITUTION Ot V58.69 OTH MED,LT,CURRENT USE 09/28/2017 CHEN KEENE MD, FACC, FACP CCDS Ot 414.00 CORON ATHEROSCLER NOS TYPE VESSEL, NATIV 09/28/2017 CANDIE FRANCIS CLINICAL CASE MANAGER Ot 241.0 NONTOX UNINODULAR GOITER 09/28/2017 DORIAN TORRES MD Ot 240 .9 GOITER NOS 09/28/2017 DORIAN TORRES MD Ot 780.79 OTH MALAISE FATIGUE 09/28/2017 YECENIA MCKEON FACC, ALI FACP CCDS Ot 250.00 DIAB CASSIA WO COMPL, TYPE II OR UNSPEC TY 09/28/2017 YECENIA MCKEON FACC, ALI FACP CCDS Ot 272.4 HYPERLIPIDEMIA NEC/NOS 09/28/2017 YECENIA MCKEON FACC, ALI FACP CCDS Ot 401.9 HYPERTENSION NOS 09/28/2017 YECENIA MCKEON FACC, ALI FACP CCDS Ot 414.00 CORON ATHEROSCLER NOS TYPE VESSEL, NATIV 09/28/2017 YECENIA MCKEON FACC, ALI FACP CCDS Ot 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 09/28/2017 YECENIA MCKEON FACC, ALI FACP CCDS Ot 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 09/28/2017 YECENIA MCKEON FACC, ALI FACP CCDS Ot 250.00 DIAB CASSIA WO COMPL, TYPE II OR UNSPEC TY 09/28/2017 YECENIA MCKEON FACC, ALI FACP CCDS Ot 272.4 HYPERLIPIDEMIA NEC/NOS 09/28/2017 YECENIA MCKEON FACC, ALI FACP CCDS Ot 362.81 RETINAL HEMORRHAGE 09/28/2017 YECENIA MCKEON FACC, ALI FACP CCDS Ot 401.9 HYPERTENSION NOS 09/28/2017 YECENIA MCKEON FACC, ALI FACP CCDS Ot 414.00 CORON ATHEROSCLER NOS TYPE VESSEL, NATIV 09/28/2017 YECENIA MCKEON FACC, ALI FACP CCDS Ot 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 09/28/2017 YECENIA MCKEON FACC, ALI FACP CCDS Ot 447.9 ARTERIAL DISEASE NOS 09/28/2017 YECENIA MCKEON FACC, ALI FACP CCDS Ot 733.00 OSTEOPOROSIS NOS 09/28/2017 YECENIA MCKEON FACC, ALI FACP CCDS Ot 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 09/28/2017 SINEA JOVEL MD Ot 250.00 DIAB CASSIA WO COMPL, TYPE II OR UNSPEC TY 09/28/2017 SIENA JOVEL MD Ot 272.4 HYPERLIPIDEMIA NEC/NOS 09/28/2017 DORIAN TORRES MD Ot 241 .0 NONTOX UNINODULAR GOITER 09/28/2017 SIENA JOVEL MD Ot V76.12 OTH SCREEN MAMMO-MALIGN NEOPLASM OF TERRA 09/28/2017 TOM MARQUES PRESIDENT EDUCATIONAL INSTITUTION Ot 272.4 HYPERLIPIDEMIA NEC/NOS 09/28/2017 DORIAN TORRES MD Ot 241 .1 NONTOX MULTINODUL GOITER 09/28/2017 ELVISMATOM L PRESIDENT EDUCATIONAL INSTITUTION Ot 272.4 HYPERLIPIDEMIA NEC/NOS 09/28/2017 BAIMA, TOM L PRESIDENT EDUCATIONAL INSTITUTION Ot 414.00 CORON ATHEROSCLER NOS TYPE VESSEL, NATIV 09/28/2017 AR MCKEON, YUNIOR Acosta Ot 719.45 JOINT PAIN-PELVIS 09/28/2017 AR MCKEON, YUNIOR Acosta Ot 724.2 LUMBAGO 09/28/2017 YUNIOR JOYNER MD Ot 729.5 PAIN IN LIMB 09/28/2017 AR MCKEON, YUNIOR Acosta Ot V15.88 HISTORY OF FALL 09/28/2017 YUNIOR JOYNER MD Ot V76.12 OTH SCREEN MAMMO-MALIGN NEOPLASM OF TERRA 09/28/2017 YECENIA MCKEON FAC, ALI FACP CCDS Ot E78.5 HYPERLIPIDEMIA, UNSPECIFIED 09/28/2017 YECENIA MCKEON FACC, ALI FACP CCDS Ot I25.10 ATHSCL HEART DISEASE OF [place] CORONARY 09/28/2017 MELISSA MCKEON, DORIAN Cortes Ot E04 .2 NONTOXIC MULTINODULAR GOITER 09/28/2017 ELVISMA TOM L PRESIDENT EDUCATIONAL INSTITUTION Ot E78.4 OTHER HYPERLIPIDEMIA 09/28/2017 BAIMA, TOM L PRESIDENT EDUCATIONAL INSTITUTION Ot I 10 ESSENTIAL (PRIMARY) HYPERTENSION 09/28/2017 BAIMA, TOM L PRESIDENT EDUCATIONAL INSTITUTION Ot I25.10 ATHSCL HEART DISEASE OF [place] CORONARY 09/28/2017 ELVISJUAN DAVID TOM L PRESIDENT EDUCATIONAL INSTITUTION Ot I47.1 SUPRAVENTRICULAR TACHYCARDIA 09/28/2017 JERALD TOM L PRESIDENT EDUCATIONAL INSTITUTION Ot R53.81 OTHER MALAISE 09/28/2017 BAIMA, TOM L PRESIDENT EDUCATIONAL INSTITUTION Ot E78.4 OTHER HYPERLIPIDEMIA 09/28/2017 BAIMA, TOM L PRESIDENT EDUCATIONAL INSTITUTION Ot I25.10 ATHSCL HEART DISEASE OF [place] CORONARY 09/28/2017 BAIMAJUAN CARLOSTOM L PRESIDENT EDUCATIONAL INSTITUTION Ot 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 09/28/2017 ANJU FRANCIS APRN Ot Z12.31 ENCNTR SCREEN MAMMOGRAM FOR MALIGNANT NE 09/28/2017 MELISSA MCKEON, DORIAN Cortes Ot E04 .2 NONTOXIC MULTINODULAR GOITER 09/28/2017 YUNIOR JOYNER MD Ot E03.9 HYPOTHYROIDISM, UNSPECIFIED 09/28/2017 YUNIOR JOYNER MD Ot 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 09/28/2017 YUNIOR JOYNER MD Ot I1 0 ESSENTIAL (PRIMARY) HYPERTENSION 09/28/2017 DYLLAN MILLER PRESIDENT EDUCATIONAL INSTITUTION Ot 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 09/28/2017 YUNIOR JOYNER MD Ot E04.1 NONTOXIC SINGLE THYROID NODULE 09/28/2017 YUNIOR JOYNER MD Ot E10.9 TYPE 1 DIABETES MELLITUS WITHOUT COMPLIC 09/28/2017 YUNIOR JOYNER MD Ot I1 0 ESSENTIAL (PRIMARY) HYPERTENSION 09/28/2017 BAIMAJUAN CARLOSTOM L PRESIDENT EDUCATIONAL INSTITUTION Ot E78.5 HYPERLIPIDEMIA, UNSPECIFIED 09/28/2017 BAIMA, TOM L PRESIDENT EDUCATIONAL INSTITUTION Ot I 10 ESSENTIAL (PRIMARY) HYPERTENSION 09/28/2017 BAIJUAN DAVID TOM L PRESIDENT EDUCATIONAL INSTITUTION Ot I25.10 ATHSCL HEART DISEASE OF [place] CORONARY 09/28/2017 ELVISJUAN CARLOS FALLHER L PRESIDENT EDUCATIONAL INSTITUTION Ot I47.1 SUPRAVENTRICULAR TACHYCARDIA 09/28/2017 ELVISJUAN DAVID TOM L PRESIDENT EDUCATIONAL INSTITUTION Ot Q21.1 ATRIAL SEPTAL DEFECT 09/28/2017 YECENIA MCKEON FACC, ALI FACP CCDS Ot E11.51 TYPE 2 DIABETES W DIABETIC PERIPHERAL AN 09/28/2017 YECENIA MCKEON FACC, ALI FACP CCDS Ot E78.5 HYPERLIPIDEMIA, UNSPECIFIED 09/28/2017 YECENIA MCKEON FACC, ALI FACP CCDS Ot I10 ESSENTIAL (PRIMARY) HYPERTENSION 09/28/2017 YECENIA MCKEON FACC, ALI FACP CCDS Ot I25.10 ATHSCL HEART DISEASE OF [place] CORONARY 09/28/2017 YECENIA MCKEON FACC, ALI FACP CCDS Ot I47.1 SUPRAVENTRICULAR TACHYCARDIA 09/28/2017 YECENIA MCKEON FACC, ALI FACP CCDS Ot 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 09/28/2017 YECENIA MCKEON FACC, ALI FACP CCDS Ot I73.9 PERIPHERAL VASCULAR DISEASE, UNSPECIFIED 09/28/2017 YUNIOR JOYNER MD Ot E03.9 HYPOTHYROIDISM, UNSPECIFIED 09/28/2017 YUNIOR JOYNER MD Ot E10.9 TYPE 1 DIABETES MELLITUS WITHOUT COMPLIC 09/28/2017 YUNIOR JOYNER MD Ot E78.5 HYPERLIPIDEMIA, UNSPECIFIED 09/28/2017 YUNIOR JOYNER MD Ot I1 0 ESSENTIAL (PRIMARY) HYPERTENSION 09/28/2017 YUNIOR JOYNER MD Ot Z79.899 OTHER [facility] (CURRENT) DRUG THERAPY 10/06/2017 Ot D64.9 ANEM IA, UNSPECIFIED 10/06/2017 Ot E11.9 TYPE 2 DIABETES MELLITUS WITHOUT COMPLIC 10/06/2017 Ot F32.9 PATTI R DEPRESSIVE DISORDER, SINGLE EPISOD 10/06/2017 Ot F41.9 ANXI ETY DISORDER, UNSPECIFIED 10/06/2017 Ot I10 ESSENT IAL (PRIMARY) HYPERTENSION 10/06/2017 Ot I25.10 ATH SCL HEART DISEASE OF [place] CORONARY 10/06/2017 Ot R40.2142 C ARLINE SCALE, EYES OPEN, SPONTANEOUS, EMR 10/06/2017 Ot R40.2252 C ARLINE SCALE, BEST VERBAL RESPONSE, ORIENT 10/06/2017 Ot R40.2362 C ARLINE SCALE, BEST MOTOR RESPONSE, OBEYS C 10/06/2017 Ot S51.811A L ACERATION W/O FOREIGN BODY OF RIGHT FOR 10/06/2017 Ot W10.8XXA F ALL (ON) (FROM) OTHER STAIRS AND STEPS, 10/06/2017 Ot Z79.4 [facility] (CURRENT) USE OF INSULIN 10/06/2017 Ot Z79.82 JOVANNI G TERM (CURRENT) USE OF ASPIRIN 10/06/2017 Ot Z82.49 FAM RAMY HX OF ISCHEM HEART DIS AND OTH DI 10/06/2017 Ot Z90.89 ACQ UIRED ABSENCE OF OTHER ORGANS 10/06/2017 Ot Z95.5 PRES ENCE OF CORONARY ANGIOPLASTY IMPLANT 11/20/2018 YECENIA MCKEON FACVlad, ALI FACP CCDS Ot I25.10 ATHSCL HEART DISEASE OF [place] CORONARY 11/27/2018 YECENIA MCKEON FACVlad, ALI FACP CCDS Ot I25.10 ATHSCL HEART DISEASE OF [place] CORONARY 12/28/2018 JEFF KHANNA MD Ot D64.9 ANEMIA, UNSPECIFIED 12/28/2018 JEFF KHANNA MD Ot 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 12/28/2018 JEFF KHANNA MD Ot E16.2 HYPOGLYCEMIA, UNSPECIFIED 12/28/2018 JEFF KHANNA MD Ot F32.9 MAJOR DEPRESSIVE DISORDER, SINGLE EPISOD 12/28/2018 JEFF KHANNA MD Ot F41.9 ANXIETY DISORDER, UNSPECIFIED 12/28/2018 JEFF KHANNA MD Ot I10 ESSENTIAL (PRIMARY) HYPERTENSION 12/28/2018 JEFF KHANNA MD Ot I25.10 ATHSCL HEART DISEASE OF [place] CORONARY 12/28/2018 JEFF KHANNA MD Ot Z79.4 PATIENT OBSERVER (CURRENT) USE OF INSULIN 12/28/2018 JEFF KHANNA MD Ot Z79.82 [facility] (CURRENT) USE OF ASPIRIN 12/28/2018 JEFF KHANNA MD, Ot Z82.49 FAMILY HX OF ISCHEM HEART DIS AND OTH DI 12/28/2018 JEFF KHANNA MD, Ot Z90.49 ACQUIRED ABSENCE OF OTHER SPECIFIED PART 12/28/2018 JEFF KHANNA MD, Ot Z95.5 PRESENCE OF CORONARY ANGIOPLASTY IMPLANT 03/24/2019 DYLLAN MILLER Ot M19.041 PRIMARY OSTEOARTHRITIS, RIGHT HAND 04/15/2019 DYLLAN MILLER Ot M19.041 PRIMARY OSTEOARTHRITIS, RIGHT HAND Procedures There is no data. Results Test Result Range Complete blood count (CBC) with automate d white blood cell (WBC) differential - 05/14/16 08:39 Blood leukocytes automated count (number/volume) 6.1 10*3/uL 4.3-11.0 Blood erythrocytes automated count (number/volume) 4.28 10*6/uL 4.35-5.85 Venous blood hemoglobin measurement (mass/volume) 13.0 g/dL 11.5-16.0 Blood hematocrit (volume fraction) 38 % 35-52 Automated erythrocyte mean corpuscular volume 89 [ foz_us] 80-99 Automated erythrocyte mean corpuscular h emoglobin (mass per erythrocyte) 30 pg 25-34 Automated erythrocyte mean corpuscular h emoglobin concentration measurement (mass/volume) 34 g/dL 32-36 Automated erythrocyte distribution width ratio 12. 4 % 10.0- 14.5 Automated blood platelet count (count/volume) 224 10*3/uL [...] 10*3 1.0-4.0 Blood monocytes automated count (number/volume) 0. 4 10*3 0.0-1.0 Automated eosinophil count 0.1 10*3/uL 0 .0-0.3 Automated blood basophil count (count/volume) 0.0 10*3/uL 0.0-0.1 Comprehensive metabolic panel - 05/14/16 08:39 Serum or plasma sodium measurement (moles/volume) 138 mmol/L 135-145 Serum or plasma potassium measurement (moles/volume) 4.5 mmol/L 3.6-5.0 Serum or plasma chloride measurement (moles/volume) 102 mmol/L 98-107 Carbon dioxide 27 mmol/L 21-32 Serum or plasma anion gap determination (moles/volume) 9 mmol/L 5-14 Serum or plasma urea nitrogen measurement (mass/volume ) 16 mg/dL 7-18 Serum or plasma creatinine measurement (mass/volume) 0.78 mg/dL 0.60-1.30 Serum or plasma urea nitrogen/creatinine mass ratio 21 NRG Serum or plasma creatinine measurement w ith calculation of estimated glomerular filtration rate > NRG Serum or plasma glucose measurement (mass/volume) 227 mg/dL 70-105 Serum or plasma calcium measurement (mass/volume) 9.2 mg/dL 8.5-10.1 Serum or plasma total bilirubin measurement (mass/volu me) 0.6 mg/dL 0.1-1.0 Serum or plasma alkaline phosphatase mukul surement (enzymatic activity/volume) 82 U/L 40-136 Serum or plasma aspartate aminotransfera se measurement (enzymatic activity/volume) 22 U/L 5-34 Serum or plasma alanine aminotransferase measurement (enzymatic activity/volume) 18 U/L 0-55 Serum or plasma protein measurement (mass/volume) 6.5 g/dL 6.4-8.2 Serum or plasma albumin measurement (mass/volume) 4.1 g/dL 3.2-4.5 Lipid 1996 panel - 05/14/16 08:39 Serum or plasma triglyceride measurement (mass/volume) 83 mg/dL <150 Serum or plasma cholesterol measurement (mass/volume) 172 mg/dL < 200 Serum or plasma cholesterol in HDL measurement (mass/v olume) 64 mg/dL 40-60 Cholesterol in LDL [mass/volume] in serum or plasma by direct assay 92 mg/dL 1-129 Serum or plasma cholesterol in VLDL measurement (mass/ volume) 17 mg/dL 5-40 Hemoglobin A1c - 05/14/16 08:39 Hemoglobin A1c 6.9 % 4.5-6.2 THYROID STIMULATING HORMONE - 05/14/16 0 8:39 THYROID STIMULATING HORMONE 0.80 u[iU]/mL 0.35-4.94 Complete blood count (CBC) with automate d white blood cell (WBC) differential - 06/18/16 03:11 Blood leukocytes automated count (number/volume) 9.5 10*3/uL 4.3-11.0 Blood erythrocytes automated count (number/volume) 4.52 10*6/uL 4.35-5.85 Venous blood hemoglobin measurement (mass/volume) 13.6 g/dL 11.5-16.0 Blood hematocrit (volume fraction) 40 % 35-52 Automated erythrocyte mean corpuscular volume 88 [ foz_us] 80-99 Automated erythrocyte mean corpuscular h emoglobin (mass per erythrocyte) 30 pg 25-34 Automated erythrocyte mean corpuscular h emoglobin concentration measurement (mass/volume) 34 g/dL 32-36 Automated erythrocyte distribution width ratio 12. 3 % 10.0- 14.5 Automated blood platelet count (count/volume) 218 10*3/uL [...] 10*3 1.0-4.0 Blood monocytes automated count (number/volume) 0. 7 10*3 0.0-1.0 Automated eosinophil count 0.1 10*3/uL 0 .0-0.3 Automated blood basophil count (count/volume) 0.0 10*3/uL 0.0-0.1 Blood manual differential performed dete ction - 06/18/16 03:11 Blood monocytes/100 leukocytes 4 % NRG Manual blood segmented neutrophils/100 leukocytes 89 % NRG Blood band neutrophils/100 leukocytes 0 % NRG Manual blood lymphocytes/100 leukocytes 5 % NRG Manual eosinophils/100 leukocytes in nose 2 % NRG Manual blood basophils/100 leukocytes 0 % NRG Blood erythrocyte morphology finding identification NORMAL NRG Comprehensive metabolic panel - 06/18/16 03:11 Serum or plasma sodium measurement (moles/volume) 140 mmol/L 135-145 Serum or plasma potassium measurement (moles/volume) 4.2 mmol/L 3.6-5.0 Serum or plasma chloride measurement (moles/volume) 103 mmol/L 98-107 Carbon dioxide 25 mmol/L 21-32 Serum or plasma anion gap determination (moles/volume) 12 mmol/L 5-14 Serum or plasma urea nitrogen measurement (mass/volume ) 21 mg/dL 7-18 Serum or plasma creatinine measurement (mass/volume) 0.84 mg/dL 0.60-1.30 Serum or plasma urea nitrogen/creatinine mass ratio 25 NRG Serum or plasma creatinine measurement w ith calculation of estimated glomerular filtration rate > NRG Serum or plasma glucose measurement (mass/volume) 87 mg/dL 70-105 Serum or plasma calcium measurement (mass/volume) 9.3 mg/dL 8.5-10.1 Serum or plasma total bilirubin measurement (mass/volu me) 0.6 mg/dL 0.1-1.0 Serum or plasma alkaline phosphatase mukul surement (enzymatic activity/volume) 83 U/L 40-136 Serum or plasma aspartate aminotransfera se measurement (enzymatic activity/volume) 21 U/L 5-34 Serum or plasma alanine aminotransferase measurement (enzymatic activity/volume) 15 U/L 0-55 Serum or plasma protein measurement (mass/volume) 6.9 g/dL 6.4-8.2 Serum or plasma albumin measurement (mass/volume) 4.4 g/dL 3.2-4.5 Capillary blood glucose measurement by g lucometer (mass/volume) - 06/18/16 03:11 Capillary blood glucose measurement by glucometer (mas s/volume) 86 mg/dL 70-110 Complete urinalysis with reflex to cultu re - 06/18/16 03:20 Urine color determination YELLOW NRG Urine clarity determination CLEAR NR G Urine pH measurement by test strip 7 5-9 Specific gravity of urine by test strip 1.005 1.016-1.022 Urine protein assay by test strip, semi-quantitative 1+ NEGATIVE Urine glucose detection by automated test strip NE GATIVE NEGATIVE Erythrocytes detection in urine sediment by light micr oscopy NEGATIVE NEGATIVE Urine ketones detection by automated test strip NE GATIVE NEGATIVE Urine nitrite detection by test strip NEGATIVE NEGATIVE Urine total bilirubin detection by test strip NEGA TIVE NEGATIVE Urine urobilinogen measurement by automated test strip (mass/volume) NORMAL NORMAL Urine leukocyte esterase detection by dipstick 3+ NEGATIVE Automated urine sediment erythrocyte cou nt by microscopy (number/high power field) NONE NRG Automated urine sediment leukocyte count by microscopy (number/high power field) [HPF] NRG Bacteria detection in urine sediment by light microsco py TRACE NRG Squamous epithelial cells detection in u rine sediment by light microscopy RARE NRG Crystals detection in urine sediment by light microsco py NONE NRG Casts detection in urine sediment by light microscopy NONE NRG Mucus detection in urine sediment by light microscopy SMALL NRG Complete urinalysis with reflex to culture YES NRG Bacterial urine culture - 06/18/16 03:20 Bacterial urine culture [id number] NRG COLONY COUNT <10,000 NRG FTX;REPORTABLE SENSITIVITY REPORTED 06/19/16 16:33 NRG FREE TEXT ENTRY 2 PLUS, NRG FREE TEXT ENTRY 3 MIXED GRAM POSITIVES <10,000/ML NRG Bacterial susceptibility panel - 7 03:20 Gentamicin susceptibility test by minimum inhibitory c oncentration <= NRG Trimethoprim/sulfamethoxazole susceptibi lity test by minimum inhibitoryconcentration <= NRG Ampicillin susceptibility test by minimum inhibitory c oncentration 8 NRG Tobramycin susceptibility test by minimum inhibitory c oncentration <= NRG Cefazolin susceptibility test by minimum inhibitory co ncentration <= NRG Ceftriaxone susceptibility test by minimum inhibitory concentration <= NRG Ampicillin/sulbactam susceptibility test by minimum inhibitory concentration 4 NRG Piperacillin/tazobactam susceptibility t est by minimum inhibitory concentration <= NRG Ciprofloxacin susceptibility test by minimum inhibitor y concentration <= NRG Meropenem susceptibility test by minimum inhibitory co ncentration <= NRG Nitrofurantoin susceptibility test by ia nimum inhibitory concentration <= NRG Aztreonam susceptibility test by minimum inhibitory co ncentration <= NRG Extended spectrum beta lactamase (ESBL) producing bacteria susceptibility test by minimum inhibitory concentration - NRG Capillary blood glucose measurement by g lucometer (mass/volume) - 06/18/16 04:39 Capillary blood glucose measurement by glucometer (mas s/volume) 110 mg/dL 70-110 Complete blood count (CBC) with automate d white blood cell (WBC) differential - 01/13/17 21:00 Blood leukocytes automated count (number/volume) 4.3 10*3/uL 4.3-11.0 Blood erythrocytes automated count (number/volume) 3.69 10*6/uL 4.35-5.85 Venous blood hemoglobin measurement (mass/volume) 11.4 g/dL 11.5-16.0 Blood hematocrit (volume fraction) 34 % 35-52 Automated erythrocyte mean corpuscular volume 91 [ foz_us] 80-99 Automated erythrocyte mean corpuscular h emoglobin (mass per erythrocyte) 31 pg 25-34 Automated erythrocyte mean corpuscular h emoglobin concentration measurement (mass/volume) 34 g/dL 32-36 Automated erythrocyte distribution width ratio 12. 0 % 10.0- 14.5 Automated blood platelet count (count/volume) 190 10*3/uL [...] 10*3 1.0-4.0 Blood monocytes automated count (number/volume) 0. 6 10*3 0.0-1.0 Automated eosinophil count 0.1 10*3/uL 0 .0-0.3 Automated blood basophil count (count/volume) 0.0 10*3/uL 0.0-0.1 Comprehensive metabolic panel - 01/13/17 21:00 Serum or plasma sodium measurement (moles/volume) 138 mmol/L 135-145 Serum or plasma potassium measurement (moles/volume) 3.5 mmol/L 3.6-5.0 Serum or plasma chloride measurement (moles/volume) 102 mmol/L 98-107 Carbon dioxide 26 mmol/L 21-32 Serum or plasma anion gap determination (moles/volume) 10 mmol/L 5-14 Serum or plasma urea nitrogen measurement (mass/volume ) 27 mg/dL 7-18 Serum or plasma creatinine measurement (mass/volume) 0.84 mg/dL 0.60-1.30 Serum or plasma urea nitrogen/creatinine mass ratio 32 NRG Serum or plasma creatinine measurement w ith calculation of estimated glomerular filtration rate > NRG Serum or plasma glucose measurement (mass/volume) 184 mg/dL 70-105 Serum or plasma calcium measurement (mass/volume) 8.9 mg/dL 8.5-10.1 Serum or plasma total bilirubin measurement (mass/volu me) 0.3 mg/dL 0.1-1.0 Serum or plasma alkaline phosphatase mukul surement (enzymatic activity/volume) 75 U/L 40-136 Serum or plasma aspartate aminotransfera se measurement (enzymatic activity/volume) 25 U/L 5-34 Serum or plasma alanine aminotransferase measurement (enzymatic activity/volume) 19 U/L 0-55 Serum or plasma protein measurement (mass/volume) 6.0 g/dL 6.4-8.2 Serum or plasma albumin measurement (mass/volume) 3.7 g/dL 3.2-4.5 Capillary blood glucose measurement by g lucometer (mass/volume) - 01/13/17 21:47 Capillary blood glucose measurement by glucometer (mas s/volume) 132 mg/dL 70-110 Complete urinalysis with reflex to cultu re - 01/13/17 22:50 Urine color determination YELLOW NRG Urine clarity determination CLEAR NR G Urine pH measurement by test strip 6.5 5-9 Specific gravity of urine by test strip 1.010 1.016-1.022 Urine protein assay by test strip, semi-quantitative 1+ NEGATIVE Urine glucose detection by automated test strip 2+ NEGATIVE Erythrocytes detection in urine sediment by light micr oscopy NEGATIVE NEGATIVE Urine ketones detection by automated test strip NE GATIVE NEGATIVE Urine nitrite detection by test strip NEGATIVE NEGATIVE Urine total bilirubin detection by test strip NEGA TIVE NEGATIVE Urine urobilinogen measurement by automated test strip (mass/volume) 1 mg/dL NORMAL Urine leukocyte esterase detection by dipstick 1+ NEGATIVE Automated urine sediment erythrocyte cou nt by microscopy (number/high power field) NONE NRG Automated urine sediment leukocyte count by microscopy (number/high power field) [HPF] NRG Bacteria detection in urine sediment by light microsco py NEGATIVE NRG Crystals detection in urine sediment by light microsco py NONE NRG Casts detection in urine sediment by light microscopy NONE NRG Mucus detection in urine sediment by light microscopy NEGATIVE NRG Complete urinalysis with reflex to culture NO NRG Capillary blood glucose measurement by g lucometer (mass/volume) - 01/13/17 23:06 Capillary blood glucose measurement by glucometer (mas s/volume) 183 mg/dL 70-110 Capillary blood glucose measurement by g lucometer (mass/volume) - 03/31/17 11:56 Capillary blood glucose measurement by glucometer (mas s/volume) 227 mg/dL 70-110 Complete urinalysis with reflex to cultu re - 03/31/17 12:01 Urine color determination YELLOW NRG Urine clarity determination CLEAR NR G Urine pH measurement by test strip 5 5-9 Specific gravity of urine by test strip 1.020 1.016-1.022 Urine protein assay by test strip, semi-quantitative 1+ NEGATIVE Urine glucose detection by automated test strip 4+ NEGATIVE Erythrocytes detection in urine sediment by light micr oscopy NEGATIVE NEGATIVE Urine ketones detection by automated test strip 2+ NEGATIVE Urine nitrite detection by test strip NEGATIVE NEGATIVE Urine total bilirubin detection by test strip NEGA TIVE NEGATIVE Urine urobilinogen measurement by automated test strip (mass/volume) NORMAL NORMAL Urine leukocyte esterase detection by dipstick 1+ NEGATIVE Automated urine sediment erythrocyte cou nt by microscopy (number/high power field) NONE NRG Automated urine sediment leukocyte count by microscopy (number/high power field) [HPF] NRG Bacteria detection in urine sediment by light microsco py FEW NRG Crystals detection in urine sediment by light microsco py NONE NRG Casts detection in urine sediment [...] 5-14 Serum or plasma urea nitrogen measurement (mass/volume ) 23 mg/dL 7-18 Serum or plasma creatinine measurement (mass/volume) 0.79 mg/dL 0.60-1.30 Serum or plasma urea nitrogen/creatinine mass ratio 29 NRG Serum or plasma creatinine measurement w ith calculation of estimated glomerular filtration rate > NRG Serum or plasma glucose measurement (mass/volume) 263 mg/dL 70-105 Serum or plasma calcium measurement (mass/volume) 9.4 mg/dL 8.5-10.1 Serum or plasma total bilirubin measurement (mass/volu me) 0.6 mg/dL 0.1-1.0 Serum or plasma alkaline phosphatase mukul surement (enzymatic activity/volume) 86 U/L 40-136 Serum or plasma aspartate aminotransfera se measurement (enzymatic activity/volume) 29 U/L 5-34 Serum or plasma alanine aminotransferase measurement (enzymatic activity/volume) 29 U/L 0-55 Serum or plasma protein measurement (mass/volume) 5.9 g/dL 6.4-8.2 Serum or plasma albumin measurement (mass/volume) 3.8 g/dL 3.2-4.5 Complete blood count (CBC) with automate d white blood cell (WBC) differential - 03/31/17 12:57 Blood leukocytes automated count (number/volume) 4.7 10*3/uL 4.3-11.0 Blood erythrocytes automated count (number/volume) 3.85 10*6/uL 4.35-5.85 Venous blood hemoglobin measurement (mass/volume) 11.9 g/dL 11.5-16.0 Blood hematocrit (volume fraction) 34 % 35-52 Automated erythrocyte mean corpuscular volume 89 [ foz_us] 80-99 Automated erythrocyte mean corpuscular h emoglobin (mass per erythrocyte) 31 pg 25-34 Automated erythrocyte mean corpuscular h emoglobin concentration measurement (mass/volume) 35 g/dL 32-36 Automated erythrocyte distribution width ratio 12. 2 % 10.0- 14.5 Automated blood platelet count (count/volume) 192 10*3/uL [...] 10*3 1.0-4.0 Blood monocytes automated count (number/volume) 0. 5 10*3 0.0-1.0 Automated eosinophil count 0.1 10*3/uL 0 .0-0.3 Automated blood basophil count (count/volume) 0.0 10*3/uL 0.0-0.1 Capillary blood glucose measurement by g lucometer (mass/volume) - 03/31/17 15:52 Capillary blood glucose measurement by glucometer (mas s/volume) 401 mg/dL 70-110 Capillary blood glucose measurement by g lucometer (mass/volume) - 03/31/17 20:28 Capillary blood glucose measurement by glucometer (mas s/volume) 354 mg/dL 70-110 Capillary blood glucose measurement by g lucometer (mass/volume) - 04/01/17 05:25 Capillary blood glucose measurement by glucometer (mas s/volume) 427 mg/dL 70-110 Capillary blood glucose measurement by g lucometer (mass/volume) - 04/01/17 11:21 Capillary blood glucose measurement by glucometer (mas s/volume) 279 mg/dL 70-110 Capillary blood glucose measurement by g lucometer (mass/volume) - 04/01/17 15:51 Capillary blood glucose measurement by glucometer (mas s/volume) 144 mg/dL 70-110 Capillary blood glucose measurement by g lucometer (mass/volume) - 04/01/17 20:51 Capillary blood glucose measurement by glucometer (mas s/volume) 64 mg/dL 70-110 Capillary blood glucose measurement by g lucometer (mass/volume) - 04/01/17 21:20 Capillary blood glucose measurement by glucometer (mas s/volume) 79 mg/dL 70-110 Capillary blood glucose measurement by g lucometer (mass/volume) - 04/01/17 23:38 Capillary blood glucose measurement by glucometer (mas s/volume) 101 mg/dL 70-110 Capillary blood glucose measurement by g lucometer (mass/volume) - 04/02/17 05:50 Capillary blood glucose measurement by glucometer (mas s/volume) 135 mg/dL 70-110 Capillary blood glucose measurement by g lucometer (mass/volume) - 04/02/17 11:16 Capillary blood glucose measurement by glucometer (mas s/volume) 335 mg/dL 70-110 Complete blood count (CBC) with automate d white blood cell (WBC) differential - 08/29/17 19:10 Blood leukocytes automated count (number/volume) 4.1 10*3/uL 4.3-11.0 Blood erythrocytes automated count (number/volume) 3.96 10*6/uL 4.35-5.85 Venous blood hemoglobin measurement (mass/volume) 12.6 g/dL 11.5-16.0 Blood hematocrit (volume fraction) 35 % 35-52 Automated erythrocyte mean corpuscular volume 89 [ foz_us] 80-99 Automated erythrocyte mean corpuscular h emoglobin (mass per erythrocyte) 32 pg 25-34 Automated erythrocyte mean corpuscular h emoglobin concentration measurement (mass/volume) 36 g/dL 32-36 Automated erythrocyte distribution width ratio 12. 3 % 10.0- 14.5 Automated blood platelet count (count/volume) 185 10*3/uL [...] 10*3 1.0-4.0 Blood monocytes automated count (number/volume) 0. 4 10*3 0.0-1.0 Automated eosinophil count 0.0 10*3/uL 0 .0-0.3 Automated blood basophil count (count/volume) 0.0 10*3/uL 0.0-0.1 PT panel in platelet poor plasma by coag ulation assay - 08/29/17 19:10 Prothrombin time (PT) in platelet poor plasma by coagu lation assay 13.9 s 12.2-14.7 INR in platelet poor plasma or blood by coagulation as say 1.1 0.8-1.4 Activated partial thromboplastin time (a PTT) in platelet poor plasma bycoagulation assay - 08/29/17 19:10 Activated partial thromboplastin time (a PTT) in platelet poor plasma bycoagulation assay 26 s 24-35 Serum or plasma C reactive protein measu rement (mass/volume) - 08/29/17 19:10 Serum or plasma C reactive protein measurement (mass/v olume) 0.06 mg/dL 0.00-0.50 Comprehensive metabolic panel - 08/29/17 19:10 Serum or plasma sodium measurement (moles/volume) 137 mmol/L 135-145 Serum or plasma potassium measurement (moles/volume) 4.2 mmol/L 3.6-5.0 Serum or plasma chloride measurement (moles/volume) 101 mmol/L 98-107 Carbon dioxide 26 mmol/L 21-32 Serum or plasma anion gap determination (moles/volume) 10 mmol/L 5-14 Serum or plasma urea nitrogen measurement (mass/volume ) 21 mg/dL 7-18 Serum or plasma creatinine measurement (mass/volume) 0.82 mg/dL 0.60-1.30 Serum or plasma urea nitrogen/creatinine mass ratio 26 NRG Serum or plasma creatinine measurement w ith calculation of estimated glomerular filtration rate > NRG Serum or plasma glucose measurement (mass/volume) 266 mg/dL 70-105 Serum or plasma calcium measurement (mass/volume) 9.6 mg/dL 8.5-10.1 Serum or plasma total bilirubin measurement (mass/volu me) 0.5 mg/dL 0.1-1.0 Serum or plasma alkaline phosphatase mukul surement (enzymatic activity/volume) 89 U/L 40-136 Serum or plasma aspartate aminotransfera se measurement (enzymatic activity/volume) 21 U/L 5-34 Serum or plasma alanine aminotransferase measurement (enzymatic activity/volume) 15 U/L 0-55 Serum or plasma protein measurement (mass/volume) 6.7 g/dL 6.4-8.2 Serum or plasma albumin measurement (mass/volume) 4.2 g/dL 3.2-4.5 Magnesium - 08/29/17 19:10 Magnesium 2.2 mg/dL 1.8-2.4 Erythrocyte sedimentation rate by marquita gren method - 08/29/17 19:10 Erythrocyte sedimentation rate by westergren method 10 mm 0- 30 Serum or plasma troponin i.cardiac measu rement (mass/volume) - 08/29/17 19:10 Serum or plasma troponin i.cardiac measurement (mass/v olume) < ng/mL <0.30 Myoglobin, serum - 08/29/17 19:10 Myoglobin, serum 26.7 ng/mL 10.0-92.0 Capillary blood glucose measurement by g lucometer (mass/volume) - 08/29/17 21:34 Capillary blood glucose measurement by glucometer (mas s/volume) 241 mg/dL 70-110 Capillary blood glucose measurement by g lucometer (mass/volume) - 08/30/17 05:27 Capillary blood glucose measurement by glucometer (mas s/volume) 304 mg/dL 70-110 Complete blood count (CBC) with automate d white blood cell (WBC) differential - 08/30/17 06:00 Blood leukocytes automated count (number/volume) 3.7 10*3/uL 4.3-11.0 Blood erythrocytes automated count (number/volume) 3.90 10*6/uL 4.35-5.85 Venous blood hemoglobin measurement (mass/volume) 12.0 g/dL 11.5-16.0 Blood hematocrit (volume fraction) 35 % 35-52 Automated erythrocyte mean corpuscular volume 90 [ foz_us] 80-99 Automated erythrocyte mean corpuscular h emoglobin (mass per erythrocyte) 31 pg 25-34 Automated erythrocyte mean corpuscular h emoglobin concentration measurement (mass/volume) 34 g/dL 32-36 Automated erythrocyte distribution width ratio 12. 5 % 10.0- 14.5 Automated blood platelet count (count/volume) 186 10*3/uL [...] 10*3 1.0-4.0 Blood monocytes automated count (number/volume) 0. 4 10*3 0.0-1.0 Automated eosinophil count 0.1 10*3/uL 0 .0-0.3 Automated blood basophil count (count/volume) 0.0 10*3/uL 0.0-0.1 Whole blood basic metabolic panel - 08/03 11/19 06:20 Serum or plasma sodium measurement (moles/volume) 136 mmol/L 135-145 Serum or plasma potassium measurement (moles/volume) 4.3 mmol/L 3.6-5.0 Serum or plasma chloride measurement (moles/volume) 102 mmol/L 98-107 Carbon dioxide 25 mmol/L 21-32 Serum or plasma anion gap determination (moles/volume) 9 mmol/L 5-14 Serum or plasma urea nitrogen measurement (mass/volume ) 19 mg/dL 7-18 Serum or plasma creatinine measurement (mass/volume) 0.80 mg/dL 0.60-1.30 Serum or plasma urea nitrogen/creatinine mass ratio 24 NRG Serum or plasma creatinine measurement w ith calculation of estimated glomerular filtration rate > NRG Serum or plasma glucose measurement (mass/volume) 332 mg/dL 70-105 Serum or plasma calcium measurement (mass/volume) 9.1 mg/dL 8.5-10.1 Lipid 1996 panel - 08/30/17 06:20 Serum or plasma triglyceride measurement (mass/volume) 63 mg/dL <150 Serum or plasma cholesterol measurement (mass/volume) 154 mg/dL < 200 Serum or plasma cholesterol in HDL measurement (mass/v olume) 60 mg/dL 40-60 Cholesterol in LDL [mass/volume] in serum or plasma by direct assay 78 mg/dL 1-129 Serum or plasma cholesterol in VLDL measurement (mass/ volume) 13 mg/dL 5-40 Capillary blood glucose measurement by g lucometer (mass/volume) - 08/30/17 08:54 Capillary blood glucose measurement by glucometer (mas s/volume) 288 mg/dL 70-110 Comprehensive metabolic panel - 09/03/17 09:01 Serum or plasma sodium measurement (moles/volume) 139 mmol/L 135-145 Serum or plasma potassium measurement (moles/volume) 4.4 mmol/L 3.6-5.0 Serum or plasma chloride measurement (moles/volume) 106 mmol/L 98-107 Carbon dioxide 26 mmol/L 21-32 Serum or plasma anion gap determination (moles/volume) 7 mmol/L 5-14 Serum or plasma urea nitrogen measurement (mass/volume ) 24 mg/dL 7-18 Serum or plasma creatinine measurement (mass/volume) 0.76 mg/dL 0.60-1.30 Serum or plasma urea nitrogen/creatinine mass ratio 32 NRG Serum or plasma creatinine measurement w ith calculation of estimated glomerular filtration rate > NRG Serum or plasma glucose measurement (mass/volume) 149 mg/dL 70-105 Serum or plasma calcium measurement (mass/volume) 9.0 mg/dL 8.5-10.1 Serum or plasma total bilirubin measurement (mass/volu me) 0.6 mg/dL 0.1-1.0 Serum or plasma alkaline phosphatase mukul surement (enzymatic activity/volume) 67 U/L 40-136 Serum or plasma aspartate aminotransfera se measurement (enzymatic activity/volume) 20 U/L 5-34 Serum or plasma alanine aminotransferase measurement (enzymatic activity/volume) 14 U/L 0-55 Serum or plasma protein measurement (mass/volume) 5.9 g/dL 6.4-8.2 Serum or plasma albumin measurement (mass/volume) 3.9 g/dL 3.2-4.5 Lipid 1996 panel - 09/03/17 09:01 Serum or plasma triglyceride measurement (mass/volume) 53 mg/dL <150 Serum or plasma cholesterol measurement (mass/volume) 150 mg/dL < 200 Serum or plasma cholesterol in HDL measurement (mass/v olume) 59 mg/dL 40-60 Cholesterol in LDL [mass/volume] in serum or plasma by direct assay 71 mg/dL 1-129 Serum or plasma cholesterol in VLDL measurement (mass/ volume) 11 mg/dL 5-40 THYROID STIMULATING HORMONE - 09/03/17 0 9:01 THYROID STIMULATING HORMONE 0.92 u[iU]/mL 0.35-4.94 Hemoglobin A1c - 09/03/17 09:01 Blood hemoglobin A1C measurement (mass/volume) 7.6 % 4.0-5.6 MEAN BLOOD GLUCOSE 171 % <=126 Urine microalbumin measurement by test s trip (mass/volume) - 09/03/17 09:13 Urine creatinine measurement (mass/volume) 65 % NRG Microalbumin [mass/volume] in urine 8.3 % 0.0-20.0 Microalbumin/creatinine [ratio] in urine 12.8 mg/g {Cre} 0.0- 30.0 Capillary blood glucose measurement by g lucometer (mass/volume) - 09/28/17 10:40 Capillary blood glucose measurement by glucometer (mas s/volume) 62 mg/dL 70-110 Capillary blood glucose measurement by g lucometer (mass/volume) - 09/28/17 11:14 Capillary blood glucose measurement by glucometer (mas s/volume) 104 mg/dL 70-110 Capillary blood glucose measurement by g lucometer (mass/volume) - 09/28/17 11:52 Capillary blood glucose measurement by glucometer (mas s/volume) 144 mg/dL 70-110 Capillary blood glucose measurement by g lucometer (mass/volume) - 12/28/18 15:34 Capillary blood glucose measurement by glucometer (mas s/volume) 226 mg/dL 70-110 Capillary blood glucose measurement by g lucometer (mass/volume) - 12/28/18 16:21 Capillary blood glucose measurement by glucometer (mas s/volume) 97 mg/dL 70-110 Capillary blood glucose measurement by g lucometer (mass/volume) - 12/28/18 16:46 Capillary blood glucose measurement by glucometer (mas s/volume) 119 mg/dL 70-110 Encounters ACCT No. Visit Date/Time Discharge Status Pt. Type Provider Facility Loc./Unit Complaint [id number] 04/15/2019 14:45:00 020 15:30:00 DIS Outpatient DYLLAN MILLER [facility] REHAB R ARM PAIN/ARTH RITIS [id number] 12/28/2018 15:27:00 16:55:00 DIS Emergency CLEMENCIA MCKEON, JEFF Duran [facility] ER LOW BLOOD SUGAR [id number] 2018 06:49:00 23:59:59 CLS Outpatient YECENIA MCKEON FACC, CHEN GRAHAM CC DS [facility] CARD CAD [id number] 09/28/2017 10:36:00 018 12:05:00 DIS Emergency FAYROBERT APRN [facility] ER LOW BLOOD SUGAR [id number] 09/03/2017 08:41:00 018 23:59:59 CLS Outpatient YUNIOR JOYNER MD [facility] LAB I10 [id number] 08/29/2017 20:26:00 018 11:00:00 DIS Inpatient YUNIOR JOYNER MD [facility] ICU HIGH BP [id number] 07/23/2017 14:33:00 018 23:59:59 CLS Outpatient YECENIA MCKEON FACC, CHEN GRAHAM CC DS [facility] RAD I73.9 TITO ICATION [id number] 05/30/2017 13:45:00 018 23:59:59 CLS Outpatient TOM MARQUES [facility] CARD CAD I25.10 [id number] 03/31/2017 13:23:00 018 16:00:00 DIS Inpatient YUNIOR JOYNER MD [facility] 4TH SCIATICA, INTRACTABLE B ACK PAIN [id number] 01/13/2017 20:57:00 017 23:18:00 DIS Emergency PACHECO MCKEON, ATUL Mccall [facility] ER BS [id number] 12/02/2016 10:00:00 017 23:59:59 CLS Preadmit YUNIOR JOYNER MD [facility] DSME TYPE 1 DIABETES [id number] 10/22/2016 10:26:00 017 00:46:00 DIS Outpatient YUNIOR JOYNER MD [facility] DSME TYPE 1 DIABETES [id number] 10/22/2016 10:27:00 017 23:59:59 CLS Outpatient YUNIOR JOYNER MD [facility] RAD THYROID ENLARGEMENT [id number] 10/01/2016 14:43:00 23:59:59 CLS Outpatient DYLLAN MILLER [facility] RAD COUGH [id number] 06/18/2016 03:09:00 04:55:00 DIS Emergency FRANCIS MCKEON, YOUSIF Snow [facility] ER BS [id number] 05/14/2016 08:32:00 23:59:59 CLS Outpatient YUNIOR JOYNER MD [facility] LAB HTN,HYPOTHYROID [id number] 04/05/2016 09:51:00 23:59:59 CLS Outpatient DORIAN TORRES MD [facility] RAD MULTINODULAR GOITER [id number] 02/08/2016 11:48:00 23:59:59 CLS Outpatient ANJU FRANCIS APRN [facility] RAD SCREENING [id number] 12/28/2015 08:00:00 016 23:59:59 CLS Outpatient TOM MARQUES [facility] LAB CAD,HYPERLIPIDE NADER,CAROTID ARTERIAL DISEASE [id number] 11/15/2015 08:07:00 016 23:59:59 CLS Outpatient TOM MARQUES [facility] CARD CAD,HTN,HLP,MAL AISE [id number] 08/15/2015 11:00:00 016 23:59:59 CLS Outpatient DORIAN TORRES MD [facility] RAD MULTINODULAR GOITER [id number] 05/30/2015 13:05:00 016 14:29:00 DIS Outpatient YUNIOR JOYNER MD [facility] REHAB BACK PAIN [id number] 04/04/2015 07:59:00 016 23:59:59 CLS Outpatient YECENIA MCKEON FACC, CHEN GRAHAM CC DS [facility] LAB CAD,HLP [id number] 11/30/2014 10:53:00 015 23:59:59 CLS Outpatient YUNIOR JOYNER MD [facility] RAD SCREENING [id number] 11/15/2014 11:32:00 015 23:59:59 CLS Outpatient YUNIOR JOYNER MD [facility] RAD HAND PAIN,BACK PAIN,SC REENING [id number] 09/15/2014 08:41:00 015 23:59:59 CLS Outpatient TOM MARQUES [facility] LAB CAD,HLP [id number] 06/21/2014 09:59:00 015 23:59:59 CLS Outpatient DORIAN TORRES MD [facility] RAD MULTINODULAR GOITER [id number] 03/03/2014 09:07:00 014 23:59:59 CLS Outpatient TOM MARQUES [facility] LAB HYPERLIPADEMIA [id number] 10/26/2013 14:53:00 014 23:59:59 CLS Outpatient SIENA JOVEL MD [facility] RAD ROUTINE [id number] 10/15/2013 07:43:00 014 23:59:59 CLS Outpatient YECENIA MCKEON FACC, CHEN GRAHAM CC DS [facility] CARD HTN,HLP,CAD [id number] 09/28/2013 08:48:00 014 23:59:59 CLS Outpatient DORIAN TORRES MD [facility] RAD THYROID NODULE [id number] 09/02/2013 08:19:00 014 23:59:59 CLS Outpatient SIENA JOVEL MD [facility] LAB UNSPECIFIED HYPERLIPIEDIMA,DIABETES MELLITUS [id number] 09/02/2013 08:12:00 014 23:59:59 CLS Outpatient CHEN KEENE MD, FACC, FACP CC DS [facility] LAB RETINAL HEMORRHAGE,PATENT FORAMEN OVALE,PAROXYSMAL [id number] 01/13/2013 09:37:00 013 23:59:59 CLS Outpatient DORIAN TORRES MD [facility] LAB FATIGUE,MONITORING GATE [id number] 01/08/2013 09:38:00 23:59:59 CLS Outpatient CANDIE FRANCIS APRN [facility] RAD CALCIFIED RIGHT THYROI D LOBE 5 MO RECHECK [id number] 11/06/2012 07:13:00 23:59:59 CLS Outpatient YECENIA MCKEON FACC, CHEN GRAHAM CC DS [facility] RAD HX OF MOD C AD [id number] 10/22/2012 08:10:00 23:59:59 CLS Outpatient TOM MARQUES [facility] LAB CAD,HYPERLIPIDEMIA,DM,STATIN [place] [id number] 10/13/2012 13:20:00 23:59:59 CLS Outpatient SIENA JOVEL MD [facility] RAD SIX MONTH FOLLO W-UP [id number] 08/21/2012 10:11:00 23:59:59 CLS Outpatient DORIAN TORRES MD [facility] RAD MULTI-NODULAR GOITER [id number] 07/29/2012 10:50:00 23:59:59 CLS Outpatient DORINA TORRES MD [facility] RAD RT LOBE THYROID NODULE [id number] 10/06/2017 09:47:00 Document Registration [id number] 03/03/2014 09:06:00 Document Registration [id number] 06/04/2012 23:40:00 Document Registration [id number] 04/24/2012 13:04:00 Document Registration [id number] 04/08/2012 09:46:00 Document Registration [id number] 03/26/2012 07:47:00 Document Registration [id number] 12/21/2011 10:26:00 Document Registration [id number] 09/24/2011 06:31:00 Document Registration [id number] 09/19/2011 07:23:00 Document Registration [id number] 04/30/2011 13:00:00 Document Registration [id number] 03/26/2011 09:06:00 Document Registration [id number] 02/28/2011 08:42:00 Document Registration [id number] 02/22/2011 13:30:00 Document Registration [id number] 01/01/2011 06:26:00 Document Registration [id number] 08/10/2010 07:35:00 Document Registration [id number] 03/01/2010 14:55:00 Document Registration [id number] 02/22/2010 08:13:00 Document Registration [id number] 08/11/2009 07:46:00 Document Registration [id number] 02/03/2009 07:38:00 Document Registration [id number] 01/13/2009 13:37:00 Document Registration [id number] 12/06/2008 11:16:00 Document Registration
--- NOTE | 2019-06-14 18:02 | Diagnostic Imaging Report ---
CLINICAL INDICATION: Patient with right hip pain. Patient fell on and has had increasing pain since. EXAMS: 1: CT scan of the lumbar spine performed without IV contrast. Coronal and sagittal reformatted images were created. Auto Exposure Controls were utilized during the CT exam to meet ALARA standards for radiation dose reduction. 2: CT scan of the pelvis without IV contrast with sagittal and coronal reformatted images. Auto Exposure Controls were utilized during the CT exam to meet ALARA standards for radiation dose reduction. COMPARISON: CT scan of the lumbar spine without contrast dated 03/31/2017. FINDINGS: CT lumbar spine: There is interval development of a burst fracture predominantly involving the inferior aspect of the T12 vertebra which demonstrates very subtle posterior extension of the mid to inferior aspect of the vertebra. There is only minimal encroachment upon the thecal sac. There is roughly 10-15% loss of height noted. There is no other lumbar spine fracture or dislocation. There is stable levoscoliosis of the lumbar spine with multilevel degenerative disease. There is interval healing of the previously seen fractured hypertrophic right lateral spur involving the upper L2 endplate region. Again seen are postop changes to the lower lumbar spine with L4-L5 posterior lumbar interbody fusion with no hardware fracture or osteolysis. There is solid intervertebral bony bridging/fusion at the L4-L5 level. There is multilevel lumbar spinal degenerative disease or hypertrophic spurs and facet arthropathy again seen. L4-L5 laminotomies are noted. There is no significant change to the severe bilateral neural foramen narrowing at the L3-L4 level, right L2-L3 neural foramen narrowing and left L5-S1 neural foramen narrowing. There is moderate right L1-L2 neural foramen and right L5-S1 neural foraminal region. There is at least moderate central canal stenosis at the L2-L3 and L3-L4 levels is also noted on the prior study. There is no significant paraspinal soft tissue abnormality. CT pelvis: There are postoperative changes at L4-L5 posterior spinal interbody fusion hardware, as described above. There is no acute fracture dislocation of the pelvis or hips. Sacrum is intact with no fracture seen. There is sclerosis and spurring of the sacroiliac joints. Bone graft defect is seen involving the posterior right iliac crest. There is mildly hypertrophic spurs involving the bilateral proximal femoral head/neck junction regions. There is degenerative spurring of the acetabular regions. There is spurring of the symphysis pubis region. The visualized intrapelvic and extrapelvic soft tissue structures are unremarkable. IMPRESSION: 1: There is an acute burst fracture involving the inferior aspect of the T12 vertebra with mild loss of height and minimal encroachment upon the central canal. 2: There is no other acute lumbar spine fracture. 3: There is no pelvic, hip or sacral fracture. 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 5: Stable L4-L5 posterior lumbar interbody fusion. Results of this report were discussed with Jona Morales APRN via the telephone on 06/14/2019 at 1745 hours. Dictated by: Dictated on workstation # [id number]
[2019-06-14] MEDS ORDERED: TRAM-42 PO (18:03)
[2019-06-14] MEDS ORDERED: RX-TRAMADOL 50 MG (ULTRAM) TAB PPK#4 PO STA (18:14)
[2019-06-14 18:39] VITALS: BP 174/75
[2019-06-17] MEDS ORDERED: HYDR12.56 PO (13:31)
[2019-06-17] MEDS ORDERED: CALC600T12 PO (13:31)
[2019-06-17] MEDS ORDERED: OMEG-179 PO (13:31)
[2019-06-17] MEDS ORDERED: INSU100I10 SQ (13:31)
[2019-06-17] MEDS ORDERED: DOXA2TAB2 PO (13:31)
[2019-06-17] MEDS ORDERED: TRAM50TA3 PO (13:31)
[2019-06-17] MEDS ORDERED: MULT-1136 PO (13:31)
[2019-06-17] MEDS ORDERED: PRED5DRO24 OU (13:31)
== END 2019-06-14 18:39 | disposition home or self-care (01) ==
LOC: EDUNIT# 16:30 → ER 16:31
DX: S22.081A Stable burst fracture of T11-T12 vertebra, initial encounter for closed fracture (principal); I10 Essential (primary) hypertension; E11.9 Type 2 diabetes mellitus without complications; I25.10 Atherosclerotic heart disease of native coronary artery without angina pectoris; F41.9 Anxiety disorder, unspecified; F32.9 Major depressive disorder, single episode, unspecified; Z79.82 Long term (current) use of aspirin; Z79.4 Long term (current) use of insulin; Z95.5 Presence of coronary angioplasty implant and graft; Z82.49 Family history of ischemic heart disease and other diseases of the circulatory system; W19.XXXA Unspecified fall, initial encounter
CPT/HCPCS: 72131; 72192; 82962